=== PATIENT | female | born 1945 | race Caucasian/White ===

== ENCOUNTER 2024-03-03 14:05 | Inpatient (IN) | payer OTHER, SELFPAY ==
--- NOTE | ~2024-03-03 | XR_ITS ---
EXAMINATION: XR CHEST 2 VIEWS HISTORY: SOB R/O pneumonia COMPARISON: There are no prior studies for comparison. FINDINGS: PA and lateral views of the chest are submitted. The lateral view is limited by low lung volumes. The lungs are expanded and clear. There is no pleural effusion, pneumothorax, or pulmonary vascular congestion. The heart is normal in size. The aorta is tortuous. There is degenerative disc disease of the spine. XR/XR chest 2V IMPRESSION: Clear lungs. Electronically signed by: Micheal Barreto MD 04/21/2024 03:04 PM NOREEN MEZA
--- NOTE | ~2024-03-03 | CT_ITS ---
CLINICAL HISTORY: AMS CT head without contrast Comparison: CT/SR - CT HEAD/BRAIN WO IV CON - 04/25/24 18:51 EST Findings: Involutional change and nonspecific white matter hypodensity. No intracranial mass, midline shift, hydrocephalus, or acute hemorrhage. Orbits, paranasal sinuses, and mastoid air cells are unremarkable. No skull fracture Impression: 1. No acute findings This document has been electronically signed by: Leonie Juarez MD on 05/13/2024 18:30:13
--- NOTE | ~2024-03-03 | CT_ITS ---
CLINICAL HISTORY: ams CT head without contrast Comparison: CT/[place]/SR - CT HEAD/BRAIN WO IV CON - 05/23/24 10:14 EDT Findings: Age-appropriate atrophy is again identified. The size and shape of the ventricular system is within normal limits for this degree of atrophy. Unchanged areas of low-attenuation within the deep white matter. Plummer-white differentiation is well preserved. No midline shift or mass effect. No intracranial hemorrhage. 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 IMPRESSION: 1. No acute intracranial findings. Specifically, no hemorrhage or acute territorial infarct. This document has been electronically signed by: Trell Schwab MD on 06/02/2024 07:19:09
--- NOTE | ~2024-03-03 | XR_ITS ---
CLINICAL HISTORY: Fall in room 5 view, pelvis and bilateral hips Comparison: None Findings: No acute fracture or dislocation. Degenerative changes of the lower lumbar spine. The soft tissues are unremarkable. IMPRESSION: No acute findings. This document has been electronically signed by: Srinath Coburn MD on 04/25/2024 19:41:33
--- NOTE | ~2024-03-03 | CT_ITS ---
CLINICAL HISTORY: Hypoxia and tachycardia CT angiography chest with contrast. 3D Postprocessing. Comparison: None Findings: The heart is top normal in size. RV/LV ratio is normal. No aneurysm of thoracic aorta. Main pulmonary artery is within normal limits in size. No acute central pulmonary embolus. Somewhat limited evaluation of peripheral pulmonary emboli especially toward the bases. Apparent ground-glass opacities are demonstrated which could be artifactual due to motion but the possibility of mild atypical pneumonia or edema not excluded. Bilateral basilar mild subsegmental atelectasis versus scarring. No pleural effusion or pneumothorax Thyroid is small. Thoracic esophagus within limits. The visualized upper abdomen demonstrates no acute process No acute osseous findings IMPRESSION: 1. No pulmonary emboli with somewhat limited evaluation of peripheral pulmonary embolism especially toward the lung bases. 2. Mild ground-glass opacities could be artifactual or may represent mild edema or atypical pneumonia. This document has been electronically signed by: Callie Mart MD on 05/29/2024 21:36:11
--- NOTE | ~2024-03-03 | CT_ITS ---
CLINICAL HISTORY: head strike, occipital CT of the head without intravenous contrast Comparison: CT/SR - CT HEAD/BRAIN WO IV CON - 05/13/24 17:58 EDT Findings: The ventricles and sulci are prominent, consistent with generalized cerebral parenchymal volume loss. The ventricles are symmetric and the basilar cisterns are intact. Mild periventricular, deep and subcortical white matter hypodensities are nonspecific but statistically reflect the sequela of chronic small vessel ischemic change. No intracranial hemorrhage, extra-axial fluid collection, midline shift or mass-effect is evident. No evidence of acute large vessel or territorial ischemia. Brainstem and cerebellum unremarkable. Vascular calcifications indicate intracranial atherosclerosis. The imaged portion of the paranasal sinuses are clear. No mastoid effusions are demonstrated. The orbital contents are unremarkable. Calvarium is intact. Hyperostosis frontalis. Impression: 1. No CT evidence of acute intracranial abnormality. 2. Cerebral volume loss, intracranial atherosclerotic disease and mild sequela of chronic small vessel ischemic disease. This document has been electronically signed by: Kody Perez MD on 05/23/2024 11:28:49
--- NOTE | ~2024-03-03 | CT_ITS ---
CLINICAL HISTORY: Fall in room with possible headstrike CT cervical spine without contrast Comparison: None Findings: Normal vertebral body alignment. Straightening of the cervical lordosis with multilevel degenerative changes of the cervical spine. No acute fractures or dislocations. No acute findings on limited view of the intracranial contents. No cervical fluid collections or masses. No consolidation or effusion at the lung apices. IMPRESSION: No acute findings. This document has been electronically signed by: Srinath Coburn MD on 04/25/2024 19:47:29
--- NOTE | ~2024-03-03 | CT_ITS ---
CLINICAL HISTORY: desaturation CT chest without contrast Comparison: CR/SR - XR CHEST 2V - 04/21/24 14:51 EST Findings: Examination limited and degraded by motion artifact. The heart size is normal. No significant pericardial effusion. Atherosclerotic vascular disease. No aneurysm of thoracic aorta. Limited evaluation of lung parenchyma due to motion artifact. Apparent mild ground-glass opacities which could be artifactual. Bilateral basilar mild opacities likely subsegmental atelectasis versus scarring. No consolidation, pleural effusion or pneumothorax. Thyroid is small. Thoracic esophagus within normal limits. The visualized upper abdomen demonstrates no acute process. No acute fractures. Degenerative changes of the spine. IMPRESSION: 1. Evaluation limited by motion artifact. Apparent mild ground-glass opacities could be artifactual. 2. Mild bilateral basilar subsegmental atelectasis versus scarring. This document has been electronically signed by: Callie Mart MD on 05/29/2024 17:23:18
--- NOTE | ~2024-03-03 | CT_ITS ---
CLINICAL HISTORY: Fall with possible headstrike CT Brain without contrast Comparison: None FINDINGS: Cortical sulci: There is diffuse prominence of the cortical sulci compatible with age-related atrophy. Ventricles: Normal for age Brain parenchyma: There is patchy lucency throughout the deep white matter indicating chronic microvascular leukomalacia. Small left lacunar infarction. Extra axial spaces: Normal Posterior Fossa: Normal Extracranial soft tissues: Normal Additional abnormality: None IMPRESSION: Age-related atrophy with chronic microvascular leukomalacia. No hemorrhage, mass effect, or acute findings identified. This document has been electronically signed by: Srinath Coburn MD on 04/25/2024 19:42:29
--- NOTE | ~2024-03-03 | CT_ITS ---
CLINICAL HISTORY: AMS CT angiography head and neck with contrast. MIP postprocessing. Comparison: CT/SR - CT HEAD FOR STROKE - 06/02/24 07:01 EDT Findings: Aortic arch and cervical great vessels are patent with no aneurysm, dissection, hemodynamically significant stenoses, or occlusion. Dominant left vertebral artery. Intracranial arteries are patent. No aneurysm, dissection, hemodynamically significant stenoses, or occlusion. origin to the left posterior cerebral artery. No abnormal intracranial enhancement. Air-filled distention of the proximal thoracic esophagus with mild esophageal wall thickening. Nonspecific areas of hazy density within the lung apices. Small left pleural effusion. No acute bony lesions. Moderate to severe degenerative change throughout the cervical spine. IMPRESSION: 1. No large vessel occlusion or hemodynamically significant stenosis identified. 2. Vascular variant anatomy as above. 3. Air-filled distention of the thoracic esophagus with esophageal wall thickening suggesting esophageal dysmotility or esophageal narrowing with esophagitis. Barium esophagram could further evaluate. This document has been electronically signed by: Trell Schwab MD on 06/02/2024 07:49:57
[2024-03-03 14:15] VITALS: BP 126/62; PULSE 59; O2SAT 96
--- NOTE | 2024-03-03 14:15 | ED.GENADULT ---
HPI - General Adult General Chief complaint: Behavioral Concerns Stated complaint: INC AGGRESSION Time Seen by Provider: 03/03/24 14:15 Source: patient and EMS Mode of arrival: EMS Limitations: physical limitation (patient has slurred speech / deficit at baseline after subdural hematoma) History of Present Illness ED Provider: Phylicia Rojas PA-C HPI narrative: Patient is a 78 year old assigned female at with a history of subdural hemorrhage, dementia, HLD, glaucoma, hearing loss, slurred speech, epilepsy, and hypothyroidism presenting to the emergency department today with increased aggression towards the staff at her longterm facility. Patient states that she has no complaints at this time. Related Data Allergies Allergy/AdvReac Type Severity Reaction Status Date / Time sulfamethoxazole Allergy Unknown Verified 03/03/24 14:32 [From Sulfamethoxazole-Trimethoprim] trimethoprim Allergy Unknown Verified 03/03/24 14:32 [From Sulfamethoxazole-Trimethoprim] Review of Systems Constitutional: Constitutional: Reports no additional constitutional complaints, Denies chills, Denies fever(s) and Denies night sweats Eyes: Eyes: Reports no additional eye complaints, Denies blurry vision, Denies change in vision, Denies diplopia, Denies eye discharge, Denies loss of vision and Denies eye pain ENT: Denies dizziness Cardiovascular: Cardiovascular: Reports no additional cardiovascular complaints, Denies chest pain, Denies lightheadedness, Denies Loss of Consciousness and Denies dyspnea Respiratory: Respiratory: Reports no additional respiratory complaints and Denies dyspnea Gastrointestinal: Gastrointestinal: Reports no additional gastrointestinal complaints, Denies abdominal pain, Denies melena, Denies hematochezia, Denies change in bowel habits and Denies change in stool character Genitourinary: Genitourinary: Denies hematuria, Denies urinary frequency, Denies dysuria, Denies urinary incontinence, Denies urinary hesitancy and Denies urinary urgency Musculoskeletal: Musculoskeletal: Reports no additional musculoskeletal complaints, Denies numbness and Denies tingling Neurologic: Reports confusion (chronic for the patient - per her demented baseline), Denies dizziness, Denies loss of vision, Denies numbness and Denies tingling Psychiatric: Psychiatric: Reports no additional psychiatric complaints and Reports confusion (chronic for the patient - per her demented baseline) Endocrine: Endocrine: Reports no additional endocrine complaints Hematologic/Lymphatic: Hematologic/Lymphatic: Reports no additional hematologic/lymphatic complaints Allergic/Immunologic: Allergic/Immunologic: Reports no additional allergic/immunologic complaints PMFSH Past Medical History Attestation statement: The following information was validated with the patient. Source: old records reviewed, nursing notes reviewed and other (SNF staff provided additional history) Social History Social History Alcohol intake: former Smoked in Last 30 Days: No Use of substances other than those prescribed or required for medical reasons: No Advance Directives: No Advance Directives Information Provided: Yes Physical Exam ED Vital Signs: Vital Signs - 24 hr 03/03/24 14:28 Temperature 97.9 F Pulse Rate 71 Respiratory Rate 18 Blood Pressure 144/84 H Pulse Oximetry 96 Oxygen Delivery Method Room Air BMI result Body Mass Index 23.3 Const General: confusion (chronic for the patient - per her demented baseline) Nutritional Appearance: well nourished Orientation/consciousness: oriented to person and confusion (chronic for the patient - per her demented baseline) Limitations: no limitations HENMT Head: Yes normal to inspection and Yes atraumatic Ears: hearing grossly normal bilaterally and external ears normal General nose exam: Normal external nose present, no nasal discharge noted and no epistaxis Face and sinus: Yes normal facial exam, No abrasion and No laceration Mouth: Normal oral and palatal mucosa present, no drooling and no muffled voice Eyes General: appearance normal, both eyes and all related structures Periorbital: periorbital findings normal Eyelids: Yes eyelids normal Conjunctivae: conjunctivae normal Pupils: Equal, round and reactive pupils present EOM: EOMs intact bilaterally Neck Neck: Yes normal visual inspection, Yes full ROM and Yes no lymphadenopathy Chest Chest palpation & inspection: normal inspection of the chest Resp Effort & Inspection: normal respiratory effort and able to speak in complete sentences GI Inspection: Yes normal to inspection Neuro Other: left sided facial droop - chronic for the patient, not acute. General: oriented to person and confusion (chronic for the patient - per her demented baseline) Cranial nerves: Yes Equal, round and reactive pupils present Extrem General: Yes normal to inspection, Yes full ROM and Yes capillary refill normal Psych Appearance: grossly normal Mental Status: mental status grossly normal Affect: normal affect Attitude: cooperative Thought process: Normal thought process present Thought content: Normal thought content present Insight: Good insight present (Psych) Medications Administered Discontinued Medications Generic Name Dose Route Start Last Admin Trade Name Lenora PRN Reason Stop Dose Admin Olanzapine 5 mg 03/03/24 14:52 03/03/24 14:58 Olanzapine 5 Mg Tablet PO 03/03/24 14:53 5 mg ONCE ONE Administration Medical Decision Making Medical Decision Making [facility] Narrative: Patient is a 78 year old assigned female at with a history of subdural hemorrhage, dementia, HLD, glaucoma, hearing loss, slurred speech, epilepsy, and hypothyroidism presenting to the emergency department today with increased aggression towards the staff at her longterm facility. Patient's physical exam is consistent with her baseline. I reviewed the patient's [facility] medical records. Patient has been seen numerous times for increased aggression to staff with a complete and thorough medical work up showing no acute process for this agitation and determined to be her vascular dementia. Patient's most recent head CT from 03/01/2024 showed no acute intracranial process. Patient's labs from 02/27/2024 showed no acute process as well as a normal urine with no evidence of infection. I suspect the patient is having intermittent episodes of agitation towards the longterm staff and thus they continue to send her to various emergency departments for evaluation and have been unhappy so far with what has been done to address the agitation. When reviewing the patient's medications - she is on multiple doses of Zyprexa 2.5mg, Lorazepam, Depakote, and Trazadone. Patient was mostly calm while in the department, speaking in her normal (semi slow and slurred) speech pattern - declining any complaints and requesting to go home. Patient did become increasingly tearful when asking to get home and slightly agitated as she was told she could not leave the department. PO Zyprexa ordered. Patient's labs are unremarkable. Patient needs to be evaluated by psychiatry. Case management aware of patient and will follow. I called and spoke with Jana ([phone]), the patient's daughter, who expressed frustration that the patient has been sent to multiple facilities for these episodes and is not improving. She stated the SNF staff spoke with her today and informed her that if the patient's insurance doesn't agree to pay for treatment - she'd be immediately discharged. Daughter states that she agrees with patient having basic labs and a psychiatry evaluation performed. Daughter states that she will keep her phone on / nearby for any possible questions / concerns from [facility] staff. Patient's UA is pending. Patient signed out to evening MESSI pending urine and psychiatry consult. Differential Diagnosis Differential Diagnoses: The differential diagnosis associated with the presentation includes Agitation Aggressive outbursts Admission/Observation Consideration of admission/observation: Escalation of care including admission/observation considered Patient's disposition will be determined after UA results, psychiatric evaluation, and case management evaluation. Lab Data [facility] Lab Attestation statement: I reviewed the patient's lab results. My interpretation of these results are in the [facility] Rationale portion of this note. 03/03/24 14:57 03/03/24 14:57 Labs: Lab Results 03/03/24 Range/Units 14:57 WBC 9.0 (4.8-10.8) X10*3/uL RBC 3.96 L (4.20-5.50) X10*6/uL Hgb 12.2 (12.0-16.0) g/dl Hct 37.7 (37.0-47.0) % MCV 95.2 (80.0-98.0) fL MCH 30.8 (27.0-33.0) pg MCHC 32.4 (31.0-35.0) g/dl RDW 16.4 H (11.0-16.0) % Plt Count 136 L (160-400) X10*3/uL MPV 11.4 (9.4-12.3) fL Immature Gran % (Auto) 0.2 (0.0-0.4) % Neut % (Auto) 34.1 L (45-73) % Lymph % (Auto) 55.1 H (20-40) % Latimer % (Auto) 9.4 (2-11) % Eos % (Auto) 0.9 (0-4) % Baso % (Auto) 0.3 (0-2) % Lymph # (Auto) 5.0 H (1.2-4.9) X10*3/uL Latimer # (Auto) 0.9 (0.1-1.2) X10*3/uL Eos # (Auto) 0.1 (0.0-0.4) X10*3/uL Baso # (Auto) 0.0 (0.0-0.2) X10*3/uL Abs Immat Gran (auto) 0.02 (0.00-0.03) X10*3/uL Absolute Neuts (auto) 3.1 (2.0-8.3) x10*3/uL Absolute Nucleated RBC 0.000 (0.0-0.012) X10*3/uL Nucleated RBC % (auto) 0.0 (0.0-0.2) /100WBC Sodium 143 (135-145) mmol/L Potassium 4.0 (3.3-5.1) mmol/L Chloride 107 (96-108) mmol/L Carbon Dioxide 30 H (22-29) mmol/L Anion Gap 10 L (12-20) BUN 22 H (9-16) mg/dL Creatinine 0.91 (0.5-1.4) mg/dL Estim Creat Clear Calc 45.1 Estimated GFR 60 Random Glucose 94 (60-115) mg/dL Calcium 8.7 (8.4-10.2) mg/dL Magnesium 2.4 (1.6-2.6) mg/dL Total Bilirubin 0.6 (0.0-1.0) mg/dL AST 24 (5-31) U/L ALT 19 (0-31) U/L Total Protein 6.2 L (6.5-8.0) g/dL Albumin 3.5 (3.5-5.0) g/dL Influenza Type A (PCR) NEGATIVE (Negative) Influenza Type B (PCR) NEGATIVE (Negative) RSV RNA Qual (PCR) NEGATIVE (Negative) SARS-CoV-2 RNA (RT-PCR) NEGATIVE (Negative) Independent Historian Clinical information obtained from an independent historian. History obtained from or confirmed by: EMS (EMS provided additional history) and Other (patient's daughter provided additional history) Discharge Plan Discharge Clinical Impression: Dementia, Aggression Patient Disposition: Still a Patient Print Language: Estonian
[2024-03-03 14:28] VITALS: BP 144/84; PULSE 71; RESP 18; TEMP 36.6; O2SAT 96; BMI 23.3
[2024-03-03] MEDS: OLANZapine 5 MG TABLET PO ×2 (14:58→22:04)
[2024-03-03 15:02] LABS: MANUAL DIFF FLAG NO
[2024-03-03 15:05] LABS: Basophils Percent Auto 0.3 % (0-2); Eosinophils Absolute Auto 0.1 X10*3/uL (0.0-0.4); Eosinophils Percent Auto 0.9 % (0-4); Hematocrit 37.7 % (37.0-47.0); Hemoglobin 12.2 g/dl (12.0-16.0); Imm Gran Abs Auto 0.02 X10*3/uL (0.00-0.03); Imm Gran Pct Auto 0.2 % (0.0-0.4); Lymphocytes Percent Auto 55.1 % (20-40); Mean Corpuscular HGB Conc 32.4 g/dl (31.0-35.0); Mean Corpuscular Hemoglobin 30.8 pg (27.0-33.0); Mean Corpuscular Volume 95.2 fL (80.0-98.0); Mean Platelet Volume 11.4 fL (9.4-12.3); Monocytes Absolute Auto 0.9 X10*3/uL (0.1-1.2); Monocytes Percent Auto 9.4 % (2-11); Neutrophils Absolute Auto 3.1 x10*3/uL (2.0-8.3); Neutrophils Percent Auto 34.1 % (45-73); Platelet Count 136 X10*3/uL (160-400); Red Blood Count 3.96 X10*6/uL (4.20-5.50); Red Cell Distribution Width 16.4 % (11.0-16.0)
[2024-03-03 15:27] LABS: Alanine Aminotransferase 19 U/L (0-31); Albumin Level 3.5 g/dL (3.5-5.0); Anion Gap 10 (12-20); Aspartate Amino Transferase 24 U/L (5-31); Bilirubin Total 0.6 mg/dL (0.0-1.0); Blood Urea Nitrogen 22 mg/dL (9-16); Calcium 8.7 mg/dL (8.4-10.2); Carbon Dioxide 30 mmol/L (22-29); Chloride 107 mmol/L (96-108); Creatinine Clr Calc Pharmacy 45.1; Estimated Glomerular Filt Rate 60; Glucose Random 94 mg/dL (60-115); Magnesium 2.4 mg/dL (1.6-2.6); Sodium 143 mmol/L (135-145); Total Protein 6.2 g/dL (6.5-8.0)
[2024-03-03 15:40] LABS: Influenza A PCR NEGATIVE (Negative); Influenza B PCR NEGATIVE (Negative); Resp Syncy Virus RNA Qual PCR NEGATIVE (Negative); SARS COV2 PCR INHOUSE NEGATIVE (Negative)
[2024-03-03 16:03] LABS: Alkaline Phosphatase 120 U/L (39-117)
[2024-03-03 16:19] LABS: Appearance Urine Clear; Color Urine Yellow; Glucose Urine UA Negative (Negative); Leukocyte Esterase Urine Moderate (2+) (Negative); Nitrite Urine Negative (Negative); UMIC TRIGGER UACC YES; Urine Blood Negative (Negative); Urine Ketones Negative (Negative); Urine Protein Negative (Neg-Trace)
--- NOTE | 2024-03-03 17:41 | MHC.CM.ED ---
Addendum entered by Sarah Cardona 03/03/24 19:41: Return referral placed via [facility] to [facility]. Original Note: CM received consult from Phylicia LAO. Pt was at [facility] for STR. Was admitted there from [facility] on 02/18/24. Earlier in January, patient was at [facility] for a fall with a hx of subdural hemorrhage. Pt has dementia. She was sent from [facility] for increasing aggression. Per medical record, pt has been [place] [facility] [place] at [place]. HCP is Angelo Mascorro ([phone]) and HCP #2 Jana Mascorro (daughter) [phone]). [facility] on file-DNR/DNI with dialysis and hydration Pt is medically cleared. Pt is confused. Bed alarm and camera for safety. Pt is alert to self only. Continues to yell about going home. Has been able to be re-directed. Pysch consult pending.
--- NOTE | 2024-03-03 17:48 | PC.NURSE ---
Walked patient x2 to bathroom with x1 staff assist. gait steady. Patient voided x 2. Patient denies pain. Called daughter per patients request, patient currently on phone with daughter
--- NOTE | 2024-03-03 18:23 | PC.NURSE ---
Camera in place for safety, patient feeding herself dinner independently . Daughter updated on current plan of care
[2024-03-03 18:50] LABS: Bacteria Urine None Seen (None Seen); Hyaline Casts Urine 0-2 /LPF (0-2); RBC Urine 0-2 /HPF (0-2); Squamous Epithelial Cell Urine 0-2 /HPF (0-2); UACC Culture Trigger YES
--- NOTE | 2024-03-03 19:11 | PC.NURSE ---
report received from Norma. Report given to Cristal in overflow. PT transferred to Overflow 2
--- OUTSIDE RECORDS SUMMARY | 2024-03-03 19:19 | XMS_ITS | Continuity of Care Document ---
Author Organization [facility] Address [address] [place] [address]- Care Team Providers Care Store Person Name Role Phone Hunter Carvalho MD Primary Care Physician [phone] [id number] Date(s): 03/01/24 - 03/02/[address] [address]- Discharge Disposition: A-D/C Home Attending Physician: Nick Mckinney MD Admitting Physician: Nick Mckinney MD Referring Physician: Not on Staff, Referring MD Encounter Type: Disch ES Allergies, Adverse Reactions, Alerts Substance Criticality Severity Reaction Reaction Severity Status sulfamethoxazole-trimethoprim Active Immunizations Given and Recorded Vaccine Date Status Refusal Reason Influenza Vaccine (oldterm) 1 11/15/08 Given 1Admin Note: vis given dated 10/03 Medications bisacodyl 10 mg rectal solution 1 each = 10 mg, Rectally, Daily, 0 Refills, Maintenance, 03/01/24 10:53:00 PM EST, Partial fill upon patient request if the prescription is for a schedule II opioid drug. Start Date: 03/01/24 Status: Ordered Repeat number: 1 divalproex sodium 250 mg oral tablet, extended release 1 tablet = 250 mg, By Mouth, 3 times a day, TAKE 1 TABLET BY MOUTH TWICE A DAY, # 90 tablet, 0 Refills, Maintenance, 03/01/24 9:53:00 AM EST, ER Tablet, Partial fill upon patient request if the prescription is for a schedule II opioid drug. Start Date: 03/01/24 Stop Date: 03/31/24 Status: Ordered Quantity: 90.0 Unit: tablet Repeat number: 1 donepezil 5 mg oral tablet 5 mg, 1, tablet, By Mouth, Daily at bedtime, # 90 tablet, Refills 0, Maintenance, 03/01/24 10:54:00 PM EST, Partial fill upon patient request if the prescription is for a schedule II opioid drug. Start Date: 03/01/24 Status: Ordered Quantity: 90.0 Unit: tablet Repeat number: 1 donepezil 5 mg oral tablet TAKE 1 TABLET BY MOUTH EVERYDAY AT BEDTIME Start Date: 04/10/23 Status: Ordered Repeat number: 1 famotidine 20 mg oral tablet 20 mg, 1, tablet, By Mouth, Daily at bedtime, Refills 0, Maintenance, 03/01/24 10:56:00 PM EST, Partial fill upon patient request if the prescription is for a schedule II opioid drug. Start Date: 03/01/24 Status: Ordered Repeat number: 1 famotidine 20 mg oral tablet TAKE 1 TABLET BY MOUTH EVERY DAY AT BEDTIME NEEDED FOR HEARTBURN Start Date: 04/10/23 Status: Ordered Repeat number: 1 Flonase 0.05 mg/inh nasal spray 1 sprays, Nares, Both, Daily, # 1 units, 5 Refills, 08/30/08 11:30:54 AM EDT Start Date: 08/30/08 Stop Date: 02/26/09 Status: Ordered Quantity: 1.0 Unit: Units Repeat number: 6 Knee high compression stockings Knee high compression stockings, See Instructions, # 1 pair, Refills 1, Tot. Refills 1, wear stockings while at your job, chronic venous stasis, edema, 08/30/08 11:39:45 AM EDT Start Date: 08/30/08 Status: Ordered Quantity: 1.0 Unit: pair Repeat number: 2 levothyroxine 0.075 mg oral tablet 75 mcg, 1, tablet, By Mouth, Daily, # 90 tablet, 4 Refills Start Date: 01/04/09 Stop Date: 03/30/10 Status: Ordered Quantity: 90.0 Unit: tablet Repeat number: 5 Lipitor Tablet = 20 mg, By Mouth, Daily, # 90 tablet, 3 Refills, Maintenance Start Date: 05/29/10 Stop Date: 05/24/11 Status: Ordered Quantity: 90.0 Unit: tablet Repeat number: 4 loratadine 10 mg oral tablet 10 mg, 1, tablet, By Mouth, Daily Start Date: 02/12/24 Status: Ordered Repeat number: 1 LORazepam 0.5 mg oral tablet 0.5 tablet = 0.25 mg, By Mouth, 2 times a day, 0 Refills, Maintenance, 03/01/24 10:57:00 PM EST, Tablet, Partial fill upon patient request if the prescription is for a schedule II opioid drug. Start Date: 03/01/24 Status: Ordered Repeat number: 1 Milk of Magnesia = 2,400 mg, By Mouth, Daily, 0 Refills, Maintenance, 03/01/24 10:58:00 PM EST, Partial fill upon patient request if the prescription is for a schedule II opioid drug. Start Date: 03/01/24 Status: Ordered Repeat number: 1 oxybutynin 15 mg/24 hr oral tablet, extended release 1 tablet = 15 mg, By Mouth, Daily, # 30 tablet, 0 Refills, Maintenance, 03/01/24 11:00:00 PM EST, ER Tablet, Partial fill upon patient request if the prescription is for a schedule II opioid drug. Start Date: 03/01/24 Status: Ordered Quantity: 30.0 Unit: tablet Repeat number: 1 oxybutynin 15 mg/24 hr oral tablet, extended release TAKE 1 TABLET BY MOUTH EVERY DAY Start Date: 04/10/23 Status: Ordered Repeat number: 1 timolol maleate 0.5% ophthalmic solution INSTILL 1 DROP INTO BOTH EYES EVERY DAY Start Date: 04/10/23 Status: Ordered Repeat number: 1 Toprol XL 25 mg oral tablet, extended release 25 mg, 1, tablet, By Mouth, Daily, # 30 tablet, Refills 0, Tot. Refills 0, Maintenance, 03/01/24 11:15:00 AM EST, Do Not Route, Partial fill upon patient request if the prescription is for a schedule II opioid drug. Start Date: 03/01/24 Status: Ordered Quantity: 30.0 Unit: tablet Repeat number: 1 Trazodone Tablet 25 mg, By Mouth, Daily at bedtime, Refills 0, Maintenance, 03/01/24 11:01:00 PM EST, Partial fill upon patient request if the prescription is for a schedule II opioid drug. Start Date: 03/01/24 Status: Ordered Repeat number: 1 Tylenol 325 mg oral tablet 975 mg, By Mouth, Every 8 hours, Refills 0, Maintenance, 02/18/24 2:26:00 PM EST, Partial fill uponpatient request if the prescription is for a schedule II opioid drug. Start Date: 02/18/24 Status: Ordered Repeat number: 1 ZyPREXA Zydis 5 mg oral tablet, disintegrating = 2.5 mg, By Mouth, 2 times a day, PRN Agitation, # 15 tablet, 0 Refills, Maintenance, 03/01/24 9:12:00 AM EST, DIS Tablet, Partial fill upon patient request if the prescription is for a schedule II opioid drug. Start Date: 03/01/24 Stop Date: 03/31/24 Status: Ordered Quantity: 15.0 Unit: tablet Repeat number: 1 Problem List Condition Confirmation Course Effective Dates Status H ealth Status Informant Bladder muscle dysfunction - overactive Confirmed Active Dementia Confirmed Active Depression Confirmed Active Glaucoma Confirmed Active H/O: hypothyroidism Confirmed Active Hard of hearing Confirmed Active HLD - Hyperlipidemia Confirmed Active Overactive bladder Confirmed Active Seizure disorder Confirmed Active Vital Signs Most recent to oldest [Reference Range]: 1 2 3 Height 153 cm (03/02/24 12:27 AM) 153 cm (03/01/24 10:37 PM) 153 cm (03/01/24 10:33 PM) Weight 63.1 kg (03/02/24 12: AM) 63.1 kg (03/01/24 10:37 PM) Oxygen Saturation [94-100 %] 99 % (03/02/24 12: AM) 94 % (03/01/24 10:37 PM) Pulse Rate [55-90 bpm] 69 bpm (03/02/24 12:27 AM) 63 bpm (03/01/24 10:37 PM) Body Mass Index [18.5-24.99 kg/m2] 26.96 kg/m2 *H* (03/02/24 12: AM) Blood Pressure [90-138/55-84 mm Hg] 109/74mm Hg (03/02/24 12: AM) 110/69mm Hg (03/01/24 10:37 PM) Respiratory Rate [16-30 br/min] 18 br/min (03/02/24 12:27 AM) 18 br/min (03/01/24 10:37 PM) Temperature [96.8-100.4 DegF] 97.4 DegF (03/01/24 10:37 PM) Mode of Delivery (Oxygen) Nasal cannula (03/02/24 12:27 AM) Room air (03/01/24 10:37 PM) Blood pressure sites Arm, left (03/02/24 12:27 AM) Arm, left (03/01/24 10:37 PM) Temperature Route Oral (03/02/24 12:27 AM) Oral (03/01/24 10:37 PM) Dry Weight 63.1 kg (03/02/24 12:27 AM) 63.1 kg (03/01/24 10:37 PM) Weight Obtained Via Bed scale (03/01/24 10:37 PM) Dry Weight Obtained Via Bed scale (03/01/24 10:37 PM) Social History Social History Type Response Smoking Status Never (less than 100 in lifetime) entered on: 04/22/23 Sex Sex Representation Female (finding) Note * Faye HERNANDEZ, Nick De Luna: PERFORM Event Display: Patient Education Leaflets Authored Date: [id number] Dementia and Caregiver Support ?? [id number] Dementia and Caregiver Support Dementia is a long-term (chronic) condition that affects the brain. It causes loss of memory and thinking functions. Some forms of dementia are from degeneration of the brain. They get worse with time. Other forms stay the same for long periods of time. A person with dementia may have trouble recognizing familiar people and places, or knowing what day it is. The person???s memory, judgment, and decision-making may also be affected. In severe cases, the person may not respond when someone talks to them. The most common form of dementia is Alzheimer disease (AD). Healthcare providers don???t fully understand what causes AD. It has no cure. But medicines can treat some of the symptoms. Some of the less common causes for dementia are curable. So it???s important to have a complete health assessment to look for conditions that can be treated. Home care These tips can help you care for a person with dementia at home: ??? A responsible person must be with the person who has advanced dementia at all times.??They should not be left alone or unsupervised. ??? In the case of advanced dementia, keep all medicines in a secure place. They should be under the caregiver???s control. A person with advanced dementia shouldnot be allowed to take their own medicines. This needs to be supervised by the caregiver. Here are ways to help a person with dementia: Activities Keep to a daily routine. Changes in routine can cause stress for someone with dementia. Make a schedule for common daily tasks. These include bathing, dressing, taking medicines, eating meals, going for walks, and going to bed. Communication When talking with a person with dementia, talk slowly and clearly. Use a gentle tone of voice. Choose short, simple words and sentences. Ask 1 question at a time. Don???t interrupt, criticize, or argue. Be calm and supportive. Use friendly facial expressions. Use pointing and touching to help communicate. If the person has a loss of long-term memory, don???t ask questions about past events. Instead, talk about what's happening now. Behavioral tips Use lists, signs, family photos, clocks, and calendars as memory aids. Label cabinets and drawers. Try to distract, not confront, the person. When they become frustrated or upset, direct the person???s attention to eating or some other interesting activity. Windows can help the person know if it's night or day and what season it is. Medical-legal tips Talk with your healthcare provider or sales floor team member about getting a power of regulatory attorney for healthcare and for financial decisions. It's best to do this while the person can still sign legal documents and make their own legal decisions. Otherwise, you'll need a court order. ?? Support for the caregiver As the caregiver, you'll need a lot of support for yourself. Caring for a person with dementia is afull-time job. It can drain your emotions and lead to frustration and anger toward the one you love. It is common to have feelings of grief over losing the relationship that you once had. As a caregiver to someone with dementia, you are at higher risk for depression, anxiety, and stress. Here are some tips to help you cope with being a caregiver: ??? Learn about dementia and AD so you know what to expect. ??? Find out about the resources in your community, including adult daycare programs. Ask your healthcare provider for a referral to a geriatric social worker, if needed. ??? Take care of yourself with a healthy diet, exercise, and plenty of rest. ??? Ask for help. Share some of the caregiver duties with family and friends. ??? Make personal time for yourself. This is vital. Consider hiring an in-home sitter or home health aide. ??? Get counseling or join a caregiver???s support group. Don't isolate yourself or try to cope with this alone. In a support group, you can learn from others in a similar situation. ??? Visit the Alzheimer???s Association website at www.alz.org for more information. ?? Follow-up care Follow up with the person???s healthcare provider, or as advised. ?? When to get medical care Call your healthcare provider right away??if any of these occur: ??? Frequent falls ??? The person refuses to eat or drink ??? Headache or nausea that gets worse, or repeated vomiting after a fall ??? Unexplained fever of 100.4?? F (38.0?? C) or higher, or as advised ?? Call 911 Call 911 if any of these occur: ??? Slurred speech, or trouble speaking, walking, or seeing ??? Fainting spell or dizziness ??? Seizure symptoms???(these include staring spells, lip-smacking, twitching, or sudden changes in mental status) ??? Violent behavior (call police) or behavior becomes too hard to manage at home ??? Increased drowsiness, or failure to respond normally ?? Last Reviewed Date: 2021 ?? 0520-1685 [employer]. All rights reserved. This information is not intended as a substitute for professional medical care. Always follow your healthcare professional's instructions. ?? Patient Care team information Care Team Personnel Name: Akanksha Nowak RN Position: [facility] RN Member Role: Primary Care Nurse Name: Brooke Smith RN Position: S RN Member Role: Primary Care Nurse Name: Mary Steele RN Position: S RN Member Role: Primary Care Nurse Name: Hunter Carvalho MD Position: [facility] Physician - Primary Care Member Role: PCP Address: [address] [place] [address] [address] [facility] [place] [address]- [place] [employer]: Name: Katelin Irwin RN Position: S RN Member Role: Primary Care Nurse Name: Chay Plascencia RN Position: S RN Member Role: Primary Care Nurse Name: Barbra Sadler RN Position: S RN Member Role: Primary Care Nurse Name: Kristy Aguiar RN Position: S RN Member Role: Primary Care Nurse Care Team Related Persons Name: BREANA TRENT Name: SANIYA TRENT Insurance Providers Guarantor name: JOSE MANUEL Health Plan Information #: 1 Payer: [facility] OPT Member Number: [id number] Policy Number: NA Group Number: [id number] Health Plan Information #: 2 Payer: [facility] Member Number: [id number] Policy Number: NA Group Number: [id number]
--- OUTSIDE RECORDS SUMMARY | 2024-03-03 19:19 | XMS_ITS | Continuity of Care Document ---
Author Organization [facility] ter Address [address] [place] [address]- Care Team Providers Care Mason Liner Name Role Phone Not on Staff, PCP Primary Care Physician Unavail able Encounter [facility] [facility] Date(s): 02/12/24 - 02/18/24 [facility] [address], [place] [address] Discharge Disposition: A-D/C Home Attending Physician: Manny Paige MD Admitting Physician: Mirza Scott DO Referring Physician: Not on Staff, Referring MD Encounter Type: Disch IP Allergies, Adverse Reactions, Alerts Substance Criticality Severity Reaction Reaction Severity Status sulfamethoxazole-trimethoprim Active Immunizations Given and Recorded Vaccine Date Status Refusal Reason Influenza Vaccine (oldterm) 1 11/15/08 Given 1Admin Note: vis given dated 10/03 Medications divalproex sodium 250 mg oral tablet, extended release TAKE 1 TABLET BY MOUTH TWICE A DAY Start Date: 04/10/23 Status: Ordered Repeat number: 1 donepezil 5 mg oral [...] Date: 02/12/24 Status: Ordered Repeat number: 1 oxybutynin 15 mg/24 hr oral tablet, extended release TAKE 1 TABLET BY MOUTH EVERY DAY Start Date: 04/10/23 Status: Ordered Repeat number: 1 timolol maleate 0.5% ophthalmic solution INSTILL 1 DROP INTO BOTH EYES EVERY DAY Start Date: 04/10/23 Status: Ordered Repeat number: 1 Tylenol 325 mg oral tablet 975 mg, By Mouth, Every 8 hours, Refills 0, Maintenance, 02/18/24 2:26:00 PM EST, Partial fill uponpatient request if the prescription is for a schedule II opioid drug. Start Date: 02/18/24 Status: Ordered Repeat number: 1 Problem List Condition Confirmation Course Effective Dates Status H ealth Status Informant Bladder muscle dysfunction - overactive Confirmed Active Depression Confirmed Active Glaucoma Confirmed Active H/O: hypothyroidism Confirmed Active HLD - Hyperlipidemia Confirmed Active Seizure disorder Confirmed Active Vital Signs Most recent to oldest [Reference Range]: 1 2 3 Height 160 cm (02/16/24 4:38 AM) 160 cm (02/15/24 8:42 PM) 160 cm (02/15/24 3:23 AM) Weight 52.0 kg (02/13/24 5:09 PM) 52.0 kg (02/13/24 4:56 PM) Oxygen Saturation [94-100 %] 98 % (02/18/24 3:00 PM) 97 % (02/18/24 11:00 AM) 100 % (02/18/24 7:00 AM) Pulse Rate [55-90 bpm] 79 bpm (02/18/24 3:00 PM) 72 bpm (02/18/24 11:00 AM) 62 bpm (02/18/24 7:00 AM) Body Mass Index [18.5-24.99 kg/m2] 20.31 kg/m2 (02/13/24 4:56 PM) Blood Pressure [90-138/55-84 mm Hg] 132/77mm Hg (02/18/24 3:00 PM) 107/62mm Hg (02/18/24 11:00 AM) 122/67mm Hg (02/18/24 7:00 AM) Respiratory Rate [16-30 br/min] 18 br/min (02/18/24 3:00 PM) 18 br/min (02/18/24 11:00 AM) 18 br/min (02/18/24 7:00 AM) Temperature [96.8-100.4 DegF] 98.2 DegF (02/18/24 3:00 PM) 98.4 DegF (02/18/24 11:00 AM) 97.4 DegF (02/18/24 7:00 AM) Mode of Delivery (Oxygen) Room air (02/18/24 3:00 PM) Room air (02/18/24 11:00 AM) Room air (02/18/24 7:00 AM) Blood pressure sites Arm, right (02/18/24 3:00 PM) Arm, right (02/18/24 11:00 AM) Arm, left (02/18/24 7:00 AM) Temperature Route Oral (02/18/24 3:00 PM) Temporal (02/18/24 11:00 AM) Oral (02/18/24 7:00 AM) Dry Weight 52.0 kg (02/13/24 4:56 PM) Weight Obtained Via Standing scale (02/13/24 4:56 PM) Dry Weight Obtained Via Standing scale (02/13/24 4:56 PM) Social History Social History Type Response Smoking Status Never (less than 100 in lifetime) entered on: 04/22/23 Sex Sex Representation Female (finding) Admission evaluation note * Taye HERNANDEZ, Myla: PERFORM Event Display: Admission Note Authored Date: [id number] Patient: ??PAULETTE TANNER ? Age:??78 Years?Sex:??Female?:??1945?? Chief Complaint/Reason for Consultation subdural hematoma, frequent falls, C5 fracture History of Present Illness 77-year-old female who??is hard of hearing and has a history??of overactive bladder, depression, glaucoma, hypothyroidism, hyperlipidemia, dementia on donepezil, and seizure disorder??presenting??as a transfer from [facility]??with??new subdural hematoma and C5 fracture??on CT scan??after??multi ple falls. ?? Patient was transferred??from??[facility]??where??she had an evaluation including CT scans??andlab work.?? Labs at [facility] were significant for troponin of??753 ng/L (normal high??of <54),??butotherwise unremarkable??BMP??and CBC. ??EKG??was normal.?? Repeat troponin here??was 89 ng/L, CMP??and CBC unremarkable.?? Normal TSH.?? EKG??also??not suggestive of acute??ischemia. ?? Patient is difficult to obtain history from but??she states that??she has a little bit of neck painbut otherwise??no significant pain. ??She does point to her bladder area when asked about other pain.?? Patient denies chest pain, trouble breathing, abdominal pain, or??pain in extremities.?? Patient states that??she is hungry and wants to eat something.?? She is also interested in a glass of water.?? She says she does she drink juice this morning and??has been drinking water.?? She does not remember her falls.?? She states that she wants to go home. ?? Further history obtained from daughter:??Patient has been weak and unstable??for a long time now. ??She moves very slowly.?? She describes??a process that has been going on for years where the patient goes into a comatose state??and just stands there for 30 seconds ??and then will come back.?When asked??if these are similar to when patient has her seizure??daughter states that??these are nothing like when she has seizures, when she has seizures she has??generalized tonic-clonic movements. ??Daughter??thinks that she needs to??live in a chcf and that she needs socialization.?? She is frustrated because she??does not know what??her??falls look like because her father will often??not tell her the truth about things.?? Daughter also thinks that her father should go into a home.?? Daughter notes that patient has had multiple falls. Review of Systems See HPI Objective ? Vital Signs?? Temperature: 97.5 DegF (02/12/24 10:26:00) Temperature Route: Oral (02/12/24 10:26:00) Pulse Rate: 61 bpm (02/12/24 13:00:00) Respiratory Rate: 16 br/min (02/12/24 13:00:00) Systolic Blood Pressure: 122 mm Hg (02/12/24 13:00:00) Diastolic Blood Pressure: 81 mm Hg (02/12/24 13:00:00) Mean Arterial Pressure: 95 mm Hg (02/12/24 13:00:00) Pulse Pressure: 41 mm Hg (02/12/24 13:00:00) Oxygen Saturation: 98 % (02/12/24 13:00:00) Mode of Delivery (Oxygen): Room air (02/12/24 13:00:00) Early Warning Score: 5 (02/12/24 13:00:47) ? Intake/Output? No Data Available ? Physical Exam Constitutional: Alert, in no distress. Mental Status: Oriented to person??but not place or time.?? Head: Normocephalic. Ear, Nose and Throat: Oropharynx clear, mucous membranes moist.?? Neck: Supple, full range of motion, large ecchymosis over back of neck, mild tenderness to palpation.?? Respiratory: Clear to auscultation. No wheezing, rales or rhonchi. Cardiovascular: Regular rate and rhythm. No murmurs, rubs or gallops. Gastrointestinal: Abdomen soft, non-tender, non-distended.?? Neurologic: Cranial nerves II-XII grossly intact. No focal neurological deficits.??Moves all extremities spontaneously.?? Skin: Large ecchymosis over back of neck.?? Musculoskeletal: 5/5 strength??of arms and legs bilaterally.??Contractures noted of left hand.?? Assessment/Plan Diagnoses Dementia ??(F03.90) Fall at home ??(W19.XXXA) Fracture of cervical vertebra, C5 ??(S12.400A) Glaucoma ??(H40.9) Hard of hearing ??(H91.90) Hyperlipidemia ??(E78.5) Hypothyroidism ??(E03.9) Overactive bladder ??(N32.81) Seizure disorder ??(G40.909) Subdural hematoma, post-traumatic ??(S06.5XAA) ?? Assessment:??77-year-old female who??is hard of hearing and has a history??of overactive bladder, depression, glaucoma, hypothyroidism, hyperlipidemia, dementia on donepezil, and seizure disorder??presenting??with a??new subdural hematoma and C5 fracture??on CT scan??after??multiple falls, undergoing further workup.? Fall at home (W19.XXXA) ?Complicated by??Subdural hematoma, post-traumatic (S06.5XAA),??Fracture of cervical vertebra, C5 (S12.400A),??Dementia (F03.90),??Hard of hearing (H91.90) ? Patient is currently at her neurologic baseline. Cardiac etiology for her falls has not entirely been ruled out.??She may be having cardiac related syncope??due to NSTEMI??given the elevated troponin levels.??Troponins have flattened however.??Patient's EKG is nonischemic.??Will obtain anecho and keep patient on cardiac monitoring.??Neurosurgery does not recommend surgical interventionat this time for the subdural hematoma and recommends medical management. For the C5 fracture, no C-collar necessary.? Plan -??Q4H??neuro checks -??Keep HOB elevated at 30 degrees or greater -??STAT CT head for decline in in neuro exam - If patient remains stable and chemical DVT ppx is indicated, this may be considered [address] - Obtain ECHO - Cardiac monitoring - Orthostatic vitals every shift - Will obtain B12 and folate levels?? - PT eval - OT eval - Social work consult for??Senior services to help the daughter??and patient - Avoid benzos and??antihistamines, as patient is high risk for delirium - Hold donepezil??as it may worsen??propensity for falls - Hold aspirin given??subdural hematoma??per??neurosurgery?? -??Bladder scan every shift to assess for urinary retention - Tylenol 975mg q8h scheduled??for pain control ?? Glaucoma (H40.9):??Continue timolol drops daily ?? Hyperlipidemia (E78.5):??Continue atorvastatin 20 mg daily ?? Hypothyroidism (E03.9):??Continue levothyroxine 75 mcg??daily ?? Seizure disorder (G40.909):??Continue??valproic acid ER 250 mg twice daily??no ?? Overactive bladder (N32.81):??Continue oxybutynin ER 15 mg daily ?? Quality Metrics VTE Prophylaxis:??Pneumoboots, holding DVT px??given subdural hematoma, can start tomorrow AM per neurosurgery ?VTE Prophylaxis Assessment:??VTE Prophylaxis Ordered Code Status:??FULL (presumed) ?Order Code Status:??Code Status Ordered Diet: Regular ? Chlo?MD Taye Internal Medicine & Pediatrics PGY-2 [facility]??& Louis S[facility]les ?? Patient seen and plan discussed with attending, Dr. Bundy Histories Allergies Allergies ?(Active and Proposed Allergies Only) sulfamethoxazole-trimethoprim? (Severity: Unknown severity, Onset: Unknown) ? Past Medical History/Problem List Active Problems(6) Bladder muscle dysfunction - overactive Depression Glaucoma H/O: hypothyroidism HLD - Hyperlipidemia Seizure disorder ? Past Surgical History No surgery history documented. ? Social History Alcohol Details:??Use: Never. Tobacco Details:??Use: Never (less than 100 in lifetime). ? Family History No Family History documented. ? History No previous pregnancies history have been recorded ? Medications Home Medications Aspirin (Aspirin Low Dose 81 mg oral delayed release tablet)?TAKE 1 TABLET BY MOUTH EVERY DAY Atorvastatin (Lipitor Tablet)?20?Milligram?By Mouth?Daily?for 90?Days Divalproex Sodium (divalproex sodium 250 mg oral tablet, extended release)?TAKE 1 TABLET BY MOUTH TWICE A DAY Donepezil (donepezil 5 mg oral tablet)?TAKE 1 TABLET BY MOUTH EVERYDAY AT BEDTIME Famotidine (famotidine 20 mg oral tablet)?TAKE 1 TABLET BY MOUTH EVERY DAY AT BEDTIME NEEDED FOR HEARTBURN Fluticasone Nasal (Flonase 0.05 mg/inh nasal spray)?1?spray(s)?Nares, Both?Daily?for30?Days Levothyroxine (levothyroxine 0.075 mg oral tablet)?75?Microgram?1?tab(s)?By Mouth?Daily?for 90?Days Loratadine (loratadine 10 mg oral tablet)?10?Milligram?1?tablet?By Mouth?Daily Miscellaneous Rx (Knee high compression stockings)?See Instructions?wear stockings while at your job Oxybutynin (oxybutynin 15 mg/24 hr oral tablet, extended release)?TAKE 1 TABLET BY MOUTH EVERY DAY Timolol Ophthalmic (timolol maleate 0.5% ophthalmic solution)?INSTILL 1 DROP INTO BOTH EYES EVERY DAY ? Inpatient Medications Medications (13) Active SCHEDULED: (7) Acetaminophen 325 mg Tablet (Tylenol 325 mg oral tablet) ??975 mg, By Mouth, Every 8 hours Atorvastatin 20 mg Tablet (Lipitor Tablet) ??20 mg, By Mouth, Daily Divalproex Sodium 250mg ER Tablet (Depakote ER Tablet) ??250 mg, By Mouth, 2 times a day Levothyroxine 75 mcg Tablet (levothyroxine 0.075 mg oral tablet) ??75 mcg, By Mouth, Daily NaCl 0.9% Flush 3ml (NaCL 0.9% Flush) ??3 mL, IV Push, Every 8 hours Oxybutynin 5 mg ER Tablet (oxybutynin 5 mg/24 hours oral tablet, extended release) ??15 mg, By Mouth, Daily Timolol 0.5% Ophthalmic Solution (Timolol 0.5% Ophth) ??1 drops, Eyes, Both, Daily CONTINUOUS: (0) PRN: (6) Docusate Sodium 100 mg Capsule (Docusate Sodium Capsule) ??100 mg 1 capsule, By Mouth, 2 times a day Famotidine 20 mg Tablet (famotidine 20 mg oral tablet) ??20 mg, By Mouth, Daily at bedtime Melatonin 3 mg Tablet (Melatonin Tablet) ??3 mg, By Mouth, Daily at bedtime NaCl 0.9% Flush 3ml (NaCL 0.9% Flush) ??3 mL, IV Push, Every 8 hours Polyethylene Glycol 17 Gm Powder (MiraLax Powder) ??17 Gm 1 pack/packet, By Mouth, Daily Senna Tablet ??8.6 mg 1 tablet, By Mouth, 2 times a day ? Results ? Urinalysis?? No qualifying data available. ? * Gregor HERNANDEZ, Lisa: PERFORM Event Display: Admission Note Authored Date: Attending Attestation: I have seen and evaluated this patient.?? I have discussed the case and its management with the resident and agree with the findings and plan as documented in the resident???s note. EKG study * Event Display: ECG 12-Lead Authored Date: Please click on pdf link to open report * Event Display: ECG 12-Lead Authored Date: Ventricular Rate: 61 BPM Atrial Rate: 61 BPM P-R Interval: 152 ms QRS Duration: 90 ms Q-T Interval: 446 ms QTC Calculation(Bazett): 448 ms P [place]: 45 degrees R [place]: -39 degrees T [place]: 1 degrees Normal sinus rhythm Left axis deviation Moderate voltage criteria for LVH, may be normal variant ( R in aVL , [place] product ) Abnormal ECG When compared with ECG of 22-Apr-2023 15:59, QRS duration has increased Confirmed by VIVEK CONTEH MD ([id number]) on 02/12/2024 4:20:41 PM [place]: VIVEK CONTEH MD Heart * Event Display: Echocardiogram - Complete Authored Date: Transthoracic Echocardiography Report (TTE) Patient Demographics Patient Name PAULETTE TANNER Date of Study 02/14/2024 Corporate Gender Female Facility Race .[id number] Ethnicity Date of 1945 Height: 62.99 inches Age 78 year(s) Weight: 149.92 pounds Accession Number [id number] BSA: 1.71 m2 Room Number [id number] BMI: 26.56 kg/m2 Referring Not on Staff Referring Interpreting Jesus Eric Physician Physician Taye Lanza MD Engineering Laboratory Technician Elidia Moura Indications NSTEMI. Clinical History HLD Study Data Type of Study TTE procedure:Echo Complete-Doppler, Colorflow, M-Mode, Strain. Study Date02/14/2024 Start Time: 10:11 AM Study Location: [facility] [place] Adult Echo Study Status: Bedside Patient Status: Routine Technical Quality: Technically difficult due to rib artifact. Blood Pressure:110/69 mmHg EKG: Normal sinus rhythm HR: 70 bpm 2D Measurements LV Diastolic Dimension: 4.16 cm LV Systolic Dimension: 2.6 cm LV Septum Diastolic: 1.26 cm LV PW Diastolic: 1.09 cm AO Root Dimension: 3 cm LA ESV (BP):34.7 ml LVOT Stroke Volume: 47.55 ml LA ESV Index: 20 ml/m2 Stroke Volume Index27.81 ml/m2 LVOT: 2.03 cm Cardiac Index:1.95 l/min/m2 Ascending Aorta:3.56 cm Doppler Measurements AV Peak Velocity: 145 cm/s MV Peak E-Wave: 72 cm/s AV Peak Gradient: 8.41 mmHg MV Peak A-Wave: 103 cm/s AV Mean Gradient: 5 mmHg MV E/A Ratio: 0.7 AV VTI:30.2 cm MV P1/2t: 66 msec LVOT Peak Velocity: 67.4 cm/s MV Mean Gradient: 3 mmHg LVOT VTI14.7 cm MV Area (continuity): 1.78 cm2 AV Area (Continuity):1.57 cm2 MV Deceleration Time: 226 msec MV Area (PHT): 3.33 cm2 TR Velocity:233 cm/s TR Gradient:21.72 mmHg PV Peak Velocity: 81.1 cm/s PV Peak Gradient: 2.63 mmHg E' Septal Velocity: 5.22 cm/s E' Lateral Velocity: 6.2 cm/s E/Med E':13.7931 E/Lat E':11.6129 Cardiac Anatomy Left Ventricle/Interventricular Septum The apical views are foreshortened. The left ventricular size is normal. The left ventricular wall thickness is mildly increased. The LV systolic function is normal . The left ventricular ejection fraction is 55-60 %. The basal to mid inferolateral wall is hypokinetic . Grade I, mild diastolic dysfunction with impaired LV relaxation. Left Atrium/Interatrial Septum The left atrium is normal in size. Aortic Valve The aortic valve is probably trileaflet . The aortic valve appears mildly calcified. There is no aortic stenosis. There is no aortic regurgitation. Mitral Valve The mitral valve opening is normal. There is mild mitral regurgitation. Aorta The ascending aorta and aortic root are normal in size. Right Ventricle The right ventricle is normal in size and function. Right Atrium The right atrium is normal in size. Pulmonic Valve The pulmonic valve appears normal. Tricuspid Valve The tricuspid valve is grossly normal. There is mild tricuspid valve regurgitation. Pumonary Artery The pulmonary artery systolic pressure estimation is within normal limits. Venous Structures The inferior vena cava appears grossly normal. Pericardium/Extracardiac There is no significant pericardial effusion. Summary The apical views are foreshortened. The left ventricular size is normal. The left ventricular wall thickness is mildly increased. The LV systolic function is normal . The left ventricular ejection fraction is 55-60 %. The basal to mid inferolateral wall is hypokinetic . Grade I, mild diastolic dysfunction with impaired LV relaxation. The aortic valve is probably trileaflet . The aortic valve appears mildly calcified. There is no aortic stenosis. There is no aortic regurgitation. The right ventricle is normal in size and function. Comparison No prior study available for comparison. Signature * Event Display: Echocardiogram - Complete Authored Date: Hospital Progress note * Dania Pichardo RN: VERIFY, PERFORM, SIGN Event Display: Progress Note Hospital Authored Date: [id number] Patient: PAULETTE TANNER Age: 78 years Sex: Female : 1945 Associated Diagnoses: None Author: Dania Pichardo RN Findings Problem Related to Alteration in Neurological : Alteration in Neurological Function/new 02/18/2024 14:00 EST Alteration in Neuro status Related to Other: SDH, C5 fx Goals & Outcomes, Neurological Lab studies/diagnostic tests within pt specific limits, Pt is safe with transfers & activities, Pt will be Neurologically stable Interventions, Neurological Assess/monitor neurologic status, Assess/monitor VS per unit standards & prn, Call/Report variances in assessments to provider, Maintain patient safety if unsteady gait, Monitor for headaches, nausea, vomiting, Monitor speech fluency, aphasia, word finding difficulty, Physical assessment per unit standards, Provide emotional support to Pt/caregiver, Teach pt/caregiver discharge plan & follow up care, Teach pt/caregiver on plan of care, treatment, s/s & meds Goals/Interventions, Neurological Yes Neurological, Problem Start 02/13/2024 16:00 Reviewed plan with, Neurological Patient Patient Progression, Neurological Pt progressing according to plan . Nursing Data Neurological Data. : Neurological Data. 02/18/2024 9:00 EST Tongue Disposition Midline Neurological Symptoms Alteration in level of consciousness, Back pain, Unsteady gait/Ataxia, Weakness or loss of muscle strength Level of Consciousness Confusion Orientated to person, place, time Person, Place Hallucinations None Facial Symmetry Intact Characteristics of Speech Clear and normal Swallowing Difficulty Pills Pupil description, left Regular Pupil description, right Regular Pupil reaction, left Brisk Pupil reaction, right Brisk Pupil Size, Left 3 mm Pupil Size, Right 3 mm Strength LUE 5-Active movement against gravity & full resistance Strength RUE 5-Active movement against gravity & full resistance Strength LLE 5-Active movement against gravity & full resistance Strength RLE 5-Active movement against gravity & full resistance Tone LUE Normal Tone RUE Normal Tone LLE Normal Tone RLE Normal Sensation LUE Intact Sensation RUE Intact Sensation LLE Intact Sensation RLE Intact Movement LUE Spontaneous, To command, Flexes to pain Movement RUE Spontaneous, To command, Flexes to pain Movement LLE Spontaneous, To command, Flexes to pain Movement RLE Spontaneous, To command, Flexes to pain Gait Unsteady Response Eye Opening Spontaneously Motor Response-Adult Obeys commands Verbal Response-Adult Disoriented and converses [place] Coma Score 14 Neuro WNL except Memory Unable to assess Swallow - Neuro Normal . Evaluation Pt [place] alert to self, and states hospital off on month and year. Pt denies CARLOS, dizziness and vision changes. Face symmetrical tongue midline. large bruising area noted on pt upper back and neck. pt denies pain at this time. ESTEVEZ= strong, 1 assist needed for ambulation, pt impulsive at times, educated to ring for assistance prior to ambulating. PERRL Lung sounds clear, no resp distress noted,pt denies SOB and chest pain. Abdomen soft non tender, last BM 02/17 pt voiding with no complaints,good p.o. intake, pills whole. pt discharged to rehab, all questions and concerns addressed. all belongings taken at time of discharged, including hearing aids. bed in low position, call waters with in reach,bed alarm on for safety, hourly rounding, safety maintained. * Sole BROWN, Bonnie: PERFORM, SIGN, VERIFY Event Display: Progress Note Hospital Authored Date: [id number] Patient: PAULETTE TANNER Age: 78 years Sex: Female : 1945 Associated Diagnoses: None Author: Sole BROWN, Bonnie Findings Problem Related to Alteration in Neurological : Alteration in Neurological Function/new 02/17/2024 23:00 EST Alteration in Neuro status Related to Other: SDH, C5 fx Goals & Outcomes, Neurological Lab studies/diagnostic tests within pt specific limits, Pt is safe with transfers & activities, Pt will be Neurologically stable Interventions, Neurological Assess/monitor neurologic status, Assess/monitor VS per unit standards & prn, Call/Report variances in assessments to provider, Collaborate w/ provider to implement appropriate guidelines, Collaborate with Nutrition, Collaborate with provider re: medication regime, Document & Monitor O2 Sats; Administer O2 as ordered, Identify psychosocial issues related to diag nosis/illness, If no bowel movement in 3 days activate bowel regime, [place] alternate means of communication, Keep patient's head & body in good alignment, Maintain HOB at least 30 deg, Maintain normothermia, report temp >101.5 F, Maintain patient safety if unsteady gait, Maintain strict intake & output, Monitor Fluid & Electrolytes, Serum Osmolarity, Monitor for headaches, nausea, vomiting, Monitor speech fluency, aphasia, word finding difficulty, Physical assessment per unitstandards, Provide emotional support to Pt/caregiver, Teach & encourage deep breath & coughexercises, Teach and encourage use of Incentive spirometer, Teach pt/caregiver on plan of care, treatment, s/s & meds, Teach pt/caregiver on use of pain scale Goals/Interventions, Neurological Yes Neurological, Problem Start 02/13/2024 16:00 Reviewed plan with, Neurological Patient Patient Progression, Neurological Pt progressing according to plan . Nursing Data Neurological Data. : Neurological Data. 02/17/2024 21:00 EST Tongue Disposition Midline Neurological Symptoms History of seizures, Impaired mental ability, Memory loss, Weakness or loss of muscle strength Level of Consciousness Confusion Orientated to person, place, time Person, Place Facial Symmetry Intact Characteristics of Speech Clear and normal Pupil description, left Regular Pupil description, right Regular Pupil reaction, left Sluggish (Modified) Pupil reaction, right Sluggish (Modified) Strength LUE 5-Active movement against gravity & full resistance Strength RUE 5-Active movement against gravity & full resistance Strength LLE 5-Active movement against gravity & full resistance Strength RLE 5-Active movement against gravity & full resistance Tone LUE Normal Tone RUE Normal Tone LLE Normal Tone RLE Normal Sensation LUE Intact Sensation RUE Intact Sensation LLE Intact Sensation RLE Intact Movement LUE Spontaneous (Modified) Movement RUE Spontaneous (Modified) Movement LLE Spontaneous (Modified) Movement RLE Spontaneous (Modified) Gait Unable to assess Response Eye Opening Spontaneously Motor Response-Adult Obeys commands Verbal Response-Adult Disoriented and converses (Modified) [place] Coma Score 14 (Modified) Neuro WNL except Eyes and Movements Dysconjugate gaze: Eyes not aligned Swallow - Neuro Normal . Evaluation A&O to self and place with confusion. [place]. Speech clear, able to follow simple commands. Face symmetrical, tongue midline. ESTEVEZ 5/5. LS CTA. Continent of B/B. Last BM - 02/16. Denies any pain/discomfort, CARLOS, N/V, numbness/tingling. No acute concern noted/reported thus far. Bed in low position and bed alarm on for safety. Call light within reach . Discharge Information Rehabilitation Discharge : Rehab Discharge Index 02/17/2024 14:20 EST Transfer tub/shower OT Plan Supervision 02/17/2024 11:59 EST Walker: distance 20-50 02/14/2024 9:50 EST Comments on treatment indicated OT to address ADL's, transfers, safety/cog Full chart review completed Yes Hospital course Hospital course Transfer tub/shower OT Plan Supervision 02/13/2024 17:02 EST Comments on treatment indicated 78 y/o F c PMH of dementia and glaucoma admitted from [facility] for new SDH and C5 fx s/p multiple falls. WBAT, fall risk. PT f/u for ther ex, bed mob, transfers, gait, and balance. Rec rehab Walker: distance 20-50 Distance pt will ambulate 60ft Full chart review completed Yes Hospital course 02/12: Late transfer from the ER, will f/u tomorrow. Other findings pt is a mod complexity eval d/t current medical status and PMH Plan of care PT Gait training, Transfer training, Therapeutic exercise, Functional Activities, Balance training * Angelo RN, Ivet Reyes: VERIFY, PERFORM, SIGN Event Display: Progress Note Hospital Authored Date: Patient: PAULETTE TANNER Age: 78 years Sex: Female : 1945 Associated Diagnoses: None Author: Angelo BROWN, Ivet Reyes Findings Problem Related to Alteration in Neurological : Alteration in Neurological Function/new 02/17/2024 10:00 EST Alteration in Neuro status Related to Other: SDH, c5 fx Goals & Outcomes, Neurological Lab studies/diagnostic tests within pt specific limits, Pt is safe with transfers & activities, Pt will be Neurologically stable Interventions, Neurological Assess/monitor neurologic status, Assess/monitor VS per unit standards & prn, Keep patient's head & body in good alignment, Maintain HOB at least 30 deg, Maintain patient safety if unsteady gait, Physical assessment per unit standards, Provide emotional support to Pt/caregiver, Teach pt/caregiver on plan of care, treatment, s/s & meds, Teach pt/caregiver onuse of pain scale BH Goals/Interventions, Neurological Yes Neurological, Problem Start 02/13/2024 16:00 Reviewed plan with, Neurological Patient Patient Progression, Neurological Pt progressing according to plan . Nursing Data Neurological Data. : Neurological Data. 02/17/2024 10:00 EST Tongue Disposition Midline Neurological Symptoms Unsteady gait/Ataxia, Weakness or loss of muscle strength Level of Consciousness Confusion Orientated to person, place, time Person, Place Hallucinations None Facial Symmetry Intact Characteristics of Speech Clear and normal Swallowing Difficulty None Pupil description, left Regular Pupil description, right Regular Pupil reaction, left Sluggish Pupil reaction, right Sluggish Strength LUE 5-Active movement against gravity & full resistance Strength RUE 5-Active movement against gravity & full resistance Strength LLE 5-Active movement against gravity & full resistance Strength RLE 5-Active movement against gravity & full resistance Sensation LUE Intact Sensation RUE Intact Sensation LLE Intact Sensation RLE Intact Movement LUE Spontaneous, To command Movement RUE Spontaneous, To command Movement LLE Spontaneous, To command Movement RLE Spontaneous, To command Gait Unsteady Response Eye Opening Spontaneously Motor Response-Adult Obeys commands Verbal Response-Adult Disoriented and converses [place] Coma Score 14 Neuro WNL except Eyes and Movements Dysconjugate gaze: Eyes not aligned Swallow - Neuro Unable to swallow own secretions/saliva . Narrative/Incidental Pt alert and oriented x2 rt eye ptosis at times and rt eye deviates towards the right, speech clearvery hard of hearing especially without her hearing aids, smile symmetrical tongue midline follows most commands, + hand grasps +pp lauri + dorsi/pedal flexion, able to lift legs off the bed, denies numbness tingling dizziness double or blurred vision states that is why she wears glasses, no headachesome pain all over generally, lungs clear no sob no cough [id number]+bsx4 no n/v appetite good, voids bathroom with assist can be impulsive but redirectable, large bruise to posterior neck and left side of ear with bruise to rt shoulder, up with walker and assist potentail discharge later today to rehab bed alarm for safety and call waters within reach. Note * Dania Pichardo RN: PERFORM Event Display: Discharge/Transfer Note Hospital Authored Date: [id number] Nursing Discharge Note Entered On: 02/18/2024 17:58 EST Performed On: 02/18/2024 17:57 EST by Dania Pichardo RN Nursing Discharge Note 2 Discharge Time : 02/18/2024 17:11 EST Discharge Level of Care at Discharge : custodial facility Discharge [facility] Via : Ambulance Patient Accompanied Off Unit with : Ambulance/Chair Van Personnel Handover Given to Transport Personnel : Yes DC Instructions Provided & Signed by Pt : No Patient Understands D/C Instructions : Yes Patient Instructions Discharge Signed : Yes Discharge Comments : no iv access at time of discharge, report given to ambulance staff hearing aids sent with pt along pocket book and other personal belongings. Did Pt have Specialty Bed or Wound Vac : No Dania Pichardo RN - 02/18/2024 17:57 EST * Kacy Jameson MD: PERFORM Event Display: Discharge/Transfer Note Hospital Authored Date: [id number] Patient: ??PAULETTE TANNER ? Age:??78 Years?Sex:??Female?:??1945?? Patient Information Discharge Location: D5A Primary Care Physician: Not on Staff, PCP Admit Date/Time: 02/12/2024 11:20 Discharge Disposition Discharge Disposition: Assisted Facility/Rehab Discharge Diagnosis Primary diagnoses Subdural hematoma, post-traumatic (S06.5XAA) Fracture of cervical vertebra, C5 (S12.400A) Fall at home (W19.XXXA) ?? Secondary diagnoses NSTEMI (non-ST elevated myocardial infarction) (I21.4) Dementia (F03.90) Hyperlipidemia (E78.5) Hypothyroidism (E03.9) Seizure disorder (G40.909) Unspecified place in unspecified non-institutional (private) residence as the place of occurrence of the external cause (Y92.009) Fall ([id number]) Overactive bladder (N32.81) Hard of hearing (H91.90) Glaucoma (H40.9) _ Discharge Medications Acetaminophen (Tylenol 325 mg oral tablet)?975?Milligram?By Mouth?Every 8 hours Atorvastatin (Lipitor Tablet)?20?Milligram?By Mouth?Daily?for 90?Days Divalproex Sodium (divalproex sodium 250 mg oral tablet, extended release)?TAKE 1 TABLET BY MOUTH TWICE A DAY Donepezil (donepezil 5 mg oral tablet)?TAKE 1 TABLET BY MOUTH EVERYDAY AT BEDTIME Famotidine (famotidine 20 mg oral tablet)?TAKE 1 TABLET BY MOUTH EVERY DAY AT BEDTIME NEEDED FOR HEARTBURN Fluticasone Nasal (Flonase 0.05 mg/inh nasal spray)?1?spray(s)?Nares, Both?Daily?for30?Days Levothyroxine (levothyroxine 0.075 mg oral tablet)?75?Microgram?1?tab(s)?By Mouth?Daily?for 90?Days Loratadine (loratadine 10 mg oral tablet)?10?Milligram?1?tablet?By Mouth?Daily Miscellaneous Rx (Knee high compression stockings)?See Instructions?wear stockings while at your job Oxybutynin (oxybutynin 15 mg/24 hr oral tablet, extended release)?TAKE 1 TABLET BY MOUTH EVERY DAY Timolol Ophthalmic (timolol maleate 0.5% ophthalmic solution)?INSTILL 1 DROP INTO BOTH EYES EVERY DAY ? Medications Started None Medications Discontinued Aspirin (Aspirin Low Dose 81 mg oral delayed release tablet)?TAKE 1 TABLET BY MOUTH EVERY DAY Doses Changed None PCP Follow-Up/Heads-Up ?Patient presented with a new subdural hematoma and C5 fracture on CAT scan in the setting of multiple falls.?? Neurosurgery??did not recommend any surgical intervention at this time. ?Aspirin was discontinued. ??Please hold off for at least 2 weeks??and at that time??have a??discussion with patient/family??about the risks and benefits of reinitiating this medication. Hospital Course 78-year-old female who??is hard of hearing and with a medical history??significant for overactive bladder, depression, glaucoma, hypothyroidism, hyperlipidemia, dementia on donepezil, and seizure disorder, who presented to the ED on 02/11??with a??new subdural hematoma and C5 fracture??on CT scan??after??multiple falls.?? Initially there was concern of NSTEMI due to troponin elevation??at presenting hospital??and wall motion abnormalities on??echo obtained at [facility]; however, cardiology was consulted and felt this was less likely to be a coronary event.?? At this time, the pat ient??is status post??neurosurgery evaluation who does not recommend surgical intervention for subdural hematoma.?? She has been evaluated by physical therapy??with recommendation to be discharged??to??rehabilitation and??is hemodynamically stable to be discharged. ?? Fall at home (W19.XXXA) Complicated by Subdural hematoma, post-traumatic (S06.5XAA), Fracture of cervical vertebra, C5 (S12.400A), Dementia (F03.90) Hard of hearing (H91.90) Concern for NSTEMI - ruled out Presented to the ED on 02/11??with a??new subdural hematoma and C5 fracture??on CT scan??after??multiple falls.?? Unlikely to be cardiac in nature. Patient had mild elevation in??troponin without??significant??delta.?? Echocardiogram was obtained??which showed a normal ejection fraction??and mild hypokinesis in the inferolateral portion of the left ventricle, which is not convincing??of a coronary event.?? Patient was placed on cardiac telemetry which did not show any??significant dysrhythmias. ??No further cardiac testing was recommended. Neurosurgery does not recommend surgical intervention at this time for the subdural hematoma and recommends medical management. Patient's EKG is nonischemic.??She does not report chest pain at the time of evaluation. Patient iscurrently at her neurologic baseline. ?? Recommendations: ??? PT recommended rehab ??? Tylenol??scheduled for pain control ?Holding aspirin??for at least 2 weeks.?? Shared decision making to to discuss risk/benefits of??restarting antiplatelet therapy??outpatient??as this may cause recurrence/progression of hemorrhage ??? Delirium precautions ??? Continue donepezil ? Chronic, stable, resolved: Glaucoma (H40.9):??Continue timolol drops daily Hyperlipidemia (E78.5):??Continue atorvastatin 20 mg daily Hypothyroidism (E03.9):??Continue levothyroxine 75 mcg??daily Seizure disorder (G40.909):??Continue??valproic acid ER 250 mg twice daily?? Overactive bladder (N32.81):??Continue oxybutynin ER 15 mg daily ?? Objective Vital Signs?? Temperature: 98.4 DegF (02/18/24 11:00:00) Temperature Route: Temporal (02/18/24 11:00:00) Pulse Rate: 72 bpm (02/18/24 11:00:00) Respiratory Rate: 18 br/min (02/18/24 11:00:00) Systolic Blood Pressure: 107 mm Hg (02/18/24 11:00:00) Diastolic Blood Pressure: 62 mm Hg (02/18/24 11:00:00) Blood pressure sites: Arm, right (02/18/24 11:00:00) Mean Arterial Pressure: 98 mm Hg (02/17/24 20:21:00) Pulse Pressure: 45 mm Hg (02/18/24 11:00:00) Oxygen Saturation: 97 % (02/18/24 11:00:00) Mode of Delivery (Oxygen): Room air (02/18/24 11:00:00) Early Warning Score: 0 (02/18/24 11:00:38) ? . Physical Exam General: Patient in no acute distress, very hard of hearing HEENT: normocephalic, atraumatic Respiratory: bilateral equal air entry, clear to auscultation with no wheezes or crackles. CVS: regular rate and rhythm, S1 and S2 present, no murmurs. No JVD.?? Abdomen: soft, non tender, non distended, bowel sounds present. Extremities: No edema noted bilaterally. Neuro: alert and oriented??to self and place??Moving all extremities spontaneously. Following simple commands. Consultants Neurosurgery - Daniel LAO, Na Trauma surgery - Roberto HERNANDEZ, Won De Luna Cardiology - Rosita HERNANDEZ, Seth Hernandez Pending Results Add On Lab Order ordered on 02/14/2024 Urinalysis w/hold for Urine Culture ordered on 02/12/2024 Patient Education Titles WebMD Ignite Patient Education - Exercises to Prevent Falls?? WebMD Ignite Patient Education - Fall??Prevention?? Follow-Up Appointments Added Follow Up ?Time Frame ?Comments [facility] PCP Assignment Line [phone]?1-2 day: call to discuss follow up visit Patient Instructions You were seen at the hospital??because you had some falls??recently.?? You are found to have a subdural hematoma, which is a??collection of blood that accumulates between the inner layer of the skulland the surface of the brain. You were evaluated by our neurosurgery team??and no surgery was indicated at this time.?? You were then evaluated by our physical therapy team who recommended??rehab??toimprove your strength. ?? At this time, you are safe to be discharged. ??Please follow-up with your primary care provider within 1 to 2 weeks. ??If you do not have a primary care provider, please call the??PCP assignment [facility] [phone]??in order to set up with a??new??primary care provider. In terms of your medications, your aspirin 81 mg daily was discontinued.?? Please hold off on taking this medication and discuss with your??doctor??if??they would like to??restart the medication or discontinue it completely. ?? If you experience??worsening??confusion,??significant??nausea/vomiting, chest pain, shortness of breath, or any other concerns you may have, please reach out to medical provider immediately or returnto the emergency department at once. ?? Post Discharge Care Discharge ?02/18/24 14:34:00 EST ?Order Comment:?? Discharge Prescriptions ?ePrescribed, 02/18/24 14:34:00 EST ?Order Comment:?? Results Discharge Labs BLOOD BANK Blood Type O Positive ()?? 02/12/2024 10:29 Antibody Screen Negative ()?? 02/12/2024 10:29 ?? BLOOD COUNT & DIFF WBC 7.3 k/mm3 ()?? 02/13/2024 06:59 RBC 3.83 m/mm3 (Low)?? 02/13/2024 06:59 Hgb 11.2 Gm/dL (Low)?? 02/14/2024 07:36 Hct 35.8 % ()?? 02/14/2024 07:36 MCV 94.0 femtoliters ()?? 02/13/2024 06:59 MCH 29.5 pg ()?? 02/13/2024 06:59 MCHC 31.4 Gm/dL (Low)?? 02/13/2024 06:59 Platelet Count 155 k/mm3 ()?? 02/13/2024 06:59 RDW-SD 55.0 femtoliters (High)?? 02/13/2024 06:59 MPV 12.2 femtoliters ()?? 02/13/2024 06:59 Nucleated RBC (Automated) 0.0 #/100 WBC'S ()?? 02/13/2024 06:59 Abs. NRBC 0.0 k/mm3 ()?? 02/13/2024 06:59 Abs. Neut 2.8 k/mm3 ()?? 02/12/2024 10:52 Abs. Lymph 2.5 k/mm3 ()?? 02/12/2024 10:52 Abs. [place] 0.7 k/mm3 ()?? 02/12/2024 10:52 Abs. Eo 0.1 k/mm3 ()?? 02/12/2024 10:52 Abs. Baso 0.0 k/mm3 ()?? 02/12/2024 10:52 Neut % 45.0 % ()?? 02/12/2024 10:52 Lymph % 40.6 % ()?? 02/12/2024 10:52 [place] % 11.9 % (High)?? 02/12/2024 10:52 Eos % 2.0 % ()?? 02/12/2024 10:52 Baso % 0.2 % ()?? 02/12/2024 10:52 Imm Gran 0.3 % ()?? 02/12/2024 10:52 Abs. Imm Gran 0.0 k/mm3 ()?? 02/12/2024 10:52 ?? CARDIAC High Sensitivity Troponin (HSTnT) 78 ng/L (Critical)?? 02/12/2024 15:28 ? CHEM GENERAL Sodium 139 mmol/L ()?? 02/14/2024 07:39 Potassium 4.3 mmol/L ()?? 02/14/2024 07:39 Chloride 103 mmol/L ()?? 02/14/2024 07:39 Bicarbonate Level 28 mmol/L ()?? 02/14/2024 07:39 Anion Gap 8 ()?? 02/14/2024 07:39 Glucose Level 76 mg/dL ()?? 02/14/2024 07:39 BUN 14 mg/dL ()?? 02/14/2024 07:39 Creatinine-Blood 1.02 mg/dL (High)?? 02/14/2024 07:39 Estimated GFR Creatinine 56 ML/MIN/1.73 M2 ()?? 02/14/2024 07:39 Calcium 8.8 mg/dL ()?? 02/14/2024 07:39 Protein, Total 6.2 Gm/dL ()?? 02/12/2024 10:52 Albumin 3.6 Gm/dL ()?? 02/12/2024 10:52 AG Ratio 1.4 ()?? 02/12/2024 10:52 Alkaline Phosphatase 129 units/L (High)?? 02/12/2024 10:52 GGTP 18 units/L ()?? 02/14/2024 07:39 AST (SGOT) 25 units/L ()?? 02/12/2024 10:52 ALT (SGPT) 12 units/L ()?? 02/12/2024 10:52 Bilirubin, Total 0.7 mg/dL ()?? 02/12/2024 10:52 Vitamin B12 Level 785 pg/mL ()?? 02/13/2024 06:59 Folic Acid Level 9.8 ng/mL ()?? 02/13/2024 06:59 ?? COAG INR 1.0 ()?? 02/12/2024 10:52 Protime (PT) 11.0 seconds ()?? 02/12/2024 10:52 ?? ENDOCRINE/TUMOR MARKER TSH 1.84 uIU/mL ()?? 02/12/2024 10:52 ? TOXICOLOGY/TDM Ethanol, Serum or Plasma NONE DETECTED mg/dL ()?? 02/12/2024 10:52 Valproic Level 32.4 mg/L (Low)?? 02/12/2024 10:52 ?? URINE OTHER Est Creatinine Clearance 36.71 mL/min ()?? 02/14/2024 08:53 ? Image ?Echo Complete-Doppler, Colorflow, M-Mode??02/14/2024 10:11 by Hernesto Lee MD ?Summary The apical views are foreshortened. The left ventricular size is normal. The left ventricular wall thickness is mildly increased. The LV systolic function is normal . The left ventricular ejection fraction is 55-60 %. The basal to mid inferolateral wall is hypokinetic . Grade I, mild diastolic dysfunction with impaired LV relaxation. The aortic valve is probably trileaflet .The aortic valve appears mildly calcified. There is no aortic stenosis. There is no aortic regurgitation. The right ventricle is normal in size and function. Comparison No prior study available for comparison. ?? 35??minutes spent on discharge ? Kacy Jameson MD Internal Medicine PGY3 Pager: [phone] ?? Patient seen and management discussed with attending physician,??Dr. Paige * Alex BROWN, Munira Mccoy: VERIFY, PERFORM, SIGN Event Display: Case Management Discharge Plan Authored Date: [id number] Patient: PAULETTE TANNER Age: 78 years Sex: Female : 1945 Associated Diagnoses: None Author: Alex BROWN, Munira Mccoy Discharge Plan Case Management Discharge Plan : Case Management Discharge Plan Data 02/18/2024 13:41 EST Discharge Level of Care at Discharge custodial facility Discharge Nursing Homes/Rehab Facilities [facility] Discharge Transportation Arranged [facility] [address] [place] [phone] Discharge Arranged Transport Date/Time 02/18/2024 15:30 Mode of Transportation Arranged Ambulance [facility] Service Categories #1 Occupational Therapy, Physical Therapy Service Comments #1 You are being discharged to rehab at [facility] to continue your recovery Name of Person Notified of Transfer your Rafat * Alida BROWN, Katelin: PERFORM Event Display: Patient Education/Instruction Authored Date: [id number] Inpatient Adult Discharge Instructions. [address] [id number] Name: PAULETTE TANNER : 1945?? Visit: 02/12/2024 11:20?? Current Date: 02/18/2024 15:01 ?? Account: [id number]?? Inpatient Adult Discharge Instructions We would like to thank you for allowing us to assist you with your healthcare needs. The following includes patient education materials and information regarding your injury/illness. Our entire staffstrives to provide an excellent experience for our patients and their families. PLEASE ENSURE YOU FOLLOW-UP PER THE INSTRUCTIONS BELOW! ?? YOUR OPINION IS IMPORTANT TO US! Please complete the survey you may receive by mail or email. Your feedback will be used to make improvements to the healthcare experiences of our patients and their families. Surveys are administered by [employer], [employer]. ?? If further treatment with your primary care physician or another doctor is recommended, it is important for you to keep the appointment. Call your primary care physician or return to the Emergency Department immediately if your condition worsens, fails to improve, or new symptoms develop. If you need to find a doctor, you can call [facility] Link for a referral at [phone] or toll free at [phone] or log in to [email or web address] ?? [facility], in keeping with [facility] guidance, no longer requires face masks for staff, patientsor visitors in most situations. Similiar to time spent indoors at other locations, there is the chance that you were exposed to repiratory viruses during your time with us (such as flu or COVID-19). If you develop symptoms concerning for a viral respiratory infection, please seek testing (and treatment if indicated) from your medical provider or home test kit. ?? You can view and manage your care through the patient portal or by using a health care erica of your choosing. [employer] is a website that allows you to securely view your medical information including your hospital discharge summary, office visit summaries, medications and follow-up visits. You can also request appointments, renew medications, and request access to your medical information using a health care erica of your choosing, or just ask a question. You can enroll at [email or web address] or register during your next office visit. You have been discharged from [facility], Patient Care Unit: D5A??. If you have any questions regarding these instructions, including results of studies pending, afteryou leave, please call us and we will be happy to assist you 17/09. [facility] Your Care Team Attending Physician Manny Paige MD?? Consulting Providers Manny Paige MD?? Discharging Providers Kacy Jameson MD Reason for Your Visit 5mm SDH, recurrent falls?? Your Diagnosis Subdural hematoma, post-traumatic Fracture of cervical vertebra, C5 Dementia Hyperlipidemia Hypothyroidism Seizure disorder Unspecified place in unspecified non-institutional (private) residence as the place of occurrence of the external cause Fall Fall at home Glaucoma Hard of hearing NSTEMI (non-ST elevated myocardial infarction) Overactive bladder Tests Performed Below is a partial list of the tests performed during your hospitalization. You may have had other tests and procedures not included in this list. Please discuss all test results with your provider. Alcohol Level B12 Vitamin Level Basic Metabolic Panel CBC CBC w/ Differential Comprehensive Metabolic Panel Depakote Level Folate Level GGTP H + H INR Troponin T, High Sensitivity TSH with T4 Reflex (Adults Only) Type and Screen Add On Lab Order?? Basic Metabolic Panel?? CBC?? CBC w/ Differential?? Outside Images-CT?? Comprehensive Metabolic Panel?? Ethanol Level (Alcohol Level)?? Folate Level?? GGT (GGTP)?? Hgb + Hct (H + H)?? High??Sensitivity??Troponin T (Troponin T, High Sensitivity)?? INR?? TSH with T4 Reflex (Adults Only)?? Type and Screen?? Urinalysis w/hold for Urine Culture?? Valproic Acid Level (Depakote Level)?? Vitamin B12 Level (B12 Vitamin Level)?? Primary Care Provider Dada Bullard MD? Advance Directive Health Care Proxy on File Yes - Health Care Proxy Name of Caregiver: rafat tanner Patient has a Designated Caregiver: Yes Discharge Vitals Temperature: 98.4 DegF Height: 160 cm Pulse Rate: 72 bpm Weight: 52 kg Respiratory Rate: 18 br/min Body Mass Index: 20.31 kg/m2 Systolic Blood Pressure: 107 mm Hg Body surface area: 1.52 Diastolic Blood Pressure: 62 mm Hg ?? Oxygen Saturation: 97 % ?? Studies Pending All studies ordered during this hospital stay have been completed unless listed below. Please discuss all pending results with your provider listed above in these instructions. ?? Add On Lab Order?? Urinalysis w/hold for Urine Culture?? What to do next Instructions From Your Doctor ?? Orders? 02/18/24 14:34:00 EST?? Prescriptions??, ??02/18/24 14:34:00 EST?? You Need to Schedule the Following Appointments Follow Up with??[facility] PCP Assignment Line [phone] When:??Within 1-2 day: call to discuss follow up visit Discharge Medications PAULETTE TANNER :1945 Visit Date:02/12/2024 Medications: Please continue your medications until treatment is completed or stopped by your provider. Medications not listed below should be discontinued. Discuss any questions related to medications with your provider. What How Much When Why Instructions Next Dose New Acetaminophen (Tylenol 325 mg oral tablet) 975 Milligram Oral Every 8 hours Take as prescribed Unchanged Atorvastatin (Lipitor Tablet) 20 Milligram Oral Daily Duration: 90 Days Tomorrow 02/19/24 9am Unchanged Divalproex Sodium (divalproex sodium 250 mg oral tablet, extended release) TAKE 1 TABLET BY MOUTH TWICE A DAY ?? Tonight 02/18/24 9pm Unchanged Donepezil (donepezil 5 mg oral tablet) TAKE 1 TABLET BY MOUTH EVERYDAY AT BEDTIME ?? Not given, resume as prescribed Unchanged Famotidine (famotidine 20 mg oral tablet) TAKE 1 TABLET BY MOUTH EVERY DAY AT BEDTIME NEEDED FOR HEARTBURN ?? take as prescribed Unchanged Fluticasone Nasal (Flonase 0.05 mg/ inh nasal spray) 1 spray(s) Nares, Both Daily Duration: 30 Days not given, resume as prescribed Unchanged Levothyroxine (levothyroxine 0.075 mg oral tablet) 75 Microgram Oral Daily Duration: 90 Days Tomorrow 02/19/24 7am Unchanged Loratadine (loratadine 10 mg oral tablet) 1 tab(s) Oral Daily Not given, resume as prescribed Unchanged Miscellaneous Rx (Knee high compression stockings) See Instructions chronic venous stasis, edema wear stockings while at your job ?? As directed Unchanged Oxybutynin (oxybutynin 15 mg/ 24 hr oral tablet, extended release) TAKE 1 TABLET BY MOUTH EVERY DAY ?? Tomorrow 02/19/24 9am Unchanged Timolol Ophthalmic (timolol maleate 0.5% ophthalmic solution) INSTILL 1 DROP INTO BOTH EYES EVERY DAY ?? Tomorrow 02/19/24 9am ?? What When Comments Stop Taking Aspirin (Aspirin Low Dose 81 mg oral delayed release tablet) TAKE 1 TABLET BY MOUTH EVERY DAY ?? Prescription Given During Visit No new medications prescribed at time of discharge.?? Laboratory Results Below is a partial list of the most recent Laboratory test results done prior to this discharge. You may have had other tests and procedures not included in this list. Please discuss all test resultswith your provider. Est Creatinine Clearance - 36.71 mL/min (02/14/2024) Alcohol Level (02/12/2024) ???Ethanol, Serum or Plasma - NONE DETECTED B12 Vitamin Level (02/13/2024) ???Vitamin B12 Level - 785 pg/mL Basic Metabolic Panel (02/14/2024) ???Sodium - 139 mmol/L???Potassium - 4.3 mmol/L???Chloride - 103 mmol/L???Bicarbonate Level - 28 mmol/L???Anion Gap - 8???Glucose Level - 76 mg/dL???BUN - 14 mg/dL???Creatinine-Blood - 1.02 mg/dL???Estimated GFR Creatinine - 56 ML/MIN/1.73 M2???Calcium - 8.8 mg/dL CBC (02/13/2024) ???WBC - 7.3 k/mm3???RBC - 3.83 m/mm3???Hgb - 11.3 Gm/dL???Hct - 36.0 %???MCV - 94.0 femtoliters???MCH - 29.5 pg???MCHC - 31.4 Gm/dL???Platelet Count - 155 k/mm3???RDW-SD - 55.0 femtoliters???MPV - 12.2 femtoliters???Nucleated RBC (Automated) - 0.0 #/100 WBC'S???Abs. NRBC - 0.0 k/mm3 CBC w/ Differential (02/12/2024) ???WBC - 6.1 k/mm3???RBC - 4.06 m/mm3???Hgb - 12.2 Gm/dL???Hct - 38.0 %???MCV - 93.6 femtoliters???MCH - 30.0 pg???MCHC - 32.1 Gm/dL???Platelet Count - 146 k/mm3???RDW-SD - 54.3 femtoliters???MPV - 12.0 femtoliters???Nucleated RBC (Automated) - 0.0 #/100 WBC'S???Abs. NRBC - 0.0 k/mm3???Abs. Neut - 2.8 k/mm3???Abs. Lymph - 2.5 k/mm3???Abs. [place] - 0.7 k/mm3???Abs. Eo - 0.1 k/mm3???Abs. Baso - 0.0 k/mm3???Neut % - 45.0 %???Lymph % - 40.6 %???[place] % - 11.9 %???Eos % - 2.0 %???Baso % - 0.2 %???Imm Gran - 0.3 %???Abs. Imm Gran - 0.0 k/mm3 Comprehensive Metabolic Panel (02/12/2024) ???Sodium - 142 mmol/L???Potassium - 4.3 mmol/L???Chloride - 105 mmol/L???Bicarbonate Level - 29 mmol/L???Anion Gap - 8???Glucose Level - 84 mg/dL???BUN - 15 mg/dL???Creatinine-Blood - 1.03 mg/dL???Estimated GFR Creatinine - 55 ML/MIN/1.73 M2???Calcium - 9.1 mg/dL???Protein, Total - 6.2 Gm/dL???Albumin - 3.6 Gm/dL???AG Ratio - 1.4???Alkaline Phosphatase - 129 units/L???AST (SGOT) - 25 units/L???ALT (SGPT) - 12 units/L???Bilirubin, Total - 0.7 mg/dL Depakote Level (02/12/2024) ???Valproic Level - 32.4 mg/L Folate Level (02/13/2024) ???Folic Acid Level - 9.8 ng/mL GGTP (02/14/2024) ???GGTP - 18 units/L H + H (02/14/2024) ???Hgb - 11.2 Gm/dL???Hct - 35.8 % INR (02/12/2024) ???INR - 1.0???Protime (PT) - 11.0 seconds Troponin T, High Sensitivity (02/12/2024) ???High Sensitivity Troponin (HSTnT) - 78 ng/L TSH with T4 Reflex (Adults Only) (02/12/2024) ???TSH - 1.84 uIU/mL Type and Screen (02/12/2024) ???Blood Type - O Positive???Antibody Screen - Negative You will be contacted within 72 hours with your results. Immunizations This Visit Not Given Vaccine Commentsinfluenza virus vaccine, inactivated Patient Refuses I'll get it when I'm home Allergies (NKA means No Known Allergies) sulfamethoxazole-trimethoprim Problems Active Problems??(6) Bladder muscle dysfunction - overactive?? Depression?? Glaucoma?? H/O: hypothyroidism?? HLD - Hyperlipidemia?? Seizure disorder?? Education Materials Below is the list of Educational Leaflet Providered with your Discharge Instructions. Web[employer] Ignite Patient Education - Exercises to Prevent Falls?? Web[employer] Ignite Patient Education - Fall??Prevention?? Valuables and Belongings I fully understand and agree that [facility] accepts no responsibility for all my personal property including clothing, toilet articles, radios, jewelry, dentures, hearing aids, rings, money, or any other property that is in my possession or is brought to me after admission. I understand certain valuables may be placed in a hospital safe for a short period of time. I understand that the hospital is not liable for loss or damage due to accident, fire, or other natural occurrence while said property is in the safe. I accept full responsibility for any personal property that I keep with me, and will not hold the hospital responsible in case of loss or disappearance. I acknowledge that i have been encouraged to send valuables and belongings home. ?? Review of Valuable and Belonging List: With patient Date for Pt to Sign Valuables/Belongings: 02/12/24 13:54:00 ?? Other Discharge Information ? Case Management Discharge Plan?? Discharge Plan?? Discharge Agency Information?? Discharge Level of Care at Discharge: custodial facility [facility] Discharge Transportation Arranged: [facility] [address] [facility] [address] [phone] Service Categories #1: Occupational Therapy, Physical Therapy Mode of Transportation Arranged: Ambulance Service Comments #1: You are being discharged to rehab at [facility] to continue your recovery Discharge Arranged Transport Date/Time: 02/18/24 15:30:00 Name of Person Notified of Transfer: your Rafat Discharge Nursing Homes/Rehab Facilities: [facility] ? Pulmonary Rehab Status?? Pulmonary Rehab Discharge Status?? Respiratory Rate: 18 br/min ? Common Emergency Awareness Tips IS IT A STROKE? Act FAST and Check for these signs: FACE Does the face look uneven? ARM Does one arm drift down? SPEECH Does their speech sound strange? TIME Call at any sign of stroke ?? Heart Attack Signs Chest discomfort: Most heart attacks involve discomfort in the center of the chest and lasts more than a few minutes, or goes away and comes back. It can feel like uncomfortable pressure, squeezing, fullness or pain. Discomfort in upper body: Symptoms can include pain or discomfort in one or both arms, back, neck, jaw or stomach. Shortness of breath: With or without discomfort. Other signs: Breaking out in a cold sweat, nausea, or lightheaded. Remember, MINUTES DO MATTER. If you experience any of these heart attack warning signs, call to get immediate medical attention! ?? Smoking can increase your chances of developing chronic health problems and can cause harmful effects to other family members in your house. If you smoke, you are strongly encouraged to quit. Please call [facility] at [phone] or [phone] ([phone]) or log in to [email or web address] for referrals to smoking cessation programs. ?? 564 Suicide & Crisis Lifeline is available 17/09 if you or someone you know needs to find a reason to keep living. By calling 764 you'll be connected to a skilled, trained counselor at a crisis center in your area. INPATIENT DISCHARGE INSTRUCTIONS SIGNATURE PAGE PAULETTE TANNER Location:[facility] Registration Date and Time:02/12/2024 11:20 EST Primary Care Physician: Not on Staff, PCP Attending Physician: Royal HERNANDEZ, Shae, I PAULETTE TANNER, have received the above patient education materials/instructions and have verbalized understanding. If ambulance or transport services are being used I further acknowledge being givena choice of service. ?? If you need to contact me, please call me at this number: . Patient/Other Sports Coach Or Instructor Name: Patient/Other Sports Coach Or Instructor Signature: Relationship to Patient: Witness Name/Signature: Date: * Katelin Irwin RN: PERFORM Event Display: Patient Education Leaflets Authored Date: [id number] Acetaminophen ?? [id number] Acetaminophen Brand Name(s): Actamin??, Feverall??, Panadol??, Tempra Quicklets??, Tylenol??, Dayquil?? (as a combination product containing Acetaminophen, Dextromethorphan, Pseudoephedrine), NyQuil Cold/Flu Relief?? (as a combination product containing Acetaminophen, Dextromethorphan, Doxylamine), Percocet?? (as a combination product containing Acetaminophen, Oxycodone) ?? APAP, O-xofvuu-kzmc-aminophenol, Paracetamol IMPORTANT WARNING: Taking too much acetaminophen can cause liver damage, sometimes serious enough to require liver transplantation or cause . You might accidentally take too much acetaminophen if you do not followthe directions on the prescription or package label carefully, or if you take more than one productthat contains acetaminophen. To be sure that you take acetaminophen safely, you should ??? not take more than one product that contains acetaminophen at a time. Read the labels of all the prescription and nonprescription medications you are taking to see if they contain acetaminophen. Be aware that abbreviations such as APAP, AC, Acetaminophen, Acetaminoph, Acetaminop, Acetamin, or Acetam. may be written on the label in place of the word acetaminophen. Ask your doctor or pharmacistif you don't know if a medication that you are taking contains acetaminophen. ??? take acetaminophen exactly as directed on the prescription or package label. Do not take more acetaminophen or take it more often than directed, even if you still have fever or pain. Ask your doctor or pharmacist if you do not know how much medication to take or how often to take your medication. Call your doctor ifyou still have pain or fever after taking your medication as directed. ??? be aware that you shouldnot take more than 4000 mg of acetaminophen per day. If you need to take more than one product thatcontains acetaminophen, it may be difficult for you to calculate the total amount of acetaminophen you are taking. Ask your doctor or pharmacist to help you. ??? tell your doctor if you have or have ever had liver disease. ??? not take acetaminophen if you drink three or more alcoholic drinks everyday. Talk to your doctor about the safe use of alcohol while you are taking acetaminophen. ??? stoptaking your medication and call your doctor right away if you think you have taken too much acetaminophen, even if you feel well. Talk to your pharmacist or doctor if you have questions about the safe use of acetaminophen or acetaminophen-containing products. WHY is this medicine prescribed? Acetaminophen is used to relieve mild to moderate pain from headaches, muscle aches, menstrual periods, colds and sore throats, toothaches, backaches, reactions to vaccinations (shots), and to reducefever. Acetaminophen may also be used to relieve the pain of osteoarthritis (arthritis caused by the breakdown of the lining of the joints). Acetaminophen is in a class of medications called analgesics (pain relievers) and antipyretics (fever reducers). It works by changing the way the body senses pain and by cooling the body. HOW should this medicine be used? Acetaminophen comes as a tablet, chewable tablet, capsule, suspension or solution (liquid), extended-release (long-acting) tablet, and orally disintegrating tablet (tablet that dissolves quickly in the mouth), to take by mouth, with or without food. Acetaminophen is available without a prescription, but your doctor may prescribe acetaminophen to treat certain conditions. Follow the directions on the package or prescription label carefully, and ask your doctor or pharmacist to explain any part you do not understand. If you are giving acetaminophen to your child, read the package label carefully to make sure that it is the right product for the age of the child. Do not give children acetaminophen products that are made for adults. Some products for adults and older children may contain too much acetaminophen for a younger child. Check the package label to find out how much medication the child needs. If you know how much your child weighs, give the dose that matches that weight on the chart. If you don't know your child's weight, give the dose that matches your child's age. Ask your child's doctor if you don't know how much medication to give your child. Acetaminophen comes in combination with other medications to treat cough and cold symptoms. Ask your doctor or pharmacist for advice on which product is best for your symptoms. Check nonprescription cough and cold product labels carefully before using two or more products at the same time. These products may contain the same active ingredient(s) and taking them together could cause you to receivean overdose. This is especially important if you will be giving cough and cold medications to a child. Swallow the extended-release tablets whole; do not split, chew, crush, or dissolve them. Place the orally disintegrating tablet ('Meltaways') in your mouth and allow it to dissolve, or chew it before swallowing. Shake the suspension well before each use to mix the medication evenly. Always use the measuring cup or syringe provided by the termite control technician to measure each dose of the solution or suspension. Do notswitch dosing devices between different products; always use the device that comes in the product packaging. Stop taking acetaminophen and call your doctor if your symptoms get worse, you develop new or unexpected symptoms, including redness or swelling, your pain lasts for more than 10 days, or your fever gets worse or lasts more than 3 days. Also stop giving acetaminophen to your child and call your child's doctor if your child develops new symptoms, including redness or swelling, or if your child's pain lasts for longer than 5 days, or if a fever gets worse or lasts longer than 3 days. Do not give acetaminophen to a child who has a sore throat that is severe or does not go away, or that occurs along with fever, headache, rash, nausea, or vomiting. Call the child's doctor right away, because these symptoms may be signs of a more serious condition. Are there OTHER USES for this medicine? Acetaminophen may also be used in combination with aspirin and caffeine to relieve the pain associated with migraine headache. This medication is sometimes prescribed for other uses; ask your doctor or pharmacist for more information. What SPECIAL PRECAUTIONS should I follow? Before taking acetaminophen, ??? tell your doctor and pharmacist if you are allergic to acetaminophen, any other medications, orany of the ingredients in the product. Ask your pharmacist or check the label on the package for a list of ingredients. ??? tell your doctor and pharmacist what prescription and nonprescription medications, vitamins, nutritional supplements, or herbal products you are taking or plan to take while taking acetaminophen. Your doctor may need to change the doses of your medications or monitor you carefully for side effects. ??? The following nonprescription products may interact with acetaminophen:medications for pain, coughs, fever, and colds. Be sure to let your doctor and pharmacist know thatyou are taking these medications before you start taking acetaminophen. Do not start any of these medications while taking acetaminophen without discussing with your healthcare provider. ??? tell your doctor if you have ever developed a rash after taking acetaminophen. ??? tell your doctor if you are , plan to become , or are breast-feeding. If you become while taking acet aminophen, call your doctor. ??? if you drink three or more alcoholic beverages every day, do not take acetaminophen. Ask your doctor or pharmacist about the safe use of alcoholic beverages while taking acetaminophen. ??? you should know that combination acetaminophen products for cough and colds that contain nasal decongestants, antihistamines, cough suppressants, and expectorants should not be used in children younger than 2 years of age. Use of these medications in young children can cause serious and life-threatening effects or . In children 2 through 11 years of age, combination cough and cold products should be used carefully and only according to the directions on the label. ???if you have phenylketonuria (PKU, an inherited condition in which a special diet must be followed to prevent damage to your brain that can cause severe intellectual disability), you should know that some brands of acetaminophen chewable tablets may be sweetened with aspartame, a source of phenylalanine. What SPECIAL DIETARY instructions should I follow? Unless your doctor tells you otherwise, continue your normal diet. What should I do IF I FORGET to take a dose? This medication is usually taken as needed. If your doctor has told you to take acetaminophen regularly, take the missed dose as soon as you remember it. However, if it is almost time for the next dose, skip the missed dose and continue your regular dosing schedule. Do not take a double dose to make up for a missed one. What SIDE EFFECTS can this medicine cause? Some side effects can be serious. If you experience any of the following symptoms, stop taking acetaminophen and call your doctor immediately or get emergency medical attention: ??? red, peeling or blistering skin ??? rash ??? hives ??? itching ??? swelling of the face, throat, tongue, lips, eyes, hands, feet, ankles, or lower legs ??? hoarseness ??? difficulty breathing or swallowing Acetaminophen may cause other side effects. Call your doctor if you have any unusual problems whileyou are taking this medication. If you experience a serious side effect, you or your doctor may send a report to the Food and Drug Administration's (FDA) MedWatch Adverse Event Reporting program online (https://www.fda.gov/Safety/MedWatch) or by phone ( ). What should I know about STORAGE and DISPOSAL of this medication? Keep this medication in the container it came in, tightly closed, and out of reach of children. Store it at room temperature and away from excess heat and moisture (not in the bathroom). It is important to keep all medication out of sight and reach of children as many containers (such as weekly pill minders and those for eye drops, creams, patches, and inhalers) are not child-resistant and young children can open them easily. To protect young children from poisoning, always lock safety caps and immediately place the medication in a safe location ??? one that is up and away and out of their sight and reach. https://www.[employer].org Unneeded medications should be disposed of in special ways to ensure that pets, children, and otherpeople cannot consume them. However, you should not flush this medication down the toilet. Instead,the best way to dispose of your medication is through a medicine take-back program. Talk to your pharmacist or contact your local garbage/recycling department to learn about take-back programs in your community. See the FDA's Safe Disposal of Medicines website (https://goo.gl/c4Rm4p) for more information if you do not have access to a take-back program. What should I do in case of OVERDOSE? In case of overdose, call the poison control helpline at . Information is also available online at https://www.poisonhelp.org/help. If the victim has collapsed, had a seizure, has trouble breathing, or can't be awakened, immediately call emergency services at 711. If someone takes more than the recommended dose of acetaminophen, get medical help immediately, even if the person does not have any symptoms. Symptoms of overdose may include the following: ??? nausea ??? vomiting ??? loss of appetite ??? sweating ??? extreme tiredness ??? unusual bleeding or bruising ??? pain in the upper right part of the stomach ??? yellowing of the skin or eyes ??? flu-like symptoms What OTHER INFORMATION should I know? Before having any laboratory test, tell your doctor and the laboratory personnel that you are taking acetaminophen. Ask your pharmacist any questions you have about acetaminophen. It is important for you to keep a written list of all of the prescription and nonprescription (lpan-[id number]) medicines you are taking, as well as any products such as vitamins, minerals, or otherdietary supplements. You should bring this list with you each time you visit a doctor or if you areadmitted to a hospital. It is also important information to carry with you in case of emergencies. This report on medications is for your information only, and is not considered individual patient advice. Because of the changing nature of drug information, please consult your physician or pharmacist about specific clinical use. The [employer] [employer] represents that the information provided hereunder was formulated with a reasonable standard of care, and in conformity with professional standards in the field. The [employer] makes no representations or warranties, express or implied, including, but not limited to, any implied warranty of merchantability and/or fitness for a particular purpose, with respect to such information and specifically disclaims all such warranties. Users are advised that decisions regarding drug therapy are complex medical decisions requiring the independent, informed decision of an appropriate health urgent care physician assistant, and the information is provided for informational purposes only. The entire monograph for a drug should be reviewed for a thorough understanding of the drug's actions, uses and side effects. The [employer] does not endorse or recommend the use of any drug.The information is not a substitute for medical care. AHFS?? Patient Medication Information???. ?? Copyright, 2023. The [employer]??, [address], [address], [place], [place]. All Rights Reserved. Duplication for commercial use must be authorized by [facility]. Selected Revisions: November 09, 2022. AHFS?? Patient Medication Information???. ?? Copyright, 2023 ?? * Kacy Jameson MD: PERFORM Event Display: Patient Education Leaflets Authored Date: [id number] Exercises to Prevent Falls ?? [id number] Exercises to Prevent Falls Certain types of exercises may help make you less likely to fall. Try the ones below or do other exercises that your healthcare provider suggests. Depending on your health, you may need to start slowly. Don't let that stop you. Even small amountsof exercise can help you. Talk with your healthcare provider before starting any exercise program. Improve balance Many types of exercise can help improve balance.??Fabian chi and yoga are good examples. Here's another one to try. You can do it anytime and almost anywhere. ??? Stand next to a counter or solid support. ??? Push yourself up onto your tiptoes. ??? Hold for 5 seconds. If you start to lose your balance, hold on to the counter. ??? Rest and repeat 5 times. Work up to holding for 20 to 30 seconds, if you can. Increase flexibility Being more flexible makes it easier for you to move around safely. Try exercises like the seated hamstring stretch. o Sit in a chair and put one foot on a stool. o Straighten your leg and reach with both hands down either side of your leg. Reach as far down your leg as you can. o Hold for about 20 seconds. o Go back to the starting position. Then repeat 5 times. Switch legs. Build strength Resistance exercises help build str ength. You can do them without equipment. Or you can use weights, elastic bands, or special machines. One such exercise is called the biceps curl. You can hold a 1-pound weight or even a can of soup.Do this exercise at least 3 times a week. Strive for every day. - Sit up straight in a chair. - Keep your elbow close to your body and your wrist straight. - Bend your arm, moving your hand??up to your shoulder. Then slowly lower your arm. - Repeat 5 times. Switch to the other arm. Build your staying power Aerobic exercises make your heart and??lungs stronger so you can keep moving longer. Walking and swimming are 2 of the best types of exercises you can do. Using a stationary bike is great, too. Find an aerobic exercise that you enjoy. Start slowly and build up. Even??5 minutes is helpful. Aim for agoal of??30??minutes, at least??3??times a week. You don't have to do??30??minutes in??1 session. Break it up and walk a little throughout the day. ?? Starting out safely and slowly ??? Start easy. Slowly work up to doing more. ??? Talk with your healthcare??provider about the best exercises for you. ??? Call senior centers or health??clubs about exercise programs. ??? If needed, have a family member watch you walk every so often to check your stability. ??? Exercise with a friend. Choose an activity you both enjoy. ??? Be sure to gently warm up and cool down. ??? Drink fluids, such as water, to stay hydrated. If your provider recommended that you limit fluids, ask them how much is OK to drink while exercising. ??? Consider fabian chi or yoga to strengthen your balance. ??? Try exercises that you can do anytime, anywhere. Here are??2 examples. Have someone with you when you first try these: o Practice walking by placing??one foot right in front of the other. o Stand up and sit down??10 times. Repeat this throughout the day. ?? Last Reviewed Date: 2021 ?? [employer]. All rights reserved. This information is not intended as a substitute for professional medical care. Always follow your healthcare professional's instructions. ?? * Kacy Jameson MD: PERFORM Event Display: Patient Education Leaflets Authored Date: [id number] Fall??Prevention ?? [id number] Fall??Prevention Falls often take place due to slipping, tripping, or losing your balance. Millions of people fall every year and injure themselves.??Among older adults in the [place] falls are the most common cause oftraumatic brain injuries. Every 20 minutes, an older adult dies from a fall. Here are ways to reduce your risk of falling again: ??? Think about your fall. Was there anything that caused your fall that can be fixed, removed, or replaced? Make your home safe by keeping walkways clear of objects you may trip over, such as electrical cords. ??? Use nonslip pads under rugs. Don't use area rugs orsmall throw rugs. ??? Use nonslip mats in bathtubs and showers. ??? Hang grab rails by the toilet and inside and outside the shower. ??? Install handrails and lights on staircases. The handrails should be on both sides of the stairs. ??? Use night lights. ??? Don't walk in poorly lit areas. ??? Don't stand on chairs or wobbly ladders. ??? Use care when reaching overhead or looking up.??This position can cause a loss of balance. ??? Be sure your shoes fit well, are in good condition, and have non slip bottoms.? Wear shoes both inside and outside of your home. Don't go barefoot or wear slippers. ??? Be cautious when going up and down stairs, curbs, and when walking on uneven sidewalks. ??? If your balance is poor, consider using a cane or walker. Talk with your healthcare provider abouthaving a balance assessment. ??? If your fall was related to alcohol use, stop or limit alcohol intake.??Ask your provider for help if you think you may overuse alcohol and can't stop. ??? If your fall was related to use of sleeping medicines, talk with your provider about this.??You may need to reduce your dosage at bedtime if you wake up during the night to go to the bathroom.? To reducethe need for nighttime bathroom trips: o Don't drink fluids for several hours before going to bed oEmpty your bladder before going to bed o Men can keep a urinal at the bedside ??? Stay as active asyou can. Balance, flexibility, strength, and endurance all come from exercise. They all play a rolein preventing falls. Ask your provider which types of activity are right for you. Try to do some type of exercise every day. ??? Get your eyes checked once a year or more often if your vision changes??? If you have pets, know where they are before you stand up or walk so you don't trip over them. ??? Go over all your medicines with a pharmacist or other provider. This is to see if any of them could make you more likely to fall. Have this type of medicine review at least once every year. ??? Ifyour provider advises a new medicine, ask if the side effects will affect your balance. ??? Don't move quickly from one position to another. For instance, don't stand up fast from sitting. This can cause dizziness and may lead to a fall. ??? Sit down when putting on pants, socks, and shoes. This will make you less likely to lose your balance and fall. ??? Always let your provider know if you havefallen since your last visit. ??? Contact your provider right away if you're having balance problems or falling more often. Last Reviewed Date: 2021 ?? [id number] [employer]. All rights reserved. This information is not intended as a substitute for professional medical care. Always follow your healthcare professional's instructions. ?? * Event Display: Provider Clarification Note Please click on pdf link to open report * Event Display: Provider Clarification Note Please click on pdf link to open report Consult note * Rosita HERNANDEZ, Seth Hernandez: PERFORM Event Display: Consultation Note Authored Date: [id number] Patient: ??PAULETTE TANNER ? Age:??78 Years?Sex:??Female?:??1945?? Indication for Consult Recurrent falls, elevated troponin, mildly abnormal echocardiogram History of Present Illness/Interval History I have been asked to see this 78-year-old woman for evaluation of cardiac status in the setting of recurrent falls.?? I have reviewed her medical record and imaging studies.?? Unfortunately the patient is unable to provide any relevant history since she is disoriented to time and place. ?? According to the medical record there has been no documented history to suggest prior myocardialinfarction or known coronary artery disease.?? The patient has been treated with atorvastatin for hyperlipidemia and is on thyroid supplementation for hypothyroidism.?? The patient has evidently had multiple falls resulting in head trauma and what appears to be a small subdural hematoma.?? There have been no episodes of documented dysrhythmia.?? Episodes are not characteristic of cardiac syncope but the description of others. Review of Systems Unobtainable due to impaired mentation, disorientation. Physical Exam Vitals & Measurements T:??97.7?F?? HR:??60??(Peripheral)?? RR:??12?? BP:??124/113?? SpO2:??100%?? HT:??160??cm?? WT:??52.0??kg?? BMI:??20.31?? Weight lb/oz: 114 lb 10 oz General appearance: frail, no acute distress, resting comfortably, hard of hearing HEENT:??negative JVD, carotid pulses are +2 bilaterally without carotid bruit Respiratory: easy respiratory effort, lungs are clear Cardiac: S1S2, heart rate regular, no murmurs/heaves/rubs/gallops Abdomen round, soft, non-tender, +bowel sounds x4 quadrants, no HSM appreciated?? Extremities:?? no edema, skin is warm Pulses: radial and pedal bilaterally +2 Neurologic: initially sleepy but easily aroused, disoriented to place Mood and Affect: calm with intermittent agitation Integument no rashes , dry and intact, warm Intake and Output Today's Intake Total?480?? Today's Balance?480?? Clinical Range's Intake Total?480?? Clinical Range's Balance ?480?? Assessment/Plan Dementia Fall at home The patient has had numerous falls at home resulting in cervical trauma as well as head trauma.?? There is no documentation of hypotension.?? No dysrhythmias have been identified.?? There has been noevidence of ischemia or active changes on her electrocardiogram.?? The patient does have evidence of dementia and perhaps delirium.?? She has mild elevation of troponin without a significant delta.??There is an area of mild hypokinesis described in the inferolateral portion of her left ventricle in the setting of a normal ejection fraction.?? This is not convincing evidence of a coronary event.?? Monitoring has not demonstrated any evidence of high-grade dysrhythmia and the story does not confo rm to a pattern usually seen with cardiac syncope. ?? Accordingly at this time I would not be inclined to pursue further cardiac testing. Fracture of cervical vertebra, C5 Glaucoma Hard of hearing Hyperlipidemia Hypothyroidism Overactive bladder Seizure disorder Subdural hematoma, post-traumatic Allergies sulfamethoxazole-trimethoprim Home Medications Aspirin: TAKE 1 TABLET BY MOUTH EVERY DAY Atorvastatin: 20 mg, By Mouth, Daily Divalproex Sodium: TAKE 1 TABLET BY MOUTH TWICE A DAY Donepezil: TAKE 1 TABLET BY MOUTH EVERYDAY AT BEDTIME Famotidine: TAKE 1 TABLET BY MOUTH EVERY DAY AT BEDTIME NEEDED FOR HEARTBURN Fluticasone Nasal: 1 sprays, Nares, Both, Daily Levothyroxine: 75 mcg = 1 tablet, By Mouth, Daily Loratadine: 10 mg = 1 tablet, By Mouth, Daily Miscellaneous Rx (Knee high compression stockings): See Instructions, wear stockings while at your job Oxybutynin: TAKE 1 TABLET BY MOUTH EVERY DAY Timolol Ophthalmic: INSTILL 1 DROP INTO BOTH EYES EVERY DAY Hospital Medications Medications (14) Active SCHEDULED: (8) Acetaminophen 325 mg Tablet (Tylenol 325 mg oral tablet) ??975 mg, By Mouth, Every 8 hours Atorvastatin 20 mg Tablet (Lipitor Tablet) ??20 mg, By Mouth, Daily Divalproex Sodium 250mg ER Tablet (Depakote ER Tablet) ??250 mg, By Mouth, 2 times a day Enoxaparin 40 mg Inj (Enoxaparin Inj) ??40 mg 0.4 mL, Subcutaneous Injection, Daily Levothyroxine 75 mcg Tablet (levothyroxine 0.075 mg oral tablet) ??75 mcg, By Mouth, Daily NaCl 0.9% Flush 3ml (NaCL 0.9% Flush) ??3 mL, IV Push, Every 8 hours Oxybutynin 5 mg ER Tablet (oxybutynin 5 mg/24 hours oral tablet, extended release) ??15 mg, By Mouth, Daily Timolol 0.5% Ophthalmic Solution (Timolol 0.5% Ophth) ??1 drops, Eyes, Both, Daily CONTINUOUS: (0) PRN: (6) Docusate Sodium 100 mg Capsule (Docusate Sodium Capsule) ??100 mg 1 capsule, By Mouth, 2 times a day Famotidine 20 mg Tablet (famotidine 20 mg oral tablet) ??20 mg, By Mouth, Daily at bedtime Melatonin 3 mg Tablet (Melatonin Tablet) ??3 mg, By Mouth, Daily at bedtime NaCl 0.9% Flush 3ml (NaCL 0.9% Flush) ??3 mL, IV Push, Every 8 hours Polyethylene Glycol 17 Gm Powder (MiraLax Powder) ??17 Gm 1 pack/packet, By Mouth, Daily Senna Tablet ??8.6 mg 1 tablet, By Mouth, 2 times a day Lab Results Cardiology Labs WBC: 7.3 k/mm3 (02/13/24) RBC:??3.83 m/mm3??Low (02/13/24) Hgb:??11.2 Gm/dL??Low (02/14/24) Hct: 35.8 % (02/14/24) MCV: 94 femtoliters (02/13/24) MCH: 29.5 pg (02/13/24) MCHC:??31.4 Gm/dL??Low (02/13/24) Platelet Count: 155 k/mm3 (02/13/24) RDW-SD:??55 femtoliters??High (02/13/24) Nucleated RBC (Automated): 0 #/100 WBC'S (02/13/24) Abs. Neut: 2.8 k/mm3 (02/12/24) Abs. Lymph: 2.5 k/mm3 (02/12/24) Abs. [place]: 0.7 k/mm3 (02/12/24) Abs. Eo: 0.1 k/mm3 (02/12/24) Abs. Baso: 0 k/mm3 (02/12/24) Neut %: 45 % (02/12/24) [place] %:??11.9 %??High (02/12/24) Eos %: 2 % (02/12/24) Baso %: 0.2 % (02/12/24) Imm Gran: 0.3 % (02/12/24) Abs. Imm Gran: 0 k/mm3 (02/12/24) INR: 1 (02/12/24) Protime (PT): 11 seconds (02/12/24) Sodium: 139 mmol/L (02/14/24) Potassium: 4.3 mmol/L (02/14/24) Chloride: 103 mmol/L (02/14/24) Bicarbonate Level: 28 mmol/L (02/14/24) Glucose Level: 76 mg/dL (02/14/24) BUN: 14 mg/dL (02/14/24) Creatinine-Blood:??1.02 mg/dL??High (02/14/24) Calcium: 8.8 mg/dL (02/14/24) Protein, Total: 6.2 Gm/dL (02/12/24) Albumin: 3.6 Gm/dL (02/12/24) Alkaline Phosphatase:??129 units/L??High (02/12/24) AST (SGOT): 25 units/L (02/12/24) ALT (SGPT): 12 units/L (02/12/24) Bilirubin, Total: 0.7 mg/dL (02/12/24) TSH: 1.84 uIU/mL (02/12/24) Diagnostic Impression ECG ECG 12-Lead ?? 10:40:15 Please click on pdf link to open report ?? Signed By: Vivek Conteh DO ?? ECG 12-Lead ?? 10:40:15 Ventricular Rate: 61 BPM Atrial Rate: 61 BPM P-R Interval: 152 ms QRS Duration: 90 ms Q-T Interval: 446 ms QTC Calculation(Bazett): 448 ms P [place]: 45 degrees R [place]: -39 degrees T [place]: 1 degrees Normal sinus rhythm Left axis deviation Moderate voltage criteria for LVH, may be normal variant ( R in aVL , [place] product ) Abnormal ECG When compared with ECG of 22-Apr-2023 15:59, QRS duration has increased Confirmed by VIVEK CONTEH MD ([id number]) on 02/12/2024 4:20:41 PM ?? [place]: VIVEK CONTEH MD ?? Signed By: Vivek Conteh DO Echo Echocardiogram - Complete ?? 10:11:06 Summary The apical views are foreshortened. The left ventricular size is normal. The left ventricular wall thickness is mildly increased. The LV systolic function is normal . The left ventricular ejection fraction is 55-60 %. The basal to mid inferolateral wall is hypokinetic . Grade I, mild diastolic dysfunction with impaired LV relaxation. ?? The aortic valve is probably trileaflet . The aortic valve appears mildly calcified. There is no aortic stenosis. There is no aortic regurgitation. ?? The right ventricle is normal in size and function. ?? Comparison No prior study available for comparison. ?? Signature ?? Signed By: Jesus HERNANDEZ, Hernesto Reyes Problem List/Past Medical History Ongoing Bladder muscle dysfunction - overactive Depression Glaucoma H/O: hypothyroidism HLD - Hyperlipidemia Seizure disorder Procedure/Surgical History No qualifying data available. Social History Alcohol Use: Never. Tobacco Use: Never (less than 100 in lifetime). Family History No family history recorded. * Jerry El: PERFORM Event Display: Consultation Note Authored Date: Patient: ??PAULETTE TANNER ? Age:??78 Years?Sex:??Female?:??1945?? Trauma Activation Category Consult Trauma History Patient is a 78F seen for consult after multiple falls in the last two days, GCS 14, ?LOC, -ETOH.??Patient was originally seen at [facility] yesterday after a fall, and imaging and exam was negative for injury.?? She was discharged and when at home fell again last night and was brought back to [facility].??On new imaging at [facility], patient was shown to have a 5mm SDH with no shift but with the bleed and daily aspirin use, patient was transferred to [facility] for neurosurgery consult and trauma workup.?? On review of imaging from outside hospital, patient also has an age indeterminate C5 osteophyte fracture with reported no neuro deficits.?? Per patient who is a poor historian, she has no idea what happened or why she is here along with being very hard of hearing.?? When explained that she fell multiple times and had a brain bleed she still seemed confused and no recollection of events.?? She is in no pain and resting very comfortably.?? Problem List/Past Medical History Ongoing Bladder muscle dysfunction - overactive Depression Glaucoma H/O: hypothyroidism HLD - Hyperlipidemia Seizure disorder Medications Inpatient Acetaminophen Tablet, 650 mg, By Mouth, Every 4 hours, PRN Docusate Sodium Capsule, 100 mg= 1 capsule, By Mouth, 2 times a day, PRN Melatonin Tablet, 3 mg, By Mouth, Daily at bedtime, PRN MiraLax Powder, 17 Gm= 1 pack/packet, By Mouth, Daily, PRN NaCL 0.9% Flush, 3 mL, IV Push, Every 8 hours NaCL 0.9% Flush, 3 mL, IV Push, Every 8 hours, PRN Senna Tablet, 8.6 mg= 1 tablet, By Mouth, 2 times a day, PRN Home Aspirin Low Dose 81 mg oral delayed release tablet Detrol LA 4 mg oral capsule, extended release, 4 mg= 1 capsule, By Mouth, Daily, 23 refills divalproex sodium 250 mg oral tablet, extended release donepezil 5 mg oral tablet famotidine 20 mg oral tablet Flonase 0.05 mg/inh nasal spray, 1 sprays, Nares, Both, Daily, 5 refills Knee high compression stockings, See Instructions, 1 refills levothyroxine 0.075 mg oral tablet, 75 mcg= 1 tablet, By Mouth, Daily, 4 refills Lipitor Tablet, 20 mg, By Mouth, Daily, 3 refills loratadine 10 mg oral tablet, 10 mg= 1 tablet, By Mouth, Daily, PRN, 5 refills oxybutynin 15 mg/24 hr oral tablet, extended release sucralfate 1 gm/10 ml oral suspension timolol maleate 0.5% ophthalmic solution Allergies sulfamethoxazole-trimethoprim Social History Alcohol Use: Never. Tobacco Use: Never (less than 100 in lifetime). Review of Systems Constitutional:??No fever, chills, weakness or fatigue. Eyes:??No visual loss, blurred vision, double vision or yellow sclera ENT:??No hearing loss, sneezing, congestion, runny nose or sore throat. Respiratory:??No shortness of breath, cough or sputum production. Cardiovascular:??No chest pain, chest pressure or chest discomfort. Gastrointestinal:??No anorexia, nausea, vomiting or diarrhea. No abdominal pain Neurologic:??No headache, dizziness, syncope, unilateral weakness, ataxia, numbness or tingling in the extremities. Musculoskeletal:??No muscle pain, back pain, joint pain or stiffness. Psychiatric:??No depression or anxiety. Physical Exam Vitals & Measurements T:??97.5?F?? HR:??62??(Peripheral)?? RR:??16?? BP:??145/76?? SpO2:??97%?? Constitutional: Awake, in no distress. Mental Status: Oriented to person, place but not time Head: Normocephalic, atraumatic Eyes: Pupils are equal, round and reactive to light. Extraocular muscles intact. Ear, Nose and Throat: Oropharynx clear, mucous membranes moist. Ears and nose without masses, lesions or deformities. Trachea midline. Neck: Supple, Full range of motion, ecchymosis to posterior neck with slight tenderness to palp Respiratory: No increased WOB Cardiovascular: RRR to palp Gastrointestinal: Abdomen soft, non-tender, non-distended. Neurologic: Cranial nerves II-XII grossly intact. No focal neurological deficits.?? Moves all extremities spontaneously. Sensation intact bilaterally. Musculoskeletal: No cyanosis or clubbing. No gross deformities. Normal range of motion. Psychiatric: Normal mood and affect Impression and Plan Patient is a 78F seen for consult after multiple falls in the last two days, GCS 14, ?LOC, -ETOH.??Patient was originally seen at [facility] yesterday after a fall, and imaging and exam was negative for injury.?? She was discharged and when at home fell again last night and was brought back to [facility].??On new imaging at [facility], patient was shown to have a 5mm SDH with no shift but with the bleed and daily aspirin use, patient was transferred to [facility] for neurosurgery consult and trauma workup.?? Due to the SDH with ASA this is a BIG 3 and neurosurgery consult pending.?? Without new injuries of concern and multiple falls recently on AC, patient is best served admitted to medical service for frequent falls workup.?? Trauma will follow today and tertiary in the morning and likely sign off after that. ?? Injuries: ?? -SDH 5mm (BIG 3) ?? Consultants: ?? -Trauma -Neurosurgery ?? Plan: ?? -Med admit for freq falls -Appreciate NSGy recs -Continue to hold ASA/AC for now until NSGy recs -Trauma tertiary in [place] [phone] with any questions or concerns. Case discussed with attending surgeon: Dr. Mejia. Images Outside Images-CT Event Date: 02/12/2024 10:25:11 EST Updated: 02/12/2024 10:31 EST Outside Images-CT This document has an image Reason For Exam Trauma Outside Images-CT Outside Images-CT Event Date: 02/12/2024 10:19:11 EST Updated: 02/12/2024 10:24 EST Outside??Images-CT This document has an image Reason For Exam Trauma Outside Images-CT ?? Imaging reviewed prior to seeing patient * Won Mejia MD: PERFORM Event Display: Consultation Note Authored Date: [id number] I have personally seen and evaluated the patient, lab work and imaging on the day of below/above resident/PA/CRIME SCENE TECHNICIAN note. ??I agree with the documented resident/PA/CRIME SCENE TECHNICIAN note and plan for care, as above.? Won Mejia, ??, MPH, FACS Trauma, General Surgery and Surgical Critical Care?? * Na Martini: PERFORM Event Display: Consultation Note Authored Date: [id number] Patient: ??PAULETTE TANNER ? Age:??78 Years?Sex:??Female?:??1945?? Chief Complaint/Reason for Consult s/p fall, SDH History of Present Illness This is a 78 year-old female with a history of dementia and is hard of hearing, who presented as transfer from outside hospital??where she was evaluated s/p fall at home.??The patient??does recall having the fall, but denies any headaches, nausea, vomiting, vision changes, sensory changes, or weakness in her extremities.??CT head obtained at??outside hospital revealed a small left temporal SDH, prompting transfer to [facility] ED and request for neurosurgical consultation. Review of Systems Negative except as noted in HPI above. Physical Exam Vitals & Measurements T:??97.5?F?? HR:??62??(Peripheral)?? RR:??16?? BP:??145/76?? SpO2:??97%? General: Awake alert and NAD. HOB elevated. HEENT: NC/AT, trachea midline Respiratory: Normal I&E, no acute respiratory distress.? Neurologic:?? Mental status: Awake, alert & oriented to person and??place. Not oriented to time. Speech: clear, fluent and appropriate?? Follows simple and complex commands ?? Negative pronator drift ?? CN: PERRL, EOMI?? No facial weakness facial sensation intact hearing intact to finger rub tongue midline shoulder shrug 5/5 ?? Motor:?? Normal bulk and tone ?? Upper extremities: ? R ? L?? Deltoid?? 5/5?5/5 Biceps?5/5?5/5 Triceps?5/5?5/5 Wrist extension?5/5?5/5 Finger paving crew foreman?5/5?5/5 ?? Lower extremities: R?L IP?5/5?5/5 Quads?5/5?5/5 Tibialis anterior?5/5?5/5 EHL?5/5?5/5 Gastroc/ [place]?5/5?5/5 ?? Sensation??grossly intact to light touch throughout upper extremities and lower extremities? Reflexes: ? No pagan's ? No clonus ?? Assessment/Plan This is a 78 year-old female with a history of dementia and is hard of hearing, who presented as transfer from outside hospital??where she was evaluated s/p fall at home.??The patient??does recall having the fall, but denies any headaches, nausea, vomiting, vision changes, sensory changes, or weakness in her extremities.??CT head obtained at??outside hospital revealed a small left temporal SDH without sign of mass effect. On exam, the patient is slightly confused (reportedly at neurologic baseline, due to dementia), butwithout other focal neurologic deficits. ?? Recommendations: No neurosurgical intervention at this time. q4h neuro checks. Keep HOB elevated at 30 degrees or greater. Avoid hypertension. No need for routine repeat CT head. STAT CT head for decline in in neuro exam.?? If patient remains stable and chemical DVT ppx is indicated, this may be considered [address] Hold aspirin for at least two weeks. At that point, the decision to restart antiplatelet therapy??will??be deferred to the??prescribing provider- restarting antiplatelet therapy may cause recurrent or progression of hemorrhage and must be balanced against the risks of NM/DVT/PE/CVA in individual patients. These risks must be discussed by the PCP/cardiology/hospitalist with the patient/family prior to making any decisions. In general only patients with exceptionally high risk of NM/DVT/PE/CVA should be restarted or initiated on anticoagulation or antiplatelet therapy.?? C5 osteophyte fracture is not an unstable fracture and does note require [place] collar.?? No further routine inpatient or outpatient neurosurgical follow-up indicated at this time.?? [place] [phone] for any questions or if exam changes. Medical management per primary team. ?Case and plan of care discussed with??on-call attending neurosurgeon, Dr. Hardy Total Time Spent I personally spent a total of??45 minutes, including both [id number] and [id number] time onthe date of the encounter, addressing the above diagnoses. Activities performed in this time include chart review, obtaining / reviewing history, performing amedically necessary evaluation, documentation and Review of tests performed by other providers including medical decision making of Moderate Complexity (45-59 minutes for NEW patient) Problem List/Past Medical History Ongoing Bladder muscle dysfunction - overactive Depression Glaucoma H/O: hypothyroidism HLD - Hyperlipidemia Seizure disorder Procedure/Surgical History No qualifying data available. Home Medications Aspirin: TAKE 1 TABLET BY MOUTH EVERY DAY Atorvastatin: 20 mg, By Mouth, Daily Divalproex Sodium: TAKE 1 TABLET BY MOUTH TWICE A DAY Donepezil: TAKE 1 TABLET BY MOUTH EVERYDAY AT BEDTIME Famotidine: TAKE 1 TABLET BY MOUTH EVERY DAY AT BEDTIME NEEDED FOR HEARTBURN Fluticasone Nasal: 1 sprays, Nares, Both, Daily Levothyroxine: 75 mcg = 1 tablet, By Mouth, Daily Loratadine: 10 mg = 1 tablet, By Mouth, Daily, PRN (nasa) Miscellaneous Rx (Knee high compression stockings): See Instructions, wear stockings while at your job Oxybutynin: TAKE 1 TABLET BY MOUTH EVERY DAY Sucralfate: TAKE 10 ML BY MOUTH 3 TIMES DAILY (BEFORE MEALS) FOR 30 DAYS. Timolol Ophthalmic: INSTILL 1 DROP INTO BOTH EYES EVERY DAY Tolterodine: 4 mg = 1 capsule, By Mouth, Daily Allergies sulfamethoxazole-trimethoprim Social History Alcohol Use: Never. Tobacco Use: Never (less than 100 in lifetime). Family History No family history recorded. Patient Care team information Care Team Personnel Name: Akanksha Nowak RN Position: [facility] RN Member Role: Primary Care Nurse Name: Brooke Smith RN Position: [facility] RN Member Role: Primary Care Nurse Name: Mary Steele RN Position: S RN Member Role: Primary Care Nurse Name: Not on Staff, PCP Position: [facility] Physician (General Medicine) Member Role: PCP Name: Katelin Irwin RN Position: [facility] RN Member Role: Primary Care Nurse Name: Chay Plascencia RN Position: S RN Member Role: Primary Care Nurse Name: Barbra Sadler RN Position: S RN Member Role: Primary Care Nurse Name: Kristy Aguiar RN Position: [facility] RN Member Role: Primary Care Nurse Care Team Related Persons Name: BREANA TANNER Name: SANIYA TANNER Insurance Providers Guarantor name: JOSE MANUEL Health Plan Information #: 1 Payer: [facility] [employer] OPT Member Number: [id number] Policy Number: JOSE MANUEL Group Number: [id number] Plan Information #: 2 Payer: [facility] [employer] OPT Member Number: [id number] Policy Number: JOSE MANUEL Group Number: [id number]
--- OUTSIDE RECORDS SUMMARY | 2024-03-03 19:19 | XMS_ITS | Continuity of Care Document ---
Author Organization [facility] Address [address] [place] [address]- Care Team Providers Care School Based Therapist Name Role Phone Deven HERNANDEZ, Hunter Callaway Primary Care Physician Encounter [facility] Date(s): 02/27/24 - 03/01/[address] [id number] Discharge Disposition: A-Transfer [facility] Attending Physician: Nicole Lares MD Admitting Physician: Connie Schroeder MD Referring Physician: Not on Staff, Referring [...] Quantity: 30.0 Unit: tablet Repeat number: 1 Toprol XL 25 mg oral tablet, extended release 25 mg, XL Tablet, By Mouth, MANDI, 03/01/24 11:15:00 AM EST Start Date: 03/01/24 Stop Date: 03/01/24 Status: Completed Repeat number: 1 Trazodone Tablet 25 mg, [...] bladder Confirmed Active Seizure disorder Confirmed Active Results Radiology Reports * Exam Date Time Procedure Performing Provider Status 03/01/24 12:[address] Head/Brain W/O Contrast Wendi Motley; Auth (Verified) Notes: (CT Head/Brain W/O Contrast) Reason For Exam: Slurred speech, initial CT scan negative for stroke;Other: RESULT: CT Head/Brain W/O Contrast CT Head/Brain W/O Contrast INDICATION: Reason: Other:; Slurred speech, initial CT scan negative for stroke; Clinical Question(s): Infarction TECHNIQUE: Noncontrast head CT using axial technique and reconstructed in axial and coronal planes.Iterative reconstruction techniques are used to optimize dose and image quality. CTDIvol Head: 43.30 mGy, DLP Head: 793 mGy*cm. COMPARISON: CT head without contrast 02/27/2024, 02/12/2024. FINDINGS: Lacquer Sizer view findings, lines and tubes: None. BRAIN AND EXTRA-AXIAL SPACES: No parenchymal hemorrhage, midline shift, or mass effect. Plummer-white matter differentiation is wellpreserved. No acute infarct. Negative insular ribbon and hyperdense vessel signs. Normal ventricular and sulcal configuration for age. Moderate low-density white matter changes. No subarachnoid hemorrhage. No subdural or epidural collection. CALVARIUM, SKULL BASE, AND SOFT TISSUES: No fractures or suspicious bony lesions. The paranasal sinuses and mastoid air cells are clear. Visualized orbits and globes are intact. The extracranial soft tissues are unremarkable. IMPRESSION: No acute intracranial pathology. WSN: [id number] Ordering Physician: Nicole Lares Dictated By: Derick Stone MD Dictated Date/Time: 03/01/24 1:38 pm Reviewed By: Derick Stone MD Signed By: Derick Stone MD Signed Date/Time: 03/01/24 1:38 pm Transcribed By: SANDRA Transcribed Date/Time: 03/01/24 1:31 pm * Exam Date Time Procedure Performing Provider Status 02/27/24 9:[address] Angio Neck Carlos Vieyra; Auth (Verified) Notes: (CT Angio Neck) Reason For Exam: slurring of speech;Other: RESULT: CT Angio Neck CT Angio Head, CT Angio Neck Reason: Other:; slurring of speech; Clinical Question(s): Other:; ? New slurring aphasia / Other: TECHNIQUE: CT angiogram of the head and neck was performed after bolus administration of intravenous contrast. 75 mL of Isovue 300 was administered intravenously. Coronal and sagittal MIP reformattedimages were obtained. Additional 3-D images were created on a separate workstation under concurrent supervision by the attending radiologist. All stenoses are measured using NASCET criteria. Weight-based protocol using automatic tube modulation was used to optimize exposure parameters. RADIATION DOSE PARAMETERS: CTDIvol Body: 27.27 mGy, DLP Body: 519 mGy*cm. COMPARISON: Noncontrast CT head performed concurrently. FINDINGS: There is a 3 vessel arch. Mural calcified and noncalcified atherosclerotic plaques are seen along the visualized aortic arch and the supraaortic proximal great neck vessels. No hemodynamically significant stenosis. The right common carotid artery is normal in caliber. The right carotid bulb is patent. The right proximal ICA shows 0% stenosis by NASCET criteria. The left common carotid artery is normal in caliber. The left carotid bulb is patent. The left proximal ICA shows 0% stenosis by NASCET criteria. Right vertebral artery: Patent without stenosis. Left vertebral artery: Dominant. Patent without stenosis. Cervical spine: Straightening. Multiple levels of spondylosis. Soft tissues and lung apices: The visualized upper lungs are degraded by motion artifacts. No definite acute pathology. Bilateral thyroid lobes are normal. There is no acute abnormality throughout the soft tissue neck. [place]: Concurrent CT of head showed no acute pathology. Generalized volume loss and bilateral periventricular hypodensities are noted. There is a small subcutaneous hematoma in the left parietal scalp. Bilateral internal carotid arteries at the skull base have scattered mural calcifications. No hemodynamically significant stenosis is seen. The left posterior communicating artery is visualized. No posterior communicating artery aneurysm is seen. Bilateral ACAs, MCAs and their branches are patent. No stenosis or vessel cut off is seen. No definite aneurysm is noted. Bilateral intracranial vertebral arteries show no definite stenosis. The vertebrobasilar junction is normal. The basilar artery is patent. No stenosis or dissection is seen. There is no basilar tip aneurysm. The left P1 segment is hypoplastic. There is a origin of left LOAN AND CREDIT MANAGER. Otherwise beveling machine operator andtheir branches are patent. The superior sagittal sinuses, the straight sinus, bilateral transverse and sigmoid sinuses: Patentwithout dural sinus thrombosis. IMPRESSION: No cutoff or high-grade stenosis of the major branches of the intracranial arteries. No aneurysm, stenosis, or vascular malformations present. The right proximal internal carotid artery show no significant stenosis by NASCET criteria. The left proximal internal carotid artery show no significant stenosis by NASCET criteria. The right cervical vertebral artery shows no significant stenosis. The left cervical vertebral artery shows no significant stenosis. REFERENCE: NASCET Criteria: The degree of internal carotid stenosis is based on NASCET Criteria: Normal: No stenosis Mild: Less than 50% stenosis Moderate: 50-69% stenosis Severe: 70-99% stenosis Total occlusion: No detectable patent lumen. The preliminary reports were given by the [facility]. WSN: [id number] Ordering Physician: Connie Schroeder Dictated By: Silvano Hart MD Dictated Date/Time: 02/28/24 9:15 am Reviewed By: Silvano Hart MD Signed By: Silvano Hart MD Signed Date/Time: 02/28/24 9:15 am Transcribed By: SANDRA Transcribed Date/Time: 02/28/24 9:15 am * Exam Date Time Procedure Performing Provider Status 02/27/24 9:[address] Angio Head Carlos Vieyra; Auth (Verified) Notes: (CT Angio Head) Reason For Exam: slurring of speech;Other: RESULT: CT Angio Head CT Angio Head, CT Angio Neck Reason: Other:; slurring of speech; Clinical Question(s): Other:; ? New slurring aphasia / Other: TECHNIQUE: CT angiogram of the head and neck was performed after bolus administration of intravenous contrast. 75 mL of Isovue 300 was administered intravenously. Coronal and sagittal MIP reformattedimages were obtained. Additional 3-D images were created on a separate workstation under concurrent supervision by the attending radiologist. All stenoses are measured using NASCET criteria. Weight-based protocol using automatic tube modulation was used to optimize exposure parameters. RADIATION DOSE PARAMETERS: CTDIvol Body: 27.27 mGy, DLP Body: 519 mGy*cm. COMPARISON: Noncontrast CT head performed concurrently. FINDINGS: There is a 3 vessel arch. Mural calcified and noncalcified atherosclerotic plaques are seen along the visualized aortic arch and the supraaortic proximal great neck vessels. No hemodynamically significant stenosis. The right common carotid artery is normal in caliber. The right carotid bulb is patent. The right proximal ICA shows 0% stenosis by NASCET criteria. The left common carotid artery is normal in caliber. The left carotid bulb is patent. The left proximal ICA shows 0% stenosis by NASCET criteria. Right vertebral artery: Patent without stenosis. Left vertebral artery: Dominant. Patent without stenosis. Cervical spine: Straightening. Multiple levels of spondylosis. Soft tissues and lung apices: The visualized upper lungs are degraded by motion artifacts. No definite acute pathology. Bilateral thyroid lobes are normal. There is no acute abnormality throughout the soft tissue neck. [place]: Concurrent CT of head showed no acute pathology. Generalized volume loss and bilateral periventricular hypodensities are noted. There is a small subcutaneous hematoma in the left parietal scalp. Bilateral internal carotid arteries at the skull base have scattered mural calcifications. No hemodynamically significant stenosis is seen. The left posterior communicating artery is visualized. No posterior communicating artery aneurysm is seen. Bilateral ACAs, MCAs and their branches are patent. No stenosis or vessel cut off is seen. No definite aneurysm is noted. Bilateral intracranial vertebral arteries show no definite stenosis. The vertebrobasilar junction is normal. The basilar artery is patent. No stenosis or dissection is seen. There is no basilar tip aneurysm. The left P1 segment is hypoplastic. There is a origin of left LOAN AND CREDIT MANAGER. Otherwise beveling machine operator andtheir branches are patent. The superior sagittal sinuses, the straight sinus, bilateral transverse and sigmoid sinuses: Patentwithout dural sinus thrombosis. IMPRESSION: No cutoff or high-grade stenosis of the major branches of the intracranial arteries. No aneurysm, stenosis, or vascular malformations present. The right proximal internal carotid artery show no significant stenosis by NASCET criteria. The left proximal internal carotid artery show no significant stenosis by NASCET criteria. The right cervical vertebral artery shows no significant stenosis. The left cervical vertebral artery shows no significant stenosis. REFERENCE: NASCET Criteria: The degree of internal carotid stenosis is based on NASCET Criteria: Normal: No stenosis Mild: Less than 50% stenosis Moderate: 50-69% stenosis Severe: 70-99% stenosis Total occlusion: No detectable patent lumen. The preliminary reports were given by the [facility]. WSN: [id number] Ordering Physician: Connie Schroeder Dictated By: Silvano Hart MD Dictated Date/Time: 02/28/24 9:15 am Reviewed By: Silvano Hart MD Signed By: Silvano Hart MD Signed Date/Time: 02/28/24 9:15 am Transcribed By: SANDRA Transcribed Date/Time: 02/28/24 9:15 am * Exam Date Time Procedure Performing Provider Status 02/27/24 1:57 PM Chest 2 Views Frontal and Lat Doreen Colon; Dior (Verified) Notes: (Chest 2 Views Frontal and Lat) Reason For Exam: Shortness of Breath, Fever;Other: RESULT: Chest 2 Views Frontal and Lat Chest 2 Views Frontal and Lat Reason: Altered mental status, shortness of breath, fever; Clinical Question(s): Pneumonia COMPARISON: 04/09/2023 FINDINGS: LINES AND TUBES: None. LUNGS AND PLEURA: Clear lungs. Normal pulmonary vascularity. No pleural effusion. No pneumothorax. HEART, MEDIASTINUM AND KEATON: Heart is normal in size. Normal mediastinal and hilar contour. BONES AND SOFT TISSUES: No acute abnormality. IMPRESSION: No acute abnormality. WSN: [id number] Ordering Physician: Refugio Harding Dictated By: Minh Collins MD Dictated Date/Time: 02/27/24 2:01 pm Reviewed By: Minh Collins MD Signed By: Minh Collins MD Signed Date/Time: 02/27/24 2:01 pm Transcribed By: SANDRA Transcribed Date/Time: 02/27/24 2:00 pm * Exam Date Time Procedure Performing Provider Status 02/27/24 1:[address] Head/Brain W/O Contrast Eri Hart; Auth (Verified) Notes: (CT Head/Brain W/O Contrast) Reason For Exam: Behavior Problem RESULT: CT Head/Brain W/O Contrast CT Head/Brain W/O Contrast Reason: Altered mental status with aggressive behavior TECHNIQUE: Noncontrast head CT using axial technique and reconstructed in axial and coronal planes.Iterative reconstruction techniques are used to optimize dose and image quality. COMPARISON: 04/22/2023 FINDINGS: Lacquer Sizer view findings, lines and tubes: None. BRAIN AND EXTRA-AXIAL SPACES: No parenchymal hemorrhage, midline shift, or mass effect. Plummer-white matter differentiation is wellpreserved. No acute infarct. Ventricles, sulci, and basilar cisterns are normal. No white matter lesions. No subarachnoid hemorrhage. No subdural or epidural collection. CALVARIUM, SKULL BASE, AND SOFT TISSUES: No fractures or suspicious bony lesions. Hyperostosis frontalis. The paranasal sinuses and mastoid air cells are clear. Visualized orbits and globes are intact. The extracranial soft tissues are unremarkable. IMPRESSION: No acute intracranial pathology. WSN: [id number] Ordering Physician: Refugio Harding Dictated By: Minh Collins MD Dictated Date/Time: 02/27/24 1:53 pm Reviewed By: Minh Collins MD Signed By: Minh Collins MD Signed Date/Time: 02/27/24 1:53 pm Transcribed By: SANDRA Transcribed Date/Time: 02/27/24 1:52 pm Vital Signs Most recent to oldest [Reference Range]: 1 2 3 Height 159 cm (03/01/24 4:30 AM) 159 cm (02/28/24 7:53 PM) 159 cm (02/28/24 1:33 PM) Weight 55 kg (02/28/24 1:33 PM) 55 kg (02/28/24 8:44 AM) 55 kg (02/28/24 6:14 AM) Oxygen Saturation [94-100 %] 91 % *L* (03/01/24 11:00 AM) 96 % (03/01/24 7:00 AM) 96 % (03/01/24 4:30 AM) Pulse Rate [55-90 bpm] 72 bpm (03/01/24 11:49 AM) 61 bpm (03/01/24 11:00 AM) 74 bpm (03/01/24 7:00 AM) Body Mass Index [18.5-24.99 kg/m2] 21.76 kg/m2 (02/28/24 1:33 PM) 21.76 kg/m2 (02/28/24 8:44 AM) 21.76 kg/m2 (02/28/24 6:14 AM) Blood Pressure [90-138/55-84 mm Hg] 147/99mm Hg *H* (03/01/24 11:49 AM) 147/99mm Hg *H* (03/01/24 11:00 AM) 146/78mm Hg *H* (03/01/24 7:00 AM) Respiratory Rate [16-30 br/min] 18 br/min (03/01/24 11:00 AM) 18 br/min (03/01/24 7:00 AM) 18 br/min (03/01/24 4:30 AM) Temperature [96.8-100.4 DegF] 97 DegF (03/01/24 11:00 AM) 97.3 DegF (03/01/24 7:00 AM) 97.7 DegF (03/01/24 4:30 AM) Mode of Delivery (Oxygen) Room air (03/01/24 11:00 AM) Room air (03/01/24 7:00 AM) Room air (03/01/24 4:30 AM) Blood pressure sites Arm, left (03/01/24 11:00 AM) Arm, left (03/01/24 7:00 AM) Arm, right (03/01/24 4:30 AM) Temperature Route Oral (03/01/24 11:00 AM) Oral (03/01/24 7:00 AM) Oral (03/01/24 4:30 AM) Dry Weight 55 kg (02/28/24 1:33 PM) 55 kg (02/28/24 8:44 AM) 55 kg (02/28/24 6:14 AM) Weight Obtained Via Patient/family state d (02/27/24 12:46 PM) Social History Social History Type Response Smoking Status Never (less than 100 in lifetime) entered on: 04/22/23 Sex Sex Representation Female (finding) History and physical note * Elda HERNANDEZ, Connie: PERFORM, MODIFY Event Display: History and Physical Hospital Authored Date: [id number] Patient: ??JEANNIE MASCORRO ? Age:??78 Years?Sex:??Female?:??1945?? Chief Complaint/Reason for Consultation coming from [facility], admitted there on 02/16 for SDH. increasing aggression while at facility w/ violence towards daughter. Hx of dementia, no blood thinners. History of Present Illness This is a 78-year-old old female with hearing loss, past medical history significant for recent subdural hematoma needing admission at [facility], dementia living with her daughter up until few weeks ago athome, history of overactive bladder, depression, glaucoma, hypothyroidism, dyslipidemia, dementia, seizure disorder who presented to ED on 02/26 from [place] facility for altered mentation, increased aggression and possible slurring of speech.?? Last well-known time is not known but her slurring of speech is likely started more than 24 hours ago.?? History obtained from ER provider who called the senior living, discussion with ER provider as well as patient's daughter and healthcare proxy Salvador over the phone.?? Patient was unable to provide any history due to her cognitive impairment at this time. ?? In the ER she was hemodynamically stable with stable labs, UA negative, COVID RSV flu negative afebrile.?? CT head was done to rule out progression of subdural hematoma and no acute abnormality was noted.?? No evidence of hematoma. Chest x-ray showed no pneumonia or acute abnormality ?? Neurology was not consulted as it was not clear if her slurring was new versus old and last well-known time was likely more than 24 hours.?? Patient was noted to move all her extremities well and noted to be awake and alert. ?? During my encounter, RN reported that patient has been increasingly agitated, upon speaking with her, her speech is dysarthric, unintelligible for the most part, but overall patient was able to express that she wants to go home .?? She kept asking me to call her daughter.?? She kept asking me when she can go.?? She became increasingly frustrated with the idea that she is in the hospital and not going home. She denied any pain nausea.?? She was unable to follow commands consistently.? Patient's daughter shared that patient was doing well up until her recent fall around 2 weeks ago when she was admitted to [facility] with subdural hematoma and was discharged to rehab, she has been asking to go home.?? At baseline she does have dementia and daughter mentioned that her speech is unintelligible for the most part.?? The daughter is able to understand her but the patient does not hold conversation usually.?? She is not aggressive at baseline. Review of Systems No report of nausea vomiting fever Patient unable to provide history Objective Measurements?? Height: 159 cm (02/27/24) Weight: 55 kg (02/27/24) Dry Weight: 55 kg (02/27/24) ? Vital Signs?? Temperature: 97.9 DegF (02/27/24 12:03:00) Temperature Route: Oral (02/27/24 12:03:00) Pulse Rate: 70 bpm (02/27/24 17:18:00) Respiratory Rate: 18 br/min (02/27/24 17:18:00) Systolic Blood Pressure:??163 mm Hg??High (02/27/24 17:18:00) Diastolic Blood Pressure:??98 mm Hg??High (02/27/24 17:18:00) Blood pressure sites: Arm, left (02/27/24 17:18:00) Mean Arterial Pressure: 87 mm Hg (02/27/24 12:03:00) Pulse Pressure: 65 mm Hg (02/27/24 17:18:00) Oxygen Saturation: 96 % (02/27/24 17:18:00) Mode of Delivery (Oxygen): Room air (02/27/24 17:18:00) ? Physical Exam NAD, restless HEENT: no icterus, mucosa moist Resp: CTABL , No rales/ wheezes/ ronchi, poor efforts CVS: RRR, No JVD ABD: soft, NT, ND, NABS Extm : no edema, PP 2+ CIVIL CLERK: Alert Ox??self,??she indicated??she knows she is in the hospital, wants to go home mood : Restless, getting agitated??after knowing??she cannot go home right away Skin: No rash. Warm to touch Assessment/Plan Diagnoses 1. ??Delirium ??(R41.0) 3. ??Dementia ??(F03.90) 4. ??Glaucoma ??(H40.9) 5. ??H/O: hypothyroidism ??(Z86.39) 6. ??HLD - Hyperlipidemia ??(E78.5) 7. ??Seizure disorder ??(G40.909) 8. ??Subdural hematoma ??(S06.5XAA) 9. ??Slurring of speech ??(R47.81) ?? Assessment:??This is a 78-year-old old female with hearing loss, past medical history significant for recent subdural hematoma needing admission at [facility], dementia living with her daughter up until fewweeks ago at home, history of overactive bladder, depression, glaucoma, hypothyroidism, dyslipidemia, dementia, seizure disorder who presented to ED on 02/26 from [place] facility for altered mentation, increased aggression and possible slurring of speech.??Last well-known time is not known but her slurring of speech is likely started more than 24 hours ago.? Delirium (R41.0) ?Associated with??Slurring of speech (R47.81),??Dementia (F03.90) ? At baseline??patient calm cooperative, has dementia, was living with her daughter up until few weeks ago when she had a fall and??subdural hematoma??and admitted to [facility]. She was sent from??[place]??facility??for??slurring of speech,??altered mental status,??aggression. ?? On examination she has no focal deficits.??Aspirin??her home medication has been hold due to subdural hematoma??noted on??02/18/2024.?? CT head??in ER showed no acute abnormality.??No evidence of infection.??No evidence of metabolic derangements on the labs.??No abdomen pain. Patient had??COVID-vaccine for the first time 2 days ago,??although unclear??if culprit??for changein mentation ?? Plan Due to??apparent change of??mentation and??slurring of speech, will get CTA head and neck??and we could try MRI brain but??I doubt if she would??tolerate MRI.? If aspirin as needed??needed to be discussed with neurosurgery??given recent subdural hematoma ?? Delirium precautions, hold loratidine??donepezil while agitated Monitor for any seizure activity Continue Depakote 250 twice daily Zyprexa??p.o.??twice daily as needed, IM only if needed for significant agitation, I discussed with??her daughter May need placement in memory care unit going forward,??palliative care??discussed with daughter,??she will think about it ?? Glaucoma (H40.9):??Timolol ?? H/O: hypothyroidism (Z86.39):??Check thyroid function, continue levothyroxine ?? HLD - Hyperlipidemia (E78.5):??Lipitor ?? Seizure disorder (G40.909):??Depakote 250 twice daily monitor for seizure, daughter reports sometimes she?has episodes where she seems??''lost''??for a few minutes portable EEG ?? Subdural hematoma (S06.5XAA):??Repeat CT head??shows no hematoma ?? VTE Prophylaxis:??SCD, holding off chemical ppz due to recent SDH ?? Discharge Planning:??? memory care unit ?? Code Status:??DNR DNI??per daughter ?Order Code Status:??Code Status Ordered ?? Discussed above thought process and plan of management with the daughter, I discussed??palliative care??as daughter is frustrated and??somewhat sad??to see what her mother is going through ? Histories Allergies Allergies ?(Active and Proposed Allergies Only) sulfamethoxazole-trimethoprim? (Severity: Unknown severity, Onset: Unknown) ? Past Medical History/Problem List Active Problems(9) Bladder muscle dysfunction - overactive Dementia Depression Glaucoma H/O: hypothyroidism Hard of hearing HLD - Hyperlipidemia Overactive bladder Seizure disorder ? Past Surgical History No surgery history documented. ? Social History Alcohol Details:??Use: Never. Tobacco Details:??Use: Never (less than 100 in lifetime). ? Family History None pertinent noted ?? Medications Home Medications Acetaminophen (Tylenol 325 mg oral tablet)?975?Milligram?By [...] Loratadine (loratadine 10 mg oral tablet)?10?Milligram?1?tablet?By Mouth?Daily Oxybutynin (oxybutynin 15 mg/24 hr oral tablet, extended release)?TAKE 1 TABLET BY MOUTH EVERY DAY Timolol Ophthalmic (timolol maleate 0.5% ophthalmic solution)?INSTILL 1 DROP INTO BOTH EYES EVERY DAY ? Results Recent Labs BLOOD COUNT & DIFF WBC 6.5 k/mm3 ()?? 02/27/2024 13:17 RBC 3.73 m/mm3 (Low)?? 02/27/2024 13:17 Hgb 11.6 Gm/dL (Low)?? 02/27/2024 13:17 Hct 36.0 % ()?? 02/27/2024 13:17 MCV 96.5 femtoliters ()?? 02/27/2024 13:17 MCH 31.1 pg ()?? 02/27/2024 13:17 MCHC 32.2 Gm/dL (Low)?? 02/27/2024 13:17 Platelet Count 149 k/mm3 (Low)?? 02/27/2024 13:17 RDW-SD 60.2 femtoliters (High)?? 02/27/2024 13:17 MPV 11.5 femtoliters ()?? 02/27/2024 13:17 Nucleated RBC (Automated) 0.0 #/100 WBC'S ()?? 02/27/2024 13:17 Abs. NRBC 0.0 k/mm3 ()?? 02/27/2024 13:17 Abs. Neut 1.6 k/mm3 ()?? 02/27/2024 13:17 Abs. Lymph 4.1 k/mm3 (High)?? 02/27/2024 13:17 Abs. [place] 0.7 k/mm3 ()?? 02/27/2024 13:17 Abs. Eo 0.0 k/mm3 ()?? 02/27/2024 13:17 Abs. Baso 0.0 k/mm3 ()?? 02/27/2024 13:17 Neut % 24.7 % (Low)?? 02/27/2024 13:17 Lymph % 62.4 % (High)?? 02/27/2024 13:17 [place] % 11.4 % (High)?? 02/27/2024 13:17 Eos % 0.6 % ()?? 02/27/2024 13:17 Baso % 0.6 % ()?? 02/27/2024 13:17 Imm Gran 0.3 % ()?? 02/27/2024 13:17 Abs. Imm Gran 0.0 k/mm3 ()?? 02/27/2024 13:17 ?? CHEM GENERAL Sodium 141 mmol/L ()?? 02/27/2024 13:17 Potassium 4.5 mmol/L ()?? 02/27/2024 13:17 Chloride 103 mmol/L ()?? 02/27/2024 13:17 Bicarbonate Level 28 mmol/L ()?? 02/27/2024 13:17 Anion Gap 10 ()?? 02/27/2024 13:17 Glucose Level 79 mg/dL ()?? 02/27/2024 13:17 BUN 11 mg/dL ()?? 02/27/2024 13:17 Creatinine-Blood 0.87 mg/dL ()?? 02/27/2024 13:17 Estimated GFR Creatinine 68 ML/MIN/1.73 M2 ()?? 02/27/2024 13:17 Calcium 8.7 mg/dL ()?? 02/27/2024 13:17 Protein, Total 6.1 Gm/dL (Low)?? 02/27/2024 13:17 Albumin 3.6 Gm/dL ()?? 02/27/2024 13:17 AG Ratio 1.4 ()?? 02/27/2024 13:17 Alkaline Phosphatase 146 units/L (High)?? 02/27/2024 13:17 Lipase 30 units/L ()?? 02/27/2024 13:17 AST (SGOT) 29 units/L ()?? 02/27/2024 13:17 ALT (SGPT) 24 units/L ()?? 02/27/2024 13:17 Bilirubin, Total 0.5 mg/dL ()?? 02/27/2024 13:17 ?? UA/URINALYSIS Appear/Color, Urine YELLOW ()?? 02/27/2024 13:24 Clarity CLEAR ()?? 02/27/2024 13:24 Specific [place], Urine 1.015 ()?? 02/27/2024 13:24 pH, Urine 7.5 ()?? 02/27/2024 13:24 Albumin, Urine NEGATIVE ()?? 02/27/2024 13:24 Glucose, Urine NEGATIVE ()?? 02/27/2024 13:24 Ketones, Urine NEGATIVE ()?? 02/27/2024 13:24 Bilirubin, Urine NEGATIVE ()?? 02/27/2024 13:24 Hemoglobin, Urine NEGATIVE ()?? 02/27/2024 13:24 Nitrite, Urine NEGATIVE ()?? 02/27/2024 13:24 Leukocyte, Urine TRACE (Abnormal)?? 02/27/2024 13:24 Urobilinogen NORMAL mg/dL ()?? 02/27/2024 13:24 WBC's, Urine 4 /HPF ()?? 02/27/2024 13:24 RBC's, Urine NONE SEEN /HPF ()?? 02/27/2024 13:24 Squamous Epith <1 /HPF ()?? 02/27/2024 13:24 Hold Urine Culture Testing available 48 hours from time of collection. ()?? 02/27/2024 13:24 ?? URINE OTHER Est Creatinine Clearance 42.61 mL/min ()?? 02/27/2024 13:38 ?? VIROLOGY Influenza A PCR NEGATIVE ()?? 02/27/2024 12:52 Influenza B PCR NEGATIVE ()?? 02/27/2024 12:52 RSV PCR NEGATIVE ()?? 02/27/2024 12:52 COVID-19 PCR Specimen Source NASAL ()?? 02/27/2024 12:52 COVID-19 PCR Result NEGATIVE ()?? 02/27/2024 12:52 ? Abnormal Labs ?? BLOOD COUNT & DIFF Abs. Imm Gran?0.0 k/mm3 ()?02/27/2024 13:17 Abs. Lymph?4.1 k/mm3 (High)?02/27/2024 13:17 Abs. NRBC?0.0 k/mm3 ()?02/27/2024 13:17 Hgb?11.6 Gm/dL (Low)?02/27/2024 13:17 Imm Gran?0.3 % ()?02/27/2024 13:17 Lymph %?62.4 % (High)?02/27/2024 13:17 MCHC?32.2 Gm/dL (Low)?02/27/2024 13:17 [place] %?11.4 % (High)?02/27/2024 13:17 Neut %?24.7 % (Low)?02/27/2024 13:17 Nucleated RBC (Automated)?0.0 #/100 WBC'S ()?02/27/2024 13:17 Platelet Count?149 k/mm3 (Low)?02/27/2024 13:17 RBC?3.73 m/mm3 (Low)?02/27/2024 13:17 RDW-SD?60.2 femtoliters (High)?02/27/2024 13:17 ?? CHEM GENERAL AG Ratio?1.4 ()?02/27/2024 13:17 Alkaline Phosphatase?146 units/L (High)?02/27/2024 13:17 Estimated GFR Creatinine?68 ML/MIN/1.73 M2 ()?02/27/2024 13:17 Protein, Total?6.1 Gm/dL (Low)?02/27/2024 13:17 ?? UA/URINALYSIS Albumin, Urine?NEGATIVE ()?02/27/2024 13:24 Appear/Color, Urine?YELLOW ()?02/27/2024 13:24 Bilirubin, Urine?NEGATIVE ()?02/27/2024 13:24 Clarity?CLEAR ()?02/27/2024 13:24 Glucose, Urine?NEGATIVE ()?02/27/2024 13:24 Hemoglobin, Urine?NEGATIVE ()?02/27/2024 13:24 Hold Urine Culture?Testing available 48 hours from time of collection. () ?02/27/2024 13:24 Ketones, Urine?NEGATIVE ()?02/27/2024 13:24 Leukocyte, Urine?TRACE (Abnormal)?02/27/2024 13:24 Nitrite, Urine?NEGATIVE ()?02/27/2024 13:24 Urobilinogen?NORMAL mg/dL ()?02/27/2024 13:24 ?? VIROLOGY COVID-19 PCR Result?NEGATIVE ()?02/27/2024 12:52 COVID-19 PCR Specimen Source?NASAL () ?02/27/2024 12:52 Influenza A PCR?NEGATIVE ()?02/27/2024 12:52 Influenza B PCR?NEGATIVE ()?02/27/2024 12:52 RSV PCR?NEGATIVE ()?02/27/2024 12:52 ?? Note: Critical results are displayed in red. ? EKG study * Event Display: ECG 12-Lead Authored Date: Please click on pdf link to open report * Event Display: ECG 12-Lead Authored Date: Ventricular Rate: 67 BPM Atrial Rate: 67 BPM P-R Interval: 146 ms QRS Duration: 82 ms Q-T Interval: 414 ms QTC Calculation(Bazett): 437 ms P [place]: 29 degrees R [place]: -41 degrees T [place]: -7 degrees Normal sinus rhythm with sinus arrhythmia Left axis deviation Minimal voltage criteria for LVH, may be normal variant ( R in aVL ) Poor R wave progression Abnormal ECG When compared with ECG of 12-Feb-2024 10:40, No significant change was found Confirmed by JOSE WARD MD ([id number]) on 02/27/2024 10:03:03 PM [place] * Irwin Hightower RN: VERIFY, PERFORM, SIGN Event Display: Progress [facility] Authored Date: Patient: JEANNIE MASCORRO Age: 78 years Sex: Female : 1945 Associated Diagnoses: None Author: Irwin Hightower RN Findings Problem Related to Alteration in Neurological : Alteration in Neurological Function/new 03/01/2024 14:19 EST Alteration in Neuro status Related to Other: AMS, neuro checks Goals & Outcomes, Neurological Pt is safe with transfers & activities, Pt will be Neurologically stable Interventions, Neurological Minimize neuro stimulation BH Goals/Interventions, Neurological Yes Neurological, Problem Start 02/28/2024 15:41 Reviewed plan with, Neurological Patient Patient Progression, Neurological Pt progressing according to plan . Alteration in Safety : Alteration in Safety/new 03/01/2024 14:19 EST Alteration in Safety Related to Other: prevent falls Goals & Outcomes, Safety Pt will remain safe & injury free Interventions, Safety Provide teaching as needed BH Goals/Interventions, Safety Yes Safety, Problem Start 02/29/2024 10:00 Reviewed plan with, Safety Patient Patient Progression, Safety Pt progressing according to plan . Evaluation Pt is admitted for AMS. She is alert to person only. She has been confused through out the day and impulsive she is unable to follow direction. She is NS on tele and had 11 beats of V tach,Dr Fontana made aware. Pt toileted, ambulated and moved from bed to chair to assist in redirection. Jeannie's speech is slurred and garbled, per her daughter this is not her baseline. She is an assist x1. Bed alarm and video monitor in use. Pt tolerating diet.Bed in lowest locked position for safety. Call waters in reach. hourly rounds maintained. Discharged to SNF report given to ambulance personnel. IV removed all personal items accounted for. . * Jagruti BROWN, : PERFORM, SIGN, VERIFY Event Display: Progress Note Hospital Authored Date: Patient: JEANNIE MASCORRO Age: 78 years Sex: Female : 1945 Associated Diagnoses: None Author: Jagruti BROWN, Findings Problem Related to Alteration in Neurological : Alteration in Neurological Function/new 03/01/2024 0:00 EST Alteration in Neuro status Related to Other: AMS, neuro checks Goals & Outcomes, Neurological Pt is safe with transfers & activities, Pt will be Neurologically stable Interventions, Neurological Minimize neuro stimulation BH Goals/Interventions, Neurological Yes Neurological, Problem Start 02/28/2024 15:41 Reviewed plan with, Neurological Patient Patient Progression, Neurological Plan Initiation . Alteration in Safety : Alteration in Safety/new 03/01/2024 0:00 EST Alteration in Safety Related to Other: prevent falls Goals & Outcomes, Safety Pt will remain safe & injury free Interventions, Safety Provide teaching as needed BH Goals/Interventions, Safety Yes Safety, Problem Start 02/29/2024 10:00 Reviewed plan with, Safety Patient Patient Progression, Safety Plan Initiation . Narrative/Incidental Patient is alert and oriented to only self, confused and impulsive. Patient denies pain, cough and SOB. Patient always gets out of bed and attempt to walk to the bedroom. Patient is grossly hard of hearing and has some degree of slurred speech. Lung sounds clear and bowel sounds present on auscultation. Patient is on tele monitor showing NSR, SCDs order but pt does not want it, patient takes med whole with water without an issue. Bed is in low positon, call waters within reach, seizure pads on the rail and VM monitor is on for safety precaution.. * Irwin Hightower RN: MODIFY, SIGN, VERIFY, PERFORM Event Display: Progress Note Hospital Authored Date: Patient: JEANNIE MASCORRO Age: 78 years Sex: Female : 1945 Associated Diagnoses: None Author: Irwin Hightower RN Findings Problem Related to Alteration in Neurological : Alteration in Neurological Function/new 02/29/2024 10:34 EST Alteration in Neuro status Related to Other: AMS, neuro checks Goals & Outcomes, Neurological Pt is safe with transfers & activities, Pt will be Neurologically stable Interventions, Neurological Assess/monitor for abnormal posturing, Assess/monitor neurologic status, Assess/monitor VS per unit standards & prn Goals/Interventions, Neurological Yes Neurological, Problem Start 02/28/2024 15:41 Reviewed plan with, Neurological Patient Patient Progression, Neurological Pt progressing according to plan . Alteration in Safety : Alteration in Safety/new 02/29/2024 10:34 EST Alteration in Safety Related to Other: prevent falls Goals & Outcomes, Safety Pt will remain safe & injury free Interventions, Safety Provide teaching as needed Goals/Interventions, Safety Yes Safety, Problem Start 02/29/2024 10:00 Reviewed plan with, Safety Patient, Children Patient Progression, Safety Pt progressing according to plan . Evaluation Pt is admitted for AMS. She is alert to person only. She has been confused through out the day and impulsive she is unable to follow direction. She was given 2.5 mg Olanzapine with minimal effect, Darell made aware. Pt toileted, ambulated and moved from bed to chair to assist in redirection. Jeannie's speech is slurred and garbled, per her daughter this is not her baseline. She is an assist x1. Bedalarm and video monitor in use. Pt tolerating diet. Bed in lowest locked position for safety. Call waters in reach. hourly rounds maintained. Plan for discharge to SNF tomorrow. . Note * Elisa Holguin RN: PERFORM Event Display: Discharge/Transfer Note Hospital Authored Date: [id number] Nursing Discharge Note Entered On: 03/01/2024 14:08 EST Performed On: 03/01/2024 14:07 EST by Elisa Holguin RN Nursing Discharge Note 2 Discharge Time : 03/01/2024 14:07 EST Discharge Level of Care at Discharge : [facility] facility Discharge Nursing Homes/Rehab Facilities : [facility] Patient Left Unit Via : Ambulance Patient Accompanied Off Unit with : Ambulance/Chair Van Personnel Handover Given to Transport Personnel : Yes DC Instructions Provided & Signed by Pt : No Patient Understands D/C Instructions : No Verbalized Understanding of D/C Plan By : Family Patient Instructions Discharge Signed : No Instructions for Discharge Comments : daughter aware [facility] Did Pt have Specialty Bed or Wound Vac : No Elisa Holguin RN - 03/01/2024 14:07 EST * Arnaud HERNANDEZ, Nicole Yanez: MODIFY, MODIFY, MODIFY, PERFORM Event Display: Discharge/Transfer Note Hospital Authored Date: [id number] Patient: ??JEANNIE MASCORRO ? Age:??78 Years?Sex:??Female?:??1945?? Patient Information Discharge Location: Med Surg Primary Care Physician: Hunter Carvalho MD Admit Date/Time: 02/27/2024 11:44 Discharge Disposition Discharge Disposition: ?? Discharge Diagnosis Delirium (R41.0) Altered mental status ([id number]) Dementia (F03.90) Glaucoma (H40.9) H/O: hypothyroidism (Z86.39) Seizure disorder (G40.909) Subdural hematoma (S06.5XAA) Slurring of speech (R47.81) _ Discharge Medications Acetaminophen (Tylenol 325 mg oral tablet)?975?Milligram?By Mouth?Every 8 hours Atorvastatin (Lipitor Tablet)?20?Milligram?By Mouth?Daily?for 90?Days Divalproex Sodium (divalproex sodium 250 mg oral tablet, extended release)?1?tab(s)?250?Milligram?By Mouth?3 times a day?for 30?Days?TAKE 1 TABLET BY MOUTH TWICE A DAY Donepezil (donepezil 5 mg oral tablet)?TAKE 1 TABLET BY MOUTH EVERYDAY AT BEDTIME Famotidine (famotidine 20 mg oral tablet)?TAKE 1 TABLET BY MOUTH EVERY DAY AT BEDTIME NEEDED FOR HEARTBURN Fluticasone Nasal (Flonase 0.05 mg/inh nasal spray)?1?spray(s)?Nares, Both?Daily?for30?Days Levothyroxine (levothyroxine 0.075 mg oral tablet)?75?Microgram?1?tab(s)?By Mouth?Daily?for 90?Days Loratadine (loratadine 10 mg oral tablet)?10?Milligram?1?tablet?By Mouth?Daily Metoprolol (Toprol XL 25 mg oral tablet, extended release)?25?Milligram?1?tablet?By Mouth?Daily Miscellaneous Rx (Knee high compression stockings)?See Instructions?wear stockings while at your job Olanzapine (ZyPREXA Zydis 5 mg oral tablet, disintegrating)?2.5?Milligram?By Mouth?2 times a day?as needed?Agitation?for 30?Days Oxybutynin (oxybutynin 15 mg/24 hr oral tablet, extended release)?TAKE 1 TABLET BY MOUTH EVERY DAY Timolol Ophthalmic (timolol maleate 0.5% ophthalmic solution)?INSTILL 1 DROP INTO BOTH EYES EVERY DAY ? Medications Started Olanzapine 2.5 mg twice daily as needed for??agitation Toprol XL 25 mg qd Medications Discontinued None Doses Changed Depakote dose was increased to??250 mg 3 times daily Allergies Allergies ?(Active and Proposed Allergies Only) sulfamethoxazole-trimethoprim? (Severity: Unknown severity, Onset: Unknown) ? Hospital Course coming from [facility], admitted there on 02/16 for SDH. increasing aggression while at facility w/ violence towards daughter. Hx of dementia, no blood thinners. History of Present Illness This is a 78-year-old old female with hearing loss, past medical history significant for recent subdural hematoma needing admission at [facility], dementia living with her daughter up until few weeks ago athome, history of overactive bladder, depression, glaucoma, hypothyroidism, dyslipidemia, dementia, seizure disorder who presented to ED on 02/26 from [place] facility for altered mentation, increased aggression and possible slurring of speech.?? Last well-known time is not known but her slurring of speech is likely started more than 24 hours ago.?? History obtained from ER provider who called the senior living, discussion with ER provider as well as patient's daughter and healthcare proxy Salvador over the phone.?? Patient was unable to provide any history due to her cognitive impairment at this time. ?? In the ER she was hemodynamically stable with stable labs, UA negative, COVID RSV flu negative afebrile.?? CT head was done to rule out progression of subdural hematoma and no acute abnormality was noted.?? No evidence of hematoma. Chest x-ray showed no pneumonia or acute abnormality ?? Neurology was not consulted as it was not clear if her slurring was new versus old and last well-known time was likely more than 24 hours.?? Patient was noted to move all her extremities well and noted to be awake and alert. ?? During my encounter, RN reported that patient has been increasingly agitated, upon speaking with her, her speech is dysarthric, unintelligible for the most part, but overall patient was able to express that she wants to go home .?? She kept asking me to call her daughter.?? She kept asking me when she can go.?? She became increasingly frustrated with the idea that she is in the hospital and not going home. She denied any pain nausea.?? She was unable to follow commands consistently.? Patient's daughter shared that patient was doing well up until her recent fall around 2 weeks ago when she was admitted to [facility] with subdural hematoma and was discharged to rehab, she has been asking to go home.?? At baseline she does have dementia and daughter mentioned that her speech is unintelligible for the most part.?? The daughter is able to understand her but the patient does not hold conversation usually.?? She is not aggressive at baseline. [1] Objective Assessment and Plan Assessment:??This is a 78 years old female with history of??small??traumatic??subdural hematoma??inDecember 2023, dementia, urinary continence, glaucoma, hypothyroidism??and seizure disorder.??Patient is hospitalized at [facility]??due to??acute??altered mental status increased aggression??and slurred speech??after receiving COVID-19 vaccination. ?? Delirium (R41.0) Dementia (F03.90) Subdural hematoma (S06.5XAA) Slurring of speech (R47.81) ? Patient is known for small cerebellar stroke, dementia, recent hospitalization for subdural hematoma/scalp hematoma at [facility]??in??January 2024. Patient??presented with altered mental status, slurred speech??after receiving first dose of COVID-19 vaccination.??Post admission, EEGobtained which??showed diffuse slowing however ruled out active seizure.??Patient also underwent CTangiogram head and neck and hyperacute CT scan, which ruled out acute intracranial bleeding, or vascular lesion.??Chest x- ray negative for pneumonia, no signs UTI.??Patient does not have any focal adriana rological deficit however??speech appears to be??slow and slurred.??Initially plan for brain MRI??with conscious sedation??to rule out acute stroke.??After discussion with patient's daughter??Brittni Mascorro??on February 28,??brain MRI was discontinued.?Patient underwent repeat CT scan??on 03/01/24, acute stroke. Plan Continue supportive care Avoid sedatives Continue Depakote, dose increased to??250 mg 3 times daily Patient may receive??Zyprexa's dose to 2.5 mg twice daily as needed for agitation or aggression ?? Glaucoma (H40.9):??Continue timolol eyedrop ?? H/O: hypothyroidism (Z86.39):??Continue Synthroid ?? Seizure disorder (G40.909):??Continue Depakote, dose increased to??250 mg 3 times daily ?? Nonsustained VT;??on March 01??10:25 AM, patient had a 11 beats of nonsustained VT asymptomatic, vital stable.?? Chart reviewed, prior echocardiogram in January 2024 showed a normal EF however patient had a mild diastolic dysfunction.?? We checked??electrolytes, calcium, mag Phos level, all within normal limits. ??Due to history of diastolic dysfunction, start patient on Toprol XL 25 mg??daily ?? VTE Prophylaxis:??SCD ?VTE Prophylaxis Assessment:??VTE Prophylaxis Ordered ?? Discharge Planning:??discharge back to long-term care facility ?? Code Status:??Do not resuscitation ?Order Code Status:??Code Status Ordered ? Measurements?? Height: 159 cm (03/01/24) Weight: 55 kg (02/28/24) Dry Weight: 55 kg (02/28/24) Body Mass Index: 21.76 kg/m2 (02/28/24) ? Vital Signs?? Temperature: 97.3 DegF (03/01/24 07:00:00) Temperature Route: Oral (03/01/24 07:00:00) Pulse Rate: 74 bpm (03/01/24 07:00:00) Respiratory Rate: 18 br/min (03/01/24 07:00:00) Systolic Blood Pressure:??146 mm Hg??High (03/01/24 07:00:00) Diastolic Blood Pressure: 78 mm Hg (03/01/24 07:00:00) Blood pressure sites: Arm, left (03/01/24 07:00:00) Mean Arterial Pressure: 91 mm Hg (03/01/24 04:30:00) Pulse Pressure: 71 mm Hg (03/01/24 04:30:00) Oxygen Saturation: 96 % (03/01/24 07:00:00) Mode of Delivery (Oxygen): Room air (03/01/24 07:00:00) Early Warning Score: 2 (03/01/24 07:58:45) ? Precautions Seizure Precautions ?? Mobility & Ambulation Level Mobility & Ambulation Level Activity Assistance: One person assistance (02/28/24) Activity Status ADL: Ambulating in room, Bathroom privileges (02/28/24) Ambulatory devices needed: Walker (02/28/24) Repositioning: Self (02/28/24) ?? Therapeutic Activity Therapeutic Activities/Mobility/Balance Comments on treatment indicated: 5xweek, 1 week (02/28/24 08:54:00) Discharge recommendations: None (02/28/24 08:54:00) Barriers to goal achievement: Decreased function at baseline, Multiple medical problems (02/28/24 08:54:00) Facilitators to goal achievement: Supportive family (02/28/24 08:54:00) Plan Discussed w/Pt,Family/Agreed Upon: Yes (02/28/24 08:54:00) Rehab potential: Fair (02/28/24 08:54:00) ?? . Physical Exam ?Gen; no acute respiratory distress, cooperating with exam, frail looking elderly female,??constant talking?? I want to go home ?HEENT; no facial asymmetry, speech is somewhat slurred and slow,??difficulty to understand ?Lungs; CATB ?Cardiac; RRR, no M/R/G ?Abdomen; soft nontender, nondistended, normal bowel sounds ?Extremity; no edema ?Neuro exam; alert oriented x1,??gait steady,??CN 2-12 normal ? Pending Results Add On Lab Order ordered on 02/27/2024 Add On Lab Order ordered on 02/28/2024 CT Head-Hyper Acute Stroke ordered on 03/01/2024 Follow-Up Appointments Added Follow Up ?Time Frame ?Comments Deven HERNANDEZ, Hunter Callaway?4 to 5 weeks Patient Instructions ?? -Continue low-sodium diet, activity as tolerated -Please continue medications as prescribed, follow-up with PCP in 4??weeks -Please seeking medical attention immediately if you develop symptoms of acute??worsening??confusion,??focal neurological deficit Home Health Face to Face ^HomeHealthFTF Results Discharge Labs BLOOD COUNT & DIFF WBC 6.5 k/mm3 ()?? 02/27/2024 13:17 RBC 3.73 m/mm3 (Low)?? 02/27/2024 13:17 Hgb 11.6 Gm/dL (Low)?? 02/27/2024 13:17 Hct 36.0 % ()?? 02/27/2024 13:17 MCV 96.5 femtoliters ()?? 02/27/2024 13:17 MCH 31.1 pg ()?? 02/27/2024 13:17 MCHC 32.2 Gm/dL (Low)?? 02/27/2024 13:17 Platelet Count 149 k/mm3 (Low)?? 02/27/2024 13:17 RDW-SD 60.2 femtoliters (High)?? 02/27/2024 13:17 MPV 11.5 femtoliters ()?? 02/27/2024 13:17 Nucleated RBC (Automated) 0.0 #/100 WBC'S ()?? 02/27/2024 13:17 Abs. NRBC 0.0 k/mm3 ()?? 02/27/2024 13:17 Abs. Neut 1.6 k/mm3 ()?? 02/27/2024 13:17 Abs. Lymph 4.1 k/mm3 (High)?? 02/27/2024 13:17 Abs. [place] 0.7 k/mm3 ()?? 02/27/2024 13:17 Abs. Eo 0.0 k/mm3 ()?? 02/27/2024 13:17 Abs. Baso 0.0 k/mm3 ()?? 02/27/2024 13:17 Neut % 24.7 % (Low)?? 02/27/2024 13:17 Lymph % 62.4 % (High)?? 02/27/2024 13:17 [place] % 11.4 % (High)?? 02/27/2024 13:17 Eos % 0.6 % ()?? 02/27/2024 13:17 Baso % 0.6 % ()?? 02/27/2024 13:17 Imm Gran 0.3 % ()?? 02/27/2024 13:17 Abs. Imm Gran 0.0 k/mm3 ()?? 02/27/2024 13:17 ?? CHEM GENERAL Sodium 141 mmol/L ()?? 02/27/2024 13:17 Potassium 4.5 mmol/L ()?? 02/27/2024 13:17 Chloride 103 mmol/L ()?? 02/27/2024 13:17 Bicarbonate Level 28 mmol/L ()?? 02/27/2024 13:17 Anion Gap 10 ()?? 02/27/2024 13:17 Glucose Level 79 mg/dL ()?? 02/27/2024 13:17 BUN 11 mg/dL ()?? 02/27/2024 13:17 Creatinine-Blood 0.87 mg/dL ()?? 02/27/2024 13:17 Estimated GFR Creatinine 68 ML/MIN/1.73 M2 ()?? 02/27/2024 13:17 Calcium 8.7 mg/dL ()?? 02/27/2024 13:17 Protein, Total 6.1 Gm/dL (Low)?? 02/27/2024 13:17 Albumin 3.6 Gm/dL ()?? 02/27/2024 13:17 AG Ratio 1.4 ()?? 02/27/2024 13:17 Alkaline Phosphatase 146 units/L (High)?? 02/27/2024 13:17 Lipase 30 units/L ()?? 02/27/2024 13:17 AST (SGOT) 29 units/L ()?? 02/27/2024 13:17 ALT (SGPT) 24 units/L ()?? 02/27/2024 13:17 Bilirubin, Total 0.5 mg/dL ()?? 02/27/2024 13:17 Vitamin B12 Level 814 pg/mL ()?? 02/27/2024 17:42 Folic Acid Level 14.7 ng/mL ()?? 02/27/2024 17:42 ?? ENDOCRINE/TUMOR MARKER TSH 3.80 uIU/mL ()?? 02/27/2024 13:17 ? HEME OTHER Hold Lavender Top SPECIMEN DISCARDED AFTER 24 HOURS. ()?? 02/27/2024 17:42 Hold Blue Top SPECIMEN DISCARDED AFTER 4 HOURS. ()?? 02/27/2024 17:42 ?? MISC. CHEMISTRY Hold Green Top SPECIMEN DISCARDED AFTER 1 WEEK ()?? 02/27/2024 17:42 Hold Plummer Top SPECIMEN DISCARDED AFTER 1 WEEK ()?? 02/27/2024 17:42 ?? TOXICOLOGY/TDM Valproic Level 57.7 mg/L ()?? 02/27/2024 17:42 ? UA/URINALYSIS Appear/Color, Urine YELLOW ()?? 02/27/2024 13:24 Clarity CLEAR ()?? 02/27/2024 13:24 Specific [place], Urine 1.015 ()?? 02/27/2024 13:24 pH, Urine 7.5 ()?? 02/27/2024 13:24 Albumin, Urine NEGATIVE ()?? 02/27/2024 13:24 Glucose, Urine NEGATIVE ()?? 02/27/2024 13:24 Ketones, Urine NEGATIVE ()?? 02/27/2024 13:24 Bilirubin, Urine NEGATIVE ()?? 02/27/2024 13:24 Hemoglobin, Urine NEGATIVE ()?? 02/27/2024 13:24 Nitrite, Urine NEGATIVE ()?? 02/27/2024 13:24 Leukocyte, Urine TRACE (Abnormal)?? 02/27/2024 13:24 Urobilinogen NORMAL mg/dL ()?? 02/27/2024 13:24 WBC's, Urine 4 /HPF ()?? 02/27/2024 13:24 RBC's, Urine NONE SEEN /HPF ()?? 02/27/2024 13:24 Squamous Epith <1 /HPF ()?? 02/27/2024 13:24 Hold Urine Culture Testing available 48 hours from time of collection. ()?? 02/27/2024 13:24 ?? URINE OTHER Est Creatinine Clearance 42.61 mL/min ()?? 02/27/2024 13:38 ? VIROLOGY Influenza A PCR NEGATIVE ()?? 02/27/2024 12:52 Influenza B PCR NEGATIVE ()?? 02/27/2024 12:52 RSV PCR NEGATIVE ()?? 02/27/2024 12:52 COVID-19 PCR Specimen Source NASAL ()?? 02/27/2024 12:52 COVID-19 PCR Result NEGATIVE ()?? 02/27/2024 12:52 ? Procedure ?Other Procedure ?EEG ?? The EEG is abnormal due to the presence of mild to moderate generalized slowing??of the background??that is most prominent over the temporal regions bilaterally.??This finding while??nonspecific suggests the presence of a diffuse disturbance of cerebral function.??No lateralized or??epileptiform activity is present.? Image ?XR Chest 2 Views Frontal and Lat??02/27/2024 13:57 by Doreen Colon ?no acute abnormality ?CT Head/Brain W/O Contrast??02/27/2024 13:51 by Eri Hart ?No acute intracranial abnormality ?CT Angio Neck??02/27/2024 21:27 by Carlos Vieyra ? No cutoff or high-grade stenosis of the major branches of the intracranial arteries. No aneurysm, stenosis, or vascular malformations present. The right proximal internal carotid artery show no significant stenosis by NASCET criteria. The left proximal internal carotid artery show no significant stenosis by NASCET criteria. The right cervical vertebral artery shows no significant stenosis. The left cervical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
--- NOTE | 2024-03-03 19:26 | PC.NURSE ---
Patient transferred from ED 21 to Overflow 2. Patient is combative, aggressive, attempting to hit staff. Yelling to call her or her daughter, asking to be sent to a hospital. This RN stated that she is at [facility], to which patient stated I don't wanna . Warm blankets given, camera in place (#38). Requested sitter at bedside due to combative behavior, fall risk, & elopement risk.
--- NOTE | 2024-03-03 20:02 | PC.NURSE ---
Patient ambulated out of bed to bathroom (and back) with staff assist. Patient has calmed down with redirection. Nerupa (sitter) at bedside, camera and bed alarm also in place. Patient is calmer, occasionally asking to go home. Watching TV and occasionally conversing with sitter at this time. Spoke with daughter (Jana) via phone number on file to update regarding move to Overflow unit. Daughter thankful for update. Daughter also informed this RN that Jeannie received a COVID vaccine a few days ago, and ever since, has had escalating behaviors in addition to her baseline dementia, particularly with hitting. Also notified about Jeannie not sleeping for a few days and asked that sleep be prioritized tonight. Updated daughter with plan of care to meet with psych consult tomorrow and PT/CM status. Daughter again thankful. Care ongoing by this RN.
--- NOTE | 2024-03-03 20:59 | PC.NURSE ---
Patient sleeping at this time. Sitter remains at bedside for safety. Camera & bed alarm also remain in place. Care ongoing by this RN.
[2024-03-03 21:15] VITALS: BP 143/81; PULSE 79; RESP 16; TEMP 36.5; O2SAT 98
--- NOTE | 2024-03-03 22:49 | PC.NURSE ---
Patient ambulated for a 2nd time this shift to the bathroom and back with assistance from staff. Patient has been awake for the majority of the shift, slept for only about 15 minutes. Continues to yell out asking to go home or for a ride home, but is overall more pleasant than previous interactions. Medicated with Zyprexa 5mg orally, taken without issue. Sitter, camera, & bed alarm remain in place.
--- NOTE | 2024-03-03 23:53 | PC.NURSE ---
Patient out of bed to bathroom again, with staff assist. Ambulates with slow steady gait. Care ongoing by this RN.
--- NOTE | 2024-03-03 23:56 | MHC.EDTECH ---
Patient very restless ,yelling ,wanting to go home ,attempting to climb out of bed ,Very combative kicking and hitting staff ,Patient was a 2 asst to walk to bathroom void and back to bed .
[2024-03-04] MEDS: LORazepam 1 MG TABLET 2 MG PO (00:23)
--- NOTE | 2024-03-04 00:31 | PC.NURSE ---
Patient medicated with PO Ativan for agitation/escalating behaviors and restlessness. Has not slept other than 10-15 minutes earlier this shift. Continuing to hit and kick staff (this RN, sitter, & PCT) despite de-escalation attempts. Patient is angry because she wants to leave and go home. Attempted to redirect multiple times. Spoke with Dr. Crawford on the phone who ordered PO Ativan for administration. Patient repeatedly asking to call to pick her up despite repeated statements that a cordless phone is unavailable, it is the middle of the night, and family was spoken to earlier this shift per request and updated. Patient took Ativan orally without issue other than verbally telling this RN to go to hell . Jimenezter remains at bedside. No injuries to staff or patient. Camera & bed alarms also remain in place. Care ongoing.
--- NOTE | 2024-03-04 01:21 | MHC.EDTECH ---
Patient awake up to bathroom void and back to bed .
--- NOTE | 2024-03-04 02:36 | PC.NURSE ---
Patient resting comfortably at this time. Patient is sleeping with occasional brief moments of waking up and mumbling random statements out loud, but is not combative at this time. No acute distress. Care ongoing by this RN.
--- NOTE | 2024-03-04 03:08 | MHC.EDTECH ---
Patient slept for about 30 mins ,awake was assisted to bathroom with 2 assist ,void back to bed ,then Patient started to kick staff .
[2024-03-04 06:06] VITALS: BP 117/82; PULSE 95; RESP 16; TEMP 36.6; O2SAT 98
--- NOTE | 2024-03-04 06:10 | MHC.EDTECH ---
0600 rounding done ,vitals taken ,Pt sleeping ,all safety measure in Place .
--- NOTE | 2024-03-04 09:04 | MHC.CM.ED ---
Patient remains in ER overflow. Bee, technology education instructor, will see patient to assess medication recommendations. Continue to monitor for d/c needs.
--- NOTE | 2024-03-04 09:11 | MHC.EDTECH ---
This tech and the sitter assisted the pt to the bathroom. Pt urinated and is back in bed eating breakfast. Sitter at bedside
--- NOTE | 2024-03-04 09:35 | MHC.SL.SWA ---
Speech Pathologist Impression: Within Functional Limits Oral Phase Dysphagia d/t L sided weakness and missing dentition Risk of Aspiration Due to: Reduced Cognition Dysphasia Diet Status: Liquid Consistency and Strategies for Safe Swallow: Liquid Intake Recommendation: Thin Liquid Intake Strategies: Small Sips Solid Food Consistency: Dietary Recommendations: Grnd/Mech Altered (NDD2) Additional Modifications to Solid Foods: Oral Medication Intake: Crushed with Puree Please contact the pharmacy regarding appropriate crushable or liquid drug formulations that are available whenever modified delivery is recommended. Compensatory Strategies and Precautions to be Taken for Safe Swallow: Sitting Upright (90 deg) Liquids from Cup Small Bites and Sips Alternate Liquids/Solids Rate of Ingestion Change Supervision While Eating and Drinking for Safe Swallow: Total Supervision (1:1) Foods to Avoid: Swallowing Recommended Treatments: Compens. Strategy Educat. Recommendation for Speech: Inpatient Speech Therapy Comment: Pt presents with mild oral dysphagia d/t L sided facial weakness and missing dentition. Mild anterior loss of thins but pt shows awareness, wiping mouth upon loss. Pt tolerated thins, ground soft solids and purees with adequate oropharyngeal coordination, lingual sweep efficient in clearing residuals from oral cavity upon swallow. No overt s/s of aspiration. Pt needs 1:1 feed d/t variability of cognitive state. Recc NDD2 with thins, PIECER to follow. Frequency/Duration: M-F Daily Date Range for Service Req: Timeline to reassess: Parimutuel Clerk Clinican/Clinical Fellow: No Supervisory Statement: I have reviewed and agree with the student/clinical fellow's documentation: N/A Speech Language Pathologist: Kathy Messer M.S., CCC-PIECER
--- NOTE | 2024-03-04 10:42 | PHA.MEDREC ---
Addendum entered by Ml Lee [facility] 03/04/24 10:59: spoke to Susan from [facility], she confirmed patient is on divalproex DR 250mg TID. There was a change in behavior and patient was on TID originally, then had a fall so it was decreased to BID before coming here, then was discharge and pt had aggresive beahvior so the CORROSION PREVENTION METAL SPRAYER at the facility increased back to TID and that's how pt was getting it. Addendum entered by Ml Lee [facility] 03/04/24 10:47: reviewed by [facility]. Original Note: Pharmacy Consult ? Medication Reconciliation Pharmacy has completed the medication reconciliation. utilized list from [facility] to confirm med list.
[2024-03-04 13:52] VITALS: BP 137/79; PULSE 94; RESP 16; TEMP 36.8; O2SAT 98
[2024-03-04 14:07] LABS: Valproate 16.9 mcg/mL (50.0-100.0)
[2024-03-04 14:14] LABS: Ammonia 31 umol/L (13-55)
[2024-03-04 14:28] LABS: TSH reflex Free T4 5.78 uIU/mL (0.32-4.0)
[2024-03-04 15:14] LABS: Free T4 (Free Thyroxine) 0.88 ng/dL (0.71-1.85)
[2024-03-04] MEDS: Divalproex Sodium ER 250 MG TAB.ER.24H PO ×2 (15:58→21:04)
[2024-03-04] MEDS: OLANZapine 2.5 MG TABLET PO ×2 (15:58→21:08)
[2024-03-04] MEDS: Levothyroxine Sodium 75 MCG TABLET PO (15:58)
[2024-03-04] MEDS: Loratadine 10 MG TABLET PO (15:58)
[2024-03-04] MEDS: Atorvastatin Calcium 20 MG TABLET PO (15:58)
--- NOTE | 2024-03-04 16:04 | PC.NURSE ---
this nurse took over care of patient at 3pm, pt was sleeping at the time and it was told in report to let the pt sleep as she hadnt slept in >24hours- will medicate when she wakes. pt has now woken up, pt willingly taking po medications and requested a sandwich as she is hungry, she is alert to person only, ambulated with assist to bathroom-very unsteady, fall precautions intact, 1:1 sitter at bedside as well as pt safety camera, rr equal/non labored-lungs clear, pt currently denying pain/discomfort. call waters within reach, plan of care ongoing.
--- NOTE | 2024-03-04 16:12 | PC.NURSE ---
called pharmacy for last missing medication
[2024-03-04] MEDS: oxyBUTYnin chloride ER 5 MG TAB.ER.24 15 MG PO (16:19)
--- NOTE | 2024-03-04 16:42 | P.CNPS_ITS ---
History of Present Illness Date of Service: 03/04/2024 Chief Complaint: INC AGGRESSION Discussed with referring provider: Yes Sources of Information: patient interviewed, chart reviewed and crisis/core team assessment reviewed Additional Sources of Information: Jana [phone] HPI Narrative: Mrs. Mascorro is a 78 year-old woman with hx of dementia who currently resides at home but was at [facility] for STR. She has been presenting as increasingly more combative, hitting staff. She has been seen by ED at [facility] and here. She continues to present as combative, not sleeping. She has had medication changes in the community with limited effect. Pt seen in the ED. Pt repeatedly asking to let her go home. She is not oriented to place, month nor year. Limited information gathered from the patient as she is focused on going home and waiting for her daughter to pick her up. Collateral information gathered from the daughter, Jana, who reports memory and cognitive impairments are worsening, that she is becoming more irritable and impulsive, which was not the way she was prior to having dementia. She also reports patient has regressed to a child like behaviors. No SI/HI. No overt psychosis or delusions, but confabulation noted. Past Psychiatric History: Inpt: none in the past Diagnostics Vital Signs (24Hr): Vital Signs - 24 hr 03/03/24 21:15 03/04/24 06:06 03/04/24 13:52 Temperature 97.7 F 97.8 F 98.2 F Pulse Rate 79 95 94 Respiratory Rate 16 16 16 Blood Pressure 143/81 H 117/82 137/79 Pulse Oximetry 98 98 98 Oxygen Delivery Method Room Air Room Air Room Air BMI result Body Mass Index 23.3 Labs 03/03/24 14:57 03/03/24 14:57 Labs: Laboratory Results - last 48 hr 03/03/24 03/03/24 03/04/24 14:57 16:09 13:43 WBC 9.0 RBC 3.96 L Hgb 12.2 Hct 37.7 MCV 95.2 MCH 30.8 MCHC 32.4 RDW 16.4 H Plt Count 136 L MPV 11.4 Immature Gran % (Auto) 0.2 Neut % (Auto) 34.1 L Lymph % (Auto) 55.1 H [place] % (Auto) 9.4 Eos % (Auto) 0.9 Baso % (Auto) 0.3 Lymph # (Auto) 5.0 H [place] # (Auto) 0.9 Eos # (Auto) 0.1 Baso # (Auto) 0.0 Abs Immat Gran (auto) 0.02 Absolute Neuts (auto) 3.1 Absolute Nucleated RBC 0.000 Nucleated RBC % (auto) 0.0 Sodium 143 Potassium 4.0 Chloride 107 Carbon Dioxide 30 H Anion Gap 10 L BUN 22 H Creatinine 0.91 Estim Creat Clear Calc 45.1 Estimated GFR 60 Random Glucose 94 Calcium 8.7 Magnesium 2.4 Total Bilirubin 0.6 AST 24 ALT 19 Alkaline Phosphatase 120 H Ammonia 31 Total Protein 6.2 L Albumin 3.5 TSH Free T4 Urine Color Yellow Urine Appearance Clear Urine pH 6.0 Ur Specific [place] 1.020 Urine Protein Negative Urine Glucose (UA) Negative Urine Ketones Negative Urine Blood Negative Urine Nitrite Negative Ur Leukocyte Esterase Moderate (2+) H Urine RBC 0-2 Urine WBC 6-10 H Ur Squamous Epith Cells 0-2 Urine Bacteria None Seen Hyaline Casts 0-2 Valproic Acid Influenza Type A (PCR) NEGATIVE Influenza Type B (PCR) NEGATIVE RSV RNA Qual (PCR) NEGATIVE SARS-CoV-2 RNA (RT-PCR) NEGATIVE 03/04/24 13:44 WBC RBC Hgb Hct MCV MCH MCHC RDW Plt Count MPV Immature Gran % (Auto) Neut % (Auto) Lymph % (Auto) [place] % (Auto) Eos % (Auto) Baso % (Auto) Lymph # (Auto) [place] # (Auto) Eos # (Auto) Baso # (Auto) Abs Immat Gran (auto) Absolute Neuts (auto) Absolute Nucleated RBC Nucleated RBC % (auto) Sodium Potassium Chloride Carbon Dioxide Anion Gap BUN Creatinine Estim Creat Clear Calc Estimated GFR Random Glucose Calcium Magnesium Total Bilirubin AST ALT Alkaline Phosphatase Ammonia Total Protein Albumin TSH 5.78 H Free T4 0.88 Urine Color Urine Appearance Urine pH Ur Specific [place] Urine Protein Urine Glucose (UA) Urine Ketones Urine Blood Urine Nitrite Ur Leukocyte Esterase Urine RBC Urine WBC Ur Squamous Epith Cells Urine Bacteria Hyaline Casts Valproic Acid 16.9 L Influenza Type A (PCR) Influenza Type B (PCR) RSV RNA Qual (PCR) SARS-CoV-2 RNA (RT-PCR) Mental Status Exam Mental Status Exam Narrative: Appearance: wearing hospital gown, poor hygiene, restless. [place] Behavior: irritable, asking to bring her home Psychomotor: some agitation noted Speech: mumbles, some difficulty enunciation, loud at times, spontaneous TP: goal oriented- wanting to go home. confabulation TC: wanting to go home Mood: okay Affect: irritable SI: none HI: none VH/AH: no overt signs Delusions: no overt delusional content reported but confabulates. Insight/judgment: impaired x 2 Memory/cog: alert, oriented only to self, not to place, month, year nor situation. Medications Medications Current Medications Acetaminophen (Acetaminophen 325 Mg Tablet) 975 mg PO TID PRN PRN Reason: Fever Or Pain Atorvastatin Calcium (Atorvastatin Calcium 20 Mg Tablet) 20 mg PO DAILY [facility] Last Admin: 03/04/24 15:58 Dose: 20 mg Bisacodyl (Bisacodyl 10 Mg Supp.Rect) 10 mg [place] DAILY PRN PRN Reason: Constipation Divalproex Sodium (Divalproex Sodium Er 250 Mg Tab.Er.24h) 250 mg PO TID [facility] Last Admin: 03/04/24 15:58 Dose: 250 mg Donepezil HCl (Donepezil Hcl 5 Mg Tablet) 5 mg PO BEDTIME [facility] Famotidine (Famotidine 20 Mg Tablet) 20 mg PO BEDTIME [facility] Levothyroxine Sodium (Levothyroxine Sodium 75 Mcg Tablet) 75 mcg PO DAILY@0600 [facility] Last Admin: 03/04/24 15:58 Dose: 75 mcg Loratadine (Loratadine 10 Mg Tablet) 10 mg PO DAILY [facility] Last Admin: 03/04/24 15:58 Dose: 10 mg Lorazepam (Lorazepam 0.5 Mg Tablet) 0.5 mg PO BID PRN PRN Reason: severe agitation Magnesium Hydroxide (Milk Of Magnesia 30 Ml Oral.Susp) 30 ml PO DAILY PRN PRN Reason: Constipation Olanzapine (Olanzapine 2.5 Mg Tablet) 2.5 mg PO BID PRN PRN Reason: Agitation Olanzapine (Olanzapine 2.5 Mg Tablet) 2.5 mg PO BID [facility] Last Admin: 03/04/24 15:58 Dose: 2.5 mg Oxybutynin Chloride (Oxybutynin Chloride Er 5 Mg Tab.Er.24) 15 mg PO DAILY [facility] Last Admin: 03/04/24 16:19 Dose: 15 mg Trazodone HCl (Trazodone Hcl 25 Mg Halftab) 25 mg PO BEDTIME PRN PRN Reason: Agitation Allergies Allergies Allergy/AdvReac Type Severity Reaction Status Date / Time sulfamethoxazole Allergy Unknown Verified 03/03/24 14:32 [From Sulfamethoxazole-Trimethoprim] trimethoprim Allergy Unknown Verified 03/03/24 14:32 [From Sulfamethoxazole-Trimethoprim] Assessment & Plan Assessment & Plan (1) 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 Mascorro is a 78 year-old woman with hx of dementia, recently transition to [facility] for [facility] per daughter. Per daughter, cognitive impairments worsening along with behavioral components of dementia including more explosive and impulsive behaviors. She has had medication changes in the community including increase in depakote, addition of olanzapine. Despite this pt continues to present as combative. Plan 1. Recommend inpt psych admission for safety, stabilization and containment. Discussed this with daughter who is in agreement. Total time managing care of this patient today ____ minutes.
[2024-03-04] MEDS: OLANZapine ODT 10 MG TAB.RAPDIS TRANSLINGU (17:19)
[2024-03-04] MEDS: LORazepam 1 MG TABLET PO (17:20)
[2024-03-04 18:05] VITALS: BP 155/79; PULSE 102; RESP 20; TEMP 36.4; O2SAT 98
[2024-03-04] MEDS: Famotidine 20 MG TABLET PO (20:19)
[2024-03-04] MEDS: Donepezil HCl 5 MG TABLET PO (20:19)
--- NOTE | 2024-03-04 21:09 | PC.NURSE ---
pt has frequent urination perwick in place.
[2024-03-04 22:00] VITALS: RESP 16
--- NOTE | 2024-03-04 23:05 | PC.NURSE ---
pt sleeping, sitter no longer and bed alarm on with camera. 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
--- NOTE | 2024-03-05 00:35 | PC.NURSE ---
pt sleeping and unable to do the psychiatric assessment at this time. When pt is awake she asks multiple times to go home. camera on, bed alarms on and in view.
[2024-03-05 06:00] VITALS: BP 128/67; PULSE 67; RESP 16; TEMP 36.7; O2SAT 98
[2024-03-05] MEDS: Levothyroxine Sodium 75 MCG TABLET PO (06:21)
--- NOTE | 2024-03-05 07:21 | MHC.CM.ED ---
Per Bee, kitchen food assembler, patient requires inpatient sage psych. Case Management consult deferred at this time.
[2024-03-05 10:25] VITALS: BP 144/86; PULSE 70; RESP 16; TEMP 36.1; O2SAT 93
[2024-03-05] MEDS: OLANZapine 2.5 MG TABLET PO ×2 (10:26→20:21)
[2024-03-05] MEDS: Atorvastatin Calcium 20 MG TABLET PO (10:26)
[2024-03-05] MEDS: Divalproex Sodium ER 250 MG TAB.ER.24H PO (10:26)
[2024-03-05] MEDS: Loratadine 10 MG TABLET PO (10:27)
[2024-03-05] MEDS: oxyBUTYnin chloride ER 5 MG TAB.ER.24 15 MG PO (10:27)
--- NOTE | 2024-03-05 10:32 | PC.NURSE ---
assumed care of patient at 0700, patient slept through out morning. patient is now awake and alert, ambulated 2 assist to the bathroom, patient unsteady. patient VSS, resp even and unlabored, skin dry and intact. patient pads changed on bed, linens clean and dry. patient is now sitting up and eating breakfast. medicated per APR, takes meds whole with water. patient occasionally singing I want to go home
--- NOTE | 2024-03-05 11:12 | MHC.CARE ---
Pt. meets the criteria for a sage [facility] admission. Section 12A in chart. Provider in agreement.
--- NOTE | 2024-03-05 11:12 | MHC.SL.SWA ---
Speech Pathologist Impression: Within Functional Limits Risk of Aspiration Due to: Reduced Cognition Dysphasia Diet Status: Liquid Consistency and Strategies for Safe Swallow: Liquid Intake Recommendation: Thin Liquid Intake Strategies: Small Sips Solid Food Consistency: Dietary Recommendations: Grnd/Mech Altered (NDD2) Additional Modifications to Solid Foods: Oral Medication Intake: Crushed with Puree Please contact the pharmacy regarding appropriate crushable or liquid drug formulations that are available whenever modified delivery is recommended. Compensatory Strategies and Precautions to be Taken for Safe Swallow: Sitting Upright (90 deg) Liquids from Cup Small Bites and Sips Alternate Liquids/Solids Rate of Ingestion Change Supervision While Eating and Drinking for Safe Swallow: Total Supervision (1:1) Foods to Avoid: Swallowing Recommended Treatments: Compens. Strategy Educat. Recommendation for Speech: Inpatient Speech Therapy Comment: Pt able to feed herself with assist for set-up and intermittent supervision. Recc NDD2 with thins, OPERATING TABLE ASSEMBLER to follow. Frequency/Duration: M-F Daily Date Range for Service Req: Timeline to reassess: Recreation Facilities Supervisor Clinican/Clinical Fellow: No Supervisory Statement: I have reviewed and agree with the student/clinical fellow's documentation: No Speech Language Pathologist: Kathy Messer M.S., CCC-OPERATING TABLE ASSEMBLER
[2024-03-05 13:15] VITALS: BP 135/101; PULSE 101; RESP 20; TEMP 36.4; O2SAT 96
[2024-03-05] MEDS: LORazepam 0.5 MG TABLET PO (14:02)
[2024-03-05] MEDS: Divalproex Sodium Sprinkles 125 MG CAP.DR.SPR 250 MG PO ×2 (15:00→20:20)
--- NOTE | 2024-03-05 15:16 | PC.ADMIT ---
Pt. escorted onto unit via WC at 13:15 accompanied by this RN and security. Changeover with contraband search and skin assmt. conducted without significant findings. Pt. is unsteady and requires assist of 1-2. Pt. confused and combative, swinging at staff during process. Pt. Oriented only to person and that she is in the hospital. Focused on calling her to pick her up. Attempting to get up unassisted, I'll walk there to him! Pt. given PRN lorazepam and eventually calmed. Pt. placed on 1:1 for safety.
--- NOTE | 2024-03-05 15:40 | HO.PSYADMNOT ---
HPI Date of Service: 03/05/24 Chief Complaint: combative behaviors Sources of Information: patient interviewed, chart reviewed and crisis/core team assessment reviewed HPI Subjective Notes: Gandhi Warning and Section 12B Healthcare Proxy: Yes Narrative: The patient is a 78-year-old female, , mother of adult children, who was a resident of a assisted facility subacute rehab transferred to this facility for exacerbation of agitation and assaultive behavior. Apparently, the patient had a fall in the last months and she was hospitalized for subdural hematoma later on, she was transferred to a subacute rehab. Apparently in the last month she had been in the emergency room several times due to aggressive behavior towards staff. She was transferred here, assessed by the care team and transferring to this facility for psychiatric stabilization. In our emergency room, the patient was confused, restless, needed to be chemically restrained with Zyprexa due to disorganized behavior. She was transferred into this facility in a Section 12 B. on admission, the patient was confused, she was perseverative stating that she wants to go back home and she was unable to verbalize how come she ended up in the hospital. She was irritable but redirectable, unable to provide further details. It is obvious that the patient was cognitively impaired. We will try to gather more collateral information at this moment she is unable to understand Gandhi warning and she is not going to sign a conditional voluntary. We will continue with the medical workout and we will keep her on one-to-one for safety Past Psychiatric History: Inpt: none in the past Medical Evaluation Reviewed: Yes Diagnostics Vital Signs (24Hr): Vital Signs - 24 hr 03/04/24 18:05 03/04/24 22:00 03/05/24 06:00 Temperature 97.5 F 98.1 F Pulse Rate 102 H 67 Respiratory Rate 20 16 16 Blood Pressure 155/79 H 128/67 Pulse Oximetry 98 98 Oxygen Delivery Method Room Air 03/05/24 10:25 03/05/24 13:15 Temperature 97 F 97.5 F Pulse Rate 70 101 H Respiratory Rate 16 20 Blood Pressure 144/86 H 135/101 H Pulse Oximetry 93 96 Oxygen Delivery Method Room Air Room Air BMI result Body Mass Index 23.3 Labs 03/03/24 14:57 03/03/24 14:57 Labs: Laboratory Results - last 48 hr 03/03/24 03/03/24 03/04/24 14:57 16:09 13:43 Alkaline Phosphatase 120 H Ammonia 31 TSH Free T4 Urine Color Yellow Urine Appearance Clear Urine pH 6.0 Ur Specific [place] 1.020 Urine Protein Negative Urine Glucose (UA) Negative Urine Ketones Negative Urine Blood Negative Urine Nitrite Negative Ur Leukocyte Esterase Moderate (2+) H Urine RBC 0-2 Urine WBC 6-10 H Ur Squamous Epith Cells 0-2 Urine Bacteria None Seen Hyaline Casts 0-2 Valproic Acid Influenza Type A (PCR) NEGATIVE Influenza Type B (PCR) NEGATIVE RSV RNA Qual (PCR) NEGATIVE SARS-CoV-2 RNA (RT-PCR) NEGATIVE 03/04/24 13:44 Alkaline Phosphatase Ammonia TSH 5.78 H Free T4 0.88 Urine Color Urine Appearance Urine pH Ur Specific [place] Urine Protein Urine Glucose (UA) Urine Ketones Urine Blood Urine Nitrite Ur Leukocyte Esterase Urine RBC Urine WBC Ur Squamous Epith Cells Urine Bacteria Hyaline Casts Valproic Acid 16.9 L Influenza Type A (PCR) Influenza Type B (PCR) RSV RNA Qual (PCR) SARS-CoV-2 RNA (RT-PCR) Meds/Allergies Meds Home Medications ?Medication ?Instructions ?Recorded ?Confirmed ?Type acetaminophen 325 mg tablet 975 mg PO TID PRN Fever Or Pain 03/04/24 03/04/24 History atorvastatin 20 mg tablet 20 mg PO DAILY 03/04/24 03/04/24 History bisacodyl 10 mg rectal suppository 10 mg [place] DAILY PRN Constipation 03/04/24 03/04/24 History cholecalciferol (vitamin D3) 50 50 mcg PO DAILY 03/04/24 03/04/24 History mcg (2,000 unit) tablet (Vitamin D3) divalproex 250 mg tablet,extended 250 mg PO TID 03/04/24 03/04/24 History release 24 hr donepezil 5 mg tablet 5 mg PO BEDTIME 03/04/24 03/04/24 History famotidine 20 mg tablet 20 mg PO BEDTIME 03/04/24 03/04/24 History fluticasone propionate 50 2 spray intranasal DAILY 03/04/24 03/04/24 History mcg/actuation nasal spray,suspension levothyroxine 75 mcg tablet 75 mcg PO DAILY@0600 03/04/24 03/04/24 History loratadine 10 mg tablet 10 mg PO DAILY 03/04/24 03/04/24 History lorazepam 0.5 mg tablet 0.5 mg PO BID PRN severe agitation 03/04/24 03/04/24 History magnesium hydroxide 400 mg/5 mL 30 ml PO DAILY PRN Constipation 03/04/24 03/04/24 History oral suspension (Milk of Magnesia) naloxone 4 mg/actuation nasal 1 spray intranasal Q3M PRN Opiate 03/04/24 03/04/24 History spray (Narcan) Reversal olanzapine 2.5 mg tablet 2.5 mg PO BID PRN Agitation 03/04/24 03/04/24 History olanzapine 2.5 mg tablet (Zyprexa) 2.5 mg PO BID 03/04/24 03/04/24 History oxybutynin chloride 15 mg 15 mg PO DAILY 03/04/24 03/04/24 History tablet,extended release 24 hr sodium phosphates 19 gram-7 118 ml HI DAILY PRN Constipation 03/04/24 03/04/24 History gram/118 mL enema (Fleet Enema) timolol maleate 0.5 % eye drops 1 drp ophthalmic (eye) DAILY 03/04/24 03/04/24 History trazodone 50 mg tablet 25 mg PO BEDTIME PRN Agitation 03/04/24 03/04/24 History trazodone 50 mg tablet 25 mg PO Q6H PRN Agitation 03/04/24 03/04/24 History Allergies Allergies Allergy/AdvReac Type Severity Reaction Status Date / Time sulfamethoxazole Allergy Unknown Verified 03/03/24 14:32 [From Sulfamethoxazole-Trimethoprim] trimethoprim Allergy Unknown Verified 03/03/24 14:32 [From Sulfamethoxazole-Trimethoprim] Mental Status Exam Mental Status Exam Patient Appearance: Appropriate Patient Orientation: Person Level of Consciousness: Awake Patient Behavior: Guarded Mood Description: Suspicious Affect Description: Labile Patient Cognition Impaired: Yes Ability to Follow Directions: Fair Speech Pattern: Impoverished Hallucinations: None Delusions: Ideas of Reference Thought Process: Distracted and Slowed Thinking Thought Content: positive for [place] and positive for Poverty of Content Judgement: Poor Assessment & Plan Assessment & Plan (1) Dementia: Status: Acute Code(s): F03.90 - Unspecified dementia, unspecified severity, without behavioral disturbance, psychotic disturbance, mood disturbance, and anxiety (2) Major neurocognitive disorder due to Alzheimer's disease, without behavioral disturbance: Status: Acute Code(s): G30.9 - Alzheimer's disease, unspecified; F02.80 - Dementia in other diseases classified elsewhere, unspecified severity, without behavioral disturbance, psychotic disturbance, mood disturbance, and anxiety Plan Elderly female with a past history of Alzheimer's, recently in a subacute rehab due to subdural hematoma referred for exacerbation of agitation. The patient is a very poor historian unable to provide any details still very agitated. Plan 1. Gather collateral information. 2. One-to-one for safety. 3. Continue her regular medications. 4. Start Zyprexa 2.5 p.o. b.i.d. to target agitation. 5. Reassessment with results Patient educated on: substance abuse, therapeutic strategies and medical condition Reason for continued inpatient stay Substantial Risk for: inability to function, rapid decompensation and med/psych decompensation Statement Statement: I have reviewed the history and physical and performed a pertinent examination on my patient. No changes have occurred unless specified. If the History and Physical was not performed prior to admission, the Hospitalist's service will be consulted for completing the admission physical. Time Spent With Patient Time: Total time managing care of this patient today _20___ minutes.
[2024-03-05] MEDS: traZODone HCL 50 MG TABLET PO (20:21)
[2024-03-05] MEDS: Donepezil HCl 5 MG TABLET PO (20:21)
[2024-03-05] MEDS: Famotidine 20 MG TABLET PO (20:21)
[2024-03-06 08:00] VITALS: BP 139/94; PULSE 88; RESP 18; TEMP 36.8; O2SAT 98
[2024-03-06] MEDS: oxyBUTYnin chloride ER 5 MG TAB.ER.24 15 MG PO (08:54)
[2024-03-06] MEDS: Divalproex Sodium Sprinkles 125 MG CAP.DR.SPR 250 MG PO ×3 (08:54→19:41)
[2024-03-06] MEDS: OLANZapine 2.5 MG TABLET PO ×2 (08:54→19:40)
[2024-03-06] MEDS: Loratadine 10 MG TABLET PO (08:54)
[2024-03-06] MEDS: Atorvastatin Calcium 20 MG TABLET PO (08:54)
[2024-03-06 13:01] LABS: Cholesterol 176 mg/dL (<200); Estimated Average Glucose 103 mg/dL; HDL Cholesterol 42 mg/dL (>40); Hemoglobin A1C 105.2372 umol/L; Hemoglobin A1c % 5.2 % (<6.0); LDL Cholesterol Calculated 112 mg/dL (<100); Total Hemoglobin (HGBA1C) 3121.0319 umol/L; Triglycerides 111 mg/dL (<150)
--- NOTE | 2024-03-06 15:47 | HO.PSYCHPN ---
Subjective Subjective Date of Service: 03/06/24 Reason For Visit: combative behaviors Subjective Notes: Section 12B Interim History: The nursing staff reported the patient had been impulsive on one-to-one. She had been agitated but redirectable. Unable to provide any details severely impaired. The social media strategist reported the med with her and apparently they are unsure about disposition. Mental Status Exam Mental Status Exam Patient Appearance: Appropriate Patient Orientation: Person and Situation Level of Consciousness: Awake and Appropriate Patient Behavior: Guarded and Passive Mood Description: Labile Affect Description: Labile Patient Cognition Impaired: Yes Ability to Follow Directions: Fair Speech Pattern: Clear Hallucinations: None Delusions: Ideas of Reference Thought Process: Slowed Thinking Thought Content: positive for [place] and positive for Poverty of Content Judgement: Poor Diagnostics Vital Signs (24Hr): Vital Signs - 24 hr 03/06/24 08:00 Temperature 98.2 F Pulse Rate 88 Respiratory Rate 18 Blood Pressure 139/94 H Pulse Oximetry 98 Oxygen Delivery Method Room Air BMI result Body Mass Index 23.3 Labs 03/03/24 14:57 03/03/24 14:57 Labs: Laboratory Results - last 48 hr 03/06/24 12:00 Estimat Average Glucose 103 Hemoglobin A1c % 5.2 Triglycerides 111 Cholesterol 176 LDL Cholesterol, Calc 112 H HDL Cholesterol 42 Medications Medications Current Medications Acetaminophen (Acetaminophen 325 Mg Tablet) 975 mg PO TID PRN PRN Reason: Fever Or Pain Acetaminophen (Acetaminophen 325 Mg Tablet) 650 mg PO Q6H PRN PRN Reason: Headache/Pain Mild Scale (1-3) Al Hydroxide/Mg Hydroxide (Magnesium Hydrox/Alum Hydrox 30 Ml Oral.Susp) 30 ml PO Q6H PRN PRN Reason: Heartburn/Nausea Atorvastatin Calcium (Atorvastatin Calcium 20 Mg Tablet) 20 mg PO DAILY [facility] Last Admin: 03/06/24 08:54 Dose: 20 mg Bisacodyl (Bisacodyl 10 Mg Supp.Rect) 10 mg [place] DAILY PRN PRN Reason: Constipation Divalproex Sodium (Divalproex Sodium Sprinkles 125 Mg Cap.DrMaria FernandaSpr) 250 mg PO TID [facility] Last Admin: 03/06/24 14:55 Dose: 250 mg Donepezil HCl (Donepezil Hcl 5 Mg Tablet) 5 mg PO BEDTIME [facility] Last Admin: 03/05/24 20:21 Dose: 5 mg Famotidine (Famotidine 20 Mg Tablet) 20 mg PO BEDTIME [facility] Last Admin: 03/05/24 20:21 Dose: 20 mg Hydroxyzine HCl (Hydroxyzine Hcl 25 Mg Tablet) 25 mg PO Q6H PRN PRN Reason: Anxiety Levothyroxine Sodium (Levothyroxine Sodium 75 Mcg Tablet) 75 mcg PO DAILY@0600 [facility] Last Admin: 03/05/24 06:21 Dose: 75 mcg Loratadine (Loratadine 10 Mg Tablet) 10 mg PO DAILY [facility] Last Admin: 03/06/24 08:54 Dose: 10 mg Lorazepam (Lorazepam 0.5 Mg Tablet) 0.5 mg PO BID PRN PRN Reason: severe agitation Last Admin: 03/05/24 14:02 Dose: 0.5 mg Magnesium Hydroxide (Milk Of Magnesia 30 Ml Oral.Susp) 30 ml PO DAILY PRN PRN Reason: Constipation Olanzapine (Olanzapine 2.5 Mg Tablet) 2.5 mg PO BID PRN PRN Reason: Agitation Olanzapine (Olanzapine 2.5 Mg Tablet) 2.5 mg PO BID [facility] Last Admin: 03/06/24 08:54 Dose: 2.5 mg Olanzapine (Olanzapine 10 Mg Tablet) 10 mg PO Q6H PRN PRN Reason: agitation Oxybutynin Chloride (Oxybutynin Chloride Er 5 Mg Tab.Er.24) 15 mg PO DAILY [facility] Last Admin: 03/06/24 08:54 Dose: 15 mg Trazodone HCl (Trazodone Hcl 50 Mg Tablet) 50 mg PO BEDTIME PRN PRN Reason: sleep Last Admin: 03/05/24 20:21 Dose: 50 mg Allergies Allergies Allergy/AdvReac Type Severity Reaction Status Date / Time sulfamethoxazole Allergy Unknown Verified 03/03/24 14:32 [From Sulfamethoxazole-Trimethoprim] trimethoprim Allergy Unknown Verified 03/03/24 14:32 [From Sulfamethoxazole-Trimethoprim] Assessment & Plan Assessment & Plan (1) Dementia: Status: Acute Code(s): F03.90 - Unspecified dementia, unspecified severity, without behavioral disturbance, psychotic disturbance, mood disturbance, and anxiety (2) Major neurocognitive disorder due to Alzheimer's disease, without behavioral disturbance: Status: Acute Code(s): G30.9 - Alzheimer's disease, unspecified; F02.80 - Dementia in other diseases classified elsewhere, unspecified severity, without behavioral disturbance, psychotic disturbance, mood disturbance, and anxiety Plan Elderly female with a past history of Alzheimer's, recently in a subacute rehab due to subdural hematoma referred for exacerbation of agitation. The patient is a very poor historian unable to provide any details still very agitated. Plan 1. Gather collateral information. 2. One-to-one for safety. 3. Continue her regular medications. 4. Start Zyprexa 2.5 p.o. b.i.d. to target agitation. 5. Reassessment with results Reason for continued inpatient stay Substantial Risk for: inability to function, rapid decompensation and med/psych decompensation Time Spent With Patient Time: Total time managing care of this patient today _20___ minutes.
[2024-03-06] MEDS: LORazepam 0.5 MG TABLET PO (17:01)
[2024-03-06 19:37] VITALS: BP 128/65; PULSE 99; RESP 16; TEMP 36.2; O2SAT 94
[2024-03-06] MEDS: Donepezil HCl 5 MG TABLET PO (19:40)
[2024-03-06] MEDS: Famotidine 20 MG TABLET PO (19:41)
[2024-03-07] MEDS: Levothyroxine Sodium 75 MCG TABLET PO (06:29)
[2024-03-07 08:00] VITALS: BP 141/60; PULSE 86; RESP 18; TEMP 36; O2SAT 100
[2024-03-07] MEDS: oxyBUTYnin chloride ER 5 MG TAB.ER.24 15 MG PO (09:29)
[2024-03-07] MEDS: Loratadine 10 MG TABLET PO (09:31)
[2024-03-07] MEDS: Atorvastatin Calcium 20 MG TABLET PO (09:31)
[2024-03-07] MEDS: OLANZapine 2.5 MG TABLET PO ×2 (09:31→20:09)
[2024-03-07] MEDS: Divalproex Sodium Sprinkles 125 MG CAP.DR.SPR 250 MG PO ×3 (09:31→20:09)
[2024-03-07] MEDS: LORazepam 0.5 MG TABLET PO ×2 (11:16→21:30)
--- NOTE | 2024-03-07 13:50 | P.PNPSI_ITS ---
Subjective Subjective Date of Service: 03/07/24 Reason For Visit: combative behaviors Subjective Notes: Conditional Voluntary Interim History: Pt noted to be impulsive, irritable edge asking to go home. She is oriented only to self, very [place], difficult to communicate, which exacerbates frustration and irritability. She is taking medications as prescribed. Medication Compliance: Yes Review of Systems Review of Systems Yes all other systems are reviewed and are negative Constitutional: Reports no additional constitutional complaints, Denies chills, Denies fever(s) and Denies night sweats Eyes: Reports no additional eye complaints, Denies blurry vision, Denies change in vision, Denies diplopia, Denies eye discharge, Denies loss of vision and Denies eye pain Denies dizziness Cardiovascular: Reports no additional cardiovascular complaints, Denies chest pain, Denies lightheadedness, Denies Loss of Consciousness and Denies dyspnea Respiratory: Reports no additional respiratory complaints and Denies dyspnea Gastrointestinal: Reports no additional gastrointestinal complaints, Denies abdominal pain, Denies melena, Denies hematochezia, Denies change in bowel habits and Denies change in stool character Musculoskeletal: Reports no additional musculoskeletal complaints, Denies numbness and Denies tingling Reports confusion (chronic for the patient - per her demented baseline), Denies dizziness, Denies loss of vision, Denies numbness and Denies tingling Psychiatric: Reports no additional psychiatric complaints and Reports confusion (chronic for the patient - per her demented baseline) Endocrine: Reports no additional endocrine complaints Hematologic/Lymphatic: Reports no additional hematologic/lymphatic complaints Allergic/Immunologic: Reports no additional allergic/immunologic complaints Mental Status Exam Mental Status Exam Narrative: Appearance: wearing hospital gown, poor hygiene, restless. [place] Behavior: irritable, asking to bring her home Psychomotor: some agitation noted Speech: mumbles, some difficulty enunciation, loud at times, spontaneous TP: goal oriented- wanting to go home. confabulation TC: wanting to go home Mood: okay Affect: irritable SI: none HI: none VH/AH: no overt signs Delusions: no overt delusional content reported but confabulates. Insight/judgment: impaired x 2 Memory/cog: alert, oriented only to self, not to place, month, year nor situation. Diagnostics Vital Signs (24Hr): Vital Signs - 24 hr 03/06/24 19:37 03/07/24 08:00 Temperature 97.2 F 96.8 F Pulse Rate 99 86 Respiratory Rate 16 18 Blood Pressure 128/65 141/60 H Pulse Oximetry 94 100 Oxygen Delivery Method Room Air Room Air BMI result Body Mass Index 23.3 Labs 03/03/24 14:57 03/03/24 14:57 Labs: Laboratory Results - last 48 hr 03/06/24 12:00 Estimat Average Glucose 103 Hemoglobin A1c % 5.2 Triglycerides 111 Cholesterol 176 LDL Cholesterol, Calc 112 H HDL Cholesterol 42 Medications Medications Current Medications Acetaminophen (Acetaminophen 325 Mg Tablet) 975 mg PO TID PRN PRN Reason: Fever Or Pain Acetaminophen (Acetaminophen 325 Mg Tablet) 650 mg PO Q6H PRN PRN Reason: Headache/Pain Mild Scale (1-3) Al Hydroxide/Mg Hydroxide (Magnesium Hydrox/Alum Hydrox 30 Ml Oral.Susp) 30 ml PO Q6H PRN PRN Reason: Heartburn/Nausea Atorvastatin Calcium (Atorvastatin Calcium 20 Mg Tablet) 20 mg PO DAILY [facility] Last Admin: 03/07/24 09:31 Dose: 20 mg Bisacodyl (Bisacodyl 10 Mg Supp.Rect) 10 mg [place] DAILY PRN PRN Reason: Constipation Divalproex Sodium (Divalproex Sodium Sprinkles 125 Mg Cap.DrMaria FernandaSpr) 250 mg PO TID [facility] Last Admin: 03/07/24 09:31 Dose: 250 mg Donepezil HCl (Donepezil Hcl 5 Mg Tablet) 5 mg PO BEDTIME [facility] Last Admin: 03/06/24 19:40 Dose: 5 mg Famotidine (Famotidine 20 Mg Tablet) 20 mg PO BEDTIME [facility] Last Admin: 03/06/24 19:41 Dose: 20 mg Hydroxyzine HCl (Hydroxyzine Hcl 25 Mg Tablet) 25 mg PO Q6H PRN PRN Reason: Anxiety Levothyroxine Sodium (Levothyroxine Sodium 75 Mcg Tablet) 75 mcg PO DAILY@0600 [facility] Last Admin: 03/07/24 06:29 Dose: 75 mcg Loratadine (Loratadine 10 Mg Tablet) 10 mg PO DAILY [facility] Last Admin: 03/07/24 09:31 Dose: 10 mg Lorazepam (Lorazepam 0.5 Mg Tablet) 0.5 mg PO BID PRN PRN Reason: severe agitation Last Admin: 03/07/24 11:16 Dose: 0.5 mg Magnesium Hydroxide (Milk Of Magnesia 30 Ml Oral.Susp) 30 ml PO DAILY PRN PRN Reason: Constipation Olanzapine (Olanzapine 2.5 Mg Tablet) 2.5 mg PO BID PRN PRN Reason: Agitation Olanzapine (Olanzapine 2.5 Mg Tablet) 2.5 mg PO BID [facility] Last Admin: 03/07/24 09:31 Dose: 2.5 mg Olanzapine (Olanzapine 10 Mg Tablet) 10 mg PO Q6H PRN PRN Reason: agitation Oxybutynin Chloride (Oxybutynin Chloride Er 5 Mg Tab.Er.24) 15 mg PO DAILY [facility] Last Admin: 03/07/24 09:29 Dose: 15 mg Trazodone HCl (Trazodone Hcl 50 Mg Tablet) 50 mg PO BEDTIME PRN PRN Reason: sleep Last Admin: 03/05/24 20:21 Dose: 50 mg Allergies Allergies Allergy/AdvReac Type Severity Reaction Status Date / Time sulfamethoxazole Allergy Unknown Verified 03/03/24 14:32 [From Sulfamethoxazole-Trimethoprim] trimethoprim Allergy Unknown Verified 03/03/24 14:32 [From Sulfamethoxazole-Trimethoprim] Assessment & Plan Assessment & Plan (1) Dementia: Status: Acute Code(s): F03.90 - Unspecified dementia, unspecified severity, without behavioral disturbance, psychotic disturbance, mood disturbance, and anxiety (2) Major neurocognitive disorder due to Alzheimer's disease, without behavioral disturbance: Status: Acute Code(s): G30.9 - Alzheimer's disease, unspecified; F02.80 - Dementia in other diseases classified elsewhere, unspecified severity, without behavioral disturbance, psychotic disturbance, mood disturbance, and anxiety Plan Elderly female with a past history of Alzheimer's, recently in a subacute rehab due to subdural hematoma referred for exacerbation of agitation. The patient is a very poor historian unable to provide any details still very agitated. Plan 1. continue tx. Reason for continued inpatient stay Substantial Risk for: inability to function Time Spent With Patient Time: Total time managing care of this patient today ____ minutes.
[2024-03-07 20:00] VITALS: BP 122/76; PULSE 101; RESP 18; TEMP 36.4; O2SAT 95
[2024-03-07] MEDS: Famotidine 20 MG TABLET PO (20:09)
[2024-03-07] MEDS: traZODone HCL 50 MG TABLET PO (20:09)
[2024-03-07] MEDS: Donepezil HCl 5 MG TABLET PO (20:09)
[2024-03-07] MEDS: hydrOXYzine HCL 25 MG TABLET PO (21:30)
[2024-03-07] MEDS: OLANZapine 10 MG TABLET PO (23:19)
[2024-03-08] MEDS: Levothyroxine Sodium 75 MCG TABLET PO (05:49)
[2024-03-08 09:42] VITALS: BP 118/66; PULSE 85; RESP 18; TEMP 36.3; O2SAT 98
[2024-03-08] MEDS: oxyBUTYnin chloride ER 5 MG TAB.ER.24 15 MG PO (09:47)
[2024-03-08] MEDS: Atorvastatin Calcium 20 MG TABLET PO (09:48)
[2024-03-08] MEDS: OLANZapine 2.5 MG TABLET PO ×3 (09:48→21:05)
[2024-03-08] MEDS: Loratadine 10 MG TABLET PO (09:48)
[2024-03-08] MEDS: Divalproex Sodium Sprinkles 125 MG CAP.DR.SPR 250 MG PO ×3 (09:48→21:05)
[2024-03-08] MEDS: OLANZapine 10 MG TABLET PO (10:08)
--- NOTE | 2024-03-08 12:35 | HO.PSYCHPN ---
Subjective Subjective Date of Service: 03/08/24 Reason For Visit: combative behaviors Interim History: Pt noted to be impulsive, irritable edge asking to go home. She is oriented only to self, very VIEJAS, difficult to communicate, which exacerbates frustration and irritability. She is taking medications as prescribed. Last evening she was slightly combative, given olanzapine with good effect. Review of Systems Review of Systems Yes all other systems are reviewed and are negative Constitutional: Reports no additional constitutional complaints, Denies chills, Denies fever(s) and Denies night sweats Eyes: Reports no additional eye complaints, Denies blurry vision, Denies change in vision, Denies diplopia, Denies eye discharge, Denies loss of vision and Denies eye pain Denies dizziness Cardiovascular: Reports no additional cardiovascular complaints, Denies chest pain, Denies lightheadedness, Denies Loss of Consciousness and Denies dyspnea Respiratory: Reports no additional respiratory complaints and Denies dyspnea Gastrointestinal: Reports no additional gastrointestinal complaints, Denies abdominal pain, Denies melena, Denies hematochezia, Denies change in bowel habits and Denies change in stool character Musculoskeletal: Reports no additional musculoskeletal complaints, Denies numbness and Denies tingling Reports confusion (chronic for the patient - per her demented baseline), Denies dizziness, Denies loss of vision, Denies numbness and Denies tingling Psychiatric: Reports no additional psychiatric complaints and Reports confusion (chronic for the patient - per her demented baseline) Endocrine: Reports no additional endocrine complaints Hematologic/Lymphatic: Reports no additional hematologic/lymphatic complaints Allergic/Immunologic: Reports no additional allergic/immunologic complaints Mental Status Exam Mental Status Exam Narrative: Appearance: wearing hospital gown, poor hygiene, restless. VIEJAS Behavior: irritable, asking to bring her home Psychomotor: some agitation noted Speech: mumbles, some difficulty enunciation, loud at times, spontaneous TP: goal oriented- wanting to go home. confabulation TC: wanting to go home Mood: okay Affect: irritable SI: none HI: none VH/AH: no overt signs Delusions: no overt delusional content reported but confabulates. Insight/judgment: impaired x 2 Memory/cog: alert, oriented only to self, not to place, month, year nor situation. Diagnostics Vital Signs (24Hr): Vital Signs - 24 hr 03/07/24 20:00 03/08/24 09:42 Temperature 97.5 F 97.4 F Pulse Rate 101 H 85 Respiratory Rate 18 18 Blood Pressure 122/76 118/66 Pulse Oximetry 95 98 Oxygen Delivery Method Room Air Room Air BMI result Body Mass Index 23.3 Labs 03/03/24 14:57 03/03/24 14:57 Labs: Laboratory Results - last 48 hr 03/06/24 12:00 Estimat Average Glucose 103 Hemoglobin A1c % 5.2 Triglycerides 111 Cholesterol 176 LDL Cholesterol, Calc 112 H HDL Cholesterol 42 Medications Medications Current Medications Acetaminophen (Acetaminophen 325 Mg Tablet) 975 mg PO TID PRN PRN Reason: Fever Or Pain Acetaminophen (Acetaminophen 325 Mg Tablet) 650 mg PO Q6H PRN PRN Reason: Headache/Pain Mild Scale (1-3) Al Hydroxide/Mg Hydroxide (Magnesium Hydrox/Alum Hydrox 30 Ml Oral.Susp) 30 ml PO Q6H PRN PRN Reason: Heartburn/Nausea Atorvastatin Calcium (Atorvastatin Calcium 20 Mg Tablet) 20 mg PO DAILY [facility] Last Admin: 03/08/24 09:48 Dose: 20 mg Bisacodyl (Bisacodyl 10 Mg Supp.Rect) [address] DAILY PRN PRN Reason: Constipation Divalproex Sodium (Divalproex Sodium Sprinkles 125 Mg [place].Spr) 250 mg PO TID [facility] Last Admin: 03/08/24 09:48 Dose: 250 mg Donepezil HCl (Donepezil Hcl 5 Mg Tablet) 5 mg PO BEDTIME [facility] Last Admin: 03/07/24 20:09 Dose: 5 mg Famotidine (Famotidine 20 Mg Tablet) 20 mg PO BEDTIME [facility] Last Admin: 03/07/24 20:09 Dose: 20 mg Hydroxyzine HCl (Hydroxyzine Hcl 25 Mg Tablet) 25 mg PO Q6H PRN PRN Reason: Anxiety Last Admin: 03/07/24 21:30 Dose: 25 mg Levothyroxine Sodium (Levothyroxine Sodium 75 Mcg Tablet) 75 mcg PO DAILY@0600 [facility] Last Admin: 03/08/24 05:49 Dose: 75 mcg Loratadine (Loratadine 10 Mg Tablet) 10 mg PO DAILY [facility] Last Admin: 03/08/24 09:48 Dose: 10 mg Lorazepam (Lorazepam 0.5 Mg Tablet) 0.5 mg PO BID PRN PRN Reason: severe agitation Last Admin: 03/07/24 21:30 Dose: 0.5 mg Magnesium Hydroxide (Milk Of Magnesia 30 Ml Oral.Susp) 30 ml PO DAILY PRN PRN Reason: Constipation Olanzapine (Olanzapine 2.5 Mg Tablet) 2.5 mg PO BID PRN PRN Reason: Agitation Olanzapine (Olanzapine 2.5 Mg Tablet) 2.5 mg PO BID [facility] Last Admin: 03/08/24 09:48 Dose: 2.5 mg Olanzapine (Olanzapine 10 Mg Tablet) 10 mg PO Q6H PRN PRN Reason: agitation Last Admin: 03/08/24 10:08 Dose: 10 mg Oxybutynin Chloride (Oxybutynin Chloride Er 5 Mg Tab.Er.24) 15 mg PO DAILY [facility] Last Admin: 03/08/24 09:47 Dose: 15 mg Trazodone HCl (Trazodone Hcl 50 Mg Tablet) 50 mg PO BEDTIME PRN PRN Reason: sleep Last Admin: 03/07/24 20:09 Dose: 50 mg Allergies Allergies Allergy/AdvReac Type Severity Reaction Status Date / Time sulfamethoxazole Allergy Unknown Verified 03/03/24 14:32 [From Sulfamethoxazole-Trimethoprim] trimethoprim Allergy Unknown Verified 03/03/24 14:32 [From Sulfamethoxazole-Trimethoprim] Assessment & Plan Assessment & Plan (1) Dementia: Status: Acute Code(s): F03.90 - Unspecified dementia, unspecified severity, without behavioral disturbance, psychotic disturbance, mood disturbance, and anxiety (2) Major neurocognitive disorder due to Alzheimer's disease, without behavioral disturbance: Status: Acute Code(s): G30.9 - Alzheimer's disease, unspecified; F02.80 - Dementia in other diseases classified elsewhere, unspecified severity, without behavioral disturbance, psychotic disturbance, mood disturbance, and anxiety Plan Elderly female with a past history of Alzheimer's, recently in a subacute rehab due to subdural hematoma referred for exacerbation of agitation. The patient is a very poor historian unable to provide any details still very agitated. Plan 1. continue tx. Reason for continued inpatient stay Substantial Risk for: inability to function Time Spent With Patient Time: Total time managing care of this patient today ____ minutes.
[2024-03-08] MEDS: LORazepam 0.5 MG TABLET PO (15:29)
[2024-03-08 20:00] VITALS: BP 131/62; PULSE 106; RESP 18; TEMP 36.6; O2SAT 96
[2024-03-08] MEDS: hydrOXYzine HCL 25 MG TABLET PO (21:05)
[2024-03-08] MEDS: Famotidine 20 MG TABLET PO (21:05)
[2024-03-08] MEDS: Donepezil HCl 5 MG TABLET PO (21:05)
[2024-03-08] MEDS: traZODone HCL 50 MG TABLET PO (21:05)
[2024-03-09] MEDS: Levothyroxine Sodium 75 MCG TABLET PO (05:14)
[2024-03-09 08:00] VITALS: BP 109/62; PULSE 89; RESP 18; TEMP 36.2; O2SAT 95
[2024-03-09] MEDS: Atorvastatin Calcium 20 MG TABLET PO (08:25)
[2024-03-09] MEDS: Divalproex Sodium Sprinkles 125 MG CAP.DR.SPR 250 MG PO ×3 (08:25→20:01)
[2024-03-09] MEDS: Loratadine 10 MG TABLET PO (08:26)
[2024-03-09] MEDS: oxyBUTYnin chloride ER 5 MG TAB.ER.24 15 MG PO (08:26)
[2024-03-09] MEDS: OLANZapine 2.5 MG TABLET PO ×2 (08:26→20:02)
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
[2024-03-09] MEDS: OLANZapine 10 MG TABLET PO (17:00)
[2024-03-09 20:00] VITALS: BP 149/87; PULSE 106; RESP 18; TEMP 36.7; O2SAT 95
[2024-03-09] MEDS: Donepezil HCl 5 MG TABLET PO (20:01)
[2024-03-09] MEDS: traZODone HCL 50 MG TABLET PO (20:02)
[2024-03-09] MEDS: hydrOXYzine HCL 25 MG TABLET PO (20:02)
[2024-03-09] MEDS: Famotidine 20 MG TABLET PO (20:02)
[2024-03-10] MEDS: LORazepam 0.5 MG TABLET PO ×2 (00:18→20:27)
[2024-03-10] MEDS: OLANZapine 10 MG TABLET PO ×3 (02:24→23:47)
[2024-03-10] MEDS: Levothyroxine Sodium 75 MCG TABLET PO (05:26)
[2024-03-10 08:00] VITALS: BP 105/59; PULSE 88; RESP 18; TEMP 36.8; O2SAT 96
[2024-03-10] MEDS: Atorvastatin Calcium 20 MG TABLET PO (08:27)
[2024-03-10] MEDS: OLANZapine 2.5 MG TABLET PO ×2 (08:27→20:27)
[2024-03-10] MEDS: Divalproex Sodium Sprinkles 125 MG CAP.DR.SPR 250 MG PO ×3 (08:27→20:27)
[2024-03-10] MEDS: oxyBUTYnin chloride ER 5 MG TAB.ER.24 15 MG PO (08:27)
[2024-03-10] MEDS: Loratadine 10 MG TABLET PO (08:27)
[2024-03-10 08:37] LABS: Basophils Percent Auto 0.3 % (0-2); Eosinophils Absolute Auto 0.2 X10*3/uL (0.0-0.4); Eosinophils Percent Auto 2.9 % (0-4); Hemoglobin 10.8 g/dl (12.0-16.0); Imm Gran Abs Auto 0.01 X10*3/uL (0.00-0.03); Imm Gran Pct Auto 0.2 % (0.0-0.4); Lymphocytes Absolute Auto 3.5 X10*3/uL (1.2-4.9); Lymphocytes Percent Auto 55.7 % (20-40); MANUAL DIFF FLAG SCAN; Mean Corpuscular HGB Conc 32.7 g/dl (31.0-35.0); Mean Corpuscular Hemoglobin 30.7 pg (27.0-33.0); Mean Corpuscular Volume 93.8 fL (80.0-98.0); Monocytes Absolute Auto 0.7 X10*3/uL (0.1-1.2); Monocytes Percent Auto 11.2 % (2-11); Neutrophils Absolute Auto 1.9 x10*3/uL (2.0-8.3); Neutrophils Percent Auto 29.7 % (45-73); PLT CLUMP 1; Red Blood Count 3.52 X10*6/uL (4.20-5.50); Red Cell Distribution Width 15.9 % (11.0-16.0); SCAN SMEAR FLAG 1
[2024-03-10 08:49] LABS: Alanine Aminotransferase 13 U/L (0-31); Albumin Level 3.2 g/dL (3.5-5.0); Alkaline Phosphatase 106 U/L (39-117); Anion Gap 8 (12-20); Aspartate Amino Transferase 23 U/L (5-31); Bilirubin Total 0.6 mg/dL (0.0-1.0); Blood Urea Nitrogen 17 mg/dL (9-16); Calcium 8.4 mg/dL (8.4-10.2); Carbon Dioxide 28 mmol/L (22-29); Chloride 108 mmol/L (96-108); Creatinine Clr Calc Pharmacy 46.1; Estimated Glomerular Filt Rate > 60; Glucose Fasting 66 mg/dL (60-99); Potassium 4.3 mmol/L (3.3-5.1); Sodium 140 mmol/L (135-145); Total Protein 5.5 g/dL (6.5-8.0)
[2024-03-10 08:56] LABS: Mean Platelet Volume 11.4 fL (9.4-12.3); Platelet Count 131 X10*3/uL (160-400); SLIDE REVIEW VERIFIED; White Blood Count 6.3 X10*3/uL (4.8-10.8)
[2024-03-10 08:57] LABS: Valproate 63.1 mcg/mL (50.0-100.0)
[2024-03-10] MEDS: hydrOXYzine HCL 25 MG TABLET PO ×2 (13:33→23:47)
--- NOTE | 2024-03-10 14:24 | P.PNPSI_ITS ---
Subjective Subjective Date of Service: 03/10/24 Reason For Visit: combative behaviors Subjective Notes: Conditional Voluntary Healthcare Proxy: Yes Interim History: The nursing staff reported the patient had being confused, on one-to-one for safety. Her daughter who is the healthcare proxy signed the conditional voluntary. On interview the patient denies new symptoms very confused. The staff reported that she had been complaining of dysuria so we are ordering a new UA. Mental Status Exam Mental Status Exam Patient Appearance: Appropriate Patient Orientation: Person Level of Consciousness: Restless Patient Behavior: Guarded and Passive Mood Description: Withdrawn Affect Description: Labile Patient Cognition Impaired: Yes Ability to Follow Directions: Good Speech Pattern: Clear Hallucinations: None Delusions: Ideas of Reference Thought Process: Distracted and Slowed Thinking Thought Content: positive for [place] and positive for Poverty of Content Judgement: Poor Diagnostics Vital Signs (24Hr): Vital Signs - 24 hr 03/09/24 20:00 03/10/24 08:00 Temperature 98.1 F 98.3 F Pulse Rate 106 H 88 Respiratory Rate 18 18 Blood Pressure 149/87 H 105/59 L Pulse Oximetry 95 96 Oxygen Delivery Method Room Air Room Air BMI result Body Mass Index 23.3 Labs 03/10/24 07:55 03/10/24 07:55 Labs: Laboratory Results - last 48 hr 03/10/24 07:55 WBC 6.3 RBC 3.52 L Hgb 10.8 L Hct 33.0 L MCV 93.8 MCH 30.7 MCHC 32.7 RDW 15.9 Plt Count 131 L MPV 11.4 Immature Gran % (Auto) 0.2 Neut % (Auto) 29.7 L Lymph % (Auto) 55.7 H [place] % (Auto) 11.2 H Eos % (Auto) 2.9 Baso % (Auto) 0.3 Lymph # (Auto) 3.5 [place] # (Auto) 0.7 Eos # (Auto) 0.2 Baso # (Auto) 0.0 Abs Immat Gran (auto) 0.01 Absolute Neuts (auto) 1.9 L Absolute Nucleated RBC 0.000 Nucleated RBC % (auto) 0.0 Smear Tech's Comments VERIFIED Sodium 140 Potassium 4.3 Chloride 108 Carbon Dioxide 28 Anion Gap 8 L BUN 17 H Creatinine 0.89 Estim Creat Clear Calc 46.1 Estimated GFR > 60 Fasting Glucose 66 Calcium 8.4 Total Bilirubin 0.6 AST 23 ALT 13 Alkaline Phosphatase 106 Total Protein 5.5 L Albumin 3.2 L Valproic Acid 63.1 Medications Medications Current Medications Acetaminophen (Acetaminophen 325 Mg Tablet) 975 mg PO TID PRN PRN Reason: Fever Or Pain Al Hydroxide/Mg Hydroxide (Magnesium Hydrox/Alum Hydrox 30 Ml Oral.Susp) 30 ml PO Q6H PRN PRN Reason: Heartburn/Nausea Atorvastatin Calcium (Atorvastatin Calcium 20 Mg Tablet) 20 mg PO DAILY [facility] Last Admin: 03/10/24 08:27 Dose: 20 mg Bisacodyl (Bisacodyl 10 Mg Supp.Rect) 10 mg [place] DAILY PRN PRN Reason: Constipation Divalproex Sodium (Divalproex Sodium Sprinkles 125 Mg Cap.DrMaria FernandaSpr) 250 mg PO TID [facility] Last Admin: 03/10/24 08:27 Dose: 250 mg Donepezil HCl (Donepezil Hcl 5 Mg Tablet) 5 mg PO BEDTIME [facility] Last Admin: 03/09/24 20:01 Dose: 5 mg Famotidine (Famotidine 20 Mg Tablet) 20 mg PO BEDTIME [facility] Last Admin: 03/09/24 20:02 Dose: 20 mg Hydroxyzine HCl (Hydroxyzine Hcl 25 Mg Tablet) 25 mg PO Q6H PRN PRN Reason: Anxiety Last Admin: 03/10/24 13:33 Dose: 25 mg Levothyroxine Sodium (Levothyroxine Sodium 75 Mcg Tablet) 75 mcg PO DAILY@0600 [facility] Last Admin: 03/10/24 05:26 Dose: 75 mcg Loratadine (Loratadine 10 Mg Tablet) 10 mg PO DAILY [facility] Last Admin: 03/10/24 08:27 Dose: 10 mg Lorazepam (Lorazepam 0.5 Mg Tablet) 0.5 mg PO BID PRN PRN Reason: severe agitation Last Admin: 03/10/24 00:18 Dose: 0.5 mg Magnesium Hydroxide (Milk Of Magnesia 30 Ml Oral.Susp) 30 ml PO DAILY PRN PRN Reason: Constipation Olanzapine (Olanzapine 2.5 Mg Tablet) 2.5 mg PO BID PRN PRN Reason: Agitation Last Admin: 03/08/24 15:29 Dose: 2.5 mg Olanzapine (Olanzapine 2.5 Mg Tablet) 2.5 mg PO BID [facility] Last Admin: 03/10/24 08:27 Dose: 2.5 mg Olanzapine (Olanzapine 10 Mg Tablet) 10 mg PO Q6H PRN PRN Reason: agitation Last Admin: 03/10/24 02:24 Dose: 10 mg Oxybutynin Chloride (Oxybutynin Chloride Er 5 Mg Tab.Er.24) 15 mg PO DAILY [facility] Last Admin: 03/10/24 08:27 Dose: 15 mg Trazodone HCl (Trazodone Hcl 50 Mg Tablet) 50 mg PO BEDTIME PRN PRN Reason: sleep Last Admin: 03/09/24 20:02 Dose: 50 mg Allergies Allergies Allergy/AdvReac Type Severity Reaction Status Date / Time sulfamethoxazole Allergy Unknown Verified 03/03/24 14:32 [From Sulfamethoxazole-Trimethoprim] trimethoprim Allergy Unknown Verified 03/03/24 14:32 [From Sulfamethoxazole-Trimethoprim] Assessment & Plan Assessment & Plan (1) Dementia: Status: Acute Code(s): F03.90 - Unspecified dementia, unspecified severity, without behavioral disturbance, psychotic disturbance, mood disturbance, and anxiety (2) Major neurocognitive disorder due to Alzheimer's disease, without behavioral disturbance: Status: Acute Code(s): G30.9 - Alzheimer's disease, unspecified; F02.80 - Dementia in other diseases classified elsewhere, unspecified severity, without behavioral disturbance, psychotic disturbance, mood disturbance, and anxiety Plan Elderly female with a past history of Alzheimer's, recently in a subacute rehab due to subdural hematoma referred for exacerbation of agitation. The patient is a very poor historian unable to provide any details still very agitated. Plan 1. continue tx. 2. Depakote level, CBC with differential and comprehensive metabolic panel for March 10 before breakfast. 3. Family meeting for disposition. Her daughter wants long-term care but her wants her back. Apparently her also is cognitively impaired. 4. CV signed by healthcare proxy, healthcare proxy invoked today. 5. UA on March 10. Reason for continued inpatient stay Substantial Risk for: inability to function, rapid decompensation and med/psych decompensation Time Spent With Patient Time: Total time managing care of this patient today __20__ minutes.
[2024-03-10 17:40] LABS: Appearance Urine Clear; Color Urine Yellow; Glucose Urine UA Negative (Negative); Leukocyte Esterase Urine Small (1+) (Negative); Nitrite Urine Negative (Negative); Specific Gravity - Urine 1.015 (1.005-1.025); UMIC TRIGGER UACC YES; Urine Blood Negative (Negative); Urine Ketones Negative (Negative); Urine Protein Negative (Neg-Trace)
[2024-03-10 17:43] LABS: Bacteria Urine None Seen (None Seen); Hyaline Casts Urine 0-2 /LPF (0-2); RBC Urine 0-2 /HPF (0-2); Squamous Epithelial Cell Urine 0-2 /HPF (0-2); UACC Culture Trigger YES
[2024-03-10 20:00] VITALS: BP 142/84; PULSE 90; RESP 16; TEMP 36.5; O2SAT 94
[2024-03-10] MEDS: Donepezil HCl 5 MG TABLET PO (20:27)
[2024-03-10] MEDS: traZODone HCL 50 MG TABLET PO (20:27)
[2024-03-10] MEDS: Famotidine 20 MG TABLET PO (20:27)
[2024-03-10] MEDS: Acetaminophen 325 MG TABLET 975 MG PO (23:28)
[2024-03-11] MEDS: Levothyroxine Sodium 75 MCG TABLET PO (06:17)
[2024-03-11 08:32] VITALS: BP 134/81; PULSE 70; RESP 17; TEMP 36.1; O2SAT 96
[2024-03-11] MEDS: Divalproex Sodium Sprinkles 125 MG CAP.DR.SPR 250 MG PO ×2 (08:51→20:21)
[2024-03-11] MEDS: oxyBUTYnin chloride ER 5 MG TAB.ER.24 15 MG PO (08:52)
[2024-03-11] MEDS: Loratadine 10 MG TABLET PO (08:52)
[2024-03-11] MEDS: OLANZapine 2.5 MG TABLET PO ×2 (08:52→20:24)
[2024-03-11] MEDS: Atorvastatin Calcium 20 MG TABLET PO (08:52)
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
[2024-03-11] MEDS: LORazepam 0.5 MG TABLET PO (20:23)
[2024-03-11] MEDS: Donepezil HCl 5 MG TABLET PO (20:23)
[2024-03-11] MEDS: Famotidine 20 MG TABLET PO (20:23)
[2024-03-11] MEDS: traZODone HCL 50 MG TABLET PO (20:24)
[2024-03-12] MEDS: Levothyroxine Sodium 75 MCG TABLET PO (06:26)
[2024-03-12 07:00] VITALS: BMI 19.8
[2024-03-12] MEDS: Atorvastatin Calcium 20 MG TABLET PO (09:00)
[2024-03-12] MEDS: Loratadine 10 MG TABLET PO (09:00)
[2024-03-12] MEDS: Divalproex Sodium Sprinkles 125 MG CAP.DR.SPR 250 MG PO ×3 (09:00→20:09)
[2024-03-12] MEDS: oxyBUTYnin chloride ER 5 MG TAB.ER.24 15 MG PO (09:00)
[2024-03-12 09:19] VITALS: BP 132/78; PULSE 89; RESP 17; TEMP 36; O2SAT 96
[2024-03-12] MEDS: OLANZapine 2.5 MG TABLET PO ×3 (09:51→20:10)
--- NOTE | 2024-03-12 16:51 | HO.PSYCHPN ---
Subjective Subjective Date of Service: 03/12/24 Reason For Visit: combative behaviors Subjective Notes: Conditional Voluntary Healthcare Proxy: Yes Interim History: The nursing staff reported the patient slept most of the morning yesterday she refused her vital signs but she had been polite. The geriatric social worker had a family meeting with her daughter and and they understood that she needs long-term care. The occupational therapist reported that she has poor mobility. On interview the patient denies new symptoms she is grossly confused but redirectable. Mental Status Exam Mental Status Exam Patient Appearance: Appropriate Patient Orientation: Person Level of Consciousness: Awake Patient Behavior: Guarded and Passive Mood Description: Withdrawn Affect Description: Labile Patient Cognition Impaired: Yes Ability to Follow Directions: Good Speech Pattern: Clear Hallucinations: None Delusions: Not Present Thought Process: Distracted and Slowed Thinking Thought Content: positive for [place] and positive for Poverty of Content Judgement: Poor Diagnostics Vital Signs (24Hr): Vital Signs - 24 hr 03/12/24 09:19 Temperature 96.8 F Pulse Rate 89 Respiratory Rate 17 Blood Pressure 132/78 Pulse Oximetry 96 Oxygen Delivery Method Room Air BMI result Body Mass Index 19.8 Labs 03/10/24 07:55 03/10/24 07:55 Labs: Laboratory Results - last 48 hr 03/10/24 17:00 Urine Color Yellow Urine Appearance Clear Urine pH 7.0 Ur Specific [place] 1.015 Urine Protein Negative Urine Glucose (UA) Negative Urine Ketones Negative Urine Blood Negative Urine Nitrite Negative Ur Leukocyte Esterase Small (1+) H Urine RBC 0-2 Urine WBC 6-10 H Ur Squamous Epith Cells 0-2 Urine Bacteria None Seen Hyaline Casts 0-2 Medications Medications Current Medications Acetaminophen (Acetaminophen 325 Mg Tablet) 975 mg PO TID PRN PRN Reason: Fever Or Pain Last Admin: 03/10/24 23:28 Dose: 975 mg Al Hydroxide/Mg Hydroxide (Magnesium Hydrox/Alum Hydrox 30 Ml Oral.Susp) 30 ml PO Q6H PRN PRN Reason: Heartburn/Nausea Atorvastatin Calcium (Atorvastatin Calcium 20 Mg Tablet) 20 mg PO DAILY [facility] Last Admin: 03/12/24 09:00 Dose: 20 mg Bisacodyl (Bisacodyl 10 Mg Supp.Rect) 10 mg [place] DAILY PRN PRN Reason: Constipation Divalproex Sodium (Divalproex Sodium Sprinkles 125 Mg ) 250 mg PO TID [facility] Last Admin: 03/12/24 15:42 Dose: 250 mg Donepezil HCl (Donepezil Hcl 5 Mg Tablet) 5 mg PO BEDTIME [facility] Last Admin: 03/11/24 20:23 Dose: 5 mg Famotidine (Famotidine 20 Mg Tablet) 20 mg PO BEDTIME [facility] Last Admin: 03/11/24 20:23 Dose: 20 mg Hydroxyzine HCl (Hydroxyzine Hcl 25 Mg Tablet) 25 mg PO Q6H PRN PRN Reason: Anxiety Last Admin: 03/10/24 23:47 Dose: 25 mg Levothyroxine Sodium (Levothyroxine Sodium 75 Mcg Tablet) 75 mcg PO DAILY@0600 [facility] Last Admin: 03/12/24 06:26 Dose: 75 mcg Loratadine (Loratadine 10 Mg Tablet) 10 mg PO DAILY [facility] Last Admin: 03/12/24 09:00 Dose: 10 mg Lorazepam (Lorazepam 0.5 Mg Tablet) 0.5 mg PO BID PRN PRN Reason: severe agitation Last Admin: 03/11/24 20:23 Dose: 0.5 mg Magnesium Hydroxide (Milk Of Magnesia 30 Ml Oral.Susp) 30 ml PO DAILY PRN PRN Reason: Constipation Olanzapine (Olanzapine 2.5 Mg Tablet) 2.5 mg PO BID PRN PRN Reason: Agitation Last Admin: 03/12/24 16:50 Dose: 2.5 mg Olanzapine (Olanzapine 2.5 Mg Tablet) 2.5 mg PO BID [facility] Last Admin: 03/12/24 09:51 Dose: 2.5 mg Olanzapine (Olanzapine 10 Mg Tablet) 10 mg PO Q6H PRN PRN Reason: agitation Last Admin: 03/10/24 23:47 Dose: 10 mg Oxybutynin Chloride (Oxybutynin Chloride Er 5 Mg Tab.Er.24) 15 mg PO DAILY [facility] Last Admin: 03/12/24 09:00 Dose: 15 mg Trazodone HCl (Trazodone Hcl 50 Mg Tablet) 50 mg PO BEDTIME PRN PRN Reason: sleep Last Admin: 03/11/24 20:24 Dose: 50 mg Allergies Allergies Allergy/AdvReac Type Severity Reaction Status Date / Time sulfamethoxazole Allergy Unknown Verified 03/03/24 14:32 [From Sulfamethoxazole-Trimethoprim] trimethoprim Allergy Unknown Verified 03/03/24 14:32 [From Sulfamethoxazole-Trimethoprim] Assessment & Plan Assessment & Plan (1) Dementia: Status: Acute Code(s): F03.90 - Unspecified dementia, unspecified severity, without behavioral disturbance, psychotic disturbance, mood disturbance, and anxiety (2) Major neurocognitive disorder due to Alzheimer's disease, without behavioral disturbance: Status: Acute Code(s): G30.9 - Alzheimer's disease, unspecified; F02.80 - Dementia in other diseases classified elsewhere, unspecified severity, without behavioral disturbance, psychotic disturbance, mood disturbance, and anxiety Plan Elderly female with a past history of Alzheimer's, recently in a subacute rehab due to subdural hematoma referred for exacerbation of agitation. The patient is a very poor historian unable to provide any details still very agitated. Plan 1. continue tx. 2. Depakote level, CBC with differential and comprehensive metabolic panel for March 10 before breakfast. 3. Family meeting for disposition. Her daughter wants long-term care but her wants her back. Apparently her also is cognitively impaired. 4. CV signed by healthcare proxy, healthcare proxy invoked today. 5. UA on March 10. We are going to repeat UA in March 12 Reason for continued inpatient stay Substantial Risk for: inability to function, rapid decompensation and med/psych decompensation Time Spent With Patient Time: Total time managing care of this patient today _20___ minutes.
[2024-03-12 20:00] VITALS: BP 140/68; PULSE 103; RESP 16; TEMP 36.8; O2SAT 96
[2024-03-12] MEDS: Famotidine 20 MG TABLET PO (20:09)
[2024-03-12] MEDS: Donepezil HCl 5 MG TABLET PO (20:10)
[2024-03-13 03:17] LABS: Appearance Urine Clear; Color Urine Yellow; Glucose Urine UA Negative (Negative); Leukocyte Esterase Urine Moderate (2+) (Negative); Nitrite Urine Negative (Negative); PH 7.5 (5.0-9.0); UMIC TRIGGER UACC YES; Urine Blood Negative (Negative); Urine Ketones Negative (Negative); Urine Protein Negative (Neg-Trace)
[2024-03-13 03:35] LABS: Bacteria Urine None Seen (None Seen); Hyaline Casts Urine 0-2 /LPF (0-2); RBC Urine 0-2 /HPF (0-2); Squamous Epithelial Cell Urine 0-2 /HPF (0-2); UACC Culture Trigger YES
[2024-03-13] MEDS: Levothyroxine Sodium 75 MCG TABLET PO (06:26)
[2024-03-13] MEDS: oxyBUTYnin chloride ER 5 MG TAB.ER.24 15 MG PO (08:54)
[2024-03-13] MEDS: Loratadine 10 MG TABLET PO (08:54)
[2024-03-13] MEDS: Atorvastatin Calcium 20 MG TABLET PO (08:54)
[2024-03-13] MEDS: Divalproex Sodium Sprinkles 125 MG CAP.DR.SPR 250 MG PO ×3 (08:54→20:06)
--- NOTE | 2024-03-13 10:22 | P.PNPSI_ITS ---
Subjective Subjective Date of Service: 03/13/24 Reason For Visit: combative behaviors Subjective Notes: Conditional Voluntary Healthcare Proxy: Yes Interim History: The nursing staff reported the patient had been confused but redirectable. She had been slightly irritable but no need of PRNs. Yesterday we order a new UA since the patient was reporting dysuria. Waiting for the culture. On interview the patient denies new symptoms pleasantly confused. Yesterday we had a meeting with her daughter and her and we explained that she needs long-term care and they agreed on that. Now her daughter is going to be the primarily in the healthcare proxy. Mental Status Exam Mental Status Exam Patient Appearance: Appropriate Patient Orientation: Person and Situation Level of Consciousness: Awake Patient Behavior: Guarded and Passive Mood Description: Calm Affect Description: Labile Patient Cognition Impaired: Yes Ability to Follow Directions: Good Speech Pattern: Clear Hallucinations: None Delusions: Not Present Thought Process: Illogical and Distracted Thought Content: positive for [place] and positive for Poverty of Content Judgement: Poor Diagnostics Vital Signs (24Hr): Vital Signs - 24 hr 03/12/24 20:00 Temperature 98.3 F Pulse Rate 103 H Respiratory Rate 16 Blood Pressure 140/68 H Pulse Oximetry 96 Oxygen Delivery Method Room Air BMI result Body Mass Index 19.8 Labs 03/10/24 07:55 03/10/24 07:55 Labs: Laboratory Results - last 48 hr 03/13/24 03:00 Urine Color Yellow Urine Appearance Clear Urine pH 7.5 Ur Specific [place] 1.010 Urine Protein Negative Urine Glucose (UA) Negative Urine Ketones Negative Urine Blood Negative Urine Nitrite Negative Ur Leukocyte Esterase Moderate (2+) H Urine RBC 0-2 Urine WBC 11-20 Ur Squamous Epith Cells 0-2 Urine Bacteria None Seen Hyaline Casts 0-2 Medications Medications Current Medications Acetaminophen (Acetaminophen 325 Mg Tablet) 975 mg PO TID PRN PRN Reason: Fever Or Pain Last Admin: 03/10/24 23:28 Dose: 975 mg Al Hydroxide/Mg Hydroxide (Magnesium Hydrox/Alum Hydrox 30 Ml Oral.Susp) 30 ml PO Q6H PRN PRN Reason: Heartburn/Nausea Atorvastatin Calcium (Atorvastatin Calcium 20 Mg Tablet) 20 mg PO DAILY [facility] Last Admin: 03/13/24 08:54 Dose: 20 mg Bisacodyl (Bisacodyl 10 Mg Supp.Rect) 10 mg [place] DAILY PRN PRN Reason: Constipation Divalproex Sodium (Divalproex Sodium Sprinkles 125 Mg ) 250 mg PO TID [facility] Last Admin: 03/13/24 08:54 Dose: 250 mg Donepezil HCl (Donepezil Hcl 5 Mg Tablet) 5 mg PO BEDTIME [facility] Last Admin: 03/12/24 20:10 Dose: 5 mg Famotidine (Famotidine 20 Mg Tablet) 20 mg PO BEDTIME [facility] Last Admin: 03/12/24 20:09 Dose: 20 mg Hydroxyzine HCl (Hydroxyzine Hcl 25 Mg Tablet) 25 mg PO Q6H PRN PRN Reason: Anxiety Last Admin: 03/10/24 23:47 Dose: 25 mg Levothyroxine Sodium (Levothyroxine Sodium 75 Mcg Tablet) 75 mcg PO DAILY@0600 [facility] Last Admin: 03/13/24 06:26 Dose: 75 mcg Loratadine (Loratadine 10 Mg Tablet) 10 mg PO DAILY [facility] Last Admin: 03/13/24 08:54 Dose: 10 mg Lorazepam (Lorazepam 0.5 Mg Tablet) 0.5 mg PO BID PRN PRN Reason: severe agitation Last Admin: 03/11/24 20:23 Dose: 0.5 mg Magnesium Hydroxide (Milk Of Magnesia 30 Ml Oral.Susp) 30 ml PO DAILY PRN PRN Reason: Constipation Olanzapine (Olanzapine 2.5 Mg Tablet) 2.5 mg PO BID PRN PRN Reason: Agitation Last Admin: 03/12/24 16:50 Dose: 2.5 mg Olanzapine (Olanzapine 2.5 Mg Tablet) 2.5 mg PO BID [facility] Last Admin: 03/12/24 20:10 Dose: 2.5 mg Olanzapine (Olanzapine 10 Mg Tablet) 10 mg PO Q6H PRN PRN Reason: agitation Last Admin: 03/10/24 23:47 Dose: 10 mg Oxybutynin Chloride (Oxybutynin Chloride Er 5 Mg Tab.Er.24) 15 mg PO DAILY [facility] Last Admin: 03/13/24 08:54 Dose: 15 mg Trazodone HCl (Trazodone Hcl 50 Mg Tablet) 50 mg PO BEDTIME PRN PRN Reason: sleep Last Admin: 03/11/24 20:24 Dose: 50 mg Allergies Allergies Allergy/AdvReac Type Severity Reaction Status Date / Time sulfamethoxazole Allergy Unknown Verified 03/03/24 14:32 [From Sulfamethoxazole-Trimethoprim] trimethoprim Allergy Unknown Verified 03/03/24 14:32 [From Sulfamethoxazole-Trimethoprim] Assessment & Plan Assessment & Plan (1) Dementia: Status: Acute Code(s): F03.90 - Unspecified dementia, unspecified severity, without behavioral disturbance, psychotic disturbance, mood disturbance, and anxiety (2) Major neurocognitive disorder due to Alzheimer's disease, without behavioral disturbance: Status: Acute Code(s): G30.9 - Alzheimer's disease, unspecified; F02.80 - Dementia in other diseases classified elsewhere, unspecified severity, without behavioral disturbance, psychotic disturbance, mood disturbance, and anxiety Plan Elderly female with a past history of Alzheimer's, recently in a subacute rehab due to subdural hematoma referred for exacerbation of agitation. The patient is a very poor historian unable to provide any details still very agitated. Plan 1. continue tx. 2. Depakote level, CBC with differential and comprehensive metabolic panel for March 10 before breakfast. 3. Family meeting for disposition. Her daughter wants long-term care but her wants her back. Apparently her also is cognitively impaired. 4. CV signed by healthcare proxy, healthcare proxy invoked today. 5. UA on March 10. We are going to repeat UA in March 12. It the UA of the 16 that was collected on the came up with leukocytosis, waiting for the culture. The previous culture of March 10 came back with vaginal ralph. Reason for continued inpatient stay Substantial Risk for: inability to function, rapid decompensation and med/psych decompensation Time Spent With Patient Time: Total time managing care of this patient today _20___ minutes.
[2024-03-13] MEDS: OLANZapine 2.5 MG TABLET PO ×3 (12:40→20:05)
[2024-03-13 20:00] VITALS: BP 152/84; PULSE 77; RESP 6; TEMP 37.1; O2SAT 92
[2024-03-13] MEDS: Famotidine 20 MG TABLET PO (20:05)
[2024-03-13] MEDS: Donepezil HCl 5 MG TABLET PO (20:05)
[2024-03-13] MEDS: traZODone HCL 50 MG TABLET PO (23:25)
[2024-03-13] MEDS: OLANZapine 10 MG TABLET PO (23:25)
[2024-03-14] MEDS: Levothyroxine Sodium 75 MCG TABLET PO (05:57)
[2024-03-14 08:30] VITALS: BP 125/59; PULSE 53; RESP 15; TEMP 36.7; O2SAT 95
[2024-03-14] MEDS: oxyBUTYnin chloride ER 5 MG TAB.ER.24 15 MG PO (09:32)
[2024-03-14] MEDS: Atorvastatin Calcium 20 MG TABLET PO (09:33)
[2024-03-14] MEDS: Loratadine 10 MG TABLET PO (09:34)
[2024-03-14] MEDS: Divalproex Sodium Sprinkles 125 MG CAP.DR.SPR 250 MG PO ×3 (09:34→20:28)
[2024-03-14] MEDS: OLANZapine 2.5 MG TABLET PO ×3 (09:34→23:36)
--- NOTE | 2024-03-14 13:10 | HO.PSYCHPN ---
Subjective Subjective Date of Service: 03/14/24 Reason For Visit: combative behaviors Subjective Notes: Conditional Voluntary Interim History: Patient was seen and discussed in rounds today. Records and plans were reviewed. She did not eat breakfast or lunch. Vitals have been stable. No fever. No dangerous behaviors. No changes were made today Review of Systems Review of Systems Yes all other systems are reviewed and are negative Mental Status Exam Mental Status Exam Patient Appearance: Appropriate Patient Orientation: Person and Situation Level of Consciousness: Awake Patient Behavior: Guarded and Passive Mood Description: Calm Affect Description: Labile Patient Cognition Impaired: Yes Ability to Follow Directions: Good Speech Pattern: Clear Hallucinations: None Delusions: Not Present Thought Process: Illogical and Distracted Thought Content: positive for [place] and positive for Poverty of Content Judgement: Poor Diagnostics Vital Signs (24Hr): Vital Signs - 24 hr 03/13/24 20:00 03/14/24 08:30 Temperature 98.8 F 98.1 F Pulse Rate 77 53 Respiratory Rate 6 L 15 Blood Pressure 152/84 H 125/59 L Pulse Oximetry 92 95 Oxygen Delivery Method Room Air Room Air BMI result Body Mass Index 19.8 Labs 03/10/24 07:55 03/10/24 07:55 Labs: Laboratory Results - last 48 hr 03/13/24 03:00 Urine Color Yellow Urine Appearance Clear Urine pH 7.5 Ur Specific [place] 1.010 Urine Protein Negative Urine Glucose (UA) Negative Urine Ketones Negative Urine Blood Negative Urine Nitrite Negative Ur Leukocyte Esterase Moderate (2+) H Urine RBC 0-2 Urine WBC 11-20 Ur Squamous Epith Cells 0-2 Urine Bacteria None Seen Hyaline Casts 0-2 Medications Medications Current Medications Acetaminophen (Acetaminophen 325 Mg Tablet) 975 mg PO TID PRN PRN Reason: Fever Or Pain Last Admin: 03/10/24 23:28 Dose: 975 mg Al Hydroxide/Mg Hydroxide (Magnesium Hydrox/Alum Hydrox 30 Ml Oral.Susp) 30 ml PO Q6H PRN PRN Reason: Heartburn/Nausea Atorvastatin Calcium (Atorvastatin Calcium 20 Mg Tablet) 20 mg PO DAILY [facility] Last Admin: 03/14/24 09:33 Dose: 20 mg Bisacodyl (Bisacodyl 10 Mg Supp.Rect) 10 mg [place] DAILY PRN PRN Reason: Constipation Divalproex Sodium (Divalproex Sodium Sprinkles 125 Mg ) 250 mg PO TID [facility] Last Admin: 03/14/24 09:34 Dose: 250 mg Donepezil HCl (Donepezil Hcl 5 Mg Tablet) 5 mg PO BEDTIME [facility] Last Admin: 03/13/24 20:05 Dose: 5 mg Famotidine (Famotidine 20 Mg Tablet) 20 mg PO BEDTIME [facility] Last Admin: 03/13/24 20:05 Dose: 20 mg Hydroxyzine HCl (Hydroxyzine Hcl 25 Mg Tablet) 25 mg PO Q6H PRN PRN Reason: Anxiety Last Admin: 03/10/24 23:47 Dose: 25 mg Levothyroxine Sodium (Levothyroxine Sodium 75 Mcg Tablet) 75 mcg PO DAILY@0600 [facility] Last Admin: 03/14/24 05:57 Dose: 75 mcg Loratadine (Loratadine 10 Mg Tablet) 10 mg PO DAILY [facility] Last Admin: 03/14/24 09:34 Dose: 10 mg Lorazepam (Lorazepam 0.5 Mg Tablet) 0.5 mg PO BID PRN PRN Reason: severe agitation Last Admin: 03/11/24 20:23 Dose: 0.5 mg Magnesium Hydroxide (Milk Of Magnesia 30 Ml Oral.Susp) 30 ml PO DAILY PRN PRN Reason: Constipation Olanzapine (Olanzapine 2.5 Mg Tablet) 2.5 mg PO BID PRN PRN Reason: Agitation Last Admin: 03/13/24 14:50 Dose: 2.5 mg Olanzapine (Olanzapine 2.5 Mg Tablet) 2.5 mg PO BID [facility] Last Admin: 03/14/24 09:34 Dose: 2.5 mg Olanzapine (Olanzapine 10 Mg Tablet) 10 mg PO Q6H PRN PRN Reason: agitation Last Admin: 03/13/24 23:25 Dose: 10 mg Oxybutynin Chloride (Oxybutynin Chloride Er 5 Mg Tab.Er.24) 15 mg PO DAILY [facility] Last Admin: 03/14/24 09:32 Dose: 15 mg Trazodone HCl (Trazodone Hcl 50 Mg Tablet) 50 mg PO BEDTIME PRN PRN Reason: sleep Last Admin: 03/13/24 23:25 Dose: 50 mg Allergies Allergies Allergy/AdvReac Type Severity Reaction Status Date / Time sulfamethoxazole Allergy Unknown Verified 03/03/24 14:32 [From Sulfamethoxazole-Trimethoprim] trimethoprim Allergy Unknown Verified 03/03/24 14:32 [From Sulfamethoxazole-Trimethoprim] Assessment & Plan Assessment & Plan (1) Dementia: Status: Acute Code(s): F03.90 - Unspecified dementia, unspecified severity, without behavioral disturbance, psychotic disturbance, mood disturbance, and anxiety (2) Major neurocognitive disorder due to Alzheimer's disease, without behavioral disturbance: Status: Acute Code(s): G30.9 - Alzheimer's disease, unspecified; F02.80 - Dementia in other diseases classified elsewhere, unspecified severity, without behavioral disturbance, psychotic disturbance, mood disturbance, and anxiety Plan Elderly female with a past history of Alzheimer's, recently in a subacute rehab due to subdural hematoma referred for exacerbation of agitation. The patient is a very poor historian unable to provide any details still very agitated. Plan 1. continue tx. 2. Depakote level, CBC with differential and comprehensive metabolic panel for March 10 before breakfast. 3. Family meeting for disposition. Her daughter wants long-term care but her wants her back. Apparently her also is cognitively impaired. 4. CV signed by healthcare proxy, healthcare proxy invoked today. 5. UA on March 10. We are going to repeat UA in March 12. It the UA of the that was collected on the came up with leukocytosis, waiting for the culture. The previous culture of March 10 came back with vaginal ralph. 03/14/2024: Continue current regimen and plans Reason for continued inpatient stay Substantial Risk for: med/psych decompensation Time Spent With Patient Time: Total time managing care of this patient today ____ minutes.
[2024-03-14 20:00] VITALS: BP 144/89; PULSE 89; RESP 16; TEMP 36.5; O2SAT 95
[2024-03-14] MEDS: Donepezil HCl 5 MG TABLET PO (20:28)
[2024-03-14] MEDS: hydrOXYzine HCL 25 MG TABLET PO (20:28)
[2024-03-14] MEDS: Famotidine 20 MG TABLET PO (20:28)
[2024-03-14] MEDS: traZODone HCL 50 MG TABLET PO (23:36)
[2024-03-15] MEDS: LORazepam 0.5 MG TABLET PO ×2 (01:38→13:53)
[2024-03-15] MEDS: hydrOXYzine HCL 25 MG TABLET PO ×2 (02:29→17:06)
--- NOTE | 2024-03-15 02:52 | PC.NURSE ---
Patient had a very restless night given several PRNs with limited effect. Patient is Perseverating on finding her keys to drive home then yelling for her to come get her, swinging @ staff while demanding to sleep. Staff assisted her OOB to BR X3. Clothing changed for comfort. Given several snacks and fluids. Given another dose of PRN Atarax @ 0230 with pending effect.
[2024-03-15 11:42] VITALS: BP 147/63; PULSE 84; RESP 18; TEMP 36.5; O2SAT 99
[2024-03-15] MEDS: oxyBUTYnin chloride ER 5 MG TAB.ER.24 15 MG PO (11:51)
[2024-03-15] MEDS: Divalproex Sodium Sprinkles 125 MG CAP.DR.SPR 250 MG PO ×3 (11:53→20:26)
[2024-03-15] MEDS: OLANZapine 2.5 MG TABLET PO ×3 (11:53→20:26)
[2024-03-15] MEDS: Loratadine 10 MG TABLET PO (11:54)
[2024-03-15] MEDS: Atorvastatin Calcium 20 MG TABLET PO (11:54)
[2024-03-15] MEDS: Levothyroxine Sodium 75 MCG TABLET PO (11:54)
--- NOTE | 2024-03-15 12:14 | HO.PSYCHPN ---
Subjective Subjective Date of Service: 03/15/24 Reason For Visit: combative behaviors Subjective Notes: Conditional Voluntary Interim History: Patient was seen and discussed in rounds today. Records and plans were reviewed. She continues to be anxious. Slept adequately. Eating has been up and down. No complaints or side effects. No behavioral issues or dangerous behaviors. Review of Systems Review of Systems Yes Unobtainable due to mental status Mental Status Exam Mental Status Exam Patient Appearance: Appropriate Patient Orientation: Person and Situation Level of Consciousness: Awake Patient Behavior: Guarded and Passive Mood Description: Calm Affect Description: Labile Patient Cognition Impaired: Yes Ability to Follow Directions: Good Speech Pattern: Clear Hallucinations: None Delusions: Not Present Thought Process: Illogical and Distracted Thought Content: positive for [place] and positive for Poverty of Content Judgement: Poor Diagnostics Vital Signs (24Hr): Vital Signs - 24 hr 03/14/24 20:00 03/15/24 11:42 Temperature 97.7 F 97.7 F Pulse Rate 89 84 Respiratory Rate 16 18 Blood Pressure 144/89 H 147/63 H Pulse Oximetry 95 99 Oxygen Delivery Method Room Air Room Air BMI result Body Mass Index 19.8 Labs 03/10/24 07:55 03/10/24 07:55 Medications Medications Current Medications Acetaminophen (Acetaminophen 325 Mg Tablet) 975 mg PO TID PRN PRN Reason: Fever Or Pain Last Admin: 03/10/24 23:28 Dose: 975 mg Al Hydroxide/Mg Hydroxide (Magnesium Hydrox/Alum Hydrox 30 Ml Oral.Susp) 30 ml PO Q6H PRN PRN Reason: Heartburn/Nausea Atorvastatin Calcium (Atorvastatin Calcium 20 Mg Tablet) 20 mg PO DAILY [facility] Last Admin: 03/15/24 11:54 Dose: 20 mg Bisacodyl (Bisacodyl 10 Mg Supp.Rect) 10 mg [place] DAILY PRN PRN Reason: Constipation Divalproex Sodium (Divalproex Sodium Sprinkles 125 Mg [place].) 250 mg PO TID [facility] Last Admin: 03/15/24 11:53 Dose: 250 mg Donepezil HCl (Donepezil Hcl 5 Mg Tablet) 5 mg PO BEDTIME [facility] Last Admin: 03/14/24 20:28 Dose: 5 mg Famotidine (Famotidine 20 Mg Tablet) 20 mg PO BEDTIME [facility] Last Admin: 03/14/24 20:28 Dose: 20 mg Hydroxyzine HCl (Hydroxyzine Hcl 25 Mg Tablet) 25 mg PO Q6H PRN PRN Reason: Anxiety Last Admin: 03/15/24 02:29 Dose: 25 mg Levothyroxine Sodium (Levothyroxine Sodium 75 Mcg Tablet) 75 mcg PO DAILY@0600 [facility] Last Admin: 03/15/24 11:54 Dose: 75 mcg Loratadine (Loratadine 10 Mg Tablet) 10 mg PO DAILY [facility] Last Admin: 03/15/24 11:54 Dose: 10 mg Lorazepam (Lorazepam 0.5 Mg Tablet) 0.5 mg PO BID PRN PRN Reason: severe agitation Last Admin: 03/15/24 01:38 Dose: 0.5 mg Magnesium Hydroxide (Milk Of Magnesia 30 Ml Oral.Susp) 30 ml PO DAILY PRN PRN Reason: Constipation Olanzapine (Olanzapine 2.5 Mg Tablet) 2.5 mg PO BID PRN PRN Reason: Agitation Last Admin: 03/14/24 23:36 Dose: 2.5 mg Olanzapine (Olanzapine 2.5 Mg Tablet) 2.5 mg PO BID [facility] Last Admin: 03/15/24 11:53 Dose: 2.5 mg Olanzapine (Olanzapine 10 Mg Tablet) 10 mg PO Q6H PRN PRN Reason: agitation Last Admin: 03/13/24 23:25 Dose: 10 mg Oxybutynin Chloride (Oxybutynin Chloride Er 5 Mg Tab.Er.24) 15 mg PO DAILY [facility] Last Admin: 03/15/24 11:51 Dose: 15 mg Trazodone HCl (Trazodone Hcl 50 Mg Tablet) 50 mg PO BEDTIME PRN PRN Reason: sleep Last Admin: 03/14/24 23:36 Dose: 50 mg Allergies Allergies Allergy/AdvReac Type Severity Reaction Status Date / Time sulfamethoxazole Allergy Unknown Verified 03/03/24 14:32 [From Sulfamethoxazole-Trimethoprim] trimethoprim Allergy Unknown Verified 03/03/24 14:32 [From Sulfamethoxazole-Trimethoprim] Assessment & Plan Assessment & Plan (1) Dementia: Status: Acute Code(s): F03.90 - Unspecified dementia, unspecified severity, without behavioral disturbance, psychotic disturbance, mood disturbance, and anxiety (2) Major neurocognitive disorder due to Alzheimer's disease, without behavioral disturbance: Status: Acute Code(s): G30.9 - Alzheimer's disease, unspecified; F02.80 - Dementia in other diseases classified elsewhere, unspecified severity, without behavioral disturbance, psychotic disturbance, mood disturbance, and anxiety Plan Elderly female with a past history of Alzheimer's, recently in a subacute rehab due to subdural hematoma referred for exacerbation of agitation. The patient is a very poor historian unable to provide any details still very agitated. Plan 1. continue tx. 2. Depakote level, CBC with differential and comprehensive metabolic panel for March 10 before breakfast. 3. Family meeting for disposition. Her daughter wants long-term care but her wants her back. Apparently her also is cognitively impaired. 4. CV signed by healthcare proxy, healthcare proxy invoked today. 5. UA on March 10. We are going to repeat UA in March 12. It the UA of the 16 that was collected on the came up with leukocytosis, waiting for the culture. The previous culture of March 10 came back with vaginal ralph. 03/14/2024: Continue current regimen and plans 03/15/2024: Continue current regimen and plans Reason for continued inpatient stay Substantial Risk for: inability to function Time Spent With Patient Time: Total time managing care of this patient today ____ minutes.
[2024-03-15] MEDS: OLANZapine 10 MG TABLET PO (17:06)
[2024-03-15 20:00] VITALS: BP 108/58; PULSE 70; RESP 18; TEMP 36.6; O2SAT 96
[2024-03-15] MEDS: traZODone HCL 50 MG TABLET PO (20:26)
[2024-03-15] MEDS: Donepezil HCl 5 MG TABLET PO (20:26)
[2024-03-15] MEDS: Famotidine 20 MG TABLET PO (20:26)
[2024-03-16] MEDS: Levothyroxine Sodium 75 MCG TABLET PO (05:21)
[2024-03-16 09:27] VITALS: BP 135/63; PULSE 68; RESP 16; TEMP 36.4; O2SAT 98
[2024-03-16] MEDS: Atorvastatin Calcium 20 MG TABLET PO (09:28)
[2024-03-16] MEDS: oxyBUTYnin chloride ER 5 MG TAB.ER.24 15 MG PO (09:28)
[2024-03-16] MEDS: OLANZapine 2.5 MG TABLET PO ×2 (09:29→20:12)
[2024-03-16] MEDS: Loratadine 10 MG TABLET PO (09:29)
[2024-03-16] MEDS: Divalproex Sodium Sprinkles 125 MG CAP.DR.SPR 250 MG PO ×3 (09:29→20:14)
[2024-03-16] MEDS: OLANZapine 10 MG TABLET PO ×2 (11:22→20:12)
[2024-03-16] MEDS: hydrOXYzine HCL 25 MG TABLET PO ×2 (11:22→20:12)
--- NOTE | 2024-03-16 13:38 | P.PNPSI_ITS ---
Subjective Subjective Date of Service: 03/16/24 Reason For Visit: combative behaviors Subjective Notes: Conditional Voluntary Interim History: The nursing staff reported the patient had been confused but redirectable. On interview the patient denies new symptoms Mental Status Exam Mental Status Exam Patient Appearance: Well Grooomed and Appropriate Patient Orientation: Person and Situation Level of Consciousness: Awake Patient Behavior: Guarded Mood Description: Calm Affect Description: Constricted Patient Cognition Impaired: Yes Ability to Follow Directions: Good Speech Pattern: Clear Hallucinations: None Delusions: Paranoid Ideation and Ideas of Reference Thought Process: Distracted and Slowed Thinking Thought Content: positive for [place] and positive for Poverty of Content Judgement: Fair Diagnostics Vital Signs (24Hr): Vital Signs - 24 hr 03/15/24 20:00 03/16/24 09:27 Temperature 97.9 F 97.5 F Pulse Rate 70 68 Respiratory Rate 18 16 Blood Pressure 108/58 L 135/63 Pulse Oximetry 96 98 Oxygen Delivery Method Room Air Room Air BMI result Body Mass Index 19.8 Labs 03/10/24 07:55 03/10/24 07:55 Medications Medications Current Medications Acetaminophen (Acetaminophen 325 Mg Tablet) 975 mg PO TID PRN PRN Reason: Fever Or Pain Last Admin: 03/10/24 23:28 Dose: 975 mg Al Hydroxide/Mg Hydroxide (Magnesium Hydrox/Alum Hydrox 30 Ml Oral.Susp) 30 ml PO Q6H PRN PRN Reason: Heartburn/Nausea Atorvastatin Calcium (Atorvastatin Calcium 20 Mg Tablet) 20 mg PO DAILY [facility] Last Admin: 03/16/24 09:28 Dose: 20 mg Bisacodyl (Bisacodyl 10 Mg Supp.Rect) 10 mg [place] DAILY PRN PRN Reason: Constipation Divalproex Sodium (Divalproex Sodium Sprinkles 125 Mg Camilo.) 250 mg PO TID [facility] Last Admin: 03/16/24 09:29 Dose: 250 mg Donepezil HCl (Donepezil Hcl 5 Mg Tablet) 5 mg PO BEDTIME [facility] Last Admin: 03/15/24 20:26 Dose: 5 mg Famotidine (Famotidine 20 Mg Tablet) 20 mg PO BEDTIME [facility] Last Admin: 03/15/24 20:26 Dose: 20 mg Hydroxyzine HCl (Hydroxyzine Hcl 25 Mg Tablet) 25 mg PO Q6H PRN PRN Reason: Anxiety Last Admin: 03/16/24 11:22 Dose: 25 mg Levothyroxine Sodium (Levothyroxine Sodium 75 Mcg Tablet) 75 mcg PO DAILY@0600 [facility] Last Admin: 03/16/24 05:21 Dose: 75 mcg Loratadine (Loratadine 10 Mg Tablet) 10 mg PO DAILY [facility] Last Admin: 03/16/24 09:29 Dose: 10 mg Lorazepam (Lorazepam 0.5 Mg Tablet) 0.5 mg PO BID PRN PRN Reason: severe agitation Last Admin: 03/15/24 13:53 Dose: 0.5 mg Magnesium Hydroxide (Milk Of Magnesia 30 Ml Oral.Susp) 30 ml PO DAILY PRN PRN Reason: Constipation Olanzapine (Olanzapine 2.5 Mg Tablet) 2.5 mg PO BID PRN PRN Reason: Agitation Last Admin: 03/15/24 13:53 Dose: 2.5 mg Olanzapine (Olanzapine 2.5 Mg Tablet) 2.5 mg PO BID [facility] Last Admin: 03/16/24 09:29 Dose: 2.5 mg Olanzapine (Olanzapine 10 Mg Tablet) 10 mg PO Q6H PRN PRN Reason: agitation Last Admin: 03/16/24 11:22 Dose: 10 mg Oxybutynin Chloride (Oxybutynin Chloride Er 5 Mg Tab.Er.24) 15 mg PO DAILY [facility] Last Admin: 03/16/24 09:28 Dose: 15 mg Trazodone HCl (Trazodone Hcl 50 Mg Tablet) 50 mg PO BEDTIME PRN PRN Reason: sleep Last Admin: 03/15/24 20:26 Dose: 50 mg Allergies Allergies Allergy/AdvReac Type Severity Reaction Status Date / Time sulfamethoxazole Allergy Unknown Verified 03/03/24 14:32 [From Sulfamethoxazole-Trimethoprim] trimethoprim Allergy Unknown Verified 03/03/24 14:32 [From Sulfamethoxazole-Trimethoprim] Assessment & Plan Assessment & Plan (1) Dementia: Status: Acute Code(s): F03.90 - Unspecified dementia, unspecified severity, without behavioral disturbance, psychotic disturbance, mood disturbance, and anxiety (2) Major neurocognitive disorder due to Alzheimer's disease, without behavioral disturbance: Status: Acute Code(s): G30.9 - Alzheimer's disease, unspecified; F02.80 - Dementia in other diseases classified elsewhere, unspecified severity, without behavioral disturbance, psychotic disturbance, mood disturbance, and anxiety Plan Elderly female with a past history of Alzheimer's, recently in a subacute rehab due to subdural hematoma referred for exacerbation of agitation. The patient is a very poor historian unable to provide any details still very agitated. Plan 1. continue tx. 2. Depakote level, CBC with differential and comprehensive metabolic panel for March 10 before breakfast. 3. Family meeting for disposition. Her daughter wants long-term care but her wants her back. Apparently her also is cognitively impaired. 4. CV signed by healthcare proxy, healthcare proxy invoked today. 5. UA on March 10. We are going to repeat UA in March 12. It the UA of the that was collected on the came up with leukocytosis, waiting for the culture. The previous culture of March 10 came back with vaginal ralph. Reason for continued inpatient stay Substantial Risk for: inability to function, rapid decompensation and med/psych decompensation Time Spent With Patient Time: Total time managing care of this patient today _20___ minutes.
[2024-03-16] MEDS: LORazepam 0.5 MG TABLET PO (19:06)
[2024-03-16 20:00] VITALS: BP 139/70; PULSE 80; TEMP 37.1; O2SAT 93
[2024-03-16] MEDS: Donepezil HCl 5 MG TABLET PO (20:13)
[2024-03-17] MEDS: Famotidine 20 MG TABLET PO ×2 (00:08→20:47)
[2024-03-17] MEDS: Levothyroxine Sodium 75 MCG TABLET PO (06:33)
[2024-03-17 08:00] VITALS: BP 120/60; PULSE 91; RESP 18; TEMP 36; O2SAT 96
[2024-03-17] MEDS: oxyBUTYnin chloride ER 5 MG TAB.ER.24 15 MG PO (08:14)
[2024-03-17] MEDS: Atorvastatin Calcium 20 MG TABLET PO (08:15)
[2024-03-17] MEDS: Loratadine 10 MG TABLET PO (08:15)
[2024-03-17] MEDS: Divalproex Sodium Sprinkles 125 MG CAP.DR.SPR 250 MG PO ×3 (08:15→20:47)
[2024-03-17] MEDS: OLANZapine 2.5 MG TABLET PO ×2 (08:15→20:47)
--- NOTE | 2024-03-17 11:06 | P.PNPSI_ITS ---
Subjective Subjective Date of Service: 03/17/24 Reason For Visit: combative behaviors Subjective Notes: Conditional Voluntary Interim History: The nursing staff reported the patient had been reactive, she tried to followed her who and he came to visit her exit seeking. She slept 6 hours. She remains grossly confused but redirectable. Very hard of hearing. Mental Status Exam Mental Status Exam Patient Appearance: Appropriate Patient Orientation: Person and Situation Level of Consciousness: Awake and Appropriate Patient Behavior: Guarded and Passive Mood Description: Withdrawn Affect Description: Constricted Patient Cognition Impaired: Yes Ability to Follow Directions: Good Speech Pattern: Clear Hallucinations: None Delusions: Ideas of Reference Thought Process: Distracted and Slowed Thinking Thought Content: positive for [place] and positive for Poverty of Content Judgement: Fair Diagnostics Vital Signs (24Hr): Vital Signs - 24 hr 03/16/24 20:00 Temperature 98.8 F Pulse Rate 80 Blood Pressure 139/70 Pulse Oximetry 93 Oxygen Delivery Method Room Air BMI result Body Mass Index 19.8 Labs 03/10/24 07:55 03/10/24 07:55 Medications Medications Current Medications Acetaminophen (Acetaminophen 325 Mg Tablet) 975 mg PO TID PRN PRN Reason: Fever Or Pain Last Admin: 03/10/24 23:28 Dose: 975 mg Al Hydroxide/Mg Hydroxide (Magnesium Hydrox/Alum Hydrox 30 Ml Oral.Susp) 30 ml PO Q6H PRN PRN Reason: Heartburn/Nausea Atorvastatin Calcium (Atorvastatin Calcium 20 Mg Tablet) 20 mg PO DAILY [facility] Last Admin: 03/17/24 08:15 Dose: 20 mg Bisacodyl (Bisacodyl 10 Mg Supp.Rect) 10 mg [place] DAILY PRN PRN Reason: Constipation Divalproex Sodium (Divalproex Sodium Sprinkles 125 Mg Cap.DrMaria FernandaSpr) 250 mg PO TID [facility] Last Admin: 03/17/24 08:15 Dose: 250 mg Donepezil HCl (Donepezil Hcl 5 Mg Tablet) 5 mg PO BEDTIME [facility] Last Admin: 03/16/24 20:13 Dose: 5 mg Famotidine (Famotidine 20 Mg Tablet) 20 mg PO BEDTIME [facility] Last Admin: 03/17/24 00:08 Dose: 20 mg Hydroxyzine HCl (Hydroxyzine Hcl 25 Mg Tablet) 25 mg PO Q6H PRN PRN Reason: Anxiety Last Admin: 03/16/24 20:12 Dose: 25 mg Levothyroxine Sodium (Levothyroxine Sodium 75 Mcg Tablet) 75 mcg PO DAILY@0600 [facility] Last Admin: 03/17/24 06:33 Dose: 75 mcg Loratadine (Loratadine 10 Mg Tablet) 10 mg PO DAILY [facility] Last Admin: 03/17/24 08:15 Dose: 10 mg Magnesium Hydroxide (Milk Of Magnesia 30 Ml Oral.Susp) 30 ml PO DAILY PRN PRN Reason: Constipation Olanzapine (Olanzapine 2.5 Mg Tablet) 2.5 mg PO BID PRN PRN Reason: Agitation Last Admin: 03/15/24 13:53 Dose: 2.5 mg Olanzapine (Olanzapine 2.5 Mg Tablet) 2.5 mg PO BID [facility] Last Admin: 03/17/24 08:15 Dose: 2.5 mg Olanzapine (Olanzapine 10 Mg Tablet) 10 mg PO Q6H PRN PRN Reason: agitation Last Admin: 03/16/24 20:12 Dose: 10 mg Oxybutynin Chloride (Oxybutynin Chloride Er 5 Mg Tab.Er.24) 15 mg PO DAILY [facility] Last Admin: 03/17/24 08:14 Dose: 15 mg Trazodone HCl (Trazodone Hcl 50 Mg Tablet) 50 mg PO BEDTIME PRN PRN Reason: sleep Last Admin: 03/15/24 20:26 Dose: 50 mg Allergies Allergies Allergy/AdvReac Type Severity Reaction Status Date / Time sulfamethoxazole Allergy Unknown Verified 03/03/24 14:32 [From Sulfamethoxazole-Trimethoprim] trimethoprim Allergy Unknown Verified 03/03/24 14:32 [From Sulfamethoxazole-Trimethoprim] Assessment & Plan Assessment & Plan (1) Dementia: Status: Acute Code(s): F03.90 - Unspecified dementia, unspecified severity, without behavioral disturbance, psychotic disturbance, mood disturbance, and anxiety (2) Major neurocognitive disorder due to Alzheimer's disease, without behavioral disturbance: Status: Acute Code(s): G30.9 - Alzheimer's disease, unspecified; F02.80 - Dementia in other diseases classified elsewhere, unspecified severity, without behavioral disturbance, psychotic disturbance, mood disturbance, and anxiety Plan Elderly female with a past history of Alzheimer's, recently in a subacute rehab due to subdural hematoma referred for exacerbation of agitation. The patient is a very poor historian unable to provide any details still very agitated. Plan 1. continue tx. 2. Depakote level, CBC with differential and comprehensive metabolic panel for March 10 before breakfast. 3. Family meeting for disposition. Her daughter wants long-term care but her wants her back. Apparently her also is cognitively impaired. 4. CV signed by healthcare proxy, healthcare proxy invoked today. 5. UA on March 10. We are going to repeat UA in March 12. It the UA of the 16 that was collected on the came up with leukocytosis, waiting for the culture. The previous culture of March 10 came back with vaginal ralph. Reason for continued inpatient stay Substantial Risk for: inability to function, rapid decompensation and med/psych decompensation Time Spent With Patient Time: Total time managing care of this patient today __20__ minutes.
[2024-03-17 20:00] VITALS: BP 124/60; PULSE 76; RESP 16; TEMP 36.1; O2SAT 97
[2024-03-17] MEDS: traZODone HCL 50 MG TABLET PO (20:47)
[2024-03-17] MEDS: Donepezil HCl 5 MG TABLET PO (20:47)
[2024-03-17] MEDS: hydrOXYzine HCL 25 MG TABLET PO (20:47)
[2024-03-18 07:55] VITALS: BP 117/60; PULSE 88; RESP 18; TEMP 36.6; O2SAT 95
[2024-03-18] MEDS: oxyBUTYnin chloride ER 5 MG TAB.ER.24 15 MG PO (08:15)
[2024-03-18] MEDS: OLANZapine 2.5 MG TABLET PO ×3 (08:15→22:40)
[2024-03-18] MEDS: Divalproex Sodium Sprinkles 125 MG CAP.DR.SPR 250 MG PO ×3 (08:15→20:56)
[2024-03-18] MEDS: Atorvastatin Calcium 20 MG TABLET PO (08:16)
[2024-03-18] MEDS: Loratadine 10 MG TABLET PO (08:16)
[2024-03-18] MEDS: OLANZapine 10 MG TABLET PO (12:47)
--- NOTE | 2024-03-18 14:36 | P.PNPSI_ITS ---
Subjective Subjective Date of Service: 03/18/24 Reason For Visit: combative behaviors Subjective Notes: Conditional Voluntary Interim History: The nursing staff reported the patient was confused redirectable. On interview the patient has poverty of content confused but redirectable. Waiting for placement. Mental Status Exam Mental Status Exam Patient Appearance: Appropriate Patient Orientation: Person and Situation Level of Consciousness: Awake and Appropriate Patient Behavior: Guarded and Passive Mood Description: Calm Affect Description: Labile Patient Cognition Impaired: Yes Ability to Follow Directions: Good Speech Pattern: Clear Hallucinations: None Delusions: Paranoid Ideation and Ideas of Reference Thought Process: Distracted and Slowed Thinking Thought Content: positive for [place] and positive for Poverty of Content Judgement: Fair Diagnostics Vital Signs (24Hr): Vital Signs - 24 hr 03/17/24 20:00 03/18/24 07:55 Temperature 97 F 97.9 F Pulse Rate 76 88 Respiratory Rate 16 18 Blood Pressure 124/60 117/60 Pulse Oximetry 97 95 Oxygen Delivery Method Room Air Room Air BMI result Body Mass Index 19.8 Labs 03/10/24 07:55 03/10/24 07:55 Medications Medications Current Medications Acetaminophen (Acetaminophen 325 Mg Tablet) 975 mg PO TID PRN PRN Reason: Fever Or Pain Last Admin: 03/10/24 23:28 Dose: 975 mg Al Hydroxide/Mg Hydroxide (Magnesium Hydrox/Alum Hydrox 30 Ml Oral.Susp) 30 ml PO Q6H PRN PRN Reason: Heartburn/Nausea Atorvastatin Calcium (Atorvastatin Calcium 20 Mg Tablet) 20 mg PO DAILY [facility] Last Admin: 03/18/24 08:16 Dose: 20 mg Bisacodyl (Bisacodyl 10 Mg Supp.Rect) 10 mg [place] DAILY PRN PRN Reason: Constipation Divalproex Sodium (Divalproex Sodium Sprinkles 125 Mg Cap.) 250 mg PO TID [facility] Last Admin: 03/18/24 08:15 Dose: 250 mg Donepezil HCl (Donepezil Hcl 5 Mg Tablet) 5 mg PO BEDTIME [facility] Last Admin: 03/17/24 20:47 Dose: 5 mg Famotidine (Famotidine 20 Mg Tablet) 20 mg PO BEDTIME [facility] Last Admin: 03/17/24 20:47 Dose: 20 mg Hydroxyzine HCl (Hydroxyzine Hcl 25 Mg Tablet) 25 mg PO Q6H PRN PRN Reason: Anxiety Last Admin: 03/17/24 20:47 Dose: 25 mg Levothyroxine Sodium (Levothyroxine Sodium 75 Mcg Tablet) 75 mcg PO DAILY@0600 [facility] Last Admin: 03/18/24 06:44 Dose: Not Given Loratadine (Loratadine 10 Mg Tablet) 10 mg PO DAILY [facility] Last Admin: 03/18/24 08:16 Dose: 10 mg Magnesium Hydroxide (Milk Of Magnesia 30 Ml Oral.Susp) 30 ml PO DAILY PRN PRN Reason: Constipation Olanzapine (Olanzapine 2.5 Mg Tablet) 2.5 mg PO BID PRN PRN Reason: Agitation Last Admin: 03/15/24 13:53 Dose: 2.5 mg Olanzapine (Olanzapine 2.5 Mg Tablet) 2.5 mg PO BID [facility] Last Admin: 03/18/24 08:15 Dose: 2.5 mg Olanzapine (Olanzapine 10 Mg Tablet) 10 mg PO Q6H PRN PRN Reason: agitation Last Admin: 03/18/24 12:47 Dose: 10 mg Oxybutynin Chloride (Oxybutynin Chloride Er 5 Mg Tab.Er.24) 15 mg PO DAILY [facility] Last Admin: 03/18/24 08:15 Dose: 15 mg Trazodone HCl (Trazodone Hcl 50 Mg Tablet) 50 mg PO BEDTIME PRN PRN Reason: sleep Last Admin: 03/17/24 20:47 Dose: 50 mg Allergies Allergies Allergy/AdvReac Type Severity Reaction Status Date / Time sulfamethoxazole Allergy Unknown Verified 03/03/24 14:32 [From Sulfamethoxazole-Trimethoprim] trimethoprim Allergy Unknown Verified 03/03/24 14:32 [From Sulfamethoxazole-Trimethoprim] Assessment & Plan Assessment & Plan (1) Dementia: Status: Acute Code(s): F03.90 - Unspecified dementia, unspecified severity, without behavioral disturbance, psychotic disturbance, mood disturbance, and anxiety (2) Major neurocognitive disorder due to Alzheimer's disease, without behavioral disturbance: Status: Acute Code(s): G30.9 - Alzheimer's disease, unspecified; F02.80 - Dementia in other diseases classified elsewhere, unspecified severity, without behavioral disturbance, psychotic disturbance, mood disturbance, and anxiety Plan Elderly female with a past history of Alzheimer's, recently in a subacute rehab due to subdural hematoma referred for exacerbation of agitation. The patient is a very poor historian unable to provide any details still very agitated. Plan 1. continue tx. 2. Depakote level, CBC with differential and comprehensive metabolic panel for March 10 before breakfast. 3. Family meeting for disposition. Her daughter wants long-term care but her wants her back. Apparently her also is cognitively impaired. 4. CV signed by healthcare proxy, healthcare proxy invoked today. 5. UA on March 10. We are going to repeat UA in March 12. It the UA of the 16 that was collected on the came up with leukocytosis, waiting for the culture. The previous culture of March 10 came back with vaginal ralph. Reason for continued inpatient stay Substantial Risk for: inability to function, rapid decompensation and med/psych decompensation Time Spent With Patient Time: Total time managing care of this patient today __20__ minutes.
[2024-03-18] MEDS: hydrOXYzine HCL 25 MG TABLET PO ×2 (15:41→22:40)
[2024-03-18 20:00] VITALS: BP 136/65; PULSE 67; RESP 16; TEMP 36.8
[2024-03-18] MEDS: Donepezil HCl 5 MG TABLET PO (20:57)
[2024-03-18] MEDS: traZODone HCL 50 MG TABLET PO (20:57)
[2024-03-18] MEDS: Famotidine 20 MG TABLET PO (20:57)
[2024-03-19] MEDS: Acetaminophen 325 MG TABLET 975 MG PO (00:03)
[2024-03-19] MEDS: Levothyroxine Sodium 75 MCG TABLET PO (06:43)
[2024-03-19 08:00] VITALS: BP 132/66; PULSE 68; RESP 18; TEMP 36.8; O2SAT 95
[2024-03-19] MEDS: Loratadine 10 MG TABLET PO (08:44)
[2024-03-19] MEDS: oxyBUTYnin chloride ER 5 MG TAB.ER.24 15 MG PO (08:44)
[2024-03-19] MEDS: OLANZapine 2.5 MG TABLET PO ×2 (08:46→20:07)
[2024-03-19] MEDS: Atorvastatin Calcium 20 MG TABLET PO (08:46)
[2024-03-19] MEDS: Divalproex Sodium Sprinkles 125 MG CAP.DR.SPR 250 MG PO ×3 (08:46→20:07)
[2024-03-19] MEDS: traZODone HCL 25 MG HALFTAB 12.5 MG PO ×2 (14:29→20:07)
--- NOTE | 2024-03-19 16:21 | HO.PSYCHPN ---
Subjective Subjective Date of Service: 03/19/24 Reason For Visit: combative behaviors Subjective Notes: Conditional Voluntary Healthcare Proxy: Yes Interim History: The nursing staff reported the patient had been impulsive, no changes in her mental status. On interview the patient remains confused asking for her . Mental Status Exam Mental Status Exam Patient Appearance: Appropriate Patient Orientation: Person Level of Consciousness: Awake Patient Behavior: Guarded Mood Description: Calm Affect Description: Labile Patient Cognition Impaired: Yes Ability to Follow Directions: Fair Speech Pattern: Impoverished Hallucinations: None Delusions: Not Present Thought Process: Distracted and Slowed Thinking Thought Content: positive for [place] and positive for Poverty of Content Judgement: Poor Diagnostics Vital Signs (24Hr): Vital Signs - 24 hr 03/18/24 20:00 03/19/24 08:00 Temperature 98.3 F 98.2 F Pulse Rate 67 68 Respiratory Rate 16 18 Blood Pressure 136/65 132/66 Pulse Oximetry 95 Oxygen Delivery Method Room Air BMI result Body Mass Index 19.8 Labs 03/10/24 07:55 03/10/24 07:55 Medications Medications Current Medications Acetaminophen (Acetaminophen 325 Mg Tablet) 975 mg PO TID PRN PRN Reason: Fever Or Pain Last Admin: 03/19/24 00:03 Dose: 975 mg Al Hydroxide/Mg Hydroxide (Magnesium Hydrox/Alum Hydrox 30 Ml Oral.Susp) 30 ml PO Q6H PRN PRN Reason: Heartburn/Nausea Atorvastatin Calcium (Atorvastatin Calcium 20 Mg Tablet) 20 mg PO DAILY [facility] Last Admin: 03/19/24 08:46 Dose: 20 mg Bisacodyl (Bisacodyl 10 Mg Supp.Rect) 10 mg [place] DAILY PRN PRN Reason: Constipation Divalproex Sodium (Divalproex Sodium Sprinkles 125 Mg Cap.Dr.Spr) 250 mg PO TID [facility] Last Admin: 03/19/24 14:29 Dose: 250 mg Donepezil HCl (Donepezil Hcl 5 Mg Tablet) 5 mg PO BEDTIME [facility] Last Admin: 03/18/24 20:57 Dose: 5 mg Famotidine (Famotidine 20 Mg Tablet) 20 mg PO BEDTIME [facility] Last Admin: 03/18/24 20:57 Dose: 20 mg Hydroxyzine HCl (Hydroxyzine Hcl 25 Mg Tablet) 25 mg PO Q6H PRN PRN Reason: Anxiety Last Admin: 03/18/24 22:40 Dose: 25 mg Levothyroxine Sodium (Levothyroxine Sodium 75 Mcg Tablet) 75 mcg PO DAILY@0600 [facility] Last Admin: 03/19/24 06:43 Dose: 75 mcg Loratadine (Loratadine 10 Mg Tablet) 10 mg PO DAILY [facility] Last Admin: 03/19/24 08:44 Dose: 10 mg Magnesium Hydroxide (Milk Of Magnesia 30 Ml Oral.Susp) 30 ml PO DAILY PRN PRN Reason: Constipation Olanzapine (Olanzapine 2.5 Mg Tablet) 2.5 mg PO BID PRN PRN Reason: Agitation Last Admin: 03/18/24 22:40 Dose: 2.5 mg Olanzapine (Olanzapine 2.5 Mg Tablet) 2.5 mg PO BID [facility] Last Admin: 03/19/24 08:46 Dose: 2.5 mg Olanzapine (Olanzapine 10 Mg Tablet) 10 mg PO Q6H PRN PRN Reason: agitation Last Admin: 03/18/24 12:47 Dose: 10 mg Oxybutynin Chloride (Oxybutynin Chloride Er 5 Mg Tab.Er.24) 15 mg PO DAILY [facility] Last Admin: 03/19/24 08:44 Dose: 15 mg Trazodone HCl (Trazodone Hcl 50 Mg Tablet) 50 mg PO BEDTIME PRN PRN Reason: sleep Last Admin: 03/18/24 20:57 Dose: 50 mg Trazodone HCl (Trazodone Hcl 25 Mg Halftab) 12.5 mg PO TID [facility] Last Admin: 03/19/24 14:29 Dose: 12.5 mg Allergies Allergies Allergy/AdvReac Type Severity Reaction Status Date / Time sulfamethoxazole Allergy Unknown Verified 03/03/24 14:32 [From Sulfamethoxazole-Trimethoprim] trimethoprim Allergy Unknown Verified 03/03/24 14:32 [From Sulfamethoxazole-Trimethoprim] Assessment & Plan Assessment & Plan (1) Dementia: Status: Acute Code(s): F03.90 - Unspecified dementia, unspecified severity, without behavioral disturbance, psychotic disturbance, mood disturbance, and anxiety (2) Major neurocognitive disorder due to Alzheimer's disease, without behavioral disturbance: Status: Acute Code(s): G30.9 - Alzheimer's disease, unspecified; F02.80 - Dementia in other diseases classified elsewhere, unspecified severity, without behavioral disturbance, psychotic disturbance, mood disturbance, and anxiety Plan Elderly female with a past history of Alzheimer's, recently in a subacute rehab due to subdural hematoma referred for exacerbation of agitation. The patient is a very poor historian unable to provide any details still very agitated. Plan 1. continue tx. 2. Depakote level, CBC with differential and comprehensive metabolic panel for March 10 before breakfast. 3. Family meeting for disposition. Her daughter wants long-term care but her wants her back. Apparently her also is cognitively impaired. 4. CV signed by healthcare proxy, healthcare proxy invoked today. 5. UA on March 10. We are going to repeat UA in March 12. It the UA of the that was collected on the came up with leukocytosis, waiting for the culture. The previous culture of March 10 came back with vaginal ralph. Reason for continued inpatient stay Substantial Risk for: inability to function, rapid decompensation and med/psych decompensation Time Spent With Patient Time: Total time managing care of this patient today __20__ minutes.
[2024-03-19] MEDS: OLANZapine 10 MG TABLET PO (16:27)
[2024-03-19] MEDS: LORazepam 1 MG TABLET 2 MG PO (16:50)
[2024-03-19] MEDS: chlorproMAZINE HCl 25 MG TABLET 50 MG PO (16:53)
--- NOTE | 2024-03-19 17:56 | PC.NURSE ---
1630 pt became combative, hitting, yelling and screaming at staff redirected multiple times with no effect. Zyprexa given with continued redirection and pt continued to escalate. Ativan 2mg and Thorazine 50 mg given with patient now redirectable lying in bed awake. Will continue to monitor for any behavioral concerns. continues on1:1 for safety
[2024-03-19 20:00] VITALS: RESP 16
[2024-03-19] MEDS: Donepezil HCl 5 MG TABLET PO (20:07)
[2024-03-19] MEDS: Famotidine 20 MG TABLET PO (20:07)
[2024-03-20] MEDS: Levothyroxine Sodium 75 MCG TABLET PO (06:09)
[2024-03-20 06:44] VITALS: BP 151/91; PULSE 71; RESP 16; TEMP 36.1; O2SAT 95
--- NOTE | 2024-03-20 06:48 | PM.EVENT ---
Event Note Date of Service: 03/20/24 Event Note: Rapid response team was activated because the patient sustained a witnessed fall. She fell after losing her balance in the bathroom while trying to use the toilet. Her sitter was present at the moment after fall. According to the sitter patient lost her balance, fell on the ground and slightly hit her head. No loss of consciousness was observed. Vital signs obtained and are unremarkable. On evaluation, patient was sitting in the toilet and Alert. Able to answer questions appropriately. She was able to stand up with assistance and able to walk using the walker without issues. She laid down in bed without any difficulty. Her head was atraumatic (no wounds or hematomas noted). No interventions required at this time other that continue fall precaution and close observation by sitter Time Spent With Patient Time: Total time managing care of this patient today ____ minutes.
--- NOTE | 2024-03-20 06:55 | PC.NURSE ---
Pt. lost balance in front of the patient observer while trying to situate the patient on toilet and fell hitting the back of head on the wall. Rapid Response called and Hospitalist assess the patient and order no intervention noted at this time. VS stable, Neuros intact. Pt got an superficial abrasion sl. bleeding on her L.5th finger cleansed and band aid applied. [ End ]
--- NOTE | 2024-03-20 07:24 | PC.NURSE ---
Placed a call to the daughter at around 0650am and leave a message to call back. Daughter called back at 07:20am and notified of the fall.
[2024-03-20 08:00] VITALS: BP 146/65; PULSE 52; RESP 16; TEMP 36.1; O2SAT 98
[2024-03-20] MEDS: oxyBUTYnin chloride ER 5 MG TAB.ER.24 15 MG PO (09:16)
[2024-03-20] MEDS: traZODone HCL 25 MG HALFTAB 12.5 MG PO ×3 (09:18→20:52)
[2024-03-20] MEDS: Divalproex Sodium Sprinkles 125 MG CAP.DR.SPR 250 MG PO ×3 (09:19→20:52)
[2024-03-20] MEDS: Atorvastatin Calcium 20 MG TABLET PO (09:20)
[2024-03-20] MEDS: OLANZapine 2.5 MG TABLET PO ×2 (09:20→20:53)
[2024-03-20] MEDS: Loratadine 10 MG TABLET PO (09:20)
--- NOTE | 2024-03-20 09:58 | HO.PSYCHPN ---
Subjective Subjective Date of Service: 03/20/24 Reason For Visit: combative behaviors Subjective Notes: Conditional Voluntary Healthcare Proxy: Yes Interim History: Pt had witnessed fall while going to the bathroom. She did not hit her head. No significant injury noted when assessed by hospitalist. She is ambulating as usual with walker. She constantly saying I want to go home, I want to go home. Impulsive especially when ambulating with walker. Medication Compliance: Yes Review of Systems Review of Systems Yes all other systems are reviewed and are negative and Unobtainable due to mental status Constitutional: Reports no additional constitutional complaints, Denies chills, Denies fever(s) and Denies night sweats Eyes: Reports no additional eye complaints, Denies blurry vision, Denies change in vision, Denies diplopia, Denies eye discharge, Denies loss of vision and Denies eye pain Denies dizziness Cardiovascular: Reports no additional cardiovascular complaints, Denies chest pain, Denies lightheadedness, Denies Loss of Consciousness and Denies dyspnea Respiratory: Reports no additional respiratory complaints and Denies dyspnea Gastrointestinal: Reports no additional gastrointestinal complaints, Denies abdominal pain, Denies melena, Denies hematochezia, Denies change in bowel habits and Denies change in stool character Musculoskeletal: Reports no additional musculoskeletal complaints, Denies numbness and Denies tingling Reports confusion (chronic for the patient - per her demented baseline), Denies dizziness, Denies loss of vision, Denies numbness and Denies tingling Psychiatric: Reports no additional psychiatric complaints and Reports confusion (chronic for the patient - per her demented baseline) Endocrine: Reports no additional endocrine complaints Hematologic/Lymphatic: Reports no additional hematologic/lymphatic complaints Allergic/Immunologic: Reports no additional allergic/immunologic complaints Mental Status Exam Mental Status Exam Narrative: Appearance: wearing hospital gown, poor hygiene, restless. [place] Behavior: irritable, asking to bring her home Psychomotor: some agitation noted Speech: mumbles, some difficulty enunciation, loud at times, spontaneous TP: goal oriented- wanting to go home. confabulation TC: wanting to go home Mood: okay Affect: irritable SI: none HI: none VH/AH: no overt signs Delusions: no overt delusional content reported but confabulates. Insight/judgment: impaired x 2 Memory/cog: alert, oriented only to self, not to place, month, year nor situation. Diagnostics Vital Signs (24Hr): Vital Signs - 24 hr 03/19/24 20:00 03/20/24 06:44 03/20/24 08:00 Temperature 96.9 F 97.0 F Pulse Rate 71 52 Respiratory Rate 16 16 16 Blood Pressure 151/91 H 146/65 H Pulse Oximetry 95 98 Oxygen Delivery Method Room Air BMI result Body Mass Index 19.8 Labs 03/10/24 07:55 03/10/24 07:55 Medications Medications Current Medications Acetaminophen (Acetaminophen 325 Mg Tablet) 975 mg PO TID PRN PRN Reason: Fever Or Pain Last Admin: 03/19/24 00:03 Dose: 975 mg Al Hydroxide/Mg Hydroxide (Magnesium Hydrox/Alum Hydrox 30 Ml Oral.Susp) 30 ml PO Q6H PRN PRN Reason: Heartburn/Nausea Atorvastatin Calcium (Atorvastatin Calcium 20 Mg Tablet) 20 mg PO DAILY [facility] Last Admin: 03/20/24 09:20 Dose: 20 mg Bisacodyl (Bisacodyl 10 Mg Supp.Rect) 10 mg [place] DAILY PRN PRN Reason: Constipation Divalproex Sodium (Divalproex Sodium Sprinkles 125 Mg Camilo.) 250 mg PO TID [facility] Last Admin: 03/20/24 09:19 Dose: 250 mg Donepezil HCl (Donepezil Hcl 5 Mg Tablet) 5 mg PO BEDTIME [facility] Last Admin: 03/19/24 20:07 Dose: 5 mg Famotidine (Famotidine 20 Mg Tablet) 20 mg PO BEDTIME [facility] Last Admin: 03/19/24 20:07 Dose: 20 mg Hydroxyzine HCl (Hydroxyzine Hcl 25 Mg Tablet) 25 mg PO Q6H PRN PRN Reason: Anxiety Last Admin: 03/18/24 22:40 Dose: 25 mg Levothyroxine Sodium (Levothyroxine Sodium 75 Mcg Tablet) 75 mcg PO DAILY@0600 [facility] Last Admin: 03/20/24 06:09 Dose: 75 mcg Loratadine (Loratadine 10 Mg Tablet) 10 mg PO DAILY [facility] Last Admin: 03/20/24 09:20 Dose: 10 mg Magnesium Hydroxide (Milk Of Magnesia 30 Ml Oral.Susp) 30 ml PO DAILY PRN PRN Reason: Constipation Olanzapine (Olanzapine 2.5 Mg Tablet) 2.5 mg PO BID PRN PRN Reason: Agitation Last Admin: 03/18/24 22:40 Dose: 2.5 mg Olanzapine (Olanzapine 2.5 Mg Tablet) 2.5 mg PO BID [facility] Last Admin: 03/20/24 09:20 Dose: 2.5 mg Olanzapine (Olanzapine 10 Mg Tablet) 10 mg PO Q6H PRN PRN Reason: agitation Last Admin: 03/19/24 16:27 Dose: 10 mg Oxybutynin Chloride (Oxybutynin Chloride Er 5 Mg Tab.Er.24) 15 mg PO DAILY [facility] Last Admin: 03/20/24 09:16 Dose: 15 mg Trazodone HCl (Trazodone Hcl 50 Mg Tablet) 50 mg PO BEDTIME PRN PRN Reason: sleep Last Admin: 03/18/24 20:57 Dose: 50 mg Trazodone HCl (Trazodone Hcl 25 Mg Halftab) 12.5 mg PO TID [facility] Last Admin: 03/20/24 09:18 Dose: 12.5 mg Allergies Allergies Allergy/AdvReac Type Severity Reaction Status Date / Time sulfamethoxazole Allergy Unknown Verified 03/03/24 14:32 [From Sulfamethoxazole-Trimethoprim] trimethoprim Allergy Unknown Verified 03/03/24 14:32 [From Sulfamethoxazole-Trimethoprim] Assessment & Plan Assessment & Plan (1) Dementia: Status: Acute Code(s): F03.90 - Unspecified dementia, unspecified severity, without behavioral disturbance, psychotic disturbance, mood disturbance, and anxiety (2) Major neurocognitive disorder due to Alzheimer's disease, without behavioral disturbance: Status: Acute Code(s): G30.9 - Alzheimer's disease, unspecified; F02.80 - Dementia in other diseases classified elsewhere, unspecified severity, without behavioral disturbance, psychotic disturbance, mood disturbance, and anxiety Plan Elderly female with a past history of Alzheimer's, recently in a subacute rehab due to subdural hematoma referred for exacerbation of agitation. The patient is a very poor historian unable to provide any details still very agitated. Plan 03/20 continue tx. will check ammonia and depakote level on 03/22/24 at 7am. Reason for continued inpatient stay Substantial Risk for: inability to function Time Spent With Patient Time: Total time managing care of this patient today ____ minutes.
[2024-03-20] MEDS: hydrOXYzine HCL 25 MG TABLET PO ×2 (12:58→20:52)
[2024-03-20] MEDS: OLANZapine 10 MG TABLET PO (17:53)
[2024-03-20 20:00] VITALS: BP 140/82; PULSE 62; TEMP 36.6; O2SAT 94
[2024-03-20] MEDS: Famotidine 20 MG TABLET PO (20:52)
[2024-03-20] MEDS: Donepezil HCl 5 MG TABLET PO (20:52)
[2024-03-21] MEDS: Levothyroxine Sodium 75 MCG TABLET PO (05:23)
[2024-03-21 09:32] VITALS: BP 112/62; PULSE 67; RESP 16; TEMP 36.2; O2SAT 97
[2024-03-21] MEDS: Divalproex Sodium Sprinkles 125 MG CAP.DR.SPR 250 MG PO ×3 (09:37→20:48)
[2024-03-21] MEDS: oxyBUTYnin chloride ER 5 MG TAB.ER.24 15 MG PO (09:37)
[2024-03-21] MEDS: Loratadine 10 MG TABLET PO (09:37)
[2024-03-21] MEDS: OLANZapine 2.5 MG TABLET PO ×2 (09:38→20:48)
[2024-03-21] MEDS: Atorvastatin Calcium 20 MG TABLET PO (09:38)
[2024-03-21] MEDS: traZODone HCL 25 MG HALFTAB 12.5 MG PO ×3 (09:38→20:48)
--- NOTE | 2024-03-21 10:31 | P.PNPSI_ITS ---
Subjective Subjective Date of Service: 03/21/24 Reason For Visit: combative behaviors Interim History: Remains on 1:1 for fall risk. Disoriented and confused. Hard of hearing. Some irritability with the 1:1 jetting machine operator. Responds to PRN's. She is ambulating as usual with walker. Review of Systems Review of Systems Yes all other systems are reviewed and are negative and Unobtainable due to mental status Constitutional: Reports no additional constitutional complaints, Denies chills, Denies fever(s) and Denies night sweats Eyes: Reports no additional eye complaints, Denies blurry vision, Denies change in vision, Denies diplopia, Denies eye discharge, Denies loss of vision and Denies eye pain Denies dizziness Cardiovascular: Reports no additional cardiovascular complaints, Denies chest pain, Denies lightheadedness, Denies Loss of Consciousness and Denies dyspnea Respiratory: Reports no additional respiratory complaints and Denies dyspnea Gastrointestinal: Reports no additional gastrointestinal complaints, Denies abdominal pain, Denies melena, Denies hematochezia, Denies change in bowel habits and Denies change in stool character Musculoskeletal: Reports no additional musculoskeletal complaints, Denies numbness and Denies tingling Reports confusion (chronic for the patient - per her demented baseline), Denies dizziness, Denies loss of vision, Denies numbness and Denies tingling Psychiatric: Reports no additional psychiatric complaints and Reports confusion (chronic for the patient - per her demented baseline) Endocrine: Reports no additional endocrine complaints Hematologic/Lymphatic: Reports no additional hematologic/lymphatic complaints Allergic/Immunologic: Reports no additional allergic/immunologic complaints Mental Status Exam Mental Status Exam Narrative: Appearance: wearing hospital gown, poor hygiene, restless. [place] [place] Behavior: irritable, asking to bring her home Psychomotor: some agitation noted Speech: mumbles, some difficulty enunciation, loud at times, spontaneous TP: goal oriented- wanting to go home. confabulation TC: wanting to go home Mood: okay Affect: irritable SI: none HI: none VH/AH: no overt signs Delusions: no overt delusional content reported but confabulates. Insight/judgment: impaired x 2 Memory/cog: alert, oriented only to self, not to place, month, year nor situation. Patient Appearance: Appropriate Patient Orientation: Person Level of Consciousness: Awake Patient Behavior: Guarded Mood Description: Calm Affect Description: Labile Patient Cognition Impaired: Yes Ability to Follow Directions: Fair Speech Pattern: Impoverished Diagnostics Vital Signs (24Hr): Vital Signs - 24 hr 03/20/24 20:00 03/21/24 09:32 Temperature 97.8 F 97.1 F Pulse Rate 62 67 Respiratory Rate 16 Blood Pressure 140/82 H 112/62 Pulse Oximetry 94 97 Oxygen Delivery Method Room Air Room Air BMI result Body Mass Index 19.8 Labs 03/10/24 07:55 03/10/24 07:55 Medications Medications Current Medications Acetaminophen (Acetaminophen 325 Mg Tablet) 975 mg PO TID PRN PRN Reason: Fever Or Pain Last Admin: 03/19/24 00:03 Dose: 975 mg Al Hydroxide/Mg Hydroxide (Magnesium Hydrox/Alum Hydrox 30 Ml Oral.Susp) 30 ml PO Q6H PRN PRN Reason: Heartburn/Nausea Atorvastatin Calcium (Atorvastatin Calcium 20 Mg Tablet) 20 mg PO DAILY [facility] Last Admin: 03/21/24 09:38 Dose: 20 mg Bisacodyl (Bisacodyl 10 Mg Supp.Rect) 10 mg [place] DAILY PRN PRN Reason: Constipation Divalproex Sodium (Divalproex Sodium Sprinkles 125 Mg Cap.Spr) 250 mg PO TID [facility] Last Admin: 03/21/24 09:37 Dose: 250 mg Donepezil HCl (Donepezil Hcl 5 Mg Tablet) 5 mg PO BEDTIME [facility] Last Admin: 03/20/24 20:52 Dose: 5 mg Famotidine (Famotidine 20 Mg Tablet) 20 mg PO BEDTIME [facility] Last Admin: 03/20/24 20:52 Dose: 20 mg Hydroxyzine HCl (Hydroxyzine Hcl 25 Mg Tablet) 25 mg PO Q6H PRN PRN Reason: Anxiety Last Admin: 03/20/24 20:52 Dose: 25 mg Levothyroxine Sodium (Levothyroxine Sodium 75 Mcg Tablet) 75 mcg PO DAILY@0600 [facility] Last Admin: 03/21/24 05:23 Dose: 75 mcg Loratadine (Loratadine 10 Mg Tablet) 10 mg PO DAILY [facility] Last Admin: 03/21/24 09:37 Dose: 10 mg Lorazepam (Lorazepam 0.5 Mg Tablet) 0.5 mg PO BID PRN PRN Reason: Anxiety Magnesium Hydroxide (Milk Of Magnesia 30 Ml Oral.Susp) 30 ml PO DAILY PRN PRN Reason: Constipation Olanzapine (Olanzapine 2.5 Mg Tablet) 2.5 mg PO BID [facility] Last Admin: 03/21/24 09:38 Dose: 2.5 mg Olanzapine (Olanzapine 10 Mg Tablet) 10 mg PO Q6H PRN PRN Reason: agitation Last Admin: 03/20/24 17:53 Dose: 10 mg Oxybutynin Chloride (Oxybutynin Chloride Er 5 Mg Tab.Er.24) 15 mg PO DAILY [facility] Last Admin: 03/21/24 09:37 Dose: 15 mg Trazodone HCl (Trazodone Hcl 50 Mg Tablet) 50 mg PO BEDTIME PRN PRN Reason: sleep Last Admin: 03/18/24 20:57 Dose: 50 mg Trazodone HCl (Trazodone Hcl 25 Mg Halftab) 12.5 mg PO TID [facility] Last Admin: 03/21/24 09:38 Dose: 12.5 mg Allergies Allergies Allergy/AdvReac Type Severity Reaction Status Date / Time sulfamethoxazole Allergy Unknown Verified 03/03/24 14:32 [From Sulfamethoxazole-Trimethoprim] trimethoprim Allergy Unknown Verified 03/03/24 14:32 [From Sulfamethoxazole-Trimethoprim] Assessment & Plan Assessment & Plan (1) Dementia: Status: Acute Code(s): F03.90 - Unspecified dementia, unspecified severity, without behavioral disturbance, psychotic disturbance, mood disturbance, and anxiety (2) Major neurocognitive disorder due to Alzheimer's disease, without behavioral disturbance: Status: Acute Code(s): G30.9 - Alzheimer's disease, unspecified; F02.80 - Dementia in other diseases classified elsewhere, unspecified severity, without behavioral disturbance, psychotic disturbance, mood disturbance, and anxiety Plan Elderly female with a past history of Alzheimer's, recently in a subacute rehab due to subdural hematoma referred for exacerbation of agitation. The patient is a very poor historian unable to provide any details still very agitated. Plan 03/20 continue tx. will check ammonia and depakote level on 03/22/24 at 7am. 03/21: continue current management and treatment plan. check labs tomorrow. Reason for continued inpatient stay Substantial Risk for: inability to function, rapid decompensation and med/psych decompensation Time Spent With Patient Time: Total time managing care of this patient today ____ minutes.
[2024-03-21] MEDS: OLANZapine 10 MG TABLET PO (14:33)
[2024-03-21] MEDS: hydrOXYzine HCL 25 MG TABLET PO (14:33)
[2024-03-21 20:00] VITALS: BP 122/61; PULSE 71; TEMP 36; O2SAT 97
[2024-03-21] MEDS: Donepezil HCl 5 MG TABLET PO (20:49)
[2024-03-21] MEDS: Famotidine 20 MG TABLET PO (20:49)
[2024-03-22] MEDS: Levothyroxine Sodium 75 MCG TABLET PO (06:41)
[2024-03-22 09:45] VITALS: BP 164/69; PULSE 83; RESP 18; TEMP 36.7; O2SAT 97
[2024-03-22] MEDS: Divalproex Sodium Sprinkles 125 MG CAP.DR.SPR 250 MG PO ×3 (09:47→20:52)
[2024-03-22] MEDS: Atorvastatin Calcium 20 MG TABLET PO (09:47)
[2024-03-22] MEDS: LORazepam 0.5 MG TABLET PO (09:47)
[2024-03-22] MEDS: Loratadine 10 MG TABLET PO (09:47)
[2024-03-22] MEDS: traZODone HCL 25 MG HALFTAB 12.5 MG PO ×3 (09:47→20:52)
[2024-03-22] MEDS: oxyBUTYnin chloride ER 5 MG TAB.ER.24 15 MG PO (09:47)
[2024-03-22] MEDS: OLANZapine 2.5 MG TABLET PO ×2 (09:48→20:52)
--- NOTE | 2024-03-22 10:20 | P.PNPSI_ITS ---
Subjective Subjective Date of Service: 03/22/24 Reason For Visit: combative behaviors Interim History: Remains on 1:1 for fall risk. Disoriented and confused. Was agitated earlier and received PRN Ativan with some benefit. Hard of hearing. Some irritability with the 1:1 outside sales manager. Responds to PRN's. She is ambulating as usual with walker. Review of Systems Review of Systems Yes all other systems are reviewed and are negative and Unobtainable due to mental status Constitutional: Reports no additional constitutional complaints, Denies chills, Denies fever(s) and Denies night sweats Eyes: Reports no additional eye complaints, Denies blurry vision, Denies change in vision, Denies diplopia, Denies eye discharge, Denies loss of vision and Denies eye pain Denies dizziness Cardiovascular: Reports no additional cardiovascular complaints, Denies chest pain, Denies lightheadedness, Denies Loss of Consciousness and Denies dyspnea Respiratory: Reports no additional respiratory complaints and Denies dyspnea Gastrointestinal: Reports no additional gastrointestinal complaints, Denies abdominal pain, Denies melena, Denies hematochezia, Denies change in bowel habits and Denies change in stool character Musculoskeletal: Reports no additional musculoskeletal complaints, Denies numbness and Denies tingling Reports confusion (chronic for the patient - per her demented baseline), Denies dizziness, Denies loss of vision, Denies numbness and Denies tingling Psychiatric: Reports no additional psychiatric complaints and Reports confusion (chronic for the patient - per her demented baseline) Endocrine: Reports no additional endocrine complaints Hematologic/Lymphatic: Reports no additional hematologic/lymphatic complaints Allergic/Immunologic: Reports no additional allergic/immunologic complaints Mental Status Exam Mental Status Exam Narrative: Appearance: wearing hospital gown, poor hygiene, restless. [place] [place] Behavior: irritable, asking to bring her home Psychomotor: some agitation noted Speech: mumbles, some difficulty enunciation, loud at times, spontaneous TP: goal oriented- wanting to go home. confabulation TC: wanting to go home Mood: okay Affect: irritable SI: none HI: none VH/AH: no overt signs Delusions: no overt delusional content reported but confabulates. Insight/judgment: impaired x 2 Memory/cog: alert, oriented only to self, not to place, month, year nor situation. Patient Appearance: Appropriate Patient Orientation: Person Level of Consciousness: Awake Patient Behavior: Guarded Mood Description: Calm Affect Description: Labile Patient Cognition Impaired: Yes Ability to Follow Directions: Fair Speech Pattern: Impoverished Diagnostics Vital Signs (24Hr): Vital Signs - 24 hr 03/21/24 20:00 03/22/24 09:45 Temperature 96.8 F 98.1 F Pulse Rate 71 83 Respiratory Rate 18 Blood Pressure 122/61 164/69 H Pulse Oximetry 97 97 Oxygen Delivery Method Room Air Room Air BMI result Body Mass Index 19.8 Labs 03/10/24 07:55 03/10/24 07:55 Medications Medications Current Medications Acetaminophen (Acetaminophen 325 Mg Tablet) 975 mg PO TID PRN PRN Reason: Fever Or Pain Last Admin: 03/19/24 00:03 Dose: 975 mg Al Hydroxide/Mg Hydroxide (Magnesium Hydrox/Alum Hydrox 30 Ml Oral.Susp) 30 ml PO Q6H PRN PRN Reason: Heartburn/Nausea Atorvastatin Calcium (Atorvastatin Calcium 20 Mg Tablet) 20 mg PO DAILY [facility] Last Admin: 03/22/24 09:47 Dose: 20 mg Bisacodyl (Bisacodyl 10 Mg Supp.Rect) 10 mg [place] DAILY PRN PRN Reason: Constipation Divalproex Sodium (Divalproex Sodium Sprinkles 125 Mg Camilo.) 250 mg PO TID [facility] Last Admin: 03/22/24 09:47 Dose: 250 mg Donepezil HCl (Donepezil Hcl 5 Mg Tablet) 5 mg PO BEDTIME [facility] Last Admin: 03/21/24 20:49 Dose: 5 mg Famotidine (Famotidine 20 Mg Tablet) 20 mg PO BEDTIME [facility] Last Admin: 03/21/24 20:49 Dose: 20 mg Hydroxyzine HCl (Hydroxyzine Hcl 25 Mg Tablet) 25 mg PO Q6H PRN PRN Reason: Anxiety Last Admin: 03/21/24 14:33 Dose: 25 mg Levothyroxine Sodium (Levothyroxine Sodium 75 Mcg Tablet) 75 mcg PO DAILY@0600 [facility] Last Admin: 03/22/24 06:41 Dose: 75 mcg Loratadine (Loratadine 10 Mg Tablet) 10 mg PO DAILY [facility] Last Admin: 03/22/24 09:47 Dose: 10 mg Lorazepam (Lorazepam 0.5 Mg Tablet) 0.5 mg PO BID PRN PRN Reason: Anxiety Last Admin: 03/22/24 09:47 Dose: 0.5 mg Magnesium Hydroxide (Milk Of Magnesia 30 Ml Oral.Susp) 30 ml PO DAILY PRN PRN Reason: Constipation Olanzapine (Olanzapine 2.5 Mg Tablet) 2.5 mg PO BID [facility] Last Admin: 03/22/24 09:48 Dose: 2.5 mg Olanzapine (Olanzapine 10 Mg Tablet) 10 mg PO Q6H PRN PRN Reason: agitation Last Admin: 03/21/24 14:33 Dose: 10 mg Oxybutynin Chloride (Oxybutynin Chloride Er 5 Mg Tab.Er.24) 15 mg PO DAILY [facility] Last Admin: 03/22/24 09:47 Dose: 15 mg Trazodone HCl (Trazodone Hcl 50 Mg Tablet) 50 mg PO BEDTIME PRN PRN Reason: sleep Last Admin: 03/18/24 20:57 Dose: 50 mg Trazodone HCl (Trazodone Hcl 25 Mg Halftab) 12.5 mg PO TID [facility] Last Admin: 03/22/24 09:47 Dose: 12.5 mg Allergies Allergies Allergy/AdvReac Type Severity Reaction Status Date / Time sulfamethoxazole Allergy Unknown Verified 03/03/24 14:32 [From Sulfamethoxazole-Trimethoprim] trimethoprim Allergy Unknown Verified 03/03/24 14:32 [From Sulfamethoxazole-Trimethoprim] Assessment & Plan Assessment & Plan (1) Dementia: Status: Acute Code(s): F03.90 - Unspecified dementia, unspecified severity, without behavioral disturbance, psychotic disturbance, mood disturbance, and anxiety (2) Major neurocognitive disorder due to Alzheimer's disease, without behavioral disturbance: Status: Acute Code(s): G30.9 - Alzheimer's disease, unspecified; F02.80 - Dementia in other diseases classified elsewhere, unspecified severity, without behavioral disturbance, psychotic disturbance, mood disturbance, and anxiety Plan Elderly female with a past history of Alzheimer's, recently in a subacute rehab due to subdural hematoma referred for exacerbation of agitation. The patient is a very poor historian unable to provide any details still very agitated. Plan 03/20 continue tx. will check ammonia and depakote level on 03/22/24 at 7am. 03/21: continue current management and treatment plan. check labs tomorrow. 03/22: Continue current management and treatment plan. Check Depakote level and ammonia on 03/23. Reason for continued inpatient stay Substantial Risk for: inability to function, rapid decompensation and med/psych decompensation Time Spent With Patient Time: Total time managing care of this patient today ____ minutes.
[2024-03-22 20:00] VITALS: BP 137/84; PULSE 92; TEMP 36.6; O2SAT 94
[2024-03-22] MEDS: Famotidine 20 MG TABLET PO (20:52)
[2024-03-22] MEDS: Donepezil HCl 5 MG TABLET PO (20:52)
[2024-03-23] MEDS: Levothyroxine Sodium 75 MCG TABLET PO (07:09)
[2024-03-23 08:26] LABS: Ammonia 44 umol/L (13-55)
[2024-03-23 09:32] VITALS: BP 133/68; PULSE 88; RESP 18; TEMP 35.8; O2SAT 100
[2024-03-23 09:42] LABS: Valproate 73.5 mcg/mL (50.0-100.0)
[2024-03-23] MEDS: Divalproex Sodium Sprinkles 125 MG CAP.DR.SPR 250 MG PO ×3 (09:46→21:15)
[2024-03-23] MEDS: Atorvastatin Calcium 20 MG TABLET PO (09:47)
[2024-03-23] MEDS: OLANZapine 2.5 MG TABLET PO ×2 (09:47→21:15)
[2024-03-23] MEDS: Loratadine 10 MG TABLET PO (09:49)
[2024-03-23] MEDS: oxyBUTYnin chloride ER 5 MG TAB.ER.24 15 MG PO (09:57)
[2024-03-23] MEDS: traZODone HCL 25 MG HALFTAB PO ×3 (10:02→21:15)
--- NOTE | 2024-03-23 10:13 | HO.PSYCHPN ---
Subjective Subjective Date of Service: 03/23/24 Reason For Visit: combative behaviors Subjective Notes: Conditional Voluntary Interim History: The nursing staff reported the patient had been perseverative confused redirectable. Very anxious no improvement or over-sedation with trazodone 12.5 p.o. t.i.d.. On interview the patient is pleasantly confused, we are increasing trazodone up to 25 p.o. t.i.d.. Mental Status Exam Mental Status Exam Patient Appearance: Appropriate Patient Orientation: Person Level of Consciousness: Awake Patient Behavior: Guarded and Passive Mood Description: Withdrawn Affect Description: Constricted Patient Cognition Impaired: Yes Ability to Follow Directions: Good Speech Pattern: Clear Hallucinations: None Delusions: Paranoid Ideation and Ideas of Reference Thought Process: Distracted and Slowed Thinking Thought Content: positive for [place] and positive for Poverty of Content Judgement: Fair Diagnostics Vital Signs (24Hr): Vital Signs - 24 hr 03/22/24 20:00 03/23/24 09:32 Temperature 97.8 F 96.5 F L Pulse Rate 92 88 Respiratory Rate 18 Blood Pressure 137/84 133/68 Pulse Oximetry 94 100 Oxygen Delivery Method Room Air Room Air BMI result Body Mass Index 19.8 Labs 03/10/24 07:55 03/10/24 07:55 Labs: Laboratory Results - last 48 hr 03/23/24 07:54 Ammonia 44 Valproic Acid 73.5 Medications Medications Current Medications Acetaminophen (Acetaminophen 325 Mg Tablet) 975 mg PO TID PRN PRN Reason: Fever Or Pain Last Admin: 03/19/24 00:03 Dose: 975 mg Al Hydroxide/Mg Hydroxide (Magnesium Hydrox/Alum Hydrox 30 Ml Oral.Susp) 30 ml PO Q6H PRN PRN Reason: Heartburn/Nausea Atorvastatin Calcium (Atorvastatin Calcium 20 Mg Tablet) 20 mg PO DAILY [facility] Last Admin: 03/23/24 09:47 Dose: 20 mg Bisacodyl (Bisacodyl 10 Mg Supp.Rect) 10 mg [place] DAILY PRN PRN Reason: Constipation Divalproex Sodium (Divalproex Sodium Sprinkles 125 Mg Cap.) 250 mg PO TID [facility] Last Admin: 03/23/24 09:46 Dose: 250 mg Donepezil HCl (Donepezil Hcl 5 Mg Tablet) 5 mg PO BEDTIME [facility] Last Admin: 03/22/24 20:52 Dose: 5 mg Famotidine (Famotidine 20 Mg Tablet) 20 mg PO BEDTIME [facility] Last Admin: 03/22/24 20:52 Dose: 20 mg Hydroxyzine HCl (Hydroxyzine Hcl 25 Mg Tablet) 25 mg PO Q6H PRN PRN Reason: Anxiety Last Admin: 03/21/24 14:33 Dose: 25 mg Levothyroxine Sodium (Levothyroxine Sodium 75 Mcg Tablet) 75 mcg PO DAILY@0600 [facility] Last Admin: 03/23/24 07:09 Dose: 75 mcg Loratadine (Loratadine 10 Mg Tablet) 10 mg PO DAILY [facility] Last Admin: 03/23/24 09:49 Dose: 10 mg Lorazepam (Lorazepam 0.5 Mg Tablet) 0.5 mg PO BID PRN PRN Reason: Anxiety Last Admin: 03/22/24 09:47 Dose: 0.5 mg Magnesium Hydroxide (Milk Of Magnesia 30 Ml Oral.Susp) 30 ml PO DAILY PRN PRN Reason: Constipation Olanzapine (Olanzapine 2.5 Mg Tablet) 2.5 mg PO BID [facility] Last Admin: 03/23/24 09:47 Dose: 2.5 mg Olanzapine (Olanzapine 10 Mg Tablet) 10 mg PO Q6H PRN PRN Reason: agitation Last Admin: 03/21/24 14:33 Dose: 10 mg Oxybutynin Chloride (Oxybutynin Chloride Er 5 Mg Tab.Er.24) 15 mg PO DAILY [facility] Last Admin: 03/23/24 09:57 Dose: 15 mg Trazodone HCl (Trazodone Hcl 50 Mg Tablet) 50 mg PO BEDTIME PRN PRN Reason: sleep Last Admin: 03/18/24 20:57 Dose: 50 mg Trazodone HCl (Trazodone Hcl 25 Mg Halftab) 25 mg PO TID [facility] Allergies Allergies Allergy/AdvReac Type Severity Reaction Status Date / Time sulfamethoxazole Allergy Unknown Verified 03/03/24 14:32 [From Sulfamethoxazole-Trimethoprim] trimethoprim Allergy Unknown Verified 03/03/24 14:32 [From Sulfamethoxazole-Trimethoprim] Assessment & Plan Assessment & Plan (1) Dementia: Status: Acute Code(s): F03.90 - Unspecified dementia, unspecified severity, without behavioral disturbance, psychotic disturbance, mood disturbance, and anxiety (2) Major neurocognitive disorder due to Alzheimer's disease, without behavioral disturbance: Status: Acute Code(s): G30.9 - Alzheimer's disease, unspecified; F02.80 - Dementia in other diseases classified elsewhere, unspecified severity, without behavioral disturbance, psychotic disturbance, mood disturbance, and anxiety Plan Elderly female with a past history of Alzheimer's, recently in a subacute rehab due to subdural hematoma referred for exacerbation of agitation. The patient is a very poor historian unable to provide any details still very agitated. Plan 03/20 continue tx. will check ammonia and depakote level on 03/22/24 at 7am. 03/21: continue current management and treatment plan. check labs tomorrow. 03/22: Continue current management and treatment plan. Check Depakote level and ammonia on 03/23. 03/23 increase trazodone up to 25 p.o. t.i.d. to target anxiety. Reason for continued inpatient stay Substantial Risk for: inability to function, rapid decompensation and med/psych decompensation Time Spent With Patient Time: Total time managing care of this patient today __20__ minutes.
[2024-03-23] MEDS: LORazepam 0.5 MG TABLET PO (17:47)
[2024-03-23 20:00] VITALS: BP 142/83; PULSE 100; RESP 16; TEMP 36.1; O2SAT 96
[2024-03-23] MEDS: Acetaminophen 325 MG TABLET 975 MG PO (21:15)
[2024-03-23] MEDS: Donepezil HCl 5 MG TABLET PO (21:15)
[2024-03-23] MEDS: hydrOXYzine HCL 25 MG TABLET PO (21:15)
[2024-03-23] MEDS: Famotidine 20 MG TABLET PO (21:15)
[2024-03-24 11:35] VITALS: BP 138/77; PULSE 107; RESP 18; TEMP 36.3; O2SAT 98
[2024-03-24] MEDS: oxyBUTYnin chloride ER 5 MG TAB.ER.24 15 MG PO (11:37)
[2024-03-24] MEDS: Divalproex Sodium Sprinkles 125 MG CAP.DR.SPR 250 MG PO ×3 (11:38→20:07)
[2024-03-24] MEDS: traZODone HCL 25 MG HALFTAB PO ×3 (11:39→20:07)
[2024-03-24] MEDS: Atorvastatin Calcium 20 MG TABLET PO (11:40)
[2024-03-24] MEDS: Loratadine 10 MG TABLET PO (11:40)
[2024-03-24] MEDS: Levothyroxine Sodium 75 MCG TABLET PO (11:40)
[2024-03-24] MEDS: OLANZapine 2.5 MG TABLET PO ×2 (11:40→20:07)
--- NOTE | 2024-03-24 12:07 | HO.PSYCHPN ---
Subjective Subjective Date of Service: 03/24/24 Reason For Visit: combative behaviors Subjective Notes: Conditional Voluntary Interim History: The nursing staff reported the patient had been compliant with treatment, confused. On interview the patient remains confused but redirectable. No over-sedation with increase of trazodone. Mental Status Exam Mental Status Exam Patient Appearance: Appropriate Patient Orientation: Person and Situation Level of Consciousness: Awake and Appropriate Patient Behavior: Guarded and Passive Mood Description: Withdrawn Affect Description: Constricted Patient Cognition Impaired: Yes Ability to Follow Directions: Good Speech Pattern: Clear Hallucinations: None Delusions: Ideas of Reference Thought Process: Distracted and Slowed Thinking Thought Content: positive for [place] and positive for Poverty of Content Judgement: Fair Diagnostics Vital Signs (24Hr): Vital Signs - 24 hr 03/23/24 20:00 03/24/24 11:35 Temperature 97 F 97.3 F Pulse Rate 100 107 H Respiratory Rate 16 18 Blood Pressure 142/83 H 138/77 Pulse Oximetry 96 98 Oxygen Delivery Method Room Air Room Air BMI result Body Mass Index 19.8 Labs 03/10/24 07:55 03/10/24 07:55 Labs: Laboratory Results - last 48 hr 03/23/24 07:54 Ammonia 44 Valproic Acid 73.5 Medications Medications Current Medications Acetaminophen (Acetaminophen 325 Mg Tablet) 975 mg PO TID PRN PRN Reason: Fever Or Pain Last Admin: 03/23/24 21:15 Dose: 975 mg Al Hydroxide/Mg Hydroxide (Magnesium Hydrox/Alum Hydrox 30 Ml Oral.Susp) 30 ml PO Q6H PRN PRN Reason: Heartburn/Nausea Atorvastatin Calcium (Atorvastatin Calcium 20 Mg Tablet) 20 mg PO DAILY [facility] Last Admin: 03/24/24 11:40 Dose: 20 mg Bisacodyl (Bisacodyl 10 Mg Supp.Rect) 10 mg [place] DAILY PRN PRN Reason: Constipation Divalproex Sodium (Divalproex Sodium Sprinkles 125 Mg Camilo.Spr) 250 mg PO TID [facility] Last Admin: 03/24/24 11:38 Dose: 250 mg Donepezil HCl (Donepezil Hcl 5 Mg Tablet) 5 mg PO BEDTIME [facility] Last Admin: 03/23/24 21:15 Dose: 5 mg Famotidine (Famotidine 20 Mg Tablet) 20 mg PO BEDTIME [facility] Last Admin: 03/23/24 21:15 Dose: 20 mg Hydroxyzine HCl (Hydroxyzine Hcl 25 Mg Tablet) 25 mg PO Q6H PRN PRN Reason: Anxiety Last Admin: 03/23/24 21:15 Dose: 25 mg Levothyroxine Sodium (Levothyroxine Sodium 75 Mcg Tablet) 75 mcg PO DAILY@0600 [facility] Last Admin: 03/24/24 11:40 Dose: 75 mcg Loratadine (Loratadine 10 Mg Tablet) 10 mg PO DAILY [facility] Last Admin: 03/24/24 11:40 Dose: 10 mg Lorazepam (Lorazepam 0.5 Mg Tablet) 0.5 mg PO BID PRN PRN Reason: Anxiety Last Admin: 03/23/24 17:47 Dose: 0.5 mg Magnesium Hydroxide (Milk Of Magnesia 30 Ml Oral.Susp) 30 ml PO DAILY PRN PRN Reason: Constipation Olanzapine (Olanzapine 2.5 Mg Tablet) 2.5 mg PO BID [facility] Last Admin: 03/24/24 11:40 Dose: 2.5 mg Olanzapine (Olanzapine 10 Mg Tablet) 10 mg PO Q6H PRN PRN Reason: agitation Last Admin: 03/21/24 14:33 Dose: 10 mg Oxybutynin Chloride (Oxybutynin Chloride Er 5 Mg Tab.Er.24) 15 mg PO DAILY [facility] Last Admin: 03/24/24 11:37 Dose: 15 mg Trazodone HCl (Trazodone Hcl 50 Mg Tablet) 50 mg PO BEDTIME PRN PRN Reason: sleep Last Admin: 03/18/24 20:57 Dose: 50 mg Trazodone HCl (Trazodone Hcl 25 Mg Halftab) 25 mg PO TID [facility] Last Admin: 03/24/24 11:39 Dose: 25 mg Allergies Allergies Allergy/AdvReac Type Severity Reaction Status Date / Time sulfamethoxazole Allergy Unknown Verified 03/03/24 14:32 [From Sulfamethoxazole-Trimethoprim] trimethoprim Allergy Unknown Verified 03/03/24 14:32 [From Sulfamethoxazole-Trimethoprim] Assessment & Plan Assessment & Plan (1) Dementia: Status: Acute Code(s): F03.90 - Unspecified dementia, unspecified severity, without behavioral disturbance, psychotic disturbance, mood disturbance, and anxiety (2) Major neurocognitive disorder due to Alzheimer's disease, without behavioral disturbance: Status: Acute Code(s): G30.9 - Alzheimer's disease, unspecified; F02.80 - Dementia in other diseases classified elsewhere, unspecified severity, without behavioral disturbance, psychotic disturbance, mood disturbance, and anxiety Plan Elderly female with a past history of Alzheimer's, recently in a subacute rehab due to subdural hematoma referred for exacerbation of agitation. The patient is a very poor historian unable to provide any details still very agitated. Plan 03/20 continue tx. will check ammonia and depakote level on 03/22/24 at 7am. 03/21: continue current management and treatment plan. check labs tomorrow. 03/22: Continue current management and treatment plan. Check Depakote level and ammonia on 03/23. 03/23 increase trazodone up to 25 p.o. t.i.d. to target anxiety. 03/24 keep same treatment Reason for continued inpatient stay Substantial Risk for: inability to function, rapid decompensation and med/psych decompensation Time Spent With Patient Time: Total time managing care of this patient today __20__ minutes.
[2024-03-24 20:00] VITALS: BP 153/68; PULSE 80; RESP 16; TEMP 36.9; O2SAT 98
[2024-03-24] MEDS: Famotidine 20 MG TABLET PO (20:07)
[2024-03-24] MEDS: Donepezil HCl 5 MG TABLET PO (20:07)
[2024-03-24] MEDS: hydrOXYzine HCL 25 MG TABLET PO (20:08)
[2024-03-25 08:00] VITALS: BP 129/84; PULSE 89; RESP 18; TEMP 36.2; O2SAT 97
[2024-03-25] MEDS: oxyBUTYnin chloride ER 5 MG TAB.ER.24 15 MG PO (09:21)
[2024-03-25] MEDS: OLANZapine 2.5 MG TABLET PO ×2 (09:23→20:31)
[2024-03-25] MEDS: Levothyroxine Sodium 75 MCG TABLET PO (09:23)
[2024-03-25] MEDS: Atorvastatin Calcium 20 MG TABLET PO (09:23)
[2024-03-25] MEDS: Loratadine 10 MG TABLET PO (09:23)
[2024-03-25] MEDS: traZODone HCL 25 MG HALFTAB PO ×3 (09:23→20:31)
[2024-03-25] MEDS: Divalproex Sodium Sprinkles 125 MG CAP.DR.SPR 250 MG PO ×3 (09:24→20:30)
--- NOTE | 2024-03-25 15:40 | HO.PSYCHPN ---
Subjective Subjective Date of Service: 03/25/24 Reason For Visit: combative behaviors Subjective Notes: Conditional Voluntary Interim History: The nursing staff reported the patient had been compliant with treatment, perseverative no changes in her mental status. On interview the patient is pleasantly confused. Mental Status Exam Mental Status Exam Patient Appearance: Appropriate Patient Orientation: Person and Situation Level of Consciousness: Awake Patient Behavior: Guarded and Passive Mood Description: Withdrawn Affect Description: Constricted Patient Cognition Impaired: Yes Ability to Follow Directions: Good Speech Pattern: Clear Hallucinations: None Delusions: Ideas of Reference Thought Process: Distracted and Slowed Thinking Thought Content: positive for [place] and positive for Poverty of Content Judgement: Poor Diagnostics Vital Signs (24Hr): Vital Signs - 24 hr 03/24/24 20:00 03/25/24 08:00 Temperature 98.4 F 97.1 F Pulse Rate 80 89 Respiratory Rate 16 18 Blood Pressure 153/68 H 129/84 Pulse Oximetry 98 97 Oxygen Delivery Method Room Air Room Air BMI result Body Mass Index 19.8 Labs 03/10/24 07:55 03/10/24 07:55 Medications Medications Current Medications Acetaminophen (Acetaminophen 325 Mg Tablet) 975 mg PO TID PRN PRN Reason: Fever Or Pain Last Admin: 03/23/24 21:15 Dose: 975 mg Al Hydroxide/Mg Hydroxide (Magnesium Hydrox/Alum Hydrox 30 Ml Oral.Susp) 30 ml PO Q6H PRN PRN Reason: Heartburn/Nausea Atorvastatin Calcium (Atorvastatin Calcium 20 Mg Tablet) 20 mg PO DAILY [facility] Last Admin: 03/25/24 09:23 Dose: 20 mg Bisacodyl (Bisacodyl 10 Mg Supp.Rect) 10 mg [place] DAILY PRN PRN Reason: Constipation Divalproex Sodium (Divalproex Sodium Sprinkles 125 Mg Camilo.) 250 mg PO TID [facility] Last Admin: 03/25/24 09:24 Dose: 250 mg Donepezil HCl (Donepezil Hcl 5 Mg Tablet) 5 mg PO BEDTIME [facility] Last Admin: 03/24/24 20:07 Dose: 5 mg Famotidine (Famotidine 20 Mg Tablet) 20 mg PO BEDTIME [facility] Last Admin: 03/24/24 20:07 Dose: 20 mg Hydroxyzine HCl (Hydroxyzine Hcl 25 Mg Tablet) 25 mg PO Q6H PRN PRN Reason: Anxiety Last Admin: 03/24/24 20:08 Dose: 25 mg Levothyroxine Sodium (Levothyroxine Sodium 75 Mcg Tablet) 75 mcg PO DAILY@0600 [facility] Last Admin: 03/25/24 09:23 Dose: 75 mcg Loratadine (Loratadine 10 Mg Tablet) 10 mg PO DAILY [facility] Last Admin: 03/25/24 09:23 Dose: 10 mg Lorazepam (Lorazepam 0.5 Mg Tablet) 0.5 mg PO BID PRN PRN Reason: Anxiety Last Admin: 03/23/24 17:47 Dose: 0.5 mg Magnesium Hydroxide (Milk Of Magnesia 30 Ml Oral.Susp) 30 ml PO DAILY PRN PRN Reason: Constipation Olanzapine (Olanzapine 2.5 Mg Tablet) 2.5 mg PO BID [facility] Last Admin: 03/25/24 09:23 Dose: 2.5 mg Olanzapine (Olanzapine 10 Mg Tablet) 10 mg PO Q6H PRN PRN Reason: agitation Last Admin: 03/21/24 14:33 Dose: 10 mg Oxybutynin Chloride (Oxybutynin Chloride Er 5 Mg Tab.Er.24) 15 mg PO DAILY [facility] Last Admin: 03/25/24 09:21 Dose: 15 mg Trazodone HCl (Trazodone Hcl 50 Mg Tablet) 50 mg PO BEDTIME PRN PRN Reason: sleep Last Admin: 03/18/24 20:57 Dose: 50 mg Trazodone HCl (Trazodone Hcl 25 Mg Halftab) 25 mg PO TID [facility] Last Admin: 03/25/24 09:23 Dose: 25 mg Allergies Allergies Allergy/AdvReac Type Severity Reaction Status Date / Time sulfamethoxazole Allergy Unknown Verified 03/03/24 14:32 [From Sulfamethoxazole-Trimethoprim] trimethoprim Allergy Unknown Verified 03/03/24 14:32 [From Sulfamethoxazole-Trimethoprim] Assessment & Plan Assessment & Plan (1) Dementia: Status: Acute Code(s): F03.90 - Unspecified dementia, unspecified severity, without behavioral disturbance, psychotic disturbance, mood disturbance, and anxiety (2) Major neurocognitive disorder due to Alzheimer's disease, without behavioral disturbance: Status: Acute Code(s): G30.9 - Alzheimer's disease, unspecified; F02.80 - Dementia in other diseases classified elsewhere, unspecified severity, without behavioral disturbance, psychotic disturbance, mood disturbance, and anxiety Plan Elderly female with a past history of Alzheimer's, recently in a subacute rehab due to subdural hematoma referred for exacerbation of agitation. The patient is a very poor historian unable to provide any details still very agitated. Plan 03/20 continue tx. will check ammonia and depakote level on 03/22/24 at 7am. 03/21: continue current management and treatment plan. check labs tomorrow. 03/22: Continue current management and treatment plan. Check Depakote level and ammonia on 03/23. 03/23 increase trazodone up to 25 p.o. t.i.d. to target anxiety. 03/24 keep same treatment. 03/25 keep same treatment Reason for continued inpatient stay Substantial Risk for: inability to function, rapid decompensation and med/psych decompensation Time Spent With Patient Time: Total time managing care of this patient today __20__ minutes.
[2024-03-25] MEDS: LORazepam 0.5 MG TABLET PO (17:06)
[2024-03-25 20:00] VITALS: BP 125/68; PULSE 85; RESP 18; TEMP 36.6; O2SAT 96
[2024-03-25] MEDS: hydrOXYzine HCL 25 MG TABLET PO (20:30)
[2024-03-25] MEDS: Famotidine 20 MG TABLET PO (20:30)
[2024-03-25] MEDS: traZODone HCL 50 MG TABLET PO (20:30)
[2024-03-25] MEDS: Donepezil HCl 5 MG TABLET PO (20:31)
[2024-03-26] MEDS: Levothyroxine Sodium 75 MCG TABLET PO (06:19)
[2024-03-26 07:00] VITALS: BMI 19.5
[2024-03-26 10:30] VITALS: BP 153/85; PULSE 77; RESP 16; TEMP 36.3; O2SAT 98
[2024-03-26] MEDS: oxyBUTYnin chloride ER 5 MG TAB.ER.24 15 MG PO (10:30)
[2024-03-26] MEDS: Atorvastatin Calcium 20 MG TABLET PO (10:31)
[2024-03-26] MEDS: Divalproex Sodium Sprinkles 125 MG CAP.DR.SPR 250 MG PO ×2 (10:31→20:47)
[2024-03-26] MEDS: OLANZapine 2.5 MG TABLET PO ×2 (10:31→20:47)
[2024-03-26] MEDS: Loratadine 10 MG TABLET PO (10:31)
[2024-03-26] MEDS: traZODone HCL 25 MG HALFTAB PO ×2 (10:32→20:47)
--- NOTE | 2024-03-26 16:31 | HO.PSYCHPN ---
Subjective Subjective Date of Service: 03/26/24 Reason For Visit: combative behaviors Subjective Notes: Conditional Voluntary Interim History: The nursing staff reported no changes in her mental status. In the evening, the staff reported the patient was sexually inappropriate with her one-to-one sitter male. On interview the patient is pleasantly confused. Mental Status Exam Mental Status Exam Patient Appearance: Appropriate Patient Orientation: Person Level of Consciousness: Awake Patient Behavior: Guarded and Passive Mood Description: Withdrawn Affect Description: Constricted Patient Cognition Impaired: Yes Ability to Follow Directions: Fair Speech Pattern: Clear Hallucinations: None Delusions: Ideas of Reference Thought Process: Distracted and Slowed Thinking Thought Content: positive for [place] and positive for Poverty of Content Judgement: Fair Diagnostics Vital Signs (24Hr): Vital Signs - 24 hr 03/25/24 20:00 03/26/24 10:30 Temperature 97.8 F 97.4 F Pulse Rate 85 77 Respiratory Rate 18 16 Blood Pressure 125/68 153/85 H Pulse Oximetry 96 98 Oxygen Delivery Method Room Air BMI result Body Mass Index 19.5 Labs 03/10/24 07:55 03/10/24 07:55 Medications Medications Current Medications Acetaminophen (Acetaminophen 325 Mg Tablet) 975 mg PO TID PRN PRN Reason: Fever Or Pain Last Admin: 03/23/24 21:15 Dose: 975 mg Al Hydroxide/Mg Hydroxide (Magnesium Hydrox/Alum Hydrox 30 Ml Oral.Susp) 30 ml PO Q6H PRN PRN Reason: Heartburn/Nausea Atorvastatin Calcium (Atorvastatin Calcium 20 Mg Tablet) 20 mg PO DAILY [facility] Last Admin: 03/26/24 10:31 Dose: 20 mg Bisacodyl (Bisacodyl 10 Mg Supp.Rect) 10 mg [place] DAILY PRN PRN Reason: Constipation Divalproex Sodium (Divalproex Sodium Sprinkles 125 Mg Cap.Spr) 250 mg PO TID [facility] Last Admin: 03/26/24 10:31 Dose: 250 mg Donepezil HCl (Donepezil Hcl 5 Mg Tablet) 5 mg PO BEDTIME [facility] Last Admin: 03/25/24 20:31 Dose: 5 mg Famotidine (Famotidine 20 Mg Tablet) 20 mg PO BEDTIME [facility] Last Admin: 03/25/24 20:30 Dose: 20 mg Hydroxyzine HCl (Hydroxyzine Hcl 25 Mg Tablet) 25 mg PO Q6H PRN PRN Reason: Anxiety Last Admin: 03/25/24 20:30 Dose: 25 mg Levothyroxine Sodium (Levothyroxine Sodium 75 Mcg Tablet) 75 mcg PO DAILY@0600 [facility] Last Admin: 03/26/24 06:19 Dose: 75 mcg Loratadine (Loratadine 10 Mg Tablet) 10 mg PO DAILY [facility] Last Admin: 03/26/24 10:31 Dose: 10 mg Lorazepam (Lorazepam 0.5 Mg Tablet) 0.5 mg PO BID PRN PRN Reason: Anxiety Last Admin: 03/25/24 17:06 Dose: 0.5 mg Magnesium Hydroxide (Milk Of Magnesia 30 Ml Oral.Susp) 30 ml PO DAILY PRN PRN Reason: Constipation Olanzapine (Olanzapine 2.5 Mg Tablet) 2.5 mg PO BID [facility] Last Admin: 03/26/24 10:31 Dose: 2.5 mg Olanzapine (Olanzapine 10 Mg Tablet) 10 mg PO Q6H PRN PRN Reason: agitation Last Admin: 03/21/24 14:33 Dose: 10 mg Oxybutynin Chloride (Oxybutynin Chloride Er 5 Mg Tab.Er.24) 15 mg PO DAILY [facility] Last Admin: 03/26/24 10:30 Dose: 15 mg Trazodone HCl (Trazodone Hcl 50 Mg Tablet) 50 mg PO BEDTIME PRN PRN Reason: sleep Last Admin: 03/25/24 20:30 Dose: 50 mg Trazodone HCl (Trazodone Hcl 25 Mg Halftab) 25 mg PO TID [facility] Last Admin: 03/26/24 10:32 Dose: 25 mg Allergies Allergies Allergy/AdvReac Type Severity Reaction Status Date / Time sulfamethoxazole Allergy Unknown Verified 03/03/24 14:32 [From Sulfamethoxazole-Trimethoprim] trimethoprim Allergy Unknown Verified 03/03/24 14:32 [From Sulfamethoxazole-Trimethoprim] Assessment & Plan Assessment & Plan (1) Dementia: Status: Acute Code(s): F03.90 - Unspecified dementia, unspecified severity, without behavioral disturbance, psychotic disturbance, mood disturbance, and anxiety (2) Major neurocognitive disorder due to Alzheimer's disease, without behavioral disturbance: Status: Acute Code(s): G30.9 - Alzheimer's disease, unspecified; F02.80 - Dementia in other diseases classified elsewhere, unspecified severity, without behavioral disturbance, psychotic disturbance, mood disturbance, and anxiety Plan Elderly female with a past history of Alzheimer's, recently in a subacute rehab due to subdural hematoma referred for exacerbation of agitation. The patient is a very poor historian unable to provide any details still very agitated. Plan 03/20 continue tx. will check ammonia and depakote level on 03/22/24 at 7am. 03/21: continue current management and treatment plan. check labs tomorrow. 03/22: Continue current management and treatment plan. Check Depakote level and ammonia on 03/23. 03/23 increase trazodone up to 25 p.o. t.i.d. to target anxiety. 03/24 keep same treatment. 03/25 keep same treatment 03/26 keep same treatment Reason for continued inpatient stay Substantial Risk for: inability to function, rapid decompensation and med/psych decompensation Time Spent With Patient Time: Total time managing care of this patient today __30__ minutes.
[2024-03-26 20:00] VITALS: BP 116/71; PULSE 83; RESP 16; TEMP 36.1; O2SAT 98
[2024-03-26] MEDS: Donepezil HCl 5 MG TABLET PO (20:47)
[2024-03-26] MEDS: Famotidine 20 MG TABLET PO (20:47)
[2024-03-27] MEDS: Levothyroxine Sodium 75 MCG TABLET PO (06:06)
[2024-03-27 08:38] VITALS: BP 123/56; PULSE 61; RESP 14; TEMP 36.3; O2SAT 96
[2024-03-27] MEDS: oxyBUTYnin chloride ER 5 MG TAB.ER.24 15 MG PO (08:39)
[2024-03-27] MEDS: Divalproex Sodium Sprinkles 125 MG CAP.DR.SPR 250 MG PO ×3 (08:40→20:30)
[2024-03-27] MEDS: Atorvastatin Calcium 20 MG TABLET PO (08:41)
[2024-03-27] MEDS: Loratadine 10 MG TABLET PO (08:41)
[2024-03-27] MEDS: traZODone HCL 25 MG HALFTAB PO (08:41)
[2024-03-27] MEDS: OLANZapine 2.5 MG TABLET PO ×2 (08:41→20:31)
--- NOTE | 2024-03-27 14:20 | P.PNPSI_ITS ---
Subjective Subjective Date of Service: 03/27/24 Reason For Visit: combative behaviors Subjective Notes: Conditional Voluntary Interim History: The nursing staff reported the patient had being over-sedated but more redirectable. On interview the patient denies new symptoms confused easily redirectable. We are going to lower trazodone to 12.5 p.o. t.i.d. Mental Status Exam Mental Status Exam Patient Appearance: Appropriate Patient Orientation: Person Level of Consciousness: Awake Patient Behavior: Guarded and Passive Mood Description: Withdrawn Affect Description: Constricted Patient Cognition Impaired: Yes Ability to Follow Directions: Good Speech Pattern: Impoverished Hallucinations: None Delusions: Ideas of Reference Thought Process: Distracted Judgement: Poor Diagnostics Vital Signs (24Hr): Vital Signs - 24 hr 03/26/24 20:00 03/27/24 08:38 Temperature 96.9 F 97.3 F Pulse Rate 83 61 Respiratory Rate 16 14 Blood Pressure 116/71 123/56 L Pulse Oximetry 98 96 Oxygen Delivery Method Room Air Room Air BMI result Body Mass Index 19.5 Labs 03/10/24 07:55 03/10/24 07:55 Medications Medications Current Medications Acetaminophen (Acetaminophen 325 Mg Tablet) 975 mg PO TID PRN PRN Reason: Fever Or Pain Last Admin: 03/23/24 21:15 Dose: 975 mg Al Hydroxide/Mg Hydroxide (Magnesium Hydrox/Alum Hydrox 30 Ml Oral.Susp) 30 ml PO Q6H PRN PRN Reason: Heartburn/Nausea Atorvastatin Calcium (Atorvastatin Calcium 20 Mg Tablet) 20 mg PO DAILY [facility] Last Admin: 03/27/24 08:41 Dose: 20 mg Bisacodyl (Bisacodyl 10 Mg Supp.Rect) 10 mg [place] DAILY PRN PRN Reason: Constipation Divalproex Sodium (Divalproex Sodium Sprinkles 125 Mg Cap.DrMaria FernandaSpr) 250 mg PO TID [facility] Last Admin: 03/27/24 08:40 Dose: 250 mg Donepezil HCl (Donepezil Hcl 5 Mg Tablet) 5 mg PO BEDTIME [facility] Last Admin: 03/26/24 20:47 Dose: 5 mg Famotidine (Famotidine 20 Mg Tablet) 20 mg PO BEDTIME [facility] Last Admin: 03/26/24 20:47 Dose: 20 mg Hydroxyzine HCl (Hydroxyzine Hcl 25 Mg Tablet) 25 mg PO Q6H PRN PRN Reason: Anxiety Last Admin: 03/25/24 20:30 Dose: 25 mg Levothyroxine Sodium (Levothyroxine Sodium 75 Mcg Tablet) 75 mcg PO DAILY@0600 [facility] Last Admin: 03/27/24 06:06 Dose: 75 mcg Loratadine (Loratadine 10 Mg Tablet) 10 mg PO DAILY [facility] Last Admin: 03/27/24 08:41 Dose: 10 mg Lorazepam (Lorazepam 0.5 Mg Tablet) 0.5 mg PO BID PRN PRN Reason: Anxiety Last Admin: 03/25/24 17:06 Dose: 0.5 mg Magnesium Hydroxide (Milk Of Magnesia 30 Ml Oral.Susp) 30 ml PO DAILY PRN PRN Reason: Constipation Olanzapine (Olanzapine 2.5 Mg Tablet) 2.5 mg PO BID [facility] Last Admin: 03/27/24 08:41 Dose: 2.5 mg Olanzapine (Olanzapine 10 Mg Tablet) 10 mg PO Q6H PRN PRN Reason: agitation Last Admin: 03/21/24 14:33 Dose: 10 mg Oxybutynin Chloride (Oxybutynin Chloride Er 5 Mg Tab.Er.24) 15 mg PO DAILY [facility] Last Admin: 03/27/24 08:39 Dose: 15 mg Trazodone HCl (Trazodone Hcl 50 Mg Tablet) 50 mg PO BEDTIME PRN PRN Reason: sleep Last Admin: 03/25/24 20:30 Dose: 50 mg Trazodone HCl (Trazodone Hcl 25 Mg Halftab) 12.5 mg PO TID [facility] Allergies Allergies Allergy/AdvReac Type Severity Reaction Status Date / Time sulfamethoxazole Allergy Unknown Verified 03/03/24 14:32 [From Sulfamethoxazole-Trimethoprim] trimethoprim Allergy Unknown Verified 03/03/24 14:32 [From Sulfamethoxazole-Trimethoprim] Assessment & Plan Assessment & Plan (1) Dementia: Status: Acute Code(s): F03.90 - Unspecified dementia, unspecified severity, without behavioral disturbance, psychotic disturbance, mood disturbance, and anxiety (2) Major neurocognitive disorder due to Alzheimer's disease, without behavioral disturbance: Status: Acute Code(s): G30.9 - Alzheimer's disease, unspecified; F02.80 - Dementia in other diseases classified elsewhere, unspecified severity, without behavioral disturbance, psychotic disturbance, mood disturbance, and anxiety Plan Elderly female with a past history of Alzheimer's, recently in a subacute rehab due to subdural hematoma referred for exacerbation of agitation. The patient is a very poor historian unable to provide any details still very agitated. Plan 03/20 continue tx. will check ammonia and depakote level on 03/22/24 at 7am. 03/21: continue current management and treatment plan. check labs tomorrow. 03/22: Continue current management and treatment plan. Check Depakote level and ammonia on 03/23. 03/23 increase trazodone up to 25 p.o. t.i.d. to target anxiety. 03/24 keep same treatment. 03/25 keep same treatment 03/26 keep same treatment 03/27 trazodone will be lowered to 12.5 p.o. t.i.d. Reason for continued inpatient stay Substantial Risk for: inability to function, rapid decompensation and med/psych decompensation Time Spent With Patient Time: Total time managing care of this patient today __20__ minutes.
[2024-03-27] MEDS: traZODone HCL 25 MG HALFTAB 12.5 MG PO ×2 (14:59→20:31)
[2024-03-27 19:21] VITALS: BP 122/66; PULSE 93; TEMP 36.5; O2SAT 95
[2024-03-27] MEDS: Donepezil HCl 5 MG TABLET PO (20:31)
[2024-03-27] MEDS: Famotidine 20 MG TABLET PO (20:31)
[2024-03-28] MEDS: bisacodyL 10 MG SUPP.RECT PR (00:13)
--- NOTE | 2024-03-28 00:19 | PC.NURSE ---
Patient up to BR several times so far this shift. Patient is constipated and straining to defecate. MOM given on previous shift not documented. Dulcolax suppository given with pending results.
[2024-03-28] MEDS: Levothyroxine Sodium 75 MCG TABLET PO (06:19)
[2024-03-28 08:00] VITALS: BP 102/64; PULSE 76; RESP 16; TEMP 36.8; O2SAT 94
[2024-03-28] MEDS: traZODone HCL 25 MG HALFTAB 12.5 MG PO ×3 (08:29→20:28)
[2024-03-28] MEDS: oxyBUTYnin chloride ER 5 MG TAB.ER.24 15 MG PO (08:29)
[2024-03-28] MEDS: Atorvastatin Calcium 20 MG TABLET PO (08:29)
[2024-03-28] MEDS: OLANZapine 2.5 MG TABLET PO ×2 (08:30→20:28)
[2024-03-28] MEDS: Divalproex Sodium Sprinkles 125 MG CAP.DR.SPR 250 MG PO ×3 (08:30→20:28)
[2024-03-28] MEDS: Loratadine 10 MG TABLET PO (08:30)
--- NOTE | 2024-03-28 19:07 | P.PNPSI_ITS ---
Subjective Subjective Date of Service: 03/28/24 Reason For Visit: combative behaviors Subjective Notes: Conditional Voluntary Interim History: Patient with some periods of impulsivity intrusiveness. Continues to require one-to-one for intrusiveness. Patient generally not engaged Attending Groups: No Mental Status Exam Mental Status Exam Patient Appearance: Appropriate Patient Orientation: Person Level of Consciousness: Awake Patient Behavior: Guarded and Passive Mood Description: Withdrawn Affect Description: Constricted Patient Cognition Impaired: Yes Ability to Follow Directions: Good Speech Pattern: Impoverished Hallucinations: None Delusions: Ideas of Reference Thought Process: Distracted Judgement: Poor Judgement and Insight: Patient generally internally preoccupied was not verbal with this keno writer/runner Diagnostics Vital Signs (24Hr): Vital Signs - 24 hr 03/27/24 19:21 03/28/24 08:00 Temperature 97.7 F 98.3 F Pulse Rate 93 76 Respiratory Rate 16 Blood Pressure 122/66 102/64 Pulse Oximetry 95 94 Oxygen Delivery Method Room Air Room Air BMI result Body Mass Index 19.5 Labs 03/10/24 07:55 03/10/24 07:55 Medications Medications Current Medications Acetaminophen (Acetaminophen 325 Mg Tablet) 975 mg PO TID PRN PRN Reason: Fever Or Pain Last Admin: 03/23/24 21:15 Dose: 975 mg Al Hydroxide/Mg Hydroxide (Magnesium Hydrox/Alum Hydrox 30 Ml Oral.Susp) 30 ml PO Q6H PRN PRN Reason: Heartburn/Nausea Atorvastatin Calcium (Atorvastatin Calcium 20 Mg Tablet) 20 mg PO DAILY [facility] Last Admin: 03/28/24 08:29 Dose: 20 mg Bisacodyl (Bisacodyl 10 Mg Supp.Rect) 10 mg [place] DAILY PRN PRN Reason: Constipation Last Admin: 03/28/24 00:13 Dose: 10 mg Divalproex Sodium (Divalproex Sodium Sprinkles 125 Mg Cap.) 250 mg PO TID [facility] Last Admin: 03/28/24 15:17 Dose: 250 mg Donepezil HCl (Donepezil Hcl 5 Mg Tablet) 5 mg PO BEDTIME [facility] Last Admin: 03/27/24 20:31 Dose: 5 mg Famotidine (Famotidine 20 Mg Tablet) 20 mg PO BEDTIME [facility] Last Admin: 03/27/24 20:31 Dose: 20 mg Hydroxyzine HCl (Hydroxyzine Hcl 25 Mg Tablet) 25 mg PO Q6H PRN PRN Reason: Anxiety Last Admin: 03/25/24 20:30 Dose: 25 mg Levothyroxine Sodium (Levothyroxine Sodium 75 Mcg Tablet) 75 mcg PO DAILY@0600 [facility] Last Admin: 03/28/24 06:19 Dose: 75 mcg Loratadine (Loratadine 10 Mg Tablet) 10 mg PO DAILY [facility] Last Admin: 03/28/24 08:30 Dose: 10 mg Lorazepam (Lorazepam 0.5 Mg Tablet) 0.5 mg PO BID PRN PRN Reason: Anxiety Last Admin: 03/25/24 17:06 Dose: 0.5 mg Magnesium Hydroxide (Milk Of Magnesia 30 Ml Oral.Susp) 30 ml PO DAILY PRN PRN Reason: Constipation Olanzapine (Olanzapine 2.5 Mg Tablet) 2.5 mg PO BID [facility] Last Admin: 03/28/24 08:30 Dose: 2.5 mg Olanzapine (Olanzapine 10 Mg Tablet) 10 mg PO Q6H PRN PRN Reason: agitation Last Admin: 03/21/24 14:33 Dose: 10 mg Oxybutynin Chloride (Oxybutynin Chloride Er 5 Mg Tab.Er.24) 15 mg PO DAILY [facility] Last Admin: 03/28/24 08:29 Dose: 15 mg Trazodone HCl (Trazodone Hcl 50 Mg Tablet) 50 mg PO BEDTIME PRN PRN Reason: sleep Last Admin: 03/25/24 20:30 Dose: 50 mg Trazodone HCl (Trazodone Hcl 25 Mg Halftab) 12.5 mg PO TID [facility] Last Admin: 03/28/24 15:19 Dose: 12.5 mg Allergies Allergies Allergy/AdvReac Type Severity Reaction Status Date / Time sulfamethoxazole Allergy Unknown Verified 03/03/24 14:32 [From Sulfamethoxazole-Trimethoprim] trimethoprim Allergy Unknown Verified 03/03/24 14:32 [From Sulfamethoxazole-Trimethoprim] Assessment & Plan Assessment & Plan (1) Dementia: Status: Acute Code(s): F03.90 - Unspecified dementia, unspecified severity, without behavioral disturbance, psychotic disturbance, mood disturbance, and anxiety (2) Major neurocognitive disorder due to Alzheimer's disease, without behavioral disturbance: Status: Acute Code(s): G30.9 - Alzheimer's disease, unspecified; F02.80 - Dementia in other diseases classified elsewhere, unspecified severity, without behavioral disturbance, psychotic disturbance, mood disturbance, and anxiety Plan Elderly female with a past history of Alzheimer's, recently in a subacute rehab due to subdural hematoma referred for exacerbation of agitation. The patient is a very poor historian unable to provide any details still very agitated. Plan 03/20 continue tx. will check ammonia and depakote level on 03/22/24 at 7am. 03/21: continue current management and treatment plan. check labs tomorrow. 03/22: Continue current management and treatment plan. Check Depakote level and ammonia on 03/23. 03/23 increase trazodone up to 25 p.o. t.i.d. to target anxiety. 03/24 keep same treatment. 03/25 keep same treatment 03/26 keep same treatment 03/27 trazodone will be lowered to 12.5 p.o. t.i.d. 03/28 Continue plan of care patient generally flat apathetic Informed Consent: does not understand Reason for continued inpatient stay Substantial Risk for: inability to function, rapid decompensation and med/psych decompensation Time Spent With Patient Time: Total time managing care of this patient today ____ minutes.
[2024-03-28 20:00] VITALS: BP 141/64; PULSE 93; RESP 16; TEMP 36.4; O2SAT 99
[2024-03-28] MEDS: Donepezil HCl 5 MG TABLET PO (20:28)
[2024-03-28] MEDS: Famotidine 20 MG TABLET PO (20:28)
[2024-03-28] MEDS: Milk of Magnesia 30 ML ORAL.SUSP PO (20:36)
[2024-03-28] MEDS: LORazepam 0.5 MG TABLET PO (20:36)
[2024-03-29] MEDS: Levothyroxine Sodium 75 MCG TABLET PO (06:49)
[2024-03-29 08:00] VITALS: BP 112/63; PULSE 93; RESP 18; TEMP 36.6; O2SAT 98
[2024-03-29] MEDS: oxyBUTYnin chloride ER 5 MG TAB.ER.24 15 MG PO (08:20)
[2024-03-29] MEDS: traZODone HCL 25 MG HALFTAB 12.5 MG PO ×3 (08:21→20:16)
[2024-03-29] MEDS: Loratadine 10 MG TABLET PO (08:22)
[2024-03-29] MEDS: Divalproex Sodium Sprinkles 125 MG CAP.DR.SPR 250 MG PO ×3 (08:22→20:16)
[2024-03-29] MEDS: OLANZapine 2.5 MG TABLET PO ×2 (08:22→20:17)
[2024-03-29] MEDS: Atorvastatin Calcium 20 MG TABLET PO (08:22)
[2024-03-29] MEDS: LORazepam 0.5 MG TABLET PO ×2 (09:16→21:49)
[2024-03-29] MEDS: OLANZapine 10 MG TABLET PO ×2 (09:16→22:49)
[2024-03-29] MEDS: hydrOXYzine HCL 25 MG TABLET PO ×2 (12:50→21:49)
--- NOTE | 2024-03-29 14:47 | HO.PSYCHPN ---
Subjective Subjective Date of Service: 03/29/24 Reason For Visit: combative behaviors Subjective Notes: Conditional Voluntary Interim History: Patient has had more periods of irritability agitation remains on one-to-one Mental Status Exam Mental Status Exam Patient Appearance: Appropriate Patient Orientation: Person Level of Consciousness: Sedated Patient Behavior: Guarded and Passive Mood Description: Withdrawn Affect Description: Constricted Patient Cognition Impaired: Yes Ability to Follow Directions: Good Speech Pattern: Impoverished Hallucinations: None Delusions: Ideas of Reference Thought Process: Distracted Judgement: Poor Judgement and Insight: Patient generally internally preoccupied was not verbal with this communications writer ongoing would not answer questions or engage Diagnostics Vital Signs (24Hr): Vital Signs - 24 hr 03/28/24 20:00 03/29/24 08:00 Temperature 97.6 F 97.9 F Pulse Rate 93 93 Respiratory Rate 16 18 Blood Pressure 141/64 H 112/63 Pulse Oximetry 99 98 Oxygen Delivery Method Room Air Room Air BMI result Body Mass Index 19.5 Labs 03/10/24 07:55 03/10/24 07:55 Medications Medications Current Medications Acetaminophen (Acetaminophen 325 Mg Tablet) 975 mg PO TID PRN PRN Reason: Fever Or Pain Last Admin: 03/23/24 21:15 Dose: 975 mg Al Hydroxide/Mg Hydroxide (Magnesium Hydrox/Alum Hydrox 30 Ml Oral.Susp) 30 ml PO Q6H PRN PRN Reason: Heartburn/Nausea Atorvastatin Calcium (Atorvastatin Calcium 20 Mg Tablet) 20 mg PO DAILY [facility]S [facility] Last Admin: 03/29/24 08:22 Dose: 20 mg Bisacodyl (Bisacodyl 10 Mg Supp.Rect) 10 mg [place] DAILY PRN PRN Reason: Constipation Last Admin: 03/28/24 00:13 Dose: 10 mg Divalproex Sodium (Divalproex Sodium Sprinkles 125 Mg Cap.DrMaria FernandaSpr) 250 mg PO TID [facility] 234 [facility]S [facility] Last Admin: 03/29/24 08:22 Dose: 250 mg Donepezil HCl (Donepezil Hcl 5 Mg Tablet) 5 mg PO BEDTIME [facility] 234 B[facility]S AT [facility] Last Admin: 03/28/24 20:28 Dose: 5 mg Famotidine (Famotidine 20 Mg Tablet) 20 mg PO BEDTIME [facility] 234 BEDS AT [facility] Last Admin: 03/28/24 20:28 Dose: 20 mg Hydroxyzine HCl (Hydroxyzine Hcl 25 Mg Tablet) 25 mg PO Q6H PRN PRN Reason: Anxiety Last Admin: 03/29/24 12:50 Dose: 25 mg Levothyroxine Sodium (Levothyroxine Sodium 75 Mcg Tablet) 75 mcg PO DAILY@0600 [facility] 234 B[facility]S [facility] Last Admin: 03/29/24 06:49 Dose: 75 mcg Loratadine (Loratadine 10 Mg Tablet) 10 mg PO DAILY [facility] 234 B[facility]S AT [facility] Last Admin: 03/29/24 08:22 Dose: 10 mg Lorazepam (Lorazepam 0.5 Mg Tablet) 0.5 mg PO TID PRN PRN Reason: Anxiety Magnesium Hydroxide (Milk Of Magnesia 30 Ml Oral.Susp) 30 ml PO DAILY PRN PRN Reason: Constipation Last Admin: 03/28/24 20:36 Dose: 30 ml Olanzapine (Olanzapine 2.5 Mg Tablet) 2.5 mg PO BID [facility] 234 BEDS AT [facility] Last Admin: 03/29/24 08:22 Dose: 2.5 mg Olanzapine (Olanzapine 10 Mg Tablet) 10 mg PO Q6H PRN PRN Reason: agitation Last Admin: 03/29/24 09:16 Dose: 10 mg Oxybutynin Chloride (Oxybutynin Chloride Er 5 Mg Tab.Er.24) 15 mg PO DAILY [facility] 234 B[facility]S [facility] Last Admin: 03/29/24 08:20 Dose: 15 mg Trazodone HCl (Trazodone Hcl 50 Mg Tablet) 50 mg PO BEDTIME PRN PRN Reason: sleep Last Admin: 03/25/24 20:30 Dose: 50 mg Trazodone HCl (Trazodone Hcl 25 Mg Halftab) 12.5 mg PO TID [facility] 234 B[facility]S [facility] Last Admin: 03/29/24 08:21 Dose: 12.5 mg Allergies Allergies Allergy/AdvReac Type Severity Reaction Status Date / Time sulfamethoxazole Allergy Unknown Verified 03/03/24 14:32 [From Sulfamethoxazole-Trimethoprim] trimethoprim Allergy Unknown Verified 03/03/24 14:32 [From Sulfamethoxazole-Trimethoprim] Assessment & Plan Assessment & Plan (1) Dementia: Status: Acute Code(s): F03.90 - Unspecified dementia, unspecified severity, without behavioral disturbance, psychotic disturbance, mood disturbance, and anxiety (2) Major neurocognitive disorder due to Alzheimer's disease, without behavioral disturbance: Status: Acute Code(s): G30.9 - Alzheimer's disease, unspecified; F02.80 - Dementia in other diseases classified elsewhere, unspecified severity, without behavioral disturbance, psychotic disturbance, mood disturbance, and anxiety Plan Elderly female with a past history of Alzheimer's, recently in a subacute rehab due to subdural hematoma referred for exacerbation of agitation. The patient is a very poor historian unable to provide any details still very agitated. Plan 03/20 continue tx. will check ammonia and depakote level on 03/22/24 at 7am. 03/21: continue current management and treatment plan. check labs tomorrow. 03/22: Continue current management and treatment plan. Check Depakote level and ammonia on 03/23. 03/23 increase trazodone up to 25 p.o. t.i.d. to target anxiety. 03/24 keep same treatment. 03/25 keep same treatment 03/26 keep same treatment 03/27 trazodone will be lowered to 12.5 p.o. t.i.d. 03/29/24 Increase lorazepam 0.5 t.i.d. p.r.n. Informed Consent: does not understand Reason for continued inpatient stay Substantial Risk for: inability to function and rapid decompensation Time Spent With Patient Time: Total time managing care of this patient today ____ minutes.
[2024-03-29 20:00] VITALS: BP 110/72; PULSE 69; RESP 18; TEMP 36.1; O2SAT 95
[2024-03-29] MEDS: Famotidine 20 MG TABLET PO (20:16)
[2024-03-29] MEDS: Donepezil HCl 5 MG TABLET PO (20:17)
[2024-03-29] MEDS: traZODone HCL 50 MG TABLET PO (21:50)
[2024-03-30 08:00] VITALS: BP 112/72; PULSE 69; RESP 14; TEMP 36.4; O2SAT 93
[2024-03-30] MEDS: oxyBUTYnin chloride ER 5 MG TAB.ER.24 15 MG PO (09:18)
[2024-03-30] MEDS: Divalproex Sodium Sprinkles 125 MG CAP.DR.SPR 250 MG PO ×3 (09:19→19:56)
[2024-03-30] MEDS: OLANZapine 2.5 MG TABLET PO ×2 (09:19→19:59)
[2024-03-30] MEDS: traZODone HCL 25 MG HALFTAB 12.5 MG PO ×3 (09:19→19:57)
[2024-03-30] MEDS: Atorvastatin Calcium 20 MG TABLET PO (09:19)
[2024-03-30] MEDS: Loratadine 10 MG TABLET PO (09:27)
--- NOTE | 2024-03-30 15:09 | P.PNPSI_ITS ---
Subjective Subjective Date of Service: 03/30/24 Reason For Visit: combative behaviors Subjective Notes: Conditional Voluntary Interim History: The nursing staff reported the patient had been compliant with treatment, her daughter brought her hearing aids. On interview the patient denies new symptoms pleasantly confused. Mental Status Exam Mental Status Exam Patient Appearance: Appropriate Patient Orientation: Person and Situation Level of Consciousness: Awake and Appropriate Patient Behavior: Guarded and Passive Mood Description: Withdrawn Affect Description: Constricted Patient Cognition Impaired: Yes Ability to Follow Directions: Good Speech Pattern: Clear Hallucinations: None Delusions: Ideas of Reference Thought Process: Distracted and Slowed Thinking Thought Content: positive for [place] and positive for Poverty of Content Judgement: Fair Diagnostics Vital Signs (24Hr): Vital Signs - 24 hr 03/29/24 20:00 03/30/24 08:00 Temperature 97.0 F 97.5 F Pulse Rate 69 69 Respiratory Rate 18 14 Blood Pressure 110/72 112/72 Pulse Oximetry 95 93 Oxygen Delivery Method Room Air BMI result Body Mass Index 19.5 Labs 03/10/24 07:55 03/10/24 07:55 Medications Medications Current Medications Acetaminophen (Acetaminophen 325 Mg Tablet) 975 mg PO TID PRN PRN Reason: Fever Or Pain Last Admin: 03/23/24 21:15 Dose: 975 mg Al Hydroxide/Mg Hydroxide (Magnesium Hydrox/Alum Hydrox 30 Ml Oral.Susp) 30 ml PO Q6H PRN PRN Reason: Heartburn/Nausea Atorvastatin Calcium (Atorvastatin Calcium 20 Mg Tablet) 20 mg PO DAILY [facility] Last Admin: 03/30/24 09:19 Dose: 20 mg Bisacodyl (Bisacodyl 10 Mg Supp.Rect) 10 mg [place] DAILY PRN PRN Reason: Constipation Last Admin: 03/28/24 00:13 Dose: 10 mg Divalproex Sodium (Divalproex Sodium Sprinkles 125 Mg Cap.) 250 mg PO TID [facility] Last Admin: 03/30/24 14:36 Dose: 250 mg Donepezil HCl (Donepezil Hcl 5 Mg Tablet) 5 mg PO BEDTIME [facility] Last Admin: 03/29/24 20:17 Dose: 5 mg Famotidine (Famotidine 20 Mg Tablet) 20 mg PO BEDTIME [facility] Last Admin: 03/29/24 20:16 Dose: 20 mg Hydroxyzine HCl (Hydroxyzine Hcl 25 Mg Tablet) 25 mg PO Q6H PRN PRN Reason: Anxiety Last Admin: 03/29/24 21:49 Dose: 25 mg Levothyroxine Sodium (Levothyroxine Sodium 75 Mcg Tablet) 75 mcg PO DAILY@0600 [facility] Last Admin: 03/30/24 09:25 Dose: Not Given Loratadine (Loratadine 10 Mg Tablet) 10 mg PO DAILY [facility] Last Admin: 03/30/24 09:27 Dose: 10 mg Lorazepam (Lorazepam 0.5 Mg Tablet) 0.5 mg PO TID PRN PRN Reason: Anxiety Last Admin: 03/29/24 21:49 Dose: 0.5 mg Magnesium Hydroxide (Milk Of Magnesia 30 Ml Oral.Susp) 30 ml PO DAILY PRN PRN Reason: Constipation Last Admin: 03/28/24 20:36 Dose: 30 ml Olanzapine (Olanzapine 2.5 Mg Tablet) 2.5 mg PO BID [facility] Last Admin: 03/30/24 09:19 Dose: 2.5 mg Olanzapine (Olanzapine 10 Mg Tablet) 10 mg PO Q6H PRN PRN Reason: agitation Last Admin: 03/29/24 22:49 Dose: 10 mg Oxybutynin Chloride (Oxybutynin Chloride Er 5 Mg Tab.Er.24) 15 mg PO DAILY [facility] Last Admin: 03/30/24 09:18 Dose: 15 mg Trazodone HCl (Trazodone Hcl 50 Mg Tablet) 50 mg PO BEDTIME PRN PRN Reason: sleep Last Admin: 03/29/24 21:50 Dose: 50 mg Trazodone HCl (Trazodone Hcl 25 Mg Halftab) 12.5 mg PO TID [facility] Last Admin: 03/30/24 14:36 Dose: 12.5 mg Allergies Allergies Allergy/AdvReac Type Severity Reaction Status Date / Time sulfamethoxazole Allergy Unknown Verified 03/03/24 14:32 [From Sulfamethoxazole-Trimethoprim] trimethoprim Allergy Unknown Verified 03/03/24 14:32 [From Sulfamethoxazole-Trimethoprim] Assessment & Plan Assessment & Plan (1) Dementia: Status: Acute Code(s): F03.90 - Unspecified dementia, unspecified severity, without behavioral disturbance, psychotic disturbance, mood disturbance, and anxiety (2) Major neurocognitive disorder due to Alzheimer's disease, without behavioral disturbance: Status: Acute Code(s): G30.9 - Alzheimer's disease, unspecified; F02.80 - Dementia in other diseases classified elsewhere, unspecified severity, without behavioral disturbance, psychotic disturbance, mood disturbance, and anxiety Plan Elderly female with a past history of Alzheimer's, recently in a subacute rehab due to subdural hematoma referred for exacerbation of agitation. The patient is a very poor historian unable to provide any details still very agitated. Plan 03/20 continue tx. will check ammonia and depakote level on 03/22/24 at 7am. 03/21: continue current management and treatment plan. check labs tomorrow. 03/22: Continue current management and treatment plan. Check Depakote level and ammonia on 03/23. 03/23 increase trazodone up to 25 p.o. t.i.d. to target anxiety. 03/24 keep same treatment. 03/25 keep same treatment 03/26 keep same treatment 03/27 trazodone will be lowered to 12.5 p.o. t.i.d. 03/29/24 Increase lorazepam 0.5 t.i.d. p.r.n. 03/30 keep same treatment Reason for continued inpatient stay Substantial Risk for: inability to function, rapid decompensation and med/psych decompensation Time Spent With Patient Time: Total time managing care of this patient today __20__ minutes.
[2024-03-30] MEDS: Famotidine 20 MG TABLET PO (19:58)
[2024-03-30] MEDS: hydrOXYzine HCL 25 MG TABLET PO (19:58)
[2024-03-30] MEDS: Donepezil HCl 5 MG TABLET PO (19:59)
[2024-03-30] MEDS: traZODone HCL 50 MG TABLET PO (19:59)
[2024-03-30 20:00] VITALS: BP 169/97; PULSE 77; TEMP 36.6; O2SAT 95
[2024-03-31] MEDS: Levothyroxine Sodium 75 MCG TABLET PO (06:18)
[2024-03-31 08:00] VITALS: BP 103/59; PULSE 55; RESP 16; TEMP 36.1; O2SAT 94
[2024-03-31] MEDS: Loratadine 10 MG TABLET PO (10:21)
[2024-03-31] MEDS: oxyBUTYnin chloride ER 5 MG TAB.ER.24 15 MG PO (10:21)
[2024-03-31] MEDS: OLANZapine 2.5 MG TABLET PO ×2 (10:22→20:06)
[2024-03-31] MEDS: traZODone HCL 25 MG HALFTAB 12.5 MG PO ×3 (10:22→20:06)
[2024-03-31] MEDS: Divalproex Sodium Sprinkles 125 MG CAP.DR.SPR 250 MG PO ×3 (10:22→20:06)
[2024-03-31] MEDS: Atorvastatin Calcium 20 MG TABLET PO (10:22)
--- NOTE | 2024-03-31 16:37 | HO.PSYCHPN ---
Subjective Subjective Date of Service: 03/31/24 Reason For Visit: combative behaviors Subjective Notes: Conditional Voluntary Interim History: The nursing staff reported no changes in her mental status wearing her hearing aids. The occupational therapist reported that she has poor mobility. The social worker assistant is applying for retirement facility. On interview the patient denies new symptoms pleasantly confused. Mental Status Exam Mental Status Exam Patient Appearance: Appropriate Patient Orientation: Person and Situation Level of Consciousness: Awake and Appropriate Patient Behavior: Guarded and Passive Mood Description: Withdrawn Affect Description: Constricted Patient Cognition Impaired: Yes Ability to Follow Directions: Good Speech Pattern: Clear Hallucinations: None Delusions: Ideas of Reference Thought Process: Distracted and Slowed Thinking Thought Content: positive for [place] and positive for Poverty of Content Judgement: Fair Diagnostics Vital Signs (24Hr): Vital Signs - 24 hr 03/30/24 20:00 03/31/24 08:00 Temperature 97.9 F 97.0 F Pulse Rate 77 55 Respiratory Rate 16 Blood Pressure 169/97 H 103/59 L Pulse Oximetry 95 94 Oxygen Delivery Method Room Air Room Air BMI result Body Mass Index 19.5 Labs 03/10/24 07:55 03/10/24 07:55 Medications Medications Current Medications Acetaminophen (Acetaminophen 325 Mg Tablet) 975 mg PO TID PRN PRN Reason: Fever Or Pain Last Admin: 03/23/24 21:15 Dose: 975 mg Al Hydroxide/Mg Hydroxide (Magnesium Hydrox/Alum Hydrox 30 Ml Oral.Susp) 30 ml PO Q6H PRN PRN Reason: Heartburn/Nausea Atorvastatin Calcium (Atorvastatin Calcium 20 Mg Tablet) 20 mg PO DAILY [facility] Last Admin: 03/31/24 10:22 Dose: 20 mg Bisacodyl (Bisacodyl 10 Mg Supp.Rect) 10 mg [place] DAILY PRN PRN Reason: Constipation Last Admin: 03/28/24 00:13 Dose: 10 mg Divalproex Sodium (Divalproex Sodium Sprinkles 125 Mg Cap.Spr) 250 mg PO TID [facility] Last Admin: 03/31/24 15:04 Dose: 250 mg Donepezil HCl (Donepezil Hcl 5 Mg Tablet) 5 mg PO BEDTIME [facility] Last Admin: 03/30/24 19:59 Dose: 5 mg Famotidine (Famotidine 20 Mg Tablet) 20 mg PO BEDTIME [facility] Last Admin: 03/30/24 19:58 Dose: 20 mg Hydroxyzine HCl (Hydroxyzine Hcl 25 Mg Tablet) 25 mg PO Q6H PRN PRN Reason: Anxiety Last Admin: 03/30/24 19:58 Dose: 25 mg Levothyroxine Sodium (Levothyroxine Sodium 75 Mcg Tablet) 75 mcg PO DAILY@0600 [facility] Last Admin: 03/31/24 06:18 Dose: 75 mcg Loratadine (Loratadine 10 Mg Tablet) 10 mg PO DAILY [facility] Last Admin: 03/31/24 10:21 Dose: 10 mg Lorazepam (Lorazepam 0.5 Mg Tablet) 0.5 mg PO TID PRN PRN Reason: Anxiety Last Admin: 03/29/24 21:49 Dose: 0.5 mg Magnesium Hydroxide (Milk Of Magnesia 30 Ml Oral.Susp) 30 ml PO DAILY PRN PRN Reason: Constipation Last Admin: 03/28/24 20:36 Dose: 30 ml Olanzapine (Olanzapine 2.5 Mg Tablet) 2.5 mg PO BID [facility] Last Admin: 03/31/24 10:22 Dose: 2.5 mg Olanzapine (Olanzapine 10 Mg Tablet) 10 mg PO Q6H PRN PRN Reason: agitation Last Admin: 03/29/24 22:49 Dose: 10 mg Oxybutynin Chloride (Oxybutynin Chloride Er 5 Mg Tab.Er.24) 15 mg PO DAILY [facility] Last Admin: 03/31/24 10:21 Dose: 15 mg Trazodone HCl (Trazodone Hcl 50 Mg Tablet) 50 mg PO BEDTIME PRN PRN Reason: sleep Last Admin: 03/30/24 19:59 Dose: 50 mg Trazodone HCl (Trazodone Hcl 25 Mg Halftab) 12.5 mg PO TID [facility] Last Admin: 03/31/24 15:04 Dose: 12.5 mg Allergies Allergies Allergy/AdvReac Type Severity Reaction Status Date / Time sulfamethoxazole Allergy Unknown Verified 03/03/24 14:32 [From Sulfamethoxazole-Trimethoprim] trimethoprim Allergy Unknown Verified 03/03/24 14:32 [From Sulfamethoxazole-Trimethoprim] Assessment & Plan Assessment & Plan (1) Dementia: Status: Acute Code(s): F03.90 - Unspecified dementia, unspecified severity, without behavioral disturbance, psychotic disturbance, mood disturbance, and anxiety (2) Major neurocognitive disorder due to Alzheimer's disease, without behavioral disturbance: Status: Acute Code(s): G30.9 - Alzheimer's disease, unspecified; F02.80 - Dementia in other diseases classified elsewhere, unspecified severity, without behavioral disturbance, psychotic disturbance, mood disturbance, and anxiety Plan Elderly female with a past history of Alzheimer's, recently in a subacute rehab due to subdural hematoma referred for exacerbation of agitation. The patient is a very poor historian unable to provide any details still very agitated. Plan 03/20 continue tx. will check ammonia and depakote level on 03/22/24 at 7am. 03/21: continue current management and treatment plan. check labs tomorrow. 03/22: Continue current management and treatment plan. Check Depakote level and ammonia on 03/23. 03/23 increase trazodone up to 25 p.o. t.i.d. to target anxiety. 03/24 keep same treatment. 03/25 keep same treatment 03/26 keep same treatment 03/27 trazodone will be lowered to 12.5 p.o. t.i.d. 03/29/24 Increase lorazepam 0.5 t.i.d. p.r.n. 03/30 keep same treatment. 03/31 keep same treatment Reason for continued inpatient stay Substantial Risk for: inability to function, rapid decompensation and med/psych decompensation Time Spent With Patient Time: Total time managing care of this patient today __20__ minutes.
[2024-03-31 20:00] VITALS: BP 126/66; PULSE 83; RESP 16; TEMP 36.6; O2SAT 95
[2024-03-31] MEDS: Donepezil HCl 5 MG TABLET PO (20:02)
[2024-03-31] MEDS: Famotidine 20 MG TABLET PO (20:02)
[2024-03-31] MEDS: LORazepam 0.5 MG TABLET PO (20:02)
[2024-03-31] MEDS: hydrOXYzine HCL 25 MG TABLET PO (20:06)
[2024-03-31] MEDS: traZODone HCL 50 MG TABLET PO (20:06)
[2024-04-01] MEDS: Levothyroxine Sodium 75 MCG TABLET PO (06:27)
[2024-04-01 08:00] VITALS: BP 128/68; PULSE 83; RESP 18; TEMP 36.6; O2SAT 95
[2024-04-01] MEDS: Loratadine 10 MG TABLET PO (08:19)
[2024-04-01] MEDS: oxyBUTYnin chloride ER 5 MG TAB.ER.24 15 MG PO (08:19)
[2024-04-01] MEDS: OLANZapine 2.5 MG TABLET PO ×2 (08:20→20:15)
[2024-04-01] MEDS: Atorvastatin Calcium 20 MG TABLET PO (08:20)
[2024-04-01] MEDS: Divalproex Sodium Sprinkles 125 MG CAP.DR.SPR 250 MG PO ×3 (08:20→20:10)
[2024-04-01] MEDS: traZODone HCL 25 MG HALFTAB 12.5 MG PO ×3 (08:20→20:13)
--- NOTE | 2024-04-01 16:05 | HO.PSYCHPN ---
Subjective Subjective Date of Service: 04/01/24 Reason For Visit: combative behaviors Subjective Notes: Conditional Voluntary Interim History: The nursing staff reported the patient had been pleasantly confused no changes in her mental status. On interview the patient denies new symptoms very confused but redirectable. Mental Status Exam Mental Status Exam Patient Appearance: Appropriate Patient Orientation: Person Level of Consciousness: Awake Patient Behavior: Guarded and Passive Mood Description: Withdrawn Affect Description: Constricted Patient Cognition Impaired: Yes Ability to Follow Directions: Good Speech Pattern: Impoverished Hallucinations: None Delusions: Not Present Thought Process: Distracted and Slowed Thinking Thought Content: positive for [place] and positive for Poverty of Content Judgement: Fair Diagnostics Vital Signs (24Hr): Vital Signs - 24 hr 03/31/24 20:00 04/01/24 08:00 Temperature 97.8 F 97.8 F Pulse Rate 83 83 Respiratory Rate 16 18 Blood Pressure 126/66 128/68 Pulse Oximetry 95 95 Oxygen Delivery Method Room Air Room Air BMI result Body Mass Index 19.5 Labs 03/10/24 07:55 03/10/24 07:55 Medications Medications Current Medications Acetaminophen (Acetaminophen 325 Mg Tablet) 975 mg PO TID PRN PRN Reason: Fever Or Pain Last Admin: 03/23/24 21:15 Dose: 975 mg Al Hydroxide/Mg Hydroxide (Magnesium Hydrox/Alum Hydrox 30 Ml Oral.Susp) 30 ml PO Q6H PRN PRN Reason: Heartburn/Nausea Atorvastatin Calcium (Atorvastatin Calcium 20 Mg Tablet) 20 mg PO DAILY [facility] Last Admin: 04/01/24 08:20 Dose: 20 mg Bisacodyl (Bisacodyl 10 Mg Supp.Rect) 10 mg [place] DAILY PRN PRN Reason: Constipation Last Admin: 03/28/24 00:13 Dose: 10 mg Divalproex Sodium (Divalproex Sodium Sprinkles 125 Mg Cap.) 250 mg PO TID [facility] Last Admin: 04/01/24 14:23 Dose: 250 mg Donepezil HCl (Donepezil Hcl 5 Mg Tablet) 5 mg PO BEDTIME [facility] Last Admin: 03/31/24 20:02 Dose: 5 mg Famotidine (Famotidine 20 Mg Tablet) 20 mg PO BEDTIME [facility] Last Admin: 03/31/24 20:02 Dose: 20 mg Hydroxyzine HCl (Hydroxyzine Hcl 25 Mg Tablet) 25 mg PO Q6H PRN PRN Reason: Anxiety Last Admin: 03/31/24 20:06 Dose: 25 mg Levothyroxine Sodium (Levothyroxine Sodium 75 Mcg Tablet) 75 mcg PO DAILY@0600 [facility] Last Admin: 04/01/24 06:27 Dose: 75 mcg Loratadine (Loratadine 10 Mg Tablet) 10 mg PO DAILY [facility] Last Admin: 04/01/24 08:19 Dose: 10 mg Lorazepam (Lorazepam 0.5 Mg Tablet) 0.5 mg PO TID PRN PRN Reason: Anxiety Last Admin: 03/31/24 20:02 Dose: 0.5 mg Magnesium Hydroxide (Milk Of Magnesia 30 Ml Oral.Susp) 30 ml PO DAILY PRN PRN Reason: Constipation Last Admin: 03/28/24 20:36 Dose: 30 ml Olanzapine (Olanzapine 2.5 Mg Tablet) 2.5 mg PO BID [facility] Last Admin: 04/01/24 08:20 Dose: 2.5 mg Olanzapine (Olanzapine 10 Mg Tablet) 10 mg PO Q6H PRN PRN Reason: agitation Last Admin: 03/29/24 22:49 Dose: 10 mg Oxybutynin Chloride (Oxybutynin Chloride Er 5 Mg Tab.Er.24) 15 mg PO DAILY [facility] Last Admin: 04/01/24 08:19 Dose: 15 mg Trazodone HCl (Trazodone Hcl 50 Mg Tablet) 50 mg PO BEDTIME PRN PRN Reason: sleep Last Admin: 03/31/24 20:06 Dose: 50 mg Trazodone HCl (Trazodone Hcl 25 Mg Halftab) 12.5 mg PO TID [facility] Last Admin: 04/01/24 14:23 Dose: 12.5 mg Allergies Allergies Allergy/AdvReac Type Severity Reaction Status Date / Time sulfamethoxazole Allergy Unknown Verified 03/03/24 14:32 [From Sulfamethoxazole-Trimethoprim] trimethoprim Allergy Unknown Verified 03/03/24 14:32 [From Sulfamethoxazole-Trimethoprim] Assessment & Plan Assessment & Plan (1) Dementia: Status: Acute Code(s): F03.90 - Unspecified dementia, unspecified severity, without behavioral disturbance, psychotic disturbance, mood disturbance, and anxiety (2) Major neurocognitive disorder due to Alzheimer's disease, without behavioral disturbance: Status: Acute Code(s): G30.9 - Alzheimer's disease, unspecified; F02.80 - Dementia in other diseases classified elsewhere, unspecified severity, without behavioral disturbance, psychotic disturbance, mood disturbance, and anxiety Plan Elderly female with a past history of Alzheimer's, recently in a subacute rehab due to subdural hematoma referred for exacerbation of agitation. The patient is a very poor historian unable to provide any details still very agitated. Plan 03/20 continue tx. will check ammonia and depakote level on 03/22/24 at 7am. 03/21: continue current management and treatment plan. check labs tomorrow. 03/22: Continue current management and treatment plan. Check Depakote level and ammonia on 03/23. 03/23 increase trazodone up to 25 p.o. t.i.d. to target anxiety. 03/24 keep same treatment. 03/25 keep same treatment 03/26 keep same treatment 03/27 trazodone will be lowered to 12.5 p.o. t.i.d. 03/29/24 Increase lorazepam 0.5 t.i.d. p.r.n. 03/30 keep same treatment. 03/31 keep same treatment 04/01 keep same treatment Reason for continued inpatient stay Substantial Risk for: inability to function, rapid decompensation and med/psych decompensation Time Spent With Patient Time: Total time managing care of this patient today _20___ minutes.
[2024-04-01 20:00] VITALS: BP 138/79; PULSE 88; RESP 16; TEMP 36; O2SAT 98
[2024-04-01] MEDS: Famotidine 20 MG TABLET PO (20:15)
[2024-04-01] MEDS: hydrOXYzine HCL 25 MG TABLET PO (20:15)
[2024-04-01] MEDS: Donepezil HCl 5 MG TABLET PO (20:15)
[2024-04-01] MEDS: LORazepam 0.5 MG TABLET PO (20:52)
[2024-04-02] MEDS: Levothyroxine Sodium 75 MCG TABLET PO (06:14)
[2024-04-02 08:37] VITALS: BP 107/56; PULSE 61; RESP 16; TEMP 36; O2SAT 95
[2024-04-02] MEDS: Atorvastatin Calcium 20 MG TABLET PO (10:05)
[2024-04-02] MEDS: Loratadine 10 MG TABLET PO (10:05)
[2024-04-02] MEDS: Divalproex Sodium Sprinkles 125 MG CAP.DR.SPR 250 MG PO ×3 (10:06→20:54)
[2024-04-02] MEDS: traZODone HCL 25 MG HALFTAB 12.5 MG PO ×3 (10:06→20:55)
[2024-04-02] MEDS: OLANZapine 2.5 MG TABLET PO ×2 (10:06→20:54)
[2024-04-02] MEDS: oxyBUTYnin chloride ER 5 MG TAB.ER.24 15 MG PO (10:06)
[2024-04-02] MEDS: bisacodyL 10 MG SUPP.RECT PR (12:43)
[2024-04-02 15:23] VITALS: BMI 20.5
--- NOTE | 2024-04-02 15:54 | P.PNPSI_ITS ---
Subjective Subjective Date of Service: 04/02/24 Reason For Visit: combative behaviors Subjective Notes: Conditional Voluntary Interim History: The nursing staff reported the patient had been pleasantly confused redirectable took her p.r.n. medications. On interview the patient denies new symptoms pleasantly confused. Mental Status Exam Mental Status Exam Patient Appearance: Appropriate Patient Orientation: Person and Situation Level of Consciousness: Awake Patient Behavior: Guarded and Passive Mood Description: Withdrawn Affect Description: Constricted Patient Cognition Impaired: Yes Ability to Follow Directions: Good Speech Pattern: Clear Delusions: Ideas of Reference Thought Process: Distracted and Slowed Thinking Thought Content: positive for [place] and positive for Poverty of Content Judgement: Fair Diagnostics Vital Signs (24Hr): Vital Signs - 24 hr 04/01/24 20:00 04/02/24 08:37 Temperature 96.8 F 96.8 F Pulse Rate 88 61 Respiratory Rate 16 16 Blood Pressure 138/79 107/56 L Pulse Oximetry 98 95 Oxygen Delivery Method Room Air Room Air BMI result Body Mass Index 20.5 Labs 03/10/24 07:55 03/10/24 07:55 Medications Medications Current Medications Acetaminophen (Acetaminophen 325 Mg Tablet) 975 mg PO TID PRN PRN Reason: Fever Or Pain Last Admin: 03/23/24 21:15 Dose: 975 mg Al Hydroxide/Mg Hydroxide (Magnesium Hydrox/Alum Hydrox 30 Ml Oral.Susp) 30 ml PO Q6H PRN PRN Reason: Heartburn/Nausea Atorvastatin Calcium (Atorvastatin Calcium 20 Mg Tablet) 20 mg PO DAILY [facility] Last Admin: 04/02/24 10:05 Dose: 20 mg Bisacodyl (Bisacodyl 10 Mg Supp.Rect) 10 mg [place] DAILY PRN PRN Reason: Constipation Last Admin: 04/02/24 12:43 Dose: 10 mg Divalproex Sodium (Divalproex Sodium Sprinkles 125 Mg [place].) 250 mg PO TID [facility] Last Admin: 04/02/24 10:06 Dose: 250 mg Donepezil HCl (Donepezil Hcl 5 Mg Tablet) 5 mg PO BEDTIME [facility] Last Admin: 04/01/24 20:15 Dose: 5 mg Famotidine (Famotidine 20 Mg Tablet) 20 mg PO BEDTIME [facility] Last Admin: 04/01/24 20:15 Dose: 20 mg Hydroxyzine HCl (Hydroxyzine Hcl 25 Mg Tablet) 25 mg PO Q6H PRN PRN Reason: Anxiety Last Admin: 04/01/24 20:15 Dose: 25 mg Levothyroxine Sodium (Levothyroxine Sodium 75 Mcg Tablet) 75 mcg PO DAILY@0600 [facility] Last Admin: 04/02/24 06:14 Dose: 75 mcg Loratadine (Loratadine 10 Mg Tablet) 10 mg PO DAILY [facility] Last Admin: 04/02/24 10:05 Dose: 10 mg Lorazepam (Lorazepam 0.5 Mg Tablet) 0.5 mg PO TID PRN PRN Reason: Anxiety Last Admin: 04/01/24 20:52 Dose: 0.5 mg Magnesium Hydroxide (Milk Of Magnesia 30 Ml Oral.Susp) 30 ml PO DAILY PRN PRN Reason: Constipation Last Admin: 03/28/24 20:36 Dose: 30 ml Olanzapine (Olanzapine 2.5 Mg Tablet) 2.5 mg PO BID [facility] Last Admin: 04/02/24 10:06 Dose: 2.5 mg Olanzapine (Olanzapine 10 Mg Tablet) 10 mg PO Q6H PRN PRN Reason: agitation Last Admin: 03/29/24 22:49 Dose: 10 mg Oxybutynin Chloride (Oxybutynin Chloride Er 5 Mg Tab.Er.24) 15 mg PO DAILY [facility] Last Admin: 04/02/24 10:06 Dose: 15 mg Trazodone HCl (Trazodone Hcl 50 Mg Tablet) 50 mg PO BEDTIME PRN PRN Reason: sleep Last Admin: 03/31/24 20:06 Dose: 50 mg Trazodone HCl (Trazodone Hcl 25 Mg Halftab) 12.5 mg PO TID [facility] Last Admin: 04/02/24 10:06 Dose: 12.5 mg Allergies Allergies Allergy/AdvReac Type Severity Reaction Status Date / Time sulfamethoxazole Allergy Unknown Verified 03/03/24 14:32 [From Sulfamethoxazole-Trimethoprim] trimethoprim Allergy Unknown Verified 03/03/24 14:32 [From Sulfamethoxazole-Trimethoprim] Assessment & Plan Assessment & Plan (1) Dementia: Status: Acute Code(s): F03.90 - Unspecified dementia, unspecified severity, without behavioral disturbance, psychotic disturbance, mood disturbance, and anxiety (2) Major neurocognitive disorder due to Alzheimer's disease, without behavioral disturbance: Status: Acute Code(s): G30.9 - Alzheimer's disease, unspecified; F02.80 - Dementia in other diseases classified elsewhere, unspecified severity, without behavioral disturbance, psychotic disturbance, mood disturbance, and anxiety Plan Elderly female with a past history of Alzheimer's, recently in a subacute rehab due to subdural hematoma referred for exacerbation of agitation. The patient is a very poor historian unable to provide any details still very agitated. Plan 03/20 continue tx. will check ammonia and depakote level on 03/22/24 at 7am. 03/21: continue current management and treatment plan. check labs tomorrow. 03/22: Continue current management and treatment plan. Check Depakote level and ammonia on 03/23. 03/23 increase trazodone up to 25 p.o. t.i.d. to target anxiety. 03/24 keep same treatment. 03/25 keep same treatment 03/26 keep same treatment 03/27 trazodone will be lowered to 12.5 p.o. t.i.d. 03/29/24 Increase lorazepam 0.5 t.i.d. p.r.n. 03/30 keep same treatment. 03/31 keep same treatment 04/01 keep same treatment 04/02 keep same treatment Reason for continued inpatient stay Substantial Risk for: inability to function, rapid decompensation and med/psych decompensation Time Spent With Patient Time: Total time managing care of this patient today __20__ minutes.
[2024-04-02 20:00] VITALS: BP 114/57; PULSE 77; RESP 16; TEMP 36; O2SAT 97
[2024-04-02] MEDS: Donepezil HCl 5 MG TABLET PO (20:54)
[2024-04-02] MEDS: Famotidine 20 MG TABLET PO (20:55)
[2024-04-02] MEDS: LORazepam 0.5 MG TABLET PO (20:55)
[2024-04-03] MEDS: Levothyroxine Sodium 75 MCG TABLET PO (06:09)
[2024-04-03 08:20] VITALS: BP 110/63; PULSE 76; RESP 18; TEMP 36.2; O2SAT 96
[2024-04-03] MEDS: traZODone HCL 25 MG HALFTAB 12.5 MG PO ×3 (09:22→20:42)
[2024-04-03] MEDS: Atorvastatin Calcium 20 MG TABLET PO (09:23)
[2024-04-03] MEDS: Divalproex Sodium Sprinkles 125 MG CAP.DR.SPR 250 MG PO ×3 (09:24→20:43)
[2024-04-03] MEDS: OLANZapine 2.5 MG TABLET PO ×3 (09:24→20:44)
[2024-04-03] MEDS: Loratadine 10 MG TABLET PO (09:24)
--- NOTE | 2024-04-03 11:13 | HO.PSYCHPN ---
Subjective Subjective Date of Service: 04/03/24 Reason For Visit: combative behaviors Subjective Notes: Conditional Voluntary Healthcare Proxy: Yes Interim History: Pt slept only 2hrs last night. She is calmer but continues to present as impulsive requiring one to one due to fall risk and harm to self. She is taking medications. She asks this commercial real estate underwriter if she can go home. Pt visible on the unit, not social with peers. Not oriented to place or situation. Will schedule trazodone 50mg po qhs, increase olanzapine 2.5mg po TID. Review of Systems Review of Systems Yes all other systems are reviewed and are negative and Unobtainable due to mental status Constitutional: Reports no additional constitutional complaints, Denies chills, Denies fever(s) and Denies night sweats Eyes: Reports no additional eye complaints, Denies blurry vision, Denies change in vision, Denies diplopia, Denies eye discharge, Denies loss of vision and Denies eye pain Denies dizziness Cardiovascular: Reports no additional cardiovascular complaints, Denies chest pain, Denies lightheadedness, Denies Loss of Consciousness and Denies dyspnea Respiratory: Reports no additional respiratory complaints and Denies dyspnea Gastrointestinal: Reports no additional gastrointestinal complaints, Denies abdominal pain, Denies melena, Denies hematochezia, Denies change in bowel habits and Denies change in stool character Musculoskeletal: Reports no additional musculoskeletal complaints, Denies numbness and Denies tingling Reports confusion (chronic for the patient - per her demented baseline), Denies dizziness, Denies loss of vision, Denies numbness and Denies tingling Psychiatric: Reports no additional psychiatric complaints and Reports confusion (chronic for the patient - per her demented baseline) Endocrine: Reports no additional endocrine complaints Hematologic/Lymphatic: Reports no additional hematologic/lymphatic complaints Allergic/Immunologic: Reports no additional allergic/immunologic complaints Mental Status Exam Mental Status Exam Narrative: Appearance: wearing hospital gown, poor hygiene, restless. [place] Behavior: irritable, asking to bring her home Psychomotor: some agitation noted Speech: mumbles, some difficulty enunciation, loud at times, spontaneous TP: goal oriented- wanting to go home. confabulation TC: wanting to go home Mood: okay Affect: irritable SI: none HI: none VH/AH: no overt signs Delusions: no overt delusional content reported but confabulates. Insight/judgment: impaired x 2 Memory/cog: alert, oriented only to self, not to place, month, year nor situation. Diagnostics Vital Signs (24Hr): Vital Signs - 24 hr 04/02/24 20:00 04/03/24 08:20 Temperature 96.8 F 97.1 F Pulse Rate 77 76 Respiratory Rate 16 18 Blood Pressure 114/57 L 110/63 Pulse Oximetry 97 96 Oxygen Delivery Method Room Air Room Air BMI result Body Mass Index 20.5 Labs 03/10/24 07:55 03/10/24 07:55 Medications Medications Current Medications Acetaminophen (Acetaminophen 325 Mg Tablet) 975 mg PO TID PRN PRN Reason: Fever Or Pain Last Admin: 03/23/24 21:15 Dose: 975 mg Al Hydroxide/Mg Hydroxide (Magnesium Hydrox/Alum Hydrox 30 Ml Oral.Susp) 30 ml PO Q6H PRN PRN Reason: Heartburn/Nausea Atorvastatin Calcium (Atorvastatin Calcium 20 Mg Tablet) 20 mg PO DAILY [facility] Last Admin: 04/03/24 09:23 Dose: 20 mg Bisacodyl (Bisacodyl 10 Mg Supp.Rect) 10 mg [place] DAILY PRN PRN Reason: Constipation Last Admin: 04/02/24 12:43 Dose: 10 mg Divalproex Sodium (Divalproex Sodium Sprinkles 125 Mg ) 250 mg PO TID [facility] Last Admin: 04/03/24 09:24 Dose: 250 mg Donepezil HCl (Donepezil Hcl 5 Mg Tablet) 5 mg PO BEDTIME [facility] Last Admin: 04/02/24 20:54 Dose: 5 mg Famotidine (Famotidine 20 Mg Tablet) 20 mg PO BEDTIME [facility] Last Admin: 04/02/24 20:55 Dose: 20 mg Levothyroxine Sodium (Levothyroxine Sodium 75 Mcg Tablet) 75 mcg PO DAILY@0600 [facility] Last Admin: 04/03/24 06:09 Dose: 75 mcg Loratadine (Loratadine 10 Mg Tablet) 10 mg PO DAILY [facility] Last Admin: 04/03/24 09:24 Dose: 10 mg Lorazepam (Lorazepam 0.5 Mg Tablet) 0.5 mg PO TID PRN PRN Reason: Anxiety Last Admin: 04/02/24 20:55 Dose: 0.5 mg Magnesium Hydroxide (Milk Of Magnesia 30 Ml Oral.Susp) 30 ml PO DAILY PRN PRN Reason: Constipation Last Admin: 03/28/24 20:36 Dose: 30 ml Olanzapine (Olanzapine 10 Mg Tablet) 10 mg PO Q6H PRN PRN Reason: agitation Last Admin: 03/29/24 22:49 Dose: 10 mg Olanzapine (Olanzapine 2.5 Mg Tablet) 2.5 mg PO TID [facility] Oxybutynin Chloride (Oxybutynin Chloride Er 5 Mg Tab.Er.24) 15 mg PO DAILY [facility] Last Admin: 04/03/24 10:52 Dose: Not Given Trazodone HCl (Trazodone Hcl 50 Mg Tablet) 50 mg PO BEDTIME PRN PRN Reason: sleep Last Admin: 03/31/24 20:06 Dose: 50 mg Trazodone HCl (Trazodone Hcl 25 Mg Halftab) 12.5 mg PO TID [facility] Last Admin: 04/03/24 09:22 Dose: 12.5 mg Trazodone HCl (Trazodone Hcl 50 Mg Tablet) 50 mg PO BEDTIME [facility] Allergies Allergies Allergy/AdvReac Type Severity Reaction Status Date / Time sulfamethoxazole Allergy Unknown Verified 03/03/24 14:32 [From Sulfamethoxazole-Trimethoprim] trimethoprim Allergy Unknown Verified 03/03/24 14:32 [From Sulfamethoxazole-Trimethoprim] Assessment & Plan Assessment & Plan (1) Major neurocognitive disorder due to Alzheimer's disease, without behavioral disturbance: Status: Acute Code(s): G30.9 - Alzheimer's disease, unspecified; F02.80 - Dementia in other diseases classified elsewhere, unspecified severity, without behavioral disturbance, psychotic disturbance, mood disturbance, and anxiety Plan Elderly female with a past history of Alzheimer's, recently in a subacute rehab due to subdural hematoma referred for exacerbation of agitation. The patient is a very poor historian unable to provide any details still very agitated. Plan 03/20 continue tx. will check ammonia and depakote level on 03/22/24 at 7am. 03/21: continue current management and treatment plan. check labs tomorrow. 03/22: Continue current management and treatment plan. Check Depakote level and ammonia on 03/23. 03/23 increase trazodone up to 25 p.o. t.i.d. to target anxiety. 03/24 keep same treatment. 03/25 keep same treatment 03/26 keep same treatment 03/27 trazodone will be lowered to 12.5 p.o. t.i.d. 03/29/24 Increase lorazepam 0.5 t.i.d. p.r.n. 03/30 keep same treatment. 03/31 keep same treatment 04/01 keep same treatment 04/02 keep same treatment 04/03 Will schedule trazodone 50mg po qhs (slept only 2 hrs.), increase olanzapine 2.5mg po TID. Reason for continued inpatient stay Substantial Risk for: inability to function Time Spent With Patient Time: Total time managing care of this patient today ____ minutes.
[2024-04-03 16:37] LABS: Ammonia 23 umol/L (13-55)
[2024-04-03 19:32] VITALS: BP 132/90; PULSE 93; RESP 16; TEMP 37.1; O2SAT 99
[2024-04-03] MEDS: Donepezil HCl 5 MG TABLET PO (20:43)
[2024-04-03] MEDS: Famotidine 20 MG TABLET PO (20:44)
[2024-04-03] MEDS: LORazepam 0.5 MG TABLET PO (20:44)
[2024-04-03] MEDS: traZODone HCL 50 MG TABLET PO ×2 (20:45)
[2024-04-04] MEDS: Levothyroxine Sodium 75 MCG TABLET PO (06:32)
--- NOTE | 2024-04-04 08:31 | P.PNPSI_ITS ---
Subjective Subjective Date of Service: 04/04/24 Reason For Visit: combative behaviors Subjective Notes: Conditional Voluntary (HCP) Healthcare Proxy: Yes Medical Problems Affecting Mental Status: Yes (dementia- confusion) Interim History: 78 yo wandering harrison with walker, despite 1:1 for walker fall risk- attempting to go in other rooms- ongoing confusion Nursing reports anxious/ but more redirectable than she has been Medication Compliance: Yes Side effects from medications: No Attending Groups: No Review of Systems Acute medical concerns: No Medical Review of Systems: unchanged Mental Status Exam Mental Status Exam Patient Appearance: Well Grooomed Patient Orientation: Person Level of Consciousness: Awake Patient Behavior: Wandering and Confused Mood Description: Anxious Affect Description: Blunted Patient Cognition Impaired: Yes Ability to Follow Directions: Poor Speech Pattern: Aphasic (didn't respond to questions , does say i need to use bath room and did get up to go - ) and Delayed Thought Content: positive for [place] and positive for Poverty of Content Depressive Symptoms: Increased Anxiety Abnormal Motor Activity Signs and Symptoms: Restlessness Judgement: Poor Diagnostics Vital Signs (24Hr): Vital Signs - 24 hr 04/03/24 19:32 Temperature 98.7 F Pulse Rate 93 Respiratory Rate 16 Blood Pressure 132/90 H Pulse Oximetry 99 Oxygen Delivery Method Room Air BMI result Body Mass Index 20.5 Labs 03/10/24 07:55 03/10/24 07:55 Labs: Laboratory Results - last 48 hr 04/03/24 16:10 Ammonia 23 Medications Medications Current Medications Acetaminophen (Acetaminophen 325 Mg Tablet) 975 mg PO TID PRN PRN Reason: Fever Or Pain Last Admin: 03/23/24 21:15 Dose: 975 mg Al Hydroxide/Mg Hydroxide (Magnesium Hydrox/Alum Hydrox 30 Ml Oral.Susp) 30 ml PO Q6H PRN PRN Reason: Heartburn/Nausea Atorvastatin Calcium (Atorvastatin Calcium 20 Mg Tablet) 20 mg PO DAILY REPLACED BY [facility] Last Admin: 04/03/24 09:23 Dose: 20 mg Bisacodyl (Bisacodyl 10 Mg Supp.Rect) 10 mg [place] DAILY PRN PRN Reason: Constipation Last Admin: 04/02/24 12:43 Dose: 10 mg Divalproex Sodium (Divalproex Sodium Sprinkles 125 Mg Cap.) 250 mg PO TID REPLACED BY [facility] Last Admin: 04/03/24 20:43 Dose: 250 mg Donepezil HCl (Donepezil Hcl 5 Mg Tablet) 5 mg PO BEDTIME REPLACED BY [facility] Last Admin: 04/03/24 20:43 Dose: 5 mg Famotidine (Famotidine 20 Mg Tablet) 20 mg PO BEDTIME REPLACED BY [facility] Last Admin: 04/03/24 20:44 Dose: 20 mg Levothyroxine Sodium (Levothyroxine Sodium 75 Mcg Tablet) 75 mcg PO DAILY@0600 REPLACED BY [facility] Last Admin: 04/04/24 06:32 Dose: 75 mcg Loratadine (Loratadine 10 Mg Tablet) 10 mg PO DAILY REPLACED BY [facility] Last Admin: 04/03/24 09:24 Dose: 10 mg Lorazepam (Lorazepam 0.5 Mg Tablet) 0.5 mg PO TID PRN PRN Reason: Anxiety Last Admin: 04/03/24 20:44 Dose: 0.5 mg Magnesium Hydroxide (Milk Of Magnesia 30 Ml Oral.Susp) 30 ml PO DAILY PRN PRN Reason: Constipation Last Admin: 03/28/24 20:36 Dose: 30 ml Olanzapine (Olanzapine 10 Mg Tablet) 10 mg PO Q6H PRN PRN Reason: agitation Last Admin: 03/29/24 22:49 Dose: 10 mg Olanzapine (Olanzapine 2.5 Mg Tablet) 2.5 mg PO TID REPLACED BY [facility] Last Admin: 04/03/24 20:44 Dose: 2.5 mg Oxybutynin Chloride (Oxybutynin Chloride Er 5 Mg Tab.Er.24) 15 mg PO DAILY REPLACED BY [facility] Last Admin: 04/03/24 10:52 Dose: Not Given Trazodone HCl (Trazodone Hcl 50 Mg Tablet) 50 mg PO BEDTIME PRN PRN Reason: sleep Last Admin: 04/03/24 20:45 Dose: 50 mg Trazodone HCl (Trazodone Hcl 25 Mg Halftab) 12.5 mg PO TID REPLACED BY [facility] Last Admin: 04/03/24 20:42 Dose: 12.5 mg Trazodone HCl (Trazodone Hcl 50 Mg Tablet) 50 mg PO BEDTIME REPLACED BY [facility] Last Admin: 04/03/24 20:45 Dose: 50 mg Allergies Allergies Allergy/AdvReac Type Severity Reaction Status Date / Time sulfamethoxazole Allergy Unknown Verified 03/03/24 14:32 [From Sulfamethoxazole-Trimethoprim] trimethoprim Allergy Unknown Verified 03/03/24 14:32 [From Sulfamethoxazole-Trimethoprim] Assessment & Plan Assessment & Plan (1) Major neurocognitive disorder due to Alzheimer's disease, without behavioral disturbance: Status: Acute Code(s): G30.9 - Alzheimer's disease, unspecified; F02.80 - Dementia in other diseases classified elsewhere, unspecified severity, without behavioral disturbance, psychotic disturbance, mood disturbance, and anxiety Plan Elderly female with a past history of Alzheimer's, recently in a subacute rehab due to subdural hematoma referred for exacerbation of agitation. The patient is a very poor historian unable to provide any details still very agitated. Plan 03/20 continue tx. will check ammonia and depakote level on 03/22/24 at 7am. 03/21: continue current management and treatment plan. check labs tomorrow. 03/22: Continue current management and treatment plan. Check Depakote level and ammonia on 03/23. 03/23 increase trazodone up to 25 p.o. t.i.d. to target anxiety. 03/24 keep same treatment. 03/25 keep same treatment 03/26 keep same treatment 03/27 trazodone will be lowered to 12.5 p.o. t.i.d. 03/29/24 Increase lorazepam 0.5 t.i.d. p.r.n. 03/30 keep same treatment. 03/31 keep same treatment 04/01 keep same treatment 04/02 keep same treatment 04/03 Will schedule trazodone 50mg po qhs (slept only 2 hrs.), increase olanzapine 2.5mg po TID. 04/04 more redirectable from changes of meds ys- Reason for continued inpatient stay Substantial Risk for: inability to function, rapid decompensation and med/psych decompensation Time Spent With Patient Time: Total time managing care of this patient today ____ minutes.
[2024-04-04 08:37] LABS: Valproate 61.8 mcg/mL (50.0-100.0)
[2024-04-04 08:53] VITALS: BP 101/50; PULSE 71; RESP 14; TEMP 36.4; O2SAT 97
[2024-04-04] MEDS: oxyBUTYnin chloride ER 5 MG TAB.ER.24 15 MG PO (08:57)
[2024-04-04] MEDS: traZODone HCL 25 MG HALFTAB 12.5 MG PO ×3 (08:58→20:55)
[2024-04-04] MEDS: Divalproex Sodium Sprinkles 125 MG CAP.DR.SPR 250 MG PO ×3 (09:00→20:54)
[2024-04-04] MEDS: Loratadine 10 MG TABLET PO (09:00)
[2024-04-04] MEDS: Atorvastatin Calcium 20 MG TABLET PO (09:00)
[2024-04-04] MEDS: OLANZapine 2.5 MG TABLET PO ×3 (09:00→20:58)
[2024-04-04 20:00] VITALS: BP 127/65; PULSE 69; TEMP 36.6; O2SAT 99
[2024-04-04] MEDS: LORazepam 0.5 MG TABLET PO (20:56)
[2024-04-04] MEDS: Famotidine 20 MG TABLET PO (20:56)
[2024-04-04] MEDS: Donepezil HCl 5 MG TABLET PO (20:57)
[2024-04-04] MEDS: traZODone HCL 50 MG TABLET PO ×2 (20:57)
[2024-04-05] MEDS: Levothyroxine Sodium 75 MCG TABLET PO (06:55)
[2024-04-05 09:00] VITALS: BP 122/63; PULSE 72; RESP 16; TEMP 36.6; O2SAT 98
[2024-04-05] MEDS: OLANZapine 2.5 MG TABLET PO ×3 (09:12→20:31)
[2024-04-05] MEDS: Atorvastatin Calcium 20 MG TABLET PO (09:12)
[2024-04-05] MEDS: Divalproex Sodium Sprinkles 125 MG CAP.DR.SPR 250 MG PO ×3 (09:12→20:29)
[2024-04-05] MEDS: Loratadine 10 MG TABLET PO (09:12)
[2024-04-05] MEDS: traZODone HCL 25 MG HALFTAB 12.5 MG PO ×3 (09:12→20:32)
[2024-04-05] MEDS: oxyBUTYnin chloride ER 5 MG TAB.ER.24 15 MG PO (09:12)
--- NOTE | 2024-04-05 11:49 | P.PNPSI_ITS ---
Subjective Subjective Date of Service: 04/05/24 Reason For Visit: combative behaviors Subjective Notes: Conditional Voluntary (hcp) Healthcare Proxy: Yes Guardianship: No Medical Problems Affecting Mental Status: Yes (dementia) Interim History: 78 yo eating many puddings ordered for lunch, on 1:1 due to issues with her not responding to redirection and wandering into other peoples rooms, no recent combatitveness- Pt denies any complaints to this provider- Medication Compliance: Yes Side effects from medications: No Attending Groups: Intermittent Review of Systems Acute medical concerns: No Medical Review of Systems: unchanged Mental Status Exam Mental Status Exam Patient Appearance: Well Grooomed Patient Orientation: Person Level of Consciousness: Awake Patient Behavior: Wandering, Distractible, Confused and Impulsive Mood Description: Calm Affect Description: Blunted Patient Cognition Impaired: Yes Ability to Follow Directions: Poor Speech Pattern: Impoverished Thought Process: Intact and Goal Oriented Thought Content: positive for [place] Abnormal Motor Activity Signs and Symptoms: Restlessness Judgement: Poor Diagnostics Vital Signs (24Hr): Vital Signs - 24 hr 04/04/24 20:00 04/05/24 09:00 Temperature 97.9 F 97.8 F Pulse Rate 69 72 Respiratory Rate 16 Blood Pressure 127/65 122/63 Pulse Oximetry 99 98 Oxygen Delivery Method Room Air Room Air BMI result Body Mass Index 20.5 Labs 03/10/24 07:55 03/10/24 07:55 Labs: Laboratory Results - last 48 hr 04/03/24 04/04/24 16:10 08:17 Ammonia 23 Valproic Acid 61.8 Medications Medications Current Medications Acetaminophen (Acetaminophen 325 Mg Tablet) 975 mg PO TID PRN PRN Reason: Fever Or Pain Last Admin: 03/23/24 21:15 Dose: 975 mg Al Hydroxide/Mg Hydroxide (Magnesium Hydrox/Alum Hydrox 30 Ml Oral.Susp) 30 ml PO Q6H PRN PRN Reason: Heartburn/Nausea Atorvastatin Calcium (Atorvastatin Calcium 20 Mg Tablet) 20 mg PO DAILY [facility] Last Admin: 04/05/24 09:12 Dose: 20 mg Bisacodyl (Bisacodyl 10 Mg Supp.Rect) 10 mg [place] DAILY PRN PRN Reason: Constipation Last Admin: 04/02/24 12:43 Dose: 10 mg Divalproex Sodium (Divalproex Sodium Sprinkles 125 Mg ) 250 mg PO TID [facility] Last Admin: 04/05/24 09:12 Dose: 250 mg Donepezil HCl (Donepezil Hcl 5 Mg Tablet) 5 mg PO BEDTIME [facility] Last Admin: 04/04/24 20:57 Dose: 5 mg Famotidine (Famotidine 20 Mg Tablet) 20 mg PO BEDTIME [facility] Last Admin: 04/04/24 20:56 Dose: 20 mg Levothyroxine Sodium (Levothyroxine Sodium 75 Mcg Tablet) 75 mcg PO DAILY@0600 [facility] Last Admin: 04/05/24 06:55 Dose: 75 mcg Loratadine (Loratadine 10 Mg Tablet) 10 mg PO DAILY [facility] Last Admin: 04/05/24 09:12 Dose: 10 mg Lorazepam (Lorazepam 0.5 Mg Tablet) 0.5 mg PO TID PRN PRN Reason: Anxiety Last Admin: 04/04/24 20:56 Dose: 0.5 mg Magnesium Hydroxide (Milk Of Magnesia 30 Ml Oral.Susp) 30 ml PO DAILY PRN PRN Reason: Constipation Last Admin: 03/28/24 20:36 Dose: 30 ml Olanzapine (Olanzapine 10 Mg Tablet) 10 mg PO Q6H PRN PRN Reason: agitation Last Admin: 03/29/24 22:49 Dose: 10 mg Olanzapine (Olanzapine 2.5 Mg Tablet) 2.5 mg PO TID [facility] Last Admin: 04/05/24 09:12 Dose: 2.5 mg Oxybutynin Chloride (Oxybutynin Chloride Er 5 Mg Tab.Er.24) 15 mg PO DAILY [facility] Last Admin: 04/05/24 09:12 Dose: 15 mg Trazodone HCl (Trazodone Hcl 50 Mg Tablet) 50 mg PO BEDTIME PRN PRN Reason: sleep Last Admin: 04/04/24 20:57 Dose: 50 mg Trazodone HCl (Trazodone Hcl 25 Mg Halftab) 12.5 mg PO TID [facility] Last Admin: 04/05/24 09:12 Dose: 12.5 mg Trazodone HCl (Trazodone Hcl 50 Mg Tablet) 50 mg PO BEDTIME [facility] Last Admin: 04/04/24 20:57 Dose: 50 mg Allergies Allergies Allergy/AdvReac Type Severity Reaction Status Date / Time sulfamethoxazole Allergy Unknown Verified 03/03/24 14:32 [From Sulfamethoxazole-Trimethoprim] trimethoprim Allergy Unknown Verified 03/03/24 14:32 [From Sulfamethoxazole-Trimethoprim] Assessment & Plan Assessment & Plan (1) Major neurocognitive disorder due to Alzheimer's disease, without behavioral disturbance: Status: Acute Code(s): G30.9 - Alzheimer's disease, unspecified; F02.80 - Dementia in other diseases classified elsewhere, unspecified severity, without behavioral disturbance, psychotic disturbance, mood disturbance, and anxiety Plan Elderly female with a past history of Alzheimer's, recently in a subacute rehab due to subdural hematoma referred for exacerbation of agitation. The patient is a very poor historian unable to provide any details still very agitated. Plan 03/20 continue tx. will check ammonia and depakote level on 03/22/24 at 7am. 03/21: continue current management and treatment plan. check labs tomorrow. 03/22: Continue current management and treatment plan. Check Depakote level and ammonia on 03/23. 03/23 increase trazodone up to 25 p.o. t.i.d. to target anxiety. 03/24 keep same treatment. 03/25 keep same treatment 03/26 keep same treatment 03/27 trazodone will be lowered to 12.5 p.o. t.i.d. 03/29/24 Increase lorazepam 0.5 t.i.d. p.r.n. 03/30 keep same treatment. 03/31 keep same treatment 04/01 keep same treatment 04/02 keep same treatment 04/03 Will schedule trazodone 50mg po qhs (slept only 2 hrs.), increase olanzapine 2.5mg po TID. 04/04 more redirectable from changes of meds yesterday- 04/05- [facility] Reason for continued inpatient stay Substantial Risk for: inability to function and med/psych decompensation Time Spent With Patient Time: Total time managing care of this patient today ____ minutes.
[2024-04-05 20:00] VITALS: BP 118/58; PULSE 78; RESP 16; TEMP 36.8; O2SAT 91
[2024-04-05] MEDS: traZODone HCL 50 MG TABLET PO (20:29)
[2024-04-05] MEDS: Donepezil HCl 5 MG TABLET PO (20:31)
[2024-04-05] MEDS: LORazepam 0.5 MG TABLET PO (20:31)
[2024-04-05] MEDS: Famotidine 20 MG TABLET PO (20:32)
[2024-04-06] MEDS: Levothyroxine Sodium 75 MCG TABLET PO (05:52)
[2024-04-06 08:00] VITALS: BP 100/55; PULSE 58; RESP 16; TEMP 36.7; O2SAT 95
[2024-04-06] MEDS: Atorvastatin Calcium 20 MG TABLET PO (09:05)
[2024-04-06] MEDS: traZODone HCL 25 MG HALFTAB 12.5 MG PO ×2 (09:05→14:45)
[2024-04-06] MEDS: oxyBUTYnin chloride ER 5 MG TAB.ER.24 15 MG PO (09:06)
[2024-04-06] MEDS: Divalproex Sodium Sprinkles 125 MG CAP.DR.SPR 250 MG PO ×3 (09:07→20:03)
[2024-04-06] MEDS: OLANZapine 2.5 MG TABLET PO ×3 (09:07→20:02)
[2024-04-06] MEDS: Loratadine 10 MG TABLET PO (09:07)
--- NOTE | 2024-04-06 11:04 | HO.PSYCHPN ---
Subjective Subjective Date of Service: 04/06/24 Reason For Visit: combative behaviors Interim History: Pt seen,discussed with her team who report no current symptoms of concern. Pt is asleep at 11am. Appears calm, comfortable. She and her room-mate have a one to one who reports pt has no current sx of distress Medication Compliance: Yes Side effects from medications: No Review of Systems Medical Review of Systems: unchanged Review of Systems Review of Systems none currently Mental Status Exam Mental Status Exam Patient Behavior: Asleep Diagnostics Vital Signs (24Hr): Vital Signs - 24 hr 04/05/24 20:00 04/06/24 08:00 Temperature 98.2 F 98.1 F Pulse Rate 78 58 Respiratory Rate 16 16 Blood Pressure 118/58 L 100/55 L Pulse Oximetry 91 L 95 Oxygen Delivery Method Room Air Room Air BMI result Body Mass Index 20.5 Labs 03/10/24 07:55 03/10/24 07:55 Medications Medications Current Medications Acetaminophen (Acetaminophen 325 Mg Tablet) 975 mg PO TID PRN PRN Reason: Fever Or Pain Last Admin: 03/23/24 21:15 Dose: 975 mg Al Hydroxide/Mg Hydroxide (Magnesium Hydrox/Alum Hydrox 30 Ml Oral.Susp) 30 ml PO Q6H PRN PRN Reason: Heartburn/Nausea Atorvastatin Calcium (Atorvastatin Calcium 20 Mg Tablet) 20 mg PO DAILY [facility] Last Admin: 04/06/24 09:05 Dose: 20 mg Bisacodyl (Bisacodyl 10 Mg Supp.Rect) 10 mg [place] DAILY PRN PRN Reason: Constipation Last Admin: 04/02/24 12:43 Dose: 10 mg Divalproex Sodium (Divalproex Sodium Sprinkles 125 Mg ) 250 mg PO TID [facility] Last Admin: 04/06/24 09:07 Dose: 250 mg Donepezil HCl (Donepezil Hcl 5 Mg Tablet) 5 mg PO BEDTIME [facility] Last Admin: 04/05/24 20:31 Dose: 5 mg Famotidine (Famotidine 20 Mg Tablet) 20 mg PO BEDTIME [facility] Last Admin: 04/05/24 20:32 Dose: 20 mg Levothyroxine Sodium (Levothyroxine Sodium 75 Mcg Tablet) 75 mcg PO DAILY@0600 [facility] Last Admin: 04/06/24 05:52 Dose: 75 mcg Loratadine (Loratadine 10 Mg Tablet) 10 mg PO DAILY [facility] Last Admin: 04/06/24 09:07 Dose: 10 mg Lorazepam (Lorazepam 0.5 Mg Tablet) 0.5 mg PO TID PRN PRN Reason: Anxiety Last Admin: 04/05/24 20:31 Dose: 0.5 mg Magnesium Hydroxide (Milk Of Magnesia 30 Ml Oral.Susp) 30 ml PO DAILY PRN PRN Reason: Constipation Last Admin: 03/28/24 20:36 Dose: 30 ml Olanzapine (Olanzapine 10 Mg Tablet) 10 mg PO Q6H PRN PRN Reason: agitation Last Admin: 03/29/24 22:49 Dose: 10 mg Olanzapine (Olanzapine 2.5 Mg Tablet) 2.5 mg PO TID [facility] Last Admin: 04/06/24 09:07 Dose: 2.5 mg Oxybutynin Chloride (Oxybutynin Chloride Er 5 Mg Tab.Er.24) 15 mg PO DAILY [facility] Last Admin: 04/06/24 09:06 Dose: 15 mg Trazodone HCl (Trazodone Hcl 50 Mg Tablet) 50 mg PO BEDTIME PRN PRN Reason: sleep Last Admin: 04/04/24 20:57 Dose: 50 mg Trazodone HCl (Trazodone Hcl 25 Mg Halftab) 12.5 mg PO TID [facility] Last Admin: 04/06/24 09:05 Dose: 12.5 mg Trazodone HCl (Trazodone Hcl 50 Mg Tablet) 50 mg PO BEDTIME [facility] Last Admin: 04/05/24 20:29 Dose: 50 mg Allergies Allergies Allergy/AdvReac Type Severity Reaction Status Date / Time sulfamethoxazole Allergy Unknown Verified 03/03/24 14:32 [From Sulfamethoxazole-Trimethoprim] trimethoprim Allergy Unknown Verified 03/03/24 14:32 [From Sulfamethoxazole-Trimethoprim] Assessment & Plan Assessment & Plan (1) Major neurocognitive disorder due to Alzheimer's disease, without behavioral disturbance: Status: Acute Code(s): G30.9 - Alzheimer's disease, unspecified; F02.80 - Dementia in other diseases classified elsewhere, unspecified severity, without behavioral disturbance, psychotic disturbance, mood disturbance, and anxiety Plan Elderly female with a past history of Alzheimer's, recently in a subacute rehab due to subdural hematoma referred for exacerbation of agitation. The patient is a very poor historian unable to provide any details still very agitated. Plan 03/20 continue tx. will check ammonia and depakote level on 03/22/24 at 7am. 03/21: continue current management and treatment plan. check labs tomorrow. 03/22: Continue current management and treatment plan. Check Depakote level and ammonia on 03/23. 03/23 increase trazodone up to 25 p.o. t.i.d. to target anxiety. 03/24 keep same treatment. 03/25 keep same treatment 03/26 keep same treatment 03/27 trazodone will be lowered to 12.5 p.o. t.i.d. 03/29/24 Increase lorazepam 0.5 t.i.d. p.r.n. 03/30 keep same treatment. 03/31 keep same treatment 04/01 keep same treatment 04/02 keep same treatment 04/03 Will schedule trazodone 50mg po qhs (slept only 2 hrs.), increase olanzapine 2.5mg po TID. 04/04 more redirectable from changes of meds yesterday- 04/05- CTP 04/06- continue plan of care Reason for continued inpatient stay Substantial Risk for: rapid decompensation Time Spent With Patient Time: Total time managing care of this patient today ____ minutes.
--- NOTE | 2024-04-06 12:01 | P.PNPSI_ITS ---
Subjective Subjective Date of Service: 04/06/24 Reason For Visit: combative behaviors Subjective Notes: Conditional Voluntary Healthcare Proxy: Yes Interim History: Pt slept through the night. She was up for breakfast but later went back to bed. Per sitter who has worked with her intermittently, her gait was more unsteady and she appeared weaker. Noticed BP on low side, will check ortho VS. will hold on trazodone during the day- to avoid over sedation. Her sleep is better with nighttime schedule trazodone. Medication Compliance: Yes Diagnostics Vital Signs (24Hr): Vital Signs - 24 hr 04/05/24 20:00 04/06/24 08:00 Temperature 98.2 F 98.1 F Pulse Rate 78 58 Respiratory Rate 16 16 Blood Pressure 118/58 L 100/55 L Pulse Oximetry 91 L 95 Oxygen Delivery Method Room Air Room Air BMI result Body Mass Index 20.5 Labs 03/10/24 07:55 03/10/24 07:55 Medications Medications Current Medications Acetaminophen (Acetaminophen 325 Mg Tablet) 975 mg PO TID PRN PRN Reason: Fever Or Pain Last Admin: 03/23/24 21:15 Dose: 975 mg Al Hydroxide/Mg Hydroxide (Magnesium Hydrox/Alum Hydrox 30 Ml Oral.Susp) 30 ml PO Q6H PRN PRN Reason: Heartburn/Nausea Atorvastatin Calcium (Atorvastatin Calcium 20 Mg Tablet) 20 mg PO DAILY [facility] Last Admin: 04/06/24 09:05 Dose: 20 mg Bisacodyl (Bisacodyl 10 Mg Supp.Rect) 10 mg [place] DAILY PRN PRN Reason: Constipation Last Admin: 04/02/24 12:43 Dose: 10 mg Divalproex Sodium (Divalproex Sodium Sprinkles 125 Mg ) 250 mg PO TID [facility] Last Admin: 04/06/24 09:07 Dose: 250 mg Donepezil HCl (Donepezil Hcl 5 Mg Tablet) 5 mg PO BEDTIME [facility] Last Admin: 04/05/24 20:31 Dose: 5 mg Famotidine (Famotidine 20 Mg Tablet) 20 mg PO BEDTIME [facility] Last Admin: 04/05/24 20:32 Dose: 20 mg Levothyroxine Sodium (Levothyroxine Sodium 75 Mcg Tablet) 75 mcg PO DAILY@0600 [facility] Last Admin: 04/06/24 05:52 Dose: 75 mcg Loratadine (Loratadine 10 Mg Tablet) 10 mg PO DAILY [facility] Last Admin: 04/06/24 09:07 Dose: 10 mg Lorazepam (Lorazepam 0.5 Mg Tablet) 0.5 mg PO TID PRN PRN Reason: Anxiety Last Admin: 04/05/24 20:31 Dose: 0.5 mg Magnesium Hydroxide (Milk Of Magnesia 30 Ml Oral.Susp) 30 ml PO DAILY PRN PRN Reason: Constipation Last Admin: 03/28/24 20:36 Dose: 30 ml Olanzapine (Olanzapine 10 Mg Tablet) 10 mg PO Q6H PRN PRN Reason: agitation Last Admin: 03/29/24 22:49 Dose: 10 mg Olanzapine (Olanzapine 2.5 Mg Tablet) 2.5 mg PO TID [facility] Last Admin: 04/06/24 09:07 Dose: 2.5 mg Oxybutynin Chloride (Oxybutynin Chloride Er 5 Mg Tab.Er.24) 15 mg PO DAILY [facility] Last Admin: 04/06/24 09:06 Dose: 15 mg Trazodone HCl (Trazodone Hcl 50 Mg Tablet) 50 mg PO BEDTIME PRN PRN Reason: sleep Last Admin: 04/04/24 20:57 Dose: 50 mg Trazodone HCl (Trazodone Hcl 25 Mg Halftab) 12.5 mg PO TID [facility] Last Admin: 04/06/24 09:05 Dose: 12.5 mg Trazodone HCl (Trazodone Hcl 50 Mg Tablet) 50 mg PO BEDTIME [facility] Last Admin: 04/05/24 20:29 Dose: 50 mg Allergies Allergies Allergy/AdvReac Type Severity Reaction Status Date / Time sulfamethoxazole Allergy Unknown Verified 03/03/24 14:32 [From Sulfamethoxazole-Trimethoprim] trimethoprim Allergy Unknown Verified 03/03/24 14:32 [From Sulfamethoxazole-Trimethoprim] Assessment & Plan Assessment & Plan (1) Major neurocognitive disorder due to Alzheimer's disease, without behavioral disturbance: Status: Acute Code(s): G30.9 - Alzheimer's disease, unspecified; F02.80 - Dementia in other diseases classified elsewhere, unspecified severity, without behavioral disturbance, psychotic disturbance, mood disturbance, and anxiety Plan Elderly female with a past history of Alzheimer's, recently in a subacute rehab due to subdural hematoma referred for exacerbation of agitation. The patient is a very poor historian unable to provide any details still very agitated. Plan 03/20 continue tx. will check ammonia and depakote level on 03/22/24 at 7am. 03/21: continue current management and treatment plan. check labs tomorrow. 03/22: Continue current management and treatment plan. Check Depakote level and ammonia on 03/23. 03/23 increase trazodone up to 25 p.o. t.i.d. to target anxiety. 03/24 keep same treatment. 03/25 keep same treatment 03/26 keep same treatment 03/27 trazodone will be lowered to 12.5 p.o. t.i.d. 03/29/24 Increase lorazepam 0.5 t.i.d. p.r.n. 03/30 keep same treatment. 03/31 keep same treatment 04/01 keep same treatment 04/02 keep same treatment 04/03 Will schedule trazodone 50mg po qhs (slept only 2 hrs.), increase olanzapine 2.5mg po TID. 04/04 more redirectable from changes of meds yesterday- 04/05- CTP 04/06 BP lower side, pending ortho VS. trazdone held as pt more somnolent and unsteady on feet. Reason for continued inpatient stay Substantial Risk for: inability to function Time Spent With Patient Time: Total time managing care of this patient today ____ minutes.
[2024-04-06 16:00] VITALS: BP 130/60; PULSE 72
[2024-04-06 19:00] VITALS: BP 140/91; BP 165/74; BP 196/102; PULSE 76; PULSE 79; PULSE 82
[2024-04-06 20:00] VITALS: RESP 16; TEMP 36.6; O2SAT 98
[2024-04-06] MEDS: Famotidine 20 MG TABLET PO (20:02)
[2024-04-06] MEDS: traZODone HCL 50 MG TABLET PO (20:02)
[2024-04-06] MEDS: LORazepam 0.5 MG TABLET PO (20:02)
[2024-04-06] MEDS: Donepezil HCl 5 MG TABLET PO (20:03)
[2024-04-07] MEDS: Levothyroxine Sodium 75 MCG TABLET PO (05:37)
[2024-04-07 08:10] VITALS: BP 120/60; PULSE 62; RESP 18; TEMP 36.6; O2SAT 96
[2024-04-07] MEDS: oxyBUTYnin chloride ER 5 MG TAB.ER.24 15 MG PO (08:26)
[2024-04-07] MEDS: Loratadine 10 MG TABLET PO (08:26)
[2024-04-07] MEDS: Divalproex Sodium Sprinkles 125 MG CAP.DR.SPR 250 MG PO ×3 (08:26→20:29)
[2024-04-07] MEDS: Atorvastatin Calcium 20 MG TABLET PO (08:26)
[2024-04-07] MEDS: OLANZapine 2.5 MG TABLET PO ×3 (08:26→20:30)
--- NOTE | 2024-04-07 11:42 | P.PNPSI_ITS ---
Subjective Subjective Date of Service: 04/07/24 Reason For Visit: combative behaviors Subjective Notes: Conditional Voluntary Interim History: The nursing staff reported the patient remains on one-to-one, slept 8 hours. Yesterday she had orthostatic changes but so far it is has been negative so we discontinued today. On interview the patient is pleasantly confused. Mental Status Exam Mental Status Exam Patient Appearance: Appropriate Patient Orientation: Person Level of Consciousness: Awake Patient Behavior: Guarded and Passive Mood Description: Withdrawn Affect Description: Constricted Patient Cognition Impaired: Yes Ability to Follow Directions: Good Speech Pattern: Clear Hallucinations: None Delusions: Ideas of Reference Thought Process: Distracted and Slowed Thinking Thought Content: positive for [place] and positive for Poverty of Content Judgement: Fair Diagnostics Vital Signs (24Hr): Vital Signs - 24 hr 04/06/24 16:00 04/06/24 19:00 04/06/24 19:00 Temperature Pulse Rate 72 76 79 Respiratory Rate Blood Pressure 130/60 165/74 H 140/91 H Pulse Oximetry Oxygen Delivery Method 04/06/24 19:00 04/06/24 20:00 04/07/24 08:10 Temperature 97.8 F 97.8 F Pulse Rate 82 62 Respiratory Rate 16 18 Blood Pressure 196/102 H 120/60 Pulse Oximetry 98 96 Oxygen Delivery Method Room Air Room Air BMI result Body Mass Index 20.5 Labs 03/10/24 07:55 03/10/24 07:55 Labs: Laboratory Results - last 48 hr 04/03/24 16:10 Ammonia 23 Medications Medications Current Medications Acetaminophen (Acetaminophen 325 Mg Tablet) 975 mg PO TID PRN PRN Reason: Fever Or Pain Last Admin: 03/23/24 21:15 Dose: 975 mg Al Hydroxide/Mg Hydroxide (Magnesium Hydrox/Alum Hydrox 30 Ml Oral.Susp) 30 ml PO Q6H PRN PRN Reason: Heartburn/Nausea Atorvastatin Calcium (Atorvastatin Calcium 20 Mg Tablet) 20 mg PO DAILY [facility] Last Admin: 04/07/24 08:26 Dose: 20 mg Bisacodyl (Bisacodyl 10 Mg Supp.Rect) 10 mg [place] DAILY PRN PRN Reason: Constipation Last Admin: 04/02/24 12:43 Dose: 10 mg Divalproex Sodium (Divalproex Sodium Sprinkles 125 Mg ) 250 mg PO TID [facility] Last Admin: 04/07/24 08:26 Dose: 250 mg Donepezil HCl (Donepezil Hcl 5 Mg Tablet) 5 mg PO BEDTIME [facility] Last Admin: 04/06/24 20:03 Dose: 5 mg Famotidine (Famotidine 20 Mg Tablet) 20 mg PO BEDTIME [facility] Last Admin: 04/06/24 20:02 Dose: 20 mg Levothyroxine Sodium (Levothyroxine Sodium 75 Mcg Tablet) 75 mcg PO DAILY@0600 [facility] Last Admin: 04/07/24 05:37 Dose: 75 mcg Loratadine (Loratadine 10 Mg Tablet) 10 mg PO DAILY [facility] Last Admin: 04/07/24 08:26 Dose: 10 mg Lorazepam (Lorazepam 0.5 Mg Tablet) 0.5 mg PO TID PRN PRN Reason: Anxiety Last Admin: 04/06/24 20:02 Dose: 0.5 mg Magnesium Hydroxide (Milk Of Magnesia 30 Ml Oral.Susp) 30 ml PO DAILY PRN PRN Reason: Constipation Last Admin: 03/28/24 20:36 Dose: 30 ml Olanzapine (Olanzapine 2.5 Mg Tablet) 2.5 mg PO TID [facility] Last Admin: 04/07/24 08:26 Dose: 2.5 mg Olanzapine (Olanzapine 5 Mg Tablet) 5 mg PO Q6H PRN PRN Reason: agitation Oxybutynin Chloride (Oxybutynin Chloride Er 5 Mg Tab.Er.24) 15 mg PO DAILY [facility] Last Admin: 04/07/24 08:26 Dose: 15 mg Trazodone HCl (Trazodone Hcl 50 Mg Tablet) 50 mg PO BEDTIME PRN PRN Reason: sleep Last Admin: 04/04/24 20:57 Dose: 50 mg Trazodone HCl (Trazodone Hcl 50 Mg Tablet) 50 mg PO BEDTIME [facility] Last Admin: 04/06/24 20:02 Dose: 50 mg Allergies Allergies Allergy/AdvReac Type Severity Reaction Status Date / Time sulfamethoxazole Allergy Unknown Verified 03/03/24 14:32 [From Sulfamethoxazole-Trimethoprim] trimethoprim Allergy Unknown Verified 03/03/24 14:32 [From Sulfamethoxazole-Trimethoprim] Assessment & Plan Assessment & Plan (1) Major neurocognitive disorder due to Alzheimer's disease, without behavioral disturbance: Status: Acute Code(s): G30.9 - Alzheimer's disease, unspecified; F02.80 - Dementia in other diseases classified elsewhere, unspecified severity, without behavioral disturbance, psychotic disturbance, mood disturbance, and anxiety Plan Elderly female with a past history of Alzheimer's, recently in a subacute rehab due to subdural hematoma referred for exacerbation of agitation. The patient is a very poor historian unable to provide any details still very agitated. Plan 03/20 continue tx. will check ammonia and depakote level on 03/22/24 at 7am. 03/21: continue current management and treatment plan. check labs tomorrow. 03/22: Continue current management and treatment plan. Check Depakote level and ammonia on 03/23. 03/23 increase trazodone up to 25 p.o. t.i.d. to target anxiety. 03/24 keep same treatment. 03/25 keep same treatment 03/26 keep same treatment 03/27 trazodone will be lowered to 12.5 p.o. t.i.d. 03/29/24 Increase lorazepam 0.5 t.i.d. p.r.n. 03/30 keep same treatment. 03/31 keep same treatment 04/01 keep same treatment 04/02 keep same treatment 04/03 Will schedule trazodone 50mg po qhs (slept only 2 hrs.), increase olanzapine 2.5mg po TID. 04/04 more redirectable from changes of meds yesterday- 04/05- CTP 04/06- continue plan of care 04/07 continue same treatment Reason for continued inpatient stay Substantial Risk for: inability to function, rapid decompensation and med/psych decompensation Time Spent With Patient Time: Total time managing care of this patient today __20__ minutes.
[2024-04-07 20:00] VITALS: BP 123/64; PULSE 85; TEMP 36.4; O2SAT 94
[2024-04-07] MEDS: Famotidine 20 MG TABLET PO (20:29)
[2024-04-07] MEDS: traZODone HCL 50 MG TABLET PO (20:30)
[2024-04-07] MEDS: Donepezil HCl 5 MG TABLET PO (20:30)
[2024-04-08] MEDS: Levothyroxine Sodium 75 MCG TABLET PO (04:57)
[2024-04-08] MEDS: Atorvastatin Calcium 20 MG TABLET PO (08:33)
[2024-04-08] MEDS: Loratadine 10 MG TABLET PO (08:33)
[2024-04-08] MEDS: OLANZapine 2.5 MG TABLET PO ×3 (08:33→20:13)
[2024-04-08] MEDS: Divalproex Sodium Sprinkles 125 MG CAP.DR.SPR 250 MG PO ×3 (08:33→20:12)
[2024-04-08] MEDS: oxyBUTYnin chloride ER 5 MG TAB.ER.24 15 MG PO (08:33)
[2024-04-08 08:50] VITALS: BP 120/68; PULSE 79; RESP 18; TEMP 36.4; O2SAT 95
--- NOTE | 2024-04-08 15:08 | HO.PSYCHPN ---
Subjective Subjective Date of Service: 04/08/24 Reason For Visit: combative behaviors Subjective Notes: Conditional Voluntary Healthcare Proxy: Yes Interim History: The nursing staff reported that the patient has been pleasantly confused, easily redirectable. On interview, she was confused but pleasant on approach, waiting for placment. Mental Status Exam Mental Status Exam Patient Appearance: Appropriate Patient Orientation: Person Level of Consciousness: Awake Patient Behavior: Guarded and Passive Mood Description: Withdrawn Affect Description: Constricted Patient Cognition Impaired: Yes Ability to Follow Directions: Fair Speech Pattern: Clear Hallucinations: None Delusions: Ideas of Reference Thought Process: Distracted and Slowed Thinking Thought Content: positive for [place] and positive for Poverty of Content Judgement: Poor Diagnostics Vital Signs (24Hr): Vital Signs - 24 hr 04/07/24 20:00 04/08/24 08:50 Temperature 97.5 F 97.5 F Pulse Rate 85 79 Respiratory Rate 18 Blood Pressure 123/64 120/68 Pulse Oximetry 94 95 Oxygen Delivery Method Room Air Room Air BMI result Body Mass Index 20.5 Labs 03/10/24 07:55 03/10/24 07:55 Medications Medications Current Medications Acetaminophen (Acetaminophen 325 Mg Tablet) 975 mg PO TID PRN PRN Reason: Fever Or Pain Last Admin: 03/23/24 21:15 Dose: 975 mg Al Hydroxide/Mg Hydroxide (Magnesium Hydrox/Alum Hydrox 30 Ml Oral.Susp) 30 ml PO Q6H PRN PRN Reason: Heartburn/Nausea Atorvastatin Calcium (Atorvastatin Calcium 20 Mg Tablet) 20 mg PO DAILY [facility] Last Admin: 04/08/24 08:33 Dose: 20 mg Bisacodyl (Bisacodyl 10 Mg Supp.Rect) 10 mg [place] DAILY PRN PRN Reason: Constipation Last Admin: 04/02/24 12:43 Dose: 10 mg Divalproex Sodium (Divalproex Sodium Sprinkles 125 Mg Camilo.) 250 mg PO TID [facility] Last Admin: 04/08/24 14:17 Dose: 250 mg Donepezil HCl (Donepezil Hcl 5 Mg Tablet) 5 mg PO BEDTIME [facility] Last Admin: 04/07/24 20:30 Dose: 5 mg Famotidine (Famotidine 20 Mg Tablet) 20 mg PO BEDTIME [facility] Last Admin: 04/07/24 20:29 Dose: 20 mg Levothyroxine Sodium (Levothyroxine Sodium 75 Mcg Tablet) 75 mcg PO DAILY@0600 [facility] Last Admin: 04/08/24 04:57 Dose: 75 mcg Loratadine (Loratadine 10 Mg Tablet) 10 mg PO DAILY [facility] Last Admin: 04/08/24 08:33 Dose: 10 mg Lorazepam (Lorazepam 0.5 Mg Tablet) 0.5 mg PO TID PRN PRN Reason: Anxiety Last Admin: 04/06/24 20:02 Dose: 0.5 mg Magnesium Hydroxide (Milk Of Magnesia 30 Ml Oral.Susp) 30 ml PO DAILY PRN PRN Reason: Constipation Last Admin: 03/28/24 20:36 Dose: 30 ml Olanzapine (Olanzapine 2.5 Mg Tablet) 2.5 mg PO TID [facility] Last Admin: 04/08/24 14:16 Dose: 2.5 mg Olanzapine (Olanzapine 5 Mg Tablet) 5 mg PO Q6H PRN PRN Reason: agitation Oxybutynin Chloride (Oxybutynin Chloride Er 5 Mg Tab.Er.24) 15 mg PO DAILY [facility] Last Admin: 04/08/24 08:33 Dose: 15 mg Trazodone HCl (Trazodone Hcl 50 Mg Tablet) 50 mg PO BEDTIME PRN PRN Reason: sleep Last Admin: 04/04/24 20:57 Dose: 50 mg Trazodone HCl (Trazodone Hcl 50 Mg Tablet) 50 mg PO BEDTIME [facility] Last Admin: 04/07/24 20:30 Dose: 50 mg Allergies Allergies Allergy/AdvReac Type Severity Reaction Status Date / Time sulfamethoxazole Allergy Unknown Verified 03/03/24 14:32 [From Sulfamethoxazole-Trimethoprim] trimethoprim Allergy Unknown Verified 03/03/24 14:32 [From Sulfamethoxazole-Trimethoprim] Assessment & Plan Assessment & Plan (1) Major neurocognitive disorder due to Alzheimer's disease, without behavioral disturbance: Status: Acute Code(s): G30.9 - Alzheimer's disease, unspecified; F02.80 - Dementia in other diseases classified elsewhere, unspecified severity, without behavioral disturbance, psychotic disturbance, mood disturbance, and anxiety Plan Elderly female with a past history of Alzheimer's, recently in a subacute rehab due to subdural hematoma referred for exacerbation of agitation. The patient is a very poor historian unable to provide any details still very agitated. Plan 03/20 continue tx. will check ammonia and depakote level on 03/22/24 at 7am. 03/21: continue current management and treatment plan. check labs tomorrow. 03/22: Continue current management and treatment plan. Check Depakote level and ammonia on 03/23. 03/23 increase trazodone up to 25 p.o. t.i.d. to target anxiety. 03/24 keep same treatment. 03/25 keep same treatment 03/26 keep same treatment 03/27 trazodone will be lowered to 12.5 p.o. t.i.d. 03/29/24 Increase lorazepam 0.5 t.i.d. p.r.n. 03/30 keep same treatment. 03/31 keep same treatment 04/01 keep same treatment 04/02 keep same treatment 04/03 Will schedule trazodone 50mg po qhs (slept only 2 hrs.), increase olanzapine 2.5mg po TID. 04/04 more redirectable from changes of meds yesterday- 04/05- CTP 04/06- continue plan of care 04/07 continue same treatment 04/08 keep same treatment Reason for continued inpatient stay Substantial Risk for: inability to function, rapid decompensation and med/psych decompensation Time Spent With Patient Time: Total time managing care of this patient today __20__ minutes.
[2024-04-08 20:10] VITALS: BP 160/86; PULSE 86; RESP 17; TEMP 36.9; O2SAT 96
[2024-04-08] MEDS: Famotidine 20 MG TABLET PO (20:12)
[2024-04-08] MEDS: Donepezil HCl 5 MG TABLET PO (20:13)
[2024-04-08] MEDS: traZODone HCL 50 MG TABLET PO (20:13)
[2024-04-09] MEDS: Levothyroxine Sodium 75 MCG TABLET PO (06:02)
[2024-04-09 07:00] VITALS: BMI 19.7
[2024-04-09 08:00] VITALS: BP 139/67; PULSE 73; RESP 18; TEMP 36.2; O2SAT 96
[2024-04-09] MEDS: Divalproex Sodium Sprinkles 125 MG CAP.DR.SPR 250 MG PO ×3 (08:49→20:41)
[2024-04-09] MEDS: oxyBUTYnin chloride ER 5 MG TAB.ER.24 15 MG PO (08:49)
[2024-04-09] MEDS: Atorvastatin Calcium 20 MG TABLET PO (08:49)
[2024-04-09] MEDS: OLANZapine 2.5 MG TABLET PO ×3 (08:50→20:41)
[2024-04-09] MEDS: Loratadine 10 MG TABLET PO (08:50)
--- NOTE | 2024-04-09 15:28 | HO.PSYCHPN ---
Subjective Subjective Date of Service: 04/09/24 Reason For Visit: combative behaviors Subjective Notes: Conditional Voluntary Interim History: The nursing staff reported the patient had been compliant with treatment pleasantly confused. On interview the patient denies new symptoms easily redirectable. Mental Status Exam Mental Status Exam Patient Appearance: Appropriate Patient Orientation: Person Level of Consciousness: Awake Patient Behavior: Guarded and Passive Mood Description: Withdrawn Affect Description: Constricted Patient Cognition Impaired: Yes Ability to Follow Directions: Good Speech Pattern: Clear Hallucinations: None Delusions: Ideas of Reference Thought Process: Distracted and Slowed Thinking Thought Content: positive for [place] and positive for Poverty of Content Judgement: Fair Diagnostics Vital Signs (24Hr): Vital Signs - 24 hr 04/08/24 20:10 04/09/24 08:00 Temperature 98.4 F 97.2 F Pulse Rate 86 73 Respiratory Rate 17 18 Blood Pressure 160/86 H 139/67 Pulse Oximetry 96 96 Oxygen Delivery Method Room Air Room Air BMI result Body Mass Index 20.5 Labs 03/10/24 07:55 03/10/24 07:55 Medications Medications Current Medications Acetaminophen (Acetaminophen 325 Mg Tablet) 975 mg PO TID PRN PRN Reason: Fever Or Pain Last Admin: 03/23/24 21:15 Dose: 975 mg Al Hydroxide/Mg Hydroxide (Magnesium Hydrox/Alum Hydrox 30 Ml Oral.Susp) 30 ml PO Q6H PRN PRN Reason: Heartburn/Nausea Atorvastatin Calcium (Atorvastatin Calcium 20 Mg Tablet) 20 mg PO DAILY [facility] Last Admin: 04/09/24 08:49 Dose: 20 mg Bisacodyl (Bisacodyl 10 Mg Supp.Rect) 10 mg [place] DAILY PRN PRN Reason: Constipation Last Admin: 04/02/24 12:43 Dose: 10 mg Divalproex Sodium (Divalproex Sodium Sprinkles 125 Mg Cap.DrMaria FernandaSpr) 250 mg PO TID [facility] Last Admin: 04/09/24 14:24 Dose: 250 mg Donepezil HCl (Donepezil Hcl 5 Mg Tablet) 5 mg PO BEDTIME [facility] Last Admin: 04/08/24 20:13 Dose: 5 mg Famotidine (Famotidine 20 Mg Tablet) 20 mg PO BEDTIME [facility] Last Admin: 04/08/24 20:12 Dose: 20 mg Levothyroxine Sodium (Levothyroxine Sodium 75 Mcg Tablet) 75 mcg PO DAILY@0600 [facility] Last Admin: 04/09/24 06:02 Dose: 75 mcg Loratadine (Loratadine 10 Mg Tablet) 10 mg PO DAILY [facility] Last Admin: 04/09/24 08:50 Dose: 10 mg Lorazepam (Lorazepam 0.5 Mg Tablet) 0.5 mg PO TID PRN PRN Reason: Anxiety Last Admin: 04/06/24 20:02 Dose: 0.5 mg Magnesium Hydroxide (Milk Of Magnesia 30 Ml Oral.Susp) 30 ml PO DAILY PRN PRN Reason: Constipation Last Admin: 03/28/24 20:36 Dose: 30 ml Olanzapine (Olanzapine 2.5 Mg Tablet) 2.5 mg PO TID [facility] Last Admin: 04/09/24 14:24 Dose: 2.5 mg Olanzapine (Olanzapine 5 Mg Tablet) 5 mg PO Q6H PRN PRN Reason: agitation Oxybutynin Chloride (Oxybutynin Chloride Er 5 Mg Tab.Er.24) 15 mg PO DAILY [facility] Last Admin: 04/09/24 08:49 Dose: 15 mg Trazodone HCl (Trazodone Hcl 50 Mg Tablet) 50 mg PO BEDTIME PRN PRN Reason: sleep Last Admin: 04/04/24 20:57 Dose: 50 mg Trazodone HCl (Trazodone Hcl 50 Mg Tablet) 50 mg PO BEDTIME [facility] Last Admin: 04/08/24 20:13 Dose: 50 mg Allergies Allergies Allergy/AdvReac Type Severity Reaction Status Date / Time sulfamethoxazole Allergy Unknown Verified 03/03/24 14:32 [From Sulfamethoxazole-Trimethoprim] trimethoprim Allergy Unknown Verified 03/03/24 14:32 [From Sulfamethoxazole-Trimethoprim] Assessment & Plan Assessment & Plan (1) Major neurocognitive disorder due to Alzheimer's disease, without behavioral disturbance: Status: Acute Code(s): G30.9 - Alzheimer's disease, unspecified; F02.80 - Dementia in other diseases classified elsewhere, unspecified severity, without behavioral disturbance, psychotic disturbance, mood disturbance, and anxiety Plan Elderly female with a past history of Alzheimer's, recently in a subacute rehab due to subdural hematoma referred for exacerbation of agitation. The patient is a very poor historian unable to provide any details still very agitated. Plan 03/20 continue tx. will check ammonia and depakote level on 03/22/24 at 7am. 03/21: continue current management and treatment plan. check labs tomorrow. 03/22: Continue current management and treatment plan. Check Depakote level and ammonia on 03/23. 03/23 increase trazodone up to 25 p.o. t.i.d. to target anxiety. 03/24 keep same treatment. 03/25 keep same treatment 03/26 keep same treatment 03/27 trazodone will be lowered to 12.5 p.o. t.i.d. 03/29/24 Increase lorazepam 0.5 t.i.d. p.r.n. 03/30 keep same treatment. 03/31 keep same treatment 04/01 keep same treatment 04/02 keep same treatment 04/03 Will schedule trazodone 50mg po qhs (slept only 2 hrs.), increase olanzapine 2.5mg po TID. 04/04 more redirectable from changes of meds yesterday- 04/05- CTP 04/06- continue plan of care 04/07 continue same treatment 04/08 keep same treatment 04/09 keep same treatment Reason for continued inpatient stay Substantial Risk for: inability to function, rapid decompensation and med/psych decompensation Time Spent With Patient Time: Total time managing care of this patient today __20__ minutes.
[2024-04-09] MEDS: LORazepam 0.5 MG TABLET PO (16:41)
--- NOTE | 2024-04-09 18:36 | PC.NURSE ---
Patient lowered to the floor by [facility] at 18:30. No injury noted. VS:143/77-100, T 97.2, O2sat 96% on RA. Pt denies pain. Lionel continue to monitor.
[2024-04-09 19:34] VITALS: BP 146/77; PULSE 83; TEMP 36.1; O2SAT 94
[2024-04-09] MEDS: Famotidine 20 MG TABLET PO (20:41)
[2024-04-09] MEDS: traZODone HCL 50 MG TABLET PO (20:41)
[2024-04-09] MEDS: Donepezil HCl 5 MG TABLET PO (20:41)
[2024-04-10] MEDS: Levothyroxine Sodium 75 MCG TABLET PO (05:32)
[2024-04-10 08:40] VITALS: BP 112/60; PULSE 70; RESP 16; TEMP 35.9; O2SAT 90
[2024-04-10] MEDS: oxyBUTYnin chloride ER 5 MG TAB.ER.24 15 MG PO (08:43)
[2024-04-10] MEDS: Atorvastatin Calcium 20 MG TABLET PO (08:43)
[2024-04-10] MEDS: OLANZapine 2.5 MG TABLET PO ×3 (08:43→22:16)
[2024-04-10] MEDS: Loratadine 10 MG TABLET PO (08:43)
[2024-04-10] MEDS: Divalproex Sodium Sprinkles 125 MG CAP.DR.SPR 250 MG PO ×3 (08:43→22:18)
--- NOTE | 2024-04-10 13:33 | HO.PSYCHPN ---
Subjective Subjective Date of Service: 04/10/24 Reason For Visit: combative behaviors Subjective Notes: Conditional Voluntary Interim History: The nursing staff reported the patient had been very confused, she fell and her CT scan was negative. On interview the patient denies new symptoms looks pleasantly confused. Mental Status Exam Mental Status Exam Patient Appearance: Appropriate Patient Orientation: Person Level of Consciousness: Awake Patient Behavior: Guarded and Passive Mood Description: Withdrawn Affect Description: Constricted Patient Cognition Impaired: Yes Ability to Follow Directions: Good Speech Pattern: Clear Hallucinations: None Delusions: Ideas of Reference Thought Process: Distracted and Slowed Thinking Thought Content: positive for [place], positive for Poverty of Content and positive for Thought Blocking Judgement: Poor Diagnostics Vital Signs (24Hr): Vital Signs - 24 hr 04/09/24 19:34 04/10/24 08:40 Temperature 96.9 F 96.6 F L Pulse Rate 83 70 Respiratory Rate 16 Blood Pressure 146/77 H 112/60 Pulse Oximetry 94 90 L Oxygen Delivery Method Room Air Room Air BMI result Body Mass Index 19.7 Labs 03/10/24 07:55 03/10/24 07:55 Medications Medications Current Medications Acetaminophen (Acetaminophen 325 Mg Tablet) 975 mg PO TID PRN PRN Reason: Fever Or Pain Last Admin: 03/23/24 21:15 Dose: 975 mg Al Hydroxide/Mg Hydroxide (Magnesium Hydrox/Alum Hydrox 30 Ml Oral.Susp) 30 ml PO Q6H PRN PRN Reason: Heartburn/Nausea Atorvastatin Calcium (Atorvastatin Calcium 20 Mg Tablet) 20 mg PO DAILY [facility] Last Admin: 04/10/24 08:43 Dose: 20 mg Bisacodyl (Bisacodyl 10 Mg Supp.Rect) 10 mg [place] DAILY PRN PRN Reason: Constipation Last Admin: 04/02/24 12:43 Dose: 10 mg Divalproex Sodium (Divalproex Sodium Sprinkles 125 Mg Camilo.) 250 mg PO TID [facility] Last Admin: 04/10/24 08:43 Dose: 250 mg Donepezil HCl (Donepezil Hcl 5 Mg Tablet) 5 mg PO BEDTIME [facility] Last Admin: 04/09/24 20:41 Dose: 5 mg Famotidine (Famotidine 20 Mg Tablet) 20 mg PO BEDTIME [facility] Last Admin: 04/09/24 20:41 Dose: 20 mg Levothyroxine Sodium (Levothyroxine Sodium 75 Mcg Tablet) 75 mcg PO DAILY@0600 [facility] Last Admin: 04/10/24 05:32 Dose: 75 mcg Loratadine (Loratadine 10 Mg Tablet) 10 mg PO DAILY [facility] Last Admin: 04/10/24 08:43 Dose: 10 mg Lorazepam (Lorazepam 0.5 Mg Tablet) 0.5 mg PO TID PRN PRN Reason: Anxiety Last Admin: 04/09/24 16:41 Dose: 0.5 mg Magnesium Hydroxide (Milk Of Magnesia 30 Ml Oral.Susp) 30 ml PO DAILY PRN PRN Reason: Constipation Last Admin: 03/28/24 20:36 Dose: 30 ml Olanzapine (Olanzapine 2.5 Mg Tablet) 2.5 mg PO TID [facility] Last Admin: 04/10/24 08:43 Dose: 2.5 mg Olanzapine (Olanzapine 5 Mg Tablet) 5 mg PO Q6H PRN PRN Reason: agitation Oxybutynin Chloride (Oxybutynin Chloride Er 5 Mg Tab.Er.24) 15 mg PO DAILY [facility] Last Admin: 04/10/24 08:43 Dose: 15 mg Trazodone HCl (Trazodone Hcl 50 Mg Tablet) 50 mg PO BEDTIME PRN PRN Reason: sleep Last Admin: 04/04/24 20:57 Dose: 50 mg Trazodone HCl (Trazodone Hcl 50 Mg Tablet) 50 mg PO BEDTIME [facility] Last Admin: 04/09/24 20:41 Dose: 50 mg Allergies Allergies Allergy/AdvReac Type Severity Reaction Status Date / Time sulfamethoxazole Allergy Unknown Verified 03/03/24 14:32 [From Sulfamethoxazole-Trimethoprim] trimethoprim Allergy Unknown Verified 03/03/24 14:32 [From Sulfamethoxazole-Trimethoprim] Assessment & Plan Assessment & Plan (1) Major neurocognitive disorder due to Alzheimer's disease, without behavioral disturbance: Status: Acute Code(s): G30.9 - Alzheimer's disease, unspecified; F02.80 - Dementia in other diseases classified elsewhere, unspecified severity, without behavioral disturbance, psychotic disturbance, mood disturbance, and anxiety Plan Elderly female with a past history of Alzheimer's, recently in a subacute rehab due to subdural hematoma referred for exacerbation of agitation. The patient is a very poor historian unable to provide any details still very agitated. Plan 03/20 continue tx. will check ammonia and depakote level on 03/22/24 at 7am. 03/21: continue current management and treatment plan. check labs tomorrow. 03/22: Continue current management and treatment plan. Check Depakote level and ammonia on 03/23. 03/23 increase trazodone up to 25 p.o. t.i.d. to target anxiety. 03/24 keep same treatment. 03/25 keep same treatment 03/26 keep same treatment 03/27 trazodone will be lowered to 12.5 p.o. t.i.d. 03/29/24 Increase lorazepam 0.5 t.i.d. p.r.n. 03/30 keep same treatment. 03/31 keep same treatment 04/01 keep same treatment 04/02 keep same treatment 04/03 Will schedule trazodone 50mg po qhs (slept only 2 hrs.), increase olanzapine 2.5mg po TID. 04/04 more redirectable from changes of meds yesterday- 04/05- CTP 04/06- continue plan of care 04/07 continue same treatment 04/08 keep same treatment 04/09 keep same treatment 04/10 paperwork for information of healthcare proxy was done. Reason for continued inpatient stay Substantial Risk for: inability to function, rapid decompensation and med/psych decompensation Time Spent With Patient Time: Total time managing care of this patient today _20___ minutes.
[2024-04-10] MEDS: LORazepam 0.5 MG TABLET PO (17:09)
[2024-04-10 20:00] VITALS: BP 112/80; PULSE 52; RESP 16; TEMP 36.1; O2SAT 95
[2024-04-10] MEDS: Famotidine 20 MG TABLET PO (22:16)
[2024-04-10] MEDS: traZODone HCL 50 MG TABLET PO (22:17)
[2024-04-10] MEDS: Donepezil HCl 5 MG TABLET PO (22:17)
[2024-04-11] MEDS: Levothyroxine Sodium 75 MCG TABLET PO (06:44)
[2024-04-11 08:00] VITALS: BP 131/87; PULSE 68; RESP 14; TEMP 36.4; O2SAT 98
[2024-04-11] MEDS: oxyBUTYnin chloride ER 5 MG TAB.ER.24 15 MG PO (08:20)
[2024-04-11] MEDS: Divalproex Sodium Sprinkles 125 MG CAP.DR.SPR 250 MG PO ×3 (08:21→20:28)
[2024-04-11] MEDS: Atorvastatin Calcium 20 MG TABLET PO (08:21)
[2024-04-11] MEDS: Loratadine 10 MG TABLET PO (08:21)
[2024-04-11] MEDS: OLANZapine 2.5 MG TABLET PO ×3 (08:21→20:27)
--- NOTE | 2024-04-11 11:16 | HO.PSYCHPN ---
Subjective Subjective Date of Service: 04/11/24 Reason For Visit: combative behaviors Subjective Notes: Conditional Voluntary Interim History: Patient was seen and discussed in rounds today. Records and plans were reviewed. She continues to be confused and that has been increasing. Eating and sleeping adequately. She would not awake for me with 2 tries. No reports from nursing about changes. Review of Systems Review of Systems Yes Unobtainable due to mental status Mental Status Exam Mental Status Exam Narrative: Could not examine Diagnostics Vital Signs (24Hr): Vital Signs - 24 hr 04/10/24 20:00 04/11/24 08:00 Temperature 97 F 97.5 F Pulse Rate 52 68 Respiratory Rate 16 14 Blood Pressure 112/80 131/87 Pulse Oximetry 95 98 Oxygen Delivery Method Room Air Room Air BMI result Body Mass Index 19.7 Labs 03/10/24 07:55 03/10/24 07:55 Medications Medications Current Medications Acetaminophen (Acetaminophen 325 Mg Tablet) 975 mg PO TID PRN PRN Reason: Fever Or Pain Last Admin: 03/23/24 21:15 Dose: 975 mg Al Hydroxide/Mg Hydroxide (Magnesium Hydrox/Alum Hydrox 30 Ml Oral.Susp) 30 ml PO Q6H PRN PRN Reason: Heartburn/Nausea Atorvastatin Calcium (Atorvastatin Calcium 20 Mg Tablet) 20 mg PO DAILY [facility] Last Admin: 04/11/24 08:21 Dose: 20 mg Bisacodyl (Bisacodyl 10 Mg Supp.Rect) 10 mg [place] DAILY PRN PRN Reason: Constipation Last Admin: 04/02/24 12:43 Dose: 10 mg Divalproex Sodium (Divalproex Sodium Sprinkles 125 Mg ) 250 mg PO TID [facility] Last Admin: 04/11/24 08:21 Dose: 250 mg Donepezil HCl (Donepezil Hcl 5 Mg Tablet) 5 mg PO BEDTIME [facility] Last Admin: 04/10/24 22:17 Dose: 5 mg Famotidine (Famotidine 20 Mg Tablet) 20 mg PO BEDTIME [facility] Last Admin: 04/10/24 22:16 Dose: 20 mg Levothyroxine Sodium (Levothyroxine Sodium 75 Mcg Tablet) 75 mcg PO DAILY@0600 [facility] Last Admin: 04/11/24 06:44 Dose: 75 mcg Loratadine (Loratadine 10 Mg Tablet) 10 mg PO DAILY [facility] Last Admin: 04/11/24 08:21 Dose: 10 mg Lorazepam (Lorazepam 0.5 Mg Tablet) 0.5 mg PO TID PRN PRN Reason: Anxiety Last Admin: 04/10/24 17:09 Dose: 0.5 mg Magnesium Hydroxide (Milk Of Magnesia 30 Ml Oral.Susp) 30 ml PO DAILY PRN PRN Reason: Constipation Last Admin: 03/28/24 20:36 Dose: 30 ml Olanzapine (Olanzapine 2.5 Mg Tablet) 2.5 mg PO TID [facility] Last Admin: 04/11/24 08:21 Dose: 2.5 mg Olanzapine (Olanzapine 5 Mg Tablet) 5 mg PO Q6H PRN PRN Reason: agitation Oxybutynin Chloride (Oxybutynin Chloride Er 5 Mg Tab.Er.24) 15 mg PO DAILY [facility] Last Admin: 04/11/24 08:20 Dose: 15 mg Trazodone HCl (Trazodone Hcl 50 Mg Tablet) 50 mg PO BEDTIME PRN PRN Reason: sleep Last Admin: 04/04/24 20:57 Dose: 50 mg Trazodone HCl (Trazodone Hcl 50 Mg Tablet) 50 mg PO BEDTIME [facility] Last Admin: 04/10/24 22:17 Dose: 50 mg Allergies Allergies Allergy/AdvReac Type Severity Reaction Status Date / Time sulfamethoxazole Allergy Unknown Verified 03/03/24 14:32 [From Sulfamethoxazole-Trimethoprim] trimethoprim Allergy Unknown Verified 03/03/24 14:32 [From Sulfamethoxazole-Trimethoprim] Assessment & Plan Assessment & Plan (1) Major neurocognitive disorder due to Alzheimer's disease, without behavioral disturbance: Status: Acute Code(s): G30.9 - Alzheimer's disease, unspecified; F02.80 - Dementia in other diseases classified elsewhere, unspecified severity, without behavioral disturbance, psychotic disturbance, mood disturbance, and anxiety Plan Elderly female with a past history of Alzheimer's, recently in a subacute rehab due to subdural hematoma referred for exacerbation of agitation. The patient is a very poor historian unable to provide any details still very agitated. Plan 03/20 continue tx. will check ammonia and depakote level on 03/22/24 at 7am. 03/21: continue current management and treatment plan. check labs tomorrow. 03/22: Continue current management and treatment plan. Check Depakote level and ammonia on 03/23. 03/23 increase trazodone up to 25 p.o. t.i.d. to target anxiety. 03/24 keep same treatment. 03/25 keep same treatment 03/26 keep same treatment 03/27 trazodone will be lowered to 12.5 p.o. t.i.d. 03/29/24 Increase lorazepam 0.5 t.i.d. p.r.n. 03/30 keep same treatment. 03/31 keep same treatment 04/01 keep same treatment 04/02 keep same treatment 04/03 Will schedule trazodone 50mg po qhs (slept only 2 hrs.), increase olanzapine 2.5mg po TID. 04/04 more redirectable from changes of meds yesterday- 04/05- CTP 04/06- continue plan of care 04/07 continue same treatment 04/08 keep same treatment 04/09 keep same treatment 04/10 paperwork for information of healthcare proxy was done. 04/11 continue current plans and regimen Reason for continued inpatient stay Substantial Risk for: inability to function Time Spent With Patient Time: Total time managing care of this patient today ____ minutes.
[2024-04-11 20:00] VITALS: BP 156/79; PULSE 92; RESP 18; TEMP 36.1; O2SAT 96
[2024-04-11] MEDS: Famotidine 20 MG TABLET PO (20:27)
[2024-04-11] MEDS: Donepezil HCl 5 MG TABLET PO (20:27)
[2024-04-11] MEDS: traZODone HCL 50 MG TABLET PO (20:28)
[2024-04-12] MEDS: OLANZapine 5 MG TABLET PO ×2 (00:57→23:41)
[2024-04-12] MEDS: traZODone HCL 50 MG TABLET PO ×2 (00:58→20:23)
[2024-04-12] MEDS: Acetaminophen 325 MG TABLET 975 MG PO (05:22)
[2024-04-12] MEDS: Levothyroxine Sodium 75 MCG TABLET PO (05:22)
--- NOTE | 2024-04-12 11:13 | HO.PSYCHPN ---
Subjective Subjective Date of Service: 04/12/24 Reason For Visit: combative behaviors Subjective Notes: Conditional Voluntary Interim History: I attempted to connect with her but she would not wake up on 2 attempts. She was discussed in rounds and records and plans were reviewed. Reported to be eating and sleeping adequately. No behavioral issues. No changes were made Review of Systems Review of Systems Yes Unobtainable due to mental status Mental Status Exam Mental Status Exam Narrative: Unable to conduct Diagnostics Vital Signs (24Hr): Vital Signs - 24 hr 04/11/24 20:00 Temperature 96.9 F Pulse Rate 92 Respiratory Rate 18 Blood Pressure 156/79 H Pulse Oximetry 96 Oxygen Delivery Method Room Air BMI result Body Mass Index 19.7 Labs 03/10/24 07:55 03/10/24 07:55 Medications Medications Current Medications Acetaminophen (Acetaminophen 325 Mg Tablet) 975 mg PO TID PRN PRN Reason: Fever Or Pain Last Admin: 04/12/24 05:22 Dose: 975 mg Al Hydroxide/Mg Hydroxide (Magnesium Hydrox/Alum Hydrox 30 Ml Oral.Susp) 30 ml PO Q6H PRN PRN Reason: Heartburn/Nausea Atorvastatin Calcium (Atorvastatin Calcium 20 Mg Tablet) 20 mg PO DAILY [facility] Last Admin: 04/11/24 08:21 Dose: 20 mg Bisacodyl (Bisacodyl 10 Mg Supp.Rect) 10 mg [place] DAILY PRN PRN Reason: Constipation Last Admin: 04/02/24 12:43 Dose: 10 mg Divalproex Sodium (Divalproex Sodium Sprinkles 125 Mg ) 250 mg PO TID [facility] Last Admin: 04/11/24 20:28 Dose: 250 mg Donepezil HCl (Donepezil Hcl 5 Mg Tablet) 5 mg PO BEDTIME [facility] Last Admin: 04/11/24 20:27 Dose: 5 mg Famotidine (Famotidine 20 Mg Tablet) 20 mg PO BEDTIME [facility] Last Admin: 04/11/24 20:27 Dose: 20 mg Levothyroxine Sodium (Levothyroxine Sodium 75 Mcg Tablet) 75 mcg PO DAILY@0600 [facility] Last Admin: 04/12/24 05:22 Dose: 75 mcg Loratadine (Loratadine 10 Mg Tablet) 10 mg PO DAILY [facility] Last Admin: 04/11/24 08:21 Dose: 10 mg Magnesium Hydroxide (Milk Of Magnesia 30 Ml Oral.Susp) 30 ml PO DAILY PRN PRN Reason: Constipation Last Admin: 03/28/24 20:36 Dose: 30 ml Olanzapine (Olanzapine 2.5 Mg Tablet) 2.5 mg PO TID [facility] Last Admin: 04/11/24 20:27 Dose: 2.5 mg Olanzapine (Olanzapine 5 Mg Tablet) 5 mg PO Q6H PRN PRN Reason: agitation Last Admin: 04/12/24 00:57 Dose: 5 mg Oxybutynin Chloride (Oxybutynin Chloride Er 5 Mg Tab.Er.24) 15 mg PO DAILY [facility] Last Admin: 04/11/24 08:20 Dose: 15 mg Trazodone HCl (Trazodone Hcl 50 Mg Tablet) 50 mg PO BEDTIME PRN PRN Reason: sleep Last Admin: 04/12/24 00:58 Dose: 50 mg Trazodone HCl (Trazodone Hcl 50 Mg Tablet) 50 mg PO BEDTIME [facility] Last Admin: 04/11/24 20:28 Dose: 50 mg Allergies Allergies Allergy/AdvReac Type Severity Reaction Status Date / Time sulfamethoxazole Allergy Unknown Verified 03/03/24 14:32 [From Sulfamethoxazole-Trimethoprim] trimethoprim Allergy Unknown Verified 03/03/24 14:32 [From Sulfamethoxazole-Trimethoprim] Assessment & Plan Assessment & Plan (1) Major neurocognitive disorder due to Alzheimer's disease, without behavioral disturbance: Status: Acute Code(s): G30.9 - Alzheimer's disease, unspecified; F02.80 - Dementia in other diseases classified elsewhere, unspecified severity, without behavioral disturbance, psychotic disturbance, mood disturbance, and anxiety Plan Elderly female with a past history of Alzheimer's, recently in a subacute rehab due to subdural hematoma referred for exacerbation of agitation. The patient is a very poor historian unable to provide any details still very agitated. Plan 03/20 continue tx. will check ammonia and depakote level on 03/22/24 at 7am. 03/21: continue current management and treatment plan. check labs tomorrow. 03/22: Continue current management and treatment plan. Check Depakote level and ammonia on 03/23. 03/23 increase trazodone up to 25 p.o. t.i.d. to target anxiety. 03/24 keep same treatment. 03/25 keep same treatment 03/26 keep same treatment 03/27 trazodone will be lowered to 12.5 p.o. t.i.d. 03/29/24 Increase lorazepam 0.5 t.i.d. p.r.n. 03/30 keep same treatment. 03/31 keep same treatment 04/01 keep same treatment 04/02 keep same treatment 04/03 Will schedule trazodone 50mg po qhs (slept only 2 hrs.), increase olanzapine 2.5mg po TID. 04/04 more redirectable from changes of meds yesterday- 04/05- CTP 04/06- continue plan of care 04/07 continue same treatment 04/08 keep same treatment 04/09 keep same treatment 04/10 paperwork for information of healthcare proxy was done. 04/11 continue current plans and regimen 04/12: Continue current regimen and plans. Reason for continued inpatient stay Substantial Risk for: inability to function Time Spent With Patient Time: Total time managing care of this patient today ____ minutes.
[2024-04-12] MEDS: Divalproex Sodium Sprinkles 125 MG CAP.DR.SPR 250 MG PO ×3 (11:50→20:23)
[2024-04-12] MEDS: oxyBUTYnin chloride ER 5 MG TAB.ER.24 15 MG PO (11:50)
[2024-04-12] MEDS: OLANZapine 2.5 MG TABLET PO ×3 (11:50→20:23)
[2024-04-12] MEDS: Atorvastatin Calcium 20 MG TABLET PO (11:51)
[2024-04-12] MEDS: Loratadine 10 MG TABLET PO (11:51)
[2024-04-12 12:33] VITALS: BP 156/95; PULSE 65; RESP 16; TEMP 36.4; O2SAT 97
[2024-04-12 19:27] VITALS: BP 154/91; PULSE 93; RESP 14; TEMP 37.1; O2SAT 95
[2024-04-12] MEDS: Famotidine 20 MG TABLET PO (20:23)
[2024-04-12] MEDS: Donepezil HCl 5 MG TABLET PO (20:23)
[2024-04-12] MEDS: LORazepam 0.5 MG TABLET PO (23:41)
[2024-04-13] MEDS: Levothyroxine Sodium 75 MCG TABLET PO (06:14)
[2024-04-13] MEDS: oxyBUTYnin chloride ER 5 MG TAB.ER.24 15 MG PO (09:29)
[2024-04-13] MEDS: Divalproex Sodium Sprinkles 125 MG CAP.DR.SPR 250 MG PO ×3 (09:29→19:50)
[2024-04-13] MEDS: Atorvastatin Calcium 20 MG TABLET PO (09:29)
[2024-04-13] MEDS: OLANZapine 2.5 MG TABLET PO ×3 (09:29→19:49)
[2024-04-13] MEDS: Loratadine 10 MG TABLET PO (09:29)
[2024-04-13 10:30] VITALS: BP 130/64; PULSE 106; RESP 16; TEMP 36.6
--- NOTE | 2024-04-13 12:31 | P.PNPSI_ITS ---
Subjective Subjective Date of Service: 04/13/24 Reason For Visit: combative behaviors Subjective Notes: Conditional Voluntary Interim History: I attempted to connect with her but she would not wake up on 2 attempts. She was discussed in rounds and records and plans were reviewed. Reported to be eating and sleeping adequately. No behavioral issues. No changes were made Review of Systems Review of Systems Yes Unobtainable due to mental status Mental Status Exam Mental Status Exam Narrative: Unable to conduct Diagnostics Vital Signs (24Hr): Vital Signs - 24 hr 04/12/24 12:33 04/12/24 19:27 04/13/24 10:30 Temperature 97.5 F 98.7 F 97.9 F Pulse Rate 65 93 106 H Respiratory Rate 16 14 16 Blood Pressure 156/95 H 154/91 H 130/64 Pulse Oximetry 97 95 Oxygen Delivery Method Room Air Room Air BMI result Body Mass Index 19.7 Labs 03/10/24 07:55 03/10/24 07:55 Medications Medications Current Medications Acetaminophen (Acetaminophen 325 Mg Tablet) 975 mg PO TID PRN PRN Reason: Fever Or Pain Last Admin: 04/12/24 05:22 Dose: 975 mg Al Hydroxide/Mg Hydroxide (Magnesium Hydrox/Alum Hydrox 30 Ml Oral.Susp) 30 ml PO Q6H PRN PRN Reason: Heartburn/Nausea Atorvastatin Calcium (Atorvastatin Calcium 20 Mg Tablet) 20 mg PO DAILY [facility] Last Admin: 04/13/24 09:29 Dose: 20 mg Bisacodyl (Bisacodyl 10 Mg Supp.Rect) 10 mg [place] DAILY PRN PRN Reason: Constipation Last Admin: 04/02/24 12:43 Dose: 10 mg Divalproex Sodium (Divalproex Sodium Sprinkles 125 Mg ) 250 mg PO TID [facility] Last Admin: 04/13/24 09:29 Dose: 250 mg Donepezil HCl (Donepezil Hcl 5 Mg Tablet) 5 mg PO BEDTIME [facility] Last Admin: 04/12/24 20:23 Dose: 5 mg Famotidine (Famotidine 20 Mg Tablet) 20 mg PO BEDTIME [facility] Last Admin: 04/12/24 20:23 Dose: 20 mg Levothyroxine Sodium (Levothyroxine Sodium 75 Mcg Tablet) 75 mcg PO DAILY@0600 [facility] Last Admin: 04/13/24 06:14 Dose: 75 mcg Loratadine (Loratadine 10 Mg Tablet) 10 mg PO DAILY [facility] Last Admin: 04/13/24 09:29 Dose: 10 mg Lorazepam (Lorazepam 0.5 Mg Tablet) 0.5 mg PO TID PRN PRN Reason: Anxiety Last Admin: 04/12/24 23:41 Dose: 0.5 mg Magnesium Hydroxide (Milk Of Magnesia 30 Ml Oral.Susp) 30 ml PO DAILY PRN PRN Reason: Constipation Last Admin: 03/28/24 20:36 Dose: 30 ml Olanzapine (Olanzapine 2.5 Mg Tablet) 2.5 mg PO TID [facility] Last Admin: 04/13/24 09:29 Dose: 2.5 mg Olanzapine (Olanzapine 5 Mg Tablet) 5 mg PO Q6H PRN PRN Reason: agitation Last Admin: 04/12/24 23:41 Dose: 5 mg Oxybutynin Chloride (Oxybutynin Chloride Er 5 Mg Tab.Er.24) 15 mg PO DAILY [facility] Last Admin: 04/13/24 09:29 Dose: 15 mg Trazodone HCl (Trazodone Hcl 50 Mg Tablet) 50 mg PO BEDTIME PRN PRN Reason: sleep Last Admin: 04/12/24 00:58 Dose: 50 mg Trazodone HCl (Trazodone Hcl 50 Mg Tablet) 50 mg PO BEDTIME [facility] Last Admin: 04/12/24 20:23 Dose: 50 mg Allergies Allergies Allergy/AdvReac Type Severity Reaction Status Date / Time sulfamethoxazole Allergy Unknown Verified 03/03/24 14:32 [From Sulfamethoxazole-Trimethoprim] trimethoprim Allergy Unknown Verified 03/03/24 14:32 [From Sulfamethoxazole-Trimethoprim] Assessment & Plan Assessment & Plan (1) Major neurocognitive disorder due to Alzheimer's disease, without behavioral disturbance: Status: Acute Code(s): G30.9 - Alzheimer's disease, unspecified; F02.80 - Dementia in other diseases classified elsewhere, unspecified severity, without behavioral disturbance, psychotic disturbance, mood disturbance, and anxiety Plan Elderly female with a past history of Alzheimer's, recently in a subacute rehab due to subdural hematoma referred for exacerbation of agitation. The patient is a very poor historian unable to provide any details still very agitated. Plan 03/20 continue tx. will check ammonia and depakote level on 03/22/24 at 7am. 03/21: continue current management and treatment plan. check labs tomorrow. 03/22: Continue current management and treatment plan. Check Depakote level and ammonia on 03/23. 03/23 increase trazodone up to 25 p.o. t.i.d. to target anxiety. 03/24 keep same treatment. 03/25 keep same treatment 03/26 keep same treatment 03/27 trazodone will be lowered to 12.5 p.o. t.i.d. 03/29/24 Increase lorazepam 0.5 t.i.d. p.r.n. 03/30 keep same treatment. 03/31 keep same treatment 04/01 keep same treatment 04/02 keep same treatment 04/03 Will schedule trazodone 50mg po qhs (slept only 2 hrs.), increase olanzapine 2.5mg po TID. 04/04 more redirectable from changes of meds yesterday- 04/05- CTP 04/06- continue plan of care 04/07 continue same treatment 04/08 keep same treatment 04/09 keep same treatment 04/10 paperwork for information of healthcare proxy was done. 04/11 continue current plans and regimen 04/12: Continue current regimen and plans. 04/13: Continue current regimen and plans Reason for continued inpatient stay Substantial Risk for: inability to function Time Spent With Patient Time: Total time managing care of this patient today ____ minutes.
[2024-04-13] MEDS: traZODone HCL 50 MG TABLET PO (19:50)
[2024-04-13] MEDS: Donepezil HCl 5 MG TABLET PO (19:50)
[2024-04-13] MEDS: Famotidine 20 MG TABLET PO (19:50)
[2024-04-13 20:00] VITALS: BP 150/72; PULSE 69; RESP 16; TEMP 36.4; O2SAT 98
[2024-04-14] MEDS: Levothyroxine Sodium 75 MCG TABLET PO (05:08)
[2024-04-14 08:00] VITALS: BP 111/73; PULSE 88; RESP 18; TEMP 36.6; O2SAT 96
[2024-04-14] MEDS: Divalproex Sodium Sprinkles 125 MG CAP.DR.SPR 250 MG PO ×3 (08:32→19:51)
[2024-04-14] MEDS: oxyBUTYnin chloride ER 5 MG TAB.ER.24 15 MG PO (08:34)
[2024-04-14] MEDS: Loratadine 10 MG TABLET PO (08:34)
[2024-04-14] MEDS: Atorvastatin Calcium 20 MG TABLET PO (08:34)
[2024-04-14] MEDS: OLANZapine 2.5 MG TABLET PO ×3 (08:34→19:50)
--- NOTE | 2024-04-14 12:07 | P.PNPSI_ITS ---
Subjective Subjective Date of Service: 04/14/24 Reason For Visit: combative behaviors Subjective Notes: Conditional Voluntary Interim History: The nursing staff reported the patient slept 8 hours no changes in her mental status. On interview the patient denies new symptoms she looks irritable at times. Mental Status Exam Mental Status Exam Patient Appearance: Appropriate Patient Orientation: Person Level of Consciousness: Awake Patient Behavior: Guarded and Passive Mood Description: Withdrawn Affect Description: Constricted Patient Cognition Impaired: Yes Ability to Follow Directions: Good Speech Pattern: Difficulty Finding Words Hallucinations: None Delusions: Paranoid Ideation and Ideas of Reference Thought Process: Distracted and Slowed Thinking Thought Content: positive for [place] and positive for Poverty of Content Judgement: Poor Diagnostics Vital Signs (24Hr): Vital Signs - 24 hr 04/13/24 20:00 04/14/24 08:00 Temperature 97.5 F 97.8 F Pulse Rate 69 88 Respiratory Rate 16 18 Blood Pressure 150/72 H 111/73 Pulse Oximetry 98 96 Oxygen Delivery Method Room Air Room Air BMI result Body Mass Index 19.7 Labs 03/10/24 07:55 03/10/24 07:55 Medications Medications Current Medications Acetaminophen (Acetaminophen 325 Mg Tablet) 975 mg PO TID PRN PRN Reason: Fever Or Pain Last Admin: 04/12/24 05:22 Dose: 975 mg Al Hydroxide/Mg Hydroxide (Magnesium Hydrox/Alum Hydrox 30 Ml Oral.Susp) 30 ml PO Q6H PRN PRN Reason: Heartburn/Nausea Atorvastatin Calcium (Atorvastatin Calcium 20 Mg Tablet) 20 mg PO DAILY [facility] Last Admin: 04/14/24 08:34 Dose: 20 mg Bisacodyl (Bisacodyl 10 Mg Supp.Rect) 10 mg [place] DAILY PRN PRN Reason: Constipation Last Admin: 04/02/24 12:43 Dose: 10 mg Divalproex Sodium (Divalproex Sodium Sprinkles 125 Mg Cap.DrMaria FernandaSpr) 250 mg PO TID [facility] Last Admin: 04/14/24 08:32 Dose: 250 mg Donepezil HCl (Donepezil Hcl 5 Mg Tablet) 5 mg PO BEDTIME [facility] Last Admin: 04/13/24 19:50 Dose: 5 mg Famotidine (Famotidine 20 Mg Tablet) 20 mg PO BEDTIME [facility] Last Admin: 04/13/24 19:50 Dose: 20 mg Levothyroxine Sodium (Levothyroxine Sodium 75 Mcg Tablet) 75 mcg PO DAILY@0600 [facility] Last Admin: 04/14/24 05:08 Dose: 75 mcg Loratadine (Loratadine 10 Mg Tablet) 10 mg PO DAILY [facility] Last Admin: 04/14/24 08:34 Dose: 10 mg Lorazepam (Lorazepam 0.5 Mg Tablet) 0.5 mg PO TID PRN PRN Reason: Anxiety Last Admin: 04/12/24 23:41 Dose: 0.5 mg Magnesium Hydroxide (Milk Of Magnesia 30 Ml Oral.Susp) 30 ml PO DAILY PRN PRN Reason: Constipation Last Admin: 03/28/24 20:36 Dose: 30 ml Olanzapine (Olanzapine 2.5 Mg Tablet) 2.5 mg PO TID [facility] Last Admin: 04/14/24 08:34 Dose: 2.5 mg Olanzapine (Olanzapine 5 Mg Tablet) 5 mg PO Q6H PRN PRN Reason: agitation Last Admin: 04/12/24 23:41 Dose: 5 mg Oxybutynin Chloride (Oxybutynin Chloride Er 5 Mg Tab.Er.24) 15 mg PO DAILY [facility] Last Admin: 04/14/24 08:34 Dose: 15 mg Trazodone HCl (Trazodone Hcl 50 Mg Tablet) 50 mg PO BEDTIME PRN PRN Reason: sleep Last Admin: 04/12/24 00:58 Dose: 50 mg Trazodone HCl (Trazodone Hcl 50 Mg Tablet) 50 mg PO BEDTIME [facility] Last Admin: 04/13/24 19:50 Dose: 50 mg Allergies Allergies Allergy/AdvReac Type Severity Reaction Status Date / Time sulfamethoxazole Allergy Unknown Verified 03/03/24 14:32 [From Sulfamethoxazole-Trimethoprim] trimethoprim Allergy Unknown Verified 03/03/24 14:32 [From Sulfamethoxazole-Trimethoprim] Assessment & Plan Assessment & Plan (1) Major neurocognitive disorder due to Alzheimer's disease, without behavioral disturbance: Status: Acute Code(s): G30.9 - Alzheimer's disease, unspecified; F02.80 - Dementia in other diseases classified elsewhere, unspecified severity, without behavioral disturbance, psychotic disturbance, mood disturbance, and anxiety Plan Elderly female with a past history of Alzheimer's, recently in a subacute rehab due to subdural hematoma referred for exacerbation of agitation. The patient is a very poor historian unable to provide any details still very agitated. Plan 1/24 continue tx. will check ammonia and depakote level on 03/22/24 at 7am. 03/21: continue current management and treatment plan. check labs tomorrow. 03/22: Continue current management and treatment plan. Check Depakote level and ammonia on 03/23. 03/23 increase trazodone up to 25 p.o. t.i.d. to target anxiety. 03/24 keep same treatment. 03/25 keep same treatment 03/26 keep same treatment 03/27 trazodone will be lowered to 12.5 p.o. t.i.d. 03/29/24 Increase lorazepam 0.5 t.i.d. p.r.n. 03/30 keep same treatment. 03/31 keep same treatment 04/01 keep same treatment 04/02 keep same treatment 04/03 Will schedule trazodone 50mg po qhs (slept only 2 hrs.), increase olanzapine 2.5mg po TID. 04/04 more redirectable from changes of meds yesterday- 04/05- CTP 04/06- continue plan of care 04/07 continue same treatment 04/08 keep same treatment 04/09 keep same treatment 04/10 paperwork for information of healthcare proxy was done. 04/11 continue current plans and regimen 04/12: Continue current regimen and plans. 04/13: Continue current regimen and plans 04/14 continue same treatment Reason for continued inpatient stay Substantial Risk for: inability to function, rapid decompensation and med/psych decompensation Time Spent With Patient Time: Total time managing care of this patient today __20__ minutes.
[2024-04-14 19:48] VITALS: BP 121/60; PULSE 77; RESP 16; TEMP 36.3; O2SAT 93
[2024-04-14] MEDS: Famotidine 20 MG TABLET PO (19:50)
[2024-04-14] MEDS: traZODone HCL 50 MG TABLET PO (19:50)
[2024-04-14] MEDS: Donepezil HCl 5 MG TABLET PO (19:51)
[2024-04-14 21:36] LABS: Appearance Urine Clear; Color Urine Yellow; Glucose Urine UA Negative (Negative); Leukocyte Esterase Urine Moderate (2+) (Negative); Nitrite Urine Negative (Negative); UMIC TRIGGER UACC YES; Urine Blood Negative (Negative); Urine Ketones Negative (Negative); Urine Protein Negative (Neg-Trace)
[2024-04-14 21:41] LABS: Bacteria Urine None Seen (None Seen); Hyaline Casts Urine 0-2 /LPF (0-2); RBC Urine 0-2 /HPF (0-2); Squamous Epithelial Cell Urine 0-2 /HPF (0-2); UACC Culture Trigger YES
[2024-04-14] MEDS: Nitrofurantoin Monohyd/M-Cryst 100 MG CAPSULE PO (22:29)
[2024-04-15] MEDS: Levothyroxine Sodium 75 MCG TABLET PO (05:19)
[2024-04-15 07:55] VITALS: BP 147/84; PULSE 76; RESP 18; TEMP 37.2; O2SAT 94
[2024-04-15] MEDS: Nitrofurantoin Monohyd/M-Cryst 100 MG CAPSULE PO ×2 (08:16→20:26)
[2024-04-15] MEDS: oxyBUTYnin chloride ER 5 MG TAB.ER.24 15 MG PO (08:17)
[2024-04-15] MEDS: Atorvastatin Calcium 20 MG TABLET PO (08:17)
[2024-04-15] MEDS: Loratadine 10 MG TABLET PO (08:17)
[2024-04-15] MEDS: OLANZapine 2.5 MG TABLET PO ×3 (08:17→20:26)
[2024-04-15] MEDS: Divalproex Sodium Sprinkles 125 MG CAP.DR.SPR 250 MG PO ×3 (08:17→20:25)
--- NOTE | 2024-04-15 13:51 | HO.PSYCHPN ---
Subjective Subjective Date of Service: 04/15/24 Reason For Visit: combative behaviors Subjective Notes: Conditional Voluntary Interim History: The nursing staff reported no changes in her mental status compliant with treatment. The social media community manager reported that family is working with the long-term care. Today we review with the doctor of the insurance and they are proving for more days. On interview the patient is pleasantly confused easily redirectable. Mental Status Exam Mental Status Exam Patient Appearance: Appropriate Patient Orientation: Person and Situation Level of Consciousness: Awake Patient Behavior: Guarded and Passive Mood Description: Withdrawn Affect Description: Constricted Patient Cognition Impaired: Yes Ability to Follow Directions: Good Speech Pattern: Clear Hallucinations: None Delusions: Ideas of Reference Thought Process: Distracted and Slowed Thinking Thought Content: positive for [place] and positive for Poverty of Content Judgement: Poor Diagnostics Vital Signs (24Hr): Vital Signs - 24 hr 04/14/24 19:48 04/15/24 07:55 Temperature 97.4 F 98.9 F Pulse Rate 77 76 Respiratory Rate 16 18 Blood Pressure 121/60 147/84 H Pulse Oximetry 93 94 Oxygen Delivery Method Room Air Room Air BMI result Body Mass Index 19.7 Labs 03/10/24 07:55 03/10/24 07:55 Labs: Laboratory Results - last 48 hr 04/14/24 21:20 Urine Color Yellow Urine Appearance Clear Urine pH 7.0 Ur Specific [place] 1.010 Urine Protein Negative Urine Glucose (UA) Negative Urine Ketones Negative Urine Blood Negative Urine Nitrite Negative Ur Leukocyte Esterase Moderate (2+) H Urine RBC 0-2 Urine WBC 6-10 H Ur Squamous Epith Cells 0-2 Urine Bacteria None Seen Hyaline Casts 0-2 Medications Medications Current Medications Acetaminophen (Acetaminophen 325 Mg Tablet) 975 mg PO TID PRN PRN Reason: Fever Or Pain Last Admin: 04/12/24 05:22 Dose: 975 mg Al Hydroxide/Mg Hydroxide (Magnesium Hydrox/Alum Hydrox 30 Ml Oral.Susp) 30 ml PO Q6H PRN PRN Reason: Heartburn/Nausea Atorvastatin Calcium (Atorvastatin Calcium 20 Mg Tablet) 20 mg PO DAILY [facility] Last Admin: 04/15/24 08:17 Dose: 20 mg Bisacodyl (Bisacodyl 10 Mg Supp.Rect) 10 mg [place] DAILY PRN PRN Reason: Constipation Last Admin: 04/02/24 12:43 Dose: 10 mg Divalproex Sodium (Divalproex Sodium Sprinkles 125 Mg ) 250 mg PO TID [facility] Last Admin: 04/15/24 08:17 Dose: 250 mg Donepezil HCl (Donepezil Hcl 5 Mg Tablet) 5 mg PO BEDTIME [facility] Last Admin: 04/14/24 19:51 Dose: 5 mg Famotidine (Famotidine 20 Mg Tablet) 20 mg PO BEDTIME [facility] Last Admin: 04/14/24 19:50 Dose: 20 mg Levothyroxine Sodium (Levothyroxine Sodium 75 Mcg Tablet) 75 mcg PO DAILY@0600 [facility] Last Admin: 04/15/24 05:19 Dose: 75 mcg Loratadine (Loratadine 10 Mg Tablet) 10 mg PO DAILY [facility] Last Admin: 04/15/24 08:17 Dose: 10 mg Lorazepam (Lorazepam 0.5 Mg Tablet) 0.5 mg PO TID PRN PRN Reason: Anxiety Last Admin: 04/12/24 23:41 Dose: 0.5 mg Magnesium Hydroxide (Milk Of Magnesia 30 Ml Oral.Susp) 30 ml PO DAILY PRN PRN Reason: Constipation Last Admin: 03/28/24 20:36 Dose: 30 ml Nitrofurantoin Macrocrystals (Nitrofurantoin Monohyd/M-Cryst 100 Mg Capsule) 100 mg PO BID [facility] Stop: 04/19/24 09:01 Last Admin: 04/15/24 08:16 Dose: 100 mg Olanzapine (Olanzapine 2.5 Mg Tablet) 2.5 mg PO TID [facility] Last Admin: 04/15/24 08:17 Dose: 2.5 mg Olanzapine (Olanzapine 5 Mg Tablet) 5 mg PO Q6H PRN PRN Reason: agitation Last Admin: 04/12/24 23:41 Dose: 5 mg Oxybutynin Chloride (Oxybutynin Chloride Er 5 Mg Tab.Er.24) 15 mg PO DAILY [facility] Last Admin: 04/15/24 08:17 Dose: 15 mg Trazodone HCl (Trazodone Hcl 50 Mg Tablet) 50 mg PO BEDTIME PRN PRN Reason: sleep Last Admin: 04/12/24 00:58 Dose: 50 mg Trazodone HCl (Trazodone Hcl 50 Mg Tablet) 50 mg PO BEDTIME [facility] Last Admin: 04/14/24 19:50 Dose: 50 mg Allergies Allergies Allergy/AdvReac Type Severity Reaction Status Date / Time sulfamethoxazole Allergy Unknown Verified 03/03/24 14:32 [From Sulfamethoxazole-Trimethoprim] trimethoprim Allergy Unknown Verified 03/03/24 14:32 [From Sulfamethoxazole-Trimethoprim] Assessment & Plan Assessment & Plan (1) Major neurocognitive disorder due to Alzheimer's disease, without behavioral disturbance: Status: Acute Code(s): G30.9 - Alzheimer's disease, unspecified; F02.80 - Dementia in other diseases classified elsewhere, unspecified severity, without behavioral disturbance, psychotic disturbance, mood disturbance, and anxiety Plan Elderly female with a past history of Alzheimer's, recently in a subacute rehab due to subdural hematoma referred for exacerbation of agitation. The patient is a very poor historian unable to provide any details still very agitated. Plan 03/20 continue tx. will check ammonia and depakote level on 03/22/24 at 7am. 03/21: continue current management and treatment plan. check labs tomorrow. 03/22: Continue current management and treatment plan. Check Depakote level and ammonia on 03/23. 03/23 increase trazodone up to 25 p.o. t.i.d. to target anxiety. 03/24 keep same treatment. 03/25 keep same treatment 03/26 keep same treatment 03/27 trazodone will be lowered to 12.5 p.o. t.i.d. 03/29/24 Increase lorazepam 0.5 t.i.d. p.r.n. 03/30 keep same treatment. 03/31 keep same treatment 04/01 keep same treatment 04/02 keep same treatment 04/03 Will schedule trazodone 50mg po qhs (slept only 2 hrs.), increase olanzapine 2.5mg po TID. 04/04 more redirectable from changes of meds yesterday- 04/05- CTP 04/06- continue plan of care 04/07 continue same treatment 04/08 keep same treatment 04/09 keep same treatment 04/10 paperwork for information of healthcare proxy was done. 04/11 continue current plans and regimen 04/12: Continue current regimen and plans. 04/13: Continue current regimen and plans 04/14 continue same treatment 04/15 continue same treatment Reason for continued inpatient stay Substantial Risk for: inability to function, rapid decompensation and med/psych decompensation Time Spent With Patient Time: Total time managing care of this patient today __20__ minutes.
[2024-04-15 20:00] VITALS: BP 122/64; PULSE 99; RESP 16; TEMP 36.3; O2SAT 96
[2024-04-15] MEDS: Donepezil HCl 5 MG TABLET PO (20:25)
[2024-04-15] MEDS: Famotidine 20 MG TABLET PO (20:25)
[2024-04-15] MEDS: traZODone HCL 50 MG TABLET PO (20:26)
[2024-04-16] MEDS: Levothyroxine Sodium 75 MCG TABLET PO (06:40)
[2024-04-16 07:55] VITALS: BP 134/69; PULSE 62; RESP 18; TEMP 36.6; O2SAT 95
[2024-04-16] MEDS: oxyBUTYnin chloride ER 5 MG TAB.ER.24 15 MG PO (09:05)
[2024-04-16] MEDS: Divalproex Sodium Sprinkles 125 MG CAP.DR.SPR 250 MG PO ×3 (09:06→20:32)
[2024-04-16] MEDS: OLANZapine 2.5 MG TABLET PO ×3 (09:06→20:32)
[2024-04-16] MEDS: Atorvastatin Calcium 20 MG TABLET PO (09:06)
[2024-04-16] MEDS: Loratadine 10 MG TABLET PO (09:06)
[2024-04-16] MEDS: Nitrofurantoin Monohyd/M-Cryst 100 MG CAPSULE PO ×2 (09:06→20:32)
--- NOTE | 2024-04-16 16:49 | P.PNPSI_ITS ---
Subjective Subjective Date of Service: 04/16/24 Reason For Visit: combative behaviors Subjective Notes: Conditional Voluntary Healthcare Proxy: Yes Interim History: The nursing staff reported that the patient had been pleasantly confused slept 8 hours compliant with treatment. The social media developer reported that waiting for information of healthcare proxy for placement. On interview the patient was pleasantly confused. Mental Status Exam Mental Status Exam Patient Appearance: Appropriate Patient Orientation: Person and Situation Level of Consciousness: Awake and Appropriate Patient Behavior: Guarded and Passive Mood Description: Withdrawn Affect Description: Constricted Patient Cognition Impaired: Yes Ability to Follow Directions: Good Speech Pattern: Clear Hallucinations: None Delusions: Not Present Thought Process: Distracted and Slowed Thinking Thought Content: positive for [place] and positive for Poverty of Content Judgement: Poor Diagnostics Vital Signs (24Hr): Vital Signs - 24 hr 04/15/24 20:00 04/16/24 07:55 Temperature 97.4 F 97.9 F Pulse Rate 99 62 Respiratory Rate 16 18 Blood Pressure 122/64 134/69 Pulse Oximetry 96 95 Oxygen Delivery Method Room Air Room Air BMI result Body Mass Index 19.7 Labs 03/10/24 07:55 03/10/24 07:55 Labs: Laboratory Results - last 48 hr 04/14/24 21:20 Urine Color Yellow Urine Appearance Clear Urine pH 7.0 Ur Specific [place] 1.010 Urine Protein Negative Urine Glucose (UA) Negative Urine Ketones Negative Urine Blood Negative Urine Nitrite Negative Ur Leukocyte Esterase Moderate (2+) H Urine RBC 0-2 Urine WBC 6-10 H Ur Squamous Epith Cells 0-2 Urine Bacteria None Seen Hyaline Casts 0-2 Medications Medications Current Medications Acetaminophen (Acetaminophen 325 Mg Tablet) 975 mg PO TID PRN PRN Reason: Fever Or Pain Last Admin: 04/12/24 05:22 Dose: 975 mg Al Hydroxide/Mg Hydroxide (Magnesium Hydrox/Alum Hydrox 30 Ml Oral.Susp) 30 ml PO Q6H PRN PRN Reason: Heartburn/Nausea Atorvastatin Calcium (Atorvastatin Calcium 20 Mg Tablet) 20 mg PO DAILY [facility] Last Admin: 04/16/24 09:06 Dose: 20 mg Bisacodyl (Bisacodyl 10 Mg Supp.Rect) 10 mg [place] DAILY PRN PRN Reason: Constipation Last Admin: 04/02/24 12:43 Dose: 10 mg Divalproex Sodium (Divalproex Sodium Sprinkles 125 Mg Cap.Dr.Spr) 250 mg PO TID [facility] Last Admin: 04/16/24 15:26 Dose: 250 mg Donepezil HCl (Donepezil Hcl 5 Mg Tablet) 5 mg PO BEDTIME [facility] Last Admin: 04/15/24 20:25 Dose: 5 mg Famotidine (Famotidine 20 Mg Tablet) 20 mg PO BEDTIME [facility] Last Admin: 04/15/24 20:25 Dose: 20 mg Levothyroxine Sodium (Levothyroxine Sodium 75 Mcg Tablet) 75 mcg PO DAILY@0600 [facility] Last Admin: 04/16/24 06:40 Dose: 75 mcg Loratadine (Loratadine 10 Mg Tablet) 10 mg PO DAILY [facility] Last Admin: 04/16/24 09:06 Dose: 10 mg Lorazepam (Lorazepam 0.5 Mg Tablet) 0.5 mg PO TID PRN PRN Reason: Anxiety Last Admin: 04/12/24 23:41 Dose: 0.5 mg Magnesium Hydroxide (Milk Of Magnesia 30 Ml Oral.Susp) 30 ml PO DAILY PRN PRN Reason: Constipation Last Admin: 03/28/24 20:36 Dose: 30 ml Nitrofurantoin Macrocrystals (Nitrofurantoin Monohyd/M-Cryst 100 Mg Capsule) 100 mg PO BID [facility] Stop: 04/19/24 09:01 Last Admin: 04/16/24 09:06 Dose: 100 mg Olanzapine (Olanzapine 2.5 Mg Tablet) 2.5 mg PO TID [facility] Last Admin: 04/16/24 15:26 Dose: 2.5 mg Olanzapine (Olanzapine 5 Mg Tablet) 5 mg PO Q6H PRN PRN Reason: agitation Last Admin: 04/12/24 23:41 Dose: 5 mg Oxybutynin Chloride (Oxybutynin Chloride Er 5 Mg Tab.Er.24) 15 mg PO DAILY [facility] Last Admin: 04/16/24 09:05 Dose: 15 mg Trazodone HCl (Trazodone Hcl 50 Mg Tablet) 50 mg PO BEDTIME PRN PRN Reason: sleep Last Admin: 04/12/24 00:58 Dose: 50 mg Trazodone HCl (Trazodone Hcl 50 Mg Tablet) 50 mg PO BEDTIME [facility] Last Admin: 04/15/24 20:26 Dose: 50 mg Allergies Allergies Allergy/AdvReac Type Severity Reaction Status Date / Time sulfamethoxazole Allergy Unknown Verified 03/03/24 14:32 [From Sulfamethoxazole-Trimethoprim] trimethoprim Allergy Unknown Verified 03/03/24 14:32 [From Sulfamethoxazole-Trimethoprim] Assessment & Plan Assessment & Plan (1) Major neurocognitive disorder due to Alzheimer's disease, without behavioral disturbance: Status: Acute Code(s): G30.9 - Alzheimer's disease, unspecified; F02.80 - Dementia in other diseases classified elsewhere, unspecified severity, without behavioral disturbance, psychotic disturbance, mood disturbance, and anxiety Plan Elderly female with a past history of Alzheimer's, recently in a subacute rehab due to subdural hematoma referred for exacerbation of agitation. The patient is a very poor historian unable to provide any details still very agitated. Plan 03/20 continue tx. will check ammonia and depakote level on 03/22/24 at 7am. 03/21: continue current management and treatment plan. check labs tomorrow. 03/22: Continue current management and treatment plan. Check Depakote level and ammonia on 03/23. 03/23 increase trazodone up to 25 p.o. t.i.d. to target anxiety. 03/24 keep same treatment. 03/25 keep same treatment 03/26 keep same treatment 03/27 trazodone will be lowered to 12.5 p.o. t.i.d. 03/29/24 Increase lorazepam 0.5 t.i.d. p.r.n. 03/30 keep same treatment. 03/31 keep same treatment 04/01 keep same treatment 04/02 keep same treatment 04/03 Will schedule trazodone 50mg po qhs (slept only 2 hrs.), increase olanzapine 2.5mg po TID. 04/04 more redirectable from changes of meds yesterday- 04/05- CTP 04/06- continue plan of care 04/07 continue same treatment 04/08 keep same treatment 04/09 keep same treatment 04/10 paperwork for information of healthcare proxy was done. 04/11 continue current plans and regimen 04/12: Continue current regimen and plans. 04/13: Continue current regimen and plans 04/14 continue same treatment 04/15 continue same treatment 04/16 continue same treatment Reason for continued inpatient stay Substantial Risk for: inability to function, rapid decompensation and med/psych decompensation Time Spent With Patient Time: Total time managing care of this patient today ___20_ minutes.
[2024-04-16 20:00] VITALS: BP 128/60; PULSE 81; RESP 18; TEMP 36.7; O2SAT 97
[2024-04-16] MEDS: Donepezil HCl 5 MG TABLET PO (20:32)
[2024-04-16] MEDS: traZODone HCL 50 MG TABLET PO (20:32)
[2024-04-16] MEDS: Famotidine 20 MG TABLET PO (20:32)
[2024-04-17] MEDS: Levothyroxine Sodium 75 MCG TABLET PO (05:44)
[2024-04-17 08:16] VITALS: BP 120/78; PULSE 71; RESP 17; TEMP 36.1; O2SAT 96
[2024-04-17] MEDS: Nitrofurantoin Monohyd/M-Cryst 100 MG CAPSULE PO ×2 (08:17→20:45)
[2024-04-17] MEDS: oxyBUTYnin chloride ER 5 MG TAB.ER.24 15 MG PO (08:17)
[2024-04-17] MEDS: Loratadine 10 MG TABLET PO (08:17)
[2024-04-17] MEDS: Atorvastatin Calcium 20 MG TABLET PO (08:17)
[2024-04-17] MEDS: OLANZapine 2.5 MG TABLET PO ×3 (08:18→20:45)
[2024-04-17] MEDS: Divalproex Sodium Sprinkles 125 MG CAP.DR.SPR 250 MG PO ×3 (08:18→20:45)
--- NOTE | 2024-04-17 16:28 | P.PNPSI_ITS ---
Subjective Subjective Date of Service: 04/17/24 Reason For Visit: combative behaviors Subjective Notes: Conditional Voluntary Interim History: The nursing staff reported the patient had been a little more pleasant, compliant with treatment. Today she is having her affirmation of healthcare proxy. On interview the patient denies new symptoms waiting for placement. Mental Status Exam Mental Status Exam Patient Appearance: Appropriate Patient Orientation: Person Level of Consciousness: Awake Patient Behavior: Cooperative Mood Description: Withdrawn Affect Description: Constricted Patient Cognition Impaired: Yes Ability to Follow Directions: Good Speech Pattern: Clear Hallucinations: None Delusions: Ideas of Reference Thought Process: Distracted Thought Content: positive for [place] and positive for Poverty of Content Judgement: Fair Diagnostics Vital Signs (24Hr): Vital Signs - 24 hr 04/16/24 20:00 04/17/24 08:16 Temperature 98.1 F 96.9 F Pulse Rate 81 71 Respiratory Rate 18 17 Blood Pressure 128/60 120/78 Pulse Oximetry 97 96 Oxygen Delivery Method Room Air Room Air BMI result Body Mass Index 19.7 Labs 03/10/24 07:55 03/10/24 07:55 Medications Medications Current Medications Acetaminophen (Acetaminophen 325 Mg Tablet) 975 mg PO TID PRN PRN Reason: Fever Or Pain Last Admin: 04/12/24 05:22 Dose: 975 mg Al Hydroxide/Mg Hydroxide (Magnesium Hydrox/Alum Hydrox 30 Ml Oral.Susp) 30 ml PO Q6H PRN PRN Reason: Heartburn/Nausea Atorvastatin Calcium (Atorvastatin Calcium 20 Mg Tablet) 20 mg PO DAILY [facility] Last Admin: 04/17/24 08:17 Dose: 20 mg Bisacodyl (Bisacodyl 10 Mg Supp.Rect) 10 mg [place] DAILY PRN PRN Reason: Constipation Last Admin: 04/02/24 12:43 Dose: 10 mg Divalproex Sodium (Divalproex Sodium Sprinkles 125 Mg [place]ilo.) 250 mg PO TID [facility] Last Admin: 04/17/24 15:18 Dose: 250 mg Donepezil HCl (Donepezil Hcl 5 Mg Tablet) 5 mg PO BEDTIME [facility] Last Admin: 04/16/24 20:32 Dose: 5 mg Famotidine (Famotidine 20 Mg Tablet) 20 mg PO BEDTIME [facility] Last Admin: 04/16/24 20:32 Dose: 20 mg Levothyroxine Sodium (Levothyroxine Sodium 75 Mcg Tablet) 75 mcg PO DAILY@0600 [facility] Last Admin: 04/17/24 05:44 Dose: 75 mcg Loratadine (Loratadine 10 Mg Tablet) 10 mg PO DAILY [facility] Last Admin: 04/17/24 08:17 Dose: 10 mg Lorazepam (Lorazepam 0.5 Mg Tablet) 0.5 mg PO TID PRN PRN Reason: Anxiety Last Admin: 04/12/24 23:41 Dose: 0.5 mg Magnesium Hydroxide (Milk Of Magnesia 30 Ml Oral.Susp) 30 ml PO DAILY PRN PRN Reason: Constipation Last Admin: 03/28/24 20:36 Dose: 30 ml Nitrofurantoin Macrocrystals (Nitrofurantoin Monohyd/M-Cryst 100 Mg Capsule) 100 mg PO BID [facility] Stop: 04/19/24 09:01 Last Admin: 04/17/24 08:17 Dose: 100 mg Olanzapine (Olanzapine 2.5 Mg Tablet) 2.5 mg PO TID [facility] Last Admin: 04/17/24 15:18 Dose: 2.5 mg Olanzapine (Olanzapine 5 Mg Tablet) 5 mg PO Q6H PRN PRN Reason: agitation Last Admin: 04/12/24 23:41 Dose: 5 mg Oxybutynin Chloride (Oxybutynin Chloride Er 5 Mg Tab.Er.24) 15 mg PO DAILY [facility] Last Admin: 04/17/24 08:17 Dose: 15 mg Trazodone HCl (Trazodone Hcl 50 Mg Tablet) 50 mg PO BEDTIME PRN PRN Reason: sleep Last Admin: 04/12/24 00:58 Dose: 50 mg Trazodone HCl (Trazodone Hcl 50 Mg Tablet) 50 mg PO BEDTIME [facility] Last Admin: 04/16/24 20:32 Dose: 50 mg Allergies Allergies Allergy/AdvReac Type Severity Reaction Status Date / Time sulfamethoxazole Allergy Unknown Verified 03/03/24 14:32 [From Sulfamethoxazole-Trimethoprim] trimethoprim Allergy Unknown Verified 03/03/24 14:32 [From Sulfamethoxazole-Trimethoprim] Assessment & Plan Assessment & Plan (1) Major neurocognitive disorder due to Alzheimer's disease, without behavioral disturbance: Status: Acute Code(s): G30.9 - Alzheimer's disease, unspecified; F02.80 - Dementia in other diseases classified elsewhere, unspecified severity, without behavioral disturbance, psychotic disturbance, mood disturbance, and anxiety Plan Elderly female with a past history of Alzheimer's, recently in a subacute rehab due to subdural hematoma referred for exacerbation of agitation. The patient is a very poor historian unable to provide any details still very agitated. Plan 03/20 continue tx. will check ammonia and depakote level on 03/22/24 at 7am. 03/21: continue current management and treatment plan. check labs tomorrow. 03/22: Continue current management and treatment plan. Check Depakote level and ammonia on 03/23. 03/23 increase trazodone up to 25 p.o. t.i.d. to target anxiety. 03/24 keep same treatment. 03/25 keep same treatment 03/26 keep same treatment 03/27 trazodone will be lowered to 12.5 p.o. t.i.d. 03/29/24 Increase lorazepam 0.5 t.i.d. p.r.n. 03/30 keep same treatment. 03/31 keep same treatment 04/01 keep same treatment 04/02 keep same treatment 04/03 Will schedule trazodone 50mg po qhs (slept only 2 hrs.), increase olanzapine 2.5mg po TID. 04/04 more redirectable from changes of meds yesterday- 04/05- CTP 04/06- continue plan of care 04/07 continue same treatment 04/08 keep same treatment 04/09 keep same treatment 04/10 paperwork for information of healthcare proxy was done. 04/11 continue current plans and regimen 04/12: Continue current regimen and plans. 04/13: Continue current regimen and plans 04/14 continue same treatment 04/15 continue same treatment 04/16 continue same treatment 04/[address] hearing for affirmation of healthcare proxy. Reason for continued inpatient stay Substantial Risk for: inability to function, rapid decompensation and med/psych decompensation Time Spent With Patient Time: Total time managing care of this patient today __20__ minutes.
[2024-04-17 20:00] VITALS: BP 140/61; PULSE 96; RESP 18; TEMP 36.9; O2SAT 98
[2024-04-17] MEDS: traZODone HCL 50 MG TABLET PO (20:45)
[2024-04-17] MEDS: Famotidine 20 MG TABLET PO (20:45)
[2024-04-17] MEDS: Donepezil HCl 5 MG TABLET PO (20:46)
[2024-04-18] MEDS: Levothyroxine Sodium 75 MCG TABLET PO (06:01)
[2024-04-18 08:00] VITALS: BP 158/75; PULSE 66; RESP 18; TEMP 36.5; O2SAT 97
[2024-04-18] MEDS: Atorvastatin Calcium 20 MG TABLET PO (09:22)
[2024-04-18] MEDS: Nitrofurantoin Monohyd/M-Cryst 100 MG CAPSULE PO ×2 (09:22→20:52)
[2024-04-18] MEDS: Divalproex Sodium Sprinkles 125 MG CAP.DR.SPR 250 MG PO ×3 (09:22→20:51)
[2024-04-18] MEDS: Loratadine 10 MG TABLET PO (09:22)
[2024-04-18] MEDS: oxyBUTYnin chloride ER 5 MG TAB.ER.24 15 MG PO (09:22)
[2024-04-18] MEDS: OLANZapine 2.5 MG TABLET PO ×3 (09:22→20:51)
--- NOTE | 2024-04-18 17:25 | HO.PSYCHPN ---
Subjective Subjective Date of Service: 04/18/24 Reason For Visit: combative behaviors Interim History: met with patient; discussed with team pt hard to understand without her dentures; mentions her , work. Staff reports patient overall more active in [place]; still with urinary urgency 1:1 obs as fall risk eating well Mental Status Exam Mental Status Exam Patient Appearance: Appropriate Patient Orientation: Person Level of Consciousness: Awake Patient Behavior: Appropriate Mood Description: Withdrawn Affect Description: Calm Patient Cognition Impaired: Yes Ability to Follow Directions: Fair Speech Pattern: Clear Hallucinations: None Delusions: Ideas of Reference Thought Process: Distracted Thought Content: positive for [place] and positive for Poverty of Content Judgement and Insight: impaired Diagnostics Vital Signs (24Hr): Vital Signs - 24 hr 04/17/24 20:00 04/18/24 08:00 Temperature 98.5 F 97.7 F Pulse Rate 96 66 Respiratory Rate 18 18 Blood Pressure 140/61 H 158/75 H Pulse Oximetry 98 97 Oxygen Delivery Method Room Air Room Air BMI result Body Mass Index 19.7 Labs 03/10/24 07:55 03/10/24 07:55 Medications Medications Current Medications Acetaminophen (Acetaminophen 325 Mg Tablet) 975 mg PO TID PRN PRN Reason: Fever Or Pain Last Admin: 04/12/24 05:22 Dose: 975 mg Al Hydroxide/Mg Hydroxide (Magnesium Hydrox/Alum Hydrox 30 Ml Oral.Susp) 30 ml PO Q6H PRN PRN Reason: Heartburn/Nausea Atorvastatin Calcium (Atorvastatin Calcium 20 Mg Tablet) 20 mg PO DAILY [facility] Last Admin: 04/18/24 09:22 Dose: 20 mg Bisacodyl (Bisacodyl 10 Mg Supp.Rect) 10 mg [place] DAILY PRN PRN Reason: Constipation Last Admin: 04/02/24 12:43 Dose: 10 mg Divalproex Sodium (Divalproex Sodium Sprinkles 125 Mg Camilo.) 250 mg PO TID [facility] Last Admin: 04/18/24 15:24 Dose: 250 mg Donepezil HCl (Donepezil Hcl 5 Mg Tablet) 5 mg PO BEDTIME [facility] Last Admin: 04/17/24 20:46 Dose: 5 mg Famotidine (Famotidine 20 Mg Tablet) 20 mg PO BEDTIME [facility] Last Admin: 04/17/24 20:45 Dose: 20 mg Levothyroxine Sodium (Levothyroxine Sodium 75 Mcg Tablet) 75 mcg PO DAILY@0600 [facility] Last Admin: 04/18/24 06:01 Dose: 75 mcg Loratadine (Loratadine 10 Mg Tablet) 10 mg PO DAILY [facility] Last Admin: 04/18/24 09:22 Dose: 10 mg Magnesium Hydroxide (Milk Of Magnesia 30 Ml Oral.Susp) 30 ml PO DAILY PRN PRN Reason: Constipation Last Admin: 03/28/24 20:36 Dose: 30 ml Nitrofurantoin Macrocrystals (Nitrofurantoin Monohyd/M-Cryst 100 Mg Capsule) 100 mg PO BID [facility] Stop: 04/19/24 09:01 Last Admin: 04/18/24 09:22 Dose: 100 mg Olanzapine (Olanzapine 2.5 Mg Tablet) 2.5 mg PO TID [facility] Last Admin: 04/18/24 15:24 Dose: 2.5 mg Olanzapine (Olanzapine 5 Mg Tablet) 5 mg PO Q6H PRN PRN Reason: agitation Last Admin: 04/12/24 23:41 Dose: 5 mg Oxybutynin Chloride (Oxybutynin Chloride Er 5 Mg Tab.Er.24) 15 mg PO DAILY [facility] Last Admin: 04/18/24 09:22 Dose: 15 mg Trazodone HCl (Trazodone Hcl 50 Mg Tablet) 50 mg PO BEDTIME PRN PRN Reason: sleep Last Admin: 04/12/24 00:58 Dose: 50 mg Trazodone HCl (Trazodone Hcl 50 Mg Tablet) 50 mg PO BEDTIME [facility] Last Admin: 04/17/24 20:45 Dose: 50 mg Allergies Allergies Allergy/AdvReac Type Severity Reaction Status Date / Time sulfamethoxazole Allergy Unknown Verified 03/03/24 14:32 [From Sulfamethoxazole-Trimethoprim] trimethoprim Allergy Unknown Verified 03/03/24 14:32 [From Sulfamethoxazole-Trimethoprim] Assessment & Plan Assessment & Plan (1) Major neurocognitive disorder due to Alzheimer's disease, without behavioral disturbance: Status: Acute Code(s): G30.9 - Alzheimer's disease, unspecified; F02.80 - Dementia in other diseases classified elsewhere, unspecified severity, without behavioral disturbance, psychotic disturbance, mood disturbance, and anxiety Plan Elderly female with a past history of Alzheimer's, recently in a subacute rehab due to subdural hematoma referred for exacerbation of agitation. The patient is a very poor historian unable to provide any details still very agitated. Plan 03/20 continue tx. will check ammonia and depakote level on 03/22/24 at 7am. 03/21: continue current management and treatment plan. check labs tomorrow. 03/22: Continue current management and treatment plan. Check Depakote level and ammonia on 03/23. 03/23 increase trazodone up to 25 p.o. t.i.d. to target anxiety. 03/24 keep same treatment. 03/25 keep same treatment 03/26 keep same treatment 03/27 trazodone will be lowered to 12.5 p.o. t.i.d. 03/29/24 Increase lorazepam 0.5 t.i.d. p.r.n. 03/30 keep same treatment. 03/31 keep same treatment 04/01 keep same treatment 04/02 keep same treatment 04/03 Will schedule trazodone 50mg po qhs (slept only 2 hrs.), increase olanzapine 2.5mg po TID. 04/04 more redirectable from changes of meds yesterday- 04/05- CTP 04/06- continue plan of care 04/07 continue same treatment 04/08 keep same treatment 04/09 keep same treatment 04/10 paperwork for information of healthcare proxy was done. 04/11 continue current plans and regimen 04/12: Continue current regimen and plans. 04/13: Continue current regimen and plans 04/14 continue same treatment 04/15 continue same treatment 04/16 continue same treatment 04/17 today we have the court hearing for affirmation of healthcare proxy. 04/18 continue tx plan Reason for continued inpatient stay Substantial Risk for: inability to function Time Spent With Patient Time: Total time managing care of this patient today ____ minutes.
[2024-04-18 20:00] VITALS: BP 116/55; PULSE 71; RESP 18; TEMP 36.3; O2SAT 97
[2024-04-18] MEDS: Donepezil HCl 5 MG TABLET PO (20:51)
[2024-04-18] MEDS: Famotidine 20 MG TABLET PO (20:52)
[2024-04-18] MEDS: traZODone HCL 50 MG TABLET PO ×2 (20:52→22:06)
[2024-04-18] MEDS: OLANZapine 5 MG TABLET PO (22:06)
[2024-04-19] MEDS: Levothyroxine Sodium 75 MCG TABLET PO (06:04)
[2024-04-19 08:00] VITALS: BP 106/64; PULSE 63; RESP 18; TEMP 36.1; O2SAT 95
[2024-04-19] MEDS: Loratadine 10 MG TABLET PO (08:30)
[2024-04-19] MEDS: Divalproex Sodium Sprinkles 125 MG CAP.DR.SPR 250 MG PO ×3 (08:30→20:54)
[2024-04-19] MEDS: oxyBUTYnin chloride ER 5 MG TAB.ER.24 15 MG PO (08:30)
[2024-04-19] MEDS: OLANZapine 2.5 MG TABLET PO ×3 (08:30→20:55)
[2024-04-19] MEDS: Atorvastatin Calcium 20 MG TABLET PO (08:31)
[2024-04-19] MEDS: Nitrofurantoin Monohyd/M-Cryst 100 MG CAPSULE PO (08:31)
[2024-04-19 20:00] VITALS: BP 118/56; PULSE 95; RESP 18; TEMP 36.3; O2SAT 92
[2024-04-19] MEDS: traZODone HCL 50 MG TABLET PO ×3 (20:53→22:17)
[2024-04-19] MEDS: Famotidine 20 MG TABLET PO (20:54)
[2024-04-19] MEDS: OLANZapine 5 MG TABLET PO (20:54)
[2024-04-19] MEDS: Donepezil HCl 5 MG TABLET PO (20:54)
--- NOTE | 2024-04-19 21:43 | HO.PSYCHPN ---
Subjective Subjective Date of Service: 04/19/24 Reason For Visit: combative behaviors Interim History: met with pt; discussed with team no change in presentation; she says she's alright but keeps scooting along with her walker trouble sleeping at night Mental Status Exam Mental Status Exam Patient Appearance: Appropriate Patient Orientation: Person Level of Consciousness: Awake Patient Behavior: Appropriate Mood Description: Appropriate ( alright ) Affect Description: Calm Patient Cognition Impaired: Yes Ability to Follow Directions: Fair Speech Pattern: Clear Hallucinations: None Delusions: Ideas of Reference Thought Process: Distracted Thought Content: positive for [place] and positive for Poverty of Content Judgement and Insight: impaired Diagnostics Vital Signs (24Hr): Vital Signs - 24 hr 04/19/24 08:00 04/19/24 20:00 Temperature 97.0 F 97.4 F Pulse Rate 63 95 Respiratory Rate 18 18 Blood Pressure 106/64 118/56 L Pulse Oximetry 95 92 Oxygen Delivery Method Room Air Room Air BMI result Body Mass Index 19.7 Labs 03/10/24 07:55 03/10/24 07:55 Medications Medications Current Medications Acetaminophen (Acetaminophen 325 Mg Tablet) 975 mg PO TID PRN PRN Reason: Fever Or Pain Last Admin: 04/12/24 05:22 Dose: 975 mg Al Hydroxide/Mg Hydroxide (Magnesium Hydrox/Alum Hydrox 30 Ml Oral.Susp) 30 ml PO Q6H PRN PRN Reason: Heartburn/Nausea Atorvastatin Calcium (Atorvastatin Calcium 20 Mg Tablet) 20 mg PO DAILY [facility] Last Admin: 04/19/24 08:31 Dose: 20 mg Bisacodyl (Bisacodyl 10 Mg Supp.Rect) 10 mg [place] DAILY PRN PRN Reason: Constipation Last Admin: 04/02/24 12:43 Dose: 10 mg Divalproex Sodium (Divalproex Sodium Sprinkles 125 Mg Camilo.) 250 mg PO TID [facility] Last Admin: 04/19/24 20:54 Dose: 250 mg Donepezil HCl (Donepezil Hcl 5 Mg Tablet) 5 mg PO BEDTIME [facility] Last Admin: 04/19/24 20:54 Dose: 5 mg Famotidine (Famotidine 20 Mg Tablet) 20 mg PO BEDTIME [facility] Last Admin: 04/19/24 20:54 Dose: 20 mg Levothyroxine Sodium (Levothyroxine Sodium 75 Mcg Tablet) 75 mcg PO DAILY@0600 [facility] Last Admin: 04/19/24 06:04 Dose: 75 mcg Loratadine (Loratadine 10 Mg Tablet) 10 mg PO DAILY [facility] Last Admin: 04/19/24 08:30 Dose: 10 mg Lorazepam (Lorazepam 0.5 Mg Tablet) 0.5 mg PO TID PRN PRN Reason: anxiety/mild agitation Magnesium Hydroxide (Milk Of Magnesia 30 Ml Oral.Susp) 30 ml PO DAILY PRN PRN Reason: Constipation Last Admin: 03/28/24 20:36 Dose: 30 ml Olanzapine (Olanzapine 2.5 Mg Tablet) 2.5 mg PO TID [facility] Last Admin: 04/19/24 20:55 Dose: 2.5 mg Olanzapine (Olanzapine 5 Mg Tablet) 5 mg PO Q6H PRN PRN Reason: agitation Last Admin: 04/19/24 20:54 Dose: 5 mg Oxybutynin Chloride (Oxybutynin Chloride Er 5 Mg Tab.Er.24) 15 mg PO DAILY [facility] Last Admin: 04/19/24 08:30 Dose: 15 mg Trazodone HCl (Trazodone Hcl 50 Mg Tablet) 50 mg PO BEDTIME PRN PRN Reason: sleep Last Admin: 04/19/24 20:54 Dose: 50 mg Trazodone HCl (Trazodone Hcl 50 Mg Tablet) 50 mg PO BEDTIME [facility] Last Admin: 04/19/24 20:53 Dose: 50 mg Allergies Allergies Allergy/AdvReac Type Severity Reaction Status Date / Time sulfamethoxazole Allergy Unknown Verified 03/03/24 14:32 [From Sulfamethoxazole-Trimethoprim] trimethoprim Allergy Unknown Verified 03/03/24 14:32 [From Sulfamethoxazole-Trimethoprim] Assessment & Plan Assessment & Plan (1) Major neurocognitive disorder due to Alzheimer's disease, without behavioral disturbance: Status: Acute Code(s): G30.9 - Alzheimer's disease, unspecified; F02.80 - Dementia in other diseases classified elsewhere, unspecified severity, without behavioral disturbance, psychotic disturbance, mood disturbance, and anxiety Plan Elderly female with a past history of Alzheimer's, recently in a subacute rehab due to subdural hematoma referred for exacerbation of agitation. The patient is a very poor historian unable to provide any details still very agitated. Plan 03/20 continue tx. will check ammonia and depakote level on 03/22/24 at 7am. 03/21: continue current management and treatment plan. check labs tomorrow. 03/22: Continue current management and treatment plan. Check Depakote level and ammonia on 03/23. 03/23 increase trazodone up to 25 p.o. t.i.d. to target anxiety. 03/24 keep same treatment. 03/25 keep same treatment 03/26 keep same treatment 03/27 trazodone will be lowered to 12.5 p.o. t.i.d. 03/29/24 Increase lorazepam 0.5 t.i.d. p.r.n. 03/30 keep same treatment. 03/31 keep same treatment 04/01 keep same treatment 04/02 keep same treatment 04/03 Will schedule trazodone 50mg po qhs (slept only 2 hrs.), increase olanzapine 2.5mg po TID. 04/04 more redirectable from changes of meds yesterday- 04/05- CTP 04/06- continue plan of care 04/07 continue same treatment 04/08 keep same treatment 04/09 keep same treatment 04/10 paperwork for information of healthcare proxy was done. 04/11 continue current plans and regimen 04/12: Continue current regimen and plans. 04/13: Continue current regimen and plans 04/14 continue same treatment 04/15 continue same treatment 04/16 continue same treatment 04/17 today we have the court hearing for affirmation of healthcare proxy. 04/18-04/19 continue tx plan -labs drawn and pt with DIANA and mild hyponatremia; -consult placed; encouraging fluid Patient educated on: diagnosis Informed Consent: does not understand Reason for continued inpatient stay Substantial Risk for: inability to function Time Spent With Patient Time: Total time managing care of this patient today ____ minutes.
[2024-04-19] MEDS: LORazepam 0.5 MG TABLET PO (22:17)
[2024-04-20] MEDS: Levothyroxine Sodium 75 MCG TABLET PO (06:57)
--- NOTE | 2024-04-20 09:24 | P.PNPSI_ITS ---
Subjective Subjective Date of Service: 04/20/24 Reason For Visit: combative behaviors Subjective Notes: Conditional Voluntary Healthcare Proxy: Yes Interim History: The nursing staff reported the patient had been exit seeking but easily redirectable, she slept 6 hours. On interview the patient remains pleasantly confused easily redirectable, waiting for placement. Mental Status Exam Mental Status Exam Patient Appearance: Appropriate Patient Orientation: Person and Situation Level of Consciousness: Awake and Appropriate Patient Behavior: Guarded and Passive Mood Description: Withdrawn Affect Description: Constricted Patient Cognition Impaired: Yes Ability to Follow Directions: Fair Speech Pattern: Clear Hallucinations: None Delusions: Paranoid Ideation and Ideas of Reference Thought Process: Distracted and Slowed Thinking Thought Content: positive for [place] and positive for Poverty of Content Judgement: Poor Diagnostics Vital Signs (24Hr): Vital Signs - 24 hr 04/19/24 20:00 Temperature 97.4 F Pulse Rate 95 Respiratory Rate 18 Blood Pressure 118/56 L Pulse Oximetry 92 Oxygen Delivery Method Room Air BMI result Body Mass Index 19.7 Labs 03/10/24 07:55 03/10/24 07:55 Medications Medications Current Medications Acetaminophen (Acetaminophen 325 Mg Tablet) 975 mg PO TID PRN PRN Reason: Fever Or Pain Last Admin: 04/12/24 05:22 Dose: 975 mg Al Hydroxide/Mg Hydroxide (Magnesium Hydrox/Alum Hydrox 30 Ml Oral.Susp) 30 ml PO Q6H PRN PRN Reason: Heartburn/Nausea Atorvastatin Calcium (Atorvastatin Calcium 20 Mg Tablet) 20 mg PO DAILY [facility] Last Admin: 04/19/24 08:31 Dose: 20 mg Bisacodyl (Bisacodyl 10 Mg Supp.Rect) 10 mg [place] DAILY PRN PRN Reason: Constipation Last Admin: 04/02/24 12:43 Dose: 10 mg Divalproex Sodium (Divalproex Sodium Sprinkles 125 Mg Camilo.) 250 mg PO TID [facility] Last Admin: 04/19/24 20:54 Dose: 250 mg Donepezil HCl (Donepezil Hcl 5 Mg Tablet) 5 mg PO BEDTIME [facility] Last Admin: 04/19/24 20:54 Dose: 5 mg Famotidine (Famotidine 20 Mg Tablet) 20 mg PO BEDTIME [facility] Last Admin: 04/19/24 20:54 Dose: 20 mg Levothyroxine Sodium (Levothyroxine Sodium 75 Mcg Tablet) 75 mcg PO DAILY@0600 [facility] Last Admin: 04/20/24 06:57 Dose: 75 mcg Loratadine (Loratadine 10 Mg Tablet) 10 mg PO DAILY [facility] Last Admin: 04/19/24 08:30 Dose: 10 mg Lorazepam (Lorazepam 0.5 Mg Tablet) 0.5 mg PO TID PRN PRN Reason: anxiety/mild agitation Last Admin: 04/19/24 22:17 Dose: 0.5 mg Magnesium Hydroxide (Milk Of Magnesia 30 Ml Oral.Susp) 30 ml PO DAILY PRN PRN Reason: Constipation Last Admin: 03/28/24 20:36 Dose: 30 ml Olanzapine (Olanzapine 2.5 Mg Tablet) 2.5 mg PO TID [facility] Last Admin: 04/19/24 20:55 Dose: 2.5 mg Olanzapine (Olanzapine 5 Mg Tablet) 5 mg PO Q6H PRN PRN Reason: agitation Last Admin: 04/19/24 20:54 Dose: 5 mg Oxybutynin Chloride (Oxybutynin Chloride Er 5 Mg Tab.Er.24) 15 mg PO DAILY [facility] Last Admin: 04/19/24 08:30 Dose: 15 mg Trazodone HCl (Trazodone Hcl 50 Mg Tablet) 50 mg PO BEDTIME PRN PRN Reason: sleep Last Admin: 04/19/24 22:17 Dose: 50 mg Trazodone HCl (Trazodone Hcl 50 Mg Tablet) 50 mg PO BEDTIME [facility] Last Admin: 04/19/24 20:53 Dose: 50 mg Allergies Allergies Allergy/AdvReac Type Severity Reaction Status Date / Time sulfamethoxazole Allergy Unknown Verified 03/03/24 14:32 [From Sulfamethoxazole-Trimethoprim] trimethoprim Allergy Unknown Verified 03/03/24 14:32 [From Sulfamethoxazole-Trimethoprim] Assessment & Plan Assessment & Plan (1) Major neurocognitive disorder due to Alzheimer's disease, without behavioral disturbance: Status: Acute Code(s): G30.9 - Alzheimer's disease, unspecified; F02.80 - Dementia in other diseases classified elsewhere, unspecified severity, without behavioral disturbance, psychotic disturbance, mood disturbance, and anxiety Plan Elderly female with a past history of Alzheimer's, recently in a subacute rehab due to subdural hematoma referred for exacerbation of agitation. The patient is a very poor historian unable to provide any details still very agitated. Plan 03/20 continue tx. will check ammonia and depakote level on 03/22/24 at 7am. 03/21: continue current management and treatment plan. check labs tomorrow. 03/22: Continue current management and treatment plan. Check Depakote level and ammonia on 03/23. 03/23 increase trazodone up to 25 p.o. t.i.d. to target anxiety. 03/24 keep same treatment. 03/25 keep same treatment 03/26 keep same treatment 03/27 trazodone will be lowered to 12.5 p.o. t.i.d. 03/29/24 Increase lorazepam 0.5 t.i.d. p.r.n. 03/30 keep same treatment. 03/31 keep same treatment 04/01 keep same treatment 04/02 keep same treatment 04/03 Will schedule trazodone 50mg po qhs (slept only 2 hrs.), increase olanzapine 2.5mg po TID. 04/04 more redirectable from changes of meds yesterday- 04/05- CTP 04/06- continue plan of care 04/07 continue same treatment 04/08 keep same treatment 04/09 keep same treatment 04/10 paperwork for information of healthcare proxy was done. 04/11 continue current plans and regimen 04/12: Continue current regimen and plans. 04/13: Continue current regimen and plans 04/14 continue same treatment 04/15 continue same treatment 04/16 continue same treatment 04/17 today we have the court hearing for affirmation of healthcare proxy. 04/18-04/19 continue tx plan -labs drawn and pt with DIANA and mild hyponatremia; -consult placed; encouraging fluid 04/20 keep same treatment Reason for continued inpatient stay Substantial Risk for: inability to function, rapid decompensation and med/psych decompensation Time Spent With Patient Time: Total time managing care of this patient today _20___ minutes.
[2024-04-20 11:34] VITALS: BP 122/70; PULSE 70; RESP 18; TEMP 36.6; O2SAT 96
[2024-04-20] MEDS: oxyBUTYnin chloride ER 5 MG TAB.ER.24 15 MG PO (11:35)
[2024-04-20] MEDS: Atorvastatin Calcium 20 MG TABLET PO (11:37)
[2024-04-20] MEDS: Divalproex Sodium Sprinkles 125 MG CAP.DR.SPR 250 MG PO ×3 (11:39→20:16)
[2024-04-20] MEDS: OLANZapine 2.5 MG TABLET PO ×3 (11:39→20:16)
[2024-04-20] MEDS: Loratadine 10 MG TABLET PO (11:39)
[2024-04-20 20:00] VITALS: BP 130/66; PULSE 85; RESP 16; TEMP 36.1; O2SAT 99
[2024-04-20] MEDS: traZODone HCL 50 MG TABLET PO ×2 (20:16→23:30)
[2024-04-20] MEDS: Donepezil HCl 5 MG TABLET PO (20:16)
[2024-04-20] MEDS: Famotidine 20 MG TABLET PO (20:16)
[2024-04-20] MEDS: OLANZapine 5 MG TABLET PO (23:30)
[2024-04-21] MEDS: Levothyroxine Sodium 75 MCG TABLET PO (05:58)
[2024-04-21] MEDS: Loratadine 10 MG TABLET PO (09:17)
[2024-04-21] MEDS: OLANZapine 2.5 MG TABLET PO ×3 (09:17→20:07)
[2024-04-21] MEDS: Divalproex Sodium Sprinkles 125 MG CAP.DR.SPR 250 MG PO ×3 (09:17→20:07)
[2024-04-21] MEDS: Atorvastatin Calcium 20 MG TABLET PO (09:18)
[2024-04-21] MEDS: oxyBUTYnin chloride ER 5 MG TAB.ER.24 15 MG PO (09:18)
--- NOTE | 2024-04-21 10:27 | P.PNPSI_ITS ---
Subjective Subjective Date of Service: 04/21/24 Reason For Visit: combative behaviors Subjective Notes: Conditional Voluntary Interim History: The nursing staff reported the patient no changes in his mental status, the social service worker reported that the after admission on court of the healthcare proxy was done. On interview the patient is pleasantly confused. Later on she complained of shortness of breath and for hospitalist consult that showed no new changes. Mental Status Exam Mental Status Exam Patient Appearance: Appropriate Patient Orientation: Person and Situation Level of Consciousness: Awake and Appropriate Patient Behavior: Guarded and Passive Mood Description: Withdrawn Affect Description: Constricted Patient Cognition Impaired: Yes Ability to Follow Directions: Good Speech Pattern: Clear Hallucinations: None Delusions: Ideas of Reference Thought Process: Distracted and Slowed Thinking Thought Content: positive for [place] and positive for Poverty of Content Judgement: Fair Diagnostics Vital Signs (24Hr): Vital Signs - 24 hr 04/20/24 11:34 04/20/24 20:00 Temperature 97.9 F 96.9 F Pulse Rate 70 85 Respiratory Rate 18 16 Blood Pressure 122/70 130/66 Pulse Oximetry 96 99 Oxygen Delivery Method Room Air Room Air BMI result Body Mass Index 19.7 Labs 04/21/24 15:02 04/21/24 15:02 Medications Medications Current Medications Acetaminophen (Acetaminophen 325 Mg Tablet) 975 mg PO TID PRN PRN Reason: Fever Or Pain Last Admin: 04/12/24 05:22 Dose: 975 mg Al Hydroxide/Mg Hydroxide (Magnesium Hydrox/Alum Hydrox 30 Ml Oral.Susp) 30 ml PO Q6H PRN PRN Reason: Heartburn/Nausea Atorvastatin Calcium (Atorvastatin Calcium 20 Mg Tablet) 20 mg PO DAILY [facility] Last Admin: 04/21/24 09:18 Dose: 20 mg Bisacodyl (Bisacodyl 10 Mg Supp.Rect) 10 mg [place] DAILY PRN PRN Reason: Constipation Last Admin: 04/02/24 12:43 Dose: 10 mg Divalproex Sodium (Divalproex Sodium Sprinkles 125 Mg Camiol.) 250 mg PO TID [facility] Last Admin: 04/21/24 09:17 Dose: 250 mg Donepezil HCl (Donepezil Hcl 5 Mg Tablet) 5 mg PO BEDTIME [facility] Last Admin: 04/20/24 20:16 Dose: 5 mg Famotidine (Famotidine 20 Mg Tablet) 20 mg PO BEDTIME [facility] Last Admin: 04/20/24 20:16 Dose: 20 mg Levothyroxine Sodium (Levothyroxine Sodium 75 Mcg Tablet) 75 mcg PO DAILY@0600 [facility] Last Admin: 04/21/24 05:58 Dose: 75 mcg Loratadine (Loratadine 10 Mg Tablet) 10 mg PO DAILY [facility] Last Admin: 04/21/24 09:17 Dose: 10 mg Lorazepam (Lorazepam 0.5 Mg Tablet) 0.5 mg PO TID PRN PRN Reason: anxiety/mild agitation Last Admin: 04/19/24 22:17 Dose: 0.5 mg Magnesium Hydroxide (Milk Of Magnesia 30 Ml Oral.Susp) 30 ml PO DAILY PRN PRN Reason: Constipation Last Admin: 03/28/24 20:36 Dose: 30 ml Olanzapine (Olanzapine 2.5 Mg Tablet) 2.5 mg PO TID [facility] Last Admin: 04/21/24 09:17 Dose: 2.5 mg Olanzapine (Olanzapine 5 Mg Tablet) 5 mg PO Q6H PRN PRN Reason: agitation Last Admin: 04/20/24 23:30 Dose: 5 mg Oxybutynin Chloride (Oxybutynin Chloride Er 5 Mg Tab.Er.24) 15 mg PO DAILY [facility] Last Admin: 04/21/24 09:18 Dose: 15 mg Trazodone HCl (Trazodone Hcl 50 Mg Tablet) 50 mg PO BEDTIME PRN PRN Reason: sleep Last Admin: 04/20/24 23:30 Dose: 50 mg Trazodone HCl (Trazodone Hcl 50 Mg Tablet) 50 mg PO BEDTIME [facility] Last Admin: 04/20/24 20:16 Dose: 50 mg Allergies Allergies Allergy/AdvReac Type Severity Reaction Status Date / Time sulfamethoxazole Allergy Unknown Verified 03/03/24 14:32 [From Sulfamethoxazole-Trimethoprim] trimethoprim Allergy Unknown Verified 03/03/24 14:32 [From Sulfamethoxazole-Trimethoprim] Assessment & Plan Assessment & Plan (1) Major neurocognitive disorder due to Alzheimer's disease, without behavioral disturbance: Status: Acute Code(s): G30.9 - Alzheimer's disease, unspecified; F02.80 - Dementia in other diseases classified elsewhere, unspecified severity, without behavioral disturbance, psychotic disturbance, mood disturbance, and anxiety Plan Elderly female with a past history of Alzheimer's, recently in a subacute rehab due to subdural hematoma referred for exacerbation of agitation. The patient is a very poor historian unable to provide any details still very agitated. Plan 03/20 continue tx. will check ammonia and depakote level on 03/22/24 at 7am. 03/21: continue current management and treatment plan. check labs tomorrow. 03/22: Continue current management and treatment plan. Check Depakote level and ammonia on 03/23. 03/23 increase trazodone up to 25 p.o. t.i.d. to target anxiety. 03/24 keep same treatment. 03/25 keep same treatment 03/26 keep same treatment 03/27 trazodone will be lowered to 12.5 p.o. t.i.d. 03/29/24 Increase lorazepam 0.5 t.i.d. p.r.n. 03/30 keep same treatment. 03/31 keep same treatment 04/01 keep same treatment 04/02 keep same treatment 04/03 Will schedule trazodone 50mg po qhs (slept only 2 hrs.), increase olanzapine 2.5mg po TID. 04/04 more redirectable from changes of meds yesterday- 04/05- CTP 04/06- continue plan of care 04/07 continue same treatment 04/08 keep same treatment 04/09 keep same treatment 04/10 paperwork for information of healthcare proxy was done. 04/11 continue current plans and regimen 04/12: Continue current regimen and plans. 04/13: Continue current regimen and plans 04/14 continue same treatment 04/15 continue same treatment 04/16 continue same treatment 04/17 today we have the court hearing for affirmation of healthcare proxy. 04/18-04/19 continue tx plan -labs drawn and pt with DIANA and mild hyponatremia; -consult placed; encouraging fluid 04/20 keep same treatment 04/21 keep same treatment Reason for continued inpatient stay Substantial Risk for: inability to function, rapid decompensation and med/psych decompensation Time Spent With Patient Time: Total time managing care of this patient today _20___ minutes.
[2024-04-21 14:05] VITALS: BP 184/99; PULSE 60; RESP 18; TEMP 36.5
[2024-04-21 15:05] LABS: MANUAL DIFF FLAG NO
[2024-04-21 15:07] LABS: Basophils Percent Auto 0.4 % (0-2); Eosinophils Absolute Auto 0.2 X10*3/uL (0.0-0.4); Eosinophils Percent Auto 3.2 % (0-4); Hematocrit 34.3 % (37.0-47.0); Hemoglobin 10.9 g/dl (12.0-16.0); Imm Gran Abs Auto 0.02 X10*3/uL (0.00-0.03); Imm Gran Pct Auto 0.3 % (0.0-0.4); Lymphocytes Absolute Auto 4.4 X10*3/uL (1.2-4.9); Lymphocytes Percent Auto 58.7 % (20-40); Mean Corpuscular HGB Conc 31.8 g/dl (31.0-35.0); Mean Corpuscular Hemoglobin 30.4 pg (27.0-33.0); Mean Corpuscular Volume 95.8 fL (80.0-98.0); Mean Platelet Volume 12.2 fL (9.4-12.3); Monocytes Absolute Auto 0.9 X10*3/uL (0.1-1.2); Monocytes Percent Auto 11.5 % (2-11); Neutrophils Percent Auto 25.9 % (45-73); Platelet Count 121 X10*3/uL (160-400); Red Blood Count 3.58 X10*6/uL (4.20-5.50); Red Cell Distribution Width 14.7 % (11.0-16.0); White Blood Count 7.6 X10*3/uL (4.8-10.8)
--- NOTE | 2024-04-21 15:27 | HO.HSGERICON ---
History of Present Illness Data of Consult Service Date: 04/21/24 Requesting physician: Amari Ruiz Primary Care Provider: Joseph Alejandro MD HPI Reason for consult: SOB, htn with nl pulse 78 yo F with Alzheimer's dementia, hx SDH, HLD, glaucoma, and hypothyroidism on [facility] since 03/04/24 for aggressive behavior. Consult called for above reasons. Pt unable to participate in history due to advanced dementia. But she is in no apparent distress with no dyspnea. I interviewed her RN who also noted no dyspnea. CXR was done which was clear. Single BP of 184/99 this afternoon but this morning it was 130/66 and generally has been normal over the last few weeks. Review of Systems Review of Systems: Yes all other systems are reviewed and are negative [facility] Medical History Dementia H/O: hypothyroidism Glaucoma Social History Household Members: Spouse Housing: House Do you presently have visiting nurse or other home services: Yes (visiting nurse every 6 months for assmts) Alcohol intake: former Comment: 1:1 supervision Patient Tobacco Use Status: Never used Tobacco Smoked in Last 30 Days: No Patient Interested in Nicotine Replacement: No Patient Given Instructions on How to Stop Smoking: No Second Hand Smoke Exposure: No Use of substances other than those prescribed or required for medical reasons: No Currently Displaying Signs/Symptoms of Drug Intoxication Withdrawal: No Any prior treatment program specific to substance use: No Spiritual Healthcare Practices: Pt. will sleep at least 6 hours a night. Christianity Healthcare Practices: Pt. will sleep at least 6 hours a night. Cultural Healthcare Practices: Pt. will sleep at least 6 hours a night. Advance Directives: Yes Advance Directives on File: Yes Advance Directives Date on File: 03/03/24 Do you have thoughts of harming others: None Do you have a plan to hurt others: No Plan Recently lost weight without trying: No Nutrition Risks: No Nutritional Risk Patient : No : No Poor oral hygiene: No Sexual orientation: Straight/Heterosexual Meds Allergies Allergy/AdvReac Type Severity Reaction Status Date / Time sulfamethoxazole Allergy Unknown Verified 03/03/24 14:32 [From Sulfamethoxazole-Trimethoprim] trimethoprim Allergy Unknown Verified 03/03/24 14:32 [From Sulfamethoxazole-Trimethoprim] Active Medications: Current Medications Acetaminophen (Acetaminophen 325 Mg Tablet) 975 mg PO TID PRN PRN Reason: Fever Or Pain Last Admin: 04/12/24 05:22 Dose: 975 mg Al Hydroxide/Mg Hydroxide (Magnesium Hydrox/Alum Hydrox 30 Ml Oral.Susp) 30 ml PO Q6H PRN PRN Reason: Heartburn/Nausea Atorvastatin Calcium (Atorvastatin Calcium 20 Mg Tablet) 20 mg PO DAILY [facility] Last Admin: 04/21/24 09:18 Dose: 20 mg Bisacodyl (Bisacodyl 10 Mg Supp.Rect) 10 mg RI DAILY PRN PRN Reason: Constipation Last Admin: 04/02/24 12:43 Dose: 10 mg Divalproex Sodium (Divalproex Sodium Sprinkles 125 Mg Cap.DrMaria FernandaSpr) 250 mg PO TID [facility] Last Admin: 04/21/24 09:17 Dose: 250 mg Donepezil HCl (Donepezil Hcl 5 Mg Tablet) 5 mg PO BEDTIME [facility] Last Admin: 04/20/24 20:16 Dose: 5 mg Famotidine (Famotidine 20 Mg Tablet) 20 mg PO BEDTIME [facility] Last Admin: 04/20/24 20:16 Dose: 20 mg Levothyroxine Sodium (Levothyroxine Sodium 75 Mcg Tablet) 75 mcg PO DAILY@0600 [facility] Last Admin: 04/21/24 05:58 Dose: 75 mcg Loratadine (Loratadine 10 Mg Tablet) 10 mg PO DAILY [facility] Last Admin: 04/21/24 09:17 Dose: 10 mg Lorazepam (Lorazepam 0.5 Mg Tablet) 0.5 mg PO TID PRN PRN Reason: anxiety/mild agitation Last Admin: 04/19/24 22:17 Dose: 0.5 mg Magnesium Hydroxide (Milk Of Magnesia 30 Ml Oral.Susp) 30 ml PO DAILY PRN PRN Reason: Constipation Last Admin: 03/28/24 20:36 Dose: 30 ml Olanzapine (Olanzapine 2.5 Mg Tablet) 2.5 mg PO TID [facility] Last Admin: 04/21/24 09:17 Dose: 2.5 mg Olanzapine (Olanzapine 5 Mg Tablet) 5 mg PO Q6H PRN PRN Reason: agitation Last Admin: 04/20/24 23:30 Dose: 5 mg Oxybutynin Chloride (Oxybutynin Chloride Er 5 Mg Tab.Er.24) 15 mg PO DAILY [facility] Last Admin: 04/21/24 09:18 Dose: 15 mg Trazodone HCl (Trazodone Hcl 50 Mg Tablet) 50 mg PO BEDTIME PRN PRN Reason: sleep Last Admin: 04/20/24 23:30 Dose: 50 mg Trazodone HCl (Trazodone Hcl 50 Mg Tablet) 50 mg PO BEDTIME [facility] Last Admin: 04/20/24 20:16 Dose: 50 mg Home Medications ?Medication ?Instructions ?Recorded ?Confirmed ?Last Taken ?Type acetaminophen 325 mg tablet 975 mg PO TID PRN Fever Or Pain 03/04/24 03/04/24 Unknown History atorvastatin 20 mg tablet 20 mg PO DAILY 03/04/24 03/04/24 Unknown History bisacodyl 10 mg rectal suppository 10 mg RI DAILY PRN Constipation 03/04/24 03/04/24 Unknown History cholecalciferol (vitamin D3) 50 50 mcg PO DAILY 03/04/24 03/04/24 Unknown History mcg (2,000 unit) tablet (Vitamin D3) divalproex 250 mg tablet,extended 250 mg PO TID 03/04/24 03/04/24 Unknown History release 24 hr donepezil 5 mg tablet 5 mg PO BEDTIME 03/04/24 03/04/24 Unknown History famotidine 20 mg tablet 20 mg PO BEDTIME 03/04/24 03/04/24 Unknown History fluticasone propionate 50 2 spray intranasal DAILY 03/04/24 03/04/24 Unknown History mcg/actuation nasal spray,suspension levothyroxine 75 mcg tablet 75 mcg PO DAILY@0600 03/04/24 03/04/24 Unknown History loratadine 10 mg tablet 10 mg PO DAILY 03/04/24 03/04/24 Unknown History lorazepam 0.5 mg tablet 0.5 mg PO BID PRN severe agitation 03/04/24 03/04/24 Unknown History magnesium hydroxide 400 mg/5 mL 30 ml PO DAILY PRN Constipation 03/04/24 03/04/24 Unknown History oral suspension (Milk of Magnesia) naloxone 4 mg/actuation nasal 1 spray intranasal Q3M PRN Opiate 03/04/24 03/04/24 Unknown History spray (Narcan) Reversal olanzapine 2.5 mg tablet 2.5 mg PO BID PRN Agitation 03/04/24 03/04/24 Unknown History olanzapine 2.5 mg tablet (Zyprexa) 2.5 mg PO BID 03/04/24 03/04/24 Unknown History oxybutynin chloride 15 mg 15 mg PO DAILY 03/04/24 03/04/24 Unknown History tablet,extended release 24 hr sodium phosphates 19 gram-7 118 ml RI DAILY PRN Constipation 03/04/24 03/04/24 Unknown History gram/118 mL enema (Fleet Enema) timolol maleate 0.5 % eye drops 1 drp ophthalmic (eye) DAILY 03/04/24 03/04/24 Unknown History trazodone 50 mg tablet 25 mg PO BEDTIME PRN Agitation 03/04/24 03/04/24 Unknown History trazodone 50 mg tablet 25 mg PO Q6H PRN Agitation 03/04/24 03/04/24 Unknown History Results Labs 04/21/24 15:02 03/10/24 07:55 Labs: Laboratory Results - last 24 hr 04/21/24 15:02 MCV 95.8 MCH 30.4 MCHC 31.8 RDW 14.7 Plt Count 121 L MPV 12.2 Immature Gran % (Auto) 0.3 Neut % (Auto) 25.9 L Lymph % (Auto) 58.7 H [place] % (Auto) 11.5 H Eos % (Auto) 3.2 Baso % (Auto) 0.4 Lymph # (Auto) 4.4 [place] # (Auto) 0.9 Eos # (Auto) 0.2 Baso # (Auto) 0.0 Abs Immat Gran (auto) 0.02 Absolute Neuts (auto) 2.0 Absolute Nucleated RBC 0.000 Nucleated RBC % (auto) 0.0 Imaging Radiologist's Impressions: Impressions Chest X-Ray 04/21/24 14:43 IMPRESSION: Clear lungs. Electronically signed by: Micheal Barreto MD 04/21/2024 03:04 PM [facility] Assessment and Plan (1) Elevated BP without diagnosis of hypertension: Status: Acute Plan 78 yo F with Alzheimer's dementia, hx SDH, HLD, glaucoma, and hypothyroidism on [facility] since 03/04/24 for aggressive behavior. Consult called for dyspnea and elevated BP. No dyspnea noted. Single isolated BP of 184/99 does not require treatment. Thank you for this consultation. We are signing off the case at this time. Please communicate with us if she develops any medical issues. Physical Exam Vital Signs: Last Vital Signs Temp 97.7 F 04/21/24 14:05 Pulse 60 04/21/24 14:05 Resp 18 04/21/24 14:05 BP 184/99 H 04/21/24 14:05 Pulse Ox 99 04/20/24 20:00 O2 Del Method Room Air 04/20/24 20:00 BMI result Body Mass Index 19.7 Gen: in no acute distress HEENT: sclera anicteric, moist mucus membranes Neck: supple Lungs: clear to auscultation bilaterally Heart: regular rate and rhythm, no murmurs Abd: soft, non-tender, non-distended Ext: no edema Skin: warm/well-perfused Neuro: alert, not answering orientation questions, moving all extremities Psych: impaired insight Neuro Cranial nerves: Yes Other cranial nerve findings present (does not participate in CN exam)
[2024-04-21 15:36] LABS: Alanine Aminotransferase 9 U/L (0-31); Anion Gap 12 (12-20); Aspartate Amino Transferase 24 U/L (5-31); Bilirubin Total 0.4 mg/dL (0.0-1.0); Blood Urea Nitrogen 14 mg/dL (9-16); Calcium 8.4 mg/dL (8.4-10.2); Carbon Dioxide 27 mmol/L (22-29); Chloride 99 mmol/L (96-108); Creatinine Clr Calc Pharmacy 43.9; Estimated Glomerular Filt Rate > 60; Glucose Random 96 mg/dL (60-115); Potassium 4.6 mmol/L (3.3-5.1); Sodium 133 mmol/L (135-145); Total Protein 5.5 g/dL (6.5-8.0)
[2024-04-21 16:29] LABS: Alkaline Phosphatase 109 U/L (39-117)
[2024-04-21] MEDS: Donepezil HCl 5 MG TABLET PO (20:07)
[2024-04-21] MEDS: traZODone HCL 50 MG TABLET PO (20:07)
[2024-04-21] MEDS: Famotidine 20 MG TABLET PO (20:07)
[2024-04-22] MEDS: Levothyroxine Sodium 75 MCG TABLET PO (05:39)
--- NOTE | 2024-04-22 09:49 | P.PNPSI_ITS ---
Subjective Subjective Date of Service: 04/22/24 Reason For Visit: combative behaviors Subjective Notes: Conditional Voluntary Healthcare Proxy: Yes Interim History: The nursing staff reported the patient took a shower, she had blood work and EKGs since she was having slight increase blood pressure. Hospitalist consult done and there was no evidence of new medical problems. The staff has noticed that she is pleasantly confused easily redirectable. On interview the patient denies new symptoms, waiting for placement. Mental Status Exam Mental Status Exam Patient Appearance: Appropriate Patient Orientation: Person Level of Consciousness: Awake Patient Behavior: Guarded and Passive Mood Description: Calm and Constricted Affect Description: Constricted Patient Cognition Impaired: Yes Ability to Follow Directions: Good Speech Pattern: Clear Hallucinations: None Delusions: Ideas of Reference Thought Process: Distracted and Slowed Thinking Thought Content: positive for [place] and positive for Poverty of Content Judgement: Fair Diagnostics Vital Signs (24Hr): Vital Signs - 24 hr 04/21/24 14:05 Temperature 97.7 F Pulse Rate 60 Respiratory Rate 18 Blood Pressure 184/99 H BMI result Body Mass Index 19.7 Labs 04/21/24 15:02 04/21/24 15:02 Labs: Laboratory Results - last 48 hr 04/21/24 15:02 WBC 7.6 RBC 3.58 L Hgb 10.9 L Hct 34.3 L MCV 95.8 MCH 30.4 MCHC 31.8 RDW 14.7 Plt Count 121 L MPV 12.2 Immature Gran % (Auto) 0.3 Neut % (Auto) 25.9 L Lymph % (Auto) 58.7 H [place] % (Auto) 11.5 H Eos % (Auto) 3.2 Baso % (Auto) 0.4 Lymph # (Auto) 4.4 [place] # (Auto) 0.9 Eos # (Auto) 0.2 Baso # (Auto) 0.0 Abs Immat Gran (auto) 0.02 Absolute Neuts (auto) 2.0 Absolute Nucleated RBC 0.000 Nucleated RBC % (auto) 0.0 Sodium 133 L Potassium 4.6 Chloride 99 Carbon Dioxide 27 Anion Gap 12 BUN 14 Creatinine 0.88 Estim Creat Clear Calc 43.9 Estimated GFR > 60 Random Glucose 96 Calcium 8.4 Total Bilirubin 0.4 AST 24 ALT 9 Alkaline Phosphatase 109 Total Protein 5.5 L Albumin 3.0 L Imaging Radiology Impressions: ITS Impressions Chest X-Ray 04/21/24 14:43 IMPRESSION: Clear lungs. Electronically signed by: Micheal Barreto MD 04/21/2024 03:04 PM [facility] Medications Medications Current Medications Acetaminophen (Acetaminophen 325 Mg Tablet) 975 mg PO TID PRN PRN Reason: Fever Or Pain Last Admin: 04/12/24 05:22 Dose: 975 mg Al Hydroxide/Mg Hydroxide (Magnesium Hydrox/Alum Hydrox 30 Ml Oral.Susp) 30 ml PO Q6H PRN PRN Reason: Heartburn/Nausea Atorvastatin Calcium (Atorvastatin Calcium 20 Mg Tablet) 20 mg PO DAILY [facility] Last Admin: 04/21/24 09:18 Dose: 20 mg Bisacodyl (Bisacodyl 10 Mg Supp.Rect) 10 mg MD DAILY PRN PRN Reason: Constipation Last Admin: 04/02/24 12:43 Dose: 10 mg Divalproex Sodium (Divalproex Sodium Sprinkles 125 Mg Camilo.) 250 mg PO TID [facility] Last Admin: 04/21/24 20:07 Dose: 250 mg Donepezil HCl (Donepezil Hcl 5 Mg Tablet) 5 mg PO BEDTIME [facility] Last Admin: 04/21/24 20:07 Dose: 5 mg Famotidine (Famotidine 20 Mg Tablet) 20 mg PO BEDTIME [facility] Last Admin: 04/21/24 20:07 Dose: 20 mg Levothyroxine Sodium (Levothyroxine Sodium 75 Mcg Tablet) 75 mcg PO DAILY@0600 [facility] Last Admin: 04/22/24 05:39 Dose: 75 mcg Loratadine (Loratadine 10 Mg Tablet) 10 mg PO DAILY [facility] Last Admin: 04/21/24 09:17 Dose: 10 mg Lorazepam (Lorazepam 0.5 Mg Tablet) 0.5 mg PO TID PRN PRN Reason: anxiety/mild agitation Last Admin: 04/19/24 22:17 Dose: 0.5 mg Magnesium Hydroxide (Milk Of Magnesia 30 Ml Oral.Susp) 30 ml PO DAILY PRN PRN Reason: Constipation Last Admin: 03/28/24 20:36 Dose: 30 ml Olanzapine (Olanzapine 2.5 Mg Tablet) 2.5 mg PO TID [facility] Last Admin: 04/21/24 20:07 Dose: 2.5 mg Olanzapine (Olanzapine 5 Mg Tablet) 5 mg PO Q6H PRN PRN Reason: agitation Last Admin: 04/20/24 23:30 Dose: 5 mg Oxybutynin Chloride (Oxybutynin Chloride Er 5 Mg Tab.Er.24) 15 mg PO DAILY [facility] Last Admin: 04/21/24 09:18 Dose: 15 mg Trazodone HCl (Trazodone Hcl 50 Mg Tablet) 50 mg PO BEDTIME PRN PRN Reason: sleep Last Admin: 04/20/24 23:30 Dose: 50 mg Trazodone HCl (Trazodone Hcl 50 Mg Tablet) 50 mg PO BEDTIME [facility] Last Admin: 04/21/24 20:07 Dose: 50 mg Allergies Allergies Allergy/AdvReac Type Severity Reaction Status Date / Time sulfamethoxazole Allergy Unknown Verified 03/03/24 14:32 [From Sulfamethoxazole-Trimethoprim] trimethoprim Allergy Unknown Verified 03/03/24 14:32 [From Sulfamethoxazole-Trimethoprim] Assessment & Plan Assessment & Plan (1) Major neurocognitive disorder due to Alzheimer's disease, without behavioral disturbance: Status: Acute Code(s): G30.9 - Alzheimer's disease, unspecified; F02.80 - Dementia in other diseases classified elsewhere, unspecified severity, without behavioral disturbance, psychotic disturbance, mood disturbance, and anxiety Plan Elderly female with a past history of Alzheimer's, recently in a subacute rehab due to subdural hematoma referred for exacerbation of agitation. The patient is a very poor historian unable to provide any details still very agitated. Plan 03/20 continue tx. will check ammonia and depakote level on 03/22/24 at 7am. 03/21: continue current management and treatment plan. check labs tomorrow. 03/22: Continue current management and treatment plan. Check Depakote level and ammonia on 03/23. 03/23 increase trazodone up to 25 p.o. t.i.d. to target anxiety. 03/24 keep same treatment. 03/25 keep same treatment 03/26 keep same treatment 03/27 trazodone will be lowered to 12.5 p.o. t.i.d. 03/29/24 Increase lorazepam 0.5 t.i.d. p.r.n. 03/30 keep same treatment. 03/31 keep same treatment 04/01 keep same treatment 04/02 keep same treatment 04/03 Will schedule trazodone 50mg po qhs (slept only 2 hrs.), increase olanzapine 2.5mg po TID. 04/04 more redirectable from changes of meds yesterday- 04/05- CTP 04/06- continue plan of care 04/07 continue same treatment 04/08 keep same treatment 04/09 keep same treatment 04/10 paperwork for information of healthcare proxy was done. 04/11 continue current plans and regimen 04/12: Continue current regimen and plans. 04/13: Continue current regimen and plans 04/14 continue same treatment 04/15 continue same treatment 04/16 continue same treatment 04/17 [address] hearing for affirmation of healthcare proxy. 04/18-04/19 continue tx plan -labs drawn and pt with DIANA and mild hyponatremia; -consult placed; encouraging fluid 04/20 keep same treatment 04/21 keep same treatment. 04/22 she is slightly over-sedated so we are changing Zyprexa to 2.5 p.o. b.i.d.. Blood work came back with better creatinine. Reason for continued inpatient stay Substantial Risk for: inability to function, rapid decompensation and med/psych decompensation Time Spent With Patient Time: Total time managing care of this patient today __20__ minutes.
[2024-04-22] MEDS: Atorvastatin Calcium 20 MG TABLET PO (10:22)
[2024-04-22] MEDS: oxyBUTYnin chloride ER 5 MG TAB.ER.24 15 MG PO (10:22)
[2024-04-22] MEDS: Loratadine 10 MG TABLET PO (10:23)
[2024-04-22] MEDS: Divalproex Sodium Sprinkles 125 MG CAP.DR.SPR 250 MG PO ×3 (10:23→21:53)
[2024-04-22 10:29] VITALS: BP 150/67; PULSE 97; RESP 16; TEMP 36.9; O2SAT 97
--- NOTE | 2024-04-22 15:09 | PM.EVENT ---
Event Note Date of Service: 04/23/24 Event Note: Pt is a 78-year-old female with a PMH significant for subdural hemorrhage, dementia, HLD, glaucoma, epilepsy, hypothyroidism, and mood disorder who was admitted to [facility] with hospitalist consult for SOB and elevated blood pressure. Pt seen and examined on the unit where she is noted to be using a walker to ambulate freely in the hallway without any apparent SOB or distress. Pt has advanced dementia and unable to provide detailed HPI. According to staff pt has not been noted to have either URI/pulmonary symptoms. No cough or difficulty breathing noted. No clear GLASS. CXR from earlier today negative for acute pulmonary process. No fever. No indication for additional workup or treatment for SOB at this time. As for elevated BP, pt's BP was noted to be 184/99 yesterday, but that reading seems anomalous: pt's BP has otherwise been mostly low or normotensive the past week. Will continue to monitor for now, but no indication to start any antihypertensives at the moment. Time Spent With Patient Time: Total time managing care of this patient today ____ minutes.
[2024-04-22 20:00] VITALS: BP 129/62; PULSE 96; RESP 16; TEMP 36.9; O2SAT 95
[2024-04-22] MEDS: Donepezil HCl 5 MG TABLET PO (21:53)
[2024-04-22] MEDS: traZODone HCL 50 MG TABLET PO (21:53)
[2024-04-22] MEDS: OLANZapine 2.5 MG TABLET PO (21:54)
[2024-04-22] MEDS: Famotidine 20 MG TABLET PO (21:54)
[2024-04-23] MEDS: Levothyroxine Sodium 75 MCG TABLET PO (06:19)
[2024-04-23 08:00] VITALS: BP 113/57; PULSE 84; RESP 16; TEMP 36.1; O2SAT 94
[2024-04-23] MEDS: oxyBUTYnin chloride ER 5 MG TAB.ER.24 15 MG PO (08:42)
[2024-04-23] MEDS: OLANZapine 2.5 MG TABLET PO ×2 (08:43→20:23)
[2024-04-23] MEDS: Atorvastatin Calcium 20 MG TABLET PO (08:43)
[2024-04-23] MEDS: Divalproex Sodium Sprinkles 125 MG CAP.DR.SPR 250 MG PO ×3 (08:43→20:23)
[2024-04-23] MEDS: Loratadine 10 MG TABLET PO (08:43)
--- NOTE | 2024-04-23 10:36 | P.PNPSI_ITS ---
Subjective Subjective Date of Service: 04/23/24 Reason For Visit: combative behaviors Subjective Notes: Conditional Voluntary Interim History: The nursing staff reported the patient slept 8 hours, she had been pleasantly confused with good appetite. The social organization professor is waiting for the [facility] clearance. On interview the patient is pleasantly confused no changes in her mental status. Mental Status Exam Mental Status Exam Patient Appearance: Appropriate Patient Orientation: Person and Situation Level of Consciousness: Awake and Appropriate Patient Behavior: Guarded and Passive Mood Description: Withdrawn Affect Description: Constricted Patient Cognition Impaired: Yes Ability to Follow Directions: Good Speech Pattern: Clear Hallucinations: None Delusions: Ideas of Reference Thought Process: Distracted and Slowed Thinking Thought Content: positive for [place] and positive for Poverty of Content Judgement: Fair Diagnostics Vital Signs (24Hr): Vital Signs - 24 hr 04/22/24 20:00 04/23/24 08:00 Temperature 98.4 F 96.9 F Pulse Rate 96 84 Respiratory Rate 16 16 Blood Pressure 129/62 113/57 L Pulse Oximetry 95 94 Oxygen Delivery Method Room Air BMI result Body Mass Index 19.7 Labs 04/21/24 15:02 04/21/24 15:02 Labs: Laboratory Results - last 48 hr 04/21/24 15:02 WBC 7.6 RBC 3.58 L Hgb 10.9 L Hct 34.3 L MCV 95.8 MCH 30.4 MCHC 31.8 RDW 14.7 Plt Count 121 L MPV 12.2 Immature Gran % (Auto) 0.3 Neut % (Auto) 25.9 L Lymph % (Auto) 58.7 H [place] % (Auto) 11.5 H Eos % (Auto) 3.2 Baso % (Auto) 0.4 Lymph # (Auto) 4.4 [place] # (Auto) 0.9 Eos # (Auto) 0.2 Baso # (Auto) 0.0 Abs Immat Gran (auto) 0.02 Absolute Neuts (auto) 2.0 Absolute Nucleated RBC 0.000 Nucleated RBC % (auto) 0.0 Sodium 133 L Potassium 4.6 Chloride 99 Carbon Dioxide 27 Anion Gap 12 BUN 14 Creatinine 0.88 Estim Creat Clear Calc 43.9 Estimated GFR > 60 Random Glucose 96 Calcium 8.4 Total Bilirubin 0.4 AST 24 ALT 9 Alkaline Phosphatase 109 Total Protein 5.5 L Albumin 3.0 L Imaging Radiology Impressions: ITS Impressions Chest X-Ray 04/21/24 14:43 IMPRESSION: Clear lungs. Electronically signed by: Micheal Barreto MD 04/21/2024 03:04 PM [facility] Medications Medications Current Medications Acetaminophen (Acetaminophen 325 Mg Tablet) 975 mg PO TID PRN PRN Reason: Fever Or Pain Last Admin: 04/12/24 05:22 Dose: 975 mg Al Hydroxide/Mg Hydroxide (Magnesium Hydrox/Alum Hydrox 30 Ml Oral.Susp) 30 ml PO Q6H PRN PRN Reason: Heartburn/Nausea Atorvastatin Calcium (Atorvastatin Calcium 20 Mg Tablet) 20 mg PO DAILY [facility] Last Admin: 04/23/24 08:43 Dose: 20 mg Bisacodyl (Bisacodyl 10 Mg Supp.Rect) 10 mg [place] DAILY PRN PRN Reason: Constipation Last Admin: 04/02/24 12:43 Dose: 10 mg Divalproex Sodium (Divalproex Sodium Sprinkles 125 Mg Cap.) 250 mg PO TID [facility] Last Admin: 04/23/24 08:43 Dose: 250 mg Donepezil HCl (Donepezil Hcl 5 Mg Tablet) 5 mg PO BEDTIME [facility] Last Admin: 04/22/24 21:53 Dose: 5 mg Famotidine (Famotidine 20 Mg Tablet) 20 mg PO BEDTIME [facility] Last Admin: 04/22/24 21:54 Dose: 20 mg Levothyroxine Sodium (Levothyroxine Sodium 75 Mcg Tablet) 75 mcg PO DAILY@0600 [facility] Last Admin: 04/23/24 06:19 Dose: 75 mcg Loratadine (Loratadine 10 Mg Tablet) 10 mg PO DAILY [facility] Last Admin: 04/23/24 08:43 Dose: 10 mg Lorazepam (Lorazepam 0.5 Mg Tablet) 0.5 mg PO TID PRN PRN Reason: anxiety/mild agitation Last Admin: 04/19/24 22:17 Dose: 0.5 mg Magnesium Hydroxide (Milk Of Magnesia 30 Ml Oral.Susp) 30 ml PO DAILY PRN PRN Reason: Constipation Last Admin: 03/28/24 20:36 Dose: 30 ml Olanzapine (Olanzapine 5 Mg Tablet) 5 mg PO Q6H PRN PRN Reason: agitation Last Admin: 04/20/24 23:30 Dose: 5 mg Olanzapine (Olanzapine 2.5 Mg Tablet) 2.5 mg PO BID [facility] Last Admin: 04/23/24 08:43 Dose: 2.5 mg Oxybutynin Chloride (Oxybutynin Chloride Er 5 Mg Tab.Er.24) 15 mg PO DAILY [facility] Last Admin: 04/23/24 08:42 Dose: 15 mg Trazodone HCl (Trazodone Hcl 50 Mg Tablet) 50 mg PO BEDTIME PRN PRN Reason: sleep Last Admin: 04/20/24 23:30 Dose: 50 mg Trazodone HCl (Trazodone Hcl 50 Mg Tablet) 50 mg PO BEDTIME [facility] Last Admin: 04/22/24 21:53 Dose: 50 mg Allergies Allergies Allergy/AdvReac Type Severity Reaction Status Date / Time sulfamethoxazole Allergy Unknown Verified 03/03/24 14:32 [From Sulfamethoxazole-Trimethoprim] trimethoprim Allergy Unknown Verified 03/03/24 14:32 [From Sulfamethoxazole-Trimethoprim] Assessment & Plan Assessment & Plan (1) Major neurocognitive disorder due to Alzheimer's disease, without behavioral disturbance: Status: Acute Code(s): G30.9 - Alzheimer's disease, unspecified; F02.80 - Dementia in other diseases classified elsewhere, unspecified severity, without behavioral disturbance, psychotic disturbance, mood disturbance, and anxiety Plan Elderly female with a past history of Alzheimer's, recently in a subacute rehab due to subdural hematoma referred for exacerbation of agitation. The patient is a very poor historian unable to provide any details still very agitated. Plan 03/20 continue tx. will check ammonia and depakote level on 03/22/24 at 7am. 03/21: continue current management and treatment plan. check labs tomorrow. 03/22: Continue current management and treatment plan. Check Depakote level and ammonia on 03/23. 03/23 increase trazodone up to 25 p.o. t.i.d. to target anxiety. 03/24 keep same treatment. 03/25 keep same treatment 03/26 keep same treatment 03/27 trazodone will be lowered to 12.5 p.o. t.i.d. 03/29/24 Increase lorazepam 0.5 t.i.d. p.r.n. 03/30 keep same treatment. 03/31 keep same treatment 04/01 keep same treatment 04/02 keep same treatment 04/03 Will schedule trazodone 50mg po qhs (slept only 2 hrs.), increase olanzapine 2.5mg po TID. 04/04 more redirectable from changes of meds yesterday- 04/05- CTP 04/06- continue plan of care 04/07 continue same treatment 04/08 keep same treatment 04/09 keep same treatment 04/10 paperwork for information of healthcare proxy was done. 04/11 continue current plans and regimen 04/12: Continue current regimen and plans. 04/13: Continue current regimen and plans 04/14 continue same treatment 04/15 continue same treatment 04/16 continue same treatment 04/17 [address] the court hearing for affirmation of healthcare proxy. 04/18-04/19 continue tx plan -labs drawn and pt with DIANA and mild hyponatremia; -consult placed; encouraging fluid 04/20 keep same treatment 04/21 keep same treatment. 04/22 she is slightly over-sedated so we are changing Zyprexa to 2.5 p.o. b.i.d.. Blood work came back with better creatinine. 04/23 keep same treatment Reason for continued inpatient stay Substantial Risk for: inability to function, rapid decompensation and med/psych decompensation Time Spent With Patient Time: Total time managing care of this patient today __20__ minutes.
[2024-04-23 20:00] VITALS: BP 111/54; PULSE 75; RESP 16; TEMP 36.9; O2SAT 95
[2024-04-23] MEDS: Donepezil HCl 5 MG TABLET PO (20:23)
[2024-04-23] MEDS: traZODone HCL 50 MG TABLET PO (20:23)
[2024-04-23] MEDS: Famotidine 20 MG TABLET PO (20:23)
[2024-04-24] MEDS: Levothyroxine Sodium 75 MCG TABLET PO (05:50)
[2024-04-24 10:19] VITALS: BP 112/57; PULSE 67; RESP 16; TEMP 36.4; O2SAT 95
[2024-04-24] MEDS: Divalproex Sodium Sprinkles 125 MG CAP.DR.SPR 250 MG PO ×3 (10:20→19:57)
[2024-04-24] MEDS: OLANZapine 2.5 MG TABLET PO ×2 (10:20→19:58)
[2024-04-24] MEDS: Loratadine 10 MG TABLET PO (10:20)
[2024-04-24] MEDS: Atorvastatin Calcium 20 MG TABLET PO (10:21)
[2024-04-24] MEDS: oxyBUTYnin chloride ER 5 MG TAB.ER.24 15 MG PO (10:21)
--- NOTE | 2024-04-24 13:50 | HO.PSYCHPN ---
Subjective Subjective Date of Service: 04/24/24 Reason For Visit: combative behaviors Subjective Notes: Conditional Voluntary Interim History: The nursing staff reported the patient had been exit seeking but easily redirectable. The staff has noticed that the patient choked yesterday so we are ordering speech and swallow. On interview the patient is pleasantly confused easily redirectable. Mental Status Exam Mental Status Exam Patient Appearance: Appropriate Patient Orientation: Person Level of Consciousness: Awake Patient Behavior: Guarded and Passive Mood Description: Withdrawn Affect Description: Blunted Patient Cognition Impaired: Yes Ability to Follow Directions: Good Speech Pattern: Clear Hallucinations: None Delusions: Ideas of Reference Thought Process: Distracted and Slowed Thinking Thought Content: positive for [place] and positive for Poverty of Content Judgement: Fair Diagnostics Vital Signs (24Hr): Vital Signs - 24 hr 04/23/24 20:00 04/24/24 10:19 Temperature 98.4 F 97.5 F Pulse Rate 75 67 Respiratory Rate 16 16 Blood Pressure 111/54 L 112/57 L Pulse Oximetry 95 95 Oxygen Delivery Method Room Air Room Air BMI result Body Mass Index 19.7 Labs 04/21/24 15:02 04/21/24 15:02 Imaging Radiology Impressions: ITS Impressions Chest X-Ray 04/21/24 14:43 IMPRESSION: Clear lungs. Electronically signed by: Micheal Barreto MD 04/21/2024 03:04 PM [facility] Medications Medications Current Medications Acetaminophen (Acetaminophen 325 Mg Tablet) 975 mg PO TID PRN PRN Reason: Fever Or Pain Last Admin: 04/12/24 05:22 Dose: 975 mg Al Hydroxide/Mg Hydroxide (Magnesium Hydrox/Alum Hydrox 30 Ml Oral.Susp) 30 ml PO Q6H PRN PRN Reason: Heartburn/Nausea Atorvastatin Calcium (Atorvastatin Calcium 20 Mg Tablet) 20 mg PO DAILY [facility] Last Admin: 04/24/24 10:21 Dose: 20 mg Bisacodyl (Bisacodyl 10 Mg Supp.Rect) 10 mg [place] DAILY PRN PRN Reason: Constipation Last Admin: 04/02/24 12:43 Dose: 10 mg Divalproex Sodium (Divalproex Sodium Sprinkles 125 Mg Cap.DrMaria FernandaSpr) 250 mg PO TID [facility] Last Admin: 04/24/24 10:20 Dose: 250 mg Donepezil HCl (Donepezil Hcl 5 Mg Tablet) 5 mg PO BEDTIME [facility] Last Admin: 04/23/24 20:23 Dose: 5 mg Famotidine (Famotidine 20 Mg Tablet) 20 mg PO BEDTIME [facility] Last Admin: 04/23/24 20:23 Dose: 20 mg Levothyroxine Sodium (Levothyroxine Sodium 75 Mcg Tablet) 75 mcg PO DAILY@0600 [facility] Last Admin: 04/24/24 05:50 Dose: 75 mcg Loratadine (Loratadine 10 Mg Tablet) 10 mg PO DAILY [facility] Last Admin: 04/24/24 10:20 Dose: 10 mg Lorazepam (Lorazepam 0.5 Mg Tablet) 0.5 mg PO TID PRN PRN Reason: anxiety/mild agitation Last Admin: 04/19/24 22:17 Dose: 0.5 mg Magnesium Hydroxide (Milk Of Magnesia 30 Ml Oral.Susp) 30 ml PO DAILY PRN PRN Reason: Constipation Last Admin: 03/28/24 20:36 Dose: 30 ml Olanzapine (Olanzapine 5 Mg Tablet) 5 mg PO Q6H PRN PRN Reason: agitation Last Admin: 04/20/24 23:30 Dose: 5 mg Olanzapine (Olanzapine 2.5 Mg Tablet) 2.5 mg PO BID [facility] Last Admin: 04/24/24 10:20 Dose: 2.5 mg Oxybutynin Chloride (Oxybutynin Chloride Er 5 Mg Tab.Er.24) 15 mg PO DAILY [facility] Last Admin: 04/24/24 10:21 Dose: 15 mg Trazodone HCl (Trazodone Hcl 50 Mg Tablet) 50 mg PO BEDTIME PRN PRN Reason: sleep Last Admin: 04/20/24 23:30 Dose: 50 mg Trazodone HCl (Trazodone Hcl 50 Mg Tablet) 50 mg PO BEDTIME [facility] Last Admin: 04/23/24 20:23 Dose: 50 mg Allergies Allergies Allergy/AdvReac Type Severity Reaction Status Date / Time sulfamethoxazole Allergy Unknown Verified 03/03/24 14:32 [From Sulfamethoxazole-Trimethoprim] trimethoprim Allergy Unknown Verified 03/03/24 14:32 [From Sulfamethoxazole-Trimethoprim] Assessment & Plan Assessment & Plan (1) Major neurocognitive disorder due to Alzheimer's disease, without behavioral disturbance: Status: Acute Code(s): G30.9 - Alzheimer's disease, unspecified; F02.80 - Dementia in other diseases classified elsewhere, unspecified severity, without behavioral disturbance, psychotic disturbance, mood disturbance, and anxiety Plan Elderly female with a past history of Alzheimer's, recently in a subacute rehab due to subdural hematoma referred for exacerbation of agitation. The patient is a very poor historian unable to provide any details still very agitated. Plan 03/20 continue tx. will check ammonia and depakote level on 03/22/24 at 7am. 03/21: continue current management and treatment plan. check labs tomorrow. 03/22: Continue current management and treatment plan. Check Depakote level and ammonia on 03/23. 03/23 increase trazodone up to 25 p.o. t.i.d. to target anxiety. 03/24 keep same treatment. 03/25 keep same treatment 03/26 keep same treatment 03/27 trazodone will be lowered to 12.5 p.o. t.i.d. 03/29/24 Increase lorazepam 0.5 t.i.d. p.r.n. 03/30 keep same treatment. 03/31 keep same treatment 04/01 keep same treatment 04/02 keep same treatment 04/03 Will schedule trazodone 50mg po qhs (slept only 2 hrs.), increase olanzapine 2.5mg po TID. 04/04 more redirectable from changes of meds yesterday- 04/05- CTP 04/06- continue plan of care 04/07 continue same treatment 04/08 keep same treatment 04/09 keep same treatment 04/10 paperwork for information of healthcare proxy was done. 04/11 continue current plans and regimen 04/12: Continue current regimen and plans. 04/13: Continue current regimen and plans 04/14 continue same treatment 04/15 continue same treatment 04/16 continue same treatment 04/17 today we have the court hearing for affirmation of healthcare proxy. 04/18-04/19 continue tx plan -labs drawn and pt with DIANA and mild hyponatremia; -consult placed; encouraging fluid 04/20 keep same treatment 04/21 keep same treatment. 04/22 she is slightly over-sedated so we are changing Zyprexa to 2.5 p.o. b.i.d.. Blood work came back with better creatinine. 04/23 keep same treatment. 04/24 keep same treatment, waiting for placement. Reason for continued inpatient stay Substantial Risk for: inability to function, rapid decompensation and med/psych decompensation Time Spent With Patient Time: Total time managing care of this patient today __20__ minutes.
--- NOTE | 2024-04-24 18:28 | MHC.SL.SWA ---
Speech Pathologist Impression: Oral Phase Dysphagia Risk of Aspiration Due to: Reduced Cognition Dysphasia Diet Status: No Change. AVOID STRAWS. Liquid Consistency and Strategies for Safe Swallow: Liquid Intake Recommendation: Thin Liquid Intake Strategies: Small Sips No Straws Solid Food Consistency: Dietary Recommendations: Grnd/Mech Altered (NDD2) Additional Modifications to Solid Foods: *AVOID STRAWS [employer] SUPERVISOR to f/u 1x to monitor Oral Medication Intake: Crushed with Puree Please contact the pharmacy regarding appropriate crushable or liquid drug formulations that are available whenever modified delivery is recommended. Compensatory Strategies and Precautions to be Taken for Safe Swallow: Sitting Upright (90 deg) No Straw Small Bites and Sips Alternate Liquids/Solids Rate of Ingestion Change Avoid Specific Foods Supervision While Eating and Drinking for Safe Swallow: Total Supervision (1:1) Foods to Avoid: Mixed consistencies Swallowing Recommended Treatments: Compens. Strategy Educat. Recommendation for Speech: 1 f/u [employer] Clinican/Clinical Fellow: No Supervisory Statement: I have reviewed and agree with the student/clinical fellow's documentation: No Speech Language Pathologist: Wanda Foley M.A., CCC-[employer] SUPERVISOR
[2024-04-24] MEDS: Famotidine 20 MG TABLET PO (19:57)
[2024-04-24] MEDS: traZODone HCL 50 MG TABLET PO (19:57)
[2024-04-24] MEDS: Donepezil HCl 5 MG TABLET PO (19:57)
[2024-04-24 20:00] VITALS: BP 132/86; PULSE 66; RESP 16; TEMP 36.8; O2SAT 95
[2024-04-25 10:23] VITALS: BP 113/58; PULSE 69; RESP 18; TEMP 36.4; O2SAT 97
[2024-04-25] MEDS: Divalproex Sodium Sprinkles 125 MG CAP.DR.SPR 250 MG PO ×3 (10:24→20:18)
[2024-04-25] MEDS: oxyBUTYnin chloride ER 5 MG TAB.ER.24 15 MG PO (10:24)
[2024-04-25] MEDS: Loratadine 10 MG TABLET PO (10:25)
[2024-04-25] MEDS: Levothyroxine Sodium 75 MCG TABLET PO (10:25)
[2024-04-25] MEDS: Atorvastatin Calcium 20 MG TABLET PO (10:25)
[2024-04-25] MEDS: OLANZapine 2.5 MG TABLET PO ×2 (10:25→20:20)
--- NOTE | 2024-04-25 14:56 | P.PNPSI_ITS ---
Subjective Subjective Date of Service: 04/25/24 Reason For Visit: combative behaviors Interim History: no questions or complaints. on 1:1 for falls. dementia. slept 8 hours. taking thin liquids. Mental Status Exam Mental Status Exam Patient Appearance: Appropriate Patient Orientation: Person Level of Consciousness: Awake Patient Behavior: Guarded and Passive Mood Description: Withdrawn Affect Description: Blunted Patient Cognition Impaired: Yes Ability to Follow Directions: Good Speech Pattern: Clear Hallucinations: None Delusions: Ideas of Reference Thought Process: Distracted and Slowed Thinking Thought Content: positive for [place] and positive for Poverty of Content Judgement: Fair Diagnostics Vital Signs (24Hr): Vital Signs - 24 hr 04/24/24 20:00 04/25/24 10:23 Temperature 98.2 F 97.6 F Pulse Rate 66 69 Respiratory Rate 16 18 Blood Pressure 132/86 113/58 L Pulse Oximetry 95 97 Oxygen Delivery Method Room Air Room Air BMI result Body Mass Index 19.7 Labs 04/21/24 15:02 04/21/24 15:02 Imaging Radiology Impressions: ITS Impressions Chest X-Ray 04/21/24 14:43 IMPRESSION: Clear lungs. Electronically signed by: Micheal Barreto MD 04/21/2024 03:04 PM [facility] [place] Medications Medications Current Medications Acetaminophen (Acetaminophen 325 Mg Tablet) 975 mg PO TID PRN PRN Reason: Fever Or Pain Last Admin: 04/12/24 05:22 Dose: 975 mg Al Hydroxide/Mg Hydroxide (Magnesium Hydrox/Alum Hydrox 30 Ml Oral.Susp) 30 ml PO Q6H PRN PRN Reason: Heartburn/Nausea Atorvastatin Calcium (Atorvastatin Calcium 20 Mg Tablet) 20 mg PO DAILY [facility] Last Admin: 04/25/24 10:25 Dose: 20 mg Bisacodyl (Bisacodyl 10 Mg Supp.Rect) 10 mg [place] DAILY PRN PRN Reason: Constipation Last Admin: 04/02/24 12:43 Dose: 10 mg Divalproex Sodium (Divalproex Sodium Sprinkles 125 Mg Cap.DrMaria FernandaSpr) 250 mg PO TID [facility] Last Admin: 04/25/24 14:36 Dose: 250 mg Donepezil HCl (Donepezil Hcl 5 Mg Tablet) 5 mg PO BEDTIME [facility] Last Admin: 04/24/24 19:57 Dose: 5 mg Famotidine (Famotidine 20 Mg Tablet) 20 mg PO BEDTIME [facility] Last Admin: 04/24/24 19:57 Dose: 20 mg Levothyroxine Sodium (Levothyroxine Sodium 75 Mcg Tablet) 75 mcg PO DAILY@0600 [facility] Last Admin: 04/25/24 10:25 Dose: 75 mcg Loratadine (Loratadine 10 Mg Tablet) 10 mg PO DAILY [facility] Last Admin: 04/25/24 10:25 Dose: 10 mg Lorazepam (Lorazepam 0.5 Mg Tablet) 0.5 mg PO TID PRN PRN Reason: anxiety/mild agitation Last Admin: 04/19/24 22:17 Dose: 0.5 mg Magnesium Hydroxide (Milk Of Magnesia 30 Ml Oral.Susp) 30 ml PO DAILY PRN PRN Reason: Constipation Last Admin: 03/28/24 20:36 Dose: 30 ml Olanzapine (Olanzapine 5 Mg Tablet) 5 mg PO Q6H PRN PRN Reason: agitation Last Admin: 04/20/24 23:30 Dose: 5 mg Olanzapine (Olanzapine 2.5 Mg Tablet) 2.5 mg PO BID [facility] Last Admin: 04/25/24 10:25 Dose: 2.5 mg Oxybutynin Chloride (Oxybutynin Chloride Er 5 Mg Tab.Er.24) 15 mg PO DAILY [facility] Last Admin: 04/25/24 10:24 Dose: 15 mg Trazodone HCl (Trazodone Hcl 50 Mg Tablet) 50 mg PO BEDTIME PRN PRN Reason: sleep Last Admin: 04/20/24 23:30 Dose: 50 mg Trazodone HCl (Trazodone Hcl 50 Mg Tablet) 50 mg PO BEDTIME [facility] Last Admin: 04/24/24 19:57 Dose: 50 mg Allergies Allergies Allergy/AdvReac Type Severity Reaction Status Date / Time sulfamethoxazole Allergy Unknown Verified 03/03/24 14:32 [From Sulfamethoxazole-Trimethoprim] trimethoprim Allergy Unknown Verified 03/03/24 14:32 [From Sulfamethoxazole-Trimethoprim] Assessment & Plan Assessment & Plan (1) Major neurocognitive disorder due to Alzheimer's disease, without behavioral disturbance: Status: Acute Code(s): G30.9 - Alzheimer's disease, unspecified; F02.80 - Dementia in other diseases classified elsewhere, unspecified severity, without behavioral disturbance, psychotic disturbance, mood disturbance, and anxiety Plan Elderly female with a past history of Alzheimer's, recently in a subacute rehab due to subdural hematoma referred for exacerbation of agitation. The patient is a very poor historian unable to provide any details still very agitated. Plan 03/20 continue tx. will check ammonia and depakote level on 03/22/24 at 7am. 03/21: continue current management and treatment plan. check labs tomorrow. 03/22: Continue current management and treatment plan. Check Depakote level and ammonia on 03/23. 03/23 increase trazodone up to 25 p.o. t.i.d. to target anxiety. 03/24 keep same treatment. 03/25 keep same treatment 03/26 keep same treatment 03/27 trazodone will be lowered to 12.5 p.o. t.i.d. 03/29/24 Increase lorazepam 0.5 t.i.d. p.r.n. 03/30 keep same treatment. 03/31 keep same treatment 04/01 keep same treatment 04/02 keep same treatment 04/03 Will schedule trazodone 50mg po qhs (slept only 2 hrs.), increase olanzapine 2.5mg po TID. 04/04 more redirectable from changes of meds yesterday- 04/05- CTP 04/06- continue plan of care 04/07 continue same treatment 04/08 keep same treatment 04/09 keep same treatment 04/10 paperwork for information of healthcare proxy was done. 04/11 continue current plans and regimen 04/12: Continue current regimen and plans. 04/13: Continue current regimen and plans 04/14 continue same treatment 04/15 continue same treatment 04/16 continue same treatment 04/17 today we have the court hearing for affirmation of healthcare proxy. 04/18-04/19 continue tx plan -labs drawn and pt with DIANA and mild hyponatremia; -consult placed; encouraging fluid 04/20 keep same treatment 04/21 keep same treatment. 04/22 she is slightly over-sedated so we are changing Zyprexa to 2.5 p.o. b.i.d.. Blood work came back with better creatinine. 04/23 keep same treatment. 04/24 keep same treatment, waiting for placement. 04/25: no change in presentation. continue current mgmt. Reason for continued inpatient stay Substantial Risk for: inability to function Time Spent With Patient Time: Total time managing care of this patient today ____ minutes.
[2024-04-25 17:45] VITALS: BP 146/71; PULSE 87; TEMP 36; O2SAT 95
--- NOTE | 2024-04-25 17:55 | PC.NURSE ---
Addendum entered by Chioma Pena RN 04/25/24 18:38: Incident happened at 17:25. Original Note: Jeannie Mascorro had a witnessed fall in her room at 18:25. She reportedly was fixing a shoe and lost her balance falling backwards into the other pt bed. It is unknown if she hit her head. 1:1 reports that she hit her right side on the other pt bed rail, small red abrasion noticed on right flank, no visible or palpable contusions on head, back or other areas. Patient, though confused reports that she did not hit her head. Vitals are WNL, pupils are even and reactive, pt following directions, bilateral strength even, pt acting at baseline, provider notified.
--- NOTE | 2024-04-25 18:31 | P.EN_ITS ---
Event Note Date of Service: 04/25/24 Event Note: Pt is a 78-year-old female admitted to [facility] with hospitalist consult for witnessed fall in room. Pt was between the beds in her room attempting to put on her slippers when she fell sideways to her left, hitting the bedside table with her upper back and possibly head. Pt apparently subsequently walked to the kitchen area and back as well as to the bathroom where she was noted to have a difficult time producing urine. Pt seen and evaluated in her room where she is resting comfortably in bed. Pt has no acute medical complaints at this time. Denies any musculoskeletal pain. No headache. Denies lightheadedness or dizziness. Plan: We will get imaging to rule out any fracture or intracranial abnormality: CT of head and cervical spine, x-ray of hips and pelvis bilaterally Will check UA given difficulty aerating and possible increase in confusion Check orthostatics Encourage p.o. hydration Time Spent With Patient Time: Total time managing care of this patient today ____ minutes.
[2024-04-25 20:00] VITALS: BP 137/68; PULSE 76; RESP 16; TEMP 36.8; O2SAT 95
[2024-04-25] MEDS: Famotidine 20 MG TABLET PO (20:18)
[2024-04-25] MEDS: Acetaminophen 325 MG TABLET 975 MG PO (20:19)
[2024-04-25] MEDS: Donepezil HCl 5 MG TABLET PO (20:19)
[2024-04-25] MEDS: LORazepam 0.5 MG TABLET PO (20:19)
[2024-04-25] MEDS: traZODone HCL 50 MG TABLET PO (20:20)
[2024-04-25 23:33] LABS: Appearance Urine Clear; Color Urine Yellow; Glucose Urine UA Negative (Negative); Leukocyte Esterase Urine Moderate (2+) (Negative); Nitrite Urine Negative (Negative); UMIC TRIGGER UACC YES; Urine Blood Negative (Negative); Urine Ketones Negative (Negative); Urine Protein Negative (Neg-Trace)
[2024-04-26] VITALS (7 sets, daily range): BP systolic 101–176; BP diastolic 61–84; PULSE 60–101; RESP 18; TEMP 36.4–37.2; O2SAT 98
[2024-04-26 00:06] LABS: Bacteria Urine None Seen (None Seen); Hyaline Casts Urine 0-2 /LPF (0-2); RBC Urine 0-2 /HPF (0-2); Squamous Epithelial Cell Urine 0-2 /HPF (0-2); UACC Culture Trigger YES; WBC Urine 0-5 /HPF (0-5)
[2024-04-26] MEDS: Levothyroxine Sodium 75 MCG TABLET PO (06:31)
[2024-04-26] MEDS: oxyBUTYnin chloride ER 5 MG TAB.ER.24 15 MG PO (09:22)
[2024-04-26] MEDS: Atorvastatin Calcium 20 MG TABLET PO (09:22)
[2024-04-26] MEDS: OLANZapine 2.5 MG TABLET PO ×2 (09:23→20:52)
[2024-04-26] MEDS: Divalproex Sodium Sprinkles 125 MG CAP.DR.SPR 250 MG PO ×3 (09:23→20:51)
[2024-04-26] MEDS: Loratadine 10 MG TABLET PO (09:23)
--- NOTE | 2024-04-26 13:41 | HO.PSYCHPN ---
Subjective Subjective Date of Service: 04/26/24 Reason For Visit: combative behaviors Interim History: no questions or complaints. per staff, on 1:1. fell last night, head CT and xray WNL. UA NEG. orthostatic hypotension. Mental Status Exam Mental Status Exam Patient Appearance: Appropriate Patient Orientation: Person Level of Consciousness: Awake Patient Behavior: Guarded and Passive Mood Description: Withdrawn Affect Description: Blunted Patient Cognition Impaired: Yes Ability to Follow Directions: Good Speech Pattern: Clear Hallucinations: None Delusions: Ideas of Reference Thought Process: Distracted and Slowed Thinking Thought Content: positive for [place] and positive for Poverty of Content Judgement: Fair Diagnostics Vital Signs (24Hr): Vital Signs - 24 hr 04/25/24 17:45 04/25/24 20:00 04/26/24 08:30 Temperature 96.8 F 98.2 F 97.5 F Pulse Rate 87 76 60 Respiratory Rate 16 18 Blood Pressure 146/71 H 137/68 122/68 Pulse Oximetry 95 95 98 Oxygen Delivery Method Room Air Room Air Room Air 04/26/24 08:35 04/26/24 08:38 04/26/24 08:41 Temperature Pulse Rate 68 72 72 Respiratory Rate Blood Pressure 140/65 H 142/65 H 101/61 Pulse Oximetry Oxygen Delivery Method BMI result Body Mass Index 19.7 Labs 04/21/24 15:02 04/21/24 15:02 Labs: Laboratory Results - last 48 hr 04/25/24 21:15 Urine Color Yellow Urine Appearance Clear Urine pH 8.0 Ur Specific [place] 1.010 Urine Protein Negative Urine Glucose (UA) Negative Urine Ketones Negative Urine Blood Negative Urine Nitrite Negative Ur Leukocyte Esterase Moderate (2+) H Urine RBC 0-2 Urine WBC 0-5 Ur Squamous Epith Cells 0-2 Urine Bacteria None Seen Hyaline Casts 0-2 Imaging Radiology Impressions: ITS Impressions Chest X-Ray 04/21/24 14:43 IMPRESSION: Clear lungs. Electronically signed by: Micheal Barreto MD 04/21/2024 03:04 PM [facility] Medications Medications Current Medications Acetaminophen (Acetaminophen 325 Mg Tablet) 975 mg PO TID PRN PRN Reason: Fever Or Pain Last Admin: 04/25/24 20:19 Dose: 975 mg Al Hydroxide/Mg Hydroxide (Magnesium Hydrox/Alum Hydrox 30 Ml Oral.Susp) 30 ml PO Q6H PRN PRN Reason: Heartburn/Nausea Atorvastatin Calcium (Atorvastatin Calcium 20 Mg Tablet) 20 mg PO DAILY [facility] Last Admin: 04/26/24 09:22 Dose: 20 mg Bisacodyl (Bisacodyl 10 Mg Supp.Rect) 10 mg [place] DAILY PRN PRN Reason: Constipation Last Admin: 04/02/24 12:43 Dose: 10 mg Divalproex Sodium (Divalproex Sodium Sprinkles 125 Mg Cap.Spr) 250 mg PO TID [facility] Last Admin: 04/26/24 09:23 Dose: 250 mg Donepezil HCl (Donepezil Hcl 5 Mg Tablet) 5 mg PO BEDTIME [facility] Last Admin: 04/25/24 20:19 Dose: 5 mg Famotidine (Famotidine 20 Mg Tablet) 20 mg PO BEDTIME [facility] Last Admin: 04/25/24 20:18 Dose: 20 mg Levothyroxine Sodium (Levothyroxine Sodium 75 Mcg Tablet) 75 mcg PO DAILY@0600 [facility] Last Admin: 04/26/24 06:31 Dose: 75 mcg Loratadine (Loratadine 10 Mg Tablet) 10 mg PO DAILY [facility] Last Admin: 04/26/24 09:23 Dose: 10 mg Lorazepam (Lorazepam 0.5 Mg Tablet) 0.5 mg PO TID PRN PRN Reason: anxiety/mild agitation Last Admin: 04/25/24 20:19 Dose: 0.5 mg Magnesium Hydroxide (Milk Of Magnesia 30 Ml Oral.Susp) 30 ml PO DAILY PRN PRN Reason: Constipation Last Admin: 03/28/24 20:36 Dose: 30 ml Olanzapine (Olanzapine 5 Mg Tablet) 5 mg PO Q6H PRN PRN Reason: agitation Last Admin: 04/20/24 23:30 Dose: 5 mg Olanzapine (Olanzapine 2.5 Mg Tablet) 2.5 mg PO BID [facility] Last Admin: 04/26/24 09:23 Dose: 2.5 mg Oxybutynin Chloride (Oxybutynin Chloride Er 5 Mg Tab.Er.24) 15 mg PO DAILY [facility] Last Admin: 04/26/24 09:22 Dose: 15 mg Trazodone HCl (Trazodone Hcl 50 Mg Tablet) 50 mg PO BEDTIME PRN PRN Reason: sleep Last Admin: 04/25/24 20:20 Dose: 50 mg Trazodone HCl (Trazodone Hcl 50 Mg Tablet) 50 mg PO BEDTIME [facility] Last Admin: 04/26/24 03:17 Dose: Not Given Allergies Allergies Allergy/AdvReac Type Severity Reaction Status Date / Time sulfamethoxazole Allergy Unknown Verified 03/03/24 14:32 [From Sulfamethoxazole-Trimethoprim] trimethoprim Allergy Unknown Verified 03/03/24 14:32 [From Sulfamethoxazole-Trimethoprim] Assessment & Plan Assessment & Plan (1) Major neurocognitive disorder due to Alzheimer's disease, without behavioral disturbance: Status: Acute Code(s): G30.9 - Alzheimer's disease, unspecified; F02.80 - Dementia in other diseases classified elsewhere, unspecified severity, without behavioral disturbance, psychotic disturbance, mood disturbance, and anxiety Plan Elderly female with a past history of Alzheimer's, recently in a subacute rehab due to subdural hematoma referred for exacerbation of agitation. The patient is a very poor historian unable to provide any details still very agitated. Plan 03/20 continue tx. will check ammonia and depakote level on 03/22/24 at 7am. 03/21: continue current management and treatment plan. check labs tomorrow. 03/22: Continue current management and treatment plan. Check Depakote level and ammonia on 03/23. 03/23 increase trazodone up to 25 p.o. t.i.d. to target anxiety. 03/24 keep same treatment. 03/25 keep same treatment 03/26 keep same treatment 03/27 trazodone will be lowered to 12.5 p.o. t.i.d. 03/29/24 Increase lorazepam 0.5 t.i.d. p.r.n. 03/30 keep same treatment. 03/31 keep same treatment 04/01 keep same treatment 04/02 keep same treatment 04/03 Will schedule trazodone 50mg po qhs (slept only 2 hrs.), increase olanzapine 2.5mg po TID. 04/04 more redirectable from changes of meds yesterday- 04/05- CTP 04/06- continue plan of care 04/07 continue same treatment 04/08 keep same treatment 04/09 keep same treatment 04/10 paperwork for information of healthcare proxy was done. 04/11 continue current plans and regimen 04/12: Continue current regimen and plans. 04/13: Continue current regimen and plans 04/14 continue same treatment 04/15 continue same treatment 04/16 continue same treatment 04/17 [address] the court hearing for affirmation of healthcare proxy. 04/18-04/19 continue tx plan -labs drawn and pt with DIANA and mild hyponatremia; -consult placed; encouraging fluid 04/20 keep same treatment 04/21 keep same treatment. 04/22 she is slightly over-sedated so we are changing Zyprexa to 2.5 p.o. b.i.d.. Blood work came back with better creatinine. 04/23 keep same treatment. 04/24 keep same treatment, waiting for placement. 04/25: no change in presentation. continue current mgmt. 04/26: orthostatic hypotension, fell last night. remains on 1:1. encourage fluids, continue current mgmt. Reason for continued inpatient stay Substantial Risk for: inability to function Time Spent With Patient Time: Total time managing care of this patient today ____ minutes.
[2024-04-26] MEDS: Famotidine 20 MG TABLET PO (20:50)
[2024-04-26] MEDS: Donepezil HCl 5 MG TABLET PO (20:50)
[2024-04-26] MEDS: traZODone HCL 50 MG TABLET PO ×2 (20:51)
[2024-04-26] MEDS: LORazepam 0.5 MG TABLET PO (22:05)
[2024-04-26] MEDS: OLANZapine 5 MG TABLET PO (22:05)
[2024-04-27] MEDS: Levothyroxine Sodium 75 MCG TABLET PO (07:00)
[2024-04-27 08:51] VITALS: BP 120/63; PULSE 72; RESP 18; TEMP 35.7; O2SAT 96
[2024-04-27] MEDS: oxyBUTYnin chloride ER 5 MG TAB.ER.24 15 MG PO (08:54)
[2024-04-27] MEDS: Divalproex Sodium Sprinkles 125 MG CAP.DR.SPR 250 MG PO ×3 (08:54→20:41)
[2024-04-27] MEDS: Loratadine 10 MG TABLET PO (08:54)
[2024-04-27] MEDS: OLANZapine 2.5 MG TABLET PO ×2 (08:54→20:42)
[2024-04-27] MEDS: Atorvastatin Calcium 20 MG TABLET PO (08:55)
--- NOTE | 2024-04-27 11:32 | P.PNPSI_ITS ---
Subjective Subjective Date of Service: 04/27/24 Reason For Visit: combative behaviors Subjective Notes: Conditional Voluntary Interim History: The nursing staff reported the patient had been pleasantly confused, easily redirectable. On interview the patient denies new symptoms. Mental Status Exam Mental Status Exam Patient Appearance: Appropriate Patient Orientation: Person and Situation Level of Consciousness: Awake and Appropriate Patient Behavior: Guarded and Passive Mood Description: Withdrawn Affect Description: Constricted Patient Cognition Impaired: Yes Ability to Follow Directions: Good Speech Pattern: Clear Hallucinations: None Delusions: Not Present Thought Process: Distracted and Slowed Thinking Thought Content: positive for [place] and positive for Poverty of Content Judgement: Poor Diagnostics Vital Signs (24Hr): Vital Signs - 24 hr 04/26/24 20:30 04/26/24 20:32 04/26/24 20:34 Temperature 98.9 F Pulse Rate 71 81 101 H Respiratory Rate 18 Blood Pressure 145/65 H 176/80 H 145/84 H Pulse Oximetry 98 Oxygen Delivery Method Room Air 04/27/24 08:51 Temperature 96.3 F L Pulse Rate 72 Respiratory Rate 18 Blood Pressure 120/63 Pulse Oximetry 96 Oxygen Delivery Method Room Air BMI result Body Mass Index 19.7 Labs 04/21/24 15:02 04/21/24 15:02 Labs: Laboratory Results - last 48 hr 04/25/24 21:15 Urine Color Yellow Urine Appearance Clear Urine pH 8.0 Ur Specific [place] 1.010 Urine Protein Negative Urine Glucose (UA) Negative Urine Ketones Negative Urine Blood Negative Urine Nitrite Negative Ur Leukocyte Esterase Moderate (2+) H Urine RBC 0-2 Urine WBC 0-5 Ur Squamous Epith Cells 0-2 Urine Bacteria None Seen Hyaline Casts 0-2 Imaging Radiology Impressions: ITS Impressions Chest X-Ray 04/21/24 14:43 IMPRESSION: Clear lungs. Electronically signed by: Micheal Barreto MD 04/21/2024 03:[address] [facility] Medications Medications Current Medications Acetaminophen (Acetaminophen 325 Mg Tablet) 975 mg PO TID PRN PRN Reason: Fever Or Pain Last Admin: 04/25/24 20:19 Dose: 975 mg Al Hydroxide/Mg Hydroxide (Magnesium Hydrox/Alum Hydrox 30 Ml Oral.Susp) 30 ml PO Q6H PRN PRN Reason: Heartburn/Nausea Atorvastatin Calcium (Atorvastatin Calcium 20 Mg Tablet) 20 mg PO DAILY [facility] Last Admin: 04/27/24 08:55 Dose: 20 mg Bisacodyl (Bisacodyl 10 Mg Supp.Rect) 10 mg [place] DAILY PRN PRN Reason: Constipation Last Admin: 04/02/24 12:43 Dose: 10 mg Divalproex Sodium (Divalproex Sodium Sprinkles 125 Mg Cap.) 250 mg PO TID [facility] Last Admin: 04/27/24 08:54 Dose: 250 mg Donepezil HCl (Donepezil Hcl 5 Mg Tablet) 5 mg PO BEDTIME [facility] Last Admin: 04/26/24 20:50 Dose: 5 mg Famotidine (Famotidine 20 Mg Tablet) 20 mg PO BEDTIME [facility] Last Admin: 04/26/24 20:50 Dose: 20 mg Levothyroxine Sodium (Levothyroxine Sodium 75 Mcg Tablet) 75 mcg PO DAILY@0600 [facility] Last Admin: 04/27/24 07:00 Dose: 75 mcg Loratadine (Loratadine 10 Mg Tablet) 10 mg PO DAILY [facility] Last Admin: 04/27/24 08:54 Dose: 10 mg Lorazepam (Lorazepam 0.5 Mg Tablet) 0.5 mg PO TID PRN PRN Reason: anxiety/mild agitation Last Admin: 04/26/24 22:05 Dose: 0.5 mg Magnesium Hydroxide (Milk Of Magnesia 30 Ml Oral.Susp) 30 ml PO DAILY PRN PRN Reason: Constipation Last Admin: 03/28/24 20:36 Dose: 30 ml Olanzapine (Olanzapine 5 Mg Tablet) 5 mg PO Q6H PRN PRN Reason: agitation Last Admin: 04/26/24 22:05 Dose: 5 mg Olanzapine (Olanzapine 2.5 Mg Tablet) 2.5 mg PO BID [facility] Last Admin: 04/27/24 08:54 Dose: 2.5 mg Oxybutynin Chloride (Oxybutynin Chloride Er 5 Mg Tab.Er.24) 15 mg PO DAILY [facility] Last Admin: 04/27/24 08:54 Dose: 15 mg Trazodone HCl (Trazodone Hcl 50 Mg Tablet) 50 mg PO BEDTIME PRN PRN Reason: sleep Last Admin: 04/26/24 20:51 Dose: 50 mg Trazodone HCl (Trazodone Hcl 50 Mg Tablet) 50 mg PO BEDTIME [facility] Last Admin: 04/26/24 20:51 Dose: 50 mg Allergies Allergies Allergy/AdvReac Type Severity Reaction Status Date / Time sulfamethoxazole Allergy Unknown Verified 03/03/24 14:32 [From Sulfamethoxazole-Trimethoprim] trimethoprim Allergy Unknown Verified 03/03/24 14:32 [From Sulfamethoxazole-Trimethoprim] Assessment & Plan Assessment & Plan (1) Major neurocognitive disorder due to Alzheimer's disease, without behavioral disturbance: Status: Acute Code(s): G30.9 - Alzheimer's disease, unspecified; F02.80 - Dementia in other diseases classified elsewhere, unspecified severity, without behavioral disturbance, psychotic disturbance, mood disturbance, and anxiety Plan Elderly female with a past history of Alzheimer's, recently in a subacute rehab due to subdural hematoma referred for exacerbation of agitation. The patient is a very poor historian unable to provide any details still very agitated. Plan 03/20 continue tx. will check ammonia and depakote level on 03/22/24 at 7am. 03/21: continue current management and treatment plan. check labs tomorrow. 03/22: Continue current management and treatment plan. Check Depakote level and ammonia on 03/23. 03/23 increase trazodone up to 25 p.o. t.i.d. to target anxiety. 03/24 keep same treatment. 03/25 keep same treatment 03/26 keep same treatment 03/27 trazodone will be lowered to 12.5 p.o. t.i.d. 03/29/24 Increase lorazepam 0.5 t.i.d. p.r.n. 03/30 keep same treatment. 03/31 keep same treatment 04/01 keep same treatment 04/02 keep same treatment 04/03 Will schedule trazodone 50mg po qhs (slept only 2 hrs.), increase olanzapine 2.5mg po TID. 04/04 more redirectable from changes of meds yesterday- 04/05- CTP 04/06- continue plan of care 04/07 continue same treatment 04/08 keep same treatment 04/09 keep same treatment 04/10 paperwork for information of healthcare proxy was done. 04/11 continue current plans and regimen 04/12: Continue current regimen and plans. 04/13: Continue current regimen and plans 04/14 continue same treatment 04/15 continue same treatment 04/16 continue same treatment 04/17 today we have the court hearing for affirmation of healthcare proxy. 04/18-04/19 continue tx plan -labs drawn and pt with DIANA and mild hyponatremia; -consult placed; encouraging fluid 04/20 keep same treatment 04/21 keep same treatment. 04/22 she is slightly over-sedated so we are changing Zyprexa to 2.5 p.o. b.i.d.. Blood work came back with better creatinine. 04/23 keep same treatment. 04/24 keep same treatment, waiting for placement. 04/25: no change in presentation. continue current mgmt. 04/26: orthostatic hypotension, fell last night. remains on 1:1. encourage fluids, continue current mgmt. 04/27 keep same treatment Reason for continued inpatient stay Substantial Risk for: inability to function, rapid decompensation and med/psych decompensation Time Spent With Patient Time: Total time managing care of this patient today __20__ minutes.
--- NOTE | 2024-04-27 14:34 | MHC.SLORD ---
Speech Language Pathology Order Status: ENGINEERING DIRECTOR went to unit for followup tx, pt sleeping. Pt on NDD2 with thins, no issues with PO tolerance reported. ENGINEERING DIRECTOR to return tomorrow.
[2024-04-27 20:00] VITALS: BP 126/60; PULSE 74; RESP 16; TEMP 36.8; O2SAT 95
[2024-04-27] MEDS: Donepezil HCl 5 MG TABLET PO (20:41)
[2024-04-27] MEDS: traZODone HCL 50 MG TABLET PO ×2 (20:42→20:43)
[2024-04-27] MEDS: Famotidine 20 MG TABLET PO (20:42)
[2024-04-27] MEDS: LORazepam 0.5 MG TABLET PO (20:42)
[2024-04-27] MEDS: OLANZapine 5 MG TABLET PO (20:42)
[2024-04-28] MEDS: Levothyroxine Sodium 75 MCG TABLET PO (06:11)
[2024-04-28 08:28] VITALS: BP 155/79; PULSE 90; RESP 18; TEMP 36.4; O2SAT 97
[2024-04-28] MEDS: Atorvastatin Calcium 20 MG TABLET PO (08:49)
[2024-04-28] MEDS: OLANZapine 2.5 MG TABLET PO ×2 (08:49→20:04)
[2024-04-28] MEDS: Loratadine 10 MG TABLET PO (08:49)
[2024-04-28] MEDS: Divalproex Sodium Sprinkles 125 MG CAP.DR.SPR 250 MG PO ×3 (08:49→20:04)
[2024-04-28] MEDS: oxyBUTYnin chloride ER 5 MG TAB.ER.24 15 MG PO (08:49)
--- NOTE | 2024-04-28 10:48 | MHC.SLORD ---
Speech Language Pathology Order Status: REINFORCING STEEL WORKER WIRE MESH arrived to unit, however, patient was asleep and not able to participate at this time. RN reported patient has been tolerating meals, stable on [facility] altered diet (NDD2) and thin liquids, with no reported coughing since avoiding using straws. Recommend continue with direct supervision and aspiration precautions. Please re-refer with any further concern or if REINFORCING STEEL WORKER WIRE MESH can be of further assistance.
[2024-04-28] MEDS: LORazepam 0.5 MG TABLET PO (13:18)
--- NOTE | 2024-04-28 13:56 | P.PNPSI_ITS ---
Subjective Subjective Date of Service: 04/28/24 Reason For Visit: combative behaviors Subjective Notes: Conditional Voluntary Interim History: The nursing staff reported the patient remains pleasantly confused, easily redirectable pacing in the hallway with her walker on one-to-one. The social organization professor reported that the family has not done the paperwork for [employer] yet. On interview the patient remains confused but approachable. Mental Status Exam Mental Status Exam Patient Appearance: Appropriate Patient Orientation: Person and Situation Level of Consciousness: Awake and Appropriate Patient Behavior: Guarded and Passive Mood Description: Withdrawn Affect Description: Constricted Patient Cognition Impaired: Yes Ability to Follow Directions: Good Speech Pattern: Clear Hallucinations: None Delusions: Ideas of Reference Thought Process: Illogical and Distracted Thought Content: positive for [place] and positive for Poverty of Content Judgement: Fair Diagnostics Vital Signs (24Hr): Vital Signs - 24 hr 04/27/24 20:00 04/28/24 08:28 Temperature 98.2 F 97.5 F Pulse Rate 74 90 Respiratory Rate 16 18 Blood Pressure 126/60 155/79 H Pulse Oximetry 95 97 Oxygen Delivery Method Room Air Room Air BMI result Body Mass Index 19.7 Labs 04/21/24 15:02 04/21/24 15:02 Imaging Radiology Impressions: ITS Impressions Chest X-Ray 04/21/24 14:43 IMPRESSION: Clear lungs. Electronically signed by: Micheal Barreto MD 04/21/2024 03:04 PM [facility] Medications Medications Current Medications Acetaminophen (Acetaminophen 325 Mg Tablet) 975 mg PO TID PRN PRN Reason: Fever Or Pain Last Admin: 04/25/24 20:19 Dose: 975 mg Al Hydroxide/Mg Hydroxide (Magnesium Hydrox/Alum Hydrox 30 Ml Oral.Susp) 30 ml PO Q6H PRN PRN Reason: Heartburn/Nausea Atorvastatin Calcium (Atorvastatin Calcium 20 Mg Tablet) 20 mg PO DAILY [facility] Last Admin: 04/28/24 08:49 Dose: 20 mg Bisacodyl (Bisacodyl 10 Mg Supp.Rect) 10 mg [place] DAILY PRN PRN Reason: Constipation Last Admin: 04/02/24 12:43 Dose: 10 mg Divalproex Sodium (Divalproex Sodium Sprinkles 125 Mg [place].) 250 mg PO TID [facility] Last Admin: 04/28/24 08:49 Dose: 250 mg Donepezil HCl (Donepezil Hcl 5 Mg Tablet) 5 mg PO BEDTIME [facility] Last Admin: 04/27/24 20:41 Dose: 5 mg Famotidine (Famotidine 20 Mg Tablet) 20 mg PO BEDTIME [facility] Last Admin: 04/27/24 20:42 Dose: 20 mg Levothyroxine Sodium (Levothyroxine Sodium 75 Mcg Tablet) 75 mcg PO DAILY@0600 [facility] Last Admin: 04/28/24 06:11 Dose: 75 mcg Loratadine (Loratadine 10 Mg Tablet) 10 mg PO DAILY [facility] Last Admin: 04/28/24 08:49 Dose: 10 mg Lorazepam (Lorazepam 0.5 Mg Tablet) 0.5 mg PO TID PRN PRN Reason: anxiety/mild agitation Last Admin: 04/28/24 13:18 Dose: 0.5 mg Magnesium Hydroxide (Milk Of Magnesia 30 Ml Oral.Susp) 30 ml PO DAILY PRN PRN Reason: Constipation Last Admin: 03/28/24 20:36 Dose: 30 ml Olanzapine (Olanzapine 5 Mg Tablet) 5 mg PO Q6H PRN PRN Reason: agitation Last Admin: 04/27/24 20:42 Dose: 5 mg Olanzapine (Olanzapine 2.5 Mg Tablet) 2.5 mg PO BID [facility] Last Admin: 04/28/24 08:49 Dose: 2.5 mg Oxybutynin Chloride (Oxybutynin Chloride Er 5 Mg Tab.Er.24) 15 mg PO DAILY [facility] Last Admin: 04/28/24 08:49 Dose: 15 mg Trazodone HCl (Trazodone Hcl 50 Mg Tablet) 50 mg PO BEDTIME PRN PRN Reason: sleep Last Admin: 04/27/24 20:43 Dose: 50 mg Trazodone HCl (Trazodone Hcl 50 Mg Tablet) 50 mg PO BEDTIME [facility] Last Admin: 04/27/24 20:42 Dose: 50 mg Allergies Allergies Allergy/AdvReac Type Severity Reaction Status Date / Time sulfamethoxazole Allergy Unknown Verified 03/03/24 14:32 [From Sulfamethoxazole-Trimethoprim] trimethoprim Allergy Unknown Verified 03/03/24 14:32 [From Sulfamethoxazole-Trimethoprim] Assessment & Plan Assessment & Plan (1) Major neurocognitive disorder due to Alzheimer's disease, without behavioral disturbance: Status: Acute Code(s): G30.9 - Alzheimer's disease, unspecified; F02.80 - Dementia in other diseases classified elsewhere, unspecified severity, without behavioral disturbance, psychotic disturbance, mood disturbance, and anxiety Plan Elderly female with a past history of Alzheimer's, recently in a subacute rehab due to subdural hematoma referred for exacerbation of agitation. The patient is a very poor historian unable to provide any details still very agitated. Plan 03/20 continue tx. will check ammonia and depakote level on 03/22/24 at 7am. 03/21: continue current management and treatment plan. check labs tomorrow. 03/22: Continue current management and treatment plan. Check Depakote level and ammonia on 03/23. 03/23 increase trazodone up to 25 p.o. t.i.d. to target anxiety. 03/24 keep same treatment. 03/25 keep same treatment 03/26 keep same treatment 03/27 trazodone will be lowered to 12.5 p.o. t.i.d. 03/29/24 Increase lorazepam 0.5 t.i.d. p.r.n. 03/30 keep same treatment. 03/31 keep same treatment 04/01 keep same treatment 04/02 keep same treatment 04/03 Will schedule trazodone 50mg po qhs (slept only 2 hrs.), increase olanzapine 2.5mg po TID. 04/04 more redirectable from changes of meds yesterday- 04/05- CTP 04/06- continue plan of care 04/07 continue same treatment 04/08 keep same treatment 04/09 keep same treatment 04/10 paperwork for information of healthcare proxy was done. 04/11 continue current plans and regimen 04/12: Continue current regimen and plans. 04/13: Continue current regimen and plans 04/14 continue same treatment 04/15 continue same treatment 04/16 continue same treatment 04/17 today we have the court hearing for affirmation of healthcare proxy. 04/18-04/19 continue tx plan -labs drawn and pt with DIANA and mild hyponatremia; -consult placed; encouraging fluid 04/20 keep same treatment 04/21 keep same treatment. 04/22 she is slightly over-sedated so we are changing Zyprexa to 2.5 p.o. b.i.d.. Blood work came back with better creatinine. 04/23 keep same treatment. 04/24 keep same treatment, waiting for placement. 04/25: no change in presentation. continue current mgmt. 04/26: orthostatic hypotension, fell last night. remains on 1:1. encourage fluids, continue current mgmt. 04/27 keep same treatment 04/28 keep same treatment Reason for continued inpatient stay Substantial Risk for: inability to function, rapid decompensation and med/psych decompensation Time Spent With Patient Time: Total time managing care of this patient today __20__ minutes.
[2024-04-28] MEDS: OLANZapine 5 MG TABLET PO (16:35)
[2024-04-28] MEDS: Famotidine 20 MG TABLET PO (20:04)
[2024-04-28] MEDS: traZODone HCL 50 MG TABLET PO (20:04)
[2024-04-28] MEDS: Donepezil HCl 5 MG TABLET PO (20:04)
[2024-04-28 20:05] VITALS: BP 126/78; PULSE 66; RESP 16; TEMP 36.6; O2SAT 96
[2024-04-29] MEDS: Levothyroxine Sodium 75 MCG TABLET PO (05:17)
[2024-04-29 08:00] VITALS: BP 134/74; PULSE 72; RESP 18; TEMP 36.3; O2SAT 98
[2024-04-29] MEDS: Atorvastatin Calcium 20 MG TABLET PO (08:55)
[2024-04-29] MEDS: Divalproex Sodium Sprinkles 125 MG CAP.DR.SPR 250 MG PO ×3 (08:55→19:48)
[2024-04-29] MEDS: Loratadine 10 MG TABLET PO (08:55)
[2024-04-29] MEDS: OLANZapine 2.5 MG TABLET PO ×2 (08:55→19:48)
[2024-04-29] MEDS: oxyBUTYnin chloride ER 5 MG TAB.ER.24 15 MG PO (08:55)
--- NOTE | 2024-04-29 09:47 | P.PNPSI_ITS ---
Subjective Subjective Date of Service: 04/29/24 Reason For Visit: combative behaviors Subjective Notes: Conditional Voluntary Interim History: The nursing staff reported the patient had been pleasantly confused, easily redirectable. She had been ambulating on one-to-one. Slept 8 hours. The social services specialist reported that she spoke with the daughter and she wants to apply for special conservatorship. On interview the patient is pleasantly confused easily redirectable. Mental Status Exam Mental Status Exam Patient Appearance: Appropriate Patient Orientation: Person and Situation Level of Consciousness: Awake and Appropriate Patient Behavior: Guarded and Passive Mood Description: Withdrawn Affect Description: Constricted Patient Cognition Impaired: Yes Ability to Follow Directions: Good Speech Pattern: Clear Hallucinations: None Delusions: Ideas of Reference Thought Process: Distracted and Slowed Thinking Thought Content: positive for [place] and positive for Poverty of Content Judgement: Poor Diagnostics Vital Signs (24Hr): Vital Signs - 24 hr 04/28/24 20:05 04/29/24 08:00 Temperature 97.8 F 97.4 F Pulse Rate 66 72 Respiratory Rate 16 18 Blood Pressure 126/78 134/74 Pulse Oximetry 96 98 Oxygen Delivery Method Room Air Room Air BMI result Body Mass Index 19.7 Labs 04/21/24 15:02 04/21/24 15:02 Imaging Radiology Impressions: ITS Impressions Chest X-Ray 04/21/24 14:43 IMPRESSION: Clear lungs. Electronically signed by: Micheal Barreto MD 04/21/2024 03:04 PM [facility] Medications Medications Current Medications Acetaminophen (Acetaminophen 325 Mg Tablet) 975 mg PO TID PRN PRN Reason: Fever Or Pain Last Admin: 04/25/24 20:19 Dose: 975 mg Al Hydroxide/Mg Hydroxide (Magnesium Hydrox/Alum Hydrox 30 Ml Oral.Susp) 30 ml PO Q6H PRN PRN Reason: Heartburn/Nausea Atorvastatin Calcium (Atorvastatin Calcium 20 Mg Tablet) 20 mg PO DAILY [facility] Last Admin: 04/29/24 08:55 Dose: 20 mg Bisacodyl (Bisacodyl 10 Mg Supp.Rect) 10 mg [place] DAILY PRN PRN Reason: Constipation Last Admin: 04/02/24 12:43 Dose: 10 mg Divalproex Sodium (Divalproex Sodium Sprinkles 125 Mg ) 250 mg PO TID [facility] Last Admin: 04/29/24 08:55 Dose: 250 mg Donepezil HCl (Donepezil Hcl 5 Mg Tablet) 5 mg PO BEDTIME [facility] Last Admin: 04/28/24 20:04 Dose: 5 mg Famotidine (Famotidine 20 Mg Tablet) 20 mg PO BEDTIME [facility] Last Admin: 04/28/24 20:04 Dose: 20 mg Levothyroxine Sodium (Levothyroxine Sodium 75 Mcg Tablet) 75 mcg PO DAILY@0600 [facility] Last Admin: 04/29/24 05:17 Dose: 75 mcg Loratadine (Loratadine 10 Mg Tablet) 10 mg PO DAILY [facility] Last Admin: 04/29/24 08:55 Dose: 10 mg Lorazepam (Lorazepam 0.5 Mg Tablet) 0.5 mg PO TID PRN PRN Reason: anxiety/mild agitation Last Admin: 04/28/24 13:18 Dose: 0.5 mg Magnesium Hydroxide (Milk Of Magnesia 30 Ml Oral.Susp) 30 ml PO DAILY PRN PRN Reason: Constipation Last Admin: 03/28/24 20:36 Dose: 30 ml Olanzapine (Olanzapine 5 Mg Tablet) 5 mg PO Q6H PRN PRN Reason: agitation Last Admin: 04/28/24 16:35 Dose: 5 mg Olanzapine (Olanzapine 2.5 Mg Tablet) 2.5 mg PO BID [facility] Last Admin: 04/29/24 08:55 Dose: 2.5 mg Oxybutynin Chloride (Oxybutynin Chloride Er 5 Mg Tab.Er.24) 15 mg PO DAILY [facility] Last Admin: 04/29/24 08:55 Dose: 15 mg Trazodone HCl (Trazodone Hcl 50 Mg Tablet) 50 mg PO BEDTIME PRN PRN Reason: sleep Last Admin: 04/27/24 20:43 Dose: 50 mg Trazodone HCl (Trazodone Hcl 50 Mg Tablet) 50 mg PO BEDTIME [facility] Last Admin: 04/28/24 20:04 Dose: 50 mg Allergies Allergies Allergy/AdvReac Type Severity Reaction Status Date / Time sulfamethoxazole Allergy Unknown Verified 03/03/24 14:32 [From Sulfamethoxazole-Trimethoprim] trimethoprim Allergy Unknown Verified 03/03/24 14:32 [From Sulfamethoxazole-Trimethoprim] Assessment & Plan Assessment & Plan (1) Major neurocognitive disorder due to Alzheimer's disease, without behavioral disturbance: Status: Acute Code(s): G30.9 - Alzheimer's disease, unspecified; F02.80 - Dementia in other diseases classified elsewhere, unspecified severity, without behavioral disturbance, psychotic disturbance, mood disturbance, and anxiety Plan Elderly female with a past history of Alzheimer's, recently in a subacute rehab due to subdural hematoma referred for exacerbation of agitation. The patient is a very poor historian unable to provide any details still very agitated. Plan 03/20 continue tx. will check ammonia and depakote level on 03/22/24 at 7am. 03/21: continue current management and treatment plan. check labs tomorrow. 03/22: Continue current management and treatment plan. Check Depakote level and ammonia on 03/23. 03/23 increase trazodone up to 25 p.o. t.i.d. to target anxiety. 03/24 keep same treatment. 03/25 keep same treatment 03/26 keep same treatment 03/27 trazodone will be lowered to 12.5 p.o. t.i.d. 03/29/24 Increase lorazepam 0.5 t.i.d. p.r.n. 03/30 keep same treatment. 03/31 keep same treatment 04/01 keep same treatment 04/02 keep same treatment 04/03 Will schedule trazodone 50mg po qhs (slept only 2 hrs.), increase olanzapine 2.5mg po TID. 04/04 more redirectable from changes of meds yesterday- 04/05- CTP 04/06- continue plan of care 04/07 continue same treatment 04/08 keep same treatment 04/09 keep same treatment 04/10 paperwork for information of healthcare proxy was done. 04/11 continue current plans and regimen 04/12: Continue current regimen and plans. 04/13: Continue current regimen and plans 04/14 continue same treatment 04/15 continue same treatment 04/16 continue same treatment 04/17 today we have the court hearing for affirmation of healthcare proxy. 04/18-04/19 continue tx plan -labs drawn and pt with DIANA and mild hyponatremia; -consult placed; encouraging fluid 04/20 keep same treatment 04/21 keep same treatment. 04/22 she is slightly over-sedated so we are changing Zyprexa to 2.5 p.o. b.i.d.. Blood work came back with better creatinine. 04/23 keep same treatment. 04/24 keep same treatment, waiting for placement. 04/25: no change in presentation. continue current mgmt. 04/26: orthostatic hypotension, fell last night. remains on 1:1. encourage fluids, continue current mgmt. 04/27 keep same treatment 04/28 keep same treatment 04/29 keep same treatment Reason for continued inpatient stay Substantial Risk for: inability to function, rapid decompensation and med/psych decompensation Time Spent With Patient Time: Total time managing care of this patient today _20___ minutes.
[2024-04-29] MEDS: Donepezil HCl 5 MG TABLET PO (19:47)
[2024-04-29] MEDS: traZODone HCL 50 MG TABLET PO (19:47)
[2024-04-29] MEDS: Famotidine 20 MG TABLET PO (19:47)
[2024-04-29 20:11] VITALS: BP 144/69; PULSE 73; RESP 15; TEMP 36.9; O2SAT 95
[2024-04-30] MEDS: Levothyroxine Sodium 75 MCG TABLET PO (06:04)
[2024-04-30 07:00] VITALS: BMI 19.7
[2024-04-30 08:00] VITALS: BP 126/85; PULSE 81; RESP 18; TEMP 36.1; O2SAT 98
[2024-04-30] MEDS: oxyBUTYnin chloride ER 5 MG TAB.ER.24 15 MG PO (09:08)
[2024-04-30] MEDS: Loratadine 10 MG TABLET PO (09:08)
[2024-04-30] MEDS: OLANZapine 2.5 MG TABLET PO ×2 (09:08→20:31)
[2024-04-30] MEDS: Divalproex Sodium Sprinkles 125 MG CAP.DR.SPR 250 MG PO ×3 (09:08→20:31)
[2024-04-30] MEDS: Atorvastatin Calcium 20 MG TABLET PO (09:08)
--- NOTE | 2024-04-30 09:22 | P.PNPSI_ITS ---
Subjective Subjective Date of Service: 04/30/24 Reason For Visit: combative behaviors Mental Status Exam Mental Status Exam Narrative: Appearance: casually groomed, good hygiene, in NAD. [place]. ambulating with walker. Behavior: calm Psychomotor: no agitation or retardation noted Speech: mumbles, some difficulty enunciation, soft tone TP: goal oriented- wanting to go home. confabulation TC: wanting to go home Mood: good Affect:calm, congruent SI: none HI: none VH/AH: no overt signs Delusions: no overt delusional content reported but confabulates. Insight/judgment: impaired x 2 Memory/cog: alert, oriented only to self, not to place, month, year nor situation. Diagnostics Vital Signs (24Hr): Vital Signs - 24 hr 04/29/24 20:11 Temperature 98.5 F Pulse Rate 73 Respiratory Rate 15 Blood Pressure 144/69 H Pulse Oximetry 95 Oxygen Delivery Method Room Air BMI result Body Mass Index 19.7 Labs 04/30/24 09:52 04/30/24 09:52 Imaging Radiology Impressions: ITS Impressions Chest X-Ray 04/21/24 14:43 IMPRESSION: Clear lungs. Electronically signed by: Micheal Barreto MD 04/21/2024 03:04 PM [facility] [place] Medications Medications Current Medications Acetaminophen (Acetaminophen 325 Mg Tablet) 975 mg PO TID PRN PRN Reason: Fever Or Pain Last Admin: 04/25/24 20:19 Dose: 975 mg Al Hydroxide/Mg Hydroxide (Magnesium Hydrox/Alum Hydrox 30 Ml Oral.Susp) 30 ml PO Q6H PRN PRN Reason: Heartburn/Nausea Atorvastatin Calcium (Atorvastatin Calcium 20 Mg Tablet) 20 mg PO DAILY [facility] Last Admin: 04/30/24 09:08 Dose: 20 mg Bisacodyl (Bisacodyl 10 Mg Supp.Rect) 10 mg [place] DAILY PRN PRN Reason: Constipation Last Admin: 04/02/24 12:43 Dose: 10 mg Divalproex Sodium (Divalproex Sodium Sprinkles 125 Mg Cap.) 250 mg PO TID [facility] Last Admin: 04/30/24 09:08 Dose: 250 mg Donepezil HCl (Donepezil Hcl 5 Mg Tablet) 5 mg PO BEDTIME [facility] Last Admin: 04/29/24 19:47 Dose: 5 mg Famotidine (Famotidine 20 Mg Tablet) 20 mg PO BEDTIME [facility] Last Admin: 04/29/24 19:47 Dose: 20 mg Levothyroxine Sodium (Levothyroxine Sodium 75 Mcg Tablet) 75 mcg PO DAILY@0600 [facility] Last Admin: 04/30/24 06:04 Dose: 75 mcg Loratadine (Loratadine 10 Mg Tablet) 10 mg PO DAILY [facility] Last Admin: 04/30/24 09:08 Dose: 10 mg Lorazepam (Lorazepam 0.5 Mg Tablet) 0.5 mg PO TID PRN PRN Reason: anxiety/mild agitation Last Admin: 04/28/24 13:18 Dose: 0.5 mg Magnesium Hydroxide (Milk Of Magnesia 30 Ml Oral.Susp) 30 ml PO DAILY PRN PRN Reason: Constipation Last Admin: 03/28/24 20:36 Dose: 30 ml Olanzapine (Olanzapine 5 Mg Tablet) 5 mg PO Q6H PRN PRN Reason: agitation Last Admin: 04/28/24 16:35 Dose: 5 mg Olanzapine (Olanzapine 2.5 Mg Tablet) 2.5 mg PO BID [facility] Last Admin: 04/30/24 09:08 Dose: 2.5 mg Oxybutynin Chloride (Oxybutynin Chloride Er 5 Mg Tab.Er.24) 15 mg PO DAILY [facility] Last Admin: 04/30/24 09:08 Dose: 15 mg Trazodone HCl (Trazodone Hcl 50 Mg Tablet) 50 mg PO BEDTIME PRN PRN Reason: sleep Last Admin: 04/27/24 20:43 Dose: 50 mg Trazodone HCl (Trazodone Hcl 50 Mg Tablet) 50 mg PO BEDTIME [facility] Last Admin: 04/29/24 19:47 Dose: 50 mg Allergies Allergies Allergy/AdvReac Type Severity Reaction Status Date / Time sulfamethoxazole Allergy Unknown Verified 03/03/24 14:32 [From Sulfamethoxazole-Trimethoprim] trimethoprim Allergy Unknown Verified 03/03/24 14:32 [From Sulfamethoxazole-Trimethoprim] Assessment & Plan Assessment & Plan (1) Major neurocognitive disorder due to Alzheimer's disease, without behavioral disturbance: Status: Acute Code(s): G30.9 - Alzheimer's disease, unspecified; F02.80 - Dementia in other diseases classified elsewhere, unspecified severity, without behavioral disturbance, psychotic disturbance, mood disturbance, and anxiety Plan Elderly female with a past history of Alzheimer's, recently in a subacute rehab due to subdural hematoma referred for exacerbation of agitation. The patient is a very poor historian unable to provide any details still very agitated. Plan 03/20 continue tx. will check ammonia and depakote level on 03/22/24 at 7am. 03/21: continue current management and treatment plan. check labs tomorrow. 03/22: Continue current management and treatment plan. Check Depakote level and ammonia on 03/23. 03/23 increase trazodone up to 25 p.o. t.i.d. to target anxiety. 03/24 keep same treatment. 03/25 keep same treatment 03/26 keep same treatment 03/27 trazodone will be lowered to 12.5 p.o. t.i.d. 03/29/24 Increase lorazepam 0.5 t.i.d. p.r.n. 03/30 keep same treatment. 03/31 keep same treatment 04/01 keep same treatment 04/02 keep same treatment 04/03 Will schedule trazodone 50mg po qhs (slept only 2 hrs.), increase olanzapine 2.5mg po TID. 04/04 more redirectable from changes of meds yesterday- 04/05- CTP 04/06- continue plan of care 04/07 continue same treatment 04/08 keep same treatment 04/09 keep same treatment 04/10 paperwork for information of healthcare proxy was done. 04/11 continue current plans and regimen 04/12: Continue current regimen and plans. 04/13: Continue current regimen and plans 04/14 continue same treatment 04/15 continue same treatment 04/16 continue same treatment 04/17 today we have the court hearing for affirmation of healthcare proxy. 04/18-04/19 continue tx plan -labs drawn and pt with DIANA and mild hyponatremia; -consult placed; encouraging fluid 04/20 keep same treatment 04/21 keep same treatment. 04/22 she is slightly over-sedated so we are changing Zyprexa to 2.5 p.o. b.i.d.. Blood work came back with better creatinine. 04/23 keep same treatment. 04/24 keep same treatment, waiting for placement. 04/25: no change in presentation. continue current mgmt. 3/2: orthostatic hypotension, fell last night. remains on 1:1. encourage fluids, continue current mgmt. 04/27 keep same treatment 04/28 keep same treatment 04/29 keep same treatment 04/30 continue tx. Reason for continued inpatient stay Substantial Risk for: inability to function Time Spent With Patient Time: Total time managing care of this patient today ____ minutes.
[2024-04-30 09:58] LABS: MANUAL DIFF FLAG NO
[2024-04-30 10:10] LABS: Basophils Percent Auto 0.4 % (0-2); Eosinophils Absolute Auto 0.1 X10*3/uL (0.0-0.4); Eosinophils Percent Auto 1.6 % (0-4); Hemoglobin 10.8 g/dl (12.0-16.0); Imm Gran Abs Auto 0.01 X10*3/uL (0.00-0.03); Imm Gran Pct Auto 0.1 % (0.0-0.4); Lymphocytes Absolute Auto 3.4 X10*3/uL (1.2-4.9); Lymphocytes Percent Auto 49.3 % (20-40); Mean Corpuscular HGB Conc 32.7 g/dl (31.0-35.0); Mean Corpuscular Hemoglobin 30.7 pg (27.0-33.0); Mean Corpuscular Volume 93.8 fL (80.0-98.0); Mean Platelet Volume 11.5 fL (9.4-12.3); Monocytes Percent Auto 15.1 % (2-11); Neutrophils Absolute Auto 2.3 x10*3/uL (2.0-8.3); Neutrophils Percent Auto 33.5 % (45-73); Platelet Count 110 X10*3/uL (160-400); Red Blood Count 3.52 X10*6/uL (4.20-5.50); Red Cell Distribution Width 14.6 % (11.0-16.0); White Blood Count 6.8 X10*3/uL (4.8-10.8)
[2024-04-30 10:35] LABS: Alanine Aminotransferase 11 U/L (0-31); Alkaline Phosphatase 88 U/L (39-117); Anion Gap 9 (12-20); Aspartate Amino Transferase 19 U/L (5-31); Bilirubin Total 0.5 mg/dL (0.0-1.0); Blood Urea Nitrogen 15 mg/dL (9-16); Calcium 8.4 mg/dL (8.4-10.2); Carbon Dioxide 26 mmol/L (22-29); Chloride 106 mmol/L (96-108); Creatinine Clr Calc Pharmacy 44.5; Estimated Glomerular Filt Rate > 60; Glucose Random 84 mg/dL (60-115); Potassium 3.9 mmol/L (3.3-5.1); Sodium 137 mmol/L (135-145); Total Protein 5.4 g/dL (6.5-8.0)
[2024-04-30 20:00] VITALS: BP 163/75; PULSE 68; RESP 16; TEMP 36.9; O2SAT 95
[2024-04-30] MEDS: Donepezil HCl 5 MG TABLET PO (20:31)
[2024-04-30] MEDS: Famotidine 20 MG TABLET PO (20:31)
[2024-04-30] MEDS: traZODone HCL 50 MG TABLET PO (20:31)
[2024-05-01] MEDS: Levothyroxine Sodium 75 MCG TABLET PO (06:03)
[2024-05-01 08:46] VITALS: BP 144/86; PULSE 91; RESP 15; TEMP 36.8; O2SAT 96
[2024-05-01] MEDS: Divalproex Sodium Sprinkles 125 MG CAP.DR.SPR 250 MG PO ×3 (08:47→19:41)
[2024-05-01] MEDS: oxyBUTYnin chloride ER 5 MG TAB.ER.24 15 MG PO (08:47)
[2024-05-01] MEDS: Atorvastatin Calcium 20 MG TABLET PO (08:47)
[2024-05-01] MEDS: Loratadine 10 MG TABLET PO (08:48)
[2024-05-01] MEDS: OLANZapine 2.5 MG TABLET PO ×2 (08:48→19:42)
--- NOTE | 2024-05-01 11:38 | PC.NURSE ---
[facility] [place] reported to this va underwriter, that this patient has a small amount of aleksander blood streaks in her stool. This va underwriter reported this information to Bee Bronson NP-in person. She stated that she will enter an occult blood test.
--- NOTE | 2024-05-01 19:05 | P.PNPSI_ITS ---
Subjective Subjective Date of Service: 05/01/24 Reason For Visit: combative behaviors Subjective Notes: Conditional Voluntary Healthcare Proxy: Yes Interim History: Pt sleeping through the night. She reports doing good she denies pain. She ambulates with walker, less impulsive, but does tend to want to go to different doors, asking for . Review of Systems Review of Systems none currently Yes all other systems are reviewed and are negative and Unobtainable due to mental status Constitutional: Reports no additional constitutional complaints, Denies chills, Denies fever(s) and Denies night sweats Eyes: Reports no additional eye complaints, Denies blurry vision, Denies change in vision, Denies diplopia, Denies eye discharge, Denies loss of vision and Denies eye pain Denies dizziness Cardiovascular: Reports no additional cardiovascular complaints, Denies chest pain, Denies lightheadedness, Denies Loss of Consciousness and Denies dyspnea Respiratory: Reports no additional respiratory complaints and Denies dyspnea Gastrointestinal: Reports no additional gastrointestinal complaints, Denies abdominal pain, Denies melena, Denies hematochezia, Denies change in bowel habits and Denies change in stool character Musculoskeletal: Reports no additional musculoskeletal complaints, Denies numbness and Denies tingling Reports confusion (chronic for the patient - per her demented baseline), Denies dizziness, Denies loss of vision, Denies numbness and Denies tingling Psychiatric: Reports no additional psychiatric complaints and Reports confusion (chronic for the patient - per her demented baseline) Endocrine: Reports no additional endocrine complaints Hematologic/Lymphatic: Reports no additional hematologic/lymphatic complaints Allergic/Immunologic: Reports no additional allergic/immunologic complaints Mental Status Exam Mental Status Exam Narrative: Appearance: casually groomed, good hygiene, in NAD. [place]. ambulating with walker. Behavior: calm Psychomotor: no agitation or retardation noted Speech: mumbles, some difficulty enunciation, soft tone TP: goal oriented- wanting to go home. confabulation TC: wanting to go home Mood: good Affect:calm, congruent SI: none HI: none VH/AH: no overt signs Delusions: no overt delusional content reported but confabulates. Insight/judgment: impaired x 2 Memory/cog: alert, oriented only to self, not to place, month, year nor situation. Diagnostics Vital Signs (24Hr): Vital Signs - 24 hr 04/30/24 20:00 05/01/24 08:46 Temperature 98.4 F 98.2 F Pulse Rate 68 91 Respiratory Rate 16 15 Blood Pressure 163/75 H 144/86 H Pulse Oximetry 95 96 Oxygen Delivery Method Room Air Room Air BMI result Body Mass Index 19.7 Labs 04/30/24 09:52 04/30/24 09:52 Labs: Laboratory Results - last 48 hr 04/30/24 09:52 WBC 6.8 RBC 3.52 L Hgb 10.8 L Hct 33.0 L MCV 93.8 MCH 30.7 MCHC 32.7 RDW 14.6 Plt Count 110 L MPV 11.5 Immature Gran % (Auto) 0.1 Neut % (Auto) 33.5 L Lymph % (Auto) 49.3 H [place] % (Auto) 15.1 H Eos % (Auto) 1.6 Baso % (Auto) 0.4 Lymph # (Auto) 3.4 [place] # (Auto) 1.0 Eos # (Auto) 0.1 Baso # (Auto) 0.0 Abs Immat Gran (auto) 0.01 Absolute Neuts (auto) 2.3 Absolute Nucleated RBC 0.000 Nucleated RBC % (auto) 0.0 Sodium 137 Potassium 3.9 Chloride 106 Carbon Dioxide 26 Anion Gap 9 L BUN 15 Creatinine 0.87 Estim Creat Clear Calc 44.5 Estimated GFR > 60 Random Glucose 84 Calcium 8.4 Total Bilirubin 0.5 AST 19 ALT 11 Alkaline Phosphatase 88 Total Protein 5.4 L Albumin 3.0 L Imaging Radiology Impressions: ITS Impressions Chest X-Ray 04/21/24 14:43 IMPRESSION: Clear lungs. Electronically signed by: Micheal Barreto MD 04/21/2024 03:04 PM [facility] Medications Medications Current Medications Acetaminophen (Acetaminophen 325 Mg Tablet) 975 mg PO TID PRN PRN Reason: Fever Or Pain Last Admin: 04/25/24 20:19 Dose: 975 mg Al Hydroxide/Mg Hydroxide (Magnesium Hydrox/Alum Hydrox 30 Ml Oral.Susp) 30 ml PO Q6H PRN PRN Reason: Heartburn/Nausea Atorvastatin Calcium (Atorvastatin Calcium 20 Mg Tablet) 20 mg PO DAILY [facility] Last Admin: 05/01/24 08:47 Dose: 20 mg Bisacodyl (Bisacodyl 10 Mg Supp.Rect) 10 mg [place] DAILY PRN PRN Reason: Constipation Last Admin: 04/02/24 12:43 Dose: 10 mg Divalproex Sodium (Divalproex Sodium Sprinkles 125 Mg Cap) 250 mg PO TID [facility] Last Admin: 05/01/24 16:34 Dose: 250 mg Donepezil HCl (Donepezil Hcl 5 Mg Tablet) 5 mg PO BEDTIME [facility] Last Admin: 04/30/24 20:31 Dose: 5 mg Famotidine (Famotidine 20 Mg Tablet) 20 mg PO BEDTIME [facility] Last Admin: 04/30/24 20:31 Dose: 20 mg Levothyroxine Sodium (Levothyroxine Sodium 75 Mcg Tablet) 75 mcg PO DAILY@0600 [facility] Last Admin: 05/01/24 06:03 Dose: 75 mcg Loratadine (Loratadine 10 Mg Tablet) 10 mg PO DAILY [facility] Last Admin: 05/01/24 08:48 Dose: 10 mg Lorazepam (Lorazepam 0.5 Mg Tablet) 0.5 mg PO TID PRN PRN Reason: anxiety/mild agitation Last Admin: 04/28/24 13:18 Dose: 0.5 mg Magnesium Hydroxide (Milk Of Magnesia 30 Ml Oral.Susp) 30 ml PO DAILY PRN PRN Reason: Constipation Last Admin: 03/28/24 20:36 Dose: 30 ml Olanzapine (Olanzapine 5 Mg Tablet) 5 mg PO Q6H PRN PRN Reason: agitation Last Admin: 04/28/24 16:35 Dose: 5 mg Olanzapine (Olanzapine 2.5 Mg Tablet) 2.5 mg PO BID [facility] Last Admin: 05/01/24 08:48 Dose: 2.5 mg Omeprazole (Omeprazole 20 Mg Capsule.Dr) 20 mg PO DAILY@0700 [facility] Oxybutynin Chloride (Oxybutynin Chloride Er 5 Mg Tab.Er.24) 15 mg PO DAILY [facility] Last Admin: 05/01/24 08:47 Dose: 15 mg Trazodone HCl (Trazodone Hcl 50 Mg Tablet) 50 mg PO BEDTIME PRN PRN Reason: sleep Last Admin: 04/27/24 20:43 Dose: 50 mg Trazodone HCl (Trazodone Hcl 50 Mg Tablet) 50 mg PO BEDTIME [facility] Last Admin: 04/30/24 20:31 Dose: 50 mg Allergies Allergies Allergy/AdvReac Type Severity Reaction Status Date / Time sulfamethoxazole Allergy Unknown Verified 03/03/24 14:32 [From Sulfamethoxazole-Trimethoprim] trimethoprim Allergy Unknown Verified 03/03/24 14:32 [From Sulfamethoxazole-Trimethoprim] Assessment & Plan Assessment & Plan (1) Major neurocognitive disorder due to Alzheimer's disease, without behavioral disturbance: Status: Acute Code(s): G30.9 - Alzheimer's disease, unspecified; F02.80 - Dementia in other diseases classified elsewhere, unspecified severity, without behavioral disturbance, psychotic disturbance, mood disturbance, and anxiety Plan Elderly female with a past history of Alzheimer's, recently in a subacute rehab due to subdural hematoma referred for exacerbation of agitation. The patient is a very poor historian unable to provide any details still very agitated. Plan 03/20 continue tx. will check ammonia and depakote level on 03/22/24 at 7am. 03/21: continue current management and treatment plan. check labs tomorrow. 03/22: Continue current management and treatment plan. Check Depakote level and ammonia on 03/23. 03/23 increase trazodone up to 25 p.o. t.i.d. to target anxiety. 03/24 keep same treatment. 03/25 keep same treatment 03/26 keep same treatment 03/27 trazodone will be lowered to 12.5 p.o. t.i.d. 03/29/24 Increase lorazepam 0.5 t.i.d. p.r.n. 03/30 keep same treatment. 03/31 keep same treatment 04/01 keep same treatment 04/02 keep same treatment 04/03 Will schedule trazodone 50mg po qhs (slept only 2 hrs.), increase olanzapine 2.5mg po TID. 04/04 more redirectable from changes of meds yesterday- 04/05- CTP 04/06- continue plan of care 04/07 continue same treatment 04/08 keep same treatment 04/09 keep same treatment 04/10 paperwork for information of healthcare proxy was done. 04/11 continue current plans and regimen 04/12: Continue current regimen and plans. 04/13: Continue current regimen and plans 04/14 continue same treatment 04/15 continue same treatment 04/16 continue same treatment 04/17 today we have the court hearing for affirmation of healthcare proxy. 04/18-04/19 continue tx plan -labs drawn and pt with DIANA and mild hyponatremia; -consult placed; encouraging fluid 04/20 keep same treatment 04/21 keep same treatment. 04/22 she is slightly over-sedated so we are changing Zyprexa to 2.5 p.o. b.i.d.. Blood work came back with better creatinine. 04/23 keep same treatment. 04/24 keep same treatment, waiting for placement. 04/25: no change in presentation. continue current mgmt. 04/26: orthostatic hypotension, fell last night. remains on 1:1. encourage fluids, continue current mgmt. 04/27 keep same treatment 04/28 keep same treatment 04/29 keep same treatment 04/30 continue tx. 05/01 continue tx. Reason for continued inpatient stay Substantial Risk for: inability to function Time Spent With Patient Time: Total time managing care of this patient today ____ minutes.
[2024-05-01 19:40] VITALS: BP 142/74; PULSE 61; RESP 16; TEMP 36.1; O2SAT 95
[2024-05-01] MEDS: Famotidine 20 MG TABLET PO (19:41)
[2024-05-01] MEDS: traZODone HCL 50 MG TABLET PO ×2 (19:41→23:47)
[2024-05-01] MEDS: Donepezil HCl 5 MG TABLET PO (19:41)
[2024-05-01] MEDS: LORazepam 0.5 MG TABLET PO (23:46)
[2024-05-02] MEDS: Levothyroxine Sodium 75 MCG TABLET PO (05:30)
[2024-05-02] MEDS: Omeprazole 20 MG CAPSULE.DR PO (06:04)
[2024-05-02 08:00] VITALS: BP 126/64; PULSE 60; RESP 18; TEMP 36.1; O2SAT 95
[2024-05-02] MEDS: Divalproex Sodium Sprinkles 125 MG CAP.DR.SPR 250 MG PO ×3 (08:10→19:47)
[2024-05-02] MEDS: Loratadine 10 MG TABLET PO (08:11)
[2024-05-02] MEDS: oxyBUTYnin chloride ER 5 MG TAB.ER.24 15 MG PO (08:11)
[2024-05-02] MEDS: Atorvastatin Calcium 20 MG TABLET PO (08:11)
[2024-05-02] MEDS: OLANZapine 2.5 MG TABLET PO ×2 (08:11→19:47)
--- NOTE | 2024-05-02 18:20 | HO.PSYCHPN ---
Subjective Subjective Date of Service: 05/02/24 Reason For Visit: combative behaviors Subjective Notes: Conditional Voluntary Healthcare Proxy: Yes Interim History: Pt sleeping through the night. She reports doing good she denies pain. She ambulates with walker, less impulsive, but does tend to want to go to different doors, asking for . Review of Systems Review of Systems none currently Yes all other systems are reviewed and are negative and Unobtainable due to mental status Constitutional: Reports no additional constitutional complaints, Denies chills, Denies fever(s) and Denies night sweats Eyes: Reports no additional eye complaints, Denies blurry vision, Denies change in vision, Denies diplopia, Denies eye discharge, Denies loss of vision and Denies eye pain Denies dizziness Cardiovascular: Reports no additional cardiovascular complaints, Denies chest pain, Denies lightheadedness, Denies Loss of Consciousness and Denies dyspnea Respiratory: Reports no additional respiratory complaints and Denies dyspnea Gastrointestinal: Reports no additional gastrointestinal complaints, Denies abdominal pain, Denies melena, Denies hematochezia, Denies change in bowel habits and Denies change in stool character Musculoskeletal: Reports no additional musculoskeletal complaints, Denies numbness and Denies tingling Reports confusion (chronic for the patient - per her demented baseline), Denies dizziness, Denies loss of vision, Denies numbness and Denies tingling Psychiatric: Reports no additional psychiatric complaints and Reports confusion (chronic for the patient - per her demented baseline) Endocrine: Reports no additional endocrine complaints Hematologic/Lymphatic: Reports no additional hematologic/lymphatic complaints Allergic/Immunologic: Reports no additional allergic/immunologic complaints Mental Status Exam Mental Status Exam Narrative: Appearance: casually groomed, good hygiene, in NAD. [place]. ambulating with walker. Behavior: calm Psychomotor: no agitation or retardation noted Speech: mumbles, some difficulty enunciation, soft tone TP: goal oriented- wanting to go home. confabulation TC: wanting to go home Mood: good Affect:calm, congruent SI: none HI: none VH/AH: no overt signs Delusions: no overt delusional content reported but confabulates. Insight/judgment: impaired x 2 Memory/cog: alert, oriented only to self, not to place, month, year nor situation. Diagnostics Vital Signs (24Hr): Vital Signs - 24 hr 05/01/24 19:40 05/02/24 08:00 Temperature 96.9 F 97.0 F Pulse Rate 61 60 Respiratory Rate 16 18 Blood Pressure 142/74 H 126/64 Pulse Oximetry 95 95 Oxygen Delivery Method Room Air Room Air BMI result Body Mass Index 19.7 Labs 04/30/24 09:52 04/30/24 09:52 Imaging Radiology Impressions: ITS Impressions Chest X-Ray 04/21/24 14:43 IMPRESSION: Clear lungs. Electronically signed by: Micheal Barreto MD 04/21/2024 03:04 PM [facility] [place] Medications Medications Current Medications Acetaminophen (Acetaminophen 325 Mg Tablet) 975 mg PO TID PRN PRN Reason: Fever Or Pain Last Admin: 04/25/24 20:19 Dose: 975 mg Al Hydroxide/Mg Hydroxide (Magnesium Hydrox/Alum Hydrox 30 Ml Oral.Susp) 30 ml PO Q6H PRN PRN Reason: Heartburn/Nausea Atorvastatin Calcium (Atorvastatin Calcium 20 Mg Tablet) 20 mg PO DAILY [facility] Last Admin: 05/02/24 08:11 Dose: 20 mg Bisacodyl (Bisacodyl 10 Mg Supp.Rect) 10 mg [place] DAILY PRN PRN Reason: Constipation Last Admin: 04/02/24 12:43 Dose: 10 mg Divalproex Sodium (Divalproex Sodium Sprinkles 125 Mg ) 250 mg PO TID [facility] Last Admin: 05/02/24 15:57 Dose: 250 mg Donepezil HCl (Donepezil Hcl 5 Mg Tablet) 5 mg PO BEDTIME [facility] Last Admin: 05/01/24 19:41 Dose: 5 mg Famotidine (Famotidine 20 Mg Tablet) 20 mg PO BEDTIME [facility] Last Admin: 05/01/24 19:41 Dose: 20 mg Levothyroxine Sodium (Levothyroxine Sodium 75 Mcg Tablet) 75 mcg PO DAILY@0600 [facility] Last Admin: 05/02/24 05:30 Dose: 75 mcg Loratadine (Loratadine 10 Mg Tablet) 10 mg PO DAILY [facility] Last Admin: 05/02/24 08:11 Dose: 10 mg Lorazepam (Lorazepam 0.5 Mg Tablet) 0.5 mg PO TID PRN PRN Reason: anxiety/mild agitation Last Admin: 05/01/24 23:46 Dose: 0.5 mg Magnesium Hydroxide (Milk Of Magnesia 30 Ml Oral.Susp) 30 ml PO DAILY PRN PRN Reason: Constipation Last Admin: 03/28/24 20:36 Dose: 30 ml Olanzapine (Olanzapine 5 Mg Tablet) 5 mg PO Q6H PRN PRN Reason: agitation Last Admin: 04/28/24 16:35 Dose: 5 mg Olanzapine (Olanzapine 2.5 Mg Tablet) 2.5 mg PO BID [facility] Last Admin: 05/02/24 08:11 Dose: 2.5 mg Omeprazole (Omeprazole 20 Mg Capsule.Dr) 20 mg PO DAILY@0700 [facility] Last Admin: 05/02/24 06:04 Dose: 20 mg Oxybutynin Chloride (Oxybutynin Chloride Er 5 Mg Tab.Er.24) 15 mg PO DAILY [facility] Last Admin: 05/02/24 08:11 Dose: 15 mg Trazodone HCl (Trazodone Hcl 50 Mg Tablet) 50 mg PO BEDTIME PRN PRN Reason: sleep Last Admin: 05/01/24 23:47 Dose: 50 mg Trazodone HCl (Trazodone Hcl 50 Mg Tablet) 50 mg PO BEDTIME [facility] Last Admin: 05/01/24 19:41 Dose: 50 mg Allergies Allergies Allergy/AdvReac Type Severity Reaction Status Date / Time sulfamethoxazole Allergy Unknown Verified 03/03/24 14:32 [From Sulfamethoxazole-Trimethoprim] trimethoprim Allergy Unknown Verified 03/03/24 14:32 [From Sulfamethoxazole-Trimethoprim] Assessment & Plan Assessment & Plan (1) Major neurocognitive disorder due to Alzheimer's disease, without behavioral disturbance: Status: Acute Code(s): G30.9 - Alzheimer's disease, unspecified; F02.80 - Dementia in other diseases classified elsewhere, unspecified severity, without behavioral disturbance, psychotic disturbance, mood disturbance, and anxiety Plan Elderly female with a past history of Alzheimer's, recently in a subacute rehab due to subdural hematoma referred for exacerbation of agitation. The patient is a very poor historian unable to provide any details still very agitated. Plan 03/20 continue tx. will check ammonia and depakote level on 03/22/24 at 7am. 03/21: continue current management and treatment plan. check labs tomorrow. 03/22: Continue current management and treatment plan. Check Depakote level and ammonia on 03/23. 03/23 increase trazodone up to 25 p.o. t.i.d. to target anxiety. 03/24 keep same treatment. 03/25 keep same treatment 03/26 keep same treatment 03/27 trazodone will be lowered to 12.5 p.o. t.i.d. 03/29/24 Increase lorazepam 0.5 t.i.d. p.r.n. 03/30 keep same treatment. 03/31 keep same treatment 04/01 keep same treatment 04/02 keep same treatment 04/03 Will schedule trazodone 50mg po qhs (slept only 2 hrs.), increase olanzapine 2.5mg po TID. 04/04 more redirectable from changes of meds yesterday- 04/05- CTP 04/06- continue plan of care 04/07 continue same treatment 04/08 keep same treatment 04/09 keep same treatment 04/10 paperwork for information of healthcare proxy was done. 04/11 continue current plans and regimen 04/12: Continue current regimen and plans. 04/13: Continue current regimen and plans 04/14 continue same treatment 04/15 continue same treatment 04/16 continue same treatment 04/17 today we have the court hearing for affirmation of healthcare proxy. 04/18-04/19 continue tx plan -labs drawn and pt with DIANA and mild hyponatremia; -consult placed; encouraging fluid 04/20 keep same treatment 04/21 keep same treatment. 04/22 she is slightly over-sedated so we are changing Zyprexa to 2.5 p.o. b.i.d.. Blood work came back with better creatinine. 04/23 keep same treatment. 04/24 keep same treatment, waiting for placement. 04/25: no change in presentation. continue current mgmt. 04/26: orthostatic hypotension, fell last night. remains on 1:1. encourage fluids, continue current mgmt. 04/27 keep same treatment 04/28 keep same treatment 04/29 keep same treatment 04/30 continue tx. 05/01 continue tx. 05/02 noted decrease in H&H, RN had reported blood in stool, ordered occult blood test x 3, started on PPI may need GI consult. Reason for continued inpatient stay Substantial Risk for: inability to function Time Spent With Patient Time: Total time managing care of this patient today ____ minutes.
[2024-05-02] MEDS: Donepezil HCl 5 MG TABLET PO (19:48)
[2024-05-02] MEDS: Famotidine 20 MG TABLET PO (19:48)
[2024-05-02] MEDS: traZODone HCL 50 MG TABLET PO ×2 (19:48→22:56)
[2024-05-02 20:25] VITALS: BP 134/62; PULSE 69; RESP 16; TEMP 36.1; O2SAT 93
[2024-05-02] MEDS: LORazepam 0.5 MG TABLET PO (22:56)
[2024-05-03] MEDS: Levothyroxine Sodium 75 MCG TABLET PO (05:38)
[2024-05-03] MEDS: Omeprazole 20 MG CAPSULE.DR PO (06:06)
[2024-05-03 08:00] VITALS: BP 111/58; PULSE 74; RESP 16; TEMP 36.1; O2SAT 95
[2024-05-03] MEDS: Divalproex Sodium Sprinkles 125 MG CAP.DR.SPR 250 MG PO ×3 (08:38→19:41)
[2024-05-03] MEDS: oxyBUTYnin chloride ER 5 MG TAB.ER.24 15 MG PO (08:39)
[2024-05-03] MEDS: Loratadine 10 MG TABLET PO (08:39)
[2024-05-03] MEDS: Atorvastatin Calcium 20 MG TABLET PO (08:39)
[2024-05-03] MEDS: OLANZapine 2.5 MG TABLET PO ×2 (08:39→19:41)
--- NOTE | 2024-05-03 12:18 | HO.PSYCHPN ---
Subjective Subjective Date of Service: 05/03/24 Reason For Visit: combative behaviors Interim History: Pt sleeping through the night. She reports doing good she denies pain. She ambulates with walker, less impulsive, but does tend to want to go to different doors, asking for . Review of Systems Review of Systems none currently Yes all other systems are reviewed and are negative and Unobtainable due to mental status Constitutional: Reports no additional constitutional complaints, Denies chills, Denies fever(s) and Denies night sweats Eyes: Reports no additional eye complaints, Denies blurry vision, Denies change in vision, Denies diplopia, Denies eye discharge, Denies loss of vision and Denies eye pain Denies dizziness Cardiovascular: Reports no additional cardiovascular complaints, Denies chest pain, Denies lightheadedness, Denies Loss of Consciousness and Denies dyspnea Respiratory: Reports no additional respiratory complaints and Denies dyspnea Gastrointestinal: Reports no additional gastrointestinal complaints, Denies abdominal pain, Denies melena, Denies hematochezia, Denies change in bowel habits and Denies change in stool character Musculoskeletal: Reports no additional musculoskeletal complaints, Denies numbness and Denies tingling Reports confusion (chronic for the patient - per her demented baseline), Denies dizziness, Denies loss of vision, Denies numbness and Denies tingling Psychiatric: Reports no additional psychiatric complaints and Reports confusion (chronic for the patient - per her demented baseline) Endocrine: Reports no additional endocrine complaints Hematologic/Lymphatic: Reports no additional hematologic/lymphatic complaints Allergic/Immunologic: Reports no additional allergic/immunologic complaints Mental Status Exam Mental Status Exam Narrative: Appearance: casually groomed, good hygiene, in NAD. [place]. ambulating with walker. Behavior: calm Psychomotor: no agitation or retardation noted Speech: mumbles, some difficulty enunciation, soft tone TP: goal oriented- wanting to go home. confabulation TC: wanting to go home Mood: good Affect:calm, congruent SI: none HI: none VH/AH: no overt signs Delusions: no overt delusional content reported but confabulates. Insight/judgment: impaired x 2 Memory/cog: alert, oriented only to self, not to place, month, year nor situation. Diagnostics Vital Signs (24Hr): Vital Signs - 24 hr 05/02/24 20:25 05/03/24 08:00 Temperature 97 F 96.9 F Pulse Rate 69 74 Respiratory Rate 16 16 Blood Pressure 134/62 111/58 L Pulse Oximetry 93 95 Oxygen Delivery Method Room Air Room Air BMI result Body Mass Index 19.7 Labs 04/30/24 09:52 04/30/24 09:52 Imaging Radiology Impressions: ITS Impressions Chest X-Ray 04/21/24 14:43 IMPRESSION: Clear lungs. Electronically signed by: Micheal Barreto MD 04/21/2024 03:04 PM [facility] [place] Medications Medications Current Medications Acetaminophen (Acetaminophen 325 Mg Tablet) 975 mg PO TID PRN PRN Reason: Fever Or Pain Last Admin: 04/25/24 20:19 Dose: 975 mg Al Hydroxide/Mg Hydroxide (Magnesium Hydrox/Alum Hydrox 30 Ml Oral.Susp) 30 ml PO Q6H PRN PRN Reason: Heartburn/Nausea Atorvastatin Calcium (Atorvastatin Calcium 20 Mg Tablet) 20 mg PO DAILY [facility] Last Admin: 05/03/24 08:39 Dose: 20 mg Bisacodyl (Bisacodyl 10 Mg Supp.Rect) 10 mg [place] DAILY PRN PRN Reason: Constipation Last Admin: 04/02/24 12:43 Dose: 10 mg Divalproex Sodium (Divalproex Sodium Sprinkles 125 Mg ) 250 mg PO TID [facility] Last Admin: 05/03/24 08:38 Dose: 250 mg Donepezil HCl (Donepezil Hcl 5 Mg Tablet) 5 mg PO BEDTIME [facility] Last Admin: 05/02/24 19:48 Dose: 5 mg Levothyroxine Sodium (Levothyroxine Sodium 75 Mcg Tablet) 75 mcg PO DAILY@0600 [facility] Last Admin: 05/03/24 05:38 Dose: 75 mcg Loratadine (Loratadine 10 Mg Tablet) 10 mg PO DAILY [facility] Last Admin: 05/03/24 08:39 Dose: 10 mg Lorazepam (Lorazepam 0.5 Mg Tablet) 0.5 mg PO TID PRN PRN Reason: anxiety/mild agitation Last Admin: 05/02/24 22:56 Dose: 0.5 mg Magnesium Hydroxide (Milk Of Magnesia 30 Ml Oral.Susp) 30 ml PO DAILY PRN PRN Reason: Constipation Last Admin: 03/28/24 20:36 Dose: 30 ml Olanzapine (Olanzapine 5 Mg Tablet) 5 mg PO Q6H PRN PRN Reason: agitation Last Admin: 04/28/24 16:35 Dose: 5 mg Olanzapine (Olanzapine 2.5 Mg Tablet) 2.5 mg PO BID [facility] Last Admin: 05/03/24 08:39 Dose: 2.5 mg Omeprazole (Omeprazole 20 Mg Capsule.Dr) 20 mg PO DAILY@0700 [facility] Last Admin: 05/03/24 06:06 Dose: 20 mg Oxybutynin Chloride (Oxybutynin Chloride Er 5 Mg Tab.Er.24) 15 mg PO DAILY [facility] Last Admin: 05/03/24 08:39 Dose: 15 mg Trazodone HCl (Trazodone Hcl 50 Mg Tablet) 50 mg PO BEDTIME PRN PRN Reason: sleep Last Admin: 05/02/24 22:56 Dose: 50 mg Trazodone HCl (Trazodone Hcl 50 Mg Tablet) 50 mg PO BEDTIME [facility] Last Admin: 05/02/24 19:48 Dose: 50 mg Allergies Allergies Allergy/AdvReac Type Severity Reaction Status Date / Time sulfamethoxazole Allergy Unknown Verified 03/03/24 14:32 [From Sulfamethoxazole-Trimethoprim] trimethoprim Allergy Unknown Verified 03/03/24 14:32 [From Sulfamethoxazole-Trimethoprim] Assessment & Plan Assessment & Plan (1) Major neurocognitive disorder due to Alzheimer's disease, without behavioral disturbance: Status: Acute Code(s): G30.9 - Alzheimer's disease, unspecified; F02.80 - Dementia in other diseases classified elsewhere, unspecified severity, without behavioral disturbance, psychotic disturbance, mood disturbance, and anxiety Plan Elderly female with a past history of Alzheimer's, recently in a subacute rehab due to subdural hematoma referred for exacerbation of agitation. The patient is a very poor historian unable to provide any details still very agitated. Plan 03/20 continue tx. will check ammonia and depakote level on 03/22/24 at 7am. 03/21: continue current management and treatment plan. check labs tomorrow. 03/22: Continue current management and treatment plan. Check Depakote level and ammonia on 03/23. 03/23 increase trazodone up to 25 p.o. t.i.d. to target anxiety. 03/24 keep same treatment. 03/25 keep same treatment 03/26 keep same treatment 03/27 trazodone will be lowered to 12.5 p.o. t.i.d. 03/29/24 Increase lorazepam 0.5 t.i.d. p.r.n. 03/30 keep same treatment. 03/31 keep same treatment 04/01 keep same treatment 04/02 keep same treatment 04/03 Will schedule trazodone 50mg po qhs (slept only 2 hrs.), increase olanzapine 2.5mg po TID. 04/04 more redirectable from changes of meds yesterday- 04/05- CTP 04/06- continue plan of care 04/07 continue same treatment 04/08 keep same treatment 04/09 keep same treatment 04/10 paperwork for information of healthcare proxy was done. 04/11 continue current plans and regimen 04/12: Continue current regimen and plans. 04/13: Continue current regimen and plans 04/14 continue same treatment 04/15 continue same treatment 04/16 continue same treatment 04/17 today we have the court hearing for affirmation of healthcare proxy. 04/18-04/19 continue tx plan -labs drawn and pt with DIANA and mild hyponatremia; -consult placed; encouraging fluid 04/20 keep same treatment 04/21 keep same treatment. 04/22 she is slightly over-sedated so we are changing Zyprexa to 2.5 p.o. b.i.d.. Blood work came back with better creatinine. 04/23 keep same treatment. 04/24 keep same treatment, waiting for placement. 04/25: no change in presentation. continue current mgmt. 04/26: orthostatic hypotension, fell last night. remains on 1:1. encourage fluids, continue current mgmt. 04/27 keep same treatment 04/28 keep same treatment 04/29 keep same treatment 04/30 continue tx. 05/01 continue tx. 05/02 noted decrease in H&H, RN had reported blood in stool, ordered occult blood test x 3, started on PPI may need GI consult. 05/03 continue current tx. pending GI consult. Reason for continued inpatient stay Substantial Risk for: inability to function Time Spent With Patient Time: Total time managing care of this patient today ____ minutes.
[2024-05-03 19:18] VITALS: BP 131/67; PULSE 73; RESP 16; TEMP 36.4; O2SAT 97
[2024-05-03] MEDS: traZODone HCL 50 MG TABLET PO ×2 (19:41→23:09)
[2024-05-03] MEDS: Donepezil HCl 5 MG TABLET PO (19:41)
[2024-05-03] MEDS: LORazepam 0.5 MG TABLET PO (23:08)
[2024-05-04] MEDS: Levothyroxine Sodium 75 MCG TABLET PO (05:49)
[2024-05-04] MEDS: Omeprazole 20 MG CAPSULE.DR PO (06:28)
[2024-05-04 07:55] VITALS: BP 141/68; PULSE 62; RESP 18; TEMP 36.6; O2SAT 98
[2024-05-04] MEDS: Atorvastatin Calcium 20 MG TABLET PO (08:12)
[2024-05-04] MEDS: Divalproex Sodium Sprinkles 125 MG CAP.DR.SPR 250 MG PO ×3 (08:12→20:36)
[2024-05-04] MEDS: oxyBUTYnin chloride ER 5 MG TAB.ER.24 15 MG PO (08:12)
[2024-05-04] MEDS: Loratadine 10 MG TABLET PO (08:12)
[2024-05-04] MEDS: OLANZapine 2.5 MG TABLET PO ×2 (08:12→20:35)
[2024-05-04 08:30] LABS: Basophils Percent Auto 0.4 % (0-2); Eosinophils Absolute Auto 0.2 X10*3/uL (0.0-0.4); Eosinophils Percent Auto 3.3 % (0-4); Hematocrit 34.8 % (37.0-47.0); Hemoglobin 11.3 g/dl (12.0-16.0); Imm Gran Abs Auto 0.01 X10*3/uL (0.00-0.03); Imm Gran Pct Auto 0.1 % (0.0-0.4); Lymphocytes Absolute Auto 4.6 X10*3/uL (1.2-4.9); Lymphocytes Percent Auto 63.2 % (20-40); MANUAL DIFF FLAG SCAN; Mean Corpuscular HGB Conc 32.5 g/dl (31.0-35.0); Mean Corpuscular Hemoglobin 30.5 pg (27.0-33.0); Mean Corpuscular Volume 94.1 fL (80.0-98.0); Mean Platelet Volume 11.6 fL (9.4-12.3); Monocytes Absolute Auto 0.8 X10*3/uL (0.1-1.2); Monocytes Percent Auto 10.7 % (2-11); Neutrophils Absolute Auto 1.6 x10*3/uL (2.0-8.3); Neutrophils Percent Auto 22.3 % (45-73); Platelet Count 116 X10*3/uL (160-400); Red Cell Distribution Width 14.2 % (11.0-16.0); SCAN SMEAR FLAG 1; White Blood Count 7.3 X10*3/uL (4.8-10.8)
[2024-05-04 08:51] LABS: SLIDE REVIEW VERIFIED
--- NOTE | 2024-05-04 10:15 | HO.PSYCHPN ---
Subjective Subjective Date of Service: 05/04/24 Reason For Visit: combative behaviors Subjective Notes: Conditional Voluntary Healthcare Proxy: Yes Interim History: Pt slept through the night. She is taking medications as prescribed. repeat H&H improved, no risk of ongoing bleed. She is less impulsive, no aggression. Not oriented to situation, month, or year. She continues on 1 to 1 risk for fall. VS stable. Review of Systems Review of Systems none currently Yes all other systems are reviewed and are negative and Unobtainable due to mental status Constitutional: Reports no additional constitutional complaints, Denies chills, Denies fever(s) and Denies night sweats Eyes: Reports no additional eye complaints, Denies blurry vision, Denies change in vision, Denies diplopia, Denies eye discharge, Denies loss of vision and Denies eye pain Denies dizziness Cardiovascular: Reports no additional cardiovascular complaints, Denies chest pain, Denies lightheadedness, Denies Loss of Consciousness and Denies dyspnea Respiratory: Reports no additional respiratory complaints and Denies dyspnea Gastrointestinal: Reports no additional gastrointestinal complaints, Denies abdominal pain, Denies melena, Denies hematochezia, Denies change in bowel habits and Denies change in stool character Musculoskeletal: Reports no additional musculoskeletal complaints, Denies numbness and Denies tingling Reports confusion (chronic for the patient - per her demented baseline), Denies dizziness, Denies loss of vision, Denies numbness and Denies tingling Psychiatric: Reports no additional psychiatric complaints and Reports confusion (chronic for the patient - per her demented baseline) Endocrine: Reports no additional endocrine complaints Hematologic/Lymphatic: Reports no additional hematologic/lymphatic complaints Allergic/Immunologic: Reports no additional allergic/immunologic complaints Mental Status Exam Mental Status Exam Narrative: Appearance: casually groomed, good hygiene, in NAD. [place]. ambulating with walker. Behavior: calm Psychomotor: no agitation or retardation noted Speech: mumbles, some difficulty enunciation, soft tone TP: goal oriented- wanting to go home. confabulation TC: wanting to go home Mood: good Affect:calm, congruent SI: none HI: none VH/AH: no overt signs Delusions: no overt delusional content reported but confabulates. Insight/judgment: impaired x 2 Memory/cog: alert, oriented only to self, not to place, month, year nor situation. Diagnostics Vital Signs (24Hr): Vital Signs - 24 hr 05/03/24 19:18 05/04/24 07:55 Temperature 97.6 F 97.8 F Pulse Rate 73 62 Respiratory Rate 16 18 Blood Pressure 131/67 141/68 H Pulse Oximetry 97 98 Oxygen Delivery Method Nasal Cannula Room Air BMI result Body Mass Index 19.7 Labs 05/04/24 08:12 04/30/24 09:52 Labs: Laboratory Results - last 48 hr 05/04/24 08:12 WBC 7.3 RBC 3.70 L Hgb 11.3 L Hct 34.8 L MCV 94.1 MCH 30.5 MCHC 32.5 RDW 14.2 Plt Count 116 L MPV 11.6 Immature Gran % (Auto) 0.1 Neut % (Auto) 22.3 L Lymph % (Auto) 63.2 H Bowman % (Auto) 10.7 Eos % (Auto) 3.3 Baso % (Auto) 0.4 Lymph # (Auto) 4.6 Bowman # (Auto) 0.8 Eos # (Auto) 0.2 Baso # (Auto) 0.0 Abs Immat Gran (auto) 0.01 Absolute Neuts (auto) 1.6 L Absolute Nucleated RBC 0.000 Nucleated RBC % (auto) 0.0 Smear Tech's Comments VERIFIED Imaging Radiology Impressions: ITS Impressions Chest X-Ray 04/21/24 14:43 IMPRESSION: Clear lungs. Electronically signed by: Micheal Barreto MD 04/21/2024 03:04 PM [facility] [place] Medications Medications Current Medications Acetaminophen (Acetaminophen 325 Mg Tablet) 975 mg PO TID PRN PRN Reason: Fever Or Pain Last Admin: 04/25/24 20:19 Dose: 975 mg Al Hydroxide/Mg Hydroxide (Magnesium Hydrox/Alum Hydrox 30 Ml Oral.Susp) 30 ml PO Q6H PRN PRN Reason: Heartburn/Nausea Atorvastatin Calcium (Atorvastatin Calcium 20 Mg Tablet) 20 mg PO DAILY GLADIS Last Admin: 05/04/24 08:12 Dose: 20 mg Bisacodyl (Bisacodyl 10 Mg Supp.Rect) 10 mg [place] DAILY PRN PRN Reason: Constipation Last Admin: 04/02/24 12:43 Dose: 10 mg Divalproex Sodium (Divalproex Sodium Sprinkles 125 Mg Cap.Dr.Spr) 250 mg PO TID [facility] Last Admin: 05/04/24 08:12 Dose: 250 mg Donepezil HCl (Donepezil Hcl 5 Mg Tablet) 5 mg PO BEDTIME [facility] Last Admin: 05/03/24 19:41 Dose: 5 mg Levothyroxine Sodium (Levothyroxine Sodium 75 Mcg Tablet) 75 mcg PO DAILY@0600 [facility] Last Admin: 05/04/24 05:49 Dose: 75 mcg Loratadine (Loratadine 10 Mg Tablet) 10 mg PO DAILY [facility] Last Admin: 05/04/24 08:12 Dose: 10 mg Lorazepam (Lorazepam 0.5 Mg Tablet) 0.5 mg PO TID PRN PRN Reason: anxiety/mild agitation Last Admin: 05/03/24 23:08 Dose: 0.5 mg Magnesium Hydroxide (Milk Of Magnesia 30 Ml Oral.Susp) 30 ml PO DAILY PRN PRN Reason: Constipation Last Admin: 03/28/24 20:36 Dose: 30 ml Olanzapine (Olanzapine 5 Mg Tablet) 5 mg PO Q6H PRN PRN Reason: agitation Last Admin: 04/28/24 16:35 Dose: 5 mg Olanzapine (Olanzapine 2.5 Mg Tablet) 2.5 mg PO BID [facility] Last Admin: 05/04/24 08:12 Dose: 2.5 mg Omeprazole (Omeprazole 20 Mg Capsule.) 20 mg PO DAILY@0700 [facility] Last Admin: 05/04/24 06:28 Dose: 20 mg Oxybutynin Chloride (Oxybutynin Chloride Er 5 Mg Tab.Er.24) 15 mg PO DAILY [facility] Last Admin: 05/04/24 08:12 Dose: 15 mg Trazodone HCl (Trazodone Hcl 50 Mg Tablet) 50 mg PO BEDTIME PRN PRN Reason: sleep Last Admin: 05/03/24 23:09 Dose: 50 mg Trazodone HCl (Trazodone Hcl 50 Mg Tablet) 50 mg PO BEDTIME [facility] Last Admin: 05/03/24 19:41 Dose: 50 mg Allergies Allergies Allergy/AdvReac Type Severity Reaction Status Date / Time sulfamethoxazole Allergy Unknown Verified 03/03/24 14:32 [From Sulfamethoxazole-Trimethoprim] trimethoprim Allergy Unknown Verified 03/03/24 14:32 [From Sulfamethoxazole-Trimethoprim] Assessment & Plan Assessment & Plan (1) Major neurocognitive disorder due to Alzheimer's disease, without behavioral disturbance: Status: Acute Code(s): G30.9 - Alzheimer's disease, unspecified; F02.80 - Dementia in other diseases classified elsewhere, unspecified severity, without behavioral disturbance, psychotic disturbance, mood disturbance, and anxiety Plan Elderly female with a past history of Alzheimer's, recently in a subacute rehab due to subdural hematoma referred for exacerbation of agitation. The patient is a very poor historian unable to provide any details still very agitated. Plan 03/20 continue tx. will check ammonia and depakote level on 03/22/24 at 7am. 03/21: continue current management and treatment plan. check labs tomorrow. 03/22: Continue current management and treatment plan. Check Depakote level and ammonia on 03/23. 03/23 increase trazodone up to 25 p.o. t.i.d. to target anxiety. 03/24 keep same treatment. 03/25 keep same treatment 03/26 keep same treatment 03/27 trazodone will be lowered to 12.5 p.o. t.i.d. 03/29/24 Increase lorazepam 0.5 t.i.d. p.r.n. 03/30 keep same treatment. 03/31 keep same treatment 04/01 keep same treatment 04/02 keep same treatment 04/03 Will schedule trazodone 50mg po qhs (slept only 2 hrs.), increase olanzapine 2.5mg po TID. 04/04 more redirectable from changes of meds yesterday- 04/05- CTP 04/06- continue plan of care 04/07 continue same treatment 04/08 keep same treatment 04/09 keep same treatment 04/10 paperwork for information of healthcare proxy was done. 04/11 continue current plans and regimen 04/12: Continue current regimen and plans. 04/13: Continue current regimen and plans 04/14 continue same treatment 04/15 continue same treatment 04/16 continue same treatment 04/17 [address] hearing for affirmation of healthcare proxy. 04/18-04/19 continue tx plan -labs drawn and pt with DIANA and mild hyponatremia; -consult placed; encouraging fluid 04/20 keep same treatment 04/21 keep same treatment. 04/22 she is slightly over-sedated so we are changing Zyprexa to 2.5 p.o. b.i.d.. Blood work came back with better creatinine. 04/23 keep same treatment. 04/24 keep same treatment, waiting for placement. 04/25: no change in presentation. continue current mgmt. 04/26: orthostatic hypotension, fell last night. remains on 1:1. encourage fluids, continue current mgmt. 04/27 keep same treatment 04/28 keep same treatment 04/29 keep same treatment 04/30 continue tx. 05/01 continue tx. 05/02 noted decrease in H&H, RN had reported blood in stool, ordered occult blood test x 3, started on PPI may need GI consult. 05/03 continue current tx. pending GI consult. 05/04 continue tx. repeat H&H improved. Reason for continued inpatient stay Substantial Risk for: inability to function Time Spent With Patient Time: Total time managing care of this patient today ____ minutes.
--- NOTE | 2024-05-04 11:20 | PM.GICN ---
History of Present Illness Data of Consult Service Date: 05/04/24 Requesting physician: Bee Bronson Primary Care Provider: Joseph Alejandro MD HPI Reason for consult: ? anemia PMFSH Past Medical History Medical History Dementia H/O: hypothyroidism Glaucoma Social History Social History Household Members: Spouse Housing: House Do you presently have visiting nurse or other home services: Yes (visiting nurse every 6 months for assmts) Alcohol intake: former Comment: 1:1 supervision Patient Tobacco Use Status: Never used Tobacco Smoked in Last 30 Days: No Patient Interested in Nicotine Replacement: No Patient Given Instructions on How to Stop Smoking: No Second Hand Smoke Exposure: No Use of substances other than those prescribed or required for medical reasons: No Currently Displaying Signs/Symptoms of Drug Intoxication Withdrawal: No Any prior treatment program specific to substance use: No Spiritual Healthcare Practices: Pt. will sleep at least 6 hours a night. [facility] Practices: Pt. will sleep at least 6 hours a night. Cultural Healthcare Practices: Pt. will sleep at least 6 hours a night. Advance Directives: Yes Advance Directives on File: Yes Advance Directives Date on File: 03/03/24 Do you have thoughts of harming others: None Do you have a plan to hurt others: No Plan Recently lost weight without trying: No Nutrition Risks: No Nutritional Risk Patient : No : No Poor oral hygiene: No Sexual orientation: Straight/Heterosexual Meds Allergies Allergy/AdvReac Type Severity Reaction Status Date / Time sulfamethoxazole Allergy Unknown Verified 03/03/24 14:32 [From Sulfamethoxazole-Trimethoprim] trimethoprim Allergy Unknown Verified 03/03/24 14:32 [From Sulfamethoxazole-Trimethoprim] Active Medications: Current Medications Acetaminophen (Acetaminophen 325 Mg Tablet) 975 mg PO TID PRN PRN Reason: Fever Or Pain Last Admin: 04/25/24 20:19 Dose: 975 mg Al Hydroxide/Mg Hydroxide (Magnesium Hydrox/Alum Hydrox 30 Ml Oral.Susp) 30 ml PO Q6H PRN PRN Reason: Heartburn/Nausea Atorvastatin Calcium (Atorvastatin Calcium 20 Mg Tablet) 20 mg PO DAILY GLADIS Last Admin: 05/04/24 08:12 Dose: 20 mg Bisacodyl (Bisacodyl 10 Mg Supp.Rect) 10 mg [place] DAILY PRN PRN Reason: Constipation Last Admin: 04/02/24 12:43 Dose: 10 mg Divalproex Sodium (Divalproex Sodium Sprinkles 125 Mg Cap.) 250 mg PO TID COUNTS INCLUDE 234 BEDS AT THE [facility] Last Admin: 05/04/24 08:12 Dose: 250 mg Donepezil HCl (Donepezil Hcl 5 Mg Tablet) 5 mg PO BEDTIME COUNTS INCLUDE 234 BEDS AT THE [facility] Last Admin: 05/03/24 19:41 Dose: 5 mg Levothyroxine Sodium (Levothyroxine Sodium 75 Mcg Tablet) 75 mcg PO DAILY@0600 COUNTS INCLUDE 234 BEDS AT THE [facility] Last Admin: 05/04/24 05:49 Dose: 75 mcg Loratadine (Loratadine 10 Mg Tablet) 10 mg PO DAILY COUNTS INCLUDE 234 BEDS AT THE [facility] Last Admin: 05/04/24 08:12 Dose: 10 mg Lorazepam (Lorazepam 0.5 Mg Tablet) 0.5 mg PO TID PRN PRN Reason: anxiety/mild agitation Last Admin: 05/03/24 23:08 Dose: 0.5 mg Magnesium Hydroxide (Milk Of Magnesia 30 Ml Oral.Susp) 30 ml PO DAILY PRN PRN Reason: Constipation Last Admin: 03/28/24 20:36 Dose: 30 ml Olanzapine (Olanzapine 5 Mg Tablet) 5 mg PO Q6H PRN PRN Reason: agitation Last Admin: 04/28/24 16:35 Dose: 5 mg Olanzapine (Olanzapine 2.5 Mg Tablet) 2.5 mg PO BID COUNTS INCLUDE 234 BEDS AT THE [facility] Last Admin: 05/04/24 08:12 Dose: 2.5 mg Omeprazole (Omeprazole 20 Mg Capsule.) 20 mg PO DAILY@0700 COUNTS INCLUDE 234 BEDS AT THE [facility] Last Admin: 05/04/24 06:28 Dose: 20 mg Oxybutynin Chloride (Oxybutynin Chloride Er 5 Mg Tab.Er.24) 15 mg PO DAILY COUNTS INCLUDE 234 BEDS AT THE [facility] Last Admin: 05/04/24 08:12 Dose: 15 mg Trazodone HCl (Trazodone Hcl 50 Mg Tablet) 50 mg PO BEDTIME PRN PRN Reason: sleep Last Admin: 05/03/24 23:09 Dose: 50 mg Trazodone HCl (Trazodone Hcl 50 Mg Tablet) 50 mg PO BEDTIME COUNTS INCLUDE 234 BEDS AT THE [facility] Last Admin: 05/03/24 19:41 Dose: 50 mg Home Medications ?Medication ?Instructions ?Recorded ?Confirmed ?Last Taken ?Type acetaminophen 325 mg tablet 975 mg PO TID PRN Fever Or Pain 03/04/24 03/04/24 Unknown History atorvastatin 20 mg tablet 20 mg PO DAILY 03/04/24 03/04/24 Unknown History bisacodyl 10 mg rectal suppository 10 mg [place] DAILY PRN Constipation 03/04/24 03/04/24 Unknown History cholecalciferol (vitamin D3) 50 50 mcg PO DAILY 03/04/24 03/04/24 Unknown History mcg (2,000 unit) tablet (Vitamin D3) divalproex 250 mg tablet,extended 250 mg PO TID 03/04/24 03/04/24 Unknown History release 24 hr donepezil 5 mg tablet 5 mg PO BEDTIME 03/04/24 03/04/24 Unknown History famotidine 20 mg tablet 20 mg PO BEDTIME 03/04/24 03/04/24 Unknown History fluticasone propionate 50 2 spray intranasal DAILY 03/04/24 03/04/24 Unknown History mcg/actuation nasal spray,suspension levothyroxine 75 mcg tablet 75 mcg PO DAILY@0600 03/04/24 03/04/24 Unknown History loratadine 10 mg tablet 10 mg PO DAILY 03/04/24 03/04/24 Unknown History lorazepam 0.5 mg tablet 0.5 mg PO BID PRN severe agitation 03/04/24 03/04/24 Unknown History magnesium hydroxide 400 mg/5 mL 30 ml PO DAILY PRN Constipation 03/04/24 03/04/24 Unknown History oral suspension (Milk of Magnesia) naloxone 4 mg/actuation nasal 1 spray intranasal Q3M PRN Opiate 03/04/24 03/04/24 Unknown History spray (Narcan) Reversal olanzapine 2.5 mg tablet 2.5 mg PO BID PRN Agitation 03/04/24 03/04/24 Unknown History olanzapine 2.5 mg tablet (Zyprexa) 2.5 mg PO BID 03/04/24 03/04/24 Unknown History oxybutynin chloride 15 mg 15 mg PO DAILY 03/04/24 03/04/24 Unknown History tablet,extended release 24 hr sodium phosphates 19 gram-7 118 ml [place] DAILY PRN Constipation 03/04/24 03/04/24 Unknown History gram/118 mL enema (Fleet Enema) timolol maleate 0.5 % eye drops 1 drp ophthalmic (eye) DAILY 03/04/24 03/04/24 Unknown History trazodone 50 mg tablet 25 mg PO BEDTIME PRN Agitation 03/04/24 03/04/24 Unknown History trazodone 50 mg tablet 25 mg PO Q6H PRN Agitation 03/04/24 03/04/24 Unknown History Physical Exam Vital Signs: Vital Signs: Last Vital Signs Temp 97.8 F 05/04/24 07:55 Pulse 62 05/04/24 07:55 Resp 18 05/04/24 07:55 BP 141/68 H 05/04/24 07:55 Pulse Ox 98 05/04/24 07:55 O2 Del Method Room Air 05/04/24 07:55 BMI result Body Mass Index 19.7 Results Labs 05/04/24 08:12 04/30/24 09:52 Labs: Short CBC 05/04/24 Range/Units 08:12 WBC 7.3 (4.8-10.8) X10*3/uL Hgb 11.3 L (12.0-16.0) g/dl Hct 34.8 L (37.0-47.0) % Plt Count 116 L (160-400) X10*3/uL Microbiology Microbiology Results: Microbiology 04/25/24 00:00 Urine clean catch - Clean Catch Midstream Urine Culture - Final No growth. 04/14/24 Unknown Urine clean catch - Clean Catch Midstream Urine Culture - Final 03/13/24 03:00 Urine clean catch - Clean Catch Midstream Urine Culture - Final 03/10/24 Unknown Urine clean catch - Clean Catch Midstream Urine Culture - Final 03/03/24 Unknown Urine clean catch - Clean Catch Midstream Urine Culture - Final Procedures Date of Service Date of Service: 05/04/24
--- NOTE | 2024-05-04 16:11 | PM.EVENT ---
Event Note Date of Service: 05/04/24 Event Note: Consulted requested by Bee Bronson for question of GI bleed. Pt seen at bedside but asleep and could not be easily awakened. Per the sitters, this was her baseline. No report of abd pain, change in stool, hematemesis, melena reported by care team. Pt tolerating diet without any issues. CBC reviewed - unchanged (in fact slightly better). Pt not completely evaluated today, as above, but does not appear to have any evidence of overt GI bleed at this time. Will sign off but remain available if any issues arise in future. Laboratory Tests 03/10/24 04/21/24 04/30/24 07:55 15:02 09:52 Hgb 10.8 L 10.9 L 10.8 L Hct 33.0 L 34.3 L 33.0 L 05/04/24 08:12 Hgb 11.3 L Hct 34.8 L Time Spent With Patient Time: Total time managing care of this patient today ____ minutes.
[2024-05-04 20:00] VITALS: BP 124/60; PULSE 74; RESP 16; TEMP 36.8; O2SAT 98
[2024-05-04] MEDS: Donepezil HCl 5 MG TABLET PO (20:36)
[2024-05-04] MEDS: traZODone HCL 50 MG TABLET PO (20:36)
[2024-05-05] MEDS: Levothyroxine Sodium 75 MCG TABLET PO (06:31)
[2024-05-05] MEDS: Omeprazole 20 MG CAPSULE.DR PO (06:31)
[2024-05-05 08:00] VITALS: BP 123/61; PULSE 69; RESP 18; TEMP 36.6; O2SAT 97
[2024-05-05] MEDS: Loratadine 10 MG TABLET PO (08:17)
[2024-05-05] MEDS: Divalproex Sodium Sprinkles 125 MG CAP.DR.SPR 250 MG PO ×3 (08:17→20:57)
[2024-05-05] MEDS: Atorvastatin Calcium 20 MG TABLET PO (08:17)
[2024-05-05] MEDS: oxyBUTYnin chloride ER 5 MG TAB.ER.24 15 MG PO (08:17)
[2024-05-05] MEDS: OLANZapine 2.5 MG TABLET PO ×2 (08:57→20:58)
--- NOTE | 2024-05-05 12:37 | P.PNPSI_ITS ---
Subjective Subjective Date of Service: 05/05/24 Reason For Visit: combative behaviors Subjective Notes: Conditional Voluntary Healthcare Proxy: Yes Interim History: Pt slept through the night. She is taking medications as prescribed. repeat H&H improved, no risk of ongoing bleed. She is less impulsive, no aggression. Not oriented to situation, month, or year. She continues on 1 to 1 risk for fall. VS stable. Review of Systems Review of Systems none currently Yes all other systems are reviewed and are negative and Unobtainable due to mental status Constitutional: Reports no additional constitutional complaints, Denies chills, Denies fever(s) and Denies night sweats Eyes: Reports no additional eye complaints, Denies blurry vision, Denies change in vision, Denies diplopia, Denies eye discharge, Denies loss of vision and Denies eye pain Denies dizziness Cardiovascular: Reports no additional cardiovascular complaints, Denies chest pain, Denies lightheadedness, Denies Loss of Consciousness and Denies dyspnea Respiratory: Reports no additional respiratory complaints and Denies dyspnea Gastrointestinal: Reports no additional gastrointestinal complaints, Denies abdominal pain, Denies melena, Denies hematochezia, Denies change in bowel habits and Denies change in stool character Musculoskeletal: Reports no additional musculoskeletal complaints, Denies numbness and Denies tingling Reports confusion (chronic for the patient - per her demented baseline), Denies dizziness, Denies loss of vision, Denies numbness and Denies tingling Psychiatric: Reports no additional psychiatric complaints and Reports confusion (chronic for the patient - per her demented baseline) Endocrine: Reports no additional endocrine complaints Hematologic/Lymphatic: Reports no additional hematologic/lymphatic complaints Allergic/Immunologic: Reports no additional allergic/immunologic complaints Mental Status Exam Mental Status Exam Narrative: Appearance: casually groomed, good hygiene, in NAD. [place]. ambulating with walker. Behavior: calm Psychomotor: no agitation or retardation noted Speech: mumbles, some difficulty enunciation, soft tone TP: goal oriented- wanting to go home. confabulation TC: wanting to go home Mood: good Affect:calm, congruent SI: none HI: none VH/AH: no overt signs Delusions: no overt delusional content reported but confabulates. Insight/judgment: impaired x 2 Memory/cog: alert, oriented only to self, not to place, month, year nor situation. Diagnostics Vital Signs (24Hr): Vital Signs - 24 hr 05/04/24 20:00 05/05/24 08:00 Temperature 98.2 F 97.9 F Pulse Rate 74 69 Respiratory Rate 16 18 Blood Pressure 124/60 123/61 Pulse Oximetry 98 97 Oxygen Delivery Method Room Air Room Air BMI result Body Mass Index 19.7 Labs 05/04/24 08:12 04/30/24 09:52 Labs: Laboratory Results - last 48 hr 05/04/24 08:12 WBC 7.3 RBC 3.70 L Hgb 11.3 L Hct 34.8 L MCV 94.1 MCH 30.5 MCHC 32.5 RDW 14.2 Plt Count 116 L MPV 11.6 Immature Gran % (Auto) 0.1 Neut % (Auto) 22.3 L Lymph % (Auto) 63.2 H Andrew % (Auto) 10.7 Eos % (Auto) 3.3 Baso % (Auto) 0.4 Lymph # (Auto) 4.6 Andrew # (Auto) 0.8 Eos # (Auto) 0.2 Baso # (Auto) 0.0 Abs Immat Gran (auto) 0.01 Absolute Neuts (auto) 1.6 L Absolute Nucleated RBC 0.000 Nucleated RBC % (auto) 0.0 Smear Tech's Comments VERIFIED Imaging Radiology Impressions: ITS Impressions Chest X-Ray 04/21/24 14:43 IMPRESSION: Clear lungs. Electronically signed by: Micheal Barreto MD 04/21/2024 03:04 PM [facility] Medications Medications Current Medications Acetaminophen (Acetaminophen 325 Mg Tablet) 975 mg PO TID PRN PRN Reason: Fever Or Pain Last Admin: 04/25/24 20:19 Dose: 975 mg Al Hydroxide/Mg Hydroxide (Magnesium Hydrox/Alum Hydrox 30 Ml Oral.Susp) 30 ml PO Q6H PRN PRN Reason: Heartburn/Nausea Atorvastatin Calcium (Atorvastatin Calcium 20 Mg Tablet) 20 mg PO DAILY [facility] Last Admin: 05/05/24 08:17 Dose: 20 mg Bisacodyl (Bisacodyl 10 Mg Supp.Rect) 10 mg [place] DAILY PRN PRN Reason: Constipation Last Admin: 04/02/24 12:43 Dose: 10 mg Divalproex Sodium (Divalproex Sodium Sprinkles 125 Mg Cap.Spr) 250 mg PO TID [facility] Last Admin: 05/05/24 08:17 Dose: 250 mg Donepezil HCl (Donepezil Hcl 5 Mg Tablet) 5 mg PO BEDTIME [facility] Last Admin: 05/04/24 20:36 Dose: 5 mg Levothyroxine Sodium (Levothyroxine Sodium 75 Mcg Tablet) 75 mcg PO DAILY@0600 [facility] Last Admin: 05/05/24 06:31 Dose: 75 mcg Loratadine (Loratadine 10 Mg Tablet) 10 mg PO DAILY [facility] Last Admin: 05/05/24 08:17 Dose: 10 mg Lorazepam (Lorazepam 0.5 Mg Tablet) 0.5 mg PO TID PRN PRN Reason: anxiety/mild agitation Last Admin: 05/03/24 23:08 Dose: 0.5 mg Magnesium Hydroxide (Milk Of Magnesia 30 Ml Oral.Susp) 30 ml PO DAILY PRN PRN Reason: Constipation Last Admin: 03/28/24 20:36 Dose: 30 ml Olanzapine (Olanzapine 5 Mg Tablet) 5 mg PO Q6H PRN PRN Reason: agitation Last Admin: 04/28/24 16:35 Dose: 5 mg Olanzapine (Olanzapine 2.5 Mg Tablet) 2.5 mg PO BID [facility] Last Admin: 05/05/24 08:57 Dose: 2.5 mg Omeprazole (Omeprazole 20 Mg Capsule.) 20 mg PO DAILY@0700 [facility] Last Admin: 05/05/24 06:31 Dose: 20 mg Oxybutynin Chloride (Oxybutynin Chloride Er 5 Mg Tab.Er.24) 15 mg PO DAILY [facility] Last Admin: 05/05/24 08:17 Dose: 15 mg Trazodone HCl (Trazodone Hcl 50 Mg Tablet) 50 mg PO BEDTIME PRN PRN Reason: sleep Last Admin: 05/03/24 23:09 Dose: 50 mg Trazodone HCl (Trazodone Hcl 50 Mg Tablet) 50 mg PO BEDTIME [facility] Last Admin: 05/04/24 20:36 Dose: 50 mg Allergies Allergies Allergy/AdvReac Type Severity Reaction Status Date / Time sulfamethoxazole Allergy Unknown Verified 03/03/24 14:32 [From Sulfamethoxazole-Trimethoprim] trimethoprim Allergy Unknown Verified 03/03/24 14:32 [From Sulfamethoxazole-Trimethoprim] Assessment & Plan Assessment & Plan (1) Major neurocognitive disorder due to Alzheimer's disease, without behavioral disturbance: Status: Acute Code(s): G30.9 - Alzheimer's disease, unspecified; F02.80 - Dementia in other diseases classified elsewhere, unspecified severity, without behavioral disturbance, psychotic disturbance, mood disturbance, and anxiety Plan Elderly female with a past history of Alzheimer's, recently in a subacute rehab due to subdural hematoma referred for exacerbation of agitation. The patient is a very poor historian unable to provide any details still very agitated. Plan 03/20 continue tx. will check ammonia and depakote level on 03/22/24 at 7am. 03/21: continue current management and treatment plan. check labs tomorrow. 03/22: Continue current management and treatment plan. Check Depakote level and ammonia on 03/23. 03/23 increase trazodone up to 25 p.o. t.i.d. to target anxiety. 03/24 keep same treatment. 03/25 keep same treatment 03/26 keep same treatment 03/27 trazodone will be lowered to 12.5 p.o. t.i.d. 03/29/24 Increase lorazepam 0.5 t.i.d. p.r.n. 03/30 keep same treatment. 03/31 keep same treatment 04/01 keep same treatment 04/02 keep same treatment 04/03 Will schedule trazodone 50mg po qhs (slept only 2 hrs.), increase olanzapine 2.5mg po TID. 04/04 more redirectable from changes of meds yesterday- 04/05- CTP 04/06- continue plan of care 04/07 continue same treatment 04/08 keep same treatment 04/09 keep same treatment 04/10 paperwork for information of healthcare proxy was done. 04/11 continue current plans and regimen 04/12: Continue current regimen and plans. 04/13: Continue current regimen and plans 04/14 continue same treatment 04/15 continue same treatment 04/16 continue same treatment 04/17 today we have the court hearing for affirmation of healthcare proxy. 04/18-04/19 continue tx plan -labs drawn and pt with DIANA and mild hyponatremia; -consult placed; encouraging fluid 04/20 keep same treatment 04/21 keep same treatment. 04/22 she is slightly over-sedated so we are changing Zyprexa to 2.5 p.o. b.i.d.. Blood work came back with better creatinine. 04/23 keep same treatment. 04/24 keep same treatment, waiting for placement. 04/25: no change in presentation. continue current mgmt. 04/26: orthostatic hypotension, fell last night. remains on 1:1. encourage fluids, continue current mgmt. 04/27 keep same treatment 04/28 keep same treatment 04/29 keep same treatment 04/30 continue tx. 05/01 continue tx. 05/02 noted decrease in H&H, RN had reported blood in stool, ordered occult blood test x 3, started on PPI may need GI consult. 05/03 continue current tx. pending GI consult. 05/04 continue tx. repeat H&H improved. 05/05 continue tx. Reason for continued inpatient stay Substantial Risk for: inability to function Time Spent With Patient Time: Total time managing care of this patient today ____ minutes.
[2024-05-05 20:00] VITALS: BP 137/61; PULSE 71; RESP 15; TEMP 36.8; O2SAT 95
[2024-05-05] MEDS: Donepezil HCl 5 MG TABLET PO (20:57)
[2024-05-05] MEDS: traZODone HCL 50 MG TABLET PO (20:58)
[2024-05-06] MEDS: Omeprazole 20 MG CAPSULE.DR PO (06:19)
[2024-05-06] MEDS: Levothyroxine Sodium 75 MCG TABLET PO (06:19)
[2024-05-06 07:50] VITALS: BP 147/63; PULSE 64; RESP 18; TEMP 36.7; O2SAT 97
[2024-05-06] MEDS: Atorvastatin Calcium 20 MG TABLET PO (07:58)
[2024-05-06] MEDS: oxyBUTYnin chloride ER 5 MG TAB.ER.24 15 MG PO (07:58)
[2024-05-06] MEDS: OLANZapine 2.5 MG TABLET PO ×2 (07:59→21:35)
[2024-05-06] MEDS: Divalproex Sodium Sprinkles 125 MG CAP.DR.SPR 250 MG PO ×3 (07:59→21:34)
[2024-05-06] MEDS: Loratadine 10 MG TABLET PO (07:59)
--- NOTE | 2024-05-06 16:49 | HO.PSYCHPN ---
Subjective Subjective Date of Service: 05/06/24 Reason For Visit: combative behaviors Interim History: Pt slept through the night. She is taking medications as prescribed. repeat H&H improved, no risk of ongoing bleed. She is less impulsive, no aggression. Not oriented to situation, month, or year. She continues on 1 to 1 risk for fall. VS stable. Review of Systems Review of Systems none currently Yes all other systems are reviewed and are negative and Unobtainable due to mental status Constitutional: Reports no additional constitutional complaints, Denies chills, Denies fever(s) and Denies night sweats Eyes: Reports no additional eye complaints, Denies blurry vision, Denies change in vision, Denies diplopia, Denies eye discharge, Denies loss of vision and Denies eye pain Denies dizziness Cardiovascular: Reports no additional cardiovascular complaints, Denies chest pain, Denies lightheadedness, Denies Loss of Consciousness and Denies dyspnea Respiratory: Reports no additional respiratory complaints and Denies dyspnea Gastrointestinal: Reports no additional gastrointestinal complaints, Denies abdominal pain, Denies melena, Denies hematochezia, Denies change in bowel habits and Denies change in stool character Musculoskeletal: Reports no additional musculoskeletal complaints, Denies numbness and Denies tingling Reports confusion (chronic for the patient - per her demented baseline), Denies dizziness, Denies loss of vision, Denies numbness and Denies tingling Psychiatric: Reports no additional psychiatric complaints and Reports confusion (chronic for the patient - per her demented baseline) Endocrine: Reports no additional endocrine complaints Hematologic/Lymphatic: Reports no additional hematologic/lymphatic complaints Allergic/Immunologic: Reports no additional allergic/immunologic complaints Mental Status Exam Mental Status Exam Narrative: Appearance: casually groomed, good hygiene, in NAD. [place]. ambulating with walker. Behavior: calm Psychomotor: no agitation or retardation noted Speech: mumbles, some difficulty enunciation, soft tone TP: goal oriented- wanting to go home. confabulation TC: wanting to go home Mood: good Affect:calm, congruent SI: none HI: none VH/AH: no overt signs Delusions: no overt delusional content reported but confabulates. Insight/judgment: impaired x 2 Memory/cog: alert, oriented only to self, not to place, month, year nor situation. Diagnostics Vital Signs (24Hr): Vital Signs - 24 hr 05/05/24 20:00 05/06/24 07:50 Temperature 98.2 F 98.0 F Pulse Rate 71 64 Respiratory Rate 15 18 Blood Pressure 137/61 147/63 H Pulse Oximetry 95 97 Oxygen Delivery Method Room Air Room Air BMI result Body Mass Index 19.7 Labs 05/04/24 08:12 04/30/24 09:52 Imaging Radiology Impressions: ITS Impressions Chest X-Ray 04/21/24 14:43 IMPRESSION: Clear lungs. Electronically signed by: Micheal Barreto MD 04/21/2024 03:04 PM [facility] Medications Medications Current Medications Acetaminophen (Acetaminophen 325 Mg Tablet) 975 mg PO TID PRN PRN Reason: Fever Or Pain Last Admin: 04/25/24 20:19 Dose: 975 mg Al Hydroxide/Mg Hydroxide (Magnesium Hydrox/Alum Hydrox 30 Ml Oral.Susp) 30 ml PO Q6H PRN PRN Reason: Heartburn/Nausea Atorvastatin Calcium (Atorvastatin Calcium 20 Mg Tablet) 20 mg PO DAILY [facility] Last Admin: 05/06/24 07:58 Dose: 20 mg Bisacodyl (Bisacodyl 10 Mg Supp.Rect) 10 mg [place] DAILY PRN PRN Reason: Constipation Last Admin: 04/02/24 12:43 Dose: 10 mg Divalproex Sodium (Divalproex Sodium Sprinkles 125 Mg Cap.) 250 mg PO TID [facility] Last Admin: 05/06/24 14:57 Dose: 250 mg Donepezil HCl (Donepezil Hcl 5 Mg Tablet) 5 mg PO BEDTIME [facility] Last Admin: 05/05/24 20:57 Dose: 5 mg Levothyroxine Sodium (Levothyroxine Sodium 75 Mcg Tablet) 75 mcg PO DAILY@0600 [facility] Last Admin: 05/06/24 06:19 Dose: 75 mcg Loratadine (Loratadine 10 Mg Tablet) 10 mg PO DAILY [facility] Last Admin: 05/06/24 07:59 Dose: 10 mg Lorazepam (Lorazepam 0.5 Mg Tablet) 0.5 mg PO TID PRN PRN Reason: anxiety/mild agitation Last Admin: 05/03/24 23:08 Dose: 0.5 mg Magnesium Hydroxide (Milk Of Magnesia 30 Ml Oral.Susp) 30 ml PO DAILY PRN PRN Reason: Constipation Last Admin: 03/28/24 20:36 Dose: 30 ml Olanzapine (Olanzapine 5 Mg Tablet) 5 mg PO Q6H PRN PRN Reason: agitation Last Admin: 04/28/24 16:35 Dose: 5 mg Olanzapine (Olanzapine 2.5 Mg Tablet) 2.5 mg PO BID [facility] Last Admin: 05/06/24 07:59 Dose: 2.5 mg Omeprazole (Omeprazole 20 Mg Capsule.Dr) 20 mg PO DAILY@0700 [facility] Last Admin: 05/06/24 06:19 Dose: 20 mg Oxybutynin Chloride (Oxybutynin Chloride Er 5 Mg Tab.Er.24) 15 mg PO DAILY [facility] Last Admin: 05/06/24 07:58 Dose: 15 mg Trazodone HCl (Trazodone Hcl 50 Mg Tablet) 50 mg PO BEDTIME PRN PRN Reason: sleep Last Admin: 05/03/24 23:09 Dose: 50 mg Trazodone HCl (Trazodone Hcl 50 Mg Tablet) 50 mg PO BEDTIME [facility] Last Admin: 05/05/24 20:58 Dose: 50 mg Allergies Allergies Allergy/AdvReac Type Severity Reaction Status Date / Time sulfamethoxazole Allergy Unknown Verified 03/03/24 14:32 [From Sulfamethoxazole-Trimethoprim] trimethoprim Allergy Unknown Verified 03/03/24 14:32 [From Sulfamethoxazole-Trimethoprim] Assessment & Plan Assessment & Plan (1) Major neurocognitive disorder due to Alzheimer's disease, without behavioral disturbance: Status: Acute Code(s): G30.9 - Alzheimer's disease, unspecified; F02.80 - Dementia in other diseases classified elsewhere, unspecified severity, without behavioral disturbance, psychotic disturbance, mood disturbance, and anxiety Plan Elderly female with a past history of Alzheimer's, recently in a subacute rehab due to subdural hematoma referred for exacerbation of agitation. The patient is a very poor historian unable to provide any details still very agitated. Plan 03/20 continue tx. will check ammonia and depakote level on 03/22/24 at 7am. 03/21: continue current management and treatment plan. check labs tomorrow. 03/22: Continue current management and treatment plan. Check Depakote level and ammonia on 03/23. 03/23 increase trazodone up to 25 p.o. t.i.d. to target anxiety. 03/24 keep same treatment. 03/25 keep same treatment 03/26 keep same treatment 03/27 trazodone will be lowered to 12.5 p.o. t.i.d. 03/29/24 Increase lorazepam 0.5 t.i.d. p.r.n. 03/30 keep same treatment. 03/31 keep same treatment 04/01 keep same treatment 04/02 keep same treatment 04/03 Will schedule trazodone 50mg po qhs (slept only 2 hrs.), increase olanzapine 2.5mg po TID. 04/04 more redirectable from changes of meds yesterday- 04/05- CTP 04/06- continue plan of care 04/07 continue same treatment 04/08 keep same treatment 04/09 keep same treatment 04/10 paperwork for information of healthcare proxy was done. 04/11 continue current plans and regimen 04/12: Continue current regimen and plans. 04/13: Continue current regimen and plans 04/14 continue same treatment 04/15 continue same treatment 04/16 continue same treatment 04/17 today we have the court hearing for affirmation of healthcare proxy. 04/18-04/19 continue tx plan -labs drawn and pt with DIANA and mild hyponatremia; -consult placed; encouraging fluid 04/20 keep same treatment 04/21 keep same treatment. 04/22 she is slightly over-sedated so we are changing Zyprexa to 2.5 p.o. b.i.d.. Blood work came back with better creatinine. 04/23 keep same treatment. 04/24 keep same treatment, waiting for placement. 04/25: no change in presentation. continue current mgmt. 04/26: orthostatic hypotension, fell last night. remains on 1:1. encourage fluids, continue current mgmt. 04/27 keep same treatment 04/28 keep same treatment 04/29 keep same treatment 04/30 continue tx. 05/01 continue tx. 05/02 noted decrease in H&H, RN had reported blood in stool, ordered occult blood test x 3, started on PPI may need GI consult. 05/03 continue current tx. pending GI consult. 05/04 continue tx. repeat H&H improved. 05/05 continue tx. 05/06 continue tx. Reason for continued inpatient stay Substantial Risk for: inability to function Time Spent With Patient Time: Total time managing care of this patient today ____ minutes.
[2024-05-06 20:00] VITALS: BP 124/71; PULSE 72; RESP 16; TEMP 36.8; O2SAT 95
[2024-05-06] MEDS: Donepezil HCl 5 MG TABLET PO (21:35)
[2024-05-06] MEDS: traZODone HCL 50 MG TABLET PO (21:35)
[2024-05-07] MEDS: OLANZapine 5 MG TABLET PO (00:23)
[2024-05-07] MEDS: traZODone HCL 50 MG TABLET PO ×2 (00:23→20:43)
[2024-05-07] MEDS: Omeprazole 20 MG CAPSULE.DR PO (06:52)
[2024-05-07] MEDS: Levothyroxine Sodium 75 MCG TABLET PO (06:52)
[2024-05-07 07:00] VITALS: BMI 19.6
--- NOTE | 2024-05-07 10:10 | P.PNPSI_ITS ---
Subjective Subjective Date of Service: 05/07/24 Reason For Visit: combative behaviors Subjective Notes: Conditional Voluntary Healthcare Proxy: Yes Interim History: Pt seems to be doing ok no change in status Mental Status Exam Mental Status Exam Narrative: Appearance: casually groomed, good hygiene, in NAD. [place]. ambulating with walker. Behavior: calm Psychomotor: no agitation or retardation noted Speech: mumbles, some difficulty enunciation, soft tone TP: concrete TC: wanting to go home Mood: good Affect:calm, congruent SI: none HI: none VH/AH: no overt signs Delusions: no overt delusional content reported but confabulates. Insight/judgment: impaired x 2 Memory/cog: alert, oriented only to self, not to place, month, year nor situation. Diagnostics Vital Signs (24Hr): Vital Signs - 24 hr 05/06/24 20:00 Temperature 98.2 F Pulse Rate 72 Respiratory Rate 16 Blood Pressure 124/71 Pulse Oximetry 95 Oxygen Delivery Method Room Air BMI result Body Mass Index 19.7 Labs 05/04/24 08:12 04/30/24 09:52 Imaging Radiology Impressions: ITS Impressions Chest X-Ray 04/21/24 14:43 IMPRESSION: Clear lungs. Electronically signed by: Micheal Barreto MD 04/21/2024 03:04 PM [facility] Medications Medications Current Medications Acetaminophen (Acetaminophen 325 Mg Tablet) 975 mg PO TID PRN PRN Reason: Fever Or Pain Last Admin: 04/25/24 20:19 Dose: 975 mg Al Hydroxide/Mg Hydroxide (Magnesium Hydrox/Alum Hydrox 30 Ml Oral.Susp) 30 ml PO Q6H PRN PRN Reason: Heartburn/Nausea Atorvastatin Calcium (Atorvastatin Calcium 20 Mg Tablet) 20 mg PO DAILY [facility] Last Admin: 05/06/24 07:58 Dose: 20 mg Bisacodyl (Bisacodyl 10 Mg Supp.Rect) 10 mg [place] DAILY PRN PRN Reason: Constipation Last Admin: 04/02/24 12:43 Dose: 10 mg Divalproex Sodium (Divalproex Sodium Sprinkles 125 Mg Cap.) 250 mg PO TID [facility] Last Admin: 05/06/24 21:34 Dose: 250 mg Donepezil HCl (Donepezil Hcl 5 Mg Tablet) 5 mg PO BEDTIME [facility] Last Admin: 05/06/24 21:35 Dose: 5 mg Levothyroxine Sodium (Levothyroxine Sodium 75 Mcg Tablet) 75 mcg PO DAILY@0600 [facility] Last Admin: 05/07/24 06:52 Dose: 75 mcg Loratadine (Loratadine 10 Mg Tablet) 10 mg PO DAILY [facility] Last Admin: 05/06/24 07:59 Dose: 10 mg Lorazepam (Lorazepam 0.5 Mg Tablet) 0.5 mg PO TID PRN PRN Reason: anxiety/mild agitation Last Admin: 05/03/24 23:08 Dose: 0.5 mg Magnesium Hydroxide (Milk Of Magnesia 30 Ml Oral.Susp) 30 ml PO DAILY PRN PRN Reason: Constipation Last Admin: 03/28/24 20:36 Dose: 30 ml Olanzapine (Olanzapine 5 Mg Tablet) 5 mg PO Q6H PRN PRN Reason: agitation Last Admin: 05/07/24 00:23 Dose: 5 mg Olanzapine (Olanzapine 2.5 Mg Tablet) 2.5 mg PO BID [facility] Last Admin: 05/06/24 21:35 Dose: 2.5 mg Omeprazole (Omeprazole 20 Mg Capsule.Dr) 20 mg PO DAILY@0700 [facility] Last Admin: 05/07/24 06:52 Dose: 20 mg Oxybutynin Chloride (Oxybutynin Chloride Er 5 Mg Tab.Er.24) 15 mg PO DAILY [facility] Last Admin: 05/06/24 07:58 Dose: 15 mg Trazodone HCl (Trazodone Hcl 50 Mg Tablet) 50 mg PO BEDTIME PRN PRN Reason: sleep Last Admin: 05/07/24 00:23 Dose: 50 mg Trazodone HCl (Trazodone Hcl 50 Mg Tablet) 50 mg PO BEDTIME [facility] Last Admin: 05/06/24 21:35 Dose: 50 mg Allergies Allergies Allergy/AdvReac Type Severity Reaction Status Date / Time sulfamethoxazole Allergy Unknown Verified 03/03/24 14:32 [From Sulfamethoxazole-Trimethoprim] trimethoprim Allergy Unknown Verified 03/03/24 14:32 [From Sulfamethoxazole-Trimethoprim] Assessment & Plan Assessment & Plan (1) Major neurocognitive disorder due to Alzheimer's disease, without behavioral disturbance: Status: Acute Code(s): G30.9 - Alzheimer's disease, unspecified; F02.80 - Dementia in other diseases classified elsewhere, unspecified severity, without behavioral disturbance, psychotic disturbance, mood disturbance, and anxiety Plan Elderly female with a past history of Alzheimer's, recently in a subacute rehab due to subdural hematoma referred for exacerbation of agitation. The patient is a very poor historian unable to provide any details still very agitated. Plan 03/20 continue tx. will check ammonia and depakote level on 03/22/24 at 7am. 03/21: continue current management and treatment plan. check labs tomorrow. 03/22: Continue current management and treatment plan. Check Depakote level and ammonia on 03/23. 03/23 increase trazodone up to 25 p.o. t.i.d. to target anxiety. 03/24 keep same treatment. 03/25 keep same treatment 03/26 keep same treatment 03/27 trazodone will be lowered to 12.5 p.o. t.i.d. 03/29/24 Increase lorazepam 0.5 t.i.d. p.r.n. 03/30 keep same treatment. 03/31 keep same treatment 04/01 keep same treatment 04/02 keep same treatment 04/03 Will schedule trazodone 50mg po qhs (slept only 2 hrs.), increase olanzapine 2.5mg po TID. 04/04 more redirectable from changes of meds yesterday- 04/05- CTP 04/06- continue plan of care 04/07 continue same treatment 04/08 keep same treatment 04/09 keep same treatment 04/10 paperwork for information of healthcare proxy was done. 04/11 continue current plans and regimen 04/12: Continue current regimen and plans. 04/13: Continue current regimen and plans 04/14 continue same treatment 04/15 continue same treatment 04/16 continue same treatment 04/17 today we have the court hearing for affirmation of healthcare proxy. 04/18-04/19 continue tx plan -labs drawn and pt with DIANA and mild hyponatremia; -consult placed; encouraging fluid 04/20 keep same treatment 04/21 keep same treatment. 04/22 she is slightly over-sedated so we are changing Zyprexa to 2.5 p.o. b.i.d.. Blood work came back with better creatinine. 04/23 keep same treatment. 04/24 keep same treatment, waiting for placement. 04/25: no change in presentation. continue current mgmt. 04/26: orthostatic hypotension, fell last night. remains on 1:1. encourage fluids, continue current mgmt. 04/27 keep same treatment 04/28 keep same treatment 04/29 keep same treatment 04/30 continue tx. 05/01 continue tx. 05/02 noted decrease in H&H, RN had reported blood in stool, ordered occult blood test x 3, started on PPI may need GI consult. 05/03 continue current tx. pending GI consult. 05/04 continue tx. repeat H&H improved. 05/05 continue tx. 05/06 continue tx. 05/07/24 Continue plan of care Reason for continued inpatient stay Substantial Risk for: inability to function, rapid decompensation and med/psych decompensation Time Spent With Patient Time: Total time managing care of this patient today ____ minutes.
[2024-05-07 10:24] VITALS: BP 147/71; PULSE 64; RESP 16; TEMP 36.6; O2SAT 95
[2024-05-07] MEDS: Divalproex Sodium Sprinkles 125 MG CAP.DR.SPR 250 MG PO ×3 (10:25→20:44)
[2024-05-07] MEDS: oxyBUTYnin chloride ER 5 MG TAB.ER.24 15 MG PO (10:25)
[2024-05-07] MEDS: Atorvastatin Calcium 20 MG TABLET PO (10:25)
[2024-05-07] MEDS: Loratadine 10 MG TABLET PO (10:25)
[2024-05-07] MEDS: OLANZapine 2.5 MG TABLET PO ×2 (10:25→20:43)
[2024-05-07 20:00] VITALS: BP 129/67; PULSE 75; RESP 16; TEMP 36.5; O2SAT 92
[2024-05-07] MEDS: Donepezil HCl 5 MG TABLET PO (20:43)
[2024-05-08] MEDS: LORazepam 0.5 MG TABLET PO (03:16)
[2024-05-08] MEDS: Omeprazole 20 MG CAPSULE.DR PO (05:45)
[2024-05-08] MEDS: Levothyroxine Sodium 75 MCG TABLET PO (05:45)
[2024-05-08 09:50] VITALS: BP 122/70; PULSE 78; RESP 16; TEMP 36.4; O2SAT 94
[2024-05-08] MEDS: Loratadine 10 MG TABLET PO (10:15)
[2024-05-08] MEDS: oxyBUTYnin chloride ER 5 MG TAB.ER.24 15 MG PO (10:15)
[2024-05-08] MEDS: Divalproex Sodium Sprinkles 125 MG CAP.DR.SPR 250 MG PO ×3 (10:15→21:00)
[2024-05-08] MEDS: Atorvastatin Calcium 20 MG TABLET PO (10:16)
[2024-05-08] MEDS: OLANZapine 2.5 MG TABLET PO ×2 (10:16→21:00)
--- NOTE | 2024-05-08 12:04 | P.PNPSI_ITS ---
Subjective Subjective Date of Service: 05/08/24 Reason For Visit: combative behaviors Subjective Notes: Conditional Voluntary Healthcare Proxy: Yes Interim History: Pt slept through the night. She is ambulating with walker, she was up for breakfast later wanted to go back to bed. Denies any physical concerns. taking medications as prescribed. no behavioral concerns. Review of Systems Review of Systems none currently Yes all other systems are reviewed and are negative and Unobtainable due to mental status Constitutional: Reports no additional constitutional complaints, Denies chills, Denies fever(s) and Denies night sweats Eyes: Reports no additional eye complaints, Denies blurry vision, Denies change in vision, Denies diplopia, Denies eye discharge, Denies loss of vision and Denies eye pain Denies dizziness Cardiovascular: Reports no additional cardiovascular complaints, Denies chest pain, Denies lightheadedness, Denies Loss of Consciousness and Denies dyspnea Respiratory: Reports no additional respiratory complaints and Denies dyspnea Gastrointestinal: Reports no additional gastrointestinal complaints, Denies abdominal pain, Denies melena, Denies hematochezia, Denies change in bowel habits and Denies change in stool character Musculoskeletal: Reports no additional musculoskeletal complaints, Denies numbness and Denies tingling Reports confusion (chronic for the patient - per her demented baseline), Denies dizziness, Denies loss of vision, Denies numbness and Denies tingling Psychiatric: Reports no additional psychiatric complaints and Reports confusion (chronic for the patient - per her demented baseline) Endocrine: Reports no additional endocrine complaints Hematologic/Lymphatic: Reports no additional hematologic/lymphatic complaints Allergic/Immunologic: Reports no additional allergic/immunologic complaints Mental Status Exam Mental Status Exam Narrative: Appearance: casually groomed, good hygiene, in NAD. [place]. ambulating with walker. Behavior: calm Psychomotor: no agitation or retardation noted Speech: mumbles, some difficulty enunciation, soft tone TP: concrete TC: wanting to go home Mood: good Affect:calm, congruent SI: none HI: none VH/AH: no overt signs Delusions: no overt delusional content reported but confabulates. Insight/judgment: impaired x 2 Memory/cog: alert, oriented only to self, not to place, month, year nor situation. Diagnostics Vital Signs (24Hr): Vital Signs - 24 hr 05/07/24 20:00 05/08/24 09:50 Temperature 97.7 F 97.6 F Pulse Rate 75 78 Respiratory Rate 16 16 Blood Pressure 129/67 122/70 Pulse Oximetry 92 94 Oxygen Delivery Method Room Air Room Air BMI result Body Mass Index 19.7 Labs 05/04/24 08:12 04/30/24 09:52 Imaging Radiology Impressions: ITS Impressions Chest X-Ray 04/21/24 14:43 IMPRESSION: Clear lungs. Electronically signed by: Micheal Barreto MD 04/21/2024 03:04 PM [facility] Medications Medications Current Medications Acetaminophen (Acetaminophen 325 Mg Tablet) 975 mg PO TID PRN PRN Reason: Fever Or Pain Last Admin: 04/25/24 20:19 Dose: 975 mg Al Hydroxide/Mg Hydroxide (Magnesium Hydrox/Alum Hydrox 30 Ml Oral.Susp) 30 ml PO Q6H PRN PRN Reason: Heartburn/Nausea Atorvastatin Calcium (Atorvastatin Calcium 20 Mg Tablet) 20 mg PO DAILY [facility] Last Admin: 05/08/24 10:16 Dose: 20 mg Bisacodyl (Bisacodyl 10 Mg Supp.Rect) 10 mg [place] DAILY PRN PRN Reason: Constipation Last Admin: 04/02/24 12:43 Dose: 10 mg Divalproex Sodium (Divalproex Sodium Sprinkles 125 Mg ) 250 mg PO TID [facility] Last Admin: 05/08/24 10:15 Dose: 250 mg Donepezil HCl (Donepezil Hcl 5 Mg Tablet) 5 mg PO BEDTIME [facility] Last Admin: 05/07/24 20:43 Dose: 5 mg Levothyroxine Sodium (Levothyroxine Sodium 75 Mcg Tablet) 75 mcg PO DAILY@0600 [facility] Last Admin: 05/08/24 05:45 Dose: 75 mcg Loratadine (Loratadine 10 Mg Tablet) 10 mg PO DAILY [facility] Last Admin: 05/08/24 10:15 Dose: 10 mg Lorazepam (Lorazepam 0.5 Mg Tablet) 0.5 mg PO TID PRN PRN Reason: anxiety/mild agitation Last Admin: 05/08/24 03:16 Dose: 0.5 mg Magnesium Hydroxide (Milk Of Magnesia 30 Ml Oral.Susp) 30 ml PO DAILY PRN PRN Reason: Constipation Last Admin: 03/28/24 20:36 Dose: 30 ml Olanzapine (Olanzapine 5 Mg Tablet) 5 mg PO Q6H PRN PRN Reason: agitation Last Admin: 05/07/24 00:23 Dose: 5 mg Olanzapine (Olanzapine 2.5 Mg Tablet) 2.5 mg PO BID [facility] Last Admin: 05/08/24 10:16 Dose: 2.5 mg Omeprazole (Omeprazole 20 Mg Capsule.Dr) 20 mg PO DAILY@0700 [facility] Last Admin: 05/08/24 05:45 Dose: 20 mg Oxybutynin Chloride (Oxybutynin Chloride Er 5 Mg Tab.Er.24) 15 mg PO DAILY [facility] Last Admin: 05/08/24 10:15 Dose: 15 mg Trazodone HCl (Trazodone Hcl 50 Mg Tablet) 50 mg PO BEDTIME PRN PRN Reason: sleep Last Admin: 05/07/24 00:23 Dose: 50 mg Trazodone HCl (Trazodone Hcl 50 Mg Tablet) 50 mg PO BEDTIME [facility] Last Admin: 05/07/24 20:43 Dose: 50 mg Allergies Allergies Allergy/AdvReac Type Severity Reaction Status Date / Time sulfamethoxazole Allergy Unknown Verified 03/03/24 14:32 [From Sulfamethoxazole-Trimethoprim] trimethoprim Allergy Unknown Verified 03/03/24 14:32 [From Sulfamethoxazole-Trimethoprim] Assessment & Plan Assessment & Plan (1) Major neurocognitive disorder due to Alzheimer's disease, without behavioral disturbance: Status: Acute Code(s): G30.9 - Alzheimer's disease, unspecified; F02.80 - Dementia in other diseases classified elsewhere, unspecified severity, without behavioral disturbance, psychotic disturbance, mood disturbance, and anxiety Plan Elderly female with a past history of Alzheimer's, recently in a subacute rehab due to subdural hematoma referred for exacerbation of agitation. The patient is a very poor historian unable to provide any details still very agitated. Plan 03/20 continue tx. will check ammonia and depakote level on 03/22/24 at 7am. 03/21: continue current management and treatment plan. check labs tomorrow. 03/22: Continue current management and treatment plan. Check Depakote level and ammonia on 03/23. 03/23 increase trazodone up to 25 p.o. t.i.d. to target anxiety. 03/24 keep same treatment. 03/25 keep same treatment 03/26 keep same treatment 03/27 trazodone will be lowered to 12.5 p.o. t.i.d. 03/29/24 Increase lorazepam 0.5 t.i.d. p.r.n. 03/30 keep same treatment. 03/31 keep same treatment 04/01 keep same treatment 04/02 keep same treatment 04/03 Will schedule trazodone 50mg po qhs (slept only 2 hrs.), increase olanzapine 2.5mg po TID. 04/04 more redirectable from changes of meds yesterday- 04/05- CTP 04/06- continue plan of care 04/07 continue same treatment 04/08 keep same treatment 04/09 keep same treatment 04/10 paperwork for information of healthcare proxy was done. 04/11 continue current plans and regimen 04/12: Continue current regimen and plans. 04/13: Continue current regimen and plans 04/14 continue same treatment 04/15 continue same treatment 04/16 continue same treatment 04/17 today we have the court hearing for affirmation of healthcare proxy. 04/18-04/19 continue tx plan -labs drawn and pt with DIANA and mild hyponatremia; -consult placed; encouraging fluid 04/20 keep same treatment 04/21 keep same treatment. 04/22 she is slightly over-sedated so we are changing Zyprexa to 2.5 p.o. b.i.d.. Blood work came back with better creatinine. 04/23 keep same treatment. 04/24 keep same treatment, waiting for placement. 04/25: no change in presentation. continue current mgmt. 04/26: orthostatic hypotension, fell last night. remains on 1:1. encourage fluids, continue current mgmt. 04/27 keep same treatment 04/28 keep same treatment 04/29 keep same treatment 04/30 continue tx. 05/01 continue tx. 05/02 noted decrease in H&H, RN had reported blood in stool, ordered occult blood test x 3, started on PPI may need GI consult. 05/03 continue current tx. pending GI consult. 05/04 continue tx. repeat H&H improved. 05/05 continue tx. 05/06 continue tx. 05/07/24 Continue plan of care 05/08 continue tx. awaiting placement. Reason for continued inpatient stay Substantial Risk for: inability to function Time Spent With Patient Time: Total time managing care of this patient today ____ minutes.
[2024-05-08 20:00] VITALS: BP 122/60; PULSE 64; RESP 16; TEMP 36.1; O2SAT 97
[2024-05-08] MEDS: Donepezil HCl 5 MG TABLET PO (21:00)
[2024-05-08] MEDS: traZODone HCL 50 MG TABLET PO (21:00)
[2024-05-09] MEDS: Omeprazole 20 MG CAPSULE.DR PO (06:15)
[2024-05-09] MEDS: Levothyroxine Sodium 75 MCG TABLET PO (06:15)
[2024-05-09 07:55] VITALS: BP 117/66; PULSE 63; RESP 18; TEMP 36.7; O2SAT 94
[2024-05-09] MEDS: OLANZapine 2.5 MG TABLET PO ×2 (08:13→20:14)
[2024-05-09] MEDS: Divalproex Sodium Sprinkles 125 MG CAP.DR.SPR 250 MG PO ×3 (08:13→20:14)
[2024-05-09] MEDS: Loratadine 10 MG TABLET PO (08:13)
[2024-05-09] MEDS: Atorvastatin Calcium 20 MG TABLET PO (08:13)
[2024-05-09] MEDS: oxyBUTYnin chloride ER 5 MG TAB.ER.24 15 MG PO (08:13)
--- NOTE | 2024-05-09 11:04 | HO.PSYCHPN ---
Subjective Subjective Date of Service: 05/09/24 Reason For Visit: combative behaviors Subjective Notes: Conditional Voluntary Interim History: Patient generally stable in the milieu uses a walker for ambulation discharge planning continues Mental Status Exam Mental Status Exam Narrative: Appearance: casually groomed ambulating with walker. Behavior: calm Psychomotor: no agitation or retardation noted Speech: mumbles, TP: concrete TC: wanting to go home Mood: good Affect:calm, congruent SI: none HI: none VH/AH: no overt signs Delusions: no overt delusional content reported but confabulates. Insight/judgment: impaired x 2 Memory/cog: alert, oriented only to self, not to place, month, year nor situation. Diagnostics Vital Signs (24Hr): Vital Signs - 24 hr 05/08/24 20:00 05/09/24 07:55 Temperature 97 F 98.1 F Pulse Rate 64 63 Respiratory Rate 16 18 Blood Pressure 122/60 117/66 Pulse Oximetry 97 94 Oxygen Delivery Method Room Air Room Air BMI result Body Mass Index 19.6 Labs 05/04/24 08:12 04/30/24 09:52 Imaging Radiology Impressions: ITS Impressions Chest X-Ray 04/21/24 14:43 IMPRESSION: Clear lungs. Electronically signed by: Micheal Barreto MD 04/21/2024 03:04 PM [facility] Medications Medications Current Medications Acetaminophen (Acetaminophen 325 Mg Tablet) 975 mg PO TID PRN PRN Reason: Fever Or Pain Last Admin: 04/25/24 20:19 Dose: 975 mg Al Hydroxide/Mg Hydroxide (Magnesium Hydrox/Alum Hydrox 30 Ml Oral.Susp) 30 ml PO Q6H PRN PRN Reason: Heartburn/Nausea Atorvastatin Calcium (Atorvastatin Calcium 20 Mg Tablet) 20 mg PO DAILY [facility] Last Admin: 05/09/24 08:13 Dose: 20 mg Bisacodyl (Bisacodyl 10 Mg Supp.Rect) 10 mg [place] DAILY PRN PRN Reason: Constipation Last Admin: 04/02/24 12:43 Dose: 10 mg Divalproex Sodium (Divalproex Sodium Sprinkles 125 Mg Cap.) 250 mg PO TID [facility] Last Admin: 05/09/24 08:13 Dose: 250 mg Donepezil HCl (Donepezil Hcl 5 Mg Tablet) 5 mg PO BEDTIME [facility] Last Admin: 05/08/24 21:00 Dose: 5 mg Levothyroxine Sodium (Levothyroxine Sodium 75 Mcg Tablet) 75 mcg PO DAILY@0600 [facility] Last Admin: 05/09/24 06:15 Dose: 75 mcg Loratadine (Loratadine 10 Mg Tablet) 10 mg PO DAILY [facility] Last Admin: 05/09/24 08:13 Dose: 10 mg Lorazepam (Lorazepam 0.5 Mg Tablet) 0.5 mg PO TID PRN PRN Reason: anxiety/mild agitation Last Admin: 05/08/24 03:16 Dose: 0.5 mg Magnesium Hydroxide (Milk Of Magnesia 30 Ml Oral.Susp) 30 ml PO DAILY PRN PRN Reason: Constipation Last Admin: 03/28/24 20:36 Dose: 30 ml Olanzapine (Olanzapine 5 Mg Tablet) 5 mg PO Q6H PRN PRN Reason: agitation Last Admin: 05/07/24 00:23 Dose: 5 mg Olanzapine (Olanzapine 2.5 Mg Tablet) 2.5 mg PO BID [facility] Last Admin: 05/09/24 08:13 Dose: 2.5 mg Omeprazole (Omeprazole 20 Mg Capsule.Dr) 20 mg PO DAILY@0700 [facility] Last Admin: 05/09/24 06:15 Dose: 20 mg Oxybutynin Chloride (Oxybutynin Chloride Er 5 Mg Tab.Er.24) 15 mg PO DAILY [facility] Last Admin: 05/09/24 08:13 Dose: 15 mg Trazodone HCl (Trazodone Hcl 50 Mg Tablet) 50 mg PO BEDTIME PRN PRN Reason: sleep Last Admin: 05/07/24 00:23 Dose: 50 mg Trazodone HCl (Trazodone Hcl 50 Mg Tablet) 50 mg PO BEDTIME [facility] Last Admin: 05/08/24 21:00 Dose: 50 mg Allergies Allergies Allergy/AdvReac Type Severity Reaction Status Date / Time sulfamethoxazole Allergy Unknown Verified 03/03/24 14:32 [From Sulfamethoxazole-Trimethoprim] trimethoprim Allergy Unknown Verified 03/03/24 14:32 [From Sulfamethoxazole-Trimethoprim] Assessment & Plan Assessment & Plan (1) Major neurocognitive disorder due to Alzheimer's disease, without behavioral disturbance: Status: Acute Code(s): G30.9 - Alzheimer's disease, unspecified; F02.80 - Dementia in other diseases classified elsewhere, unspecified severity, without behavioral disturbance, psychotic disturbance, mood disturbance, and anxiety Plan Elderly female with a past history of Alzheimer's, recently in a subacute rehab due to subdural hematoma referred for exacerbation of agitation. The patient is a very poor historian unable to provide any details still very agitated. Plan 03/20 continue tx. will check ammonia and depakote level on 03/22/24 at 7am. 03/21: continue current management and treatment plan. check labs tomorrow. 03/22: Continue current management and treatment plan. Check Depakote level and ammonia on 03/23. 03/23 increase trazodone up to 25 p.o. t.i.d. to target anxiety. 03/24 keep same treatment. 03/25 keep same treatment 03/26 keep same treatment 03/27 trazodone will be lowered to 12.5 p.o. t.i.d. 03/29/24 Increase lorazepam 0.5 t.i.d. p.r.n. 03/30 keep same treatment. 03/31 keep same treatment 04/01 keep same treatment 04/02 keep same treatment 04/03 Will schedule trazodone 50mg po qhs (slept only 2 hrs.), increase olanzapine 2.5mg po TID. 04/04 more redirectable from changes of meds yesterday- 04/05- CTP 04/06- continue plan of care 04/07 continue same treatment 04/08 keep same treatment 04/09 keep same treatment 04/10 paperwork for information of healthcare proxy was done. 04/11 continue current plans and regimen 04/12: Continue current regimen and plans. 04/13: Continue current regimen and plans 04/14 continue same treatment 04/15 continue same treatment 04/16 continue same treatment 04/17 today we have the court hearing for affirmation of healthcare proxy. 04/18-04/19 continue tx plan -labs drawn and pt with DIANA and mild hyponatremia; -consult placed; encouraging fluid 04/20 keep same treatment 04/21 keep same treatment. 04/22 she is slightly over-sedated so we are changing Zyprexa to 2.5 p.o. b.i.d.. Blood work came back with better creatinine. 04/23 keep same treatment. 04/24 keep same treatment, waiting for placement. 04/25: no change in presentation. continue current mgmt. 04/26: orthostatic hypotension, fell last night. remains on 1:1. encourage fluids, continue current mgmt. 04/27 keep same treatment 04/28 keep same treatment 04/29 keep same treatment 04/30 continue tx. 05/01 continue tx. 05/02 noted decrease in H&H, RN had reported blood in stool, ordered occult blood test x 3, started on PPI may need GI consult. 05/03 continue current tx. pending GI consult. 05/04 continue tx. repeat H&H improved. 05/05 continue tx. 05/06 continue tx. 05/07/24 Continue plan of care 05/08 continue tx. awaiting placement. 05/09/2024 Continue plan of care no major changes discharge planning Reason for continued inpatient stay Substantial Risk for: inability to function and rapid decompensation Time Spent With Patient Time: Total time managing care of this patient today ____ minutes.
[2024-05-09 20:00] VITALS: BP 135/81; PULSE 80; RESP 16; TEMP 36.1; O2SAT 94
[2024-05-09] MEDS: traZODone HCL 50 MG TABLET PO (20:14)
[2024-05-09] MEDS: Donepezil HCl 5 MG TABLET PO (20:14)
[2024-05-10] MEDS: LORazepam 0.5 MG TABLET PO (00:38)
[2024-05-10] MEDS: Levothyroxine Sodium 75 MCG TABLET PO (06:24)
[2024-05-10] MEDS: Omeprazole 20 MG CAPSULE.DR PO (06:24)
[2024-05-10 07:55] VITALS: BP 134/73; PULSE 85; RESP 18; TEMP 36.6; O2SAT 95
[2024-05-10] MEDS: oxyBUTYnin chloride ER 5 MG TAB.ER.24 15 MG PO (08:04)
[2024-05-10] MEDS: Atorvastatin Calcium 20 MG TABLET PO (08:04)
[2024-05-10] MEDS: Divalproex Sodium Sprinkles 125 MG CAP.DR.SPR 250 MG PO ×3 (08:04→20:56)
[2024-05-10] MEDS: OLANZapine 2.5 MG TABLET PO ×2 (08:04→20:57)
[2024-05-10] MEDS: Loratadine 10 MG TABLET PO (08:05)
[2024-05-10 20:00] VITALS: BP 115/64; PULSE 72; RESP 16; TEMP 37; O2SAT 94
[2024-05-10] MEDS: Donepezil HCl 5 MG TABLET PO (20:56)
[2024-05-10] MEDS: traZODone HCL 50 MG TABLET PO (20:57)
--- NOTE | 2024-05-10 23:35 | HO.PSYCHPN ---
Subjective Subjective Date of Service: 05/10/24 Reason For Visit: combative behaviors Subjective Notes: Conditional Voluntary Healthcare Proxy: Yes Interim History: Pt slept through the night. She is ambulating with walker. Denies any physical concerns. taking medications as prescribed. no behavioral concerns ongoing. Medication Compliance: Yes Mental Status Exam Mental Status Exam Narrative: Appearance: casually groomed ambulating with walker. Behavior: calm Psychomotor: no agitation or retardation noted Speech: mumbles, TP: concrete TC: wanting to go home ongoing Mood:ok Affect:calm, congruent SI: none HI: none VH/AH: no overt signs Delusions: none noted Insight/judgment: impaired x 2 Memory/cog: alert Diagnostics Vital Signs (24Hr): Vital Signs - 24 hr 05/10/24 07:55 05/10/24 20:00 Temperature 97.8 F 98.6 F Pulse Rate 85 72 Respiratory Rate 18 16 Blood Pressure 134/73 115/64 Pulse Oximetry 95 94 Oxygen Delivery Method Room Air Room Air BMI result Body Mass Index 19.6 Labs 05/04/24 08:12 04/30/24 09:52 Imaging Radiology Impressions: ITS Impressions Chest X-Ray 04/21/24 14:43 IMPRESSION: Clear lungs. Electronically signed by: Micheal Barreto MD 04/21/2024 03:04 PM [facility] Medications Medications Current Medications Acetaminophen (Acetaminophen 325 Mg Tablet) 975 mg PO TID PRN PRN Reason: Fever Or Pain Last Admin: 04/25/24 20:19 Dose: 975 mg Al Hydroxide/Mg Hydroxide (Magnesium Hydrox/Alum Hydrox 30 Ml Oral.Susp) 30 ml PO Q6H PRN PRN Reason: Heartburn/Nausea Atorvastatin Calcium (Atorvastatin Calcium 20 Mg Tablet) 20 mg PO DAILY [facility] Last Admin: 05/10/24 08:04 Dose: 20 mg Bisacodyl (Bisacodyl 10 Mg Supp.Rect) [address] DAILY PRN PRN Reason: Constipation Last Admin: 04/02/24 12:43 Dose: 10 mg Divalproex Sodium (Divalproex Sodium Sprinkles 125 Mg Cap.) 250 mg PO TID [facility] Last Admin: 05/10/24 20:56 Dose: 250 mg Donepezil HCl (Donepezil Hcl 5 Mg Tablet) 5 mg PO BEDTIME [facility] Last Admin: 05/10/24 20:56 Dose: 5 mg Levothyroxine Sodium (Levothyroxine Sodium 75 Mcg Tablet) 75 mcg PO DAILY@0600 [facility] Last Admin: 05/10/24 06:24 Dose: 75 mcg Loratadine (Loratadine 10 Mg Tablet) 10 mg PO DAILY [facility] Last Admin: 05/10/24 08:05 Dose: 10 mg Lorazepam (Lorazepam 0.5 Mg Tablet) 0.5 mg PO TID PRN PRN Reason: anxiety/mild agitation Last Admin: 05/10/24 00:38 Dose: 0.5 mg Magnesium Hydroxide (Milk Of Magnesia 30 Ml Oral.Susp) 30 ml PO DAILY PRN PRN Reason: Constipation Last Admin: 03/28/24 20:36 Dose: 30 ml Olanzapine (Olanzapine 5 Mg Tablet) 5 mg PO Q6H PRN PRN Reason: agitation Last Admin: 05/07/24 00:23 Dose: 5 mg Olanzapine (Olanzapine 2.5 Mg Tablet) 2.5 mg PO BID [facility] Last Admin: 05/10/24 20:57 Dose: 2.5 mg Omeprazole (Omeprazole 20 Mg Capsule.Dr) 20 mg PO DAILY@0700 [facility] Last Admin: 05/10/24 06:24 Dose: 20 mg Oxybutynin Chloride (Oxybutynin Chloride Er 5 Mg Tab.Er.24) 15 mg PO DAILY [facility] Last Admin: 05/10/24 08:04 Dose: 15 mg Trazodone HCl (Trazodone Hcl 50 Mg Tablet) 50 mg PO BEDTIME PRN PRN Reason: sleep Last Admin: 05/07/24 00:23 Dose: 50 mg Trazodone HCl (Trazodone Hcl 50 Mg Tablet) 50 mg PO BEDTIME [facility] Last Admin: 05/10/24 20:57 Dose: 50 mg Allergies Allergies Allergy/AdvReac Type Severity Reaction Status Date / Time sulfamethoxazole Allergy Unknown Verified 03/03/24 14:32 [From Sulfamethoxazole-Trimethoprim] trimethoprim Allergy Unknown Verified 03/03/24 14:32 [From Sulfamethoxazole-Trimethoprim] Assessment & Plan Assessment & Plan (1) Major neurocognitive disorder due to Alzheimer's disease, without behavioral disturbance: Status: Acute Code(s): G30.9 - Alzheimer's disease, unspecified; F02.80 - Dementia in other diseases classified elsewhere, unspecified severity, without behavioral disturbance, psychotic disturbance, mood disturbance, and anxiety Plan Elderly female with a past history of Alzheimer's, recently in a subacute rehab due to subdural hematoma referred for exacerbation of agitation. The patient is a very poor historian unable to provide any details still very agitated. Plan 03/20 continue tx. will check ammonia and depakote level on 03/22/24 at 7am. 03/21: continue current management and treatment plan. check labs tomorrow. 03/22: Continue current management and treatment plan. Check Depakote level and ammonia on 03/23. 03/23 increase trazodone up to 25 p.o. t.i.d. to target anxiety. 03/24 keep same treatment. 03/25 keep same treatment 03/26 keep same treatment 03/27 trazodone will be lowered to 12.5 p.o. t.i.d. 03/29/24 Increase lorazepam 0.5 t.i.d. p.r.n. 03/30 keep same treatment. 03/31 keep same treatment 04/01 keep same treatment 04/02 keep same treatment 04/03 Will schedule trazodone 50mg po qhs (slept only 2 hrs.), increase olanzapine 2.5mg po TID. 04/04 more redirectable from changes of meds yesterday- 04/05- CTP 04/06- continue plan of care 04/07 continue same treatment 04/08 keep same treatment 04/09 keep same treatment 04/10 paperwork for information of healthcare proxy was done. 04/11 continue current plans and regimen 04/12: Continue current regimen and plans. 04/13: Continue current regimen and plans 04/14 continue same treatment 04/15 continue same treatment 04/16 continue same treatment 04/17 today we have the court hearing for affirmation of healthcare proxy. 04/18-04/19 continue tx plan -labs drawn and pt with DIANA and mild hyponatremia; -consult placed; encouraging fluid 04/20 keep same treatment 04/21 keep same treatment. 04/22 she is slightly over-sedated so we are changing Zyprexa to 2.5 p.o. b.i.d.. Blood work came back with better creatinine. 04/23 keep same treatment. 04/24 keep same treatment, waiting for placement. 04/25: no change in presentation. continue current mgmt. 04/26: orthostatic hypotension, fell last night. remains on 1:1. encourage fluids, continue current mgmt. 04/27 keep same treatment 04/28 keep same treatment 04/29 keep same treatment 04/30 continue tx. 05/01 continue tx. 05/02 noted decrease in H&H, RN had reported blood in stool, ordered occult blood test x 3, started on PPI may need GI consult. 05/03 continue current tx. pending GI consult. 05/04 continue tx. repeat H&H improved. 05/05 continue tx. 05/06 continue tx. 05/07/24 Continue plan of care 05/08 continue tx. awaiting placement. 05/09/2024 Continue plan of care no major changes discharge planning 05/10/24 Cont d/c planning Reason for continued inpatient stay Substantial Risk for: inability to function and rapid decompensation Time Spent With Patient Time: Total time managing care of this patient today ____ minutes.
[2024-05-11] MEDS: Omeprazole 20 MG CAPSULE.DR PO (06:00)
[2024-05-11] MEDS: Levothyroxine Sodium 75 MCG TABLET PO (06:00)
[2024-05-11] MEDS: oxyBUTYnin chloride ER 5 MG TAB.ER.24 15 MG PO (08:32)
[2024-05-11] MEDS: Divalproex Sodium Sprinkles 125 MG CAP.DR.SPR 250 MG PO ×3 (08:32→20:16)
[2024-05-11] MEDS: OLANZapine 2.5 MG TABLET PO ×2 (08:33→20:16)
[2024-05-11] MEDS: Loratadine 10 MG TABLET PO (08:33)
[2024-05-11] MEDS: Atorvastatin Calcium 20 MG TABLET PO (08:33)
[2024-05-11 08:37] VITALS: BP 135/60; PULSE 78; RESP 18; TEMP 36.5; O2SAT 94
--- NOTE | 2024-05-11 12:14 | P.PNPSI_ITS ---
Subjective Subjective Date of Service: 05/11/24 Reason For Visit: combative behaviors Subjective Notes: Conditional Voluntary Healthcare Proxy: Yes Interim History: Pt slept through the night. She is ambulating with walker. Denies any physical concerns. taking medications as prescribed. no behavioral concerns ongoing. Review of Systems Review of Systems none currently Yes all other systems are reviewed and are negative and Unobtainable due to mental status Constitutional: Reports no additional constitutional complaints, Denies chills, Denies fever(s) and Denies night sweats Eyes: Reports no additional eye complaints, Denies blurry vision, Denies change in vision, Denies diplopia, Denies eye discharge, Denies loss of vision and Denies eye pain Denies dizziness Cardiovascular: Reports no additional cardiovascular complaints, Denies chest pain, Denies lightheadedness, Denies Loss of Consciousness and Denies dyspnea Respiratory: Reports no additional respiratory complaints and Denies dyspnea Gastrointestinal: Reports no additional gastrointestinal complaints, Denies abdominal pain, Denies melena, Denies hematochezia, Denies change in bowel habits and Denies change in stool character Musculoskeletal: Reports no additional musculoskeletal complaints, Denies numbness and Denies tingling Reports confusion (chronic for the patient - per her demented baseline), Denies dizziness, Denies loss of vision, Denies numbness and Denies tingling Psychiatric: Reports no additional psychiatric complaints and Reports confusion (chronic for the patient - per her demented baseline) Endocrine: Reports no additional endocrine complaints Hematologic/Lymphatic: Reports no additional hematologic/lymphatic complaints Allergic/Immunologic: Reports no additional allergic/immunologic complaints Mental Status Exam Mental Status Exam Narrative: Appearance: casually groomed ambulating with walker. Behavior: calm Psychomotor: no agitation or retardation noted Speech: mumbles, TP: concrete TC: wanting to go home ongoing Mood:ok Affect:calm, congruent SI: none HI: none VH/AH: no overt signs Delusions: none noted Insight/judgment: impaired x 2 Memory/cog: alert Diagnostics Vital Signs (24Hr): Vital Signs - 24 hr 05/10/24 20:00 05/11/24 08:37 Temperature 98.6 F 97.7 F Pulse Rate 72 78 Respiratory Rate 16 18 Blood Pressure 115/64 135/60 Pulse Oximetry 94 94 Oxygen Delivery Method Room Air Room Air BMI result Body Mass Index 19.6 Labs 05/04/24 08:12 04/30/24 09:52 Imaging Radiology Impressions: ITS Impressions Chest X-Ray 04/21/24 14:43 IMPRESSION: Clear lungs. Electronically signed by: Micheal Barreto MD 04/21/2024 03:04 PM [facility] [place] Medications Medications Current Medications Acetaminophen (Acetaminophen 325 Mg Tablet) 975 mg PO TID PRN PRN Reason: Fever Or Pain Last Admin: 04/25/24 20:19 Dose: 975 mg Al Hydroxide/Mg Hydroxide (Magnesium Hydrox/Alum Hydrox 30 Ml Oral.Susp) 30 ml PO Q6H PRN PRN Reason: Heartburn/Nausea Atorvastatin Calcium (Atorvastatin Calcium 20 Mg Tablet) 20 mg PO DAILY [facility] Last Admin: 05/11/24 08:33 Dose: 20 mg Bisacodyl (Bisacodyl 10 Mg Supp.Rect) 10 mg [place] DAILY PRN PRN Reason: Constipation Last Admin: 04/02/24 12:43 Dose: 10 mg Divalproex Sodium (Divalproex Sodium Sprinkles 125 Mg Spr) 250 mg PO TID [facility] Last Admin: 05/11/24 08:32 Dose: 250 mg Donepezil HCl (Donepezil Hcl 5 Mg Tablet) 5 mg PO BEDTIME [facility] Last Admin: 05/10/24 20:56 Dose: 5 mg Levothyroxine Sodium (Levothyroxine Sodium 75 Mcg Tablet) 75 mcg PO DAILY@0600 [facility] Last Admin: 05/11/24 06:00 Dose: 75 mcg Loratadine (Loratadine 10 Mg Tablet) 10 mg PO DAILY [facility] Last Admin: 05/11/24 08:33 Dose: 10 mg Lorazepam (Lorazepam 0.5 Mg Tablet) 0.5 mg PO TID PRN PRN Reason: moderate anxiety Magnesium Hydroxide (Milk Of Magnesia 30 Ml Oral.Susp) 30 ml PO DAILY PRN PRN Reason: Constipation Last Admin: 03/28/24 20:36 Dose: 30 ml Olanzapine (Olanzapine 5 Mg Tablet) 5 mg PO Q6H PRN PRN Reason: agitation Last Admin: 05/07/24 00:23 Dose: 5 mg Olanzapine (Olanzapine 2.5 Mg Tablet) 2.5 mg PO BID [facility] Last Admin: 05/11/24 08:33 Dose: 2.5 mg Omeprazole (Omeprazole 20 Mg Capsule.) 20 mg PO DAILY@0700 [facility] Last Admin: 05/11/24 06:00 Dose: 20 mg Oxybutynin Chloride (Oxybutynin Chloride Er 5 Mg Tab.Er.24) 15 mg PO DAILY [facility] Last Admin: 05/11/24 08:32 Dose: 15 mg Trazodone HCl (Trazodone Hcl 50 Mg Tablet) 50 mg PO BEDTIME PRN PRN Reason: sleep Last Admin: 05/07/24 00:23 Dose: 50 mg Trazodone HCl (Trazodone Hcl 50 Mg Tablet) 50 mg PO BEDTIME [facility] Last Admin: 05/10/24 20:57 Dose: 50 mg Allergies Allergies Allergy/AdvReac Type Severity Reaction Status Date / Time sulfamethoxazole Allergy Unknown Verified 03/03/24 14:32 [From Sulfamethoxazole-Trimethoprim] trimethoprim Allergy Unknown Verified 03/03/24 14:32 [From Sulfamethoxazole-Trimethoprim] Assessment & Plan Assessment & Plan (1) Major neurocognitive disorder due to Alzheimer's disease, without behavioral disturbance: Status: Acute Code(s): G30.9 - Alzheimer's disease, unspecified; F02.80 - Dementia in other diseases classified elsewhere, unspecified severity, without behavioral disturbance, psychotic disturbance, mood disturbance, and anxiety Plan Elderly female with a past history of Alzheimer's, recently in a subacute rehab due to subdural hematoma referred for exacerbation of agitation. The patient is a very poor historian unable to provide any details still very agitated. Plan 03/20 continue tx. will check ammonia and depakote level on 03/22/24 at 7am. 03/21: continue current management and treatment plan. check labs tomorrow. 03/22: Continue current management and treatment plan. Check Depakote level and ammonia on 03/23. 03/23 increase trazodone up to 25 p.o. t.i.d. to target anxiety. 03/24 keep same treatment. 03/25 keep same treatment 03/26 keep same treatment 03/27 trazodone will be lowered to 12.5 p.o. t.i.d. 03/29/24 Increase lorazepam 0.5 t.i.d. p.r.n. 03/30 keep same treatment. 03/31 keep same treatment 04/01 keep same treatment 04/02 keep same treatment 04/03 Will schedule trazodone 50mg po qhs (slept only 2 hrs.), increase olanzapine 2.5mg po TID. 04/04 more redirectable from changes of meds yesterday- 04/05- CTP 04/06- continue plan of care 04/07 continue same treatment 04/08 keep same treatment 04/09 keep same treatment 04/10 paperwork for information of healthcare proxy was done. 04/11 continue current plans and regimen 04/12: Continue current regimen and plans. 04/13: Continue current regimen and plans 04/14 continue same treatment 04/15 continue same treatment 04/16 continue same treatment 04/17 today we have the court hearing for affirmation of healthcare proxy. 04/18-04/19 continue tx plan -labs drawn and pt with DIANA and mild hyponatremia; -consult placed; encouraging fluid 04/20 keep same treatment 04/21 keep same treatment. 04/22 she is slightly over-sedated so we are changing Zyprexa to 2.5 p.o. b.i.d.. Blood work came back with better creatinine. 04/23 keep same treatment. 04/24 keep same treatment, waiting for placement. 04/25: no change in presentation. continue current mgmt. 04/26: orthostatic hypotension, fell last night. remains on 1:1. encourage fluids, continue current mgmt. 04/27 keep same treatment 04/28 keep same treatment 04/29 keep same treatment 04/30 continue tx. 05/01 continue tx. 05/02 noted decrease in H&H, RN had reported blood in stool, ordered occult blood test x 3, started on PPI may need GI consult. 05/03 continue current tx. pending GI consult. 05/04 continue tx. repeat H&H improved. 05/05 continue tx. 05/06 continue tx. 05/07/24 Continue plan of care 05/08 continue tx. awaiting placement. 05/09/2024 Continue plan of care no major changes discharge planning 05/11 contine tx. Reason for continued inpatient stay Substantial Risk for: inability to function Time Spent With Patient Time: Total time managing care of this patient today ____ minutes.
[2024-05-11 20:00] VITALS: BP 132/61; PULSE 93; RESP 18; TEMP 36.4; O2SAT 92
[2024-05-11] MEDS: Donepezil HCl 5 MG TABLET PO (20:16)
[2024-05-11] MEDS: traZODone HCL 50 MG TABLET PO (20:16)
[2024-05-12] MEDS: traZODone HCL 50 MG TABLET PO ×2 (00:28→20:14)
[2024-05-12] MEDS: Levothyroxine Sodium 75 MCG TABLET PO (06:56)
[2024-05-12] MEDS: Omeprazole 20 MG CAPSULE.DR PO (06:56)
[2024-05-12] MEDS: Divalproex Sodium Sprinkles 125 MG CAP.DR.SPR 250 MG PO ×3 (08:59→20:14)
[2024-05-12] MEDS: oxyBUTYnin chloride ER 5 MG TAB.ER.24 15 MG PO (08:59)
[2024-05-12] MEDS: Atorvastatin Calcium 20 MG TABLET PO (08:59)
[2024-05-12] MEDS: Loratadine 10 MG TABLET PO (08:59)
[2024-05-12 09:05] VITALS: BP 128/59; PULSE 56; RESP 18; TEMP 36.6; O2SAT 98
[2024-05-12] MEDS: OLANZapine 2.5 MG TABLET PO ×2 (10:23→20:14)
--- NOTE | 2024-05-12 19:10 | HO.PSYCHPN ---
Subjective Subjective Date of Service: 05/12/24 Reason For Visit: combative behaviors Subjective Notes: Conditional Voluntary Interim History: Pt slept through the night. She is ambulating with walker. Denies any physical concerns. taking medications as prescribed. no behavioral concerns ongoing. Review of Systems Review of Systems none currently Yes all other systems are reviewed and are negative and Unobtainable due to mental status Constitutional: Reports no additional constitutional complaints, Denies chills, Denies fever(s) and Denies night sweats Eyes: Reports no additional eye complaints, Denies blurry vision, Denies change in vision, Denies diplopia, Denies eye discharge, Denies loss of vision and Denies eye pain Denies dizziness Cardiovascular: Reports no additional cardiovascular complaints, Denies chest pain, Denies lightheadedness, Denies Loss of Consciousness and Denies dyspnea Respiratory: Reports no additional respiratory complaints and Denies dyspnea Gastrointestinal: Reports no additional gastrointestinal complaints, Denies abdominal pain, Denies melena, Denies hematochezia, Denies change in bowel habits and Denies change in stool character Musculoskeletal: Reports no additional musculoskeletal complaints, Denies numbness and Denies tingling Reports confusion (chronic for the patient - per her demented baseline), Denies dizziness, Denies loss of vision, Denies numbness and Denies tingling Psychiatric: Reports no additional psychiatric complaints and Reports confusion (chronic for the patient - per her demented baseline) Endocrine: Reports no additional endocrine complaints Hematologic/Lymphatic: Reports no additional hematologic/lymphatic complaints Allergic/Immunologic: Reports no additional allergic/immunologic complaints Mental Status Exam Mental Status Exam Narrative: Appearance: casually groomed ambulating with walker. Behavior: calm Psychomotor: no agitation or retardation noted Speech: mumbles, TP: concrete TC: wanting to go home ongoing Mood:ok Affect:calm, congruent SI: none HI: none VH/AH: no overt signs Delusions: none noted Insight/judgment: impaired x 2 Memory/cog: alert Diagnostics Vital Signs (24Hr): Vital Signs - 24 hr 05/11/24 20:00 05/12/24 09:05 Temperature 97.5 F 97.9 F Pulse Rate 93 56 Respiratory Rate 18 18 Blood Pressure 132/61 128/59 L Pulse Oximetry 92 98 Oxygen Delivery Method Room Air Room Air BMI result Body Mass Index 19.6 Labs 05/13/24 18:25 05/13/24 18:25 Imaging Radiology Impressions: ITS Impressions Chest X-Ray 04/21/24 14:43 IMPRESSION: Clear lungs. Electronically signed by: Micheal Barreto MD 04/21/2024 03:04 [place] [facility] [place] Medications Current Medications Acetaminophen (Acetaminophen 325 Mg Tablet) 975 mg PO TID PRN PRN Reason: Fever Or Pain Last Admin: 04/25/24 20:19 Dose: 975 mg Al Hydroxide/Mg Hydroxide (Magnesium Hydrox/Alum Hydrox 30 Ml Oral.Susp) 30 ml PO Q6H PRN PRN Reason: Heartburn/Nausea Atorvastatin Calcium (Atorvastatin Calcium 20 Mg Tablet) 20 mg PO DAILY [facility] Last Admin: 05/12/24 08:59 Dose: 20 mg Bisacodyl (Bisacodyl 10 Mg Supp.Rect) 10 mg [place] DAILY PRN PRN Reason: Constipation Last Admin: 04/02/24 12:43 Dose: 10 mg Divalproex Sodium (Divalproex Sodium Sprinkles 125 Mg Cap) 250 mg PO TID [facility] Last Admin: 05/12/24 15:52 Dose: 250 mg Donepezil HCl (Donepezil Hcl 5 Mg Tablet) 5 mg PO BEDTIME [facility] Last Admin: 05/11/24 20:16 Dose: 5 mg Levothyroxine Sodium (Levothyroxine Sodium 75 Mcg Tablet) 75 mcg PO DAILY@0600 [facility] Last Admin: 05/12/24 06:56 Dose: 75 mcg Loratadine (Loratadine 10 Mg Tablet) 10 mg PO DAILY [facility] Last Admin: 05/12/24 08:59 Dose: 10 mg Lorazepam (Lorazepam 0.5 Mg Tablet) 0.5 mg PO TID PRN PRN Reason: moderate anxiety Magnesium Hydroxide (Milk Of Magnesia 30 Ml Oral.Susp) 30 ml PO DAILY PRN PRN Reason: Constipation Last Admin: 03/28/24 20:36 Dose: 30 ml Olanzapine (Olanzapine 5 Mg Tablet) 5 mg PO Q6H PRN PRN Reason: agitation Last Admin: 05/07/24 00:23 Dose: 5 mg Olanzapine (Olanzapine 2.5 Mg Tablet) 2.5 mg PO BID [facility] Last Admin: 05/12/24 10:23 Dose: 2.5 mg Omeprazole (Omeprazole 20 Mg Capsule.Dr) 20 mg PO DAILY@0700 [facility] Last Admin: 05/12/24 06:56 Dose: 20 mg Oxybutynin Chloride (Oxybutynin Chloride Er 5 Mg Tab.Er.24) 15 mg PO DAILY [facility] Last Admin: 05/12/24 08:59 Dose: 15 mg Trazodone HCl (Trazodone Hcl 50 Mg Tablet) 50 mg PO BEDTIME PRN PRN Reason: sleep Last Admin: 05/12/24 00:28 Dose: 50 mg Trazodone HCl (Trazodone Hcl 50 Mg Tablet) 50 mg PO BEDTIME [facility] Last Admin: 05/11/24 20:16 Dose: 50 mg Allergies Allergies Allergy/AdvReac Type Severity Reaction Status Date / Time sulfamethoxazole Allergy Unknown Verified 03/03/24 14:32 [From Sulfamethoxazole-Trimethoprim] trimethoprim Allergy Unknown Verified 03/03/24 14:32 [From Sulfamethoxazole-Trimethoprim] Assessment & Plan Assessment & Plan (1) Major neurocognitive disorder due to Alzheimer's disease, without behavioral disturbance: Status: Acute Code(s): G30.9 - Alzheimer's disease, unspecified; F02.80 - Dementia in other diseases classified elsewhere, unspecified severity, without behavioral disturbance, psychotic disturbance, mood disturbance, and anxiety Plan Elderly female with a past history of Alzheimer's, recently in a subacute rehab due to subdural hematoma referred for exacerbation of agitation. The patient is a very poor historian unable to provide any details still very agitated. Plan 03/20 continue tx. will check ammonia and depakote level on 03/22/24 at 7am. 03/21: continue current management and treatment plan. check labs tomorrow. 03/22: Continue current management and treatment plan. Check Depakote level and ammonia on 03/23. 03/23 increase trazodone up to 25 p.o. t.i.d. to target anxiety. 03/24 keep same treatment. 03/25 keep same treatment 03/26 keep same treatment 03/27 trazodone will be lowered to 12.5 p.o. t.i.d. 03/29/24 Increase lorazepam 0.5 t.i.d. p.r.n. 03/30 keep same treatment. 03/31 keep same treatment 04/01 keep same treatment 04/02 keep same treatment 04/03 Will schedule trazodone 50mg po qhs (slept only 2 hrs.), increase olanzapine 2.5mg po TID. 04/04 more redirectable from changes of meds yesterday- 04/05- CTP 04/06- continue plan of care 04/07 continue same treatment 04/08 keep same treatment 04/09 keep same treatment 04/10 paperwork for information of healthcare proxy was done. 04/11 continue current plans and regimen 04/12: Continue current regimen and plans. 04/13: Continue current regimen and plans 04/14 continue same treatment 04/15 continue same treatment 04/16 continue same treatment 04/17 today we have the court hearing for affirmation of healthcare proxy. 04/18-04/19 continue tx plan -labs drawn and pt with DIANA and mild hyponatremia; -consult placed; encouraging fluid 04/20 keep same treatment 04/21 keep same treatment. 04/22 she is slightly over-sedated so we are changing Zyprexa to 2.5 p.o. b.i.d.. Blood work came back with better creatinine. 04/23 keep same treatment. 04/24 keep same treatment, waiting for placement. 04/25: no change in presentation. continue current mgmt. 04/26: orthostatic hypotension, fell last night. remains on 1:1. encourage fluids, continue current mgmt. 04/27 keep same treatment 04/28 keep same treatment 04/29 keep same treatment 04/30 continue tx. 05/01 continue tx. 05/02 noted decrease in H&H, RN had reported blood in stool, ordered occult blood test x 3, started on PPI may need GI consult. 05/03 continue current tx. pending GI consult. 05/04 continue tx. repeat H&H improved. 05/05 continue tx. 05/06 continue tx. 05/07/24 Continue plan of care 05/08 continue tx. awaiting placement. 05/09/2024 Continue plan of care no major changes discharge planning 05/11 contine tx. 05/12 continue tx. Reason for continued inpatient stay Substantial Risk for: inability to function Time Spent With Patient Time: Total time managing care of this patient today ____ minutes.
[2024-05-12 20:00] VITALS: BP 112/60; PULSE 71; TEMP 36.8; O2SAT 91
[2024-05-12] MEDS: Donepezil HCl 5 MG TABLET PO (20:14)
[2024-05-13] MEDS: Omeprazole 20 MG CAPSULE.DR PO (06:03)
[2024-05-13] MEDS: Levothyroxine Sodium 75 MCG TABLET PO (06:03)
[2024-05-13 08:00] VITALS: BP 127/63; PULSE 69; RESP 18; TEMP 36.4; O2SAT 98
[2024-05-13] MEDS: oxyBUTYnin chloride ER 5 MG TAB.ER.24 15 MG PO (08:08)
[2024-05-13] MEDS: Divalproex Sodium Sprinkles 125 MG CAP.DR.SPR 250 MG PO ×3 (08:08→20:38)
[2024-05-13] MEDS: Loratadine 10 MG TABLET PO (08:09)
[2024-05-13] MEDS: OLANZapine 2.5 MG TABLET PO ×2 (08:09→20:38)
[2024-05-13] MEDS: Atorvastatin Calcium 20 MG TABLET PO (08:09)
[2024-05-13 11:18] VITALS: BP 121/70; PULSE 78
[2024-05-13 11:20] VITALS: BP 137/84; PULSE 108
[2024-05-13 17:35] VITALS: BP 164/95; BP 191/84; PULSE 84; RESP 18
--- NOTE | 2024-05-13 17:46 | PC.NURSE ---
Patient sitting on the toilet. [facility] called nursing staff to say that patient leaned back and had to be held up by her for at least 30 seconds, she was also drooling a little. By the time we got there with the vitals machine patient had sat herself up and got up off of the toilet with some assist. Her B/P was 191/89 on the right upper arm and 164/95 with pulse of 84 on the left upper arm. She was unable to tell us if she was straining to have a bowel movement. Able to move all extremities within normal limits and walk to her bed. She did burp and cough after the episode. Bee Bronson NP saw patient and new orders obtained.
[2024-05-13 18:34] LABS: Eosinophils Absolute Auto 0.2 X10*3/uL (0.0-0.4); Imm Gran Abs Auto 0.01 X10*3/uL (0.00-0.03); Imm Gran Pct Auto 0.1 % (0.0-0.4); MANUAL DIFF FLAG SCAN; Mean Corpuscular Hemoglobin 30.6 pg (27.0-33.0); PLT CLUMP 1; SCAN SMEAR FLAG 1
[2024-05-13 18:36] LABS: Basophils Percent Auto 0.2 % (0-2); Eosinophils Percent Auto 1.7 % (0-4); Hematocrit 34.2 % (37.0-47.0); Hemoglobin 11.3 g/dl (12.0-16.0); Lymphocytes Absolute Auto 5.6 X10*3/uL (1.2-4.9); Lymphocytes Percent Auto 61.1 % (20-40); Mean Corpuscular Volume 92.7 fL (80.0-98.0); Mean Platelet Volume 11.9 fL (9.4-12.3); Monocytes Percent Auto 10.7 % (2-11); Neutrophils Absolute Auto 2.4 x10*3/uL (2.0-8.3); Neutrophils Percent Auto 26.2 % (45-73); Red Blood Count 3.69 X10*6/uL (4.20-5.50); Red Cell Distribution Width 13.4 % (11.0-16.0)
[2024-05-13 18:38] LABS: Ammonia 42 umol/L (13-55)
[2024-05-13 18:39] LABS: White Blood Count 9.1 X10*3/uL (4.8-10.8)
[2024-05-13 18:42] LABS: Platelet Count 131 X10*3/uL (160-400)
[2024-05-13 18:48] LABS: Alanine Aminotransferase 13 U/L (0-31); Albumin Level 3.5 g/dL (3.5-5.0); Alkaline Phosphatase 101 U/L (39-117); Anion Gap 12 (12-20); Aspartate Amino Transferase 21 U/L (5-31); Bilirubin Total 0.4 mg/dL (0.0-1.0); Blood Urea Nitrogen 16 mg/dL (9-16); Calcium 8.5 mg/dL (8.4-10.2); Carbon Dioxide 25 mmol/L (22-29); Chloride 95 mmol/L (96-108); Creatinine Clr Calc Pharmacy 35.3; Estimated Glomerular Filt Rate 48; Glucose Random 110 mg/dL (60-115); Potassium 4.7 mmol/L (3.3-5.1); Sodium 127 mmol/L (135-145); Total Protein 6.4 g/dL (6.5-8.0)
[2024-05-13 19:32] LABS: SLIDE REVIEW VERIFIED
[2024-05-13 20:00] VITALS: BP 141/60; PULSE 72; RESP 16; TEMP 36.8; O2SAT 94
[2024-05-13] MEDS: traZODone HCL 50 MG TABLET PO (20:38)
[2024-05-13] MEDS: Donepezil HCl 5 MG TABLET PO (20:38)
--- NOTE | 2024-05-13 22:11 | HO.PSYCHPN ---
Subjective Subjective Date of Service: 05/13/24 Reason For Visit: combative behaviors Subjective Notes: Conditional Voluntary Interim History: Pt slept through the night. Pt in the morning ambulating with walker, later seemed more confused. VS stable, but did order head CT, and labs and UA Medication Compliance: Yes Review of Systems Review of Systems none currently Yes all other systems are reviewed and are negative and Unobtainable due to mental status Constitutional: Reports no additional constitutional complaints, Denies chills, Denies fever(s) and Denies night sweats Eyes: Reports no additional eye complaints, Denies blurry vision, Denies change in vision, Denies diplopia, Denies eye discharge, Denies loss of vision and Denies eye pain Denies dizziness Cardiovascular: Reports no additional cardiovascular complaints, Denies chest pain, Denies lightheadedness, Denies Loss of Consciousness and Denies dyspnea Respiratory: Reports no additional respiratory complaints and Denies dyspnea Gastrointestinal: Reports no additional gastrointestinal complaints, Denies abdominal pain, Denies melena, Denies hematochezia, Denies change in bowel habits and Denies change in stool character Musculoskeletal: Reports no additional musculoskeletal complaints, Denies numbness and Denies tingling Reports confusion (chronic for the patient - per her demented baseline), Denies dizziness, Denies loss of vision, Denies numbness and Denies tingling Psychiatric: Reports no additional psychiatric complaints and Reports confusion (chronic for the patient - per her demented baseline) Endocrine: Reports no additional endocrine complaints Hematologic/Lymphatic: Reports no additional hematologic/lymphatic complaints Allergic/Immunologic: Reports no additional allergic/immunologic complaints Mental Status Exam Mental Status Exam Narrative: Appearance: casually groomed ambulating with walker. Behavior: calm Psychomotor: no agitation or retardation noted Speech: mumbles, TP: concrete TC: wanting to go home ongoing Mood:ok Affect:calm, congruent SI: none HI: none VH/AH: no overt signs Delusions: none noted Insight/judgment: impaired x 2 Memory/cog: alert Diagnostics Vital Signs (24Hr): Vital Signs - 24 hr 05/13/24 08:00 05/13/24 11:18 05/13/24 11:20 Temperature 97.6 F Pulse Rate 69 78 108 H Respiratory Rate 18 Blood Pressure 127/63 121/70 137/84 Pulse Oximetry 98 Oxygen Delivery Method Room Air 05/13/24 17:35 05/13/24 17:35 Temperature Pulse Rate 84 Respiratory Rate 18 Blood Pressure 191/84 H 164/95 H Pulse Oximetry Oxygen Delivery Method BMI result Body Mass Index 19.6 Labs 05/13/24 18:25 05/13/24 18:25 Labs: Laboratory Results - last 48 hr 05/13/24 18:25 WBC 9.1 RBC 3.69 L Hgb 11.3 L Hct 34.2 L MCV 92.7 MCH 30.6 MCHC 33.0 RDW 13.4 Plt Count 131 L MPV 11.9 Immature Gran % (Auto) 0.1 Neut % (Auto) 26.2 L Lymph % (Auto) 61.1 H [place] % (Auto) 10.7 Eos % (Auto) 1.7 Baso % (Auto) 0.2 Lymph # (Auto) 5.6 H [place] # (Auto) 1.0 Eos # (Auto) 0.2 Baso # (Auto) 0.0 Abs Immat Gran (auto) 0.01 Absolute Neuts (auto) 2.4 Absolute Nucleated RBC 0.000 Nucleated RBC % (auto) 0.0 Smear Tech's Comments VERIFIED Sodium 127 L Potassium 4.7 D Chloride 95 L Carbon Dioxide 25 Anion Gap 12 BUN 16 Creatinine 1.09 Estim Creat Clear Calc 35.3 Estimated GFR 48 Random Glucose 110 Calcium 8.5 Total Bilirubin 0.4 AST 21 ALT 13 Alkaline Phosphatase 101 Ammonia 42 Total Protein 6.4 L Albumin 3.5 Imaging Radiology Impressions: ITS Impressions Chest X-Ray 04/21/24 14:43 IMPRESSION: Clear lungs. Electronically signed by: Micheal Barreto MD 04/21/2024 03:04 [facility] Medications Medications Current Medications Acetaminophen (Acetaminophen 325 Mg Tablet) 975 mg PO TID PRN PRN Reason: Fever Or Pain Last Admin: 04/25/24 20:19 Dose: 975 mg Al Hydroxide/Mg Hydroxide (Magnesium Hydrox/Alum Hydrox 30 Ml Oral.Susp) 30 ml PO Q6H PRN PRN Reason: Heartburn/Nausea Atorvastatin Calcium (Atorvastatin Calcium 20 Mg Tablet) 20 mg PO DAILY [facility] Last Admin: 05/13/24 08:09 Dose: 20 mg Bisacodyl (Bisacodyl 10 Mg Supp.Rect) 10 mg NE DAILY PRN PRN Reason: Constipation Last Admin: 04/02/24 12:43 Dose: 10 mg Divalproex Sodium (Divalproex Sodium Sprinkles 125 Mg Cap) 250 mg PO TID [facility] Last Admin: 05/13/24 20:38 Dose: 250 mg Donepezil HCl (Donepezil Hcl 5 Mg Tablet) 5 mg PO BEDTIME [facility] Last Admin: 05/13/24 20:38 Dose: 5 mg Levothyroxine Sodium (Levothyroxine Sodium 75 Mcg Tablet) 75 mcg PO DAILY@0600 [facility] Last Admin: 05/13/24 06:03 Dose: 75 mcg Loratadine (Loratadine 10 Mg Tablet) 10 mg PO DAILY [facility] Last Admin: 05/13/24 08:09 Dose: 10 mg Lorazepam (Lorazepam 0.5 Mg Tablet) 0.5 mg PO TID PRN PRN Reason: moderate anxiety Magnesium Hydroxide (Milk Of Magnesia 30 Ml Oral.Susp) 30 ml PO DAILY PRN PRN Reason: Constipation Last Admin: 03/28/24 20:36 Dose: 30 ml Olanzapine (Olanzapine 5 Mg Tablet) 5 mg PO Q6H PRN PRN Reason: agitation Last Admin: 05/07/24 00:23 Dose: 5 mg Olanzapine (Olanzapine 2.5 Mg Tablet) 2.5 mg PO BID [facility] Last Admin: 05/13/24 20:38 Dose: 2.5 mg Omeprazole (Omeprazole 20 Mg Capsule.) 20 mg PO DAILY@0700 [facility] Last Admin: 05/13/24 06:03 Dose: 20 mg Oxybutynin Chloride (Oxybutynin Chloride Er 5 Mg Tab.Er.24) 15 mg PO DAILY [facility] Last Admin: 05/13/24 08:08 Dose: 15 mg Trazodone HCl (Trazodone Hcl 50 Mg Tablet) 50 mg PO BEDTIME PRN PRN Reason: sleep Last Admin: 05/12/24 00:28 Dose: 50 mg Trazodone HCl (Trazodone Hcl 50 Mg Tablet) 50 mg PO BEDTIME [facility] Last Admin: 05/13/24 20:38 Dose: 50 mg Allergies Allergies Allergy/AdvReac Type Severity Reaction Status Date / Time sulfamethoxazole Allergy Unknown Verified 03/03/24 14:32 [From Sulfamethoxazole-Trimethoprim] trimethoprim Allergy Unknown Verified 03/03/24 14:32 [From Sulfamethoxazole-Trimethoprim] Assessment & Plan Assessment & Plan (1) Major neurocognitive disorder due to Alzheimer's disease, without behavioral disturbance: Status: Acute Code(s): G30.9 - Alzheimer's disease, unspecified; F02.80 - Dementia in other diseases classified elsewhere, unspecified severity, without behavioral disturbance, psychotic disturbance, mood disturbance, and anxiety Plan Elderly female with a past history of Alzheimer's, recently in a subacute rehab due to subdural hematoma referred for exacerbation of agitation. The patient is a very poor historian unable to provide any details still very agitated. Plan 03/20 continue tx. will check ammonia and depakote level on 03/22/24 at 7am. 03/21: continue current management and treatment plan. check labs tomorrow. 03/22: Continue current management and treatment plan. Check Depakote level and ammonia on 03/23. 03/23 increase trazodone up to 25 p.o. t.i.d. to target anxiety. 03/24 keep same treatment. 03/25 keep same treatment 03/26 keep same treatment 03/27 trazodone will be lowered to 12.5 p.o. t.i.d. 03/29/24 Increase lorazepam 0.5 t.i.d. p.r.n. 03/30 keep same treatment. 03/31 keep same treatment 04/01 keep same treatment 04/02 keep same treatment 04/03 Will schedule trazodone 50mg po qhs (slept only 2 hrs.), increase olanzapine 2.5mg po TID. 04/04 more redirectable from changes of meds yesterday- 04/05- CTP 04/06- continue plan of care 04/07 continue same treatment 04/08 keep same treatment 04/09 keep same treatment 04/10 paperwork for information of healthcare proxy was done. 04/11 continue current plans and regimen 04/12: Continue current regimen and plans. 04/13: Continue current regimen and plans 04/14 continue same treatment 04/15 continue same treatment 04/16 continue same treatment 04/17 today we have the court hearing for affirmation of healthcare proxy. 04/18-04/19 continue tx plan -labs drawn and pt with DIANA and mild hyponatremia; -consult placed; encouraging fluid 04/20 keep same treatment 04/21 keep same treatment. 04/22 she is slightly over-sedated so we are changing Zyprexa to 2.5 p.o. b.i.d.. Blood work came back with better creatinine. 04/23 keep same treatment. 04/24 keep same treatment, waiting for placement. 04/25: no change in presentation. continue current mgmt. 04/26: orthostatic hypotension, fell last night. remains on 1:1. encourage fluids, continue current mgmt. 04/27 keep same treatment 04/28 keep same treatment 04/29 keep same treatment 04/30 continue tx. 05/01 continue tx. 05/02 noted decrease in H&H, RN had reported blood in stool, ordered occult blood test x 3, started on PPI may need GI consult. 05/03 continue current tx. pending GI consult. 05/04 continue tx. repeat H&H improved. 05/05 continue tx. 05/06 continue tx. 05/07/24 Continue plan of care 05/08 continue tx. awaiting placement. 05/09/2024 Continue plan of care no major changes discharge planning 05/11 contine tx. 05/12 continue tx. 05/13 ordered labs/UA, head CT pt presented later in the day with AMS. Reason for continued inpatient stay Substantial Risk for: inability to function Time Spent With Patient Time: Total time managing care of this patient today ____ minutes.
[2024-05-14] MEDS: Levothyroxine Sodium 75 MCG TABLET PO (06:09)
[2024-05-14] MEDS: Omeprazole 20 MG CAPSULE.DR PO (06:09)
[2024-05-14 08:00] VITALS: BP 121/60; PULSE 87; RESP 16; TEMP 36.4; O2SAT 95
[2024-05-14] MEDS: oxyBUTYnin chloride ER 5 MG TAB.ER.24 15 MG PO (08:25)
[2024-05-14] MEDS: Loratadine 10 MG TABLET PO (08:25)
[2024-05-14] MEDS: Atorvastatin Calcium 20 MG TABLET PO (08:25)
[2024-05-14] MEDS: OLANZapine 2.5 MG TABLET PO ×2 (08:26→20:41)
[2024-05-14] MEDS: Divalproex Sodium Sprinkles 125 MG CAP.DR.SPR 250 MG PO ×3 (08:26→20:41)
[2024-05-14 09:31] VITALS: BMI 20.4
--- NOTE | 2024-05-14 10:26 | P.PNPSI_ITS ---
Subjective Subjective Date of Service: 05/14/24 Reason For Visit: combative behaviors Subjective Notes: Conditional Voluntary Healthcare Proxy: Yes Interim History: Pt slept through the night. She is alert, good hygiene, no sedation. She is ambulating with walker. She is taking medications as prescribed. No behavioral concerns. She continues to one to one due to risk for falls. Review of Systems Review of Systems none currently Yes all other systems are reviewed and are negative and Unobtainable due to mental status Constitutional: Reports no additional constitutional complaints, Denies chills, Denies fever(s) and Denies night sweats Eyes: Reports no additional eye complaints, Denies blurry vision, Denies change in vision, Denies diplopia, Denies eye discharge, Denies loss of vision and Denies eye pain Denies dizziness Cardiovascular: Reports no additional cardiovascular complaints, Denies chest pain, Denies lightheadedness, Denies Loss of Consciousness and Denies dyspnea Respiratory: Reports no additional respiratory complaints and Denies dyspnea Gastrointestinal: Reports no additional gastrointestinal complaints, Denies abdominal pain, Denies melena, Denies hematochezia, Denies change in bowel habits and Denies change in stool character Musculoskeletal: Reports no additional musculoskeletal complaints, Denies numbness and Denies tingling Reports confusion (chronic for the patient - per her demented baseline), Denies dizziness, Denies loss of vision, Denies numbness and Denies tingling Psychiatric: Reports no additional psychiatric complaints and Reports confusion (chronic for the patient - per her demented baseline) Endocrine: Reports no additional endocrine complaints Hematologic/Lymphatic: Reports no additional hematologic/lymphatic complaints Allergic/Immunologic: Reports no additional allergic/immunologic complaints Mental Status Exam Mental Status Exam Narrative: Appearance: casually groomed ambulating with walker. Behavior: calm Psychomotor: no agitation or retardation noted Speech: mumbles, TP: concrete TC: wanting to go home ongoing Mood:ok Affect:calm, congruent SI: none HI: none VH/AH: no overt signs Delusions: none noted Insight/judgment: impaired x 2 Memory/cog: alert Diagnostics Vital Signs (24Hr): Vital Signs - 24 hr 05/13/24 11:18 05/13/24 11:20 05/13/24 17:35 Temperature Pulse Rate 78 108 H Respiratory Rate Blood Pressure 121/70 137/84 191/84 H Pulse Oximetry Oxygen Delivery Method 05/13/24 17:35 05/13/24 20:00 05/14/24 08:00 Temperature 98.2 F 97.5 F Pulse Rate 84 72 87 Respiratory Rate 18 16 16 Blood Pressure 164/95 H 141/60 H 121/60 Pulse Oximetry 94 95 Oxygen Delivery Method Room Air Room Air BMI result Body Mass Index 20.4 Labs 05/13/24 18:25 05/13/24 18:25 Labs: Laboratory Results - last 48 hr 05/13/24 18:25 WBC 9.1 RBC 3.69 L Hgb 11.3 L Hct 34.2 L MCV 92.7 MCH 30.6 MCHC 33.0 RDW 13.4 Plt Count 131 L MPV 11.9 Immature Gran % (Auto) 0.1 Neut % (Auto) 26.2 L Lymph % (Auto) 61.1 H [place] % (Auto) 10.7 Eos % (Auto) 1.7 Baso % (Auto) 0.2 Lymph # (Auto) 5.6 H [place] # (Auto) 1.0 Eos # (Auto) 0.2 Baso # (Auto) 0.0 Abs Immat Gran (auto) 0.01 Absolute Neuts (auto) 2.4 Absolute Nucleated RBC 0.000 Nucleated RBC % (auto) 0.0 Smear Tech's Comments VERIFIED Sodium 127 L Potassium 4.7 D Chloride 95 L Carbon Dioxide 25 Anion Gap 12 BUN 16 Creatinine 1.09 Estim Creat Clear Calc 35.3 Estimated GFR 48 Random Glucose 110 Calcium 8.5 Total Bilirubin 0.4 AST 21 ALT 13 Alkaline Phosphatase 101 Ammonia 42 Total Protein 6.4 L Albumin 3.5 Imaging Radiology Impressions: ITS Impressions Chest X-Ray 04/21/24 14:43 IMPRESSION: Clear lungs. Electronically signed by: Micheal Barreto MD 04/21/2024 03:04 PM [facility] Medications Medications Current Medications Acetaminophen (Acetaminophen 325 Mg Tablet) 975 mg PO TID PRN PRN Reason: Fever Or Pain Last Admin: 04/25/24 20:19 Dose: 975 mg Al Hydroxide/Mg Hydroxide (Magnesium Hydrox/Alum Hydrox 30 Ml Oral.Susp) 30 ml PO Q6H PRN PRN Reason: Heartburn/Nausea Atorvastatin Calcium (Atorvastatin Calcium 20 Mg Tablet) 20 mg PO DAILY [facility] Last Admin: 05/14/24 08:25 Dose: 20 mg Bisacodyl (Bisacodyl 10 Mg Supp.Rect) [address] DAILY PRN PRN Reason: Constipation Last Admin: 04/02/24 12:43 Dose: 10 mg Divalproex Sodium (Divalproex Sodium Sprinkles 125 Mg Cap.) 250 mg PO TID [facility] Last Admin: 05/14/24 08:26 Dose: 250 mg Donepezil HCl (Donepezil Hcl 5 Mg Tablet) 5 mg PO BEDTIME [facility] Last Admin: 05/13/24 20:38 Dose: 5 mg Levothyroxine Sodium (Levothyroxine Sodium 75 Mcg Tablet) 75 mcg PO DAILY@0600 [facility] Last Admin: 05/14/24 06:09 Dose: 75 mcg Loratadine (Loratadine 10 Mg Tablet) 10 mg PO DAILY [facility] Last Admin: 05/14/24 08:25 Dose: 10 mg Lorazepam (Lorazepam 0.5 Mg Tablet) 0.5 mg PO TID PRN PRN Reason: moderate anxiety Magnesium Hydroxide (Milk Of Magnesia 30 Ml Oral.Susp) 30 ml PO DAILY PRN PRN Reason: Constipation Last Admin: 03/28/24 20:36 Dose: 30 ml Olanzapine (Olanzapine 5 Mg Tablet) 5 mg PO Q6H PRN PRN Reason: agitation Last Admin: 05/07/24 00:23 Dose: 5 mg Olanzapine (Olanzapine 2.5 Mg Tablet) 2.5 mg PO BID [facility] Last Admin: 05/14/24 08:26 Dose: 2.5 mg Omeprazole (Omeprazole 20 Mg Capsule.) 20 mg PO DAILY@0700 [facility] Last Admin: 05/14/24 06:09 Dose: 20 mg Oxybutynin Chloride (Oxybutynin Chloride Er 5 Mg Tab.Er.24) 15 mg PO DAILY [facility] Last Admin: 05/14/24 08:25 Dose: 15 mg Trazodone HCl (Trazodone Hcl 50 Mg Tablet) 50 mg PO BEDTIME PRN PRN Reason: sleep Last Admin: 05/12/24 00:28 Dose: 50 mg Trazodone HCl (Trazodone Hcl 50 Mg Tablet) 50 mg PO BEDTIME [facility] Last Admin: 05/13/24 20:38 Dose: 50 mg Allergies Allergies Allergy/AdvReac Type Severity Reaction Status Date / Time sulfamethoxazole Allergy Unknown Verified 03/03/24 14:32 [From Sulfamethoxazole-Trimethoprim] trimethoprim Allergy Unknown Verified 03/03/24 14:32 [From Sulfamethoxazole-Trimethoprim] Assessment & Plan Assessment & Plan (1) Major neurocognitive disorder due to Alzheimer's disease, without behavioral disturbance: Status: Acute Code(s): G30.9 - Alzheimer's disease, unspecified; F02.80 - Dementia in other diseases classified elsewhere, unspecified severity, without behavioral disturbance, psychotic disturbance, mood disturbance, and anxiety Plan Elderly female with a past history of Alzheimer's, recently in a subacute rehab due to subdural hematoma referred for exacerbation of agitation. The patient is a very poor historian unable to provide any details still very agitated. Plan 03/20 continue tx. will check ammonia and depakote level on 03/22/24 at 7am. 03/21: continue current management and treatment plan. check labs tomorrow. 03/22: Continue current management and treatment plan. Check Depakote level and ammonia on 03/23. 03/23 increase trazodone up to 25 p.o. t.i.d. to target anxiety. 03/24 keep same treatment. 03/25 keep same treatment 03/26 keep same treatment 03/27 trazodone will be lowered to 12.5 p.o. t.i.d. 03/29/24 Increase lorazepam 0.5 t.i.d. p.r.n. 03/30 keep same treatment. 03/31 keep same treatment 04/01 keep same treatment 04/02 keep same treatment 04/03 Will schedule trazodone 50mg po qhs (slept only 2 hrs.), increase olanzapine 2.5mg po TID. 04/04 more redirectable from changes of meds yesterday- 04/05- CTP 04/06- continue plan of care 04/07 continue same treatment 04/08 keep same treatment 04/09 keep same treatment 04/10 paperwork for information of healthcare proxy was done. 04/11 continue current plans and regimen 04/12: Continue current regimen and plans. 04/13: Continue current regimen and plans 04/14 continue same treatment 04/15 continue same treatment 04/16 continue same treatment 04/17 today we have the court hearing for affirmation of healthcare proxy. 04/18-04/19 continue tx plan -labs drawn and pt with DIANA and mild hyponatremia; -consult placed; encouraging fluid 04/20 keep same treatment 04/21 keep same treatment. 04/22 she is slightly over-sedated so we are changing Zyprexa to 2.5 p.o. b.i.d.. Blood work came back with better creatinine. 04/23 keep same treatment. 04/24 keep same treatment, waiting for placement. 04/25: no change in presentation. continue current mgmt. 04/26: orthostatic hypotension, fell last night. remains on 1:1. encourage fluids, continue current mgmt. 04/27 keep same treatment 04/28 keep same treatment 04/29 keep same treatment 04/30 continue tx. 05/01 continue tx. 05/02 noted decrease in H&H, RN had reported blood in stool, ordered occult blood test x 3, started on PPI may need GI consult. 05/03 continue current tx. pending GI consult. 05/04 continue tx. repeat H&H improved. 05/05 continue tx. 05/06 continue tx. 05/07/24 Continue plan of care 05/08 continue tx. awaiting placement. 05/09/2024 Continue plan of care no major changes discharge planning 05/11 contine tx. 05/12 continue tx. 05/13 ordered labs/UA, head CT pt presented later in the day with AMS. 05/14 back to baseline mentation. labs, head CT unremarkable. Reason for continued inpatient stay Substantial Risk for: inability to function Time Spent With Patient Time: Total time managing care of this patient today ____ minutes.
[2024-05-14 20:00] VITALS: BP 140/70; PULSE 70; RESP 16; TEMP 36.2; O2SAT 95
[2024-05-14] MEDS: traZODone HCL 50 MG TABLET PO (20:41)
[2024-05-14] MEDS: Donepezil HCl 5 MG TABLET PO (20:41)
[2024-05-15] MEDS: Levothyroxine Sodium 75 MCG TABLET PO (06:01)
[2024-05-15] MEDS: Omeprazole 20 MG CAPSULE.DR PO (06:01)
[2024-05-15 08:00] VITALS: BP 145/69; PULSE 64; RESP 16; TEMP 36.1; O2SAT 98
[2024-05-15] MEDS: Atorvastatin Calcium 20 MG TABLET PO (09:00)
[2024-05-15] MEDS: oxyBUTYnin chloride ER 5 MG TAB.ER.24 15 MG PO (09:00)
[2024-05-15] MEDS: Loratadine 10 MG TABLET PO (09:00)
[2024-05-15] MEDS: Divalproex Sodium Sprinkles 125 MG CAP.DR.SPR 250 MG PO ×3 (09:01→20:27)
[2024-05-15] MEDS: OLANZapine 2.5 MG TABLET PO ×2 (09:04→20:27)
--- NOTE | 2024-05-15 11:08 | PC.NURSE ---
About 8:00 AM the patient's sitter said, when she took Jeannie to the bathroom at 3:00 AM, she coughed up some phlegm. The sitter said, she did not report it to the night nurse. Upon assessment no coughing, no SOB, no respiratory distress noted. VS: T 97.0, P 64, BP 145/69, O2sat 98% on RA. Patient consumed 100% for breakfast. Was compliant with meds. Remains on 1:1 observation for safety. Reminded the sitter to reports symptoms when they occur. Bee Tobin notified.
--- NOTE | 2024-05-15 16:29 | P.PNPSI_ITS ---
Subjective Subjective Date of Service: 05/15/24 Reason For Visit: combative behaviors Interim History: Pt slept through the night. She is alert, good hygiene, no sedation. She is ambulating with walker. She is taking medications as prescribed. No behavioral concerns. She continues to one to one due to risk for falls. Review of Systems Review of Systems none currently Yes all other systems are reviewed and are negative and Unobtainable due to mental status Constitutional: Reports no additional constitutional complaints, Denies chills, Denies fever(s) and Denies night sweats Eyes: Reports no additional eye complaints, Denies blurry vision, Denies change in vision, Denies diplopia, Denies eye discharge, Denies loss of vision and Denies eye pain Denies dizziness Cardiovascular: Reports no additional cardiovascular complaints, Denies chest pain, Denies lightheadedness, Denies Loss of Consciousness and Denies dyspnea Respiratory: Reports no additional respiratory complaints and Denies dyspnea Gastrointestinal: Reports no additional gastrointestinal complaints, Denies abdominal pain, Denies melena, Denies hematochezia, Denies change in bowel habits and Denies change in stool character Musculoskeletal: Reports no additional musculoskeletal complaints, Denies numbness and Denies tingling Reports confusion (chronic for the patient - per her demented baseline), Denies dizziness, Denies loss of vision, Denies numbness and Denies tingling Psychiatric: Reports no additional psychiatric complaints and Reports confusion (chronic for the patient - per her demented baseline) Endocrine: Reports no additional endocrine complaints Hematologic/Lymphatic: Reports no additional hematologic/lymphatic complaints Allergic/Immunologic: Reports no additional allergic/immunologic complaints Mental Status Exam Mental Status Exam Narrative: Appearance: casually groomed ambulating with walker. Behavior: calm Psychomotor: no agitation or retardation noted Speech: mumbles, TP: concrete TC: wanting to go home ongoing Mood:ok Affect:calm, congruent SI: none HI: none VH/AH: no overt signs Delusions: none noted Insight/judgment: impaired x 2 Memory/cog: alert Diagnostics Vital Signs (24Hr): Vital Signs - 24 hr 05/14/24 20:00 05/15/24 08:00 Temperature 97.1 F 97.0 F Pulse Rate 70 64 Respiratory Rate 16 16 Blood Pressure 140/70 H 145/69 H Pulse Oximetry 95 98 Oxygen Delivery Method Room Air Room Air BMI result Body Mass Index 20.4 Labs 05/13/24 18:25 05/13/24 18:25 Labs: Laboratory Results - last 48 hr 05/13/24 18:25 WBC 9.1 RBC 3.69 L Hgb 11.3 L Hct 34.2 L MCV 92.7 MCH 30.6 MCHC 33.0 RDW 13.4 Plt Count 131 L MPV 11.9 Immature Gran % (Auto) 0.1 Neut % (Auto) 26.2 L Lymph % (Auto) 61.1 H [place] % (Auto) 10.7 Eos % (Auto) 1.7 Baso % (Auto) 0.2 Lymph # (Auto) 5.6 H [place] # (Auto) 1.0 Eos # (Auto) 0.2 Baso # (Auto) 0.0 Abs Immat Gran (auto) 0.01 Absolute Neuts (auto) 2.4 Absolute Nucleated RBC 0.000 Nucleated RBC % (auto) 0.0 Smear Tech's Comments VERIFIED Sodium 127 L Potassium 4.7 D Chloride 95 L Carbon Dioxide 25 Anion Gap 12 BUN 16 Creatinine 1.09 Estim Creat Clear Calc 35.3 Estimated GFR 48 Random Glucose 110 Calcium 8.5 Total Bilirubin 0.4 AST 21 ALT 13 Alkaline Phosphatase 101 Ammonia 42 Total Protein 6.4 L Albumin 3.5 Imaging Radiology Impressions: ITS Impressions Chest X-Ray 04/21/24 14:43 IMPRESSION: Clear lungs. Electronically signed by: Micheal Barreto MD 04/21/2024 03:04 PM [facility] Medications Medications Current Medications Acetaminophen (Acetaminophen 325 Mg Tablet) 975 mg PO TID PRN PRN Reason: Fever Or Pain Last Admin: 04/25/24 20:19 Dose: 975 mg Al Hydroxide/Mg Hydroxide (Magnesium Hydrox/Alum Hydrox 30 Ml Oral.Susp) 30 ml PO Q6H PRN PRN Reason: Heartburn/Nausea Atorvastatin Calcium (Atorvastatin Calcium 20 Mg Tablet) 20 mg PO DAILY [facility] Last Admin: 05/15/24 09:00 Dose: 20 mg Bisacodyl (Bisacodyl 10 Mg Supp.Rect) 10 mg [place] DAILY PRN PRN Reason: Constipation Last Admin: 04/02/24 12:43 Dose: 10 mg Divalproex Sodium (Divalproex Sodium Sprinkles 125 Mg ) 250 mg PO TID [facility] Last Admin: 05/15/24 09:01 Dose: 250 mg Donepezil HCl (Donepezil Hcl 5 Mg Tablet) 5 mg PO BEDTIME [facility] Last Admin: 05/14/24 20:41 Dose: 5 mg Levothyroxine Sodium (Levothyroxine Sodium 75 Mcg Tablet) 75 mcg PO DAILY@0600 [facility] Last Admin: 05/15/24 06:01 Dose: 75 mcg Loratadine (Loratadine 10 Mg Tablet) 10 mg PO DAILY [facility] Last Admin: 05/15/24 09:00 Dose: 10 mg Lorazepam (Lorazepam 0.5 Mg Tablet) 0.5 mg PO TID PRN PRN Reason: moderate anxiety Magnesium Hydroxide (Milk Of Magnesia 30 Ml Oral.Susp) 30 ml PO DAILY PRN PRN Reason: Constipation Last Admin: 03/28/24 20:36 Dose: 30 ml Olanzapine (Olanzapine 5 Mg Tablet) 5 mg PO Q6H PRN PRN Reason: agitation Last Admin: 05/07/24 00:23 Dose: 5 mg Olanzapine (Olanzapine 2.5 Mg Tablet) 2.5 mg PO BID [facility] Last Admin: 05/15/24 09:04 Dose: 2.5 mg Omeprazole (Omeprazole 20 Mg Capsule.Dr) 20 mg PO DAILY@0700 [facility] Last Admin: 05/15/24 06:01 Dose: 20 mg Oxybutynin Chloride (Oxybutynin Chloride Er 5 Mg Tab.Er.24) 15 mg PO DAILY [facility] Last Admin: 05/15/24 09:00 Dose: 15 mg Trazodone HCl (Trazodone Hcl 50 Mg Tablet) 50 mg PO BEDTIME PRN PRN Reason: sleep Last Admin: 05/12/24 00:28 Dose: 50 mg Trazodone HCl (Trazodone Hcl 50 Mg Tablet) 50 mg PO BEDTIME [facility] Last Admin: 05/14/24 20:41 Dose: 50 mg Allergies Allergies Allergy/AdvReac Type Severity Reaction Status Date / Time sulfamethoxazole Allergy Unknown Verified 03/03/24 14:32 [From Sulfamethoxazole-Trimethoprim] trimethoprim Allergy Unknown Verified 03/03/24 14:32 [From Sulfamethoxazole-Trimethoprim] Assessment & Plan Assessment & Plan (1) Major neurocognitive disorder due to Alzheimer's disease, without behavioral disturbance: Status: Acute Code(s): G30.9 - Alzheimer's disease, unspecified; F02.80 - Dementia in other diseases classified elsewhere, unspecified severity, without behavioral disturbance, psychotic disturbance, mood disturbance, and anxiety Plan Elderly female with a past history of Alzheimer's, recently in a subacute rehab due to subdural hematoma referred for exacerbation of agitation. The patient is a very poor historian unable to provide any details still very agitated. Plan 03/20 continue tx. will check ammonia and depakote level on 03/22/24 at 7am. 03/21: continue current management and treatment plan. check labs tomorrow. 03/22: Continue current management and treatment plan. Check Depakote level and ammonia on 03/23. 03/23 increase trazodone up to 25 p.o. t.i.d. to target anxiety. 03/24 keep same treatment. 03/25 keep same treatment 03/26 keep same treatment 03/27 trazodone will be lowered to 12.5 p.o. t.i.d. 03/29/24 Increase lorazepam 0.5 t.i.d. p.r.n. 03/30 keep same treatment. 03/31 keep same treatment 04/01 keep same treatment 04/02 keep same treatment 04/03 Will schedule trazodone 50mg po qhs (slept only 2 hrs.), increase olanzapine 2.5mg po TID. 04/04 more redirectable from changes of meds yesterday- 04/05- CTP 04/06- continue plan of care 04/07 continue same treatment 04/08 keep same treatment 04/09 keep same treatment 04/10 paperwork for information of healthcare proxy was done. 04/11 continue current plans and regimen 04/12: Continue current regimen and plans. 04/13: Continue current regimen and plans 04/14 continue same treatment 04/15 continue same treatment 04/16 continue same treatment 04/17 today we have the court hearing for affirmation of healthcare proxy. 04/18-04/19 continue tx plan -labs drawn and pt with DIANA and mild hyponatremia; -consult placed; encouraging fluid 04/20 keep same treatment 04/21 keep same treatment. 04/22 she is slightly over-sedated so we are changing Zyprexa to 2.5 p.o. b.i.d.. Blood work came back with better creatinine. 04/23 keep same treatment. 04/24 keep same treatment, waiting for placement. 04/25: no change in presentation. continue current mgmt. 04/26: orthostatic hypotension, fell last night. remains on 1:1. encourage fluids, continue current mgmt. 04/27 keep same treatment 04/28 keep same treatment 04/29 keep same treatment 04/30 continue tx. 05/01 continue tx. 05/02 noted decrease in H&H, RN had reported blood in stool, ordered occult blood test x 3, started on PPI may need GI consult. 05/03 continue current tx. pending GI consult. 05/04 continue tx. repeat H&H improved. 05/05 continue tx. 05/06 continue tx. 05/07/24 Continue plan of care 05/08 continue tx. awaiting placement. 05/09/2024 Continue plan of care no major changes discharge planning 05/11 contine tx. 05/12 continue tx. 05/13 ordered labs/UA, head CT pt presented later in the day with AMS. 05/14 back to baseline mentation. labs, head CT unremarkable. 05/15 continue tx. awaiting placement Reason for continued inpatient stay Substantial Risk for: inability to function Time Spent With Patient Time: Total time managing care of this patient today ____ minutes.
[2024-05-15 20:00] VITALS: BP 137/81; PULSE 76; RESP 18; TEMP 35.5; O2SAT 97
[2024-05-15] MEDS: Donepezil HCl 5 MG TABLET PO (20:27)
[2024-05-15] MEDS: traZODone HCL 50 MG TABLET PO ×2 (20:27→22:56)
[2024-05-15] MEDS: LORazepam 0.5 MG TABLET PO (22:55)
[2024-05-15] MEDS: OLANZapine 5 MG TABLET PO (22:56)
[2024-05-16] MEDS: Omeprazole 20 MG CAPSULE.DR PO (06:24)
[2024-05-16] MEDS: Levothyroxine Sodium 75 MCG TABLET PO (06:24)
[2024-05-16 08:00] VITALS: BP 159/73; PULSE 69; RESP 18; TEMP 36.1; O2SAT 100
[2024-05-16] MEDS: OLANZapine 2.5 MG TABLET PO ×2 (08:30→20:32)
[2024-05-16] MEDS: Loratadine 10 MG TABLET PO (08:30)
[2024-05-16] MEDS: Divalproex Sodium Sprinkles 125 MG CAP.DR.SPR 250 MG PO ×3 (08:30→20:32)
[2024-05-16] MEDS: Atorvastatin Calcium 20 MG TABLET PO (08:30)
[2024-05-16] MEDS: oxyBUTYnin chloride ER 5 MG TAB.ER.24 15 MG PO (08:30)
--- NOTE | 2024-05-16 08:55 | HO.PSYCHPN ---
Subjective Subjective Date of Service: 05/16/24 Reason For Visit: combative behaviors Interim History: She continues to one to one due to risk for falls. Pt sleeping through the night. She is alert, good hygiene, no sedation. She is ambulating with walker. She is taking medications as prescribed. No behavioral concerns. Review of Systems Review of Systems none currently Yes all other systems are reviewed and are negative and Unobtainable due to mental status Constitutional: Reports no additional constitutional complaints, Denies chills, Denies fever(s) and Denies night sweats Eyes: Reports no additional eye complaints, Denies blurry vision, Denies change in vision, Denies diplopia, Denies eye discharge, Denies loss of vision and Denies eye pain Denies dizziness Cardiovascular: Reports no additional cardiovascular complaints, Denies chest pain, Denies lightheadedness, Denies Loss of Consciousness and Denies dyspnea Respiratory: Reports no additional respiratory complaints and Denies dyspnea Gastrointestinal: Reports no additional gastrointestinal complaints, Denies abdominal pain, Denies melena, Denies hematochezia, Denies change in bowel habits and Denies change in stool character Musculoskeletal: Reports no additional musculoskeletal complaints, Denies numbness and Denies tingling Reports confusion (chronic for the patient - per her demented baseline), Denies dizziness, Denies loss of vision, Denies numbness and Denies tingling Psychiatric: Reports no additional psychiatric complaints and Reports confusion (chronic for the patient - per her demented baseline) Endocrine: Reports no additional endocrine complaints Hematologic/Lymphatic: Reports no additional hematologic/lymphatic complaints Allergic/Immunologic: Reports no additional allergic/immunologic complaints Mental Status Exam Mental Status Exam Narrative: Appearance: casually groomed ambulating with walker. Behavior: calm Psychomotor: no agitation or retardation noted Speech: mumbles, TP: concrete TC: wanting to go home ongoing Mood:ok Affect:calm, congruent SI: none HI: none VH/AH: no overt signs Delusions: none noted Insight/judgment: impaired x 2 Memory/cog: alert Patient Appearance: Appropriate Patient Orientation: Person and Situation Level of Consciousness: Awake and Appropriate Patient Behavior: Guarded and Passive Mood Description: Withdrawn Affect Description: Constricted Patient Cognition Impaired: Yes Ability to Follow Directions: Good Speech Pattern: Clear Diagnostics Vital Signs (24Hr): Vital Signs - 24 hr 05/15/24 20:00 Temperature 96 F L Pulse Rate 76 Respiratory Rate 18 Blood Pressure 137/81 Pulse Oximetry 97 Oxygen Delivery Method Room Air BMI result Body Mass Index 20.4 Labs 05/13/24 18:25 05/13/24 18:25 Imaging Radiology Impressions: ITS Impressions Chest X-Ray 04/21/24 14:43 IMPRESSION: Clear lungs. Electronically signed by: Micheal Barreto MD 04/21/2024 03:04 PM [facility] Medications Medications Current Medications Acetaminophen (Acetaminophen 325 Mg Tablet) 975 mg PO TID PRN PRN Reason: Fever Or Pain Last Admin: 04/25/24 20:19 Dose: 975 mg Al Hydroxide/Mg Hydroxide (Magnesium Hydrox/Alum Hydrox 30 Ml Oral.Susp) 30 ml PO Q6H PRN PRN Reason: Heartburn/Nausea Atorvastatin Calcium (Atorvastatin Calcium 20 Mg Tablet) 20 mg PO DAILY [facility] Last Admin: 05/16/24 08:30 Dose: 20 mg Bisacodyl (Bisacodyl 10 Mg Supp.Rect) 10 mg [place] DAILY PRN PRN Reason: Constipation Last Admin: 04/02/24 12:43 Dose: 10 mg Divalproex Sodium (Divalproex Sodium Sprinkles 125 Mg Cap.Spr) 250 mg PO TID [facility] Last Admin: 05/16/24 08:30 Dose: 250 mg Donepezil HCl (Donepezil Hcl 5 Mg Tablet) 5 mg PO BEDTIME [facility] Last Admin: 05/15/24 20:27 Dose: 5 mg Levothyroxine Sodium (Levothyroxine Sodium 75 Mcg Tablet) 75 mcg PO DAILY@0600 [facility] Last Admin: 05/16/24 06:24 Dose: 75 mcg Loratadine (Loratadine 10 Mg Tablet) 10 mg PO DAILY [facility] Last Admin: 05/16/24 08:30 Dose: 10 mg Lorazepam (Lorazepam 0.5 Mg Tablet) 0.5 mg PO TID PRN PRN Reason: moderate anxiety Last Admin: 05/15/24 22:55 Dose: 0.5 mg Magnesium Hydroxide (Milk Of Magnesia 30 Ml Oral.Susp) 30 ml PO DAILY PRN PRN Reason: Constipation Last Admin: 03/28/24 20:36 Dose: 30 ml Olanzapine (Olanzapine 5 Mg Tablet) 5 mg PO Q6H PRN PRN Reason: agitation Last Admin: 05/15/24 22:56 Dose: 5 mg Olanzapine (Olanzapine 2.5 Mg Tablet) 2.5 mg PO BID [facility] Last Admin: 05/16/24 08:30 Dose: 2.5 mg Omeprazole (Omeprazole 20 Mg Capsule.Dr) 20 mg PO DAILY@0700 [facility] Last Admin: 05/16/24 06:24 Dose: 20 mg Oxybutynin Chloride (Oxybutynin Chloride Er 5 Mg Tab.Er.24) 15 mg PO DAILY [facility] Last Admin: 05/16/24 08:30 Dose: 15 mg Trazodone HCl (Trazodone Hcl 50 Mg Tablet) 50 mg PO BEDTIME PRN PRN Reason: sleep Last Admin: 05/15/24 22:56 Dose: 50 mg Trazodone HCl (Trazodone Hcl 50 Mg Tablet) 50 mg PO BEDTIME [facility] Last Admin: 05/15/24 20:27 Dose: 50 mg Allergies Allergies Allergy/AdvReac Type Severity Reaction Status Date / Time sulfamethoxazole Allergy Unknown Verified 03/03/24 14:32 [From Sulfamethoxazole-Trimethoprim] trimethoprim Allergy Unknown Verified 03/03/24 14:32 [From Sulfamethoxazole-Trimethoprim] Assessment & Plan Assessment & Plan (1) Major neurocognitive disorder due to Alzheimer's disease, without behavioral disturbance: Status: Acute Code(s): G30.9 - Alzheimer's disease, unspecified; F02.80 - Dementia in other diseases classified elsewhere, unspecified severity, without behavioral disturbance, psychotic disturbance, mood disturbance, and anxiety Plan Elderly female with a past history of Alzheimer's, recently in a subacute rehab due to subdural hematoma referred for exacerbation of agitation. The patient is a very poor historian unable to provide any details still very agitated. Plan 03/20 continue tx. will check ammonia and depakote level on 03/22/24 at 7am. 03/21: continue current management and treatment plan. check labs tomorrow. 03/22: Continue current management and treatment plan. Check Depakote level and ammonia on 03/23. 03/23 increase trazodone up to 25 p.o. t.i.d. to target anxiety. 03/24 keep same treatment. 03/25 keep same treatment 03/26 keep same treatment 03/27 trazodone will be lowered to 12.5 p.o. t.i.d. 03/29/24 Increase lorazepam 0.5 t.i.d. p.r.n. 03/30 keep same treatment. 03/31 keep same treatment 04/01 keep same treatment 04/02 keep same treatment 04/03 Will schedule trazodone 50mg po qhs (slept only 2 hrs.), increase olanzapine 2.5mg po TID. 04/04 more redirectable from changes of meds yesterday- 04/05- CTP 04/06- continue plan of care 04/07 continue same treatment 04/08 keep same treatment 04/09 keep same treatment 04/10 paperwork for information of healthcare proxy was done. 04/11 continue current plans and regimen 04/12: Continue current regimen and plans. 04/13: Continue current regimen and plans 04/14 continue same treatment 04/15 continue same treatment 04/16 continue same treatment 04/17 today we have the court hearing for affirmation of healthcare proxy. 04/18-04/19 continue tx plan -labs drawn and pt with DIANA and mild hyponatremia; -consult placed; encouraging fluid 04/20 keep same treatment 04/21 keep same treatment. 04/22 she is slightly over-sedated so we are changing Zyprexa to 2.5 p.o. b.i.d.. Blood work came back with better creatinine. 04/23 keep same treatment. 04/24 keep same treatment, waiting for placement. 04/25: no change in presentation. continue current mgmt. 04/26: orthostatic hypotension, fell last night. remains on 1:1. encourage fluids, continue current mgmt. 04/27 keep same treatment 04/28 keep same treatment 04/29 keep same treatment 04/30 continue tx. 05/01 continue tx. 05/02 noted decrease in H&H, RN had reported blood in stool, ordered occult blood test x 3, started on PPI may need GI consult. 05/03 continue current tx. pending GI consult. 05/04 continue tx. repeat H&H improved. 05/05 continue tx. 05/06 continue tx. 05/07/24 Continue plan of care 05/08 continue tx. awaiting placement. 05/09/2024 Continue plan of care no major changes discharge planning 05/11 contine tx. 05/12 continue tx. 05/13 ordered labs/UA, head CT pt presented later in the day with AMS. 05/14 back to baseline mentation. labs, head CT unremarkable. 05/16: continue current management and treatment plan. Reason for continued inpatient stay Substantial Risk for: inability to function and rapid decompensation Time Spent With Patient Time: Total time managing care of this patient today ____ minutes.
[2024-05-16 20:00] VITALS: BP 101/62; PULSE 68; RESP 18; TEMP 36.6; O2SAT 95
[2024-05-16] MEDS: traZODone HCL 50 MG TABLET PO ×2 (20:31)
[2024-05-16] MEDS: OLANZapine 5 MG TABLET PO (20:31)
[2024-05-16] MEDS: Donepezil HCl 5 MG TABLET PO (20:32)
[2024-05-16] MEDS: LORazepam 0.5 MG TABLET PO (20:32)
[2024-05-17] MEDS: Omeprazole 20 MG CAPSULE.DR PO (06:39)
[2024-05-17] MEDS: Levothyroxine Sodium 75 MCG TABLET PO (06:39)
[2024-05-17 08:00] VITALS: BP 156/75; PULSE 63; RESP 18; TEMP 36; O2SAT 97
[2024-05-17] MEDS: Atorvastatin Calcium 20 MG TABLET PO (08:40)
[2024-05-17] MEDS: OLANZapine 2.5 MG TABLET PO ×2 (08:40→20:39)
[2024-05-17] MEDS: Loratadine 10 MG TABLET PO (08:40)
[2024-05-17] MEDS: oxyBUTYnin chloride ER 5 MG TAB.ER.24 15 MG PO (08:40)
[2024-05-17] MEDS: Divalproex Sodium Sprinkles 125 MG CAP.DR.SPR 250 MG PO ×3 (08:40→20:38)
--- NOTE | 2024-05-17 10:49 | MHC.SL.SWA ---
05/17/24: [employer] recommends 1:1 supervision during PO with aspiration precautions (upright positioning, slow pacing, pause eating if coughing) STRAWS OK, Potato chips permitted as snack (not with meal), meds whole in puree Speech Pathologist Impression: Presbyphagia with mild to moderate oral phase delay in anterior to posterior transit of bolus, onset of mandibular fasciculation across multiple bites but WFL for bolus formation of soft, moist and easily disintegrating solids (i.e. potato chips) Risk of Aspiration Due to: Reduced Cognition Age related changes to swallow mechanism Dysphasia Diet Status: Liquid Consistency and Strategies for Safe Swallow: Liquid Intake Recommendation: Thin Liquid Intake Strategies: Small Sips Solid Food Consistency: Dietary Recommendations: Grnd/Mech Altered (NDD2) Additional Modifications to Solid Foods: *AVOID STRAWS [employer] to f/u 1x to monitor Oral Medication Intake: Whole with Puree Please contact the pharmacy regarding appropriate crushable or liquid drug formulations that are available whenever modified delivery is recommended. Compensatory Strategies and Precautions to be Taken for Safe Swallow: Sitting Upright (90 deg) Liquids from Straw Small Bites and Sips Alternate Liquids/Solids Rate of Ingestion Change Oral Check Supervision While Eating and Drinking for Safe Swallow: Total Supervision (1:1) Foods to Avoid: Mixed consistencies Swallowing Recommended Treatments: Compens. Strategy Educat. Recommendation for Speech: Inpatient Speech Therapy Comment: Pt was seen for follow-up bedside swallow evaluation. RN and 1:1 sitter consulted. Pt currently on NDD2 with thins, no straws have been given. RN noted takes only minimal amounts of fluid when sipping from cup. Pt had mild difficulty with chopped chicken, likely d/t not enough moisture. Pt requested potato chips yesterday. Pt is tolerating meds whole in puree. During this visit, pt was able to consistently follow simple commands and showed adequate awareness of the situation given trials of thins by straw sips, potato chips, and pudding. Pt fed herself with adequate pacing and oral containment. Moderate delay in initiation of oral prep phase observed consistently across length of bedside evaluation. Upon initiating bolus formation, chewing pattern WFL, with adequate bolus manipulation in anterior to posterior transit. Trigger of pharyngeal swallow WNL. Pt alternated consistencies with sips of thins by straw with efficient control and timing across oropharyngeal phases. No overt s/s of aspiration observed across multiple bites of potato chips; however, oral residuals increased as pt continued eating. One cough occurred after pt ate 3-4 oz of potato chips. Mandibular fasciculation observed after multiple bites. [employer] subtly removed remaining chips. Pt sipped thins with good clearance of oral residuals. Pt ate approximately 1.5 oz of pudding with mild anterior loss upon taking spoonful of pudding d/t increased size of bolus. Pt wiped mouth with napkin. Oral transit of puree observed to be delayed, but upon initiation, trigger of pharyngeal swallow WNL. One cough occurred with puree intake, considered to be within expectation in presence of age-related changes to swallow mechanism. [employer] provided review of findings and recommendations to RN and 1:1 reese, who observed bedside swallow evaluation. [employer] texted attending MD with updates. Frequency/Duration: M-F Daily Date Range for Service Req: Timeline to reassess: Head Housekeeper Clinican/Clinical Fellow: No Supervisory Statement: I have reviewed and agree with the student/clinical fellow's documentation: N/A Speech Language Pathologist: Kathy Messer M.S., CCC-[employer]
--- NOTE | 2024-05-17 12:05 | HO.PSYCHPN ---
Subjective Subjective Date of Service: 05/17/24 Reason For Visit: combative behaviors Interim History: She continues to one to one due to risk for falls. Pt sleeping through the night. She is alert, good hygiene, no sedation. She is ambulating with walker. She is taking medications as prescribed. No behavioral concerns. Review of Systems Review of Systems none currently Yes all other systems are reviewed and are negative and Unobtainable due to mental status Constitutional: Reports no additional constitutional complaints, Denies chills, Denies fever(s) and Denies night sweats Eyes: Reports no additional eye complaints, Denies blurry vision, Denies change in vision, Denies diplopia, Denies eye discharge, Denies loss of vision and Denies eye pain Denies dizziness Cardiovascular: Reports no additional cardiovascular complaints, Denies chest pain, Denies lightheadedness, Denies Loss of Consciousness and Denies dyspnea Respiratory: Reports no additional respiratory complaints and Denies dyspnea Gastrointestinal: Reports no additional gastrointestinal complaints, Denies abdominal pain, Denies melena, Denies hematochezia, Denies change in bowel habits and Denies change in stool character Musculoskeletal: Reports no additional musculoskeletal complaints, Denies numbness and Denies tingling Reports confusion (chronic for the patient - per her demented baseline), Denies dizziness, Denies loss of vision, Denies numbness and Denies tingling Psychiatric: Reports no additional psychiatric complaints and Reports confusion (chronic for the patient - per her demented baseline) Endocrine: Reports no additional endocrine complaints Hematologic/Lymphatic: Reports no additional hematologic/lymphatic complaints Allergic/Immunologic: Reports no additional allergic/immunologic complaints Mental Status Exam Mental Status Exam Narrative: Appearance: casually groomed ambulating with walker. Behavior: calm Psychomotor: no agitation or retardation noted Speech: mumbles, TP: concrete TC: wanting to go home ongoing Mood:ok Affect:calm, congruent SI: none HI: none VH/AH: no overt signs Delusions: none noted Insight/judgment: impaired x 2 Memory/cog: alert Patient Appearance: Appropriate Patient Orientation: Person and Situation Level of Consciousness: Awake and Appropriate Patient Behavior: Guarded and Passive Mood Description: Withdrawn Affect Description: Constricted Patient Cognition Impaired: Yes Ability to Follow Directions: Good Speech Pattern: Clear Diagnostics Vital Signs (24Hr): Vital Signs - 24 hr 05/16/24 20:00 05/17/24 08:00 Temperature 97.9 F 96.8 F Pulse Rate 68 63 Respiratory Rate 18 18 Blood Pressure 101/62 156/75 H Pulse Oximetry 95 97 Oxygen Delivery Method Room Air Room Air BMI result Body Mass Index 20.4 Labs 05/13/24 18:25 05/13/24 18:25 Imaging Radiology Impressions: ITS Impressions Chest X-Ray 04/21/24 14:43 IMPRESSION: Clear lungs. Electronically signed by: Micheal Barreto MD 04/21/2024 03:04 PM [facility] [place], [place] Medications Medications Current Medications Acetaminophen (Acetaminophen 325 Mg Tablet) 975 mg PO TID PRN PRN Reason: Fever Or Pain Last Admin: 04/25/24 20:19 Dose: 975 mg Al Hydroxide/Mg Hydroxide (Magnesium Hydrox/Alum Hydrox 30 Ml Oral.Susp) 30 ml PO Q6H PRN PRN Reason: Heartburn/Nausea Atorvastatin Calcium (Atorvastatin Calcium 20 Mg Tablet) 20 mg PO DAILY [facility] Last Admin: 05/17/24 08:40 Dose: 20 mg Bisacodyl (Bisacodyl 10 Mg Supp.Rect) 10 mg [place] DAILY PRN PRN Reason: Constipation Last Admin: 04/02/24 12:43 Dose: 10 mg Divalproex Sodium (Divalproex Sodium Sprinkles 125 Mg ) 250 mg PO TID [facility] Last Admin: 05/17/24 08:40 Dose: 250 mg Donepezil HCl (Donepezil Hcl 5 Mg Tablet) 5 mg PO BEDTIME [facility] Last Admin: 05/16/24 20:32 Dose: 5 mg Levothyroxine Sodium (Levothyroxine Sodium 75 Mcg Tablet) 75 mcg PO DAILY@0600 [facility] Last Admin: 05/17/24 06:39 Dose: 75 mcg Loratadine (Loratadine 10 Mg Tablet) 10 mg PO DAILY [facility] Last Admin: 05/17/24 08:40 Dose: 10 mg Lorazepam (Lorazepam 0.5 Mg Tablet) 0.5 mg PO TID PRN PRN Reason: Anxiety Last Admin: 05/16/24 20:32 Dose: 0.5 mg Magnesium Hydroxide (Milk Of Magnesia 30 Ml Oral.Susp) 30 ml PO DAILY PRN PRN Reason: Constipation Last Admin: 03/28/24 20:36 Dose: 30 ml Olanzapine (Olanzapine 5 Mg Tablet) 5 mg PO Q6H PRN PRN Reason: agitation Last Admin: 05/16/24 20:31 Dose: 5 mg Olanzapine (Olanzapine 2.5 Mg Tablet) 2.5 mg PO BID [facility] Last Admin: 05/17/24 08:40 Dose: 2.5 mg Omeprazole (Omeprazole 20 Mg Capsule.Dr) 20 mg PO DAILY@0700 [facility] Last Admin: 05/17/24 06:39 Dose: 20 mg Oxybutynin Chloride (Oxybutynin Chloride Er 5 Mg Tab.Er.24) 15 mg PO DAILY [facility] Last Admin: 05/17/24 08:40 Dose: 15 mg Trazodone HCl (Trazodone Hcl 50 Mg Tablet) 50 mg PO BEDTIME PRN PRN Reason: sleep Last Admin: 05/16/24 20:31 Dose: 50 mg Trazodone HCl (Trazodone Hcl 50 Mg Tablet) 50 mg PO BEDTIME [facility] Last Admin: 05/16/24 20:31 Dose: 50 mg Allergies Allergies Allergy/AdvReac Type Severity Reaction Status Date / Time sulfamethoxazole Allergy Unknown Verified 03/03/24 14:32 [From Sulfamethoxazole-Trimethoprim] trimethoprim Allergy Unknown Verified 03/03/24 14:32 [From Sulfamethoxazole-Trimethoprim] Assessment & Plan Assessment & Plan (1) Major neurocognitive disorder due to Alzheimer's disease, without behavioral disturbance: Status: Acute Code(s): G30.9 - Alzheimer's disease, unspecified; F02.80 - Dementia in other diseases classified elsewhere, unspecified severity, without behavioral disturbance, psychotic disturbance, mood disturbance, and anxiety Plan Elderly female with a past history of Alzheimer's, recently in a subacute rehab due to subdural hematoma referred for exacerbation of agitation. The patient is a very poor historian unable to provide any details still very agitated. Plan 03/20 continue tx. will check ammonia and depakote level on 03/22/24 at 7am. 03/21: continue current management and treatment plan. check labs tomorrow. 03/22: Continue current management and treatment plan. Check Depakote level and ammonia on 03/23. 03/23 increase trazodone up to 25 p.o. t.i.d. to target anxiety. 03/24 keep same treatment. 03/25 keep same treatment 03/26 keep same treatment 03/27 trazodone will be lowered to 12.5 p.o. t.i.d. 03/29/24 Increase lorazepam 0.5 t.i.d. p.r.n. 03/30 keep same treatment. 03/31 keep same treatment 04/01 keep same treatment 04/02 keep same treatment 04/03 Will schedule trazodone 50mg po qhs (slept only 2 hrs.), increase olanzapine 2.5mg po TID. 04/04 more redirectable from changes of meds yesterday- 04/05- CTP 04/06- continue plan of care 04/07 continue same treatment 04/08 keep same treatment 04/09 keep same treatment 04/10 paperwork for information of healthcare proxy was done. 04/11 continue current plans and regimen 04/12: Continue current regimen and plans. 04/13: Continue current regimen and plans 04/14 continue same treatment 04/15 continue same treatment 04/16 continue same treatment 04/17 today we have the court hearing for affirmation of healthcare proxy. 04/18-04/19 continue tx plan -labs drawn and pt with DIANA and mild hyponatremia; -consult placed; encouraging fluid 04/20 keep same treatment 04/21 keep same treatment. 04/22 she is slightly over-sedated so we are changing Zyprexa to 2.5 p.o. b.i.d.. Blood work came back with better creatinine. 04/23 keep same treatment. 04/24 keep same treatment, waiting for placement. 04/25: no change in presentation. continue current mgmt. 04/26: orthostatic hypotension, fell last night. remains on 1:1. encourage fluids, continue current mgmt. 04/27 keep same treatment 04/28 keep same treatment 04/29 keep same treatment 04/30 continue tx. 05/01 continue tx. 05/02 noted decrease in H&H, RN had reported blood in stool, ordered occult blood test x 3, started on PPI may need GI consult. 05/03 continue current tx. pending GI consult. 05/04 continue tx. repeat H&H improved. 05/05 continue tx. 05/06 continue tx. 05/07/24 Continue plan of care 05/08 continue tx. awaiting placement. 05/09/2024 Continue plan of care no major changes discharge planning 05/11 contine tx. 05/12 continue tx. 05/13 ordered labs/UA, head CT pt presented later in the day with AMS. 05/14 back to baseline mentation. labs, head CT unremarkable. 05/16: continue current management and treatment plan. 05/17: continue current management and treatment plan. Reason for continued inpatient stay Substantial Risk for: inability to function and rapid decompensation Time Spent With Patient Time: Total time managing care of this patient today ____ minutes.
[2024-05-17 20:00] VITALS: BP 140/66; PULSE 68; RESP 16; TEMP 36.8; O2SAT 94
[2024-05-17] MEDS: traZODone HCL 50 MG TABLET PO (20:38)
[2024-05-17] MEDS: Donepezil HCl 5 MG TABLET PO (20:39)
[2024-05-18] MEDS: Levothyroxine Sodium 75 MCG TABLET PO (06:34)
[2024-05-18] MEDS: Omeprazole 20 MG CAPSULE.DR PO (06:34)
[2024-05-18 09:26] VITALS: BP 127/62; PULSE 74; RESP 16; TEMP 36.6; O2SAT 96
[2024-05-18] MEDS: oxyBUTYnin chloride ER 5 MG TAB.ER.24 15 MG PO (10:44)
[2024-05-18] MEDS: Divalproex Sodium Sprinkles 125 MG CAP.DR.SPR 250 MG PO ×3 (10:44→20:07)
[2024-05-18] MEDS: Atorvastatin Calcium 20 MG TABLET PO (10:44)
[2024-05-18] MEDS: Loratadine 10 MG TABLET PO (10:45)
[2024-05-18] MEDS: OLANZapine 2.5 MG TABLET PO ×2 (10:45→20:07)
[2024-05-18] MEDS: LORazepam 0.5 MG TABLET PO (10:48)
--- NOTE | 2024-05-18 12:03 | MHC.SLORD ---
Speech Language Pathology Order Status: Pt sleeping when BOARDINGHOUSE KEEPER arrived. agricultural mechanic reported no concerns with pt PO tolerance. BOARDINGHOUSE KEEPER to continue following as indicated.
--- NOTE | 2024-05-18 16:29 | P.PNPSI_ITS ---
Subjective Subjective Date of Service: 05/18/24 Reason For Visit: combative behaviors Subjective Notes: Conditional Voluntary Interim History: The nursing staff reported the patient has been pleasant, eating. Diet on one-to-one slept well. The social media marketing specialist reported that she is waiting for placement. On interview the patient is pleasantly confused demented. Mental Status Exam Mental Status Exam Patient Appearance: Well Grooomed and Appropriate Patient Orientation: Person and Situation Level of Consciousness: Awake and Appropriate Patient Behavior: Guarded and Passive Mood Description: Withdrawn Affect Description: Constricted Patient Cognition Impaired: Yes Ability to Follow Directions: Good Speech Pattern: Clear Hallucinations: None Delusions: Not Present Thought Process: Distracted and Slowed Thinking Thought Content: positive for [place] and positive for Poverty of Content Judgement: Fair Diagnostics Vital Signs (24Hr): Vital Signs - 24 hr 05/17/24 20:00 05/18/24 09:26 Temperature 98.2 F 97.9 F Pulse Rate 68 74 Respiratory Rate 16 16 Blood Pressure 140/66 H 127/62 Pulse Oximetry 94 96 Oxygen Delivery Method Room Air Room Air BMI result Body Mass Index 20.4 Labs 05/13/24 18:25 05/13/24 18:25 Imaging Radiology Impressions: ITS Impressions Chest X-Ray 04/21/24 14:43 IMPRESSION: Clear lungs. Electronically signed by: Micheal Barreto MD 04/21/2024 03:04 PM [facility] Medications Medications Current Medications Acetaminophen (Acetaminophen 325 Mg Tablet) 975 mg PO TID PRN PRN Reason: Fever Or Pain Last Admin: 04/25/24 20:19 Dose: 975 mg Al Hydroxide/Mg Hydroxide (Magnesium Hydrox/Alum Hydrox 30 Ml Oral.Susp) 30 ml PO Q6H PRN PRN Reason: Heartburn/Nausea Atorvastatin Calcium (Atorvastatin Calcium 20 Mg Tablet) 20 mg PO DAILY [facility] Last Admin: 05/18/24 10:44 Dose: 20 mg Bisacodyl (Bisacodyl 10 Mg Supp.Rect) 10 mg [place] DAILY PRN PRN Reason: Constipation Last Admin: 04/02/24 12:43 Dose: 10 mg Divalproex Sodium (Divalproex Sodium Sprinkles 125 Mg Cap.) 250 mg PO TID [facility] Last Admin: 05/18/24 10:44 Dose: 250 mg Donepezil HCl (Donepezil Hcl 5 Mg Tablet) 5 mg PO BEDTIME [facility] Last Admin: 05/17/24 20:39 Dose: 5 mg Levothyroxine Sodium (Levothyroxine Sodium 75 Mcg Tablet) 75 mcg PO DAILY@0600 [facility] Last Admin: 05/18/24 06:34 Dose: 75 mcg Loratadine (Loratadine 10 Mg Tablet) 10 mg PO DAILY [facility] Last Admin: 05/18/24 10:45 Dose: 10 mg Lorazepam (Lorazepam 0.5 Mg Tablet) 0.5 mg PO TID PRN PRN Reason: Anxiety Last Admin: 05/18/24 10:48 Dose: 0.5 mg Magnesium Hydroxide (Milk Of Magnesia 30 Ml Oral.Susp) 30 ml PO DAILY PRN PRN Reason: Constipation Last Admin: 03/28/24 20:36 Dose: 30 ml Olanzapine (Olanzapine 5 Mg Tablet) 5 mg PO Q6H PRN PRN Reason: agitation Last Admin: 05/16/24 20:31 Dose: 5 mg Olanzapine (Olanzapine 2.5 Mg Tablet) 2.5 mg PO BID [facility] Last Admin: 05/18/24 10:45 Dose: 2.5 mg Omeprazole (Omeprazole 20 Mg Capsule.Dr) 20 mg PO DAILY@0700 [facility] Last Admin: 05/18/24 06:34 Dose: 20 mg Oxybutynin Chloride (Oxybutynin Chloride Er 5 Mg Tab.Er.24) 15 mg PO DAILY [facility] Last Admin: 05/18/24 10:44 Dose: 15 mg Trazodone HCl (Trazodone Hcl 50 Mg Tablet) 50 mg PO BEDTIME PRN PRN Reason: sleep Last Admin: 05/16/24 20:31 Dose: 50 mg Trazodone HCl (Trazodone Hcl 50 Mg Tablet) 50 mg PO BEDTIME [facility] Last Admin: 05/17/24 20:38 Dose: 50 mg Allergies Allergies Allergy/AdvReac Type Severity Reaction Status Date / Time sulfamethoxazole Allergy Unknown Verified 03/03/24 14:32 [From Sulfamethoxazole-Trimethoprim] trimethoprim Allergy Unknown Verified 03/03/24 14:32 [From Sulfamethoxazole-Trimethoprim] Assessment & Plan Assessment & Plan (1) Major neurocognitive disorder due to Alzheimer's disease, without behavioral disturbance: Status: Acute Code(s): G30.9 - Alzheimer's disease, unspecified; F02.80 - Dementia in other diseases classified elsewhere, unspecified severity, without behavioral disturbance, psychotic disturbance, mood disturbance, and anxiety Plan Elderly female with a past history of Alzheimer's, recently in a subacute rehab due to subdural hematoma referred for exacerbation of agitation. The patient is a very poor historian unable to provide any details still very agitated. Plan 03/20 continue tx. will check ammonia and depakote level on 03/22/24 at 7am. 03/21: continue current management and treatment plan. check labs tomorrow. 03/22: Continue current management and treatment plan. Check Depakote level and ammonia on 03/23. 03/23 increase trazodone up to 25 p.o. t.i.d. to target anxiety. 03/24 keep same treatment. 03/25 keep same treatment 03/26 keep same treatment 03/27 trazodone will be lowered to 12.5 p.o. t.i.d. 03/29/24 Increase lorazepam 0.5 t.i.d. p.r.n. 03/30 keep same treatment. 03/31 keep same treatment 04/01 keep same treatment 04/02 keep same treatment 04/03 Will schedule trazodone 50mg po qhs (slept only 2 hrs.), increase olanzapine 2.5mg po TID. 04/04 more redirectable from changes of meds yesterday- 04/05- CTP 04/06- continue plan of care 04/07 continue same treatment 04/08 keep same treatment 04/09 keep same treatment 04/10 paperwork for information of healthcare proxy was done. 04/11 continue current plans and regimen 04/12: Continue current regimen and plans. 04/13: Continue current regimen and plans 04/14 continue same treatment 04/15 continue same treatment 04/16 continue same treatment 04/17 today we have the court hearing for affirmation of healthcare proxy. 04/18-04/19 continue tx plan -labs drawn and pt with DIANA and mild hyponatremia; -consult placed; encouraging fluid 04/20 keep same treatment 04/21 keep same treatment. 04/22 she is slightly over-sedated so we are changing Zyprexa to 2.5 p.o. b.i.d.. Blood work came back with better creatinine. 04/23 keep same treatment. 04/24 keep same treatment, waiting for placement. 04/25: no change in presentation. continue current mgmt. 04/26: orthostatic hypotension, fell last night. remains on 1:1. encourage fluids, continue current mgmt. 04/27 keep same treatment 04/28 keep same treatment 04/29 keep same treatment 04/30 continue tx. 05/01 continue tx. 05/02 noted decrease in H&H, RN had reported blood in stool, ordered occult blood test x 3, started on PPI may need GI consult. 05/03 continue current tx. pending GI consult. 05/04 continue tx. repeat H&H improved. 05/05 continue tx. 05/06 continue tx. 05/07/24 Continue plan of care 05/08 continue tx. awaiting placement. 05/09/2024 Continue plan of care no major changes discharge planning 05/11 contine tx. 05/12 continue tx. 05/13 ordered labs/UA, head CT pt presented later in the day with AMS. 05/14 back to baseline mentation. labs, head CT unremarkable. 05/16: continue current management and treatment plan. 05/17: continue current management and treatment plan. 05/18 keep same treatment Reason for continued inpatient stay Substantial Risk for: inability to function, rapid decompensation and med/psych decompensation Time Spent With Patient Time: Total time managing care of this patient today __20__ minutes.
[2024-05-18 20:00] VITALS: BP 150/71; PULSE 71; RESP 16; TEMP 36.7; O2SAT 97
[2024-05-18] MEDS: traZODone HCL 50 MG TABLET PO ×2 (20:07→23:42)
[2024-05-18] MEDS: Donepezil HCl 5 MG TABLET PO (20:07)
[2024-05-18] MEDS: OLANZapine 5 MG TABLET PO (23:42)
[2024-05-19] MEDS: LORazepam 0.5 MG TABLET PO (01:19)
[2024-05-19] MEDS: Omeprazole 20 MG CAPSULE.DR PO (06:13)
[2024-05-19] MEDS: Levothyroxine Sodium 75 MCG TABLET PO (06:13)
[2024-05-19 08:00] VITALS: BP 138/73; PULSE 93; RESP 15; TEMP 36.3; O2SAT 97
[2024-05-19] MEDS: Divalproex Sodium Sprinkles 125 MG CAP.DR.SPR 250 MG PO ×3 (08:36→20:34)
[2024-05-19] MEDS: oxyBUTYnin chloride ER 5 MG TAB.ER.24 15 MG PO (08:37)
[2024-05-19] MEDS: OLANZapine 2.5 MG TABLET PO ×2 (08:38→20:34)
[2024-05-19] MEDS: Atorvastatin Calcium 20 MG TABLET PO (08:38)
[2024-05-19] MEDS: Loratadine 10 MG TABLET PO (08:38)
--- NOTE | 2024-05-19 16:15 | HO.PSYCHPN ---
Subjective Subjective Date of Service: 05/19/24 Reason For Visit: combative behaviors Subjective Notes: Conditional Voluntary Interim History: The nursing staff reported the patient had been restless, medication compliant. She needed p.r.n. Zyprexa at night. The social service worker reported the finally finally contact her regarding the paperwork needed for placement. On interview the patient denies new symptoms pleasantly confused easily redirectable. Mental Status Exam Mental Status Exam Patient Appearance: Appropriate Patient Orientation: Person and Situation Level of Consciousness: Awake and Appropriate Patient Behavior: Guarded and Passive Mood Description: Withdrawn Affect Description: Constricted Patient Cognition Impaired: Yes Ability to Follow Directions: Good Speech Pattern: Clear Hallucinations: None Delusions: Not Present Thought Process: Distracted and Slowed Thinking Thought Content: positive for [place] and positive for Poverty of Content Judgement: Fair Diagnostics Vital Signs (24Hr): Vital Signs - 24 hr 05/18/24 20:00 05/19/24 08:00 Temperature 98.1 F 97.4 F Pulse Rate 71 93 Respiratory Rate 16 15 Blood Pressure 150/71 H 138/73 Pulse Oximetry 97 97 Oxygen Delivery Method Room Air Room Air BMI result Body Mass Index 20.4 Labs 05/13/24 18:25 05/13/24 18:25 Imaging Radiology Impressions: ITS Impressions Chest X-Ray 04/21/24 14:43 IMPRESSION: Clear lungs. Electronically signed by: Micheal Barreto MD 04/21/2024 03:04 PM [facility] Medications Medications Current Medications Acetaminophen (Acetaminophen 325 Mg Tablet) 975 mg PO TID PRN PRN Reason: Fever Or Pain Last Admin: 04/25/24 20:19 Dose: 975 mg Al Hydroxide/Mg Hydroxide (Magnesium Hydrox/Alum Hydrox 30 Ml Oral.Susp) 30 ml PO Q6H PRN PRN Reason: Heartburn/Nausea Atorvastatin Calcium (Atorvastatin Calcium 20 Mg Tablet) 20 mg PO DAILY [facility] Last Admin: 05/19/24 08:38 Dose: 20 mg Bisacodyl (Bisacodyl 10 Mg Supp.Rect) 10 mg [place] DAILY PRN PRN Reason: Constipation Last Admin: 04/02/24 12:43 Dose: 10 mg Divalproex Sodium (Divalproex Sodium Sprinkles 125 Mg Cap.DrMaria FernandaSpr) 250 mg PO TID [facility] Last Admin: 05/19/24 15:14 Dose: 250 mg Donepezil HCl (Donepezil Hcl 5 Mg Tablet) 5 mg PO BEDTIME [facility] Last Admin: 05/18/24 20:07 Dose: 5 mg Levothyroxine Sodium (Levothyroxine Sodium 75 Mcg Tablet) 75 mcg PO DAILY@0600 [facility] Last Admin: 05/19/24 06:13 Dose: 75 mcg Loratadine (Loratadine 10 Mg Tablet) 10 mg PO DAILY [facility] Last Admin: 05/19/24 08:38 Dose: 10 mg Lorazepam (Lorazepam 0.5 Mg Tablet) 0.5 mg PO TID PRN PRN Reason: Anxiety Last Admin: 05/19/24 01:19 Dose: 0.5 mg Magnesium Hydroxide (Milk Of Magnesia 30 Ml Oral.Susp) 30 ml PO DAILY PRN PRN Reason: Constipation Last Admin: 03/28/24 20:36 Dose: 30 ml Olanzapine (Olanzapine 5 Mg Tablet) 5 mg PO Q6H PRN PRN Reason: agitation Last Admin: 05/18/24 23:42 Dose: 5 mg Olanzapine (Olanzapine 2.5 Mg Tablet) 2.5 mg PO BID [facility] Last Admin: 05/19/24 08:38 Dose: 2.5 mg Omeprazole (Omeprazole 20 Mg Capsule.Dr) 20 mg PO DAILY@0700 [facility] Last Admin: 05/19/24 06:13 Dose: 20 mg Oxybutynin Chloride (Oxybutynin Chloride Er 5 Mg Tab.Er.24) 15 mg PO DAILY [facility] Last Admin: 05/19/24 08:37 Dose: 15 mg Trazodone HCl (Trazodone Hcl 50 Mg Tablet) 50 mg PO BEDTIME PRN PRN Reason: sleep Last Admin: 05/18/24 23:42 Dose: 50 mg Trazodone HCl (Trazodone Hcl 50 Mg Tablet) 50 mg PO BEDTIME [facility] Last Admin: 05/18/24 20:07 Dose: 50 mg Allergies Allergies Allergy/AdvReac Type Severity Reaction Status Date / Time sulfamethoxazole Allergy Unknown Verified 03/03/24 14:32 [From Sulfamethoxazole-Trimethoprim] trimethoprim Allergy Unknown Verified 03/03/24 14:32 [From Sulfamethoxazole-Trimethoprim] Assessment & Plan Assessment & Plan (1) Major neurocognitive disorder due to Alzheimer's disease, without behavioral disturbance: Status: Acute Code(s): G30.9 - Alzheimer's disease, unspecified; F02.80 - Dementia in other diseases classified elsewhere, unspecified severity, without behavioral disturbance, psychotic disturbance, mood disturbance, and anxiety Plan Elderly female with a past history of Alzheimer's, recently in a subacute rehab due to subdural hematoma referred for exacerbation of agitation. The patient is a very poor historian unable to provide any details still very agitated. Plan 03/20 continue tx. will check ammonia and depakote level on 03/22/24 at 7am. 03/21: continue current management and treatment plan. check labs tomorrow. 03/22: Continue current management and treatment plan. Check Depakote level and ammonia on 03/23. 03/23 increase trazodone up to 25 p.o. t.i.d. to target anxiety. 03/24 keep same treatment. 03/25 keep same treatment 03/26 keep same treatment 03/27 trazodone will be lowered to 12.5 p.o. t.i.d. 03/29/24 Increase lorazepam 0.5 t.i.d. p.r.n. 03/30 keep same treatment. 03/31 keep same treatment 04/01 keep same treatment 04/02 keep same treatment 04/03 Will schedule trazodone 50mg po qhs (slept only 2 hrs.), increase olanzapine 2.5mg po TID. 04/04 more redirectable from changes of meds yesterday- 04/05- CTP 04/06- continue plan of care 04/07 continue same treatment 04/08 keep same treatment 04/09 keep same treatment 04/10 paperwork for information of healthcare proxy was done. 04/11 continue current plans and regimen 04/12: Continue current regimen and plans. 04/13: Continue current regimen and plans 04/14 continue same treatment 04/15 continue same treatment 04/16 continue same treatment 04/17 today we have the court hearing for affirmation of healthcare proxy. 04/18-04/19 continue tx plan -labs drawn and pt with DIANA and mild hyponatremia; -consult placed; encouraging fluid 04/20 keep same treatment 04/21 keep same treatment. 04/22 she is slightly over-sedated so we are changing Zyprexa to 2.5 p.o. b.i.d.. Blood work came back with better creatinine. 04/23 keep same treatment. 04/24 keep same treatment, waiting for placement. 04/25: no change in presentation. continue current mgmt. 04/26: orthostatic hypotension, fell last night. remains on 1:1. encourage fluids, continue current mgmt. 04/27 keep same treatment 04/28 keep same treatment 04/29 keep same treatment 04/30 continue tx. 05/01 continue tx. 05/02 noted decrease in H&H, RN had reported blood in stool, ordered occult blood test x 3, started on PPI may need GI consult. 05/03 continue current tx. pending GI consult. 05/04 continue tx. repeat H&H improved. 05/05 continue tx. 05/06 continue tx. 05/07/24 Continue plan of care 05/08 continue tx. awaiting placement. 05/09/2024 Continue plan of care no major changes discharge planning 05/11 contine tx. 05/12 continue tx. 05/13 ordered labs/UA, head CT pt presented later in the day with AMS. 05/14 back to baseline mentation. labs, head CT unremarkable. 05/16: continue current management and treatment plan. 05/17: continue current management and treatment plan. 05/18 keep same treatment 05/19 keep same treatment Reason for continued inpatient stay Substantial Risk for: inability to function, rapid decompensation and med/psych decompensation Time Spent With Patient Time: Total time managing care of this patient today __20__ minutes.
[2024-05-19 20:00] VITALS: BP 154/67; PULSE 83; RESP 16; TEMP 36.8; O2SAT 95
[2024-05-19] MEDS: traZODone HCL 50 MG TABLET PO (20:34)
[2024-05-19] MEDS: Donepezil HCl 5 MG TABLET PO (20:34)
[2024-05-20] MEDS: traZODone HCL 50 MG TABLET PO ×2 (01:17→20:45)
[2024-05-20] MEDS: LORazepam 0.5 MG TABLET PO (01:17)
[2024-05-20] MEDS: Levothyroxine Sodium 75 MCG TABLET PO (06:26)
[2024-05-20] MEDS: Omeprazole 20 MG CAPSULE.DR PO (06:26)
[2024-05-20 08:00] VITALS: BP 137/75; PULSE 81; RESP 16; TEMP 36.2; O2SAT 96
[2024-05-20] MEDS: Divalproex Sodium Sprinkles 125 MG CAP.DR.SPR 250 MG PO ×3 (08:30→20:46)
[2024-05-20] MEDS: oxyBUTYnin chloride ER 5 MG TAB.ER.24 15 MG PO (08:31)
[2024-05-20] MEDS: OLANZapine 2.5 MG TABLET PO ×2 (08:31→20:46)
[2024-05-20] MEDS: Atorvastatin Calcium 20 MG TABLET PO (08:31)
[2024-05-20] MEDS: Loratadine 10 MG TABLET PO (08:31)
--- NOTE | 2024-05-20 13:05 | MHC.SLORD ---
Speech Language Pathology Order Status: Pt had aleady eaten lunch when HOISTING ENGINEER arrived to floor, no concerns with PO tolerance reported. HOISTING ENGINEER continues to follow.
--- NOTE | 2024-05-20 14:41 | HO.PSYCHPN ---
Subjective Subjective Date of Service: 05/20/24 Reason For Visit: combative behaviors Subjective Notes: Conditional Voluntary Interim History: The nursing staff reported the patient had been compliant with meds, exit seeking at times but easily redirectable. The criminal justice social worker reported that her daughter are still trying to get financial clearance. It is unclear when it we are going to have the [employer] hearing. On interview the patient denies new symptoms pleasantly confused easily redirectable. Mental Status Exam Mental Status Exam Patient Appearance: Appropriate Patient Orientation: Person and Situation Level of Consciousness: Awake and Appropriate Patient Behavior: Guarded and Passive Mood Description: Withdrawn Patient Cognition Impaired: Yes Ability to Follow Directions: Good Speech Pattern: Clear Hallucinations: None Delusions: Not Present Thought Process: Distracted and Slowed Thinking Thought Content: positive for [place] and positive for Poverty of Content Judgement: Fair Diagnostics Vital Signs (24Hr): Vital Signs - 24 hr 05/19/24 20:00 05/20/24 08:00 Temperature 98.2 F 97.2 F Pulse Rate 83 81 Respiratory Rate 16 16 Blood Pressure 154/67 H 137/75 Pulse Oximetry 95 96 Oxygen Delivery Method Room Air Room Air BMI result Body Mass Index 20.4 Labs 05/13/24 18:25 05/13/24 18:25 Imaging Radiology Impressions: ITS Impressions Chest X-Ray 04/21/24 14:43 IMPRESSION: Clear lungs. Electronically signed by: Micheal Barreto MD 04/21/2024 03:04 PM [facility] Medications Medications Current Medications Acetaminophen (Acetaminophen 325 Mg Tablet) 975 mg PO TID PRN PRN Reason: Fever Or Pain Last Admin: 04/25/24 20:19 Dose: 975 mg Al Hydroxide/Mg Hydroxide (Magnesium Hydrox/Alum Hydrox 30 Ml Oral.Susp) 30 ml PO Q6H PRN PRN Reason: Heartburn/Nausea Atorvastatin Calcium (Atorvastatin Calcium 20 Mg Tablet) 20 mg PO DAILY [facility] Last Admin: 05/20/24 08:31 Dose: 20 mg Bisacodyl (Bisacodyl 10 Mg Supp.Rect) 10 mg [place] DAILY PRN PRN Reason: Constipation Last Admin: 04/02/24 12:43 Dose: 10 mg Divalproex Sodium (Divalproex Sodium Sprinkles 125 Mg Camilo.) 250 mg PO TID [facility] Last Admin: 05/20/24 08:30 Dose: 250 mg Donepezil HCl (Donepezil Hcl 5 Mg Tablet) 5 mg PO BEDTIME [facility] Last Admin: 05/19/24 20:34 Dose: 5 mg Levothyroxine Sodium (Levothyroxine Sodium 75 Mcg Tablet) 75 mcg PO DAILY@0600 [facility] Last Admin: 05/20/24 06:26 Dose: 75 mcg Loratadine (Loratadine 10 Mg Tablet) 10 mg PO DAILY [facility] Last Admin: 05/20/24 08:31 Dose: 10 mg Lorazepam (Lorazepam 0.5 Mg Tablet) 0.5 mg PO TID PRN PRN Reason: Anxiety Last Admin: 05/20/24 01:17 Dose: 0.5 mg Magnesium Hydroxide (Milk Of Magnesia 30 Ml Oral.Susp) 30 ml PO DAILY PRN PRN Reason: Constipation Last Admin: 03/28/24 20:36 Dose: 30 ml Olanzapine (Olanzapine 5 Mg Tablet) 5 mg PO Q6H PRN PRN Reason: agitation Last Admin: 05/18/24 23:42 Dose: 5 mg Olanzapine (Olanzapine 2.5 Mg Tablet) 2.5 mg PO BID [facility] Last Admin: 05/20/24 08:31 Dose: 2.5 mg Omeprazole (Omeprazole 20 Mg Capsule.Dr) 20 mg PO DAILY@0700 [facility] Last Admin: 05/20/24 06:26 Dose: 20 mg Oxybutynin Chloride (Oxybutynin Chloride Er 5 Mg Tab.Er.24) 15 mg PO DAILY [facility] Last Admin: 05/20/24 08:31 Dose: 15 mg Trazodone HCl (Trazodone Hcl 50 Mg Tablet) 50 mg PO BEDTIME PRN PRN Reason: sleep Last Admin: 05/20/24 01:17 Dose: 50 mg Trazodone HCl (Trazodone Hcl 50 Mg Tablet) 50 mg PO BEDTIME [facility] Last Admin: 05/19/24 20:34 Dose: 50 mg Allergies Allergies Allergy/AdvReac Type Severity Reaction Status Date / Time sulfamethoxazole Allergy Unknown Verified 03/03/24 14:32 [From Sulfamethoxazole-Trimethoprim] trimethoprim Allergy Unknown Verified 03/03/24 14:32 [From Sulfamethoxazole-Trimethoprim] Assessment & Plan Assessment & Plan (1) Major neurocognitive disorder due to Alzheimer's disease, without behavioral disturbance: Status: Acute Code(s): G30.9 - Alzheimer's disease, unspecified; F02.80 - Dementia in other diseases classified elsewhere, unspecified severity, without behavioral disturbance, psychotic disturbance, mood disturbance, and anxiety Plan Elderly female with a past history of Alzheimer's, recently in a subacute rehab due to subdural hematoma referred for exacerbation of agitation. The patient is a very poor historian unable to provide any details still very agitated. Plan 03/20 continue tx. will check ammonia and depakote level on 03/22/24 at 7am. 03/21: continue current management and treatment plan. check labs tomorrow. 03/22: Continue current management and treatment plan. Check Depakote level and ammonia on 03/23. 03/23 increase trazodone up to 25 p.o. t.i.d. to target anxiety. 03/24 keep same treatment. 03/25 keep same treatment 03/26 keep same treatment 03/27 trazodone will be lowered to 12.5 p.o. t.i.d. 03/29/24 Increase lorazepam 0.5 t.i.d. p.r.n. 03/30 keep same treatment. 03/31 keep same treatment 04/01 keep same treatment 04/02 keep same treatment 04/03 Will schedule trazodone 50mg po qhs (slept only 2 hrs.), increase olanzapine 2.5mg po TID. 04/04 more redirectable from changes of meds yesterday- 04/05- CTP 04/06- continue plan of care 04/07 continue same treatment 04/08 keep same treatment 04/09 keep same treatment 04/10 paperwork for information of healthcare proxy was done. 04/11 continue current plans and regimen 04/12: Continue current regimen and plans. 04/13: Continue current regimen and plans 04/14 continue same treatment 04/15 continue same treatment 04/16 continue same treatment 04/17 [address] the court hearing for affirmation of healthcare proxy. 04/18-04/19 continue tx plan -labs drawn and pt with DIANA and mild hyponatremia; -consult placed; encouraging fluid 04/20 keep same treatment 04/21 keep same treatment. 04/22 she is slightly over-sedated so we are changing Zyprexa to 2.5 p.o. b.i.d.. Blood work came back with better creatinine. 04/23 keep same treatment. 04/24 keep same treatment, waiting for placement. 04/25: no change in presentation. continue current mgmt. 04/26: orthostatic hypotension, fell last night. remains on 1:1. encourage fluids, continue current mgmt. 04/27 keep same treatment 04/28 keep same treatment 04/29 keep same treatment 04/30 continue tx. 05/01 continue tx. 05/02 noted decrease in H&H, RN had reported blood in stool, ordered occult blood test x 3, started on PPI may need GI consult. 05/03 continue current tx. pending GI consult. 05/04 continue tx. repeat H&H improved. 05/05 continue tx. 05/06 continue tx. 05/07/24 Continue plan of care 05/08 continue tx. awaiting placement. 05/09/2024 Continue plan of care no major changes discharge planning 05/11 contine tx. 05/12 continue tx. 05/13 ordered labs/UA, head CT pt presented later in the day with AMS. 05/14 back to baseline mentation. labs, head CT unremarkable. 05/16: continue current management and treatment plan. 05/17: continue current management and treatment plan. 05/18 keep same treatment 05/19 keep same treatment 05/20 keep same treatment Reason for continued inpatient stay Substantial Risk for: inability to function, rapid decompensation and med/psych decompensation Time Spent With Patient Time: Total time managing care of this patient today __20__ minutes.
[2024-05-20 20:00] VITALS: BP 141/72; PULSE 72; RESP 16; TEMP 36.3; O2SAT 96
[2024-05-20] MEDS: Donepezil HCl 5 MG TABLET PO (20:46)
[2024-05-21] MEDS: Omeprazole 20 MG CAPSULE.DR PO (06:33)
[2024-05-21] MEDS: Levothyroxine Sodium 75 MCG TABLET PO (06:33)
[2024-05-21 07:00] VITALS: BMI 19.9
[2024-05-21 08:00] VITALS: BP 111/70; PULSE 68; RESP 16; TEMP 36; O2SAT 97
[2024-05-21] MEDS: Atorvastatin Calcium 20 MG TABLET PO (08:45)
[2024-05-21] MEDS: Divalproex Sodium Sprinkles 125 MG CAP.DR.SPR 250 MG PO ×3 (08:45→20:10)
[2024-05-21] MEDS: OLANZapine 2.5 MG TABLET PO ×2 (08:45→20:10)
[2024-05-21] MEDS: oxyBUTYnin chloride ER 5 MG TAB.ER.24 15 MG PO (08:45)
[2024-05-21] MEDS: Loratadine 10 MG TABLET PO (08:45)
--- NOTE | 2024-05-21 17:02 | HO.PSYCHPN ---
Subjective Subjective Date of Service: 05/21/24 Reason For Visit: combative behaviors Subjective Notes: Conditional Voluntary Interim History: The nursing staff reported no changes in her mental status, good appetite medication compliant. She is on one-to-one for safety walking with her walker. On interview the patient denies new symptoms waiting for placement. The pediatric social worker reported that the main barrier for discharge since the financial. Paperwork done waiting for . Mental Status Exam Mental Status Exam Patient Appearance: Appropriate Patient Orientation: Person and Situation Level of Consciousness: Awake and Appropriate Patient Behavior: Guarded and Passive Mood Description: Withdrawn Affect Description: Constricted Patient Cognition Impaired: Yes Ability to Follow Directions: Good Speech Pattern: Clear Hallucinations: None Delusions: Paranoid Ideation and Ideas of Reference Thought Process: Distracted and Slowed Thinking Thought Content: positive for [place] and positive for Poverty of Content Judgement: Fair Diagnostics Vital Signs (24Hr): Vital Signs - 24 hr 05/20/24 20:00 05/21/24 08:00 Temperature 97.4 F 96.8 F Pulse Rate 72 68 Respiratory Rate 16 16 Blood Pressure 141/72 H 111/70 Pulse Oximetry 96 97 Oxygen Delivery Method Room Air Room Air BMI result Body Mass Index 19.9 Labs 05/13/24 18:25 05/13/24 18:25 Imaging Radiology Impressions: ITS Impressions Chest X-Ray 04/21/24 14:43 IMPRESSION: Clear lungs. Electronically signed by: Micheal Barreto MD 04/21/2024 03:04 PM [facility] Medications Medications Current Medications Acetaminophen (Acetaminophen 325 Mg Tablet) 975 mg PO TID PRN PRN Reason: Fever Or Pain Last Admin: 04/25/24 20:19 Dose: 975 mg Al Hydroxide/Mg Hydroxide (Magnesium Hydrox/Alum Hydrox 30 Ml Oral.Susp) 30 ml PO Q6H PRN PRN Reason: Heartburn/Nausea Atorvastatin Calcium (Atorvastatin Calcium 20 Mg Tablet) 20 mg PO DAILY [facility] Last Admin: 05/21/24 08:45 Dose: 20 mg Bisacodyl (Bisacodyl 10 Mg Supp.Rect) 10 mg [place] DAILY PRN PRN Reason: Constipation Last Admin: 04/02/24 12:43 Dose: 10 mg Divalproex Sodium (Divalproex Sodium Sprinkles 125 Mg ) 250 mg PO TID [facility] Last Admin: 05/21/24 15:09 Dose: 250 mg Donepezil HCl (Donepezil Hcl 5 Mg Tablet) 5 mg PO BEDTIME [facility] Last Admin: 05/20/24 20:46 Dose: 5 mg Levothyroxine Sodium (Levothyroxine Sodium 75 Mcg Tablet) 75 mcg PO DAILY@0600 [facility] Last Admin: 05/21/24 06:33 Dose: 75 mcg Loratadine (Loratadine 10 Mg Tablet) 10 mg PO DAILY [facility] Last Admin: 05/21/24 08:45 Dose: 10 mg Lorazepam (Lorazepam 0.5 Mg Tablet) 0.5 mg PO TID PRN PRN Reason: Anxiety Last Admin: 05/20/24 01:17 Dose: 0.5 mg Magnesium Hydroxide (Milk Of Magnesia 30 Ml Oral.Susp) 30 ml PO DAILY PRN PRN Reason: Constipation Last Admin: 03/28/24 20:36 Dose: 30 ml Olanzapine (Olanzapine 5 Mg Tablet) 5 mg PO Q6H PRN PRN Reason: agitation Last Admin: 05/18/24 23:42 Dose: 5 mg Olanzapine (Olanzapine 2.5 Mg Tablet) 2.5 mg PO BID [facility] Last Admin: 05/21/24 08:45 Dose: 2.5 mg Omeprazole (Omeprazole 20 Mg Capsule.Dr) 20 mg PO DAILY@0700 [facility] Last Admin: 05/21/24 06:33 Dose: 20 mg Oxybutynin Chloride (Oxybutynin Chloride Er 5 Mg Tab.Er.24) 15 mg PO DAILY [facility] Last Admin: 05/21/24 08:45 Dose: 15 mg Trazodone HCl (Trazodone Hcl 50 Mg Tablet) 50 mg PO BEDTIME PRN PRN Reason: sleep Last Admin: 05/20/24 01:17 Dose: 50 mg Trazodone HCl (Trazodone Hcl 50 Mg Tablet) 50 mg PO BEDTIME [facility] Last Admin: 05/20/24 20:45 Dose: 50 mg Allergies Allergies Allergy/AdvReac Type Severity Reaction Status Date / Time sulfamethoxazole Allergy Unknown Verified 03/03/24 14:32 [From Sulfamethoxazole-Trimethoprim] trimethoprim Allergy Unknown Verified 03/03/24 14:32 [From Sulfamethoxazole-Trimethoprim] Assessment & Plan Assessment & Plan (1) Major neurocognitive disorder due to Alzheimer's disease, without behavioral disturbance: Status: Acute Code(s): G30.9 - Alzheimer's disease, unspecified; F02.80 - Dementia in other diseases classified elsewhere, unspecified severity, without behavioral disturbance, psychotic disturbance, mood disturbance, and anxiety Plan Elderly female with a past history of Alzheimer's, recently in a subacute rehab due to subdural hematoma referred for exacerbation of agitation. The patient is a very poor historian unable to provide any details still very agitated. Plan 03/20 continue tx. will check ammonia and depakote level on 03/22/24 at 7am. 03/21: continue current management and treatment plan. check labs tomorrow. 03/22: Continue current management and treatment plan. Check Depakote level and ammonia on 03/23. 03/23 increase trazodone up to 25 p.o. t.i.d. to target anxiety. 03/24 keep same treatment. 03/25 keep same treatment 03/26 keep same treatment 03/27 trazodone will be lowered to 12.5 p.o. t.i.d. 03/29/24 Increase lorazepam 0.5 t.i.d. p.r.n. 03/30 keep same treatment. 03/31 keep same treatment 04/01 keep same treatment 04/02 keep same treatment 04/03 Will schedule trazodone 50mg po qhs (slept only 2 hrs.), increase olanzapine 2.5mg po TID. 04/04 more redirectable from changes of meds yesterday- 04/05- CTP 04/06- continue plan of care 04/07 continue same treatment 04/08 keep same treatment 04/09 keep same treatment 04/10 paperwork for information of healthcare proxy was done. 04/11 continue current plans and regimen 04/12: Continue current regimen and plans. 04/13: Continue current regimen and plans 04/14 continue same treatment 04/15 continue same treatment 04/16 continue same treatment 04/17 today we have the court hearing for affirmation of healthcare proxy. 04/18-04/19 continue tx plan -labs drawn and pt with DIANA and mild hyponatremia; -consult placed; encouraging fluid 04/20 keep same treatment 04/21 keep same treatment. 04/22 she is slightly over-sedated so we are changing Zyprexa to 2.5 p.o. b.i.d.. Blood work came back with better creatinine. 04/23 keep same treatment. 04/24 keep same treatment, waiting for placement. 04/25: no change in presentation. continue current mgmt. 04/26: orthostatic hypotension, fell last night. remains on 1:1. encourage fluids, continue current mgmt. 04/27 keep same treatment 04/28 keep same treatment 04/29 keep same treatment 04/30 continue tx. 05/01 continue tx. 05/02 noted decrease in H&H, RN had reported blood in stool, ordered occult blood test x 3, started on PPI may need GI consult. 05/03 continue current tx. pending GI consult. 05/04 continue tx. repeat H&H improved. 05/05 continue tx. 05/06 continue tx. 05/07/24 Continue plan of care 05/08 continue tx. awaiting placement. 05/09/2024 Continue plan of care no major changes discharge planning 05/11 contine tx. 05/12 continue tx. 05/13 ordered labs/UA, head CT pt presented later in the day with AMS. 05/14 back to baseline mentation. labs, head CT unremarkable. 05/16: continue current management and treatment plan. 05/17: continue current management and treatment plan. 05/18 keep same treatment 05/19 keep same treatment 05/20 keep same treatment 05/21 keep same treatment Reason for continued inpatient stay Substantial Risk for: inability to function, rapid decompensation and med/psych decompensation Time Spent With Patient Time: Total time managing care of this patient today ____ minutes.
--- NOTE | 2024-05-21 18:21 | MHC.SL.SWA ---
Speech Pathologist Impression: Within Functional Limits Oral Phase Dysphagia Risk of Aspiration Due to: Reduced Cognition Dysphasia Diet Status: Recommend continue on Ground Mechanical (NDD2) with thin liquids, pills crushed in puree. Recommend d/c speech service at this time, please re-contact if additional concerns arise. Liquid Consistency and Strategies for Safe Swallow: Liquid Intake Recommendation: Thin Liquid Intake Strategies: Small Sips No Straws Solid Food Consistency: Dietary Recommendations: Grnd/Mech Altered (NDD2) Additional Modifications to Solid Foods: DIRECTOR OF RADIOLOGY to f/u 1x to monitor Oral Medication Intake: Whole with Puree Please contact the pharmacy regarding appropriate crushable or liquid drug formulations that are available whenever modified delivery is recommended. Compensatory Strategies and Precautions to be Taken for Safe Swallow: Sitting Upright (90 deg) Liquids from Cup Liquids from Straw Small Bites and Sips Alternate Liquids/Solids Supervision While Eating and Drinking for Safe Swallow: Intermittent Supervision Foods to Avoid: Mixed consistencies Swallowing Recommended Treatments: Compens. Strategy Educat. Recommendation for Speech: Inpatient Speech Therapy Comment: Patient was seen at lunch today for toleration of diet. Patient was being supervised, but eating meal independently. Patient was consuming yogurt at time of observation, was steadily progressing through cup, with not difficulties observed. At meal patient had eaten mostly purees on tray, and taken only a few bites of ground meat (but per EVENT DECORATOR AND DESIGNER enjoyed and ate all mashed potatoes). Patient presents as stable and tolerating well current diet consistency, benefits from supervision. Recommend continue on Ground Mechanical (NDD2) with thin liquids, pills whole in puree. Recommend d/c speech service at this time, please re-contact if additional concerns arise. Frequency/Duration: M-F Daily Date Range for Service Req: Timeline to reassess: Developer Analyst Clinican/Clinical Fellow: No Supervisory Statement: I have reviewed and agree with the student/clinical fellow's documentation: N/A Speech Language Pathologist: Letty Hale M.A., CCC-DIRECTOR OF RADIOLOGY
[2024-05-21 20:00] VITALS: BP 145/72; PULSE 100; RESP 16; TEMP 36.4; O2SAT 96
[2024-05-21] MEDS: traZODone HCL 50 MG TABLET PO (20:11)
[2024-05-21] MEDS: Donepezil HCl 5 MG TABLET PO (20:11)
[2024-05-22] MEDS: OLANZapine 5 MG TABLET PO (00:49)
[2024-05-22] MEDS: traZODone HCL 50 MG TABLET PO ×2 (00:50→20:14)
[2024-05-22] MEDS: Omeprazole 20 MG CAPSULE.DR PO (06:19)
[2024-05-22] MEDS: Levothyroxine Sodium 75 MCG TABLET PO (06:19)
[2024-05-22 08:00] VITALS: BP 127/74; PULSE 86; RESP 16; TEMP 36.9; O2SAT 97
[2024-05-22] MEDS: Atorvastatin Calcium 20 MG TABLET PO (09:58)
[2024-05-22] MEDS: Divalproex Sodium Sprinkles 125 MG CAP.DR.SPR 250 MG PO ×3 (09:58→20:14)
[2024-05-22] MEDS: OLANZapine 2.5 MG TABLET PO ×2 (09:58→20:14)
[2024-05-22] MEDS: oxyBUTYnin chloride ER 5 MG TAB.ER.24 15 MG PO (09:58)
[2024-05-22] MEDS: Loratadine 10 MG TABLET PO (09:58)
--- NOTE | 2024-05-22 16:59 | PC.NURSE ---
Bladder scanned for 221 PVR.
--- NOTE | 2024-05-22 17:23 | P.PNPSI_ITS ---
Subjective Subjective Date of Service: 05/22/24 Reason For Visit: combative behaviors Subjective Notes: Conditional Voluntary Interim History: The nursing staff reported the patient had been calm cooperative with good appetite. She had been compliant with medications slept 8 hours. On interview the patient was pleasantly confused on one-to-one for safety. Mental Status Exam Mental Status Exam Patient Appearance: Appropriate Patient Orientation: Person and Situation Level of Consciousness: Awake and Appropriate Patient Behavior: Guarded and Passive Mood Description: Withdrawn Affect Description: Constricted Patient Cognition Impaired: Yes Ability to Follow Directions: Good Speech Pattern: Clear Hallucinations: None Delusions: Ideas of Reference Thought Process: Distracted and Slowed Thinking Thought Content: positive for [place] and positive for Poverty of Content Judgement: Fair Diagnostics Vital Signs (24Hr): Vital Signs - 24 hr 05/21/24 20:00 05/22/24 08:00 Temperature 97.6 F 98.4 F Pulse Rate 100 86 Respiratory Rate 16 16 Blood Pressure 145/72 H 127/74 Pulse Oximetry 96 97 Oxygen Delivery Method Room Air Room Air BMI result Body Mass Index 19.9 Labs 05/13/24 18:25 05/13/24 18:25 Imaging Radiology Impressions: ITS Impressions Chest X-Ray 04/21/24 14:43 IMPRESSION: Clear lungs. Electronically signed by: Micheal Barreto MD 04/21/2024 03:04 PM [facility] Medications Medications Current Medications Acetaminophen (Acetaminophen 325 Mg Tablet) 975 mg PO TID PRN PRN Reason: Fever Or Pain Last Admin: 04/25/24 20:19 Dose: 975 mg Al Hydroxide/Mg Hydroxide (Magnesium Hydrox/Alum Hydrox 30 Ml Oral.Susp) 30 ml PO Q6H PRN PRN Reason: Heartburn/Nausea Atorvastatin Calcium (Atorvastatin Calcium 20 Mg Tablet) 20 mg PO DAILY [facility] Last Admin: 05/22/24 09:58 Dose: 20 mg Bisacodyl (Bisacodyl 10 Mg Supp.Rect) 10 mg [place] DAILY PRN PRN Reason: Constipation Last Admin: 04/02/24 12:43 Dose: 10 mg Divalproex Sodium (Divalproex Sodium Sprinkles 125 Mg Cap.Dr.Spr) 250 mg PO TID [facility] Last Admin: 05/22/24 15:37 Dose: 250 mg Donepezil HCl (Donepezil Hcl 5 Mg Tablet) 5 mg PO BEDTIME [facility] Last Admin: 05/21/24 20:11 Dose: 5 mg Levothyroxine Sodium (Levothyroxine Sodium 75 Mcg Tablet) 75 mcg PO DAILY@0600 [facility] Last Admin: 05/22/24 06:19 Dose: 75 mcg Loratadine (Loratadine 10 Mg Tablet) 10 mg PO DAILY [facility] Last Admin: 05/22/24 09:58 Dose: 10 mg Lorazepam (Lorazepam 0.5 Mg Tablet) 0.5 mg PO TID PRN PRN Reason: Anxiety Last Admin: 05/20/24 01:17 Dose: 0.5 mg Magnesium Hydroxide (Milk Of Magnesia 30 Ml Oral.Susp) 30 ml PO DAILY PRN PRN Reason: Constipation Last Admin: 03/28/24 20:36 Dose: 30 ml Olanzapine (Olanzapine 5 Mg Tablet) 5 mg PO Q6H PRN PRN Reason: agitation Last Admin: 05/22/24 00:49 Dose: 5 mg Olanzapine (Olanzapine 2.5 Mg Tablet) 2.5 mg PO BID [facility] Last Admin: 05/22/24 09:58 Dose: 2.5 mg Omeprazole (Omeprazole 20 Mg Capsule.Dr) 20 mg PO DAILY@0700 [facility] Last Admin: 05/22/24 06:19 Dose: 20 mg Oxybutynin Chloride (Oxybutynin Chloride Er 5 Mg Tab.Er.24) 15 mg PO DAILY [facility] Last Admin: 05/22/24 09:58 Dose: 15 mg Trazodone HCl (Trazodone Hcl 50 Mg Tablet) 50 mg PO BEDTIME PRN PRN Reason: sleep Last Admin: 05/22/24 00:50 Dose: 50 mg Trazodone HCl (Trazodone Hcl 50 Mg Tablet) 50 mg PO BEDTIME [facility] Last Admin: 05/21/24 20:11 Dose: 50 mg Allergies Allergies Allergy/AdvReac Type Severity Reaction Status Date / Time sulfamethoxazole Allergy Unknown Verified 03/03/24 14:32 [From Sulfamethoxazole-Trimethoprim] trimethoprim Allergy Unknown Verified 03/03/24 14:32 [From Sulfamethoxazole-Trimethoprim] Assessment & Plan Assessment & Plan (1) Major neurocognitive disorder due to Alzheimer's disease, without behavioral disturbance: Status: Acute Code(s): G30.9 - Alzheimer's disease, unspecified; F02.80 - Dementia in other diseases classified elsewhere, unspecified severity, without behavioral disturbance, psychotic disturbance, mood disturbance, and anxiety Plan Elderly female with a past history of Alzheimer's, recently in a subacute rehab due to subdural hematoma referred for exacerbation of agitation. The patient is a very poor historian unable to provide any details still very agitated. Plan 03/20 continue tx. will check ammonia and depakote level on 03/22/24 at 7am. 03/21: continue current management and treatment plan. check labs tomorrow. 03/22: Continue current management and treatment plan. Check Depakote level and ammonia on 03/23. 03/23 increase trazodone up to 25 p.o. t.i.d. to target anxiety. 03/24 keep same treatment. 03/25 keep same treatment 03/26 keep same treatment 03/27 trazodone will be lowered to 12.5 p.o. t.i.d. 03/29/24 Increase lorazepam 0.5 t.i.d. p.r.n. 03/30 keep same treatment. 03/31 keep same treatment 04/01 keep same treatment 04/02 keep same treatment 04/03 Will schedule trazodone 50mg po qhs (slept only 2 hrs.), increase olanzapine 2.5mg po TID. 04/04 more redirectable from changes of meds yesterday- 04/05- CTP 04/06- continue plan of care 04/07 continue same treatment 04/08 keep same treatment 04/09 keep same treatment 04/10 paperwork for information of healthcare proxy was done. 04/11 continue current plans and regimen 04/12: Continue current regimen and plans. 04/13: Continue current regimen and plans 04/14 continue same treatment 04/15 continue same treatment 04/16 continue same treatment 04/17 today we have the court hearing for affirmation of healthcare proxy. 04/18-04/19 continue tx plan -labs drawn and pt with DIANA and mild hyponatremia; -consult placed; encouraging fluid 04/20 keep same treatment 04/21 keep same treatment. 04/22 she is slightly over-sedated so we are changing Zyprexa to 2.5 p.o. b.i.d.. Blood work came back with better creatinine. 04/23 keep same treatment. 04/24 keep same treatment, waiting for placement. 04/25: no change in presentation. continue current mgmt. 04/26: orthostatic hypotension, fell last night. remains on 1:1. encourage fluids, continue current mgmt. 04/27 keep same treatment 04/28 keep same treatment 04/29 keep same treatment 04/30 continue tx. 05/01 continue tx. 05/02 noted decrease in H&H, RN had reported blood in stool, ordered occult blood test x 3, started on PPI may need GI consult. 05/03 continue current tx. pending GI consult. 05/04 continue tx. repeat H&H improved. 05/05 continue tx. 05/06 continue tx. 05/07/24 Continue plan of care 05/08 continue tx. awaiting placement. 05/09/2024 Continue plan of care no major changes discharge planning 05/11 contine tx. 05/12 continue tx. 05/13 ordered labs/UA, head CT pt presented later in the day with AMS. 05/14 back to baseline mentation. labs, head CT unremarkable. 05/16: continue current management and treatment plan. 05/17: continue current management and treatment plan. 05/18 keep same treatment 05/19 keep same treatment 05/20 keep same treatment 05/21 keep same treatment 05/22 keep same treatment Reason for continued inpatient stay Substantial Risk for: inability to function, rapid decompensation and med/psych decompensation Time Spent With Patient Time: Total time managing care of this patient today ____ minutes.
[2024-05-22 20:00] VITALS: BP 137/64; PULSE 92; RESP 16; TEMP 36.1; O2SAT 95
[2024-05-22] MEDS: Donepezil HCl 5 MG TABLET PO (20:14)
[2024-05-22 21:54] LABS: Appearance Urine Clear; Color Urine Yellow; Glucose Urine UA Negative (Negative); Leukocyte Esterase Urine Small (1+) (Negative); Nitrite Urine Negative (Negative); PH 7.5 (5.0-9.0); UMIC TRIGGER UACC YES; Urine Blood Negative (Negative); Urine Ketones Negative (Negative); Urine Protein Negative (Neg-Trace)
[2024-05-22 22:00] LABS: Bacteria Urine None Seen (None Seen); Hyaline Casts Urine 0-2 /LPF (0-2); RBC Urine 0-2 /HPF (0-2); Squamous Epithelial Cell Urine 0-2 /HPF (0-2); UACC Culture Trigger YES; WBC Urine 0-5 /HPF (0-5)
[2024-05-23] MEDS: Omeprazole 20 MG CAPSULE.DR PO (05:55)
[2024-05-23] MEDS: Levothyroxine Sodium 75 MCG TABLET PO (05:55)
[2024-05-23 07:55] VITALS: BP 129/70; PULSE 82; RESP 18; TEMP 36.4; O2SAT 96
[2024-05-23] MEDS: OLANZapine 2.5 MG TABLET PO ×2 (08:03→20:37)
[2024-05-23] MEDS: Divalproex Sodium Sprinkles 125 MG CAP.DR.SPR 250 MG PO ×3 (08:03→20:37)
[2024-05-23] MEDS: oxyBUTYnin chloride ER 5 MG TAB.ER.24 15 MG PO (08:03)
[2024-05-23] MEDS: Loratadine 10 MG TABLET PO (08:04)
[2024-05-23] MEDS: Atorvastatin Calcium 20 MG TABLET PO (08:04)
[2024-05-23 10:05] VITALS: BP 158/64; PULSE 80; RESP 16; TEMP 36.1; O2SAT 94
--- NOTE | 2024-05-23 10:34 | PC.NURSE ---
Pt was in shower room getting dressed bent over to put her slippers on and lost her balance, banged her head into wall. Neuros WNL, VSS, no injurys noted. Pt denies Pain/discomfort. Provider and patients daughter aware, cat scan and hospitalist notified.
[2024-05-23 10:44] LABS: Hematocrit 35.5 % (37.0-47.0); Hemoglobin 11.8 g/dl (12.0-16.0); Mean Corpuscular HGB Conc 33.2 g/dl (31.0-35.0); Mean Corpuscular Hemoglobin 30.5 pg (27.0-33.0); Mean Corpuscular Volume 91.7 fL (80.0-98.0); Mean Platelet Volume 10.9 fL (9.4-12.3); Platelet Count 137 X10*3/uL (160-400); Red Blood Count 3.87 X10*6/uL (4.20-5.50); Red Cell Distribution Width 13.3 % (11.0-16.0); White Blood Count 7.7 X10*3/uL (4.8-10.8)
--- NOTE | 2024-05-23 10:44 | PM.EVENT ---
Event Note Date of Service: 05/23/24 Event Note: Asked to come see patient for mechanical fall. Patient states she was reaching for her slipper and fell and hit back of head. Did not lose consciousness, denies dizziness, did not hit her head particularly hard and has no obvious trauma. Feels well now. On exam patient is hard of hearing, alert and comfortable, no laceration or obvious trauma Appears to have a pill rolling tremor, flat affect Last labs from 05/13/24 showed sodium of [address] head, follow-up repeat labs Time Spent With Patient Time: Total time managing care of this patient today ____ minutes.
[2024-05-23 10:55] LABS: Anion Gap 11 (12-20); Blood Urea Nitrogen 15 mg/dL (9-16); Calcium 8.9 mg/dL (8.4-10.2); Carbon Dioxide 28 mmol/L (22-29); Chloride 94 mmol/L (96-108); Creatinine Clr Calc Pharmacy 42.8; Estimated Glomerular Filt Rate 60; Glucose Random 69 mg/dL (60-115); Potassium 4.4 mmol/L (3.3-5.1); Sodium 129 mmol/L (135-145)
--- NOTE | 2024-05-23 16:53 | HO.PSYCHPN ---
Subjective Subjective Date of Service: 05/23/24 Reason For Visit: combative behaviors Interim History: fell and hit head, no loss of consciousness. calm, cooperative with care. per staff, pt c/o frequency with urination. U/A from yesterday not entirely convincing for UTI, ctx pending. eating. doing much better than at admission, overall. Mental Status Exam Mental Status Exam Patient Appearance: Appropriate Patient Orientation: Person and Situation Level of Consciousness: Awake and Appropriate Patient Behavior: Guarded and Passive Mood Description: Withdrawn Affect Description: Constricted Patient Cognition Impaired: Yes Ability to Follow Directions: Good Speech Pattern: Clear Hallucinations: None Delusions: Ideas of Reference Thought Process: Distracted and Slowed Thinking Thought Content: positive for [place] and positive for Poverty of Content Judgement: Fair Diagnostics Vital Signs (24Hr): Vital Signs - 24 hr 05/22/24 20:00 05/23/24 07:55 05/23/24 10:05 Temperature 96.9 F 97.6 F 97.0 F Pulse Rate 92 82 80 Respiratory Rate 16 18 16 Blood Pressure 137/64 129/70 158/64 H Pulse Oximetry 95 96 94 Oxygen Delivery Method Room Air Room Air BMI result Body Mass Index 19.9 Labs 05/23/24 10:35 05/23/24 10:35 Labs: Laboratory Results - last 48 hr 05/22/24 05/23/24 17:30 10:35 WBC 7.7 RBC 3.87 L Hgb 11.8 L Hct 35.5 L MCV 91.7 MCH 30.5 MCHC 33.2 RDW 13.3 Plt Count 137 L MPV 10.9 Absolute Nucleated RBC 0.000 Nucleated RBC % (auto) 0.0 Sodium 129 L Potassium 4.4 Chloride 94 L Carbon Dioxide 28 Anion Gap 11 L BUN 15 Creatinine 0.91 Estim Creat Clear Calc 42.8 Estimated GFR 60 Random Glucose 69 Calcium 8.9 Urine Color Yellow Urine Appearance Clear Urine pH 7.5 Ur Specific [place] 1.010 Urine Protein Negative Urine Glucose (UA) Negative Urine Ketones Negative Urine Blood Negative Urine Nitrite Negative Ur Leukocyte Esterase Small (1+) H Urine RBC 0-2 Urine WBC 0-5 Ur Squamous Epith Cells 0-2 Urine Bacteria None Seen Hyaline Casts 0-2 Imaging Radiology Impressions: ITS Impressions Chest X-Ray 04/21/24 14:43 IMPRESSION: Clear lungs. Electronically signed by: Micheal Barreto MD 04/21/2024 03:04 PM [facility] Medications Medications Current Medications Acetaminophen (Acetaminophen 325 Mg Tablet) 975 mg PO TID PRN PRN Reason: Fever Or Pain Last Admin: 04/25/24 20:19 Dose: 975 mg Al Hydroxide/Mg Hydroxide (Magnesium Hydrox/Alum Hydrox 30 Ml Oral.Susp) 30 ml PO Q6H PRN PRN Reason: Heartburn/Nausea Atorvastatin Calcium (Atorvastatin Calcium 20 Mg Tablet) 20 mg PO DAILY [facility] Last Admin: 05/23/24 08:04 Dose: 20 mg Bisacodyl (Bisacodyl 10 Mg Supp.Rect) 10 mg [place] DAILY PRN PRN Reason: Constipation Last Admin: 04/02/24 12:43 Dose: 10 mg Divalproex Sodium (Divalproex Sodium Sprinkles 125 Mg Cap.) 250 mg PO TID [facility] Last Admin: 05/23/24 14:25 Dose: 250 mg Donepezil HCl (Donepezil Hcl 5 Mg Tablet) 5 mg PO BEDTIME [facility] Last Admin: 05/22/24 20:14 Dose: 5 mg Levothyroxine Sodium (Levothyroxine Sodium 75 Mcg Tablet) 75 mcg PO DAILY@0600 [facility] Last Admin: 05/23/24 05:55 Dose: 75 mcg Loratadine (Loratadine 10 Mg Tablet) 10 mg PO DAILY [facility] Last Admin: 05/23/24 08:04 Dose: 10 mg Lorazepam (Lorazepam 0.5 Mg Tablet) 0.5 mg PO TID PRN PRN Reason: Anxiety Last Admin: 05/20/24 01:17 Dose: 0.5 mg Magnesium Hydroxide (Milk Of Magnesia 30 Ml Oral.Susp) 30 ml PO DAILY PRN PRN Reason: Constipation Last Admin: 03/28/24 20:36 Dose: 30 ml Olanzapine (Olanzapine 5 Mg Tablet) 5 mg PO Q6H PRN PRN Reason: agitation Last Admin: 05/22/24 00:49 Dose: 5 mg Olanzapine (Olanzapine 2.5 Mg Tablet) 2.5 mg PO BID [facility] Last Admin: 05/23/24 08:03 Dose: 2.5 mg Omeprazole (Omeprazole 20 Mg Capsule.) 20 mg PO DAILY@0700 [facility] Last Admin: 05/23/24 05:55 Dose: 20 mg Oxybutynin Chloride (Oxybutynin Chloride Er 5 Mg Tab.Er.24) 15 mg PO DAILY [facility] Last Admin: 05/23/24 08:03 Dose: 15 mg Trazodone HCl (Trazodone Hcl 50 Mg Tablet) 50 mg PO BEDTIME PRN PRN Reason: sleep Last Admin: 05/22/24 00:50 Dose: 50 mg Trazodone HCl (Trazodone Hcl 50 Mg Tablet) 50 mg PO BEDTIME [facility] Last Admin: 05/22/24 20:14 Dose: 50 mg Allergies Allergies Allergy/AdvReac Type Severity Reaction Status Date / Time sulfamethoxazole Allergy Unknown Verified 03/03/24 14:32 [From Sulfamethoxazole-Trimethoprim] trimethoprim Allergy Unknown Verified 03/03/24 14:32 [From Sulfamethoxazole-Trimethoprim] Assessment & Plan Assessment & Plan (1) Major neurocognitive disorder due to Alzheimer's disease, without behavioral disturbance: Status: Acute Code(s): G30.9 - Alzheimer's disease, unspecified; F02.80 - Dementia in other diseases classified elsewhere, unspecified severity, without behavioral disturbance, psychotic disturbance, mood disturbance, and anxiety Plan Elderly female with a past history of Alzheimer's, recently in a subacute rehab due to subdural hematoma referred for exacerbation of agitation. The patient is a very poor historian unable to provide any details still very agitated. Plan 03/20 continue tx. will check ammonia and depakote level on 03/22/24 at 7am. 03/21: continue current management and treatment plan. check labs tomorrow. 03/22: Continue current management and treatment plan. Check Depakote level and ammonia on 03/23. 03/23 increase trazodone up to 25 p.o. t.i.d. to target anxiety. 03/24 keep same treatment. 03/25 keep same treatment 03/26 keep same treatment 03/27 trazodone will be lowered to 12.5 p.o. t.i.d. 03/29/24 Increase lorazepam 0.5 t.i.d. p.r.n. 03/30 keep same treatment. 03/31 keep same treatment 04/01 keep same treatment 04/02 keep same treatment 04/03 Will schedule trazodone 50mg po qhs (slept only 2 hrs.), increase olanzapine 2.5mg po TID. 04/04 more redirectable from changes of meds yesterday- 04/05- CTP 04/06- continue plan of care 04/07 continue same treatment 04/08 keep same treatment 04/09 keep same treatment 04/10 paperwork for information of healthcare proxy was done. 04/11 continue current plans and regimen 04/12: Continue current regimen and plans. 04/13: Continue current regimen and plans 04/14 continue same treatment 04/15 continue same treatment 04/16 continue same treatment 04/17 today we have the court hearing for affirmation of healthcare proxy. 04/18-04/19 continue tx plan -labs drawn and pt with DIANA and mild hyponatremia; -consult placed; encouraging fluid 04/20 keep same treatment 04/21 keep same treatment. 04/22 she is slightly over-sedated so we are changing Zyprexa to 2.5 p.o. b.i.d.. Blood work came back with better creatinine. 04/23 keep same treatment. 04/24 keep same treatment, waiting for placement. 04/25: no change in presentation. continue current mgmt. 04/26: orthostatic hypotension, fell last night. remains on 1:1. encourage fluids, continue current mgmt. 04/27 keep same treatment 04/28 keep same treatment 04/29 keep same treatment 04/30 continue tx. 05/01 continue tx. 05/02 noted decrease in H&H, RN had reported blood in stool, ordered occult blood test x 3, started on PPI may need GI consult. 05/03 continue current tx. pending GI consult. 05/04 continue tx. repeat H&H improved. 05/05 continue tx. 05/06 continue tx. 05/07/24 Continue plan of care 05/08 continue tx. awaiting placement. 05/09/2024 Continue plan of care no major changes discharge planning 05/11 contine tx. 05/12 continue tx. 05/13 ordered labs/UA, head CT pt presented later in the day with AMS. 05/14 back to baseline mentation. labs, head CT unremarkable. 05/16: continue current management and treatment plan. 05/17: continue current management and treatment plan. 05/18 keep same treatment 05/19 keep same treatment 05/20 keep same treatment 05/21 keep same treatment 05/22 keep same treatment 05/23: fall with head strike, witnessed by staff. hospitalist consult placed, head CT ordered. head CT NEG for acute changes, hospitalist exam benign. hospitalist recs noted: avoid oral salt restriction, and avoid excess po free fluids. otherwise continue current mgmt. Reason for continued inpatient stay Substantial Risk for: inability to function Time Spent With Patient Time: Total time managing care of this patient today ____ minutes.
[2024-05-23 20:00] VITALS: BP 114/65; PULSE 66; RESP 16; TEMP 36.5; O2SAT 97
[2024-05-23] MEDS: Donepezil HCl 5 MG TABLET PO (20:37)
[2024-05-23] MEDS: traZODone HCL 50 MG TABLET PO ×2 (20:37→22:20)
[2024-05-23 21:48] LABS: Osmolality Urine 194 mosm/kg (373-1093)
[2024-05-23] MEDS: OLANZapine 5 MG TABLET PO (22:20)
[2024-05-24] MEDS: Levothyroxine Sodium 75 MCG TABLET PO (06:12)
[2024-05-24] MEDS: Omeprazole 20 MG CAPSULE.DR PO (06:12)
[2024-05-24 08:00] VITALS: BP 122/74; PULSE 82; RESP 16; TEMP 36.7; O2SAT 97
[2024-05-24] MEDS: OLANZapine 2.5 MG TABLET PO ×2 (08:29→20:09)
[2024-05-24] MEDS: Loratadine 10 MG TABLET PO (08:29)
[2024-05-24] MEDS: Divalproex Sodium Sprinkles 125 MG CAP.DR.SPR 250 MG PO ×3 (08:29→20:09)
[2024-05-24] MEDS: oxyBUTYnin chloride ER 5 MG TAB.ER.24 15 MG PO (08:29)
[2024-05-24] MEDS: Atorvastatin Calcium 20 MG TABLET PO (08:30)
--- NOTE | 2024-05-24 16:49 | HO.PSYCHPN ---
Subjective Subjective Date of Service: 05/24/24 Reason For Visit: combative behaviors Interim History: limited ability to interact. no complaints or requests. per staff, remains on 1:1 for falls risk. sleeping, eating, taking meds. no issues. Mental Status Exam Mental Status Exam Patient Appearance: Appropriate Patient Orientation: Person and Situation Level of Consciousness: Awake and Appropriate Patient Behavior: Guarded and Passive Mood Description: Withdrawn Affect Description: Constricted Patient Cognition Impaired: Yes Ability to Follow Directions: Good Speech Pattern: Clear Hallucinations: None Delusions: Ideas of Reference Thought Process: Distracted and Slowed Thinking Thought Content: positive for [place] and positive for Poverty of Content Judgement: Fair Diagnostics Vital Signs (24Hr): Vital Signs - 24 hr 05/23/24 20:00 05/24/24 08:00 Temperature 97.7 F 98.1 F Pulse Rate 66 82 Respiratory Rate 16 16 Blood Pressure 114/65 122/74 Pulse Oximetry 97 97 Oxygen Delivery Method Room Air Room Air BMI result Body Mass Index 19.9 Labs 05/23/24 10:35 05/23/24 10:35 Labs: Laboratory Results - last 48 hr 05/22/24 05/23/24 05/23/24 17:30 10:35 21:00 WBC 7.7 RBC 3.87 L Hgb 11.8 L Hct 35.5 L MCV 91.7 MCH 30.5 MCHC 33.2 RDW 13.3 Plt Count 137 L MPV 10.9 Absolute Nucleated RBC 0.000 Nucleated RBC % (auto) 0.0 Sodium 129 L Potassium 4.4 Chloride 94 L Carbon Dioxide 28 Anion Gap 11 L BUN 15 Creatinine 0.91 Estim Creat Clear Calc 42.8 Estimated GFR 60 Random Glucose 69 Calcium 8.9 Urine Color Yellow Urine Appearance Clear Urine pH 7.5 Ur Specific Terry 1.010 Urine Protein Negative Urine Glucose (UA) Negative Urine Ketones Negative Urine Blood Negative Urine Nitrite Negative Ur Leukocyte Esterase Small (1+) H Urine RBC 0-2 Urine WBC 0-5 Ur Squamous Epith Cells 0-2 Urine Bacteria None Seen Hyaline Casts 0-2 Urine Osmolality 194 L Ur Random Sodium 25.0 Imaging Radiology Impressions: ITS Impressions Chest X-Ray 04/21/24 14:43 IMPRESSION: Clear lungs. Electronically signed by: Micheal Barreto MD 04/21/2024 03:04 PM [facility] [place] Medications Medications Current Medications Acetaminophen (Acetaminophen 325 Mg Tablet) 975 mg PO TID PRN PRN Reason: Fever Or Pain Last Admin: 04/25/24 20:19 Dose: 975 mg Al Hydroxide/Mg Hydroxide (Magnesium Hydrox/Alum Hydrox 30 Ml Oral.Susp) 30 ml PO Q6H PRN PRN Reason: Heartburn/Nausea Atorvastatin Calcium (Atorvastatin Calcium 20 Mg Tablet) 20 mg PO DAILY [facility] Last Admin: 05/24/24 08:30 Dose: 20 mg Bisacodyl (Bisacodyl 10 Mg Supp.Rect) 10 mg PA DAILY PRN PRN Reason: Constipation Last Admin: 04/02/24 12:43 Dose: 10 mg Divalproex Sodium (Divalproex Sodium Sprinkles 125 Mg Cap.) 250 mg PO TID [facility] Last Admin: 05/24/24 15:09 Dose: 250 mg Donepezil HCl (Donepezil Hcl 5 Mg Tablet) 5 mg PO BEDTIME [facility] Last Admin: 05/23/24 20:37 Dose: 5 mg Levothyroxine Sodium (Levothyroxine Sodium 75 Mcg Tablet) 75 mcg PO DAILY@0600 [facility] Last Admin: 05/24/24 06:12 Dose: 75 mcg Loratadine (Loratadine 10 Mg Tablet) 10 mg PO DAILY [facility] Last Admin: 05/24/24 08:29 Dose: 10 mg Lorazepam (Lorazepam 0.5 Mg Tablet) 0.5 mg PO TID PRN PRN Reason: Anxiety Last Admin: 05/20/24 01:17 Dose: 0.5 mg Magnesium Hydroxide (Milk Of Magnesia 30 Ml Oral.Susp) 30 ml PO DAILY PRN PRN Reason: Constipation Last Admin: 03/28/24 20:36 Dose: 30 ml Olanzapine (Olanzapine 5 Mg Tablet) 5 mg PO Q6H PRN PRN Reason: agitation Last Admin: 05/23/24 22:20 Dose: 5 mg Olanzapine (Olanzapine 2.5 Mg Tablet) 2.5 mg PO BID [facility] Last Admin: 05/24/24 08:29 Dose: 2.5 mg Omeprazole (Omeprazole 20 Mg Capsule.) 20 mg PO DAILY@0700 [facility] Last Admin: 05/24/24 06:12 Dose: 20 mg Oxybutynin Chloride (Oxybutynin Chloride Er 5 Mg Tab.Er.24) 15 mg PO DAILY [facility] Last Admin: 05/24/24 08:29 Dose: 15 mg Trazodone HCl (Trazodone Hcl 50 Mg Tablet) 50 mg PO BEDTIME PRN PRN Reason: sleep Last Admin: 05/23/24 22:20 Dose: 50 mg Trazodone HCl (Trazodone Hcl 50 Mg Tablet) 50 mg PO BEDTIME [facility] Last Admin: 05/23/24 20:37 Dose: 50 mg Allergies Allergies Allergy/AdvReac Type Severity Reaction Status Date / Time sulfamethoxazole Allergy Unknown Verified 03/03/24 14:32 [From Sulfamethoxazole-Trimethoprim] trimethoprim Allergy Unknown Verified 03/03/24 14:32 [From Sulfamethoxazole-Trimethoprim] Assessment & Plan Assessment & Plan (1) Major neurocognitive disorder due to Alzheimer's disease, without behavioral disturbance: Status: Acute Code(s): G30.9 - Alzheimer's disease, unspecified; F02.80 - Dementia in other diseases classified elsewhere, unspecified severity, without behavioral disturbance, psychotic disturbance, mood disturbance, and anxiety Plan Elderly female with a past history of Alzheimer's, recently in a subacute rehab due to subdural hematoma referred for exacerbation of agitation. The patient is a very poor historian unable to provide any details still very agitated. Plan 03/20 continue tx. will check ammonia and depakote level on 03/22/24 at 7am. 03/21: continue current management and treatment plan. check labs tomorrow. 03/22: Continue current management and treatment plan. Check Depakote level and ammonia on 03/23. 03/23 increase trazodone up to 25 p.o. t.i.d. to target anxiety. 03/24 keep same treatment. 03/25 keep same treatment 03/26 keep same treatment 03/27 trazodone will be lowered to 12.5 p.o. t.i.d. 03/29/24 Increase lorazepam 0.5 t.i.d. p.r.n. 03/30 keep same treatment. 03/31 keep same treatment 04/01 keep same treatment 04/02 keep same treatment 04/03 Will schedule trazodone 50mg po qhs (slept only 2 hrs.), increase olanzapine 2.5mg po TID. 04/04 more redirectable from changes of meds yesterday- 04/05- CTP 2/10- continue plan of care 04/07 continue same treatment 04/08 keep same treatment 04/09 keep same treatment 04/10 paperwork for information of healthcare proxy was done. 04/11 continue current plans and regimen 04/12: Continue current regimen and plans. 04/13: Continue current regimen and plans 04/14 continue same treatment 04/15 continue same treatment 04/16 continue same treatment 04/17 today we have the court hearing for affirmation of healthcare proxy. 04/18-04/19 continue tx plan -labs drawn and pt with DIANA and mild hyponatremia; -consult placed; encouraging fluid 04/20 keep same treatment 04/21 keep same treatment. 04/22 she is slightly over-sedated so we are changing Zyprexa to 2.5 p.o. b.i.d.. Blood work came back with better creatinine. 04/23 keep same treatment. 04/24 keep same treatment, waiting for placement. 04/25: no change in presentation. continue current mgmt. 04/26: orthostatic hypotension, fell last night. remains on 1:1. encourage fluids, continue current mgmt. 04/27 keep same treatment 04/28 keep same treatment 04/29 keep same treatment 04/30 continue tx. 05/01 continue tx. 05/02 noted decrease in H&H, RN had reported blood in stool, ordered occult blood test x 3, started on PPI may need GI consult. 05/03 continue current tx. pending GI consult. 05/04 continue tx. repeat H&H improved. 05/05 continue tx. 05/06 continue tx. 05/07/24 Continue plan of care 05/08 continue tx. awaiting placement. 05/09/2024 Continue plan of care no major changes discharge planning 05/11 contine tx. 05/12 continue tx. 05/13 ordered labs/UA, head CT pt presented later in the day with AMS. 05/14 back to baseline mentation. labs, head CT unremarkable. 05/16: continue current management and treatment plan. 05/17: continue current management and treatment plan. 05/18 keep same treatment 05/19 keep same treatment 05/20 keep same treatment 05/21 keep same treatment 05/22 keep same treatment 05/23: fall with head strike, witnessed by staff. hospitalist consult placed, head CT ordered. head CT NEG for acute changes, hospitalist exam benign. hospitalist recs noted: avoid oral salt restriction, and avoid excess po free fluids. otherwise continue current mgmt. 05/24: per hospitalist, fluid restrict to 1.5-2L for hyponatremia. remains on 1:1 for fall risk. no concerning sequelae from yesterday's fall. continue current mgmt. Reason for continued inpatient stay Substantial Risk for: inability to function Time Spent With Patient Time: Total time managing care of this patient today ____ minutes.
[2024-05-24 20:00] VITALS: BP 146/80; PULSE 91; RESP 18; TEMP 36.6; O2SAT 95
[2024-05-24] MEDS: traZODone HCL 50 MG TABLET PO ×2 (20:09→21:58)
[2024-05-24] MEDS: Donepezil HCl 5 MG TABLET PO (20:09)
[2024-05-24] MEDS: LORazepam 0.5 MG TABLET PO (21:58)
[2024-05-25] MEDS: Omeprazole 20 MG CAPSULE.DR PO (05:33)
[2024-05-25] MEDS: Levothyroxine Sodium 75 MCG TABLET PO (05:33)
[2024-05-25 08:00] VITALS: BP 149/68; PULSE 64; RESP 18; TEMP 36.2; O2SAT 97
[2024-05-25] MEDS: Loratadine 10 MG TABLET PO (08:29)
[2024-05-25] MEDS: oxyBUTYnin chloride ER 5 MG TAB.ER.24 15 MG PO (08:29)
[2024-05-25] MEDS: OLANZapine 2.5 MG TABLET PO ×2 (08:29→20:06)
[2024-05-25] MEDS: Atorvastatin Calcium 20 MG TABLET PO (08:29)
[2024-05-25] MEDS: Divalproex Sodium Sprinkles 125 MG CAP.DR.SPR 250 MG PO ×3 (08:29→20:06)
--- NOTE | 2024-05-25 14:35 | HO.PSYCHPN ---
Subjective Subjective Date of Service: 05/25/24 Reason For Visit: combative behaviors Interim History: very [place]. rousable to loud voice. asking to go home, otherwise no questions or complaints. per staff, visible in milieu. fell over w/e, hit head on bathroom wall. awaiting legal process for conservatorship, to get [facility]. takes 2-3 months. Mental Status Exam Mental Status Exam Patient Appearance: Appropriate Patient Orientation: Person and Situation Level of Consciousness: Appropriate Patient Behavior: Guarded and Passive Mood Description: Withdrawn Affect Description: Constricted Patient Cognition Impaired: Yes Ability to Follow Directions: Good Speech Pattern: Clear Hallucinations: None Delusions: Ideas of Reference Thought Process: Distracted and Slowed Thinking Thought Content: positive for [place] and positive for Poverty of Content Judgement: Fair Diagnostics Vital Signs (24Hr): Vital Signs - 24 hr 05/24/24 20:00 05/25/24 08:00 Temperature 97.8 F 97.1 F Pulse Rate 91 64 Respiratory Rate 18 18 Blood Pressure 146/80 H 149/68 H Pulse Oximetry 95 97 Oxygen Delivery Method Room Air Room Air BMI result Body Mass Index 19.9 Labs 05/23/24 10:35 05/23/24 10:35 Labs: Laboratory Results - last 48 hr 05/23/24 21:00 Urine Osmolality 194 L Ur Random Sodium 25.0 Imaging Radiology Impressions: ITS Impressions Chest X-Ray 04/21/24 14:43 IMPRESSION: Clear lungs. Electronically signed by: Micheal Barreto MD 04/21/2024 03:04 PM [facility] [place] Medications Medications Current Medications Acetaminophen (Acetaminophen 325 Mg Tablet) 975 mg PO TID PRN PRN Reason: Fever Or Pain Last Admin: 04/25/24 20:19 Dose: 975 mg Al Hydroxide/Mg Hydroxide (Magnesium Hydrox/Alum Hydrox 30 Ml Oral.Susp) 30 ml PO Q6H PRN PRN Reason: Heartburn/Nausea Atorvastatin Calcium (Atorvastatin Calcium 20 Mg Tablet) 20 mg PO DAILY [facility] Last Admin: 05/25/24 08:29 Dose: 20 mg Bisacodyl (Bisacodyl 10 Mg Supp.Rect) 10 mg PA DAILY PRN PRN Reason: Constipation Last Admin: 04/02/24 12:43 Dose: 10 mg Divalproex Sodium (Divalproex Sodium Sprinkles 125 Mg [place]) 250 mg PO TID [facility] Last Admin: 05/25/24 14:26 Dose: 250 mg Donepezil HCl (Donepezil Hcl 5 Mg Tablet) 5 mg PO BEDTIME [facility] Last Admin: 05/24/24 20:09 Dose: 5 mg Levothyroxine Sodium (Levothyroxine Sodium 75 Mcg Tablet) 75 mcg PO DAILY@0600 [facility] Last Admin: 05/25/24 05:33 Dose: 75 mcg Loratadine (Loratadine 10 Mg Tablet) 10 mg PO DAILY [facility] Last Admin: 05/25/24 08:29 Dose: 10 mg Lorazepam (Lorazepam 0.5 Mg Tablet) 0.5 mg PO TID PRN PRN Reason: Anxiety Last Admin: 05/24/24 21:58 Dose: 0.5 mg Magnesium Hydroxide (Milk Of Magnesia 30 Ml Oral.Susp) 30 ml PO DAILY PRN PRN Reason: Constipation Last Admin: 03/28/24 20:36 Dose: 30 ml Olanzapine (Olanzapine 5 Mg Tablet) 5 mg PO Q6H PRN PRN Reason: agitation Last Admin: 05/23/24 22:20 Dose: 5 mg Olanzapine (Olanzapine 2.5 Mg Tablet) 2.5 mg PO BID [facility] Last Admin: 05/25/24 08:29 Dose: 2.5 mg Omeprazole (Omeprazole 20 Mg Capsule.) 20 mg PO DAILY@0700 [facility] Last Admin: 05/25/24 05:33 Dose: 20 mg Oxybutynin Chloride (Oxybutynin Chloride Er 5 Mg Tab.Er.24) 15 mg PO DAILY [facility] Last Admin: 05/25/24 08:29 Dose: 15 mg Trazodone HCl (Trazodone Hcl 50 Mg Tablet) 50 mg PO BEDTIME PRN PRN Reason: sleep Last Admin: 05/24/24 21:58 Dose: 50 mg Trazodone HCl (Trazodone Hcl 50 Mg Tablet) 50 mg PO BEDTIME [facility] Last Admin: 05/24/24 20:09 Dose: 50 mg Allergies Allergies Allergy/AdvReac Type Severity Reaction Status Date / Time sulfamethoxazole Allergy Unknown Verified 03/03/24 14:32 [From Sulfamethoxazole-Trimethoprim] trimethoprim Allergy Unknown Verified 03/03/24 14:32 [From Sulfamethoxazole-Trimethoprim] Assessment & Plan Assessment & Plan (1) Major neurocognitive disorder due to Alzheimer's disease, without behavioral disturbance: Status: Acute Code(s): G30.9 - Alzheimer's disease, unspecified; F02.80 - Dementia in other diseases classified elsewhere, unspecified severity, without behavioral disturbance, psychotic disturbance, mood disturbance, and anxiety Plan Elderly female with a past history of Alzheimer's, recently in a subacute rehab due to subdural hematoma referred for exacerbation of agitation. The patient is a very poor historian unable to provide any details still very agitated. Plan 03/20 continue tx. will check ammonia and depakote level on 03/22/24 at 7am. 03/21: continue current management and treatment plan. check labs tomorrow. 03/22: Continue current management and treatment plan. Check Depakote level and ammonia on 03/23. 03/23 increase trazodone up to 25 p.o. t.i.d. to target anxiety. 03/24 keep same treatment. 03/25 keep same treatment 03/26 keep same treatment 03/27 trazodone will be lowered to 12.5 p.o. t.i.d. 03/29/24 Increase lorazepam 0.5 t.i.d. p.r.n. 03/30 keep same treatment. 03/31 keep same treatment 04/01 keep same treatment 04/02 keep same treatment 04/03 Will schedule trazodone 50mg po qhs (slept only 2 hrs.), increase olanzapine 2.5mg po TID. 04/04 more redirectable from changes of meds yesterday- 04/05- CTP 04/06- continue plan of care 04/07 continue same treatment 04/08 keep same treatment 04/09 keep same treatment 04/10 paperwork for information of healthcare proxy was done. 04/11 continue current plans and regimen 04/12: Continue current regimen and plans. 04/13: Continue current regimen and plans 04/14 continue same treatment 04/15 continue same treatment 04/16 continue same treatment 04/17 today we have the court hearing for affirmation of healthcare proxy. 04/18-04/19 continue tx plan -labs drawn and pt with DIANA and mild hyponatremia; -consult placed; encouraging fluid 04/20 keep same treatment 04/21 keep same treatment. 04/22 she is slightly over-sedated so we are changing Zyprexa to 2.5 p.o. b.i.d.. Blood work came back with better creatinine. 04/23 keep same treatment. 04/24 keep same treatment, waiting for placement. 04/25: no change in presentation. continue current mgmt. 04/26: orthostatic hypotension, fell last night. remains on 1:1. encourage fluids, continue current mgmt. 04/27 keep same treatment 04/28 keep same treatment 04/29 keep same treatment 04/30 continue tx. 05/01 continue tx. 05/02 noted decrease in H&H, RN had reported blood in stool, ordered occult blood test x 3, started on PPI may need GI consult. 05/03 continue current tx. pending GI consult. 05/04 continue tx. repeat H&H improved. 05/05 continue tx. 05/06 continue tx. 05/07/24 Continue plan of care 05/08 continue tx. awaiting placement. 05/09/2024 Continue plan of care no major changes discharge planning 05/11 contine tx. 05/12 continue tx. 05/13 ordered labs/UA, head CT pt presented later in the day with AMS. 05/14 back to baseline mentation. labs, head CT unremarkable. 05/16: continue current management and treatment plan. 05/17: continue current management and treatment plan. 05/18 keep same treatment 05/19 keep same treatment 05/20 keep same treatment 05/21 keep same treatment 05/22 keep same treatment 05/23: fall with head strike, witnessed by staff. hospitalist consult placed, head CT ordered. head CT NEG for acute changes, hospitalist exam benign. hospitalist recs noted: avoid oral salt restriction, and avoid excess po free fluids. otherwise continue current mgmt. 05/24: per hospitalist, fluid restrict to 1.5-2L for hyponatremia. remains on 1:1 for fall risk. no concerning sequelae from yesterday's fall. continue current mgmt. 05/25: appears to be at baseline. awaiting conservatorship so [facility] can be obtained so pt can be sent to group home. nicole current mgmt. Reason for continued inpatient stay Substantial Risk for: inability to function Time Spent With Patient Time: Total time managing care of this patient today ____ minutes.
[2024-05-25 20:00] VITALS: BP 153/65; PULSE 77; RESP 16; TEMP 36.6; O2SAT 90
[2024-05-25] MEDS: traZODone HCL 50 MG TABLET PO ×2 (20:05→23:44)
[2024-05-25] MEDS: LORazepam 0.5 MG TABLET PO (20:06)
[2024-05-25] MEDS: Donepezil HCl 5 MG TABLET PO (20:06)
[2024-05-25] MEDS: OLANZapine 5 MG TABLET PO (23:44)
[2024-05-26] MEDS: Levothyroxine Sodium 75 MCG TABLET PO (05:59)
[2024-05-26] MEDS: Omeprazole 20 MG CAPSULE.DR PO (05:59)
[2024-05-26 09:04] VITALS: BP 129/76; PULSE 79; RESP 16; TEMP 36.8; O2SAT 98
[2024-05-26] MEDS: OLANZapine 2.5 MG TABLET PO ×2 (09:05→20:28)
[2024-05-26] MEDS: Loratadine 10 MG TABLET PO (09:05)
[2024-05-26] MEDS: oxyBUTYnin chloride ER 5 MG TAB.ER.24 15 MG PO (09:05)
[2024-05-26] MEDS: Atorvastatin Calcium 20 MG TABLET PO (09:06)
[2024-05-26] MEDS: Divalproex Sodium Sprinkles 125 MG CAP.DR.SPR 250 MG PO ×3 (09:06→20:28)
--- NOTE | 2024-05-26 09:27 | P.PNPSI_ITS ---
Subjective Subjective Date of Service: 05/26/24 Reason For Visit: combative behaviors Subjective Notes: Conditional Voluntary Healthcare Proxy: Yes Interim History: Pt slept through the night. She is ambulating with walker. She tells this blog writer I want to go home, when can I go home! She denies any physical pain. She is taking medications as prescribed. repeat of cmp shows improved Na, 136 today. Diagnostics Vital Signs (24Hr): Vital Signs - 24 hr 05/25/24 20:00 05/26/24 09:04 Temperature 97.8 F 98.2 F Pulse Rate 77 79 Respiratory Rate 16 16 Blood Pressure 153/65 H 129/76 Pulse Oximetry 90 L 98 Oxygen Delivery Method Room Air Room Air BMI result Body Mass Index 19.9 Labs 05/23/24 10:35 05/26/24 12:25 Imaging Radiology Impressions: ITS Impressions Chest X-Ray 04/21/24 14:43 IMPRESSION: Clear lungs. Electronically signed by: Micheal Barreto MD 04/21/2024 03:04 PM [facility] [place] Medications Medications Current Medications Acetaminophen (Acetaminophen 325 Mg Tablet) 975 mg PO TID PRN PRN Reason: Fever Or Pain Last Admin: 04/25/24 20:19 Dose: 975 mg Al Hydroxide/Mg Hydroxide (Magnesium Hydrox/Alum Hydrox 30 Ml Oral.Susp) 30 ml PO Q6H PRN PRN Reason: Heartburn/Nausea Atorvastatin Calcium (Atorvastatin Calcium 20 Mg Tablet) 20 mg PO DAILY [facility] Last Admin: 05/26/24 09:06 Dose: 20 mg Bisacodyl (Bisacodyl 10 Mg Supp.Rect) 10 mg [place] DAILY PRN PRN Reason: Constipation Last Admin: 04/02/24 12:43 Dose: 10 mg Divalproex Sodium (Divalproex Sodium Sprinkles 125 Mg ) 250 mg PO TID [facility] Last Admin: 05/26/24 09:06 Dose: 250 mg Donepezil HCl (Donepezil Hcl 5 Mg Tablet) 5 mg PO BEDTIME [facility] Last Admin: 05/25/24 20:06 Dose: 5 mg Levothyroxine Sodium (Levothyroxine Sodium 75 Mcg Tablet) 75 mcg PO DAILY@0600 [facility] Last Admin: 05/26/24 05:59 Dose: 75 mcg Loratadine (Loratadine 10 Mg Tablet) 10 mg PO DAILY [facility] Last Admin: 05/26/24 09:05 Dose: 10 mg Lorazepam (Lorazepam 0.5 Mg Tablet) 0.5 mg PO TID PRN PRN Reason: Anxiety Last Admin: 05/25/24 20:06 Dose: 0.5 mg Magnesium Hydroxide (Milk Of Magnesia 30 Ml Oral.Susp) 30 ml PO DAILY PRN PRN Reason: Constipation Last Admin: 03/28/24 20:36 Dose: 30 ml Olanzapine (Olanzapine 5 Mg Tablet) 5 mg PO Q6H PRN PRN Reason: agitation Last Admin: 05/25/24 23:44 Dose: 5 mg Olanzapine (Olanzapine 2.5 Mg Tablet) 2.5 mg PO BID [facility] Last Admin: 05/26/24 09:05 Dose: 2.5 mg Omeprazole (Omeprazole 20 Mg Capsule.Dr) 20 mg PO DAILY@0700 [facility] Last Admin: 05/26/24 05:59 Dose: 20 mg Oxybutynin Chloride (Oxybutynin Chloride Er 5 Mg Tab.Er.24) 15 mg PO DAILY [facility] Last Admin: 05/26/24 09:05 Dose: 15 mg Trazodone HCl (Trazodone Hcl 50 Mg Tablet) 50 mg PO BEDTIME PRN PRN Reason: sleep Last Admin: 05/25/24 23:44 Dose: 50 mg Trazodone HCl (Trazodone Hcl 50 Mg Tablet) 50 mg PO BEDTIME [facility] Last Admin: 05/25/24 20:05 Dose: 50 mg Allergies Allergies Allergy/AdvReac Type Severity Reaction Status Date / Time sulfamethoxazole Allergy Unknown Verified 03/03/24 14:32 [From Sulfamethoxazole-Trimethoprim] trimethoprim Allergy Unknown Verified 03/03/24 14:32 [From Sulfamethoxazole-Trimethoprim] Assessment & Plan Assessment & Plan (1) Major neurocognitive disorder due to Alzheimer's disease, without behavioral disturbance: Status: Acute Code(s): G30.9 - Alzheimer's disease, unspecified; F02.80 - Dementia in other diseases classified elsewhere, unspecified severity, without behavioral disturbance, psychotic disturbance, mood disturbance, and anxiety Plan Elderly female with a past history of Alzheimer's, recently in a subacute rehab due to subdural hematoma referred for exacerbation of agitation. The patient is a very poor historian unable to provide any details still very agitated. Plan 03/20 continue tx. will check ammonia and depakote level on 03/22/24 at 7am. 03/21: continue current management and treatment plan. check labs tomorrow. 03/22: Continue current management and treatment plan. Check Depakote level and ammonia on 03/23. 03/23 increase trazodone up to 25 p.o. t.i.d. to target anxiety. 03/24 keep same treatment. 03/25 keep same treatment 03/26 keep same treatment 03/27 trazodone will be lowered to 12.5 p.o. t.i.d. 03/29/24 Increase lorazepam 0.5 t.i.d. p.r.n. 03/30 keep same treatment. 03/31 keep same treatment 04/01 keep same treatment 04/02 keep same treatment 04/03 Will schedule trazodone 50mg po qhs (slept only 2 hrs.), increase olanzapine 2.5mg po TID. 04/04 more redirectable from changes of meds yesterday- 04/05- CTP 04/06- continue plan of care 04/07 continue same treatment 04/08 keep same treatment 04/09 keep same treatment 04/10 paperwork for information of healthcare proxy was done. 04/11 continue current plans and regimen 04/12: Continue current regimen and plans. 04/13: Continue current regimen and plans 04/14 continue same treatment 04/15 continue same treatment 04/16 continue same treatment 04/17 today we have the court hearing for affirmation of healthcare proxy. 04/18-04/19 continue tx plan -labs drawn and pt with DIANA and mild hyponatremia; -consult placed; encouraging fluid 04/20 keep same treatment 04/21 keep same treatment. 04/22 she is slightly over-sedated so we are changing Zyprexa to 2.5 p.o. b.i.d.. Blood work came back with better creatinine. 04/23 keep same treatment. 04/24 keep same treatment, waiting for placement. 04/25: no change in presentation. continue current mgmt. 3/2: orthostatic hypotension, fell last night. remains on 1:1. encourage fluids, continue current mgmt. 04/27 keep same treatment 04/28 keep same treatment 04/29 keep same treatment 04/30 continue tx. 05/01 continue tx. 05/02 noted decrease in H&H, RN had reported blood in stool, ordered occult blood test x 3, started on PPI may need GI consult. 05/03 continue current tx. pending GI consult. 05/04 continue tx. repeat H&H improved. 05/05 continue tx. 05/06 continue tx. 05/07/24 Continue plan of care 05/08 continue tx. awaiting placement. 05/09/2024 Continue plan of care no major changes discharge planning 05/11 contine tx. 05/12 continue tx. 05/13 ordered labs/UA, head CT pt presented later in the day with AMS. 05/14 back to baseline mentation. labs, head CT unremarkable. 05/16: continue current management and treatment plan. 05/17: continue current management and treatment plan. 05/18 keep same treatment 05/19 keep same treatment 05/20 keep same treatment 05/21 keep same treatment 05/22 keep same treatment 05/23: fall with head strike, witnessed by staff. hospitalist consult placed, head CT ordered. head CT NEG for acute changes, hospitalist exam benign. hospitalist recs noted: avoid oral salt restriction, and avoid excess po free fluids. otherwise continue current mgmt. 05/24: per hospitalist, fluid restrict to 1.5-2L for hyponatremia. remains on 1:1 for fall risk. no concerning sequelae from yesterday's fall. continue current mgmt. 05/25: appears to be at baseline. awaiting conservatorship so [facility] can be obtained so [facility]. contiknue current mgmt. 05/26 repeat cmp, shows improved Na 136. continue fluid restriction. BP stable. Reason for continued inpatient stay Substantial Risk for: inability to function Time Spent With Patient Time: Total time managing care of this patient today ____ minutes.
--- NOTE | 2024-05-26 10:53 | HO.PSYCHPN ---
Subjective Subjective Date of Service: 05/26/24 Reason For Visit: combative behaviors Subjective Notes: Conditional Voluntary Healthcare Proxy: Yes Interim History: Pt slept through the night. She is ambulating with walker. Patient quite anxious regarding discharge planning and returning home. Medication Compliance: Yes Mental Status Exam Mental Status Exam Patient Appearance: Appropriate Patient Orientation: Person and Situation Level of Consciousness: Appropriate Patient Behavior: Guarded and Passive Mood Description: Withdrawn Affect Description: Constricted Patient Cognition Impaired: Yes Ability to Follow Directions: Good Speech Pattern: Clear Hallucinations: None Delusions: Ideas of Reference Thought Process: Distracted and Slowed Thinking Thought Content: positive for [place] and positive for Poverty of Content Judgement: Fair Diagnostics Vital Signs (24Hr): Vital Signs - 24 hr 05/25/24 20:00 05/26/24 09:04 Temperature 97.8 F 98.2 F Pulse Rate 77 79 Respiratory Rate 16 16 Blood Pressure 153/65 H 129/76 Pulse Oximetry 90 L 98 Oxygen Delivery Method Room Air Room Air BMI result Body Mass Index 19.9 Labs 05/23/24 10:35 05/26/24 12:25 Imaging Radiology Impressions: ITS Impressions Chest X-Ray 04/21/24 14:43 IMPRESSION: Clear lungs. Electronically signed by: Micheal Barreto MD 04/21/2024 03:04 PM [facility] Medications Medications Current Medications Acetaminophen (Acetaminophen 325 Mg Tablet) 975 mg PO TID PRN PRN Reason: Fever Or Pain Last Admin: 04/25/24 20:19 Dose: 975 mg Al Hydroxide/Mg Hydroxide (Magnesium Hydrox/Alum Hydrox 30 Ml Oral.Susp) 30 ml PO Q6H PRN PRN Reason: Heartburn/Nausea Atorvastatin Calcium (Atorvastatin Calcium 20 Mg Tablet) 20 mg PO DAILY COUNT INCLUDES THE [facility] Last Admin: 05/26/24 09:06 Dose: 20 mg Bisacodyl (Bisacodyl 10 Mg Supp.Rect) 10 mg IN DAILY PRN PRN Reason: Constipation Last Admin: 04/02/24 12:43 Dose: 10 mg Divalproex Sodium (Divalproex Sodium Sprinkles 125 Mg Cap.) 250 mg PO TID COUNT INCLUDES THE [facility] Last Admin: 05/26/24 09:06 Dose: 250 mg Donepezil HCl (Donepezil Hcl 5 Mg Tablet) 5 mg PO BEDTIME COUNT INCLUDES THE [facility] Last Admin: 05/25/24 20:06 Dose: 5 mg Levothyroxine Sodium (Levothyroxine Sodium 75 Mcg Tablet) 75 mcg PO DAILY@0600 COUNT INCLUDES THE [facility] Last Admin: 05/26/24 05:59 Dose: 75 mcg Loratadine (Loratadine 10 Mg Tablet) 10 mg PO DAILY COUNT INCLUDES THE [facility] Last Admin: 05/26/24 09:05 Dose: 10 mg Lorazepam (Lorazepam 0.5 Mg Tablet) 0.5 mg PO TID PRN PRN Reason: Anxiety Last Admin: 05/25/24 20:06 Dose: 0.5 mg Magnesium Hydroxide (Milk Of Magnesia 30 Ml Oral.Susp) 30 ml PO DAILY PRN PRN Reason: Constipation Last Admin: 03/28/24 20:36 Dose: 30 ml Olanzapine (Olanzapine 5 Mg Tablet) 5 mg PO Q6H PRN PRN Reason: agitation Last Admin: 05/25/24 23:44 Dose: 5 mg Olanzapine (Olanzapine 2.5 Mg Tablet) 2.5 mg PO BID COUNT INCLUDES THE [facility] Last Admin: 05/26/24 09:05 Dose: 2.5 mg Omeprazole (Omeprazole 20 Mg Capsule.Dr) 20 mg PO DAILY@0700 COUNT INCLUDES THE [facility] Last Admin: 05/26/24 05:59 Dose: 20 mg Oxybutynin Chloride (Oxybutynin Chloride Er 5 Mg Tab.Er.24) 15 mg PO DAILY COUNT INCLUDES THE [facility] Last Admin: 05/26/24 09:05 Dose: 15 mg Trazodone HCl (Trazodone Hcl 50 Mg Tablet) 50 mg PO BEDTIME PRN PRN Reason: sleep Last Admin: 05/25/24 23:44 Dose: 50 mg Trazodone HCl (Trazodone Hcl 50 Mg Tablet) 50 mg PO BEDTIME COUNT INCLUDES THE [facility] Last Admin: 05/25/24 20:05 Dose: 50 mg Allergies Allergies Allergy/AdvReac Type Severity Reaction Status Date / Time sulfamethoxazole Allergy Unknown Verified 03/03/24 14:32 [From Sulfamethoxazole-Trimethoprim] trimethoprim Allergy Unknown Verified 03/03/24 14:32 [From Sulfamethoxazole-Trimethoprim] Assessment & Plan Assessment & Plan (1) Major neurocognitive disorder due to Alzheimer's disease, without behavioral disturbance: Status: Acute Code(s): G30.9 - Alzheimer's disease, unspecified; F02.80 - Dementia in other diseases classified elsewhere, unspecified severity, without behavioral disturbance, psychotic disturbance, mood disturbance, and anxiety Plan Elderly female with a past history of Alzheimer's, recently in a subacute rehab due to subdural hematoma referred for exacerbation of agitation. The patient is a very poor historian unable to provide any details still very agitated. Plan 03/20 continue tx. will check ammonia and depakote level on 03/22/24 at 7am. 03/21: continue current management and treatment plan. check labs tomorrow. 03/22: Continue current management and treatment plan. Check Depakote level and ammonia on 03/23. 03/23 increase trazodone up to 25 p.o. t.i.d. to target anxiety. 03/24 keep same treatment. 03/25 keep same treatment 03/26 keep same treatment 03/27 trazodone will be lowered to 12.5 p.o. t.i.d. 03/29/24 Increase lorazepam 0.5 t.i.d. p.r.n. 03/30 keep same treatment. 03/31 keep same treatment 04/01 keep same treatment 04/02 keep same treatment 04/03 Will schedule trazodone 50mg po qhs (slept only 2 hrs.), increase olanzapine 2.5mg po TID. 04/04 more redirectable from changes of meds yesterday- 04/05- CTP 04/06- continue plan of care 04/07 continue same treatment 04/08 keep same treatment 04/09 keep same treatment 04/10 paperwork for information of healthcare proxy was done. 04/11 continue current plans and regimen 04/12: Continue current regimen and plans. 04/13: Continue current regimen and plans 04/14 continue same treatment 04/15 continue same treatment 04/16 continue same treatment 04/17 today we have the court hearing for affirmation of healthcare proxy. 04/18-04/19 continue tx plan -labs drawn and pt with DIANA and mild hyponatremia; -consult placed; encouraging fluid 04/20 keep same treatment 04/21 keep same treatment. 04/22 she is slightly over-sedated so we are changing Zyprexa to 2.5 p.o. b.i.d.. Blood work came back with better creatinine. 04/23 keep same treatment. 04/24 keep same treatment, waiting for placement. 04/25: no change in presentation. continue current mgmt. 3/2: orthostatic hypotension, fell last night. remains on 1:1. encourage fluids, continue current mgmt. 04/27 keep same treatment 04/28 keep same treatment 04/29 keep same treatment 04/30 continue tx. 05/01 continue tx. 05/02 noted decrease in H&H, RN had reported blood in stool, ordered occult blood test x 3, started on PPI may need GI consult. 05/03 continue current tx. pending GI consult. 05/04 continue tx. repeat H&H improved. 05/05 continue tx. 05/06 continue tx. 05/07/24 Continue plan of care 05/08 continue tx. awaiting placement. 05/09/2024 Continue plan of care no major changes discharge planning 05/11 contine tx. 05/12 continue tx. 05/13 ordered labs/UA, head CT pt presented later in the day with AMS. 05/14 back to baseline mentation. labs, head CT unremarkable. 05/16: continue current management and treatment plan. 05/17: continue current management and treatment plan. 05/18 keep same treatment 05/19 keep same treatment 05/20 keep same treatment 05/21 keep same treatment 05/22 keep same treatment 05/23: fall with head strike, witnessed by staff. hospitalist consult placed, head CT ordered. head CT NEG for acute changes, hospitalist exam benign. hospitalist recs noted: avoid oral salt restriction, and avoid excess po free fluids. otherwise continue current mgmt. 05/24: per hospitalist, fluid restrict to 1.5-2L for hyponatremia. remains on 1:1 for fall risk. no concerning sequelae from yesterday's fall. continue current mgmt. 05/25: appears to be at baseline. awaiting conservatorship so [facility] can be obtained so pt can be sent to care home. nicole current mgmt. 05/26/2024 Continue plan of care current management patient waiting placement Reason for continued inpatient stay Substantial Risk for: inability to function and rapid decompensation Time Spent With Patient Time: Total time managing care of this patient today ____ minutes.
[2024-05-26 12:53] LABS: Alanine Aminotransferase 12 U/L (0-31); Albumin Level 3.5 g/dL (3.5-5.0); Alkaline Phosphatase 94 U/L (39-117); Anion Gap 9 (12-20); Aspartate Amino Transferase 21 U/L (5-31); Bilirubin Total 0.5 mg/dL (0.0-1.0); Blood Urea Nitrogen 14 mg/dL (9-16); Calcium 8.9 mg/dL (8.4-10.2); Carbon Dioxide 29 mmol/L (22-29); Chloride 102 mmol/L (96-108); Creatinine Clr Calc Pharmacy 38.2; Estimated Glomerular Filt Rate 52; Glucose Random 116 mg/dL (60-115); Potassium 4.2 mmol/L (3.3-5.1); Sodium 136 mmol/L (135-145); Total Protein 6.1 g/dL (6.5-8.0)
[2024-05-26 20:26] VITALS: BP 137/65; PULSE 90; RESP 16; TEMP 36.1; O2SAT 94
[2024-05-26] MEDS: Donepezil HCl 5 MG TABLET PO (20:28)
[2024-05-26] MEDS: traZODone HCL 50 MG TABLET PO (20:28)
[2024-05-27] MEDS: Levothyroxine Sodium 75 MCG TABLET PO (05:16)
[2024-05-27] MEDS: Omeprazole 20 MG CAPSULE.DR PO (05:48)
[2024-05-27 08:58] VITALS: BP 122/73; PULSE 81; RESP 20; TEMP 36.8; O2SAT 97
[2024-05-27] MEDS: oxyBUTYnin chloride ER 5 MG TAB.ER.24 15 MG PO (09:00)
[2024-05-27] MEDS: Divalproex Sodium Sprinkles 125 MG CAP.DR.SPR 250 MG PO ×3 (09:02→20:18)
[2024-05-27] MEDS: Loratadine 10 MG TABLET PO (09:03)
[2024-05-27] MEDS: Atorvastatin Calcium 20 MG TABLET PO (09:03)
[2024-05-27] MEDS: OLANZapine 2.5 MG TABLET PO ×2 (09:04→20:17)
--- NOTE | 2024-05-27 13:18 | HO.PSYCHPN ---
Subjective Subjective Date of Service: 05/27/24 Reason For Visit: combative behaviors Subjective Notes: Conditional Voluntary Interim History: Pt slept through the night. She is ambulating with walker. She is does take naps during the day. When approach, tells this filing writer I want to go home, I want to go home! VS stable. Hyponatremia resolved. eating well. Diagnostics Vital Signs (24Hr): Vital Signs - 24 hr 05/26/24 20:26 05/27/24 08:58 Temperature 97 F 98.3 F Pulse Rate 90 81 Respiratory Rate 16 20 Blood Pressure 137/65 122/73 Pulse Oximetry 94 97 Oxygen Delivery Method Room Air Room Air BMI result Body Mass Index 19.9 Labs 05/23/24 10:35 05/26/24 12:25 Labs: Laboratory Results - last 48 hr 05/26/24 12:25 Sodium 136 Potassium 4.2 Chloride 102 Carbon Dioxide 29 Anion Gap 9 L BUN 14 Creatinine 1.02 Estim Creat Clear Calc 38.2 Estimated GFR 52 Random Glucose 116 H Calcium 8.9 Total Bilirubin 0.5 AST 21 ALT 12 Alkaline Phosphatase 94 Total Protein 6.1 L Albumin 3.5 Imaging Radiology Impressions: ITS Impressions Chest X-Ray 04/21/24 14:43 IMPRESSION: Clear lungs. Electronically signed by: Micheal Barreto MD 04/21/2024 03:04 PM [facility] Medications Medications Current Medications Acetaminophen (Acetaminophen 325 Mg Tablet) 975 mg PO TID PRN PRN Reason: pain scale 1-10 Al Hydroxide/Mg Hydroxide (Magnesium Hydrox/Alum Hydrox 30 Ml Oral.Susp) 30 ml PO Q6H PRN PRN Reason: Heartburn/Nausea Atorvastatin Calcium (Atorvastatin Calcium 20 Mg Tablet) 20 mg PO DAILY [facility] Last Admin: 05/27/24 09:03 Dose: 20 mg Bisacodyl (Bisacodyl 10 Mg Supp.Rect) 10 mg [place] DAILY PRN PRN Reason: Constipation Last Admin: 04/02/24 12:43 Dose: 10 mg Divalproex Sodium (Divalproex Sodium Sprinkles 125 Mg Cap.) 250 mg PO TID [facility] Last Admin: 05/27/24 09:02 Dose: 250 mg Donepezil HCl (Donepezil Hcl 5 Mg Tablet) 5 mg PO BEDTIME [facility] Last Admin: 05/26/24 20:28 Dose: 5 mg Levothyroxine Sodium (Levothyroxine Sodium 75 Mcg Tablet) 75 mcg PO DAILY@0600 [facility] Last Admin: 05/27/24 05:16 Dose: 75 mcg Loratadine (Loratadine 10 Mg Tablet) 10 mg PO DAILY [facility] Last Admin: 05/27/24 09:03 Dose: 10 mg Lorazepam (Lorazepam 0.5 Mg Tablet) 0.5 mg PO TID PRN PRN Reason: Anxiety Last Admin: 05/25/24 20:06 Dose: 0.5 mg Magnesium Hydroxide (Milk Of Magnesia 30 Ml Oral.Susp) 30 ml PO DAILY PRN PRN Reason: Constipation Last Admin: 03/28/24 20:36 Dose: 30 ml Olanzapine (Olanzapine 5 Mg Tablet) 5 mg PO Q6H PRN PRN Reason: agitation Last Admin: 05/25/24 23:44 Dose: 5 mg Olanzapine (Olanzapine 2.5 Mg Tablet) 2.5 mg PO BID [facility] Last Admin: 05/27/24 09:04 Dose: 2.5 mg Omeprazole (Omeprazole 20 Mg Capsule.Dr) 20 mg PO DAILY@0700 [facility] Last Admin: 05/27/24 05:48 Dose: 20 mg Oxybutynin Chloride (Oxybutynin Chloride Er 5 Mg Tab.Er.24) 15 mg PO DAILY [facility] Last Admin: 05/27/24 09:00 Dose: 15 mg Trazodone HCl (Trazodone Hcl 50 Mg Tablet) 50 mg PO BEDTIME PRN PRN Reason: sleep Last Admin: 05/25/24 23:44 Dose: 50 mg Trazodone HCl (Trazodone Hcl 50 Mg Tablet) 50 mg PO BEDTIME [facility] Last Admin: 05/26/24 20:28 Dose: 50 mg Allergies Allergies Allergy/AdvReac Type Severity Reaction Status Date / Time sulfamethoxazole Allergy Unknown Verified 03/03/24 14:32 [From Sulfamethoxazole-Trimethoprim] trimethoprim Allergy Unknown Verified 03/03/24 14:32 [From Sulfamethoxazole-Trimethoprim] Assessment & Plan Assessment & Plan (1) Major neurocognitive disorder due to Alzheimer's disease, without behavioral disturbance: Status: Acute Code(s): G30.9 - Alzheimer's disease, unspecified; F02.80 - Dementia in other diseases classified elsewhere, unspecified severity, without behavioral disturbance, psychotic disturbance, mood disturbance, and anxiety Plan Elderly female with a past history of Alzheimer's, recently in a subacute rehab due to subdural hematoma referred for exacerbation of agitation. The patient is a very poor historian unable to provide any details still very agitated. Plan 03/20 continue tx. will check ammonia and depakote level on 03/22/24 at 7am. 03/21: continue current management and treatment plan. check labs tomorrow. 03/22: Continue current management and treatment plan. Check Depakote level and ammonia on 03/23. 03/23 increase trazodone up to 25 p.o. t.i.d. to target anxiety. 03/24 keep same treatment. 03/25 keep same treatment 03/26 keep same treatment 03/27 trazodone will be lowered to 12.5 p.o. t.i.d. 03/29/24 Increase lorazepam 0.5 t.i.d. p.r.n. 03/30 keep same treatment. 03/31 keep same treatment 04/01 keep same treatment 04/02 keep same treatment 04/03 Will schedule trazodone 50mg po qhs (slept only 2 hrs.), increase olanzapine 2.5mg po TID. 04/04 more redirectable from changes of meds yesterday- 04/05- CTP 04/06- continue plan of care 04/07 continue same treatment 04/08 keep same treatment 04/09 keep same treatment 04/10 paperwork for information of healthcare proxy was done. 04/11 continue current plans and regimen 04/12: Continue current regimen and plans. 04/13: Continue current regimen and plans 04/14 continue same treatment 04/15 continue same treatment 04/16 continue same treatment 04/17 today we have the court hearing for affirmation of healthcare proxy. 04/18-04/19 continue tx plan -labs drawn and pt with DIANA and mild hyponatremia; -consult placed; encouraging fluid 04/20 keep same treatment 04/21 keep same treatment. 04/22 she is slightly over-sedated so we are changing Zyprexa to 2.5 p.o. b.i.d.. Blood work came back with better creatinine. 04/23 keep same treatment. 04/24 keep same treatment, waiting for placement. 04/25: no change in presentation. continue current mgmt. 04/26: orthostatic hypotension, fell last night. remains on 1:1. encourage fluids, continue current mgmt. 04/27 keep same treatment 04/28 keep same treatment 04/29 keep same treatment 04/30 continue tx. 05/01 continue tx. 05/02 noted decrease in H&H, RN had reported blood in stool, ordered occult blood test x 3, started on PPI may need GI consult. 05/03 continue current tx. pending GI consult. 05/04 continue tx. repeat H&H improved. 05/05 continue tx. 05/06 continue tx. 05/07/24 Continue plan of care 05/08 continue tx. awaiting placement. 05/09/2024 Continue plan of care no major changes discharge planning 05/11 contine tx. 05/12 continue tx. 05/13 ordered labs/UA, head CT pt presented later in the day with AMS. 05/14 back to baseline mentation. labs, head CT unremarkable. 05/16: continue current management and treatment plan. 05/17: continue current management and treatment plan. 05/18 keep same treatment 05/19 keep same treatment 05/20 keep same treatment 05/21 keep same treatment 05/22 keep same treatment 05/23: fall with head strike, witnessed by staff. hospitalist consult placed, head CT ordered. head CT NEG for acute changes, hospitalist exam benign. hospitalist recs noted: avoid oral salt restriction, and avoid excess po free fluids. otherwise continue current mgmt. 05/24: per hospitalist, fluid restrict to 1.5-2L for hyponatremia. remains on 1:1 for fall risk. no concerning sequelae from yesterday's fall. continue current mgmt. 05/25: appears to be at baseline. awaiting conservatorship so [facility] can be obtained so pt can be sent [facility]. nicole current mgmt. 05/26/2024 Continue plan of care current management patient waiting placement 05/27 continue tx. Reason for continued inpatient stay Substantial Risk for: inability to function Time Spent With Patient Time: Total time managing care of this patient today ____ minutes.
[2024-05-27 20:13] VITALS: BP 144/68; PULSE 75; RESP 15; TEMP 36.1; O2SAT 93
[2024-05-27] MEDS: traZODone HCL 50 MG TABLET PO (20:17)
[2024-05-27] MEDS: Donepezil HCl 5 MG TABLET PO (20:17)
[2024-05-27 22:26] LABS: Appearance Urine Clear; Color Urine Yellow; Glucose Urine UA Negative (Negative); Leukocyte Esterase Urine Small (1+) (Negative); Nitrite Urine Negative (Negative); UMIC TRIGGER UACC YES; Urine Blood Negative (Negative); Urine Ketones Negative (Negative); Urine Protein Negative (Neg-Trace)
[2024-05-27 22:38] LABS: Bacteria Urine None Seen (None Seen); Hyaline Casts Urine 0-2 /LPF (0-2); RBC Urine 0-2 /HPF (0-2); Squamous Epithelial Cell Urine 0-2 /HPF (0-2); UACC Culture Trigger YES; WBC Urine 0-5 /HPF (0-5)
[2024-05-28] MEDS: Levothyroxine Sodium 75 MCG TABLET PO (04:57)
[2024-05-28 08:00] VITALS: PULSE 80; RESP 18; TEMP 36.1; O2SAT 95
[2024-05-28] MEDS: OLANZapine 2.5 MG TABLET PO ×2 (09:40→20:34)
[2024-05-28] MEDS: Loratadine 10 MG TABLET PO (09:40)
[2024-05-28] MEDS: Divalproex Sodium Sprinkles 125 MG CAP.DR.SPR 250 MG PO ×3 (09:40→20:34)
[2024-05-28] MEDS: Omeprazole 20 MG CAPSULE.DR PO (09:41)
[2024-05-28] MEDS: oxyBUTYnin chloride ER 5 MG TAB.ER.24 15 MG PO (09:41)
[2024-05-28] MEDS: Atorvastatin Calcium 20 MG TABLET PO (09:48)
--- NOTE | 2024-05-28 10:45 | HO.PSYCHPN ---
Subjective Subjective Date of Service: 05/28/24 Reason For Visit: combative behaviors Subjective Notes: Conditional Voluntary Interim History: Pt slept through the night. She is ambulating with walker. She is does take naps during the day. She denies any physical concerns. She continues on one to one due to risk for falls. VS stable. Hyponatremia resolved. eating well. Review of Systems Review of Systems none currently Yes all other systems are reviewed and are negative and Unobtainable due to mental status Constitutional: Reports no additional constitutional complaints, Denies chills, Denies fever(s) and Denies night sweats Eyes: Reports no additional eye complaints, Denies blurry vision, Denies change in vision, Denies diplopia, Denies eye discharge, Denies loss of vision and Denies eye pain Denies dizziness Cardiovascular: Reports no additional cardiovascular complaints, Denies chest pain, Denies lightheadedness, Denies Loss of Consciousness and Denies dyspnea Respiratory: Reports no additional respiratory complaints and Denies dyspnea Gastrointestinal: Reports no additional gastrointestinal complaints, Denies abdominal pain, Denies melena, Denies hematochezia, Denies change in bowel habits and Denies change in stool character Musculoskeletal: Reports no additional musculoskeletal complaints, Denies numbness and Denies tingling Reports confusion (chronic for the patient - per her demented baseline), Denies dizziness, Denies loss of vision, Denies numbness and Denies tingling Psychiatric: Reports no additional psychiatric complaints and Reports confusion (chronic for the patient - per her demented baseline) Endocrine: Reports no additional endocrine complaints Hematologic/Lymphatic: Reports no additional hematologic/lymphatic complaints Allergic/Immunologic: Reports no additional allergic/immunologic complaints Mental Status Exam Mental Status Exam Narrative: Appearance: casually groomed ambulating with walker. Behavior: calm Psychomotor: no agitation or retardation noted Speech: mumbles, TP: concrete TC: wanting to go home ongoing Mood:ok Affect:calm, congruent SI: none HI: none VH/AH: no overt signs Delusions: none noted Insight/judgment: impaired x 2 Memory/cog: alert Diagnostics Vital Signs (24Hr): Vital Signs - 24 hr 05/27/24 20:13 05/28/24 08:00 Temperature 96.9 F 97 F Pulse Rate 75 80 Respiratory Rate 15 18 Blood Pressure 144/68 H Pulse Oximetry 93 95 Oxygen Delivery Method Room Air Room Air BMI result Body Mass Index 19.9 Labs 05/23/24 10:35 05/26/24 12:25 Labs: Laboratory Results - last 48 hr 05/26/24 05/27/24 12:25 20:41 Sodium 136 Potassium 4.2 Chloride 102 Carbon Dioxide 29 Anion Gap 9 L BUN 14 Creatinine 1.02 Estim Creat Clear Calc 38.2 Estimated GFR 52 Random Glucose 116 H Calcium 8.9 Total Bilirubin 0.5 AST 21 ALT 12 Alkaline Phosphatase 94 Total Protein 6.1 L Albumin 3.5 Urine Color Yellow Urine Appearance Clear Urine pH 8.0 Ur Specific [place] 1.010 Urine Protein Negative Urine Glucose (UA) Negative Urine Ketones Negative Urine Blood Negative Urine Nitrite Negative Ur Leukocyte Esterase Small (1+) H Urine RBC 0-2 Urine WBC 0-5 Ur Squamous Epith Cells 0-2 Urine Bacteria None Seen Hyaline Casts 0-2 Imaging Radiology Impressions: ITS Impressions Chest X-Ray 04/21/24 14:43 IMPRESSION: Clear lungs. Electronically signed by: Micheal Barreto MD 04/21/2024 03:04 PM [facility] Medications Medications Current Medications Acetaminophen (Acetaminophen 325 Mg Tablet) 975 mg PO TID PRN PRN Reason: pain scale 1-10 Al Hydroxide/Mg Hydroxide (Magnesium Hydrox/Alum Hydrox 30 Ml Oral.Susp) 30 ml PO Q6H PRN PRN Reason: Heartburn/Nausea Atorvastatin Calcium (Atorvastatin Calcium 20 Mg Tablet) 20 mg PO DAILY [facility] Last Admin: 05/28/24 09:48 Dose: 20 mg Bisacodyl (Bisacodyl 10 Mg Supp.Rect) 10 mg PA DAILY PRN PRN Reason: Constipation Last Admin: 04/02/24 12:43 Dose: 10 mg Divalproex Sodium (Divalproex Sodium Sprinkles 125 Mg ) 250 mg PO TID [facility] Last Admin: 05/28/24 09:40 Dose: 250 mg Donepezil HCl (Donepezil Hcl 5 Mg Tablet) 5 mg PO BEDTIME [facility] Last Admin: 05/27/24 20:17 Dose: 5 mg Levothyroxine Sodium (Levothyroxine Sodium 75 Mcg Tablet) 75 mcg PO DAILY@0600 [facility] Last Admin: 05/28/24 04:57 Dose: 75 mcg Loratadine (Loratadine 10 Mg Tablet) 10 mg PO DAILY [facility] Last Admin: 05/28/24 09:40 Dose: 10 mg Lorazepam (Lorazepam 0.5 Mg Tablet) 0.5 mg PO TID PRN PRN Reason: Anxiety Last Admin: 05/25/24 20:06 Dose: 0.5 mg Magnesium Hydroxide (Milk Of Magnesia 30 Ml Oral.Susp) 30 ml PO DAILY PRN PRN Reason: Constipation Last Admin: 03/28/24 20:36 Dose: 30 ml Olanzapine (Olanzapine 5 Mg Tablet) 5 mg PO Q6H PRN PRN Reason: agitation Last Admin: 05/25/24 23:44 Dose: 5 mg Olanzapine (Olanzapine 2.5 Mg Tablet) 2.5 mg PO BID [facility] Last Admin: 05/28/24 09:40 Dose: 2.5 mg Omeprazole (Omeprazole 20 Mg Capsule.Dr) 20 mg PO DAILY@0700 [facility] Last Admin: 05/28/24 09:41 Dose: 20 mg Oxybutynin Chloride (Oxybutynin Chloride Er 5 Mg Tab.Er.24) 15 mg PO DAILY [facility] Last Admin: 05/28/24 09:41 Dose: 15 mg Trazodone HCl (Trazodone Hcl 50 Mg Tablet) 50 mg PO BEDTIME PRN PRN Reason: sleep Last Admin: 05/25/24 23:44 Dose: 50 mg Trazodone HCl (Trazodone Hcl 50 Mg Tablet) 50 mg PO BEDTIME [facility] Last Admin: 05/27/24 20:17 Dose: 50 mg Allergies Allergies Allergy/AdvReac Type Severity Reaction Status Date / Time sulfamethoxazole Allergy Unknown Verified 03/03/24 14:32 [From Sulfamethoxazole-Trimethoprim] trimethoprim Allergy Unknown Verified 03/03/24 14:32 [From Sulfamethoxazole-Trimethoprim] Assessment & Plan Assessment & Plan (1) Major neurocognitive disorder due to Alzheimer's disease, without behavioral disturbance: Status: Acute Code(s): G30.9 - Alzheimer's disease, unspecified; F02.80 - Dementia in other diseases classified elsewhere, unspecified severity, without behavioral disturbance, psychotic disturbance, mood disturbance, and anxiety Plan Elderly female with a past history of Alzheimer's, recently in a subacute rehab due to subdural hematoma referred for exacerbation of agitation. The patient is a very poor historian unable to provide any details still very agitated. Plan 03/20 continue tx. will check ammonia and depakote level on 03/22/24 at 7am. 03/21: continue current management and treatment plan. check labs tomorrow. 03/22: Continue current management and treatment plan. Check Depakote level and ammonia on 03/23. 03/23 increase trazodone up to 25 p.o. t.i.d. to target anxiety. 03/24 keep same treatment. 03/25 keep same treatment 03/26 keep same treatment 03/27 trazodone will be lowered to 12.5 p.o. t.i.d. 03/29/24 Increase lorazepam 0.5 t.i.d. p.r.n. 03/30 keep same treatment. 03/31 keep same treatment 04/01 keep same treatment 04/02 keep same treatment 04/03 Will schedule trazodone 50mg po qhs (slept only 2 hrs.), increase olanzapine 2.5mg po TID. 04/04 more redirectable from changes of meds yesterday- 04/05- CTP 04/06- continue plan of care 04/07 continue same treatment 04/08 keep same treatment 04/09 keep same treatment 04/10 paperwork for information of healthcare proxy was done. 04/11 continue current plans and regimen 04/12: Continue current regimen and plans. 04/13: Continue current regimen and plans 04/14 continue same treatment 04/15 continue same treatment 04/16 continue same treatment 04/17 today we have the court hearing for affirmation of healthcare proxy. 04/18-04/19 continue tx plan -labs drawn and pt with DIANA and mild hyponatremia; -consult placed; encouraging fluid 04/20 keep same treatment 04/21 keep same treatment. 04/22 she is slightly over-sedated so we are changing Zyprexa to 2.5 p.o. b.i.d.. Blood work came back with better creatinine. 04/23 keep same treatment. 04/24 keep same treatment, waiting for placement. 04/25: no change in presentation. continue current mgmt. 3/2: orthostatic hypotension, fell last night. remains on 1:1. encourage fluids, continue current mgmt. 04/27 keep same treatment 04/28 keep same treatment 04/29 keep same treatment 04/30 continue tx. 05/01 continue tx. 05/02 noted decrease in H&H, RN had reported blood in stool, ordered occult blood test x 3, started on PPI may need GI consult. 05/03 continue current tx. pending GI consult. 05/04 continue tx. repeat H&H improved. 05/05 continue tx. 05/06 continue tx. 05/07/24 Continue plan of care 05/08 continue tx. awaiting placement. 05/09/2024 Continue plan of care no major changes discharge planning 05/11 contine tx. 05/12 continue tx. 05/13 ordered labs/UA, head CT pt presented later in the day with AMS. 05/14 back to baseline mentation. labs, head CT unremarkable. 05/16: continue current management and treatment plan. 05/17: continue current management and treatment plan. 05/18 keep same treatment 05/19 keep same treatment 05/20 keep same treatment 05/21 keep same treatment 05/22 keep same treatment 05/23: fall with head strike, witnessed by staff. hospitalist consult placed, head CT ordered. head CT NEG for acute changes, hospitalist exam benign. hospitalist recs noted: avoid oral salt restriction, and avoid excess po free fluids. otherwise continue current mgmt. 05/24: per hospitalist, fluid restrict to 1.5-2L for hyponatremia. remains on 1:1 for fall risk. no concerning sequelae from yesterday's fall. continue current mgmt. 05/25: appears to be at baseline. awaiting conservatorship so [facility] can be obtained so pt can be sent to skilled nursing. nicole current mgmt. 05/26/2024 Continue plan of care current management patient waiting placement 05/27 continue tx. 05/28 continue tx. Reason for continued inpatient stay Substantial Risk for: inability to function Time Spent With Patient Time: Total time managing care of this patient today ____ minutes.
[2024-05-28 20:00] VITALS: BP 121/57; PULSE 66; RESP 16; TEMP 36.1; O2SAT 95
[2024-05-28] MEDS: Donepezil HCl 5 MG TABLET PO (20:34)
[2024-05-28] MEDS: traZODone HCL 50 MG TABLET PO (20:34)
[2024-05-29] VITALS (7 sets, daily range): BP systolic 132–146; BP diastolic 68–71; PULSE 69–114; RESP 16–35; TEMP 36.3–36.7; O2SAT 88–95; BMI 20.2
[2024-05-29] MEDS: Levothyroxine Sodium 75 MCG TABLET PO (06:16)
[2024-05-29] MEDS: Omeprazole 20 MG CAPSULE.DR PO (06:16)
[2024-05-29] MEDS: Loratadine 10 MG TABLET PO (08:44)
[2024-05-29] MEDS: Divalproex Sodium Sprinkles 125 MG CAP.DR.SPR 250 MG PO ×3 (08:44→20:56)
[2024-05-29] MEDS: Atorvastatin Calcium 20 MG TABLET PO (08:44)
[2024-05-29] MEDS: OLANZapine 2.5 MG TABLET PO ×2 (08:44→20:56)
[2024-05-29] MEDS: oxyBUTYnin chloride ER 5 MG TAB.ER.24 15 MG PO (08:44)
--- NOTE | 2024-05-29 09:14 | P.PNPSI_ITS ---
Subjective Subjective Date of Service: 05/29/24 Reason For Visit: combative behaviors Subjective Notes: Conditional Voluntary Interim History: Pt slept through the night. She was up for meals later in the day, pt presented out of breath, desaturating to low 80's when ambulating. Hospitalist consult stat requested. Pt given 2L of oxygen. Labs cbc, cmp ordered stat. chest CT also ordered. BP 140's, afebrile. Pt alert, and conversing as usual, denies any concerns but visible out of breath with increase respiratory rate. Medication Compliance: Yes Review of Systems Review of Systems none currently Yes all other systems are reviewed and are negative and Unobtainable due to mental status Constitutional: Reports no additional constitutional complaints, Denies chills, Denies fever(s) and Denies night sweats Eyes: Reports no additional eye complaints, Denies blurry vision, Denies change in vision, Denies diplopia, Denies eye discharge, Denies loss of vision and Denies eye pain Denies dizziness Cardiovascular: Reports no additional cardiovascular complaints, Denies chest pain, Denies lightheadedness, Denies Loss of Consciousness and Denies dyspnea Respiratory: Reports no additional respiratory complaints and Denies dyspnea Gastrointestinal: Reports no additional gastrointestinal complaints, Denies abdominal pain, Denies melena, Denies hematochezia, Denies change in bowel habits and Denies change in stool character Musculoskeletal: Reports no additional musculoskeletal complaints, Denies numbness and Denies tingling Reports confusion (chronic for the patient - per her demented baseline), Denies dizziness, Denies loss of vision, Denies numbness and Denies tingling Psychiatric: Reports no additional psychiatric complaints and Reports confusion (chronic for the patient - per her demented baseline) Endocrine: Reports no additional endocrine complaints Hematologic/Lymphatic: Reports no additional hematologic/lymphatic complaints Allergic/Immunologic: Reports no additional allergic/immunologic complaints Mental Status Exam Mental Status Exam Narrative: Appearance: casually groomed ambulating with walker. Behavior: calm Psychomotor: no agitation or retardation noted Speech: mumbles, TP: concrete TC: wanting to go home ongoing Mood:ok Affect:calm, congruent SI: none HI: none VH/AH: no overt signs Delusions: none noted Insight/judgment: impaired x 2 Memory/cog: alert Diagnostics Vital Signs (24Hr): Vital Signs - 24 hr 05/28/24 20:00 Temperature 96.9 F Pulse Rate 66 Respiratory Rate 16 Blood Pressure 121/57 L Pulse Oximetry 95 Oxygen Delivery Method Room Air BMI result Body Mass Index 19.9 Labs 05/29/24 16:22 05/29/24 16:22 Labs: Laboratory Results - last 48 hr 05/27/24 20:41 Urine Color Yellow Urine Appearance Clear Urine pH 8.0 Ur Specific [place] 1.010 Urine Protein Negative Urine Glucose (UA) Negative Urine Ketones Negative Urine Blood Negative Urine Nitrite Negative Ur Leukocyte Esterase Small (1+) H Urine RBC 0-2 Urine WBC 0-5 Ur Squamous Epith Cells 0-2 Urine Bacteria None Seen Hyaline Casts 0-2 Imaging Radiology Impressions: ITS Impressions Chest X-Ray 04/21/24 14:43 IMPRESSION: Clear lungs. Electronically signed by: Micheal Barreto MD 04/21/2024 03:04 PM [facility] Medications Medications Current Medications Acetaminophen (Acetaminophen 325 Mg Tablet) 975 mg PO TID PRN PRN Reason: pain scale 1-10 Al Hydroxide/Mg Hydroxide (Magnesium Hydrox/Alum Hydrox 30 Ml Oral.Susp) 30 ml PO Q6H PRN PRN Reason: Heartburn/Nausea Atorvastatin Calcium (Atorvastatin Calcium 20 Mg Tablet) 20 mg PO DAILY [facility] Last Admin: 05/29/24 08:44 Dose: 20 mg Bisacodyl (Bisacodyl 10 Mg Supp.Rect) 10 mg [place] DAILY PRN PRN Reason: Constipation Last Admin: 04/02/24 12:43 Dose: 10 mg Divalproex Sodium (Divalproex Sodium Sprinkles 125 Mg ) 250 mg PO TID [facility] Last Admin: 05/29/24 08:44 Dose: 250 mg Donepezil HCl (Donepezil Hcl 5 Mg Tablet) 5 mg PO BEDTIME [facility] Last Admin: 05/28/24 20:34 Dose: 5 mg Levothyroxine Sodium (Levothyroxine Sodium 75 Mcg Tablet) 75 mcg PO DAILY@0600 [facility] Last Admin: 05/29/24 06:16 Dose: 75 mcg Loratadine (Loratadine 10 Mg Tablet) 10 mg PO DAILY [facility] Last Admin: 05/29/24 08:44 Dose: 10 mg Lorazepam (Lorazepam 0.5 Mg Tablet) 0.5 mg PO TID PRN PRN Reason: Anxiety Last Admin: 05/25/24 20:06 Dose: 0.5 mg Magnesium Hydroxide (Milk Of Magnesia 30 Ml Oral.Susp) 30 ml PO DAILY PRN PRN Reason: Constipation Last Admin: 03/28/24 20:36 Dose: 30 ml Olanzapine (Olanzapine 5 Mg Tablet) 5 mg PO Q6H PRN PRN Reason: agitation Last Admin: 05/25/24 23:44 Dose: 5 mg Olanzapine (Olanzapine 2.5 Mg Tablet) 2.5 mg PO BID [facility] Last Admin: 05/29/24 08:44 Dose: 2.5 mg Omeprazole (Omeprazole 20 Mg Capsule.Dr) 20 mg PO DAILY@0700 [facility] Last Admin: 05/29/24 06:16 Dose: 20 mg Oxybutynin Chloride (Oxybutynin Chloride Er 5 Mg Tab.Er.24) 15 mg PO DAILY [facility] Last Admin: 05/29/24 08:44 Dose: 15 mg Trazodone HCl (Trazodone Hcl 50 Mg Tablet) 50 mg PO BEDTIME PRN PRN Reason: sleep Last Admin: 05/25/24 23:44 Dose: 50 mg Trazodone HCl (Trazodone Hcl 50 Mg Tablet) 50 mg PO BEDTIME [facility] Last Admin: 05/28/24 20:34 Dose: 50 mg Allergies Allergies Allergy/AdvReac Type Severity Reaction Status Date / Time sulfamethoxazole Allergy Unknown Verified 03/03/24 14:32 [From Sulfamethoxazole-Trimethoprim] trimethoprim Allergy Unknown Verified 03/03/24 14:32 [From Sulfamethoxazole-Trimethoprim] Assessment & Plan Assessment & Plan (1) Major neurocognitive disorder due to Alzheimer's disease, without behavioral disturbance: Status: Acute Code(s): G30.9 - Alzheimer's disease, unspecified; F02.80 - Dementia in other diseases classified elsewhere, unspecified severity, without behavioral disturbance, psychotic disturbance, mood disturbance, and anxiety Plan Elderly female with a past history of Alzheimer's, recently in a subacute rehab due to subdural hematoma referred for exacerbation of agitation. The patient is a very poor historian unable to provide any details still very agitated. Plan 03/20 continue tx. will check ammonia and depakote level on 03/22/24 at 7am. 03/21: continue current management and treatment plan. check labs tomorrow. 03/22: Continue current management and treatment plan. Check Depakote level and ammonia on 03/23. 03/23 increase trazodone up to 25 p.o. t.i.d. to target anxiety. 03/24 keep same treatment. 03/25 keep same treatment 03/26 keep same treatment 03/27 trazodone will be lowered to 12.5 p.o. t.i.d. 03/29/24 Increase lorazepam 0.5 t.i.d. p.r.n. 03/30 keep same treatment. 03/31 keep same treatment 04/01 keep same treatment 04/02 keep same treatment 04/03 Will schedule trazodone 50mg po qhs (slept only 2 hrs.), increase olanzapine 2.5mg po TID. 04/04 more redirectable from changes of meds yesterday- 04/05- CTP 04/06- continue plan of care 04/07 continue same treatment 04/08 keep same treatment 04/09 keep same treatment 04/10 paperwork for information of healthcare proxy was done. 04/11 continue current plans and regimen 04/12: Continue current regimen and plans. 04/13: Continue current regimen and plans 04/14 continue same treatment 04/15 continue same treatment 04/16 continue same treatment 04/17 today we have the court hearing for affirmation of healthcare proxy. 04/18-04/19 continue tx plan -labs drawn and pt with DIANA and mild hyponatremia; -consult placed; encouraging fluid 04/20 keep same treatment 04/21 keep same treatment. 04/22 she is slightly over-sedated so we are changing Zyprexa to 2.5 p.o. b.i.d.. Blood work came back with better creatinine. 04/23 keep same treatment. 04/24 keep same treatment, waiting for placement. 04/25: no change in presentation. continue current mgmt. 04/26: orthostatic hypotension, fell last night. remains on 1:1. encourage fluids, continue current mgmt. 04/27 keep same treatment 04/28 keep same treatment 04/29 keep same treatment 04/30 continue tx. 05/01 continue tx. 05/02 noted decrease in H&H, RN had reported blood in stool, ordered occult blood test x 3, started on PPI may need GI consult. 05/03 continue current tx. pending GI consult. 05/04 continue tx. repeat H&H improved. 05/05 continue tx. 05/06 continue tx. 05/07/24 Continue plan of care 05/08 continue tx. awaiting placement. 05/09/2024 Continue plan of care no major changes discharge planning 05/11 contine tx. 05/12 continue tx. 05/13 ordered labs/UA, head CT pt presented later in the day with AMS. 05/14 back to baseline mentation. labs, head CT unremarkable. 05/16: continue current management and treatment plan. 05/17: continue current management and treatment plan. 05/18 keep same treatment 05/19 keep same treatment 05/20 keep same treatment 05/21 keep same treatment 05/22 keep same treatment 05/23: fall with head strike, witnessed by staff. hospitalist consult placed, head CT ordered. head CT NEG for acute changes, hospitalist exam benign. hospitalist recs noted: avoid oral salt restriction, and avoid excess po free fluids. otherwise continue current mgmt. 05/24: per hospitalist, fluid restrict to 1.5-2L for hyponatremia. remains on 1:1 for fall risk. no concerning sequelae from yesterday's fall. continue current mgmt. 05/25: appears to be at baseline. awaiting conservatorship so [facility] can be obtained so pt can be sent to [facility]. nicole current mgmt. 05/26/2024 Continue plan of care current management patient waiting placement 05/27 continue tx. 05/28 continue tx. 05/29 hospitalist consult stat for oxygen desaturation to low 80's, started on 2l oxygen, stat cbc, cmp and chest CT. Reason for continued inpatient stay Substantial Risk for: inability to function Time Spent With Patient Time: Total time managing care of this patient today ____ minutes.
[2024-05-29 16:25] LABS: MANUAL DIFF FLAG NO
[2024-05-29 16:28] LABS: Basophils Percent Auto 0.5 % (0-2); Eosinophils Absolute Auto 0.1 X10*3/uL (0.0-0.4); Eosinophils Percent Auto 1.1 % (0-4); Hematocrit 35.6 % (37.0-47.0); Hemoglobin 11.7 g/dl (12.0-16.0); Imm Gran Abs Auto 0.02 X10*3/uL (0.00-0.03); Imm Gran Pct Auto 0.2 % (0.0-0.4); Lymphocytes Absolute Auto 4.4 X10*3/uL (1.2-4.9); Lymphocytes Percent Auto 53.1 % (20-40); Mean Corpuscular HGB Conc 32.9 g/dl (31.0-35.0); Mean Corpuscular Hemoglobin 30.2 pg (27.0-33.0); Mean Platelet Volume 10.9 fL (9.4-12.3); Monocytes Percent Auto 11.6 % (2-11); Neutrophils Absolute Auto 2.8 x10*3/uL (2.0-8.3); Neutrophils Percent Auto 33.5 % (45-73); Platelet Count 157 X10*3/uL (160-400); Red Blood Count 3.87 X10*6/uL (4.20-5.50); Red Cell Distribution Width 13.5 % (11.0-16.0); White Blood Count 8.3 X10*3/uL (4.8-10.8)
[2024-05-29 16:40] LABS: Alanine Aminotransferase 12 U/L (0-31); Albumin Level 3.5 g/dL (3.5-5.0); Alkaline Phosphatase 96 U/L (39-117); Anion Gap 12 (12-20); Aspartate Amino Transferase 23 U/L (5-31); Bilirubin Total 0.5 mg/dL (0.0-1.0); Blood Urea Nitrogen 18 mg/dL (9-16); Calcium 8.6 mg/dL (8.4-10.2); Carbon Dioxide 24 mmol/L (22-29); Chloride 104 mmol/L (96-108); Creatinine Clr Calc Pharmacy 38.5; Estimated Glomerular Filt Rate 53; Glucose Random 107 mg/dL (60-115); Potassium 4.8 mmol/L (3.3-5.1); Sodium 135 mmol/L (135-145); Total Protein 6.1 g/dL (6.5-8.0)
[2024-05-29 17:32] LABS: Influenza A PCR NEGATIVE (Negative); Influenza B PCR NEGATIVE (Negative); Resp Syncy Virus RNA Qual PCR NEGATIVE (Negative); SARS COV2 PCR INHOUSE NEGATIVE (Negative)
--- NOTE | 2024-05-29 18:16 | PC.NURSE ---
Staff reported to RN that the patient was running short of breath while ambulating, O2 SAT obtained while lying,sitting and walking were as low as 77% Audie [employer] notified, Hospitalist consult, labs, CT of chest and Flu/RSV and Covid panel orders put in.? Pt is on 2L oxygen, continuous monitoring, Staff beside her bed on a 1:1 and will inform the nurse if it runs to lower than 90%. Vitaliy assessed patient, D-Dimer high sensitivity orders in, currently in communication with Provider, hospitalist while waiting for pending results.
[2024-05-29] MEDS: iohexoL 350 MG/ML 100 ML INFUS..BTL 75 ML IV (20:19)
--- NOTE | 2024-05-29 20:20 | P.EN_ITS ---
Event Note Date of Service: 05/29/24 Event Note: Pt is an 79-year-old female without any significant pulmonary diagnoses admitted to [facility] with hospitalist consult for sudden hypoxia. Pt was noted to be hypoxic as low as 88% on RA and desatting into the upper 70s with ambulation. Pt also noted to be tachycardic up to 114 and tachypneic up to 35. No fever. Pt with advanced dementia at baseline and overall a poor historian. Pt denies any significant SOB or difficulty breathing. Denies cough. No chest pain/pressure, palpitations. Denies pain in lower extremities. CBC and CMP ordered, grossly unremarkable. No leukocytosis. Stable normocytic anemia. No significant electrolyte abnormalities. Renal and hepatic function WNL. Tested negative for flu, COVID, RSV. CTA of chest with evaluation limited by motion artifact but without obvious consolidation. Did show with mild ground-glass opacities likely artifactual. Also showed mild bilateral basilar subsegmental atelectasis vs scarring. Given patient's tachycardia and sudden hypoxia, will check CTA of chest to rule out PE. Time Spent With Patient Time: Total time managing care of this patient today ____ minutes.
[2024-05-29] MEDS: Donepezil HCl 5 MG TABLET PO (20:56)
[2024-05-29] MEDS: traZODone HCL 50 MG TABLET PO ×2 (20:56→22:26)
[2024-05-29] MEDS: LORazepam 0.5 MG TABLET PO (20:56)
[2024-05-29] MEDS: OLANZapine 5 MG TABLET PO (22:26)
[2024-05-30] MEDS: Levothyroxine Sodium 75 MCG TABLET PO (06:39)
[2024-05-30] MEDS: Omeprazole 20 MG CAPSULE.DR PO (06:39)
[2024-05-30 08:00] VITALS: BP 134/82; PULSE 78; RESP 16; O2SAT 95
[2024-05-30] MEDS: Divalproex Sodium Sprinkles 125 MG CAP.DR.SPR 250 MG PO ×3 (08:52→20:25)
[2024-05-30] MEDS: oxyBUTYnin chloride ER 5 MG TAB.ER.24 15 MG PO (08:52)
[2024-05-30] MEDS: Loratadine 10 MG TABLET PO (08:53)
[2024-05-30] MEDS: Atorvastatin Calcium 20 MG TABLET PO (08:53)
[2024-05-30] MEDS: OLANZapine 2.5 MG TABLET PO ×2 (08:53→20:25)
--- NOTE | 2024-05-30 09:36 | P.PNPSI_ITS ---
Subjective Subjective Date of Service: 05/30/24 Reason For Visit: combative behaviors Interim History: Met with pt, discussed with team who report no further symptoms of O2 desaturation. Supplemental O2 discontinued by hospitalist team. Pt denies sx, denies SOB, able to sleep and appears calm and comfortable in milieu. Medication Compliance: Yes Review of Systems Review of Systems Monitoring oxygen saturation Mental Status Exam Mental Status Exam Patient Appearance: Fatigued Patient Orientation: Person Level of Consciousness: Alert Patient Behavior: Appropriate, Cooperative and Good Eye Contact Mood Description: Calm Affect Description: Calm Patient Cognition Impaired: Yes Ability to Follow Directions: Fair Speech Pattern: Spontaneous Speech Depressive Symptoms: Increased Fatigue Judgement: Poor Diagnostics Vital Signs (24Hr): Vital Signs - 24 hr 05/29/24 15:30 05/29/24 15:50 05/29/24 15:58 Temperature 98.0 F 98 F Pulse Rate 114 H 98 84 Respiratory Rate 35 H 25 H 16 Blood Pressure 133/68 133/68 Pulse Oximetry 88 L 95 95 Oxygen Delivery Method Room Air Room Air Room Air Oxygen Flow Rate 05/29/24 16:10 05/29/24 18:51 05/29/24 20:00 Temperature 98.1 F Pulse Rate 91 102 H Respiratory Rate 18 Blood Pressure 132/68 Pulse Oximetry 94 92 95 Oxygen Delivery Method Nasal Cannula Room Air Room Air Oxygen Flow Rate 2 05/30/24 08:00 Temperature Pulse Rate 78 Respiratory Rate 16 Blood Pressure 134/82 Pulse Oximetry 95 Oxygen Delivery Method Room Air Oxygen Flow Rate BMI result Body Mass Index 20.2 Labs 05/29/24 16:22 05/29/24 16:22 Labs: Laboratory Results - last 48 hr 05/29/24 05/29/24 16:22 16:46 WBC 8.3 RBC 3.87 L Hgb 11.7 L Hct 35.6 L MCV 92.0 MCH 30.2 MCHC 32.9 RDW 13.5 Plt Count 157 L MPV 10.9 Immature Gran % (Auto) 0.2 Neut % (Auto) 33.5 L Lymph % (Auto) 53.1 H [place] % (Auto) 11.6 H Eos % (Auto) 1.1 Baso % (Auto) 0.5 Lymph # (Auto) 4.4 [place] # (Auto) 1.0 Eos # (Auto) 0.1 Baso # (Auto) 0.0 Abs Immat Gran (auto) 0.02 Absolute Neuts (auto) 2.8 Absolute Nucleated RBC 0.000 Nucleated RBC % (auto) 0.0 Sodium 135 Potassium 4.8 Chloride 104 Carbon Dioxide 24 Anion Gap 12 BUN 18 H Creatinine 1.01 Estim Creat Clear Calc 38.5 Estimated GFR 53 Random Glucose 107 Calcium 8.6 Total Bilirubin 0.5 AST 23 ALT 12 Alkaline Phosphatase 96 Total Protein 6.1 L Albumin 3.5 Influenza Type A (PCR) NEGATIVE Influenza Type B (PCR) NEGATIVE RSV RNA Qual (PCR) NEGATIVE SARS-CoV-2 RNA (RT-PCR) NEGATIVE Imaging Radiology Impressions: ITS Impressions Chest X-Ray 04/21/24 14:43 IMPRESSION: Clear lungs. Electronically signed by: Micheal Barreto MD 04/21/2024 03:04 PM [facility] [place] Medications Medications Current Medications Acetaminophen (Acetaminophen 325 Mg Tablet) 975 mg PO TID PRN PRN Reason: pain scale 1-10 Al Hydroxide/Mg Hydroxide (Magnesium Hydrox/Alum Hydrox 30 Ml Oral.Susp) 30 ml PO Q6H PRN PRN Reason: Heartburn/Nausea Atorvastatin Calcium (Atorvastatin Calcium 20 Mg Tablet) 20 mg PO DAILY [facility] Last Admin: 05/30/24 08:53 Dose: 20 mg Bisacodyl (Bisacodyl 10 Mg Supp.Rect) 10 mg [place] DAILY PRN PRN Reason: Constipation Last Admin: 04/02/24 12:43 Dose: 10 mg Divalproex Sodium (Divalproex Sodium Sprinkles 125 Mg Camilo.) 250 mg PO TID [facility] Last Admin: 05/30/24 08:52 Dose: 250 mg Donepezil HCl (Donepezil Hcl 5 Mg Tablet) 5 mg PO BEDTIME [facility] Last Admin: 05/29/24 20:56 Dose: 5 mg Levothyroxine Sodium (Levothyroxine Sodium 75 Mcg Tablet) 75 mcg PO DAILY@0600 [facility] Last Admin: 05/30/24 06:39 Dose: 75 mcg Loratadine (Loratadine 10 Mg Tablet) 10 mg PO DAILY [facility] Last Admin: 05/30/24 08:53 Dose: 10 mg Lorazepam (Lorazepam 0.5 Mg Tablet) 0.5 mg PO TID PRN PRN Reason: Anxiety Last Admin: 05/29/24 20:56 Dose: 0.5 mg Magnesium Hydroxide (Milk Of Magnesia 30 Ml Oral.Susp) 30 ml PO DAILY PRN PRN Reason: Constipation Last Admin: 03/28/24 20:36 Dose: 30 ml Olanzapine (Olanzapine 5 Mg Tablet) 5 mg PO Q6H PRN PRN Reason: agitation Last Admin: 05/29/24 22:26 Dose: 5 mg Olanzapine (Olanzapine 2.5 Mg Tablet) 2.5 mg PO BID [facility] Last Admin: 05/30/24 08:53 Dose: 2.5 mg Omeprazole (Omeprazole 20 Mg Capsule.Dr) 20 mg PO DAILY@0700 [facility] Last Admin: 05/30/24 06:39 Dose: 20 mg Oxybutynin Chloride (Oxybutynin Chloride Er 5 Mg Tab.Er.24) 15 mg PO DAILY [facility] Last Admin: 05/30/24 08:52 Dose: 15 mg Trazodone HCl (Trazodone Hcl 50 Mg Tablet) 50 mg PO BEDTIME PRN PRN Reason: sleep Last Admin: 05/29/24 22:26 Dose: 50 mg Trazodone HCl (Trazodone Hcl 50 Mg Tablet) 50 mg PO BEDTIME [facility] Last Admin: 05/29/24 20:56 Dose: 50 mg Allergies Allergies Allergy/AdvReac Type Severity Reaction Status Date / Time sulfamethoxazole Allergy Unknown Verified 03/03/24 14:32 [From Sulfamethoxazole-Trimethoprim] trimethoprim Allergy Unknown Verified 03/03/24 14:32 [From Sulfamethoxazole-Trimethoprim] Assessment & Plan Assessment & Plan (1) Major neurocognitive disorder due to Alzheimer's disease, without behavioral disturbance: Status: Acute Code(s): G30.9 - Alzheimer's disease, unspecified; F02.80 - Dementia in other diseases classified elsewhere, unspecified severity, without behavioral disturbance, psychotic disturbance, mood disturbance, and anxiety Plan Elderly female with a past history of Alzheimer's, recently in a subacute rehab due to subdural hematoma referred for exacerbation of agitation. The patient is a very poor historian unable to provide any details still very agitated. Plan 03/20 continue tx. will check ammonia and depakote level on 03/22/24 at 7am. 03/21: continue current management and treatment plan. check labs tomorrow. 03/22: Continue current management and treatment plan. Check Depakote level and ammonia on 03/23. 03/23 increase trazodone up to 25 p.o. t.i.d. to target anxiety. 03/24 keep same treatment. 03/25 keep same treatment 03/26 keep same treatment 03/27 trazodone will be lowered to 12.5 p.o. t.i.d. 03/29/24 Increase lorazepam 0.5 t.i.d. p.r.n. 03/30 keep same treatment. 03/31 keep same treatment 04/01 keep same treatment 04/02 keep same treatment 04/03 Will schedule trazodone 50mg po qhs (slept only 2 hrs.), increase olanzapine 2.5mg po TID. 04/04 more redirectable from changes of meds yesterday- 04/05- CTP 04/06- continue plan of care 04/07 continue same treatment 04/08 keep same treatment 04/09 keep same treatment 04/10 paperwork for information of healthcare proxy was done. 04/11 continue current plans and regimen 04/12: Continue current regimen and plans. 04/13: Continue current regimen and plans 04/14 continue same treatment 04/15 continue same treatment 04/16 continue same treatment 04/17 today we have the court hearing for affirmation of healthcare proxy. 04/18-04/19 continue tx plan -labs drawn and pt with DIANA and mild hyponatremia; -consult placed; encouraging fluid 04/20 keep same treatment 04/21 keep same treatment. 04/22 she is slightly over-sedated so we are changing Zyprexa to 2.5 p.o. b.i.d.. Blood work came back with better creatinine. 04/23 keep same treatment. 04/24 keep same treatment, waiting for placement. 04/25: no change in presentation. continue current mgmt. 04/26: orthostatic hypotension, fell last night. remains on 1:1. encourage fluids, continue current mgmt. 04/27 keep same treatment 04/28 keep same treatment 04/29 keep same treatment 04/30 continue tx. 05/01 continue tx. 05/02 noted decrease in H&H, RN had reported blood in stool, ordered occult blood test x 3, started on PPI may need GI consult. 05/03 continue current tx. pending GI consult. 05/04 continue tx. repeat H&H improved. 05/05 continue tx. 05/06 continue tx. 05/07/24 Continue plan of care 05/08 continue tx. awaiting placement. 05/09/2024 Continue plan of care no major changes discharge planning 05/11 contine tx. 05/12 continue tx. 05/13 ordered labs/UA, head CT pt presented later in the day with AMS. 05/14 back to baseline mentation. labs, head CT unremarkable. 05/16: continue current management and treatment plan. 05/17: continue current management and treatment plan. 05/18 keep same treatment 05/19 keep same treatment 05/20 keep same treatment 05/21 keep same treatment 05/22 keep same treatment 05/23: fall with head strike, witnessed by staff. hospitalist consult placed, head CT ordered. head CT NEG for acute changes, hospitalist exam benign. hospitalist recs noted: avoid oral salt restriction, and avoid excess po free fluids. otherwise continue current mgmt. 05/24: per hospitalist, fluid restrict to 1.5-2L for hyponatremia. remains on 1:1 for fall risk. no concerning sequelae from yesterday's fall. continue current mgmt. 05/25: appears to be at baseline. awaiting conservatorship so [facility] can be obtained so pt can be sent to care home. nicole current mgmt. 05/26/2024 Continue plan of care current management patient waiting placement 05/27 continue tx. 05/28 continue tx. 05/29 hospitalist consult stat for oxygen desaturation to low 80's, started on 2l oxygen, stat cbc, cmp and chest CT. 05/30 continue tx Reason for continued inpatient stay Substantial Risk for: rapid decompensation and med/psych decompensation Time Spent With Patient Time: Total time managing care of this patient today ____ minutes.
--- NOTE | 2024-05-30 09:40 | P.EN_ITS ---
Event Note Date of Service: 05/30/24 Event Note: CTA of chest obtain that was negative for PE, though again showed mild ground- glass opacities concerning for artifact. Last night was notified by nursing that patient's O2 sat on right hand was 95% on RA both at rest and during ambulation to the bathroom. Spoke with nursing this morning at length about pt, and was notified that pt has been chronically difficult to get an accurate O2 sat on, especially on left hand that has noted deformity. Pt overall looks c linically stable and at baseline. No significant difficulty breathing cough above baseline. Latest vitals are stable and WNL: Pt afebrile, not tachycardic, and satting at 95% on RA. Will discontinue the supplemental O2. No indication for additional workup or treatment. Time Spent With Patient Time: Total time managing care of this patient today ____ minutes.
[2024-05-30 19:45] VITALS: BP 152/70; PULSE 75; RESP 18; TEMP 36.4; O2SAT 97
[2024-05-30] MEDS: traZODone HCL 50 MG TABLET PO (20:25)
[2024-05-30] MEDS: Donepezil HCl 5 MG TABLET PO (20:25)
[2024-05-31] MEDS: Levothyroxine Sodium 75 MCG TABLET PO (05:55)
[2024-05-31] MEDS: Omeprazole 20 MG CAPSULE.DR PO (05:55)
[2024-05-31 08:00] VITALS: BP 143/65; PULSE 60; RESP 16; TEMP 36.4; O2SAT 94
[2024-05-31] MEDS: oxyBUTYnin chloride ER 5 MG TAB.ER.24 15 MG PO (08:18)
[2024-05-31] MEDS: Atorvastatin Calcium 20 MG TABLET PO (08:18)
[2024-05-31] MEDS: Loratadine 10 MG TABLET PO (08:19)
[2024-05-31] MEDS: Divalproex Sodium Sprinkles 125 MG CAP.DR.SPR 250 MG PO ×3 (08:19→20:30)
[2024-05-31] MEDS: OLANZapine 2.5 MG TABLET PO ×2 (08:19→20:30)
--- NOTE | 2024-05-31 09:22 | P.PNPSI_ITS ---
Subjective Subjective Date of Service: 05/31/24 Reason For Visit: combative behaviors Interim History: Today: Reviewed case with staff. Met with patient who is on one-to-one, ambulating with walker. Constant prizer hand brought her to her room to put in hearing aids. Met with patient inside room. 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 Had to repeat questions numerous times. Reports mood as ?okay?. When asked what she has been doing today she responds ?nothing . She denies any SI/ AH/VH or thoughts of harming herself or others. SHe denies any pain or physical complaints. Sleep is ?good . Staff treating her good . Says she has been eating and denies any concerns about being on the unit. She has been observed in the presence of constant prizer hand, watching TV, walking about the unit with her walker Saturday: Met with pt, discussed with team who report no further symptoms of O2 desaturation. Supplemental O2 discontinued by hospitalist team. Pt denies sx, denies SOB, able to sleep and appears calm and comfortable in milieu. Review of Systems Review of Systems Monitoring oxygen saturation Yes all other systems are reviewed and are negative and Unobtainable due to mental status Constitutional: Reports no additional constitutional complaints, Denies chills, Denies fever(s) and Denies night sweats Eyes: Reports no additional eye complaints, Denies blurry vision, Denies change in vision, Denies diplopia, Denies eye discharge, Denies loss of vision and Denies eye pain Denies dizziness Cardiovascular: Reports no additional cardiovascular complaints, Denies chest pain, Denies lightheadedness, Denies Loss of Consciousness and Denies dyspnea Respiratory: Reports no additional respiratory complaints and Denies dyspnea Gastrointestinal: Reports no additional gastrointestinal complaints, Denies abdominal pain, Denies melena, Denies hematochezia, Denies change in bowel habits and Denies change in stool character Musculoskeletal: Reports no additional musculoskeletal complaints, Denies numbness and Denies tingling Reports confusion (chronic for the patient - per her demented baseline), Denies dizziness, Denies loss of vision, Denies numbness and Denies tingling Psychiatric: Reports no additional psychiatric complaints and Reports confusion (chronic for the patient - per her demented baseline) Endocrine: Reports no additional endocrine complaints Hematologic/Lymphatic: Reports no additional hematologic/lymphatic complaints Allergic/Immunologic: Reports no additional allergic/immunologic complaints Mental Status Exam Mental Status Exam Narrative: Appearance: casually groomed ambulating with walker. Behavior: calm Psychomotor: no agitation or retardation noted Speech: mumbles, TP: concrete TC: wanting to go home ongoing Mood:ok Affect:calm, congruent SI: none HI: none VH/AH: no overt signs Delusions: none noted Insight/judgment: impaired x 2 Memory/cog: alert Patient Appearance: Fatigued Patient Orientation: Person Level of Consciousness: Alert Patient Behavior: Appropriate, Cooperative and Good Eye Contact Mood Description: Calm Affect Description: Calm Patient Cognition Impaired: Yes Ability to Follow Directions: Fair Speech Pattern: Spontaneous Speech Diagnostics Vital Signs (24Hr): Vital Signs - 24 hr 05/30/24 19:45 05/31/24 08:00 Temperature 97.6 F 97.5 F Pulse Rate 75 60 Respiratory Rate 18 16 Blood Pressure 152/70 H 143/65 H Pulse Oximetry 97 94 Oxygen Delivery Method Room Air Room Air BMI result Body Mass Index 20.2 Labs 05/29/24 16:22 05/29/24 16:22 Labs: Laboratory Results - last 48 hr 05/29/24 05/29/24 16:22 16:46 WBC 8.3 RBC 3.87 L Hgb 11.7 L Hct 35.6 L MCV 92.0 MCH 30.2 MCHC 32.9 RDW 13.5 Plt Count 157 L MPV 10.9 Immature Gran % (Auto) 0.2 Neut % (Auto) 33.5 L Lymph % (Auto) 53.1 H [place] % (Auto) 11.6 H Eos % (Auto) 1.1 Baso % (Auto) 0.5 Lymph # (Auto) 4.4 [place] # (Auto) 1.0 Eos # (Auto) 0.1 Baso # (Auto) 0.0 Abs Immat Gran (auto) 0.02 Absolute Neuts (auto) 2.8 Absolute Nucleated RBC 0.000 Nucleated RBC % (auto) 0.0 Sodium 135 Potassium 4.8 Chloride 104 Carbon Dioxide 24 Anion Gap 12 BUN 18 H Creatinine 1.01 Estim Creat Clear Calc 38.5 Estimated GFR 53 Random Glucose 107 Calcium 8.6 Total Bilirubin 0.5 AST 23 ALT 12 Alkaline Phosphatase 96 Total Protein 6.1 L Albumin 3.5 Influenza Type A (PCR) NEGATIVE Influenza Type B (PCR) NEGATIVE RSV RNA Qual (PCR) NEGATIVE SARS-CoV-2 RNA (RT-PCR) NEGATIVE Imaging Radiology Impressions: ITS Impressions Chest X-Ray 04/21/24 14:43 IMPRESSION: Clear lungs. Electronically signed by: Micheal Barreto MD 04/21/2024 03:04 PM [facility] [place] Medications Medications Current Medications Acetaminophen (Acetaminophen 325 Mg Tablet) 975 mg PO TID PRN PRN Reason: pain scale 1-10 Al Hydroxide/Mg Hydroxide (Magnesium Hydrox/Alum Hydrox 30 Ml Oral.Susp) 30 ml PO Q6H PRN PRN Reason: Heartburn/Nausea Atorvastatin Calcium (Atorvastatin Calcium 20 Mg Tablet) 20 mg PO DAILY [facility] Last Admin: 05/31/24 08:18 Dose: 20 mg Bisacodyl (Bisacodyl 10 Mg Supp.Rect) 10 mg [place] DAILY PRN PRN Reason: Constipation Last Admin: 04/02/24 12:43 Dose: 10 mg Divalproex Sodium (Divalproex Sodium Sprinkles 125 Mg Cap.) 250 mg PO TID [facility] Last Admin: 05/31/24 08:19 Dose: 250 mg Donepezil HCl (Donepezil Hcl 5 Mg Tablet) 5 mg PO BEDTIME [facility] Last Admin: 05/30/24 20:25 Dose: 5 mg Levothyroxine Sodium (Levothyroxine Sodium 75 Mcg Tablet) 75 mcg PO DAILY@0600 [facility] Last Admin: 05/31/24 05:55 Dose: 75 mcg Loratadine (Loratadine 10 Mg Tablet) 10 mg PO DAILY [facility] Last Admin: 05/31/24 08:19 Dose: 10 mg Lorazepam (Lorazepam 0.5 Mg Tablet) 0.5 mg PO TID PRN PRN Reason: Anxiety Last Admin: 05/29/24 20:56 Dose: 0.5 mg Magnesium Hydroxide (Milk Of Magnesia 30 Ml Oral.Susp) 30 ml PO DAILY PRN PRN Reason: Constipation Last Admin: 03/28/24 20:36 Dose: 30 ml Olanzapine (Olanzapine 5 Mg Tablet) 5 mg PO Q6H PRN PRN Reason: agitation Last Admin: 05/29/24 22:26 Dose: 5 mg Olanzapine (Olanzapine 2.5 Mg Tablet) 2.5 mg PO BID [facility] Last Admin: 05/31/24 08:19 Dose: 2.5 mg Omeprazole (Omeprazole 20 Mg Capsule.) 20 mg PO DAILY@0700 [facility] Last Admin: 05/31/24 05:55 Dose: 20 mg Oxybutynin Chloride (Oxybutynin Chloride Er 5 Mg Tab.Er.24) 15 mg PO DAILY [facility] Last Admin: 05/31/24 08:18 Dose: 15 mg Trazodone HCl (Trazodone Hcl 50 Mg Tablet) 50 mg PO BEDTIME PRN PRN Reason: sleep Last Admin: 05/29/24 22:26 Dose: 50 mg Trazodone HCl (Trazodone Hcl 50 Mg Tablet) 50 mg PO BEDTIME [facility] Last Admin: 05/30/24 20:25 Dose: 50 mg Allergies Allergies Allergy/AdvReac Type Severity Reaction Status Date / Time sulfamethoxazole Allergy Unknown Verified 03/03/24 14:32 [From Sulfamethoxazole-Trimethoprim] trimethoprim Allergy Unknown Verified 03/03/24 14:32 [From Sulfamethoxazole-Trimethoprim] Assessment & Plan Assessment & Plan (1) Major neurocognitive disorder due to Alzheimer's disease, without behavioral disturbance: Status: Acute Code(s): G30.9 - Alzheimer's disease, unspecified; F02.80 - Dementia in other diseases classified elsewhere, unspecified severity, without behavioral disturbance, psychotic disturbance, mood disturbance, and anxiety Plan Elderly female with a past history of Alzheimer's, recently in a subacute rehab due to subdural hematoma referred for exacerbation of agitation. The patient is a very poor historian unable to provide any details still very agitated. Plan 03/20 continue tx. will check ammonia and depakote level on 03/22/24 at 7am. 03/21: continue current management and treatment plan. check labs tomorrow. 03/22: Continue current management and treatment plan. Check Depakote level and ammonia on 03/23. 03/23 increase trazodone up to 25 p.o. t.i.d. to target anxiety. 03/24 keep same treatment. 03/25 keep same treatment 03/26 keep same treatment 03/27 trazodone will be lowered to 12.5 p.o. t.i.d. 03/29/24 Increase lorazepam 0.5 t.i.d. p.r.n. 03/30 keep same treatment. 03/31 keep same treatment 04/01 keep same treatment 04/02 keep same treatment 04/03 Will schedule trazodone 50mg po qhs (slept only 2 hrs.), increase olanzapine 2.5mg po TID. 04/04 more redirectable from changes of meds yesterday- 04/05- CTP 04/06- continue plan of care 04/07 continue same treatment 04/08 keep same treatment 04/09 keep same treatment 04/10 paperwork for information of healthcare proxy was done. 04/11 continue current plans and regimen 04/12: Continue current regimen and plans. 04/13: Continue current regimen and plans 04/14 continue same treatment 04/15 continue same treatment 04/16 continue same treatment 04/17 today we have the court hearing for affirmation of healthcare proxy. 04/18-04/19 continue tx plan -labs drawn and pt with DIANA and mild hyponatremia; -consult placed; encouraging fluid 04/20 keep same treatment 04/21 keep same treatment. 04/22 she is slightly over-sedated so we are changing Zyprexa to 2.5 p.o. b.i.d.. Blood work came back with better creatinine. 04/23 keep same treatment. 04/24 keep same treatment, waiting for placement. 04/25: no change in presentation. continue current mgmt. 04/26: orthostatic hypotension, fell last night. remains on 1:1. encourage fluids, continue current mgmt. 04/27 keep same treatment 04/28 keep same treatment 04/29 keep same treatment 04/30 continue tx. 05/01 continue tx. 05/02 noted decrease in H&H, RN had reported blood in stool, ordered occult blood test x 3, started on PPI may need GI consult. 05/03 continue current tx. pending GI consult. 05/04 continue tx. repeat H&H improved. 05/05 continue tx. 05/06 continue tx. 05/07/24 Continue plan of care 05/08 continue tx. awaiting placement. 05/09/2024 Continue plan of care no major changes discharge planning 05/11 contine tx. 05/12 continue tx. 05/13 ordered labs/UA, head CT pt presented later in the day with AMS. 05/14 back to baseline mentation. labs, head CT unremarkable. 05/16: continue current management and treatment plan. 05/17: continue current management and treatment plan. 05/18 keep same treatment 05/19 keep same treatment 05/20 keep same treatment 05/21 keep same treatment 05/22 keep same treatment 05/23: fall with head strike, witnessed by staff. hospitalist consult placed, head CT ordered. head CT NEG for acute changes, hospitalist exam benign. hospitalist recs noted: avoid oral salt restriction, and avoid excess po free fluids. otherwise continue current mgmt. 05/24: per hospitalist, fluid restrict to 1.5-2L for hyponatremia. remains on 1:1 for fall risk. no concerning sequelae from yesterday's fall. continue current mgmt. 05/25: appears to be at baseline. awaiting conservatorship so [facility] can be obtained so pt can be sent [facility]. nicole current mgmt. 05/26/2024 Continue plan of care current management patient waiting placement 05/27 continue tx. 05/28 continue tx. 05/29 hospitalist consult stat for oxygen desaturation to low 80's, started on 2l oxygen, stat cbc, cmp and chest CT. 05/30 continue tx' 05/31 continue tx Reason for continued inpatient stay Substantial Risk for: med/psych decompensation Time Spent With Patient Time: Total time managing care of this patient today ____ minutes.
[2024-05-31 20:00] VITALS: BP 141/75; PULSE 84; RESP 16; TEMP 36.6; O2SAT 96
[2024-05-31] MEDS: Donepezil HCl 5 MG TABLET PO (20:30)
[2024-05-31] MEDS: traZODone HCL 50 MG TABLET PO (20:30)
[2024-06-01] MEDS: Levothyroxine Sodium 75 MCG TABLET PO (04:52)
[2024-06-01] MEDS: Omeprazole 20 MG CAPSULE.DR PO (05:22)
[2024-06-01 08:00] VITALS: BP 124/61; PULSE 95; RESP 18; TEMP 36.1; O2SAT 97
--- NOTE | 2024-06-01 08:32 | HO.PSYCHPN ---
Subjective Subjective Date of Service: 06/01/24 Reason For Visit: combative behaviors Subjective Notes: Conditional Voluntary Interim History: Pt slept through the night. She continues to take medications as prescribed. She had a brief episode of desaturation but did go up right after. No respiratory distress. She asks when is she going home, several times, including what day is today. She denies any physical concerns. Review of Systems Review of Systems Monitoring oxygen saturation Yes all other systems are reviewed and are negative and Unobtainable due to mental status Constitutional: Reports no additional constitutional complaints, Denies chills, Denies fever(s) and Denies night sweats Eyes: Reports no additional eye complaints, Denies blurry vision, Denies change in vision, Denies diplopia, Denies eye discharge, Denies loss of vision and Denies eye pain Denies dizziness Cardiovascular: Reports no additional cardiovascular complaints, Denies chest pain, Denies lightheadedness, Denies Loss of Consciousness and Denies dyspnea Respiratory: Reports no additional respiratory complaints and Denies dyspnea Gastrointestinal: Reports no additional gastrointestinal complaints, Denies abdominal pain, Denies melena, Denies hematochezia, Denies change in bowel habits and Denies change in stool character Musculoskeletal: Reports no additional musculoskeletal complaints, Denies numbness and Denies tingling Reports confusion (chronic for the patient - per her demented baseline), Denies dizziness, Denies loss of vision, Denies numbness and Denies tingling Psychiatric: Reports no additional psychiatric complaints and Reports confusion (chronic for the patient - per her demented baseline) Endocrine: Reports no additional endocrine complaints Hematologic/Lymphatic: Reports no additional hematologic/lymphatic complaints Allergic/Immunologic: Reports no additional allergic/immunologic complaints Mental Status Exam Mental Status Exam Narrative: Appearance: casually groomed ambulating with walker. Behavior: calm Psychomotor: no agitation or retardation noted Speech: mumbles, TP: concrete TC: wanting to go home ongoing Mood:ok Affect:calm, congruent SI: none HI: none VH/AH: no overt signs Delusions: none noted Insight/judgment: impaired x 2 Memory/cog: alert Patient Appearance: Fatigued Patient Orientation: Person Level of Consciousness: Alert Patient Behavior: Appropriate, Cooperative and Good Eye Contact Mood Description: Calm Affect Description: Calm Patient Cognition Impaired: Yes Ability to Follow Directions: Fair Speech Pattern: Spontaneous Speech Diagnostics Vital Signs (24Hr): Vital Signs - 24 hr 04/06/25 20:00 Temperature 97.9 F Pulse Rate 84 Respiratory Rate 16 Blood Pressure 141/75 H Pulse Oximetry 96 Oxygen Delivery Method Room Air BMI result Body Mass Index 20.2 Labs 05/29/24 16:22 05/29/24 16:22 Imaging Radiology Impressions: ITS Impressions Chest X-Ray 04/21/24 14:43 IMPRESSION: Clear lungs. Electronically signed by: Micheal Barreto MD 04/21/2024 03:04 PM [facility] Medications Medications Current Medications Acetaminophen (Acetaminophen 325 Mg Tablet) 975 mg PO TID PRN PRN Reason: pain scale 1-10 Al Hydroxide/Mg Hydroxide (Magnesium Hydrox/Alum Hydrox 30 Ml Oral.Susp) 30 ml PO Q6H PRN PRN Reason: Heartburn/Nausea Atorvastatin Calcium (Atorvastatin Calcium 20 Mg Tablet) 20 mg PO DAILY [facility] Last Admin: 05/31/24 08:18 Dose: 20 mg Bisacodyl (Bisacodyl 10 Mg Supp.Rect) 10 mg RI DAILY PRN PRN Reason: Constipation Last Admin: 04/02/24 12:43 Dose: 10 mg Divalproex Sodium (Divalproex Sodium Sprinkles 125 Mg Camilo.) 250 mg PO TID [facility] Last Admin: 05/31/24 20:30 Dose: 250 mg Donepezil HCl (Donepezil Hcl 5 Mg Tablet) 5 mg PO BEDTIME [facility] Last Admin: 05/31/24 20:30 Dose: 5 mg Levothyroxine Sodium (Levothyroxine Sodium 75 Mcg Tablet) 75 mcg PO DAILY@0600 [facility] Last Admin: 06/01/24 04:52 Dose: 75 mcg Loratadine (Loratadine 10 Mg Tablet) 10 mg PO DAILY [facility] Last Admin: 05/31/24 08:19 Dose: 10 mg Lorazepam (Lorazepam 0.5 Mg Tablet) 0.5 mg PO TID PRN PRN Reason: Anxiety Last Admin: 05/29/24 20:56 Dose: 0.5 mg Magnesium Hydroxide (Milk Of Magnesia 30 Ml Oral.Susp) 30 ml PO DAILY PRN PRN Reason: Constipation Last Admin: 03/28/24 20:36 Dose: 30 ml Olanzapine (Olanzapine 5 Mg Tablet) 5 mg PO Q6H PRN PRN Reason: agitation Last Admin: 05/29/24 22:26 Dose: 5 mg Olanzapine (Olanzapine 2.5 Mg Tablet) 2.5 mg PO BID [facility] Last Admin: 05/31/24 20:30 Dose: 2.5 mg Omeprazole (Omeprazole 20 Mg Capsule.Dr) 20 mg PO DAILY@0700 [facility] Last Admin: 06/01/24 05:22 Dose: 20 mg Oxybutynin Chloride (Oxybutynin Chloride Er 5 Mg Tab.Er.24) 15 mg PO DAILY [facility] Last Admin: 05/31/24 08:18 Dose: 15 mg Trazodone HCl (Trazodone Hcl 50 Mg Tablet) 50 mg PO BEDTIME PRN PRN Reason: sleep Last Admin: 05/29/24 22:26 Dose: 50 mg Trazodone HCl (Trazodone Hcl 50 Mg Tablet) 50 mg PO BEDTIME [facility] Last Admin: 05/31/24 20:30 Dose: 50 mg Allergies Allergies Allergy/AdvReac Type Severity Reaction Status Date / Time sulfamethoxazole Allergy Unknown Verified 03/03/24 14:32 [From Sulfamethoxazole-Trimethoprim] trimethoprim Allergy Unknown Verified 03/03/24 14:32 [From Sulfamethoxazole-Trimethoprim] Assessment & Plan Assessment & Plan (1) Major neurocognitive disorder due to Alzheimer's disease, without behavioral disturbance: Status: Acute Code(s): G30.9 - Alzheimer's disease, unspecified; F02.80 - Dementia in other diseases classified elsewhere, unspecified severity, without behavioral disturbance, psychotic disturbance, mood disturbance, and anxiety Plan Elderly female with a past history of Alzheimer's, recently in a subacute rehab due to subdural hematoma referred for exacerbation of agitation. The patient is a very poor historian unable to provide any details still very agitated. Plan 03/20 continue tx. will check ammonia and depakote level on 03/22/24 at 7am. 03/21: continue current management and treatment plan. check labs tomorrow. 03/22: Continue current management and treatment plan. Check Depakote level and ammonia on 03/23. 03/23 increase trazodone up to 25 p.o. t.i.d. to target anxiety. 03/24 keep same treatment. 03/25 keep same treatment 03/26 keep same treatment 03/27 trazodone will be lowered to 12.5 p.o. t.i.d. 03/29/24 Increase lorazepam 0.5 t.i.d. p.r.n. 03/30 keep same treatment. 03/31 keep same treatment 04/01 keep same treatment 04/02 keep same treatment 04/03 Will schedule trazodone 50mg po qhs (slept only 2 hrs.), increase olanzapine 2.5mg po TID. 04/04 more redirectable from changes of meds yesterday- 04/05- CTP 04/06- continue plan of care 04/07 continue same treatment 04/08 keep same treatment 04/09 keep same treatment 04/10 paperwork for information of healthcare proxy was done. 04/11 continue current plans and regimen 04/12: Continue current regimen and plans. 04/13: Continue current regimen and plans 04/14 continue same treatment 04/15 continue same treatment 04/16 continue same treatment 04/[address] hearing for affirmation of healthcare proxy. 04/18-04/19 continue tx plan -labs drawn and pt with DIANA and mild hyponatremia; -consult placed; encouraging fluid 04/20 keep same treatment 04/21 keep same treatment. 04/22 she is slightly over-sedated so we are changing Zyprexa to 2.5 p.o. b.i.d.. Blood work came back with better creatinine. 04/23 keep same treatment. 04/24 keep same treatment, waiting for placement. 04/25: no change in presentation. continue current mgmt. 04/26: orthostatic hypotension, fell last night. remains on 1:1. encourage fluids, continue current mgmt. 04/27 keep same treatment 04/28 keep same treatment 04/29 keep same treatment 04/30 continue tx. 05/01 continue tx. 05/02 noted decrease in H&H, RN had reported blood in stool, ordered occult blood test x 3, started on PPI may need GI consult. 05/03 continue current tx. pending GI consult. 05/04 continue tx. repeat H&H improved. 05/05 continue tx. 05/06 continue tx. 05/07/24 Continue plan of care 05/08 continue tx. awaiting placement. 05/09/2024 Continue plan of care no major changes discharge planning 05/11 contine tx. 05/12 continue tx. 05/13 ordered labs/UA, head CT pt presented later in the day with AMS. 05/14 back to baseline mentation. labs, head CT unremarkable. 05/16: continue current management and treatment plan. 05/17: continue current management and treatment plan. 05/18 keep same treatment 05/19 keep same treatment 05/20 keep same treatment 05/21 keep same treatment 05/22 keep same treatment 05/23: fall with head strike, witnessed by staff. hospitalist consult placed, head CT ordered. head CT NEG for acute changes, hospitalist exam benign. hospitalist recs noted: avoid oral salt restriction, and avoid excess po free fluids. otherwise continue current mgmt. 05/24: per hospitalist, fluid restrict to 1.5-2L for hyponatremia. remains on 1:1 for fall risk. no concerning sequelae from yesterday's fall. continue current mgmt. 05/25: appears to be at baseline. awaiting conservatorship so [facility] can be obtained so pt can be sent to care home. nicole current mgmt. 05/26/2024 Continue plan of care current management patient waiting placement 05/27 continue tx. 05/28 continue tx. 05/29 hospitalist consult stat for oxygen desaturation to low 80's, started on 2l oxygen, stat cbc, cmp and chest CT. 05/30 continue tx' 05/31 continue tx 06/01 continue tx. awaiting placement. Reason for continued inpatient stay Substantial Risk for: inability to function Time Spent With Patient Time: Total time managing care of this patient today ____ minutes.
[2024-06-01] MEDS: OLANZapine 2.5 MG TABLET PO ×2 (09:05→20:34)
[2024-06-01] MEDS: Divalproex Sodium Sprinkles 125 MG CAP.DR.SPR 250 MG PO ×3 (09:05→20:34)
[2024-06-01] MEDS: Loratadine 10 MG TABLET PO (09:05)
[2024-06-01] MEDS: Atorvastatin Calcium 20 MG TABLET PO (09:05)
[2024-06-01] MEDS: oxyBUTYnin chloride ER 5 MG TAB.ER.24 15 MG PO (09:05)
--- NOTE | 2024-06-01 18:58 | PC.NURSE ---
Pt is alert, oriented to self only, otherwise confused. Visible in a milieu eating or watching TV, wandering in hallways or resting in bed. Compliant with meds. Before 2PM one of the CNAs reported that Jeannie is having SOB. I immediately rushed to her room grabbing BP machine with me. Jeannie was in her bed, no SOB or respiratory distress noted. BP 137/84, P 78, T 97.3. It was difficult to get O2sat. Her hands were cold, even her ear lobes. First O2sat was 82 and raising to 94 then fluctuating to lower and higher again. Jeannie's O2sat was checked several times later on and stayed between 97-99% on RA. Continues 1:1 observation for safety. Watching TV at this time. No c/o reported or observed. Will continue to monitor. Bee Tobin Notified. [ End ]
[2024-06-01 20:00] VITALS: BP 149/75; PULSE 71; TEMP 36.5; O2SAT 97
[2024-06-01] MEDS: traZODone HCL 50 MG TABLET PO (20:34)
[2024-06-01] MEDS: Donepezil HCl 5 MG TABLET PO (20:34)
[2024-06-02] MEDS: Omeprazole 20 MG CAPSULE.DR PO (06:17)
[2024-06-02] MEDS: Levothyroxine Sodium 75 MCG TABLET PO (06:18)
[2024-06-02 06:32] LABS: Glucose, Whole Blood 86 mg/dL (60-115)
--- NOTE | 2024-06-02 06:32 | ECG_ITS ---
Test Reason : altered mental status change Blood Pressure : */* mmHG Vent. Rate : 88 BPM Atrial Rate : * BPM P-R Int : * ms QRS Dur : 102 ms QT Int : 450 ms P-R-T Axes : * -51 -17 degrees QTcB Int : 544 ms Atrial fibrillation with premature ventricular or aberrantly conducted complexes Left axis deviation Minimal voltage criteria for LVH, may be normal variant ( [place] product ) Cannot rule out Anteroseptal infarct , age undetermined Abnormal ECG No previous ECGs available Referred By: Chris Calvin Electronically Signed By:
--- NOTE | 2024-06-02 06:50 | PM.PSYDC ---
DS: Providers Provider Date of Service: 06/02/24 Date of admission: 03/05/24 12:33 Date of discharge: 06/02/24 Primary care physician: Joseph Alejandro MD Consults: 04/21/24 14:30 Consult to Hospitalist Routine Comment: Consulting Provider: [facility] Reason For Exam: SOB, htn with nl pulse 04/25/24 18:05 Consult to Hospitalist Stat Comment: Consulting Provider: [facility] Reason For Exam: fall 05/03/24 12:07 Consult to Gastroenterology Routine Consulting Provider: Mere Joyce Reason for consultation: hematochezia, dropped in H&H since admission Has provider been notified: Yes 05/29/24 16:20 Consult to Hospitalist Stat Comment: Taty Inman notified Consulting Provider: [facility] Reason For Exam: desaturating, afebrile, no underlying respiratory DS: Diagnosis Discharge Diagnosis (1) Major neurocognitive disorder due to Alzheimer's disease, without behavioral disturbance: Status: Acute DS: Medications Discharge Medications Home Medications: Home Medications ?Medication ?Instructions ?Recorded ?Confirmed cholecalciferol (vitamin D3) 50 50 mcg PO DAILY 03/04/24 03/04/24 mcg (2,000 unit) tablet (Vitamin D3) fluticasone propionate 50 2 spray intranasal DAILY 03/04/24 03/04/24 mcg/actuation nasal spray,suspension timolol maleate 0.5 % eye drops 1 drp ophthalmic (eye) DAILY 03/04/24 03/04/24 Previous Rx's ?Medication ?Instructions ?Recorded acetaminophen 325 mg tablet 975 mg (3 x 325 mg) PO TID PRN 06/02/24 pain scale 1-10 #0 tabs atorvastatin 20 mg tablet 20 mg PO DAILY #0 tabs 06/02/24 divalproex 125 mg capsule,delayed 250 mg (2 x 125 mg) PO TID #0 caps 06/02/24 release sprinkle donepezil 5 mg tablet 5 mg PO BEDTIME #0 tabs 06/02/24 levothyroxine 75 mcg tablet 75 mcg PO DAILY@0600 #0 tabs 06/02/24 loratadine 10 mg tablet 10 mg PO DAILY #0 tabs 06/02/24 lorazepam 0.5 mg tablet 0.5 mg PO TID PRN Anxiety #0 tabs 06/02/24 olanzapine 2.5 mg tablet 2.5 mg PO BID #0 tabs 06/02/24 olanzapine 5 mg tablet 5 mg PO Q6H PRN agitation #0 tabs 06/02/24 omeprazole 20 mg capsule,delayed 20 mg PO DAILY@0700 #0 caps 06/02/24 release oxybutynin chloride 5 mg 15 mg (3 x 5 mg) PO DAILY #0 tabs 06/02/24 tablet,extended release 24 hr trazodone 50 mg tablet 50 mg PO BEDTIME #0 tabs 06/02/24 trazodone 50 mg tablet 50 mg PO BEDTIME PRN sleep #0 tabs 06/02/24 Data Data Completed and Pending Completed studies during hospitalization [Text1]: 05/26/24 05/27/24 05/29/24 12:25 20:41 16:22 WBC 8.3 RBC 3.87 L Hgb 11.7 L Hct 35.6 L MCV 92.0 MCH 30.2 MCHC 32.9 RDW 13.5 Plt Count 157 L MPV 10.9 Immature Gran % (Auto) 0.2 Neut % (Auto) 33.5 L Lymph % (Auto) 53.1 H [place] % (Auto) 11.6 H Eos % (Auto) 1.1 Baso % (Auto) 0.5 Lymph # (Auto) 4.4 [place] # (Auto) 1.0 Eos # (Auto) 0.1 Baso # (Auto) 0.0 Abs Immat Gran (auto) 0.02 Absolute Neuts (auto) 2.8 Absolute Nucleated RBC 0.000 Nucleated RBC % (auto) 0.0 Sodium 136 135 Potassium 4.2 4.8 Chloride 102 104 Carbon Dioxide 29 24 Anion Gap 9 L 12 BUN 14 18 H Creatinine 1.02 1.01 Estim Creat Clear Calc 38.2 38.5 Estimated GFR 52 53 POC Glucose Random Glucose 116 H 107 Calcium 8.9 8.6 Total Bilirubin 0.5 0.5 AST 21 23 ALT 12 12 Alkaline Phosphatase 94 96 Total Protein 6.1 L 6.1 L Albumin 3.5 3.5 Urine Color Yellow Urine Appearance Clear Urine pH 8.0 Ur Specific [place] 1.010 Urine Protein Negative Urine Glucose (UA) Negative Urine Ketones Negative Urine Blood Negative Urine Nitrite Negative Ur Leukocyte Esterase Small (1+) H Urine RBC 0-2 Urine WBC 0-5 Ur Squamous Epith Cells 0-2 Urine Bacteria None Seen Hyaline Casts 0-2 Influenza Type A (PCR) Influenza Type B (PCR) RSV RNA Qual (PCR) SARS-CoV-2 RNA (RT-PCR) 05/29/24 06/02/24 16:46 06:28 WBC RBC Hgb Hct MCV MCH MCHC RDW Plt Count MPV Immature Gran % (Auto) Neut % (Auto) Lymph % (Auto) [place] % (Auto) Eos % (Auto) Baso % (Auto) Lymph # (Auto) [place] # (Auto) Eos # (Auto) Baso # (Auto) Abs Immat Gran (auto) Absolute Neuts (auto) Absolute Nucleated RBC Nucleated RBC % (auto) Sodium Potassium Chloride Carbon Dioxide Anion Gap BUN Creatinine Estim Creat Clear Calc Estimated GFR POC Glucose 86 Random Glucose Calcium Total Bilirubin AST ALT Alkaline Phosphatase Total Protein Albumin Urine Color Urine Appearance Urine pH Ur Specific [place] Urine Protein Urine Glucose (UA) Urine Ketones Urine Blood Urine Nitrite Ur Leukocyte Esterase Urine RBC Urine WBC Ur Squamous Epith Cells Urine Bacteria Hyaline Casts Influenza Type A (PCR) NEGATIVE Influenza Type B (PCR) NEGATIVE RSV RNA Qual (PCR) NEGATIVE SARS-CoV-2 RNA (RT-PCR) NEGATIVE 05/27/24 22:38 Urine clean catch - Clean Catch Midstream Urine Culture - Final 05/22/24 22:01 Urine clean catch - Clean Catch Midstream Urine Culture - Final 04/25/24 00:00 Urine clean catch - Clean Catch Midstream Urine Culture - Final No growth. 04/14/24 Unknown Urine clean catch - Clean Catch Midstream Urine Culture - Final 03/13/24 03:00 Urine clean catch - Clean Catch Midstream Urine Culture - Final 03/10/24 Unknown Urine clean catch - Clean Catch Midstream Urine Culture - Final 03/03/24 Unknown Urine clean catch - Clean Catch Midstream Urine Culture - Final Imaging Diagnostic Imaging Impressions Chest X-Ray 04/21/24 14:43 IMPRESSION: Clear lungs. Electronically signed by: Micheal Barreto MD 04/21/2024 03:04 PM [facility] [place] [place] DS: Summary Hospital Course Hospital Course: The patient is a 78-year-old female, , mother of adult children, who was a resident of a intermediate facility subacute rehab transferred to this facility for exacerbation of agitation and assaultive behavior. Apparently, the patient had a fall in the last months and she was hospitalized for subdural hematoma later on, she was transferred to a subacute rehab. Apparently in the last month she had been in the emergency room several times due to aggressive behavior towards staff. She was transferred here, assessed by the care team and transferring to this facility for psychiatric stabilization. In our emergency room, the patient was confused, restless, needed to be chemically restrained with Zyprexa due to disorganized behavior. She was transferred into this facility in a Section 12 B. on admission, the patient was confused, she was perseverative stating that she wants to go back home and she was unable to verbalize how come she ended up in the hospital. She was irritable but redirectable, unable to provide further details. It is obvious that the patient was cognitively impaired. We will try to gather more collateral information at this moment she is unable to understand Gandhi warning and she is not going to sign a conditional voluntary. We will continue with the medical workout and we will keep her on one-to-one for safety Past Psychiatric History: Inpt: none in the past HOSPITAL COURSE On the unit, pt was admitted on a CV signed by HCP. Pt presented as not oriented to place, month year nor situation. She was impulsive, ambulating with walker, often bumping into people or wall. She had not awareness of risk for fall and was kept on a one to one for this reason. In terms of medications, she was started on depakote for impulsive, explosive behaviors related to dementia. She was also started on low dose of olanzapine 2.5mg po BID. She was transferred to medical floor after RN reported pt appeared more confused than normal and there was concern about her speech. She was awaiting head CT for stroke and CTA. VS stable on discharge. Time Spent with Patient Time attestation: Total time managing care of this patient today ____ minutes. Discharge Plan Discharge Anticipated Discharge Date/Time: 06/02/24 06:44 Patient Disposition: Xfer Acute Care Hospital Discharge Diagnosis: major neurocognitive disorder Referrals: Joseph Alejandro MD [Primary Care Provider] - 1 Week Discharge Medications: New acetaminophen 325 mg Tablet 975 mg PO TID PRN (Reason: pain scale 1-10) Qty: 0 0RF atorvastatin 20 mg Tablet 20 mg PO DAILY Qty: 0 0RF donepezil 5 mg Tablet 5 mg PO BEDTIME Qty: 0 0RF trazodone 50 mg Tablet 50 mg PO BEDTIME PRN (Reason: sleep) Qty: 0 0RF trazodone 50 mg Tablet 50 mg PO BEDTIME Qty: 0 0RF olanzapine 5 mg Tablet 5 mg PO Q6H PRN (Reason: agitation) Qty: 0 0RF olanzapine 2.5 mg Tablet 2.5 mg PO BID Qty: 0 0RF levothyroxine 75 mcg Tablet 75 mcg PO DAILY@0600 Qty: 0 0RF lorazepam 0.5 mg Tablet 0.5 mg PO TID PRN (Reason: Anxiety) Qty: 0 0RF oxybutynin chloride 5 mg Tablet Extended Release 24hr 15 mg PO DAILY Qty: 0 0RF omeprazole 20 mg Capsule,Delayed Release(Dr/Ec) 20 mg PO DAILY@0700 Qty: 0 0RF divalproex 125 mg Capsule, Delayed Rel Sprinkle 250 mg PO TID Qty: 0 0RF loratadine 10 mg Tablet 10 mg PO DAILY Qty: 0 0RF Continued timolol maleate 0.5 % drops 1 drp ophthalmic (eye) DAILY Rx Instructions: Both eyes fluticasone propionate 50 mcg/actuation spray,suspension 2 spray intranasal DAILY Rx Instructions: Administer in each nostril cholecalciferol (vitamin D3) [Vitamin D3] 50 mcg (2,000 unit) Tablet 50 mcg PO DAILY Discontinued acetaminophen 325 mg Tablet 975 mg PO TID PRN (Reason: Fever Or Pain) oxybutynin chloride 15 mg tablet extended release 24hr 15 mg PO DAILY atorvastatin 20 mg tablet 20 mg PO DAILY donepezil 5 mg tablet 5 mg PO BEDTIME trazodone 50 mg Tablet 25 mg PO BEDTIME PRN (Reason: Agitation) trazodone 50 mg Tablet 25 mg PO Q6H PRN (Reason: Agitation) olanzapine 2.5 mg Tablet 2.5 mg PO BID PRN (Reason: Agitation) olanzapine [Zyprexa] 2.5 mg Tablet 2.5 mg PO BID levothyroxine 75 mcg tablet 75 mcg PO DAILY@0600 famotidine 20 mg tablet 20 mg PO BEDTIME lorazepam 0.5 mg Tablet 0.5 mg PO BID PRN (Reason: severe agitation ) Rx Instructions: For sever agitation that is not responsive to trazadone magnesium hydroxide [Milk of Magnesia] 400 mg/5 mL Suspension 30 ml PO DAILY PRN (Reason: Constipation) Rx Instructions: For no BM in 3 days bisacodyl 10 mg Suppository 10 mg [place] DAILY PRN (Reason: Constipation) Rx Instructions: If no BM for 8 hours after M.O.M Fleet Enema 19-7 gram/118 mL Enema 118 ml [place] DAILY PRN (Reason: Constipation) Rx Instructions: IF no BM 8 hours after Bisacodyl loratadine 10 mg tablet 10 mg PO DAILY divalproex 250 mg tablet extended release 24 hr 250 mg PO TID naloxone [Narcan] 4 mg/actuation [place],Non-Aerosol 1 spray INTRANASAL Q3M PRN (Reason: Opiate Reversal) Rx Instructions: spray 1 dose into ONE nostril; alternate nostrils w each dose until help arrives No Action aspirin 81 mg tablet,delayed release (DR/EC) 81 mg PO DAILY divalproex 250 mg tablet extended release 24 hr 250 mg PO BID Discharge Orders: Discharge Order (Routine); Ordered 06/02/24 Ordered By: Bee Bronson Diet: Regular diet Activity on Discharge: Use cane or walker Stand Alone Forms: Patient Portal Discharge page Print Language: [place] Care Plan Goals: transfer to medical floor Health Concerns: transfer to medical floor Plan of Treatment: transfer to medical floor Assessment: na Discharge Date/Time: 06/02/24 07:17
[2024-06-02 06:58] LABS: MANUAL DIFF FLAG NO
[2024-06-02 06:59] LABS: Basophils Percent Auto 0.4 % (0-2); Eosinophils Absolute Auto 0.2 X10*3/uL (0.0-0.4); Eosinophils Percent Auto 2.1 % (0-4); Hematocrit 30.6 % (37.0-47.0); Hemoglobin 10.5 g/dl (12.0-16.0); Imm Gran Abs Auto 0.01 X10*3/uL (0.00-0.03); Imm Gran Pct Auto 0.1 % (0.0-0.4); Lymphocytes Absolute Auto 4.6 X10*3/uL (1.2-4.9); Lymphocytes Percent Auto 58.3 % (20-40); Mean Corpuscular HGB Conc 34.3 g/dl (31.0-35.0); Mean Corpuscular Hemoglobin 30.5 pg (27.0-33.0); Mean Platelet Volume 11.3 fL (9.4-12.3); Monocytes Percent Auto 12.7 % (2-11); Neutrophils Absolute Auto 2.1 x10*3/uL (2.0-8.3); Neutrophils Percent Auto 26.4 % (45-73); Platelet Count 142 X10*3/uL (160-400); Red Blood Count 3.44 X10*6/uL (4.20-5.50); Red Cell Distribution Width 13.2 % (11.0-16.0)
[2024-06-02 07:14] LABS: Lactic Acid 1.1 mmol/L (0.5-2.0)
[2024-06-02 07:15] LABS: Alanine Aminotransferase 14 U/L (0-31); Albumin Level 3.1 g/dL (3.5-5.0); Alkaline Phosphatase 98 U/L (39-117); Anion Gap 9 (12-20); Aspartate Amino Transferase 25 U/L (5-31); Bilirubin Total 0.4 mg/dL (0.0-1.0); Blood Urea Nitrogen 18 mg/dL (9-16); Calcium 8.3 mg/dL (8.4-10.2); Carbon Dioxide 24 mmol/L (22-29); Chloride 99 mmol/L (96-108); Creatinine Clr Calc Pharmacy 42.3; Estimated Glomerular Filt Rate 59; Glucose Random 87 mg/dL (60-115); Potassium 4.3 mmol/L (3.3-5.1); Sodium 128 mmol/L (135-145); Total Protein 5.4 g/dL (6.5-8.0)
[2024-06-02 07:21] LABS: Troponin-I High Sensitivity 5.1 ng/L (<3.5-17.0)
[2024-06-02] MEDS: iohexoL 350 MG/ML 100 ML INFUS..BTL IV (07:23)
[2024-06-02 07:49] LABS: Cholesterol 154 mg/dL (<200); HDL Cholesterol 36 mg/dL (>40); LDL Cholesterol Calculated 85 mg/dL (<100); Triglycerides 167 mg/dL (<150)
== END 2024-06-02 07:17 | disposition short-term general hospital (02) | DRG 57 ==
LOC: HO.ED 21:34 → HO.PGERI 03-05 12:46
PROVIDERS: Hospitalist; Internal Medicine; Physician Assistant Medical; Psychiatry & Neurology Psychiatry; Student in an Organized Health Care Education/Training Program; Admitting Provider Social Worker; Emergency Provider Emergency Medicine; PCP Internal Medicine; Visit Provider Social Worker
DX: G30.9 Alzheimer's disease, unspecified (principal); F02.811 Dementia in other diseases classified elsewhere, unspecified severity, with agitation; J98.11 Atelectasis; G40.909 Epilepsy, unspecified, not intractable, without status epilepticus; E03.9 Hypothyroidism, unspecified; W19.XXXA Unspecified fall, initial encounter; Z20.822 Contact with and (suspected) exposure to COVID-19; Z79.51 Long term (current) use of inhaled steroids; Z79.890 Hormone replacement therapy; Z79.899 Other long term (current) drug therapy
CPT/HCPCS: 0241U; 36415; 70450; 70496; 70498; 71046; 71250; 71275; 72125; 73521; 80048; 80053; 80061; 80164; 81001; 82140; 82947; 83036; 83605; 83735; 83935; 84300; 84439; 84443; 84484; 85025; 85027; 87086; 92526; 93005; 99284; Q9967; S9485

== ENCOUNTER → 2024-03-03 15:34 | Outpatient (BNV) | payer OTHER, SELFPAY | PROVIDERS: Emergency Provider Emergency Medicine; PCP Internal Medicine; Visit Provider Social Worker | DX: G30.9 Alzheimer's disease, unspecified (principal); F02.818 Dementia in other diseases classified elsewhere, unspecified severity, with other behavioral disturbance | CPT/HCPCS: 90792; 99231; 99232 ==

== ENCOUNTER 2024-03-05 12:33 | Outpatient (BNV) | payer MEDICARE, MEDICAID, SELFPAY | END 2024-05-29 16:26 | PROVIDERS: Admitting Provider Social Worker; Emergency Provider Emergency Medicine; PCP Internal Medicine; Visit Provider Specialist | DX: R09.02 Hypoxemia (principal); R00.0 Tachycardia, unspecified | CPT/HCPCS: 71250; 71275 ==

== ENCOUNTER 2024-03-05 12:33 | Outpatient (BNV) | payer MEDICARE, SELFPAY | END 2024-04-25 18:51 | PROVIDERS: Admitting Provider Social Worker; Emergency Provider Emergency Medicine; PCP Internal Medicine; Visit Provider Nuclear Medicine | DX: G30.9 Alzheimer's disease, unspecified (principal); F02.80 Dementia in other diseases classified elsewhere, unspecified severity, without behavioral disturbance, psychotic disturbance, mood disturbance, and anxiety; M25.551 Pain in right hip; M25.552 Pain in left hip; M54.2 Cervicalgia; W19.XXXA Unspecified fall, initial encounter | CPT/HCPCS: 70450; 72125; 73521 ==

== ENCOUNTER 2024-03-05 12:33 | Outpatient (BNV) | payer MEDICARE, MEDICAID, SELFPAY | END 2024-06-02 06:37 | PROVIDERS: Admitting Provider Social Worker; Emergency Provider Emergency Medicine; PCP Internal Medicine; Visit Provider Radiology Diagnostic Radiology | DX: R41.82 Altered mental status, unspecified (principal) | CPT/HCPCS: 70450; 70496; 70498 ==

== ENCOUNTER 2024-03-05 12:33 | Outpatient (BNV) | payer MEDICARE, SELFPAY | END 2024-05-23 10:14 | PROVIDERS: Admitting Provider Social Worker; Emergency Provider Emergency Medicine; PCP Internal Medicine; Visit Provider Radiology Diagnostic Radiology | DX: S09.90XA Unspecified injury of head, initial encounter (principal) | CPT/HCPCS: 70450 ==

== ENCOUNTER 2024-03-05 12:33 | Outpatient (BNV) | payer MEDICARE, SELFPAY | END 2024-04-21 14:43 | PROVIDERS: Admitting Provider Social Worker; Emergency Provider Emergency Medicine; PCP Internal Medicine; Visit Provider Radiology Diagnostic Radiology | DX: R06.02 Shortness of breath (principal) | CPT/HCPCS: 71046 ==

== ENCOUNTER 2024-03-05 12:33 | Outpatient (BNV) | payer MEDICARE, SELFPAY | END 2024-05-13 17:58 | PROVIDERS: Admitting Provider Social Worker; Emergency Provider Emergency Medicine; PCP Internal Medicine; Visit Provider Radiology Diagnostic Radiology | DX: R41.82 Altered mental status, unspecified (principal) | CPT/HCPCS: 70450 ==

== ENCOUNTER → 2024-03-05 12:33 | Outpatient (BNV) | payer MEDICARE, SELFPAY | PROVIDERS: Admitting Provider Social Worker; Emergency Provider Emergency Medicine; PCP Internal Medicine; Visit Provider Internal Medicine | DX: R03.0 Elevated blood-pressure reading, without diagnosis of hypertension (principal) | CPT/HCPCS: 99221; 99499 ==

== ENCOUNTER → 2024-06-02 07:00 | Outpatient (BNV) | payer OTHER, MEDICAID, SELFPAY | PROVIDERS: Admitting Provider Physician Assistant; PCP Internal Medicine; Visit Provider Internal Medicine Cardiovascular Disease | DX: I34.0 Nonrheumatic mitral (valve) insufficiency (principal); I35.8 Other nonrheumatic aortic valve disorders; I51.89 Other ill-defined heart diseases | CPT/HCPCS: 93306 ==

== ENCOUNTER 2024-06-02 07:15 | Inpatient (IN) | payer OTHER, MEDICAID, SELFPAY ==
--- NOTE | 2024-06-02 07:00 | CA_ITS ---
Transthoracic Echocardiogram Patient (Last, First, Middle): Jeannie Mascorro, Gender: Female Date of : 1945 Age: 79 Procedure Date: 06/02/2024 Procedure Type: Transthoracic Echocardiogram Location[place] [facility] [place] Height: 160.02 cm Weight: 57.61 kg BSA: 1.59 m2 Heart Rate: bpm BP: 156 / 111 mmHg Waiter/Waitress Informal: Referring MD: Janki Hale PA-C Symptoms: ?TIA Study Quality: Adequate ECG Rhythm: Sinus Conclusions: - Normal left ventricular cavity size. There is mildly increased left ventricular wall thickness. The left ventricular systolic function is borderline reduced. The visually estimated ejection fraction is between 45-50%. - E/E prime ratio is >15, consistent with elevated filling pressures. - The basal inferior and mid inferior segments are akinetic. - Normal right ventricular cavity size and systolic function. - There is mild to moderate mitral valve regurgitation. Findings Procedure Information Contrast agent, definity, is being given per protocol without apparent complications. Left Ventricle Normal left ventricular cavity size. There is mildly increased left ventricular wall thickness. The left ventricular systolic function is borderline reduced. The visually estimated ejection fraction is between 45 50%. There is evidence of regional wall motion abnormalities. Abnormal diastolic function is noted. Spectral Doppler is indicative of an impaired relaxation filling pattern. E/E prime ratio is >15, consistent with elevated filling pressures. Wall Motion Rest Echo Findings The basal inferior and mid inferior segments are akinetic. Right Ventricle Normal right ventricular cavity size and systolic function. Atria The left atrium is normal in size. The right atrium is normal in size. Aortic Valve There is a normal trileaflet aortic valve. There is mild calcification of the aortic valve. There is no aortic valve stenosis. There is no aortic valve regurgitation. Mitral Valve The mitral valve appears normal. There is mild to moderate mitral valve regurgitation. There is no mitral valve stenosis. Pulmonic Valve The pulmonic valve is normal. There is no pulmonic valve regurgitation. Tricuspid Valve Normal tricuspid valve structure. There is no tricuspid valve regurgitation. Tricuspid regurgitation envelope is inadequate for calculation of right ventricular systolic pressure. Normal right atrial pressure. Great Vessels All visible segments of the aorta are normal in size. Venous The inferior vena cava is normal in size and collapses greater than 50% with inspiration. Pericardium/Pleural There is no evidence of pericardial effusion. Prior Study Comparison No prior study available for comparison. Measurements 2D Linear Measurements IVSd: 1.10 0.6-0.9/0.6-1.0 cm LVIDd: 3.88 3.9-5.3/4.2-5.9 cm LVIDd Index: 2.44 2.4-3.2/2.2-3.1 cm/m2 LVIDs: 2.91 2.0-3.6 cm LVPWd: 1.03 0.7-1.1 cm LA Diam: 3.60 2.7-3.8/3.0-4.0 cm LAIDs Index: 2.26 1.5-2.3 cm/m2 LV Mass: 165.02 67-162/88-224 g LV Mass Index: 103.78 43-95/49-115 g/m2 LVOT Diam: 2.10 3.0+(-)1.3 cm 2D Systolic Function EF 4C: 46.90 >55% EF 2C: 31.50 >55% EF BiP: 40.00 >55% Mitral Valve MV VTI: 0.41 MV Pk Edison: 1.55 MV Mn Edison: 0.71 MV Pk Grad: 10.00 MV Mn Grad: 3.00 MV Pk E: 0.84 MV PK A: 1.32 MV Decel Time: 174.00 E/A: 0.60 E'Lateral: 6.31 E'Medial: 4.03 E/E' Med: 20.70 E/E' Lat: 13.20 PHT: 51.00 MVA PHT: 4.31 MVA Continuity: 1.54 Decel Harding: 4.79 Aortic Valve AoV Pk Edison: 1.46 AoV Mn Edison: 0.99 AoV VTI: 0.36 AoV Pk Grad: 9.00 Aov Mn Grad: 5.00 ALDA Cont.VTI: 1.76 LVOT LVOT Pk Edison: 0.74 LVOT Mn Edison: 0.43 LVOT VTI: 0.18 LVOT Pk Grad: 2.00 LVOT Mn Grad: 1.00 LVOT Diam: 2.10 LVOT Area: 3.46 Diastolic Function MV Pk E: 0.84 MV Pk A: 1.32 E/A: 0.60 E'Medial: 4.03 E/E' Med: 20.70 E' Laterial: 6.31 E/E' Lat: 13.20 Right Ventricle TAPSE (mm): 26.10 TVS' Edison: 12.50 Tricuspid Valve TR Pk Edison: 2.16 TR Pk Grad: 19.00 Great Vessels Aorta Sinus of Valsalva: 3.00 2.0-3.5 cm Ao Asc: 3.40 2.1-3.4 cm Pulmonary Valve PV Pk Edison: 0.81 Peak PV Grad: 3.00 Updated in Other Vendor System with Status of Final Drew Duong MD electronically signed on 06/03/2024 1:32:21 PM with status of Final
--- NOTE | 2024-06-02 07:22 | PM.IMHP ---
History of Present Illness Date of Service: 06/02/24 Attending physician on admission: Chris Calvin Chief Complaint: AMS ?TIA Patient is an 79-year-old female with a past medical history significant for HTN, HLD, GERD, dementia, hypothyroid, initially on [facility], code stroke called due to a brief moment of altered mental status. Patient was not responsive to nursing staff but does wear hearing aids and did not have them in. She was still having trouble understanding after they placed her hearing aids. She asked to go to the bathroom and was able to ambulate without difficulty with her walker. Her speech is questionably slurred per the nursing staff but understandable. EKG was normal, blood pressure normal systolic in the 120s. Blood glucose 86. She was transferred off the psych floor to [facility] for possible stroke versus TIA. NIH score 1 Review of Systems Review of Systems: pt with dementia, and hard of hearing. responsive but not to questions. Yes Unobtainable due to mental status [facility] Medical History Dementia H/O: hypothyroidism Glaucoma Functional capacity: uses cane/walker Social History Household Members: Unknown / Unable to assess Housing: Unknown / Unable to assess Do you presently have visiting nurse or other home services: Yes (visiting nurse every 6 months for assmts) Alcohol intake: former Comment: 1:1 supervision Patient Tobacco Use Status: Never used Tobacco Second Hand Smoke Exposure: No Advance Directives Date on File: 03/03/24 Sexual orientation: Straight/Heterosexual Meds Allergies Allergy/AdvReac Type Severity Reaction Status Date / Time sulfamethoxazole Allergy Unknown Verified 03/03/24 14:32 [From Sulfamethoxazole-Trimethoprim] trimethoprim Allergy Unknown Verified 03/03/24 14:32 [From Sulfamethoxazole-Trimethoprim] Active Medications: Current Medications Acetaminophen (Acetaminophen 325 Mg Tablet) 975 mg PO Q6H PRN PRN Reason: Pain, Mild 1-3,fever,headache Calcium Carbonate (Calcium Carbonate 750 Mg Tab.Chew) 750 mg PO Q4H PRN PRN Reason: Heartburn Magnesium Hydroxide (Milk Of Magnesia 30 Ml Oral.Susp) 30 ml PO DAILY PRN PRN Reason: Constipation Melatonin (Melatonin 3 Mg Tablet) 6 mg PO BEDTIME PRN PRN Reason: Insomnia Sodium Chloride (0.9 % Sodium Chloride Flush 3 Ml Syringe) 3 ml IVFLUSH QSHIFT [facility] Home Medications ?Medication ?Instructions ?Recorded ?Confirmed ?Last Taken ?Type cholecalciferol (vitamin D3) 50 50 mcg PO DAILY 03/04/24 03/04/24 Unknown History mcg (2,000 unit) tablet (Vitamin D3) fluticasone propionate 50 2 spray intranasal DAILY 03/04/24 03/04/24 Unknown History mcg/actuation nasal spray,suspension timolol maleate 0.5 % eye drops 1 drp ophthalmic (eye) DAILY 03/04/24 03/04/24 Unknown History Physical Exam Vital Signs and Narrative: General: Alert, oriented to person but not place or time, no acute distress Resp: CTA bilaterally CVS: S1, S2, RRR GI: +BS, NT, no distention Skin: Warm, dry Neuro: PERRLA, no pronator drift or extremity weakness, no tongue deviation. ?slurred speech per nursing staff Extremities: No LE edema Psych: confused, pt with dementia Assessment and Plan (1) Altered mental status: Status: Acute (2) Dysarthria: Status: Acute Plan Patient is an 79-year-old female with a past medical history significant for HTN, HLD, GERD, dementia, hypothyroid, initially on [facility], code stroke called due to a brief moment of altered mental status. Patient was not responsive to nursing staff but does wear hearing aids and did not have them in. AMS concern for TIA or CVA due to ?dysarthria - EKG with NSR - BP normal - NIH score 1, ?slurred speech - CT head and CTA head/neck ordered - contact neurology after CT results back - echo - orthostatics - OT/PT/FOREST PRODUCTS TEACHER - NPO - CBC, CMP, trop, UA - monitor on tele - already on statin HTN - BP normal, no home meds GERD - continue PPI dementia/mood - plan per psych hypothyroid - continue levothyroxine DNR/DNI VTE prophy: pneumoboots pending CT results patient with altered mental status with concern for TIA or CVA due to no dysarthria, transferred from [facility] psych floor for further medical evaluation and monitoring. Quality Stroke Does the patient have a stroke diagnosis?: No VTE Prior VTE?: No VTE Risk Level:: Medical - moderate - high VTE Device Contraindication: N/A - Device Ordered VTE Drug Contraindication: Treatment Not Indicated
[2024-06-02 07:29] VITALS: BP 156/111; PULSE 67; RESP 18; TEMP 36.4; O2SAT 94
--- OUTSIDE RECORDS SUMMARY | 2024-06-02 07:39 | XMS_ITS | Encounter Summary ---
Author Organization [facility] Address [address] [place] [address] Care Team Providers Care Plasterer Maintenance Name Role Phone Jackelyn Jansen DO Primary Care Provider [phone] Encounter Details Date Type Department Care Team (Late st Contact Info) Description 04/01/2024 Lab Requisition [facility] - Main Lab [address] [facility] [place] [phone] Hunter Carvalho MD [address] [place] [address] Essential (primary) hypertension Social History Tobacco Use Types Packs/Day Years Used Date Smoking Tobacco: Never Smokeless Tobacco: Never Alcohol Use Standard Drinks/Week Comments Yes 0 (1 standard drink = 0.6 oz pur e alcohol) Interpersonal Safety Answer Date Record ed Physical Abuse 01/20/2024 Verbal Abuse 01/20/2024 Comments Unknown Sex and Gender Information Value Date Recorded Sex Assigned at Female 02/02/2024 8:56 PM EST Legal Sex Female 11:51 AM EST Gender Identity Female 02/02/2024 8:56 PM EST Sexual Orientation Straight 02/02/2024 8: 56 PM EST documented as of this encounter Functional Status * Are you deaf or do you have serious difficulty hearing? Answer Date of Assessment Author Yes 02/11/2024 6:53 PM EST Thomas, De bra, RN * Are you blind or do you have serious difficulty seeing, even when wearing glasses? Answer Date of Assessment Author Yes 02/11/2024 6:53 PM Madsen RN * Do you have serious difficulty walking or climbing stairs? Answer Date of Assessment Author Yes 02/11/2024 6:53 PM Madsen RN * Do you have serious difficulty dressing or bathing? Answer Date of Assessment Author No 02/11/2024 6:53 PM Madsen RN * Because of a physical, mental, or emotional condition, do you have serious difficulty doing errandsalone such as visiting the doctor? Answer Date of Assessment Author Yes 02/11/2024 6:53 PM Madsen RN documented as of this encounter Mental Status * Because of a physical, mental, or emotional condition, do you have serious difficulty concentrating, remembering, or making decisions? (5 years old or older) Answer Entry Date Author Yes 02/11/2024 6:53 PM Madsen RN documented in this encounter Plan of Treatment Not on file documented as of this encounter Visit Diagnoses Diagnosis Essential (primary) hypertension Unspecified essential hypertension documented in this encounter Care Teams Plasterer Maintenance Relationship Specialty Start Date End Date Jackelyn Jansen DO [address] [place] [id number] PCP - General 12/13/23 documented as of this encounter
--- OUTSIDE RECORDS SUMMARY | 2024-06-02 07:39 | XMS_ITS | Encounter Summary ---
Author Organization [facility] Address [address] [place] [address] Care Team Providers Care Audio Technician Name Role Phone Jackelyn Jansen DO Primary Care Provider [phone] Encounter Details Date Type Department Care Team (Late st Contact Info) Description 03/11/2024 Lab Requisition [facility] - Main Lab [address] [facility] [place] [phone] Hunter Carvalho MD [address] [place] [address] Essential (primary) hypertension Social History Tobacco Use [...] hypertension documented in this encounter Care Teams Audio Technician Relationship Specialty Start Date End Date Jackelyn Jansen DO [address] [place] [id number] PCP - General 12/13/23 documented as of this encounter
--- OUTSIDE RECORDS SUMMARY | 2024-06-02 07:39 | XMS_ITS | Encounter Summary ---
Author Organization [facility] Address [address] [place] [address] Care Team Providers Care Assisted Living Coordinator Name Role Phone Jackelyn Jansen DO Primary Care Provider [phone] Encounter Details Date Type Department Care Team (Late st Contact Info) Description 03/25/2024 Lab Requisition [facility] - Main Lab [address] [facility] [place] [phone] Hunter Carvalho MD [address] [place] [address] Essential (primary) hypertension Social History Tobacco Use [...] hypertension documented in this encounter Care Teams Assisted Living Coordinator Relationship Specialty Start Date End Date Jackelyn Jansen DO [address] [place] [address] PCP - General 12/13/23 documented as of this encounter
--- OUTSIDE RECORDS SUMMARY | 2024-06-02 07:39 | XMS_ITS | Encounter Summary ---
Author Organization [facility] Address [address] [place] [address] Care Team Providers Care Science Manager Name Role Phone Jackelyn Jansen DO Primary Care Provider [phone] Encounter Details Date Type Department Care Team (Late st Contact Info) Description 02/25/2024 Lab Requisition [facility] - Main Lab [address] [facility] [place] [phone] Hunter Carvalho MD [address] [place] [address] Essential (primary) hypertension Social History Tobacco Use [...] on file documented as of this encounter Procedures Procedure Name Priority Date/Time Associated Diagnosis Comments COMPLETE BLOOD COUNT Routine 02/27/2024 5:23 AM EST Essential (primary) hypertension COMPREHENSIVE METABOLIC PANEL Routine 02/27/2024 5:23 AM EST Essential (primary) hypertension documented in this encounter Results * (ABNORMAL) Comprehensive metabolic panel (02/27/2024 5:23 AM EST) [facility] Sodium 144 133 - 145 mmol/L LAB CHEMISTRY METHOD 02/27/2024 10:12 AM [facility] Potassium 4.6 3.5 - 5.5 mmol/L LAB CHEMISTRY METHOD 02/27/2024 10:12 AM [facility] Chloride 110 96 - 110 mmol/L LAB CHEMISTRY METHOD 02/27/2024 10:12 AM [facility] CO2 31 21 - 32 mmol/L LAB CHEMISTRY METHOD 02/27/2024 10:12 AM [facility] Anion Gap 3 3 - 11 LAB CHEMISTRY METHOD 02/27/2024 10:12 AM [facility] Glucose 75 70 - 100 mg/dL LAB CHEMISTRY METHOD 02/27/2024 10:12 AM [facility] BUN 13 5 - 25 mg/dL LAB CHEMISTRY METHOD 02/27/2024 10:12 AM [facility] Creatinine 0.89 0.50 - 1.10 mg/dL LAB CHEMISTRY METHOD 02/27/2024 10:12 AM [facility] eGFR 66 >=60 mL/min/1. 73m2 LAB CHEMISTRY METHOD 02/27/2024 10:12 AM [facility] Comment:Calculation based on the??Chronic Kidney Disease Epidemiology Collaboration (CKD-EPI) equation refit??without adjustment for race. BUN/Creatinine Ratio 14.6 LAB CHEMISTRY METHOD 02/27/2024 10:12 AM [facility] Calcium 8.4(L) 8.5 - 10.5 mg/dL LAB CHEMISTRY METHOD 02/27/2024 10:12 AM [facility] AST (SGOT) 28 10 - 42 unit/L LAB CHEMISTRY METHOD 02/27/2024 10:12 AM [facility] ALT (SGPT) 29 10 - 60 unit/L LAB CHEMISTRY METHOD 02/27/2024 10:12 AM [facility] Alkaline Phosphatase 122(H) 42 - 121 unit/L LAB CHEMISTRY METHOD 02/27/2024 10:12 AM [facility] Total Protein 4.6(L) 6.0 - 8.0 g/dL LAB CHEMISTRY METHOD 02/27/2024 10:12 AM [facility] Albumin 2.5(L) 3.2 - 5.0 g/dL LAB CHEMISTRY METHOD 02/27/2024 10:12 AM [facility] Total Bilirubin 0.5 0.0 - 1.4 mg/dL LAB CHEMISTRY METHOD 02/27/2024 10:12 AM [facility] Blood Venous blood specimen / Unknown Venipuncture / Unknown 02/27/2024 5:23 AM EST 02/27/2024 9:31 AM EST Hunter Carvalho MD LAB BLOOD ORDERABLES Final Resul t [facility] [address] [place] [address], * (ABNORMAL) Complete blood count (02/27/2024 5:23 AM EST) WBC 4.6(L) 4.8 - 10.8 K/mcL LAB HEMETOLOGY METHOD 02/27/2024 9:58 AM [facility] RBC 3.30(L) 3.80 - 4.80 M/mcL LAB HEMETOLOGY METHOD 02/27/2024 9:58 AM [facility] Hemoglobin 10.0(L) 11.5 - 16.0 g/dL LAB HEMETOLOGY METHOD 02/27/2024 9:58 AM [facility] Hematocrit 31.7(L) 35.0 - 47.0 % LAB HEMETOLOGY METHOD 02/27/2024 9:58 AM [facility] MCV 97.5 79.0 - 98.0 FL LAB HEMETOLOGY METHOD 02/27/2024 9:58 AM [facility] MCH 30.8 27.0 - 32.0 pcg LAB HEMETOLOGY METHOD 02/27/2024 9:58 AM [facility] MCHC 31.5(L) 32.0 - 37.0 g/dL LAB HEMETOLOGY METHOD 02/27/2024 9:58 AM [facility] RDW 17.1(H) 11.0 - 15.0 % LAB HEMETOLOGY METHOD 02/27/2024 9:58 AM [facility] Platelets 148 130 - 400 K/mcL LAB HEMETOLOGY METHOD 02/27/2024 9:58 AM EST [facility] MPV 12.4(H) 7.0 - 11.0 FL LAB HEMETOLOGY METHOD 02/27/2024 9:58 AM EST [facility] NRBC 0.0 <1.0 % LAB HEMETOLOGY METHOD 02/27/2024 9:58 AM EST [facility] NRBC Absolute 0.00 <0.10 K/mcL LAB HEMETOLOGY METHOD 02/27/2024 9:58 AM EST [facility] Blood Venous blood specimen / Unknown Venipuncture / Unknown 02/27/2024 5:23 AM EST 02/27/2024 9:31 AM EST us Hunter Carvalho MD LAB BLOOD ORDERABLES Final Resul t [facility] [address] [place] [address], documented in this encounter Visit Diagnoses Diagnosis Essential (primary) hypertension Unspecified essential hypertension documented in this encounter Care Teams Science Manager Relationship Specialty Start Date End Date Jackelyn Jansen DO [address] [place] [address] PCP - General 12/13/23 documented as of this encounter
--- OUTSIDE RECORDS SUMMARY | 2024-06-02 07:39 | XMS_ITS | Encounter Summary ---
Author Organization [facility] Address [address] [place] [address] Care Team Providers Care Button Clamper Name Role Phone Jackelyn Jansen DO Primary Care Provider [phone] Encounter Details Date Type Department Care Team (Late st Contact Info) Description 03/04/2024 Lab Requisition [facility] - Main Lab [address] [facility] [place] [phone] Hunter Carvalho MD [address] [place] [address] Essential (primary) hypertension Social History Tobacco Use [...] hypertension documented in this encounter Care Teams Button Clamper Relationship Specialty Start Date End Date Jackelyn Jansen DO [address] [place] [address] PCP - General 12/13/23 documented as of this encounter
--- OUTSIDE RECORDS SUMMARY | 2024-06-02 07:39 | XMS_ITS | Encounter Summary ---
Author Organization [facility] Address [address] [place] [address] Care Team Providers Care Chinese Medicine Practitioner Name Role Phone Jackelyn Jansen DO Primary Care Provider [phone] Encounter Details Date Type Department Care Team (Late st Contact Info) Description 03/18/2024 Lab Requisition [facility] - Main Lab [address] [facility] [place] [phone] Hunter Carvalho MD [address] [place] [address] Essential (primary) hypertension Social History Tobacco Use [...] hypertension documented in this encounter Care Teams Chinese Medicine Practitioner Relationship Specialty Start Date End Date Jackelyn Jansen DO [address] [place] [address] PCP - General 12/13/23 documented as of this encounter
--- OUTSIDE RECORDS SUMMARY | 2024-06-02 07:39 | XMS_ITS | Encounter Summary ---
Author Organization [facility] Address [address] [place] [address] Care Team Providers Care Hydraulic Design Engineer Name Role Phone Jackelyn Jansen Primary Care Provider [phone] Encounter Details Date Type Department Care Team (Late st Contact Info) Description 03/02/2024 Lab Requisition [facility] - Main Lab [address] [facility] [id number] Hunter Carvalho MD [id number] Traumatic subdural hemorrhage with loss of consciousness status unknown, subsequent encounter; Encounter for therapeutic drug level monitoring; Hyperlipidemia, unspecified Social History Tobacco Use Types Packs/Day Years [...] Yes 02/11/2024 6:53 PM Madsen RN * Are you blind or do [...] Associated Diagnosis Comments COMPLETE BLOOD COUNT Routine 03/02/2024 5:13 AM EST Traumatic subdural hemorrhage with loss of consciousness status unknown, subsequent encounter Encounter for therapeutic drug level monitoring Hyperlipidemia, unspecified VALPROIC ACID LEVEL, TOTAL Routine 03/02/2024 5:13 AM EST Traumatic subdural hemorrhage with loss of consciousness status unknown, subsequent encounter Encounter for therapeutic drug level monitoring Hyperlipidemia, unspecified COMPREHENSIVE METABOLIC PANEL Routine 03/02/2024 5:13 AM EST Traumatic subdural hemorrhage with loss of consciousness status unknown, subsequent encounter Encounter for therapeutic drug level monitoring Hyperlipidemia, unspecified documented in this encounter Results * Valproic acid level, total (03/02/2024 5:13 AM EST) [facility] Valproic Acid, Total 50 50 - 100 mcg/mL LAB CHEMISTRY METHOD 03/02/2024 12:55 PM EST [facility] Blood Venous blood specimen / Unknown Venipuncture / Unknown 03/02/2024 5:13 AM EST 03/02/2024 10:55 AM EST Hunter Carvalho MD LAB BLOOD ORDERABLES Final Resul t [facility] [address] [place] [address], [place] [phone] * (ABNORMAL) Comprehensive metabolic panel (03/02/2024 5:13 AM EST) Sodium 139 133 - 145 mmol/L LAB CHEMISTRY METHOD 03/02/2024 12:59 PM [facility] Potassium 4.1 3.5 - 5.5 mmol/L LAB CHEMISTRY METHOD 03/02/2024 12:59 PM [facility] Chloride 105 96 - 110 mmol/L LAB CHEMISTRY METHOD 03/02/2024 12:59 PM [facility] CO2 26 21 - 32 mmol/L LAB CHEMISTRY METHOD 03/02/2024 12:59 PM [facility] Anion Gap 8 3 - 11 LAB CHEMISTRY METHOD 03/02/2024 12:59 PM [facility] Glucose 65(L) 70 - 100 mg/dL LAB CHEMISTRY METHOD 03/02/2024 12:59 PM [facility] BUN 20 5 - 25 mg/dL LAB CHEMISTRY METHOD 03/02/2024 12:59 PM [facility] Creatinine 0.94 0.50 - 1.10 mg/dL LAB CHEMISTRY METHOD 03/02/2024 12:59 PM [facility] eGFR 62 >=60 mL/min/1. 73m2 LAB CHEMISTRY METHOD 03/02/2024 12:59 PM [facility] Comment:Calculation based on the??Chronic Kidney Disease Epidemiology Collaboration (CKD-EPI) equation refit??without adjustment for race. BUN/Creatinine Ratio 21.3 LAB CHEMISTRY METHOD 03/02/2024 12:59 PM [facility] Calcium 8.4(L) 8.5 - 10.5 mg/dL LAB CHEMISTRY METHOD 03/02/2024 12:59 PM [facility] AST (SGOT) 16 10 - 42 unit/L LAB CHEMISTRY METHOD 03/02/2024 12:59 PM [facility] ALT (SGPT) 20 10 - 60 unit/L LAB CHEMISTRY METHOD 03/02/2024 12:59 PM [facility] Alkaline Phosphatase 110 42 - 121 unit/L LAB CHEMISTRY METHOD 03/02/2024 12:59 PM [facility] Total Protein 5.2(L) 6.0 - 8.0 g/dL LAB CHEMISTRY METHOD 03/02/2024 12:59 PM [facility] Albumin 2.7(L) 3.2 - 5.0 g/dL LAB CHEMISTRY METHOD 03/02/2024 12:59 PM [facility] Total Bilirubin 0.6 0.0 - 1.4 mg/dL LAB CHEMISTRY METHOD 03/02/2024 12:59 PM [facility] Blood Venous blood specimen / Unknown Venipuncture / Unknown 03/02/2024 5:13 AM EST 03/02/2024 10:55 AM EST us Hunter Carvalho MD LAB BLOOD ORDERABLES Final Resul t [facility] [address] [place] [address], * (ABNORMAL) Complete blood count (03/02/2024 5:13 AM EST) WBC 6.3 4.8 - 10.8 K/mcL LAB HEMETOLOGY METHOD 03/02/2024 1:09 PM [facility] RBC 3.50(L) 3.80 - 4.80 M/mcL LAB HEMETOLOGY METHOD 03/02/2024 1:09 PM [facility] Hemoglobin 10.5(L) 11.5 - 16.0 g/dL LAB HEMETOLOGY METHOD 03/02/2024 1:09 PM [facility] Hematocrit 33.4(L) 35.0 - 47.0 % LAB HEMETOLOGY METHOD 03/02/2024 1:09 PM [facility] MCV 95.7 79.0 - 98.0 FL LAB HEMETOLOGY METHOD 03/02/2024 1:09 PM [facility] MCH 30.1 27.0 - 32.0 pcg LAB HEMETOLOGY METHOD 03/02/2024 1:09 PM [facility] MCHC 31.4(L) 32.0 - 37.0 g/dL LAB HEMETOLOGY METHOD 03/02/2024 1:09 PM [facility] RDW 16.4(H) 11.0 - 15.0 % LAB HEMETOLOGY METHOD 03/02/2024 1:09 PM [facility] Platelets 132 130 - 400 K/mcL LAB HEMETOLOGY METHOD 03/02/2024 1:09 PM [facility] MPV 12.6(H) 7.0 - 11.0 FL LAB HEMETOLOGY METHOD 03/02/2024 1:09 PM [facility] NRBC 0.0 <1.0 % LAB HEMETOLOGY METHOD 03/02/2024 1:09 PM [facility] NRBC Absolute 0.00 <0.10 K/mcL LAB HEMETOLOGY METHOD 03/02/2024 1:09 PM [facility] Blood Venous blood specimen / Unknown Venipuncture / Unknown 03/02/2024 5:13 AM EST 03/02/2024 10:55 AM EST Hunter Carvalho MD LAB BLOOD ORDERABLES Final Resul t [facility] [address] [place] [address], documented in this encounter Visit Diagnoses Diagnosis Traumatic subdural hemorrhage with loss of consciousness status unknown, subsequent encounter Encounter for therapeutic drug level monitoring Hyperlipidemia, unspecified documented in this encounter Care Teams Hydraulic Design Engineer Relationship Specialty Start Date End Date Jackelyn Jansen DO [facility] [place] [address] PCP - General 12/13/23 documented as of this encounter
--- OUTSIDE RECORDS SUMMARY | 2024-06-02 07:39 | XMS_ITS | Clinical Summary ---
Author Organization [facility] Address [address] [place] [address] Phone Care Team Providers Care Rubber Process Hand Name Role Phone Jackelyn Jansen DO Primary Care Provider [phone] Allergies Active Allergy Reactions Criticality Noted Date Comments Sulfa (Sulfonamide Antibiotics) 12/26 Medications timoloL (BETIMOL) 0.5 % ophthalmic solution Administer 1 drop into both eyes 2 (two) times a day. Active levothyroxine (SYNTHROID, LEVOTHROID) 75 mcg tablet Take 1 tablet (75 mcg total) by mouth 1 (one) time each day before breakfast. Active divalproex (DEPAKOTE) [address] tablet Take 1 tablet (250 mg total) by mouth 2 (two) times a day. Do not crush, chew, or split. Active donepeziL (ARICEPT) 5 mg tablet Take 1 tablet (5 mg total) by mouth at bedtime. Active albuterol HFA (Proventil HFA) 90 mcg/actuation inhaler Inhale 2 puffs by mouth every 4 (four) hours if needed for wheezing or shortness of breath. 01/16/20 24 025 Active aspirin 81 mg EC tablet TAKE 1 TABLET BY MOUTH EVERY DAY 90 tablet 1 01/30/20 24 Active divalproex (DEPAKOTE ER) 250 mg 24 hr tablet TAKE 1 TABLET BY MOUTH TWICE A DAY 180 tablet 1 01/30/20 24 Active oxyBUTYnin XL (DITROPAN-XL) 15 mg 24 hr tablet TAKE 1 TABLET BY MOUTH EVERY DAY 90 tablet 1 04/01/19 25 Active atorvastatin (LIPITOR) 20 mg tablet TAKE 1 TABLET BY MOUTH EVERY DAY 90 tablet 05/12/19 25 Active fluticasone propionate (FLONASE) 50 mcg/actuation nasal sprayIndicatio ns:Allergic rhinitis due to pollen SPRAY 2 SPRAYS BY NASAL ROUTE DAILY. 48 mL 05/12/19 25 Active famotidine (PEPCID) 20 mg tablet Take 1 tablet (20 mg total) by mouth at bedtime as needed for heartburn. 90 tablet 05/12/19 25 Active loratadine (CLARITIN) 10 mg tabletIndicati ons:Postnasal drip TAKE 1 TABLET BY MOUTH EVERY DAY 90 tablet 05/21/19 25 Active atorvastatin (LIPITOR) 20 mg tablet Take 1 tablet (20 mg total) by mouth 1 (one) time each day. 025 Discontinued famotidine (PEPCID) 20 mg tablet Take 1 tablet (20 mg total) by mouth at bedtime as needed for heartburn. 025 Discontinued(Re order) fluticasone propionate (FLONASE) 50 mcg/actuation nasal spray Administer 2 sprays into each nostril 1 (one) time each day. Shake gently. Before first use, prime pump. After use, clean tip and replace cap. 025 Discontinued loratadine (CLARITIN) 10 mg tabletIndicati ons:Postnasal drip TAKE 1 TABLET BY MOUTH EVERY DAY 90 tablet 02/24/20 24 025 Discontinued Active Problems Problem Noted Date Diagnosed Date Shortness of breath 01/16/2024 COVID-19 01/16/2024 Acute hypoxic respiratory failure 01/14/2024 Encounters Date Type Department Care Team Description 04/01/2024 Lab Requisition [facility] Main Lab [address] [place] [address] Hunter Carvalho MD Essential (primary) hypertension 03/25/2024 Lab Requisition [facility] Main Lab [address] [place] [address] Hunter Carvalho MD Essential (primary) hypertension 03/18/2024 Lab Requisition [facility] - Main Lab [address] [place] [phone] Hunter Carvalho MD Essential (primary) hypertension 03/11/2024 Lab Requisition [facility] Main Lab [address] [place] [phone] Hunter Carvalho MD Essential (primary) hypertension 03/04/2024 Lab Requisition [facility] Lab [address] [place] [phone] Hunter Carvalho MD Essential (primary) hypertension from Last 3 Months Surgical History Surgery Date Site/Laterality Comments SECTION PROCEDURE: HISTORICAL DELIVERY; COMMENT: x2 COLONOSCOPY 03/17/15 PROCEDURE: HISTORICAL COLONOSCOPY; COMMENT: Dr. Sommer - segmental ischemic colitis Medical History Medical History Date Comments Atrial fibrillation ([facility] 10/08/2013 DX :Atrial fibrillation ([facility]); COMMENT: Lone AF in setting of GI illness; not recurrent on Holter or 30-day recorder Depression 03/22/2009 DX:Depression Hyperlipidemia 03/04/2009 DX:Hyperlipidemi a Ischemic colitis ([facility]) 03/22/2015 DX:Is chemic colitis ([facility]); COMMENT: 03/12; colo Dr Sommer. CTA of mesenteric arteries normal 05/23/2015. Seizures ([facility]) 03/04/2009 DX:Seizures ( [facility]); COMMENT: Dr. Simeon initially, now Dr Oscar Stroke ([facility]) Disease of thyroid gland GERD (gastroesophageal reflux disease) Hard of hearing Thrombocytopenia ([facility]) Clotting disorder ([facility]) Family History Medical History Relation Name Comments Other cancer Brother Breast cancer Mother Coronary artery disease Neg Hx Diabetes Neg Hx Hypertension Neg Hx Relation Name Status Comments Brother Mother Social History Tobacco Use Types Packs/Day Years [...] Orientation Straight 02/02/2024 8: 56 PM EST Obstetrics History Last Filed Vital Signs Vital Sign Reading Time Taken Comments Blood Pressure 134/97 02/12/2024 9:28 AM EST Pulse 62 02/12/2024 9:28 AM EST Temperature 36.5 ??C (97.7 ??F) 02/12/2024 9:28 AM ES T Respiratory Rate 18 02/12/2024 9:28 AM EST Oxygen Saturation 100% 02/12/2024 9:28 AM EST Inhaled Oxygen Concentration - - Weight 54.4 kg (120 lb) 02/12/2024 6:44 AM EST Height 160 cm (5' 2.99 ) 02/12/2024 6:44 AM EST Body Mass Index 21.26 02/12/2024 6:44 AM EST Plan of Treatment Health Maintenance Due Date Last Done Comments Zoster Vaccines (1 of 2) 1994 Pneumococcal Vaccine: 50+ Years (2 of 2 - PCV) 07/04/2012 07/05/2011 RSV Immunization Adult Patients (1 - 1-dose 75+ series) 05/30/2019 Depression Screening 01/23/2022 Hepatitis C Screening 01/23/2022 Medicare Annual Wellness Visit 01/23/2022 Osteoporosis Screening (Bone Density Screening) 01/23/2022 Social Influencers of Health Screening 01/23/2022 COVID-19 Vaccine (2 - season) 2023 07/31/2021 Influenza Vaccine (#1) 2023 , 12/20/2017, 01/27/2015, Additional history exists Falls Risk Assessment 02/11/2025 02/12/2024 Hypertension/CHF/CAD Annual BMP Blood Test 03/02/2025 03/02/2024, 02/27/2024, 02/20/2024, Additional history exists Cholesterol Screening (Lipid Panel) 11/18/2028 11/19/2023 DTaP,Tdap,and Td Vaccines (3 - Td or Tdap) 09/23/2030 09/23/2020, 07/05/2011 HIB Vaccines Aged Out No longer eligi ble based on patient's age to complete this topic HPV Vaccines Aged Out No longer eligi ble based on patient's age to complete this topic Hepatitis A Vaccines Aged Out No long er eligible based on patient's age to complete this topic Hepatitis B Vaccines Aged Out No long er eligible based on patient's age to complete this topic IPV Vaccines Aged Out No longer eligi ble based on patient's age to complete this topic MMR Vaccines Aged Out No longer eligi ble based on patient's age to complete this topic Meningococcal ACWY Vaccine Aged Out N o longer eligible based on patient's age to complete this topic Meningococcal B Vaccine Aged Out No l onger eligible based on patient's age to complete this topic RSV Immunization Patients Under 20 months Aged Out No longer eligible based on patient's age to complete this topic Varicella Vaccines Aged Out No longer eligible based on patient's age to complete this topic Procedures Procedure Name Priority Date/Time Associated Diagnosis Comments COMPREHENSIVE METABOLIC PANEL Routine 03/02/2024 5:13 AM EST Traumatic subdural hemorrhage with loss of consciousness status unknown, subsequent encounter Encounter for therapeutic drug level monitoring Hyperlipidemia, unspecified from Last 3 Months or Most Recently Relevant to Health Maintenance Results * (ABNORMAL) Comprehensive metabolic panel (03/02/2024 5:13 AM EST) Sodium 139 133 - 145 mmol/L LAB CHEMISTRY METHOD 03/02/2024 12:[address] [facility] Potassium 4.1 3.5 - 5.5 mmol/L LAB CHEMISTRY METHOD 03/02/2024 12:[address] [facility] Chloride 105 96 - 110 mmol/L LAB CHEMISTRY METHOD 03/02/2024 12:[address] [facility] CO2 26 21 - 32 mmol/L LAB CHEMISTRY METHOD 03/02/2024 12:[address] [facility] Anion Gap 8 3 - 11 LAB CHEMISTRY METHOD 03/02/2024 12:[address] [facility] Glucose 65(L) 70 - 100 mg/dL LAB CHEMISTRY METHOD 03/02/2024 12:[address] [facility] BUN 20 5 - 25 mg/dL LAB CHEMISTRY METHOD 03/02/2024 12:[address] [facility] Creatinine 0.94 0.50 - 1.10 mg/dL LAB CHEMISTRY METHOD 03/02/2024 12:[address] [facility] eGFR 62 >=60 mL/min/1. 73m2 LAB CHEMISTRY METHOD 03/02/2024 12:[address] [facility] Comment:Calculation based on the??Chronic Kidney Disease Epidemiology Collaboration (CKD-EPI) equation refit??without adjustment for race. BUN/Creatinine Ratio 21.3 LAB CHEMISTRY METHOD 03/02/2024 12:[address] [facility] Calcium 8.4(L) 8.5 - 10.5 mg/dL LAB CHEMISTRY METHOD 03/02/2024 12:[address] [facility] AST (SGOT) 16 10 - 42 unit/L LAB CHEMISTRY METHOD 03/02/2024 12:[address] [facility] ALT (SGPT) 20 10 - 60 unit/L LAB CHEMISTRY METHOD 03/02/2024 12:[address] [facility] Alkaline Phosphatase 110 42 - 121 unit/L LAB CHEMISTRY METHOD 03/02/2024 12:[address] [facility] Total Protein 5.2(L) 6.0 - 8.0 g/dL LAB CHEMISTRY METHOD 03/02/2024 12:[address] [facility] Albumin 2.7(L) 3.2 - 5.0 g/dL LAB CHEMISTRY METHOD 03/02/2024 12:[address] [facility] Total Bilirubin 0.6 0.0 - 1.4 mg/dL LAB CHEMISTRY METHOD 03/02/2024 12:[address] [facility] Blood Venous blood specimen / Unknown Venipuncture / Unknown 03/02/2024 5:13 AM EST 03/02/2024 10:55 AM EST us Hunter Carvalho MD LAB BLOOD ORDERABLES Final Resul t [facility] [address] [place] [address], from Last 3 Months or Most Recently Relevant to Health Maintenance Insurance MEDICAID [place] [address] Advance Directives Documents on File Type Date Recorded Patient Manager Deli Expl anation Health Care Decision (hx) 03/23/2015 AD KAN DIRECTIVE Health Care Decision (hx) 03/23/2015 AD KAN DIRECTIVE Health Care Decision (hx) 03/23/2015 AD KAN DIRECTIVE Health Care Decision (hx) 03/23/2015 AD KAN DIRECTIVE Health Care Decision (hx) 03/23/2015 AD KAN DIRECTIVE Health Care Decision (hx) 03/23/2015 AD KAN DIRECTIVE Health Care Decision (hx) 03/23/2015 AD KAN DIRECTIVE Health Care Decision (hx) 03/23/2015 AD KAN DIRECTIVE Health Care Decision (hx) 03/23/2015 AD KAN DIRECTIVE Health Care Decision (hx) 03/23/2015 AD KAN DIRECTIVE Health Care Decision (hx) 03/23/2015 AD KAN DIRECTIVE Health Care Decision (hx) 03/23/2015 AD KAN DIRECTIVE Health Care Decision (hx) 03/23/2015 AD KAN DIRECTIVE Health Care Decision (hx) 03/23/2015 AD KAN DIRECTIVE Health Care Decision (hx) 03/23/2015 AD KAN DIRECTIVE Health Care Decision (hx) 03/23/2015 AD KAN DIRECTIVE Health Care Decision (hx) 03/23/2015 AD KAN DIRECTIVE Health Care Decision (hx) 03/23/2015 AD KAN DIRECTIVE Health Care Decision (hx) 03/23/2015 AD KAN DIRECTIVE Health Care Decision (hx) 03/23/2015 AD KAN DIRECTIVE Health Care Decision (hx) 03/23/2015 AD KAN DIRECTIVE Health Care Decision (hx) 03/23/2015 AD KAN DIRECTIVE Health Care Decision (hx) 03/23/2015 AD KAN DIRECTIVE Health Care Decision (hx) 03/23/2015 AD KAN DIRECTIVE Health Care Decision (hx) 03/23/2015 AD KAN DIRECTIVE Health Care Decision (hx) 03/17/2015 AD KAN DIRECTIVE Health Care Decision (hx) 03/17/2015 AD KAN DIRECTIVE Health Care Decision (hx) 03/17/2015 AD KAN DIRECTIVE Health Care Decision (hx) 03/17/2015 AD KAN DIRECTIVE Health Care Decision (hx) 03/17/2015 AD KAN DIRECTIVE Health Care Decision (hx) 03/17/2015 AD KAN DIRECTIVE Health Care Decision (hx) 03/17/2015 AD KAN DIRECTIVE Health Care Decision (hx) 03/17/2015 AD KAN DIRECTIVE Health Care Decision (hx) 03/17/2015 AD KAN DIRECTIVE Health Care Decision (hx) 03/17/2015 AD KAN DIRECTIVE Health Care Decision (hx) 03/17/2015 AD KAN DIRECTIVE Health Care Decision (hx) 03/17/2015 AD KAN DIRECTIVE Health Care Decision (hx) 03/17/2015 AD KAN DIRECTIVE Health Care Decision (hx) 03/17/2015 AD KAN DIRECTIVE Health Care Decision (hx) 03/17/2015 AD KAN DIRECTIVE Health Care Decision (hx) 03/17/2015 AD KAN DIRECTIVE Health Care Decision (hx) 03/17/2015 AD KAN DIRECTIVE Health Care Decision (hx) 03/17/2015 AD KAN DIRECTIVE Health Care Decision (hx) 03/17/2015 AD KAN DIRECTIVE Health Care Decision (hx) 03/17/2015 AD KAN DIRECTIVE Health Care Decision (hx) 03/17/2015 AD KAN DIRECTIVE Health Care Decision (hx) 03/17/2015 AD KAN DIRECTIVE Health Care Decision (hx) 03/17/2015 AD KAN DIRECTIVE Health Care Decision (hx) 03/17/2015 AD KAN DIRECTIVE Health Care Decision (hx) 03/17/2015 AD KAN DIRECTIVE * Full Code - Confirmed (Latest Code Status on File) Date Activated Date Inactivated Comments 01/10/2024 3:20 PM 01/20/2024 6:00 PM This code status was ascertained in the following way: Code status discussion: discussion with patient To update the patient's code status, place a code status order. Do not modify or discontinue any currently active code status orders. Healthcare Agents on File Name Relationship Healthcare Agent [facility] Jana Mascorro Daughter Health Care Agent Care Teams Rubber Process Hand Relationship Specialty Start Date End Date Jackelyn Jansen DO [facility] [place] [address] PCP - General 12/13/23
--- OUTSIDE RECORDS SUMMARY | 2024-06-02 07:39 | XMS_ITS | Encounter Summary ---
Author Organization [facility] Address [address] [place] [address] Care Team Providers Care Manual Machinist Name Role Phone Jackelyn Janesn Primary Care Provider [phone] Encounter Details Date Type Department Care Team (Late st Contact Info) Description 02/20/2024 Lab Requisition [facility] - Main Lab [address] [facility] [place] [phone] Hunter Carvalho MD [address] [place] [address] Hypothyroidism, unspecified; Deficiency of other vitamins; Unspecified displaced fracture of fifth cervical vertebra, subsequent encounter for fracture with routine healing Social History Tobacco Use Types Packs/Day Years [...] Procedure Name Priority Date/Time Associated Diagnosis Comments VITAMIN D 25 HYDROXY Routine 02/20/2024 5:15 AM EST Hypothyroidism, unspecified Deficiency of other vitamins Unspecified displaced fracture of fifth cervical vertebra, subsequent encounter for fracture with routine healing COMPLETE BLOOD COUNT Routine 02/20/2024 5:15 AM EST Hypothyroidism, unspecified THYROID STIMULATING HORMONE Routine 02/20/2024 5:15 AM EST Hypothyroidism, unspecified Deficiency of other vitamins Unspecified displaced fracture of fifth cervical vertebra, subsequent encounter for fracture with routine healing COMPREHENSIVE METABOLIC PANEL Routine 02/20/2024 5:15 AM EST Hypothyroidism, unspecified documented in this encounter Results * Thyroid stimulating hormone (02/20/2024 5:15 AM EST) [facility] TSH 3.78 0.40 - 4.00 mcIU/mL LAB CHEMISTRY METHOD 02/21/2024 10:10 AM EST [facility] Blood Venous blood specimen / Unknown Venipuncture / Unknown 02/20/2024 5:15 AM EST 02/20/2024 9:36 AM EST us Hunter Carvalho MD LAB BLOOD ORDERABLES Final Resul t Performing Organization Address [facility]/ZIP Co de Phone Number [facility] [address] [place] [address], [place] [phone] * (ABNORMAL) Vitamin D 25 hydroxy (02/20/2024 5:15 AM EST) Vit D, 25-Hydroxy 18.2(L) 30.0 - 80.0 ng/mL LAB CHEMISTRY METHOD 02/21/2024 10:10 AM [facility] Blood Venous blood specimen / Unknown Venipuncture / Unknown 02/20/2024 5:15 AM EST 02/20/2024 9:36 AM EST us Hunter Carvalho MD LAB BLOOD ORDERABLES Final Resul t Performing Organization Address [facility] Co de Phone Number [facility] [address] [place] [address], [place] [phone] * (ABNORMAL) Comprehensive metabolic panel (02/20/2024 5:15 AM EST) Sodium 141 133 - 145 mmol/L LAB CHEMISTRY METHOD 02/20/2024 10:55 AM [facility] Potassium 5.3 3.5 - 5.5 mmol/L LAB CHEMISTRY METHOD 02/20/2024 10:55 AM [facility] Chloride 108 96 - 110 mmol/L LAB CHEMISTRY METHOD 02/20/2024 10:55 AM [facility] CO2 32 21 - 32 mmol/L LAB CHEMISTRY METHOD 02/20/2024 10:55 AM [facility] Anion Gap 1(L) 3 - 11 LAB CHEMISTRY METHOD 02/20/2024 10:55 AM [facility] Glucose 68(L) 70 - 100 mg/dL LAB CHEMISTRY METHOD 02/20/2024 10:55 AM [facility] BUN 14 5 - 25 mg/dL LAB CHEMISTRY METHOD 02/20/2024 10:55 AM [facility] Creatinine 0.92 0.50 - 1.10 mg/dL LAB CHEMISTRY METHOD 02/20/2024 10:55 AM [facility] eGFR 63 >=60 mL/min/1. 73m2 LAB CHEMISTRY METHOD 02/20/2024 10:55 AM [facility] Comment:Calculation based on the??Chronic Kidney Disease Epidemiology Collaboration (CKD-EPI) equation refit??without adjustment for race. BUN/Creatinine Ratio 15.2 LAB CHEMISTRY METHOD 02/20/2024 10:55 AM [facility] Calcium 8.5 8.5 - 10.5 mg/dL LAB CHEMISTRY METHOD 02/20/2024 10:55 AM [facility] AST (SGOT) 25 10 - 42 unit/L LAB CHEMISTRY METHOD 02/20/2024 10:55 AM [facility] ALT (SGPT) 23 10 - 60 unit/L LAB CHEMISTRY METHOD 02/20/2024 10:55 AM [facility] Alkaline Phosphatase 120 42 - 121 unit/L LAB CHEMISTRY METHOD 02/20/2024 10:55 AM [facility] Total Protein 4.7(L) 6.0 - 8.0 g/dL LAB CHEMISTRY METHOD 02/20/2024 10:55 AM [facility] Albumin 2.4(L) 3.2 - 5.0 g/dL LAB CHEMISTRY METHOD 02/20/2024 10:55 AM [facility] Total Bilirubin 0.6 0.0 - 1.4 mg/dL LAB CHEMISTRY METHOD 02/20/2024 10:55 AM [facility] Blood Venous blood specimen / Unknown Venipuncture / Unknown 02/20/2024 5:15 AM EST 02/20/2024 9:36 AM EST Hunter Carvalho MD LAB BLOOD ORDERABLES Final Resul t [facility] [address] [place] [address], * (ABNORMAL) Complete blood count (02/20/2024 5:15 AM EST) WBC 5.6 4.8 - 10.8 K/mcL LAB HEMETOLOGY METHOD 02/20/2024 10:14 AM [facility] RBC 3.30(L) 3.80 - 4.80 M/mcL LAB HEMETOLOGY METHOD 02/20/2024 10:14 AM [facility] Hemoglobin 9.8(L) 11.5 - 16.0 g/dL LAB HEMETOLOGY METHOD 02/20/2024 10:14 AM [facility] Hematocrit 31.5(L) 35.0 - 47.0 % LAB HEMETOLOGY METHOD 02/20/2024 10:14 AM [facility] MCV 95.7 79.0 - 98.0 FL LAB HEMETOLOGY METHOD 02/20/2024 10:14 AM [facility] MCH 29.8 27.0 - 32.0 pcg LAB HEMETOLOGY METHOD 02/20/2024 10:14 AM [facility] MCHC 31.1(L) 32.0 - 37.0 g/dL LAB HEMETOLOGY METHOD 02/20/2024 10:14 AM [facility] RDW 16.5(H) 11.0 - 15.0 % LAB HEMETOLOGY METHOD 02/20/2024 10:14 AM [facility] Platelets 196 130 - 400 K/mcL LAB HEMETOLOGY METHOD 02/20/2024 10:14 AM EST [facility] MPV 12.6(H) 7.0 - 11.0 FL LAB HEMETOLOGY METHOD 02/20/2024 10:14 AM EST [facility] NRBC 0.0 <1.0 % LAB HEMETOLOGY METHOD 02/20/2024 10:14 AM EST [facility] NRBC Absolute 0.00 <0.10 K/mcL LAB HEMETOLOGY METHOD 02/20/2024 10:14 AM EST [facility] Blood Venous blood specimen / Unknown Venipuncture / Unknown 02/20/2024 5:15 AM EST 02/20/2024 9:36 AM EST Hunter Carvalho MD LAB BLOOD ORDERABLES Final Resul t [facility] [address] [place] [address], documented in this encounter Visit Diagnoses Diagnosis Hypothyroidism, unspecified Deficiency of other vitamins Unspecified displaced fracture of fifth cervical vertebra, subsequent encounter for fracture with routine healing documented in this encounter Care Teams Manual Machinist Relationship Specialty Start Date End Date Jackelyn Jansen DO [address] [place] [address] PCP - General 12/13/23 documented as of this encounter
[2024-06-02] MEDS: 0.9 % Sodium Chloride Flush 3 ML SYRINGE IVFLUSH ×3 (08:39→20:46)
[2024-06-02 08:54] LABS: Appearance Urine Clear; Color Urine Yellow; Glucose Urine UA Negative (Negative); Leukocyte Esterase Urine Negative (Negative); Nitrite Urine Negative (Negative); Specific Gravity - Urine 1.015 (1.005-1.025); Urine Blood Negative (Negative); Urine Ketones Negative (Negative); Urine Protein Negative (Neg-Trace)
[2024-06-02 08:56] LABS: Partial Thromboplastin Time 26.7 SEC (26.0-36.8)
--- NOTE | 2024-06-02 09:56 | PHA.MEDREC ---
Pharmacy Consult ? Medication Reconciliation Pharmacy has completed the medication reconciliation, pt transferred from [facility], utilized claims and medical record from [facility].
--- NOTE | 2024-06-02 10:11 | MHC.SL.SWA ---
Speech Pathologist Impression: Risk of Aspiration, Oral Phase Dysphagia Risk of Aspiration Due to: Neurological Condition Reduced Cognition Dysphasia Diet Status: No Change Liquid Consistency and Strategies for Safe Swallow: Liquid Intake Recommendation: Thin Liquid Intake Strategies: Small Sips Solid Food Consistency: Dietary Recommendations: Grnd/Mech Altered (NDD2) Additional Modifications to Solid Foods: Patient with mild oral phase dysphagia d/t edentulous status and aspiration risk associated with underlying dementia. Recommend start on GROUND/MECH ALTERED (NDD2) solids and THIN liquids, pills CRUSHED in PUREE. Patient will need direct supervision, assist as needed with tray set up and throughout feeding. Oral Medication Intake: Crushed with Puree Please contact the pharmacy regarding appropriate crushable or liquid drug formulations that are available whenever modified delivery is recommended. Compensatory Strategies and Precautions to be Taken for Safe Swallow: Sitting Upright (90 deg) Double Swallow Small Bites and Sips Alternate Liquids/Solids Rate of Ingestion Change Avoid Specific Foods Supervision While Eating and Drinking for Safe Swallow: Total Supervision (1:1) Foods to Avoid: [place] hard, dry, or crunchy foods Swallowing Recommended Treatments: Compens. Strategy Educat. Recommendation for Speech: Inpatient Speech Therapy Comment: [facility] will continue to follow to monitor tolerance of modified diet and re-assess feeding needs Frequency/Duration: M-F Date Range for Service Req: Timeline to reassess: PRN Remote Operations Producer Clinican/Clinical Fellow: No Supervisory Statement: I have reviewed and agree with the student/clinical fellow's documentation: N/A Speech Language Pathologist: Wanda Foley M.A., CCC-[facility]
--- NOTE | 2024-06-02 10:30 | MHC.CM.PN ---
IMM 06/01/24, CM contacted pt.'s dtr / HCP, Jana. Pt. has Dementia, and is not able to give assessment information. Jana is pursuing conservatorship so that she can complete [employer] application and then the plan is to have pt. go to SNF for LTC, she will likely require Dementia Care Unit. Pt. was on [facility] unit here since February. She is wander and fall risk. CM will follow for DC needs.
[2024-06-02 11:02] VITALS: BP 146/79; PULSE 64; RESP 16; TEMP 36.4; O2SAT 97
--- NOTE | 2024-06-02 11:26 | PC.NURSE ---
Scheduled medications late due to pt receiving echo at this time. This RN will medicate pt when echo is finished .
[2024-06-02] MEDS: Divalproex Sodium Sprinkles 125 MG CAP.DR.SPR 250 MG PO ×3 (11:59→20:46)
[2024-06-02] MEDS: OLANZapine 2.5 MG TABLET PO ×2 (12:00→20:46)
[2024-06-02] MEDS: Loratadine 10 MG TABLET PO (12:00)
[2024-06-02] MEDS: Cholecalciferol (Vitamin D3) 25 MCG TABLET 50 MCG PO (12:00)
[2024-06-02] MEDS: Levothyroxine Sodium 75 MCG TABLET PO (12:00)
[2024-06-02] MEDS: Atorvastatin Calcium 20 MG TABLET PO (12:00)
[2024-06-02] MEDS: oxyBUTYnin chloride ER 5 MG TAB.ER.24 15 MG PO (12:00)
[2024-06-02 14:10] LABS: Hematocrit 38.5 % (37.0-47.0); Mean Corpuscular HGB Conc 33.8 g/dl (31.0-35.0); Mean Corpuscular Hemoglobin 30.1 pg (27.0-33.0); Mean Corpuscular Volume 89.1 fL (80.0-98.0); Mean Platelet Volume 11.3 fL (9.4-12.3); Platelet Count 163 X10*3/uL (160-400); Red Blood Count 4.32 X10*6/uL (4.20-5.50); Red Cell Distribution Width 13.2 % (11.0-16.0); White Blood Count 12.1 X10*3/uL (4.8-10.8)
[2024-06-02 14:23] LABS: Anion Gap 14 (12-20); Blood Urea Nitrogen 16 mg/dL (9-16); Calcium 8.9 mg/dL (8.4-10.2); Carbon Dioxide 25 mmol/L (22-29); Chloride 99 mmol/L (96-108); Estimated Glomerular Filt Rate 53; Glucose Random 122 mg/dL (60-115); Potassium 4.3 mmol/L (3.3-5.1); Sodium 134 mmol/L (135-145)
[2024-06-02 15:04] VITALS: BP 153/71; PULSE 79; RESP 16; TEMP 36.7; O2SAT 96
--- NOTE | 2024-06-02 17:52 | P.CNNE_ITS ---
History of Present Illness Data of Consult Service Date: 06/02/24 Primary Care Provider: Unknown Physician HPI Reason for consult: Altered mental status This is an 79-year-old female with a past medical history of HTN, HLD, GERD, dementia, hypothyroid, initially on [facility], code stroke called due to a brief moment of altered mental status. Patient was not responsive to nursing staff but does wear hearing aids and did not have them in. She was still having trouble understanding after they placed her hearing aids. She asked to go to the bathroom and was able to ambulate without difficulty with her walker. Her speech is questionably slurred per the nursing staff but understandable. EKG was normal, blood pressure normal systolic in the 120s. Blood glucose 86. She was transferred off the psych floor to [facility] for possible stroke versus TIA. NIH score 1. CT and head and neck CTA negative [facility] Past Medical History Medical History Dementia H/O: hypothyroidism Glaucoma Social History Social History Household Members: Unknown / Unable to assess Housing: Unknown / Unable to assess Do you presently have visiting nurse or other home services: Yes (visiting nurse every 6 months for assmts) Alcohol intake: former Comment: 1:1 supervision Patient Tobacco Use Status: Never used Tobacco Second Hand Smoke Exposure: No Use of substances other than those prescribed or required for medical reasons: Unknown Currently Displaying Signs/Symptoms of Drug Intoxication Withdrawal: No Advance Directives: Yes Advance Directives on File: Yes Advance Directives Date on File: 03/03/24 Do you have a plan to hurt others: No Plan Patient : No service: No Sexual orientation: Straight/Heterosexual Meds Allergies Allergy/AdvReac Type Severity Reaction Status Date / Time sulfamethoxazole Allergy Unknown Verified 03/03/24 14:32 [From Sulfamethoxazole-Trimethoprim] trimethoprim Allergy Unknown Verified 03/03/24 14:32 [From Sulfamethoxazole-Trimethoprim] Active Medications: Current Medications Acetaminophen (Acetaminophen 325 Mg Tablet) 975 mg PO TID PRN PRN Reason: pain scale 1-10 Atorvastatin Calcium (Atorvastatin Calcium 20 Mg Tablet) 20 mg PO DAILY [facility] Last Admin: 06/02/24 12:00 Dose: 20 mg Calcium Carbonate (Calcium Carbonate 750 Mg Tab.Chew) 750 mg PO Q4H PRN PRN Reason: Heartburn Divalproex Sodium (Divalproex Sodium Sprinkles 125 Mg Cap) 250 mg PO TID [facility] Last Admin: 06/02/24 14:51 Dose: 250 mg Donepezil HCl (Donepezil Hcl 5 Mg Tablet) 5 mg PO BEDTIME [facility] Fluticasone Propionate (Fluticasone Propionate Nasal 16 Gm [place]) 2 spray NOSTRIL-B DAILY [facility] Last Admin: 06/02/24 12:07 Dose: Not Given Levothyroxine Sodium (Levothyroxine Sodium 75 Mcg Tablet) 75 mcg PO DAILY@0600 [facility] Last Admin: 06/02/24 12:00 Dose: 75 mcg Loratadine (Loratadine 10 Mg Tablet) 10 mg PO DAILY [facility] Last Admin: 06/02/24 12:00 Dose: 10 mg Lorazepam (Lorazepam 0.5 Mg Tablet) 0.5 mg PO TID PRN PRN Reason: Anxiety Magnesium Hydroxide (Milk Of Magnesia 30 Ml Oral.Susp) 30 ml PO DAILY PRN PRN Reason: Constipation Melatonin (Melatonin 3 Mg Tablet) 6 mg PO BEDTIME PRN PRN Reason: Insomnia Olanzapine (Olanzapine 2.5 Mg Tablet) 2.5 mg PO BID [facility] Last Admin: 06/02/24 12:00 Dose: 2.5 mg Olanzapine (Olanzapine 5 Mg Tablet) 5 mg PO Q6H PRN PRN Reason: agitation Omeprazole (Omeprazole 20 Mg Capsule.) 20 mg PO DAILY@0630 [facility] Oxybutynin Chloride (Oxybutynin Chloride Er 5 Mg Tab.Er.24) 15 mg PO DAILY [facility] Last Admin: 06/02/24 12:00 Dose: 15 mg Sodium Chloride (0.9 % Sodium Chloride Flush 3 Ml Syringe) 3 ml IVFLUSH QSHIFT [facility] Last Admin: 06/02/24 16:16 Dose: 3 ml Trazodone HCl (Trazodone Hcl 50 Mg Tablet) 50 mg PO BEDTIME PRN PRN Reason: sleep Trazodone HCl (Trazodone Hcl 50 Mg Tablet) 50 mg PO BEDTIME [facility] Vitamin D (Cholecalciferol (Vitamin D3) 25 Mcg Tablet) 50 mcg PO DAILY [facility] Last Admin: 06/02/24 12:00 Dose: 50 mcg Home Medications ?Medication ?Instructions ?Recorded ?Confirmed ?Last Taken ?Type cholecalciferol (vitamin D3) 50 50 mcg PO DAILY 03/04/24 06/02/24 Unknown History mcg (2,000 unit) tablet (Vitamin D3) fluticasone propionate 50 2 spray intranasal DAILY 03/04/24 06/02/24 Unknown History mcg/actuation nasal spray,suspension timolol maleate 0.5 % eye drops 1 drp ophthalmic (eye) DAILY 03/04/24 03/04/24 Unknown History aspirin 81 mg tablet,delayed 81 mg PO DAILY 06/02/24 Unknown History release divalproex 250 mg tablet,extended 250 mg PO BID 06/02/24 Unknown History release 24 hr Physical Exam 2 Vital Signs: Vital Signs: Last Vital Signs Temp 98.0 F 06/02/24 15:04 Pulse 79 06/02/24 15:04 Resp 16 06/02/24 15:04 BP 153/71 H 06/02/24 15:04 Pulse Ox 96 06/02/24 15:04 O2 Del Method Room Air 06/02/24 15:04 Neuro: Other: She is alert and cooperative. Confused and very hard of hearing. Exam is non focal. No field vcuts Results Labs 06/02/24 14:03 06/02/24 14:03 Labs: Short CBC 06/02/24 Range/Units 14:03 WBC 12.1 H (4.8-10.8) X10*3/uL Hgb 13.0 D (12.0-16.0) g/dl Hct 38.5 D (37.0-47.0) % Plt Count 163 (160-400) X10*3/uL BMP 06/02/24 14:03 Sodium 134 L Potassium 4.3 Chloride 99 Carbon Dioxide 25 BUN 16 Creatinine 1.01 Calcium 8.9 D Urine 06/02/24 Range/Units 08:40 Urine Color Yellow Urine Appearance Clear Urine pH 8.0 (5.0-9.0) Ur Specific [place] 1.015 (1.005-1.025) Urine Protein Negative (Neg-Trace) mg/dL Urine Glucose (UA) Negative (Negative) mg/dL Assessment and Plan (1) Altered mental status: Status: Acute probably multifactorial . R/o medication effect. Imaging studies without evidence of stroke Recom. EEG and MRI brain if she is cooperative Procedures Date of Service Date of Service: 06/02/24
[2024-06-02 19:26] VITALS: BP 162/88; PULSE 84; RESP 16; TEMP 36.8; O2SAT 94
[2024-06-02] MEDS: traZODone HCL 50 MG TABLET PO (20:46)
[2024-06-02] MEDS: Melatonin 3 MG TABLET 6 MG PO (20:46)
[2024-06-02] MEDS: Donepezil HCl 5 MG TABLET PO (20:46)
[2024-06-02] MEDS: LORazepam 0.5 MG TABLET PO (20:46)
[2024-06-02 23:05] VITALS: BP 122/70; PULSE 70; RESP 16; TEMP 36.8; O2SAT 94
[2024-06-03 04:00] VITALS: BP 114/70; PULSE 61; RESP 16; TEMP 36.7; O2SAT 93
[2024-06-03 06:29] LABS: MANUAL DIFF FLAG NO
[2024-06-03 06:35] LABS: Basophils Percent Auto 0.3 % (0-2); Eosinophils Absolute Auto 0.1 X10*3/uL (0.0-0.4); Eosinophils Percent Auto 1.9 % (0-4); Hemoglobin 10.3 g/dl (12.0-16.0); Imm Gran Abs Auto 0.01 X10*3/uL (0.00-0.03); Imm Gran Pct Auto 0.1 % (0.0-0.4); Lymphocytes Absolute Auto 3.1 X10*3/uL (1.2-4.9); Lymphocytes Percent Auto 46.7 % (20-40); Mean Corpuscular HGB Conc 33.2 g/dl (31.0-35.0); Mean Corpuscular Hemoglobin 30.1 pg (27.0-33.0); Mean Corpuscular Volume 90.6 fL (80.0-98.0); Mean Platelet Volume 11.6 fL (9.4-12.3); Monocytes Absolute Auto 1.1 X10*3/uL (0.1-1.2); Neutrophils Absolute Auto 2.3 x10*3/uL (2.0-8.3); Platelet Count 142 X10*3/uL (160-400); Red Blood Count 3.42 X10*6/uL (4.20-5.50); Red Cell Distribution Width 13.3 % (11.0-16.0); White Blood Count 6.7 X10*3/uL (4.8-10.8)
[2024-06-03 06:49] LABS: Anion Gap 11 (12-20); Blood Urea Nitrogen 20 mg/dL (9-16); Calcium 8.3 mg/dL (8.4-10.2); Carbon Dioxide 26 mmol/L (22-29); Chloride 103 mmol/L (96-108); Estimated Glomerular Filt Rate 52; Glucose Random 71 mg/dL (60-115); Potassium 4.1 mmol/L (3.3-5.1); Sodium 136 mmol/L (135-145)
[2024-06-03 07:31] VITALS: BP 123/63; PULSE 72; RESP 14; TEMP 36.7; O2SAT 94
[2024-06-03] MEDS: 0.9 % Sodium Chloride Flush 3 ML SYRINGE IVFLUSH ×3 (09:21→21:16)
[2024-06-03] MEDS: Cholecalciferol (Vitamin D3) 25 MCG TABLET 50 MCG PO (09:22)
[2024-06-03] MEDS: OLANZapine 2.5 MG TABLET PO ×2 (09:22→21:16)
[2024-06-03] MEDS: Atorvastatin Calcium 20 MG TABLET PO (09:22)
[2024-06-03] MEDS: Divalproex Sodium Sprinkles 125 MG CAP.DR.SPR 250 MG PO ×3 (09:22→21:15)
[2024-06-03] MEDS: oxyBUTYnin chloride ER 5 MG TAB.ER.24 15 MG PO (09:22)
[2024-06-03] MEDS: Fluticasone Propionate Nasal 16 GM SPRAY 2 SPRAY NOSTRIL-B (09:23)
[2024-06-03] MEDS: Loratadine 10 MG TABLET PO (09:23)
[2024-06-03] MEDS: Omeprazole 20 MG CAPSULE.DR PO (09:23)
[2024-06-03 11:12] VITALS: BP 135/64; PULSE 77; RESP 15; TEMP 36.3; O2SAT 94
--- NOTE | 2024-06-03 11:35 | MHC.SL.SWA ---
Speech Pathologist Impression: Mild oral phase dysphagia d/t decreased self awareness and loose fitting dentures, pharyngeal swallow WFL but pt at risk for aspiration d/t nature of oral phase dysphagia (i.e. not thoroughly chewing solids) Risk of Aspiration Due to: Neurological Condition Reduced Cognition Dysphasia Diet Status: Recommend continue on [place] (NDD2) with thin liquids, pills crushed in puree. Recommend d/c speech service at this time, please re-contact if additional concerns arise. Liquid Consistency and Strategies for Safe Swallow: Liquid Intake Recommendation: Thin Liquid Intake Strategies: Small Sips Solid Food Consistency: Dietary Recommendations: Grnd/Mech Altered (NDD2) Additional Modifications to Solid Foods: Patient with mild oral phase dysphagia d/t edentulous status and aspiration risk associated with underlying dementia. Recommend start on GROUND/MECH ALTERED (NDD2) solids and THIN liquids, pills CRUSHED in PUREE. Patient will need direct supervision, assist as needed with tray set up and throughout feeding. Oral Medication Intake: Crushed with Puree Please contact the pharmacy regarding appropriate crushable or liquid drug formulations that are available whenever modified delivery is recommended. Compensatory Strategies and Precautions to be Taken for Safe Swallow: Sitting Upright (90 deg) Small Bites and Sips Alternate Liquids/Solids Rate of Ingestion Change Supervision While Eating and Drinking for Safe Swallow: Total Supervision (1:1) Foods to Avoid: [place] hard, dry, or crunchy foods Swallowing Recommended Treatments: Compens. Strategy Educat. Recommendation for Speech: Inpatient Speech Therapy Comment: Pt seen for dysphagia treatment. Pt tolerating diet as ordered. Pt requesting potato chips, none available on unit. Trials of ricky cracker provided, pt unable to chew with efficiency d/t loose fitting dentures, pt also speaking with mouth full. Sitter cued pt to spit out bolus, pt took empty cup but tried to sip from container vs spit out bolus. Pt swallowed bolus without difficulty but no further trials presented d/t poor self awareness and loose fitting dentures. Pt remained confused, perseverating on wanting to go home. RN reported plan is that pt will be transferred back to [facility]. Frequency/Duration: M-F Date Range for Service Req: Timeline to reassess: PRN Health Science Specialist Clinican/Clinical Fellow: No Supervisory Statement: I have reviewed and agree with the student/clinical fellow's documentation: N/A Speech Language Pathologist: Kathy Messer M.S., [facility] TECHNICIAN
--- NOTE | 2024-06-03 15:03 | MHC.CM.PN ---
Per EMR review, pt to be transferred back to [facility] when room in available.
[2024-06-03 15:21] VITALS: BP 133/80; PULSE 77; RESP 18; TEMP 36.3; O2SAT 97
--- NOTE | 2024-06-03 16:04 | P.PNIM_ITS ---
Subjective Subjective Date of Service: 06/03/24 Interval History: baseline confusion, wants to go home, no new neuro deficit Physical Exam 2 Vital Signs: Vital Signs: Last Vital Signs Temp 97.3 F 06/03/24 15:21 Pulse 77 06/03/24 15:21 Resp 18 06/03/24 15:21 BP 133/80 06/03/24 15:21 Pulse Ox 97 06/03/24 15:21 O2 Del Method Room Air 06/03/24 11:12 Const: Other: General: AO X 1, no acute distress Resp: CTA bilateral CVS: S1,S2,RRR GI: +BS, NT, no distention Skin: No rash Neuro: motor grossly intact Psych: appropriate affect Objective Data Active Medications Acetaminophen (Acetaminophen 325 Mg Tablet) 975 mg PO TID PRN PRN Reason: pain scale 1-10 Atorvastatin Calcium (Atorvastatin Calcium 20 Mg Tablet) 20 mg PO DAILY [facility] Last Admin: 06/03/24 09:22 Dose: 20 mg Documented By: IVETTE Calcium Carbonate (Calcium Carbonate 750 Mg Tab.Chew) 750 mg PO Q4H PRN PRN Reason: Heartburn Divalproex Sodium (Divalproex Sodium Sprinkles 125 Mg [place]ilo.) 250 mg PO TID [facility] Last Admin: 06/03/24 09:22 Dose: 250 mg Documented By: IVETTE Donepezil HCl (Donepezil Hcl 5 Mg Tablet) 5 mg PO BEDTIME [facility] Last Admin: 06/02/24 20:46 Dose: 5 mg Documented By: MONTSERRAT Fluticasone Propionate (Fluticasone Propionate Nasal 16 Gm [place]) 2 spray NOSTRIL-B DAILY [facility] Last Admin: 06/03/24 09:23 Dose: 2 spray Documented By: IVETTE Levothyroxine Sodium (Levothyroxine Sodium 75 Mcg Tablet) 75 mcg PO DAILY@0600 [facility] Last Admin: 06/03/24 05:46 Dose: Not Given Documented By: MONTSERRAT Non-Admin Reason: Patient Refused Loratadine (Loratadine 10 Mg Tablet) 10 mg PO DAILY [facility] Last Admin: 06/03/24 09:23 Dose: 10 mg Documented By: IVETTE Lorazepam (Lorazepam 0.5 Mg Tablet) 0.5 mg PO TID PRN PRN Reason: Anxiety Last Admin: 06/02/24 20:46 Dose: 0.5 mg Documented By: MONTSERRAT Magnesium Hydroxide (Milk Of Magnesia 30 Ml Oral.Susp) 30 ml PO DAILY PRN PRN Reason: Constipation Melatonin (Melatonin 3 Mg Tablet) 6 mg PO BEDTIME PRN PRN Reason: Insomnia Last Admin: 06/02/24 20:46 Dose: 6 mg Documented By: MONTSERRAT Olanzapine (Olanzapine 2.5 Mg Tablet) 2.5 mg PO BID [facility] Last Admin: 06/03/24 09:22 Dose: 2.5 mg Documented By: IVETTE Olanzapine (Olanzapine 5 Mg Tablet) 5 mg PO Q6H PRN PRN Reason: agitation Omeprazole (Omeprazole 20 Mg Capsule.Dr) 20 mg PO DAILY@0630 [facility] Last Admin: 06/03/24 09:23 Dose: 20 mg Documented By: IVETTE Oxybutynin Chloride (Oxybutynin Chloride Er 5 Mg Tab.Er.24) 15 mg PO DAILY [facility] Last Admin: 06/03/24 09:22 Dose: 15 mg Documented By: IVETTE Sodium Chloride (0.9 % Sodium Chloride Flush 3 Ml Syringe) 3 ml IVFLUSH QSHIFT [facility] Last Admin: 06/03/24 09:21 Dose: 3 ml Documented By: IVETTE Trazodone HCl (Trazodone Hcl 50 Mg Tablet) 50 mg PO BEDTIME PRN PRN Reason: sleep Trazodone HCl (Trazodone Hcl 50 Mg Tablet) 50 mg PO BEDTIME [facility] Last Admin: 06/02/24 20:46 Dose: 50 mg Documented By: MONTSERRAT Vitamin D (Cholecalciferol (Vitamin D3) 25 Mcg Tablet) 50 mcg PO DAILY [facility] Last Admin: 06/03/24 09:22 Dose: 50 mcg Documented By: IVETTE Labs 06/03/24 05:37 06/03/24 05:37 Labs: Laboratory Results - last 24 hr 06/03/24 05:37 MCV 90.6 MCH 30.1 MCHC 33.2 RDW 13.3 Plt Count 142 L MPV 11.6 Immature Gran % (Auto) 0.1 Neut % (Auto) 35.0 L Lymph % (Auto) 46.7 H Castro % (Auto) 16.0 H Eos % (Auto) 1.9 Baso % (Auto) 0.3 Lymph # (Auto) 3.1 Castro # (Auto) 1.1 Eos # (Auto) 0.1 Baso # (Auto) 0.0 Abs Immat Gran (auto) 0.01 Absolute Neuts (auto) 2.3 Absolute Nucleated RBC 0.000 Nucleated RBC % (auto) 0.0 Anion Gap 11 L Estim Creat Clear Calc TNP Estimated GFR 52 Random Glucose 71 Calcium 8.3 L D Assessment and Plan (1) Altered mental status: Status: Acute (2) Dementia: Status: Acute Plan Patient is an 79-year-old female with a past medical history significant for HTN, HLD, GERD, dementia, hypothyroid, initially on [facility], code stroke called due to a brief moment of altered mental status. Patient was not responsive to nursing staff but does wear hearing aids and did not have them in. AMS concern for TIA or CVA due to ?dysarthria, CVA rule out see by Neuro, will not cooperate with EEG or MRI HTN--no on meds, bp normal GERD - continue PPI dementia/mood - plan per psych hypothyroid - continue levothyroxine DNR/DNI VTE prophy: pneumoboots pending CT results patient with altered mental status with concern for TIA or CVA due to no dysarthria, transferred from [facility] floor for further medical evaluation and monitoring. Pt to return to [facility] when bed available Quality Stroke Does the patient have a stroke diagnosis?: No VTE Prior VTE?: No VTE Risk Level:: Medical - moderate - high VTE Device Contraindication: N/A - Device Ordered VTE Drug Contraindication: Treatment Not Indicated
[2024-06-03 19:26] VITALS: BP 142/90; PULSE 93; RESP 18; TEMP 36.7; O2SAT 94
[2024-06-03] MEDS: Donepezil HCl 5 MG TABLET PO (21:15)
[2024-06-03] MEDS: traZODone HCL 50 MG TABLET PO (21:15)
[2024-06-03 23:04] VITALS: BP 148/71; PULSE 81; RESP 18; TEMP 36.8; O2SAT 95
[2024-06-04 04:00] VITALS: BP 125/72; PULSE 66; RESP 16; TEMP 36.1; O2SAT 94
[2024-06-04] MEDS: Levothyroxine Sodium 75 MCG TABLET PO (05:55)
[2024-06-04 06:30] LABS: MANUAL DIFF FLAG NO
[2024-06-04 06:34] LABS: Basophils Percent Auto 0.4 % (0-2); Eosinophils Absolute Auto 0.2 X10*3/uL (0.0-0.4); Eosinophils Percent Auto 2.2 % (0-4); Hematocrit 32.6 % (37.0-47.0); Hemoglobin 10.7 g/dl (12.0-16.0); Imm Gran Abs Auto 0.01 X10*3/uL (0.00-0.03); Imm Gran Pct Auto 0.1 % (0.0-0.4); Lymphocytes Absolute Auto 3.3 X10*3/uL (1.2-4.9); Mean Corpuscular HGB Conc 32.8 g/dl (31.0-35.0); Mean Corpuscular Hemoglobin 29.8 pg (27.0-33.0); Mean Corpuscular Volume 90.8 fL (80.0-98.0); Mean Platelet Volume 11.7 fL (9.4-12.3); Monocytes Percent Auto 14.2 % (2-11); Neutrophils Absolute Auto 2.3 x10*3/uL (2.0-8.3); Neutrophils Percent Auto 34.1 % (45-73); Platelet Count 143 X10*3/uL (160-400); Red Blood Count 3.59 X10*6/uL (4.20-5.50); Red Cell Distribution Width 13.5 % (11.0-16.0); White Blood Count 6.8 X10*3/uL (4.8-10.8)
[2024-06-04 06:49] LABS: Anion Gap 11 (12-20); Blood Urea Nitrogen 17 mg/dL (9-16); Calcium 8.5 mg/dL (8.4-10.2); Carbon Dioxide 27 mmol/L (22-29); Chloride 102 mmol/L (96-108); Estimated Glomerular Filt Rate > 60; Glucose Random 72 mg/dL (60-115); Potassium 4.4 mmol/L (3.3-5.1); Sodium 136 mmol/L (135-145)
[2024-06-04 07:03] VITALS: BP 156/84; PULSE 67; RESP 14; TEMP 36.2; O2SAT 97
[2024-06-04] MEDS: Atorvastatin Calcium 20 MG TABLET PO (09:40)
[2024-06-04] MEDS: Divalproex Sodium Sprinkles 125 MG CAP.DR.SPR 250 MG PO (09:40)
[2024-06-04] MEDS: OLANZapine 2.5 MG TABLET PO (09:40)
[2024-06-04] MEDS: oxyBUTYnin chloride ER 5 MG TAB.ER.24 15 MG PO (09:40)
[2024-06-04] MEDS: Cholecalciferol (Vitamin D3) 25 MCG TABLET 50 MCG PO (09:40)
[2024-06-04] MEDS: Loratadine 10 MG TABLET PO (09:41)
[2024-06-04] MEDS: 0.9 % Sodium Chloride Flush 3 ML SYRINGE IVFLUSH (09:41)
[2024-06-04 10:53] VITALS: BP 127/73; PULSE 78; RESP 15; TEMP 36.6; O2SAT 94
--- NOTE | 2024-06-04 11:15 | P.DS_ITS ---
DS: Providers Provider Date of Service: 06/04/24 Date of admission: 06/02/24 07:15 Date of discharge: 06/04/24 Primary care physician: Joseph Alejandro MD Consults: 06/02/24 07:18 Consult to Neurology Routine Consulting Provider: Flako Fragoso Reason for consultation: AMS, ?TIA vs CVA Has provider been notified: No 06/03/24 10:01 In CARE Team Crisis Consult Routine Comment: Reason for consultation: medically ready for discharge DS: Diagnosis Discharge Diagnosis (1) Altered mental status: Status: Acute (2) Dementia: Status: Deleted DS: Summary Hospital Course Hospital Course: admission hpi Chief Complaint: AMS ?TIA Patient is an 79-year-old female with a past medical history significant for HTN, HLD, GERD, dementia, hypothyroid, initially on [facility], code stroke called due to a brief moment of altered mental status. Patient was not responsive to nursing staff but does wear hearing aids and did not have them in. She was still having trouble understanding after they placed her hearing aids. She asked to go to the bathroom and was able to ambulate without difficulty with her walker. Her speech is questionably slurred per the nursing staff but understandable. EKG was normal, blood pressure normal systolic in the 120s. Blood glucose 86. She was transferred off the psych floor to [facility] for possible stroke versus TIA. NIH score 1 hospital course: Patient was admitted and underwent stroke work up with CT head and CTA of head and neck, demonstrating no acute stroke. She has not had any other neuro changes and has been at her baseline mentals status. Neurology saw her and recommend EEG and MRI if patient can tolerate, unfortunately due to her behavioral issues, she will not tolerate MRI, EEG will be done when available but should not keep her from being transfer to the [facility]. Overall her presentation is not consistent with acute stroke or TIA and therefore no further management changes at this time and is to return to [facility] Time Attestation Discharge Coordination Time (in mins): 40 Quality: Safe Use of Opioids Does Pt have an Active Cancer Diagnosis on the Problem List?: No Quality: Stroke Does the patient have a stroke diagnosis?: No Physical Exam Vital Signs: Vital Signs: Last Vital Signs Temp 97.8 F 06/04/24 10:53 Pulse 78 06/04/24 10:53 Resp 15 06/04/24 10:53 BP 127/73 06/04/24 10:53 Pulse Ox 94 06/04/24 10:53 O2 Del Method Room Air 06/04/24 10:53 Const: Other: General: AO X 1, no acute distress Resp: CTA bilateral CVS: S1,S2,RRR GI: +BS, NT, no distention Skin: No rash Neuro: motor grossly intact Psych: appropriate affect DS: Data Data Completed and Pending Labs on day of discharge: Laboratory Results - last 24 hr 06/04/24 05:25 WBC 6.8 RBC 3.59 L Hgb 10.7 L Hct 32.6 L MCV 90.8 MCH 29.8 MCHC 32.8 RDW 13.5 Plt Count 143 L MPV 11.7 Immature Gran % (Auto) 0.1 Neut % (Auto) 34.1 L Lymph % (Auto) 49.0 H Dillon % (Auto) 14.2 H Eos % (Auto) 2.2 Baso % (Auto) 0.4 Lymph # (Auto) 3.3 Dillon # (Auto) 1.0 Eos # (Auto) 0.2 Baso # (Auto) 0.0 Abs Immat Gran (auto) 0.01 Absolute Neuts (auto) 2.3 Absolute Nucleated RBC 0.000 Nucleated RBC % (auto) 0.0 Sodium 136 Potassium 4.4 Chloride 102 Carbon Dioxide 27 Anion Gap 11 L BUN 17 H Creatinine 0.89 Estim Creat Clear Calc TNP Estimated GFR > 60 Random Glucose 72 Calcium 8.5 Discharge Plan Discharge Anticipated Discharge Date/Time: 06/04/24 11:09 Patient Disposition: Xfer Psychiatric Hosp Discharge Diagnosis: Transietn altered mental status Referrals: Joseph Alejandro MD [Primary Care Provider] - 1 Week Discharge Medications: Continued timolol maleate 0.5 % drops 1 drp ophthalmic (eye) DAILY Rx Instructions: Both eyes fluticasone propionate 50 mcg/actuation spray,suspension 2 spray intranasal DAILY Rx Instructions: Administer in each nostril cholecalciferol (vitamin D3) [Vitamin D3] 50 mcg (2,000 unit) Tablet 50 mcg PO DAILY acetaminophen 325 mg Tablet 975 mg PO TID PRN (Reason: pain scale 1-10) Qty: 0 0RF atorvastatin 20 mg Tablet 20 mg PO DAILY Qty: 0 0RF donepezil 5 mg Tablet 5 mg PO BEDTIME Qty: 0 0RF trazodone 50 mg Tablet 50 mg PO BEDTIME PRN (Reason: sleep) Qty: 0 0RF trazodone 50 mg Tablet 50 mg PO BEDTIME Qty: 0 0RF olanzapine 5 mg Tablet 5 mg PO Q6H PRN (Reason: agitation) Qty: 0 0RF olanzapine 2.5 mg Tablet 2.5 mg PO BID Qty: 0 0RF levothyroxine 75 mcg Tablet 75 mcg PO DAILY@0600 Qty: 0 0RF lorazepam 0.5 mg Tablet 0.5 mg PO TID PRN (Reason: Anxiety) Qty: 0 0RF oxybutynin chloride 5 mg Tablet Extended Release 24hr 15 mg PO DAILY Qty: 0 0RF omeprazole 20 mg Capsule,Delayed Release(Dr/Ec) 20 mg PO DAILY@0700 Qty: 0 0RF divalproex 125 mg Capsule, Delayed Rel Sprinkle 250 mg PO TID Qty: 0 0RF loratadine 10 mg Tablet 10 mg PO DAILY Qty: 0 0RF aspirin 81 mg tablet,delayed release (DR/EC) 81 mg PO DAILY divalproex 250 mg tablet extended release 24 hr 250 mg PO BID Discharge Orders: Discharge Order (Routine); Ordered 06/04/24 Ordered By: Fortino Anguiano Diet: Advance to usual diet Activity on Discharge: As tolerated Stand Alone Forms: Patient Portal Discharge page Print Language: Choose Not To Answer Care Plan Goals: return to [facility] for behavioral care Health Concerns: dimentia with behavior isssues transient altered mental status Plan of Treatment: To return to [facility] for complete prior care Discharge Date/Time: 06/04/24 12:11
== END 2024-06-04 12:11 | DRG 884 ==
PROVIDERS: Admitting Provider Physician Assistant; PCP Internal Medicine; Visit Provider Internal Medicine
DX: R40.4 Transient alteration of awareness (principal); F03.918 Unspecified dementia, unspecified severity, with other behavioral disturbance; R47.1 Dysarthria and anarthria; E03.9 Hypothyroidism, unspecified; E78.5 Hyperlipidemia, unspecified; K21.9 Gastro-esophageal reflux disease without esophagitis; I10 Essential (primary) hypertension; Z66 Do not resuscitate; Z79.51 Long term (current) use of inhaled steroids; Z79.82 Long term (current) use of aspirin; Z79.890 Hormone replacement therapy; Z79.899 Other long term (current) drug therapy
CPT/HCPCS: 36415; 80048; 81003; 85025; 85027; 85730; 92610; 93306; 97162; 97166; Q9957; S9485

== ENCOUNTER → 2024-06-02 07:15 | Outpatient (BNV) | payer OTHER, MEDICAID, SELFPAY | PROVIDERS: Admitting Provider Physician Assistant; PCP Internal Medicine; Visit Provider Internal Medicine | DX: R41.82 Altered mental status, unspecified (principal); F03.90 Unspecified dementia, unspecified severity, without behavioral disturbance, psychotic disturbance, mood disturbance, and anxiety; R47.1 Dysarthria and anarthria | CPT/HCPCS: 99222; 99232 ==

== ENCOUNTER → 2024-06-02 07:15 | Outpatient (BNV) | payer MEDICARE, MEDICAID, SELFPAY | PROVIDERS: Admitting Provider Physician Assistant; Visit Provider Psychiatry & Neurology Neurology | DX: R41.82 Altered mental status, unspecified (principal) | CPT/HCPCS: 99222 ==

== ENCOUNTER 2024-06-04 11:38 | Outpatient (BNV) | payer MEDICARE, MEDICAID, SELFPAY | END 2024-07-16 16:37 | PROVIDERS: Admitting Provider Social Worker; Visit Provider Radiology Diagnostic Radiology | DX: R41.82 Altered mental status, unspecified (principal) | CPT/HCPCS: 70450 ==

== ENCOUNTER 2024-06-04 11:38 | Outpatient (BNV) | payer MEDICARE, MEDICAID, SELFPAY | END 2024-06-19 16:57 | PROVIDERS: Admitting Provider Social Worker; Visit Provider Internal Medicine | DX: R94.31 Abnormal electrocardiogram [ECG] [EKG] (principal); R41.82 Altered mental status, unspecified | CPT/HCPCS: 93010 ==

== ENCOUNTER 2024-06-04 11:38 | Outpatient (BNV) | payer MEDICARE, MEDICAID, SELFPAY | END 2024-06-16 07:30 | PROVIDERS: Admitting Provider Social Worker; Visit Provider Internal Medicine | DX: I45.2 Bifascicular block (principal); I25.2 Old myocardial infarction; I49.9 Cardiac arrhythmia, unspecified | CPT/HCPCS: 93010 ==

== ENCOUNTER 2024-06-04 11:38 | Outpatient (BNV) | payer MEDICARE, MEDICAID, SELFPAY | END 2024-06-11 11:03 | PROVIDERS: Admitting Provider Social Worker; Visit Provider Internal Medicine Cardiovascular Disease | DX: I25.2 Old myocardial infarction (principal); R00.1 Bradycardia, unspecified | CPT/HCPCS: 93010 ==

== ENCOUNTER 2024-06-04 11:38 | Outpatient (BNV) | payer OTHER, MEDICAID, SELFPAY | END 2024-07-19 18:38 | PROVIDERS: Admitting Provider Social Worker; Visit Provider Student in an Organized Health Care Education/Training Program | DX: J98.11 Atelectasis (principal) | CPT/HCPCS: 71046 ==

== ENCOUNTER 2024-06-04 11:38 | Inpatient (IN) | payer OTHER, MEDICAID, SELFPAY ==
--- NOTE | ~2024-06-04 | US_ITS ---
EXAMINATION: US EXTRACRANIAL CAROTID DUPLEX, BILATERAL CLINICAL INFORMATION: Syncope. COMPARISON: None available. TECHNIQUE: Real-time ultrasound and Doppler techniques (integrating B-mode 2-D vascular images, Doppler spectral analysis and color-flow Doppler imaging) were utilized to interrogate the extracranial carotid arteries, the vertebral arteries and proximal subclavian arteries bilaterally. The degree of stenosis is determined by criteria similar to NASCET. FINDINGS: Right Side: 1. There is trace intimal thickening with no significant atherosclerotic plaque seen in the bifurcation/proximal ICA region. 2. The common carotid artery PSV proximally is 72 cm/s and distally 39 cm/s. 3. The proximal internal carotid artery velocities are 47 cm/s systolic and 20 cm/s diastolic. 4. The proximal external carotid artery PSV is 84 cm/s. 5. The vertebral artery shows normal antegrade low resistance flow with peak systolic velocity of 23 cm/s. 6. The subclavian artery waveforms are normal. Left Side: 1. There is trace internal thickening with no significant atherosclerotic plaque seen in the bifurcation/proximal ICA region. 2. The common carotid artery PSV proximally is 50 cm/s and distally 48 cm/s. 3. The proximal internal carotid artery velocities are 49 cm/s systolic and 18 cm/s diastolic. 4. The proximal external carotid artery PSV is 55 cm/s. 5. The vertebral artery shows normal antegrade low resistance flow with peak systolic velocity of 31 cm/s. 6. The subclavian artery waveforms are normal. US/US carotid duplex BI IMPRESSION: 1. RIGHT: Normal right internal carotid artery without significant atherosclerotic plaque or hemodynamically significant stenosis. 2. LEFT: Normal left internal carotid artery without significant atherosclerotic plaque or hemodynamically significant stenosis. Electronically signed by: Zach Adam MD 07/22/2024 09:13 AM EDT
--- NOTE | ~2024-06-04 | CT_ITS ---
CLINICAL HISTORY: AMS CT HEAD WITHOUT CONTRAST Comparison: CT/SR - CT HEAD FOR STROKE - 06/02/24 07:01 EDT Findings: No acute intracranial hemorrhage, extra-axial fluid collection, hydrocephalus or midline shift. Stable age-appropriate generalized parenchymal atrophy and mild white matter changes. No evidence for acute large territorial infarct. No sinus or mastoid fluid. Visualized orbits: No acute abnormalities. No skull fracture. Redemonstration of hyperostosis frontalis interna. IMPRESSION: No acute intracranial process. This document has been electronically signed by: Vero De Souza DO on 07/16/2024 17:15:34
--- NOTE | ~2024-06-04 | XR_ITS ---
CLINICAL HISTORY: ?crackles at lung bases 2 view chest x-ray Comparison: CT/SR - CT ANGIO CHEST PE PROTOCOL - 05/29/24 20:01 EDT Findings: Right basilar subsegmental atelectasis, otherwise unremarkable. Heart size is normal. No acute fracture. IMPRESSION: Right basilar subsegmental atelectasis, otherwise unremarkable. This document has been electronically signed by: Dante Torre MD on 07/19/2024 20:00:30
--- NOTE | ~2024-06-04 | XR_ITS ---
EXAMINATION: XR CHEST CLINICAL INFORMATION: SOB COMPARISON: 07/19/2024. TECHNIQUE: Frontal view of the chest was obtained. FINDINGS: The cardiac, hilar, and mediastinal contours are normal. There is mild right middle lobe scarring. Subsegmental bibasilar atelectasis. Lungs otherwise clear. No pneumothorax or effusion. No focal osseous or soft tissue abnormality. XR/XR chest 1V IMPRESSION: No active pulmonary disease. Electronically signed by: Zach Adam MD 07/23/2024 12:58 PM EDT
[2024-06-04 13:57] LABS: Alanine Aminotransferase 15 U/L (0-31); Albumin Level 3.6 g/dL (3.5-5.0); Alkaline Phosphatase 103 U/L (39-117); Anion Gap 13 (12-20); Aspartate Amino Transferase 23 U/L (5-31); Bilirubin Total 0.5 mg/dL (0.0-1.0); Blood Urea Nitrogen 18 mg/dL (9-16); Calcium 8.9 mg/dL (8.4-10.2); Carbon Dioxide 25 mmol/L (22-29); Chloride 101 mmol/L (96-108); Estimated Glomerular Filt Rate 53; Glucose Random 123 mg/dL (60-115); Potassium 4.1 mmol/L (3.3-5.1); Sodium 135 mmol/L (135-145); Total Protein 6.5 g/dL (6.5-8.0)
--- OUTSIDE RECORDS SUMMARY | 2024-06-04 14:56 | XMS_ITS | Clinical Summary ---
Author Organization [facility] Address [address] [place] [address] Phone Care Team Providers Care Inside Sales Advertising Executive Name Role Phone Jackelyn Jansen DO Primary Care Provider [phone] Allergies Active Allergy Reactions Criticality Noted Date [...] breath 01/16/2024 COVID-19 01/16/2024 Acute hypoxic respiratory fa ilure ([facility] V24, [facility] V28) 01/14/2024 Encounters Date Type Department Care Team Description 04/01/2024 Lab Requisition [facility] Main Lab [address] [place] [address] Hunter Carvalho MD Essential (primary) hypertension 03/25/2024 Lab Requisition [facility] Lab [address] [place] [address] Hunter Carvalho MD Essential (primary) hypertension 03/18/2024 Lab Requisition [facility] Lab [address] [place] [address] Hunter Carvalho MD Essential (primary) hypertension 03/11/2024 Lab Requisition [facility] Lab [address] [place] [address] Hunter Carvalho MD Essential (primary) hypertension from Last 3 Months Surgical History Surgery Date Site/Laterality Comments SECTION PROCEDURE: HISTORICAL DELIVERY; COMMENT: x2 COLONOSCOPY 03/17/15 PROCEDURE: HISTORICAL COLONOSCOPY; COMMENT: Dr. Sommer - segmental ischemic colitis Medical History Medical History Date Comments Atrial fibrillation ([facility] V24, [facility] V28) 10/08/2013 DX:Atrial fibrillation (HCC) ; COMMENT: Lone AF in setting of GI illness; not recurrent on Holter or 30-day recorder Depression 03/22/2009 DX:Depression Hyperlipidemia 03/04/2009 DX:Hyperlipidemi a Ischemic colitis ([facility] V24) 03/22/2015 D X:Ischemic colitis (HCC); COMMENT: 03/12; colo Dr Sommer. CTA of mesenteric arteries normal 05/23/2015. Seizures ([facility] V24, [facility] V28) 03/04/2009 DX:Seizures ([facility]); COMMENT: Dr. Simeon initially, now Dr Oscar Stroke ([facility] V24, [facility] V28) Disease of thyroid gland GERD (gastroesophageal reflux disease) Hard of hearing Thrombocytopenia ([facility] V24) Clotting disorder ([facility] V24) Family History Medical History Relation Name Comments [...] Influencers of Health Screening 01/23/2022 COVID-19 Vaccine ( - season) 2023 07/31/2021 Influenza Vaccine (Season Ended) 2024 02/06/2021, 12/20/2017, 01/27/2015, Additional history exists Falls Risk [...] mmol/L LAB CHEMISTRY METHOD 03/02/2024 12:59 PM [facility] Potassium 4.1 3.5 - 5.5 mmol/L LAB CHEMISTRY METHOD 03/02/2024 12:59 PM [facility] Chloride 105 96 - 110 mmol/L LAB CHEMISTRY METHOD 03/02/2024 12:59 PM [facility] CO2 26 21 - 32 mmol/L LAB CHEMISTRY METHOD 03/02/2024 12:59 PM [facility] Anion Gap 8 3 - 11 LAB CHEMISTRY METHOD 03/02/2024 12:59 PM [facility] Glucose 65(L) 70 - 100 mg/dL LAB CHEMISTRY METHOD 03/02/2024 12:59 PM [facility] BUN 20 5 - 25 mg/dL LAB CHEMISTRY METHOD 03/02/2024 12:59 PM [facility] Creatinine 0.94 0.50 - 1.10 mg/dL LAB CHEMISTRY METHOD 03/02/2024 12:59 PM [facility] eGFR 62 >=60 mL/min/1. 73m2 LAB CHEMISTRY METHOD 03/02/2024 12:59 PM [facility] Comment:Calculation based on the??Chronic Kidney Disease Epidemiology Collaboration (CKD-EPI) equation refit??without adjustment for race. BUN/Creatinine Ratio 21.3 LAB CHEMISTRY METHOD 03/02/2024 12:59 PM [facility] Calcium 8.4(L) 8.5 - 10.5 mg/dL LAB CHEMISTRY METHOD 03/02/2024 12:59 PM [facility] AST (SGOT) 16 10 - 42 unit/L LAB CHEMISTRY METHOD 03/02/2024 12:59 PM [facility] ALT (SGPT) 20 10 - 60 unit/L LAB CHEMISTRY METHOD 03/02/2024 12:59 PM [facility] Alkaline Phosphatase 110 42 - 121 unit/L LAB CHEMISTRY METHOD 03/02/2024 12:59 PM [facility] Total Protein 5.2(L) 6.0 - 8.0 g/dL LAB CHEMISTRY METHOD 03/02/2024 12:59 PM [facility] Albumin 2.7(L) 3.2 - 5.0 g/dL LAB CHEMISTRY METHOD 03/02/2024 12:59 PM [facility] Total Bilirubin 0.6 0.0 - 1.4 mg/dL LAB CHEMISTRY METHOD 03/02/2024 12:59 PM [facility] Blood Venous blood specimen / Unknown Venipuncture / Unknown 03/02/2024 5:13 AM EST 03/02/2024 10:55 AM EST Hunter Carvalho MD LAB BLOOD ORDERABLES Final Resul t [facility] LAB [address] [place] [address], from Last 3 Months or Most Recently Relevant to Health Maintenance Insurance MEDICAID - [place] [employer] MEDICARE Advance Directives Documents on File Type Date Recorded Patient Battery Service Technician Expl anation Health Care Decision (hx) 03/23/2015 [...] Agents on File Name Relationship Healthcare Agent Relationshi p Communication Jana Mascorro Daughter Health Care Agent Care Teams Inside Sales Advertising Executive Relationship Specialty Start Date End Date Jackelyn Jansen DO [address] [place] [address] PCP - General 12/13/23
--- OUTSIDE RECORDS SUMMARY | 2024-06-04 14:56 | XMS_ITS | Encounter Summary ---
Author Organization [facility] Address [address] [place] [address] Care Team Providers Care Injection Molding Supervisor Name Role Phone Jackelyn Jansen DO Primary Care Provider [phone] Encounter Details Date Type Department Care Team (Late st Contact Info) Description 03/11/2024 Lab Requisition [facility] - Main Lab [address] [facility] [place] [phone] Hunter Carvalho MD [address] [place] [address] Essential (primary) hypertension Social History Tobacco Use [...] hypertension documented in this encounter Care Teams Injection Molding Supervisor Relationship Specialty Start Date End Date Jackelyn Jansen DO [address] [place] [address] PCP - General 12/13/23 documented as of this encounter
--- OUTSIDE RECORDS SUMMARY | 2024-06-04 14:56 | XMS_ITS | Encounter Summary ---
Author Organization [facility] Address [address] [place] [address] Care Team Providers Care Summer Camp Counselor Name Role Phone Jackelyn Jansen Primary Care Provider [phone] Encounter Details Date Type Department Care Team (Late st Contact Info) Description 02/20/2024 Lab Requisition [facility] - Main Lab [address] [facility] [place] [phone] Hunter Carvalho MD [address] [place] [address] Hypothyroidism, unspecified; Deficiency of other vitamins; Unspecified [...] Thyroid stimulating hormone (02/20/2024 5:15 AM EST) [facility] TSH 3.78 0.40 - 4.00 mcIU/mL LAB CHEMISTRY METHOD 02/21/2024 10:10 AM EST [facility] Blood Venous blood specimen / Unknown Venipuncture / Unknown 02/20/2024 5:15 AM EST 02/20/2024 9:36 AM EST us Hunter Carvalho MD LAB BLOOD ORDERABLES Final Resul t Performing Organization Address [facility]/ZIP Co de Phone Number [facility] [address] [place] [address], [place] [phone] * (ABNORMAL) Vitamin D 25 hydroxy (02/20/2024 5:15 AM EST) Vit D, 25-Hydroxy 18.2(L) 30.0 - 80.0 ng/mL LAB CHEMISTRY METHOD 02/21/2024 10:10 AM [facility] Blood Venous blood specimen / Unknown Venipuncture / Unknown 02/20/2024 5:15 AM EST 02/20/2024 9:36 AM EST us Hunter Carvalho MD LAB BLOOD ORDERABLES Final Resul t Performing Organization Address [facility] Co de Phone Number [facility] [address] [place] [address], [place] [phone] * (ABNORMAL) Comprehensive metabolic panel (02/20/2024 5:15 AM EST) Sodium 141 133 - 145 mmol/L LAB CHEMISTRY METHOD 02/20/2024 10:55 AM [facility] Potassium 5.3 3.5 - 5.5 mmol/L LAB CHEMISTRY METHOD 02/20/2024 10:55 AM [facility] Chloride 108 96 - 110 mmol/L LAB CHEMISTRY METHOD 02/20/2024 10:55 AM [facility] CO2 32 21 - 32 mmol/L LAB CHEMISTRY METHOD 02/20/2024 10:55 AM [facility] Anion Gap 1(L) 3 - 11 LAB CHEMISTRY METHOD 02/20/2024 10:55 AM [facility] Glucose 68(L) 70 - 100 mg/dL LAB CHEMISTRY METHOD 02/20/2024 10:55 AM [facility] BUN 14 5 - 25 mg/dL LAB CHEMISTRY METHOD 02/20/2024 10:55 AM [facility] Creatinine 0.92 0.50 - 1.10 mg/dL LAB CHEMISTRY METHOD 02/20/2024 10:55 AM [facility] eGFR 63 >=60 mL/min/1. 73m2 LAB CHEMISTRY METHOD 02/20/2024 10:55 AM [facility] Comment:Calculation based on the??Chronic Kidney Disease Epidemiology Collaboration (CKD-EPI) equation refit??without adjustment for race. BUN/Creatinine Ratio 15.2 LAB CHEMISTRY METHOD 02/20/2024 10:55 AM [facility] Calcium 8.5 8.5 - 10.5 mg/dL LAB CHEMISTRY METHOD 02/20/2024 10:55 AM [facility] AST (SGOT) 25 10 - 42 unit/L LAB CHEMISTRY METHOD 02/20/2024 10:55 AM [facility] ALT (SGPT) 23 10 - 60 unit/L LAB CHEMISTRY METHOD 02/20/2024 10:55 AM [facility] Alkaline Phosphatase 120 42 - 121 unit/L LAB CHEMISTRY METHOD 02/20/2024 10:55 AM [facility] Total Protein 4.7(L) 6.0 - 8.0 g/dL LAB CHEMISTRY METHOD 02/20/2024 10:55 AM [facility] Albumin 2.4(L) 3.2 - 5.0 g/dL LAB CHEMISTRY METHOD 02/20/2024 10:55 AM [facility] Total Bilirubin 0.6 0.0 - 1.4 mg/dL LAB CHEMISTRY METHOD 02/20/2024 10:55 AM [facility] Blood Venous blood specimen / Unknown Venipuncture / Unknown 02/20/2024 5:15 AM EST 02/20/2024 9:36 AM EST Hunter Carvalho MD LAB BLOOD ORDERABLES Final Resul t [facility] [address] [place] [address], * (ABNORMAL) Complete blood count (02/20/2024 5:15 AM EST) WBC 5.6 4.8 - 10.8 K/mcL LAB HEMETOLOGY METHOD 02/20/2024 10:14 AM [facility] RBC 3.30(L) 3.80 - 4.80 M/mcL LAB HEMETOLOGY METHOD 02/20/2024 10:14 AM [facility] Hemoglobin 9.8(L) 11.5 - 16.0 g/dL LAB HEMETOLOGY METHOD 02/20/2024 10:14 AM [facility] Hematocrit 31.5(L) 35.0 - 47.0 % LAB HEMETOLOGY METHOD 02/20/2024 10:14 AM [facility] MCV 95.7 79.0 - 98.0 FL LAB HEMETOLOGY METHOD 02/20/2024 10:14 AM [facility] MCH 29.8 27.0 - 32.0 pcg LAB HEMETOLOGY METHOD 02/20/2024 10:14 AM [facility] MCHC 31.1(L) 32.0 - 37.0 g/dL LAB HEMETOLOGY METHOD 02/20/2024 10:14 AM [facility] RDW 16.5(H) 11.0 - 15.0 % LAB HEMETOLOGY METHOD 02/20/2024 10:14 AM [facility] Platelets 196 130 - 400 K/mcL LAB HEMETOLOGY METHOD 02/20/2024 10:14 AM EST [facility] MPV 12.6(H) 7.0 - 11.0 FL LAB HEMETOLOGY METHOD 02/20/2024 10:14 AM EST [facility] NRBC 0.0 <1.0 % LAB HEMETOLOGY METHOD 02/20/2024 10:14 AM EST [facility] NRBC Absolute 0.00 <0.10 K/mcL LAB HEMETOLOGY METHOD 02/20/2024 10:14 AM EST [facility] Blood Venous blood specimen / Unknown Venipuncture / Unknown 02/20/2024 5:15 AM EST 02/20/2024 9:36 AM EST Hunter Carvalho MD LAB BLOOD ORDERABLES Final Resul t [facility] [address] [place] [address], documented in this encounter Visit Diagnoses Diagnosis Hypothyroidism, unspecified Deficiency of other vitamins Unspecified displaced fracture of fifth cervical vertebra, subsequent encounter for fracture with routine healing documented in this encounter Care Teams Summer Camp Counselor Relationship Specialty Start Date End Date Jackelyn Jansen DO [address] [place] [address] PCP - General 12/13/23 documented as of this encounter
--- OUTSIDE RECORDS SUMMARY | 2024-06-04 14:56 | XMS_ITS | Encounter Summary ---
Author Organization [facility] Address [address] [place] [address] Care Team Providers Care Hospice Entrance Attendant Name Role Phone Jackelyn Jansen DO Primary Care Provider [phone] Encounter Details Date Type Department Care Team (Late st Contact Info) Description 02/25/2024 Lab Requisition [facility] - Main Lab [address] [facility] [place] [phone] Hunter Carvalho MD [address] [place] [address] Essential (primary) hypertension Social History Tobacco Use [...] Comprehensive metabolic panel (02/27/2024 5:23 AM EST) [facility] Sodium 144 133 - 145 mmol/L LAB CHEMISTRY METHOD 02/27/2024 10:12 AM [facility] Potassium 4.6 3.5 - 5.5 mmol/L LAB CHEMISTRY METHOD 02/27/2024 10:12 AM [facility] Chloride 110 96 - 110 mmol/L LAB CHEMISTRY METHOD 02/27/2024 10:12 AM [facility] CO2 31 21 - 32 mmol/L LAB CHEMISTRY METHOD 02/27/2024 10:12 AM [facility] Anion Gap 3 3 - 11 LAB CHEMISTRY METHOD 02/27/2024 10:12 AM [facility] Glucose 75 70 - 100 mg/dL LAB CHEMISTRY METHOD 02/27/2024 10:12 AM [facility] BUN 13 5 - 25 mg/dL LAB CHEMISTRY METHOD 02/27/2024 10:12 AM [facility] Creatinine 0.89 0.50 - 1.10 mg/dL LAB CHEMISTRY METHOD 02/27/2024 10:12 AM [facility] eGFR 66 >=60 mL/min/1. 73m2 LAB CHEMISTRY METHOD 02/27/2024 10:12 AM [facility] Comment:Calculation based on the??Chronic Kidney Disease Epidemiology Collaboration (CKD-EPI) equation refit??without adjustment for race. BUN/Creatinine Ratio 14.6 LAB CHEMISTRY METHOD 02/27/2024 10:12 AM [facility] Calcium 8.4(L) 8.5 - 10.5 mg/dL LAB CHEMISTRY METHOD 02/27/2024 10:12 AM [facility] AST (SGOT) 28 10 - 42 unit/L LAB CHEMISTRY METHOD 02/27/2024 10:12 AM [facility] ALT (SGPT) 29 10 - 60 unit/L LAB CHEMISTRY METHOD 02/27/2024 10:12 AM [facility] Alkaline Phosphatase 122(H) 42 - 121 unit/L LAB CHEMISTRY METHOD 02/27/2024 10:12 AM [facility] Total Protein 4.6(L) 6.0 - 8.0 g/dL LAB CHEMISTRY METHOD 02/27/2024 10:12 AM [facility] Albumin 2.5(L) 3.2 - 5.0 g/dL LAB CHEMISTRY METHOD 02/27/2024 10:12 AM [facility] Total Bilirubin 0.5 0.0 - 1.4 mg/dL LAB CHEMISTRY METHOD 02/27/2024 10:12 AM [facility] Blood Venous blood specimen / Unknown Venipuncture / Unknown 02/27/2024 5:23 AM EST 02/27/2024 9:31 AM EST Hunter Carvalho MD LAB BLOOD ORDERABLES Final Resul t [facility] [address] [place] [address], * (ABNORMAL) Complete blood count (02/27/2024 5:23 AM EST) WBC 4.6(L) 4.8 - 10.8 K/mcL LAB HEMETOLOGY METHOD 02/27/2024 9:58 AM [facility] RBC 3.30(L) 3.80 - 4.80 M/mcL LAB HEMETOLOGY METHOD 02/27/2024 9:58 AM [facility] Hemoglobin 10.0(L) 11.5 - 16.0 g/dL LAB HEMETOLOGY METHOD 02/27/2024 9:58 AM [facility] Hematocrit 31.7(L) 35.0 - 47.0 % LAB HEMETOLOGY METHOD 02/27/2024 9:58 AM [facility] MCV 97.5 79.0 - 98.0 FL LAB HEMETOLOGY METHOD 02/27/2024 9:58 AM [facility] MCH 30.8 27.0 - 32.0 pcg LAB HEMETOLOGY METHOD 02/27/2024 9:58 AM [facility] MCHC 31.5(L) 32.0 - 37.0 g/dL LAB HEMETOLOGY METHOD 02/27/2024 9:58 AM [facility] RDW 17.1(H) 11.0 - 15.0 % LAB HEMETOLOGY METHOD 02/27/2024 9:58 AM [facility] Platelets 148 130 - 400 K/mcL LAB HEMETOLOGY METHOD 02/27/2024 9:[address] [facility] MPV 12.4(H) 7.0 - 11.0 FL LAB HEMETOLOGY METHOD 02/27/2024 9:[address] [facility] NRBC 0.0 <1.0 % LAB HEMETOLOGY METHOD 02/27/2024 9:[address] [facility] NRBC Absolute 0.00 <0.10 K/mcL LAB HEMETOLOGY METHOD 02/27/2024 9:[address] [facility] Blood Venous blood specimen / Unknown Venipuncture / Unknown 02/27/2024 5:23 AM EST 02/27/2024 9:31 AM EST us Hunter Carvalho MD LAB BLOOD ORDERABLES Final Resul t [facility] [address] [place] [address], documented in this encounter Visit Diagnoses Diagnosis Essential (primary) hypertension Unspecified essential hypertension documented in this encounter Care Teams Hospice Entrance Attendant Relationship Specialty Start Date End Date Jackelyn Jansen DO [address] [place] [address] PCP - General 12/13/23 documented as of this encounter
--- OUTSIDE RECORDS SUMMARY | 2024-06-04 14:56 | XMS_ITS | Encounter Summary ---
Author Organization [facility] Address [address] [place] [address] Care Team Providers Care Project Safety Manager Name Role Phone Jackelyn Jansen DO Primary Care Provider [phone] Encounter Details Date Type Department Care Team (Late st Contact Info) Description 04/01/2024 Lab Requisition [facility] - Main Lab [address] [facility] [place] [phone] Hunter Carvalho MD [address] [place] [address] Essential (primary) hypertension Social History Tobacco Use [...] of Assessment Author Yes 02/11/2024 6:53 PM Masden RN * Do you have serious difficulty [...] hypertension documented in this encounter Care Teams Project Safety Manager Relationship Specialty Start Date End Date Jackelyn Jansen DO [address] [place] [id number] PCP - General 12/13/23 documented as of this encounter
--- OUTSIDE RECORDS SUMMARY | 2024-06-04 14:56 | XMS_ITS | Encounter Summary ---
Author Organization [facility] Address [address] [place] [address] Care Team Providers Care Bottom Man Name Role Phone Jackelyn Jansen DO Primary Care Provider [phone] Encounter Details Date Type Department Care Team (Late st Contact Info) Description 03/18/2024 Lab Requisition [facility] - Main Lab [address] [facility] [place] [phone] Hunter Carvalho MD [address] [place] [address] Essential (primary) hypertension Social History Tobacco Use [...] hypertension documented in this encounter Care Teams Bottom Man Relationship Specialty Start Date End Date Jackelyn Jansen DO [address] [place] [id number] PCP - General 12/13/23 documented as of this encounter
--- OUTSIDE RECORDS SUMMARY | 2024-06-04 14:56 | XMS_ITS | Encounter Summary ---
Author Organization [facility] Address [address] [place] [address] Care Team Providers Care Harness Placer Name Role Phone Jackelyn Jansen DO Primary Care Provider [phone] Encounter Details Date Type Department Care Team (Late st Contact Info) Description 03/04/2024 Lab Requisition [facility] - Main Lab [address] [facility] [place] [phone] Hunter Carvalho MD [address] [place] [address] Essential (primary) hypertension Social History Tobacco Use [...] hypertension documented in this encounter Care Teams Harness Placer Relationship Specialty Start Date End Date Jackelyn Jansen DO [address] [place] [address] PCP - General 12/13/23 documented as of this encounter
--- OUTSIDE RECORDS SUMMARY | 2024-06-04 14:56 | XMS_ITS | Encounter Summary ---
Author Organization [facility] Address [address] [place] [address] Care Team Providers Care Cyber Defense Incident Responder Name Role Phone Jackelyn Jansen DO Primary Care Provider [phone] Encounter Details Date Type Department Care Team (Late st Contact Info) Description 03/25/2024 Lab Requisition [facility] - Main Lab 299 [facility] [place] [phone] Hunter Carvalho MD [address] [place] [address] Essential (primary) hypertension Social History Tobacco Use [...] hypertension documented in this encounter Care Teams Cyber Defense Incident Responder Relationship Specialty Start Date End Date Jackelyn Jansen DO [address] [place] [phone] PCP - General 12/13/23 documented as of this encounter
--- OUTSIDE RECORDS SUMMARY | 2024-06-04 14:56 | XMS_ITS | Encounter Summary ---
Author Organization [facility] Address [address] [place] [address] Care Team Providers Care Tax Record Clerk Name Role Phone Jackelyn Jansen Primary Care Provider [phone] Encounter Details Date Type Department Care Team (Late st Contact Info) Description 03/02/2024 Lab Requisition [facility] - Main Lab 299 [facility] [place] [phone] Hunter Carvalho MD [address] [place] [address] Traumatic subdural hemorrhage with loss of consciousness [...] acid level, total (03/02/2024 5:13 AM EST) [facility] Valproic Acid, Total 50 50 - 100 mcg/mL LAB CHEMISTRY METHOD 03/02/2024 12:55 PM EST [facility] Blood Venous blood specimen / Unknown Venipuncture / Unknown 03/02/2024 5:13 AM EST 03/02/2024 10:55 AM EST Hunter Carvalho MD LAB BLOOD ORDERABLES Final Resul t [facility] LAB [address] [place] [address], [place] [phone] * (ABNORMAL) Comprehensive metabolic panel (03/02/2024 5:13 AM EST) Sodium 139 133 - 145 mmol/L LAB CHEMISTRY METHOD 03/02/2024 12:59 PM [facility] Potassium 4.1 3.5 - 5.5 mmol/L LAB CHEMISTRY METHOD 03/02/2024 12:59 PM [facility] Chloride 105 96 - 110 mmol/L LAB CHEMISTRY METHOD 03/02/2024 12:59 PM [facility] CO2 26 21 - 32 mmol/L LAB CHEMISTRY METHOD 03/02/2024 12:59 PM [facility] Anion Gap 8 3 - 11 LAB CHEMISTRY METHOD 03/02/2024 12:59 PM [facility] Glucose 65(L) 70 - 100 mg/dL LAB CHEMISTRY METHOD 03/02/2024 12:59 PM [facility] BUN 20 5 - 25 mg/dL LAB CHEMISTRY METHOD 03/02/2024 12:59 PM [facility] Creatinine 0.94 0.50 - 1.10 mg/dL LAB CHEMISTRY METHOD 03/02/2024 12:59 PM [facility] eGFR 62 >=60 mL/min/1. 73m2 LAB CHEMISTRY METHOD 03/02/2024 12:59 PM [facility] Comment:Calculation based on the??Chronic Kidney Disease Epidemiology Collaboration (CKD-EPI) equation refit??without adjustment for race. BUN/Creatinine Ratio 21.3 LAB CHEMISTRY METHOD 03/02/2024 12:59 PM [facility] Calcium 8.4(L) 8.5 - 10.5 mg/dL LAB CHEMISTRY METHOD 03/02/2024 12:59 PM [facility] AST (SGOT) 16 10 - 42 unit/L LAB CHEMISTRY METHOD 03/02/2024 12:59 PM [facility] ALT (SGPT) 20 10 - 60 unit/L LAB CHEMISTRY METHOD 03/02/2024 12:59 PM [facility] Alkaline Phosphatase 110 42 - 121 unit/L LAB CHEMISTRY METHOD 03/02/2024 12:59 PM [facility] Total Protein 5.2(L) 6.0 - 8.0 g/dL LAB CHEMISTRY METHOD 03/02/2024 12:59 PM [facility] Albumin 2.7(L) 3.2 - 5.0 g/dL LAB CHEMISTRY METHOD 03/02/2024 12:59 PM [facility] Total Bilirubin 0.6 0.0 - 1.4 mg/dL LAB CHEMISTRY METHOD 03/02/2024 12:59 PM [facility] Blood Venous blood specimen / Unknown Venipuncture / Unknown 03/02/2024 5:13 AM EST 03/02/2024 10:55 AM EST us Hunter Carvalho MD LAB BLOOD ORDERABLES Final Resul t [facility] [address] [place] [address], * (ABNORMAL) Complete blood count (03/02/2024 5:13 AM EST) WBC 6.3 4.8 - 10.8 K/mcL LAB HEMETOLOGY METHOD 03/02/2024 1:09 PM [facility] RBC 3.50(L) 3.80 - 4.80 M/mcL LAB HEMETOLOGY METHOD 03/02/2024 1:09 PM [facility] Hemoglobin 10.5(L) 11.5 - 16.0 g/dL LAB HEMETOLOGY METHOD 03/02/2024 1:09 PM [facility] Hematocrit 33.4(L) 35.0 - 47.0 % LAB HEMETOLOGY METHOD 03/02/2024 1:09 PM [facility] MCV 95.7 79.0 - 98.0 FL LAB HEMETOLOGY METHOD 03/02/2024 1:09 PM [facility] MCH 30.1 27.0 - 32.0 pcg LAB HEMETOLOGY METHOD 03/02/2024 1:09 PM [facility] MCHC 31.4(L) 32.0 - 37.0 g/dL LAB HEMETOLOGY METHOD 03/02/2024 1:09 PM [facility] RDW 16.4(H) 11.0 - 15.0 % LAB HEMETOLOGY METHOD 03/02/2024 1:09 PM [facility] Platelets 132 130 - 400 K/mcL LAB HEMETOLOGY METHOD 03/02/2024 1:09 PM [facility] MPV 12.6(H) 7.0 - 11.0 FL LAB HEMETOLOGY METHOD 03/02/2024 1:09 PM [facility] NRBC 0.0 <1.0 % LAB HEMETOLOGY METHOD 03/02/2024 1:09 PM [facility] NRBC Absolute 0.00 <0.10 K/mcL LAB HEMETOLOGY METHOD 03/02/2024 1:09 PM [facility] Blood Venous blood specimen / Unknown Venipuncture / Unknown 03/02/2024 5:13 AM EST 03/02/2024 10:55 AM EST Hunter Carvalho MD LAB BLOOD ORDERABLES Final Resul t [facility] LAB [address] [place] [address], documented in this encounter Visit Diagnoses Diagnosis Traumatic subdural hemorrhage with loss of consciousness status unknown, subsequent encounter Encounter for therapeutic drug level monitoring Hyperlipidemia, unspecified documented in this encounter Care Teams Tax Record Clerk Relationship Specialty Start Date End Date Jackelyn Jansen DO [facility] [place] [address] PCP - General 12/13/23 documented as of this encounter
[2024-06-04] MEDS: Divalproex Sodium Sprinkles 125 MG CAP.DR.SPR 250 MG PO ×2 (15:12→20:30)
--- NOTE | 2024-06-04 16:50 | PC.NURSE ---
Jeannie was readmitted from [facility]. She returned with her belongings and is on a 1:1 for safety. Ambulating with a walker. Orders are in and no medication changes were made. Skin was WNL when skin check was completed. Jeannie is confused at baseline. Pleasant and out in the milieu. Jeannie is taking medications and her appetite is good. Unable to complete paperwork social work is going to reach out to her daughter tomorrow who is her HCP. Currently on a 12B. Jeannie is verbalizing her desire to return home.
[2024-06-04 20:00] VITALS: BP 135/90; PULSE 96; RESP 16; TEMP 36.4; O2SAT 96
[2024-06-04] MEDS: Donepezil HCl 5 MG TABLET PO (20:30)
[2024-06-04] MEDS: OLANZapine 2.5 MG TABLET PO (20:30)
[2024-06-04] MEDS: timoloL maleate 0.5 % Oph Sol 5 ML DRBTL 1 DROP EYE-BOTH (20:30)
[2024-06-05] MEDS: Levothyroxine Sodium 75 MCG TABLET PO (06:01)
[2024-06-05] MEDS: Omeprazole 20 MG CAPSULE.DR PO (06:01)
[2024-06-05 07:52] LABS: Estimated Average Glucose 111 mg/dL; Hemoglobin A1c % 5.5 % (<6.0)
[2024-06-05 08:00] VITALS: BP 126/55; PULSE 96; RESP 18; TEMP 36; O2SAT 97
[2024-06-05] MEDS: Divalproex Sodium Sprinkles 125 MG CAP.DR.SPR 250 MG PO ×3 (09:39→20:33)
[2024-06-05] MEDS: timoloL maleate 0.5 % Oph Sol 5 ML DRBTL 1 DROP EYE-BOTH ×2 (09:39→20:33)
[2024-06-05] MEDS: oxyBUTYnin chloride ER 5 MG TAB.ER.24 15 MG PO (09:39)
[2024-06-05] MEDS: Cholecalciferol (Vitamin D3) 25 MCG TABLET 50 MCG PO (09:40)
[2024-06-05] MEDS: OLANZapine 2.5 MG TABLET PO ×2 (09:40→20:33)
--- NOTE | 2024-06-05 10:20 | HO.PSYADMNOT ---
HPI Date of Service: 06/05/24 Chief Complaint: Combative Behaviors Sources of Information: patient interviewed, chart reviewed and crisis/core team assessment reviewed HPI Subjective Notes: Conditional Voluntary (signed by HCP) Narrative: Mrs. Mascorro is an 79 year-old woman with hx of dementia who initially was admitted to [facility] on 03/05/2024 for management of combative and impulsive behaviors due to dementia. She was stabilized on depakote 250mg po TID, olanzapine 2.5mg po BID. She was transferred to medical floor on 06/02/2024 for possible stroke versus TIA with a NIH score of 1. During hospital stay on medicine she had head CT and head/neck CTA which was negative for ischemia and large vessel occlussion respectively. She did not show focal changes nor changes in mentation. She was seen by neurology who had recommended MRI but this was not completed as patient was not able to cooperate. Unclear why medication was not offered as pt has invoked HCP. Other pertinent labs completed include cbc with normocytic anemia which is chronic and stable H&H. CMP without electrolyte abnormalities, BUN 16, Cr 1.1. On the unit, pt ambulating with walker. She is smiling. She does ask about going home. She denies any physical concerns. She also asks this junior copywriter if I can give her a beer. She is not oriented to place, month year nor situation and this is her baseline. Her thought content is with poverty of thought. Past Psychiatric History: Inpt: none in the past Medical Evaluation Reviewed: Yes [facility] Medical History Dementia H/O: hypothyroidism Glaucoma Diagnostics Vital Signs (24Hr): Vital Signs - 24 hr 06/04/24 20:00 Temperature 97.6 F Pulse Rate 96 Respiratory Rate 16 Blood Pressure 135/90 H Pulse Oximetry 96 Oxygen Delivery Method Room Air Labs 06/04/24 13:23 Labs: Laboratory Results - last 48 hr 06/04/24 06/05/24 13:23 07:29 Sodium 135 Potassium 4.1 Chloride 101 Carbon Dioxide 25 Anion Gap 13 BUN 18 H Creatinine 1.00 Estim Creat Clear Calc TNP Estimated GFR 53 Random Glucose 123 H Estimat Average Glucose 111 Hemoglobin A1c % 5.5 Calcium 8.9 Total Bilirubin 0.5 AST 23 ALT 15 Alkaline Phosphatase 103 Total Protein 6.5 Albumin 3.6 Meds/Allergies Meds Home Medications ?Medication ?Instructions ?Recorded ?Confirmed ?Type cholecalciferol (vitamin D3) 50 50 mcg PO DAILY 03/04/24 06/02/24 History mcg (2,000 unit) tablet (Vitamin D3) fluticasone propionate 50 2 spray intranasal DAILY 03/04/24 06/02/24 History mcg/actuation nasal spray,suspension timolol maleate 0.5 % eye drops 1 drp ophthalmic (eye) DAILY 03/04/24 03/04/24 History aspirin 81 mg tablet,delayed 81 mg PO DAILY 06/02/24 History release divalproex 250 mg tablet,extended 250 mg PO BID 06/02/24 History release 24 hr Allergies Allergies Allergy/AdvReac Type Severity Reaction Status Date / Time sulfamethoxazole Allergy Unknown Verified 03/03/24 14:32 [From Sulfamethoxazole-Trimethoprim] trimethoprim Allergy Unknown Verified 03/03/24 14:32 [From Sulfamethoxazole-Trimethoprim] Mental Status Exam Mental Status Exam Narrative: Appearance: casually groomed ambulating with walker. Behavior: calm Psychomotor: no agitation or retardation noted Speech: mumbles, regular high pitch tone, spontaneous TP: concrete TC: wanting to go home ongoing Mood:ok Affect:calm, congruent SI: none HI: none VH/AH: no overt signs Delusions: none noted Insight/judgment: impaired x 2 Memory/cog: alert, not oriented to place, month or year nor situation. severe impairment in memory and cognition. 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 Macsorro is an 79 year-old woman with hx of dementia, advanced stages. She was initially admitted to S[facility] for management of combative and impulsive behaviors secondary to dementia. She was stabilized on combination of depakote, olanzapine. She had episode of brief change in mental status. No VS abnormalities. She was transferred to medical floor for work up of TIA vs stroke, which was negative. Pt transferred back to continue medication management and stabilization and placement. PLAN 1. Admit to S1, CV by HCP, one to one due to fall risk. 2. continue depakote 250mg po TID, olanzapine 2.5mg po BID. 3. aftercare planning. Patient educated on: diagnosis and medication risk/benefits Reason for continued inpatient stay Substantial Risk for: inability to function Statement Statement: I have reviewed the history and physical and performed a pertinent examination on my patient. No changes have occurred unless specified. If the History and Physical was not performed prior to admission, the Hospitalist's service will be consulted for completing the admission physical. Time Spent With Patient Time: Total time managing care of this patient today ____ minutes.
[2024-06-05 13:28] VITALS: BMI 19.6
[2024-06-05] MEDS: Fluticasone Propionate Nasal 16 GM SPRAY 2 SPRAY NOSTRIL-B (14:51)
[2024-06-05 20:00] VITALS: BP 138/68; PULSE 72; RESP 16; TEMP 36.4; O2SAT 93
[2024-06-05] MEDS: Atorvastatin Calcium 20 MG TABLET PO (20:33)
[2024-06-05] MEDS: Donepezil HCl 5 MG TABLET PO (20:33)
[2024-06-06] MEDS: Levothyroxine Sodium 75 MCG TABLET PO (05:46)
[2024-06-06] MEDS: Omeprazole 20 MG CAPSULE.DR PO (05:46)
[2024-06-06 08:00] VITALS: BP 129/65; PULSE 75; RESP 16; TEMP 36.8; O2SAT 97
[2024-06-06] MEDS: OLANZapine 2.5 MG TABLET PO ×2 (10:10→20:07)
[2024-06-06] MEDS: Cholecalciferol (Vitamin D3) 25 MCG TABLET 50 MCG PO (10:10)
[2024-06-06] MEDS: oxyBUTYnin chloride ER 5 MG TAB.ER.24 15 MG PO (10:10)
[2024-06-06] MEDS: Divalproex Sodium Sprinkles 125 MG CAP.DR.SPR 250 MG PO ×3 (10:11→20:07)
[2024-06-06] MEDS: timoloL maleate 0.5 % Oph Sol 5 ML DRBTL 1 DROP EYE-BOTH ×2 (10:38→20:07)
[2024-06-06] MEDS: Fluticasone Propionate Nasal 16 GM SPRAY 2 SPRAY NOSTRIL-B (10:38)
[2024-06-06] MEDS: Acetaminophen 325 MG TABLET 650 MG PO (15:46)
--- NOTE | 2024-06-06 16:27 | HO.PSYCHPN ---
Subjective Subjective Date of Service: 06/06/24 Reason For Visit: Combative Behaviors Interim History: not much to say. on being asked how she is doing, replies, well enough to go home. requires a lot of support from staff for standing and ambulating. per staff, eating and taking meds. doing well overall. Mental Status Exam Mental Status Exam Narrative: Appearance: casually groomed ambulating with walker. Behavior: calm Psychomotor: no agitation or retardation noted Speech: mumbles, regular high pitch tone, spontaneous TP: concrete TC: wanting to go home ongoing Mood:ok Affect:calm, congruent SI: none HI: none VH/AH: no overt signs Delusions: none noted Insight/judgment: impaired x 2 Memory/cog: alert, not oriented to place, month or year nor situation. severe impairment in memory and cognition. Diagnostics Vital Signs (24Hr): Vital Signs - 24 hr 06/05/24 20:00 06/06/24 08:00 Temperature 97.6 F 98.2 F Pulse Rate 72 75 Respiratory Rate 16 16 Blood Pressure 138/68 129/65 Pulse Oximetry 93 97 Oxygen Delivery Method Room Air Room Air BMI result Body Mass Index 19.6 Labs 06/04/24 13:23 Labs: Laboratory Results - last 48 hr 06/05/24 07:29 Estimat Average Glucose 111 Hemoglobin A1c % 5.5 Medications Medications Current Medications Acetaminophen (Acetaminophen 325 Mg Tablet) 650 mg PO Q6H PRN PRN Reason: Headache/Pain, Scale 1-10 Last Admin: 06/06/24 15:46 Dose: 650 mg Al Hydroxide/Mg Hydroxide (Magnesium Hydrox/Alum Hydrox 30 Ml Oral.Susp) 30 ml PO Q6H PRN PRN Reason: Heartburn/Nausea Atorvastatin Calcium (Atorvastatin Calcium 20 Mg Tablet) 20 mg PO BEDTIME [facility] Last Admin: 06/05/24 20:33 Dose: 20 mg Divalproex Sodium (Divalproex Sodium Sprinkles 125 Mg ) 250 mg PO TID [facility] Last Admin: 06/06/24 15:39 Dose: 250 mg Donepezil HCl (Donepezil Hcl 5 Mg Tablet) 5 mg PO BEDTIME [facility] Last Admin: 06/05/24 20:33 Dose: 5 mg Fluticasone Propionate (Fluticasone Propionate Nasal 16 Gm [place]) 2 spray NOSTRIL-B DAILY [facility] Last Admin: 06/06/24 10:38 Dose: 2 spray Levothyroxine Sodium (Levothyroxine Sodium 75 Mcg Tablet) 75 mcg PO DAILY@0600 [facility] Last Admin: 06/06/24 05:46 Dose: 75 mcg Magnesium Hydroxide (Milk Of Magnesia 30 Ml Oral.Susp) 30 ml PO DAILY PRN PRN Reason: Constipation Olanzapine (Olanzapine 2.5 Mg Tablet) 2.5 mg PO BID [facility] Last Admin: 06/06/24 10:10 Dose: 2.5 mg Omeprazole (Omeprazole 20 Mg Capsule.Dr) 20 mg PO DAILY@0630 [facility] Last Admin: 06/06/24 05:46 Dose: 20 mg Oxybutynin Chloride (Oxybutynin Chloride Er 5 Mg Tab.Er.24) 15 mg PO DAILY [facility] Last Admin: 06/06/24 10:10 Dose: 15 mg Timolol Maleate (Timolol Maleate 0.5 % Oph Peg 5 Ml Drbtl) 1 drop EYE-BOTH BID [facility] Last Admin: 06/06/24 10:38 Dose: 1 drop Trazodone HCl (Trazodone Hcl 50 Mg Tablet) 50 mg PO BEDTIME MRX1 PRN PRN Reason: Insomnia Vitamin D (Cholecalciferol (Vitamin D3) 25 Mcg Tablet) 50 mcg PO DAILY [facility] Last Admin: 06/06/24 10:10 Dose: 50 mcg Allergies Allergies Allergy/AdvReac Type Severity Reaction Status Date / Time sulfamethoxazole Allergy Unknown Verified 03/03/24 14:32 [From Sulfamethoxazole-Trimethoprim] trimethoprim Allergy Unknown Verified 03/03/24 14:32 [From Sulfamethoxazole-Trimethoprim] Assessment & Plan Assessment & Plan (1) 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 Mascorro is an 79 year-old woman with hx of dementia, advanced stages. She was initially admitted to for management of combative and impulsive behaviors secondary to dementia. She was stabilized on combination of depakote, olanzapine. She had episode of brief change in mental status. No VS abnormalities. She was transferred to medical floor for work up of TIA vs stroke, which was negative. Pt transferred back to continue medication management and stabilization and placement. PLAN 1. Admit to S1, CV by HCP, one to one due to fall risk. 2. continue depakote 250mg po TID, olanzapine 2.5mg po BID. 3. aftercare planning. Reason for continued inpatient stay Substantial Risk for: inability to function Time Spent With Patient Time: Total time managing care of this patient today ____ minutes.
[2024-06-06 20:00] VITALS: BP 123/92; PULSE 82; RESP 16; TEMP 36.6; O2SAT 97
[2024-06-06] MEDS: Donepezil HCl 5 MG TABLET PO (20:07)
[2024-06-06] MEDS: Atorvastatin Calcium 20 MG TABLET PO (20:07)
[2024-06-07] MEDS: Levothyroxine Sodium 75 MCG TABLET PO (06:18)
[2024-06-07] MEDS: Omeprazole 20 MG CAPSULE.DR PO (06:18)
[2024-06-07 08:00] VITALS: BP 125/90; PULSE 76; TEMP 36.4; O2SAT 97
[2024-06-07] MEDS: Cholecalciferol (Vitamin D3) 25 MCG TABLET 50 MCG PO (08:20)
[2024-06-07] MEDS: oxyBUTYnin chloride ER 5 MG TAB.ER.24 15 MG PO (08:20)
[2024-06-07] MEDS: OLANZapine 2.5 MG TABLET PO ×2 (08:21→20:19)
[2024-06-07] MEDS: Divalproex Sodium Sprinkles 125 MG CAP.DR.SPR 250 MG PO ×3 (08:21→20:19)
[2024-06-07] MEDS: Fluticasone Propionate Nasal 16 GM SPRAY 2 SPRAY NOSTRIL-B (08:24)
[2024-06-07] MEDS: timoloL maleate 0.5 % Oph Sol 5 ML DRBTL 1 DROP EYE-BOTH ×2 (08:24→20:19)
[2024-06-07 20:00] VITALS: BP 106/52; PULSE 75; RESP 16; TEMP 36.3; O2SAT 96
--- NOTE | 2024-06-07 20:18 | HO.PSYCHPN ---
Subjective Subjective Date of Service: 06/07/24 Reason For Visit: Combative Behaviors Interim History: states she wants to go home. no other requests or complaints. per staff, pleasant, wandering. no change in presentation. Mental Status Exam Mental Status Exam Narrative: Appearance: casually groomed ambulating with walker. Behavior: calm Psychomotor: no agitation or retardation noted Speech: mumbles, regular high pitch tone, spontaneous TP: concrete TC: wanting to go home Mood:ok Affect:calm, congruent SI: none HI: none VH/AH: no overt signs Delusions: none noted Insight/judgment: impaired x 2 Memory/cog: alert, not oriented to place, month or year nor situation. severe impairment in memory and cognition. Diagnostics Vital Signs (24Hr): Vital Signs - 24 hr 06/07/24 08:00 Temperature 97.6 F Pulse Rate 76 Blood Pressure 125/90 H Pulse Oximetry 97 Oxygen Delivery Method Room Air BMI result Body Mass Index 19.6 Labs 06/04/24 13:23 Medications Medications Current Medications Acetaminophen (Acetaminophen 325 Mg Tablet) 650 mg PO Q6H PRN PRN Reason: Headache/Pain, Scale 1-10 Last Admin: 06/06/24 15:46 Dose: 650 mg Al Hydroxide/Mg Hydroxide (Magnesium Hydrox/Alum Hydrox 30 Ml Oral.Susp) 30 ml PO Q6H PRN PRN Reason: Heartburn/Nausea Atorvastatin Calcium (Atorvastatin Calcium 20 Mg Tablet) 20 mg PO BEDTIME [facility] Last Admin: 06/06/24 20:07 Dose: 20 mg Divalproex Sodium (Divalproex Sodium Sprinkclark 125 Mg ) 250 mg PO TID [facility] Last Admin: 06/07/24 14:02 Dose: 250 mg Donepezil HCl (Donepezil Hcl 5 Mg Tablet) 5 mg PO BEDTIME [facility] Last Admin: 06/06/24 20:07 Dose: 5 mg Fluticasone Propionate (Fluticasone Propionate Nasal 16 Gm [place]) 2 spray NOSTRIL-B DAILY [facility] Last Admin: 06/07/24 08:24 Dose: 2 spray Levothyroxine Sodium (Levothyroxine Sodium 75 Mcg Tablet) 75 mcg PO DAILY@0600 [facility] Last Admin: 06/07/24 06:18 Dose: 75 mcg Magnesium Hydroxide (Milk Of Magnesia 30 Ml Oral.Susp) 30 ml PO DAILY PRN PRN Reason: Constipation Olanzapine (Olanzapine 2.5 Mg Tablet) 2.5 mg PO BID [facility] Last Admin: 06/07/24 08:21 Dose: 2.5 mg Omeprazole (Omeprazole 20 Mg Capsule.Dr) 20 mg PO DAILY@0630 [facility] Last Admin: 06/07/24 06:18 Dose: 20 mg Oxybutynin Chloride (Oxybutynin Chloride Er 5 Mg Tab.Er.24) 15 mg PO DAILY [facility] Last Admin: 06/07/24 08:20 Dose: 15 mg Timolol Maleate (Timolol Maleate 0.5 % Oph Peg 5 Ml Drbtl) 1 drop EYE-BOTH BID [facility] Last Admin: 06/07/24 08:24 Dose: 1 drop Trazodone HCl (Trazodone Hcl 50 Mg Tablet) 50 mg PO BEDTIME MRX1 PRN PRN Reason: Insomnia Vitamin D (Cholecalciferol (Vitamin D3) 25 Mcg Tablet) 50 mcg PO DAILY [facility] Last Admin: 06/07/24 08:20 Dose: 50 mcg Allergies Allergies Allergy/AdvReac Type Severity Reaction Status Date / Time sulfamethoxazole Allergy Unknown Verified 03/03/24 14:32 [From Sulfamethoxazole-Trimethoprim] trimethoprim Allergy Unknown Verified 03/03/24 14:32 [From Sulfamethoxazole-Trimethoprim] Assessment & Plan Assessment & Plan (1) 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 Mascorro is an 79 year-old woman with hx of dementia, advanced stages. She was initially admitted to for management of combative and impulsive behaviors secondary to dementia. She was stabilized on combination of depakote, olanzapine. She had episode of brief change in mental status. No VS abnormalities. She was transferred to medical floor for work up of TIA vs stroke, which was negative. Pt transferred back to continue medication management and stabilization and placement. PLAN 1. Admit to , CV by HCP, one to one due to fall risk. 2. continue depakote 250mg po TID, olanzapine 2.5mg po BID. 3. aftercare planning. Reason for continued inpatient stay Substantial Risk for: inability to function Time Spent With Patient Time: Total time managing care of this patient today ____ minutes.
[2024-06-07] MEDS: Atorvastatin Calcium 20 MG TABLET PO (20:19)
[2024-06-07] MEDS: Donepezil HCl 5 MG TABLET PO (20:19)
[2024-06-08] MEDS: Levothyroxine Sodium 75 MCG TABLET PO (05:29)
[2024-06-08] MEDS: Omeprazole 20 MG CAPSULE.DR PO (05:29)
[2024-06-08 07:55] VITALS: BP 147/72; PULSE 60; RESP 18; TEMP 36.6; O2SAT 97
--- NOTE | 2024-06-08 08:37 | P.PNPSI_ITS ---
Subjective Subjective Date of Service: 06/08/24 Reason For Visit: Combative Behaviors Subjective Notes: Conditional Voluntary Healthcare Proxy: Yes Interim History: Pt slept through the night. She is ambulating with walker, one to one due to fall risk. She reports doing well, states I hope I go home today. No behavioral concerns. VS stable. Mental Status Exam Mental Status Exam Narrative: Appearance: casually groomed ambulating with walker. Behavior: calm Psychomotor: no agitation or retardation noted Speech: mumbles, regular high pitch tone, spontaneous TP: concrete TC: wanting to go home Mood:ok Affect:calm, congruent SI: none HI: none VH/AH: no overt signs Delusions: none noted Insight/judgment: impaired x 2 Memory/cog: alert, not oriented to place, month or year nor situation. severe impairment in memory and cognition. Diagnostics Vital Signs (24Hr): Vital Signs - 24 hr 06/07/24 20:00 Temperature 97.4 F Pulse Rate 75 Respiratory Rate 16 Blood Pressure 106/52 L Pulse Oximetry 96 Oxygen Delivery Method Room Air BMI result Body Mass Index 19.6 Labs 06/04/24 13:23 Medications Medications Current Medications Acetaminophen (Acetaminophen 325 Mg Tablet) 650 mg PO Q6H PRN PRN Reason: Headache/Pain, Scale 1-10 Last Admin: 06/06/24 15:46 Dose: 650 mg Al Hydroxide/Mg Hydroxide (Magnesium Hydrox/Alum Hydrox 30 Ml Oral.Susp) 30 ml PO Q6H PRN PRN Reason: Heartburn/Nausea Atorvastatin Calcium (Atorvastatin Calcium 20 Mg Tablet) 20 mg PO BEDTIME [facility] Last Admin: 06/07/24 20:19 Dose: 20 mg Divalproex Sodium (Divalproex Sodium Sprinkclark 125 Mg ) 250 mg PO TID [facility] Last Admin: 06/07/24 20:19 Dose: 250 mg Donepezil HCl (Donepezil Hcl 5 Mg Tablet) 5 mg PO BEDTIME [facility] Last Admin: 06/07/24 20:19 Dose: 5 mg Fluticasone Propionate (Fluticasone Propionate Nasal 16 Gm [place]) 2 spray NOSTRIL-B DAILY [facility] Last Admin: 06/07/24 08:24 Dose: 2 spray Levothyroxine Sodium (Levothyroxine Sodium 75 Mcg Tablet) 75 mcg PO DAILY@0600 [facility] Last Admin: 06/08/24 05:29 Dose: 75 mcg Magnesium Hydroxide (Milk Of Magnesia 30 Ml Oral.Susp) 30 ml PO DAILY PRN PRN Reason: Constipation Olanzapine (Olanzapine 2.5 Mg Tablet) 2.5 mg PO BID [facility] Last Admin: 06/07/24 20:19 Dose: 2.5 mg Omeprazole (Omeprazole 20 Mg Capsule.Dr) 20 mg PO DAILY@0630 [facility] Last Admin: 06/08/24 05:29 Dose: 20 mg Oxybutynin Chloride (Oxybutynin Chloride Er 5 Mg Tab.Er.24) 15 mg PO DAILY [facility] Last Admin: 06/07/24 08:20 Dose: 15 mg Timolol Maleate (Timolol Maleate 0.5 % Oph Peg 5 Ml Drbtl) 1 drop EYE-BOTH BID [facility] Last Admin: 06/07/24 20:19 Dose: 1 drop Trazodone HCl (Trazodone Hcl 50 Mg Tablet) 50 mg PO BEDTIME MRX1 PRN PRN Reason: Insomnia Vitamin D (Cholecalciferol (Vitamin D3) 25 Mcg Tablet) 50 mcg PO DAILY [facility] Last Admin: 06/07/24 08:20 Dose: 50 mcg Allergies Allergies Allergy/AdvReac Type Severity Reaction Status Date / Time sulfamethoxazole Allergy Unknown Verified 03/03/24 14:32 [From Sulfamethoxazole-Trimethoprim] trimethoprim Allergy Unknown Verified 03/03/24 14:32 [From Sulfamethoxazole-Trimethoprim] Assessment & Plan Assessment & Plan (1) 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 Mascorro is an 79 year-old woman with hx of dementia, advanced stages. She was initially admitted to for management of combative and impulsive behaviors secondary to dementia. She was stabilized on combination of depakote, olanzapine. She had episode of brief change in mental status. No VS abnormalities. She was transferred to medical floor for work up of TIA vs stroke, which was negative. Pt transferred back to continue medication management and stabilization and placement. PLAN 1. Admit to , CV by HCP, one to one due to fall risk. 2. continue depakote 250mg po TID, olanzapine 2.5mg po BID. 3. aftercare planning. Reason for continued inpatient stay Substantial Risk for: inability to function Time Spent With Patient Time: Total time managing care of this patient today ____ minutes.
[2024-06-08] MEDS: Cholecalciferol (Vitamin D3) 25 MCG TABLET 50 MCG PO (08:38)
[2024-06-08] MEDS: OLANZapine 2.5 MG TABLET PO ×2 (08:38→20:54)
[2024-06-08] MEDS: Divalproex Sodium Sprinkles 125 MG CAP.DR.SPR 250 MG PO ×3 (08:38→20:54)
[2024-06-08] MEDS: oxyBUTYnin chloride ER 5 MG TAB.ER.24 15 MG PO (08:39)
[2024-06-08] MEDS: timoloL maleate 0.5 % Oph Sol 5 ML DRBTL 1 DROP EYE-BOTH ×2 (09:49→20:54)
[2024-06-08] MEDS: Acetaminophen 325 MG TABLET 650 MG PO (15:59)
[2024-06-08 20:00] VITALS: BP 132/80; PULSE 66; RESP 18; TEMP 36; O2SAT 97
[2024-06-08] MEDS: Atorvastatin Calcium 20 MG TABLET PO (20:54)
[2024-06-08] MEDS: traZODone HCL 50 MG TABLET PO (20:54)
[2024-06-08] MEDS: Donepezil HCl 5 MG TABLET PO (20:54)
[2024-06-09] MEDS: traZODone HCL 50 MG TABLET PO (01:22)
[2024-06-09] MEDS: Acetaminophen 325 MG TABLET 650 MG PO (01:22)
[2024-06-09 04:12] VITALS: BP 132/80; PULSE 66; RESP 18; TEMP 36
[2024-06-09] MEDS: Omeprazole 20 MG CAPSULE.DR PO (06:13)
[2024-06-09] MEDS: Levothyroxine Sodium 75 MCG TABLET PO (06:13)
[2024-06-09 07:55] VITALS: BP 166/74; PULSE 56; RESP 18; TEMP 36.4; O2SAT 97
[2024-06-09] MEDS: OLANZapine 2.5 MG TABLET PO ×2 (08:41→20:22)
[2024-06-09] MEDS: Cholecalciferol (Vitamin D3) 25 MCG TABLET 50 MCG PO (08:41)
[2024-06-09] MEDS: Divalproex Sodium Sprinkles 125 MG CAP.DR.SPR 250 MG PO ×3 (08:41→20:22)
[2024-06-09] MEDS: oxyBUTYnin chloride ER 5 MG TAB.ER.24 15 MG PO (08:41)
[2024-06-09] MEDS: Fluticasone Propionate Nasal 16 GM SPRAY 2 SPRAY NOSTRIL-B (08:43)
[2024-06-09] MEDS: timoloL maleate 0.5 % Oph Sol 5 ML DRBTL 1 DROP EYE-BOTH ×2 (08:43→20:29)
--- NOTE | 2024-06-09 11:33 | HO.PSYCHPN ---
Subjective Subjective Date of Service: 06/09/24 Reason For Visit: Combative Behaviors Subjective Notes: Conditional Voluntary Healthcare Proxy: Yes Interim History: Pt slept through the night. She is ambulating with walker, one to one due to fall risk. She reports doing well, states I hope I go home today. No behavioral concerns. VS stable. Mental Status Exam Mental Status Exam Narrative: Appearance: casually groomed ambulating with walker. Behavior: calm Psychomotor: no agitation or retardation noted Speech: mumbles, regular high pitch tone, spontaneous TP: concrete TC: wanting to go home Mood:ok Affect:calm, congruent SI: none HI: none VH/AH: no overt signs Delusions: none noted Insight/judgment: impaired x 2 Memory/cog: alert, not oriented to place, month or year nor situation. severe impairment in memory and cognition. Diagnostics Vital Signs (24Hr): Vital Signs - 24 hr 06/08/24 20:00 06/09/24 04:12 06/09/24 07:55 Temperature 96.8 F 96.8 F 97.6 F Pulse Rate 66 66 56 Respiratory Rate 18 18 18 Blood Pressure 132/80 132/80 166/74 H Pulse Oximetry 97 97 Oxygen Delivery Method Room Air Room Air BMI result Body Mass Index 19.6 Labs 06/04/24 13:23 Medications Medications Current Medications Acetaminophen (Acetaminophen 325 Mg Tablet) 650 mg PO Q6H PRN PRN Reason: Headache/Pain, Scale 1-10 Last Admin: 06/09/24 01:22 Dose: 650 mg Al Hydroxide/Mg Hydroxide (Magnesium Hydrox/Alum Hydrox 30 Ml Oral.Susp) 30 ml PO Q6H PRN PRN Reason: Heartburn/Nausea Atorvastatin Calcium (Atorvastatin Calcium 20 Mg Tablet) 20 mg PO BEDTIME [facility] Last Admin: 06/08/24 20:54 Dose: 20 mg Divalproex Sodium (Divalproex Sodium Sprinkles 125 Mg ) 250 mg PO TID [facility] Last Admin: 06/09/24 08:41 Dose: 250 mg Donepezil HCl (Donepezil Hcl 5 Mg Tablet) 5 mg PO BEDTIME [facility] Last Admin: 06/08/24 20:54 Dose: 5 mg Fluticasone Propionate (Fluticasone Propionate Nasal 16 Gm [place]) 2 spray NOSTRIL-B DAILY [facility] Last Admin: 06/09/24 08:43 Dose: 2 spray Levothyroxine Sodium (Levothyroxine Sodium 75 Mcg Tablet) 75 mcg PO DAILY@0600 [facility] Last Admin: 06/09/24 06:13 Dose: 75 mcg Magnesium Hydroxide (Milk Of Magnesia 30 Ml Oral.Susp) 30 ml PO DAILY PRN PRN Reason: Constipation Olanzapine (Olanzapine 2.5 Mg Tablet) 2.5 mg PO BID [facility] Last Admin: 06/09/24 08:41 Dose: 2.5 mg Omeprazole (Omeprazole 20 Mg Capsule.Dr) 20 mg PO DAILY@0630 [facility] Last Admin: 06/09/24 06:13 Dose: 20 mg Oxybutynin Chloride (Oxybutynin Chloride Er 5 Mg Tab.Er.24) 15 mg PO DAILY [facility] Last Admin: 06/09/24 08:41 Dose: 15 mg Timolol Maleate (Timolol Maleate 0.5 % Oph Peg 5 Ml Drbtl) 1 drop EYE-BOTH BID [facility] Last Admin: 06/09/24 08:43 Dose: 1 drop Trazodone HCl (Trazodone Hcl 50 Mg Tablet) 50 mg PO BEDTIME MRX1 PRN PRN Reason: Insomnia Last Admin: 06/09/24 01:22 Dose: 50 mg Vitamin D (Cholecalciferol (Vitamin D3) 25 Mcg Tablet) 50 mcg PO DAILY [facility] Last Admin: 06/09/24 08:41 Dose: 50 mcg Allergies Allergies Allergy/AdvReac Type Severity Reaction Status Date / Time sulfamethoxazole Allergy Unknown Verified 03/03/24 14:32 [From Sulfamethoxazole-Trimethoprim] trimethoprim Allergy Unknown Verified 03/03/24 14:32 [From Sulfamethoxazole-Trimethoprim] Assessment & Plan Assessment & Plan (1) 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 Mascorro is an 79 year-old woman with hx of dementia, advanced stages. She was initially admitted to for management of combative and impulsive behaviors secondary to dementia. She was stabilized on combination of depakote, olanzapine. She had episode of brief change in mental status. No VS abnormalities. She was transferred to medical floor for work up of TIA vs stroke, which was negative. Pt transferred back to continue medication management and stabilization and placement. PLAN 06/09 continue tx. awaiting placement. This credit underwriter completed [employer] for conservatorship on 06/08. HCP is affirmed. Reason for continued inpatient stay Substantial Risk for: inability to function Time Spent With Patient Time: Total time managing care of this patient today ____ minutes.
[2024-06-09 20:00] VITALS: BP 158/77; PULSE 69; RESP 18; TEMP 36.3; O2SAT 96
[2024-06-09] MEDS: Donepezil HCl 5 MG TABLET PO (20:22)
[2024-06-09] MEDS: Atorvastatin Calcium 20 MG TABLET PO (20:22)
[2024-06-10] MEDS: Acetaminophen 325 MG TABLET 650 MG PO (00:56)
[2024-06-10] MEDS: traZODone HCL 50 MG TABLET PO ×2 (00:57→21:14)
[2024-06-10] MEDS: Omeprazole 20 MG CAPSULE.DR PO (05:44)
[2024-06-10] MEDS: Levothyroxine Sodium 75 MCG TABLET PO (05:44)
[2024-06-10 08:00] VITALS: BP 141/80; PULSE 65; RESP 18; TEMP 36.7; O2SAT 99
[2024-06-10] MEDS: oxyBUTYnin chloride ER 5 MG TAB.ER.24 15 MG PO (09:06)
[2024-06-10] MEDS: timoloL maleate 0.5 % Oph Sol 5 ML DRBTL 1 DROP EYE-BOTH ×2 (09:06→21:17)
[2024-06-10] MEDS: Fluticasone Propionate Nasal 16 GM SPRAY 2 SPRAY NOSTRIL-B (09:06)
[2024-06-10] MEDS: Divalproex Sodium Sprinkles 125 MG CAP.DR.SPR 250 MG PO ×3 (09:07→21:14)
[2024-06-10] MEDS: Cholecalciferol (Vitamin D3) 25 MCG TABLET 50 MCG PO (09:07)
[2024-06-10] MEDS: OLANZapine 2.5 MG TABLET PO ×2 (09:07→21:15)
--- NOTE | 2024-06-10 16:37 | HO.PSYCHPN ---
Subjective Subjective Date of Service: 06/10/24 Reason For Visit: Combative Behaviors Subjective Notes: Conditional Voluntary Interim History: Pt slept through the night. She is ambulating with walker, one to one due to fall risk. She reports doing well, states I hope I go home today. No behavioral concerns. VS stable. Medication Compliance: Yes Mental Status Exam Mental Status Exam Narrative: Appearance: casually groomed ambulating with walker. Behavior: calm Psychomotor: no agitation or retardation noted Speech: mumbles, regular high pitch tone, spontaneous TP: concrete TC: wanting to go home Mood:ok Affect:calm, congruent SI: none HI: none VH/AH: no overt signs Delusions: none noted Insight/judgment: impaired x 2 Memory/cog: alert, not oriented to place, month or year nor situation. severe impairment in memory and cognition. Diagnostics Vital Signs (24Hr): Vital Signs - 24 hr 06/09/24 20:00 06/10/24 08:00 Temperature 97.3 F 98.0 F Pulse Rate 69 65 Respiratory Rate 18 18 Blood Pressure 158/77 H 141/80 H Pulse Oximetry 96 99 Oxygen Delivery Method Room Air Room Air BMI result Body Mass Index 19.6 Labs 06/04/24 13:23 Medications Medications Current Medications Acetaminophen (Acetaminophen 325 Mg Tablet) 650 mg PO Q6H PRN PRN Reason: Headache/Pain, Scale 1-10 Last Admin: 06/10/24 00:56 Dose: 650 mg Al Hydroxide/Mg Hydroxide (Magnesium Hydrox/Alum Hydrox 30 Ml Oral.Susp) 30 ml PO Q6H PRN PRN Reason: Heartburn/Nausea Atorvastatin Calcium (Atorvastatin Calcium 20 Mg Tablet) 20 mg PO BEDTIME [facility] Last Admin: 06/09/24 20:22 Dose: 20 mg Divalproex Sodium (Divalproex Sodium Sprinkles 125 Mg ) 250 mg PO TID [facility] Last Admin: 06/10/24 14:55 Dose: 250 mg Donepezil HCl (Donepezil Hcl 5 Mg Tablet) 5 mg PO BEDTIME [facility] Last Admin: 06/09/24 20:22 Dose: 5 mg Fluticasone Propionate (Fluticasone Propionate Nasal 16 Gm [place]) 2 spray NOSTRIL-B DAILY [facility] Last Admin: 06/10/24 09:06 Dose: 2 spray Levothyroxine Sodium (Levothyroxine Sodium 75 Mcg Tablet) 75 mcg PO DAILY@0600 [facility] Last Admin: 06/10/24 05:44 Dose: 75 mcg Magnesium Hydroxide (Milk Of Magnesia 30 Ml Oral.Susp) 30 ml PO DAILY PRN PRN Reason: Constipation Olanzapine (Olanzapine 2.5 Mg Tablet) 2.5 mg PO BID [facility] Last Admin: 06/10/24 09:07 Dose: 2.5 mg Omeprazole (Omeprazole 20 Mg Capsule.Dr) 20 mg PO DAILY@0630 [facility] Last Admin: 06/10/24 05:44 Dose: 20 mg Oxybutynin Chloride (Oxybutynin Chloride Er 5 Mg Tab.Er.24) 15 mg PO DAILY [facility] Last Admin: 06/10/24 09:06 Dose: 15 mg Timolol Maleate (Timolol Maleate 0.5 % Oph Peg 5 Ml Drbtl) 1 drop EYE-BOTH BID [facility] Last Admin: 06/10/24 09:06 Dose: 1 drop Trazodone HCl (Trazodone Hcl 50 Mg Tablet) 50 mg PO BEDTIME MRX1 PRN PRN Reason: Insomnia Last Admin: 06/10/24 00:57 Dose: 50 mg Vitamin D (Cholecalciferol (Vitamin D3) 25 Mcg Tablet) 50 mcg PO DAILY [facility] Last Admin: 06/10/24 09:07 Dose: 50 mcg Allergies Allergies Allergy/AdvReac Type Severity Reaction Status Date / Time sulfamethoxazole Allergy Unknown Verified 03/03/24 14:32 [From Sulfamethoxazole-Trimethoprim] trimethoprim Allergy Unknown Verified 03/03/24 14:32 [From Sulfamethoxazole-Trimethoprim] Assessment & Plan Assessment & Plan (1) 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 Mascorro is an 79 year-old woman with hx of dementia, advanced stages. She was initially admitted to for management of combative and impulsive behaviors secondary to dementia. She was stabilized on combination of depakote, olanzapine. She had episode of brief change in mental status. No VS abnormalities. She was transferred to medical floor for work up of TIA vs stroke, which was negative. Pt transferred back to continue medication management and stabilization and placement. PLAN 06/09 continue tx. awaiting placement. This machine sign writer completed med cert for conservatorship on 06/08. HCP is affirmed. 06/10 continue tx. Reason for continued inpatient stay Substantial Risk for: inability to function Time Spent With Patient Time: Total time managing care of this patient today ____ minutes.
[2024-06-10 20:00] VITALS: BP 138/66; PULSE 67; RESP 16; TEMP 36.2; O2SAT 96
[2024-06-10] MEDS: Donepezil HCl 5 MG TABLET PO (21:14)
[2024-06-10] MEDS: Atorvastatin Calcium 20 MG TABLET PO (21:15)
--- NOTE | 2024-06-11 | ECG_ITS ---
Test Reason : BTADYCARDIA Blood Pressure : */* mmHG Vent. Rate : 47 BPM Atrial Rate : 47 BPM P-R Int : 182 ms QRS Dur : 102 ms QT Int : 502 ms P-R-T Axes : 10 -44 -42 degrees QTcB Int : 444 ms Sinus bradycardia Left axis deviation Moderate voltage criteria for LVH, may be normal variant ( R in aVL , [place] product ) Anterior infarct (cited on or before 02-Jun-2024) Abnormal ECG When compared with ECG of 02-Jun-2024 06:38, T wave inversion more evident in Inferior leads Nonspecific T wave abnormality, worse in Anterior leads Referred By: Bee Bronson Electronically Signed By: DONG HENDERSON MD
[2024-06-11] MEDS: traZODone HCL 50 MG TABLET PO ×2 (00:27→21:27)
[2024-06-11] MEDS: Acetaminophen 325 MG TABLET 650 MG PO (00:27)
[2024-06-11] MEDS: Levothyroxine Sodium 75 MCG TABLET PO (06:06)
[2024-06-11] MEDS: Omeprazole 20 MG CAPSULE.DR PO (06:06)
[2024-06-11 08:36] VITALS: BP 137/61; PULSE 56; RESP 18; TEMP 36.4; O2SAT 98
[2024-06-11] MEDS: Fluticasone Propionate Nasal 16 GM SPRAY 2 SPRAY NOSTRIL-B (08:39)
[2024-06-11] MEDS: timoloL maleate 0.5 % Oph Sol 5 ML DRBTL 1 DROP EYE-BOTH ×2 (08:39→21:29)
[2024-06-11] MEDS: oxyBUTYnin chloride ER 5 MG TAB.ER.24 15 MG PO (08:40)
[2024-06-11] MEDS: Divalproex Sodium Sprinkles 125 MG CAP.DR.SPR 250 MG PO ×3 (08:40→21:27)
[2024-06-11] MEDS: OLANZapine 2.5 MG TABLET PO ×2 (08:41→21:28)
[2024-06-11] MEDS: Cholecalciferol (Vitamin D3) 25 MCG TABLET 50 MCG PO (08:41)
[2024-06-11 11:00] VITALS: BP 124/65; PULSE 47; RESP 18; TEMP 36.9; O2SAT 84
--- NOTE | 2024-06-11 11:02 | PC.NURSE ---
This process description writer was doing rounds and noticed a slightly blue tinge to the lower lip. VS taken and pulse was ranging from 48-61. O2 sat was ranging from 86%-96%. Provider notified via [employer] connect and [id number]. Awaiting further instruction.
--- NOTE | 2024-06-11 17:58 | HO.PSYCHPN ---
Subjective Subjective Date of Service: 06/11/24 Reason For Visit: Combative Behaviors Interim History: Pt slept through the night. She is ambulating with walker, one to one due to fall risk. She reports doing well, states I hope I go home today. No behavioral concerns. VS stable. Mental Status Exam Mental Status Exam Narrative: Appearance: casually groomed ambulating with walker. Behavior: calm Psychomotor: no agitation or retardation noted Speech: mumbles, regular high pitch tone, spontaneous TP: concrete TC: wanting to go home Mood:ok Affect:calm, congruent SI: none HI: none VH/AH: no overt signs Delusions: none noted Insight/judgment: impaired x 2 Memory/cog: alert, not oriented to place, month or year nor situation. severe impairment in memory and cognition. Diagnostics Vital Signs (24Hr): Vital Signs - 24 hr 06/10/24 20:00 06/11/24 08:36 06/11/24 11:00 Temperature 97.2 F 97.5 F 98.4 F Pulse Rate 67 56 47 L Respiratory Rate 16 18 18 Blood Pressure 138/66 137/61 124/65 Pulse Oximetry 96 98 84 L Oxygen Delivery Method Room Air Room Air Room Air BMI result Body Mass Index 19.6 Labs 06/04/24 13:23 Medications Medications Current Medications Acetaminophen (Acetaminophen 325 Mg Tablet) 650 mg PO Q6H PRN PRN Reason: Headache/Pain, Scale 1-10 Last Admin: 06/11/24 00:27 Dose: 650 mg Al Hydroxide/Mg Hydroxide (Magnesium Hydrox/Alum Hydrox 30 Ml Oral.Susp) 30 ml PO Q6H PRN PRN Reason: Heartburn/Nausea Atorvastatin Calcium (Atorvastatin Calcium 20 Mg Tablet) 20 mg PO BEDTIME [facility] Last Admin: 06/10/24 21:15 Dose: 20 mg Divalproex Sodium (Divalproex Sodium Sprinkles 125 Mg ) 250 mg PO TID [facility] Last Admin: 06/11/24 15:16 Dose: 250 mg Donepezil HCl (Donepezil Hcl 5 Mg Tablet) 5 mg PO BEDTIME [facility] Last Admin: 06/10/24 21:14 Dose: 5 mg Fluticasone Propionate (Fluticasone Propionate Nasal 16 Gm [place]) 2 spray NOSTRIL-B DAILY [facility] Last Admin: 06/11/24 08:39 Dose: 2 spray Levothyroxine Sodium (Levothyroxine Sodium 75 Mcg Tablet) 75 mcg PO DAILY@0600 [facility] Last Admin: 06/11/24 06:06 Dose: 75 mcg Magnesium Hydroxide (Milk Of Magnesia 30 Ml Oral.Susp) 30 ml PO DAILY PRN PRN Reason: Constipation Olanzapine (Olanzapine 2.5 Mg Tablet) 2.5 mg PO BID [facility] Last Admin: 06/11/24 08:41 Dose: 2.5 mg Omeprazole (Omeprazole 20 Mg Capsule.Dr) 20 mg PO DAILY@0630 [facility] Last Admin: 06/11/24 06:06 Dose: 20 mg Oxybutynin Chloride (Oxybutynin Chloride Er 5 Mg Tab.Er.24) 15 mg PO DAILY [facility] Last Admin: 06/11/24 08:40 Dose: 15 mg Timolol Maleate (Timolol Maleate 0.5 % Oph Peg 5 Ml Drbtl) 1 drop EYE-BOTH BID [facility] Last Admin: 06/11/24 08:39 Dose: 1 drop Trazodone HCl (Trazodone Hcl 50 Mg Tablet) 50 mg PO BEDTIME MRX1 PRN PRN Reason: Insomnia Last Admin: 06/11/24 00:27 Dose: 50 mg Vitamin D (Cholecalciferol (Vitamin D3) 25 Mcg Tablet) 50 mcg PO DAILY [facility] Last Admin: 06/11/24 08:41 Dose: 50 mcg Allergies Allergies Allergy/AdvReac Type Severity Reaction Status Date / Time sulfamethoxazole Allergy Unknown Verified 03/03/24 14:32 [From Sulfamethoxazole-Trimethoprim] trimethoprim Allergy Unknown Verified 03/03/24 14:32 [From Sulfamethoxazole-Trimethoprim] Assessment & Plan Assessment & Plan (1) 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 Mascorro is an 79 year-old woman with hx of dementia, advanced stages. She was initially admitted to for management of combative and impulsive behaviors secondary to dementia. She was stabilized on combination of depakote, olanzapine. She had episode of brief change in mental status. No VS abnormalities. She was transferred to medical floor for work up of TIA vs stroke, which was negative. Pt transferred back to continue medication management and stabilization and placement. PLAN 06/09 continue tx. awaiting placement. This flex o writer operator completed [employer] for conservatorship on 06/08. HCP is affirmed. 06/11 continue tx. Reason for continued inpatient stay Substantial Risk for: inability to function Time Spent With Patient Time: Total time managing care of this patient today ____ minutes.
[2024-06-11 20:00] VITALS: BP 132/63; PULSE 69; RESP 17; TEMP 36.4; O2SAT 96
[2024-06-11] MEDS: Donepezil HCl 5 MG TABLET PO (21:27)
[2024-06-11] MEDS: Atorvastatin Calcium 20 MG TABLET PO (21:28)
[2024-06-12] MEDS: Levothyroxine Sodium 75 MCG TABLET PO (06:16)
[2024-06-12] MEDS: Omeprazole 20 MG CAPSULE.DR PO (06:16)
[2024-06-12 08:00] VITALS: BP 145/86; PULSE 67; RESP 16; TEMP 36.6; O2SAT 94
[2024-06-12] MEDS: Cholecalciferol (Vitamin D3) 25 MCG TABLET 50 MCG PO (09:56)
[2024-06-12] MEDS: OLANZapine 2.5 MG TABLET PO ×2 (09:56→19:48)
[2024-06-12] MEDS: Divalproex Sodium Sprinkles 125 MG CAP.DR.SPR 250 MG PO ×3 (09:56→19:49)
[2024-06-12] MEDS: oxyBUTYnin chloride ER 5 MG TAB.ER.24 15 MG PO (09:56)
[2024-06-12] MEDS: timoloL maleate 0.5 % Oph Sol 5 ML DRBTL 1 DROP EYE-BOTH ×2 (10:04→20:20)
[2024-06-12] MEDS: Fluticasone Propionate Nasal 16 GM SPRAY 2 SPRAY NOSTRIL-B (10:04)
--- NOTE | 2024-06-12 17:24 | HO.PSYCHPN ---
Subjective Subjective Date of Service: 06/12/24 Reason For Visit: Combative Behaviors Subjective Notes: Conditional Voluntary Healthcare Proxy: Yes Interim History: Pt slept through the night. She states I want to go home no further interaction with senior technical writer as she continues ambulating with walker. No behavioral concerns. VS stable. taking medications as prescribed. Mental Status Exam Mental Status Exam Narrative: Appearance: casually groomed ambulating with walker. Behavior: calm Psychomotor: no agitation or retardation noted Speech: mumbles, regular high pitch tone, spontaneous TP: concrete TC: wanting to go home Mood:ok Affect:calm, congruent SI: none HI: none VH/AH: no overt signs Delusions: none noted Insight/judgment: impaired x 2 Memory/cog: alert, not oriented to place, month or year nor situation. severe impairment in memory and cognition. Diagnostics Vital Signs (24Hr): Vital Signs - 24 hr 06/11/24 20:00 06/12/24 08:00 Temperature 97.5 F 97.9 F Pulse Rate 69 67 Respiratory Rate 17 16 Blood Pressure 132/63 145/86 H Pulse Oximetry 96 94 Oxygen Delivery Method Room Air Room Air BMI result Body Mass Index 19.6 Labs 06/04/24 13:23 Medications Medications Current Medications Acetaminophen (Acetaminophen 325 Mg Tablet) 650 mg PO Q6H PRN PRN Reason: Headache/Pain, Scale 1-10 Last Admin: 06/11/24 00:27 Dose: 650 mg Al Hydroxide/Mg Hydroxide (Magnesium Hydrox/Alum Hydrox 30 Ml Oral.Susp) 30 ml PO Q6H PRN PRN Reason: Heartburn/Nausea Atorvastatin Calcium (Atorvastatin Calcium 20 Mg Tablet) 20 mg PO BEDTIME [facility] Last Admin: 06/11/24 21:28 Dose: 20 mg Divalproex Sodium (Divalproex Sodium Sprinkles 125 Mg ) 250 mg PO TID [facility] Last Admin: 06/12/24 09:56 Dose: 250 mg Donepezil HCl (Donepezil Hcl 5 Mg Tablet) 5 mg PO BEDTIME [facility] Last Admin: 06/11/24 21:27 Dose: 5 mg Fluticasone Propionate (Fluticasone Propionate Nasal 16 Gm [place]) 2 spray NOSTRIL-B DAILY [facility] Last Admin: 06/12/24 10:04 Dose: 2 spray Levothyroxine Sodium (Levothyroxine Sodium 75 Mcg Tablet) 75 mcg PO DAILY@0600 [facility] Last Admin: 06/12/24 06:16 Dose: 75 mcg Magnesium Hydroxide (Milk Of Magnesia 30 Ml Oral.Susp) 30 ml PO DAILY PRN PRN Reason: Constipation Olanzapine (Olanzapine 2.5 Mg Tablet) 2.5 mg PO BID [facility] Last Admin: 06/12/24 09:56 Dose: 2.5 mg Omeprazole (Omeprazole 20 Mg Capsule.Dr) 20 mg PO DAILY@0630 [facility] Last Admin: 06/12/24 06:16 Dose: 20 mg Oxybutynin Chloride (Oxybutynin Chloride Er 5 Mg Tab.Er.24) 15 mg PO DAILY [facility] Last Admin: 06/12/24 09:56 Dose: 15 mg Timolol Maleate (Timolol Maleate 0.5 % Oph Peg 5 Ml Drbtl) 1 drop EYE-BOTH BID [facility] Last Admin: 06/12/24 10:04 Dose: 1 drop Trazodone HCl (Trazodone Hcl 50 Mg Tablet) 50 mg PO BEDTIME MRX1 PRN PRN Reason: Insomnia Last Admin: 06/11/24 21:27 Dose: 50 mg Vitamin D (Cholecalciferol (Vitamin D3) 25 Mcg Tablet) 50 mcg PO DAILY [facility] Last Admin: 06/12/24 09:56 Dose: 50 mcg Allergies Allergies Allergy/AdvReac Type Severity Reaction Status Date / Time sulfamethoxazole Allergy Unknown Verified 03/03/24 14:32 [From Sulfamethoxazole-Trimethoprim] trimethoprim Allergy Unknown Verified 03/03/24 14:32 [From Sulfamethoxazole-Trimethoprim] Assessment & Plan Assessment & Plan (1) 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 Mascorro is an 79 year-old woman with hx of dementia, advanced stages. She was initially admitted to for management of combative and impulsive behaviors secondary to dementia. She was stabilized on combination of depakote, olanzapine. She had episode of brief change in mental status. No VS abnormalities. She was transferred to medical floor for work up of TIA vs stroke, which was negative. Pt transferred back to continue medication management and stabilization and placement. PLAN 06/09 continue tx. awaiting placement. This senior technical writer completed med cert for conservatorship on 06/08. HCP is affirmed. 06/12 continue tx. Reason for continued inpatient stay Substantial Risk for: inability to function Time Spent With Patient Time: Total time managing care of this patient today ____ minutes.
[2024-06-12 19:47] VITALS: BP 134/60; PULSE 68; RESP 16; TEMP 36.7; O2SAT 94
[2024-06-12] MEDS: Atorvastatin Calcium 20 MG TABLET PO (19:49)
[2024-06-12] MEDS: Donepezil HCl 5 MG TABLET PO (19:49)
[2024-06-12] MEDS: LORazepam 0.5 MG TABLET PO (23:51)
[2024-06-13] MEDS: Levothyroxine Sodium 75 MCG TABLET PO (05:05)
[2024-06-13] MEDS: Omeprazole 20 MG CAPSULE.DR PO (05:43)
[2024-06-13 08:00] VITALS: BP 131/77; PULSE 71; RESP 18; TEMP 36; O2SAT 100
[2024-06-13] MEDS: timoloL maleate 0.5 % Oph Sol 5 ML DRBTL 1 DROP EYE-BOTH ×2 (09:11→19:30)
[2024-06-13] MEDS: Fluticasone Propionate Nasal 16 GM SPRAY 2 SPRAY NOSTRIL-B (09:11)
[2024-06-13] MEDS: Divalproex Sodium Sprinkles 125 MG CAP.DR.SPR 250 MG PO ×3 (09:12→19:28)
[2024-06-13] MEDS: oxyBUTYnin chloride ER 5 MG TAB.ER.24 15 MG PO (09:12)
[2024-06-13] MEDS: OLANZapine 2.5 MG TABLET PO ×2 (09:12→19:28)
[2024-06-13] MEDS: Cholecalciferol (Vitamin D3) 25 MCG TABLET 50 MCG PO (09:12)
--- NOTE | 2024-06-13 18:29 | HO.PSYCHPN ---
Subjective Subjective Date of Service: 06/13/24 Reason For Visit: Combative Behaviors Subjective Notes: Conditional Voluntary Healthcare Proxy: Yes Interim History: Pt slept through the night. She states I want to go home no further interaction with typewriter repairer as she continues ambulating with walker. No behavioral concerns. VS stable. taking medications as prescribed. Mental Status Exam Mental Status Exam Narrative: Appearance: casually groomed ambulating with walker. Behavior: calm Psychomotor: no agitation or retardation noted Speech: mumbles, regular high pitch tone, spontaneous TP: concrete TC: wanting to go home Mood:ok Affect:calm, congruent SI: none HI: none VH/AH: no overt signs Delusions: none noted Insight/judgment: impaired x 2 Memory/cog: alert, not oriented to place, month or year nor situation. severe impairment in memory and cognition. Diagnostics Vital Signs (24Hr): Vital Signs - 24 hr 06/12/24 19:47 06/13/24 08:00 Temperature 98.1 F 96.8 F Pulse Rate 68 71 Respiratory Rate 16 18 Blood Pressure 134/60 131/77 Pulse Oximetry 94 100 Oxygen Delivery Method Room Air Room Air BMI result Body Mass Index 19.6 Labs 06/04/24 13:23 Medications Medications Current Medications Acetaminophen (Acetaminophen 325 Mg Tablet) 650 mg PO Q6H PRN PRN Reason: Headache/Pain, Scale 1-10 Last Admin: 06/11/24 00:27 Dose: 650 mg Al Hydroxide/Mg Hydroxide (Magnesium Hydrox/Alum Hydrox 30 Ml Oral.Susp) 30 ml PO Q6H PRN PRN Reason: Heartburn/Nausea Atorvastatin Calcium (Atorvastatin Calcium 20 Mg Tablet) 20 mg PO BEDTIME [facility] Last Admin: 06/12/24 19:49 Dose: 20 mg Divalproex Sodium (Divalproex Sodium Sprinkles 125 Mg ) 250 mg PO TID [facility] Last Admin: 06/13/24 15:21 Dose: 250 mg Donepezil HCl (Donepezil Hcl 5 Mg Tablet) 5 mg PO BEDTIME [facility] Last Admin: 06/12/24 19:49 Dose: 5 mg Fluticasone Propionate (Fluticasone Propionate Nasal 16 Gm [place]) 2 spray NOSTRIL-B DAILY [facility] Last Admin: 06/13/24 09:11 Dose: 2 spray Levothyroxine Sodium (Levothyroxine Sodium 75 Mcg Tablet) 75 mcg PO DAILY@0600 [facility] Last Admin: 06/13/24 05:05 Dose: 75 mcg Lorazepam (Lorazepam 0.5 Mg Tablet) 0.5 mg PO Q8H PRN PRN Reason: Anxiety Last Admin: 06/12/24 23:51 Dose: 0.5 mg Magnesium Hydroxide (Milk Of Magnesia 30 Ml Oral.Susp) 30 ml PO DAILY PRN PRN Reason: Constipation Olanzapine (Olanzapine 2.5 Mg Tablet) 2.5 mg PO BID [facility] Last Admin: 06/13/24 09:12 Dose: 2.5 mg Omeprazole (Omeprazole 20 Mg Capsule.Dr) 20 mg PO DAILY@0630 [facility] Last Admin: 06/13/24 05:43 Dose: 20 mg Oxybutynin Chloride (Oxybutynin Chloride Er 5 Mg Tab.Er.24) 15 mg PO DAILY [facility] Last Admin: 06/13/24 09:12 Dose: 15 mg Timolol Maleate (Timolol Maleate 0.5 % Oph Peg 5 Ml Drbtl) 1 drop EYE-BOTH BID [facility] Last Admin: 06/13/24 09:11 Dose: 1 drop Trazodone HCl (Trazodone Hcl 50 Mg Tablet) 50 mg PO BEDTIME MRX1 PRN PRN Reason: Insomnia Last Admin: 06/11/24 21:27 Dose: 50 mg Vitamin D (Cholecalciferol (Vitamin D3) 25 Mcg Tablet) 50 mcg PO DAILY [facility] Last Admin: 06/13/24 09:12 Dose: 50 mcg Allergies Allergies Allergy/AdvReac Type Severity Reaction Status Date / Time sulfamethoxazole Allergy Unknown Verified 03/03/24 14:32 [From Sulfamethoxazole-Trimethoprim] trimethoprim Allergy Unknown Verified 03/03/24 14:32 [From Sulfamethoxazole-Trimethoprim] Assessment & Plan Assessment & Plan (1) 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 Mascorro is an 79 year-old woman with hx of dementia, advanced stages. She was initially admitted to for management of combative and impulsive behaviors secondary to dementia. She was stabilized on combination of depakote, olanzapine. She had episode of brief change in mental status. No VS abnormalities. She was transferred to medical floor for work up of TIA vs stroke, which was negative. Pt transferred back to continue medication management and stabilization and placement. PLAN 06/09 continue tx. awaiting placement. This typewriter repairer completed [employer] for conservatorship on 06/08. HCP is affirmed. 06/13 continue tx. Reason for continued inpatient stay Substantial Risk for: inability to function Time Spent With Patient Time: Total time managing care of this patient today ____ minutes.
[2024-06-13 19:27] VITALS: BP 143/78; PULSE 94; RESP 16; TEMP 36.3; O2SAT 96
[2024-06-13] MEDS: Donepezil HCl 5 MG TABLET PO (19:28)
[2024-06-13] MEDS: Atorvastatin Calcium 20 MG TABLET PO (19:28)
[2024-06-13] MEDS: traZODone HCL 50 MG TABLET PO (19:29)
[2024-06-14] MEDS: Levothyroxine Sodium 75 MCG TABLET PO (05:02)
[2024-06-14] MEDS: Omeprazole 20 MG CAPSULE.DR PO (05:30)
[2024-06-14 08:00] VITALS: BP 115/74; PULSE 72; RESP 16; TEMP 36.1; O2SAT 94
[2024-06-14] MEDS: Cholecalciferol (Vitamin D3) 25 MCG TABLET 50 MCG PO (08:20)
[2024-06-14] MEDS: oxyBUTYnin chloride ER 5 MG TAB.ER.24 15 MG PO (08:20)
[2024-06-14] MEDS: Fluticasone Propionate Nasal 16 GM SPRAY 2 SPRAY NOSTRIL-B (08:21)
[2024-06-14] MEDS: OLANZapine 2.5 MG TABLET PO ×2 (08:21→20:33)
[2024-06-14] MEDS: Divalproex Sodium Sprinkles 125 MG CAP.DR.SPR 250 MG PO ×3 (08:21→20:33)
[2024-06-14] MEDS: timoloL maleate 0.5 % Oph Sol 5 ML DRBTL 1 DROP EYE-BOTH ×2 (08:21→20:34)
[2024-06-14 20:00] VITALS: BP 139/72; PULSE 71; RESP 18; TEMP 36.2; O2SAT 96
[2024-06-14] MEDS: traZODone HCL 50 MG TABLET PO (20:33)
[2024-06-14] MEDS: Donepezil HCl 5 MG TABLET PO (20:33)
[2024-06-14] MEDS: Atorvastatin Calcium 20 MG TABLET PO (20:33)
--- NOTE | 2024-06-14 22:26 | P.PNPSI_ITS ---
Subjective Subjective Date of Service: 06/14/24 Reason For Visit: Combative Behaviors Interim History: Pt slept through the night. She states I want to go home no further interaction with display card writer as she continues ambulating with walker. No behavioral concerns. VS stable. taking medications as prescribed. Mental Status Exam Mental Status Exam Narrative: Appearance: casually groomed ambulating with walker. Behavior: calm Psychomotor: no agitation or retardation noted Speech: mumbles, regular high pitch tone, spontaneous TP: concrete TC: wanting to go home Mood:ok Affect:calm, congruent SI: none HI: none VH/AH: no overt signs Delusions: none noted Insight/judgment: impaired x 2 Memory/cog: alert, not oriented to place, month or year nor situation. severe impairment in memory and cognition. Diagnostics Vital Signs (24Hr): Vital Signs - 24 hr 06/14/24 08:00 06/14/24 20:00 Temperature 96.9 F 97.2 F Pulse Rate 72 71 Respiratory Rate 16 18 Blood Pressure 115/74 139/72 Pulse Oximetry 94 96 Oxygen Delivery Method Room Air Room Air BMI result Body Mass Index 19.6 Labs 06/04/24 13:23 Medications Medications Current Medications Acetaminophen (Acetaminophen 325 Mg Tablet) 650 mg PO Q6H PRN PRN Reason: Headache/Pain, Scale 1-10 Last Admin: 06/11/24 00:27 Dose: 650 mg Al Hydroxide/Mg Hydroxide (Magnesium Hydrox/Alum Hydrox 30 Ml Oral.Susp) 30 ml PO Q6H PRN PRN Reason: Heartburn/Nausea Atorvastatin Calcium (Atorvastatin Calcium 20 Mg Tablet) 20 mg PO BEDTIME [facility] Last Admin: 06/14/24 20:33 Dose: 20 mg Divalproex Sodium (Divalproex Sodium Sprinkles 125 Mg ) 250 mg PO TID [facility] Last Admin: 06/14/24 20:33 Dose: 250 mg Donepezil HCl (Donepezil Hcl 5 Mg Tablet) 5 mg PO BEDTIME [facility] Last Admin: 06/14/24 20:33 Dose: 5 mg Fluticasone Propionate (Fluticasone Propionate Nasal 16 Gm [place]) 2 spray NOSTRIL-B DAILY [facility] Last Admin: 06/14/24 08:21 Dose: 2 spray Levothyroxine Sodium (Levothyroxine Sodium 75 Mcg Tablet) 75 mcg PO DAILY@0600 [facility] Last Admin: 06/14/24 05:02 Dose: 75 mcg Lorazepam (Lorazepam 0.5 Mg Tablet) 0.5 mg PO Q8H PRN PRN Reason: Anxiety Last Admin: 06/12/24 23:51 Dose: 0.5 mg Magnesium Hydroxide (Milk Of Magnesia 30 Ml Oral.Susp) 30 ml PO DAILY PRN PRN Reason: Constipation Olanzapine (Olanzapine 2.5 Mg Tablet) 2.5 mg PO BID [facility] Last Admin: 06/14/24 20:33 Dose: 2.5 mg Omeprazole (Omeprazole 20 Mg Capsule.Dr) 20 mg PO DAILY@0630 [facility] Last Admin: 06/14/24 05:30 Dose: 20 mg Oxybutynin Chloride (Oxybutynin Chloride Er 5 Mg Tab.Er.24) 15 mg PO DAILY [facility] Last Admin: 06/14/24 08:20 Dose: 15 mg Timolol Maleate (Timolol Maleate 0.5 % Oph Peg 5 Ml Drbtl) 1 drop EYE-BOTH BID [facility] Last Admin: 06/14/24 20:34 Dose: 1 drop Trazodone HCl (Trazodone Hcl 50 Mg Tablet) 50 mg PO BEDTIME MRX1 PRN PRN Reason: Insomnia Last Admin: 06/14/24 20:33 Dose: 50 mg Vitamin D (Cholecalciferol (Vitamin D3) 25 Mcg Tablet) 50 mcg PO DAILY [facility] Last Admin: 06/14/24 08:20 Dose: 50 mcg Allergies Allergies Allergy/AdvReac Type Severity Reaction Status Date / Time sulfamethoxazole Allergy Unknown Verified 03/03/24 14:32 [From Sulfamethoxazole-Trimethoprim] trimethoprim Allergy Unknown Verified 03/03/24 14:32 [From Sulfamethoxazole-Trimethoprim] Assessment & Plan Assessment & Plan (1) 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 Mascorro is an 79 year-old woman with hx of dementia, advanced stages. She was initially admitted to for management of combative and impulsive behaviors secondary to dementia. She was stabilized on combination of depakote, olanzapine. She had episode of brief change in mental status. No VS abnormalities. She was transferred to medical floor for work up of TIA vs stroke, which was negative. Pt transferred back to continue medication management and stabilization and placement. PLAN 06/09 continue tx. awaiting placement. This display card writer completed [employer] for conservatorship on 06/08. HCP is affirmed. 06/10 continue tx. 06/14 continue tx. Reason for continued inpatient stay Substantial Risk for: inability to function Time Spent With Patient Time: Total time managing care of this patient today ____ minutes.
[2024-06-15] MEDS: Omeprazole 20 MG CAPSULE.DR PO (05:56)
[2024-06-15] MEDS: Levothyroxine Sodium 75 MCG TABLET PO (05:56)
[2024-06-15 08:00] VITALS: BP 138/64; PULSE 65; RESP 14; TEMP 36.1; O2SAT 95
[2024-06-15] MEDS: timoloL maleate 0.5 % Oph Sol 5 ML DRBTL 1 DROP EYE-BOTH ×2 (08:55→20:49)
[2024-06-15] MEDS: Fluticasone Propionate Nasal 16 GM SPRAY 2 SPRAY NOSTRIL-B (08:56)
[2024-06-15] MEDS: Divalproex Sodium Sprinkles 125 MG CAP.DR.SPR 250 MG PO ×3 (08:57→20:47)
[2024-06-15] MEDS: Cholecalciferol (Vitamin D3) 25 MCG TABLET 50 MCG PO (08:57)
[2024-06-15] MEDS: oxyBUTYnin chloride ER 5 MG TAB.ER.24 15 MG PO (08:58)
[2024-06-15] MEDS: OLANZapine 2.5 MG TABLET PO ×2 (08:58→20:47)
[2024-06-15 20:00] VITALS: BP 145/74; PULSE 74; TEMP 36.4; O2SAT 93
--- NOTE | 2024-06-15 20:16 | HO.PSYCHPN ---
Subjective Subjective Date of Service: 06/15/24 Reason For Visit: Combative Behaviors Interim History: Pt slept through the night. She states I want to go home no further interaction with writer technical publications as she continues ambulating with walker. No behavioral concerns. VS stable. taking medications as prescribed. Mental Status Exam Mental Status Exam Narrative: Appearance: casually groomed ambulating with walker. Behavior: calm Psychomotor: no agitation or retardation noted Speech: mumbles, regular high pitch tone, spontaneous TP: concrete TC: wanting to go home Mood:ok Affect:calm, congruent SI: none HI: none VH/AH: no overt signs Delusions: none noted Insight/judgment: impaired x 2 Memory/cog: alert, not oriented to place, month or year nor situation. severe impairment in memory and cognition. Diagnostics Vital Signs (24Hr): Vital Signs - 24 hr 06/15/24 08:00 Temperature 96.9 F Pulse Rate 65 Respiratory Rate 14 Blood Pressure 138/64 Pulse Oximetry 95 Oxygen Delivery Method Room Air BMI result Body Mass Index 19.6 Labs 06/04/24 13:23 Medications Medications Current Medications Acetaminophen (Acetaminophen 325 Mg Tablet) 650 mg PO Q6H PRN PRN Reason: Headache/Pain, Scale 1-10 Last Admin: 06/11/24 00:27 Dose: 650 mg Al Hydroxide/Mg Hydroxide (Magnesium Hydrox/Alum Hydrox 30 Ml Oral.Susp) 30 ml PO Q6H PRN PRN Reason: Heartburn/Nausea Atorvastatin Calcium (Atorvastatin Calcium 20 Mg Tablet) 20 mg PO BEDTIME [facility] Last Admin: 06/14/24 20:33 Dose: 20 mg Divalproex Sodium (Divalproex Sodium Sprinkles 125 Mg ) 250 mg PO TID [facility] Last Admin: 06/15/24 14:59 Dose: 250 mg Donepezil HCl (Donepezil Hcl 5 Mg Tablet) 5 mg PO BEDTIME [facility] Last Admin: 06/14/24 20:33 Dose: 5 mg Fluticasone Propionate (Fluticasone Propionate Nasal 16 Gm [place]) 2 spray NOSTRIL-B DAILY [facility] Last Admin: 06/15/24 08:56 Dose: 2 spray Levothyroxine Sodium (Levothyroxine Sodium 75 Mcg Tablet) 75 mcg PO DAILY@0600 [facility] Last Admin: 06/15/24 05:56 Dose: 75 mcg Lorazepam (Lorazepam 0.5 Mg Tablet) 0.5 mg PO Q8H PRN PRN Reason: Anxiety Last Admin: 06/12/24 23:51 Dose: 0.5 mg Magnesium Hydroxide (Milk Of Magnesia 30 Ml Oral.Susp) 30 ml PO DAILY PRN PRN Reason: Constipation Olanzapine (Olanzapine 2.5 Mg Tablet) 2.5 mg PO BID [facility] Last Admin: 06/15/24 08:58 Dose: 2.5 mg Omeprazole (Omeprazole 20 Mg Capsule.Dr) 20 mg PO DAILY@0630 [facility] Last Admin: 06/15/24 05:56 Dose: 20 mg Oxybutynin Chloride (Oxybutynin Chloride Er 5 Mg Tab.Er.24) 15 mg PO DAILY [facility] Last Admin: 06/15/24 08:58 Dose: 15 mg Timolol Maleate (Timolol Maleate 0.5 % Oph Peg 5 Ml Drbtl) 1 drop EYE-BOTH BID [facility] Last Admin: 06/15/24 08:55 Dose: 1 drop Trazodone HCl (Trazodone Hcl 50 Mg Tablet) 50 mg PO BEDTIME MRX1 PRN PRN Reason: Insomnia Last Admin: 06/14/24 20:33 Dose: 50 mg Vitamin D (Cholecalciferol (Vitamin D3) 25 Mcg Tablet) 50 mcg PO DAILY [facility] Last Admin: 06/15/24 08:57 Dose: 50 mcg Allergies Allergies Allergy/AdvReac Type Severity Reaction Status Date / Time sulfamethoxazole Allergy Unknown Verified 03/03/24 14:32 [From Sulfamethoxazole-Trimethoprim] trimethoprim Allergy Unknown Verified 03/03/24 14:32 [From Sulfamethoxazole-Trimethoprim] Assessment & Plan Assessment & Plan (1) 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 Mascorro is an 79 year-old woman with hx of dementia, advanced stages. She was initially admitted to for management of combative and impulsive behaviors secondary to dementia. She was stabilized on combination of depakote, olanzapine. She had episode of brief change in mental status. No VS abnormalities. She was transferred to medical floor for work up of TIA vs stroke, which was negative. Pt transferred back to continue medication management and stabilization and placement. PLAN 06/09 continue tx. awaiting placement. This writer technical publications completed med cert for conservatorship on 06/08. HCP is affirmed. 06/13 continue tx. 06/14 continue tx 06/15 continue tx. Reason for continued inpatient stay Substantial Risk for: inability to function Time Spent With Patient Time: Total time managing care of this patient today ____ minutes.
[2024-06-15] MEDS: Donepezil HCl 5 MG TABLET PO (20:47)
[2024-06-15] MEDS: Atorvastatin Calcium 20 MG TABLET PO (20:47)
[2024-06-16] MEDS: Omeprazole 20 MG CAPSULE.DR PO (06:08)
[2024-06-16] MEDS: Levothyroxine Sodium 75 MCG TABLET PO (06:09)
[2024-06-16 07:10] VITALS: BP 128/93; BP 146/70
[2024-06-16 07:14] LABS: Glucose, Whole Blood 77 mg/dL (60-115)
--- NOTE | 2024-06-16 07:19 | PM.IMCN ---
History of Present Illness Data of Consult Service Date: 06/16/24 Primary Care Provider: Unknown Physician HPI Reason for consult: near syncope A rapid response was called on 7:30 this morning for the patient as she was trying to get out of the bed then became altered and unresponsive. upon evaluation she was alert with open eyes but not answering questions. no abnormal movements. responded to vocal stimuli minute after my arrival and was vocal back to her baseline. During that time her sugar was tested at 77, stable vital signs. EKG showing sinus rhythm. Seems similar to previous incident that ended up with admission to the hospital on 06/02 and had full evaluation with brain images and Echo with no recurrence or abnormal findings. EEG was not done at that point. Review of Systems Review of Systems: No fever, chills or weakness No chest pain, palpitation No shortness of breath or coughing No abdominal pain, nausea or vomiting PMFSH Medical History Dementia H/O: hypothyroidism Glaucoma Social History Household Members: None Housing: Assisted Living Facility Do you presently have visiting nurse or other home services: Yes (visiting nurse every 6 months for assmts) Alcohol intake: former Comment: 1:1 Patient Tobacco Use Status: Never used Tobacco Second Hand Smoke Exposure: No Use of substances other than those prescribed or required for medical reasons: No Currently Displaying Signs/Symptoms of Drug Intoxication Withdrawal: No Any prior treatment program specific to substance use: No Have you been hit, kicked, punched, or otherwise hurt by someone within the past year? If so, by whom?: No Do you feel safe in your current relationship?: No Current Relationship Is there a partner from a previous relationship who is making you feel unsafe now?: No Are you made to feel afraid or neglected: No Advance Directives: Yes Advance Directives on File: Yes Advance Directives Date on File: 03/03/24 Do you have thoughts of harming others: None Do you have a plan to hurt others: No Plan Recently lost weight without trying: No Eating poorly because of decreased appetite: No Nutrition Risks: No Nutritional Risk Patient : No : No Poor oral hygiene: No service: No Sexual orientation: Straight/Heterosexual Meds Allergies Allergy/AdvReac Type Severity Reaction Status Date / Time sulfamethoxazole Allergy Unknown Verified 03/03/24 14:32 [From Sulfamethoxazole-Trimethoprim] trimethoprim Allergy Unknown Verified 03/03/24 14:32 [From Sulfamethoxazole-Trimethoprim] Active Medications: Current Medications Acetaminophen (Acetaminophen 325 Mg Tablet) 650 mg PO Q6H PRN PRN Reason: Headache/Pain, Scale 1-10 Last Admin: 06/11/24 00:27 Dose: 650 mg Al Hydroxide/Mg Hydroxide (Magnesium Hydrox/Alum Hydrox 30 Ml Oral.Susp) 30 ml PO Q6H PRN PRN Reason: Heartburn/Nausea Atorvastatin Calcium (Atorvastatin Calcium 20 Mg Tablet) 20 mg PO BEDTIME [facility] Last Admin: 06/15/24 20:47 Dose: 20 mg Divalproex Sodium (Divalproex Sodium Sprinkles 125 Mg Cap.) 250 mg PO TID [facility] Last Admin: 06/15/24 20:47 Dose: 250 mg Donepezil HCl (Donepezil Hcl 5 Mg Tablet) 5 mg PO BEDTIME [facility] Last Admin: 06/15/24 20:47 Dose: 5 mg Fluticasone Propionate (Fluticasone Propionate Nasal 16 Gm [place]) 2 spray NOSTRIL-B DAILY [facility] Last Admin: 06/15/24 08:56 Dose: 2 spray Levothyroxine Sodium (Levothyroxine Sodium 75 Mcg Tablet) 75 mcg PO DAILY@0600 [facility] Last Admin: 06/16/24 06:09 Dose: 75 mcg Lorazepam (Lorazepam 0.5 Mg Tablet) 0.5 mg PO Q8H PRN PRN Reason: Anxiety Last Admin: 06/12/24 23:51 Dose: 0.5 mg Magnesium Hydroxide (Milk Of Magnesia 30 Ml Oral.Susp) 30 ml PO DAILY PRN PRN Reason: Constipation Olanzapine (Olanzapine 2.5 Mg Tablet) 2.5 mg PO BID [facility] Last Admin: 06/15/24 20:47 Dose: 2.5 mg Omeprazole (Omeprazole 20 Mg Capsule.) 20 mg PO DAILY@0630 [facility] Last Admin: 06/16/24 06:08 Dose: 20 mg Oxybutynin Chloride (Oxybutynin Chloride Er 5 Mg Tab.Er.24) 15 mg PO DAILY [facility] Last Admin: 06/15/24 08:58 Dose: 15 mg Timolol Maleate (Timolol Maleate 0.5 % Oph Peg 5 Ml Drbtl) 1 drop EYE-BOTH BID [facility] Last Admin: 06/15/24 20:49 Dose: 1 drop Trazodone HCl (Trazodone Hcl 50 Mg Tablet) 50 mg PO BEDTIME MRX1 PRN PRN Reason: Insomnia Last Admin: 06/14/24 20:33 Dose: 50 mg Vitamin D (Cholecalciferol (Vitamin D3) 25 Mcg Tablet) 50 mcg PO DAILY [facility] Last Admin: 06/15/24 08:57 Dose: 50 mcg Home Medications ?Medication ?Instructions ?Recorded ?Confirmed ?Last Taken ?Type cholecalciferol (vitamin D3) 50 50 mcg PO DAILY 03/04/24 06/02/24 Unknown History mcg (2,000 unit) tablet (Vitamin D3) fluticasone propionate 50 2 spray intranasal DAILY 03/04/24 06/02/24 Unknown History mcg/actuation nasal spray,suspension timolol maleate 0.5 % eye drops 1 drp ophthalmic (eye) DAILY 03/04/24 03/04/24 Unknown History aspirin 81 mg tablet,delayed 81 mg PO DAILY 06/02/24 Unknown History release divalproex 250 mg tablet,extended 250 mg PO BID 06/02/24 Unknown History release 24 hr Physical Exam Vital Signs and Narrative: Vital Signs: Last Vital Signs Temp 97.5 F 06/15/24 20:00 Pulse 74 06/15/24 20:00 Resp 14 06/15/24 08:00 BP 145/74 H 06/15/24 20:00 Pulse Ox 93 06/15/24 20:00 O2 Del Method Room Air 06/15/24 20:00 BMI result Body Mass Index 19.6 Const: Other: Constitutional : interactive, frail looking, not in distress Cardiovascular : no JVP, no lower extremity edema Respiratory : bilateral chest movement, not in resp distress Gastrointestinal: soft, lax, Non tender Skin : Warm, Dry Neurological : Alert & disoriented to time or place, No focal deficit Results Labs 06/04/24 13:23 Labs: Laboratory Results - last 24 hr 06/16/24 07:10 POC Glucose 77 Assessment and Plan (1) Altered mental status: Status: Acute Plan Episode of altered mentaiton and decrease responsiveness. will check EEG, highly concerning for underlying seizure problem she is on Depakote 250 tid urine analysis concerning for UTI, to treat with Ceftin pending cultures Please contact hospitalist team for any further questions
--- NOTE | 2024-06-16 07:30 | ECG_ITS ---
Test Reason : RAPID RESPONSE Blood Pressure : */* mmHG Vent. Rate : 64 BPM Atrial Rate : 77 BPM P-R Int : 190 ms QRS Dur : 106 ms QT Int : 446 ms P-R-T Axes : 47 -53 4 degrees QTcB Int : 460 ms Sinus rhythm with marked sinus arrhythmia Incomplete right bundle branch block Left anterior fascicular block Minimal voltage criteria for LVH, may be normal variant ( [place] product ) Septal infarct (cited on or before 02-Jun-2024) Abnormal ECG When compared with ECG of 11-Jun-2024 11:03, Questionable change in initial forces of Septal leads Nonspecific T wave abnormality has replaced inverted T waves in Inferior leads Nonspecific T wave abnormality no longer evident in Anterior leads Referred By: Keanu Cottrell Electronically Signed By: TRUNG WRIGHT
[2024-06-16 08:08] LABS: Appearance Urine Cloudy; Color Urine Yellow; Glucose Urine UA Negative (Negative); Leukocyte Esterase Urine Large (3+) (Negative); Nitrite Urine Negative (Negative); PH 8.5 (5.0-9.0); UMIC TRIGGER UACC YES; Urine Blood Trace (Negative); Urine Ketones Negative (Negative); Urine Protein Trace mg/dL (Neg-Trace)
[2024-06-16 08:14] LABS: Bacteria Urine 1+ (None Seen); Hyaline Casts Urine 0-2 /LPF (0-2); Squamous Epithelial Cell Urine 0-2 /HPF (0-2); UACC Culture Trigger YES; WBC Urine >50 /HPF (0-5)
[2024-06-16] MEDS: timoloL maleate 0.5 % Oph Sol 5 ML DRBTL 1 DROP EYE-BOTH ×2 (08:37→20:20)
[2024-06-16] MEDS: OLANZapine 2.5 MG TABLET PO ×2 (08:37→20:19)
[2024-06-16] MEDS: Fluticasone Propionate Nasal 16 GM SPRAY 2 SPRAY NOSTRIL-B (08:37)
[2024-06-16] MEDS: oxyBUTYnin chloride ER 5 MG TAB.ER.24 15 MG PO (08:38)
[2024-06-16] MEDS: Cholecalciferol (Vitamin D3) 25 MCG TABLET 50 MCG PO (08:38)
[2024-06-16] MEDS: Divalproex Sodium Sprinkles 125 MG CAP.DR.SPR 250 MG PO ×3 (08:38→20:19)
[2024-06-16] MEDS: cefuroxime axetiL 250 MG TABLET PO ×2 (10:46→21:17)
--- NOTE | 2024-06-16 11:30 | HO.PSYCHPN ---
Subjective Subjective Date of Service: 06/16/24 Reason For Visit: Combative Behaviors Subjective Notes: Conditional Voluntary Healthcare Proxy: Yes Interim History: Pt slept through the night. She had an episode in the AM witnessed by staff were she appeared to have seizure like activity. rapid code was called, seen by hospitalist, suspicious of seizure. eeg ordered. pt seen after, she appears back to baseline. Review of Systems Review of Systems No fever, chills or weakness No chest pain, palpitation No shortness of breath or coughing No abdominal pain, nausea or vomiting Mental Status Exam Mental Status Exam Narrative: Appearance: casually groomed ambulating with walker. Behavior: calm Psychomotor: no agitation or retardation noted Speech: mumbles, regular high pitch tone, spontaneous TP: concrete TC: wanting to go home Mood:ok Affect:calm, congruent SI: none HI: none VH/AH: no overt signs Delusions: none noted Insight/judgment: impaired x 2 Memory/cog: alert, not oriented to place, month or year nor situation. severe impairment in memory and cognition. Diagnostics Vital Signs (24Hr): Vital Signs - 24 hr 06/15/24 20:00 06/16/24 07:10 06/16/24 07:10 Temperature 97.5 F Pulse Rate 74 Blood Pressure 145/74 H 146/70 H 128/93 H Pulse Oximetry 93 Oxygen Delivery Method Room Air BMI result Body Mass Index 19.6 Labs 06/04/24 13:23 Labs: Laboratory Results - last 48 hr 06/16/24 06/16/24 07:10 07:20 POC Glucose 77 Urine Color Yellow Urine Appearance Cloudy Urine pH 8.5 Ur Specific [place] 1.010 Urine Protein Trace Urine Glucose (UA) Negative Urine Ketones Negative Urine Blood Trace H Urine Nitrite Negative Ur Leukocyte Esterase Large (3+) H Urine RBC 3-5 H Urine WBC >50 H Ur Squamous Epith Cells 0-2 Urine Bacteria 1+ Hyaline Casts 0-2 Medications Medications Current Medications Acetaminophen (Acetaminophen 325 Mg Tablet) 650 mg PO Q6H PRN PRN Reason: Headache/Pain, Scale 1-10 Last Admin: 06/11/24 00:27 Dose: 650 mg Al Hydroxide/Mg Hydroxide (Magnesium Hydrox/Alum Hydrox 30 Ml Oral.Susp) 30 ml PO Q6H PRN PRN Reason: Heartburn/Nausea Atorvastatin Calcium (Atorvastatin Calcium 20 Mg Tablet) 20 mg PO BEDTIME [facility] Last Admin: 06/15/24 20:47 Dose: 20 mg Cefuroxime Axetil (Cefuroxime Axetil 250 Mg Tablet) 250 mg PO Q12H [facility] Last Admin: 06/16/24 10:46 Dose: 250 mg Divalproex Sodium (Divalproex Sodium Sprinkles 125 Mg Cap.Spr) 250 mg PO TID [facility] Last Admin: 06/16/24 08:38 Dose: 250 mg Donepezil HCl (Donepezil Hcl 5 Mg Tablet) 5 mg PO BEDTIME [facility] Last Admin: 06/15/24 20:47 Dose: 5 mg Fluticasone Propionate (Fluticasone Propionate Nasal 16 Gm [place]) 2 spray NOSTRIL-B DAILY [facility] Last Admin: 06/16/24 08:37 Dose: 2 spray Levothyroxine Sodium (Levothyroxine Sodium 75 Mcg Tablet) 75 mcg PO DAILY@0600 [facility] Last Admin: 06/16/24 06:09 Dose: 75 mcg Lorazepam (Lorazepam 0.5 Mg Tablet) 0.5 mg PO Q8H PRN PRN Reason: Anxiety Last Admin: 06/12/24 23:51 Dose: 0.5 mg Magnesium Hydroxide (Milk Of Magnesia 30 Ml Oral.Susp) 30 ml PO DAILY PRN PRN Reason: Constipation Olanzapine (Olanzapine 2.5 Mg Tablet) 2.5 mg PO BID [facility] Last Admin: 06/16/24 08:37 Dose: 2.5 mg Omeprazole (Omeprazole 20 Mg Capsule.Dr) 20 mg PO DAILY@0630 [facility] Last Admin: 06/16/24 06:08 Dose: 20 mg Oxybutynin Chloride (Oxybutynin Chloride Er 5 Mg Tab.Er.24) 15 mg PO DAILY [facility] Last Admin: 06/16/24 08:38 Dose: 15 mg Timolol Maleate (Timolol Maleate 0.5 % Oph Peg 5 Ml Drbtl) 1 drop EYE-BOTH BID [facility] Last Admin: 06/16/24 08:37 Dose: 1 drop Trazodone HCl (Trazodone Hcl 50 Mg Tablet) 50 mg PO BEDTIME MRX1 PRN PRN Reason: Insomnia Last Admin: 06/14/24 20:33 Dose: 50 mg Vitamin D (Cholecalciferol (Vitamin D3) 25 Mcg Tablet) 50 mcg PO DAILY [facility] Last Admin: 06/16/24 08:38 Dose: 50 mcg Allergies Allergies Allergy/AdvReac Type Severity Reaction Status Date / Time sulfamethoxazole Allergy Unknown Verified 03/03/24 14:32 [From Sulfamethoxazole-Trimethoprim] trimethoprim Allergy Unknown Verified 03/03/24 14:32 [From Sulfamethoxazole-Trimethoprim] Assessment & Plan Assessment & Plan (1) 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 Mascorro is an 79 year-old woman with hx of dementia, advanced stages. She was initially admitted to [facility] for management of combative and impulsive behaviors secondary to dementia. She was stabilized on combination of depakote, olanzapine. She had episode of brief change in mental status. No VS abnormalities. She was transferred to medical floor for work up of TIA vs stroke, which was negative. Pt transferred back to continue medication management and stabilization and placement. PLAN 06/09 continue tx. awaiting placement. This typewriter mechanic completed [employer] for conservatorship on 06/08. HCP is affirmed. 06/13 continue tx. 06/14 continue tx 06/15 continue tx. 06/16 continue tx. Reason for continued inpatient stay Substantial Risk for: inability to function Time Spent With Patient Time: Total time managing care of this patient today ____ minutes.
[2024-06-16 20:00] VITALS: BP 148/68; PULSE 69; RESP 17; TEMP 36; O2SAT 94
[2024-06-16] MEDS: Donepezil HCl 5 MG TABLET PO (20:19)
[2024-06-16] MEDS: Atorvastatin Calcium 20 MG TABLET PO (20:19)
[2024-06-16] MEDS: traZODone HCL 50 MG TABLET PO (20:19)
[2024-06-17] MEDS: Levothyroxine Sodium 75 MCG TABLET PO (06:02)
[2024-06-17] MEDS: Omeprazole 20 MG CAPSULE.DR PO (06:02)
[2024-06-17 08:00] VITALS: BP 134/85; PULSE 62; RESP 16; TEMP 36.1; O2SAT 93
[2024-06-17] MEDS: oxyBUTYnin chloride ER 5 MG TAB.ER.24 15 MG PO (08:54)
[2024-06-17] MEDS: OLANZapine 2.5 MG TABLET PO ×2 (08:55→20:17)
[2024-06-17] MEDS: Divalproex Sodium Sprinkles 125 MG CAP.DR.SPR 250 MG PO ×3 (08:55→20:17)
[2024-06-17] MEDS: Fluticasone Propionate Nasal 16 GM SPRAY 2 SPRAY NOSTRIL-B (08:55)
[2024-06-17] MEDS: Cholecalciferol (Vitamin D3) 25 MCG TABLET 50 MCG PO (08:55)
[2024-06-17] MEDS: timoloL maleate 0.5 % Oph Sol 5 ML DRBTL 1 DROP EYE-BOTH ×2 (08:56→21:44)
[2024-06-17] MEDS: cefuroxime axetiL 250 MG TABLET PO ×2 (11:07→21:48)
[2024-06-17 16:19] VITALS: BP 125/70; PULSE 81; RESP 16; TEMP 36; O2SAT 93
[2024-06-17 20:00] VITALS: BP 143/66; PULSE 83; RESP 16; TEMP 36.7; O2SAT 92
[2024-06-17] MEDS: traZODone HCL 50 MG TABLET PO (20:17)
[2024-06-17] MEDS: Donepezil HCl 5 MG TABLET PO (20:17)
[2024-06-17] MEDS: Atorvastatin Calcium 20 MG TABLET PO (20:17)
--- NOTE | 2024-06-17 21:12 | HO.PSYCHPN ---
Subjective Subjective Date of Service: 06/17/24 Reason For Visit: Combative Behaviors Subjective Notes: Conditional Voluntary Interim History: Pt slept through the night. She has been visible on the unit, ambulating with walker. No overt combative behaviors, impulsive, tolerating medications. Pending eeg for seizure like activity. Review of Systems Review of Systems No fever, chills or weakness No chest pain, palpitation No shortness of breath or coughing No abdominal pain, nausea or vomiting Mental Status Exam Mental Status Exam Narrative: Appearance: casually groomed ambulating with walker. Behavior: calm Psychomotor: no agitation or retardation noted Speech: mumbles, regular high pitch tone, spontaneous TP: concrete TC: wanting to go home Mood:ok Affect:calm, congruent SI: none HI: none VH/AH: no overt signs Delusions: none noted Insight/judgment: impaired x 2 Memory/cog: alert, not oriented to place, month or year nor situation. severe impairment in memory and cognition. Diagnostics Vital Signs (24Hr): Vital Signs - 24 hr 06/17/24 08:00 06/17/24 16:19 06/17/24 20:00 Temperature 97 F 96.8 F 98.1 F Pulse Rate 62 81 83 Respiratory Rate 16 16 16 Blood Pressure 134/85 125/70 143/66 H Pulse Oximetry 93 93 92 Oxygen Delivery Method Room Air Room Air Room Air BMI result Body Mass Index 19.6 Labs 06/04/24 13:23 Labs: Laboratory Results - last 48 hr 06/16/24 06/16/24 07:10 07:20 POC Glucose 77 Urine Color Yellow Urine Appearance Cloudy Urine pH 8.5 Ur Specific [place] 1.010 Urine Protein Trace Urine Glucose (UA) Negative Urine Ketones Negative Urine Blood Trace H Urine Nitrite Negative Ur Leukocyte Esterase Large (3+) H Urine RBC 3-5 H Urine WBC >50 H Ur Squamous Epith Cells 0-2 Urine Bacteria 1+ Hyaline Casts 0-2 Medications Medications Current Medications Acetaminophen (Acetaminophen 325 Mg Tablet) 650 mg PO Q6H PRN PRN Reason: Headache/Pain, Scale 1-10 Last Admin: 06/11/24 00:27 Dose: 650 mg Al Hydroxide/Mg Hydroxide (Magnesium Hydrox/Alum Hydrox 30 Ml Oral.Susp) 30 ml PO Q6H PRN PRN Reason: Heartburn/Nausea Atorvastatin Calcium (Atorvastatin Calcium 20 Mg Tablet) 20 mg PO BEDTIME [facility] Last Admin: 06/17/24 20:17 Dose: 20 mg Cefuroxime Axetil (Cefuroxime Axetil 250 Mg Tablet) 250 mg PO Q12H [facility] Last Admin: 06/17/24 11:07 Dose: 250 mg Divalproex Sodium (Divalproex Sodium Sprinkles 125 Mg Cap.) 250 mg PO TID [facility] Last Admin: 06/17/24 20:17 Dose: 250 mg Donepezil HCl (Donepezil Hcl 5 Mg Tablet) 5 mg PO BEDTIME [facility] Last Admin: 06/17/24 20:17 Dose: 5 mg Fluticasone Propionate (Fluticasone Propionate Nasal 16 Gm [place]) 2 spray NOSTRIL-B DAILY [facility] Last Admin: 06/17/24 08:55 Dose: 2 spray Levothyroxine Sodium (Levothyroxine Sodium 75 Mcg Tablet) 75 mcg PO DAILY@0600 [facility] Last Admin: 06/17/24 06:02 Dose: 75 mcg Lorazepam (Lorazepam 0.5 Mg Tablet) 0.5 mg PO Q8H PRN PRN Reason: Anxiety Last Admin: 06/12/24 23:51 Dose: 0.5 mg Magnesium Hydroxide (Milk Of Magnesia 30 Ml Oral.Susp) 30 ml PO DAILY PRN PRN Reason: Constipation Olanzapine (Olanzapine 2.5 Mg Tablet) 2.5 mg PO BID [facility] Last Admin: 06/17/24 20:17 Dose: 2.5 mg Omeprazole (Omeprazole 20 Mg Capsule.Dr) 20 mg PO DAILY@0630 [facility] Last Admin: 06/17/24 06:02 Dose: 20 mg Oxybutynin Chloride (Oxybutynin Chloride Er 5 Mg Tab.Er.24) 15 mg PO DAILY [facility] Last Admin: 06/17/24 08:54 Dose: 15 mg Timolol Maleate (Timolol Maleate 0.5 % Oph Peg 5 Ml Drbtl) 1 drop EYE-BOTH BID [facility] Last Admin: 06/17/24 08:56 Dose: 1 drop Trazodone HCl (Trazodone Hcl 50 Mg Tablet) 50 mg PO BEDTIME MRX1 PRN PRN Reason: Insomnia Last Admin: 06/17/24 20:17 Dose: 50 mg Vitamin D (Cholecalciferol (Vitamin D3) 25 Mcg Tablet) 50 mcg PO DAILY [facility] Last Admin: 06/17/24 08:55 Dose: 50 mcg Allergies Allergies Allergy/AdvReac Type Severity Reaction Status Date / Time sulfamethoxazole Allergy Unknown Verified 03/03/24 14:32 [From Sulfamethoxazole-Trimethoprim] trimethoprim Allergy Unknown Verified 03/03/24 14:32 [From Sulfamethoxazole-Trimethoprim] Assessment & Plan Assessment & Plan (1) 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 Mascorro is an 79 year-old woman with hx of dementia, advanced stages. She was initially admitted to [facility] for management of combative and impulsive behaviors secondary to dementia. She was stabilized on combination of depakote, olanzapine. She had episode of brief change in mental status. No VS abnormalities. She was transferred to medical floor for work up of TIA vs stroke, which was negative. Pt transferred back to continue medication management and stabilization and placement. PLAN 06/09 continue tx. awaiting placement. This marketing writer completed [employer] for conservatorship on 06/08. HCP is affirmed. 06/13 continue tx. 06/14 continue tx 06/15 continue tx. 06/16 continue tx. 06/17 continue tx. Reason for continued inpatient stay Substantial Risk for: inability to function Time Spent With Patient Time: Total time managing care of this patient today ____ minutes.
--- NOTE | 2024-06-18 | EEG_ITS ---
FINDINGS: This is a 16-channel EEG with an EKG lead. Patient is reported awake during the tracing. Background EEG rhythm is somewhat asymmetric about 7 to 8 hertz, 5 to 20 microvolt posteriorly in left hemispheric lead and little bit lower amplitude in right hemispheric leads. Otherwise, no definite sharp waves or spikes were noted. Cardiac lead did not reveal any significant abnormality. Photic stimulation did not produce any significant driving. Hyperventilation was not performed. IMPRESSION: Mildly abnormal electroencephalogram suggestive of right hemispheric structural dysfunction, but no evidence of seizure disorder. MD EM [place]/[facility] / [id number]
[2024-06-18] MEDS: Levothyroxine Sodium 75 MCG TABLET PO (05:51)
[2024-06-18] MEDS: Omeprazole 20 MG CAPSULE.DR PO (05:51)
[2024-06-18 07:59] VITALS: BP 144/71; PULSE 66; RESP 16; TEMP 37; O2SAT 96
[2024-06-18] MEDS: OLANZapine 2.5 MG TABLET PO ×2 (08:13→20:00)
[2024-06-18] MEDS: oxyBUTYnin chloride ER 5 MG TAB.ER.24 15 MG PO (08:13)
[2024-06-18] MEDS: Divalproex Sodium Sprinkles 125 MG CAP.DR.SPR 250 MG PO ×3 (08:13→20:00)
[2024-06-18] MEDS: Cholecalciferol (Vitamin D3) 25 MCG TABLET 50 MCG PO (08:13)
[2024-06-18] MEDS: Fluticasone Propionate Nasal 16 GM SPRAY 2 SPRAY NOSTRIL-B (08:14)
[2024-06-18] MEDS: timoloL maleate 0.5 % Oph Sol 5 ML DRBTL 1 DROP EYE-BOTH ×2 (08:14→20:01)
--- NOTE | 2024-06-18 08:28 | P.PNPSI_ITS ---
Subjective Subjective Date of Service: 06/17/24 Reason For Visit: Combative Behaviors Subjective Notes: Conditional Voluntary Healthcare Proxy: Yes Interim History: Pt slept through the night. She is sitting having breakfast, good hygiene, reports doing well, usually disengages from longer conversations. No combative behaviors, pending eeg. Review of Systems Review of Systems No fever, chills or weakness No chest pain, palpitation No shortness of breath or coughing No abdominal pain, nausea or vomiting Mental Status Exam Mental Status Exam Narrative: Appearance: casually groomed ambulating with walker. Behavior: calm Psychomotor: no agitation or retardation noted Speech: mumbles, regular high pitch tone, spontaneous TP: concrete TC: wanting to go home Mood:ok Affect:calm, congruent SI: none HI: none VH/AH: no overt signs Delusions: none noted Insight/judgment: impaired x 2 Memory/cog: alert, not oriented to place, month or year nor situation. severe impairment in memory and cognition. Diagnostics Vital Signs (24Hr): Vital Signs - 24 hr 06/17/24 16:19 06/17/24 20:00 06/18/24 07:59 Temperature 96.8 F 98.1 F 98.6 F Pulse Rate 81 83 66 Respiratory Rate 16 16 16 Blood Pressure 125/70 143/66 H 144/71 H Pulse Oximetry 93 92 96 Oxygen Delivery Method Room Air Room Air Room Air BMI result Body Mass Index 19.6 Labs 06/04/24 13:23 Medications Medications Current Medications Acetaminophen (Acetaminophen 325 Mg Tablet) 650 mg PO Q6H PRN PRN Reason: Headache/Pain, Scale 1-10 Last Admin: 06/11/24 00:27 Dose: 650 mg Al Hydroxide/Mg Hydroxide (Magnesium Hydrox/Alum Hydrox 30 Ml Oral.Susp) 30 ml PO Q6H PRN PRN Reason: Heartburn/Nausea Atorvastatin Calcium (Atorvastatin Calcium 20 Mg Tablet) 20 mg PO BEDTIME [facility] Last Admin: 06/17/24 20:17 Dose: 20 mg Cefuroxime Axetil (Cefuroxime Axetil 250 Mg Tablet) 250 mg PO Q12H [facility] Last Admin: 06/17/24 21:48 Dose: 250 mg Divalproex Sodium (Divalproex Sodium Sprinkles 125 Mg ) 250 mg PO TID [facility] Last Admin: 06/18/24 08:13 Dose: 250 mg Donepezil HCl (Donepezil Hcl 5 Mg Tablet) 5 mg PO BEDTIME [facility] Last Admin: 06/17/24 20:17 Dose: 5 mg Fluticasone Propionate (Fluticasone Propionate Nasal 16 Gm [place]) 2 spray NOSTRIL-B DAILY [facility] Last Admin: 06/18/24 08:14 Dose: 2 spray Levothyroxine Sodium (Levothyroxine Sodium 75 Mcg Tablet) 75 mcg PO DAILY@0600 [facility] Last Admin: 06/18/24 05:51 Dose: 75 mcg Lorazepam (Lorazepam 0.5 Mg Tablet) 0.5 mg PO Q8H PRN PRN Reason: Anxiety Last Admin: 06/12/24 23:51 Dose: 0.5 mg Magnesium Hydroxide (Milk Of Magnesia 30 Ml Oral.Susp) 30 ml PO DAILY PRN PRN Reason: Constipation Olanzapine (Olanzapine 2.5 Mg Tablet) 2.5 mg PO BID [facility] Last Admin: 06/18/24 08:13 Dose: 2.5 mg Omeprazole (Omeprazole 20 Mg Capsule.Dr) 20 mg PO DAILY@0630 [facility] Last Admin: 06/18/24 05:51 Dose: 20 mg Oxybutynin Chloride (Oxybutynin Chloride Er 5 Mg Tab.Er.24) 15 mg PO DAILY [facility] Last Admin: 06/18/24 08:13 Dose: 15 mg Timolol Maleate (Timolol Maleate 0.5 % Oph Peg 5 Ml Drbtl) 1 drop EYE-BOTH BID [facility] Last Admin: 06/18/24 08:14 Dose: 1 drop Trazodone HCl (Trazodone Hcl 50 Mg Tablet) 50 mg PO BEDTIME MRX1 PRN PRN Reason: Insomnia Last Admin: 06/17/24 20:17 Dose: 50 mg Vitamin D (Cholecalciferol (Vitamin D3) 25 Mcg Tablet) 50 mcg PO DAILY [facility] Last Admin: 06/18/24 08:13 Dose: 50 mcg Allergies Allergies Allergy/AdvReac Type Severity Reaction Status Date / Time sulfamethoxazole Allergy Unknown Verified 03/03/24 14:32 [From Sulfamethoxazole-Trimethoprim] trimethoprim Allergy Unknown Verified 03/03/24 14:32 [From Sulfamethoxazole-Trimethoprim] Assessment & Plan Assessment & Plan (1) 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 Mascorro is an 79 year-old woman with hx of dementia, advanced stages. She was initially admitted to S1 for management of combative and impulsive behaviors secondary to dementia. She was stabilized on combination of depakote, olanzapine. She had episode of brief change in mental status. No VS abnormalities. She was transferred to medical floor for work up of TIA vs stroke, which was negative. Pt transferred back to continue medication management and stabilization and placement. PLAN 06/09 continue tx. awaiting placement. This customs entry writer completed [employer] for conservatorship on 06/08. HCP is affirmed. 06/13 continue tx. 06/14 continue tx 06/15 continue tx. 06/16 continue tx. 06/17 continue tx. 06/18 continue tx. Reason for continued inpatient stay Substantial Risk for: inability to function Time Spent With Patient Time: Total time managing care of this patient today ____ minutes.
[2024-06-18] MEDS: cefuroxime axetiL 250 MG TABLET PO ×2 (10:02→20:03)
[2024-06-18 20:00] VITALS: BP 151/77; PULSE 64; RESP 15; TEMP 36.6; O2SAT 93
[2024-06-18] MEDS: Atorvastatin Calcium 20 MG TABLET PO (20:00)
[2024-06-18] MEDS: Donepezil HCl 5 MG TABLET PO (20:00)
[2024-06-18] MEDS: traZODone HCL 50 MG TABLET PO (20:00)
--- NOTE | 2024-06-19 | ECG_ITS ---
Test Reason : Unresponsiveness Blood Pressure : */* mmHG Vent. Rate : 69 BPM Atrial Rate : 69 BPM P-R Int : 128 ms QRS Dur : 106 ms QT Int : 450 ms P-R-T Axes : 39 -52 16 degrees QTcB Int : 482 ms Artifact in tracing Normal sinus rhythm Left axis deviation Minimal voltage criteria for LVH, may be normal variant ( Leandro product ) Septal infarct (cited on or before 02-Jun-2024) Abnormal ECG When compared with ECG of 16-Jun-2024 07:06, No significant changes seen Referred By: Vitaliy Okeefe Electronically Signed By: TRUNG WRIGHT
[2024-06-19] MEDS: Levothyroxine Sodium 75 MCG TABLET PO (05:08)
[2024-06-19] MEDS: Omeprazole 20 MG CAPSULE.DR PO (05:57)
[2024-06-19 08:00] VITALS: BP 138/60; PULSE 70; RESP 16; TEMP 36; O2SAT 96
[2024-06-19] MEDS: timoloL maleate 0.5 % Oph Sol 5 ML DRBTL 1 DROP EYE-BOTH ×2 (08:40→20:37)
[2024-06-19] MEDS: Fluticasone Propionate Nasal 16 GM SPRAY 2 SPRAY NOSTRIL-B (08:40)
[2024-06-19] MEDS: Cholecalciferol (Vitamin D3) 25 MCG TABLET 50 MCG PO (08:40)
[2024-06-19] MEDS: Divalproex Sodium Sprinkles 125 MG CAP.DR.SPR 250 MG PO ×3 (08:40→20:36)
[2024-06-19] MEDS: OLANZapine 2.5 MG TABLET PO ×2 (08:40→20:36)
[2024-06-19] MEDS: oxyBUTYnin chloride ER 5 MG TAB.ER.24 15 MG PO (08:40)
--- NOTE | 2024-06-19 10:06 | HO.PSYCHPN ---
Subjective Subjective Date of Service: 06/19/24 Reason For Visit: Combative Behaviors Subjective Notes: Conditional Voluntary Interim History: Pt slept through the night. She is sitting having breakfast, good hygiene, reports doing well, usually disengages from longer conversations. No combative behaviors, pending eeg. Review of Systems Review of Systems No fever, chills or weakness No chest pain, palpitation No shortness of breath or coughing No abdominal pain, nausea or vomiting Mental Status Exam Mental Status Exam Narrative: Appearance: casually groomed ambulating with walker. Behavior: calm Psychomotor: no agitation or retardation noted Speech: mumbles, regular high pitch tone, spontaneous TP: concrete TC: wanting to go home Mood:ok Affect:calm, congruent SI: none HI: none VH/AH: no overt signs Delusions: none noted Insight/judgment: impaired x 2 Memory/cog: alert, not oriented to place, month or year nor situation. severe impairment in memory and cognition. Diagnostics Vital Signs (24Hr): Vital Signs - 24 hr 06/18/24 20:00 06/19/24 08:00 Temperature 97.9 F 96.8 F Pulse Rate 64 70 Respiratory Rate 15 16 Blood Pressure 151/77 H 138/60 Pulse Oximetry 93 96 Oxygen Delivery Method Room Air Room Air BMI result Body Mass Index 19.6 Labs 06/19/24 17:17 06/19/24 17:17 Medications Medications Current Medications Acetaminophen (Acetaminophen 325 Mg Tablet) 650 mg PO Q6H PRN PRN Reason: Headache/Pain, Scale 1-10 Last Admin: 06/11/24 00:27 Dose: 650 mg Al Hydroxide/Mg Hydroxide (Magnesium Hydrox/Alum Hydrox 30 Ml Oral.Susp) 30 ml PO Q6H PRN PRN Reason: Heartburn/Nausea Atorvastatin Calcium (Atorvastatin Calcium 20 Mg Tablet) 20 mg PO BEDTIME [facility] Last Admin: 06/18/24 20:00 Dose: 20 mg Cefuroxime Axetil (Cefuroxime Axetil 250 Mg Tablet) 250 mg PO Q12H [facility] Last Admin: 06/18/24 20:03 Dose: 250 mg Divalproex Sodium (Divalproex Sodium Sprinkles 125 Mg ) 250 mg PO TID [facility] Last Admin: 06/19/24 08:40 Dose: 250 mg Donepezil HCl (Donepezil Hcl 5 Mg Tablet) 5 mg PO BEDTIME [facility] Last Admin: 06/18/24 20:00 Dose: 5 mg Fluticasone Propionate (Fluticasone Propionate Nasal 16 Gm [place]) 2 spray NOSTRIL-B DAILY [facility] Last Admin: 06/19/24 08:40 Dose: 2 spray Levothyroxine Sodium (Levothyroxine Sodium 75 Mcg Tablet) 75 mcg PO DAILY@0600 [facility] Last Admin: 06/19/24 05:08 Dose: 75 mcg Lorazepam (Lorazepam 0.5 Mg Tablet) 0.5 mg PO Q8H PRN PRN Reason: Anxiety Last Admin: 06/12/24 23:51 Dose: 0.5 mg Magnesium Hydroxide (Milk Of Magnesia 30 Ml Oral.Susp) 30 ml PO DAILY PRN PRN Reason: Constipation Olanzapine (Olanzapine 2.5 Mg Tablet) 2.5 mg PO BID [facility] Last Admin: 06/19/24 08:40 Dose: 2.5 mg Omeprazole (Omeprazole 20 Mg Capsule.Dr) 20 mg PO DAILY@0630 [facility] Last Admin: 06/19/24 05:57 Dose: 20 mg Oxybutynin Chloride (Oxybutynin Chloride Er 5 Mg Tab.Er.24) 15 mg PO DAILY [facility] Last Admin: 06/19/24 08:40 Dose: 15 mg Timolol Maleate (Timolol Maleate 0.5 % Oph Peg 5 Ml Drbtl) 1 drop EYE-BOTH BID [facility] Last Admin: 06/19/24 08:40 Dose: 1 drop Trazodone HCl (Trazodone Hcl 50 Mg Tablet) 50 mg PO BEDTIME MRX1 PRN PRN Reason: Insomnia Last Admin: 06/18/24 20:00 Dose: 50 mg Vitamin D (Cholecalciferol (Vitamin D3) 25 Mcg Tablet) 50 mcg PO DAILY [facility] Last Admin: 06/19/24 08:40 Dose: 50 mcg Allergies Allergies Allergy/AdvReac Type Severity Reaction Status Date / Time sulfamethoxazole Allergy Unknown Verified 03/03/24 14:32 [From Sulfamethoxazole-Trimethoprim] trimethoprim Allergy Unknown Verified 03/03/24 14:32 [From Sulfamethoxazole-Trimethoprim] Assessment & Plan Assessment & Plan (1) 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 Mascorro is an 79 year-old woman with hx of dementia, advanced stages. She was initially admitted to S1 for management of combative and impulsive behaviors secondary to dementia. She was stabilized on combination of depakote, olanzapine. She had episode of brief change in mental status. No VS abnormalities. She was transferred to medical floor for work up of TIA vs stroke, which was negative. Pt transferred back to continue medication management and stabilization and placement. PLAN 06/09 continue tx. awaiting placement. This parts data writer completed [employer] for conservatorship on 06/08. HCP is affirmed. 06/13 continue tx. 06/14 continue tx 06/15 continue tx. 06/16 continue tx. 06/17 continue tx. 06/18 continue tx. 06/19 continue tx. Reason for continued inpatient stay Substantial Risk for: inability to function Time Spent With Patient Time: Total time managing care of this patient today ____ minutes.
[2024-06-19] MEDS: cefuroxime axetiL 250 MG TABLET PO ×2 (12:14→21:12)
[2024-06-19 16:45] VITALS: BP 139/82; PULSE 60; RESP 18; TEMP 36.4; O2SAT 93
[2024-06-19 16:57] LABS: Glucose, Whole Blood 93 mg/dL (60-115)
--- NOTE | 2024-06-19 17:16 | P.EN_ITS ---
Event Note Date of Service: 06/19/24 Event Note: Pt is an 79-year-old female with a PMH significant for subdural hemorrhage, HLD, glaucoma, epilepsy, hypothyroidism, dementia, and mood disorder who was admitted to [facility]. Rapid response was called after pt became altered and unresponsive while eating dinner in the common area. No tonic-clonic like movements noted. Pt is a one-to-one and was caught and supported by staff without fall from chair. After 1-2 minutes pt was was responsive to verbal sti muli and speaking, initially requesting to use the bathroom. POC 93 at that time and vital signs stable. Pt then became slightly agitated which is her baseline. Was placed on a stretcher and brought back to her room where she again. Back to baseline. Was seen ambulating to the bathroom without difficulty. Pt has had 2 prior similar episodes, one on 06/02 where pt was admitted to the hospital for a stroke workup that proved negative, and another on 06/16 2024. Pt was seen and evaluated on 06/02/2024 by Neurology who suggested EEG and MRI. Pt was unable to tolerate MRI at that time and EKG was not performed until yesterday on 06/18 which showed mildly abnormal electroencephalogram suggestive of right hemispheric structural dysfunction, but no evidence of seizure disorder. Review of records indicates pt was diagnosed with acute UTI on 06/16/2024. Was empirically started on cefuroxime, though cultures have now populated and show Enterococcus faecalis susceptible to ampicillin. EKG today with artifact due to pt movement, but overall reassuring without evidence of significant ischemic changes. Plan: Episode of altered mentation and decreased responsiveness Will switch ABX for UTI from cefuroxime to Augmentin 500 b.i.d. x7 days Will check CBC, CMP, troponin, and valproic acid levels Will increase patient's Depakote from 250 t.i.d. to 500 b.i.d. pending valproic acid levels Consider neurology consult if symptoms persist Time Spent With Patient Time: Total time managing care of this patient today ____ minutes.
[2024-06-19 17:26] LABS: MANUAL DIFF FLAG NO
[2024-06-19 17:33] LABS: Basophils Percent Auto 0.3 % (0-2); Eosinophils Absolute Auto 0.1 X10*3/uL (0.0-0.4); Eosinophils Percent Auto 1.6 % (0-4); Hematocrit 35.4 % (37.0-47.0); Hemoglobin 11.8 g/dl (12.0-16.0); Imm Gran Abs Auto 0.02 X10*3/uL (0.00-0.03); Imm Gran Pct Auto 0.3 % (0.0-0.4); Lymphocytes Absolute Auto 4.3 X10*3/uL (1.2-4.9); Lymphocytes Percent Auto 56.5 % (20-40); Mean Corpuscular HGB Conc 33.3 g/dl (31.0-35.0); Mean Corpuscular Hemoglobin 29.8 pg (27.0-33.0); Mean Corpuscular Volume 89.4 fL (80.0-98.0); Mean Platelet Volume 11.6 fL (9.4-12.3); Monocytes Absolute Auto 0.8 X10*3/uL (0.1-1.2); Monocytes Percent Auto 10.5 % (2-11); Neutrophils Absolute Auto 2.3 x10*3/uL (2.0-8.3); Neutrophils Percent Auto 30.8 % (45-73); Platelet Count 159 X10*3/uL (160-400); Red Blood Count 3.96 X10*6/uL (4.20-5.50); Red Cell Distribution Width 13.2 % (11.0-16.0); White Blood Count 7.5 X10*3/uL (4.8-10.8)
[2024-06-19 17:41] LABS: Alanine Aminotransferase 13 U/L (0-31); Albumin Level 3.4 g/dL (3.5-5.0); Alkaline Phosphatase 100 U/L (39-117); Anion Gap 10 (12-20); Aspartate Amino Transferase 21 U/L (5-31); Bilirubin Total 0.4 mg/dL (0.0-1.0); Blood Urea Nitrogen 15 mg/dL (9-16); Calcium 8.6 mg/dL (8.4-10.2); Carbon Dioxide 26 mmol/L (22-29); Chloride 98 mmol/L (96-108); Creatinine Clr Calc Pharmacy 42.6; Estimated Glomerular Filt Rate > 60; Glucose Random 100 mg/dL (60-115); Potassium 4.8 mmol/L (3.3-5.1); Sodium 129 mmol/L (135-145)
[2024-06-19 17:48] LABS: Troponin-I High Sensitivity 3.5 ng/L (<3.5-17.0)
--- NOTE | 2024-06-19 18:14 | PC.NURSE ---
At 16:49 patient became altered/blank, not responsive to verbal stimuli. Pt was on 1:1 and supported by staff member. Rapid response was called. VS as follow: T 97.5, P 60, BP 139/82, O2sat 93% on RA, POC 93. After 1-2 minutes Jeannie oppened her eyes and shortly after started to talk and requesting to go to the bathroom. Pt was placed first on a stretcher then transferred to her bed. After rapid response work-up pt appeared at baseline, was assisted to the bathroom and then to the milieu to have a snack. New orders: EKG completed, labs: Troponin high sensitivity, Valproic acid. Will continue to monitor.
[2024-06-19 20:00] VITALS: BP 134/63; PULSE 71; RESP 16; TEMP 36.1; O2SAT 98
[2024-06-19 20:05] LABS: Valproate 57.1 mcg/mL (50.0-100.0)
[2024-06-19] MEDS: Atorvastatin Calcium 20 MG TABLET PO (20:36)
[2024-06-19] MEDS: Donepezil HCl 5 MG TABLET PO (20:37)
[2024-06-20] MEDS: Omeprazole 20 MG CAPSULE.DR PO (06:09)
[2024-06-20] MEDS: Levothyroxine Sodium 75 MCG TABLET PO (06:09)
[2024-06-20 08:00] VITALS: BP 131/63; PULSE 64; RESP 14; TEMP 36; O2SAT 93
[2024-06-20] MEDS: Divalproex Sodium Sprinkles 125 MG CAP.DR.SPR 500 MG PO ×2 (08:30→20:34)
[2024-06-20] MEDS: Cholecalciferol (Vitamin D3) 25 MCG TABLET 50 MCG PO (08:31)
[2024-06-20] MEDS: Amoxicillin/Potassium Clav 500 MG TABLET PO ×2 (08:31→20:34)
[2024-06-20] MEDS: oxyBUTYnin chloride ER 5 MG TAB.ER.24 15 MG PO (08:31)
[2024-06-20] MEDS: OLANZapine 2.5 MG TABLET PO ×2 (08:34→20:34)
[2024-06-20] MEDS: timoloL maleate 0.5 % Oph Sol 5 ML DRBTL 1 DROP EYE-BOTH ×2 (10:03→20:34)
[2024-06-20] MEDS: Fluticasone Propionate Nasal 16 GM SPRAY 2 SPRAY NOSTRIL-B (10:04)
--- NOTE | 2024-06-20 17:21 | PC.NURSE ---
While eating her dinner she took one bite of the ground meat with gravy she began to cough on it. She then tried the potatoes and she continued to cough. She was able to tolerate her yogurt and her custard.
[2024-06-20 19:27] LABS: Anion Gap 11 (12-20); Blood Urea Nitrogen 15 mg/dL (9-16); Calcium 8.4 mg/dL (8.4-10.2); Carbon Dioxide 25 mmol/L (22-29); Chloride 98 mmol/L (96-108); Estimated Glomerular Filt Rate > 60; Glucose Random 94 mg/dL (60-115); Potassium 4.6 mmol/L (3.3-5.1); Sodium 129 mmol/L (135-145)
[2024-06-20 20:00] VITALS: BP 138/69; PULSE 69; RESP 16; TEMP 36.8; O2SAT 93
[2024-06-20] MEDS: Donepezil HCl 5 MG TABLET PO (20:34)
[2024-06-20] MEDS: Atorvastatin Calcium 20 MG TABLET PO (20:34)
[2024-06-21] MEDS: traZODone HCL 50 MG TABLET PO ×2 (01:15→21:10)
[2024-06-21] MEDS: Omeprazole 20 MG CAPSULE.DR PO (05:53)
[2024-06-21] MEDS: Levothyroxine Sodium 75 MCG TABLET PO (05:53)
[2024-06-21 08:00] VITALS: BP 138/62; PULSE 57; RESP 16; TEMP 36.3; O2SAT 97
[2024-06-21] MEDS: Divalproex Sodium Sprinkles 125 MG CAP.DR.SPR 500 MG PO ×2 (08:55→21:10)
[2024-06-21] MEDS: timoloL maleate 0.5 % Oph Sol 5 ML DRBTL 1 DROP EYE-BOTH ×2 (08:55→21:16)
[2024-06-21] MEDS: Fluticasone Propionate Nasal 16 GM SPRAY 2 SPRAY NOSTRIL-B (08:55)
[2024-06-21] MEDS: Cholecalciferol (Vitamin D3) 25 MCG TABLET 50 MCG PO (08:56)
[2024-06-21] MEDS: Amoxicillin/Potassium Clav 500 MG TABLET PO ×2 (08:56→21:10)
[2024-06-21] MEDS: oxyBUTYnin chloride ER 5 MG TAB.ER.24 15 MG PO (08:57)
[2024-06-21] MEDS: OLANZapine 2.5 MG TABLET PO ×2 (08:57→21:10)
--- NOTE | 2024-06-21 17:50 | P.PNPSI_ITS ---
Subjective Subjective Date of Service: 06/21/24 Reason For Visit: Combative Behaviors Interim History: Late entry note for patient seen on 06/20; discussed with team discussed patients low sodium; she does not understand. Mental Status Exam Mental Status Exam Narrative: Appearance: casually groomed ambulating with walker. Behavior: calm Psychomotor: no agitation or retardation noted Speech: mumbles, regular high pitch tone, spontaneous TP: concrete TC: ot clear Mood:ok Affect:calm, congruent SI: none HI: none VH/AH: no overt signs Delusions: none noted Insight/judgment: impaired x 2 Memory/cog: alert, not oriented to place, month or year nor situation. severe impairment in memory and cognition. Diagnostics Vital Signs (24Hr): Vital Signs - 24 hr 06/20/24 20:00 06/21/24 08:00 Temperature 98.2 F 97.3 F Pulse Rate 69 57 Respiratory Rate 16 16 Blood Pressure 138/69 138/62 Pulse Oximetry 93 97 Oxygen Delivery Method Room Air Room Air BMI result Body Mass Index 19.6 Labs 06/19/24 17:17 06/22/24 11:33 Labs: Laboratory Results - last 48 hr 06/19/24 06/20/24 19:48 19:09 Sodium 129 L Potassium 4.6 Chloride 98 Carbon Dioxide 25 Anion Gap 11 L BUN 15 Creatinine 0.86 Estim Creat Clear Calc 44.0 Estimated GFR > 60 Random Glucose 94 Calcium 8.4 Valproic Acid 57.1 Medications Medications Current Medications Acetaminophen (Acetaminophen 325 Mg Tablet) 650 mg PO Q6H PRN PRN Reason: Headache/Pain, Scale 1-10 Last Admin: 06/11/24 00:27 Dose: 650 mg Al Hydroxide/Mg Hydroxide (Magnesium Hydrox/Alum Hydrox 30 Ml Oral.Susp) 30 ml PO Q6H PRN PRN Reason: Heartburn/Nausea Amoxicillin/Clavulanate Potassium (Amoxicillin/Potassium Clav 500 Mg Tablet) 500 mg PO Q12H [facility] Stop: 06/27/24 08:59 Last Admin: 06/21/24 08:56 Dose: 500 mg Atorvastatin Calcium (Atorvastatin Calcium 20 Mg Tablet) 20 mg PO BEDTIME [facility] Last Admin: 06/20/24 20:34 Dose: 20 mg Divalproex Sodium (Divalproex Sodium Sprinkles 125 Mg ) 500 mg PO BID [facility] Last Admin: 06/21/24 08:55 Dose: 500 mg Donepezil HCl (Donepezil Hcl 5 Mg Tablet) 5 mg PO BEDTIME [facility] Last Admin: 06/20/24 20:34 Dose: 5 mg Fluticasone Propionate (Fluticasone Propionate Nasal 16 Gm [place]) 2 spray NOSTRIL-B DAILY [facility] Last Admin: 06/21/24 08:55 Dose: 2 spray Levothyroxine Sodium (Levothyroxine Sodium 75 Mcg Tablet) 75 mcg PO DAILY@0600 [facility] Last Admin: 06/21/24 05:53 Dose: 75 mcg Lorazepam (Lorazepam 0.5 Mg Tablet) 0.5 mg PO Q8H PRN PRN Reason: Anxiety Last Admin: 06/12/24 23:51 Dose: 0.5 mg Magnesium Hydroxide (Milk Of Magnesia 30 Ml Oral.Susp) 30 ml PO DAILY PRN PRN Reason: Constipation Olanzapine (Olanzapine 2.5 Mg Tablet) 2.5 mg PO BID [facility] Last Admin: 06/21/24 08:57 Dose: 2.5 mg Omeprazole (Omeprazole 20 Mg Capsule.Dr) 20 mg PO DAILY@0630 [facility] Last Admin: 06/21/24 05:53 Dose: 20 mg Oxybutynin Chloride (Oxybutynin Chloride Er 5 Mg Tab.Er.24) 15 mg PO DAILY [facility] Last Admin: 06/21/24 08:57 Dose: 15 mg Timolol Maleate (Timolol Maleate 0.5 % Oph Peg 5 Ml Drbtl) 1 drop EYE-BOTH BID [facility] Last Admin: 06/21/24 08:55 Dose: 1 drop Trazodone HCl (Trazodone Hcl 50 Mg Tablet) 50 mg PO BEDTIME MRX1 PRN PRN Reason: Insomnia Last Admin: 06/21/24 01:15 Dose: 50 mg Vitamin D (Cholecalciferol (Vitamin D3) 25 Mcg Tablet) 50 mcg PO DAILY [facility] Last Admin: 06/21/24 08:56 Dose: 50 mcg Allergies Allergies Allergy/AdvReac Type Severity Reaction Status Date / Time sulfamethoxazole Allergy Unknown Verified 03/03/24 14:32 [From Sulfamethoxazole-Trimethoprim] trimethoprim Allergy Unknown Verified 03/03/24 14:32 [From Sulfamethoxazole-Trimethoprim] Assessment & Plan Assessment & Plan (1) 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 Mascorro is an 79 year-old woman with hx of dementia, advanced stages. She was initially admitted to S1 for management of combative and impulsive behaviors secondary to dementia. She was stabilized on combination of depakote, olanzapine. She had episode of brief change in mental status. No VS abnormalities. She was transferred to medical floor for work up of TIA vs stroke, which was negative. Pt transferred back to continue medication management and stabilization and placement. PLAN 06/09 continue tx. awaiting placement. This magazine writer completed [employer] for conservatorship on 06/08. HCP is affirmed. 06/13 continue tx. 06/14 continue tx 06/15 continue tx. 06/16 continue tx. 06/17 continue tx. 06/18 continue tx. 06/19 continue tx. 06/20 hyponatremic; fluids held today; will get labs again Patient educated on: diagnosis and medical condition Informed Consent: does not understand Reason for continued inpatient stay Substantial Risk for: inability to function Time Spent With Patient Time: Total time managing care of this patient today ____ minutes.
--- NOTE | 2024-06-21 17:54 | HO.PSYCHPN ---
Subjective Subjective Date of Service: 06/21/24 Reason For Visit: Combative Behaviors Interim History: Met with patient; discussed with team no change in presentation; mutters but investigative writer cannot understand; shoos investigative writer away. Mental Status Exam Mental Status Exam Narrative: Appearance: casually groomed ambulating with walker. Behavior: calm Psychomotor: no agitation or retardation noted Speech: mumbles, regular high pitch tone, spontaneous TP: concrete TC: ot clear Mood:ok Affect:calm, congruent SI: none HI: none VH/AH: no overt signs Delusions: none noted Insight/judgment: impaired x 2 Memory/cog: alert, not oriented to place, month or year nor situation. severe impairment in memory and cognition. Diagnostics Vital Signs (24Hr): Vital Signs - 24 hr 06/20/24 20:00 06/21/24 08:00 Temperature 98.2 F 97.3 F Pulse Rate 69 57 Respiratory Rate 16 16 Blood Pressure 138/69 138/62 Pulse Oximetry 93 97 Oxygen Delivery Method Room Air Room Air BMI result Body Mass Index 19.6 Labs 06/19/24 17:17 06/22/24 11:33 Labs: Laboratory Results - last 48 hr 06/19/24 06/20/24 19:48 19:09 Sodium 129 L Potassium 4.6 Chloride 98 Carbon Dioxide 25 Anion Gap 11 L BUN 15 Creatinine 0.86 Estim Creat Clear Calc 44.0 Estimated GFR > 60 Random Glucose 94 Calcium 8.4 Valproic Acid 57.1 Medications Medications Current Medications Acetaminophen (Acetaminophen 325 Mg Tablet) 650 mg PO Q6H PRN PRN Reason: Headache/Pain, Scale 1-10 Last Admin: 06/11/24 00:27 Dose: 650 mg Al Hydroxide/Mg Hydroxide (Magnesium Hydrox/Alum Hydrox 30 Ml Oral.Susp) 30 ml PO Q6H PRN PRN Reason: Heartburn/Nausea Amoxicillin/Clavulanate Potassium (Amoxicillin/Potassium Clav 500 Mg Tablet) 500 mg PO Q12H [facility] Stop: 06/27/24 08:59 Last Admin: 06/21/24 08:56 Dose: 500 mg Atorvastatin Calcium (Atorvastatin Calcium 20 Mg Tablet) 20 mg PO BEDTIME [facility] Last Admin: 06/20/24 20:34 Dose: 20 mg Divalproex Sodium (Divalproex Sodium Sprinkles 125 Mg ) 500 mg PO BID [facility] Last Admin: 06/21/24 08:55 Dose: 500 mg Donepezil HCl (Donepezil Hcl 5 Mg Tablet) 5 mg PO BEDTIME [facility] Last Admin: 06/20/24 20:34 Dose: 5 mg Fluticasone Propionate (Fluticasone Propionate Nasal 16 Gm [place]) 2 spray NOSTRIL-B DAILY [facility] Last Admin: 06/21/24 08:55 Dose: 2 spray Levothyroxine Sodium (Levothyroxine Sodium 75 Mcg Tablet) 75 mcg PO DAILY@0600 [facility] Last Admin: 06/21/24 05:53 Dose: 75 mcg Lorazepam (Lorazepam 0.5 Mg Tablet) 0.5 mg PO Q8H PRN PRN Reason: Anxiety Last Admin: 06/12/24 23:51 Dose: 0.5 mg Magnesium Hydroxide (Milk Of Magnesia 30 Ml Oral.Susp) 30 ml PO DAILY PRN PRN Reason: Constipation Olanzapine (Olanzapine 2.5 Mg Tablet) 2.5 mg PO BID [facility] Last Admin: 06/21/24 08:57 Dose: 2.5 mg Omeprazole (Omeprazole 20 Mg Capsule.Dr) 20 mg PO DAILY@0630 [facility] Last Admin: 06/21/24 05:53 Dose: 20 mg Oxybutynin Chloride (Oxybutynin Chloride Er 5 Mg Tab.Er.24) 15 mg PO DAILY [facility] Last Admin: 06/21/24 08:57 Dose: 15 mg Timolol Maleate (Timolol Maleate 0.5 % Oph Peg 5 Ml Drbtl) 1 drop EYE-BOTH BID [facility] Last Admin: 06/21/24 08:55 Dose: 1 drop Trazodone HCl (Trazodone Hcl 50 Mg Tablet) 50 mg PO BEDTIME MRX1 PRN PRN Reason: Insomnia Last Admin: 06/21/24 01:15 Dose: 50 mg Vitamin D (Cholecalciferol (Vitamin D3) 25 Mcg Tablet) 50 mcg PO DAILY [facility] Last Admin: 06/21/24 08:56 Dose: 50 mcg Allergies Allergies Allergy/AdvReac Type Severity Reaction Status Date / Time sulfamethoxazole Allergy Unknown Verified 03/03/24 14:32 [From Sulfamethoxazole-Trimethoprim] trimethoprim Allergy Unknown Verified 03/03/24 14:32 [From Sulfamethoxazole-Trimethoprim] Assessment & Plan Assessment & Plan (1) 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 Mascorro is an 79 year-old woman with hx of dementia, advanced stages. She was initially admitted to S1 for management of combative and impulsive behaviors secondary to dementia. She was stabilized on combination of depakote, olanzapine. She had episode of brief change in mental status. No VS abnormalities. She was transferred to medical floor for work up of TIA vs stroke, which was negative. Pt transferred back to continue medication management and stabilization and placement. PLAN 06/09 continue tx. awaiting placement. This investigative writer completed [employer] for conservatorship on 06/08. HCP is affirmed. 06/13 continue tx. 06/14 continue tx 06/15 continue tx. 06/16 continue tx. 06/17 continue tx. 06/18 continue tx. 06/19 continue tx. 06/20 hyponatremic; fluids held today; will get labs again 06/21 still hyponatremic; will get consult Patient educated on: diagnosis Informed Consent: does not understand Reason for continued inpatient stay Substantial Risk for: inability to function Time Spent With Patient Time: Total time managing care of this patient today ____ minutes.
--- NOTE | 2024-06-21 18:55 | P.EN_ITS ---
Event Note Date of Service: 06/21/24 Event Note: Received repeat consultation for hyponatremia. Sodium remains 129, urine sodium normal, urine osmolality slightly low. Patient's Depakote was increased to 250 3 times daily from twice daily. Reviewed with Dr. Coleman med by, phone and messaging indicated the culprit might be patient's Depakote. Protect her L when he was going to be holding the dose as he is not sure patient requires antiseizure medication. Labs will be rechecked in the a.m.. We will be foll owing up on this in the morning on 06/22/2024. This case was reviewed with Dr. Anguiano the current attending. Time Spent With Patient Time: Total time managing care of this patient today ____ minutes.
[2024-06-21 20:00] VITALS: BP 118/57; PULSE 65; RESP 16; TEMP 36.2; O2SAT 94
[2024-06-21] MEDS: Donepezil HCl 5 MG TABLET PO (21:10)
[2024-06-21] MEDS: Atorvastatin Calcium 20 MG TABLET PO (21:10)
[2024-06-22] MEDS: Levothyroxine Sodium 75 MCG TABLET PO (06:05)
[2024-06-22] MEDS: Omeprazole 20 MG CAPSULE.DR PO (06:05)
[2024-06-22 08:00] VITALS: BP 136/72; PULSE 58; RESP 16; TEMP 36.6; O2SAT 94
[2024-06-22] MEDS: OLANZapine 2.5 MG TABLET PO ×2 (08:26→20:04)
[2024-06-22] MEDS: Cholecalciferol (Vitamin D3) 25 MCG TABLET 50 MCG PO (08:26)
[2024-06-22] MEDS: Amoxicillin/Potassium Clav 500 MG TABLET PO ×2 (08:26→20:04)
[2024-06-22] MEDS: oxyBUTYnin chloride ER 5 MG TAB.ER.24 15 MG PO (08:26)
[2024-06-22] MEDS: Fluticasone Propionate Nasal 16 GM SPRAY 2 SPRAY NOSTRIL-B (08:27)
[2024-06-22] MEDS: timoloL maleate 0.5 % Oph Sol 5 ML DRBTL 1 DROP EYE-BOTH ×2 (08:27→20:05)
[2024-06-22] MEDS: Divalproex Sodium Sprinkles 125 MG CAP.DR.SPR 500 MG PO (08:27)
--- NOTE | 2024-06-22 10:50 | P.PNPSI_ITS ---
Subjective Subjective Date of Service: 06/22/24 Reason For Visit: Combative Behaviors Subjective Notes: Conditional Voluntary Healthcare Proxy: Yes Interim History: Pt with hyponatremia on 06/20. Seen by hospitalist, no further recommendation. Follow up labs today, show normal sodium. Possibility of depakote being culprit which would be dose dependent. She also had another episode that seemed like seizure like activity. She finally had eeg which showed Mildly abnormal electroencephalogram suggestive of right hemispheric structural dysfunction, but no evidence of seizure disorder. Repeat labs today also showed elevated ammonia 77, given lactulose, continue to monitor. This is the first time ammonia comes back high after starting depakote. She slept through the night. She is taking medications as prescribed. She asks when will she be going home. Review of Systems Review of Systems No fever, chills or weakness No chest pain, palpitation No shortness of breath or coughing No abdominal pain, nausea or vomiting Mental Status Exam Mental Status Exam Narrative: Appearance: casually groomed ambulating with walker. Behavior: calm Psychomotor: no agitation or retardation noted Speech: mumbles, regular high pitch tone, spontaneous TP: concrete TC: wanting to go home Mood:ok Affect:calm, congruent SI: none HI: none VH/AH: no overt signs Delusions: none noted Insight/judgment: impaired x 2 Memory/cog: alert, not oriented to place, month or year nor situation. severe impairment in memory and cognition. Diagnostics Vital Signs (24Hr): Vital Signs - 24 hr 06/21/24 20:00 06/22/24 08:00 Temperature 97.2 F 97.8 F Pulse Rate 65 58 Respiratory Rate 16 16 Blood Pressure 118/57 L 136/72 Pulse Oximetry 94 94 Oxygen Delivery Method Room Air Room Air BMI result Body Mass Index 19.6 Labs 06/19/24 17:17 06/22/24 11:33 Labs: Laboratory Results - last 48 hr 06/20/24 19:09 Sodium 129 L Potassium 4.6 Chloride 98 Carbon Dioxide 25 Anion Gap 11 L BUN 15 Creatinine 0.86 Estim Creat Clear Calc 44.0 Estimated GFR > 60 Random Glucose 94 Calcium 8.4 Medications Medications Current Medications Acetaminophen (Acetaminophen 325 Mg Tablet) 650 mg PO Q6H PRN PRN Reason: Headache/Pain, Scale 1-10 Last Admin: 06/11/24 00:27 Dose: 650 mg Al Hydroxide/Mg Hydroxide (Magnesium Hydrox/Alum Hydrox 30 Ml Oral.Susp) 30 ml PO Q6H PRN PRN Reason: Heartburn/Nausea Amoxicillin/Clavulanate Potassium (Amoxicillin/Potassium Clav 500 Mg Tablet) 500 mg PO Q12H [facility] Stop: 06/27/24 08:59 Last Admin: 06/22/24 08:26 Dose: 500 mg Atorvastatin Calcium (Atorvastatin Calcium 20 Mg Tablet) 20 mg PO BEDTIME [facility] Last Admin: 06/21/24 21:10 Dose: 20 mg Divalproex Sodium (Divalproex Sodium Sprinkles 125 Mg Cap.) 500 mg PO BID [facility] Last Admin: 06/22/24 08:27 Dose: 500 mg Donepezil HCl (Donepezil Hcl 5 Mg Tablet) 5 mg PO BEDTIME [facility] Last Admin: 06/21/24 21:10 Dose: 5 mg Fluticasone Propionate (Fluticasone Propionate Nasal 16 Gm [place]) 2 spray NOSTRIL-B DAILY [facility] Last Admin: 06/22/24 08:27 Dose: 2 spray Levothyroxine Sodium (Levothyroxine Sodium 75 Mcg Tablet) 75 mcg PO DAILY@0600 [facility] Last Admin: 06/22/24 06:05 Dose: 75 mcg Magnesium Hydroxide (Milk Of Magnesia 30 Ml Oral.Susp) 30 ml PO DAILY PRN PRN Reason: Constipation Olanzapine (Olanzapine 2.5 Mg Tablet) 2.5 mg PO BID [facility] Last Admin: 06/22/24 08:26 Dose: 2.5 mg Omeprazole (Omeprazole 20 Mg Capsule.Dr) 20 mg PO DAILY@0630 [facility] Last Admin: 06/22/24 06:05 Dose: 20 mg Oxybutynin Chloride (Oxybutynin Chloride Er 5 Mg Tab.Er.24) 15 mg PO DAILY [facility] Last Admin: 06/22/24 08:26 Dose: 15 mg Timolol Maleate (Timolol Maleate 0.5 % Oph Peg 5 Ml Drbtl) 1 drop EYE-BOTH BID [facility] Last Admin: 06/22/24 08:27 Dose: 1 drop Trazodone HCl (Trazodone Hcl 50 Mg Tablet) 50 mg PO BEDTIME MRX1 PRN PRN Reason: Insomnia Last Admin: 06/21/24 21:10 Dose: 50 mg Vitamin D (Cholecalciferol (Vitamin D3) 25 Mcg Tablet) 50 mcg PO DAILY [facility] Last Admin: 06/22/24 08:26 Dose: 50 mcg Allergies Allergies Allergy/AdvReac Type Severity Reaction Status Date / Time sulfamethoxazole Allergy Unknown Verified 03/03/24 14:32 [From Sulfamethoxazole-Trimethoprim] trimethoprim Allergy Unknown Verified 03/03/24 14:32 [From Sulfamethoxazole-Trimethoprim] Assessment & Plan Assessment & Plan (1) 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 Mascorro is an 79 year-old woman with hx of dementia, advanced stages. She was initially admitted to S1 for management of combative and impulsive behaviors secondary to dementia. She was stabilized on combination of depakote, olanzapine. She had episode of brief change in mental status. No VS abnormalities. She was transferred to medical floor for work up of TIA vs stroke, which was negative. Pt transferred back to continue medication management and stabilization and placement. PLAN 06/09 continue tx. awaiting placement. This insurance writer completed [employer] for conservatorship on 06/08. HCP is affirmed. 06/13 continue tx. 06/14 continue tx 06/15 continue tx. 06/16 continue tx. 06/17 continue tx. 06/18 continue tx. 06/19 continue tx. 06/20 hyponatremic; fluids held today; will get labs again 06/22 repeat cmp showed normal sodium, but elevated ammonia 77. gave lactulose 20mg po BID, will recheck tomorrow. depakote lowered to 250mg po BID. Reason for continued inpatient stay Substantial Risk for: inability to function Time Spent With Patient Time: Total time managing care of this patient today ____ minutes.
[2024-06-22 11:52] LABS: Ammonia 77 umol/L (13-55)
[2024-06-22 12:01] LABS: Alanine Aminotransferase 10 U/L (0-31); Alkaline Phosphatase 84 U/L (39-117); Anion Gap 12 (12-20); Aspartate Amino Transferase 27 U/L (5-31); Bilirubin Total 0.4 mg/dL (0.0-1.0); Blood Urea Nitrogen 14 mg/dL (9-16); Calcium 8.4 mg/dL (8.4-10.2); Carbon Dioxide 29 mmol/L (22-29); Chloride 99 mmol/L (96-108); Creatinine Clr Calc Pharmacy 47.9; Estimated Glomerular Filt Rate > 60; Glucose Random 99 mg/dL (60-115); Potassium 4.7 mmol/L (3.3-5.1); Sodium 135 mmol/L (135-145); Total Protein 5.4 g/dL (6.5-8.0)
[2024-06-22 12:26] LABS: TSH reflex Free T4 1.37 uIU/mL (0.32-4.0)
[2024-06-22] MEDS: Lactulose 20 GM/30 ML SOLUTION PO ×2 (15:13→20:05)
[2024-06-22 19:58] VITALS: BP 148/74; PULSE 78; RESP 18; TEMP 36.2; O2SAT 96
[2024-06-22] MEDS: Donepezil HCl 5 MG TABLET PO (20:04)
[2024-06-22] MEDS: Divalproex Sodium Sprinkles 125 MG CAP.DR.SPR 250 MG PO (20:04)
[2024-06-22] MEDS: Atorvastatin Calcium 20 MG TABLET PO (20:04)
[2024-06-22] MEDS: traZODone HCL 50 MG TABLET PO (20:04)
[2024-06-23] MEDS: Omeprazole 20 MG CAPSULE.DR PO (05:43)
[2024-06-23] MEDS: Levothyroxine Sodium 75 MCG TABLET PO (05:43)
[2024-06-23 08:00] VITALS: BP 153/72; PULSE 68; RESP 18; TEMP 2.4; TEMP 36.3; O2SAT 93
[2024-06-23] MEDS: timoloL maleate 0.5 % Oph Sol 5 ML DRBTL 1 DROP EYE-BOTH ×2 (08:50→20:16)
[2024-06-23] MEDS: Fluticasone Propionate Nasal 16 GM SPRAY 2 SPRAY NOSTRIL-B (08:50)
[2024-06-23] MEDS: OLANZapine 2.5 MG TABLET PO ×2 (08:51→19:52)
[2024-06-23] MEDS: oxyBUTYnin chloride ER 5 MG TAB.ER.24 15 MG PO (08:51)
[2024-06-23] MEDS: Cholecalciferol (Vitamin D3) 25 MCG TABLET 50 MCG PO (08:51)
[2024-06-23] MEDS: Lactulose 20 GM/30 ML SOLUTION PO ×2 (08:51→19:52)
[2024-06-23] MEDS: Amoxicillin/Potassium Clav 500 MG TABLET PO ×2 (08:51→19:52)
[2024-06-23] MEDS: Divalproex Sodium Sprinkles 125 MG CAP.DR.SPR 250 MG PO ×2 (08:51→19:52)
[2024-06-23 09:24] LABS: Ammonia 56 umol/L (13-55)
--- NOTE | 2024-06-23 16:43 | P.PNPSI_ITS ---
Subjective Subjective Date of Service: 06/23/24 Reason For Visit: Combative Behaviors Subjective Notes: Conditional Voluntary Healthcare Proxy: Yes Interim History: Pt slept through the night. Ammonia 56 today, down from 77. on lactulose. will continue to monitor. Pt visible on the unit, eating well. No behavioral concerns. Diagnostics Vital Signs (24Hr): Vital Signs - 24 hr 06/22/24 19:58 06/23/24 08:00 Temperature 97.1 F 36.3 F L Pulse Rate 78 68 Respiratory Rate 18 18 Blood Pressure 148/74 H 153/72 H Pulse Oximetry 96 93 Oxygen Delivery Method Room Air Room Air BMI result Body Mass Index 20.0 Labs 06/19/24 17:17 06/22/24 11:33 Labs: Laboratory Results - last 48 hr 06/22/24 06/23/24 11:33 09:02 Sodium 135 Potassium 4.7 Chloride 99 Carbon Dioxide 29 Anion Gap 12 BUN 14 Creatinine 0.79 Estim Creat Clear Calc 47.9 Estimated GFR > 60 Random Glucose 99 Calcium 8.4 Total Bilirubin 0.4 AST 27 ALT 10 Alkaline Phosphatase 84 Ammonia 77 H 56 H Total Protein 5.4 L Albumin 3.0 L TSH 1.37 Medications Medications Current Medications Acetaminophen (Acetaminophen 325 Mg Tablet) 650 mg PO Q6H PRN PRN Reason: Headache/Pain, Scale 1-10 Last Admin: 06/11/24 00:27 Dose: 650 mg Al Hydroxide/Mg Hydroxide (Magnesium Hydrox/Alum Hydrox 30 Ml Oral.Susp) 30 ml PO Q6H PRN PRN Reason: Heartburn/Nausea Amoxicillin/Clavulanate Potassium (Amoxicillin/Potassium Clav 500 Mg Tablet) 500 mg PO Q12H [facility] Stop: 06/27/24 08:59 Last Admin: 06/23/24 08:51 Dose: 500 mg Atorvastatin Calcium (Atorvastatin Calcium 20 Mg Tablet) 20 mg PO BEDTIME [facility] Last Admin: 06/22/24 20:04 Dose: 20 mg Divalproex Sodium (Divalproex Sodium Sprinkles 125 Mg ) 250 mg PO BID [facility] Last Admin: 06/23/24 08:51 Dose: 250 mg Donepezil HCl (Donepezil Hcl 5 Mg Tablet) 5 mg PO BEDTIME [facility] Last Admin: 06/22/24 20:04 Dose: 5 mg Fluticasone Propionate (Fluticasone Propionate Nasal 16 Gm [place]) 2 spray NOSTRIL-B DAILY [facility] Last Admin: 06/23/24 08:50 Dose: 2 spray Lactulose (Lactulose 20 Gm/30 Ml Solution) 20 gm PO BID [facility] Last Admin: 06/23/24 08:51 Dose: 20 gm Levothyroxine Sodium (Levothyroxine Sodium 75 Mcg Tablet) 75 mcg PO DAILY@0600 [facility] Last Admin: 06/23/24 05:43 Dose: 75 mcg Lorazepam (Lorazepam 0.5 Mg Tablet) 0.5 mg PO Q8H PRN PRN Reason: severe anxiety Magnesium Hydroxide (Milk Of Magnesia 30 Ml Oral.Susp) 30 ml PO DAILY PRN PRN Reason: Constipation Olanzapine (Olanzapine 2.5 Mg Tablet) 2.5 mg PO BID [facility] Last Admin: 06/23/24 08:51 Dose: 2.5 mg Omeprazole (Omeprazole 20 Mg Capsule.Dr) 20 mg PO DAILY@0630 [facility] Last Admin: 06/23/24 05:43 Dose: 20 mg Oxybutynin Chloride (Oxybutynin Chloride Er 5 Mg Tab.Er.24) 15 mg PO DAILY [facility] Last Admin: 06/23/24 08:51 Dose: 15 mg Timolol Maleate (Timolol Maleate 0.5 % Oph Peg 5 Ml Drbtl) 1 drop EYE-BOTH BID [facility] Last Admin: 06/23/24 08:50 Dose: 1 drop Trazodone HCl (Trazodone Hcl 50 Mg Tablet) 50 mg PO BEDTIME MRX1 PRN PRN Reason: Insomnia Last Admin: 06/22/24 20:04 Dose: 50 mg Vitamin D (Cholecalciferol (Vitamin D3) 25 Mcg Tablet) 50 mcg PO DAILY [facility] Last Admin: 06/23/24 08:51 Dose: 50 mcg Allergies Allergies Allergy/AdvReac Type Severity Reaction Status Date / Time sulfamethoxazole Allergy Unknown Verified 03/03/24 14:32 [From Sulfamethoxazole-Trimethoprim] trimethoprim Allergy Unknown Verified 03/03/24 14:32 [From Sulfamethoxazole-Trimethoprim] Assessment & Plan Assessment & Plan (1) 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 Mascorro is an 79 year-old woman with hx of dementia, advanced stages. She was initially admitted to S1 for management of combative and impulsive behaviors secondary to dementia. She was stabilized on combination of depakote, olanzapine. She had episode of brief change in mental status. No VS abnormalities. She was transferred to medical floor for work up of TIA vs stroke, which was negative. Pt transferred back to continue medication management and stabilization and placement. PLAN 06/09 continue tx. awaiting placement. This functional tester typewriters completed [employer] for conservatorship on 06/08. HCP is affirmed. 06/13 continue tx. 06/14 continue tx 06/15 continue tx. 06/16 continue tx. 06/17 continue tx. 06/18 continue tx. 06/19 continue tx. 06/20 hyponatremic; fluids held today; will get labs again 06/22 repeat cmp showed normal sodium, but elevated ammonia 77. gave lactulose 20mg po BID, will recheck tomorrow. depakote lowered to 250mg po BID. 06/23 ammonia down 56, continue to monitor. Reason for continued inpatient stay Substantial Risk for: inability to function Time Spent With Patient Time: Total time managing care of this patient today ____ minutes.
[2024-06-23 19:47] VITALS: BP 135/72; PULSE 73; RESP 16; TEMP 37; O2SAT 93
[2024-06-23] MEDS: Donepezil HCl 5 MG TABLET PO (19:51)
[2024-06-23] MEDS: Atorvastatin Calcium 20 MG TABLET PO (19:52)
[2024-06-23] MEDS: traZODone HCL 50 MG TABLET PO (23:47)
[2024-06-23] MEDS: LORazepam 0.5 MG TABLET PO (23:47)
[2024-06-24] MEDS: Levothyroxine Sodium 75 MCG TABLET PO (05:05)
[2024-06-24] MEDS: Omeprazole 20 MG CAPSULE.DR PO (05:30)
[2024-06-24 08:00] VITALS: BP 126/70; PULSE 78; RESP 18; TEMP 36.6; O2SAT 96
[2024-06-24] MEDS: oxyBUTYnin chloride ER 5 MG TAB.ER.24 15 MG PO (10:11)
[2024-06-24] MEDS: timoloL maleate 0.5 % Oph Sol 5 ML DRBTL 1 DROP EYE-BOTH ×2 (10:11→20:05)
[2024-06-24] MEDS: Amoxicillin/Potassium Clav 500 MG TABLET PO ×2 (10:11→19:59)
[2024-06-24] MEDS: Fluticasone Propionate Nasal 16 GM SPRAY 2 SPRAY NOSTRIL-B (10:11)
[2024-06-24] MEDS: Lactulose 20 GM/30 ML SOLUTION PO (10:11)
[2024-06-24] MEDS: Divalproex Sodium Sprinkles 125 MG CAP.DR.SPR 250 MG PO ×2 (10:12→19:59)
[2024-06-24] MEDS: OLANZapine 2.5 MG TABLET PO ×2 (10:12→19:59)
[2024-06-24] MEDS: Cholecalciferol (Vitamin D3) 25 MCG TABLET 50 MCG PO (10:12)
[2024-06-24 11:57] LABS: Ammonia 33 umol/L (13-55)
--- NOTE | 2024-06-24 12:35 | P.PNPSI_ITS ---
Subjective Subjective Date of Service: 06/24/24 Reason For Visit: Combative Behaviors Subjective Notes: Conditional Voluntary Interim History: Pt slept through the night. Ammonia on 06/24 wnl 33. d/c lactulose. Pt visible on the unit, eating well. No behavioral concerns. Review of Systems Review of Systems No fever, chills or weakness No chest pain, palpitation No shortness of breath or coughing No abdominal pain, nausea or vomiting Mental Status Exam Mental Status Exam Narrative: Appearance: casually groomed ambulating with walker. Behavior: calm Psychomotor: no agitation or retardation noted Speech: mumbles, regular high pitch tone, spontaneous TP: concrete TC: wanting to go home Mood:ok Affect:calm, congruent SI: none HI: none VH/AH: no overt signs Delusions: none noted Insight/judgment: impaired x 2 Memory/cog: alert, not oriented to place, month or year nor situation. severe impairment in memory and cognition. Diagnostics Vital Signs (24Hr): Vital Signs - 24 hr 06/23/24 19:47 Temperature 98.6 F Pulse Rate 73 Respiratory Rate 16 Blood Pressure 135/72 Pulse Oximetry 93 Oxygen Delivery Method Room Air BMI result Body Mass Index 20.0 Labs 06/19/24 17:17 06/22/24 11:33 Labs: Laboratory Results - last 48 hr 06/23/24 06/24/24 09:02 11:43 Ammonia 56 H 33 Medications Medications Current Medications Acetaminophen (Acetaminophen 325 Mg Tablet) 650 mg PO Q6H PRN PRN Reason: Headache/Pain, Scale 1-10 Last Admin: 06/11/24 00:27 Dose: 650 mg Al Hydroxide/Mg Hydroxide (Magnesium Hydrox/Alum Hydrox 30 Ml Oral.Susp) 30 ml PO Q6H PRN PRN Reason: Heartburn/Nausea Amoxicillin/Clavulanate Potassium (Amoxicillin/Potassium Clav 500 Mg Tablet) 500 mg PO Q12H [facility] Stop: 06/27/24 08:59 Last Admin: 06/24/24 10:11 Dose: 500 mg Atorvastatin Calcium (Atorvastatin Calcium 20 Mg Tablet) 20 mg PO BEDTIME [facility] Last Admin: 06/23/24 19:52 Dose: 20 mg Divalproex Sodium (Divalproex Sodium Sprinkles 125 Mg ) 250 mg PO BID [facility] Last Admin: 06/24/24 10:12 Dose: 250 mg Donepezil HCl (Donepezil Hcl 5 Mg Tablet) 5 mg PO BEDTIME [facility] Last Admin: 06/23/24 19:51 Dose: 5 mg Fluticasone Propionate (Fluticasone Propionate Nasal 16 Gm [place]) 2 spray NOSTRIL-B DAILY [facility] Last Admin: 06/24/24 10:11 Dose: 2 spray Lactulose (Lactulose 20 Gm/30 Ml Solution) 20 gm PO BID [facility] Last Admin: 06/24/24 10:11 Dose: 20 gm Levothyroxine Sodium (Levothyroxine Sodium 75 Mcg Tablet) 75 mcg PO DAILY@0600 [facility] Last Admin: 06/24/24 05:05 Dose: 75 mcg Lorazepam (Lorazepam 0.5 Mg Tablet) 0.5 mg PO Q8H PRN PRN Reason: severe anxiety Last Admin: 06/23/24 23:47 Dose: 0.5 mg Magnesium Hydroxide (Milk Of Magnesia 30 Ml Oral.Susp) 30 ml PO DAILY PRN PRN Reason: Constipation Olanzapine (Olanzapine 2.5 Mg Tablet) 2.5 mg PO BID [facility] Last Admin: 06/24/24 10:12 Dose: 2.5 mg Omeprazole (Omeprazole 20 Mg Capsule.Dr) 20 mg PO DAILY@0630 [facility] Last Admin: 06/24/24 05:30 Dose: 20 mg Oxybutynin Chloride (Oxybutynin Chloride Er 5 Mg Tab.Er.24) 15 mg PO DAILY [facility] Last Admin: 06/24/24 10:11 Dose: 15 mg Timolol Maleate (Timolol Maleate 0.5 % Oph Peg 5 Ml Drbtl) 1 drop EYE-BOTH BID [facility] Last Admin: 06/24/24 10:11 Dose: 1 drop Trazodone HCl (Trazodone Hcl 50 Mg Tablet) 50 mg PO BEDTIME MRX1 PRN PRN Reason: Insomnia Last Admin: 06/23/24 23:47 Dose: 50 mg Vitamin D (Cholecalciferol (Vitamin D3) 25 Mcg Tablet) 50 mcg PO DAILY [facility] Last Admin: 06/24/24 10:12 Dose: 50 mcg Allergies Allergies Allergy/AdvReac Type Severity Reaction Status Date / Time sulfamethoxazole Allergy Unknown Verified 03/03/24 14:32 [From Sulfamethoxazole-Trimethoprim] trimethoprim Allergy Unknown Verified 03/03/24 14:32 [From Sulfamethoxazole-Trimethoprim] Assessment & Plan Assessment & Plan (1) 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 Mascorro is an 79 year-old woman with hx of dementia, advanced stages. She was initially admitted to S1 for management of combative and impulsive behaviors secondary to dementia. She was stabilized on combination of depakote, olanzapine. She had episode of brief change in mental status. No VS abnormalities. She was transferred to medical floor for work up of TIA vs stroke, which was negative. Pt transferred back to continue medication management and stabilization and placement. PLAN 06/09 continue tx. awaiting placement. This mortgage loan underwriter completed [employer] for conservatorship on 06/08. HCP is affirmed. 06/13 continue tx. 06/14 continue tx 06/15 continue tx. 06/16 continue tx. 06/17 continue tx. 06/18 continue tx. 06/19 continue tx. 06/20 hyponatremic; fluids held today; will get labs again 06/22 repeat cmp showed normal sodium, but elevated ammonia 77. gave lactulose 20mg po BID, will recheck tomorrow. depakote lowered to 250mg po BID. 06/23 ammonia down 56, continue to monitor. 06/14 ammonia back to normal 33. d/c lactulose. Reason for continued inpatient stay Substantial Risk for: inability to function Time Spent With Patient Time: Total time managing care of this patient today ____ minutes.
[2024-06-24] MEDS: Atorvastatin Calcium 20 MG TABLET PO (19:58)
[2024-06-24] MEDS: Donepezil HCl 5 MG TABLET PO (19:59)
[2024-06-24 20:06] VITALS: BP 116/63; PULSE 73; RESP 16; TEMP 36.6; O2SAT 97
[2024-06-25] MEDS: Levothyroxine Sodium 75 MCG TABLET PO (05:16)
[2024-06-25] MEDS: Omeprazole 20 MG CAPSULE.DR PO (05:37)
[2024-06-25 08:00] VITALS: BP 133/64; PULSE 78; RESP 16; TEMP 36.3; O2SAT 98
[2024-06-25] MEDS: OLANZapine 2.5 MG TABLET PO ×2 (08:02→20:25)
[2024-06-25] MEDS: Amoxicillin/Potassium Clav 500 MG TABLET PO ×2 (08:02→20:25)
[2024-06-25] MEDS: Divalproex Sodium Sprinkles 125 MG CAP.DR.SPR 250 MG PO ×2 (08:02→20:25)
[2024-06-25] MEDS: Cholecalciferol (Vitamin D3) 25 MCG TABLET 50 MCG PO (08:02)
[2024-06-25] MEDS: oxyBUTYnin chloride ER 5 MG TAB.ER.24 15 MG PO (08:02)
[2024-06-25] MEDS: Fluticasone Propionate Nasal 16 GM SPRAY 2 SPRAY NOSTRIL-B (08:12)
[2024-06-25] MEDS: timoloL maleate 0.5 % Oph Sol 5 ML DRBTL 1 DROP EYE-BOTH ×2 (08:13→20:25)
--- NOTE | 2024-06-25 08:41 | P.PNPSI_ITS ---
Subjective Subjective Date of Service: 06/26/24 Reason For Visit: Combative Behaviors Subjective Notes: Conditional Voluntary Healthcare Proxy: Yes Interim History: Pt slept through the night. Pt visible on one to one for fall risk. No behavioral concerns. She is taking medications as prescribed. VS stable. No physical concerns. Review of Systems Review of Systems No fever, chills or weakness No chest pain, palpitation No shortness of breath or coughing No abdominal pain, nausea or vomiting Mental Status Exam Mental Status Exam Narrative: Appearance: casually groomed ambulating with walker. Behavior: calm Psychomotor: no agitation or retardation noted Speech: mumbles, regular high pitch tone, spontaneous TP: concrete TC: wanting to go home Mood:ok Affect:calm, congruent SI: none HI: none VH/AH: no overt signs Delusions: none noted Insight/judgment: impaired x 2 Memory/cog: alert, not oriented to place, month or year nor situation. severe impairment in memory and cognition. Diagnostics Vital Signs (24Hr): Vital Signs - 24 hr 06/24/24 20:06 Temperature 97.9 F Pulse Rate 73 Respiratory Rate 16 Blood Pressure 116/63 Pulse Oximetry 97 Oxygen Delivery Method Room Air BMI result Body Mass Index 20.0 Labs 06/19/24 17:17 06/22/24 11:33 Labs: Laboratory Results - last 48 hr 06/23/24 06/24/24 09:02 11:43 Ammonia 56 H 33 Medications Medications Current Medications Acetaminophen (Acetaminophen 325 Mg Tablet) 650 mg PO Q6H PRN PRN Reason: Headache/Pain, Scale 1-10 Last Admin: 06/11/24 00:27 Dose: 650 mg Al Hydroxide/Mg Hydroxide (Magnesium Hydrox/Alum Hydrox 30 Ml Oral.Susp) 30 ml PO Q6H PRN PRN Reason: Heartburn/Nausea Amoxicillin/Clavulanate Potassium (Amoxicillin/Potassium Clav 500 Mg Tablet) 500 mg PO Q12H [facility] Stop: 06/27/24 08:59 Last Admin: 06/25/24 08:02 Dose: 500 mg Atorvastatin Calcium (Atorvastatin Calcium 20 Mg Tablet) 20 mg PO BEDTIME [facility] Last Admin: 06/24/24 19:58 Dose: 20 mg Divalproex Sodium (Divalproex Sodium Sprinkles 125 Mg ) 250 mg PO BID [facility] Last Admin: 06/25/24 08:02 Dose: 250 mg Donepezil HCl (Donepezil Hcl 5 Mg Tablet) 5 mg PO BEDTIME [facility] Last Admin: 06/24/24 19:59 Dose: 5 mg Fluticasone Propionate (Fluticasone Propionate Nasal 16 Gm [place]) 2 spray NOSTRIL-B DAILY [facility] Last Admin: 06/25/24 08:12 Dose: 2 spray Levothyroxine Sodium (Levothyroxine Sodium 75 Mcg Tablet) 75 mcg PO DAILY@0600 [facility] Last Admin: 06/25/24 05:16 Dose: 75 mcg Lorazepam (Lorazepam 0.5 Mg Tablet) 0.5 mg PO Q8H PRN PRN Reason: severe anxiety Last Admin: 06/23/24 23:47 Dose: 0.5 mg Magnesium Hydroxide (Milk Of Magnesia 30 Ml Oral.Susp) 30 ml PO DAILY PRN PRN Reason: Constipation Olanzapine (Olanzapine 2.5 Mg Tablet) 2.5 mg PO BID [facility] Last Admin: 06/25/24 08:02 Dose: 2.5 mg Omeprazole (Omeprazole 20 Mg Capsule.Dr) 20 mg PO DAILY@0630 [facility] Last Admin: 06/25/24 05:37 Dose: 20 mg Oxybutynin Chloride (Oxybutynin Chloride Er 5 Mg Tab.Er.24) 15 mg PO DAILY [facility] Last Admin: 06/25/24 08:02 Dose: 15 mg Timolol Maleate (Timolol Maleate 0.5 % Oph Peg 5 Ml Drbtl) 1 drop EYE-BOTH BID [facility] Last Admin: 06/25/24 08:13 Dose: 1 drop Trazodone HCl (Trazodone Hcl 50 Mg Tablet) 50 mg PO BEDTIME MRX1 PRN PRN Reason: Insomnia Last Admin: 06/23/24 23:47 Dose: 50 mg Vitamin D (Cholecalciferol (Vitamin D3) 25 Mcg Tablet) 50 mcg PO DAILY [facility] Last Admin: 06/25/24 08:02 Dose: 50 mcg Allergies Allergies Allergy/AdvReac Type Severity Reaction Status Date / Time sulfamethoxazole Allergy Unknown Verified 03/03/24 14:32 [From Sulfamethoxazole-Trimethoprim] trimethoprim Allergy Unknown Verified 03/03/24 14:32 [From Sulfamethoxazole-Trimethoprim] Assessment & Plan Assessment & Plan (1) 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 Mascorro is an 79 year-old woman with hx of dementia, advanced stages. She was initially admitted to S[facility] for management of combative and impulsive behaviors secondary to dementia. She was stabilized on combination of depakote, olanzapine. She had episode of brief change in mental status. No VS abnormalities. She was transferred to medical floor for work up of TIA vs stroke, which was negative. Pt transferred back to continue medication management and stabilization and placement. PLAN 06/09 continue tx. awaiting placement. This board writer completed [email or web address] for conservatorship on 06/08. HCP is affirmed. 06/13 continue tx. 06/14 continue tx 06/15 continue tx. 06/16 continue tx. 06/17 continue tx. 06/18 continue tx. 06/19 continue tx. 06/20 hyponatremic; fluids held today; will get labs again 06/22 repeat cmp showed normal sodium, but elevated ammonia 77. gave lactulose 20mg po BID, will recheck tomorrow. depakote lowered to 250mg po BID. 06/23 ammonia down 56, continue to monitor. 06/14 ammonia back to normal 33. d/c lactulose. Reason for continued inpatient stay Substantial Risk for: inability to function Time Spent With Patient Time: Total time managing care of this patient today ____ minutes.
[2024-06-25 13:55] VITALS: BMI 19.9
[2024-06-25 20:00] VITALS: BP 129/80; PULSE 77; RESP 16; TEMP 37; O2SAT 97
[2024-06-25] MEDS: Atorvastatin Calcium 20 MG TABLET PO (20:25)
[2024-06-25] MEDS: Donepezil HCl 5 MG TABLET PO (20:25)
[2024-06-25] MEDS: traZODone HCL 50 MG TABLET PO (20:25)
[2024-06-26] MEDS: Levothyroxine Sodium 75 MCG TABLET PO (06:18)
[2024-06-26] MEDS: Omeprazole 20 MG CAPSULE.DR PO (06:18)
[2024-06-26] MEDS: Amoxicillin/Potassium Clav 500 MG TABLET PO ×2 (08:40→20:22)
[2024-06-26] MEDS: oxyBUTYnin chloride ER 5 MG TAB.ER.24 15 MG PO (08:40)
[2024-06-26] MEDS: OLANZapine 2.5 MG TABLET PO ×2 (08:41→20:22)
[2024-06-26] MEDS: Divalproex Sodium Sprinkles 125 MG CAP.DR.SPR 250 MG PO ×2 (08:41→20:22)
[2024-06-26] MEDS: Cholecalciferol (Vitamin D3) 25 MCG TABLET 50 MCG PO (08:41)
[2024-06-26 09:00] VITALS: BP 145/63; PULSE 65; RESP 16; TEMP 36.6; O2SAT 95
[2024-06-26] MEDS: Loperamide HCl 2 MG CAPSULE 4 MG PO (10:39)
[2024-06-26] MEDS: timoloL maleate 0.5 % Oph Sol 5 ML DRBTL 1 DROP EYE-BOTH ×2 (10:48→20:58)
[2024-06-26] MEDS: Fluticasone Propionate Nasal 16 GM SPRAY 2 SPRAY NOSTRIL-B (10:48)
--- NOTE | 2024-06-26 14:29 | MHC.CLN ---
NUTRITION DISCUSSED PATIENT WITH NURSING AND PROVIDER. SODIUM NORMAL 06/22. DISCONTINUE FLUID RESTRICTION. DIET CONSISTENCY DOWNGRADED TO PUREE ON 06/21 DUE TO EPISODE OF COUGHING. DIET=REGULAR, PUREE CONSISTENCY. PO INTAKE VARIABLE. RD TO MONITOR WEEKLY.
--- NOTE | 2024-06-26 15:58 | HO.PSYCHPN ---
Subjective Subjective Date of Service: 06/26/24 Reason For Visit: Combative Behaviors Subjective Notes: Conditional Voluntary Healthcare Proxy: Yes Interim History: Pt slept through the night. She had episodes of loose stool, had lactulose 2 days ago and also on augmentin. added loperamide for loose stool, may have to check c.diff if continues loose stools after stopping aumentin. Pt ambulating with walker, no behavioral concerns. Review of Systems Review of Systems No fever, chills or weakness No chest pain, palpitation No shortness of breath or coughing No abdominal pain, nausea or vomiting Mental Status Exam Mental Status Exam Narrative: Appearance: casually groomed lying in bed. Behavior: calm Psychomotor: no agitation or retardation noted Speech: mumbles, regular high pitch tone, spontaneous TP: concrete TC: wanting to go home Mood:ok Affect:calm, congruent SI: none HI: none VH/AH: no overt signs Delusions: none noted Insight/judgment: impaired x 2 Memory/cog: alert, not oriented to place, month or year nor situation. severe impairment in memory and cognition. Diagnostics Vital Signs (24Hr): Vital Signs - 24 hr 06/25/24 20:00 06/26/24 09:00 Temperature 98.6 F 97.9 F Pulse Rate 77 65 Respiratory Rate 16 16 Blood Pressure 129/80 145/63 H Pulse Oximetry 97 95 Oxygen Delivery Method Room Air Room Air BMI result Body Mass Index 19.9 Labs 06/19/24 17:17 06/22/24 11:33 Medications Medications Current Medications Acetaminophen (Acetaminophen 325 Mg Tablet) 650 mg PO Q6H PRN PRN Reason: Headache/Pain, Scale 1-10 Last Admin: 06/11/24 00:27 Dose: 650 mg Al Hydroxide/Mg Hydroxide (Magnesium Hydrox/Alum Hydrox 30 Ml Oral.Susp) 30 ml PO Q6H PRN PRN Reason: Heartburn/Nausea Amoxicillin/Clavulanate Potassium (Amoxicillin/Potassium Clav 500 Mg Tablet) 500 mg PO Q12H [facility] Stop: 06/27/24 08:59 Last Admin: 06/26/24 08:40 Dose: 500 mg Atorvastatin Calcium (Atorvastatin Calcium 20 Mg Tablet) 20 mg PO BEDTIME [facility] Last Admin: 06/25/24 20:25 Dose: 20 mg Divalproex Sodium (Divalproex Sodium Sprinkles 125 Mg Cap.Dr.Spr) 250 mg PO BID [facility] Last Admin: 06/26/24 08:41 Dose: 250 mg Donepezil HCl (Donepezil Hcl 5 Mg Tablet) 5 mg PO BEDTIME [facility] Last Admin: 06/25/24 20:25 Dose: 5 mg Fluticasone Propionate (Fluticasone Propionate Nasal 16 Gm [place]) 2 spray NOSTRIL-B DAILY [facility] Last Admin: 06/26/24 10:48 Dose: 2 spray Levothyroxine Sodium (Levothyroxine Sodium 75 Mcg Tablet) 75 mcg PO DAILY@0600 [facility] Last Admin: 06/26/24 06:18 Dose: 75 mcg Loperamide HCl (Loperamide Hcl 2 Mg Capsule) 2 mg PO Q4H PRN PRN Reason: loose stools Lorazepam (Lorazepam 0.5 Mg Tablet) 0.5 mg PO Q8H PRN PRN Reason: severe anxiety Last Admin: 06/23/24 23:47 Dose: 0.5 mg Magnesium Hydroxide (Milk Of Magnesia 30 Ml Oral.Susp) 30 ml PO DAILY PRN PRN Reason: Constipation Olanzapine (Olanzapine 2.5 Mg Tablet) 2.5 mg PO BID [facility] Last Admin: 06/26/24 08:41 Dose: 2.5 mg Omeprazole (Omeprazole 20 Mg Capsule.) 20 mg PO DAILY@0630 [facility] Last Admin: 06/26/24 06:18 Dose: 20 mg Oxybutynin Chloride (Oxybutynin Chloride Er 5 Mg Tab.Er.24) 15 mg PO DAILY [facility] Last Admin: 06/26/24 08:40 Dose: 15 mg Timolol Maleate (Timolol Maleate 0.5 % Oph Peg 5 Ml Drbtl) 1 drop EYE-BOTH BID [facility] Last Admin: 06/26/24 10:48 Dose: 1 drop Trazodone HCl (Trazodone Hcl 50 Mg Tablet) 50 mg PO BEDTIME MRX1 PRN PRN Reason: Insomnia Last Admin: 06/25/24 20:25 Dose: 50 mg Vitamin D (Cholecalciferol (Vitamin D3) 25 Mcg Tablet) 50 mcg PO DAILY [facility] Last Admin: 06/26/24 08:41 Dose: 50 mcg Allergies Allergies Allergy/AdvReac Type Severity Reaction Status Date / Time sulfamethoxazole Allergy Unknown Verified 03/03/24 14:32 [From Sulfamethoxazole-Trimethoprim] trimethoprim Allergy Unknown Verified 03/03/24 14:32 [From Sulfamethoxazole-Trimethoprim] Assessment & Plan Assessment & Plan (1) 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 Mascorro is an 79 year-old woman with hx of dementia, advanced stages. She was initially admitted to S1 for management of combative and impulsive behaviors secondary to dementia. She was stabilized on combination of depakote, olanzapine. She had episode of brief change in mental status. No VS abnormalities. She was transferred to medical floor for work up of TIA vs stroke, which was negative. Pt transferred back to continue medication management and stabilization and placement. PLAN 06/09 continue tx. awaiting placement. This press writer completed [employer] for conservatorship on 06/08. HCP is affirmed. 06/13 continue tx. 06/14 continue tx 06/15 continue tx. 06/16 continue tx. 06/17 continue tx. 06/18 continue tx. 06/19 continue tx. 06/20 hyponatremic; fluids held today; will get labs again 06/22 repeat cmp showed normal sodium, but elevated ammonia 77. gave lactulose 20mg po BID, will recheck tomorrow. depakote lowered to 250mg po BID. 06/23 ammonia down 56, continue to monitor. 06/25 ammonia back to normal 33. d/c lactulose. 06/26 continue tx. Reason for continued inpatient stay Substantial Risk for: inability to function Time Spent With Patient Time: Total time managing care of this patient today ____ minutes.
[2024-06-26 20:00] VITALS: BP 134/62; PULSE 89; RESP 16; TEMP 36.4; O2SAT 92
[2024-06-26] MEDS: Donepezil HCl 5 MG TABLET PO (20:21)
[2024-06-26] MEDS: Atorvastatin Calcium 20 MG TABLET PO (20:22)
[2024-06-27] MEDS: Levothyroxine Sodium 75 MCG TABLET PO (05:14)
[2024-06-27] MEDS: Omeprazole 20 MG CAPSULE.DR PO (05:50)
[2024-06-27 08:00] VITALS: BP 120/67; PULSE 70; RESP 18; TEMP 36.3; O2SAT 96
[2024-06-27] MEDS: timoloL maleate 0.5 % Oph Sol 5 ML DRBTL 1 DROP EYE-BOTH ×2 (08:39→19:49)
[2024-06-27] MEDS: OLANZapine 2.5 MG TABLET PO ×2 (08:39→19:48)
[2024-06-27] MEDS: Fluticasone Propionate Nasal 16 GM SPRAY 2 SPRAY NOSTRIL-B (08:39)
[2024-06-27] MEDS: oxyBUTYnin chloride ER 5 MG TAB.ER.24 15 MG PO (08:39)
[2024-06-27] MEDS: Cholecalciferol (Vitamin D3) 25 MCG TABLET 50 MCG PO (08:40)
[2024-06-27] MEDS: Divalproex Sodium Sprinkles 125 MG CAP.DR.SPR 250 MG PO ×2 (08:40→19:48)
--- NOTE | 2024-06-27 14:50 | P.PNPSI_ITS ---
Subjective Subjective Date of Service: 06/27/24 Reason For Visit: Combative Behaviors Interim History: on being asked how she is doing, her reply is, as always, good enough to go home. informed to take up dispo planning discussion with JACKIE on saturday. no other complaints or requests. per staff, no changer in presentation. Mental Status Exam Mental Status Exam Narrative: Appearance: casually groomed lying in bed. Behavior: calm Psychomotor: no agitation or retardation noted Speech: mumbles, regular high pitch tone, spontaneous TP: concrete TC: wanting to go home Mood:ok Affect:calm, congruent SI: none HI: none VH/AH: no overt signs Delusions: none noted Insight/judgment: impaired x 2 Memory/cog: alert, not oriented to place, month or year nor situation. severe impairment in memory and cognition. Diagnostics Vital Signs (24Hr): Vital Signs - 24 hr 06/26/24 20:00 06/27/24 08:00 Temperature 97.5 F 97.3 F Pulse Rate 89 70 Respiratory Rate 16 18 Blood Pressure 134/62 120/67 Pulse Oximetry 92 96 Oxygen Delivery Method Room Air Room Air BMI result Body Mass Index 19.9 Labs 06/19/24 17:17 06/22/24 11:33 Medications Medications Current Medications Acetaminophen (Acetaminophen 325 Mg Tablet) 650 mg PO Q6H PRN PRN Reason: Headache/Pain, Scale 1-10 Last Admin: 06/11/24 00:27 Dose: 650 mg Al Hydroxide/Mg Hydroxide (Magnesium Hydrox/Alum Hydrox 30 Ml Oral.Susp) 30 ml PO Q6H PRN PRN Reason: Heartburn/Nausea Atorvastatin Calcium (Atorvastatin Calcium 20 Mg Tablet) 20 mg PO BEDTIME [facility] Last Admin: 06/26/24 20:22 Dose: 20 mg Divalproex Sodium (Divalproex Sodium Sprinkles 125 Mg ) 250 mg PO BID [facility] Last Admin: 06/27/24 08:40 Dose: 250 mg Donepezil HCl (Donepezil Hcl 5 Mg Tablet) 5 mg PO BEDTIME [facility] Last Admin: 06/26/24 20:21 Dose: 5 mg Fluticasone Propionate (Fluticasone Propionate Nasal 16 Gm [place]) 2 spray NOSTRIL-B DAILY [facility] Last Admin: 06/27/24 08:39 Dose: 2 spray Levothyroxine Sodium (Levothyroxine Sodium 75 Mcg Tablet) 75 mcg PO DAILY@0600 [facility] Last Admin: 06/27/24 05:14 Dose: 75 mcg Loperamide HCl (Loperamide Hcl 2 Mg Capsule) 2 mg PO Q4H PRN PRN Reason: loose stools Lorazepam (Lorazepam 0.5 Mg Tablet) 0.5 mg PO Q8H PRN PRN Reason: severe anxiety Last Admin: 06/23/24 23:47 Dose: 0.5 mg Magnesium Hydroxide (Milk Of Magnesia 30 Ml Oral.Susp) 30 ml PO DAILY PRN PRN Reason: Constipation Olanzapine (Olanzapine 2.5 Mg Tablet) 2.5 mg PO BID [facility] Last Admin: 06/27/24 08:39 Dose: 2.5 mg Omeprazole (Omeprazole 20 Mg Capsule.Dr) 20 mg PO DAILY@0630 [facility] Last Admin: 06/27/24 05:50 Dose: 20 mg Oxybutynin Chloride (Oxybutynin Chloride Er 5 Mg Tab.Er.24) 15 mg PO DAILY [facility] Last Admin: 06/27/24 08:39 Dose: 15 mg Timolol Maleate (Timolol Maleate 0.5 % Oph Peg 5 Ml Drbtl) 1 drop EYE-BOTH BID [facility] Last Admin: 06/27/24 08:39 Dose: 1 drop Trazodone HCl (Trazodone Hcl 50 Mg Tablet) 50 mg PO BEDTIME MRX1 PRN PRN Reason: Insomnia Last Admin: 06/25/24 20:25 Dose: 50 mg Vitamin D (Cholecalciferol (Vitamin D3) 25 Mcg Tablet) 50 mcg PO DAILY [facility] Last Admin: 06/27/24 08:40 Dose: 50 mcg Allergies Allergies Allergy/AdvReac Type Severity Reaction Status Date / Time sulfamethoxazole Allergy Unknown Verified 03/03/24 14:32 [From Sulfamethoxazole-Trimethoprim] trimethoprim Allergy Unknown Verified 03/03/24 14:32 [From Sulfamethoxazole-Trimethoprim] Assessment & Plan Assessment & Plan (1) 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 Mascorro is an 79 year-old woman with hx of dementia, advanced stages. She was initially admitted to S1 for management of combative and impulsive behaviors secondary to dementia. She was stabilized on combination of depakote, olanzapine. She had episode of brief change in mental status. No VS abnormalities. She was transferred to medical floor for work up of TIA vs stroke, which was negative. Pt transferred back to continue medication management and stabilization and placement. PLAN 06/09 continue tx. awaiting placement. This lyric writer completed [employer] for conservatorship on 06/08. HCP is affirmed. 06/13 continue tx. 06/14 continue tx 06/15 continue tx. 06/16 continue tx. 06/17 continue tx. 06/18 continue tx. 06/19 continue tx. 06/20 hyponatremic; fluids held today; will get labs again 06/22 repeat cmp showed normal sodium, but elevated ammonia 77. gave lactulose 20mg po BID, will recheck tomorrow. depakote lowered to 250mg po BID. 06/23 ammonia down 56, continue to monitor. 06/14 ammonia back to normal 33. d/c lactulose. 06/27: stable. continue current mgmt. Reason for continued inpatient stay Substantial Risk for: inability to function Time Spent With Patient Time: Total time managing care of this patient today ____ minutes.
[2024-06-27] MEDS: Atorvastatin Calcium 20 MG TABLET PO (19:48)
[2024-06-27] MEDS: Donepezil HCl 5 MG TABLET PO (19:49)
[2024-06-27 20:00] VITALS: BP 126/68; PULSE 69; RESP 16; TEMP 2.8; TEMP 37.1; O2SAT 93
[2024-06-28] MEDS: Levothyroxine Sodium 75 MCG TABLET PO (05:00)
[2024-06-28] MEDS: Omeprazole 20 MG CAPSULE.DR PO (05:36)
[2024-06-28 08:00] VITALS: BP 107/59; PULSE 61; RESP 18; TEMP 36.2; O2SAT 96
[2024-06-28] MEDS: oxyBUTYnin chloride ER 5 MG TAB.ER.24 15 MG PO (08:49)
[2024-06-28] MEDS: Divalproex Sodium Sprinkles 125 MG CAP.DR.SPR 250 MG PO ×2 (08:49→20:29)
[2024-06-28] MEDS: OLANZapine 2.5 MG TABLET PO ×2 (08:49→20:28)
[2024-06-28] MEDS: Cholecalciferol (Vitamin D3) 25 MCG TABLET 50 MCG PO (08:50)
[2024-06-28] MEDS: Fluticasone Propionate Nasal 16 GM SPRAY 2 SPRAY NOSTRIL-B (08:50)
[2024-06-28] MEDS: timoloL maleate 0.5 % Oph Sol 5 ML DRBTL 1 DROP EYE-BOTH ×2 (08:50→20:28)
[2024-06-28 13:00] VITALS: BMI 20.1
--- NOTE | 2024-06-28 14:14 | P.PNPSI_ITS ---
Subjective Subjective Date of Service: 06/28/24 Reason For Visit: Combative Behaviors Interim History: c/o urinary frequency. per staff, this is a well-known problem and is being addressed. no change in presentation, completed antibx course for UTI. Mental Status Exam Mental Status Exam Narrative: Appearance: casually groomed lying in bed. Behavior: calm Psychomotor: no agitation or retardation noted Speech: mumbles, regular high pitch tone, spontaneous TP: concrete TC: wanting to go home Mood:ok Affect:calm, congruent SI: none HI: none VH/AH: no overt signs Delusions: none noted Insight/judgment: impaired x 2 Memory/cog: alert, not oriented to place, month or year nor situation. severe impairment in memory and cognition. Diagnostics Vital Signs (24Hr): Vital Signs - 24 hr 06/27/24 20:00 06/28/24 08:00 Temperature 37.1 F L 97.1 F Pulse Rate 69 61 Respiratory Rate 16 18 Blood Pressure 126/68 107/59 L Pulse Oximetry 93 96 Oxygen Delivery Method Room Air Room Air BMI result Body Mass Index 20.1 Labs 06/19/24 17:17 06/22/24 11:33 Medications Medications Current Medications Acetaminophen (Acetaminophen 325 Mg Tablet) 650 mg PO Q6H PRN PRN Reason: Headache/Pain, Scale 1-10 Last Admin: 06/11/24 00:27 Dose: 650 mg Al Hydroxide/Mg Hydroxide (Magnesium Hydrox/Alum Hydrox 30 Ml Oral.Susp) 30 ml PO Q6H PRN PRN Reason: Heartburn/Nausea Atorvastatin Calcium (Atorvastatin Calcium 20 Mg Tablet) 20 mg PO BEDTIME [facility] Last Admin: 06/27/24 19:48 Dose: 20 mg Divalproex Sodium (Divalproex Sodium Sprinkles 125 Mg ) 250 mg PO BID [facility] Last Admin: 06/28/24 08:49 Dose: 250 mg Donepezil HCl (Donepezil Hcl 5 Mg Tablet) 5 mg PO BEDTIME [facility] Last Admin: 06/27/24 19:49 Dose: 5 mg Fluticasone Propionate (Fluticasone Propionate Nasal 16 Gm [place]) 2 spray NOSTRIL-B DAILY [facility] Last Admin: 06/28/24 08:50 Dose: 2 spray Levothyroxine Sodium (Levothyroxine Sodium 75 Mcg Tablet) 75 mcg PO DAILY@0600 [facility] Last Admin: 06/28/24 05:00 Dose: 75 mcg Loperamide HCl (Loperamide Hcl 2 Mg Capsule) 2 mg PO Q4H PRN PRN Reason: loose stools Lorazepam (Lorazepam 0.5 Mg Tablet) 0.5 mg PO Q8H PRN PRN Reason: severe anxiety Last Admin: 06/23/24 23:47 Dose: 0.5 mg Magnesium Hydroxide (Milk Of Magnesia 30 Ml Oral.Susp) 30 ml PO DAILY PRN PRN Reason: Constipation Olanzapine (Olanzapine 2.5 Mg Tablet) 2.5 mg PO BID [facility] Last Admin: 06/28/24 08:49 Dose: 2.5 mg Omeprazole (Omeprazole 20 Mg Capsule.Dr) 20 mg PO DAILY@0630 [facility] Last Admin: 06/28/24 05:36 Dose: 20 mg Oxybutynin Chloride (Oxybutynin Chloride Er 5 Mg Tab.Er.24) 15 mg PO DAILY [facility] Last Admin: 06/28/24 08:49 Dose: 15 mg Timolol Maleate (Timolol Maleate 0.5 % Oph Peg 5 Ml Drbtl) 1 drop EYE-BOTH BID [facility] Last Admin: 06/28/24 08:50 Dose: 1 drop Trazodone HCl (Trazodone Hcl 50 Mg Tablet) 50 mg PO BEDTIME MRX1 PRN PRN Reason: Insomnia Last Admin: 06/25/24 20:25 Dose: 50 mg Vitamin D (Cholecalciferol (Vitamin D3) 25 Mcg Tablet) 50 mcg PO DAILY [facility] Last Admin: 06/28/24 08:50 Dose: 50 mcg Allergies Allergies Allergy/AdvReac Type Severity Reaction Status Date / Time sulfamethoxazole Allergy Unknown Verified 03/03/24 14:32 [From Sulfamethoxazole-Trimethoprim] trimethoprim Allergy Unknown Verified 03/03/24 14:32 [From Sulfamethoxazole-Trimethoprim] Assessment & Plan Assessment & Plan (1) 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 Mascorro is an 79 year-old woman with hx of dementia, advanced stages. She was initially admitted to for management of combative and impulsive behaviors secondary to dementia. She was stabilized on combination of depakote, olanzapine. She had episode of brief change in mental status. No VS abnormalities. She was transferred to medical floor for work up of TIA vs stroke, which was negative. Pt transferred back to continue medication management and stabilization and placement. PLAN 06/09 continue tx. awaiting placement. This senior writer completed [employer] cert for conservatorship on 06/08. HCP is affirmed. 06/13 continue tx. 06/14 continue tx 06/15 continue tx. 06/16 continue tx. 06/17 continue tx. 06/18 continue tx. 06/19 continue tx. 06/20 hyponatremic; fluids held today; will get labs again 06/22 repeat cmp showed normal sodium, but elevated ammonia 77. gave lactulose 20mg po BID, will recheck tomorrow. depakote lowered to 250mg po BID. 06/23 ammonia down 56, continue to monitor. 06/14 ammonia back to normal 33. d/c lactulose. 06/27: stable. continue current mgmt. 06/28: c/o urinary frequency, a chronic issue which is being addressed. recently completed course of antibx. continue current mgmt. Reason for continued inpatient stay Substantial Risk for: inability to function Time Spent With Patient Time: Total time managing care of this patient today ____ minutes.
[2024-06-28 20:17] VITALS: BP 134/61; PULSE 81; TEMP 36.9; O2SAT 94
[2024-06-28] MEDS: traZODone HCL 50 MG TABLET PO (20:28)
[2024-06-28] MEDS: Donepezil HCl 5 MG TABLET PO (20:28)
[2024-06-28] MEDS: Atorvastatin Calcium 20 MG TABLET PO (20:29)
[2024-06-29] MEDS: Omeprazole 20 MG CAPSULE.DR PO (05:45)
[2024-06-29] MEDS: Levothyroxine Sodium 75 MCG TABLET PO (05:45)
[2024-06-29 08:00] VITALS: BP 116/57; PULSE 62; RESP 18; TEMP 36.1; O2SAT 98
[2024-06-29] MEDS: OLANZapine 2.5 MG TABLET PO ×2 (08:51→20:17)
[2024-06-29] MEDS: Fluticasone Propionate Nasal 16 GM SPRAY 2 SPRAY NOSTRIL-B (08:51)
[2024-06-29] MEDS: timoloL maleate 0.5 % Oph Sol 5 ML DRBTL 1 DROP EYE-BOTH ×2 (08:51→20:18)
[2024-06-29] MEDS: Divalproex Sodium Sprinkles 125 MG CAP.DR.SPR 250 MG PO ×2 (08:51→20:17)
[2024-06-29] MEDS: oxyBUTYnin chloride ER 5 MG TAB.ER.24 15 MG PO (08:52)
[2024-06-29] MEDS: Cholecalciferol (Vitamin D3) 25 MCG TABLET 50 MCG PO (08:52)
--- NOTE | 2024-06-29 10:15 | P.PNPSI_ITS ---
Subjective Subjective Date of Service: 06/29/24 Reason For Visit: Combative Behaviors Subjective Notes: Conditional Voluntary Healthcare Proxy: Yes Interim History: Pt slept through the night. She is taking medications as prescribed. No behavioral concerns. She is ambulating with walker, was up this morning for breakfast but back again in bed. No diarrhea. No physical concerns. VS stable. Review of Systems Review of Systems No fever, chills or weakness No chest pain, palpitation No shortness of breath or coughing No abdominal pain, nausea or vomiting Mental Status Exam Mental Status Exam Narrative: Appearance: casually groomed lying in bed. Behavior: calm Psychomotor: no agitation or retardation noted Speech: mumbles, regular high pitch tone, spontaneous TP: concrete TC: wanting to go home Mood:ok Affect:calm, congruent SI: none HI: none VH/AH: no overt signs Delusions: none noted Insight/judgment: impaired x 2 Memory/cog: alert, not oriented to place, month or year nor situation. severe impairment in memory and cognition. Diagnostics Vital Signs (24Hr): Vital Signs - 24 hr 06/28/24 20:17 06/29/24 08:00 Temperature 98.4 F Pulse Rate 81 62 Respiratory Rate 18 Blood Pressure 134/61 116/57 L Pulse Oximetry 94 98 Oxygen Delivery Method Room Air Room Air BMI result Body Mass Index 20.1 Labs 06/19/24 17:17 06/22/24 11:33 Medications Medications Current Medications Acetaminophen (Acetaminophen 325 Mg Tablet) 650 mg PO Q6H PRN PRN Reason: Headache/Pain, Scale 1-10 Last Admin: 06/11/24 00:27 Dose: 650 mg Al Hydroxide/Mg Hydroxide (Magnesium Hydrox/Alum Hydrox 30 Ml Oral.Susp) 30 ml PO Q6H PRN PRN Reason: Heartburn/Nausea Atorvastatin Calcium (Atorvastatin Calcium 20 Mg Tablet) 20 mg PO BEDTIME [facility] Last Admin: 06/28/24 20:29 Dose: 20 mg Divalproex Sodium (Divalproex Sodium Sprinkles 125 Mg ) 250 mg PO BID [facility] Last Admin: 06/29/24 08:51 Dose: 250 mg Donepezil HCl (Donepezil Hcl 5 Mg Tablet) 5 mg PO BEDTIME [facility] Last Admin: 06/28/24 20:28 Dose: 5 mg Fluticasone Propionate (Fluticasone Propionate Nasal 16 Gm [place]) 2 spray NOSTRIL-B DAILY [facility] Last Admin: 06/29/24 08:51 Dose: 2 spray Levothyroxine Sodium (Levothyroxine Sodium 75 Mcg Tablet) 75 mcg PO DAILY@0600 [facility] Last Admin: 06/29/24 05:45 Dose: 75 mcg Loperamide HCl (Loperamide Hcl 2 Mg Capsule) 2 mg PO Q4H PRN PRN Reason: loose stools Lorazepam (Lorazepam 0.5 Mg Tablet) 0.5 mg PO Q8H PRN PRN Reason: severe anxiety Last Admin: 06/23/24 23:47 Dose: 0.5 mg Magnesium Hydroxide (Milk Of Magnesia 30 Ml Oral.Susp) 30 ml PO DAILY PRN PRN Reason: Constipation Olanzapine (Olanzapine 2.5 Mg Tablet) 2.5 mg PO BID [facility] Last Admin: 06/29/24 08:51 Dose: 2.5 mg Omeprazole (Omeprazole 20 Mg Capsule.Dr) 20 mg PO DAILY@0630 [facility] Last Admin: 06/29/24 05:45 Dose: 20 mg Oxybutynin Chloride (Oxybutynin Chloride Er 5 Mg Tab.Er.24) 15 mg PO DAILY [facility] Last Admin: 06/29/24 08:52 Dose: 15 mg Timolol Maleate (Timolol Maleate 0.5 % Oph Peg 5 Ml Drbtl) 1 drop EYE-BOTH BID [facility] Last Admin: 06/29/24 08:51 Dose: 1 drop Trazodone HCl (Trazodone Hcl 50 Mg Tablet) 50 mg PO BEDTIME MRX1 PRN PRN Reason: Insomnia Last Admin: 06/28/24 20:28 Dose: 50 mg Vitamin D (Cholecalciferol (Vitamin D3) 25 Mcg Tablet) 50 mcg PO DAILY [facility] Last Admin: 06/29/24 08:52 Dose: 50 mcg Allergies Allergies Allergy/AdvReac Type Severity Reaction Status Date / Time sulfamethoxazole Allergy Unknown Verified 03/03/24 14:32 [From Sulfamethoxazole-Trimethoprim] trimethoprim Allergy Unknown Verified 03/03/24 14:32 [From Sulfamethoxazole-Trimethoprim] Assessment & Plan Assessment & Plan (1) 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 Mascorro is an 79 year-old woman with hx of dementia, advanced stages. She was initially admitted to S[facility] for management of combative and impulsive behaviors secondary to dementia. She was stabilized on combination of depakote, olanzapine. She had episode of brief change in mental status. No VS abnormalities. She was transferred to medical floor for work up of TIA vs stroke, which was negative. Pt transferred back to continue medication management and stabilization and placement. PLAN 06/09 continue tx. awaiting placement. This global technical writer completed [employer] for conservatorship on 06/08. HCP is affirmed. 06/13 continue tx. 06/14 continue tx 06/15 continue tx. 06/16 continue tx. 06/17 continue tx. 06/18 continue tx. 06/19 continue tx. 06/20 hyponatremic; fluids held today; will get labs again 06/22 repeat cmp showed normal sodium, but elevated ammonia 77. gave lactulose 20mg po BID, will recheck tomorrow. depakote lowered to 250mg po BID. 06/23 ammonia down 56, continue to monitor. 06/25 ammonia back to normal 33. d/c lactulose. 06/26 continue tx. 06/29 continue tx. Reason for continued inpatient stay Substantial Risk for: inability to function Time Spent With Patient Time: Total time managing care of this patient today ____ minutes.
[2024-06-29 20:00] VITALS: BP 132/60; PULSE 67; TEMP 36.2; O2SAT 94
[2024-06-29] MEDS: Donepezil HCl 5 MG TABLET PO (20:17)
[2024-06-29] MEDS: Atorvastatin Calcium 20 MG TABLET PO (20:17)
[2024-06-30] MEDS: Levothyroxine Sodium 75 MCG TABLET PO (05:15)
[2024-06-30] MEDS: Omeprazole 20 MG CAPSULE.DR PO (05:46)
[2024-06-30 08:00] VITALS: BP 128/59; PULSE 59; RESP 15; TEMP 36.4; O2SAT 98
[2024-06-30] MEDS: oxyBUTYnin chloride ER 5 MG TAB.ER.24 15 MG PO (08:32)
[2024-06-30] MEDS: OLANZapine 2.5 MG TABLET PO ×2 (08:32→20:27)
[2024-06-30] MEDS: Divalproex Sodium Sprinkles 125 MG CAP.DR.SPR 250 MG PO ×2 (08:32→20:27)
[2024-06-30] MEDS: Cholecalciferol (Vitamin D3) 25 MCG TABLET 50 MCG PO (08:32)
[2024-06-30] MEDS: timoloL maleate 0.5 % Oph Sol 5 ML DRBTL 1 DROP EYE-BOTH ×2 (08:42→20:28)
[2024-06-30] MEDS: Fluticasone Propionate Nasal 16 GM SPRAY 2 SPRAY NOSTRIL-B (08:42)
--- NOTE | 2024-06-30 10:19 | P.PNPSI_ITS ---
Subjective Subjective Date of Service: 06/30/24 Reason For Visit: Combative Behaviors Subjective Notes: Conditional Voluntary Interim History: Pt slept through the night. She is taking medications as prescribed. No behavioral concerns. Pt asks if she can go home soon. Review of Systems Review of Systems No fever, chills or weakness No chest pain, palpitation No shortness of breath or coughing No abdominal pain, nausea or vomiting Mental Status Exam Mental Status Exam Narrative: Appearance: casually groomed ambulating with walker. Behavior: calm Psychomotor: no agitation or retardation noted Speech: mumbles, regular high pitch tone, spontaneous TP: concrete TC: ot clear Mood:ok Affect:calm, congruent SI: none HI: none VH/AH: no overt signs Delusions: none noted Insight/judgment: impaired x 2 Memory/cog: alert, not oriented to place, month or year nor situation. severe impairment in memory and cognition. Diagnostics Vital Signs (24Hr): Vital Signs - 24 hr 06/29/24 20:00 06/30/24 08:00 Temperature 97.2 F 97.5 F Pulse Rate 67 59 Respiratory Rate 15 Blood Pressure 132/60 128/59 L Pulse Oximetry 94 98 Oxygen Delivery Method Room Air Room Air BMI result Body Mass Index 20.1 Labs 06/19/24 17:17 06/22/24 11:33 Medications Medications Current Medications Acetaminophen (Acetaminophen 325 Mg Tablet) 650 mg PO Q6H PRN PRN Reason: Headache/Pain, Scale 1-10 Last Admin: 06/11/24 00:27 Dose: 650 mg Al Hydroxide/Mg Hydroxide (Magnesium Hydrox/Alum Hydrox 30 Ml Oral.Susp) 30 ml PO Q6H PRN PRN Reason: Heartburn/Nausea Atorvastatin Calcium (Atorvastatin Calcium 20 Mg Tablet) 20 mg PO BEDTIME [facility] Last Admin: 06/29/24 20:17 Dose: 20 mg Divalproex Sodium (Divalproex Sodium [place] 125 Mg ) 250 mg PO BID [facility] Last Admin: 06/30/24 08:32 Dose: 250 mg Donepezil HCl (Donepezil Hcl 5 Mg Tablet) 5 mg PO BEDTIME [facility] Last Admin: 06/29/24 20:17 Dose: 5 mg Fluticasone Propionate (Fluticasone Propionate Nasal 16 Gm [place]) 2 spray NOSTRIL-B DAILY [facility] Last Admin: 06/30/24 08:42 Dose: 2 spray Levothyroxine Sodium (Levothyroxine Sodium 75 Mcg Tablet) 75 mcg PO DAILY@0600 [facility] Last Admin: 06/30/24 05:15 Dose: 75 mcg Loperamide HCl (Loperamide Hcl 2 Mg Capsule) 2 mg PO Q4H PRN PRN Reason: loose stools Lorazepam (Lorazepam 0.5 Mg Tablet) 0.5 mg PO Q8H PRN PRN Reason: severe anxiety Last Admin: 06/23/24 23:47 Dose: 0.5 mg Magnesium Hydroxide (Milk Of Magnesia 30 Ml Oral.Susp) 30 ml PO DAILY PRN PRN Reason: Constipation Olanzapine (Olanzapine 2.5 Mg Tablet) 2.5 mg PO BID [facility] Last Admin: 06/30/24 08:32 Dose: 2.5 mg Omeprazole (Omeprazole 20 Mg Capsule.Dr) 20 mg PO DAILY@0630 [facility] Last Admin: 06/30/24 05:46 Dose: 20 mg Oxybutynin Chloride (Oxybutynin Chloride Er 5 Mg Tab.Er.24) 15 mg PO DAILY [facility] Last Admin: 06/30/24 08:32 Dose: 15 mg Timolol Maleate (Timolol Maleate 0.5 % Oph Peg 5 Ml Drbtl) 1 drop EYE-BOTH BID [facility] Last Admin: 06/30/24 08:42 Dose: 1 drop Trazodone HCl (Trazodone Hcl 50 Mg Tablet) 50 mg PO BEDTIME MRX1 PRN PRN Reason: Insomnia Last Admin: 06/28/24 20:28 Dose: 50 mg Vitamin D (Cholecalciferol (Vitamin D3) 25 Mcg Tablet) 50 mcg PO DAILY [facility] Last Admin: 06/30/24 08:32 Dose: 50 mcg Allergies Allergies Allergy/AdvReac Type Severity Reaction Status Date / Time sulfamethoxazole Allergy Unknown Verified 03/03/24 14:32 [From Sulfamethoxazole-Trimethoprim] trimethoprim Allergy Unknown Verified 03/03/24 14:32 [From Sulfamethoxazole-Trimethoprim] Assessment & Plan Assessment & Plan (1) 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 Mascorro is an 79 year-old woman with hx of dementia, advanced stages. She was initially admitted to S1 for management of combative and impulsive behaviors secondary to dementia. She was stabilized on combination of depakote, olanzapine. She had episode of brief change in mental status. No VS abnormalities. She was transferred to medical floor for work up of TIA vs stroke, which was negative. Pt transferred back to continue medication management and stabilization and placement. PLAN 06/30 continue tx. Reason for continued inpatient stay Substantial Risk for: inability to function Time Spent With Patient Time: Total time managing care of this patient today ____ minutes.
[2024-06-30 20:00] VITALS: BP 140/82; PULSE 70; RESP 16; TEMP 36.8; O2SAT 92
[2024-06-30] MEDS: Atorvastatin Calcium 20 MG TABLET PO (20:27)
[2024-06-30] MEDS: Donepezil HCl 5 MG TABLET PO (20:28)
[2024-06-30] MEDS: LORazepam 0.5 MG TABLET PO (23:51)
[2024-06-30] MEDS: traZODone HCL 50 MG TABLET PO (23:51)
[2024-07-01] MEDS: Levothyroxine Sodium 75 MCG TABLET PO (06:11)
[2024-07-01] MEDS: Omeprazole 20 MG CAPSULE.DR PO (06:11)
[2024-07-01 08:00] VITALS: BP 119/57; PULSE 61; RESP 16; TEMP 36.6; O2SAT 97
[2024-07-01] MEDS: oxyBUTYnin chloride ER 5 MG TAB.ER.24 15 MG PO (10:39)
[2024-07-01] MEDS: Divalproex Sodium Sprinkles 125 MG CAP.DR.SPR 250 MG PO ×2 (10:40→20:59)
[2024-07-01] MEDS: Cholecalciferol (Vitamin D3) 25 MCG TABLET 50 MCG PO (10:40)
[2024-07-01] MEDS: OLANZapine 2.5 MG TABLET PO ×2 (10:41→21:00)
[2024-07-01] MEDS: Fluticasone Propionate Nasal 16 GM SPRAY 2 SPRAY NOSTRIL-B (10:47)
[2024-07-01] MEDS: timoloL maleate 0.5 % Oph Sol 5 ML DRBTL 1 DROP EYE-BOTH ×2 (10:49→20:59)
[2024-07-01 13:00] VITALS: BMI 20.1
--- NOTE | 2024-07-01 16:51 | P.PNPSI_ITS ---
Subjective Subjective Date of Service: 07/01/24 Reason For Visit: Combative Behaviors Interim History: Pt slept through the night. She is taking medications as prescribed. No behavioral concerns. Pt asks if she can go home soon. Review of Systems Review of Systems No fever, chills or weakness No chest pain, palpitation No shortness of breath or coughing No abdominal pain, nausea or vomiting Mental Status Exam Mental Status Exam Narrative: Appearance: casually groomed ambulating with walker. Behavior: calm Psychomotor: no agitation or retardation noted Speech: mumbles, regular high pitch tone, spontaneous TP: concrete TC: ot clear Mood:ok Affect:calm, congruent SI: none HI: none VH/AH: no overt signs Delusions: none noted Insight/judgment: impaired x 2 Memory/cog: alert, not oriented to place, month or year nor situation. severe impairment in memory and cognition. Diagnostics Vital Signs (24Hr): Vital Signs - 24 hr 06/30/24 20:00 07/01/24 08:00 Temperature 98.2 F 97.9 F Pulse Rate 70 61 Respiratory Rate 16 16 Blood Pressure 140/82 H 119/57 L Pulse Oximetry 92 97 Oxygen Delivery Method Room Air Room Air BMI result Body Mass Index 20.1 Labs 06/19/24 17:17 06/22/24 11:33 Medications Medications Current Medications Acetaminophen (Acetaminophen 325 Mg Tablet) 650 mg PO Q6H PRN PRN Reason: Headache/Pain, Scale 1-10 Last Admin: 06/11/24 00:27 Dose: 650 mg Al Hydroxide/Mg Hydroxide (Magnesium Hydrox/Alum Hydrox 30 Ml Oral.Susp) 30 ml PO Q6H PRN PRN Reason: Heartburn/Nausea Atorvastatin Calcium (Atorvastatin Calcium 20 Mg Tablet) 20 mg PO BEDTIME [facility] Last Admin: 06/30/24 20:27 Dose: 20 mg Divalproex Sodium (Divalproex Sodium Sprinkles 125 Mg ) 250 mg PO BID [facility] Last Admin: 07/01/24 10:40 Dose: 250 mg Donepezil HCl (Donepezil Hcl 5 Mg Tablet) 5 mg PO BEDTIME [facility] Last Admin: 06/30/24 20:28 Dose: 5 mg Fluticasone Propionate (Fluticasone Propionate Nasal 16 Gm [place]) 2 spray NOSTRIL-B DAILY [facility] Last Admin: 07/01/24 10:47 Dose: 2 spray Levothyroxine Sodium (Levothyroxine Sodium 75 Mcg Tablet) 75 mcg PO DAILY@0600 [facility] Last Admin: 07/01/24 06:11 Dose: 75 mcg Loperamide HCl (Loperamide Hcl 2 Mg Capsule) 2 mg PO Q4H PRN PRN Reason: loose stools Lorazepam (Lorazepam 0.5 Mg Tablet) 0.5 mg PO Q8H PRN PRN Reason: severe anxiety Last Admin: 06/30/24 23:51 Dose: 0.5 mg Magnesium Hydroxide (Milk Of Magnesia 30 Ml Oral.Susp) 30 ml PO DAILY PRN PRN Reason: Constipation Olanzapine (Olanzapine 2.5 Mg Tablet) 2.5 mg PO BID [facility] Last Admin: 07/01/24 10:41 Dose: 2.5 mg Omeprazole (Omeprazole 20 Mg Capsule.Dr) 20 mg PO DAILY@0630 [facility] Last Admin: 07/01/24 06:11 Dose: 20 mg Oxybutynin Chloride (Oxybutynin Chloride Er 5 Mg Tab.Er.24) 15 mg PO DAILY [facility] Last Admin: 07/01/24 10:39 Dose: 15 mg Timolol Maleate (Timolol Maleate 0.5 % Oph Peg 5 Ml Drbtl) 1 drop EYE-BOTH BID [facility] Last Admin: 07/01/24 10:49 Dose: 1 drop Trazodone HCl (Trazodone Hcl 50 Mg Tablet) 50 mg PO BEDTIME MRX1 PRN PRN Reason: Insomnia Last Admin: 06/30/24 23:51 Dose: 50 mg Vitamin D (Cholecalciferol (Vitamin D3) 25 Mcg Tablet) 50 mcg PO DAILY [facility] Last Admin: 07/01/24 10:40 Dose: 50 mcg Allergies Allergies Allergy/AdvReac Type Severity Reaction Status Date / Time sulfamethoxazole Allergy Unknown Verified 03/03/24 14:32 [From Sulfamethoxazole-Trimethoprim] trimethoprim Allergy Unknown Verified 03/03/24 14:32 [From Sulfamethoxazole-Trimethoprim] Assessment & Plan Assessment & Plan (1) 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 Mascorro is an 79 year-old woman with hx of dementia, advanced stages. She was initially admitted to S1 for management of combative and impulsive behaviors secondary to dementia. She was stabilized on combination of depakote, olanzapine. She had episode of brief change in mental status. No VS abnormalities. She was transferred to medical floor for work up of TIA vs stroke, which was negative. Pt transferred back to continue medication management and stabilization and placement. PLAN 06/30 continue tx. 07/01 continue tx. awaiting placement, financial paperwork not completed to submit application for [employer]. Reason for continued inpatient stay Substantial Risk for: inability to function Time Spent With Patient Time: Total time managing care of this patient today ____ minutes.
[2024-07-01 20:00] VITALS: BP 139/66; PULSE 74; RESP 18; TEMP 36.9; O2SAT 94
[2024-07-01] MEDS: Donepezil HCl 5 MG TABLET PO (21:00)
[2024-07-01] MEDS: Atorvastatin Calcium 20 MG TABLET PO (21:00)
[2024-07-02] MEDS: Levothyroxine Sodium 75 MCG TABLET PO (06:00)
[2024-07-02] MEDS: Omeprazole 20 MG CAPSULE.DR PO (06:00)
[2024-07-02 08:00] VITALS: BP 118/56; PULSE 84; RESP 14; TEMP 36.3; O2SAT 95
[2024-07-02] MEDS: Divalproex Sodium Sprinkles 125 MG CAP.DR.SPR 250 MG PO ×2 (08:22→20:26)
[2024-07-02] MEDS: oxyBUTYnin chloride ER 5 MG TAB.ER.24 15 MG PO (08:22)
[2024-07-02] MEDS: OLANZapine 2.5 MG TABLET PO ×2 (08:22→20:26)
[2024-07-02] MEDS: Fluticasone Propionate Nasal 16 GM SPRAY 2 SPRAY NOSTRIL-B (08:23)
[2024-07-02] MEDS: timoloL maleate 0.5 % Oph Sol 5 ML DRBTL 1 DROP EYE-BOTH ×2 (08:23→20:26)
[2024-07-02] MEDS: Cholecalciferol (Vitamin D3) 25 MCG TABLET 50 MCG PO (08:23)
--- NOTE | 2024-07-02 16:10 | P.PNPSI_ITS ---
Subjective Subjective Date of Service: 07/03/24 Reason For Visit: Combative Behaviors Subjective Notes: Conditional Voluntary Healthcare Proxy: Yes Interim History: Pt slept through the night. She's ambulating with walker, reports wants to go home. denies any physical concerns. No aggression or combative behaviors. She is taking medications as prescribed. VS stable. Review of Systems Review of Systems No fever, chills or weakness No chest pain, palpitation No shortness of breath or coughing No abdominal pain, nausea or vomiting Yes Unobtainable due to mental status Mental Status Exam Mental Status Exam Narrative: Appearance: casually groomed ambulating with walker. Behavior: calm Psychomotor: no agitation or retardation noted Speech: mumbles, regular high pitch tone, spontaneous TP: concrete TC: ot clear Mood:ok Affect:calm, congruent SI: none HI: none VH/AH: no overt signs Delusions: none noted Insight/judgment: impaired x 2 Memory/cog: alert, not oriented to place, month or year nor situation. severe impairment in memory and cognition. Diagnostics Vital Signs (24Hr): Vital Signs - 24 hr 07/01/24 20:00 07/02/24 08:00 Temperature 98.4 F 97.3 F Pulse Rate 74 84 Respiratory Rate 18 14 Blood Pressure 139/66 118/56 L Pulse Oximetry 94 95 Oxygen Delivery Method Room Air Room Air BMI result Body Mass Index 20.1 Labs 06/19/24 17:17 06/22/24 11:33 Medications Medications Current Medications Acetaminophen (Acetaminophen 325 Mg Tablet) 650 mg PO Q6H PRN PRN Reason: Headache/Pain, Scale 1-10 Last Admin: 06/11/24 00:27 Dose: 650 mg Al Hydroxide/Mg Hydroxide (Magnesium Hydrox/Alum Hydrox 30 Ml Oral.Susp) 30 ml PO Q6H PRN PRN Reason: Heartburn/Nausea Atorvastatin Calcium (Atorvastatin Calcium 20 Mg Tablet) 20 mg PO BEDTIME [facility] Last Admin: 07/01/24 21:00 Dose: 20 mg Divalproex Sodium (Divalproex Sodium Sprinkles 125 Mg ) 250 mg PO BID [facility] Last Admin: 07/02/24 08:22 Dose: 250 mg Donepezil HCl (Donepezil Hcl 5 Mg Tablet) 5 mg PO BEDTIME [facility] Last Admin: 07/01/24 21:00 Dose: 5 mg Fluticasone Propionate (Fluticasone Propionate Nasal 16 Gm [place]) 2 spray NOSTRIL-B DAILY [facility] Last Admin: 07/02/24 08:23 Dose: 2 spray Levothyroxine Sodium (Levothyroxine Sodium 75 Mcg Tablet) 75 mcg PO DAILY@0600 [facility] Last Admin: 07/02/24 06:00 Dose: 75 mcg Loperamide HCl (Loperamide Hcl 2 Mg Capsule) 2 mg PO Q4H PRN PRN Reason: loose stools Lorazepam (Lorazepam 0.5 Mg Tablet) 0.5 mg PO Q8H PRN PRN Reason: severe anxiety Last Admin: 06/30/24 23:51 Dose: 0.5 mg Magnesium Hydroxide (Milk Of Magnesia 30 Ml Oral.Susp) 30 ml PO DAILY PRN PRN Reason: Constipation Olanzapine (Olanzapine 2.5 Mg Tablet) 2.5 mg PO BID [facility] Last Admin: 07/02/24 08:22 Dose: 2.5 mg Omeprazole (Omeprazole 20 Mg Capsule.Dr) 20 mg PO DAILY@0630 [facility] Last Admin: 07/02/24 06:00 Dose: 20 mg Oxybutynin Chloride (Oxybutynin Chloride Er 5 Mg Tab.Er.24) 15 mg PO DAILY [facility] Last Admin: 07/02/24 08:22 Dose: 15 mg Timolol Maleate (Timolol Maleate 0.5 % Oph Peg 5 Ml Drbtl) 1 drop EYE-BOTH BID [facility] Last Admin: 07/02/24 08:23 Dose: 1 drop Trazodone HCl (Trazodone Hcl 50 Mg Tablet) 50 mg PO BEDTIME MRX1 PRN PRN Reason: Insomnia Last Admin: 06/30/24 23:51 Dose: 50 mg Vitamin D (Cholecalciferol (Vitamin D3) 25 Mcg Tablet) 50 mcg PO DAILY [facility] Last Admin: 07/02/24 08:23 Dose: 50 mcg Allergies Allergies Allergy/AdvReac Type Severity Reaction Status Date / Time sulfamethoxazole Allergy Unknown Verified 03/03/24 14:32 [From Sulfamethoxazole-Trimethoprim] trimethoprim Allergy Unknown Verified 03/03/24 14:32 [From Sulfamethoxazole-Trimethoprim] Assessment & Plan Assessment & Plan (1) 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 Mascorro is an 79 year-old woman with hx of dementia, advanced stages. She was initially admitted to S1 for management of combative and impulsive behaviors secondary to dementia. She was stabilized on combination of depakote, olanzapine. She had episode of brief change in mental status. No VS abnormalities. She was transferred to medical floor for work up of TIA vs stroke, which was negative. Pt transferred back to continue medication management and stabilization and placement. PLAN 06/30 continue tx. 07/01 continue tx. awaiting placement, financial paperwork not completed to submit application for [employer]. 07/02 continue tx. 07/03 continue tx. Reason for continued inpatient stay Substantial Risk for: inability to function Time Spent With Patient Time: Total time managing care of this patient today ____ minutes.
[2024-07-02 20:00] VITALS: BP 116/65; PULSE 70; RESP 16; TEMP 36.6; O2SAT 93
[2024-07-02] MEDS: Donepezil HCl 5 MG TABLET PO (20:26)
[2024-07-02] MEDS: Atorvastatin Calcium 20 MG TABLET PO (20:26)
[2024-07-03] MEDS: Omeprazole 20 MG CAPSULE.DR PO (06:00)
[2024-07-03] MEDS: Levothyroxine Sodium 75 MCG TABLET PO (06:00)
[2024-07-03 08:00] VITALS: BP 128/82; PULSE 70; RESP 18; TEMP 36.2; O2SAT 98
[2024-07-03] MEDS: OLANZapine 2.5 MG TABLET PO ×2 (08:52→20:37)
[2024-07-03] MEDS: oxyBUTYnin chloride ER 5 MG TAB.ER.24 15 MG PO (08:52)
[2024-07-03] MEDS: Divalproex Sodium Sprinkles 125 MG CAP.DR.SPR 250 MG PO ×2 (08:52→20:36)
[2024-07-03] MEDS: Cholecalciferol (Vitamin D3) 25 MCG TABLET 50 MCG PO (08:52)
[2024-07-03] MEDS: timoloL maleate 0.5 % Oph Sol 5 ML DRBTL 1 DROP EYE-BOTH ×2 (08:53→20:37)
[2024-07-03] MEDS: Fluticasone Propionate Nasal 16 GM SPRAY 2 SPRAY NOSTRIL-B (08:53)
[2024-07-03 20:00] VITALS: BP 138/62; PULSE 69; RESP 16; TEMP 36.6; O2SAT 94
[2024-07-03] MEDS: Atorvastatin Calcium 20 MG TABLET PO (20:36)
[2024-07-03] MEDS: Donepezil HCl 5 MG TABLET PO (20:36)
[2024-07-04] MEDS: Omeprazole 20 MG CAPSULE.DR PO (06:32)
[2024-07-04] MEDS: Levothyroxine Sodium 75 MCG TABLET PO (06:32)
[2024-07-04 08:00] VITALS: BP 132/74; PULSE 61; RESP 16; TEMP 36.6; O2SAT 97
[2024-07-04] MEDS: Cholecalciferol (Vitamin D3) 25 MCG TABLET 50 MCG PO (09:41)
[2024-07-04] MEDS: oxyBUTYnin chloride ER 5 MG TAB.ER.24 15 MG PO (09:42)
[2024-07-04] MEDS: OLANZapine 2.5 MG TABLET PO ×2 (09:43→20:25)
[2024-07-04] MEDS: Divalproex Sodium Sprinkles 125 MG CAP.DR.SPR 250 MG PO ×2 (09:43→20:25)
[2024-07-04] MEDS: timoloL maleate 0.5 % Oph Sol 5 ML DRBTL 1 DROP EYE-BOTH ×2 (09:54→20:26)
[2024-07-04] MEDS: Fluticasone Propionate Nasal 16 GM SPRAY 2 SPRAY NOSTRIL-B (09:54)
--- NOTE | 2024-07-04 12:57 | HO.PSYCHPN ---
Subjective Subjective Date of Service: 07/04/24 Reason For Visit: Combative Behaviors Subjective Notes: Conditional Voluntary Interim History: Patient was seen and discussed in rounds today. Records and plans were reviewed. She is doing about the same. She is on one-to-one. Continues to be confused. Medication compliant. Sleeping 8 hours. Mostly isolative. No changes were made today Review of Systems Review of Systems Yes Unobtainable due to mental status Mental Status Exam Mental Status Exam Narrative: Appearance: casually groomed ambulating with walker. Behavior: calm Psychomotor: no agitation or retardation noted Speech: mumbles, regular high pitch tone, spontaneous TP: concrete TC: ot clear Mood:ok Affect:calm, congruent SI: none HI: none VH/AH: no overt signs Delusions: none noted Insight/judgment: impaired x 2 Memory/cog: alert, not oriented to place, month or year nor situation. severe impairment in memory and cognition. Diagnostics Vital Signs (24Hr): Vital Signs - 24 hr 07/03/24 20:00 07/04/24 08:00 Temperature 97.9 F 97.9 F Pulse Rate 69 61 Respiratory Rate 16 16 Blood Pressure 138/62 132/74 Pulse Oximetry 94 97 Oxygen Delivery Method Room Air Room Air BMI result Body Mass Index 20.1 Labs 06/19/24 17:17 06/22/24 11:33 Medications Medications Current Medications Acetaminophen (Acetaminophen 325 Mg Tablet) 650 mg PO Q6H PRN PRN Reason: Headache/Pain, Scale 1-10 Last Admin: 06/11/24 00:27 Dose: 650 mg Al Hydroxide/Mg Hydroxide (Magnesium Hydrox/Alum Hydrox 30 Ml Oral.Susp) 30 ml PO Q6H PRN PRN Reason: Heartburn/Nausea Atorvastatin Calcium (Atorvastatin Calcium 20 Mg Tablet) 20 mg PO BEDTIME [facility] Last Admin: 07/03/24 20:36 Dose: 20 mg Divalproex Sodium (Divalproex Sodium Sprinkles 125 Mg ) 250 mg PO BID [facility] Last Admin: 07/04/24 09:43 Dose: 250 mg Donepezil HCl (Donepezil Hcl 5 Mg Tablet) 5 mg PO BEDTIME [facility] Last Admin: 07/03/24 20:36 Dose: 5 mg Fluticasone Propionate (Fluticasone Propionate Nasal 16 Gm [place]) 2 spray NOSTRIL-B DAILY [facility] Last Admin: 07/04/24 09:54 Dose: 2 spray Levothyroxine Sodium (Levothyroxine Sodium 75 Mcg Tablet) 75 mcg PO DAILY@0600 [facility] Last Admin: 07/04/24 06:32 Dose: 75 mcg Loperamide HCl (Loperamide Hcl 2 Mg Capsule) 2 mg PO Q4H PRN PRN Reason: loose stools Lorazepam (Lorazepam 0.5 Mg Tablet) 0.5 mg PO Q8H PRN PRN Reason: severe anxiety Last Admin: 06/30/24 23:51 Dose: 0.5 mg Magnesium Hydroxide (Milk Of Magnesia 30 Ml Oral.Susp) 30 ml PO DAILY PRN PRN Reason: Constipation Olanzapine (Olanzapine 2.5 Mg Tablet) 2.5 mg PO BID [facility] Last Admin: 07/04/24 09:43 Dose: 2.5 mg Omeprazole (Omeprazole 20 Mg Capsule.Dr) 20 mg PO DAILY@0630 [facility] Last Admin: 07/04/24 06:32 Dose: 20 mg Oxybutynin Chloride (Oxybutynin Chloride Er 5 Mg Tab.Er.24) 15 mg PO DAILY [facility] Last Admin: 07/04/24 09:42 Dose: 15 mg Timolol Maleate (Timolol Maleate 0.5 % Oph Peg 5 Ml Drbtl) 1 drop EYE-BOTH BID [facility] Last Admin: 07/04/24 09:54 Dose: 1 drop Trazodone HCl (Trazodone Hcl 50 Mg Tablet) 50 mg PO BEDTIME MRX1 PRN PRN Reason: Insomnia Last Admin: 06/30/24 23:51 Dose: 50 mg Vitamin D (Cholecalciferol (Vitamin D3) 25 Mcg Tablet) 50 mcg PO DAILY [facility] Last Admin: 07/04/24 09:41 Dose: 50 mcg Allergies Allergies Allergy/AdvReac Type Severity Reaction Status Date / Time sulfamethoxazole Allergy Unknown Verified 03/03/24 14:32 [From Sulfamethoxazole-Trimethoprim] trimethoprim Allergy Unknown Verified 03/03/24 14:32 [From Sulfamethoxazole-Trimethoprim] Assessment & Plan Assessment & Plan (1) 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 Mascorro is an 79 year-old woman with hx of dementia, advanced stages. She was initially admitted to S1 for management of combative and impulsive behaviors secondary to dementia. She was stabilized on combination of depakote, olanzapine. She had episode of brief change in mental status. No VS abnormalities. She was transferred to medical floor for work up of TIA vs stroke, which was negative. Pt transferred back to continue medication management and stabilization and placement. PLAN 06/30 continue tx. 07/01 continue tx. awaiting placement, financial paperwork not completed to submit application for [employer]. 07/04: Continue current regimen and plans Reason for continued inpatient stay Substantial Risk for: inability to function Time Spent With Patient Time: Total time managing care of this patient today ____ minutes.
[2024-07-04 16:59] VITALS: BMI 20.5
[2024-07-04 20:00] VITALS: BP 137/89; PULSE 65; RESP 16; TEMP 36.6; O2SAT 93
[2024-07-04] MEDS: Atorvastatin Calcium 20 MG TABLET PO (20:25)
[2024-07-04] MEDS: Donepezil HCl 5 MG TABLET PO (20:26)
[2024-07-05] MEDS: Levothyroxine Sodium 75 MCG TABLET PO (05:45)
[2024-07-05] MEDS: Omeprazole 20 MG CAPSULE.DR PO (05:45)
[2024-07-05 07:53] VITALS: BP 111/58; PULSE 68; RESP 20; TEMP 36.3; O2SAT 97
[2024-07-05] MEDS: Divalproex Sodium Sprinkles 125 MG CAP.DR.SPR 250 MG PO ×2 (09:00→19:47)
[2024-07-05] MEDS: oxyBUTYnin chloride ER 5 MG TAB.ER.24 15 MG PO (09:02)
[2024-07-05] MEDS: timoloL maleate 0.5 % Oph Sol 5 ML DRBTL 1 DROP EYE-BOTH ×2 (09:02→19:47)
[2024-07-05] MEDS: Fluticasone Propionate Nasal 16 GM SPRAY 2 SPRAY NOSTRIL-B (09:02)
[2024-07-05] MEDS: Cholecalciferol (Vitamin D3) 25 MCG TABLET 50 MCG PO (09:03)
[2024-07-05] MEDS: OLANZapine 2.5 MG TABLET PO ×2 (09:04→19:46)
--- NOTE | 2024-07-05 10:46 | P.PNPSI_ITS ---
Subjective Subjective Date of Service: 07/05/24 Reason For Visit: Combative Behaviors Subjective Notes: Conditional Voluntary Interim History: Patient was seen and discussed in rounds today. Records and plans were reviewed. No changes reported by nursing. Incoherent with word salad reported. Eating and sleeping adequately. No dangerous behaviors. No changes were made Review of Systems Review of Systems Yes Unobtainable due to mental status Mental Status Exam Mental Status Exam Narrative: Appearance: casually groomed ambulating with walker. Behavior: calm Psychomotor: no agitation or retardation noted Speech: mumbles, regular high pitch tone, spontaneous TP: concrete TC: ot clear Mood:ok Affect:calm, congruent SI: none HI: none VH/AH: no overt signs Delusions: none noted Insight/judgment: impaired x 2 Memory/cog: alert, not oriented to place, month or year nor situation. severe impairment in memory and cognition. Diagnostics Vital Signs (24Hr): Vital Signs - 24 hr 07/04/24 20:00 07/05/24 07:53 Temperature 97.9 F 97.3 F Pulse Rate 65 68 Respiratory Rate 16 20 Blood Pressure 137/89 111/58 L Pulse Oximetry 93 97 Oxygen Delivery Method Room Air Room Air BMI result Body Mass Index 20.5 Labs 06/19/24 17:17 06/22/24 11:33 Medications Medications Current Medications Acetaminophen (Acetaminophen 325 Mg Tablet) 650 mg PO Q6H PRN PRN Reason: Headache/Pain, Scale 1-10 Last Admin: 06/11/24 00:27 Dose: 650 mg Al Hydroxide/Mg Hydroxide (Magnesium Hydrox/Alum Hydrox 30 Ml Oral.Susp) 30 ml PO Q6H PRN PRN Reason: Heartburn/Nausea Atorvastatin Calcium (Atorvastatin Calcium 20 Mg Tablet) 20 mg PO BEDTIME [facility] Last Admin: 07/04/24 20:25 Dose: 20 mg Divalproex Sodium (Divalproex Sodium Sprinkles 125 Mg ) 250 mg PO BID [facility] Last Admin: 07/05/24 09:00 Dose: 250 mg Donepezil HCl (Donepezil Hcl 5 Mg Tablet) 5 mg PO BEDTIME [facility] Last Admin: 07/04/24 20:26 Dose: 5 mg Fluticasone Propionate (Fluticasone Propionate Nasal 16 Gm [place]) 2 spray NOSTRIL-B DAILY [facility] Last Admin: 07/05/24 09:02 Dose: 2 spray Levothyroxine Sodium (Levothyroxine Sodium 75 Mcg Tablet) 75 mcg PO DAILY@0600 [facility] Last Admin: 07/05/24 05:45 Dose: 75 mcg Loperamide HCl (Loperamide Hcl 2 Mg Capsule) 2 mg PO Q4H PRN PRN Reason: loose stools Lorazepam (Lorazepam 0.5 Mg Tablet) 0.5 mg PO Q8H PRN PRN Reason: severe anxiety Last Admin: 06/30/24 23:51 Dose: 0.5 mg Magnesium Hydroxide (Milk Of Magnesia 30 Ml Oral.Susp) 30 ml PO DAILY PRN PRN Reason: Constipation Olanzapine (Olanzapine 2.5 Mg Tablet) 2.5 mg PO BID [facility] Last Admin: 07/05/24 09:04 Dose: 2.5 mg Omeprazole (Omeprazole 20 Mg Capsule.Dr) 20 mg PO DAILY@0630 [facility] Last Admin: 07/05/24 05:45 Dose: 20 mg Oxybutynin Chloride (Oxybutynin Chloride Er 5 Mg Tab.Er.24) 15 mg PO DAILY [facility] Last Admin: 07/05/24 09:02 Dose: 15 mg Timolol Maleate (Timolol Maleate 0.5 % Oph Peg 5 Ml Drbtl) 1 drop EYE-BOTH BID [facility] Last Admin: 07/05/24 09:02 Dose: 1 drop Trazodone HCl (Trazodone Hcl 50 Mg Tablet) 50 mg PO BEDTIME MRX1 PRN PRN Reason: Insomnia Last Admin: 06/30/24 23:51 Dose: 50 mg Vitamin D (Cholecalciferol (Vitamin D3) 25 Mcg Tablet) 50 mcg PO DAILY [facility] Last Admin: 07/05/24 09:03 Dose: 50 mcg Allergies Allergies Allergy/AdvReac Type Severity Reaction Status Date / Time sulfamethoxazole Allergy Unknown Verified 03/03/24 14:32 [From Sulfamethoxazole-Trimethoprim] trimethoprim Allergy Unknown Verified 03/03/24 14:32 [From Sulfamethoxazole-Trimethoprim] Assessment & Plan Assessment & Plan (1) 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 Mascorro is an 79 year-old woman with hx of dementia, advanced stages. She was initially admitted to S1 for management of combative and impulsive behaviors secondary to dementia. She was stabilized on combination of depakote, olanzapine. She had episode of brief change in mental status. No VS abnormalities. She was transferred to medical floor for work up of TIA vs stroke, which was negative. Pt transferred back to continue medication management and stabilization and placement. PLAN 06/30 continue tx. 07/01 continue tx. awaiting placement, financial paperwork not completed to submit application for [employer]. 07/04: Continue current regimen and plans 07/05: Continue current regimen and plans Reason for continued inpatient stay Substantial Risk for: med/psych decompensation Time Spent With Patient Time: Total time managing care of this patient today ____ minutes.
[2024-07-05 19:43] VITALS: BP 153/73; PULSE 67; RESP 16; TEMP 36; O2SAT 99
[2024-07-05] MEDS: Donepezil HCl 5 MG TABLET PO (19:46)
[2024-07-05] MEDS: Atorvastatin Calcium 20 MG TABLET PO (19:47)
[2024-07-06] MEDS: Levothyroxine Sodium 75 MCG TABLET PO (05:20)
[2024-07-06] MEDS: Omeprazole 20 MG CAPSULE.DR PO (05:46)
[2024-07-06 08:00] VITALS: BP 118/62; PULSE 74; RESP 16; TEMP 36.3; O2SAT 97
[2024-07-06] MEDS: Fluticasone Propionate Nasal 16 GM SPRAY 2 SPRAY NOSTRIL-B (08:43)
[2024-07-06] MEDS: Cholecalciferol (Vitamin D3) 25 MCG TABLET 50 MCG PO (08:43)
[2024-07-06] MEDS: OLANZapine 2.5 MG TABLET PO ×2 (08:43→19:38)
[2024-07-06] MEDS: timoloL maleate 0.5 % Oph Sol 5 ML DRBTL 1 DROP EYE-BOTH ×2 (08:43→19:38)
[2024-07-06] MEDS: Divalproex Sodium Sprinkles 125 MG CAP.DR.SPR 250 MG PO ×2 (08:43→19:38)
[2024-07-06] MEDS: oxyBUTYnin chloride ER 5 MG TAB.ER.24 15 MG PO (08:43)
--- NOTE | 2024-07-06 11:27 | P.PNPSI_ITS ---
Subjective Subjective Date of Service: 07/03/24 Reason For Visit: Combative Behaviors Subjective Notes: Conditional Voluntary Healthcare Proxy: Yes Interim History: Late entry: 07/03/2024: Pt slept through the night. Pt ambulating with walker, no behavioral concerns. VS stable. continues on one to one due to risk for falls. Review of Systems Review of Systems No fever, chills or weakness No chest pain, palpitation No shortness of breath or coughing No abdominal pain, nausea or vomiting Yes Unobtainable due to mental status Mental Status Exam Mental Status Exam Narrative: Appearance: casually groomed ambulating with walker. Behavior: calm Psychomotor: no agitation or retardation noted Speech: mumbles, regular high pitch tone, spontaneous TP: concrete TC: ot clear Mood:ok Affect:calm, congruent SI: none HI: none VH/AH: no overt signs Delusions: none noted Insight/judgment: impaired x 2 Memory/cog: alert, not oriented to place, month or year nor situation. severe impairment in memory and cognition. Diagnostics Vital Signs (24Hr): Vital Signs - 24 hr 07/05/24 19:43 07/06/24 08:00 Temperature 96.8 F 97.3 F Pulse Rate 67 74 Respiratory Rate 16 16 Blood Pressure 153/73 H 118/62 Pulse Oximetry 99 97 Oxygen Delivery Method Room Air Room Air BMI result Body Mass Index 20.5 Labs 06/19/24 17:17 06/22/24 11:33 Medications Medications Current Medications Acetaminophen (Acetaminophen 325 Mg Tablet) 650 mg PO Q6H PRN PRN Reason: Headache/Pain, Scale 1-10 Last Admin: 06/11/24 00:27 Dose: 650 mg Al Hydroxide/Mg Hydroxide (Magnesium Hydrox/Alum Hydrox 30 Ml Oral.Susp) 30 ml PO Q6H PRN PRN Reason: Heartburn/Nausea Atorvastatin Calcium (Atorvastatin Calcium 20 Mg Tablet) 20 mg PO BEDTIME [facility] Last Admin: 07/05/24 19:47 Dose: 20 mg Divalproex Sodium (Divalproex Sodium Sprinkles 125 Mg ) 250 mg PO BID [facility] Last Admin: 07/06/24 08:43 Dose: 250 mg Donepezil HCl (Donepezil Hcl 5 Mg Tablet) 5 mg PO BEDTIME [facility] Last Admin: 07/05/24 19:46 Dose: 5 mg Fluticasone Propionate (Fluticasone Propionate Nasal 16 Gm [place]) 2 spray NOSTRIL-B DAILY [facility] Last Admin: 07/06/24 08:43 Dose: 2 spray Levothyroxine Sodium (Levothyroxine Sodium 75 Mcg Tablet) 75 mcg PO DAILY@0600 [facility] Last Admin: 07/06/24 05:20 Dose: 75 mcg Loperamide HCl (Loperamide Hcl 2 Mg Capsule) 2 mg PO Q4H PRN PRN Reason: loose stools Lorazepam (Lorazepam 0.5 Mg Tablet) 0.5 mg PO Q8H PRN PRN Reason: severe anxiety Last Admin: 06/30/24 23:51 Dose: 0.5 mg Magnesium Hydroxide (Milk Of Magnesia 30 Ml Oral.Susp) 30 ml PO DAILY PRN PRN Reason: Constipation Olanzapine (Olanzapine 2.5 Mg Tablet) 2.5 mg PO BID [facility] Last Admin: 07/06/24 08:43 Dose: 2.5 mg Omeprazole (Omeprazole 20 Mg Capsule.Dr) 20 mg PO DAILY@0630 [facility] Last Admin: 07/06/24 05:46 Dose: 20 mg Oxybutynin Chloride (Oxybutynin Chloride Er 5 Mg Tab.Er.24) 15 mg PO DAILY [facility] Last Admin: 07/06/24 08:43 Dose: 15 mg Timolol Maleate (Timolol Maleate 0.5 % Oph Peg 5 Ml Drbtl) 1 drop EYE-BOTH BID [facility] Last Admin: 07/06/24 08:43 Dose: 1 drop Trazodone HCl (Trazodone Hcl 50 Mg Tablet) 50 mg PO BEDTIME MRX1 PRN PRN Reason: Insomnia Last Admin: 06/30/24 23:51 Dose: 50 mg Vitamin D (Cholecalciferol (Vitamin D3) 25 Mcg Tablet) 50 mcg PO DAILY [facility] Last Admin: 07/06/24 08:43 Dose: 50 mcg Allergies Allergies Allergy/AdvReac Type Severity Reaction Status Date / Time sulfamethoxazole Allergy Unknown Verified 03/03/24 14:32 [From Sulfamethoxazole-Trimethoprim] trimethoprim Allergy Unknown Verified 03/03/24 14:32 [From Sulfamethoxazole-Trimethoprim] Assessment & Plan Assessment & Plan (1) 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 Mascorro is an 79 year-old woman with hx of dementia, advanced stages. She was initially admitted to S1 for management of combative and impulsive behaviors secondary to dementia. She was stabilized on combination of depakote, olanzapine. She had episode of brief change in mental status. No VS abnormalities. She was transferred to medical floor for work up of TIA vs stroke, which was negative. Pt transferred back to continue medication management and stabilization and placement. PLAN 06/30 continue tx. 07/01 continue tx. awaiting placement, financial paperwork not completed to submit application for [facility]. 07/02 continue tx. 07/03 continue tx. Reason for continued inpatient stay Substantial Risk for: inability to function Time Spent With Patient Time: Total time managing care of this patient today ____ minutes.
--- NOTE | 2024-07-06 11:34 | HO.PSYCHPN ---
Subjective Subjective Date of Service: 07/06/24 Reason For Visit: Combative Behaviors Subjective Notes: Conditional Voluntary Healthcare Proxy: Yes Interim History: Pt slept through the night. Pt ambulating with walker, no behavioral concerns. VS stable. continues on one to one due to risk for falls. Taking medications as prescribed. Review of Systems Review of Systems No fever, chills or weakness No chest pain, palpitation No shortness of breath or coughing No abdominal pain, nausea or vomiting Yes Unobtainable due to mental status Mental Status Exam Mental Status Exam Narrative: Appearance: casually groomed ambulating with walker. Behavior: calm Psychomotor: no agitation or retardation noted Speech: mumbles, regular high pitch tone, spontaneous TP: concrete TC: ot clear Mood:ok Affect:calm, congruent SI: none HI: none VH/AH: no overt signs Delusions: none noted Insight/judgment: impaired x 2 Memory/cog: alert, not oriented to place, month or year nor situation. severe impairment in memory and cognition. Diagnostics Vital Signs (24Hr): Vital Signs - 24 hr 07/05/24 19:43 07/06/24 08:00 Temperature 96.8 F 97.3 F Pulse Rate 67 74 Respiratory Rate 16 16 Blood Pressure 153/73 H 118/62 Pulse Oximetry 99 97 Oxygen Delivery Method Room Air Room Air BMI result Body Mass Index 20.5 Labs 06/19/24 17:17 06/22/24 11:33 Medications Medications Current Medications Acetaminophen (Acetaminophen 325 Mg Tablet) 650 mg PO Q6H PRN PRN Reason: Headache/Pain, Scale 1-10 Last Admin: 06/11/24 00:27 Dose: 650 mg Al Hydroxide/Mg Hydroxide (Magnesium Hydrox/Alum Hydrox 30 Ml Oral.Susp) 30 ml PO Q6H PRN PRN Reason: Heartburn/Nausea Atorvastatin Calcium (Atorvastatin Calcium 20 Mg Tablet) 20 mg PO BEDTIME [facility] Last Admin: 07/05/24 19:47 Dose: 20 mg Divalproex Sodium (Divalproex Sodium Sprinkles 125 Mg ) 250 mg PO BID [facility] Last Admin: 07/06/24 08:43 Dose: 250 mg Donepezil HCl (Donepezil Hcl 5 Mg Tablet) 5 mg PO BEDTIME [facility] Last Admin: 07/05/24 19:46 Dose: 5 mg Fluticasone Propionate (Fluticasone Propionate Nasal 16 Gm [place]) 2 spray NOSTRIL-B DAILY [facility] Last Admin: 07/06/24 08:43 Dose: 2 spray Levothyroxine Sodium (Levothyroxine Sodium 75 Mcg Tablet) 75 mcg PO DAILY@0600 [facility] Last Admin: 07/06/24 05:20 Dose: 75 mcg Loperamide HCl (Loperamide Hcl 2 Mg Capsule) 2 mg PO Q4H PRN PRN Reason: loose stools Lorazepam (Lorazepam 0.5 Mg Tablet) 0.5 mg PO Q8H PRN PRN Reason: severe anxiety Last Admin: 06/30/24 23:51 Dose: 0.5 mg Magnesium Hydroxide (Milk Of Magnesia 30 Ml Oral.Susp) 30 ml PO DAILY PRN PRN Reason: Constipation Olanzapine (Olanzapine 2.5 Mg Tablet) 2.5 mg PO BID [facility] Last Admin: 07/06/24 08:43 Dose: 2.5 mg Omeprazole (Omeprazole 20 Mg Capsule.Dr) 20 mg PO DAILY@0630 [facility] Last Admin: 07/06/24 05:46 Dose: 20 mg Oxybutynin Chloride (Oxybutynin Chloride Er 5 Mg Tab.Er.24) 15 mg PO DAILY [facility] Last Admin: 07/06/24 08:43 Dose: 15 mg Timolol Maleate (Timolol Maleate 0.5 % Oph Peg 5 Ml Drbtl) 1 drop EYE-BOTH BID [facility] Last Admin: 07/06/24 08:43 Dose: 1 drop Trazodone HCl (Trazodone Hcl 50 Mg Tablet) 50 mg PO BEDTIME MRX1 PRN PRN Reason: Insomnia Last Admin: 06/30/24 23:51 Dose: 50 mg Vitamin D (Cholecalciferol (Vitamin D3) 25 Mcg Tablet) 50 mcg PO DAILY [facility] Last Admin: 07/06/24 08:43 Dose: 50 mcg Allergies Allergies Allergy/AdvReac Type Severity Reaction Status Date / Time sulfamethoxazole Allergy Unknown Verified 03/03/24 14:32 [From Sulfamethoxazole-Trimethoprim] trimethoprim Allergy Unknown Verified 03/03/24 14:32 [From Sulfamethoxazole-Trimethoprim] Assessment & Plan Assessment & Plan (1) 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 Mascorro is an 79 year-old woman with hx of dementia, advanced stages. She was initially admitted to S1 for management of combative and impulsive behaviors secondary to dementia. She was stabilized on combination of depakote, olanzapine. She had episode of brief change in mental status. No VS abnormalities. She was transferred to medical floor for work up of TIA vs stroke, which was negative. Pt transferred back to continue medication management and stabilization and placement. PLAN 06/30 continue tx. 07/01 continue tx. awaiting placement, financial paperwork not completed to submit application for [employer]. 07/02 continue tx. 07/03 continue tx. 07/06 continue tx. awaiting placement. Reason for continued inpatient stay Substantial Risk for: inability to function Time Spent With Patient Time: Total time managing care of this patient today ____ minutes.
[2024-07-06 19:35] VITALS: BP 148/75; PULSE 86; RESP 16; TEMP 36.5; O2SAT 93
[2024-07-06] MEDS: Atorvastatin Calcium 20 MG TABLET PO (19:38)
[2024-07-06] MEDS: Donepezil HCl 5 MG TABLET PO (19:38)
[2024-07-07] MEDS: Levothyroxine Sodium 75 MCG TABLET PO (05:02)
[2024-07-07] MEDS: Omeprazole 20 MG CAPSULE.DR PO (05:28)
[2024-07-07 08:00] VITALS: BP 137/64; PULSE 63; RESP 18; TEMP 36.9; O2SAT 94
[2024-07-07] MEDS: OLANZapine 2.5 MG TABLET PO ×2 (09:04→20:37)
[2024-07-07] MEDS: Cholecalciferol (Vitamin D3) 25 MCG TABLET 50 MCG PO (09:04)
[2024-07-07] MEDS: oxyBUTYnin chloride ER 5 MG TAB.ER.24 15 MG PO (09:04)
[2024-07-07] MEDS: Divalproex Sodium Sprinkles 125 MG CAP.DR.SPR 250 MG PO ×2 (09:04→20:37)
[2024-07-07] MEDS: timoloL maleate 0.5 % Oph Sol 5 ML DRBTL 1 DROP EYE-BOTH ×2 (09:05→20:37)
[2024-07-07] MEDS: Fluticasone Propionate Nasal 16 GM SPRAY 2 SPRAY NOSTRIL-B (09:05)
--- NOTE | 2024-07-07 10:18 | HO.PSYCHPN ---
Subjective Subjective Date of Service: 07/07/24 Reason For Visit: Combative Behaviors Healthcare Proxy: Yes Interim History: Pt slept through the night. She is taking medications as prescribed. She is not oriented to month, year or situation. No behavioral concerns. ambulates with walker, one one to one due to fall risk. VS stable. Denies any physical concern. Review of Systems Review of Systems No fever, chills or weakness No chest pain, palpitation No shortness of breath or coughing No abdominal pain, nausea or vomiting Yes Unobtainable due to mental status Mental Status Exam Mental Status Exam Narrative: Appearance: casually groomed ambulating with walker. Behavior: calm Psychomotor: no agitation or retardation noted Speech: mumbles, regular high pitch tone, spontaneous TP: concrete- wanting to go home TC: wanting to go home Mood:ok Affect:calm, congruent SI: none HI: none VH/AH: no overt signs Delusions: none noted Insight/judgment: impaired x 2 Memory/cog: alert, not oriented to place, month or year nor situation. severe impairment in memory and cognition. Diagnostics Vital Signs (24Hr): Vital Signs - 24 hr 07/06/24 19:35 07/07/24 08:00 Temperature 97.7 F 98.4 F Pulse Rate 86 63 Respiratory Rate 16 18 Blood Pressure 148/75 H 137/64 Pulse Oximetry 93 94 Oxygen Delivery Method Room Air Room Air BMI result Body Mass Index 20.5 Labs 06/19/24 17:17 06/22/24 11:33 Medications Medications Current Medications Acetaminophen (Acetaminophen 325 Mg Tablet) 650 mg PO Q6H PRN PRN Reason: Headache/Pain, Scale 1-10 Last Admin: 06/11/24 00:27 Dose: 650 mg Al Hydroxide/Mg Hydroxide (Magnesium Hydrox/Alum Hydrox 30 Ml Oral.Susp) 30 ml PO Q6H PRN PRN Reason: Heartburn/Nausea Atorvastatin Calcium (Atorvastatin Calcium 20 Mg Tablet) 20 mg PO BEDTIME [facility] Last Admin: 07/06/24 19:38 Dose: 20 mg Divalproex Sodium (Divalproex Sodium Sprinkles 125 Mg ) 250 mg PO BID [facility] Last Admin: 07/07/24 09:04 Dose: 250 mg Donepezil HCl (Donepezil Hcl 5 Mg Tablet) 5 mg PO BEDTIME [facility] Last Admin: 07/06/24 19:38 Dose: 5 mg Fluticasone Propionate (Fluticasone Propionate Nasal 16 Gm [place]) 2 spray NOSTRIL-B DAILY [facility] Last Admin: 07/07/24 09:05 Dose: 2 spray Levothyroxine Sodium (Levothyroxine Sodium 75 Mcg Tablet) 75 mcg PO DAILY@0600 [facility] Last Admin: 07/07/24 05:02 Dose: 75 mcg Loperamide HCl (Loperamide Hcl 2 Mg Capsule) 2 mg PO Q4H PRN PRN Reason: loose stools Lorazepam (Lorazepam 0.5 Mg Tablet) 0.5 mg PO Q8H PRN PRN Reason: severe anxiety Last Admin: 06/30/24 23:51 Dose: 0.5 mg Magnesium Hydroxide (Milk Of Magnesia 30 Ml Oral.Susp) 30 ml PO DAILY PRN PRN Reason: Constipation Olanzapine (Olanzapine 2.5 Mg Tablet) 2.5 mg PO BID [facility] Last Admin: 07/07/24 09:04 Dose: 2.5 mg Omeprazole (Omeprazole 20 Mg Capsule.Dr) 20 mg PO DAILY@0630 [facility] Last Admin: 07/07/24 05:28 Dose: 20 mg Oxybutynin Chloride (Oxybutynin Chloride Er 5 Mg Tab.Er.24) 15 mg PO DAILY [facility] Last Admin: 07/07/24 09:04 Dose: 15 mg Timolol Maleate (Timolol Maleate 0.5 % Oph Peg 5 Ml Drbtl) 1 drop EYE-BOTH BID [facility] Last Admin: 07/07/24 09:05 Dose: 1 drop Trazodone HCl (Trazodone Hcl 50 Mg Tablet) 50 mg PO BEDTIME MRX1 PRN PRN Reason: Insomnia Last Admin: 06/30/24 23:51 Dose: 50 mg Vitamin D (Cholecalciferol (Vitamin D3) 25 Mcg Tablet) 50 mcg PO DAILY [facility] Last Admin: 07/07/24 09:04 Dose: 50 mcg Allergies Allergies Allergy/AdvReac Type Severity Reaction Status Date / Time sulfamethoxazole Allergy Unknown Verified 03/03/24 14:32 [From Sulfamethoxazole-Trimethoprim] trimethoprim Allergy Unknown Verified 03/03/24 14:32 [From Sulfamethoxazole-Trimethoprim] Assessment & Plan Assessment & Plan (1) 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 Mascorro is an 79 year-old woman with hx of dementia, advanced stages. She was initially admitted to [facility] for management of combative and impulsive behaviors secondary to dementia. She was stabilized on combination of depakote, olanzapine. She had episode of brief change in mental status. No VS abnormalities. She was transferred to medical floor for work up of TIA vs stroke, which was negative. Pt transferred back to continue medication management and stabilization and placement. PLAN 06/30 continue tx. 07/01 continue tx. awaiting placement, financial paperwork not completed to submit application for [email or web address]. 07/02 continue tx. 07/03 continue tx. 07/06 continue tx. awaiting placement. 07/07 continue tx. Reason for continued inpatient stay Substantial Risk for: inability to function Time Spent With Patient Time: Total time managing care of this patient today ____ minutes.
[2024-07-07 20:00] VITALS: BP 139/65; PULSE 73; RESP 18; TEMP 36.4; O2SAT 92
[2024-07-07] MEDS: Atorvastatin Calcium 20 MG TABLET PO (20:37)
[2024-07-07] MEDS: Donepezil HCl 5 MG TABLET PO (20:37)
[2024-07-07] MEDS: traZODone HCL 50 MG TABLET PO (20:37)
[2024-07-08] MEDS: traZODone HCL 50 MG TABLET PO ×2 (00:17→23:58)
[2024-07-08] MEDS: Levothyroxine Sodium 75 MCG TABLET PO (06:04)
[2024-07-08] MEDS: Omeprazole 20 MG CAPSULE.DR PO (06:10)
[2024-07-08 08:00] VITALS: BP 121/62; PULSE 75; RESP 18; TEMP 36.4; O2SAT 95
[2024-07-08] MEDS: timoloL maleate 0.5 % Oph Sol 5 ML DRBTL 1 DROP EYE-BOTH ×2 (08:54→20:01)
[2024-07-08] MEDS: oxyBUTYnin chloride ER 5 MG TAB.ER.24 15 MG PO (08:55)
[2024-07-08] MEDS: OLANZapine 2.5 MG TABLET PO ×2 (08:55→19:42)
[2024-07-08] MEDS: Fluticasone Propionate Nasal 16 GM SPRAY 2 SPRAY NOSTRIL-B (08:55)
[2024-07-08] MEDS: Divalproex Sodium Sprinkles 125 MG CAP.DR.SPR 250 MG PO ×2 (08:55→19:42)
[2024-07-08] MEDS: Cholecalciferol (Vitamin D3) 25 MCG TABLET 50 MCG PO (08:55)
--- NOTE | 2024-07-08 10:18 | P.PNPSI_ITS ---
Subjective Subjective Date of Service: 07/08/24 Reason For Visit: Combative Behaviors Subjective Notes: Conditional Voluntary Healthcare Proxy: Yes Interim History: Pt slept through the night. She is taking medications as prescribed. She is not oriented to month, year or situation. No behavioral concerns. ambulates with walker, one one to one due to fall risk. VS stable. Denies any physical concern. Review of Systems Review of Systems No fever, chills or weakness No chest pain, palpitation No shortness of breath or coughing No abdominal pain, nausea or vomiting Yes Unobtainable due to mental status Mental Status Exam Mental Status Exam Narrative: Appearance: casually groomed ambulating with walker. Behavior: calm Psychomotor: no agitation or retardation noted Speech: mumbles, regular high pitch tone, spontaneous TP: concrete- wanting to go home TC: wanting to go home Mood:ok Affect:calm, congruent SI: none HI: none VH/AH: no overt signs Delusions: none noted Insight/judgment: impaired x 2 Memory/cog: alert, not oriented to place, month or year nor situation. severe impairment in memory and cognition. Diagnostics Vital Signs (24Hr): Vital Signs - 24 hr 07/07/24 20:00 07/08/24 08:00 Temperature 97.6 F 97.5 F Pulse Rate 73 75 Respiratory Rate 18 18 Blood Pressure 139/65 121/62 Pulse Oximetry 92 95 Oxygen Delivery Method Room Air Room Air BMI result Body Mass Index 20.5 Labs 06/19/24 17:17 06/22/24 11:33 Medications Medications Current Medications Acetaminophen (Acetaminophen 325 Mg Tablet) 650 mg PO Q6H PRN PRN Reason: Headache/Pain, Scale 1-10 Last Admin: 06/11/24 00:27 Dose: 650 mg Al Hydroxide/Mg Hydroxide (Magnesium Hydrox/Alum Hydrox 30 Ml Oral.Susp) 30 ml PO Q6H PRN PRN Reason: Heartburn/Nausea Atorvastatin Calcium (Atorvastatin Calcium 20 Mg Tablet) 20 mg PO BEDTIME [facility] Last Admin: 07/07/24 20:37 Dose: 20 mg Divalproex Sodium (Divalproex Sodium Sprinkles 125 Mg ) 250 mg PO BID [facility] Last Admin: 07/08/24 08:55 Dose: 250 mg Donepezil HCl (Donepezil Hcl 5 Mg Tablet) 5 mg PO BEDTIME [facility] Last Admin: 07/07/24 20:37 Dose: 5 mg Fluticasone Propionate (Fluticasone Propionate Nasal 16 Gm [place]) 2 spray NOSTRIL-B DAILY [facility] Last Admin: 07/08/24 08:55 Dose: 2 spray Levothyroxine Sodium (Levothyroxine Sodium 75 Mcg Tablet) 75 mcg PO DAILY@0600 [facility] Last Admin: 07/08/24 06:04 Dose: 75 mcg Loperamide HCl (Loperamide Hcl 2 Mg Capsule) 2 mg PO Q4H PRN PRN Reason: loose stools Lorazepam (Lorazepam 0.5 Mg Tablet) 0.5 mg PO Q8H PRN PRN Reason: severe anxiety Last Admin: 06/30/24 23:51 Dose: 0.5 mg Magnesium Hydroxide (Milk Of Magnesia 30 Ml Oral.Susp) 30 ml PO DAILY PRN PRN Reason: Constipation Olanzapine (Olanzapine 2.5 Mg Tablet) 2.5 mg PO BID [facility] Last Admin: 07/08/24 08:55 Dose: 2.5 mg Omeprazole (Omeprazole 20 Mg Capsule.Dr) 20 mg PO DAILY@0630 [facility] Last Admin: 07/08/24 06:10 Dose: 20 mg Oxybutynin Chloride (Oxybutynin Chloride Er 5 Mg Tab.Er.24) 15 mg PO DAILY [facility] Last Admin: 07/08/24 08:55 Dose: 15 mg Timolol Maleate (Timolol Maleate 0.5 % Oph Peg 5 Ml Drbtl) 1 drop EYE-BOTH BID [facility] Last Admin: 07/08/24 08:54 Dose: 1 drop Trazodone HCl (Trazodone Hcl 50 Mg Tablet) 50 mg PO BEDTIME MRX1 PRN PRN Reason: Insomnia Last Admin: 07/08/24 00:17 Dose: 50 mg Vitamin D (Cholecalciferol (Vitamin D3) 25 Mcg Tablet) 50 mcg PO DAILY [facility] Last Admin: 07/08/24 08:55 Dose: 50 mcg Allergies Allergies Allergy/AdvReac Type Severity Reaction Status Date / Time sulfamethoxazole Allergy Unknown Verified 03/03/24 14:32 [From Sulfamethoxazole-Trimethoprim] trimethoprim Allergy Unknown Verified 03/03/24 14:32 [From Sulfamethoxazole-Trimethoprim] Assessment & Plan Assessment & Plan (1) 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 Mascorro is an 79 year-old woman with hx of dementia, advanced stages. She was initially admitted to S1 for management of combative and impulsive behaviors secondary to dementia. She was stabilized on combination of depakote, olanzapine. She had episode of brief change in mental status. No VS abnormalities. She was transferred to medical floor for work up of TIA vs stroke, which was negative. Pt transferred back to continue medication management and stabilization and placement. PLAN 06/30 continue tx. 07/01 continue tx. awaiting placement, financial paperwork not completed to submit application for [employer]. 07/02 continue tx. 07/03 continue tx. 07/06 continue tx. awaiting placement. 07/07 continue tx. 07/08 continue tx. Reason for continued inpatient stay Substantial Risk for: inability to function Time Spent With Patient Time: Total time managing care of this patient today ____ minutes.
[2024-07-08] MEDS: Milk of Magnesia 30 ML ORAL.SUSP PO (18:33)
[2024-07-08 19:39] VITALS: BP 164/75; PULSE 80; RESP 16; TEMP 36.8; O2SAT 92
[2024-07-08] MEDS: Atorvastatin Calcium 20 MG TABLET PO (19:42)
[2024-07-08] MEDS: Donepezil HCl 5 MG TABLET PO (19:42)
[2024-07-08] MEDS: Acetaminophen 325 MG TABLET 650 MG PO (23:58)
[2024-07-09] MEDS: Levothyroxine Sodium 75 MCG TABLET PO (06:05)
[2024-07-09] MEDS: Omeprazole 20 MG CAPSULE.DR PO (06:15)
[2024-07-09 08:00] VITALS: BP 149/72; PULSE 60; RESP 17; TEMP 36.9; O2SAT 95
[2024-07-09] MEDS: Divalproex Sodium Sprinkles 125 MG CAP.DR.SPR 250 MG PO ×2 (08:49→20:32)
[2024-07-09] MEDS: oxyBUTYnin chloride ER 5 MG TAB.ER.24 15 MG PO (08:49)
[2024-07-09] MEDS: Cholecalciferol (Vitamin D3) 25 MCG TABLET 50 MCG PO (08:49)
[2024-07-09] MEDS: OLANZapine 2.5 MG TABLET PO ×2 (08:49→20:32)
[2024-07-09] MEDS: Fluticasone Propionate Nasal 16 GM SPRAY 2 SPRAY NOSTRIL-B (08:56)
[2024-07-09] MEDS: timoloL maleate 0.5 % Oph Sol 5 ML DRBTL 1 DROP EYE-BOTH ×2 (08:57→20:32)
[2024-07-09 10:27] VITALS: BMI 20.1
--- NOTE | 2024-07-09 16:09 | P.PNPSI_ITS ---
Subjective Subjective Date of Service: 07/09/24 Reason For Visit: Combative Behaviors Interim History: no questions or complaints. napping after lunch. 1:1 at bedside. Mental Status Exam Mental Status Exam Narrative: Appearance: casually groomed in bed Behavior: calm Psychomotor: no agitation or retardation noted Speech: mute today TP: concrete TC: no questions Mood:ok Affect:calm, congruent SI: none expressed HI: none expressed VH/AH: no overt signs Delusions: none noted Insight/judgment: impaired x 2 Memory/cog: alert, not oriented to place, month or year nor situation. severe impairment in memory and cognition. Diagnostics Vital Signs (24Hr): Vital Signs - 24 hr 07/08/24 19:39 07/09/24 08:00 Temperature 98.2 F 98.4 F Pulse Rate 80 60 Respiratory Rate 16 17 Blood Pressure 164/75 H 149/72 H Pulse Oximetry 92 95 Oxygen Delivery Method Room Air Room Air BMI result Body Mass Index 20.1 Labs 06/19/24 17:17 06/22/24 11:33 Medications Medications Current Medications Acetaminophen (Acetaminophen 325 Mg Tablet) 650 mg PO Q6H PRN PRN Reason: Headache/Pain, Scale 1-10 Last Admin: 07/08/24 23:58 Dose: 650 mg Al Hydroxide/Mg Hydroxide (Magnesium Hydrox/Alum Hydrox 30 Ml Oral.Susp) 30 ml PO Q6H PRN PRN Reason: Heartburn/Nausea Atorvastatin Calcium (Atorvastatin Calcium 20 Mg Tablet) 20 mg PO BEDTIME [facility] Last Admin: 07/08/24 19:42 Dose: 20 mg Divalproex Sodium (Divalproex Sodium Sprinkles 125 Mg ) 250 mg PO BID [facility] Last Admin: 07/09/24 08:49 Dose: 250 mg Donepezil HCl (Donepezil Hcl 5 Mg Tablet) 5 mg PO BEDTIME [facility] Last Admin: 07/08/24 19:42 Dose: 5 mg Fluticasone Propionate (Fluticasone Propionate Nasal 16 Gm [place]) 2 spray NOSTRIL-B DAILY [facility] Last Admin: 07/09/24 08:56 Dose: 2 spray Levothyroxine Sodium (Levothyroxine Sodium 75 Mcg Tablet) 75 mcg PO DAILY@0600 [facility] Last Admin: 07/09/24 06:05 Dose: 75 mcg Loperamide HCl (Loperamide Hcl 2 Mg Capsule) 2 mg PO Q4H PRN PRN Reason: loose stools Lorazepam (Lorazepam 0.5 Mg Tablet) 0.5 mg PO Q8H PRN PRN Reason: severe anxiety Last Admin: 06/30/24 23:51 Dose: 0.5 mg Magnesium Hydroxide (Milk Of Magnesia 30 Ml Oral.Susp) 30 ml PO DAILY PRN PRN Reason: Constipation Last Admin: 07/08/24 18:33 Dose: 30 ml Olanzapine (Olanzapine 2.5 Mg Tablet) 2.5 mg PO BID [facility] Last Admin: 07/09/24 08:49 Dose: 2.5 mg Omeprazole (Omeprazole 20 Mg Capsule.Dr) 20 mg PO DAILY@0630 [facility] Last Admin: 07/09/24 06:15 Dose: 20 mg Oxybutynin Chloride (Oxybutynin Chloride Er 5 Mg Tab.Er.24) 15 mg PO DAILY [facility] Last Admin: 07/09/24 08:49 Dose: 15 mg Timolol Maleate (Timolol Maleate 0.5 % Oph Peg 5 Ml Drbtl) 1 drop EYE-BOTH BID [facility] Last Admin: 07/09/24 08:57 Dose: 1 drop Trazodone HCl (Trazodone Hcl 50 Mg Tablet) 50 mg PO BEDTIME MRX1 PRN PRN Reason: Insomnia Last Admin: 07/08/24 23:58 Dose: 50 mg Vitamin D (Cholecalciferol (Vitamin D3) 25 Mcg Tablet) 50 mcg PO DAILY [facility] Last Admin: 07/09/24 08:49 Dose: 50 mcg Allergies Allergies Allergy/AdvReac Type Severity Reaction Status Date / Time sulfamethoxazole Allergy Unknown Verified 03/03/24 14:32 [From Sulfamethoxazole-Trimethoprim] trimethoprim Allergy Unknown Verified 03/03/24 14:32 [From Sulfamethoxazole-Trimethoprim] Assessment & Plan Assessment & Plan (1) 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 Mascorro is an 79 year-old woman with hx of dementia, advanced stages. She was initially admitted to for management of combative and impulsive behaviors secondary to dementia. She was stabilized on combination of depakote, olanzapine. She had episode of brief change in mental status. No VS abnormalities. She was transferred to medical floor for work up of TIA vs stroke, which was negative. Pt transferred back to continue medication management and stabilization and placement. PLAN 06/30 continue tx. 07/01 continue tx. awaiting placement, financial paperwork not completed to submit application for [employer]. 07/02 continue tx. 07/03 continue tx. 07/06 continue tx. awaiting placement. 07/07 continue tx. 07/08 continue tx. 07/09: no change. continue current mgmt. Reason for continued inpatient stay Substantial Risk for: inability to function Time Spent With Patient Time: Total time managing care of this patient today ____ minutes.
[2024-07-09 20:00] VITALS: BP 131/60; PULSE 75; RESP 16; TEMP 36.6; O2SAT 94
[2024-07-09] MEDS: Donepezil HCl 5 MG TABLET PO (20:32)
[2024-07-09] MEDS: Atorvastatin Calcium 20 MG TABLET PO (20:32)
[2024-07-10] MEDS: traZODone HCL 50 MG TABLET PO ×3 (00:37→20:35)
[2024-07-10] MEDS: Levothyroxine Sodium 75 MCG TABLET PO (06:05)
[2024-07-10] MEDS: Omeprazole 20 MG CAPSULE.DR PO (06:05)
[2024-07-10 08:00] VITALS: BP 128/69; PULSE 73; RESP 20; TEMP 36.6; O2SAT 92
[2024-07-10] MEDS: Cholecalciferol (Vitamin D3) 25 MCG TABLET 50 MCG PO (08:02)
[2024-07-10] MEDS: OLANZapine 2.5 MG TABLET PO ×2 (08:02→20:35)
[2024-07-10] MEDS: Divalproex Sodium Sprinkles 125 MG CAP.DR.SPR 250 MG PO ×2 (08:03→20:35)
[2024-07-10] MEDS: oxyBUTYnin chloride ER 5 MG TAB.ER.24 15 MG PO (08:03)
[2024-07-10] MEDS: Fluticasone Propionate Nasal 16 GM SPRAY 2 SPRAY NOSTRIL-B (08:07)
[2024-07-10] MEDS: timoloL maleate 0.5 % Oph Sol 5 ML DRBTL 1 DROP EYE-BOTH ×2 (08:07→20:43)
--- NOTE | 2024-07-10 13:47 | HO.PSYCHPN ---
Subjective Subjective Date of Service: 07/10/24 Reason For Visit: Combative Behaviors Interim History: [place]. unintelligible. no cogent complaints or requests. 1:1 at bedside helping out of the toilet. per staff, small BM overnight. slept only 2 hours. MOM for constipation. Mental Status Exam Mental Status Exam Narrative: Appearance: casually groomed in bed Behavior: calm Psychomotor: no agitation or retardation noted Speech: garbled, difficult to understand TP: concrete TC: no questions Mood:ok Affect:calm, congruent SI: none expressed HI: none expressed VH/AH: no overt signs Delusions: none noted Insight/judgment: impaired x 2 Memory/cog: alert, not oriented to place, month or year nor situation. severe impairment in memory and cognition. Diagnostics Vital Signs (24Hr): Vital Signs - 24 hr 07/09/24 20:00 07/10/24 08:00 Temperature 97.9 F 97.9 F Pulse Rate 75 73 Respiratory Rate 16 20 Blood Pressure 131/60 128/69 Pulse Oximetry 94 92 Oxygen Delivery Method Room Air Room Air BMI result Body Mass Index 20.1 Labs 06/19/24 17:17 06/22/24 11:33 Medications Medications Current Medications Acetaminophen (Acetaminophen 325 Mg Tablet) 650 mg PO Q6H PRN PRN Reason: Headache/Pain, Scale 1-10 Last Admin: 07/08/24 23:58 Dose: 650 mg Al Hydroxide/Mg Hydroxide (Magnesium Hydrox/Alum Hydrox 30 Ml Oral.Susp) 30 ml PO Q6H PRN PRN Reason: Heartburn/Nausea Atorvastatin Calcium (Atorvastatin Calcium 20 Mg Tablet) 20 mg PO BEDTIME [facility] Last Admin: 07/09/24 20:32 Dose: 20 mg Divalproex Sodium (Divalproex Sodium Sprinkles 125 Mg ) 250 mg PO BID [facility] Last Admin: 07/10/24 08:03 Dose: 250 mg Donepezil HCl (Donepezil Hcl 5 Mg Tablet) 5 mg PO BEDTIME [facility] Last Admin: 07/09/24 20:32 Dose: 5 mg Fluticasone Propionate (Fluticasone Propionate Nasal 16 Gm [place]) 2 spray NOSTRIL-B DAILY [facility] Last Admin: 07/10/24 08:07 Dose: 2 spray Levothyroxine Sodium (Levothyroxine Sodium 75 Mcg Tablet) 75 mcg PO DAILY@0600 [facility] Last Admin: 07/10/24 06:05 Dose: 75 mcg Loperamide HCl (Loperamide Hcl 2 Mg Capsule) 2 mg PO Q4H PRN PRN Reason: loose stools Lorazepam (Lorazepam 0.5 Mg Tablet) 0.5 mg PO Q8H PRN PRN Reason: severe anxiety Last Admin: 06/30/24 23:51 Dose: 0.5 mg Magnesium Hydroxide (Milk Of Magnesia 30 Ml Oral.Susp) 30 ml PO DAILY PRN PRN Reason: Constipation Last Admin: 07/08/24 18:33 Dose: 30 ml Olanzapine (Olanzapine 2.5 Mg Tablet) 2.5 mg PO BID [facility] Last Admin: 07/10/24 08:02 Dose: 2.5 mg Omeprazole (Omeprazole 20 Mg Capsule.Dr) 20 mg PO DAILY@0630 [facility] Last Admin: 07/10/24 06:05 Dose: 20 mg Oxybutynin Chloride (Oxybutynin Chloride Er 5 Mg Tab.Er.24) 15 mg PO DAILY [facility] Last Admin: 07/10/24 08:03 Dose: 15 mg Timolol Maleate (Timolol Maleate 0.5 % Oph Peg 5 Ml Drbtl) 1 drop EYE-BOTH BID [facility] Last Admin: 07/10/24 08:07 Dose: 1 drop Trazodone HCl (Trazodone Hcl 50 Mg Tablet) 50 mg PO BEDTIME MRX1 PRN PRN Reason: Insomnia Last Admin: 07/10/24 01:37 Dose: 50 mg Vitamin D (Cholecalciferol (Vitamin D3) 25 Mcg Tablet) 50 mcg PO DAILY [facility] Last Admin: 07/10/24 08:02 Dose: 50 mcg Allergies Allergies Allergy/AdvReac Type Severity Reaction Status Date / Time sulfamethoxazole Allergy Unknown Verified 03/03/24 14:32 [From Sulfamethoxazole-Trimethoprim] trimethoprim Allergy Unknown Verified 03/03/24 14:32 [From Sulfamethoxazole-Trimethoprim] Assessment & Plan Assessment & Plan (1) 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 Mascorro is an 79 year-old woman with hx of dementia, advanced stages. She was initially admitted to S1 for management of combative and impulsive behaviors secondary to dementia. She was stabilized on combination of depakote, olanzapine. She had episode of brief change in mental status. No VS abnormalities. She was transferred to medical floor for work up of TIA vs stroke, which was negative. Pt transferred back to continue medication management and stabilization and placement. PLAN 06/30 continue tx. 07/01 continue tx. awaiting placement, financial paperwork not completed to submit application for [employer]. 07/02 continue tx. 07/03 continue tx. 07/06 continue tx. awaiting placement. 07/07 continue tx. 07/08 continue tx. 07/09: no change. continue current mgmt. 07/10: poor sleep overnight of 2 hours. constipation, small BM overnight. continue current mgmt for now. Reason for continued inpatient stay Substantial Risk for: inability to function Time Spent With Patient Time: Total time managing care of this patient today ____ minutes.
[2024-07-10 20:00] VITALS: BP 159/72; PULSE 81; RESP 18; TEMP 36.5; O2SAT 95
[2024-07-10] MEDS: Donepezil HCl 5 MG TABLET PO (20:35)
[2024-07-10] MEDS: Atorvastatin Calcium 20 MG TABLET PO (20:35)
[2024-07-11] MEDS: LORazepam 0.5 MG TABLET PO ×2 (01:11→20:46)
[2024-07-11] MEDS: Levothyroxine Sodium 75 MCG TABLET PO (05:09)
[2024-07-11] MEDS: Omeprazole 20 MG CAPSULE.DR PO (06:45)
[2024-07-11 08:00] VITALS: BP 132/78; PULSE 76; RESP 18; TEMP 36.7; O2SAT 94
[2024-07-11] MEDS: timoloL maleate 0.5 % Oph Sol 5 ML DRBTL 1 DROP EYE-BOTH ×2 (10:19→20:50)
[2024-07-11] MEDS: oxyBUTYnin chloride ER 5 MG TAB.ER.24 15 MG PO (10:20)
[2024-07-11] MEDS: Fluticasone Propionate Nasal 16 GM SPRAY 2 SPRAY NOSTRIL-B (10:20)
[2024-07-11] MEDS: Divalproex Sodium Sprinkles 125 MG CAP.DR.SPR 250 MG PO ×2 (10:21→20:46)
[2024-07-11] MEDS: OLANZapine 2.5 MG TABLET PO ×2 (10:22→20:45)
[2024-07-11] MEDS: Cholecalciferol (Vitamin D3) 25 MCG TABLET 50 MCG PO (10:22)
--- NOTE | 2024-07-11 16:32 | P.PNPSI_ITS ---
Subjective Subjective Date of Service: 07/11/24 Reason For Visit: Combative Behaviors Interim History: met with patient; discussed with team Vitals WNL Patient says to principal technical writer what do you want... And when asked how she is doing she says ... All right I guess Mental Status Exam Mental Status Exam Narrative: Appearance: casually groomed in bed Behavior: calm Psychomotor: no agitation or retardation noted Speech: garbled, difficult to understand TP: concrete TC: no questions Mood: alright i guess Affect:calm, congruent SI: none expressed HI: none expressed VH/AH: no overt signs Delusions: none noted Insight/judgment: impaired x 2 Memory/cog: alert, not oriented to place, month or year nor situation. severe impairment in memory and cognition. Diagnostics Vital Signs (24Hr): Vital Signs - 24 hr 07/10/24 20:00 07/11/24 08:00 Temperature 97.7 F 98.1 F Pulse Rate 81 76 Respiratory Rate 18 18 Blood Pressure 159/72 H 132/78 Pulse Oximetry 95 94 Oxygen Delivery Method Room Air Room Air BMI result Body Mass Index 20.1 Labs 07/29/24 07:29 07/31/24 07:31 Medications Medications Current Medications Acetaminophen (Acetaminophen 325 Mg Tablet) 650 mg PO Q6H PRN PRN Reason: Headache/Pain, Scale 1-10 Last Admin: 07/08/24 23:58 Dose: 650 mg Al Hydroxide/Mg Hydroxide (Magnesium Hydrox/Alum Hydrox 30 Ml Oral.Susp) 30 ml PO Q6H PRN PRN Reason: Heartburn/Nausea Atorvastatin Calcium (Atorvastatin Calcium 20 Mg Tablet) 20 mg PO BEDTIME [facility] Last Admin: 07/10/24 20:35 Dose: 20 mg Divalproex Sodium (Divalproex Sodium Sprinkles 125 Mg ) 250 mg PO BID [facility] Last Admin: 07/11/24 10:21 Dose: 250 mg Donepezil HCl (Donepezil Hcl 5 Mg Tablet) 5 mg PO BEDTIME [facility] Last Admin: 07/10/24 20:35 Dose: 5 mg Fluticasone Propionate (Fluticasone Propionate Nasal 16 Gm [place]) 2 spray NOSTRIL-B DAILY [facility] Last Admin: 07/11/24 10:20 Dose: 2 spray Levothyroxine Sodium (Levothyroxine Sodium 75 Mcg Tablet) 75 mcg PO DAILY@0600 [facility] Last Admin: 07/11/24 05:09 Dose: 75 mcg Loperamide HCl (Loperamide Hcl 2 Mg Capsule) 2 mg PO Q4H PRN PRN Reason: loose stools Lorazepam (Lorazepam 0.5 Mg Tablet) 0.5 mg PO Q8H PRN PRN Reason: severe anxiety Last Admin: 07/11/24 01:11 Dose: 0.5 mg Magnesium Hydroxide (Milk Of Magnesia 30 Ml Oral.Susp) 30 ml PO DAILY PRN PRN Reason: Constipation Last Admin: 07/08/24 18:33 Dose: 30 ml Olanzapine (Olanzapine 2.5 Mg Tablet) 2.5 mg PO BID [facility] Last Admin: 07/11/24 10:22 Dose: 2.5 mg Omeprazole (Omeprazole 20 Mg Capsule.Dr) 20 mg PO DAILY@0630 [facility] Last Admin: 07/11/24 06:45 Dose: 20 mg Oxybutynin Chloride (Oxybutynin Chloride Er 5 Mg Tab.Er.24) 15 mg PO DAILY [facility] Last Admin: 07/11/24 10:20 Dose: 15 mg Timolol Maleate (Timolol Maleate 0.5 % Oph Peg 5 Ml Drbtl) 1 drop EYE-BOTH BID [facility] Last Admin: 07/11/24 10:19 Dose: 1 drop Trazodone HCl (Trazodone Hcl 50 Mg Tablet) 50 mg PO BEDTIME MRX1 PRN PRN Reason: Insomnia Last Admin: 07/10/24 20:35 Dose: 50 mg Vitamin D (Cholecalciferol (Vitamin D3) 25 Mcg Tablet) 50 mcg PO DAILY [facility] Last Admin: 07/11/24 10:22 Dose: 50 mcg Allergies Allergies Allergy/AdvReac Type Severity Reaction Status Date / Time sulfamethoxazole Allergy Unknown Verified 03/03/24 14:32 [From Sulfamethoxazole-Trimethoprim] trimethoprim Allergy Unknown Verified 03/03/24 14:32 [From Sulfamethoxazole-Trimethoprim] Assessment & Plan Assessment & Plan (1) 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 Mascorro is an 79 year-old woman with hx of dementia, advanced stages. She was initially admitted to [facility] for management of combative and impulsive behaviors secondary to dementia. She was stabilized on combination of depakote, olanzapine. She had episode of brief change in mental status. No VS abnormalities. She was transferred to medical floor for work up of TIA vs stroke, which was negative. Pt transferred back to continue medication management and stabilization and placement. PLAN 06/30 continue tx. 07/01 continue tx. awaiting placement, financial paperwork not completed to submit application for [employer]. 07/02 continue tx. 07/03 continue tx. 07/06 continue tx. awaiting placement. 07/07 continue tx. 07/08 continue tx. 07/09: no change. continue current mgmt. 07/10: poor sleep overnight of 2 hours. constipation, small BM overnight. continue current mgmt for now. 07/11: Patient remained stable; no change in presentation; continue treatment plan Patient educated on: diagnosis Informed Consent: understands and does not understand Reason for continued inpatient stay Substantial Risk for: inability to function Time Spent With Patient Time: Total time managing care of this patient today ____ minutes.
[2024-07-11 19:27] VITALS: BP 127/75; PULSE 92; RESP 16; TEMP 36.2; O2SAT 92
[2024-07-11] MEDS: Atorvastatin Calcium 20 MG TABLET PO (20:45)
[2024-07-11] MEDS: traZODone HCL 50 MG TABLET PO ×2 (20:45→23:34)
[2024-07-11] MEDS: Donepezil HCl 5 MG TABLET PO (20:46)
[2024-07-11] MEDS: Acetaminophen 325 MG TABLET 650 MG PO (23:34)
[2024-07-12] MEDS: Levothyroxine Sodium 75 MCG TABLET PO (06:00)
[2024-07-12] MEDS: Omeprazole 20 MG CAPSULE.DR PO (06:24)
[2024-07-12 08:00] VITALS: BP 120/56; PULSE 78; RESP 14; TEMP 36.5; O2SAT 93
[2024-07-12] MEDS: OLANZapine 2.5 MG TABLET PO ×2 (08:54→20:11)
[2024-07-12] MEDS: Divalproex Sodium Sprinkles 125 MG CAP.DR.SPR 250 MG PO ×2 (08:55→20:11)
[2024-07-12] MEDS: oxyBUTYnin chloride ER 5 MG TAB.ER.24 15 MG PO (08:55)
[2024-07-12] MEDS: Cholecalciferol (Vitamin D3) 25 MCG TABLET 50 MCG PO (08:55)
[2024-07-12] MEDS: Fluticasone Propionate Nasal 16 GM SPRAY 2 SPRAY NOSTRIL-B (11:42)
[2024-07-12] MEDS: timoloL maleate 0.5 % Oph Sol 5 ML DRBTL 1 DROP EYE-BOTH ×2 (11:42→20:11)
[2024-07-12 20:00] VITALS: BP 154/66; PULSE 80; RESP 16; TEMP 36.8; O2SAT 95
[2024-07-12] MEDS: Donepezil HCl 5 MG TABLET PO (20:11)
[2024-07-12] MEDS: Atorvastatin Calcium 20 MG TABLET PO (20:11)
--- NOTE | 2024-07-12 21:20 | HO.PSYCHPN ---
Subjective Subjective Date of Service: 07/12/24 Reason For Visit: Combative Behaviors Interim History: Met with patient; discussed with team On approach patient sleeping. Staff reports same presentation with no problems, no complaints; Necktie Centralizing Machine Operator felt unnecessary to wake patient Mental Status Exam Mental Status Exam Narrative: Currently sleeping Appearance: casually groomed in bed Behavior: calm Psychomotor: no agitation or retardation noted Speech: garbled, difficult to understand TP: concrete TC: no questions Mood: Affect:calm, congruent SI: none expressed HI: none expressed VH/AH: no overt signs Delusions: none noted Insight/judgment: impaired x 2 Memory/cog: alert, not oriented to place, month or year nor situation. severe impairment in memory and cognition. Diagnostics Vital Signs (24Hr): Vital Signs - 24 hr 07/12/24 08:00 Temperature 97.7 F Pulse Rate 78 Respiratory Rate 14 Blood Pressure 120/56 L Pulse Oximetry 93 Oxygen Delivery Method Room Air BMI result Body Mass Index 20.1 Labs 07/29/24 07:29 07/31/24 07:31 Medications Medications Current Medications Acetaminophen (Acetaminophen 325 Mg Tablet) 650 mg PO Q6H PRN PRN Reason: Headache/Pain, Scale 1-10 Last Admin: 07/11/24 23:34 Dose: 650 mg Al Hydroxide/Mg Hydroxide (Magnesium Hydrox/Alum Hydrox 30 Ml Oral.Susp) 30 ml PO Q6H PRN PRN Reason: Heartburn/Nausea Atorvastatin Calcium (Atorvastatin Calcium 20 Mg Tablet) 20 mg PO BEDTIME [facility] Last Admin: 07/12/24 20:11 Dose: 20 mg Divalproex Sodium (Divalproex Sodium Sprinkles 125 Mg ) 250 mg PO BID [facility] Last Admin: 07/12/24 20:11 Dose: 250 mg Donepezil HCl (Donepezil Hcl 5 Mg Tablet) 5 mg PO BEDTIME [facility] Last Admin: 07/12/24 20:11 Dose: 5 mg Fluticasone Propionate (Fluticasone Propionate Nasal 16 Gm [place]) 2 spray NOSTRIL-B DAILY [facility] Last Admin: 07/12/24 11:42 Dose: 2 spray Levothyroxine Sodium (Levothyroxine Sodium 75 Mcg Tablet) 75 mcg PO DAILY@0600 [facility] Last Admin: 07/12/24 06:00 Dose: 75 mcg Loperamide HCl (Loperamide Hcl 2 Mg Capsule) 2 mg PO Q4H PRN PRN Reason: loose stools Lorazepam (Lorazepam 0.5 Mg Tablet) 0.5 mg PO Q8H PRN PRN Reason: severe anxiety Last Admin: 07/11/24 20:46 Dose: 0.5 mg Magnesium Hydroxide (Milk Of Magnesia 30 Ml Oral.Susp) 30 ml PO DAILY PRN PRN Reason: Constipation Last Admin: 07/08/24 18:33 Dose: 30 ml Olanzapine (Olanzapine 2.5 Mg Tablet) 2.5 mg PO BID [facility] Last Admin: 07/12/24 20:11 Dose: 2.5 mg Omeprazole (Omeprazole 20 Mg Capsule.Dr) 20 mg PO DAILY@0630 [facility] Last Admin: 07/12/24 06:24 Dose: 20 mg Oxybutynin Chloride (Oxybutynin Chloride Er 5 Mg Tab.Er.24) 15 mg PO DAILY [facility] Last Admin: 07/12/24 08:55 Dose: 15 mg Timolol Maleate (Timolol Maleate 0.5 % Oph Peg 5 Ml Drbtl) 1 drop EYE-BOTH BID [facility] Last Admin: 07/12/24 20:11 Dose: 1 drop Trazodone HCl (Trazodone Hcl 50 Mg Tablet) 50 mg PO BEDTIME MRX1 PRN PRN Reason: Insomnia Last Admin: 07/11/24 23:34 Dose: 50 mg Vitamin D (Cholecalciferol (Vitamin D3) 25 Mcg Tablet) 50 mcg PO DAILY [facility] Last Admin: 07/12/24 08:55 Dose: 50 mcg Allergies Allergies Allergy/AdvReac Type Severity Reaction Status Date / Time sulfamethoxazole Allergy Unknown Verified 03/03/24 14:32 [From Sulfamethoxazole-Trimethoprim] trimethoprim Allergy Unknown Verified 03/03/24 14:32 [From Sulfamethoxazole-Trimethoprim] Assessment & Plan Assessment & Plan (1) 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 Mascorro is an 79 year-old woman with hx of dementia, advanced stages. She was initially admitted to for management of combative and impulsive behaviors secondary to dementia. She was stabilized on combination of depakote, olanzapine. She had episode of brief change in mental status. No VS abnormalities. She was transferred to medical floor for work up of TIA vs stroke, which was negative. Pt transferred back to continue medication management and stabilization and placement. PLAN 06/30 continue tx. 07/01 continue tx. awaiting placement, financial paperwork not completed to submit application for [employer]. 07/02 continue tx. 07/03 continue tx. 07/06 continue tx. awaiting placement. 07/07 continue tx. 07/08 continue tx. 07/09: no change. continue current mgmt. 07/10: poor sleep overnight of 2 hours. constipation, small BM overnight. continue current mgmt for now. 07/11: Patient remained stable; no change in presentation; continue treatment plan 07/12; no change in presentation; continue treatment but Reason for continued inpatient stay Substantial Risk for: inability to function Time Spent With Patient Time: Total time managing care of this patient today ____ minutes.
[2024-07-13] MEDS: Levothyroxine Sodium 75 MCG TABLET PO (05:52)
[2024-07-13] MEDS: Omeprazole 20 MG CAPSULE.DR PO (05:54)
[2024-07-13] MEDS: Fluticasone Propionate Nasal 16 GM SPRAY 2 SPRAY NOSTRIL-B (08:47)
[2024-07-13] MEDS: timoloL maleate 0.5 % Oph Sol 5 ML DRBTL 1 DROP EYE-BOTH ×2 (08:47→20:46)
[2024-07-13] MEDS: OLANZapine 2.5 MG TABLET PO ×2 (08:49→20:41)
[2024-07-13] MEDS: Divalproex Sodium Sprinkles 125 MG CAP.DR.SPR 250 MG PO ×2 (08:49→20:41)
[2024-07-13] MEDS: Cholecalciferol (Vitamin D3) 25 MCG TABLET 50 MCG PO (08:49)
[2024-07-13] MEDS: oxyBUTYnin chloride ER 5 MG TAB.ER.24 15 MG PO (08:52)
--- NOTE | 2024-07-13 08:57 | HO.PSYCHPN ---
Subjective Subjective Date of Service: 07/13/24 Reason For Visit: Combative Behaviors Subjective Notes: Conditional Voluntary Interim History: Pt slept through the night. RN reports pt reporting increase urinary frequency/urgency, UA ordered did not show UTI. Pt asks this content writer when she can go home, today? Review of Systems Review of Systems No fever, chills or weakness No chest pain, palpitation No shortness of breath or coughing No abdominal pain, nausea or vomiting Yes Unobtainable due to mental status Mental Status Exam Mental Status Exam Narrative: Appearance: casually groomed in bed Behavior: calm Psychomotor: no agitation or retardation noted Speech: garbled, difficult to understand TP: concrete TC: no questions Mood:ok Affect:calm, congruent SI: none expressed HI: none expressed VH/AH: no overt signs Delusions: none noted Insight/judgment: impaired x 2 Memory/cog: alert, not oriented to place, month or year nor situation. severe impairment in memory and cognition. Diagnostics Vital Signs (24Hr): Vital Signs - 24 hr 07/12/24 20:00 Temperature 98.3 F Pulse Rate 80 Respiratory Rate 16 Blood Pressure 154/66 H Pulse Oximetry 95 Oxygen Delivery Method Room Air BMI result Body Mass Index 20.1 Labs 06/19/24 17:17 06/22/24 11:33 Medications Medications Current Medications Acetaminophen (Acetaminophen 325 Mg Tablet) 650 mg PO Q6H PRN PRN Reason: Headache/Pain, Scale 1-10 Last Admin: 07/11/24 23:34 Dose: 650 mg Al Hydroxide/Mg Hydroxide (Magnesium Hydrox/Alum Hydrox 30 Ml Oral.Susp) 30 ml PO Q6H PRN PRN Reason: Heartburn/Nausea Atorvastatin Calcium (Atorvastatin Calcium 20 Mg Tablet) 20 mg PO BEDTIME [facility] Last Admin: 07/12/24 20:11 Dose: 20 mg Divalproex Sodium (Divalproex Sodium Sprinkles 125 Mg ) 250 mg PO BID [facility] Last Admin: 07/12/24 20:11 Dose: 250 mg Donepezil HCl (Donepezil Hcl 5 Mg Tablet) 5 mg PO BEDTIME [facility] Last Admin: 07/12/24 20:11 Dose: 5 mg Fluticasone Propionate (Fluticasone Propionate Nasal 16 Gm [place]) 2 spray NOSTRIL-B DAILY [facility] Last Admin: 07/12/24 11:42 Dose: 2 spray Levothyroxine Sodium (Levothyroxine Sodium 75 Mcg Tablet) 75 mcg PO DAILY@0600 [facility] Last Admin: 07/13/24 05:52 Dose: 75 mcg Loperamide HCl (Loperamide Hcl 2 Mg Capsule) 2 mg PO Q4H PRN PRN Reason: loose stools Lorazepam (Lorazepam 0.5 Mg Tablet) 0.5 mg PO Q8H PRN PRN Reason: severe anxiety Last Admin: 07/11/24 20:46 Dose: 0.5 mg Magnesium Hydroxide (Milk Of Magnesia 30 Ml Oral.Susp) 30 ml PO DAILY PRN PRN Reason: Constipation Last Admin: 07/08/24 18:33 Dose: 30 ml Olanzapine (Olanzapine 2.5 Mg Tablet) 2.5 mg PO BID [facility] Last Admin: 07/12/24 20:11 Dose: 2.5 mg Omeprazole (Omeprazole 20 Mg Capsule.Dr) 20 mg PO DAILY@0630 [facility] Last Admin: 07/13/24 05:54 Dose: 20 mg Oxybutynin Chloride (Oxybutynin Chloride Er 5 Mg Tab.Er.24) 15 mg PO DAILY [facility] Last Admin: 07/12/24 08:55 Dose: 15 mg Timolol Maleate (Timolol Maleate 0.5 % Oph Peg 5 Ml Drbtl) 1 drop EYE-BOTH BID [facility] Last Admin: 07/12/24 20:11 Dose: 1 drop Trazodone HCl (Trazodone Hcl 50 Mg Tablet) 50 mg PO BEDTIME MRX1 PRN PRN Reason: Insomnia Last Admin: 07/11/24 23:34 Dose: 50 mg Vitamin D (Cholecalciferol (Vitamin D3) 25 Mcg Tablet) 50 mcg PO DAILY [facility] Last Admin: 07/12/24 08:55 Dose: 50 mcg Allergies Allergies Allergy/AdvReac Type Severity Reaction Status Date / Time sulfamethoxazole Allergy Unknown Verified 03/03/24 14:32 [From Sulfamethoxazole-Trimethoprim] trimethoprim Allergy Unknown Verified 03/03/24 14:32 [From Sulfamethoxazole-Trimethoprim] Assessment & Plan Assessment & Plan (1) 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 Mascorro is an 79 year-old woman with hx of dementia, advanced stages. She was initially admitted to [facility] for management of combative and impulsive behaviors secondary to dementia. She was stabilized on combination of depakote, olanzapine. She had episode of brief change in mental status. No VS abnormalities. She was transferred to medical floor for work up of TIA vs stroke, which was negative. Pt transferred back to continue medication management and stabilization and placement. PLAN 06/30 continue tx. 07/01 continue tx. awaiting placement, financial paperwork not completed to submit application for [employer]. 07/02 continue tx. 07/03 continue tx. 07/06 continue tx. awaiting placement. 07/07 continue tx. 07/08 continue tx. 07/09: no change. continue current mgmt. 07/10: poor sleep overnight of 2 hours. constipation, small BM overnight. continue current mgmt for now. 07/11: Patient remained stable; no change in presentation; continue treatment plan 07/12; no change in presentation; continue treatment but 07/13 continue tx. UA ordered for increase urinary frequency Reason for continued inpatient stay Substantial Risk for: inability to function Time Spent With Patient Time: Total time managing care of this patient today ____ minutes.
[2024-07-13 09:03] VITALS: BP 119/57; PULSE 72; RESP 15; TEMP 36.9; O2SAT 92
[2024-07-13 11:13] LABS: Appearance Urine Clear; Color Urine Yellow; Glucose Urine UA Negative (Negative); Leukocyte Esterase Urine Moderate (2+) (Negative); Nitrite Urine Negative (Negative); PH 6.5 (5.0-9.0); Specific Gravity - Urine 1.015 (1.005-1.025); UMIC TRIGGER UACC YES; Urine Blood Negative (Negative); Urine Ketones Negative (Negative); Urine Protein Negative (Neg-Trace)
[2024-07-13 11:26] LABS: Bacteria Urine None Seen (None Seen); Hyaline Casts Urine 0-2 /LPF (0-2); RBC Urine 0-2 /HPF (0-2); Squamous Epithelial Cell Urine 0-2 /HPF (0-2); UACC Culture Trigger YES; WBC Urine 0-5 /HPF (0-5)
[2024-07-13 20:00] VITALS: BP 138/69; PULSE 75; RESP 16; TEMP 36.3; O2SAT 95
[2024-07-13] MEDS: Acetaminophen 325 MG TABLET 650 MG PO (20:40)
[2024-07-13] MEDS: LORazepam 0.5 MG TABLET PO (20:41)
[2024-07-13] MEDS: traZODone HCL 50 MG TABLET PO (20:41)
[2024-07-13] MEDS: Donepezil HCl 5 MG TABLET PO (20:41)
[2024-07-13] MEDS: Atorvastatin Calcium 20 MG TABLET PO (20:41)
[2024-07-14] MEDS: Levothyroxine Sodium 75 MCG TABLET PO (05:45)
[2024-07-14] MEDS: Omeprazole 20 MG CAPSULE.DR PO (06:15)
[2024-07-14 09:13] VITALS: BP 159/72; PULSE 69; RESP 16; TEMP 37.1; O2SAT 97
[2024-07-14] MEDS: timoloL maleate 0.5 % Oph Sol 5 ML DRBTL 1 DROP EYE-BOTH ×2 (09:15→20:35)
[2024-07-14] MEDS: Fluticasone Propionate Nasal 16 GM SPRAY 2 SPRAY NOSTRIL-B (09:15)
[2024-07-14] MEDS: OLANZapine 2.5 MG TABLET PO ×2 (09:17→20:34)
[2024-07-14] MEDS: Divalproex Sodium Sprinkles 125 MG CAP.DR.SPR 250 MG PO ×2 (09:17→20:33)
[2024-07-14] MEDS: Cholecalciferol (Vitamin D3) 25 MCG TABLET 50 MCG PO (09:17)
[2024-07-14] MEDS: oxyBUTYnin chloride ER 5 MG TAB.ER.24 15 MG PO (09:17)
--- NOTE | 2024-07-14 14:11 | HO.PM.IMCN ---
History of Present Illness Data of Consult Service Date: 07/14/24 Primary Care Provider: Unknown Physician HPI Reason for consult: Medical evaluation and follow up Patient is an 79-year-old female with a past medical history significant for HTN, HLD, GERD, dementia, hypothyroid, subdural hematoma, glaucoma, hearing loss, epilepsy and slurred speech, she is on [facility] for ongoing treatment of Alzheimers disease with combative and impulsive behaviors. On 06/02/2024 she was transferred to medical evaluation of altered mental status. She underwent stroke work up with CT head and CTA of head and neck, demonstrating no acute stroke. It was felt that due to her behavioral issues, she would not tolerate MRI, EEG at that time. She has been stable since transfer back to [facility]. Her blood pressures have been stable. She was treated for UTI in May. Today she is denying any SP pain, chills, SOB, burning with urination. Staff is reporting urinary frequency from her baseline. Patient has a history of subdural hematoma and has slurred speech / deficit at baseline. [place] wears hearing aides, cooperative today, ambulates to with staff. Review of Systems Review of Systems: Denies any shortness of breath, chest pain, dizziness, lightheadedness, abdominal pain or discomfort, nausea vomiting or diarrhea [facility] Medical History (Updated 07/14/24 @ 14:25 by Nazia Bergman DNP) Dementia H/O: hypothyroidism Glaucoma Social History Household Members: None Housing: Assisted Living Facility Do you presently have visiting nurse or other home services: Yes (visiting nurse every 6 months for assmts) Alcohol intake: former Comment: 1:1 Patient Tobacco Use Status: Never used Tobacco Second Hand Smoke Exposure: No Use of substances other than those prescribed or required for medical reasons: No Currently Displaying Signs/Symptoms of Drug Intoxication Withdrawal: No Any prior treatment program specific to substance use: No Have you been hit, kicked, punched, or otherwise hurt by someone within the past year? If so, by whom?: No Do you feel safe in your current relationship?: No Current Relationship Is there a partner from a previous relationship who is making you feel unsafe now?: No Are you made to feel afraid or neglected: No Advance Directives: Yes Advance Directives on File: Yes Advance Directives Date on File: 03/03/24 Do you have thoughts of harming others: None Do you have a plan to hurt others: No Plan Recently lost weight without trying: No Eating poorly because of decreased appetite: No Nutrition Risks: No Nutritional Risk Patient : No : No Poor oral hygiene: No service: No Sexual orientation: Straight/Heterosexual Meds Allergies Allergy/AdvReac Type Severity Reaction Status Date / Time sulfamethoxazole Allergy Unknown Verified 03/03/24 14:32 [From Sulfamethoxazole-Trimethoprim] trimethoprim Allergy Unknown Verified 03/03/24 14:32 [From Sulfamethoxazole-Trimethoprim] Active Medications: Current Medications Acetaminophen (Acetaminophen 325 Mg Tablet) 650 mg PO Q6H PRN PRN Reason: Headache/Pain, Scale 1-10 Last Admin: 07/13/24 20:40 Dose: 650 mg Al Hydroxide/Mg Hydroxide (Magnesium Hydrox/Alum Hydrox 30 Ml Oral.Susp) 30 ml PO Q6H PRN PRN Reason: Heartburn/Nausea Atorvastatin Calcium (Atorvastatin Calcium 20 Mg Tablet) 20 mg PO BEDTIME [facility] Last Admin: 07/13/24 20:41 Dose: 20 mg Divalproex Sodium (Divalproex Sodium Sprinkles 125 Mg ) 250 mg PO BID [facility] Last Admin: 07/14/24 09:17 Dose: 250 mg Donepezil HCl (Donepezil Hcl 5 Mg Tablet) 5 mg PO BEDTIME [facility] Last Admin: 07/13/24 20:41 Dose: 5 mg Fluticasone Propionate (Fluticasone Propionate Nasal 16 Gm [place]) 2 spray NOSTRIL-B DAILY [facility] Last Admin: 07/14/24 09:15 Dose: 2 spray Levothyroxine Sodium (Levothyroxine Sodium 75 Mcg Tablet) 75 mcg PO DAILY@0600 [facility] Last Admin: 07/14/24 05:45 Dose: 75 mcg Loperamide HCl (Loperamide Hcl 2 Mg Capsule) 2 mg PO Q4H PRN PRN Reason: loose stools Lorazepam (Lorazepam 0.5 Mg Tablet) 0.5 mg PO Q8H PRN PRN Reason: severe anxiety Last Admin: 07/13/24 20:41 Dose: 0.5 mg Magnesium Hydroxide (Milk Of Magnesia 30 Ml Oral.Susp) 30 ml PO DAILY PRN PRN Reason: Constipation Last Admin: 07/08/24 18:33 Dose: 30 ml Olanzapine (Olanzapine 2.5 Mg Tablet) 2.5 mg PO BID [facility] Last Admin: 07/14/24 09:17 Dose: 2.5 mg Omeprazole (Omeprazole 20 Mg Capsule.Dr) 20 mg PO DAILY@0630 [facility] Last Admin: 07/14/24 06:15 Dose: 20 mg Oxybutynin Chloride (Oxybutynin Chloride Er 5 Mg Tab.Er.24) 15 mg PO DAILY [facility] Last Admin: 07/14/24 09:17 Dose: 15 mg Timolol Maleate (Timolol Maleate 0.5 % Oph Peg 5 Ml Drbtl) 1 drop EYE-BOTH BID [facility] Last Admin: 07/14/24 09:15 Dose: 1 drop Trazodone HCl (Trazodone Hcl 50 Mg Tablet) 50 mg PO BEDTIME MRX1 PRN PRN Reason: Insomnia Last Admin: 07/13/24 20:41 Dose: 50 mg Vitamin D (Cholecalciferol (Vitamin D3) 25 Mcg Tablet) 50 mcg PO DAILY [facility] Last Admin: 07/14/24 09:17 Dose: 50 mcg Home Medications ?Medication ?Instructions ?Recorded ?Confirmed ?Last Taken ?Type cholecalciferol (vitamin D3) 50 50 mcg PO DAILY 03/04/24 06/02/24 Unknown History mcg (2,000 unit) tablet (Vitamin D3) fluticasone propionate 50 2 spray intranasal DAILY 03/04/24 06/02/24 Unknown History mcg/actuation nasal spray,suspension timolol maleate 0.5 % eye drops 1 drp ophthalmic (eye) DAILY 03/04/24 03/04/24 Unknown History aspirin 81 mg tablet,delayed 81 mg PO DAILY 06/02/24 Unknown History release divalproex 250 mg tablet,extended 250 mg PO BID 06/02/24 Unknown History release 24 hr Physical Exam Vital Signs and Narrative: Vital Signs: Last Vital Signs Temp 98.7 F 07/14/24 09:13 Pulse 69 07/14/24 09:13 Resp 16 07/14/24 09:13 BP 159/72 H 07/14/24 09:13 Pulse Ox 97 07/14/24 09:13 O2 Del Method Room Air 07/14/24 09:13 BMI result Body Mass Index 20.1 CONST: Alert and oriented, in NAD. Well nourished HEENT: Normocephalic, atraumatic, MMM, Eyes clear, Neck supple RESP: Lungs clear, RRR even and regular HEART:,RRR, S1, S2. No murmur, no edema GI:Abdomen Soft NT, ND. + BS times four :No CVA tenderness, no SP tenderness SKIN: Warm dry and intact, no visible lesions or rashes NEURO:Sensation intact. Speech clear PSYCH: Normal affect, cooperative Results Labs 06/19/24 17:17 06/22/24 11:33 Assessment and Plan (1) Overactive bladder: Status: Acute Plan Urinary frequency/Overactive bladder Continues on Ditropan. Will check UA due to increased frequency She has been afebrile Seizure disorder Continues on Depakote Dementia with behavioral and impulsive behaviors Plan per Psychiatry Glaucoma Continue with timolol daily Hypothyroidism Continue levothyroxine daily Recent TSH 1.37 Vitamin-D deficiency Continue vitamin-D supplementation
--- NOTE | 2024-07-14 14:22 | HO.PSYCHPN ---
Subjective Subjective Date of Service: 07/14/24 Reason For Visit: Combative Behaviors Subjective Notes: Conditional Voluntary Healthcare Proxy: Yes Interim History: Pt slept through the night. She denies any physical concerns. No behavioral concerns. VS stable, taking medications as prescribed. Medication Compliance: Yes Side effects from medications: No Review of Systems Review of Systems Denies any shortness of breath, chest pain, dizziness, lightheadedness, abdominal pain or discomfort, nausea vomiting or diarrhea Yes Unobtainable due to mental status Mental Status Exam Mental Status Exam Narrative: Appearance: casually groomed in bed Behavior: calm Psychomotor: no agitation or retardation noted Speech: garbled, difficult to understand TP: concrete TC: no questions Mood:ok Affect:calm, congruent SI: none expressed HI: none expressed VH/AH: no overt signs Delusions: none noted Insight/judgment: impaired x 2 Memory/cog: alert, not oriented to place, month or year nor situation. severe impairment in memory and cognition. Diagnostics Vital Signs (24Hr): Vital Signs - 24 hr 07/13/24 20:00 07/14/24 09:13 Temperature 97.4 F 98.7 F Pulse Rate 75 69 Respiratory Rate 16 16 Blood Pressure 138/69 159/72 H Pulse Oximetry 95 97 Oxygen Delivery Method Room Air Room Air BMI result Body Mass Index 20.1 Labs 06/19/24 17:17 06/22/24 11:33 Labs: Laboratory Results - last 48 hr 07/13/24 10:50 Urine Color Yellow Urine Appearance Clear Urine pH 6.5 Ur Specific [place] 1.015 Urine Protein Negative Urine Glucose (UA) Negative Urine Ketones Negative Urine Blood Negative Urine Nitrite Negative Ur Leukocyte Esterase Moderate (2+) H Urine RBC 0-2 Urine WBC 0-5 Ur Squamous Epith Cells 0-2 Urine Bacteria None Seen Hyaline Casts 0-2 Medications Medications Current Medications Acetaminophen (Acetaminophen 325 Mg Tablet) 650 mg PO Q6H PRN PRN Reason: Headache/Pain, Scale 1-10 Last Admin: 07/13/24 20:40 Dose: 650 mg Al Hydroxide/Mg Hydroxide (Magnesium Hydrox/Alum Hydrox 30 Ml Oral.Susp) 30 ml PO Q6H PRN PRN Reason: Heartburn/Nausea Atorvastatin Calcium (Atorvastatin Calcium 20 Mg Tablet) 20 mg PO BEDTIME [facility] Last Admin: 07/13/24 20:41 Dose: 20 mg Divalproex Sodium (Divalproex Sodium Sprinkles 125 Mg ) 250 mg PO BID [facility] Last Admin: 07/14/24 09:17 Dose: 250 mg Donepezil HCl (Donepezil Hcl 5 Mg Tablet) 5 mg PO BEDTIME [facility] Last Admin: 07/13/24 20:41 Dose: 5 mg Fluticasone Propionate (Fluticasone Propionate Nasal 16 Gm [place]) 2 spray NOSTRIL-B DAILY [facility] Last Admin: 07/14/24 09:15 Dose: 2 spray Levothyroxine Sodium (Levothyroxine Sodium 75 Mcg Tablet) 75 mcg PO DAILY@0600 [facility] Last Admin: 07/14/24 05:45 Dose: 75 mcg Loperamide HCl (Loperamide Hcl 2 Mg Capsule) 2 mg PO Q4H PRN PRN Reason: loose stools Lorazepam (Lorazepam 0.5 Mg Tablet) 0.5 mg PO Q8H PRN PRN Reason: severe anxiety Last Admin: 07/13/24 20:41 Dose: 0.5 mg Magnesium Hydroxide (Milk Of Magnesia 30 Ml Oral.Susp) 30 ml PO DAILY PRN PRN Reason: Constipation Last Admin: 07/08/24 18:33 Dose: 30 ml Olanzapine (Olanzapine 2.5 Mg Tablet) 2.5 mg PO BID [facility] Last Admin: 07/14/24 09:17 Dose: 2.5 mg Omeprazole (Omeprazole 20 Mg Capsule.Dr) 20 mg PO DAILY@0630 [facility] Last Admin: 07/14/24 06:15 Dose: 20 mg Oxybutynin Chloride (Oxybutynin Chloride Er 5 Mg Tab.Er.24) 15 mg PO DAILY [facility] Last Admin: 07/14/24 09:17 Dose: 15 mg Timolol Maleate (Timolol Maleate 0.5 % Oph Peg 5 Ml Drbtl) 1 drop EYE-BOTH BID [facility] Last Admin: 07/14/24 09:15 Dose: 1 drop Trazodone HCl (Trazodone Hcl 50 Mg Tablet) 50 mg PO BEDTIME MRX1 PRN PRN Reason: Insomnia Last Admin: 07/13/24 20:41 Dose: 50 mg Vitamin D (Cholecalciferol (Vitamin D3) 25 Mcg Tablet) 50 mcg PO DAILY [facility] Last Admin: 07/14/24 09:17 Dose: 50 mcg Allergies Allergies Allergy/AdvReac Type Severity Reaction Status Date / Time sulfamethoxazole Allergy Unknown Verified 03/03/24 14:32 [From Sulfamethoxazole-Trimethoprim] trimethoprim Allergy Unknown Verified 03/03/24 14:32 [From Sulfamethoxazole-Trimethoprim] Assessment & Plan Assessment & Plan (1) 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 Mascorro is an 79 year-old woman with hx of dementia, advanced stages. She was initially admitted to S[facility] for management of combative and impulsive behaviors secondary to dementia. She was stabilized on combination of depakote, olanzapine. She had episode of brief change in mental status. No VS abnormalities. She was transferred to medical floor for work up of TIA vs stroke, which was negative. Pt transferred back to continue medication management and stabilization and placement. PLAN 06/30 continue tx. 07/01 continue tx. awaiting placement, financial paperwork not completed to submit application for [employer]. 07/02 continue tx. 07/03 continue tx. 07/06 continue tx. awaiting placement. 07/07 continue tx. 07/08 continue tx. 07/09: no change. continue current mgmt. 07/10: poor sleep overnight of 2 hours. constipation, small BM overnight. continue current mgmt for now. 07/11: Patient remained stable; no change in presentation; continue treatment plan 07/12; no change in presentation; continue treatment but 07/13 continue tx. UA ordered for increase urinary frequency 07/14 continue tx. Reason for continued inpatient stay Substantial Risk for: inability to function Time Spent With Patient Time: Total time managing care of this patient today ____ minutes.
--- NOTE | 2024-07-14 15:34 | PC.NURSE ---
This investment underwriter texted ordering provider re: STAT order for new UA. She stated that it doesn't need to be collected STAT, it is entered that way in order to get it processed faster. This investment underwriter will attempt to collect order without straight cath.
[2024-07-14 16:16] LABS: Appearance Urine Clear; Color Urine Yellow; Glucose Urine UA Negative (Negative); Leukocyte Esterase Urine Small (1+) (Negative); Nitrite Urine Negative (Negative); PH 7.5 (5.0-9.0); UMIC TRIGGER UA YES; Urine Blood Negative (Negative); Urine Ketones Negative (Negative); Urine Protein Negative (Neg-Trace)
[2024-07-14 16:19] LABS: Bacteria Urine None Seen (None Seen); Hyaline Casts Urine 0-2 /LPF (0-2); RBC Urine 0-2 /HPF (0-2); Squamous Epithelial Cell Urine 0-2 /HPF (0-2)
[2024-07-14 20:00] VITALS: BP 161/74; PULSE 69; RESP 18; TEMP 36.8; O2SAT 95
[2024-07-14] MEDS: Atorvastatin Calcium 20 MG TABLET PO (20:33)
[2024-07-14] MEDS: Donepezil HCl 5 MG TABLET PO (20:33)
[2024-07-14] MEDS: traZODone HCL 50 MG TABLET PO (20:34)
[2024-07-15] MEDS: Levothyroxine Sodium 75 MCG TABLET PO (06:09)
[2024-07-15] MEDS: Omeprazole 20 MG CAPSULE.DR PO (06:09)
[2024-07-15] MEDS: timoloL maleate 0.5 % Oph Sol 5 ML DRBTL 1 DROP EYE-BOTH ×2 (08:47→20:38)
[2024-07-15] MEDS: Fluticasone Propionate Nasal 16 GM SPRAY 2 SPRAY NOSTRIL-B (08:47)
[2024-07-15] MEDS: OLANZapine 2.5 MG TABLET PO ×2 (08:47→20:35)
[2024-07-15] MEDS: oxyBUTYnin chloride ER 5 MG TAB.ER.24 15 MG PO (08:47)
[2024-07-15] MEDS: Cholecalciferol (Vitamin D3) 25 MCG TABLET 50 MCG PO (08:48)
[2024-07-15] MEDS: Divalproex Sodium Sprinkles 125 MG CAP.DR.SPR 250 MG PO ×2 (08:48→20:35)
[2024-07-15 08:58] VITALS: BP 179/86; PULSE 68; RESP 16; TEMP 36.4; O2SAT 95
--- NOTE | 2024-07-15 11:09 | P.PNPSI_ITS ---
Subjective Subjective Date of Service: 07/16/24 Reason For Visit: Combative Behaviors Interim History: Pt slept through the night. She denies any physical concerns. No behavioral concerns. VS stable, taking medications as prescribed. Review of Systems Review of Systems Denies any shortness of breath, chest pain, dizziness, lightheadedness, abdominal pain or discomfort, nausea vomiting or diarrhea Yes Unobtainable due to mental status Mental Status Exam Mental Status Exam Narrative: Appearance: casually groomed in bed Behavior: calm Psychomotor: no agitation or retardation noted Speech: garbled, difficult to understand TP: concrete TC: no questions Mood:ok Affect:calm, congruent SI: none expressed HI: none expressed VH/AH: no overt signs Delusions: none noted Insight/judgment: impaired x 2 Memory/cog: alert, not oriented to place, month or year nor situation. severe impairment in memory and cognition. Diagnostics Vital Signs (24Hr): Vital Signs - 24 hr 07/14/24 20:00 07/15/24 08:58 Temperature 98.2 F 97.5 F Pulse Rate 69 68 Respiratory Rate 18 16 Blood Pressure 161/74 H 179/86 H Pulse Oximetry 95 95 Oxygen Delivery Method Room Air Room Air BMI result Body Mass Index 20.1 Labs 06/19/24 17:17 06/22/24 11:33 Labs: Laboratory Results - last 48 hr 07/13/24 07/14/24 10:50 16:08 Urine Color Yellow Yellow Urine Appearance Clear Clear Urine pH 6.5 7.5 Ur Specific [place] 1.015 1.010 Urine Protein Negative Negative Urine Glucose (UA) Negative Negative Urine Ketones Negative Negative Urine Blood Negative Negative Urine Nitrite Negative Negative Ur Leukocyte Esterase Moderate (2+) H Small (1+) H Urine RBC 0-2 0-2 Urine WBC 0-5 6-10 H Ur Squamous Epith Cells 0-2 0-2 Urine Bacteria None Seen None Seen Hyaline Casts 0-2 0-2 Medications Medications Current Medications Acetaminophen (Acetaminophen 325 Mg Tablet) 650 mg PO Q6H PRN PRN Reason: Headache/Pain, Scale 1-10 Last Admin: 07/13/24 20:40 Dose: 650 mg Al Hydroxide/Mg Hydroxide (Magnesium Hydrox/Alum Hydrox 30 Ml Oral.Susp) 30 ml PO Q6H PRN PRN Reason: Heartburn/Nausea Atorvastatin Calcium (Atorvastatin Calcium 20 Mg Tablet) 20 mg PO BEDTIME [facility] Last Admin: 07/14/24 20:33 Dose: 20 mg Divalproex Sodium (Divalproex Sodium Sprinkles 125 Mg Cap.) 250 mg PO BID [facility] Last Admin: 07/15/24 08:48 Dose: 250 mg Donepezil HCl (Donepezil Hcl 5 Mg Tablet) 5 mg PO BEDTIME [facility] Last Admin: 07/14/24 20:33 Dose: 5 mg Fluticasone Propionate (Fluticasone Propionate Nasal 16 Gm [place]) 2 spray NOSTRIL-B DAILY [facility] Last Admin: 07/15/24 08:47 Dose: 2 spray Levothyroxine Sodium (Levothyroxine Sodium 75 Mcg Tablet) 75 mcg PO DAILY@0600 [facility] Last Admin: 07/15/24 06:09 Dose: 75 mcg Loperamide HCl (Loperamide Hcl 2 Mg Capsule) 2 mg PO Q4H PRN PRN Reason: loose stools Lorazepam (Lorazepam 0.5 Mg Tablet) 0.5 mg PO Q8H PRN PRN Reason: severe anxiety Last Admin: 07/13/24 20:41 Dose: 0.5 mg Magnesium Hydroxide (Milk Of Magnesia 30 Ml Oral.Susp) 30 ml PO DAILY PRN PRN Reason: Constipation Last Admin: 07/08/24 18:33 Dose: 30 ml Olanzapine (Olanzapine 2.5 Mg Tablet) 2.5 mg PO BID [facility] Last Admin: 07/15/24 08:47 Dose: 2.5 mg Omeprazole (Omeprazole 20 Mg Capsule.Dr) 20 mg PO DAILY@0630 [facility] Last Admin: 07/15/24 06:09 Dose: 20 mg Oxybutynin Chloride (Oxybutynin Chloride Er 5 Mg Tab.Er.24) 15 mg PO DAILY [facility] Last Admin: 07/15/24 08:47 Dose: 15 mg Timolol Maleate (Timolol Maleate 0.5 % Oph Peg 5 Ml Drbtl) 1 drop EYE-BOTH BID [facility] Last Admin: 07/15/24 08:47 Dose: 1 drop Trazodone HCl (Trazodone Hcl 50 Mg Tablet) 50 mg PO BEDTIME MRX1 PRN PRN Reason: Insomnia Last Admin: 07/14/24 20:34 Dose: 50 mg Vitamin D (Cholecalciferol (Vitamin D3) 25 Mcg Tablet) 50 mcg PO DAILY [facility] Last Admin: 07/15/24 08:48 Dose: 50 mcg Allergies Allergies Allergy/AdvReac Type Severity Reaction Status Date / Time sulfamethoxazole Allergy Unknown Verified 03/03/24 14:32 [From Sulfamethoxazole-Trimethoprim] trimethoprim Allergy Unknown Verified 03/03/24 14:32 [From Sulfamethoxazole-Trimethoprim] Assessment & Plan Assessment & Plan (1) 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 Mascorro is an 79 year-old woman with hx of dementia, advanced stages. She was initially admitted to S[facility] for management of combative and impulsive behaviors secondary to dementia. She was stabilized on combination of depakote, olanzapine. She had episode of brief change in mental status. No VS abnormalities. She was transferred to medical floor for work up of TIA vs stroke, which was negative. Pt transferred back to continue medication management and stabilization and placement. PLAN 06/30 continue tx. 07/01 continue tx. awaiting placement, financial paperwork not completed to submit application for [email or web address]. 07/02 continue tx. 07/03 continue tx. 07/06 continue tx. awaiting placement. 07/07 continue tx. 07/08 continue tx. 07/09: no change. continue current mgmt. 07/10: poor sleep overnight of 2 hours. constipation, small BM overnight. continue current mgmt for now. 07/11: Patient remained stable; no change in presentation; continue treatment plan 07/12; no change in presentation; continue treatment but 07/13 continue tx. UA ordered for increase urinary frequency 07/14 continue tx. 07/15 continue tx. Reason for continued inpatient stay Substantial Risk for: inability to function Time Spent With Patient Time: Total time managing care of this patient today ____ minutes.
[2024-07-15 20:00] VITALS: BP 130/80; PULSE 75; RESP 18; TEMP 523.3; TEMP 974; O2SAT 93
[2024-07-15] MEDS: Atorvastatin Calcium 20 MG TABLET PO (20:35)
[2024-07-15] MEDS: Acetaminophen 325 MG TABLET 650 MG PO (20:35)
[2024-07-15] MEDS: Donepezil HCl 5 MG TABLET PO (20:35)
[2024-07-15] MEDS: traZODone HCL 50 MG TABLET PO (20:35)
[2024-07-16] MEDS: Levothyroxine Sodium 75 MCG TABLET PO (06:15)
[2024-07-16] MEDS: Omeprazole 20 MG CAPSULE.DR PO (06:15)
[2024-07-16 07:47] VITALS: BP 131/69; PULSE 60; RESP 16; TEMP 36.8; O2SAT 95
[2024-07-16] MEDS: timoloL maleate 0.5 % Oph Sol 5 ML DRBTL 1 DROP EYE-BOTH ×2 (07:49→20:48)
[2024-07-16] MEDS: Fluticasone Propionate Nasal 16 GM SPRAY 2 SPRAY NOSTRIL-B (07:49)
[2024-07-16] MEDS: OLANZapine 2.5 MG TABLET PO ×2 (07:50→20:46)
[2024-07-16] MEDS: Cholecalciferol (Vitamin D3) 25 MCG TABLET 50 MCG PO (07:50)
[2024-07-16] MEDS: oxyBUTYnin chloride ER 5 MG TAB.ER.24 15 MG PO (07:51)
[2024-07-16] MEDS: Divalproex Sodium Sprinkles 125 MG CAP.DR.SPR 250 MG PO ×2 (07:51→20:46)
[2024-07-16 12:53] VITALS: BMI 21.2
[2024-07-16 16:23] VITALS: BP 200/85; PULSE 83; RESP 16; TEMP 36.8; O2SAT 94
[2024-07-16 16:25] VITALS: BP 180/84; PULSE 77; RESP 15; TEMP 36.9; O2SAT 94
--- NOTE | 2024-07-16 16:32 | PM.EVENT ---
Event Note Date of Service: 07/16/24 Event Note: PROTECTION SPECIALIST called for unresponsiveness while on toilet, lasted several sec and then was walked back to her bed. On exam patient has no focal deficit, some dysarthria but is not wearing dentures. Alert and oriented x3. was able to ambulate back to toiler with assistance, Suspect vagal episode, will check CT head and CBC and BMP. continue to monitor on geripsych Time Spent With Patient Time: Total time managing care of this patient today ____ minutes.
--- NOTE | 2024-07-16 16:39 | PC.NURSE ---
Around 1620 this typewriters functional tester responded to a request to assess patient. When this typewriters functional tester arrived in patients bathroom, she was seen slumped backwards on the toilet, unable to hold her trunk up, however, she was conscious. She was assisted off the toilet by two staff and had a difficult time following simple directions. She was sat on her bed and BP was as follows: R upper arm, 200/85, pulse 83, O2 94%. L upper arm: 180/84, pulse 77, O2 sat 94%. Pt was unable to give a clear answer as to whether or not she had a CARLOS, eye pain, or chest pain. Pupils were non-reactive to light, smile was BL, a small amount of drool noted, and speech was slurred. Rapid response with stroke protocol called. Esvin BP was then gotten, and systolic was 150, typewriters functional tester unable to hear diastolic due to peripheral noise. At this point the team had arrived. LH=[id number]. During time with rapid response team, pt's speech became clear again. Pt was also able to walk at baseline for her and went to the bathroom and had a BM without issue. Labs and CT of head ordered. Pt currently in CT now.
--- NOTE | 2024-07-16 16:47 | HO.PSYCHPN ---
Subjective Subjective Date of Service: 07/16/24 Reason For Visit: Combative Behaviors Subjective Notes: Conditional Voluntary Interim History: Pt slept through the night. She denies any physical concerns. No behavioral concerns. VS stable, taking medications as prescribed. Review of Systems Review of Systems Denies any shortness of breath, chest pain, dizziness, lightheadedness, abdominal pain or discomfort, nausea vomiting or diarrhea Yes Unobtainable due to mental status Mental Status Exam Mental Status Exam Narrative: Appearance: casually groomed in bed Behavior: calm Psychomotor: no agitation or retardation noted Speech: garbled, difficult to understand TP: concrete TC: no questions Mood:ok Affect:calm, congruent SI: none expressed HI: none expressed VH/AH: no overt signs Delusions: none noted Insight/judgment: impaired x 2 Memory/cog: alert, not oriented to place, month or year nor situation. severe impairment in memory and cognition. Diagnostics Vital Signs (24Hr): Vital Signs - 24 hr 07/15/24 20:00 07/16/24 07:47 Temperature 974 F H 98.2 F Pulse Rate 75 60 Respiratory Rate 18 16 Blood Pressure 130/80 131/69 Pulse Oximetry 93 95 Oxygen Delivery Method Room Air Room Air BMI result Body Mass Index 21.2 Labs 07/16/24 17:07 07/16/24 17:07 Medications Medications Current Medications Acetaminophen (Acetaminophen 325 Mg Tablet) 650 mg PO Q6H PRN PRN Reason: Headache/Pain, Scale 1-10 Last Admin: 07/15/24 20:35 Dose: 650 mg Al Hydroxide/Mg Hydroxide (Magnesium Hydrox/Alum Hydrox 30 Ml Oral.Susp) 30 ml PO Q6H PRN PRN Reason: Heartburn/Nausea Atorvastatin Calcium (Atorvastatin Calcium 20 Mg Tablet) 20 mg PO BEDTIME [facility] Last Admin: 07/15/24 20:35 Dose: 20 mg Divalproex Sodium (Divalproex Sodium Sprinkles 125 Mg ) 250 mg PO BID [facility] Last Admin: 07/16/24 07:51 Dose: 250 mg Donepezil HCl (Donepezil Hcl 5 Mg Tablet) 5 mg PO BEDTIME [facility] Last Admin: 07/15/24 20:35 Dose: 5 mg Fluticasone Propionate (Fluticasone Propionate Nasal 16 Gm [place]) 2 spray NOSTRIL-B DAILY [facility] Last Admin: 07/16/24 07:49 Dose: 2 spray Levothyroxine Sodium (Levothyroxine Sodium 75 Mcg Tablet) 75 mcg PO DAILY@0600 [facility] Last Admin: 07/16/24 06:15 Dose: 75 mcg Loperamide HCl (Loperamide Hcl 2 Mg Capsule) 2 mg PO Q4H PRN PRN Reason: loose stools Lorazepam (Lorazepam 0.5 Mg Tablet) 0.5 mg PO Q8H PRN PRN Reason: severe anxiety Last Admin: 07/13/24 20:41 Dose: 0.5 mg Magnesium Hydroxide (Milk Of Magnesia 30 Ml Oral.Susp) 30 ml PO DAILY PRN PRN Reason: Constipation Last Admin: 07/08/24 18:33 Dose: 30 ml Olanzapine (Olanzapine 2.5 Mg Tablet) 2.5 mg PO BID [facility] Last Admin: 07/16/24 07:50 Dose: 2.5 mg Omeprazole (Omeprazole 20 Mg Capsule.Dr) 20 mg PO DAILY@0630 [facility] Last Admin: 07/16/24 06:15 Dose: 20 mg Oxybutynin Chloride (Oxybutynin Chloride Er 5 Mg Tab.Er.24) 15 mg PO DAILY [facility] Last Admin: 07/16/24 07:51 Dose: 15 mg Timolol Maleate (Timolol Maleate 0.5 % Oph Peg 5 Ml Drbtl) 1 drop EYE-BOTH BID [facility] Last Admin: 07/16/24 07:49 Dose: 1 drop Trazodone HCl (Trazodone Hcl 50 Mg Tablet) 50 mg PO BEDTIME MRX1 PRN PRN Reason: Insomnia Last Admin: 07/15/24 20:35 Dose: 50 mg Vitamin D (Cholecalciferol (Vitamin D3) 25 Mcg Tablet) 50 mcg PO DAILY [facility] Last Admin: 07/16/24 07:50 Dose: 50 mcg Allergies Allergies Allergy/AdvReac Type Severity Reaction Status Date / Time sulfamethoxazole Allergy Unknown Verified 03/03/24 14:32 [From Sulfamethoxazole-Trimethoprim] trimethoprim Allergy Unknown Verified 03/03/24 14:32 [From Sulfamethoxazole-Trimethoprim] Assessment & Plan Assessment & Plan (1) 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 Mascorro is an 79 year-old woman with hx of dementia, advanced stages. She was initially admitted to S1 for management of combative and impulsive behaviors secondary to dementia. She was stabilized on combination of depakote, olanzapine. She had episode of brief change in mental status. No VS abnormalities. She was transferred to medical floor for work up of TIA vs stroke, which was negative. Pt transferred back to continue medication management and stabilization and placement. PLAN 06/30 continue tx. 07/01 continue tx. awaiting placement, financial paperwork not completed to submit application for [employer]. 07/02 continue tx. 07/03 continue tx. 07/06 continue tx. awaiting placement. 07/07 continue tx. 07/08 continue tx. 07/09: no change. continue current mgmt. 07/10: poor sleep overnight of 2 hours. constipation, small BM overnight. continue current mgmt for now. 07/11: Patient remained stable; no change in presentation; continue treatment plan 07/12; no change in presentation; continue treatment but 07/13 continue tx. UA ordered for increase urinary frequency 07/14 continue tx. 07/15 continue tx. 07/16 continue tx. Reason for continued inpatient stay Substantial Risk for: inability to function Time Spent With Patient Time: Total time managing care of this patient today ____ minutes.
[2024-07-16 17:19] LABS: Hemoglobin 11.2 g/dl (12.0-16.0); Mean Corpuscular HGB Conc 32.9 g/dl (31.0-35.0); Mean Corpuscular Hemoglobin 29.6 pg (27.0-33.0); Mean Corpuscular Volume 89.7 fL (80.0-98.0); Mean Platelet Volume 10.9 fL (9.4-12.3); Platelet Count 163 X10*3/uL (160-400); Red Blood Count 3.79 X10*6/uL (4.20-5.50); Red Cell Distribution Width 13.7 % (11.0-16.0); White Blood Count 8.8 X10*3/uL (4.8-10.8)
[2024-07-16 17:36] LABS: Anion Gap 13 (12-20); Blood Urea Nitrogen 26 mg/dL (9-16); Calcium 8.8 mg/dL (8.4-10.2); Carbon Dioxide 27 mmol/L (22-29); Chloride 100 mmol/L (96-108); Creatinine Clr Calc Pharmacy 36.6; Estimated Glomerular Filt Rate 48; Glucose Random 120 mg/dL (60-115); Potassium 5.1 mmol/L (3.3-5.1); Sodium 135 mmol/L (135-145)
[2024-07-16 20:00] VITALS: BP 175/79; PULSE 81; RESP 18; TEMP 36.6; O2SAT 97
[2024-07-16] MEDS: Donepezil HCl 5 MG TABLET PO (20:46)
[2024-07-16] MEDS: Atorvastatin Calcium 20 MG TABLET PO (21:15)
[2024-07-17] MEDS: Levothyroxine Sodium 75 MCG TABLET PO (05:43)
[2024-07-17] MEDS: Omeprazole 20 MG CAPSULE.DR PO (05:44)
[2024-07-17 09:29] VITALS: BP 119/69; PULSE 70; RESP 15; TEMP 36.9; O2SAT 95
[2024-07-17] MEDS: timoloL maleate 0.5 % Oph Sol 5 ML DRBTL 1 DROP EYE-BOTH ×2 (09:31→21:30)
[2024-07-17] MEDS: Fluticasone Propionate Nasal 16 GM SPRAY 2 SPRAY NOSTRIL-B (09:31)
[2024-07-17] MEDS: Divalproex Sodium Sprinkles 125 MG CAP.DR.SPR 250 MG PO ×3 (09:33→21:14)
[2024-07-17] MEDS: oxyBUTYnin chloride ER 5 MG TAB.ER.24 15 MG PO (09:33)
[2024-07-17] MEDS: OLANZapine 2.5 MG TABLET PO ×2 (09:34→21:14)
[2024-07-17] MEDS: Cholecalciferol (Vitamin D3) 25 MCG TABLET 50 MCG PO (09:34)
--- NOTE | 2024-07-17 10:33 | HO.PM.IMPN ---
Subjective Subjective Date of Service: 07/17/24 Interval History: 79-year-old female with a past medical history HTN, HLD, GERD, dementia, hypothyroid, subdural hematoma, glaucoma, hearing loss, epilepsy and slurred speech, she is on [facility] psych for ongoing treatment of Alzheimers disease with combative and impulsive behaviors. Last evening rapid response was called for unresponsive episode while on toilet which lasted several sec she subsequently recovered and was walked to bed. Her head CT was negative, mild anemia at baseline, BUN creatinine slightly elevated. Sodium WNL. An ammonia level done today was within normal limits. Called to the floor again today where patient was reported to have a similar incident lasting approximately a minute and a half. She did not lose consciousness however she was awake and staring. Not having a bowel movement at the time. She recovered and appears to be at baseline on exam. Ambulating back to her bed, her vitals were stable. She has had similar episodes in the past. One on 06/02 where pt was admitted to the hospital for a stroke workup that proved negative, and another on 06/16 2024, one 07/16/24 and another today. Pt was seen and evaluated on 06/02/2024 by Neurology who suggested EEG and MRI. Pt was unable to tolerate MRI at that time and ECG was performed yesterday on 06/18 which showed mildly abnormal electroencephalogram suggestive of right hemispheric structural dysfunction, but no evidence of seizure disorder. She carries a chart diagnosis of epilepsy. Recent UA done on 06/2024 was negative Review of Systems Unable to review symptoms due to advanced dementia. Physical Exam Vital Signs: Vital Signs: Last Vital Signs Temp 98.5 F 07/17/24 09:29 Pulse 70 07/17/24 09:29 Resp 15 07/17/24 09:29 BP 119/69 07/17/24 09:29 Pulse Ox 95 07/17/24 09:29 O2 Del Method Room Air 07/17/24 09:29 BMI result Body Mass Index 21.2 CONST: Alert and confused, [place], in NAD. Well nourished HEENT: Normocephalic, atraumatic, MMM RESP: Lungs clear, RRR even and regular HEART:,RRR, S1, S2. No murmur, no edema GI:Abdomen Soft NT, ND. + BS times four :Deferred SKIN: Warm dry and intact, no visible lesions or rashes NEURO:No focal deficit, Sensation intact. Speech slurred PSYCH: Normal affect Objective Data Active Medications Acetaminophen (Acetaminophen 325 Mg Tablet) 650 mg PO Q6H PRN PRN Reason: Headache/Pain, Scale 1-10 Last Admin: 07/15/24 20:35 Dose: 650 mg Documented By: DAFNE Al Hydroxide/Mg Hydroxide (Magnesium Hydrox/Alum Hydrox 30 Ml Oral.Susp) 30 ml PO Q6H PRN PRN Reason: Heartburn/Nausea Atorvastatin Calcium (Atorvastatin Calcium 20 Mg Tablet) 20 mg PO BEDTIME [facility] Last Admin: 07/16/24 21:15 Dose: 20 mg Documented By: MEGHNA Divalproex Sodium (Divalproex Sodium Sprinkles 125 Mg ) 250 mg PO BID [facility] Last Admin: 07/17/24 09:33 Dose: 250 mg Documented By: MARCUS Donepezil HCl (Donepezil Hcl 5 Mg Tablet) 5 mg PO BEDTIME [facility] Last Admin: 07/16/24 20:46 Dose: 5 mg Documented By: MEGHNA Fluticasone Propionate (Fluticasone Propionate Nasal 16 Gm [place]) 2 spray NOSTRIL-B DAILY [facility] Last Admin: 07/17/24 09:31 Dose: 2 spray Documented By: MARCUS Levothyroxine Sodium (Levothyroxine Sodium 75 Mcg Tablet) 75 mcg PO DAILY@0600 [facility] Last Admin: 07/17/24 05:43 Dose: 75 mcg Documented By: MEGHNA Loperamide HCl (Loperamide Hcl 2 Mg Capsule) 2 mg PO Q4H PRN PRN Reason: loose stools Lorazepam (Lorazepam 0.5 Mg Tablet) 0.5 mg PO Q8H PRN PRN Reason: severe anxiety Last Admin: 07/13/24 20:41 Dose: 0.5 mg Documented By: MICHAEL Magnesium Hydroxide (Milk Of Magnesia 30 Ml Oral.Susp) 30 ml PO DAILY PRN PRN Reason: Constipation Last Admin: 07/08/24 18:33 Dose: 30 ml Documented By: GINGER Olanzapine (Olanzapine 2.5 Mg Tablet) 2.5 mg PO BID [facility] Last Admin: 07/17/24 09:34 Dose: 2.5 mg Documented By: MARCUS Omeprazole (Omeprazole 20 Mg Capsule.Dr) 20 mg PO DAILY@0630 [facility] Last Admin: 07/17/24 05:44 Dose: 20 mg Documented By: MEGHNA Oxybutynin Chloride (Oxybutynin Chloride Er 5 Mg Tab.Er.24) 15 mg PO DAILY [facility] Last Admin: 07/17/24 09:33 Dose: 15 mg Documented By: MARCUS Timolol Maleate (Timolol Maleate 0.5 % Oph Peg 5 Ml Drbtl) 1 drop EYE-BOTH BID [facility] Last Admin: 07/17/24 09:31 Dose: 1 drop Documented By: MARCUS Trazodone HCl (Trazodone Hcl 50 Mg Tablet) 50 mg PO BEDTIME MRX1 PRN PRN Reason: Insomnia Last Admin: 07/15/24 20:35 Dose: 50 mg Documented By: DAFNE Vitamin D (Cholecalciferol (Vitamin D3) 25 Mcg Tablet) 50 mcg PO DAILY [facility] Last Admin: 07/17/24 09:34 Dose: 50 mcg Documented By: MARCUS Labs 07/16/24 17:07 07/16/24 17:07 Labs: Laboratory Results - last 24 hr 07/16/24 17:07 MCV 89.7 MCH 29.6 MCHC 32.9 RDW 13.7 Plt Count 163 MPV 10.9 Absolute Nucleated RBC 0.000 Nucleated RBC % (auto) 0.0 Anion Gap 13 Estim Creat Clear Calc 36.6 Estimated GFR 48 Random Glucose [address] scan - head: Radiologist's impression: Findings: No acute intracranial hemorrhage, extra-axial fluid collection, hydrocephalus or midline shift. Stable age-appropriate generalized parenchymal atrophy and mild white matter changes. No evidence for acute large territorial infarct. No sinus or mastoid fluid. Visualized orbits: No acute abnormalities. No skull fracture. Redemonstration of hyperostosis frontalis interna. IMPRESSION: No acute intracranial process. Assessment and Plan (1) Altered mental status: Status: Acute Plan Episode of altered mentation and decrease responsiveness/History of epilepsy Patient with 2 episodes in a 24 hour period. HOTEL ASSISTANT GENERAL MANAGER called yesterday, head CT normal and labs essentially within normal limits, no hyponatremia She is on Depakote 250 tid, we will cautiously increase to 250 t.i.d. and recheck a Depakote level and BMP in 1 week to see if Depakote was truly the culprit for hyponatremia We will consult Neurology for alternative medication management Recent UA was negative Please contact hospitalist team for any further questions Quality Stroke Does the patient have a stroke diagnosis?: No VTE Prior VTE?: No VTE Risk Level:: Medical - low VTE Device Contraindication: Treatment Not Indicated VTE Drug Contraindication: Treatment Not Indicated
--- NOTE | 2024-07-17 11:09 | HO.PSYCHPN ---
Subjective Subjective Date of Service: 07/17/24 Reason For Visit: Combative Behaviors Subjective Notes: Conditional Voluntary Interim History: Pt slept through the night. She had episode last evening while in the bathroom, slurring words, no asymmetry. Seen by hospitalist. Head head CT- negative for acute fundings. She had another episode today while taking a shower, staring, not responding. did apparently say while this happening, why is this happening to me unclear is true seizure activity. Pt very forgetful, does tell this speech writer that she was shaking earlier, but given advanced dementia is unclear how accurate this report is. Seen by hospitalist, depakote increased to 250mg po TID. monitor ammonia, hyponatremia. Diagnostics Vital Signs (24Hr): Vital Signs - 24 hr 07/16/24 16:23 07/16/24 16:25 07/16/24 20:00 Temperature 98.2 F 98.5 F 97.9 F Pulse Rate 83 77 81 Respiratory Rate 16 15 18 Blood Pressure 200/85 H 180/84 H 175/79 H Pulse Oximetry 94 94 97 Oxygen Delivery Method Room Air Room Air Room Air 07/17/24 09:29 Temperature 98.5 F Pulse Rate 70 Respiratory Rate 15 Blood Pressure 119/69 Pulse Oximetry 95 Oxygen Delivery Method Room Air BMI result Body Mass Index 21.2 Labs 07/16/24 17:07 07/16/24 17:07 Labs: Laboratory Results - last 48 hr 07/16/24 17:07 WBC 8.8 RBC 3.79 L Hgb 11.2 L Hct 34.0 L MCV 89.7 MCH 29.6 MCHC 32.9 RDW 13.7 Plt Count 163 MPV 10.9 Absolute Nucleated RBC 0.000 Nucleated RBC % (auto) 0.0 Sodium 135 Potassium 5.1 Chloride 100 Carbon Dioxide 27 Anion Gap 13 BUN 26 H Creatinine 1.10 Estim Creat Clear Calc 36.6 Estimated GFR 48 Random Glucose 120 H Calcium 8.8 Medications Medications Current Medications Acetaminophen (Acetaminophen 325 Mg Tablet) 650 mg PO Q6H PRN PRN Reason: Headache/Pain, Scale 1-10 Last Admin: 07/15/24 20:35 Dose: 650 mg Al Hydroxide/Mg Hydroxide (Magnesium Hydrox/Alum Hydrox 30 Ml Oral.Susp) 30 ml PO Q6H PRN PRN Reason: Heartburn/Nausea Atorvastatin Calcium (Atorvastatin Calcium 20 Mg Tablet) 20 mg PO BEDTIME [facility] Last Admin: 07/16/24 21:15 Dose: 20 mg Divalproex Sodium (Divalproex Sodium Sprinkles 125 Mg Cap.) 250 mg PO BID [facility] Last Admin: 07/17/24 09:33 Dose: 250 mg Donepezil HCl (Donepezil Hcl 5 Mg Tablet) 5 mg PO BEDTIME [facility] Last Admin: 07/16/24 20:46 Dose: 5 mg Fluticasone Propionate (Fluticasone Propionate Nasal 16 Gm [place]) 2 spray NOSTRIL-B DAILY [facility] Last Admin: 07/17/24 09:31 Dose: 2 spray Levothyroxine Sodium (Levothyroxine Sodium 75 Mcg Tablet) 75 mcg PO DAILY@0600 [facility] Last Admin: 07/17/24 05:43 Dose: 75 mcg Loperamide HCl (Loperamide Hcl 2 Mg Capsule) 2 mg PO Q4H PRN PRN Reason: loose stools Lorazepam (Lorazepam 0.5 Mg Tablet) 0.5 mg PO Q8H PRN PRN Reason: severe anxiety Last Admin: 07/13/24 20:41 Dose: 0.5 mg Magnesium Hydroxide (Milk Of Magnesia 30 Ml Oral.Susp) 30 ml PO DAILY PRN PRN Reason: Constipation Last Admin: 07/08/24 18:33 Dose: 30 ml Olanzapine (Olanzapine 2.5 Mg Tablet) 2.5 mg PO BID [facility] Last Admin: 07/17/24 09:34 Dose: 2.5 mg Omeprazole (Omeprazole 20 Mg Capsule.Dr) 20 mg PO DAILY@0630 [facility] Last Admin: 07/17/24 05:44 Dose: 20 mg Oxybutynin Chloride (Oxybutynin Chloride Er 5 Mg Tab.Er.24) 15 mg PO DAILY [facility] Last Admin: 07/17/24 09:33 Dose: 15 mg Timolol Maleate (Timolol Maleate 0.5 % Oph Peg 5 Ml Drbtl) 1 drop EYE-BOTH BID [facility] Last Admin: 07/17/24 09:31 Dose: 1 drop Trazodone HCl (Trazodone Hcl 50 Mg Tablet) 50 mg PO BEDTIME MRX1 PRN PRN Reason: Insomnia Last Admin: 07/15/24 20:35 Dose: 50 mg Vitamin D (Cholecalciferol (Vitamin D3) 25 Mcg Tablet) 50 mcg PO DAILY [facility] Last Admin: 07/17/24 09:34 Dose: 50 mcg Allergies Allergies Allergy/AdvReac Type Severity Reaction Status Date / Time sulfamethoxazole Allergy Unknown Verified 03/03/24 14:32 [From Sulfamethoxazole-Trimethoprim] trimethoprim Allergy Unknown Verified 03/03/24 14:32 [From Sulfamethoxazole-Trimethoprim] Assessment & Plan Assessment & Plan (1) 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 Mascorro is an 79 year-old woman with hx of dementia, advanced stages. She was initially admitted to [facility] for management of combative and impulsive behaviors secondary to dementia. She was stabilized on combination of depakote, olanzapine. She had episode of brief change in mental status. No VS abnormalities. She was transferred to medical floor for work up of TIA vs stroke, which was negative. Pt transferred back to continue medication management and stabilization and placement. PLAN 06/30 continue tx. 07/01 continue tx. awaiting placement, financial paperwork not completed to submit application for [email or web address]. 07/02 continue tx. 07/03 continue tx. 07/06 continue tx. awaiting placement. 07/07 continue tx. 07/08 continue tx. 07/09: no change. continue current mgmt. 07/10: poor sleep overnight of 2 hours. constipation, small BM overnight. continue current mgmt for now. 07/11: Patient remained stable; no change in presentation; continue treatment plan 07/12; no change in presentation; continue treatment but 07/13 continue tx. UA ordered for increase urinary frequency 07/14 continue tx. 07/15 continue tx. 07/16 continue tx. 07/17 seen by hospitalist, depakote was increased 250mg po TID, ammonia checked today wnl. recommend to recheck ammonia with hihger dose and monitor hyponatremia. Reason for continued inpatient stay Substantial Risk for: inability to function Time Spent With Patient Time: Total time managing care of this patient today ____ minutes.
[2024-07-17 11:59] LABS: Ammonia 35 umol/L (13-55)
[2024-07-17 12:39] VITALS: BP 135/87; PULSE 71; TEMP 36.3
--- NOTE | 2024-07-17 12:42 | PC.NURSE ---
2 [facility] staff assisting pt in shower, staff called for RN assistance, member of technical staff and CLOTH MERCERIZER OPERATOR went to shower room. [facility] said pt lost consciousness for approximately 1.5 minutes, pt was conscious and talking when RNs responded to call, pallor noted to face, sitting in shower chair grasping arms of both MHCs. unable to obtain vital signs stat d/t pt moving arm and trying to walk back to room, unable to redirect. Pt walked back to room with assistance of staff. Obtained VS while in room. BP 135/87, HR 71. CLOTH MERCERIZER OPERATOR and primary nurse updated. Provider notified by primary RN.
[2024-07-17 16:43] LABS: Glucose, Whole Blood 129 mg/dL (60-115)
[2024-07-17 20:00] VITALS: BP 134/78; PULSE 70; RESP 16; TEMP 36.2; O2SAT 95
[2024-07-17] MEDS: Atorvastatin Calcium 20 MG TABLET PO (21:14)
[2024-07-17] MEDS: Acetaminophen 325 MG TABLET 650 MG PO (21:14)
[2024-07-17] MEDS: Donepezil HCl 5 MG TABLET PO (21:14)
[2024-07-18] MEDS: Omeprazole 20 MG CAPSULE.DR PO (06:41)
[2024-07-18] MEDS: Levothyroxine Sodium 75 MCG TABLET PO (06:41)
[2024-07-18 08:37] VITALS: BP 197/72; PULSE 75; RESP 16; TEMP 36.4; O2SAT 97
--- NOTE | 2024-07-18 10:02 | P.PNPSI_ITS ---
Subjective Subjective Date of Service: 07/18/24 Reason For Visit: Combative Behaviors Interim History: Pt had no episodes of altered MS during the day but later in the afternoon had another episode of garbled speech and rigidity noted by 1:1 staff. Neurology consult pending. No behavioral concerns. Patient cooperative with care. Pleasant. Review of Systems Review of Systems Unable to review symptoms due to advanced dementia. Yes Unobtainable due to mental status Mental Status Exam Mental Status Exam Narrative: Appearance: casually groomed in bed Behavior: calm Psychomotor: no agitation or retardation noted Speech: garbled, difficult to understand TP: concrete TC: no questions Mood:ok Affect:calm, congruent SI: none expressed HI: none expressed VH/AH: no overt signs Delusions: none noted Insight/judgment: impaired x 2 Memory/cog: alert, not oriented to place, month or year nor situation. severe impairment in memory and cognition. Diagnostics Vital Signs (24Hr): Vital Signs - 24 hr 07/17/24 12:39 07/17/24 20:00 07/18/24 08:37 Temperature 97.3 F 97.2 F 97.5 F Pulse Rate 71 70 75 Respiratory Rate 16 16 Blood Pressure 135/87 134/78 197/72 H Pulse Oximetry 95 97 Oxygen Delivery Method Room Air Room Air BMI result Body Mass Index 21.2 Labs 07/16/24 17:07 07/16/24 17:07 Labs: Laboratory Results - last 48 hr 07/16/24 07/16/24 07/17/24 16:25 17:07 11:49 WBC 8.8 RBC 3.79 L Hgb 11.2 L Hct 34.0 L MCV 89.7 MCH 29.6 MCHC 32.9 RDW 13.7 Plt Count 163 MPV 10.9 Absolute Nucleated RBC 0.000 Nucleated RBC % (auto) 0.0 Sodium 135 Potassium 5.1 Chloride 100 Carbon Dioxide 27 Anion Gap 13 BUN 26 H Creatinine 1.10 Estim Creat Clear Calc 36.6 Estimated GFR 48 POC Glucose 129 H Random Glucose 120 H Calcium 8.8 Ammonia 35 Medications Medications Current Medications Acetaminophen (Acetaminophen 325 Mg Tablet) 650 mg PO Q6H PRN PRN Reason: Headache/Pain, Scale 1-10 Last Admin: 07/17/24 21:14 Dose: 650 mg Al Hydroxide/Mg Hydroxide (Magnesium Hydrox/Alum Hydrox 30 Ml Oral.Susp) 30 ml PO Q6H PRN PRN Reason: Heartburn/Nausea Atorvastatin Calcium (Atorvastatin Calcium 20 Mg Tablet) 20 mg PO BEDTIME [facility] Last Admin: 07/17/24 21:14 Dose: 20 mg Divalproex Sodium (Divalproex Sodium Sprinkles 125 Mg Cap.Dr.Spr) 250 mg PO TID [facility] Last Admin: 07/17/24 21:14 Dose: 250 mg Donepezil HCl (Donepezil Hcl 5 Mg Tablet) 5 mg PO BEDTIME [facility] Last Admin: 07/17/24 21:14 Dose: 5 mg Fluticasone Propionate (Fluticasone Propionate Nasal 16 Gm [place]) 2 spray NOSTRIL-B DAILY [facility] Last Admin: 07/17/24 09:31 Dose: 2 spray Levothyroxine Sodium (Levothyroxine Sodium 75 Mcg Tablet) 75 mcg PO DAILY@0600 [facility] Last Admin: 07/18/24 06:41 Dose: 75 mcg Loperamide HCl (Loperamide Hcl 2 Mg Capsule) 2 mg PO Q4H PRN PRN Reason: loose stools Lorazepam (Lorazepam 0.5 Mg Tablet) 0.5 mg PO Q8H PRN PRN Reason: severe anxiety Last Admin: 07/13/24 20:41 Dose: 0.5 mg Magnesium Hydroxide (Milk Of Magnesia 30 Ml Oral.Susp) 30 ml PO DAILY PRN PRN Reason: Constipation Last Admin: 07/08/24 18:33 Dose: 30 ml Olanzapine (Olanzapine 2.5 Mg Tablet) 2.5 mg PO BID [facility] Last Admin: 07/17/24 21:14 Dose: 2.5 mg Omeprazole (Omeprazole 20 Mg Capsule.Dr) 20 mg PO DAILY@0630 [facility] Last Admin: 07/18/24 06:41 Dose: 20 mg Oxybutynin Chloride (Oxybutynin Chloride Er 5 Mg Tab.Er.24) 15 mg PO DAILY [facility] Last Admin: 07/17/24 09:33 Dose: 15 mg Timolol Maleate (Timolol Maleate 0.5 % Oph Peg 5 Ml Drbtl) 1 drop EYE-BOTH BID [facility] Last Admin: 07/17/24 21:30 Dose: 1 drop Trazodone HCl (Trazodone Hcl 50 Mg Tablet) 50 mg PO BEDTIME MRX1 PRN PRN Reason: Insomnia Last Admin: 07/15/24 20:35 Dose: 50 mg Vitamin D (Cholecalciferol (Vitamin D3) 25 Mcg Tablet) 50 mcg PO DAILY [facility] Last Admin: 07/17/24 09:34 Dose: 50 mcg Allergies Allergies Allergy/AdvReac Type Severity Reaction Status Date / Time sulfamethoxazole Allergy Unknown Verified 03/03/24 14:32 [From Sulfamethoxazole-Trimethoprim] trimethoprim Allergy Unknown Verified 03/03/24 14:32 [From Sulfamethoxazole-Trimethoprim] Assessment & Plan Assessment & Plan (1) 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 Mascorro is an 79 year-old woman with hx of dementia, advanced stages. She was initially admitted to [facility] for management of combative and impulsive behaviors secondary to dementia. She was stabilized on combination of depakote, olanzapine. She had episode of brief change in mental status. No VS abnormalities. She was transferred to medical floor for work up of TIA vs stroke, which was negative. Pt transferred back to continue medication management and stabilization and placement. PLAN 06/30 continue tx. 07/01 continue tx. awaiting placement, financial paperwork not completed to submit application for [employer]. 07/02 continue tx. 07/03 continue tx. 07/06 continue tx. awaiting placement. 07/07 continue tx. 07/08 continue tx. 07/09: no change. continue current mgmt. 07/10: poor sleep overnight of 2 hours. constipation, small BM overnight. continue current mgmt for now. 07/11: Patient remained stable; no change in presentation; continue treatment plan 07/12; no change in presentation; continue treatment but 07/13 continue tx. UA ordered for increase urinary frequency 07/14 continue tx. 07/15 continue tx. 07/16 continue tx. 07/17 seen by hospitalist, depakote was increased 250mg po TID, ammonia checked today wnl. recommend to recheck ammonia with hihger dose and monitor hyponatremia. 07/18: continue current management and treatment plan.Neurology consult pending. Reason for continued inpatient stay Substantial Risk for: inability to function, rapid decompensation and med/psych decompensation Time Spent With Patient Time: Total time managing care of this patient today ____ minutes.
[2024-07-18] MEDS: oxyBUTYnin chloride ER 5 MG TAB.ER.24 15 MG PO (10:12)
[2024-07-18] MEDS: Divalproex Sodium Sprinkles 125 MG CAP.DR.SPR 250 MG PO ×3 (10:13→21:02)
[2024-07-18] MEDS: OLANZapine 2.5 MG TABLET PO ×2 (10:14→21:02)
[2024-07-18] MEDS: Cholecalciferol (Vitamin D3) 25 MCG TABLET 50 MCG PO (10:14)
[2024-07-18] MEDS: timoloL maleate 0.5 % Oph Sol 5 ML DRBTL 1 DROP EYE-BOTH ×2 (10:16→21:02)
[2024-07-18] MEDS: Fluticasone Propionate Nasal 16 GM SPRAY 2 SPRAY NOSTRIL-B (10:16)
[2024-07-18 11:08] VITALS: BP 128/58; PULSE 72
[2024-07-18 20:00] VITALS: BP 136/67; PULSE 78; RESP 18; TEMP 36.3; O2SAT 97
[2024-07-18] MEDS: Donepezil HCl 5 MG TABLET PO (21:02)
[2024-07-18] MEDS: Atorvastatin Calcium 20 MG TABLET PO (21:02)
[2024-07-19] MEDS: Acetaminophen 325 MG TABLET 650 MG PO (00:43)
[2024-07-19] MEDS: Omeprazole 20 MG CAPSULE.DR PO (06:54)
[2024-07-19] MEDS: Levothyroxine Sodium 75 MCG TABLET PO (06:54)
[2024-07-19 08:35] VITALS: BP 156/72; PULSE 65; RESP 16; TEMP 36.2; O2SAT 94
[2024-07-19] MEDS: timoloL maleate 0.5 % Oph Sol 5 ML DRBTL 1 DROP EYE-BOTH ×2 (08:41→21:47)
[2024-07-19] MEDS: oxyBUTYnin chloride ER 5 MG TAB.ER.24 15 MG PO (08:41)
[2024-07-19] MEDS: OLANZapine 2.5 MG TABLET PO ×2 (08:41→21:47)
[2024-07-19] MEDS: Fluticasone Propionate Nasal 16 GM SPRAY 2 SPRAY NOSTRIL-B (08:41)
[2024-07-19] MEDS: Divalproex Sodium Sprinkles 125 MG CAP.DR.SPR 250 MG PO ×3 (08:41→21:47)
[2024-07-19] MEDS: Cholecalciferol (Vitamin D3) 25 MCG TABLET 50 MCG PO (08:42)
--- NOTE | 2024-07-19 14:44 | P.PNPSI_ITS ---
Subjective Subjective Date of Service: 07/19/24 Reason For Visit: Combative Behaviors Interim History: Pt had an episodes of altered MS yesterday. None today. She is cooperative. Visible on the unit. Continues with 1:1. Neurology consult pending. No behavioral concerns. Patient cooperative with care. Pleasant. Review of Systems Review of Systems Unable to review symptoms due to advanced dementia. Yes Unobtainable due to mental status Mental Status Exam Mental Status Exam Narrative: Appearance: casually groomed in bed Behavior: calm Psychomotor: no agitation or retardation noted Speech: garbled, difficult to understand TP: concrete TC: no questions Mood:ok Affect:calm, congruent SI: none expressed HI: none expressed VH/AH: no overt signs Delusions: none noted Insight/judgment: impaired x 2 Memory/cog: alert, not oriented to place, month or year nor situation. severe impairment in memory and cognition. Diagnostics Vital Signs (24Hr): Vital Signs - 24 hr 07/18/24 20:00 07/19/24 08:35 Temperature 97.3 F 97.1 F Pulse Rate 78 65 Respiratory Rate 18 16 Blood Pressure 136/67 156/72 H Pulse Oximetry 97 94 Oxygen Delivery Method Room Air Room Air BMI result Body Mass Index 21.2 Labs 07/16/24 17:07 07/16/24 17:07 Labs: Laboratory Results - last 48 hr 07/16/24 16:25 POC Glucose 129 H Medications Medications Current Medications Acetaminophen (Acetaminophen 325 Mg Tablet) 650 mg PO Q6H PRN PRN Reason: Headache/Pain, Scale 1-10 Last Admin: 07/19/24 00:43 Dose: 650 mg Al Hydroxide/Mg Hydroxide (Magnesium Hydrox/Alum Hydrox 30 Ml Oral.Susp) 30 ml PO Q6H PRN PRN Reason: Heartburn/Nausea Atorvastatin Calcium (Atorvastatin Calcium 20 Mg Tablet) 20 mg PO BEDTIME [facility]CLUDES [facility] Last Admin: 07/18/24 21:02 Dose: 20 mg Divalproex Sodium (Divalproex Sodium Sprinkles 125 Mg ) 250 mg PO TID COUNT INCLUDES [facility] Last Admin: 07/19/24 08:41 Dose: 250 mg Donepezil HCl (Donepezil Hcl 5 Mg Tablet) 5 mg PO BEDTIME [facility]CLUD[facility] Last Admin: 07/18/24 21:02 Dose: 5 mg Fluticasone Propionate (Fluticasone Propionate Nasal 16 Gm [place]) 2 spray NOSTRIL-B DAILY [facility] Last Admin: 07/19/24 08:41 Dose: 2 spray Levothyroxine Sodium (Levothyroxine Sodium 75 Mcg Tablet) 75 mcg PO DAILY@0600 [facility] Last Admin: 07/19/24 06:54 Dose: 75 mcg Loperamide HCl (Loperamide Hcl 2 Mg Capsule) 2 mg PO Q4H PRN PRN Reason: loose stools Lorazepam (Lorazepam 0.5 Mg Tablet) 0.5 mg PO Q8H PRN PRN Reason: severe anxiety Last Admin: 07/13/24 20:41 Dose: 0.5 mg Magnesium Hydroxide (Milk Of Magnesia 30 Ml Oral.Susp) 30 ml PO DAILY PRN PRN Reason: Constipation Last Admin: 07/08/24 18:33 Dose: 30 ml Olanzapine (Olanzapine 2.5 Mg Tablet) 2.5 mg PO BID [facility]CLUD[facility] Last Admin: 07/19/24 08:41 Dose: 2.5 mg Omeprazole (Omeprazole 20 Mg Capsule.Dr) 20 mg PO DAILY@0630 [facility] Last Admin: 07/19/24 06:54 Dose: 20 mg Oxybutynin Chloride (Oxybutynin Chloride Er 5 Mg Tab.Er.24) 15 mg PO DAILY [facility]CLUD[facility] Last Admin: 07/19/24 08:41 Dose: 15 mg Timolol Maleate (Timolol Maleate 0.5 % Oph Peg 5 Ml Drbtl) 1 drop EYE-BOTH BID COUNT INCLUDES [facility] Last Admin: 07/19/24 08:41 Dose: 1 drop Trazodone HCl (Trazodone Hcl 50 Mg Tablet) 50 mg PO BEDTIME MRX1 PRN PRN Reason: Insomnia Last Admin: 07/15/24 20:35 Dose: 50 mg Vitamin D (Cholecalciferol (Vitamin D3) 25 Mcg Tablet) 50 mcg PO DAILY [facility]CLUD[facility] Last Admin: 07/19/24 08:42 Dose: 50 mcg Allergies Allergies Allergy/AdvReac Type Severity Reaction Status Date / Time sulfamethoxazole Allergy Unknown Verified 03/03/24 14:32 [From Sulfamethoxazole-Trimethoprim] trimethoprim Allergy Unknown Verified 03/03/24 14:32 [From Sulfamethoxazole-Trimethoprim] Assessment & Plan Assessment & Plan (1) 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 Mascorro is an 79 year-old woman with hx of dementia, advanced stages. She was initially admitted to [facility] for management of combative and impulsive behaviors secondary to dementia. She was stabilized on combination of depakote, olanzapine. She had episode of brief change in mental status. No VS abnormalities. She was transferred to medical floor for work up of TIA vs stroke, which was negative. Pt transferred back to continue medication management and stabilization and placement. PLAN 06/30 continue tx. 07/01 continue tx. awaiting placement, financial paperwork not completed to submit application for [employer]. 07/02 continue tx. 07/03 continue tx. 07/06 continue tx. awaiting placement. 07/07 continue tx. 07/08 continue tx. 07/09: no change. continue current mgmt. 07/10: poor sleep overnight of 2 hours. constipation, small BM overnight. continue current mgmt for now. 07/11: Patient remained stable; no change in presentation; continue treatment plan 07/12; no change in presentation; continue treatment but 07/13 continue tx. UA ordered for increase urinary frequency 07/14 continue tx. 07/15 continue tx. 07/16 continue tx. 07/17 seen by hospitalist, depakote was increased 250mg po TID, ammonia checked today wnl. recommend to recheck ammonia with hihger dose and monitor hyponatremia. 07/18: continue current management and treatment plan.Neurology consult pending. 07/19: continue current management and treatment plan. Reason for continued inpatient stay Substantial Risk for: inability to function, rapid decompensation and med/psych decompensation Time Spent With Patient Time: Total time managing care of this patient today ____ minutes.
--- NOTE | 2024-07-19 16:48 | PC.NURSE ---
Late entry for 07/18/24 07:00-19:30 At approximately 14:35, 1:1 staff witnessed Jeannie become rigid/tense and at the same time had garbled speech and was nonsensical. VS BP 155/99 P 87 O2 97% on RA T 98.9 RR 16. Rigidity and speech appeared to resolve after approximately 2 minutes and pt stated I have to go to the bathroom , then stood up and was ambulating in the milieu without issue. Kartik Jiang notified via I-MD. Will continue to monitor.
[2024-07-19 18:10] VITALS: BP 180/86; PULSE 70; RESP 30; TEMP 36.6; O2SAT 96
[2024-07-19 18:50] VITALS: BP 173/84; PULSE 77; RESP 22; TEMP 36.5; O2SAT 96
[2024-07-19 19:04] LABS: Hemoglobin 10.7 g/dl (12.0-16.0); Mean Corpuscular HGB Conc 33.4 g/dl (31.0-35.0); Mean Corpuscular Hemoglobin 29.4 pg (27.0-33.0); Mean Corpuscular Volume 87.9 fL (80.0-98.0); Mean Platelet Volume 10.6 fL (9.4-12.3); Platelet Count 152 X10*3/uL (160-400); Red Blood Count 3.64 X10*6/uL (4.20-5.50); Red Cell Distribution Width 13.8 % (11.0-16.0); White Blood Count 7.7 X10*3/uL (4.8-10.8)
[2024-07-19 19:22] LABS: Anion Gap 14 (12-20); Blood Urea Nitrogen 23 mg/dL (9-16); Calcium 8.3 mg/dL (8.4-10.2); Carbon Dioxide 24 mmol/L (22-29); Chloride 96 mmol/L (96-108); Creatinine Clr Calc Pharmacy 42.9; Estimated Glomerular Filt Rate 57; Glucose Random 92 mg/dL (60-115); Potassium 4.5 mmol/L (3.3-5.1); Sodium 129 mmol/L (135-145)
[2024-07-19 19:23] LABS: B Type Natriuretic Peptide 136 pg/mL (<100)
--- NOTE | 2024-07-19 19:57 | PM.EVENT ---
Event Note Date of Service: 07/19/24 Event Note: Request made to have pt seen for noted wheezing earlier. Nursing indicated they were considering calling a rapid response as pt's RR was elavated to 22. POX has been 94 to 97% on RA. Pt seen and examined on the floor with nursing and 1:1 present. Pt unable to answer questions asked due to level of dementia but was able to follow some commands including taking deep breaths during assessment. Pt observed drinking a cup of daniele edward with a straw and drinks extremely fast but swallow ability strong and no coughing observed during this observation. Per nursing, pt is on pureed diet. Pt's last ST eval was 06/03/2024. Recommendation back then were thin liquids, small sips. CXR also completed prior to arrival. CXR reviwed with no obvious evidence of pulmonary edema, pleural effusion or consolidation. Will await final read from radiologist. Pt is currently afebrile, alert to self, confused baseline and ambulating using walker with 1:1 always present. Pt is afebrile and BP earlier was elevated but overall, vitals currently stable. RR 18. POX 94% on RA. Lungs CTA B, no adventutious sounds noted. S1S2 RRR, mild murmur heard along lower left border. Last echo 06/02/2024, EF 40-45 % with mild to moderate MVR. Exam today reassuring. 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 Pt is not currently on any diuretics with known HF. Pt presents euvolemic currently. Daily weights can be helpful and if pt gains 2 pounds in one day or 5 pounds in one week, can consult hospitalist/ machine compositor. Risk for aspiration: CXR reassuring. Noted R basiliar atelecatasis. Ordering Incentive spirometer. Aspiration precautions also ordered as a precaution. Pt needs to try and drink slower to prevent potential of aspiration. Speech therapy eval can be reordered if needed. Pt has strong swallowing ability with no cough when using straw to drink thin fluids. DUo nebs prn. HTN: Incidentally, BP has been elevated and pt is not currently on any anti-hypertensives. Starting low dose ACEI, Lisinopril 5 mgs daily and BP should be checked BID to see how pt responds. Low sodium diet recommended. Orders updated. Please reach out with any further medical concerns! Time Spent With Patient Time: Total time managing care of this patient today ____ minutes.
[2024-07-19] MEDS: Donepezil HCl 5 MG TABLET PO (21:47)
[2024-07-19] MEDS: Atorvastatin Calcium 20 MG TABLET PO (21:47)
[2024-07-20] MEDS: Omeprazole 20 MG CAPSULE.DR PO (05:59)
[2024-07-20] MEDS: Levothyroxine Sodium 75 MCG TABLET PO (05:59)
[2024-07-20 09:00] VITALS: BP 158/70; PULSE 70; RESP 16; TEMP 36.6; O2SAT 95
[2024-07-20] MEDS: oxyBUTYnin chloride ER 5 MG TAB.ER.24 15 MG PO (09:04)
[2024-07-20] MEDS: Divalproex Sodium Sprinkles 125 MG CAP.DR.SPR 250 MG PO ×3 (09:04→19:38)
[2024-07-20] MEDS: timoloL maleate 0.5 % Oph Sol 5 ML DRBTL 1 DROP EYE-BOTH ×3 (09:05→19:39)
[2024-07-20] MEDS: Fluticasone Propionate Nasal 16 GM SPRAY 2 SPRAY NOSTRIL-B (09:05)
[2024-07-20] MEDS: lisinopriL 5 MG TABLET PO (09:05)
[2024-07-20] MEDS: OLANZapine 2.5 MG TABLET PO ×2 (09:05→19:38)
[2024-07-20] MEDS: Cholecalciferol (Vitamin D3) 25 MCG TABLET 50 MCG PO (09:05)
--- NOTE | 2024-07-20 09:36 | P.PNPSI_ITS ---
Subjective Subjective Date of Service: 07/20/24 Reason For Visit: Combative Behaviors Interim History: No episodes of change in mentation or seizures yesterday or today. She had an episode of a few minutes of rapid shallow breathing per nursing but she was fully alert and awake and no convulsive or motor activity. VS were stable. Resolved spontaneously. She is cooperative. Visible on the unit. Continues with 1:1. Neurology consult pending. No behavioral concerns. Patient cooperative with care. Pleasant. Review of Systems Review of Systems Unable to review symptoms due to advanced dementia. Yes Unobtainable due to mental status Mental Status Exam Mental Status Exam Narrative: Appearance: casually groomed in bed Behavior: calm Psychomotor: no agitation or retardation noted Speech: garbled, difficult to understand TP: concrete TC: no questions Mood:ok Affect:calm, congruent SI: none expressed HI: none expressed VH/AH: no overt signs Delusions: none noted Insight/judgment: impaired x 2 Memory/cog: alert, not oriented to place, month or year nor situation. severe impairment in memory and cognition. Diagnostics Vital Signs (24Hr): Vital Signs - 24 hr 07/19/24 18:10 07/19/24 18:50 Temperature 97.9 F 97.7 F Pulse Rate 70 77 Respiratory Rate 30 H 22 H Blood Pressure 180/86 H 173/84 H Pulse Oximetry 96 96 Oxygen Delivery Method Room Air Room Air BMI result Body Mass Index 21.2 Labs 07/19/24 18:56 07/19/24 18:56 Labs: Laboratory Results - last 48 hr 07/19/24 18:56 WBC 7.7 RBC 3.64 L Hgb 10.7 L Hct 32.0 L MCV 87.9 MCH 29.4 MCHC 33.4 RDW 13.8 Plt Count 152 L MPV 10.6 Absolute Nucleated RBC 0.000 Nucleated RBC % (auto) 0.0 Sodium 129 L Potassium 4.5 Chloride 96 Carbon Dioxide 24 Anion Gap 14 BUN 23 H Creatinine 0.94 Estim Creat Clear Calc 42.9 Estimated GFR 57 Random Glucose 92 Calcium 8.3 L B-Natriuretic Peptide 136 H Medications Medications Current Medications Acetaminophen (Acetaminophen 325 Mg Tablet) 650 mg PO Q6H PRN PRN Reason: Headache/Pain, Scale 1-10 Last Admin: 07/19/24 00:43 Dose: 650 mg Al Hydroxide/Mg Hydroxide (Magnesium Hydrox/Alum Hydrox 30 Ml Oral.Susp) 30 ml PO Q6H PRN PRN Reason: Heartburn/Nausea Albuterol/Ipratropium (Albuterol/Iprat 2.5/0.5mg 3 Ml Ampul.Neb) 3 ml INHALE RQ4H WHILE AWAKE PRN PRN Reason: Shortness of Breath/Wheezing Atorvastatin Calcium (Atorvastatin Calcium 20 Mg Tablet) 20 mg PO BEDTIME [facility] Last Admin: 07/19/24 21:47 Dose: 20 mg Divalproex Sodium (Divalproex Sodium Sprinkles 125 Mg Cap.) 250 mg PO TID [facility] Last Admin: 07/20/24 09:04 Dose: 250 mg Donepezil HCl (Donepezil Hcl 5 Mg Tablet) 5 mg PO BEDTIME [facility] Last Admin: 07/19/24 21:47 Dose: 5 mg Fluticasone Propionate (Fluticasone Propionate Nasal 16 Gm [place]) 2 spray NOSTRIL-B DAILY [facility] Last Admin: 07/20/24 09:05 Dose: 2 spray Levothyroxine Sodium (Levothyroxine Sodium 75 Mcg Tablet) 75 mcg PO DAILY@0600 [facility] Last Admin: 07/20/24 05:59 Dose: 75 mcg Lisinopril (Lisinopril 5 Mg Tablet) 5 mg PO DAILY [facility]; Protocol Last Admin: 07/20/24 09:05 Dose: 5 mg Loperamide HCl (Loperamide Hcl 2 Mg Capsule) 2 mg PO Q4H PRN PRN Reason: loose stools Lorazepam (Lorazepam 0.5 Mg Tablet) 0.5 mg PO Q8H PRN PRN Reason: severe anxiety Last Admin: 07/13/24 20:41 Dose: 0.5 mg Magnesium Hydroxide (Milk Of Magnesia 30 Ml Oral.Susp) 30 ml PO DAILY PRN PRN Reason: Constipation Last Admin: 07/08/24 18:33 Dose: 30 ml Olanzapine (Olanzapine 2.5 Mg Tablet) 2.5 mg PO BID [facility] Last Admin: 07/20/24 09:05 Dose: 2.5 mg Omeprazole (Omeprazole 20 Mg Capsule.) 20 mg PO DAILY@0630 [facility] Last Admin: 07/20/24 05:59 Dose: 20 mg Oxybutynin Chloride (Oxybutynin Chloride Er 5 Mg Tab.Er.24) 15 mg PO DAILY [facility] Last Admin: 07/20/24 09:04 Dose: 15 mg Timolol Maleate (Timolol Maleate 0.5 % Oph Peg 5 Ml Drbtl) 1 drop EYE-BOTH BID [facility] Last Admin: 07/20/24 09:05 Dose: 1 drop Trazodone HCl (Trazodone Hcl 50 Mg Tablet) 50 mg PO BEDTIME MRX1 PRN PRN Reason: Insomnia Last Admin: 07/15/24 20:35 Dose: 50 mg Vitamin D (Cholecalciferol (Vitamin D3) 25 Mcg Tablet) 50 mcg PO DAILY [facility] Last Admin: 07/20/24 09:05 Dose: 50 mcg Allergies Allergies Allergy/AdvReac Type Severity Reaction Status Date / Time sulfamethoxazole Allergy Unknown Verified 03/03/24 14:32 [From Sulfamethoxazole-Trimethoprim] trimethoprim Allergy Unknown Verified 03/03/24 14:32 [From Sulfamethoxazole-Trimethoprim] Assessment & Plan Assessment & Plan (1) 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 Mascorro is an 79 year-old woman with hx of dementia, advanced stages. She was initially admitted to for management of combative and impulsive behaviors secondary to dementia. She was stabilized on combination of depakote, olanzapine. She had episode of brief change in mental status. No VS abnormalities. She was transferred to medical floor for work up of TIA vs stroke, which was negative. Pt transferred back to continue medication management and stabilization and placement. PLAN 06/30 continue tx. 07/01 continue tx. awaiting placement, financial paperwork not completed to submit application for [employer]. 07/02 continue tx. 07/03 continue tx. 07/06 continue tx. awaiting placement. 07/07 continue tx. 07/08 continue tx. 07/09: no change. continue current mgmt. 07/10: poor sleep overnight of 2 hours. constipation, small BM overnight. continue current mgmt for now. 07/11: Patient remained stable; no change in presentation; continue treatment plan 07/12; no change in presentation; continue treatment but 07/13 continue tx. UA ordered for increase urinary frequency 07/14 continue tx. 07/15 continue tx. 07/16 continue tx. 07/17 seen by hospitalist, depakote was increased 250mg po TID, ammonia checked today wnl. recommend to recheck ammonia with hihger dose and monitor hyponatremia. 07/18: continue current management and treatment plan.Neurology consult pending. 07/19: continue current management and treatment plan. 07/20: continue current management and treatment plan. Reason for continued inpatient stay Substantial Risk for: inability to function, rapid decompensation and med/psych decompensation Time Spent With Patient Time: Total time managing care of this patient today ____ minutes.
[2024-07-20 19:36] VITALS: BP 157/77; PULSE 74; RESP 17; TEMP 36.9; O2SAT 95
[2024-07-20] MEDS: Donepezil HCl 5 MG TABLET PO (19:37)
[2024-07-20] MEDS: Atorvastatin Calcium 20 MG TABLET PO (19:38)
[2024-07-20] MEDS: Albuterol/Iprat 2.5/0.5MG 3 ML AMPUL.NEB INHALE (20:36)
[2024-07-20 20:39] VITALS: PULSE 81; RESP 24; O2SAT 96
[2024-07-21] MEDS: Levothyroxine Sodium 75 MCG TABLET PO (05:00)
[2024-07-21] MEDS: Omeprazole 20 MG CAPSULE.DR PO (05:33)
[2024-07-21 07:43] LABS: Ammonia 45 umol/L (13-55)
--- NOTE | 2024-07-21 08:42 | HO.PSYCHPN ---
Subjective Subjective Date of Service: 07/21/24 Reason For Visit: Combative Behaviors Subjective Notes: Conditional Voluntary Healthcare Proxy: Yes Interim History: Pt slept through the night. labs on 07/19 show hyponatremia.repeat labs today. improved Na. Discussed lowering depakote to 250mg po BID. pt has been ambulating with walker. No behavioral concerns. asking to go home. Diagnostics Vital Signs (24Hr): Vital Signs - 24 hr 07/20/24 09:00 07/20/24 19:36 07/20/24 20:39 Temperature 97.9 F 98.4 F Pulse Rate 70 74 81 Respiratory Rate 16 17 24 H Blood Pressure 158/70 H 157/77 H Pulse Oximetry 95 95 Oxygen Delivery Method Room Air Room Air BMI result Body Mass Index 21.2 Labs 07/19/24 18:56 07/21/24 09:39 Labs: Laboratory Results - last 48 hr 07/19/24 07/21/24 18:56 07:23 WBC 7.7 RBC 3.64 L Hgb 10.7 L Hct 32.0 L MCV 87.9 MCH 29.4 MCHC 33.4 RDW 13.8 Plt Count 152 L MPV 10.6 Absolute Nucleated RBC 0.000 Nucleated RBC % (auto) 0.0 Sodium 129 L Potassium 4.5 Chloride 96 Carbon Dioxide 24 Anion Gap 14 BUN 23 H Creatinine 0.94 Estim Creat Clear Calc 42.9 Estimated GFR 57 Random Glucose 92 Calcium 8.3 L Ammonia 45 B-Natriuretic Peptide 136 H Medications Medications Current Medications Acetaminophen (Acetaminophen 325 Mg Tablet) 650 mg PO Q6H PRN PRN Reason: Headache/Pain, Scale 1-10 Last Admin: 07/19/24 00:43 Dose: 650 mg Al Hydroxide/Mg Hydroxide (Magnesium Hydrox/Alum Hydrox 30 Ml Oral.Susp) 30 ml PO Q6H PRN PRN Reason: Heartburn/Nausea Albuterol/Ipratropium (Albuterol/Iprat 2.5/0.5mg 3 Ml Ampul.Neb) 3 ml INHALE RQ4H WHILE AWAKE PRN PRN Reason: Shortness of Breath/Wheezing Last Admin: 07/20/24 20:36 Dose: 3 ml Atorvastatin Calcium (Atorvastatin Calcium 20 Mg Tablet) 20 mg PO BEDTIME [facility] Last Admin: 07/20/24 19:38 Dose: 20 mg Divalproex Sodium (Divalproex Sodium Sprinkles 125 Mg ) 250 mg PO TID [facility] Last Admin: 07/20/24 19:38 Dose: 250 mg Donepezil HCl (Donepezil Hcl 5 Mg Tablet) 5 mg PO BEDTIME [facility] Last Admin: 07/20/24 19:37 Dose: 5 mg Fluticasone Propionate (Fluticasone Propionate Nasal 16 Gm [place]) 2 spray NOSTRIL-B DAILY [facility] Last Admin: 07/20/24 09:05 Dose: 2 spray Levothyroxine Sodium (Levothyroxine Sodium 75 Mcg Tablet) 75 mcg PO DAILY@0600 [facility] Last Admin: 07/21/24 05:00 Dose: 75 mcg Lisinopril (Lisinopril 5 Mg Tablet) 5 mg PO DAILY [facility]; Protocol Last Admin: 07/20/24 09:05 Dose: 5 mg Loperamide HCl (Loperamide Hcl 2 Mg Capsule) 2 mg PO Q4H PRN PRN Reason: loose stools Lorazepam (Lorazepam 0.5 Mg Tablet) 0.5 mg PO Q8H PRN PRN Reason: severe anxiety Last Admin: 07/13/24 20:41 Dose: 0.5 mg Magnesium Hydroxide (Milk Of Magnesia 30 Ml Oral.Susp) 30 ml PO DAILY PRN PRN Reason: Constipation Last Admin: 07/08/24 18:33 Dose: 30 ml Olanzapine (Olanzapine 2.5 Mg Tablet) 2.5 mg PO BID [facility] Last Admin: 07/20/24 19:38 Dose: 2.5 mg Omeprazole (Omeprazole 20 Mg Capsule.Dr) 20 mg PO DAILY@0630 [facility] Last Admin: 07/21/24 05:33 Dose: 20 mg Oxybutynin Chloride (Oxybutynin Chloride Er 5 Mg Tab.Er.24) 15 mg PO DAILY [facility] Last Admin: 07/20/24 09:04 Dose: 15 mg Timolol Maleate (Timolol Maleate 0.5 % Oph Peg 5 Ml Drbtl) 1 drop EYE-BOTH BID [facility] Last Admin: 07/20/24 19:39 Dose: 1 drop Trazodone HCl (Trazodone Hcl 50 Mg Tablet) 50 mg PO BEDTIME MRX1 PRN PRN Reason: Insomnia Last Admin: 07/15/24 20:35 Dose: 50 mg Vitamin D (Cholecalciferol (Vitamin D3) 25 Mcg Tablet) 50 mcg PO DAILY [facility] Last Admin: 07/20/24 09:05 Dose: 50 mcg Allergies Allergies Allergy/AdvReac Type Severity Reaction Status Date / Time sulfamethoxazole Allergy Unknown Verified 03/03/24 14:32 [From Sulfamethoxazole-Trimethoprim] trimethoprim Allergy Unknown Verified 03/03/24 14:32 [From Sulfamethoxazole-Trimethoprim] Assessment & Plan Assessment & Plan (1) 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 Mascorro is an 79 year-old woman with hx of dementia, advanced stages. She was initially admitted to [facility] for management of combative and impulsive behaviors secondary to dementia. She was stabilized on combination of depakote, olanzapine. She had episode of brief change in mental status. No VS abnormalities. She was transferred to medical floor for work up of TIA vs stroke, which was negative. Pt transferred back to continue medication management and stabilization and placement. PLAN 06/30 continue tx. 07/01 continue tx. awaiting placement, financial paperwork not completed to submit application for [employer]. 07/02 continue tx. 07/03 continue tx. 07/06 continue tx. awaiting placement. 07/07 continue tx. 07/08 continue tx. 07/09: no change. continue current mgmt. 07/10: poor sleep overnight of 2 hours. constipation, small BM overnight. continue current mgmt for now. 07/11: Patient remained stable; no change in presentation; continue treatment plan 07/12; no change in presentation; continue treatment but 07/13 continue tx. UA ordered for increase urinary frequency 07/14 continue tx. 07/15 continue tx. 07/16 continue tx. 07/17 seen by hospitalist, depakote was increased 250mg po TID, ammonia checked today wnl. recommend to recheck ammonia with hihger dose and monitor hyponatremia. 07/18: continue current management and treatment plan.Neurology consult pending. 07/19: continue current management and treatment plan. 07/20: continue current management and treatment plan. 07/21 lowered depakote to 250mg po BID. hyponatremia on 5/25, 129, improved today 134. Reason for continued inpatient stay Substantial Risk for: inability to function Time Spent With Patient Time: Total time managing care of this patient today ____ minutes.
[2024-07-21 09:06] VITALS: BP 147/68; PULSE 77; RESP 15; TEMP 36.9; O2SAT 96
[2024-07-21] MEDS: Fluticasone Propionate Nasal 16 GM SPRAY 2 SPRAY NOSTRIL-B (09:09)
[2024-07-21] MEDS: timoloL maleate 0.5 % Oph Sol 5 ML DRBTL 1 DROP EYE-BOTH ×2 (09:09→20:55)
[2024-07-21] MEDS: oxyBUTYnin chloride ER 5 MG TAB.ER.24 15 MG PO (09:11)
[2024-07-21] MEDS: Divalproex Sodium Sprinkles 125 MG CAP.DR.SPR 250 MG PO ×2 (09:11→20:55)
[2024-07-21] MEDS: Cholecalciferol (Vitamin D3) 25 MCG TABLET 50 MCG PO (09:11)
[2024-07-21] MEDS: OLANZapine 2.5 MG TABLET PO ×2 (09:11→20:55)
[2024-07-21] MEDS: lisinopriL 5 MG TABLET PO (09:11)
[2024-07-21 10:00] LABS: Alanine Aminotransferase 24 U/L (0-31); Albumin Level 3.7 g/dL (3.5-5.0); Alkaline Phosphatase 110 U/L (39-117); Anion Gap 12 (12-20); Aspartate Amino Transferase 27 U/L (5-31); Bilirubin Total 0.6 mg/dL (0.0-1.0); Blood Urea Nitrogen 21 mg/dL (9-16); Calcium 8.7 mg/dL (8.4-10.2); Carbon Dioxide 26 mmol/L (22-29); Chloride 100 mmol/L (96-108); Creatinine Clr Calc Pharmacy 44.8; Estimated Glomerular Filt Rate > 60; Glucose Random 88 mg/dL (60-115); Potassium 4.4 mmol/L (3.3-5.1); Sodium 134 mmol/L (135-145); Total Protein 6.4 g/dL (6.5-8.0)
--- NOTE | 2024-07-21 12:42 | HO.PM.IMPN ---
Subjective Subjective Date of Service: 07/21/24 Interval History: Patient is seen in follow up for hypernatremia, syncopal episode and episode of question aspiration 07/19/2024. On 06/18/2024 review of nursing notes indicated she become rigid/tense with garbled nonsensical speech which resolved after approximately 2 minutes. Her Blood pressure was elevated at that time. A similar episode 07/16/2024 and 07/17/2024. She recently had episode of hyponatremia, improved to 134. She continue with episodes of altered mentation. She was unable to recall any these episodes due to advanced dementia. She is seen resting in bed. Per staff she had an episode of garbled speech this morning. Her speech is now at baseline. She reports that she was eating and drinking without any coughing or choking. Review of Systems She denies any pain at present. Review of systems limited due to dementia Physical Exam Vital Signs: Vital Signs: Last Vital Signs Temp 98.5 F 07/21/24 09:06 Pulse 77 07/21/24 09:06 Resp 15 07/21/24 09:06 BP 147/68 H 07/21/24 09:06 Pulse Ox 96 07/21/24 09:06 O2 Del Method Room Air 07/21/24 09:06 BMI result Body Mass Index 21.2 CONST: Alert and confused, in NAD. Well nourished HEENT: Normocephalic, atraumatic, MMM RESP: Lungs clear, RRR even and regular HEART:,RRR, S1, S2. No murmur, no edema GI:Abdomen Soft NT, ND. + BS times four :Deferred SKIN: Warm dry and intact, no visible lesions or rashes NEURO:CN II-XII Intact bilaterally, Sensation intact. Speech clear PSYCH: Normal affect Objective Data Active Medications Acetaminophen (Acetaminophen 325 Mg Tablet) 650 mg PO Q6H PRN PRN Reason: Headache/Pain, Scale 1-10 Last Admin: 07/19/24 00:43 Dose: 650 mg Documented By: VALERIY Al Hydroxide/Mg Hydroxide (Magnesium Hydrox/Alum Hydrox 30 Ml Oral.Susp) 30 ml PO Q6H PRN PRN Reason: Heartburn/Nausea Albuterol/Ipratropium (Albuterol/Iprat 2.5/0.5mg 3 Ml Ampul.Neb) 3 ml INHALE RQ4H WHILE AWAKE PRN PRN Reason: Shortness of Breath/Wheezing Last Admin: 07/20/24 20:36 Dose: 3 ml Documented By: AMANDEEP Atorvastatin Calcium (Atorvastatin Calcium 20 Mg Tablet) 20 mg PO BEDTIME [facility] Last Admin: 07/20/24 19:38 Dose: 20 mg Documented By: MARCIA Divalproex Sodium (Divalproex Sodium Sprinkles 125 Mg ) 250 mg PO BID [facility] Fluticasone Propionate (Fluticasone Propionate Nasal 16 Gm [place]) 2 spray NOSTRIL-B DAILY [facility] Last Admin: 07/21/24 09:09 Dose: 2 spray Documented By: MARCUS Levothyroxine Sodium (Levothyroxine Sodium 75 Mcg Tablet) 75 mcg PO DAILY@0600 [facility] Last Admin: 07/21/24 05:00 Dose: 75 mcg Documented By: MARCIA Lisinopril (Lisinopril 5 Mg Tablet) 5 mg PO DAILY [facility]; Protocol Last Admin: 07/21/24 09:11 Dose: 5 mg Documented By: MARCUS Loperamide HCl (Loperamide Hcl 2 Mg Capsule) 2 mg PO Q4H PRN PRN Reason: loose stools Lorazepam (Lorazepam 0.5 Mg Tablet) 0.5 mg PO Q8H PRN PRN Reason: severe anxiety Last Admin: 07/13/24 20:41 Dose: 0.5 mg Documented By: MICHAEL Magnesium Hydroxide (Milk Of Magnesia 30 Ml Oral.Susp) 30 ml PO DAILY PRN PRN Reason: Constipation Last Admin: 07/08/24 18:33 Dose: 30 ml Documented By: GINGER Olanzapine (Olanzapine 2.5 Mg Tablet) 2.5 mg PO BID [facility] Last Admin: 07/21/24 09:11 Dose: 2.5 mg Documented By: MARCUS Omeprazole (Omeprazole 20 Mg Capsule.) 20 mg PO DAILY@0630 [facility] Last Admin: 07/21/24 05:33 Dose: 20 mg Documented By: MARCIA Oxybutynin Chloride (Oxybutynin Chloride Er 5 Mg Tab.Er.24) 15 mg PO DAILY [facility] Last Admin: 07/21/24 09:11 Dose: 15 mg Documented By: MARCUS Timolol Maleate (Timolol Maleate 0.5 % Oph Peg 5 Ml Drbtl) 1 drop EYE-BOTH BID [facility] Last Admin: 07/21/24 09:09 Dose: 1 drop Documented By: MARCUS Trazodone HCl (Trazodone Hcl 50 Mg Tablet) 50 mg PO BEDTIME MRX1 PRN PRN Reason: Insomnia Last Admin: 07/15/24 20:35 Dose: 50 mg Documented By: DAFNE Vitamin D (Cholecalciferol (Vitamin D3) 25 Mcg Tablet) 50 mcg PO DAILY [facility] Last Admin: 07/21/24 09:11 Dose: 50 mcg Documented By: MARCUS Labs 07/19/24 18:56 07/21/24 09:39 Labs: Laboratory Results - last 24 hr 07/21/24 07/21/24 07:23 09:39 Anion Gap 12 Estim Creat Clear Calc 44.8 Estimated GFR > 60 Random Glucose 88 Calcium 8.7 Total Bilirubin 0.6 AST 27 ALT 24 Alkaline Phosphatase 110 Ammonia 45 Total Protein 6.4 L Albumin 3.7 Assessment and Plan (1) Altered mental status: Status: Acute Plan Multiple episodes of altered MS No documented history of seizure disorder. Has been seen by Neurology in the past. Awaiting consult due to increased episodes of decreased responsiveness We will check a carotid ultrasound to rule out stenosis or blockage Was started on Depakote for mood disorder. We will decrease to 250 b.i.d. monitor due to hyponatremia Unable to tolerate MRI EEG without seizure activity Head and neck CTA with no large vessel occlusion or hemodynamically significant stenosis identified 05/2024 Dementia with behavioral and impulsive behaviors Plan per Psychiatry Hyponatremia 1500 cc fluid restriction. Repeat sodium 134 HFrEF: 1500 mls fluid restriction. Pt is not currently on any diuretics with known HF. She appears euvolemic. Daily weights- 2 pounds in one day or 5 pounds in one week, can consult hospitalist/ renewable energy broker. Risk for aspiration: CXR with R basiliar atelecatasis Aspiration precautions Speech therapy eval as needed DUO nebs prn. CTA of head and neck in May revealed Possible esophageal wall thickening suggesting esophageal dysmotility with esophageal narrowing with esophagitis. Can pursue barium esophagram if continues with dysphagia HTN: Continue Lisinopril 5 mgs daily BP today 147/68 Low sodium diet recommended. Quality Stroke Does the patient have a stroke diagnosis?: No VTE Prior VTE?: No VTE Risk Level:: Medical - low VTE Device Contraindication: Treatment Not Indicated VTE Drug Contraindication: Treatment Not Indicated
[2024-07-21 14:11] VITALS: BMI 21.0
[2024-07-21 20:00] VITALS: BP 134/71; PULSE 85; RESP 18; TEMP 36.3; O2SAT 94
[2024-07-21] MEDS: Atorvastatin Calcium 20 MG TABLET PO (20:54)
[2024-07-21] MEDS: Acetaminophen 325 MG TABLET 650 MG PO (20:55)
[2024-07-21] MEDS: traZODone HCL 50 MG TABLET PO (20:55)
[2024-07-22] MEDS: Levothyroxine Sodium 75 MCG TABLET PO (05:44)
[2024-07-22] MEDS: Omeprazole 20 MG CAPSULE.DR PO (05:44)
[2024-07-22 06:00] VITALS: BMI 21.2
[2024-07-22 08:00] VITALS: BP 150/72; PULSE 71; RESP 18; O2SAT 96
--- NOTE | 2024-07-22 08:34 | HO.PSYCHPN ---
Subjective Subjective Date of Service: 07/22/24 Reason For Visit: Combative Behaviors Subjective Notes: Conditional Voluntary Healthcare Proxy: Yes Interim History: Pt slept through the night. She ambulated with walker. No SI/HI. No combative behaviors. asks this entry writer when she can go home. Takes medications as prescribed. Mental Status Exam Mental Status Exam Narrative: Appearance: casually groomed in bed Behavior: calm Psychomotor: no agitation or retardation noted Speech: garbled, difficult to understand TP: concrete TC: no questions Mood:ok Affect:calm, congruent SI: none expressed HI: none expressed VH/AH: no overt signs Delusions: none noted Insight/judgment: impaired x 2 Memory/cog: alert, not oriented to place, month or year nor situation. severe impairment in memory and cognition. Diagnostics Vital Signs (24Hr): Vital Signs - 24 hr 07/21/24 09:06 07/21/24 20:00 Temperature 98.5 F 97.3 F Pulse Rate 77 85 Respiratory Rate 15 18 Blood Pressure 147/68 H 134/71 Pulse Oximetry 96 94 Oxygen Delivery Method Room Air Room Air BMI result Body Mass Index 21.0 Labs 07/19/24 18:56 07/24/24 08:12 Labs: Laboratory Results - last 48 hr 07/21/24 07/21/24 07:23 09:39 Sodium 134 L Potassium 4.4 Chloride 100 Carbon Dioxide 26 Anion Gap 12 BUN 21 H Creatinine 0.90 Estim Creat Clear Calc 44.8 Estimated GFR > 60 Random Glucose 88 Calcium 8.7 Total Bilirubin 0.6 AST 27 ALT 24 Alkaline Phosphatase 110 Ammonia 45 Total Protein 6.4 L Albumin 3.7 Medications Medications Current Medications Acetaminophen (Acetaminophen 325 Mg Tablet) 650 mg PO Q6H PRN PRN Reason: Headache/Pain, Scale 1-10 Last Admin: 07/21/24 20:55 Dose: 650 mg Al Hydroxide/Mg Hydroxide (Magnesium Hydrox/Alum Hydrox 30 Ml Oral.Susp) 30 ml PO Q6H PRN PRN Reason: Heartburn/Nausea Albuterol/Ipratropium (Albuterol/Iprat 2.5/0.5mg 3 Ml Ampul.Neb) 3 ml INHALE RQ4H WHILE AWAKE PRN PRN Reason: Shortness of Breath/Wheezing Last Admin: 07/20/24 20:36 Dose: 3 ml Atorvastatin Calcium (Atorvastatin Calcium 20 Mg Tablet) 20 mg PO BEDTIME [facility] Last Admin: 07/21/24 20:54 Dose: 20 mg Divalproex Sodium (Divalproex Sodium Sprinkles 125 Mg Cap.) 250 mg PO BID [facility] Last Admin: 07/21/24 20:55 Dose: 250 mg Fluticasone Propionate (Fluticasone Propionate Nasal 16 Gm [place]) 2 spray NOSTRIL-B DAILY [facility] Last Admin: 07/21/24 09:09 Dose: 2 spray Levothyroxine Sodium (Levothyroxine Sodium 75 Mcg Tablet) 75 mcg PO DAILY@0600 [facility] Last Admin: 07/22/24 05:44 Dose: 75 mcg Lisinopril (Lisinopril 5 Mg Tablet) 5 mg PO DAILY [facility]; Protocol Last Admin: 07/21/24 09:11 Dose: 5 mg Loperamide HCl (Loperamide Hcl 2 Mg Capsule) 2 mg PO Q4H PRN PRN Reason: loose stools Lorazepam (Lorazepam 0.5 Mg Tablet) 0.5 mg PO Q8H PRN PRN Reason: severe anxiety Last Admin: 07/13/24 20:41 Dose: 0.5 mg Magnesium Hydroxide (Milk Of Magnesia 30 Ml Oral.Susp) 30 ml PO DAILY PRN PRN Reason: Constipation Last Admin: 07/08/24 18:33 Dose: 30 ml Olanzapine (Olanzapine 2.5 Mg Tablet) 2.5 mg PO BID [facility] Last Admin: 07/21/24 20:55 Dose: 2.5 mg Omeprazole (Omeprazole 20 Mg Capsule.Dr) 20 mg PO DAILY@0630 [facility] Last Admin: 07/22/24 05:44 Dose: 20 mg Oxybutynin Chloride (Oxybutynin Chloride Er 5 Mg Tab.Er.24) 15 mg PO DAILY [facility] Last Admin: 07/21/24 09:11 Dose: 15 mg Timolol Maleate (Timolol Maleate 0.5 % Oph Peg 5 Ml Drbtl) 1 drop EYE-BOTH BID [facility] Last Admin: 07/21/24 20:55 Dose: 1 drop Trazodone HCl (Trazodone Hcl 50 Mg Tablet) 50 mg PO BEDTIME MRX1 PRN PRN Reason: Insomnia Last Admin: 07/21/24 20:55 Dose: 50 mg Vitamin D (Cholecalciferol (Vitamin D3) 25 Mcg Tablet) 50 mcg PO DAILY [facility] Last Admin: 07/21/24 09:11 Dose: 50 mcg Allergies Allergies Allergy/AdvReac Type Severity Reaction Status Date / Time sulfamethoxazole Allergy Unknown Verified 03/03/24 14:32 [From Sulfamethoxazole-Trimethoprim] trimethoprim Allergy Unknown Verified 03/03/24 14:32 [From Sulfamethoxazole-Trimethoprim] Assessment & Plan Assessment & Plan (1) 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 Mascorro is an 79 year-old woman with hx of dementia, advanced stages. She was initially admitted to [facility] for management of combative and impulsive behaviors secondary to dementia. She was stabilized on combination of depakote, olanzapine. She had episode of brief change in mental status. No VS abnormalities. She was transferred to medical floor for work up of TIA vs stroke, which was negative. Pt transferred back to continue medication management and stabilization and placement. PLAN 06/30 continue tx. 07/01 continue tx. awaiting placement, financial paperwork not completed to submit application for [employer]. 07/02 continue tx. 07/03 continue tx. 07/06 continue tx. awaiting placement. 07/07 continue tx. 07/08 continue tx. 07/09: no change. continue current mgmt. 07/10: poor sleep overnight of 2 hours. constipation, small BM overnight. continue current mgmt for now. 07/11: Patient remained stable; no change in presentation; continue treatment plan 07/12; no change in presentation; continue treatment but 07/13 continue tx. UA ordered for increase urinary frequency 07/14 continue tx. 07/15 continue tx. 07/16 continue tx. 07/17 seen by hospitalist, depakote was increased 250mg po TID, ammonia checked today wnl. recommend to recheck ammonia with hihger dose and monitor hyponatremia. 07/18: continue current management and treatment plan.Neurology consult pending. 07/19: continue current management and treatment plan. 07/20: continue current management and treatment plan. 07/21 lowered depakote to 250mg po BID. hyponatremia on 07/19, 129, improved today 134. 07/22 continue tx. Reason for continued inpatient stay Substantial Risk for: inability to function Time Spent With Patient Time: Total time managing care of this patient today ____ minutes.
[2024-07-22] MEDS: Divalproex Sodium Sprinkles 125 MG CAP.DR.SPR 250 MG PO ×2 (08:37→20:35)
[2024-07-22 08:38] VITALS: BP 150/72
[2024-07-22] MEDS: OLANZapine 2.5 MG TABLET PO ×2 (08:38→20:35)
[2024-07-22] MEDS: oxyBUTYnin chloride ER 5 MG TAB.ER.24 15 MG PO (08:38)
[2024-07-22] MEDS: lisinopriL 5 MG TABLET PO (08:38)
[2024-07-22] MEDS: Cholecalciferol (Vitamin D3) 25 MCG TABLET 50 MCG PO (08:38)
[2024-07-22] MEDS: Fluticasone Propionate Nasal 16 GM SPRAY 2 SPRAY NOSTRIL-B (08:44)
[2024-07-22] MEDS: timoloL maleate 0.5 % Oph Sol 5 ML DRBTL 1 DROP EYE-BOTH ×2 (11:48→20:35)
[2024-07-22 20:00] VITALS: BP 120/83; PULSE 72; RESP 17; TEMP 36.3; O2SAT 96
[2024-07-22] MEDS: Atorvastatin Calcium 20 MG TABLET PO (20:34)
[2024-07-22] MEDS: traZODone HCL 50 MG TABLET PO (20:35)
[2024-07-22] MEDS: Acetaminophen 325 MG TABLET 650 MG PO (20:35)
[2024-07-23] MEDS: Levothyroxine Sodium 75 MCG TABLET PO (05:43)
[2024-07-23] MEDS: Omeprazole 20 MG CAPSULE.DR PO (05:59)
[2024-07-23 06:00] VITALS: BMI 20.7
[2024-07-23 09:56] VITALS: BP 146/70; PULSE 75; RESP 23; TEMP 36.8; O2SAT 98
[2024-07-23] MEDS: Fluticasone Propionate Nasal 16 GM SPRAY 2 SPRAY NOSTRIL-B (10:06)
[2024-07-23] MEDS: timoloL maleate 0.5 % Oph Sol 5 ML DRBTL 1 DROP EYE-BOTH ×2 (10:06→21:14)
[2024-07-23] MEDS: oxyBUTYnin chloride ER 5 MG TAB.ER.24 15 MG PO (10:09)
[2024-07-23] MEDS: Cholecalciferol (Vitamin D3) 25 MCG TABLET 50 MCG PO (10:09)
[2024-07-23] MEDS: lisinopriL 5 MG TABLET PO (10:10)
[2024-07-23] MEDS: Divalproex Sodium Sprinkles 125 MG CAP.DR.SPR 250 MG PO ×2 (10:10→21:07)
[2024-07-23] MEDS: OLANZapine 2.5 MG TABLET PO ×2 (10:11→21:07)
--- NOTE | 2024-07-23 10:57 | PC.NURSE ---
Pt with audible wheezing, respiratory rate of 23, c/o SOB, and barking cough. Reported to provider in person.
--- NOTE | 2024-07-23 11:24 | P.PNIM_ITS ---
Subjective Subjective Date of Service: 07/23/24 Interval History: 79-year-old female with a past medical history significant for HTN, HLD, GERD, dementia, hypothyroid, subdural hematoma, glaucoma, hearing loss, epilepsy and slurred speech, she is on [facility] psych for ongoing treatment of Alzheimers disease with combative and impulsive behaviors. On 06/02/2024 she was transferred to medical evaluation of altered mental status. She underwent stroke work up with CT head and CTA of head and neck, demonstrating no acute stroke. It was felt that due to her behavioral issues, she would not tolerate MRI, EEG at that time. Patient is seen in follow up for hypernatremia, syncopal episode and reported wheezing. On 06/18/2024 review of nursing notes indicated she become rigid/tense with garbled nonsensical speech which resolved after approximately 2 minutes. Her Blood pressure was elevated at that time. A similar episode 07/16/2024 and 07/17/2024. Recent carotid ultrasound reveals no stenosis. She recently had episode of hyponatremia, normalized at 136. She continue with episodes of altered mentation. She was unable to recall any these episodes due to advanced dementia. She is seen resting in bed. Patient is seen for cough and increased respiratory rate, occasional wheeze. CDhest x-ray with no active disease, she has no leukocytosis, no electrolyte abnormalities, creatinine at baseline. H&H at baseline. Appears euvolemic on exam. Respiratory panel ordered. Review of Systems Limited review of systems due to dementia. She denies any pain Physical Exam 2 Vital Signs: Vital Signs: Last Vital Signs Temp 98.3 F 07/23/24 09:56 Pulse 75 07/23/24 09:56 Resp 23 H 07/23/24 09:56 BP 146/70 H 07/23/24 09:56 Pulse Ox 98 07/23/24 09:56 O2 Del Method Room Air 07/23/24 09:56 BMI result Body Mass Index 20.7 CONST: Alert and confused, in NAD. Well nourished HEENT: Normocephalic, atraumatic, MMM RESP: Lungs clear, RRR even and regular HEART:,RRR, S1, S2. No murmur, no edema GI:Abdomen Soft NT, ND. + BS times four :Deferred SKIN: Warm dry and intact, no visible lesions or rashes NEURO:CN II-XII Intact bilaterally, Sensation intact. Speech clear PSYCH: Normal affect Objective Data Active Medications Acetaminophen (Acetaminophen 325 Mg Tablet) 650 mg PO Q6H PRN PRN Reason: Headache/Pain, Scale 1-10 Last Admin: 07/22/24 20:35 Dose: 650 mg Documented By: DAFNE Al Hydroxide/Mg Hydroxide (Magnesium Hydrox/Alum Hydrox 30 Ml Oral.Susp) 30 ml PO Q6H PRN PRN Reason: Heartburn/Nausea Albuterol/Ipratropium (Albuterol/Iprat 2.5/0.5mg 3 Ml Ampul.Neb) 3 ml INHALE RQ4H WHILE AWAKE PRN PRN Reason: Shortness of Breath/Wheezing Last Admin: 07/20/24 20:36 Dose: 3 ml Documented By: AMANDEEP Atorvastatin Calcium (Atorvastatin Calcium 20 Mg Tablet) 20 mg PO BEDTIME [facility] Last Admin: 07/22/24 20:34 Dose: 20 mg Documented By: DAFNE Divalproex Sodium (Divalproex Sodium Sprinkles 125 Mg ) 250 mg PO BID [facility] Last Admin: 07/23/24 10:10 Dose: 250 mg Documented By: MARCUS Fluticasone Propionate (Fluticasone Propionate Nasal 16 Gm [place]) 2 spray NOSTRIL-B DAILY [facility] Last Admin: 07/23/24 10:06 Dose: 2 spray Documented By: MARCUS Levothyroxine Sodium (Levothyroxine Sodium 75 Mcg Tablet) 75 mcg PO DAILY@0600 [facility] Last Admin: 07/23/24 05:43 Dose: 75 mcg Documented By: DAFNE Lisinopril (Lisinopril 5 Mg Tablet) 5 mg PO DAILY [facility]; Protocol Last Admin: 07/23/24 10:10 Dose: 5 mg Documented By: MARCUS Loperamide HCl (Loperamide Hcl 2 Mg Capsule) 2 mg PO Q4H PRN PRN Reason: loose stools Lorazepam (Lorazepam 0.5 Mg Tablet) 0.5 mg PO Q8H PRN PRN Reason: severe anxiety Last Admin: 07/13/24 20:41 Dose: 0.5 mg Documented By: MICHAEL Magnesium Hydroxide (Milk Of Magnesia 30 Ml Oral.Susp) 30 ml PO DAILY PRN PRN Reason: Constipation Last Admin: 07/08/24 18:33 Dose: 30 ml Documented By: GINGER Olanzapine (Olanzapine 2.5 Mg Tablet) 2.5 mg PO BID [facility] Last Admin: 07/23/24 10:11 Dose: 2.5 mg Documented By: MARCUS Omeprazole (Omeprazole 20 Mg Capsule.Dr) 20 mg PO DAILY@0630 [facility] Last Admin: 07/23/24 05:59 Dose: 20 mg Documented By: DAFNE Oxybutynin Chloride (Oxybutynin Chloride Er 5 Mg Tab.Er.24) 15 mg PO DAILY [facility] Last Admin: 07/23/24 10:09 Dose: 15 mg Documented By: MARCUS Timolol Maleate (Timolol Maleate 0.5 % Oph Peg 5 Ml Drbtl) 1 drop EYE-BOTH BID COUNT [facility] Last Admin: 07/23/24 10:06 Dose: 1 drop Documented By: MARCUS Trazodone HCl (Trazodone Hcl 50 Mg Tablet) 50 mg PO BEDTIME MRX1 PRN PRN Reason: Insomnia Last Admin: 07/22/24 20:35 Dose: 50 mg Documented By: DAFNE Vitamin D (Cholecalciferol (Vitamin D3) 25 Mcg Tablet) 50 mcg PO DAILY [facility] Last Admin: 07/23/24 10:09 Dose: 50 mcg Documented By: MARCUS Labs 07/19/24 18:56 07/23/24 11:47 Imaging Chest x-ray: Radiologist's impression: Impressions Chest X-Ray 07/23/24 12:15 IMPRESSION: No active pulmonary disease. Electronically signed by: Zach Adam MD 07/23/2024 12:58 PM EDT Assessment and Plan (1) Altered mental status: Status: Acute Plan Altered Mental status No documented history of seizure disorder. Has been seen by Neurology in the past. Carotid ultrasound negative for stenosis Was started on Depakote for mood disorder. Continue Depakote 250 b.i.d. Unable to tolerate MRI EEG without seizure activity Head and neck CTA with no large vessel occlusion or hemodynamically significant stenosis identified 05/2024 Dementia with behavioral and impulsive behaviors Plan per Psychiatry Hyponatremia 1500 cc fluid restriction. Sodium WNL HFrEF: 1500 mls fluid restriction. Pt is not currently on any diuretics with known HF. She appears euvolemic. Daily weights- 2 pounds in one day or 5 pounds in one week, can consult hospitalist/ portfolio mgr. Recent Chest Xray negative, BNP WNL Risk for aspiration: Aspiration precautions Speech therapy eval as needed DUO nebs prn. Will order Duoneb times one today for wheeze. CTA of head and neck in May revealed Possible esophageal wall thickening suggesting esophageal dysmotility with esophageal narrowing with esophagitis. Can pursue barium esophagram if continues with dysphagia HTN: Continue Lisinopril 5 mgs daily BP today 146/72 Stable. Low sodium diet recommended. Quality Stroke Does the patient have a stroke diagnosis?: No VTE Prior VTE?: No VTE Risk Level:: Medical - low VTE Device Contraindication: Treatment Not Indicated VTE Drug Contraindication: Treatment Not Indicated
[2024-07-23 12:05] LABS: Anion Gap 13 (12-20); Blood Urea Nitrogen 27 mg/dL (9-16); Calcium 8.5 mg/dL (8.4-10.2); Carbon Dioxide 25 mmol/L (22-29); Chloride 103 mmol/L (96-108); Creatinine Clr Calc Pharmacy 38.3; Estimated Glomerular Filt Rate 51; Glucose Random 104 mg/dL (60-115); Potassium 4.5 mmol/L (3.3-5.1); Sodium 136 mmol/L (135-145)
[2024-07-23 12:12] LABS: B Type Natriuretic Peptide 73 pg/mL (<100)
[2024-07-23 14:09] LABS: Influenza A PCR NEGATIVE (Negative); Influenza B PCR NEGATIVE (Negative); Resp Syncy Virus RNA Qual PCR NEGATIVE (Negative); SARS COV2 PCR INHOUSE NEGATIVE (Negative)
--- NOTE | 2024-07-23 15:21 | HO.PSYCHPN ---
Subjective Subjective Date of Service: 07/23/24 Reason For Visit: Combative Behaviors Subjective Notes: Conditional Voluntary Interim History: Pt slept through the night. She had a dry cough and appeared SOB. hospitalist consulted. Pt denies any pain or concern. She does ask about when is she going home. Review of Systems Review of Systems Limited review of systems due to dementia. She denies any pain Yes Unobtainable due to mental status Mental Status Exam Mental Status Exam Narrative: Appearance: casually groomed in bed Behavior: calm Psychomotor: no agitation or retardation noted Speech: garbled, difficult to understand TP: concrete TC: no questions Mood:ok Affect:calm, congruent SI: none expressed HI: none expressed VH/AH: no overt signs Delusions: none noted Insight/judgment: impaired x 2 Memory/cog: alert, not oriented to place, month or year nor situation. severe impairment in memory and cognition. Diagnostics Vital Signs (24Hr): Vital Signs - 24 hr 07/22/24 20:00 07/23/24 09:56 Temperature 97.4 F 98.3 F Pulse Rate 72 75 Respiratory Rate 17 23 H Blood Pressure 120/83 146/70 H Pulse Oximetry 96 98 Oxygen Delivery Method Room Air Room Air BMI result Body Mass Index 20.7 Labs 07/19/24 18:56 07/24/24 08:12 Labs: Laboratory Results - last 48 hr 07/23/24 07/23/24 11:47 13:05 Sodium 136 Potassium 4.5 Chloride 103 Carbon Dioxide 25 Anion Gap 13 BUN 27 H Creatinine 1.04 Estim Creat Clear Calc 38.3 Estimated GFR 51 Random Glucose 104 Calcium 8.5 B-Natriuretic Peptide 73 Influenza Type A (PCR) NEGATIVE Influenza Type B (PCR) NEGATIVE RSV RNA Qual (PCR) NEGATIVE SARS-CoV-2 RNA (RT-PCR) NEGATIVE Imaging Radiology Impressions: ITS Impressions Carotid Doppler Study 07/21/24 16:26 IMPRESSION: 1. RIGHT: Normal right internal carotid artery without significant atherosclerotic plaque or hemodynamically significant stenosis. 2. LEFT: Normal left internal carotid artery without significant atherosclerotic plaque or hemodynamically significant stenosis. Electronically signed by: Zach Adam MD 07/22/2024 09:13 AM EDT Chest X-Ray 07/23/24 12:15 IMPRESSION: No active pulmonary disease. Electronically signed by: Zach Adam MD 07/23/2024 12:58 PM EDT Medications Medications Current Medications Acetaminophen (Acetaminophen 325 Mg Tablet) 650 mg PO Q6H PRN PRN Reason: Headache/Pain, Scale 1-10 Last Admin: 07/22/24 20:35 Dose: 650 mg Al Hydroxide/Mg Hydroxide (Magnesium Hydrox/Alum Hydrox 30 Ml Oral.Susp) 30 ml PO Q6H PRN PRN Reason: Heartburn/Nausea Albuterol/Ipratropium (Albuterol/Iprat 2.5/0.5mg 3 Ml Ampul.Neb) 3 ml INHALE RQ4H WHILE AWAKE PRN PRN Reason: Shortness of Breath/Wheezing Last Admin: 07/20/24 20:36 Dose: 3 ml Atorvastatin Calcium (Atorvastatin Calcium 20 Mg Tablet) 20 mg PO BEDTIME [facility] Last Admin: 07/22/24 20:34 Dose: 20 mg Divalproex Sodium (Divalproex Sodium Sprinkles 125 Mg ) 250 mg PO BID [facility] Last Admin: 07/23/24 10:10 Dose: 250 mg Fluticasone Propionate (Fluticasone Propionate Nasal 16 Gm [place]) 2 spray NOSTRIL-B DAILY [facility] Last Admin: 07/23/24 10:06 Dose: 2 spray Levothyroxine Sodium (Levothyroxine Sodium 75 Mcg Tablet) 75 mcg PO DAILY@0600 [facility] Last Admin: 07/23/24 05:43 Dose: 75 mcg Lisinopril (Lisinopril 5 Mg Tablet) 5 mg PO DAILY [facility]; Protocol Last Admin: 07/23/24 10:10 Dose: 5 mg Loperamide HCl (Loperamide Hcl 2 Mg Capsule) 2 mg PO Q4H PRN PRN Reason: loose stools Lorazepam (Lorazepam 0.5 Mg Tablet) 0.5 mg PO Q8H PRN PRN Reason: severe anxiety Last Admin: 07/13/24 20:41 Dose: 0.5 mg Magnesium Hydroxide (Milk Of Magnesia 30 Ml Oral.Susp) 30 ml PO DAILY PRN PRN Reason: Constipation Last Admin: 07/08/24 18:33 Dose: 30 ml Olanzapine (Olanzapine 2.5 Mg Tablet) 2.5 mg PO BID [facility] Last Admin: 07/23/24 10:11 Dose: 2.5 mg Omeprazole (Omeprazole 20 Mg Capsule.Dr) 20 mg PO DAILY@0630 [facility] Last Admin: 07/23/24 05:59 Dose: 20 mg Oxybutynin Chloride (Oxybutynin Chloride Er 5 Mg Tab.Er.24) 15 mg PO DAILY [facility] Last Admin: 07/23/24 10:09 Dose: 15 mg Timolol Maleate (Timolol Maleate 0.5 % Oph Peg 5 Ml Drbtl) 1 drop EYE-BOTH BID [facility] Last Admin: 07/23/24 10:06 Dose: 1 drop Trazodone HCl (Trazodone Hcl 50 Mg Tablet) 50 mg PO BEDTIME MRX1 PRN PRN Reason: Insomnia Last Admin: 07/22/24 20:35 Dose: 50 mg Vitamin D (Cholecalciferol (Vitamin D3) 25 Mcg Tablet) 50 mcg PO DAILY [facility] Last Admin: 07/23/24 10:09 Dose: 50 mcg Allergies Allergies Allergy/AdvReac Type Severity Reaction Status Date / Time sulfamethoxazole Allergy Unknown Verified 03/03/24 14:32 [From Sulfamethoxazole-Trimethoprim] trimethoprim Allergy Unknown Verified 03/03/24 14:32 [From Sulfamethoxazole-Trimethoprim] Assessment & Plan Assessment & Plan (1) 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 Mascorro is an 79 year-old woman with hx of dementia, advanced stages. She was initially admitted to for management of combative and impulsive behaviors secondary to dementia. She was stabilized on combination of depakote, olanzapine. She had episode of brief change in mental status. No VS abnormalities. She was transferred to medical floor for work up of TIA vs stroke, which was negative. Pt transferred back to continue medication management and stabilization and placement. PLAN 06/30 continue tx. 07/01 continue tx. awaiting placement, financial paperwork not completed to submit application for [facility]. 07/02 continue tx. 07/03 continue tx. 07/06 continue tx. awaiting placement. 07/07 continue tx. 07/08 continue tx. 07/09: no change. continue current mgmt. 07/10: poor sleep overnight of 2 hours. constipation, small BM overnight. continue current mgmt for now. 07/11: Patient remained stable; no change in presentation; continue treatment plan 07/12; no change in presentation; continue treatment but 07/13 continue tx. UA ordered for increase urinary frequency 07/14 continue tx. 07/15 continue tx. 07/16 continue tx. 07/17 seen by hospitalist, depakote was increased 250mg po TID, ammonia checked today wnl. recommend to recheck ammonia with hihger dose and monitor hyponatremia. 07/18: continue current management and treatment plan.Neurology consult pending. 07/19: continue current management and treatment plan. 07/20: continue current management and treatment plan. 07/21 lowered depakote to 250mg po BID. hyponatremia on 07/19, 129, improved today 134. 07/22 continue tx. 07/23 continue tx. Reason for continued inpatient stay Substantial Risk for: inability to function Time Spent With Patient Time: Total time managing care of this patient today ____ minutes.
[2024-07-23 17:21] VITALS: PULSE 68; RESP 23; O2SAT 95
[2024-07-23] MEDS: Albuterol Sulfate 2.5 MG, Albuterol/Iprat 2.5/0.5MG 3 ML 3 ML INHALE (17:25)
[2024-07-23 20:00] VITALS: BP 121/60; PULSE 85; RESP 18; TEMP 36.6; O2SAT 95
[2024-07-23] MEDS: Atorvastatin Calcium 20 MG TABLET PO (21:07)
[2024-07-24] MEDS: Omeprazole 20 MG CAPSULE.DR PO (06:23)
[2024-07-24] MEDS: Levothyroxine Sodium 75 MCG TABLET PO (06:23)
[2024-07-24 08:10] VITALS: BP 132/78; PULSE 79; RESP 18; TEMP 36.8; O2SAT 94
[2024-07-24 08:32] LABS: Ammonia 29 umol/L (13-55)
[2024-07-24 08:36] LABS: Valproate 45.7 mcg/mL (50.0-100.0)
[2024-07-24 08:37] LABS: Anion Gap 10 (12-20); Blood Urea Nitrogen 22 mg/dL (9-16); Calcium 8.9 mg/dL (8.4-10.2); Carbon Dioxide 27 mmol/L (22-29); Chloride 103 mmol/L (96-108); Estimated Glomerular Filt Rate 49; Glucose Random 108 mg/dL (60-115); Potassium 4.2 mmol/L (3.3-5.1); Sodium 136 mmol/L (135-145)
[2024-07-24] MEDS: Cholecalciferol (Vitamin D3) 25 MCG TABLET 50 MCG PO (08:58)
[2024-07-24] MEDS: timoloL maleate 0.5 % Oph Sol 5 ML DRBTL 1 DROP EYE-BOTH ×2 (08:58→19:27)
[2024-07-24] MEDS: oxyBUTYnin chloride ER 5 MG TAB.ER.24 15 MG PO (08:58)
[2024-07-24] MEDS: Divalproex Sodium Sprinkles 125 MG CAP.DR.SPR 250 MG PO ×2 (08:59→19:27)
[2024-07-24] MEDS: lisinopriL 5 MG TABLET PO (09:00)
[2024-07-24] MEDS: Fluticasone Propionate Nasal 16 GM SPRAY 2 SPRAY NOSTRIL-B (09:00)
[2024-07-24] MEDS: OLANZapine 2.5 MG TABLET PO ×2 (09:00→19:27)
--- NOTE | 2024-07-24 11:39 | P.PNPSI_ITS ---
Subjective Subjective Date of Service: 07/24/24 Reason For Visit: Combative Behaviors Subjective Notes: Conditional Voluntary Interim History: Pt slept through the night. She has been ambulating with walker. Pt denies any pain or concern. She does ask about when is she going home. Review of Systems Review of Systems Limited review of systems due to dementia. She denies any pain Yes Unobtainable due to mental status Mental Status Exam Mental Status Exam Narrative: Appearance: casually groomed in bed Behavior: calm Psychomotor: no agitation or retardation noted Speech: garbled, difficult to understand TP: concrete TC: no questions Mood:ok Affect:calm, congruent SI: none expressed HI: none expressed VH/AH: no overt signs Delusions: none noted Insight/judgment: impaired x 2 Memory/cog: alert, not oriented to place, month or year nor situation. severe impairment in memory and cognition. Diagnostics Vital Signs (24Hr): Vital Signs - 24 hr 07/23/24 17:21 07/23/24 20:00 07/24/24 08:10 Temperature 98 F 98.2 F Pulse Rate 68 85 79 Respiratory Rate 23 H 18 18 Blood Pressure 121/60 132/78 Pulse Oximetry 95 94 Oxygen Delivery Method Room Air Room Air BMI result Body Mass Index 20.7 Labs 07/19/24 18:56 07/24/24 08:12 Labs: Laboratory Results - last 48 hr 07/23/24 07/23/24 07/24/24 11:47 13:05 08:12 Sodium 136 136 Potassium 4.5 4.2 Chloride 103 103 Carbon Dioxide 25 27 Anion Gap 13 10 L BUN 27 H 22 H Creatinine 1.04 1.08 Estim Creat Clear Calc 38.3 37.0 Estimated GFR 51 49 Random Glucose 104 108 Calcium 8.5 8.9 Ammonia 29 B-Natriuretic Peptide 73 Valproic Acid 45.7 L Influenza Type A (PCR) NEGATIVE Influenza Type B (PCR) NEGATIVE RSV RNA Qual (PCR) NEGATIVE SARS-CoV-2 RNA (RT-PCR) NEGATIVE Imaging Radiology Impressions: ITS Impressions Carotid Doppler Study 07/21/24 16:26 IMPRESSION: 1. RIGHT: Normal right internal carotid artery without significant atherosclerotic plaque or hemodynamically significant stenosis. 2. LEFT: Normal left internal carotid artery without significant atherosclerotic plaque or hemodynamically significant stenosis. Electronically signed by: Zach Adam MD 07/22/2024 09:13 AM EDT RP Chest X-Ray 07/23/24 12:15 IMPRESSION: No active pulmonary disease. Electronically signed by: Zach Adam MD 07/23/2024 12:58 PM EDT RP Medications Medications Current Medications Acetaminophen (Acetaminophen 325 Mg Tablet) 650 mg PO Q6H PRN PRN Reason: Headache/Pain, Scale 1-10 Last Admin: 07/22/24 20:35 Dose: 650 mg Al Hydroxide/Mg Hydroxide (Magnesium Hydrox/Alum Hydrox 30 Ml Oral.Susp) 30 ml PO Q6H PRN PRN Reason: Heartburn/Nausea Albuterol/Ipratropium (Albuterol/Iprat 2.5/0.5mg 3 Ml Ampul.Neb) 3 ml INHALE RQ4H WHILE AWAKE PRN PRN Reason: Shortness of Breath/Wheezing Last Admin: 07/20/24 20:36 Dose: 3 ml Atorvastatin Calcium (Atorvastatin Calcium 20 Mg Tablet) 20 mg PO BEDTIME [facility] Last Admin: 07/23/24 21:07 Dose: 20 mg Divalproex Sodium (Divalproex Sodium Sprinkles 125 Mg ) 250 mg PO BID [facility] Last Admin: 07/24/24 08:59 Dose: 250 mg Fluticasone Propionate (Fluticasone Propionate Nasal 16 Gm [place]) 2 spray NOSTRIL-B DAILY [facility] Last Admin: 07/24/24 09:00 Dose: 2 spray Levothyroxine Sodium (Levothyroxine Sodium 75 Mcg Tablet) 75 mcg PO DAILY@0600 [facility] Last Admin: 07/24/24 06:23 Dose: 75 mcg Lisinopril (Lisinopril 5 Mg Tablet) 5 mg PO DAILY [facility]; Protocol Last Admin: 07/24/24 09:00 Dose: 5 mg Loperamide HCl (Loperamide Hcl 2 Mg Capsule) 2 mg PO Q4H PRN PRN Reason: loose stools Lorazepam (Lorazepam 0.5 Mg Tablet) 0.5 mg PO Q8H PRN PRN Reason: severe anxiety Last Admin: 07/13/24 20:41 Dose: 0.5 mg Magnesium Hydroxide (Milk Of Magnesia 30 Ml Oral.Susp) 30 ml PO DAILY PRN PRN Reason: Constipation Last Admin: 07/08/24 18:33 Dose: 30 ml Olanzapine (Olanzapine 2.5 Mg Tablet) 2.5 mg PO BID [facility] Last Admin: 07/24/24 09:00 Dose: 2.5 mg Omeprazole (Omeprazole 20 Mg Capsule.Dr) 20 mg PO DAILY@0630 [facility] Last Admin: 07/24/24 06:23 Dose: 20 mg Oxybutynin Chloride (Oxybutynin Chloride Er 5 Mg Tab.Er.24) 15 mg PO DAILY [facility] Last Admin: 07/24/24 08:58 Dose: 15 mg Timolol Maleate (Timolol Maleate 0.5 % Oph Peg 5 Ml Drbtl) 1 drop EYE-BOTH BID [facility] Last Admin: 07/24/24 08:58 Dose: 1 drop Trazodone HCl (Trazodone Hcl 50 Mg Tablet) 50 mg PO BEDTIME MRX1 PRN PRN Reason: Insomnia Last Admin: 07/22/24 20:35 Dose: 50 mg Vitamin D (Cholecalciferol (Vitamin D3) 25 Mcg Tablet) 50 mcg PO DAILY [facility] Last Admin: 07/24/24 08:58 Dose: 50 mcg Allergies Allergies Allergy/AdvReac Type Severity Reaction Status Date / Time sulfamethoxazole Allergy Unknown Verified 03/03/24 14:32 [From Sulfamethoxazole-Trimethoprim] trimethoprim Allergy Unknown Verified 03/03/24 14:32 [From Sulfamethoxazole-Trimethoprim] Assessment & Plan Assessment & Plan (1) 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 Mascorro is an 79 year-old woman with hx of dementia, advanced stages. She was initially admitted to for management of combative and impulsive behaviors secondary to dementia. She was stabilized on combination of depakote, olanzapine. She had episode of brief change in mental status. No VS abnormalities. She was transferred to medical floor for work up of TIA vs stroke, which was negative. Pt transferred back to continue medication management and stabilization and placement. PLAN 06/30 continue tx. 07/01 continue tx. awaiting placement, financial paperwork not completed to submit application for [facility]. 07/02 continue tx. 07/03 continue tx. 07/06 continue tx. awaiting placement. 07/07 continue tx. 07/08 continue tx. 07/09: no change. continue current mgmt. 07/10: poor sleep overnight of 2 hours. constipation, small BM overnight. continue current mgmt for now. 07/11: Patient remained stable; no change in presentation; continue treatment plan 07/12; no change in presentation; continue treatment but 07/13 continue tx. UA ordered for increase urinary frequency 07/14 continue tx. 07/15 continue tx. 07/16 continue tx. 07/17 seen by hospitalist, depakote was increased 250mg po TID, ammonia checked today wnl. recommend to recheck ammonia with hihger dose and monitor hyponatremia. 07/18: continue current management and treatment plan.Neurology consult pending. 07/19: continue current management and treatment plan. 07/20: continue current management and treatment plan. 07/21 lowered depakote to 250mg po BID. hyponatremia on 07/19, 129, improved today 134. 07/22 continue tx. 07/23 continue tx. 07/24 continue tx. Reason for continued inpatient stay Substantial Risk for: inability to function Time Spent With Patient Time: Total time managing care of this patient today ____ minutes.
[2024-07-24 12:25] VITALS: BMI 20.2
[2024-07-24] MEDS: LORazepam 0.5 MG TABLET PO (18:17)
[2024-07-24 19:25] VITALS: BP 124/58; PULSE 79; RESP 18; TEMP 36.6; O2SAT 92
[2024-07-24] MEDS: traZODone HCL 50 MG TABLET PO (19:27)
[2024-07-24] MEDS: Atorvastatin Calcium 20 MG TABLET PO (19:27)
[2024-07-24] MEDS: Albuterol/Iprat 2.5/0.5MG 3 ML AMPUL.NEB INHALE (20:35)
[2024-07-24 20:37] VITALS: PULSE 64; RESP 16
[2024-07-25] MEDS: Levothyroxine Sodium 75 MCG TABLET PO (05:20)
[2024-07-25] MEDS: Omeprazole 20 MG CAPSULE.DR PO (05:48)
[2024-07-25 06:00] VITALS: BMI 20.4
[2024-07-25 08:00] VITALS: BP 122/60; PULSE 80; RESP 16; TEMP 36.8; O2SAT 96
[2024-07-25] MEDS: Milk of Magnesia 30 ML ORAL.SUSP PO (09:11)
[2024-07-25] MEDS: oxyBUTYnin chloride ER 5 MG TAB.ER.24 15 MG PO (09:11)
[2024-07-25] MEDS: Cholecalciferol (Vitamin D3) 25 MCG TABLET 50 MCG PO (09:11)
[2024-07-25 09:14] VITALS: BP 122/62
[2024-07-25] MEDS: lisinopriL 5 MG TABLET PO (09:14)
[2024-07-25] MEDS: OLANZapine 2.5 MG TABLET PO ×2 (09:14→19:22)
[2024-07-25] MEDS: timoloL maleate 0.5 % Oph Sol 5 ML DRBTL 1 DROP EYE-BOTH ×2 (09:15→19:21)
[2024-07-25] MEDS: Fluticasone Propionate Nasal 16 GM SPRAY 2 SPRAY NOSTRIL-B (09:15)
[2024-07-25] MEDS: Divalproex Sodium Sprinkles 125 MG CAP.DR.SPR 250 MG PO ×2 (09:15→19:22)
[2024-07-25] MEDS: Albuterol/Iprat 2.5/0.5MG 3 ML AMPUL.NEB INHALE (13:09)
[2024-07-25 13:19] VITALS: PULSE 76; RESP 18; O2SAT 97
--- NOTE | 2024-07-25 17:35 | P.PNPSI_ITS ---
Subjective Subjective Date of Service: 07/25/24 Reason For Visit: Combative Behaviors Subjective Notes: Conditional Voluntary Interim History: Pt slept through the night. She has been ambulating with walker. Pt denies any pain or concern. She does ask about when is she going home. VS stable. no change in behaviors. Review of Systems Review of Systems Limited review of systems due to dementia. She denies any pain Yes Unobtainable due to mental status Mental Status Exam Mental Status Exam Narrative: Appearance: casually groomed in bed Behavior: calm Psychomotor: no agitation or retardation noted Speech: garbled, difficult to understand TP: concrete TC: no questions Mood:ok Affect:calm, congruent SI: none expressed HI: none expressed VH/AH: no overt signs Delusions: none noted Insight/judgment: impaired x 2 Memory/cog: alert, not oriented to place, month or year nor situation. severe impairment in memory and cognition. Diagnostics Vital Signs (24Hr): Vital Signs - 24 hr 07/24/24 19:25 07/24/24 20:37 07/25/24 08:00 Temperature 98 F 98.2 F Pulse Rate 79 64 80 Respiratory Rate 18 16 16 Blood Pressure 124/58 L 122/60 Pulse Oximetry 92 96 Oxygen Delivery Method Room Air Room Air 07/25/24 09:14 07/25/24 13:19 Temperature Pulse Rate 76 Respiratory Rate 18 Blood Pressure 122/62 Pulse Oximetry Oxygen Delivery Method BMI result Body Mass Index 20.4 Labs 07/19/24 18:56 07/24/24 08:12 Labs: Laboratory Results - last 48 hr 07/24/24 08:12 Sodium 136 Potassium 4.2 Chloride 103 Carbon Dioxide 27 Anion Gap 10 L BUN 22 H Creatinine 1.08 Estim Creat Clear Calc 37.0 Estimated GFR 49 Random Glucose 108 Calcium 8.9 Ammonia 29 Valproic Acid 45.7 L Imaging Radiology Impressions: ITS Impressions Carotid Doppler Study 07/21/24 16:26 IMPRESSION: 1. RIGHT: Normal right internal carotid artery without significant atherosclerotic plaque or hemodynamically significant stenosis. 2. LEFT: Normal left internal carotid artery without significant atherosclerotic plaque or hemodynamically significant stenosis. Electronically signed by: Zach Adam MD 07/22/2024 09:13 AM EDT Chest X-Ray 07/23/24 12:15 IMPRESSION: No active pulmonary disease. Electronically signed by: Zach Adam MD 07/23/2024 12:58 PM EDT Medications Medications Current Medications Acetaminophen (Acetaminophen 325 Mg Tablet) 650 mg PO Q6H PRN PRN Reason: Headache/Pain, Scale 1-10 Last Admin: 07/22/24 20:35 Dose: 650 mg Al Hydroxide/Mg Hydroxide (Magnesium Hydrox/Alum Hydrox 30 Ml Oral.Susp) 30 ml PO Q6H PRN PRN Reason: Heartburn/Nausea Albuterol/Ipratropium (Albuterol/Iprat 2.5/0.5mg 3 Ml Ampul.Neb) 3 ml INHALE RQ4H WHILE AWAKE PRN PRN Reason: Shortness of Breath/Wheezing Last Admin: 07/25/24 13:09 Dose: 3 ml Atorvastatin Calcium (Atorvastatin Calcium 20 Mg Tablet) 20 mg PO BEDTIME [facility] Last Admin: 07/24/24 19:27 Dose: 20 mg Divalproex Sodium (Divalproex Sodium Sprinkles 125 Mg ) 250 mg PO BID [facility] Last Admin: 07/25/24 09:15 Dose: 250 mg Fluticasone Propionate (Fluticasone Propionate Nasal 16 Gm [place]) 2 spray NOSTRIL-B DAILY [facility] Last Admin: 07/25/24 09:15 Dose: 2 spray Levothyroxine Sodium (Levothyroxine Sodium 75 Mcg Tablet) 75 mcg PO DAILY@0600 [facility] Last Admin: 07/25/24 05:20 Dose: 75 mcg Lisinopril (Lisinopril 5 Mg Tablet) 5 mg PO DAILY [facility]; Protocol Last Admin: 07/25/24 09:14 Dose: 5 mg Loperamide HCl (Loperamide Hcl 2 Mg Capsule) 2 mg PO Q4H PRN PRN Reason: loose stools Lorazepam (Lorazepam 0.5 Mg Tablet) 0.5 mg PO Q8H PRN PRN Reason: severe anxiety Last Admin: 07/24/24 18:17 Dose: 0.5 mg Magnesium Hydroxide (Milk Of Magnesia 30 Ml Oral.Susp) 30 ml PO DAILY PRN PRN Reason: Constipation Last Admin: 07/25/24 09:11 Dose: 30 ml Olanzapine (Olanzapine 2.5 Mg Tablet) 2.5 mg PO BID [facility] Last Admin: 07/25/24 09:14 Dose: 2.5 mg Omeprazole (Omeprazole 20 Mg Capsule.Dr) 20 mg PO DAILY@0630 [facility] Last Admin: 07/25/24 05:48 Dose: 20 mg Oxybutynin Chloride (Oxybutynin Chloride Er 5 Mg Tab.Er.24) 15 mg PO DAILY [facility] Last Admin: 07/25/24 09:11 Dose: 15 mg Timolol Maleate (Timolol Maleate 0.5 % Oph Peg 5 Ml Drbtl) 1 drop EYE-BOTH BID [facility] Last Admin: 07/25/24 09:15 Dose: 1 drop Trazodone HCl (Trazodone Hcl 50 Mg Tablet) 50 mg PO BEDTIME MRX1 PRN PRN Reason: Insomnia Last Admin: 07/24/24 19:27 Dose: 50 mg Vitamin D (Cholecalciferol (Vitamin D3) 25 Mcg Tablet) 50 mcg PO DAILY [facility] Last Admin: 07/25/24 09:11 Dose: 50 mcg Allergies Allergies Allergy/AdvReac Type Severity Reaction Status Date / Time sulfamethoxazole Allergy Unknown Verified 03/03/24 14:32 [From Sulfamethoxazole-Trimethoprim] trimethoprim Allergy Unknown Verified 03/03/24 14:32 [From Sulfamethoxazole-Trimethoprim] Assessment & Plan Assessment & Plan (1) 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 Mascorro is an 79 year-old woman with hx of dementia, advanced stages. She was initially admitted to for management of combative and impulsive behaviors secondary to dementia. She was stabilized on combination of depakote, olanzapine. She had episode of brief change in mental status. No VS abnormalities. She was transferred to medical floor for work up of TIA vs stroke, which was negative. Pt transferred back to continue medication management and stabilization and placement. PLAN 06/30 continue tx. 07/01 continue tx. awaiting placement, financial paperwork not completed to submit application for [facility]. 07/02 continue tx. 07/03 continue tx. 07/06 continue tx. awaiting placement. 07/07 continue tx. 07/08 continue tx. 07/09: no change. continue current mgmt. 07/10: poor sleep overnight of 2 hours. constipation, small BM overnight. continue current mgmt for now. 07/11: Patient remained stable; no change in presentation; continue treatment plan 07/12; no change in presentation; continue treatment but 07/13 continue tx. UA ordered for increase urinary frequency 07/14 continue tx. 07/15 continue tx. 07/16 continue tx. 07/17 seen by hospitalist, depakote was increased 250mg po TID, ammonia checked today wnl. recommend to recheck ammonia with hihger dose and monitor hyponatremia. 07/18: continue current management and treatment plan.Neurology consult pending. 07/19: continue current management and treatment plan. 07/20: continue current management and treatment plan. 07/21 lowered depakote to 250mg po BID. hyponatremia on 07/19, 129, improved today 134. 07/22 continue tx. 07/23 continue tx. 07/24 continue tx. 07/25 continue tx. Reason for continued inpatient stay Substantial Risk for: inability to function Time Spent With Patient Time: Total time managing care of this patient today ____ minutes.
[2024-07-25 19:20] VITALS: BP 108/56; PULSE 71; RESP 16; TEMP 36.7; O2SAT 91
[2024-07-25] MEDS: traZODone HCL 50 MG TABLET PO (19:21)
[2024-07-25] MEDS: Atorvastatin Calcium 20 MG TABLET PO (19:21)
[2024-07-26 05:44] VITALS: BMI 22.6
[2024-07-26] MEDS: Levothyroxine Sodium 75 MCG TABLET PO (06:11)
[2024-07-26] MEDS: Omeprazole 20 MG CAPSULE.DR PO (06:12)
[2024-07-26 08:10] VITALS: BP 129/61; PULSE 66; RESP 18; TEMP 36.8; O2SAT 97
[2024-07-26] MEDS: oxyBUTYnin chloride ER 5 MG TAB.ER.24 15 MG PO (08:10)
[2024-07-26] MEDS: Cholecalciferol (Vitamin D3) 25 MCG TABLET 50 MCG PO (08:10)
[2024-07-26 08:11] VITALS: BP 129/61
[2024-07-26] MEDS: Divalproex Sodium Sprinkles 125 MG CAP.DR.SPR 250 MG PO ×2 (08:11→20:34)
[2024-07-26] MEDS: lisinopriL 5 MG TABLET PO (08:11)
[2024-07-26] MEDS: OLANZapine 2.5 MG TABLET PO ×2 (08:11→20:34)
[2024-07-26] MEDS: timoloL maleate 0.5 % Oph Sol 5 ML DRBTL 1 DROP EYE-BOTH ×2 (08:16→20:34)
[2024-07-26] MEDS: Fluticasone Propionate Nasal 16 GM SPRAY 2 SPRAY NOSTRIL-B (08:16)
[2024-07-26 20:00] VITALS: BP 133/76; PULSE 100; TEMP 37.1; O2SAT 91
[2024-07-26] MEDS: Atorvastatin Calcium 20 MG TABLET PO (20:34)
[2024-07-26] MEDS: traZODone HCL 50 MG TABLET PO (20:35)
[2024-07-26] MEDS: Acetaminophen 325 MG TABLET 650 MG PO (20:35)
--- NOTE | 2024-07-26 21:44 | HO.PSYCHPN ---
Subjective Subjective Date of Service: 07/26/24 Reason For Visit: Combative Behaviors Subjective Notes: Conditional Voluntary Interim History: Pt slept through the night. She has been ambulating with walker. Pt denies any pain or concern. She does ask about when is she going home. VS stable. no change in behaviors. Review of Systems Review of Systems Limited review of systems due to dementia. She denies any pain Yes Unobtainable due to mental status Mental Status Exam Mental Status Exam Narrative: Appearance: casually groomed in bed Behavior: calm Psychomotor: no agitation or retardation noted Speech: garbled, difficult to understand TP: concrete TC: no questions Mood:ok Affect:calm, congruent SI: none expressed HI: none expressed VH/AH: no overt signs Delusions: none noted Insight/judgment: impaired x 2 Memory/cog: alert, not oriented to place, month or year nor situation. severe impairment in memory and cognition. Diagnostics Vital Signs (24Hr): Vital Signs - 24 hr 07/26/24 08:10 07/26/24 08:11 07/26/24 20:00 Temperature 98.2 F 98.7 F Pulse Rate 66 100 Respiratory Rate 18 Blood Pressure 129/61 129/61 133/76 Pulse Oximetry 97 91 L Oxygen Delivery Method Room Air Room Air BMI result Body Mass Index 22.6 Labs 07/19/24 18:56 07/24/24 08:12 Imaging Radiology Impressions: ITS Impressions Carotid Doppler Study 07/21/24 16:26 IMPRESSION: 1. RIGHT: Normal right internal carotid artery without significant atherosclerotic plaque or hemodynamically significant stenosis. 2. LEFT: Normal left internal carotid artery without significant atherosclerotic plaque or hemodynamically significant stenosis. Electronically signed by: Zach Adam MD 07/22/2024 09:13 AM EDT Chest X-Ray 07/23/24 12:15 IMPRESSION: No active pulmonary disease. Electronically signed by: Zach Adam MD 07/23/2024 12:58 PM EDT Medications Medications Current Medications Acetaminophen (Acetaminophen 325 Mg Tablet) 650 mg PO Q6H PRN PRN Reason: Headache/Pain, Scale 1-10 Last Admin: 07/26/24 20:35 Dose: 650 mg Al Hydroxide/Mg Hydroxide (Magnesium Hydrox/Alum Hydrox 30 Ml Oral.Susp) 30 ml PO Q6H PRN PRN Reason: Heartburn/Nausea Atorvastatin Calcium (Atorvastatin Calcium 20 Mg Tablet) 20 mg PO BEDTIME [facility] Last Admin: 07/26/24 20:34 Dose: 20 mg Divalproex Sodium (Divalproex Sodium Sprinkles 125 Mg Cap.Dr.Spr) 250 mg PO BID [facility] Last Admin: 07/26/24 20:34 Dose: 250 mg Fluticasone Propionate (Fluticasone Propionate Nasal 16 Gm [place]) 2 spray NOSTRIL-B DAILY [facility] Last Admin: 07/26/24 08:16 Dose: 2 spray Guaifenesin/Dextromethorphan (Guaifenesin Dm 600/30 1 Tab Tab.Er.12h) 1 tab PO BID [facility] Levothyroxine Sodium (Levothyroxine Sodium 75 Mcg Tablet) 75 mcg PO DAILY@0600 [facility] Last Admin: 07/26/24 06:11 Dose: 75 mcg Lisinopril (Lisinopril 5 Mg Tablet) 5 mg PO DAILY [facility]; Protocol Last Admin: 07/26/24 08:11 Dose: 5 mg Loperamide HCl (Loperamide Hcl 2 Mg Capsule) 2 mg PO Q4H PRN PRN Reason: loose stools Magnesium Hydroxide (Milk Of Magnesia 30 Ml Oral.Susp) 30 ml PO DAILY PRN PRN Reason: Constipation Last Admin: 07/25/24 09:11 Dose: 30 ml Olanzapine (Olanzapine 2.5 Mg Tablet) 2.5 mg PO BID [facility] Last Admin: 07/26/24 20:34 Dose: 2.5 mg Omeprazole (Omeprazole 20 Mg Capsule.Dr) 20 mg PO DAILY@0630 [facility] Last Admin: 07/26/24 06:12 Dose: 20 mg Oxybutynin Chloride (Oxybutynin Chloride Er 5 Mg Tab.Er.24) 15 mg PO DAILY [facility] Last Admin: 07/26/24 08:10 Dose: 15 mg Timolol Maleate (Timolol Maleate 0.5 % Oph Peg 5 Ml Drbtl) 1 drop EYE-BOTH BID [facility] Last Admin: 07/26/24 20:34 Dose: 1 drop Trazodone HCl (Trazodone Hcl 50 Mg Tablet) 50 mg PO BEDTIME MRX1 PRN PRN Reason: Insomnia Last Admin: 07/26/24 20:35 Dose: 50 mg Vitamin D (Cholecalciferol (Vitamin D3) 25 Mcg Tablet) 50 mcg PO DAILY [facility] Last Admin: 07/26/24 08:10 Dose: 50 mcg Allergies Allergies Allergy/AdvReac Type Severity Reaction Status Date / Time sulfamethoxazole Allergy Unknown Verified 03/03/24 14:32 [From Sulfamethoxazole-Trimethoprim] trimethoprim Allergy Unknown Verified 03/03/24 14:32 [From Sulfamethoxazole-Trimethoprim] Assessment & Plan Assessment & Plan (1) 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 Mascorro is an 79 year-old woman with hx of dementia, advanced stages. She was initially admitted to [facility] for management of combative and impulsive behaviors secondary to dementia. She was stabilized on combination of depakote, olanzapine. She had episode of brief change in mental status. No VS abnormalities. She was transferred to medical floor for work up of TIA vs stroke, which was negative. Pt transferred back to continue medication management and stabilization and placement. PLAN 06/30 continue tx. 07/01 continue tx. awaiting placement, financial paperwork not completed to submit application for [facility]. 07/02 continue tx. 07/03 continue tx. 07/06 continue tx. awaiting placement. 07/07 continue tx. 07/08 continue tx. 07/09: no change. continue current mgmt. 07/10: poor sleep overnight of 2 hours. constipation, small BM overnight. continue current mgmt for now. 07/11: Patient remained stable; no change in presentation; continue treatment plan 07/12; no change in presentation; continue treatment but 07/13 continue tx. UA ordered for increase urinary frequency 07/14 continue tx. 07/15 continue tx. 07/16 continue tx. 07/17 seen by hospitalist, depakote was increased 250mg po TID, ammonia checked today wnl. recommend to recheck ammonia with hihger dose and monitor hyponatremia. 07/18: continue current management and treatment plan.Neurology consult pending. 07/19: continue current management and treatment plan. 07/20: continue current management and treatment plan. 07/21 lowered depakote to 250mg po BID. hyponatremia on 07/19, 129, improved today 134. 07/22 continue tx. 07/23 continue tx. 07/24 continue tx. 07/25 continue tx. 07/26 continue tx. Reason for continued inpatient stay Substantial Risk for: inability to function Time Spent With Patient Time: Total time managing care of this patient today ____ minutes.
[2024-07-26] MEDS: guaiFENesin DM 600/30 1 TAB TAB.ER.12H PO (21:56)
[2024-07-27] MEDS: Levothyroxine Sodium 75 MCG TABLET PO (05:43)
[2024-07-27] MEDS: Omeprazole 20 MG CAPSULE.DR PO (05:51)
[2024-07-27 06:00] VITALS: BMI 22.1
[2024-07-27 07:55] VITALS: BP 130/60; PULSE 68; RESP 18; TEMP 36.4; O2SAT 96
[2024-07-27] MEDS: oxyBUTYnin chloride ER 5 MG TAB.ER.24 15 MG PO (08:05)
[2024-07-27] MEDS: Cholecalciferol (Vitamin D3) 25 MCG TABLET 50 MCG PO (08:06)
[2024-07-27] MEDS: guaiFENesin DM 600/30 1 TAB TAB.ER.12H PO ×2 (08:06→19:28)
[2024-07-27] MEDS: Divalproex Sodium Sprinkles 125 MG CAP.DR.SPR 250 MG PO ×2 (08:06→19:28)
[2024-07-27] MEDS: lisinopriL 5 MG TABLET PO (08:06)
[2024-07-27] MEDS: OLANZapine 2.5 MG TABLET PO ×2 (08:06→19:28)
[2024-07-27] MEDS: timoloL maleate 0.5 % Oph Sol 5 ML DRBTL 1 DROP EYE-BOTH ×2 (08:12→19:28)
[2024-07-27] MEDS: Fluticasone Propionate Nasal 16 GM SPRAY 2 SPRAY NOSTRIL-B (08:12)
--- NOTE | 2024-07-27 11:11 | P.PNPSI_ITS ---
Subjective Subjective Date of Service: 07/27/24 Reason For Visit: Combative Behaviors Subjective Notes: Conditional Voluntary Interim History: Pt slept through the night. She has been ambulating with walker. Pt denies any pain or concern. She does ask about when is she going home. VS stable. no change in behaviors. continues to present with cough, on mucinex. o2sat improved with treatment duonebs. Review of Systems Review of Systems Limited review of systems due to dementia. She denies any pain Yes Unobtainable due to mental status Mental Status Exam Mental Status Exam Narrative: Appearance: casually groomed in bed Behavior: calm Psychomotor: no agitation or retardation noted Speech: garbled, difficult to understand TP: concrete TC: no questions Mood:ok Affect:calm, congruent SI: none expressed HI: none expressed VH/AH: no overt signs Delusions: none noted Insight/judgment: impaired x 2 Memory/cog: alert, not oriented to place, month or year nor situation. severe impairment in memory and cognition. Diagnostics Vital Signs (24Hr): Vital Signs - 24 hr 07/26/24 20:00 07/27/24 07:55 Temperature 98.7 F 97.6 F Pulse Rate 100 68 Respiratory Rate 18 Blood Pressure 133/76 130/60 Pulse Oximetry 91 L 96 Oxygen Delivery Method Room Air Room Air BMI result Body Mass Index 22.1 Labs 07/19/24 18:56 07/24/24 08:12 Imaging Radiology Impressions: ITS Impressions Carotid Doppler Study 07/21/24 16:26 IMPRESSION: 1. RIGHT: Normal right internal carotid artery without significant atherosclerotic plaque or hemodynamically significant stenosis. 2. LEFT: Normal left internal carotid artery without significant atherosclerotic plaque or hemodynamically significant stenosis. Electronically signed by: Zach Adam MD 07/22/2024 09:13 AM EDT RP Chest X-Ray 07/23/24 12:15 IMPRESSION: No active pulmonary disease. Electronically signed by: Zach Adam MD 07/23/2024 12:58 PM EDT RP Medications Medications Current Medications Acetaminophen (Acetaminophen 325 Mg Tablet) 650 mg PO Q6H PRN PRN Reason: Headache/Pain, Scale 1-10 Last Admin: 07/26/24 20:35 Dose: 650 mg Al Hydroxide/Mg Hydroxide (Magnesium Hydrox/Alum Hydrox 30 Ml Oral.Susp) 30 ml PO Q6H PRN PRN Reason: Heartburn/Nausea Albuterol/Ipratropium (Albuterol/Iprat 2.5/0.5mg 3 Ml Ampul.Neb) 3 ml INHALE RQ4H WHILE AWAKE PRN PRN Reason: SOB/wheezing Atorvastatin Calcium (Atorvastatin Calcium 20 Mg Tablet) 20 mg PO BEDTIME [facility] Last Admin: 07/26/24 20:34 Dose: 20 mg Divalproex Sodium (Divalproex Sodium Sprinkles 125 Mg Cap.) 250 mg PO BID [facility] Last Admin: 07/27/24 08:06 Dose: 250 mg Fluticasone Propionate (Fluticasone Propionate Nasal 16 Gm [place]) 2 spray NOSTRIL-B DAILY [facility] Last Admin: 07/27/24 08:12 Dose: 2 spray Guaifenesin/Dextromethorphan (Guaifenesin Dm 600/30 1 Tab Tab.Er.12h) 1 tab PO BID [facility] Last Admin: 07/27/24 08:06 Dose: 1 tab Levothyroxine Sodium (Levothyroxine Sodium 75 Mcg Tablet) 75 mcg PO DAILY@0600 [facility] Last Admin: 07/27/24 05:43 Dose: 75 mcg Lisinopril (Lisinopril 5 Mg Tablet) 5 mg PO DAILY [facility]; Protocol Last Admin: 07/27/24 08:06 Dose: 5 mg Loperamide HCl (Loperamide Hcl 2 Mg Capsule) 2 mg PO Q4H PRN PRN Reason: loose stools Lorazepam (Lorazepam 0.5 Mg Tablet) 0.5 mg PO Q8H PRN PRN Reason: Anxiety Magnesium Hydroxide (Milk Of Magnesia 30 Ml Oral.Susp) 30 ml PO DAILY PRN PRN Reason: Constipation Last Admin: 07/25/24 09:11 Dose: 30 ml Olanzapine (Olanzapine 2.5 Mg Tablet) 2.5 mg PO BID [facility] Last Admin: 07/27/24 08:06 Dose: 2.5 mg Omeprazole (Omeprazole 20 Mg Capsule.) 20 mg PO DAILY@0630 [facility] Last Admin: 07/27/24 05:51 Dose: 20 mg Oxybutynin Chloride (Oxybutynin Chloride Er 5 Mg Tab.Er.24) 15 mg PO DAILY [facility] Last Admin: 07/27/24 08:05 Dose: 15 mg Timolol Maleate (Timolol Maleate 0.5 % Oph Peg 5 Ml Drbtl) 1 drop EYE-BOTH BID [facility] Last Admin: 07/27/24 08:12 Dose: 1 drop Trazodone HCl (Trazodone Hcl 50 Mg Tablet) 50 mg PO BEDTIME MRX1 PRN PRN Reason: Insomnia Last Admin: 07/26/24 20:35 Dose: 50 mg Vitamin D (Cholecalciferol (Vitamin D3) 25 Mcg Tablet) 50 mcg PO DAILY [facility] Last Admin: 07/27/24 08:06 Dose: 50 mcg Allergies Allergies Allergy/AdvReac Type Severity Reaction Status Date / Time sulfamethoxazole Allergy Unknown Verified 03/03/24 14:32 [From Sulfamethoxazole-Trimethoprim] trimethoprim Allergy Unknown Verified 03/03/24 14:32 [From Sulfamethoxazole-Trimethoprim] Assessment & Plan Assessment & Plan (1) 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 Mascorro is an 79 year-old woman with hx of dementia, advanced stages. She was initially admitted to for management of combative and impulsive behaviors secondary to dementia. She was stabilized on combination of depakote, olanzapine. She had episode of brief change in mental status. No VS abnormalities. She was transferred to medical floor for work up of TIA vs stroke, which was negative. Pt transferred back to continue medication management and stabilization and placement. PLAN 06/30 continue tx. 07/01 continue tx. awaiting placement, financial paperwork not completed to submit application for [employer]. 07/02 continue tx. 07/03 continue tx. 07/06 continue tx. awaiting placement. 07/07 continue tx. 07/08 continue tx. 07/09: no change. continue current mgmt. 07/10: poor sleep overnight of 2 hours. constipation, small BM overnight. continue current mgmt for now. 07/11: Patient remained stable; no change in presentation; continue treatment plan 07/12; no change in presentation; continue treatment but 07/13 continue tx. UA ordered for increase urinary frequency 07/14 continue tx. 07/15 continue tx. 07/16 continue tx. 07/17 seen by hospitalist, depakote was increased 250mg po TID, ammonia checked today wnl. recommend to recheck ammonia with hihger dose and monitor hyponatremia. 07/18: continue current management and treatment plan.Neurology consult pending. 07/19: continue current management and treatment plan. 07/20: continue current management and treatment plan. 07/21 lowered depakote to 250mg po BID. hyponatremia on 07/19, 129, improved today 134. 07/22 continue tx. 07/23 continue tx. 07/24 continue tx. 07/25 continue tx. 07/26 continue tx. 07/27 continue tx. Reason for continued inpatient stay Substantial Risk for: inability to function Time Spent With Patient Time: Total time managing care of this patient today ____ minutes.
[2024-07-27] MEDS: Albuterol/Iprat 2.5/0.5MG 3 ML AMPUL.NEB INHALE (18:22)
[2024-07-27 18:23] VITALS: PULSE 68; RESP 18; O2SAT 96
[2024-07-27 19:25] VITALS: BP 126/60; PULSE 93; RESP 16; TEMP 37.3; O2SAT 91
[2024-07-27] MEDS: Atorvastatin Calcium 20 MG TABLET PO (19:28)
[2024-07-28] MEDS: Levothyroxine Sodium 75 MCG TABLET PO (05:16)
[2024-07-28] MEDS: Omeprazole 20 MG CAPSULE.DR PO (05:38)
[2024-07-28 06:00] VITALS: BMI 22.3
[2024-07-28 07:55] VITALS: BP 122/64; PULSE 75; RESP 18; TEMP 36.6; O2SAT 94
[2024-07-28] MEDS: Fluticasone Propionate Nasal 16 GM SPRAY 2 SPRAY NOSTRIL-B (08:19)
[2024-07-28] MEDS: timoloL maleate 0.5 % Oph Sol 5 ML DRBTL 1 DROP EYE-BOTH ×2 (08:19→20:05)
[2024-07-28] MEDS: OLANZapine 2.5 MG TABLET PO ×2 (08:20→19:30)
[2024-07-28] MEDS: oxyBUTYnin chloride ER 5 MG TAB.ER.24 15 MG PO (08:20)
[2024-07-28] MEDS: lisinopriL 5 MG TABLET PO (08:20)
[2024-07-28] MEDS: Divalproex Sodium Sprinkles 125 MG CAP.DR.SPR 250 MG PO ×2 (08:20→19:30)
[2024-07-28] MEDS: Cholecalciferol (Vitamin D3) 25 MCG TABLET 50 MCG PO (08:20)
[2024-07-28] MEDS: guaiFENesin DM 600/30 1 TAB TAB.ER.12H PO ×2 (08:20→19:30)
--- NOTE | 2024-07-28 16:46 | PM.EVENT ---
Event Note Date of Service: 07/28/24 Event Note: Patient was seen for reports of cough and wheezing. Faint crackles noted on exam left lung, no edema. Patient with a history of diastolic dysfunction. No history of lung disease. We will trial a dose of Lasix, has pepito on board. Labs in the a.m. we will re-evaluate. Time Spent With Patient Time: Total time managing care of this patient today ____ minutes.
--- NOTE | 2024-07-28 16:51 | P.PNPSI_ITS ---
Subjective Subjective Date of Service: 07/28/24 Reason For Visit: Combative Behaviors Subjective Notes: Conditional Voluntary Interim History: Pt ambulating with walker, increased cough and congestion, started on lasix by hospitalist. hx of HF. Pt ambulating with walker, asking if she can go home soon. No behavioral concerns. Medication Compliance: Yes Side effects from medications: No Review of Systems Review of Systems cough,congestion, followed by hospitalist service Yes Unobtainable due to mental status Mental Status Exam Mental Status Exam Narrative: Appearance: casually groomed in bed Behavior: calm Psychomotor: no agitation or retardation noted Speech: garbled, difficult to understand TP: concrete TC: no questions Mood:ok Affect:calm, congruent SI: none expressed HI: none expressed VH/AH: no overt signs Delusions: none noted Insight/judgment: impaired x 2 Memory/cog: alert, not oriented to place, month or year nor situation. severe impairment in memory and cognition. Diagnostics Vital Signs (24Hr): Vital Signs - 24 hr 07/27/24 18:23 07/27/24 19:25 07/28/24 07:55 Temperature 99.1 F 97.9 F Pulse Rate 68 93 75 Respiratory Rate 18 16 18 Blood Pressure 126/60 122/64 Pulse Oximetry 91 L 94 Oxygen Delivery Method Room Air Room Air BMI result Body Mass Index 22.3 Labs 07/29/24 07:29 07/29/24 07:29 Imaging Radiology Impressions: ITS Impressions Carotid Doppler Study 07/21/24 16:26 IMPRESSION: 1. RIGHT: Normal right internal carotid artery without significant atherosclerotic plaque or hemodynamically significant stenosis. 2. LEFT: Normal left internal carotid artery without significant atherosclerotic plaque or hemodynamically significant stenosis. Electronically signed by: Zach Adam MD 07/22/2024 09:13 AM EDT RP Chest X-Ray 07/23/24 12:15 IMPRESSION: No active pulmonary disease. Electronically signed by: Zach Adam MD 07/23/2024 12:58 PM EDT Medications Medications Current Medications Acetaminophen (Acetaminophen 325 Mg Tablet) 650 mg PO Q6H PRN PRN Reason: Headache/Pain, Scale 1-10 Last Admin: 07/26/24 20:35 Dose: 650 mg Al Hydroxide/Mg Hydroxide (Magnesium Hydrox/Alum Hydrox 30 Ml Oral.Susp) 30 ml PO Q6H PRN PRN Reason: Heartburn/Nausea Albuterol/Ipratropium (Albuterol/Iprat 2.5/0.5mg 3 Ml Ampul.Neb) 3 ml INHALE RQ4H WHILE AWAKE PRN PRN Reason: SOB/wheezing Last Admin: 07/27/24 18:22 Dose: 3 ml Atorvastatin Calcium (Atorvastatin Calcium 20 Mg Tablet) 20 mg PO BEDTIME [facility] Last Admin: 07/27/24 19:28 Dose: 20 mg Divalproex Sodium (Divalproex Sodium Sprinkles 125 Mg Cap.) 250 mg PO BID [facility] Last Admin: 07/28/24 08:20 Dose: 250 mg Fluticasone Propionate (Fluticasone Propionate Nasal 16 Gm [place]) 2 spray NOSTRIL-B DAILY [facility] Last Admin: 07/28/24 08:19 Dose: 2 spray Guaifenesin/Dextromethorphan (Guaifenesin Dm 600/30 1 Tab Tab.Er.12h) 1 tab PO BID [facility] Last Admin: 07/28/24 08:20 Dose: 1 tab Levothyroxine Sodium (Levothyroxine Sodium 75 Mcg Tablet) 75 mcg PO DAILY@0600 [facility] Last Admin: 07/28/24 05:16 Dose: 75 mcg Lisinopril (Lisinopril 5 Mg Tablet) 5 mg PO DAILY [facility]; Protocol Last Admin: 07/28/24 08:20 Dose: 5 mg Loperamide HCl (Loperamide Hcl 2 Mg Capsule) 2 mg PO Q4H PRN PRN Reason: loose stools Lorazepam (Lorazepam 0.5 Mg Tablet) 0.5 mg PO Q8H PRN PRN Reason: Anxiety Magnesium Hydroxide (Milk Of Magnesia 30 Ml Oral.Susp) 30 ml PO DAILY PRN PRN Reason: Constipation Last Admin: 07/25/24 09:11 Dose: 30 ml Olanzapine (Olanzapine 2.5 Mg Tablet) 2.5 mg PO BID [facility] Last Admin: 07/28/24 08:20 Dose: 2.5 mg Omeprazole (Omeprazole 20 Mg Capsule.) 20 mg PO DAILY@0630 [facility] Last Admin: 07/28/24 05:38 Dose: 20 mg Oxybutynin Chloride (Oxybutynin Chloride Er 5 Mg Tab.Er.24) 15 mg PO DAILY [facility] Last Admin: 07/28/24 08:20 Dose: 15 mg Timolol Maleate (Timolol Maleate 0.5 % Oph Peg 5 Ml Drbtl) 1 drop EYE-BOTH BID [facility] Last Admin: 07/28/24 08:19 Dose: 1 drop Trazodone HCl (Trazodone Hcl 50 Mg Tablet) 50 mg PO BEDTIME MRX1 PRN PRN Reason: Insomnia Last Admin: 07/26/24 20:35 Dose: 50 mg Vitamin D (Cholecalciferol (Vitamin D3) 25 Mcg Tablet) 50 mcg PO DAILY [facility] Last Admin: 07/28/24 08:20 Dose: 50 mcg Allergies Allergies Allergy/AdvReac Type Severity Reaction Status Date / Time sulfamethoxazole Allergy Unknown Verified 03/03/24 14:32 [From Sulfamethoxazole-Trimethoprim] trimethoprim Allergy Unknown Verified 03/03/24 14:32 [From Sulfamethoxazole-Trimethoprim] Assessment & Plan Assessment & Plan (1) 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 Mascorro is an 79 year-old woman with hx of dementia, advanced stages. She was initially admitted to for management of combative and impulsive behaviors secondary to dementia. She was stabilized on combination of depakote, olanzapine. She had episode of brief change in mental status. No VS abnormalities. She was transferred to medical floor for work up of TIA vs stroke, which was negative. Pt transferred back to continue medication management and stabilization and placement. PLAN 06/30 continue tx. 07/01 continue tx. awaiting placement, [facility] 07/[facility] continue tx. 07/03 continue tx. 07/06 continue tx. awaiting placement. 07/07 continue tx. 07/08 continue tx. 07/09: no change. continue current mgmt. 07/10: poor sleep overnight of 2 hours. constipation, small BM overnight. continue current mgmt for now. 07/11: Patient remained stable; no change in presentation; continue treatment plan 07/12; no change in presentation; continue treatment but 07/13 continue tx. UA ordered for increase urinary frequency 07/14 continue tx. 07/15 continue tx. 07/16 continue tx. 07/17 seen by hospitalist, depakote was increased 250mg po TID, ammonia checked today wnl. recommend to recheck ammonia with hihger dose and monitor hyponatremia. 07/18: continue current management and treatment plan.Neurology consult pending. 07/19: continue current management and treatment plan. 07/20: continue current management and treatment plan. 07/21 lowered depakote to 250mg po BID. hyponatremia on 07/19, 129, improved today 134. 07/22 continue tx. 07/23 continue tx. 07/24 continue tx. 07/25 continue tx. 07/26 continue tx. 07/27 continue tx. 07/28 continue tx. Reason for continued inpatient stay Substantial Risk for: inability to function Time Spent With Patient Time: Total time managing care of this patient today ____ minutes.
[2024-07-28 17:27] VITALS: BP 132/86
[2024-07-28] MEDS: Furosemide 20 MG TABLET PO (17:27)
[2024-07-28 19:28] VITALS: BP 117/60; PULSE 93; RESP 18; TEMP 36.6; O2SAT 90
[2024-07-28] MEDS: Atorvastatin Calcium 20 MG TABLET PO (19:30)
[2024-07-29] MEDS: Levothyroxine Sodium 75 MCG TABLET PO (05:06)
[2024-07-29] MEDS: Omeprazole 20 MG CAPSULE.DR PO (05:35)
[2024-07-29 07:38] LABS: MANUAL DIFF FLAG NO
[2024-07-29 07:44] LABS: Basophils Percent Auto 0.2 % (0-2); Eosinophils Absolute Auto 0.2 X10*3/uL (0.0-0.4); Eosinophils Percent Auto 1.9 % (0-4); Hematocrit 32.3 % (37.0-47.0); Hemoglobin 10.9 g/dl (12.0-16.0); Imm Gran Abs Auto 0.04 X10*3/uL (0.00-0.03); Imm Gran Pct Auto 0.4 % (0.0-0.4); Lymphocytes Absolute Auto 4.1 X10*3/uL (1.2-4.9); Lymphocytes Percent Auto 40.4 % (20-40); Mean Corpuscular HGB Conc 33.7 g/dl (31.0-35.0); Mean Corpuscular Hemoglobin 29.5 pg (27.0-33.0); Mean Corpuscular Volume 87.3 fL (80.0-98.0); Mean Platelet Volume 10.7 fL (9.4-12.3); Monocytes Absolute Auto 1.1 X10*3/uL (0.1-1.2); Monocytes Percent Auto 11.1 % (2-11); Neutrophils Absolute Auto 4.6 x10*3/uL (2.0-8.3); Platelet Count 207 X10*3/uL (160-400); Red Cell Distribution Width 14.4 % (11.0-16.0)
[2024-07-29 07:55] VITALS: BP 133/68; PULSE 84; RESP 18; TEMP 36.6; O2SAT 97
[2024-07-29 08:01] LABS: Alanine Aminotransferase 15 U/L (0-31); Albumin Level 3.4 g/dL (3.5-5.0); Anion Gap 15 (12-20); Aspartate Amino Transferase 26 U/L (5-31); Bilirubin Total 0.7 mg/dL (0.0-1.0); Blood Urea Nitrogen 27 mg/dL (9-16); Calcium 8.6 mg/dL (8.4-10.2); Carbon Dioxide 24 mmol/L (22-29); Chloride 107 mmol/L (96-108); Creatinine Clr Calc Pharmacy 31.3; Estimated Glomerular Filt Rate 49; Glucose Random 88 mg/dL (60-115); Potassium 4.4 mmol/L (3.3-5.1); Sodium 142 mmol/L (135-145); Total Protein 6.3 g/dL (6.5-8.0)
[2024-07-29] MEDS: Cholecalciferol (Vitamin D3) 25 MCG TABLET 50 MCG PO (08:23)
[2024-07-29] MEDS: Divalproex Sodium Sprinkles 125 MG CAP.DR.SPR 250 MG PO ×2 (08:23→20:41)
[2024-07-29] MEDS: guaiFENesin DM 600/30 1 TAB TAB.ER.12H PO ×2 (08:24→20:41)
[2024-07-29] MEDS: oxyBUTYnin chloride ER 5 MG TAB.ER.24 15 MG PO (08:24)
[2024-07-29] MEDS: OLANZapine 2.5 MG TABLET PO ×2 (08:24→20:41)
[2024-07-29] MEDS: lisinopriL 5 MG TABLET PO (08:24)
[2024-07-29] MEDS: Fluticasone Propionate Nasal 16 GM SPRAY 2 SPRAY NOSTRIL-B (08:32)
[2024-07-29] MEDS: timoloL maleate 0.5 % Oph Sol 5 ML DRBTL 1 DROP EYE-BOTH ×2 (08:33→23:55)
--- NOTE | 2024-07-29 12:46 | P.PNPSI_ITS ---
Subjective Subjective Date of Service: 07/29/24 Reason For Visit: Combative Behaviors Interim History: Pt seen, reviewed with team who report ongoing cough- using lasix, updrafts, followed by hospitalist service for cough/congestion. Team reports no behavioral or mood issues of concern today. Medication Compliance: Yes Side effects from medications: No Review of Systems Acute medical concerns: Yes Medical Review of Systems: unchanged Review of Systems Review of Systems cough,congestion, followed by hospitalist service Mental Status Exam Mental Status Exam Patient Appearance: Appropriate Patient Orientation: Person Level of Consciousness: Awake and Alert Patient Behavior: Cooperative Mood Description: Calm Affect Description: Calm Patient Cognition Impaired: Yes Ability to Follow Directions: Fair Speech Pattern: Impoverished Judgement: Poor Diagnostics Vital Signs (24Hr): Vital Signs - 24 hr 07/28/24 17:27 07/28/24 19:28 07/29/24 07:55 Temperature 98 F 97.9 F Pulse Rate 93 84 Respiratory Rate 18 18 Blood Pressure 132/86 117/60 133/68 Pulse Oximetry 90 L 97 Oxygen Delivery Method Room Air Room Air BMI result Body Mass Index 22.3 Labs 07/29/24 07:29 07/29/24 07:29 Labs: Laboratory Results - last 48 hr 07/29/24 07:29 WBC 10.0 RBC 3.70 L Hgb 10.9 L Hct 32.3 L MCV 87.3 MCH 29.5 MCHC 33.7 RDW 14.4 Plt Count 207 D MPV 10.7 Immature Gran % (Auto) 0.4 Neut % (Auto) 46.0 Lymph % (Auto) 40.4 H [place] % (Auto) 11.1 H Eos % (Auto) 1.9 Baso % (Auto) 0.2 Lymph # (Auto) 4.1 [place] # (Auto) 1.1 Eos # (Auto) 0.2 Baso # (Auto) 0.0 Abs Immat Gran (auto) 0.04 H Absolute Neuts (auto) 4.6 Absolute Nucleated RBC 0.000 Nucleated RBC % (auto) 0.0 Sodium 142 Potassium 4.4 Chloride 107 Carbon Dioxide 24 Anion Gap 15 BUN 27 H Creatinine 1.08 Estim Creat Clear Calc 31.3 Estimated GFR 49 Random Glucose 88 Calcium 8.6 Total Bilirubin 0.7 AST 26 ALT 15 Total Protein 6.3 L Albumin 3.4 L Imaging Radiology Impressions: ITS Impressions Carotid Doppler Study 07/21/24 16:26 IMPRESSION: 1. RIGHT: Normal right internal carotid artery without significant atherosclerotic plaque or hemodynamically significant stenosis. 2. LEFT: Normal left internal carotid artery without significant atherosclerotic plaque or hemodynamically significant stenosis. Electronically signed by: Zach Adam MD 07/22/2024 09:13 AM EDT RP Chest X-Ray 07/23/24 12:15 IMPRESSION: No active pulmonary disease. Electronically signed by: Zach Adam MD 07/23/2024 12:58 PM EDT Medications Medications Current Medications Acetaminophen (Acetaminophen 325 Mg Tablet) 650 mg PO Q6H PRN PRN Reason: Headache/Pain, Scale 1-10 Last Admin: 07/26/24 20:35 Dose: 650 mg Al Hydroxide/Mg Hydroxide (Magnesium Hydrox/Alum Hydrox 30 Ml Oral.Susp) 30 ml PO Q6H PRN PRN Reason: Heartburn/Nausea Albuterol/Ipratropium (Albuterol/Iprat 2.5/0.5mg 3 Ml Ampul.Neb) 3 ml INHALE RQ4H WHILE AWAKE PRN PRN Reason: SOB/wheezing Last Admin: 07/27/24 18:22 Dose: 3 ml Atorvastatin Calcium (Atorvastatin Calcium 20 Mg Tablet) 20 mg PO BEDTIME [facility] Last Admin: 07/28/24 19:30 Dose: 20 mg Divalproex Sodium (Divalproex Sodium Sprinkles 125 Mg ) 250 mg PO BID [facility] Last Admin: 07/29/24 08:23 Dose: 250 mg Fluticasone Propionate (Fluticasone Propionate Nasal 16 Gm [place]) 2 spray NOSTRIL-B DAILY [facility] Last Admin: 07/29/24 08:32 Dose: 2 spray Guaifenesin/Dextromethorphan (Guaifenesin Dm 600/30 1 Tab Tab.Er.12h) 1 tab PO BID [facility] Last Admin: 07/29/24 08:24 Dose: 1 tab Levothyroxine Sodium (Levothyroxine Sodium 75 Mcg Tablet) 75 mcg PO DAILY@0600 [facility] Last Admin: 07/29/24 05:06 Dose: 75 mcg Lisinopril (Lisinopril 5 Mg Tablet) 5 mg PO DAILY [facility]; Protocol Last Admin: 07/29/24 08:24 Dose: 5 mg Loperamide HCl (Loperamide Hcl 2 Mg Capsule) 2 mg PO Q4H PRN PRN Reason: loose stools Lorazepam (Lorazepam 0.5 Mg Tablet) 0.5 mg PO Q8H PRN PRN Reason: Anxiety Magnesium Hydroxide (Milk Of Magnesia 30 Ml Oral.Susp) 30 ml PO DAILY PRN PRN Reason: Constipation Last Admin: 07/25/24 09:11 Dose: 30 ml Olanzapine (Olanzapine 2.5 Mg Tablet) 2.5 mg PO BID [facility] Last Admin: 07/29/24 08:24 Dose: 2.5 mg Omeprazole (Omeprazole 20 Mg Capsule.Dr) 20 mg PO DAILY@0630 [facility] Last Admin: 07/29/24 05:35 Dose: 20 mg Oxybutynin Chloride (Oxybutynin Chloride Er 5 Mg Tab.Er.24) 15 mg PO DAILY [facility] Last Admin: 07/29/24 08:24 Dose: 15 mg Timolol Maleate (Timolol Maleate 0.5 % Oph Peg 5 Ml Drbtl) 1 drop EYE-BOTH BID [facility] Last Admin: 07/29/24 08:33 Dose: 1 drop Trazodone HCl (Trazodone Hcl 50 Mg Tablet) 50 mg PO BEDTIME MRX1 PRN PRN Reason: Insomnia Last Admin: 07/26/24 20:35 Dose: 50 mg Vitamin D (Cholecalciferol (Vitamin D3) 25 Mcg Tablet) 50 mcg PO DAILY [facility] Last Admin: 07/29/24 08:23 Dose: 50 mcg Allergies Allergies Allergy/AdvReac Type Severity Reaction Status Date / Time sulfamethoxazole Allergy Unknown Verified 03/03/24 14:32 [From Sulfamethoxazole-Trimethoprim] trimethoprim Allergy Unknown Verified 03/03/24 14:32 [From Sulfamethoxazole-Trimethoprim] Assessment & Plan Assessment & Plan (1) 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 Mascorro is an 79 year-old woman with hx of dementia, advanced stages. She was initially admitted to for management of combative and impulsive behaviors secondary to dementia. She was stabilized on combination of depakote, olanzapine. She had episode of brief change in mental status. No VS abnormalities. She was transferred to medical floor for work up of TIA vs stroke, which was negative. Pt transferred back to continue medication management and stabilization and placement. PLAN 06/30 continue tx. 07/01 continue tx. awaiting placement, financial paperwork not completed to submit application for [employer]. 07/02 continue tx. 07/03 continue tx. 07/06 continue tx. awaiting placement. 07/07 continue tx. 07/08 continue tx. 07/09: no change. continue current mgmt. 07/10: poor sleep overnight of 2 hours. constipation, small BM overnight. continue current mgmt for now. 07/11: Patient remained stable; no change in presentation; continue treatment plan 07/12; no change in presentation; continue treatment but 07/13 continue tx. UA ordered for increase urinary frequency 07/14 continue tx. 07/15 continue tx. 07/16 continue tx. 07/17 seen by hospitalist, depakote was increased 250mg po TID, ammonia checked today wnl. recommend to recheck ammonia with hihger dose and monitor hyponatremia. 07/18: continue current management and treatment plan.Neurology consult pending. 07/19: continue current management and treatment plan. 07/20: continue current management and treatment plan. 07/21 lowered depakote to 250mg po BID. hyponatremia on 07/19, 129, improved today 134. 07/22 continue tx. 07/23 continue tx. 07/24 continue tx. 07/25 continue tx. 07/26 continue tx. 07/27 continue tx. 07/29 RBC,HGB,HCT, PLT improving values BUN, Albumin, T.Prot declined Continue to monitor, continue tx. Medical follow up. Reason for continued inpatient stay Substantial Risk for: rapid decompensation Time Spent With Patient Time: Total time managing care of this patient today ____ minutes.
[2024-07-29 12:55] LABS: Alkaline Phosphatase 98 U/L (39-117)
--- NOTE | 2024-07-29 14:43 | P.PNIM_ITS ---
Subjective Subjective Date of Service: 07/29/24 Interval History: Patient is seen for increased shortness of breath and wheeze. She was given a dose of Lasix yesterday with good response. She is less short of breath today lungs are clear no wheezing noted. Per [employer] she has been voiding frequently in the toilet we will bladder scan her to ensure that she is not retaining urine. She denies any shortness of breath or chest pain today. Denies any pain. She appears to be in no apparent distress. No weight this am Review of Systems Limited due to patient's dementia, she denies any shortness of breath or chest pain. Physical Exam 2 Vital Signs: Vital Signs: Last Vital Signs Temp 97.9 F 07/29/24 07:55 Pulse 84 07/29/24 07:55 Resp 18 07/29/24 07:55 BP 133/68 07/29/24 07:55 Pulse Ox 97 07/29/24 07:55 O2 Del Method Room Air 07/29/24 07:55 BMI result Body Mass Index 22.3 CONST: Alert and confused, in NAD. Well nourished HEENT: Normocephalic, atraumatic, MMM RESP: Lungs clear, no wheeze appreciated, RRR even and regular HEART:,RRR, S1, S2. no edema GI:Abdomen Soft NT, ND. + BS times four :Deferred SKIN: Warm dry and intact, no visible lesions or rashes NEURO:CN II-XII Intact bilaterally, Sensation intact. Speech garbled on clear at times at baseline PSYCH: Normal affect, alert Objective Data Active Medications Acetaminophen (Acetaminophen 325 Mg Tablet) 650 mg PO Q6H PRN PRN Reason: Headache/Pain, Scale 1-10 Last Admin: 07/26/24 20:35 Dose: 650 mg Documented By: DAFNE Al Hydroxide/Mg Hydroxide (Magnesium Hydrox/Alum Hydrox 30 Ml Oral.Susp) 30 ml PO Q6H PRN PRN Reason: Heartburn/Nausea Albuterol/Ipratropium (Albuterol/Iprat 2.5/0.5mg 3 Ml Ampul.Neb) 3 ml INHALE RQ4H WHILE AWAKE PRN PRN Reason: SOB/wheezing Last Admin: 07/27/24 18:22 Dose: 3 ml Documented By: SEMAJ Atorvastatin Calcium (Atorvastatin Calcium 20 Mg Tablet) 20 mg PO BEDTIME [facility] Last Admin: 07/28/24 19:30 Dose: 20 mg Documented By: MARCIA Divalproex Sodium (Divalproex Sodium Sprinkles 125 Mg ) 250 mg PO BID [facility] Last Admin: 07/29/24 08:23 Dose: 250 mg Documented By: NEIL Fluticasone Propionate (Fluticasone Propionate Nasal 16 Gm [place]) 2 spray NOSTRIL-B DAILY [facility] Last Admin: 07/29/24 08:32 Dose: 2 spray Documented By: NEIL Guaifenesin/Dextromethorphan (Guaifenesin Dm 600/30 1 Tab Tab.Er.12h) 1 tab PO BID [facility] Last Admin: 07/29/24 08:24 Dose: 1 tab Documented By: NEIL Levothyroxine Sodium (Levothyroxine Sodium 75 Mcg Tablet) 75 mcg PO DAILY@0600 [facility] Last Admin: 07/29/24 05:06 Dose: 75 mcg Documented By: MARCIA Lisinopril (Lisinopril 5 Mg Tablet) 5 mg PO DAILY [facility]; Protocol Last Admin: 07/29/24 08:24 Dose: 5 mg Documented By: NEIL Loperamide HCl (Loperamide Hcl 2 Mg Capsule) 2 mg PO Q4H PRN PRN Reason: loose stools Lorazepam (Lorazepam 0.5 Mg Tablet) 0.5 mg PO Q8H PRN PRN Reason: Anxiety Magnesium Hydroxide (Milk Of Magnesia 30 Ml Oral.Susp) 30 ml PO DAILY PRN PRN Reason: Constipation Last Admin: 07/25/24 09:11 Dose: 30 ml Documented By: JARAD Olanzapine (Olanzapine 2.5 Mg Tablet) 2.5 mg PO BID [facility] Last Admin: 07/29/24 08:24 Dose: 2.5 mg Documented By: NEIL Omeprazole (Omeprazole 20 Mg Capsule.) 20 mg PO DAILY@0630 [facility] Last Admin: 07/29/24 05:35 Dose: 20 mg Documented By: MARCIA Oxybutynin Chloride (Oxybutynin Chloride Er 5 Mg Tab.Er.24) 15 mg PO DAILY [facility] Last Admin: 07/29/24 08:24 Dose: 15 mg Documented By: NEIL Timolol Maleate (Timolol Maleate 0.5 % Oph Peg 5 Ml Drbtl) 1 drop EYE-BOTH BID [facility] Last Admin: 07/29/24 08:33 Dose: 1 drop Documented By: NEIL Trazodone HCl (Trazodone Hcl 50 Mg Tablet) 50 mg PO BEDTIME MRX1 PRN PRN Reason: Insomnia Last Admin: 07/26/24 20:35 Dose: 50 mg Documented By: DAFNE Vitamin D (Cholecalciferol (Vitamin D3) 25 Mcg Tablet) 50 mcg PO DAILY [facility] Last Admin: 07/29/24 08:23 Dose: 50 mcg Documented By: NEIL Labs 07/29/24 07:29 07/29/24 07:29 Labs: Laboratory Results - last 24 hr 07/29/24 07:29 MCV 87.3 MCH 29.5 MCHC 33.7 RDW 14.4 Plt Count 207 D MPV 10.7 Immature Gran % (Auto) 0.4 Neut % (Auto) 46.0 Lymph % (Auto) 40.4 H [place] % (Auto) 11.1 H Eos % (Auto) 1.9 Baso % (Auto) 0.2 Lymph # (Auto) 4.1 [place] # (Auto) 1.1 Eos # (Auto) 0.2 Baso # (Auto) 0.0 Abs Immat Gran (auto) 0.04 H Absolute Neuts (auto) 4.6 Absolute Nucleated RBC 0.000 Nucleated RBC % (auto) 0.0 Anion Gap 15 Estim Creat Clear Calc 31.3 Estimated GFR 49 Random Glucose 88 Calcium 8.6 Total Bilirubin 0.7 AST 26 ALT 15 Alkaline Phosphatase 98 Total Protein 6.3 L Albumin 3.4 L Assessment and Plan (1) Altered mental status: Status: Deleted Plan HFrEF: 1500 mls fluid restriction. Pt is not currently on any diuretics with known HF. She received 1 dose of Lasix yesterday with good response, wheezing resolved. We will extend Lasix x2 more days. Check labs on Saturday. Daily weights- 2 pounds in one day or 5 pounds in one week, can give Lasix 20 mg as needed for weight gain of 2 lb in 1 day or 5 lb in 1 week Altered Mental status/garbled speech No documented history of seizure disorder. Has been seen by Neurology in the past. Carotid ultrasound negative for stenosis Was started on Depakote for mood disorder. Continue Depakote 250 b.i.d. Unable to tolerate MRI EEG without seizure activity Head and neck CTA with no large vessel occlusion or hemodynamically significant stenosis identified 05/2024 Dementia with behavioral and impulsive behaviors Plan per Psychiatry Hyponatremia 1500 cc fluid restriction. Sodium WNL Risk for aspiration: Aspiration precautions Speech therapy eval as needed DUO nebs prn. Will order Duoneb times one today for wheeze. CTA of head and neck in May revealed Possible esophageal wall thickening suggesting esophageal dysmotility with esophageal narrowing with esophagitis. Can pursue barium esophagram if continues with dysphagia HTN: Continue Lisinopril 5 mgs daily BP today 146/72 Stable. Low sodium diet recommended. Quality Stroke Does the patient have a stroke diagnosis?: No VTE Prior VTE?: No VTE Risk Level:: Medical - low VTE Device Contraindication: Treatment Not Indicated VTE Drug Contraindication: Treatment Not Indicated
[2024-07-29 15:04] VITALS: BP 132/79
[2024-07-29] MEDS: Furosemide 20 MG TABLET PO (15:04)
[2024-07-29 16:26] VITALS: PULSE 105; RESP 18; O2SAT 92
[2024-07-29] MEDS: Albuterol/Iprat 2.5/0.5MG 3 ML AMPUL.NEB INHALE (16:26)
--- NOTE | 2024-07-29 16:27 | PC.RT ---
Received a call from [facility] for a PRN tx on Ms. Mascorro. RN stated the pt and herself were both requesting the tx b/c the pt was wheezy. Upon lung auscultation, l/s were clear. Pt is confused and was asking when she was leaving. She was able to follow directions and tolerated the tx well. RN and RT discussed that, if they can not get ahold of us in a timely manner and the patient is in dire distress, we are okay with them administering nebulizer treatments.
[2024-07-29 20:00] VITALS: BP 126/66; PULSE 80; RESP 16; TEMP 36.9; O2SAT 92
[2024-07-29] MEDS: Atorvastatin Calcium 20 MG TABLET PO (20:41)
[2024-07-30] MEDS: Omeprazole 20 MG CAPSULE.DR PO (06:12)
[2024-07-30] MEDS: Levothyroxine Sodium 75 MCG TABLET PO (06:12)
[2024-07-30 08:00] VITALS: BP 108/60; PULSE 74; RESP 18; TEMP 36.6; O2SAT 95
[2024-07-30] MEDS: lisinopriL 5 MG TABLET PO (09:00)
[2024-07-30] MEDS: OLANZapine 2.5 MG TABLET PO ×2 (09:00→20:15)
[2024-07-30] MEDS: Cholecalciferol (Vitamin D3) 25 MCG TABLET 50 MCG PO (09:00)
[2024-07-30] MEDS: oxyBUTYnin chloride ER 5 MG TAB.ER.24 15 MG PO (09:01)
[2024-07-30] MEDS: Furosemide 20 MG TABLET PO (09:01)
[2024-07-30] MEDS: Fluticasone Propionate Nasal 16 GM SPRAY 2 SPRAY NOSTRIL-B (09:01)
[2024-07-30] MEDS: timoloL maleate 0.5 % Oph Sol 5 ML DRBTL 1 DROP EYE-BOTH ×2 (09:01→20:17)
[2024-07-30] MEDS: Divalproex Sodium Sprinkles 125 MG CAP.DR.SPR 250 MG PO ×2 (09:01→20:15)
[2024-07-30] MEDS: guaiFENesin DM 600/30 1 TAB TAB.ER.12H PO ×2 (09:02→20:15)
--- NOTE | 2024-07-30 12:22 | HO.PSYCHPN ---
Subjective Subjective Date of Service: 07/30/24 Reason For Visit: Combative Behaviors Subjective Notes: Conditional Voluntary Interim History: Pt sleeping and eating well. No SI/HI. No VH/AH. not oriented to place, month or situation, asking to go home. VS stable. No behavioral concerns. Review of Systems Review of Systems cough,congestion, followed by hospitalist service Yes Unobtainable due to mental status Mental Status Exam Mental Status Exam Narrative: Appearance: casually groomed in bed Behavior: calm Psychomotor: no agitation or retardation noted Speech: garbled, difficult to understand TP: concrete TC: no questions Mood:ok Affect:calm, congruent SI: none expressed HI: none expressed VH/AH: no overt signs Delusions: none noted Insight/judgment: impaired x 2 Memory/cog: alert, not oriented to place, month or year nor situation. severe impairment in memory and cognition. Diagnostics Vital Signs (24Hr): Vital Signs - 24 hr 07/29/24 15:04 07/29/24 16:26 07/29/24 20:00 Temperature 98.4 F Pulse Rate 105 H 80 Respiratory Rate 18 16 Blood Pressure 132/79 126/66 Pulse Oximetry 92 Oxygen Delivery Method Room Air 07/30/24 08:00 Temperature 97.9 F Pulse Rate 74 Respiratory Rate 18 Blood Pressure 108/60 Pulse Oximetry 95 Oxygen Delivery Method Room Air BMI result Body Mass Index 22.3 Labs 07/29/24 07:29 07/31/24 07:31 Labs: Laboratory Results - last 48 hr 07/29/24 07:29 WBC 10.0 RBC 3.70 L Hgb 10.9 L Hct 32.3 L MCV 87.3 MCH 29.5 MCHC 33.7 RDW 14.4 Plt Count 207 D MPV 10.7 Immature Gran % (Auto) 0.4 Neut % (Auto) 46.0 Lymph % (Auto) 40.4 H [place] % (Auto) 11.1 H Eos % (Auto) 1.9 Baso % (Auto) 0.2 Lymph # (Auto) 4.1 [place] # (Auto) 1.1 Eos # (Auto) 0.2 Baso # (Auto) 0.0 Abs Immat Gran (auto) 0.04 H Absolute Neuts (auto) 4.6 Absolute Nucleated RBC 0.000 Nucleated RBC % (auto) 0.0 Sodium 142 Potassium 4.4 Chloride 107 Carbon Dioxide 24 Anion Gap 15 BUN 27 H Creatinine 1.08 Estim Creat Clear Calc 31.3 Estimated GFR 49 Random Glucose 88 Calcium 8.6 Total Bilirubin 0.7 AST 26 ALT 15 Alkaline Phosphatase 98 Total Protein 6.3 L Albumin 3.4 L Imaging Radiology Impressions: ITS Impressions Carotid Doppler Study 07/21/24 16:26 IMPRESSION: 1. RIGHT: Normal right internal carotid artery without significant atherosclerotic plaque or hemodynamically significant stenosis. 2. LEFT: Normal left internal carotid artery without significant atherosclerotic plaque or hemodynamically significant stenosis. Electronically signed by: Zach Adam MD 07/22/2024 09:13 AM EDT RP Chest X-Ray 07/23/24 12:15 IMPRESSION: No active pulmonary disease. Electronically signed by: Zach Adam MD 07/23/2024 12:58 PM EDT RP Medications Medications Current Medications Acetaminophen (Acetaminophen 325 Mg Tablet) 650 mg PO Q6H PRN PRN Reason: Headache/Pain, Scale 1-10 Last Admin: 07/26/24 20:35 Dose: 650 mg Al Hydroxide/Mg Hydroxide (Magnesium Hydrox/Alum Hydrox 30 Ml Oral.Susp) 30 ml PO Q6H PRN PRN Reason: Heartburn/Nausea Albuterol/Ipratropium (Albuterol/Iprat 2.5/0.5mg 3 Ml Ampul.Neb) 3 ml INHALE RQ4H WHILE AWAKE PRN PRN Reason: SOB/wheezing Last Admin: 07/29/24 16:26 Dose: 3 ml Atorvastatin Calcium (Atorvastatin Calcium 20 Mg Tablet) 20 mg PO BEDTIME [facility] Last Admin: 07/29/24 20:41 Dose: 20 mg Divalproex Sodium (Divalproex Sodium Sprinkles 125 Mg ) 250 mg PO BID [facility] Last Admin: 07/30/24 09:01 Dose: 250 mg Fluticasone Propionate (Fluticasone Propionate Nasal 16 Gm [place]) 2 spray NOSTRIL-B DAILY [facility] Last Admin: 07/30/24 09:01 Dose: 2 spray Furosemide (Furosemide 20 Mg Tablet) 20 mg PO DAILY [facility]; Protocol Stop: 07/31/24 14:49 Last Admin: 07/30/24 09:01 Dose: 20 mg Guaifenesin/Dextromethorphan (Guaifenesin Dm 600/30 1 Tab Tab.Er.12h) 1 tab PO BID [facility] Last Admin: 07/30/24 09:02 Dose: 1 tab Levothyroxine Sodium (Levothyroxine Sodium 75 Mcg Tablet) 75 mcg PO DAILY@0600 [facility] Last Admin: 07/30/24 06:12 Dose: 75 mcg Lisinopril (Lisinopril 5 Mg Tablet) 5 mg PO DAILY [facility]; Protocol Last Admin: 07/30/24 09:00 Dose: 5 mg Loperamide HCl (Loperamide Hcl 2 Mg Capsule) 2 mg PO Q4H PRN PRN Reason: loose stools Lorazepam (Lorazepam 0.5 Mg Tablet) 0.5 mg PO Q8H PRN PRN Reason: Anxiety Magnesium Hydroxide (Milk Of Magnesia 30 Ml Oral.Susp) 30 ml PO DAILY PRN PRN Reason: Constipation Last Admin: 07/25/24 09:11 Dose: 30 ml Olanzapine (Olanzapine 2.5 Mg Tablet) 2.5 mg PO BID [facility] Last Admin: 07/30/24 09:00 Dose: 2.5 mg Omeprazole (Omeprazole 20 Mg Capsule.Dr) 20 mg PO DAILY@0630 [facility] Last Admin: 07/30/24 06:12 Dose: 20 mg Oxybutynin Chloride (Oxybutynin Chloride Er 5 Mg Tab.Er.24) 15 mg PO DAILY [facility] Last Admin: 07/30/24 09:01 Dose: 15 mg Timolol Maleate (Timolol Maleate 0.5 % Oph Peg 5 Ml Drbtl) 1 drop EYE-BOTH BID [facility] Last Admin: 07/30/24 09:01 Dose: 1 drop Trazodone HCl (Trazodone Hcl 50 Mg Tablet) 50 mg PO BEDTIME MRX1 PRN PRN Reason: Insomnia Last Admin: 07/26/24 20:35 Dose: 50 mg Vitamin D (Cholecalciferol (Vitamin D3) 25 Mcg Tablet) 50 mcg PO DAILY [facility] Last Admin: 07/30/24 09:00 Dose: 50 mcg Allergies Allergies Allergy/AdvReac Type Severity Reaction Status Date / Time sulfamethoxazole Allergy Unknown Verified 03/03/24 14:32 [From Sulfamethoxazole-Trimethoprim] trimethoprim Allergy Unknown Verified 03/03/24 14:32 [From Sulfamethoxazole-Trimethoprim] Assessment & Plan Assessment & Plan (1) 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 Mascorro is an 79 year-old woman with hx of dementia, advanced stages. She was initially admitted to [facility] for management of combative and impulsive behaviors secondary to dementia. She was stabilized on combination of depakote, olanzapine. She had episode of brief change in mental status. No VS abnormalities. She was transferred to medical floor for work up of TIA vs stroke, which was negative. Pt transferred back to continue medication management and stabilization and placement. PLAN 06/30 continue tx. 07/01 continue tx. awaiting placement, financial paperwork not completed to submit application for [employer]. 07/02 continue tx. 07/03 continue tx. 07/06 continue tx. awaiting placement. 07/07 continue tx. 07/08 continue tx. 07/09: no change. continue current mgmt. 07/10: poor sleep overnight of 2 hours. constipation, small BM overnight. continue current mgmt for now. 07/11: Patient remained stable; no change in presentation; continue treatment plan 07/12; no change in presentation; continue treatment but 07/13 continue tx. UA ordered for increase urinary frequency 07/14 continue tx. 07/15 continue tx. 07/16 continue tx. 07/17 seen by hospitalist, depakote was increased 250mg po TID, ammonia checked today wnl. recommend to recheck ammonia with hihger dose and monitor hyponatremia. 07/18: continue current management and treatment plan.Neurology consult pending. 07/19: continue current management and treatment plan. 07/20: continue current management and treatment plan. 07/21 lowered depakote to 250mg po BID. hyponatremia on 07/19, 129, improved today 134. 07/22 continue tx. 07/23 continue tx. 07/24 continue tx. 07/25 continue tx. 07/26 continue tx. / continue tx. / continue tx. / continue tx. 07/30 continue tx. Reason for continued inpatient stay Substantial Risk for: inability to function Time Spent With Patient Time: Total time managing care of this patient today ____ minutes.
[2024-07-30 13:57] VITALS: BMI 23.3
[2024-07-30 19:45] VITALS: BP 123/58; PULSE 74; TEMP 36.9; O2SAT 93
[2024-07-30] MEDS: Atorvastatin Calcium 20 MG TABLET PO (20:15)
[2024-07-30] MEDS: Acetaminophen 325 MG TABLET 650 MG PO (20:47)
[2024-07-30] MEDS: traZODone HCL 50 MG TABLET PO (21:08)
[2024-07-31] MEDS: Levothyroxine Sodium 75 MCG TABLET PO (05:51)
[2024-07-31] MEDS: Omeprazole 20 MG CAPSULE.DR PO (05:52)
[2024-07-31 06:00] VITALS: BMI 21.9
[2024-07-31 07:54] LABS: Anion Gap 11 (12-20); Blood Urea Nitrogen 26 mg/dL (9-16); Calcium 8.4 mg/dL (8.4-10.2); Carbon Dioxide 27 mmol/L (22-29); Chloride 101 mmol/L (96-108); Creatinine Clr Calc Pharmacy 35.6; Estimated Glomerular Filt Rate 57; Glucose Random 80 mg/dL (60-115); Potassium 4.2 mmol/L (3.3-5.1); Sodium 135 mmol/L (135-145)
[2024-07-31 08:00] VITALS: BP 130/60; PULSE 63; TEMP 36.8; O2SAT 96
[2024-07-31] MEDS: Furosemide 20 MG TABLET PO (08:57)
[2024-07-31] MEDS: Divalproex Sodium Sprinkles 125 MG CAP.DR.SPR 250 MG PO ×2 (08:57→20:47)
[2024-07-31] MEDS: OLANZapine 2.5 MG TABLET PO ×2 (08:57→20:56)
[2024-07-31] MEDS: guaiFENesin DM 600/30 1 TAB TAB.ER.12H PO ×2 (08:57→20:47)
[2024-07-31] MEDS: Cholecalciferol (Vitamin D3) 25 MCG TABLET 50 MCG PO (08:57)
[2024-07-31] MEDS: lisinopriL 5 MG TABLET PO (08:58)
[2024-07-31] MEDS: timoloL maleate 0.5 % Oph Sol 5 ML DRBTL 1 DROP EYE-BOTH ×2 (08:58→20:47)
[2024-07-31] MEDS: oxyBUTYnin chloride ER 5 MG TAB.ER.24 15 MG PO (08:58)
[2024-07-31] MEDS: Fluticasone Propionate Nasal 16 GM SPRAY 2 SPRAY NOSTRIL-B (08:58)
--- NOTE | 2024-07-31 10:48 | HO.PSYCHPN ---
Subjective Subjective Date of Service: 07/31/24 Reason For Visit: Combative Behaviors Subjective Notes: Conditional Voluntary Interim History: Pt sleeping and eating well. No SI/HI. No VH/AH. not oriented to place, month or situation, asking to go home. VS stable. No behavioral concerns. less SOB, seen by hospitalist. awaiting placement. Review of Systems Review of Systems cough,congestion, followed by hospitalist service Yes Unobtainable due to mental status Mental Status Exam Mental Status Exam Narrative: Appearance: casually groomed in bed Behavior: calm Psychomotor: no agitation or retardation noted Speech: garbled, difficult to understand TP: concrete TC: no questions Mood:ok Affect:calm, congruent SI: none expressed HI: none expressed VH/AH: no overt signs Delusions: none noted Insight/judgment: impaired x 2 Memory/cog: alert, not oriented to place, month or year nor situation. severe impairment in memory and cognition. Diagnostics Vital Signs (24Hr): Vital Signs - 24 hr 07/30/24 19:45 07/31/24 08:00 Temperature 98.4 F 98.2 F Pulse Rate 74 63 Blood Pressure 123/58 L 130/60 Pulse Oximetry 93 96 Oxygen Delivery Method Room Air Room Air BMI result Body Mass Index 21.9 Labs 07/29/24 07:29 07/31/24 07:31 Labs: Laboratory Results - last 48 hr 07/29/24 07/31/24 07:29 07:31 Sodium 135 Potassium 4.2 Chloride 101 Carbon Dioxide 27 Anion Gap 11 L BUN 26 H Creatinine 0.95 Estim Creat Clear Calc 35.6 Estimated GFR 57 Random Glucose 80 Calcium 8.4 Alkaline Phosphatase 98 Imaging Radiology Impressions: ITS Impressions Carotid Doppler Study 07/21/24 16:26 IMPRESSION: 1. RIGHT: Normal right internal carotid artery without significant atherosclerotic plaque or hemodynamically significant stenosis. 2. LEFT: Normal left internal carotid artery without significant atherosclerotic plaque or hemodynamically significant stenosis. Electronically signed by: Zach Adam MD 07/22/2024 09:13 AM EDT RP Chest X-Ray 07/23/24 12:15 IMPRESSION: No active pulmonary disease. Electronically signed by: Zach Adam MD 07/23/2024 12:58 PM EDT RP Medications Medications Current Medications Acetaminophen (Acetaminophen 325 Mg Tablet) 650 mg PO Q6H PRN PRN Reason: Headache/Pain, Scale 1-10 Last Admin: 07/30/24 20:47 Dose: 650 mg Al Hydroxide/Mg Hydroxide (Magnesium Hydrox/Alum Hydrox 30 Ml Oral.Susp) 30 ml PO Q6H PRN PRN Reason: Heartburn/Nausea Albuterol/Ipratropium (Albuterol/Iprat 2.5/0.5mg 3 Ml Ampul.Neb) 3 ml INHALE RQ4H WHILE AWAKE PRN PRN Reason: SOB/wheezing Last Admin: 07/29/24 16:26 Dose: 3 ml Atorvastatin Calcium (Atorvastatin Calcium 20 Mg Tablet) 20 mg PO BEDTIME [facility] Last Admin: 07/30/24 20:15 Dose: 20 mg Divalproex Sodium (Divalproex Sodium Sprinkles 125 Mg Cap.) 250 mg PO BID [facility] Last Admin: 07/31/24 08:57 Dose: 250 mg Fluticasone Propionate (Fluticasone Propionate Nasal 16 Gm [place]) 2 spray NOSTRIL-B DAILY [facility] Last Admin: 07/31/24 08:58 Dose: 2 spray Furosemide (Furosemide 20 Mg Tablet) 20 mg PO DAILY [facility]; Protocol Stop: 07/31/24 14:49 Last Admin: 07/31/24 08:57 Dose: 20 mg Guaifenesin/Dextromethorphan (Guaifenesin Dm 600/30 1 Tab Tab.Er.12h) 1 tab PO BID [facility] Last Admin: 07/31/24 08:57 Dose: 1 tab Levothyroxine Sodium (Levothyroxine Sodium 75 Mcg Tablet) 75 mcg PO DAILY@0600 [facility] Last Admin: 07/31/24 05:51 Dose: 75 mcg Lisinopril (Lisinopril 5 Mg Tablet) 5 mg PO DAILY [facility]; Protocol Last Admin: 07/31/24 08:58 Dose: 5 mg Loperamide HCl (Loperamide Hcl 2 Mg Capsule) 2 mg PO Q4H PRN PRN Reason: loose stools Lorazepam (Lorazepam 0.5 Mg Tablet) 0.5 mg PO Q8H PRN PRN Reason: Anxiety Magnesium Hydroxide (Milk Of Magnesia 30 Ml Oral.Susp) 30 ml PO DAILY PRN PRN Reason: Constipation Last Admin: 07/25/24 09:11 Dose: 30 ml Olanzapine (Olanzapine 2.5 Mg Tablet) 2.5 mg PO BID [facility] Last Admin: 07/31/24 08:57 Dose: 2.5 mg Omeprazole (Omeprazole 20 Mg Capsule.Dr) 20 mg PO DAILY@0630 [facility] Last Admin: 07/31/24 05:52 Dose: 20 mg Oxybutynin Chloride (Oxybutynin Chloride Er 5 Mg Tab.Er.24) 15 mg PO DAILY [facility] Last Admin: 07/31/24 08:58 Dose: 15 mg Timolol Maleate (Timolol Maleate 0.5 % Oph Peg 5 Ml Drbtl) 1 drop EYE-BOTH BID [facility] Last Admin: 07/31/24 08:58 Dose: 1 drop Trazodone HCl (Trazodone Hcl 50 Mg Tablet) 50 mg PO BEDTIME MRX1 PRN PRN Reason: Insomnia Last Admin: 07/30/24 21:08 Dose: 50 mg Vitamin D (Cholecalciferol (Vitamin D3) 25 Mcg Tablet) 50 mcg PO DAILY [facility] Last Admin: 07/31/24 08:57 Dose: 50 mcg Allergies Allergies Allergy/AdvReac Type Severity Reaction Status Date / Time sulfamethoxazole Allergy Unknown Verified 03/03/24 14:32 [From Sulfamethoxazole-Trimethoprim] trimethoprim Allergy Unknown Verified 03/03/24 14:32 [From Sulfamethoxazole-Trimethoprim] Assessment & Plan Assessment & Plan (1) 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 Mascorro is an 79 year-old woman with hx of dementia, advanced stages. She was initially admitted to for management of combative and impulsive behaviors secondary to dementia. She was stabilized on combination of depakote, olanzapine. She had episode of brief change in mental status. No VS abnormalities. She was transferred to medical floor for work up of TIA vs stroke, which was negative. Pt transferred back to continue medication management and stabilization and placement. PLAN 06/30 continue tx. 07/01 continue tx. awaiting placement, financial paperwork not completed to submit application for [facility]. 07/02 continue tx. 07/03 continue tx. 07/06 continue tx. awaiting placement. 07/07 continue tx. 07/08 continue tx. 07/09: no change. continue current mgmt. 07/10: poor sleep overnight of 2 hours. constipation, small BM overnight. continue current mgmt for now. 07/11: Patient remained stable; no change in presentation; continue treatment plan 07/12; no change in presentation; continue treatment but 07/13 continue tx. UA ordered for increase urinary frequency 07/14 continue tx. 07/15 continue tx. 07/16 continue tx. 07/17 seen by hospitalist, depakote was increased 250mg po TID, ammonia checked today wnl. recommend to recheck ammonia with hihger dose and monitor hyponatremia. 07/18: continue current management and treatment plan.Neurology consult pending. 07/19: continue current management and treatment plan. 07/20: continue current management and treatment plan. 07/21 lowered depakote to 250mg po BID. hyponatremia on 07/19, 129, improved today 134. 07/22 continue tx. 07/23 continue tx. 07/24 continue tx. 07/25 continue tx. 07/26 continue tx. /2 continue tx. / continue tx. / continue tx. / continue tx. / continue tx. Reason for continued inpatient stay Substantial Risk for: inability to function Time Spent With Patient Time: Total time managing care of this patient today ____ minutes.
--- NOTE | 2024-07-31 11:22 | PM.EVENT ---
Event Note Date of Service: 07/31/24 Event Note: Follow up for Patient is seen for increased shortness of breath and wheeze. Her weight is slightly improved, she is receiving Lasix for 3 doses. Renal function is stable, no hypokalemia. She is less short of breath today lungs are clear no wheezing noted. Per nursing she was bladder scanned for 400 cc, we will discontinue her oxybutynin as this may further contribute to urinary retention. She denies any shortness of breath or chest pain today. Denies any pain. She appears to be in no apparent distress. Order p.r.n. Lasix dosing for weight gain of 2 lb overnight or 5 lb in 1 week. CONST: Alert and confused, in NAD. Well nourished HEENT: Normocephalic, atraumatic, MMM RESP: Lungs clear, RRR even and regular HEART:,RRR, S1, S2. no edema GI:Abdomen Soft NT, ND. + BS times four :Deferred SKIN: Warm dry and intact, no visible lesions or rashes NEURO:CN II-XII Intact bilaterally, Sensation intact. Speech garbled at times PSYCH: Quiet and cooperative. Time Spent With Patient Time: Total time managing care of this patient today ____ minutes.
[2024-07-31 20:00] VITALS: BP 99/66; PULSE 80; RESP 16; TEMP 36.7; O2SAT 92
[2024-07-31] MEDS: Atorvastatin Calcium 20 MG TABLET PO (20:47)
[2024-07-31] MEDS: Acetaminophen 325 MG TABLET 650 MG PO (20:56)
[2024-07-31] MEDS: traZODone HCL 50 MG TABLET PO (20:57)
[2024-08-01] MEDS: Omeprazole 20 MG CAPSULE.DR PO (05:45)
[2024-08-01] MEDS: Levothyroxine Sodium 75 MCG TABLET PO (05:45)
[2024-08-01 06:00] VITALS: BMI 22.2
[2024-08-01 08:00] VITALS: BP 130/62; PULSE 78; RESP 18; TEMP 36.8; O2SAT 95
[2024-08-01] MEDS: Divalproex Sodium Sprinkles 125 MG CAP.DR.SPR 250 MG PO ×2 (08:01→20:41)
[2024-08-01] MEDS: guaiFENesin DM 600/30 1 TAB TAB.ER.12H PO ×2 (08:01→20:41)
[2024-08-01] MEDS: Cholecalciferol (Vitamin D3) 25 MCG TABLET 50 MCG PO (08:01)
[2024-08-01] MEDS: lisinopriL 5 MG TABLET PO (08:01)
[2024-08-01] MEDS: OLANZapine 2.5 MG TABLET PO ×2 (08:01→20:41)
[2024-08-01] MEDS: timoloL maleate 0.5 % Oph Sol 5 ML DRBTL 1 DROP EYE-BOTH ×2 (08:04→20:41)
[2024-08-01] MEDS: Fluticasone Propionate Nasal 16 GM SPRAY 2 SPRAY NOSTRIL-B (08:04)
--- NOTE | 2024-08-01 10:06 | P.PNPSI_ITS ---
Subjective Subjective Date of Service: 08/01/24 Reason For Visit: Combative Behaviors Interim History: somnolent. denies any problems, no requests or complaints. per staff, urinating well. requesting to DC bladder scans as unnecessary. no change in presentation. taking meds. Mental Status Exam Mental Status Exam Narrative: Appearance: casually groomed in bed Behavior: calm Psychomotor: no agitation or retardation noted Speech: garbled, difficult to understand TP: concrete TC: no questions Mood:ok Affect:calm, congruent SI: none expressed HI: none expressed VH/AH: no overt signs Delusions: none noted Insight/judgment: impaired x 2 Memory/cog: alert, not oriented to place, month or year nor situation. severe impairment in memory and cognition. Diagnostics Vital Signs (24Hr): Vital Signs - 24 hr 07/31/24 20:00 08/01/24 08:00 Temperature 98.1 F 98.2 F Pulse Rate 80 78 Respiratory Rate 16 18 Blood Pressure 99/66 130/62 Pulse Oximetry 92 95 Oxygen Delivery Method Room Air Room Air BMI result Body Mass Index 22.2 Labs 07/29/24 07:29 07/31/24 07:31 Labs: Laboratory Results - last 48 hr 07/31/24 07:31 Sodium 135 Potassium 4.2 Chloride 101 Carbon Dioxide 27 Anion Gap 11 L BUN 26 H Creatinine 0.95 Estim Creat Clear Calc 35.6 Estimated GFR 57 Random Glucose 80 Calcium 8.4 Imaging Radiology Impressions: ITS Impressions Carotid Doppler Study 07/21/24 16:26 IMPRESSION: 1. RIGHT: Normal right internal carotid artery without significant atherosclerotic plaque or hemodynamically significant stenosis. 2. LEFT: Normal left internal carotid artery without significant atherosclerotic plaque or hemodynamically significant stenosis. Electronically signed by: Zach Adam MD 07/22/2024 09:13 AM EDT RP Chest X-Ray 07/23/24 12:15 IMPRESSION: No active pulmonary disease. Electronically signed by: Zach Adam MD 07/23/2024 12:58 PM EDT RP Medications Medications Current Medications Acetaminophen (Acetaminophen 325 Mg Tablet) 650 mg PO Q6H PRN PRN Reason: Headache/Pain, Scale 1-10 Last Admin: 07/31/24 20:56 Dose: 650 mg Al Hydroxide/Mg Hydroxide (Magnesium Hydrox/Alum Hydrox 30 Ml Oral.Susp) 30 ml PO Q6H PRN PRN Reason: Heartburn/Nausea Albuterol/Ipratropium (Albuterol/Iprat 2.5/0.5mg 3 Ml Ampul.Neb) 3 ml INHALE RQ4H WHILE AWAKE PRN PRN Reason: SOB/wheezing Last Admin: 07/29/24 16:26 Dose: 3 ml Atorvastatin Calcium (Atorvastatin Calcium 20 Mg Tablet) 20 mg PO BEDTIME [facility] Last Admin: 07/31/24 20:47 Dose: 20 mg Divalproex Sodium (Divalproex Sodium Sprinkles 125 Mg Cap.) 250 mg PO BID [facility] Last Admin: 08/01/24 08:01 Dose: 250 mg Fluticasone Propionate (Fluticasone Propionate Nasal 16 Gm [place]) 2 spray NOSTRIL-B DAILY [facility] Last Admin: 08/01/24 08:04 Dose: 2 spray Furosemide (Furosemide 20 Mg Tablet) 20 mg PO DAILY PRN; Protocol PRN Reason: Weight gain of 2 pounds overnight or 5 pounds in one week. Guaifenesin/Dextromethorphan (Guaifenesin Dm 600/30 1 Tab Tab.Er.12h) 1 tab PO BID [facility] Last Admin: 08/01/24 08:01 Dose: 1 tab Levothyroxine Sodium (Levothyroxine Sodium 75 Mcg Tablet) 75 mcg PO DAILY@0600 [facility] Last Admin: 08/01/24 05:45 Dose: 75 mcg Lisinopril (Lisinopril 5 Mg Tablet) 5 mg PO DAILY [facility]; Protocol Last Admin: 08/01/24 08:01 Dose: 5 mg Loperamide HCl (Loperamide Hcl 2 Mg Capsule) 2 mg PO Q4H PRN PRN Reason: loose stools Lorazepam (Lorazepam 0.5 Mg Tablet) 0.5 mg PO Q8H PRN PRN Reason: Anxiety Magnesium Hydroxide (Milk Of Magnesia 30 Ml Oral.Susp) 30 ml PO DAILY PRN PRN Reason: Constipation Last Admin: 07/25/24 09:11 Dose: 30 ml Olanzapine (Olanzapine 2.5 Mg Tablet) 2.5 mg PO BID [facility] Last Admin: 08/01/24 08:01 Dose: 2.5 mg Omeprazole (Omeprazole 20 Mg Capsule.) 20 mg PO DAILY@0630 [facility] Last Admin: 08/01/24 05:45 Dose: 20 mg Timolol Maleate (Timolol Maleate 0.5 % Oph Peg 5 Ml Drbtl) 1 drop EYE-BOTH BID [facility] Last Admin: 08/01/24 08:04 Dose: 1 drop Trazodone HCl (Trazodone Hcl 50 Mg Tablet) 50 mg PO BEDTIME MRX1 PRN PRN Reason: Insomnia Last Admin: 07/31/24 20:57 Dose: 50 mg Vitamin D (Cholecalciferol (Vitamin D3) 25 Mcg Tablet) 50 mcg PO DAILY [facility] Last Admin: 08/01/24 08:01 Dose: 50 mcg Allergies Allergies Allergy/AdvReac Type Severity Reaction Status Date / Time sulfamethoxazole Allergy Unknown Verified 03/03/24 14:32 [From Sulfamethoxazole-Trimethoprim] trimethoprim Allergy Unknown Verified 03/03/24 14:32 [From Sulfamethoxazole-Trimethoprim] Assessment & Plan Assessment & Plan (1) 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 Mascorro is an 79 year-old woman with hx of dementia, advanced stages. She was initially admitted to for management of combative and impulsive behaviors secondary to dementia. She was stabilized on combination of depakote, olanzapine. She had episode of brief change in mental status. No VS abnormalities. She was transferred to medical floor for work up of TIA vs stroke, which was negative. Pt transferred back to continue medication management and stabilization and placement. PLAN 06/30 continue tx. 07/01 continue tx. awaiting placement, [facility] paperwork [facility] 07/02 continue tx. 07/03 continue tx. 07/06 continue tx. awaiting placement. 07/07 continue tx. 07/08 continue tx. 07/09: no change. continue current mgmt. 07/10: poor sleep overnight of 2 hours. constipation, small BM overnight. continue current mgmt for now. 07/11: Patient remained stable; no change in presentation; continue treatment plan 07/12; no change in presentation; continue treatment but 07/13 continue tx. UA ordered for increase urinary frequency 07/14 continue tx. 5/21 continue tx. 07/16 continue tx. 07/17 seen by hospitalist, depakote was increased 250mg po TID, ammonia checked today wnl. recommend to recheck ammonia with hihger dose and monitor hyponatremia. 07/18: continue current management and treatment plan.Neurology consult pending. 07/19: continue current management and treatment plan. 07/20: continue current management and treatment plan. 07/21 lowered depakote to 250mg po BID. hyponatremia on 07/19, 129, improved today 134. 07/22 continue tx. 07/23 continue tx. 07/24 continue tx. 07/25 continue tx. 07/26 continue tx. 07/27 continue tx. 07/28 continue tx. 07/29 continue tx. 07/30 continue tx. 07/31 continue tx. 08/01: stable. continue current mgmt. Reason for continued inpatient stay Substantial Risk for: inability to function Time Spent With Patient Time: Total time managing care of this patient today ____ minutes.
[2024-08-01 20:00] VITALS: BP 109/60; PULSE 73; RESP 16; TEMP 36.9; O2SAT 94
[2024-08-01] MEDS: Atorvastatin Calcium 20 MG TABLET PO (20:41)
[2024-08-01] MEDS: traZODone HCL 50 MG TABLET PO (20:47)
[2024-08-01] MEDS: Acetaminophen 325 MG TABLET 650 MG PO (20:47)
[2024-08-02] MEDS: Levothyroxine Sodium 75 MCG TABLET PO (05:59)
[2024-08-02] MEDS: Omeprazole 20 MG CAPSULE.DR PO (05:59)
[2024-08-02 06:00] VITALS: BMI 22.7
[2024-08-02 07:55] VITALS: BP 121/67; PULSE 66; RESP 16; TEMP 36.4; O2SAT 95
[2024-08-02] MEDS: Cholecalciferol (Vitamin D3) 25 MCG TABLET 50 MCG PO (08:04)
[2024-08-02] MEDS: lisinopriL 5 MG TABLET PO (08:04)
[2024-08-02] MEDS: Divalproex Sodium Sprinkles 125 MG CAP.DR.SPR 250 MG PO ×2 (08:04→20:21)
[2024-08-02] MEDS: guaiFENesin DM 600/30 1 TAB TAB.ER.12H PO ×2 (08:04→20:21)
[2024-08-02] MEDS: OLANZapine 2.5 MG TABLET PO ×2 (08:04→20:21)
[2024-08-02] MEDS: timoloL maleate 0.5 % Oph Sol 5 ML DRBTL 1 DROP EYE-BOTH ×2 (08:08→20:31)
[2024-08-02] MEDS: Fluticasone Propionate Nasal 16 GM SPRAY 2 SPRAY NOSTRIL-B (08:08)
--- NOTE | 2024-08-02 15:34 | HO.PSYCHPN ---
Subjective Subjective Date of Service: 08/02/24 Reason For Visit: Combative Behaviors Interim History: lying in bed, [employer]. 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 per staff, less cough since lasix, otherwise unchanged. Mental Status Exam Mental Status Exam Narrative: Appearance: casually groomed in bed Behavior: calm Psychomotor: no agitation or retardation noted Speech: garbled, difficult to understand TP: concrete TC: why can't you send me home today??? Mood:ok Affect:calm, congruent SI: none expressed HI: none expressed VH/AH: no overt signs Delusions: none noted Insight/judgment: impaired x 2 Memory/cog: alert, not oriented to place, month or year nor situation. severe impairment in memory and cognition. Diagnostics Vital Signs (24Hr): Vital Signs - 24 hr 08/01/24 20:00 08/02/24 07:55 Temperature 98.4 F 97.6 F Pulse Rate 73 66 Respiratory Rate 16 16 Blood Pressure 109/60 121/67 Pulse Oximetry 94 95 Oxygen Delivery Method Room Air Room Air BMI result Body Mass Index 22.7 Labs 07/29/24 07:29 07/31/24 07:31 Imaging Radiology Impressions: ITS Impressions Carotid Doppler Study 07/21/24 16:26 IMPRESSION: 1. RIGHT: Normal right internal carotid artery without significant atherosclerotic plaque or hemodynamically significant stenosis. 2. LEFT: Normal left internal carotid artery without significant atherosclerotic plaque or hemodynamically significant stenosis. Electronically signed by: Zach Adam MD 07/22/2024 09:13 AM EDT Chest X-Ray 07/23/24 12:15 IMPRESSION: No active pulmonary disease. Electronically signed by: Zach Adam MD 07/23/2024 12:58 PM EDT RP Medications Medications Current Medications Acetaminophen (Acetaminophen 325 Mg Tablet) 650 mg PO Q6H PRN PRN Reason: Headache/Pain, Scale 1-10 Last Admin: 08/01/24 20:47 Dose: 650 mg Al Hydroxide/Mg Hydroxide (Magnesium Hydrox/Alum Hydrox 30 Ml Oral.Susp) 30 ml PO Q6H PRN PRN Reason: Heartburn/Nausea Albuterol/Ipratropium (Albuterol/Iprat 2.5/0.5mg 3 Ml Ampul.Neb) 3 ml INHALE RQ4H WHILE AWAKE PRN PRN Reason: SOB/wheezing Last Admin: 07/29/24 16:26 Dose: 3 ml Atorvastatin Calcium (Atorvastatin Calcium 20 Mg Tablet) 20 mg PO BEDTIME [facility] Last Admin: 08/01/24 20:41 Dose: 20 mg Divalproex Sodium (Divalproex Sodium Sprinkles 125 Mg Cap.Dr.Spr) 250 mg PO BID [facility] Last Admin: 08/02/24 08:04 Dose: 250 mg Fluticasone Propionate (Fluticasone Propionate Nasal 16 Gm [place]) 2 spray NOSTRIL-B DAILY [facility] Last Admin: 08/02/24 08:08 Dose: 2 spray Furosemide (Furosemide 20 Mg Tablet) 20 mg PO DAILY PRN; Protocol PRN Reason: Weight gain of 2 pounds overnight or 5 pounds in one week. Guaifenesin/Dextromethorphan (Guaifenesin Dm 600/30 1 Tab Tab.Er.12h) 1 tab PO BID [facility] Last Admin: 08/02/24 08:04 Dose: 1 tab Levothyroxine Sodium (Levothyroxine Sodium 75 Mcg Tablet) 75 mcg PO DAILY@0600 [facility] Last Admin: 08/02/24 05:59 Dose: 75 mcg Lisinopril (Lisinopril 5 Mg Tablet) 5 mg PO DAILY [facility]; Protocol Last Admin: 08/02/24 08:04 Dose: 5 mg Loperamide HCl (Loperamide Hcl 2 Mg Capsule) 2 mg PO Q4H PRN PRN Reason: loose stools Lorazepam (Lorazepam 0.5 Mg Tablet) 0.5 mg PO Q8H PRN PRN Reason: Anxiety Magnesium Hydroxide (Milk Of Magnesia 30 Ml Oral.Susp) 30 ml PO DAILY PRN PRN Reason: Constipation Last Admin: 07/25/24 09:11 Dose: 30 ml Olanzapine (Olanzapine 2.5 Mg Tablet) 2.5 mg PO BID [facility] Last Admin: 08/02/24 08:04 Dose: 2.5 mg Omeprazole (Omeprazole 20 Mg Capsule.Dr) 20 mg PO DAILY@0630 [facility] Last Admin: 08/02/24 05:59 Dose: 20 mg Timolol Maleate (Timolol Maleate 0.5 % Oph Peg 5 Ml Drbtl) 1 drop EYE-BOTH BID [facility] Last Admin: 08/02/24 08:08 Dose: 1 drop Trazodone HCl (Trazodone Hcl 50 Mg Tablet) 50 mg PO BEDTIME MRX1 PRN PRN Reason: Insomnia Last Admin: 08/01/24 20:47 Dose: 50 mg Vitamin D (Cholecalciferol (Vitamin D3) 25 Mcg Tablet) 50 mcg PO DAILY [facility] Last Admin: 08/02/24 08:04 Dose: 50 mcg Allergies Allergies Allergy/AdvReac Type Severity Reaction Status Date / Time sulfamethoxazole Allergy Unknown Verified 03/03/24 14:32 [From Sulfamethoxazole-Trimethoprim] trimethoprim Allergy Unknown Verified 03/03/24 14:32 [From Sulfamethoxazole-Trimethoprim] Assessment & Plan Assessment & Plan (1) 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 Mascorro is an 79 year-old woman with hx of dementia, advanced stages. She was initially admitted to for management of combative and impulsive behaviors secondary to dementia. She was stabilized on combination of depakote, olanzapine. She had episode of brief change in mental status. No VS abnormalities. She was transferred to medical floor for work up of TIA vs stroke, which was negative. Pt transferred back to continue medication management and stabilization and placement. PLAN 06/30 continue tx. 07/01 continue tx. awaiting placement, financial paperwork not completed to submit application for [employer]. 07/02 continue tx. 07/03 continue tx. 07/06 continue tx. awaiting placement. 07/07 continue tx. 07/08 continue tx. 07/09: no change. continue current mgmt. 07/10: poor sleep overnight of 2 hours. constipation, small BM overnight. continue current mgmt for now. 07/11: Patient remained stable; no change in presentation; continue treatment plan 07/12; no change in presentation; continue treatment but 07/13 continue tx. UA ordered for increase urinary frequency 07/14 continue tx. 07/15 continue tx. 07/16 continue tx. 07/17 seen by hospitalist, depakote was increased 250mg po TID, ammonia checked today wnl. recommend to recheck ammonia with hihger dose and monitor hyponatremia. 07/18: continue current management and treatment plan.Neurology consult pending. 07/19: continue current management and treatment plan. 07/20: continue current management and treatment plan. 07/21 lowered depakote to 250mg po BID. hyponatremia on 07/19, 129, improved today 134. 07/22 continue tx. 07/23 continue tx. 07/24 continue tx. 07/25 continue tx. 07/26 continue tx. 07/27 continue tx. 07/28 continue tx. 07/29 continue tx. 07/30 continue tx. 07/31 continue tx. 08/01: stable. continue current mgmt. 08/02: as for yesterday. Reason for continued inpatient stay Substantial Risk for: inability to function Time Spent With Patient Time: Total time managing care of this patient today ____ minutes.
[2024-08-02 20:00] VITALS: BP 129/60; PULSE 77; TEMP 36.7; O2SAT 96
[2024-08-02] MEDS: Atorvastatin Calcium 20 MG TABLET PO (20:21)
[2024-08-02] MEDS: Acetaminophen 325 MG TABLET 650 MG PO (20:21)
[2024-08-02] MEDS: traZODone HCL 50 MG TABLET PO (20:21)
[2024-08-03 06:00] VITALS: BMI 23.0
[2024-08-03] MEDS: Levothyroxine Sodium 75 MCG TABLET PO (06:01)
[2024-08-03] MEDS: Omeprazole 20 MG CAPSULE.DR PO (06:01)
[2024-08-03 08:33] VITALS: BP 137/70; PULSE 77; RESP 20; TEMP 36.3; O2SAT 94
[2024-08-03] MEDS: Cholecalciferol (Vitamin D3) 25 MCG TABLET 50 MCG PO (08:35)
[2024-08-03] MEDS: lisinopriL 5 MG TABLET PO (08:36)
[2024-08-03] MEDS: Divalproex Sodium Sprinkles 125 MG CAP.DR.SPR 250 MG PO ×2 (08:36→21:12)
[2024-08-03] MEDS: guaiFENesin DM 600/30 1 TAB TAB.ER.12H PO ×2 (08:36→21:12)
[2024-08-03] MEDS: OLANZapine 2.5 MG TABLET PO ×2 (08:36→21:13)
[2024-08-03] MEDS: timoloL maleate 0.5 % Oph Sol 5 ML DRBTL 1 DROP EYE-BOTH ×2 (08:40→21:35)
[2024-08-03] MEDS: Fluticasone Propionate Nasal 16 GM SPRAY 2 SPRAY NOSTRIL-B (08:40)
--- NOTE | 2024-08-03 09:26 | HO.PSYCHPN ---
Subjective Subjective Date of Service: 08/03/24 Reason For Visit: Combative Behaviors Subjective Notes: Conditional Voluntary Healthcare Proxy: Yes Interim History: Pt slept through the night. She is in bed, denies any concerns. She reports she wants ice cream. She is taking medications as prescribed. continue monitor daily weights and prn lasix. Review of Systems Review of Systems cough,congestion, followed by hospitalist service Yes Unobtainable due to mental status Mental Status Exam Mental Status Exam Narrative: Appearance: casually groomed in bed Behavior: calm Psychomotor: no agitation or retardation noted Speech: garbled, difficult to understand TP: concrete TC: why can't you send me home today??? Mood:ok Affect:calm, congruent SI: none expressed HI: none expressed VH/AH: no overt signs Delusions: none noted Insight/judgment: impaired x 2 Memory/cog: alert, not oriented to place, month or year nor situation. severe impairment in memory and cognition. Diagnostics Vital Signs (24Hr): Vital Signs - 24 hr 08/02/24 20:00 08/03/24 08:33 Temperature 98.0 F 97.3 F Pulse Rate 77 77 Respiratory Rate 20 Blood Pressure 129/60 137/70 Pulse Oximetry 96 94 Oxygen Delivery Method Room Air Room Air BMI result Body Mass Index 23.0 Labs 07/29/24 07:29 07/31/24 07:31 Imaging Radiology Impressions: ITS Impressions Carotid Doppler Study 07/21/24 16:26 IMPRESSION: 1. RIGHT: Normal right internal carotid artery without significant atherosclerotic plaque or hemodynamically significant stenosis. 2. LEFT: Normal left internal carotid artery without significant atherosclerotic plaque or hemodynamically significant stenosis. Electronically signed by: Zach Adam MD 07/22/2024 09:13 AM EDT Chest X-Ray 07/23/24 12:15 IMPRESSION: No active pulmonary disease. Electronically signed by: Zach Adam MD 07/23/2024 12:58 PM EDT Medications Medications Current Medications Acetaminophen (Acetaminophen 325 Mg Tablet) 650 mg PO Q6H PRN PRN Reason: Headache/Pain, Scale 1-10 Last Admin: 08/02/24 20:21 Dose: 650 mg Al Hydroxide/Mg Hydroxide (Magnesium Hydrox/Alum Hydrox 30 Ml Oral.Susp) 30 ml PO Q6H PRN PRN Reason: Heartburn/Nausea Albuterol/Ipratropium (Albuterol/Iprat 2.5/0.5mg 3 Ml Ampul.Neb) 3 ml INHALE RQ4H WHILE AWAKE PRN PRN Reason: SOB/wheezing Last Admin: 07/29/24 16:26 Dose: 3 ml Atorvastatin Calcium (Atorvastatin Calcium 20 Mg Tablet) 20 mg PO BEDTIME [facility] Last Admin: 08/02/24 20:21 Dose: 20 mg Divalproex Sodium (Divalproex Sodium Sprinkles 125 Mg Cap..Princess) 250 mg PO BID [facility] Last Admin: 08/03/24 08:36 Dose: 250 mg Fluticasone Propionate (Fluticasone Propionate Nasal 16 Gm [place]) 2 spray NOSTRIL-B DAILY [facility] Last Admin: 08/03/24 08:40 Dose: 2 spray Furosemide (Furosemide 20 Mg Tablet) 20 mg PO DAILY PRN; Protocol PRN Reason: Weight gain of 2 pounds overnight or 5 pounds in one week. Guaifenesin/Dextromethorphan (Guaifenesin Dm 600/30 1 Tab Tab.Er.12h) 1 tab PO BID [facility] Last Admin: 08/03/24 08:36 Dose: 1 tab Levothyroxine Sodium (Levothyroxine Sodium 75 Mcg Tablet) 75 mcg PO DAILY@0600 [facility] Last Admin: 08/03/24 06:01 Dose: 75 mcg Lisinopril (Lisinopril 5 Mg Tablet) 5 mg PO DAILY [facility]; Protocol Last Admin: 08/03/24 08:36 Dose: 5 mg Loperamide HCl (Loperamide Hcl 2 Mg Capsule) 2 mg PO Q4H PRN PRN Reason: loose stools Lorazepam (Lorazepam 0.5 Mg Tablet) 0.5 mg PO Q8H PRN PRN Reason: Anxiety Magnesium Hydroxide (Milk Of Magnesia 30 Ml Oral.Susp) 30 ml PO DAILY PRN PRN Reason: Constipation Last Admin: 07/25/24 09:11 Dose: 30 ml Olanzapine (Olanzapine 2.5 Mg Tablet) 2.5 mg PO BID [facility] Last Admin: 08/03/24 08:36 Dose: 2.5 mg Omeprazole (Omeprazole 20 Mg Lisa.) 20 mg PO DAILY@0630 [facility] Last Admin: 08/03/24 06:01 Dose: 20 mg Timolol Maleate (Timolol Maleate 0.5 % Oph Peg 5 Ml Drbtl) 1 drop EYE-BOTH BID [facility] Last Admin: 08/03/24 08:40 Dose: 1 drop Trazodone HCl (Trazodone Hcl 50 Mg Tablet) 50 mg PO BEDTIME MRX1 PRN PRN Reason: Insomnia Last Admin: 08/02/24 20:21 Dose: 50 mg Vitamin D (Cholecalciferol (Vitamin D3) 25 Mcg Tablet) 50 mcg PO DAILY [facility] Last Admin: 08/03/24 08:35 Dose: 50 mcg Allergies Allergies Allergy/AdvReac Type Severity Reaction Status Date / Time sulfamethoxazole Allergy Unknown Verified 03/03/24 14:32 [From Sulfamethoxazole-Trimethoprim] trimethoprim Allergy Unknown Verified 03/03/24 14:32 [From Sulfamethoxazole-Trimethoprim] Assessment & Plan Assessment & Plan (1) 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 Mascorro is an 79 year-old woman with hx of dementia, advanced stages. She was initially admitted to for management of combative and impulsive behaviors secondary to dementia. She was stabilized on combination of depakote, olanzapine. She had episode of brief change in mental status. No VS abnormalities. She was transferred to medical floor for work up of TIA vs stroke, which was negative. Pt transferred back to continue medication management and stabilization and placement. PLAN 06/30 continue tx. 07/01 continue tx. awaiting placement, financial paperwork not completed to submit application for [employer]. 07/02 continue tx. 07/03 continue tx. 07/06 continue tx. awaiting placement. 07/07 continue tx. 07/08 continue tx. 07/09: no change. continue current mgmt. 07/10: poor sleep overnight of 2 hours. constipation, small BM overnight. continue current mgmt for now. 07/11: Patient remained stable; no change in presentation; continue treatment plan 07/12; no change in presentation; continue treatment but 07/13 continue tx. UA ordered for increase urinary frequency 07/14 continue tx. 07/15 continue tx. 07/16 continue tx. 5/23 seen by hospitalist, depakote was increased 250mg po TID, ammonia checked today wnl. recommend to recheck ammonia with hihger dose and monitor hyponatremia. 07/18: continue current management and treatment plan.Neurology consult pending. 07/19: continue current management and treatment plan. 07/20: continue current management and treatment plan. 07/21 lowered depakote to 250mg po BID. hyponatremia on 07/19, 129, improved today 134. 07/22 continue tx. 07/23 continue tx. 07/24 continue tx. 07/25 continue tx. 07/26 continue tx. 07/27 continue tx. 07/28 continue tx. 07/29 continue tx. 07/30 continue tx. 07/31 continue tx. 08/01: stable. continue current mgmt. 08/02: as for yesterday. 08/03 continue tx. Reason for continued inpatient stay Substantial Risk for: inability to function Time Spent With Patient Time: Total time managing care of this patient today ____ minutes.
[2024-08-03 09:52] VITALS: PULSE 68; RESP 144; O2SAT 95
[2024-08-03] MEDS: Albuterol/Iprat 2.5/0.5MG 3 ML AMPUL.NEB INHALE (09:58)
--- NOTE | 2024-08-03 10:00 | PC.RT ---
Rt called to [facility] on room 184/1. pt was asleep, b/s clear bilat, r/r 14, spo2 95% on room air, . when rt asked RN the reason for rx, RN stated that the pt has barking cough . this rt explained the rx id for wheezing/ sob, and would not help with barking cough. RN insisted pt get rx, because RN feels rx would help. RX was administered as ordered, no changed to r/r, h/r, or spo2. pt stll has cough.
[2024-08-03 16:35] VITALS: BMI 23.4
[2024-08-03 20:00] VITALS: BP 109/52; PULSE 78; TEMP 36.9; O2SAT 93
[2024-08-03] MEDS: Atorvastatin Calcium 20 MG TABLET PO (21:12)
[2024-08-04 06:00] VITALS: BMI 23.4
[2024-08-04] MEDS: Omeprazole 20 MG CAPSULE.DR PO (06:25)
[2024-08-04] MEDS: Levothyroxine Sodium 75 MCG TABLET PO (06:25)
[2024-08-04 08:00] VITALS: BP 132/55; PULSE 74; RESP 18; TEMP 2.4; TEMP 36.4; O2SAT 95
[2024-08-04] MEDS: OLANZapine 2.5 MG TABLET PO ×2 (08:28→19:29)
[2024-08-04] MEDS: guaiFENesin DM 600/30 1 TAB TAB.ER.12H PO ×2 (08:28→19:29)
[2024-08-04] MEDS: Cholecalciferol (Vitamin D3) 25 MCG TABLET 50 MCG PO (08:28)
[2024-08-04] MEDS: Divalproex Sodium Sprinkles 125 MG CAP.DR.SPR 250 MG PO ×2 (08:29→19:29)
[2024-08-04] MEDS: lisinopriL 5 MG TABLET PO (08:29)
[2024-08-04] MEDS: Furosemide 20 MG TABLET PO (10:19)
[2024-08-04] MEDS: timoloL maleate 0.5 % Oph Sol 5 ML DRBTL 1 DROP EYE-BOTH ×2 (10:21→19:30)
[2024-08-04] MEDS: Fluticasone Propionate Nasal 16 GM SPRAY 2 SPRAY NOSTRIL-B (10:21)
--- NOTE | 2024-08-04 11:02 | P.PNPSI_ITS ---
Subjective Subjective Date of Service: 08/04/24 Reason For Visit: Combative Behaviors Interim History: Pt slept through the night. She is in bed, denies any concerns. She reports she wants ice cream. She is taking medications as prescribed. continue monitor daily weights and prn lasix. Review of Systems Review of Systems cough,congestion, followed by hospitalist service Yes Unobtainable due to mental status Mental Status Exam Mental Status Exam Narrative: Appearance: casually groomed in bed Behavior: calm Psychomotor: no agitation or retardation noted Speech: garbled, difficult to understand TP: concrete TC: why can't you send me home today??? Mood:ok Affect:calm, congruent SI: none expressed HI: none expressed VH/AH: no overt signs Delusions: none noted Insight/judgment: impaired x 2 Memory/cog: alert, not oriented to place, month or year nor situation. severe impairment in memory and cognition. Diagnostics Vital Signs (24Hr): Vital Signs - 24 hr 08/03/24 20:00 08/04/24 08:00 Temperature 98.4 F 36.4 F L Pulse Rate 78 74 Respiratory Rate 18 Blood Pressure 109/52 L 132/55 L Pulse Oximetry 93 95 Oxygen Delivery Method Room Air Room Air BMI result Body Mass Index 23.4 Labs 07/29/24 07:29 07/31/24 07:31 Imaging Radiology Impressions: ITS Impressions Carotid Doppler Study 07/21/24 16:26 IMPRESSION: 1. RIGHT: Normal right internal carotid artery without significant atherosclerotic plaque or hemodynamically significant stenosis. 2. LEFT: Normal left internal carotid artery without significant atherosclerotic plaque or hemodynamically significant stenosis. Electronically signed by: Zach Adam MD 07/22/2024 09:13 AM EDT RP Chest X-Ray 07/23/24 12:15 IMPRESSION: No active pulmonary disease. Electronically signed by: Zach Adam MD 07/23/2024 12:58 PM EDT Medications Medications Current Medications Acetaminophen (Acetaminophen 325 Mg Tablet) 650 mg PO Q6H PRN PRN Reason: Headache/Pain, Scale 1-10 Last Admin: 08/02/24 20:21 Dose: 650 mg Al Hydroxide/Mg Hydroxide (Magnesium Hydrox/Alum Hydrox 30 Ml Oral.Susp) 30 ml PO Q6H PRN PRN Reason: Heartburn/Nausea Albuterol/Ipratropium (Albuterol/Iprat 2.5/0.5mg 3 Ml Ampul.Neb) 3 ml INHALE RQ4H WHILE AWAKE PRN PRN Reason: SOB/wheezing Last Admin: 08/03/24 09:58 Dose: 3 ml Atorvastatin Calcium (Atorvastatin Calcium 20 Mg Tablet) 20 mg PO BEDTIME [facility] Last Admin: 08/03/24 21:12 Dose: 20 mg Divalproex Sodium (Divalproex Sodium Sprinkles 125 Mg Cap.) 250 mg PO BID [facility] Last Admin: 08/04/24 08:29 Dose: 250 mg Fluticasone Propionate (Fluticasone Propionate Nasal 16 Gm [place]) 2 spray NOSTRIL-B DAILY [facility] Last Admin: 08/04/24 10:21 Dose: 2 spray Furosemide (Furosemide 20 Mg Tablet) 20 mg PO DAILY PRN; Protocol PRN Reason: Weight gain of 2 pounds overnight or 5 pounds in one week. Last Admin: 08/04/24 10:19 Dose: 20 mg Guaifenesin/Dextromethorphan (Guaifenesin Dm 600/30 1 Tab Tab.Er.12h) 1 tab PO BID [facility] Last Admin: 08/04/24 08:28 Dose: 1 tab Levothyroxine Sodium (Levothyroxine Sodium 75 Mcg Tablet) 75 mcg PO DAILY@0600 [facility] Last Admin: 08/04/24 06:25 Dose: 75 mcg Lisinopril (Lisinopril 5 Mg Tablet) 5 mg PO DAILY [facility]; Protocol Last Admin: 08/04/24 08:29 Dose: 5 mg Loperamide HCl (Loperamide Hcl 2 Mg Capsule) 2 mg PO Q4H PRN PRN Reason: loose stools Lorazepam (Lorazepam 0.5 Mg Tablet) 0.5 mg PO Q8H PRN PRN Reason: Anxiety Magnesium Hydroxide (Milk Of Magnesia 30 Ml Oral.Susp) 30 ml PO DAILY PRN PRN Reason: Constipation Last Admin: 07/25/24 09:11 Dose: 30 ml Olanzapine (Olanzapine 2.5 Mg Tablet) 2.5 mg PO BID [facility] Last Admin: 08/04/24 08:28 Dose: 2.5 mg Omeprazole (Omeprazole 20 Mg Capsule.) 20 mg PO DAILY@0630 [facility] Last Admin: 08/04/24 06:25 Dose: 20 mg Timolol Maleate (Timolol Maleate 0.5 % Oph Peg 5 Ml Drbtl) 1 drop EYE-BOTH BID [facility] Last Admin: 08/04/24 10:21 Dose: 1 drop Trazodone HCl (Trazodone Hcl 50 Mg Tablet) 50 mg PO BEDTIME MRX1 PRN PRN Reason: Insomnia Last Admin: 08/02/24 20:21 Dose: 50 mg Vitamin D (Cholecalciferol (Vitamin D3) 25 Mcg Tablet) 50 mcg PO DAILY [facility] Last Admin: 08/04/24 08:28 Dose: 50 mcg Allergies Allergies Allergy/AdvReac Type Severity Reaction Status Date / Time sulfamethoxazole Allergy Unknown Verified 03/03/24 14:32 [From Sulfamethoxazole-Trimethoprim] trimethoprim Allergy Unknown Verified 03/03/24 14:32 [From Sulfamethoxazole-Trimethoprim] Assessment & Plan Assessment & Plan (1) 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 Mascorro is an 79 year-old woman with hx of dementia, advanced stages. She was initially admitted to for management of combative and impulsive behaviors secondary to dementia. She was stabilized on combination of depakote, olanzapine. She had episode of brief change in mental status. No VS abnormalities. She was transferred to medical floor for work up of TIA vs stroke, which was negative. Pt transferred back to continue medication management and stabilization and placement. PLAN 06/30 continue tx. 07/01 continue tx. awaiting placement, financial paperwork not completed to submit application for [facility]. 07/02 continue tx. 07/03 continue tx. 07/06 continue tx. awaiting placement. 07/07 continue tx. 07/08 continue tx. 07/09: no change. continue current mgmt. 07/10: poor sleep overnight of 2 hours. constipation, small BM overnight. continue current mgmt for now. 07/11: Patient remained stable; no change in presentation; continue treatment plan 07/12; no change in presentation; continue treatment but 07/13 continue tx. UA ordered for increase urinary frequency 07/14 continue tx. 07/15 continue tx. 07/16 continue tx. 07/17 seen by hospitalist, depakote was increased 250mg po TID, ammonia checked today wnl. recommend to recheck ammonia with hihger dose and monitor hyponatremia. 07/18: continue current management and treatment plan.Neurology consult pending. 07/19: continue current management and treatment plan. 07/20: continue current management and treatment plan. 07/21 lowered depakote to 250mg po BID. hyponatremia on 07/19, 129, improved today 134. 07/22 continue tx. 07/23 continue tx. 07/24 continue tx. 07/25 continue tx. 07/26 continue tx. 07/27 continue tx. 07/28 continue tx. 07/29 continue tx. 07/30 continue tx. 07/31 continue tx. 08/01: stable. continue current mgmt. 08/02: as for yesterday. 08/03 continue tx. 08/04 continue tx. Reason for continued inpatient stay Substantial Risk for: inability to function Time Spent With Patient Time: Total time managing care of this patient today ____ minutes.
[2024-08-04] MEDS: LORazepam 0.5 MG TABLET PO (17:14)
[2024-08-04 19:27] VITALS: BP 136/76; PULSE 83; RESP 16; TEMP 36.8; O2SAT 92
[2024-08-04] MEDS: Atorvastatin Calcium 20 MG TABLET PO (19:29)
[2024-08-05] MEDS: Levothyroxine Sodium 75 MCG TABLET PO (05:04)
[2024-08-05] MEDS: Omeprazole 20 MG CAPSULE.DR PO (05:34)
[2024-08-05 05:38] VITALS: BMI 21.3
[2024-08-05] MEDS: Divalproex Sodium Sprinkles 125 MG CAP.DR.SPR 250 MG PO ×2 (07:59→21:04)
[2024-08-05 08:00] VITALS: BP 146/67; PULSE 68; RESP 18; TEMP 36.6; O2SAT 95
[2024-08-05] MEDS: OLANZapine 2.5 MG TABLET PO ×2 (08:00→21:04)
[2024-08-05] MEDS: Cholecalciferol (Vitamin D3) 25 MCG TABLET 50 MCG PO (08:00)
[2024-08-05] MEDS: lisinopriL 5 MG TABLET PO (08:00)
[2024-08-05] MEDS: guaiFENesin DM 600/30 1 TAB TAB.ER.12H PO ×2 (08:00→21:04)
[2024-08-05] MEDS: timoloL maleate 0.5 % Oph Sol 5 ML DRBTL 1 DROP EYE-BOTH ×2 (08:02→21:04)
[2024-08-05] MEDS: Fluticasone Propionate Nasal 16 GM SPRAY 2 SPRAY NOSTRIL-B (08:02)
--- NOTE | 2024-08-05 13:57 | MHC.CLN ---
F/U ADDED ENSURE TID TO INCREASE KCAL INTAKE. SUPPLEMENT PROVIDES 1050 KCALS, 60 G PROTEIN. PATIENT CONTINUES WITH 1500 ML FLUID RESTRICTION. IF SUPPLEMENT CONSUMED 100%, PROVIDES APPROX 600 ML FREE WATER.
[2024-08-05 20:00] VITALS: BP 131/58; PULSE 78; RESP 16; TEMP 37.1; O2SAT 94
--- NOTE | 2024-08-05 20:57 | HO.PSYCHPN ---
Subjective Subjective Date of Service: 08/05/24 Reason For Visit: Combative Behaviors Subjective Notes: Conditional Voluntary Healthcare Proxy: Yes Interim History: Pt slept through the night. She is in bed, denies any concerns. She reports she wants ice cream. She is taking medications as prescribed. continue monitor daily weights and prn lasix. Review of Systems Review of Systems cough,congestion, followed by hospitalist service Yes Unobtainable due to mental status Mental Status Exam Mental Status Exam Narrative: Appearance: casually groomed in bed Behavior: calm Psychomotor: no agitation or retardation noted Speech: garbled, difficult to understand TP: concrete TC: why can't you send me home today??? Mood:ok Affect:calm, congruent SI: none expressed HI: none expressed VH/AH: no overt signs Delusions: none noted Insight/judgment: impaired x 2 Memory/cog: alert, not oriented to place, month or year nor situation. severe impairment in memory and cognition. Patient Appearance: Appropriate Patient Orientation: Person Level of Consciousness: Awake and Alert Patient Behavior: Cooperative Mood Description: Calm Affect Description: Calm Patient Cognition Impaired: Yes Ability to Follow Directions: Fair Speech Pattern: Impoverished Diagnostics Vital Signs (24Hr): Vital Signs - 24 hr 08/05/24 08:00 Temperature 97.8 F Pulse Rate 68 Respiratory Rate 18 Blood Pressure 146/67 H Pulse Oximetry 95 Oxygen Delivery Method Room Air BMI result Body Mass Index 21.3 Labs 07/29/24 07:29 07/31/24 07:31 Imaging Radiology Impressions: ITS Impressions Carotid Doppler Study 07/21/24 16:26 IMPRESSION: 1. RIGHT: Normal right internal carotid artery without significant atherosclerotic plaque or hemodynamically significant stenosis. 2. LEFT: Normal left internal carotid artery without significant atherosclerotic plaque or hemodynamically significant stenosis. Electronically signed by: Zach Adam MD 07/22/2024 09:13 AM EDT RP Chest X-Ray 07/23/24 12:15 IMPRESSION: No active pulmonary disease. Electronically signed by: Zach Adam MD 07/23/2024 12:58 PM EDT RP Medications Medications Current Medications Acetaminophen (Acetaminophen 325 Mg Tablet) 650 mg PO Q6H PRN PRN Reason: Headache/Pain, Scale 1-10 Last Admin: 08/02/24 20:21 Dose: 650 mg Al Hydroxide/Mg Hydroxide (Magnesium Hydrox/Alum Hydrox 30 Ml Oral.Susp) 30 ml PO Q6H PRN PRN Reason: Heartburn/Nausea Albuterol/Ipratropium (Albuterol/Iprat 2.5/0.5mg 3 Ml Ampul.Neb) 3 ml INHALE RQ4H WHILE AWAKE PRN PRN Reason: SOB/wheezing Last Admin: 08/03/24 09:58 Dose: 3 ml Atorvastatin Calcium (Atorvastatin Calcium 20 Mg Tablet) 20 mg PO BEDTIME [facility] Last Admin: 08/04/24 19:29 Dose: 20 mg Divalproex Sodium (Divalproex Sodium Sprinkles 125 Mg [place].) 250 mg PO BID [facility] Last Admin: 08/05/24 07:59 Dose: 250 mg Fluticasone Propionate (Fluticasone Propionate Nasal 16 Gm [place]) 2 spray NOSTRIL-B DAILY [facility] Last Admin: 08/05/24 08:02 Dose: 2 spray Furosemide (Furosemide 20 Mg Tablet) 20 mg PO DAILY PRN; Protocol PRN Reason: Weight gain of 2 pounds overnight or 5 pounds in one week. Last Admin: 08/04/24 10:19 Dose: 20 mg Guaifenesin/Dextromethorphan (Guaifenesin Dm 600/30 1 Tab Tab.Er.12h) 1 tab PO BID [facility] Last Admin: 08/05/24 08:00 Dose: 1 tab Levothyroxine Sodium (Levothyroxine Sodium 75 Mcg Tablet) 75 mcg PO DAILY@0600 [facility] Last Admin: 08/05/24 05:04 Dose: 75 mcg Lisinopril (Lisinopril 5 Mg Tablet) 5 mg PO DAILY [facility]; Protocol Last Admin: 08/05/24 08:00 Dose: 5 mg Loperamide HCl (Loperamide Hcl 2 Mg Capsule) 2 mg PO Q4H PRN PRN Reason: loose stools Lorazepam (Lorazepam 0.5 Mg Tablet) 0.5 mg PO Q8H PRN PRN Reason: Anxiety Last Admin: 08/04/24 17:14 Dose: 0.5 mg Magnesium Hydroxide (Milk Of Magnesia 30 Ml Oral.Susp) 30 ml PO DAILY PRN PRN Reason: Constipation Last Admin: 07/25/24 09:11 Dose: 30 ml Olanzapine (Olanzapine 2.5 Mg Tablet) 2.5 mg PO BID [facility] Last Admin: 08/05/24 08:00 Dose: 2.5 mg Omeprazole (Omeprazole 20 Mg Capsule.Dr) 20 mg PO DAILY@0630 [facility] Last Admin: 08/05/24 05:34 Dose: 20 mg Timolol Maleate (Timolol Maleate 0.5 % Oph Peg 5 Ml Drbtl) 1 drop EYE-BOTH BID [facility] Last Admin: 08/05/24 08:02 Dose: 1 drop Trazodone HCl (Trazodone Hcl 50 Mg Tablet) 50 mg PO BEDTIME MRX1 PRN PRN Reason: Insomnia Last Admin: 08/02/24 20:21 Dose: 50 mg Vitamin D (Cholecalciferol (Vitamin D3) 25 Mcg Tablet) 50 mcg PO DAILY [facility] Last Admin: 08/05/24 08:00 Dose: 50 mcg Allergies Allergies Allergy/AdvReac Type Severity Reaction Status Date / Time sulfamethoxazole Allergy Unknown Verified 03/03/24 14:32 [From Sulfamethoxazole-Trimethoprim] trimethoprim Allergy Unknown Verified 03/03/24 14:32 [From Sulfamethoxazole-Trimethoprim] Assessment & Plan Assessment & Plan (1) 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 Mascorro is an 79 year-old woman with hx of dementia, advanced stages. She was initially admitted to for management of combative and impulsive behaviors secondary to dementia. She was stabilized on combination of depakote, olanzapine. She had episode of brief change in mental status. No VS abnormalities. She was transferred to medical floor for work up of TIA vs stroke, which was negative. Pt transferred back to continue medication management and stabilization and placement. PLAN 06/30 continue tx. 07/01 continue tx. awaiting placement, financial paperwork not completed to submit application for [employer]. 07/02 continue tx. 07/03 continue tx. 07/06 continue tx. awaiting placement. 07/07 continue tx. 07/08 continue tx. 07/09: no change. continue current mgmt. 07/10: poor sleep overnight of 2 hours. constipation, small BM overnight. continue current mgmt for now. 07/11: Patient remained stable; no change in presentation; continue treatment plan 07/12; no change in presentation; continue treatment but 07/13 continue tx. UA ordered for increase urinary frequency 07/14 continue tx. 07/15 continue tx. 07/16 continue tx. 07/17 seen by hospitalist, depakote was increased 250mg po TID, ammonia checked today wnl. recommend to recheck ammonia with hihger dose and monitor hyponatremia. 07/18: continue current management and treatment plan.Neurology consult pending. 07/19: continue current management and treatment plan. 07/20: continue current management and treatment plan. 07/21 lowered depakote to 250mg po BID. hyponatremia on 07/19, 129, improved today 134. 07/22 continue tx. 07/23 continue tx. 07/24 continue tx. 07/25 continue tx. 07/26 continue tx. 07/27 continue tx. 07/28 continue tx. 07/29 continue tx. 07/30 continue tx. 07/31 continue tx. 08/01: stable. continue current mgmt. 08/02: as for yesterday. 08/03 continue tx. 08/04 continue tx 08/05 continue tx. Reason for continued inpatient stay Substantial Risk for: inability to function Time Spent With Patient Time: Total time managing care of this patient today ____ minutes.
[2024-08-05] MEDS: Atorvastatin Calcium 20 MG TABLET PO (21:04)
[2024-08-06] MEDS: Levothyroxine Sodium 75 MCG TABLET PO (06:42)
[2024-08-06] MEDS: Omeprazole 20 MG CAPSULE.DR PO (06:42)
--- NOTE | 2024-08-06 07:45 | P.PNPSI_ITS ---
Subjective Subjective Date of Service: 08/06/24 Reason For Visit: Combative Behaviors Subjective Notes: Conditional Voluntary Healthcare Proxy: Yes Interim History: Pt slept through the night. She is in bed, denies any concerns. She ambulates with walker, asking to go home. VS stable. No significant weight gain, on daily weights. She is taking medications as prescribed. Review of Systems Review of Systems cough,congestion, followed by hospitalist service Yes Unobtainable due to mental status Mental Status Exam Mental Status Exam Narrative: Appearance: casually groomed in bed Behavior: calm Psychomotor: no agitation or retardation noted Speech: garbled, difficult to understand TP: concrete TC: why can't you send me home today??? Mood:ok Affect:calm, congruent SI: none expressed HI: none expressed VH/AH: no overt signs Delusions: none noted Insight/judgment: impaired x 2 Memory/cog: alert, not oriented to place, month or year nor situation. severe impairment in memory and cognition. Diagnostics Vital Signs (24Hr): Vital Signs - 24 hr 08/05/24 08:00 08/05/24 20:00 Temperature 97.8 F 98.8 F Pulse Rate 68 78 Respiratory Rate 18 16 Blood Pressure 146/67 H 131/58 L Pulse Oximetry 95 94 Oxygen Delivery Method Room Air Room Air BMI result Body Mass Index 21.3 Labs 07/29/24 07:29 07/31/24 07:31 Imaging Radiology Impressions: ITS Impressions Carotid Doppler Study 07/21/24 16:26 IMPRESSION: 1. RIGHT: Normal right internal carotid artery without significant atherosclerotic plaque or hemodynamically significant stenosis. 2. LEFT: Normal left internal carotid artery without significant atherosclerotic plaque or hemodynamically significant stenosis. Electronically signed by: Zach Adam MD 07/22/2024 09:13 AM EDT RP Chest X-Ray 07/23/24 12:15 IMPRESSION: No active pulmonary disease. Electronically signed by: Zach Adam MD 07/23/2024 12:58 PM EDT Medications Medications Current Medications Acetaminophen (Acetaminophen 325 Mg Tablet) 650 mg PO Q6H PRN PRN Reason: Headache/Pain, Scale 1-10 Last Admin: 08/02/24 20:21 Dose: 650 mg Al Hydroxide/Mg Hydroxide (Magnesium Hydrox/Alum Hydrox 30 Ml Oral.Susp) 30 ml PO Q6H PRN PRN Reason: Heartburn/Nausea Albuterol/Ipratropium (Albuterol/Iprat 2.5/0.5mg 3 Ml Ampul.Neb) 3 ml INHALE RQ4H WHILE AWAKE PRN PRN Reason: SOB/wheezing Last Admin: 08/03/24 09:58 Dose: 3 ml Atorvastatin Calcium (Atorvastatin Calcium 20 Mg Tablet) 20 mg PO BEDTIME [facility] Last Admin: 08/05/24 21:04 Dose: 20 mg Divalproex Sodium (Divalproex Sodium Sprinkles 125 Mg ) 250 mg PO BID [facility] Last Admin: 08/05/24 21:04 Dose: 250 mg Fluticasone Propionate (Fluticasone Propionate Nasal 16 Gm [place]) 2 spray NOSTRIL-B DAILY [facility] Last Admin: 08/05/24 08:02 Dose: 2 spray Furosemide (Furosemide 20 Mg Tablet) 20 mg PO DAILY PRN; Protocol PRN Reason: Weight gain of 2 pounds overnight or 5 pounds in one week. Last Admin: 08/04/24 10:19 Dose: 20 mg Guaifenesin/Dextromethorphan (Guaifenesin Dm 600/30 1 Tab Tab.Er.12h) 1 tab PO BID [facility] Last Admin: 08/05/24 21:04 Dose: 1 tab Levothyroxine Sodium (Levothyroxine Sodium 75 Mcg Tablet) 75 mcg PO DAILY@0600 [facility] Last Admin: 08/06/24 06:42 Dose: 75 mcg Lisinopril (Lisinopril 5 Mg Tablet) 5 mg PO DAILY [facility]; Protocol Last Admin: 08/05/24 08:00 Dose: 5 mg Loperamide HCl (Loperamide Hcl 2 Mg Capsule) 2 mg PO Q4H PRN PRN Reason: loose stools Lorazepam (Lorazepam 0.5 Mg Tablet) 0.5 mg PO Q8H PRN PRN Reason: Anxiety Last Admin: 08/04/24 17:14 Dose: 0.5 mg Magnesium Hydroxide (Milk Of Magnesia 30 Ml Oral.Susp) 30 ml PO DAILY PRN PRN Reason: Constipation Last Admin: 07/25/24 09:11 Dose: 30 ml Olanzapine (Olanzapine 2.5 Mg Tablet) 2.5 mg PO BID [facility] Last Admin: 08/05/24 21:04 Dose: 2.5 mg Omeprazole (Omeprazole 20 Mg Capsule.Dr) 20 mg PO DAILY@0630 [facility] Last Admin: 08/06/24 06:42 Dose: 20 mg Timolol Maleate (Timolol Maleate 0.5 % Oph Peg 5 Ml Drbtl) 1 drop EYE-BOTH BID [facility] Last Admin: 08/05/24 21:04 Dose: 1 drop Trazodone HCl (Trazodone Hcl 50 Mg Tablet) 50 mg PO BEDTIME MRX1 PRN PRN Reason: Insomnia Last Admin: 08/02/24 20:21 Dose: 50 mg Vitamin D (Cholecalciferol (Vitamin D3) 25 Mcg Tablet) 50 mcg PO DAILY [facility] Last Admin: 08/05/24 08:00 Dose: 50 mcg Allergies Allergies Allergy/AdvReac Type Severity Reaction Status Date / Time sulfamethoxazole Allergy Unknown Verified 03/03/24 14:32 [From Sulfamethoxazole-Trimethoprim] trimethoprim Allergy Unknown Verified 03/03/24 14:32 [From Sulfamethoxazole-Trimethoprim] Assessment & Plan Assessment & Plan (1) 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 Mascorro is an 79 year-old woman with hx of dementia, advanced stages. She was initially admitted to for management of combative and impulsive behaviors secondary to dementia. She was stabilized on combination of depakote, olanzapine. She had episode of brief change in mental status. No VS abnormalities. She was transferred to medical floor for work up of TIA vs stroke, which was negative. Pt transferred back to continue medication management and stabilization and placement. PLAN 06/30 continue tx. 07/01 continue tx. awaiting placement, financial paperwork not completed to submit application for [employer]. 07/02 continue tx. 07/03 continue tx. 07/06 continue tx. awaiting placement. 07/07 continue tx. 07/08 continue tx. 07/09: no change. continue current mgmt. 07/10: poor sleep overnight of 2 hours. constipation, small BM overnight. continue current mgmt for now. 07/11: Patient remained stable; no change in presentation; continue treatment plan 07/12; no change in presentation; continue treatment but 07/13 continue tx. UA ordered for increase urinary frequency 07/14 continue tx. 07/15 continue tx. 07/16 continue tx. 07/17 seen by hospitalist, depakote was increased 250mg po TID, ammonia checked today wnl. recommend to recheck ammonia with hihger dose and monitor hyponatremia. 07/18: continue current management and treatment plan.Neurology consult pending. 07/19: continue current management and treatment plan. 07/20: continue current management and treatment plan. 07/21 lowered depakote to 250mg po BID. hyponatremia on 07/19, 129, improved today 134. 07/22 continue tx. 07/23 continue tx. 07/24 continue tx. 07/25 continue tx. 07/26 continue tx. 07/27 continue tx. 07/28 continue tx. 07/29 continue tx. 07/30 continue tx. 07/31 continue tx. 08/01: stable. continue current mgmt. 08/02: as for yesterday. 08/03 continue tx. 08/04 continue tx 08/05 continue tx. 08/06 continue tx. Reason for continued inpatient stay Substantial Risk for: inability to function Time Spent With Patient Time: Total time managing care of this patient today ____ minutes.
[2024-08-06 08:00] VITALS: BP 129/65; PULSE 73; RESP 17; TEMP 36; O2SAT 99
[2024-08-06] MEDS: Divalproex Sodium Sprinkles 125 MG CAP.DR.SPR 250 MG PO ×2 (09:21→20:23)
[2024-08-06] MEDS: OLANZapine 2.5 MG TABLET PO ×2 (09:21→20:23)
[2024-08-06 09:22] VITALS: BP 129/65
[2024-08-06] MEDS: guaiFENesin DM 600/30 1 TAB TAB.ER.12H PO ×2 (09:22→20:24)
[2024-08-06] MEDS: lisinopriL 5 MG TABLET PO (09:22)
[2024-08-06] MEDS: Cholecalciferol (Vitamin D3) 25 MCG TABLET 50 MCG PO (09:23)
[2024-08-06] MEDS: Fluticasone Propionate Nasal 16 GM SPRAY 2 SPRAY NOSTRIL-B (09:26)
[2024-08-06] MEDS: timoloL maleate 0.5 % Oph Sol 5 ML DRBTL 1 DROP EYE-BOTH ×2 (09:30→20:24)
[2024-08-06 11:17] VITALS: BMI 23.1
[2024-08-06 20:00] VITALS: BP 143/81; PULSE 77; RESP 18; TEMP 36.4; O2SAT 99
[2024-08-06] MEDS: Atorvastatin Calcium 20 MG TABLET PO (20:23)
[2024-08-06] MEDS: traZODone HCL 50 MG TABLET PO (20:31)
[2024-08-06] MEDS: Acetaminophen 325 MG TABLET 650 MG PO (20:31)
[2024-08-07] MEDS: Levothyroxine Sodium 75 MCG TABLET PO (05:40)
[2024-08-07 06:00] VITALS: BMI 22.7
[2024-08-07] MEDS: Omeprazole 20 MG CAPSULE.DR PO (06:14)
[2024-08-07 08:00] VITALS: BP 138/75; PULSE 68; RESP 18; TEMP 36.3; O2SAT 97
--- NOTE | 2024-08-07 09:23 | HO.PSYCHPN ---
Subjective Subjective Date of Service: 08/07/24 Reason For Visit: Combative Behaviors Subjective Notes: Conditional Voluntary Interim History: Pt slept through the night. She is in bed, denies any concerns. She ambulates with walker, asking to go home. VS stable. No significant weight gain, on daily weights. She is taking medications as prescribed. Review of Systems Review of Systems cough,congestion, followed by hospitalist service Yes Unobtainable due to mental status Mental Status Exam Mental Status Exam Narrative: Appearance: casually groomed in bed Behavior: calm Psychomotor: no agitation or retardation noted Speech: garbled, difficult to understand TP: concrete TC: why can't you send me home today??? Mood:ok Affect:calm, congruent SI: none expressed HI: none expressed VH/AH: no overt signs Delusions: none noted Insight/judgment: impaired x 2 Memory/cog: alert, not oriented to place, month or year nor situation. severe impairment in memory and cognition. Diagnostics Vital Signs (24Hr): Vital Signs - 24 hr 08/06/24 20:00 08/07/24 08:00 Temperature 97.5 F 97.3 F Pulse Rate 77 68 Respiratory Rate 18 18 Blood Pressure 143/81 H 138/75 Pulse Oximetry 99 97 Oxygen Delivery Method Room Air Room Air BMI result Body Mass Index 22.7 Labs 07/29/24 07:29 07/31/24 07:31 Imaging Radiology Impressions: ITS Impressions Carotid Doppler Study 07/21/24 16:26 IMPRESSION: 1. RIGHT: Normal right internal carotid artery without significant atherosclerotic plaque or hemodynamically significant stenosis. 2. LEFT: Normal left internal carotid artery without significant atherosclerotic plaque or hemodynamically significant stenosis. Electronically signed by: Zach Adam MD 07/22/2024 09:13 AM EDT Chest X-Ray 07/23/24 12:15 IMPRESSION: No active pulmonary disease. Electronically signed by: Zach Adam MD 07/23/2024 12:58 PM EDT Medications Medications Current Medications Acetaminophen (Acetaminophen 325 Mg Tablet) 650 mg PO Q6H PRN PRN Reason: Headache/Pain, Scale 1-10 Last Admin: 08/06/24 20:31 Dose: 650 mg Al Hydroxide/Mg Hydroxide (Magnesium Hydrox/Alum Hydrox 30 Ml Oral.Susp) 30 ml PO Q6H PRN PRN Reason: Heartburn/Nausea Albuterol/Ipratropium (Albuterol/Iprat 2.5/0.5mg 3 Ml Ampul.Neb) 3 ml INHALE RQ4H WHILE AWAKE PRN PRN Reason: SOB/wheezing Last Admin: 08/03/24 09:58 Dose: 3 ml Atorvastatin Calcium (Atorvastatin Calcium 20 Mg Tablet) 20 mg PO BEDTIME [facility] Last Admin: 08/06/24 20:23 Dose: 20 mg Divalproex Sodium (Divalproex Sodium Sprinkles 125 Mg Cap.) 250 mg PO BID [facility] Last Admin: 08/06/24 20:23 Dose: 250 mg Fluticasone Propionate (Fluticasone Propionate Nasal 16 Gm [place]) 2 spray NOSTRIL-B DAILY [facility] Last Admin: 08/06/24 09:26 Dose: 2 spray Furosemide (Furosemide 20 Mg Tablet) 20 mg PO DAILY PRN; Protocol PRN Reason: Weight gain of 2 pounds overnight or 5 pounds in one week. Last Admin: 08/04/24 10:19 Dose: 20 mg Guaifenesin/Dextromethorphan (Guaifenesin Dm 600/30 1 Tab Tab.Er.12h) 1 tab PO BID [facility] Last Admin: 08/06/24 20:24 Dose: 1 tab Levothyroxine Sodium (Levothyroxine Sodium 75 Mcg Tablet) 75 mcg PO DAILY@0600 [facility] Last Admin: 08/07/24 05:40 Dose: 75 mcg Lisinopril (Lisinopril 5 Mg Tablet) 5 mg PO DAILY [facility]; Protocol Last Admin: 08/06/24 09:22 Dose: 5 mg Loperamide HCl (Loperamide Hcl 2 Mg Capsule) 2 mg PO Q4H PRN PRN Reason: loose stools Lorazepam (Lorazepam 0.5 Mg Tablet) 0.5 mg PO Q8H PRN PRN Reason: Anxiety Last Admin: 08/04/24 17:14 Dose: 0.5 mg Magnesium Hydroxide (Milk Of Magnesia 30 Ml Oral.Susp) 30 ml PO DAILY PRN PRN Reason: Constipation Last Admin: 07/25/24 09:11 Dose: 30 ml Olanzapine (Olanzapine 2.5 Mg Tablet) 2.5 mg PO BID [facility] Last Admin: 08/06/24 20:23 Dose: 2.5 mg Omeprazole (Omeprazole 20 Mg Capsule.Dr) 20 mg PO DAILY@0630 [facility] Last Admin: 08/07/24 06:14 Dose: 20 mg Timolol Maleate (Timolol Maleate 0.5 % Oph Peg 5 Ml Drbtl) 1 drop EYE-BOTH BID [facility] Last Admin: 08/06/24 20:24 Dose: 1 drop Trazodone HCl (Trazodone Hcl 50 Mg Tablet) 50 mg PO BEDTIME MRX1 PRN PRN Reason: Insomnia Last Admin: 08/06/24 20:31 Dose: 50 mg Vitamin D (Cholecalciferol (Vitamin D3) 25 Mcg Tablet) 50 mcg PO DAILY [facility] Last Admin: 08/06/24 09:23 Dose: 50 mcg Allergies Allergies Allergy/AdvReac Type Severity Reaction Status Date / Time sulfamethoxazole Allergy Unknown Verified 03/03/24 14:32 [From Sulfamethoxazole-Trimethoprim] trimethoprim Allergy Unknown Verified 03/03/24 14:32 [From Sulfamethoxazole-Trimethoprim] Assessment & Plan Assessment & Plan (1) 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 Mascorro is an 79 year-old woman with hx of dementia, advanced stages. She was initially admitted to for management of combative and impulsive behaviors secondary to dementia. She was stabilized on combination of depakote, olanzapine. She had episode of brief change in mental status. No VS abnormalities. She was transferred to medical floor for work up of TIA vs stroke, which was negative. Pt transferred back to continue medication management and stabilization and placement. PLAN 06/30 continue tx. 07/01 continue tx. awaiting placement, financial paperwork not completed to submit application for [employer]. 07/02 continue tx. 07/03 continue tx. 07/06 continue tx. awaiting placement. 07/07 continue tx. 07/08 continue tx. 07/09: no change. continue current mgmt. 07/10: poor sleep overnight of 2 hours. constipation, small BM overnight. continue current mgmt for now. 07/11: Patient remained stable; no change in presentation; continue treatment plan 07/12; no change in presentation; continue treatment but 07/13 continue tx. UA ordered for increase urinary frequency 07/14 continue tx. 07/15 continue tx. 07/16 continue tx. 07/17 seen by hospitalist, depakote was increased 250mg po TID, ammonia checked today wnl. recommend to recheck ammonia with hihger dose and monitor hyponatremia. 07/18: continue current management and treatment plan.Neurology consult pending. 07/19: continue current management and treatment plan. 07/20: continue current management and treatment plan. 07/21 lowered depakote to 250mg po BID. hyponatremia on 07/19, 129, improved today 134. 07/22 continue tx. 07/23 continue tx. 07/24 continue tx. 07/25 continue tx. 07/26 continue tx. 07/27 continue tx. 07/28 continue tx. 07/29 continue tx. 07/30 continue tx. 07/31 continue tx. 08/01: stable. continue current mgmt. 08/02: as for yesterday. 08/03 continue tx. 08/04 continue tx 08/05 continue tx. 08/06 continue tx. 08/07 continue tx. Reason for continued inpatient stay Substantial Risk for: inability to function Time Spent With Patient Time: Total time managing care of this patient today ____ minutes.
[2024-08-07] MEDS: lisinopriL 5 MG TABLET PO (09:39)
[2024-08-07] MEDS: OLANZapine 2.5 MG TABLET PO ×2 (09:39→21:22)
[2024-08-07] MEDS: Cholecalciferol (Vitamin D3) 25 MCG TABLET 50 MCG PO (09:39)
[2024-08-07] MEDS: guaiFENesin DM 600/30 1 TAB TAB.ER.12H PO ×2 (09:39→21:22)
[2024-08-07] MEDS: Fluticasone Propionate Nasal 16 GM SPRAY 2 SPRAY NOSTRIL-B (09:40)
[2024-08-07] MEDS: Divalproex Sodium Sprinkles 125 MG CAP.DR.SPR 250 MG PO ×2 (09:40→21:22)
[2024-08-07] MEDS: timoloL maleate 0.5 % Oph Sol 5 ML DRBTL 1 DROP EYE-BOTH ×2 (09:40→21:23)
[2024-08-07 20:00] VITALS: BP 111/55; PULSE 93; RESP 16; TEMP 36.6; O2SAT 93
[2024-08-07] MEDS: Atorvastatin Calcium 20 MG TABLET PO (21:22)
[2024-08-07] MEDS: traZODone HCL 50 MG TABLET PO (21:22)
[2024-08-08] MEDS: Omeprazole 20 MG CAPSULE.DR PO (05:45)
[2024-08-08] MEDS: Levothyroxine Sodium 75 MCG TABLET PO (05:45)
[2024-08-08 08:05] VITALS: BP 136/71; PULSE 70; RESP 16; TEMP 36.3; O2SAT 96
[2024-08-08] MEDS: Cholecalciferol (Vitamin D3) 25 MCG TABLET 50 MCG PO (08:10)
[2024-08-08] MEDS: Divalproex Sodium Sprinkles 125 MG CAP.DR.SPR 250 MG PO ×2 (08:10→20:20)
[2024-08-08] MEDS: guaiFENesin DM 600/30 1 TAB TAB.ER.12H PO ×2 (08:10→20:20)
[2024-08-08] MEDS: OLANZapine 2.5 MG TABLET PO ×2 (08:10→20:20)
[2024-08-08 08:11] VITALS: BP 136/71
[2024-08-08] MEDS: lisinopriL 5 MG TABLET PO (08:11)
[2024-08-08] MEDS: timoloL maleate 0.5 % Oph Sol 5 ML DRBTL 1 DROP EYE-BOTH ×2 (08:12→21:02)
[2024-08-08] MEDS: Fluticasone Propionate Nasal 16 GM SPRAY 2 SPRAY NOSTRIL-B (08:12)
--- NOTE | 2024-08-08 08:45 | HO.PSYCHPN ---
Subjective Subjective Date of Service: 08/08/24 Reason For Visit: Combative Behaviors Subjective Notes: Conditional Voluntary Healthcare Proxy: Yes Interim History: 79 yo gained 4 lb, was checked after breakfast, but after void- so given lasix x1 no ill effect- except needing to go use br - Pt forgetful to use walker to go to br, but on 1:1 so reminded and supported in this- Slept- continues wih significant memory impairment and decline Medication Compliance: Yes Side effects from medications: No Attending Groups: Intermittent Review of Systems Acute medical concerns: Yes fluid restriction requiring lasix Medical Review of Systems: unchanged (otherwise) Mental Status Exam Mental Status Exam Narrative: dressed, good eye contact, using walker but then reaching for br door without it - 1:1 supported reengaging walker to get into br-safetly- pt at high fall risk - so on 1:1 Diagnostics Vital Signs (24Hr): Vital Signs - 24 hr 08/07/24 20:00 08/08/24 08:11 Temperature 98 F Pulse Rate 93 Respiratory Rate 16 Blood Pressure 111/55 L 136/71 Pulse Oximetry 93 Oxygen Delivery Method Room Air BMI result Body Mass Index 22.7 Labs 07/29/24 07:29 07/31/24 07:31 Imaging Radiology Impressions: ITS Impressions Carotid Doppler Study 07/21/24 16:26 IMPRESSION: 1. RIGHT: Normal right internal carotid artery without significant atherosclerotic plaque or hemodynamically significant stenosis. 2. LEFT: Normal left internal carotid artery without significant atherosclerotic plaque or hemodynamically significant stenosis. Electronically signed by: Zach Adam MD 07/22/2024 09:13 AM EDT RP Chest X-Ray 07/23/24 12:15 IMPRESSION: No active pulmonary disease. Electronically signed by: Zach Adam MD 07/23/2024 12:58 PM EDT RP Medications Medications Current Medications Acetaminophen (Acetaminophen 325 Mg Tablet) 650 mg PO Q6H PRN PRN Reason: Headache/Pain, Scale 1-10 Last Admin: 08/06/24 20:31 Dose: 650 mg Al Hydroxide/Mg Hydroxide (Magnesium Hydrox/Alum Hydrox 30 Ml Oral.Susp) 30 ml PO Q6H PRN PRN Reason: Heartburn/Nausea Albuterol/Ipratropium (Albuterol/Iprat 2.5/0.5mg 3 Ml Ampul.Neb) 3 ml INHALE RQ4H WHILE AWAKE PRN PRN Reason: SOB/wheezing Last Admin: 08/03/24 09:58 Dose: 3 ml Atorvastatin Calcium (Atorvastatin Calcium 20 Mg Tablet) 20 mg PO BEDTIME [facility] Last Admin: 08/07/24 21:22 Dose: 20 mg Divalproex Sodium (Divalproex Sodium Sprinkles 125 Mg ) 250 mg PO BID [facility] Last Admin: 08/08/24 08:10 Dose: 250 mg Fluticasone Propionate (Fluticasone Propionate Nasal 16 Gm [place]) 2 spray NOSTRIL-B DAILY [facility] Last Admin: 08/08/24 08:12 Dose: 2 spray Furosemide (Furosemide 20 Mg Tablet) 20 mg PO DAILY PRN; Protocol PRN Reason: Weight gain of 2 pounds overnight or 5 pounds in one week. Last Admin: 08/04/24 10:19 Dose: 20 mg Guaifenesin/Dextromethorphan (Guaifenesin Dm 600/30 1 Tab Tab.Er.12h) 1 tab PO BID [facility] Last Admin: 08/08/24 08:10 Dose: 1 tab Levothyroxine Sodium (Levothyroxine Sodium 75 Mcg Tablet) 75 mcg PO DAILY@0600 [facility] Last Admin: 08/08/24 05:45 Dose: 75 mcg Lisinopril (Lisinopril 5 Mg Tablet) 5 mg PO DAILY [facility]; Protocol Last Admin: 08/08/24 08:11 Dose: 5 mg Loperamide HCl (Loperamide Hcl 2 Mg Capsule) 2 mg PO Q4H PRN PRN Reason: loose stools Lorazepam (Lorazepam 0.5 Mg Tablet) 0.5 mg PO Q8H PRN PRN Reason: Anxiety Last Admin: 08/04/24 17:14 Dose: 0.5 mg Magnesium Hydroxide (Milk Of Magnesia 30 Ml Oral.Susp) 30 ml PO DAILY PRN PRN Reason: Constipation Last Admin: 07/25/24 09:11 Dose: 30 ml Olanzapine (Olanzapine 2.5 Mg Tablet) 2.5 mg PO BID [facility] Last Admin: 08/08/24 08:10 Dose: 2.5 mg Omeprazole (Omeprazole 20 Mg Capsule.Dr) 20 mg PO DAILY@0630 [facility] Last Admin: 08/08/24 05:45 Dose: 20 mg Timolol Maleate (Timolol Maleate 0.5 % Oph Peg 5 Ml Drbtl) 1 drop EYE-BOTH BID [facility] Last Admin: 08/08/24 08:12 Dose: 1 drop Trazodone HCl (Trazodone Hcl 50 Mg Tablet) 50 mg PO BEDTIME MRX1 PRN PRN Reason: Insomnia Last Admin: 08/07/24 21:22 Dose: 50 mg Vitamin D (Cholecalciferol (Vitamin D3) 25 Mcg Tablet) 50 mcg PO DAILY [facility] Last Admin: 08/08/24 08:10 Dose: 50 mcg Allergies Allergies Allergy/AdvReac Type Severity Reaction Status Date / Time sulfamethoxazole Allergy Unknown Verified 03/03/24 14:32 [From Sulfamethoxazole-Trimethoprim] trimethoprim Allergy Unknown Verified 03/03/24 14:32 [From Sulfamethoxazole-Trimethoprim] Assessment & Plan Assessment & Plan (1) 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 Mascorro is an 79 year-old woman with hx of dementia, advanced stages. She was initially admitted to for management of combative and impulsive behaviors secondary to dementia. She was stabilized on combination of depakote, olanzapine. She had episode of brief change in mental status. No VS abnormalities. She was transferred to medical floor for work up of TIA vs stroke, which was negative. Pt transferred back to continue medication management and stabilization and placement. PLAN 06/30 continue tx. 07/01 continue tx. awaiting placement, financial paperwork not completed to submit application for [employer] 07/02 continue tx. 07/03 continue tx. 07/06 continue tx. awaiting placement. 07/07 continue tx. 07/08 continue tx. 07/09: no change. continue current mgmt. 07/10: poor sleep overnight of 2 hours. constipation, small BM overnight. continue current mgmt for now. 07/11: Patient remained stable; no change in presentation; continue treatment plan 07/12; no change in presentation; continue treatment but 07/13 continue tx. UA ordered for increase urinary frequency 07/14 continue tx. 07/15 continue tx. 07/16 continue tx. 07/17 seen by hospitalist, depakote was increased 250mg po TID, ammonia checked today wnl. recommend to recheck ammonia with hihger dose and monitor hyponatremia. 07/18: continue current management and treatment plan.Neurology consult pending. 07/19: continue current management and treatment plan. 07/20: continue current management and treatment plan. 07/21 lowered depakote to 250mg po BID. hyponatremia on 07/19, 129, improved today 134. 07/22 continue tx. 07/23 continue tx. 07/24 continue tx. 07/25 continue tx. 07/26 continue tx. 07/27 continue tx. 07/28 continue tx. 07/29 continue tx. 07/30 continue tx. 07/31 continue tx. 08/01: stable. continue current mgmt. 08/02: as for yesterday. 08/03 continue tx. 08/04 continue tx 08/05 continue tx. 08/06 continue tx. 08/08 oingoing inability to care for self, 1:1 for safety fall risk, awaiting placement Reason for continued inpatient stay Substantial Risk for: inability to function, rapid decompensation and med/psych decompensation Time Spent With Patient Time: Total time managing care of this patient today ____ minutes.
[2024-08-08 10:12] VITALS: BMI 23.5
[2024-08-08] MEDS: Furosemide 20 MG TABLET PO (10:16)
--- NOTE | 2024-08-08 13:34 | PC.NURSE ---
Weight increase 4lbs since yesterday. Lasix 20mg PRN given as ordered and Dr. Garland notified. No respiratory distress noted.
[2024-08-08] MEDS: LORazepam 0.5 MG TABLET PO (14:52)
[2024-08-08 20:00] VITALS: BP 110/63; PULSE 88; RESP 18; TEMP 37.1; O2SAT 95
[2024-08-08] MEDS: Acetaminophen 325 MG TABLET 650 MG PO (20:20)
[2024-08-08] MEDS: Atorvastatin Calcium 20 MG TABLET PO (20:20)
[2024-08-08] MEDS: traZODone HCL 50 MG TABLET PO (20:20)
[2024-08-09 06:00] VITALS: BMI 23.4
[2024-08-09] MEDS: Omeprazole 20 MG CAPSULE.DR PO (06:32)
[2024-08-09] MEDS: Levothyroxine Sodium 75 MCG TABLET PO (06:32)
[2024-08-09 08:00] VITALS: BP 161/65; PULSE 84; RESP 18; TEMP 36.3; O2SAT 95
[2024-08-09 08:56] VITALS: BP 161/65
[2024-08-09] MEDS: lisinopriL 5 MG TABLET PO (08:56)
[2024-08-09] MEDS: guaiFENesin DM 600/30 1 TAB TAB.ER.12H PO ×2 (08:56→20:49)
[2024-08-09] MEDS: timoloL maleate 0.5 % Oph Sol 5 ML DRBTL 1 DROP EYE-BOTH ×2 (08:57→20:49)
[2024-08-09] MEDS: Divalproex Sodium Sprinkles 125 MG CAP.DR.SPR 250 MG PO ×2 (08:57→20:49)
[2024-08-09] MEDS: Cholecalciferol (Vitamin D3) 25 MCG TABLET 50 MCG PO (08:57)
[2024-08-09] MEDS: OLANZapine 2.5 MG TABLET PO ×2 (08:57→20:49)
[2024-08-09] MEDS: Fluticasone Propionate Nasal 16 GM SPRAY 2 SPRAY NOSTRIL-B (08:57)
--- NOTE | 2024-08-09 09:46 | HO.PSYCHPN ---
Subjective Subjective Date of Service: 08/09/24 Reason For Visit: Combative Behaviors Subjective Notes: Conditional Voluntary Healthcare Proxy: Yes Medical Problems Affecting Mental Status: Yes (ongoing dementia) Interim History: 79 yo with dementia, anxiety, stable with 1:1 due to poor stability and risk of falls- as well as disorganization- sleeping quietly this am - after up for breakfast- Medication Compliance: Yes Side effects from medications: No Attending Groups: Intermittent Review of Systems Acute medical concerns: No Medical Review of Systems: unchanged Mental Status Exam Mental Status Exam Narrative: Patient sleeping Diagnostics Vital Signs (24Hr): Vital Signs - 24 hr 08/08/24 20:00 08/09/24 08:56 Temperature 98.8 F Pulse Rate 88 Respiratory Rate 18 Blood Pressure 110/63 161/65 H Pulse Oximetry 95 Oxygen Delivery Method Room Air BMI result Body Mass Index 23.4 Labs 07/29/24 07:29 07/31/24 07:31 Imaging Radiology Impressions: ITS Impressions Carotid Doppler Study 07/21/24 16:26 IMPRESSION: 1. RIGHT: Normal right internal carotid artery without significant atherosclerotic plaque or hemodynamically significant stenosis. 2. LEFT: Normal left internal carotid artery without significant atherosclerotic plaque or hemodynamically significant stenosis. Electronically signed by: Zach Adam MD 07/22/2024 09:13 AM EDT RP Chest X-Ray 07/23/24 12:15 IMPRESSION: No active pulmonary disease. Electronically signed by: Zach Adam MD 07/23/2024 12:58 PM EDT RP Medications Medications Current Medications Acetaminophen (Acetaminophen 325 Mg Tablet) 650 mg PO Q6H PRN PRN Reason: Headache/Pain, Scale 1-10 Last Admin: 08/08/24 20:20 Dose: 650 mg Al Hydroxide/Mg Hydroxide (Magnesium Hydrox/Alum Hydrox 30 Ml Oral.Susp) 30 ml PO Q6H PRN PRN Reason: Heartburn/Nausea Albuterol/Ipratropium (Albuterol/Iprat 2.5/0.5mg 3 Ml Ampul.Neb) 3 ml INHALE RQ4H WHILE AWAKE PRN PRN Reason: SOB/wheezing Last Admin: 08/03/24 09:58 Dose: 3 ml Atorvastatin Calcium (Atorvastatin Calcium 20 Mg Tablet) 20 mg PO BEDTIME [facility] Last Admin: 08/08/24 20:20 Dose: 20 mg Divalproex Sodium (Divalproex Sodium Sprinkles 125 Mg Camilo.) 250 mg PO BID [facility] Last Admin: 08/09/24 08:57 Dose: 250 mg Fluticasone Propionate (Fluticasone Propionate Nasal 16 Gm [place]) 2 spray NOSTRIL-B DAILY [facility] Last Admin: 08/09/24 08:57 Dose: 2 spray Furosemide (Furosemide 20 Mg Tablet) 20 mg PO DAILY PRN; Protocol PRN Reason: Weight gain of 2 pounds overnight or 5 pounds in one week. Last Admin: 08/08/24 10:16 Dose: 20 mg Guaifenesin/Dextromethorphan (Guaifenesin Dm 600/30 1 Tab Tab.Er.12h) 1 tab PO BID [facility] Last Admin: 08/09/24 08:56 Dose: 1 tab Levothyroxine Sodium (Levothyroxine Sodium 75 Mcg Tablet) 75 mcg PO DAILY@0600 [facility] Last Admin: 08/09/24 06:32 Dose: 75 mcg Lisinopril (Lisinopril 5 Mg Tablet) 5 mg PO DAILY [facility]; Protocol Last Admin: 08/09/24 08:56 Dose: 5 mg Loperamide HCl (Loperamide Hcl 2 Mg Capsule) 2 mg PO Q4H PRN PRN Reason: loose stools Lorazepam (Lorazepam 0.5 Mg Tablet) 0.5 mg PO Q8H PRN PRN Reason: Anxiety Last Admin: 08/08/24 14:52 Dose: 0.5 mg Magnesium Hydroxide (Milk Of Magnesia 30 Ml Oral.Susp) 30 ml PO DAILY PRN PRN Reason: Constipation Last Admin: 07/25/24 09:11 Dose: 30 ml Olanzapine (Olanzapine 2.5 Mg Tablet) 2.5 mg PO BID [facility] Last Admin: 08/09/24 08:57 Dose: 2.5 mg Omeprazole (Omeprazole 20 Mg Capsule.Dr) 20 mg PO DAILY@0630 [facility] Last Admin: 08/09/24 06:32 Dose: 20 mg Timolol Maleate (Timolol Maleate 0.5 % Oph Peg 5 Ml Drbtl) 1 drop EYE-BOTH BID [facility] Last Admin: 08/09/24 08:57 Dose: 1 drop Trazodone HCl (Trazodone Hcl 50 Mg Tablet) 50 mg PO BEDTIME MRX1 PRN PRN Reason: Insomnia Last Admin: 08/08/24 20:20 Dose: 50 mg Vitamin D (Cholecalciferol (Vitamin D3) 25 Mcg Tablet) 50 mcg PO DAILY [facility] Last Admin: 08/09/24 08:57 Dose: 50 mcg Allergies Allergies Allergy/AdvReac Type Severity Reaction Status Date / Time sulfamethoxazole Allergy Unknown Verified 03/03/24 14:32 [From Sulfamethoxazole-Trimethoprim] trimethoprim Allergy Unknown Verified 03/03/24 14:32 [From Sulfamethoxazole-Trimethoprim] Assessment & Plan Assessment & Plan (1) 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 Mascorro is an 79 year-old woman with hx of dementia, advanced stages. She was initially admitted to for management of combative and impulsive behaviors secondary to dementia. She was stabilized on combination of depakote, olanzapine. She had episode of brief change in mental status. No VS abnormalities. She was transferred to medical floor for work up of TIA vs stroke, which was negative. Pt transferred back to continue medication management and stabilization and placement. PLAN 06/30 continue tx. 07/01 continue tx. awaiting placement, financial paperwork not completed to submit application for [employer]. 07/02 continue tx. 07/03 continue tx. 07/06 continue tx. awaiting placement. 07/07 continue tx. 07/08 continue tx. 07/09: no change. continue current mgmt. 07/10: poor sleep overnight of 2 hours. constipation, small BM overnight. continue current mgmt for now. 07/11: Patient remained stable; no change in presentation; continue treatment plan 07/12; no change in presentation; continue treatment but 07/13 continue tx. UA ordered for increase urinary frequency 07/14 continue tx. 07/15 continue tx. 07/16 continue tx. 07/17 seen by hospitalist, depakote was increased 250mg po TID, ammonia checked today wnl. recommend to recheck ammonia with hihger dose and monitor hyponatremia. 07/18: continue current management and treatment plan.Neurology consult pending. 07/19: continue current management and treatment plan. 07/20: continue current management and treatment plan. 07/21 lowered depakote to 250mg po BID. hyponatremia on 07/19, 129, improved today 134. 07/22 continue tx. 07/23 continue tx. 07/24 continue tx. 07/25 continue tx. 07/26 continue tx. 07/27 continue tx. 07/28 continue tx. 07/29 continue tx. 07/30 continue tx. 07/31 continue tx. 08/01: stable. continue current mgmt. 08/02: as for yesterday. 08/03 continue tx. 08/04 continue tx 08/05 continue tx. 08/06 continue tx. 08/08 oingoing inability to care for self, 1:1 for safety fall risk, awaiting placement 08/09- on 1'1 for fall risk- sleeping in bed- after up this am CTP Reason for continued inpatient stay Substantial Risk for: rapid decompensation and med/psych decompensation Time Spent With Patient Time: Total time managing care of this patient today ____ minutes.
[2024-08-09 20:00] VITALS: BP 106/53; PULSE 101; RESP 16; TEMP 36.4; O2SAT 92
[2024-08-09] MEDS: Atorvastatin Calcium 20 MG TABLET PO (20:49)
[2024-08-09] MEDS: Acetaminophen 325 MG TABLET 650 MG PO (20:52)
[2024-08-09] MEDS: traZODone HCL 50 MG TABLET PO (20:52)
[2024-08-10 06:00] VITALS: BMI 29.1
[2024-08-10] MEDS: Omeprazole 20 MG CAPSULE.DR PO (06:10)
[2024-08-10] MEDS: Levothyroxine Sodium 75 MCG TABLET PO (06:17)
[2024-08-10 08:00] VITALS: BP 136/87; PULSE 84; RESP 16; TEMP 36.2; O2SAT 96
--- NOTE | 2024-08-10 08:50 | P.PNPSI_ITS ---
Subjective Subjective Date of Service: 08/10/24 Reason For Visit: Combative Behaviors Interim History: Pt slept through the night. She has been on close observation since last 08/06, ambulating with walker. She is eating and sleeping well. asks about going home. VS stable. Review of Systems Review of Systems cough,congestion, followed by hospitalist service Yes Unobtainable due to mental status Mental Status Exam Mental Status Exam Narrative: Appearance: casually groomed in bed Behavior: calm Psychomotor: no agitation or retardation noted Speech: garbled, difficult to understand TP: concrete TC: why can't you send me home today??? Mood:ok Affect:calm, congruent SI: none expressed HI: none expressed VH/AH: no overt signs Delusions: none noted Insight/judgment: impaired x 2 Memory/cog: alert, not oriented to place, month or year nor situation. severe impairment in memory and cognition. Diagnostics Vital Signs (24Hr): Vital Signs - 24 hr 08/09/24 08:56 08/09/24 20:00 08/10/24 08:00 Temperature 97.5 F 97.2 F Pulse Rate 101 H 84 Respiratory Rate 16 16 Blood Pressure 161/65 H 106/53 L 136/87 Pulse Oximetry 92 96 Oxygen Delivery Method Room Air Room Air BMI result Body Mass Index 29.1 Labs 07/29/24 07:29 07/31/24 07:31 Imaging Radiology Impressions: ITS Impressions Carotid Doppler Study 07/21/24 16:26 IMPRESSION: 1. RIGHT: Normal right internal carotid artery without significant atherosclerotic plaque or hemodynamically significant stenosis. 2. LEFT: Normal left internal carotid artery without significant atherosclerotic plaque or hemodynamically significant stenosis. Electronically signed by: Zach Adam MD 07/22/2024 09:13 AM EDT Chest X-Ray 07/23/24 12:15 IMPRESSION: No active pulmonary disease. Electronically signed by: Zach Adam MD 07/23/2024 12:58 PM EDT Medications Medications Current Medications Acetaminophen (Acetaminophen 325 Mg Tablet) 650 mg PO Q6H PRN PRN Reason: Headache/Pain, Scale 1-10 Last Admin: 08/09/24 20:52 Dose: 650 mg Al Hydroxide/Mg Hydroxide (Magnesium Hydrox/Alum Hydrox 30 Ml Oral.Susp) 30 ml PO Q6H PRN PRN Reason: Heartburn/Nausea Albuterol/Ipratropium (Albuterol/Iprat 2.5/0.5mg 3 Ml Ampul.Neb) 3 ml INHALE RQ4H WHILE AWAKE PRN PRN Reason: SOB/wheezing Last Admin: 08/03/24 09:58 Dose: 3 ml Atorvastatin Calcium (Atorvastatin Calcium 20 Mg Tablet) 20 mg PO BEDTIME [facility] Last Admin: 08/09/24 20:49 Dose: 20 mg Divalproex Sodium (Divalproex Sodium Sprinkles 125 Mg Cap.) 250 mg PO BID [facility] Last Admin: 08/09/24 20:49 Dose: 250 mg Fluticasone Propionate (Fluticasone Propionate Nasal 16 Gm [place]) 2 spray NOSTRIL-B DAILY [facility] Last Admin: 08/09/24 08:57 Dose: 2 spray Furosemide (Furosemide 20 Mg Tablet) 20 mg PO DAILY PRN; Protocol PRN Reason: Weight gain of 2 pounds overnight or 5 pounds in one week. Last Admin: 08/08/24 10:16 Dose: 20 mg Guaifenesin/Dextromethorphan (Guaifenesin Dm 600/30 1 Tab Tab.Er.12h) 1 tab PO BID [facility] Last Admin: 08/09/24 20:49 Dose: 1 tab Levothyroxine Sodium (Levothyroxine Sodium 75 Mcg Tablet) 75 mcg PO DAILY@0600 [facility] Last Admin: 08/10/24 06:17 Dose: 75 mcg Lisinopril (Lisinopril 5 Mg Tablet) 5 mg PO DAILY [facility]; Protocol Last Admin: 08/09/24 08:56 Dose: 5 mg Loperamide HCl (Loperamide Hcl 2 Mg Capsule) 2 mg PO Q4H PRN PRN Reason: loose stools Lorazepam (Lorazepam 0.5 Mg Tablet) 0.5 mg PO Q8H PRN PRN Reason: Anxiety Last Admin: 08/08/24 14:52 Dose: 0.5 mg Magnesium Hydroxide (Milk Of Magnesia 30 Ml Oral.Susp) 30 ml PO DAILY PRN PRN Reason: Constipation Last Admin: 07/25/24 09:11 Dose: 30 ml Olanzapine (Olanzapine 2.5 Mg Tablet) 2.5 mg PO BID [facility] Last Admin: 08/09/24 20:49 Dose: 2.5 mg Omeprazole (Omeprazole 20 Mg Capsule.Dr) 20 mg PO DAILY@0630 [facility] Last Admin: 08/10/24 06:10 Dose: 20 mg Timolol Maleate (Timolol Maleate 0.5 % Oph Peg 5 Ml Drbtl) 1 drop EYE-BOTH BID [facility] Last Admin: 08/09/24 20:49 Dose: 1 drop Trazodone HCl (Trazodone Hcl 50 Mg Tablet) 50 mg PO BEDTIME MRX1 PRN PRN Reason: Insomnia Last Admin: 08/09/24 20:52 Dose: 50 mg Vitamin D (Cholecalciferol (Vitamin D3) 25 Mcg Tablet) 50 mcg PO DAILY [facility] Last Admin: 08/09/24 08:57 Dose: 50 mcg Allergies Allergies Allergy/AdvReac Type Severity Reaction Status Date / Time sulfamethoxazole Allergy Unknown Verified 03/03/24 14:32 [From Sulfamethoxazole-Trimethoprim] trimethoprim Allergy Unknown Verified 03/03/24 14:32 [From Sulfamethoxazole-Trimethoprim] Assessment & Plan Assessment & Plan (1) 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 Mascorro is an 79 year-old woman with hx of dementia, advanced stages. She was initially admitted to for management of combative and impulsive behaviors secondary to dementia. She was stabilized on combination of depakote, olanzapine. She had episode of brief change in mental status. No VS abnormalities. She was transferred to medical floor for work up of TIA vs stroke, which was negative. Pt transferred back to continue medication management and stabilization and placement. PLAN 08/10- she has been on close observation since 08/06- safely ambulating with walker. no behavioral concerns. vS stable. Reason for continued inpatient stay Substantial Risk for: inability to function Time Spent With Patient Time: Total time managing care of this patient today ____ minutes.
[2024-08-10] MEDS: OLANZapine 2.5 MG TABLET PO ×2 (09:18→20:40)
[2024-08-10] MEDS: Cholecalciferol (Vitamin D3) 25 MCG TABLET 50 MCG PO (09:18)
[2024-08-10] MEDS: Fluticasone Propionate Nasal 16 GM SPRAY 2 SPRAY NOSTRIL-B (09:18)
[2024-08-10] MEDS: timoloL maleate 0.5 % Oph Sol 5 ML DRBTL 1 DROP EYE-BOTH ×2 (09:18→20:40)
[2024-08-10] MEDS: Divalproex Sodium Sprinkles 125 MG CAP.DR.SPR 250 MG PO ×2 (09:18→20:40)
[2024-08-10] MEDS: lisinopriL 5 MG TABLET PO (09:18)
[2024-08-10] MEDS: guaiFENesin DM 600/30 1 TAB TAB.ER.12H PO ×2 (09:37→20:40)
[2024-08-10 20:00] VITALS: BP 102/50; PULSE 63; RESP 16; TEMP 36.4; O2SAT 93
[2024-08-10] MEDS: Atorvastatin Calcium 20 MG TABLET PO (20:40)
[2024-08-11 06:00] VITALS: BMI 22.3
[2024-08-11] MEDS: Levothyroxine Sodium 75 MCG TABLET PO (06:42)
[2024-08-11] MEDS: Omeprazole 20 MG CAPSULE.DR PO (06:42)
[2024-08-11 08:37] VITALS: BP 128/70; PULSE 68; RESP 16; TEMP 36.4; O2SAT 96
--- NOTE | 2024-08-11 09:15 | HO.PSYCHPN ---
Subjective Subjective Date of Service: 08/11/24 Reason For Visit: Combative Behaviors Subjective Notes: Conditional Voluntary Healthcare Proxy: Yes Interim History: Pt slept through night. She continues to ambulate with a walker. VS stable. Taking medications as prescribed. Review of Systems Review of Systems cough,congestion, followed by hospitalist service Yes Unobtainable due to mental status Mental Status Exam Mental Status Exam Narrative: Appearance: casually groomed in bed Behavior: calm Psychomotor: no agitation or retardation noted Speech: garbled, difficult to understand TP: concrete TC: can I go home? Mood:ok Affect:calm, congruent SI: none expressed HI: none expressed VH/AH: no overt signs Delusions: none noted Insight/judgment: impaired x 2 Memory/cog: alert, not oriented to place, month or year nor situation. severe impairment in memory and cognition. Diagnostics Vital Signs (24Hr): Vital Signs - 24 hr 08/10/24 20:00 Temperature 97.6 F Pulse Rate 63 Respiratory Rate 16 Blood Pressure 102/50 L Pulse Oximetry 93 Oxygen Delivery Method Room Air BMI result Body Mass Index 22.3 Labs 07/29/24 07:29 07/31/24 07:31 Imaging Radiology Impressions: ITS Impressions Carotid Doppler Study 07/21/24 16:26 IMPRESSION: 1. RIGHT: Normal right internal carotid artery without significant atherosclerotic plaque or hemodynamically significant stenosis. 2. LEFT: Normal left internal carotid artery without significant atherosclerotic plaque or hemodynamically significant stenosis. Electronically signed by: Zach Adam MD 07/22/2024 09:13 AM EDT Chest X-Ray 07/23/24 12:15 IMPRESSION: No active pulmonary disease. Electronically signed by: Zach Adam MD 07/23/2024 12:58 PM EDT Medications Medications Current Medications Acetaminophen (Acetaminophen 325 Mg Tablet) 650 mg PO Q6H PRN PRN Reason: Headache/Pain, Scale 1-10 Last Admin: 08/09/24 20:52 Dose: 650 mg Al Hydroxide/Mg Hydroxide (Magnesium Hydrox/Alum Hydrox 30 Ml Oral.Susp) 30 ml PO Q6H PRN PRN Reason: Heartburn/Nausea Albuterol/Ipratropium (Albuterol/Iprat 2.5/0.5mg 3 Ml Ampul.Neb) 3 ml INHALE RQ4H WHILE AWAKE PRN PRN Reason: SOB/wheezing Last Admin: 08/03/24 09:58 Dose: 3 ml Atorvastatin Calcium (Atorvastatin Calcium 20 Mg Tablet) 20 mg PO BEDTIME [facility] Last Admin: 08/10/24 20:40 Dose: 20 mg Divalproex Sodium (Divalproex Sodium Sprinkles 125 Mg Cap.) 250 mg PO BID [facility] Last Admin: 08/10/24 20:40 Dose: 250 mg Fluticasone Propionate (Fluticasone Propionate Nasal 16 Gm [place]) 2 spray NOSTRIL-B DAILY [facility] Last Admin: 08/10/24 09:18 Dose: 2 spray Furosemide (Furosemide 20 Mg Tablet) 20 mg PO DAILY PRN; Protocol PRN Reason: Weight gain of 2 pounds overnight or 5 pounds in one week. Last Admin: 08/08/24 10:16 Dose: 20 mg Levothyroxine Sodium (Levothyroxine Sodium 75 Mcg Tablet) 75 mcg PO DAILY@0600 [facility] Last Admin: 08/11/24 06:42 Dose: 75 mcg Lisinopril (Lisinopril 5 Mg Tablet) 5 mg PO DAILY [facility]; Protocol Last Admin: 08/10/24 09:18 Dose: 5 mg Loperamide HCl (Loperamide Hcl 2 Mg Capsule) 2 mg PO Q4H PRN PRN Reason: loose stools Lorazepam (Lorazepam 0.5 Mg Tablet) 0.5 mg PO Q8H PRN PRN Reason: Anxiety Last Admin: 08/08/24 14:52 Dose: 0.5 mg Magnesium Hydroxide (Milk Of Magnesia 30 Ml Oral.Susp) 30 ml PO DAILY PRN PRN Reason: Constipation Last Admin: 07/25/24 09:11 Dose: 30 ml Olanzapine (Olanzapine 2.5 Mg Tablet) 2.5 mg PO BID [facility] Last Admin: 08/10/24 20:40 Dose: 2.5 mg Omeprazole (Omeprazole 20 Mg Capsule.) 20 mg PO DAILY@0630 [facility] Last Admin: 08/11/24 06:42 Dose: 20 mg Timolol Maleate (Timolol Maleate 0.5 % Oph Peg 5 Ml Drbtl) 1 drop EYE-BOTH BID [facility] Last Admin: 08/10/24 20:40 Dose: 1 drop Trazodone HCl (Trazodone Hcl 50 Mg Tablet) 50 mg PO BEDTIME MRX1 PRN PRN Reason: Insomnia Last Admin: 08/09/24 20:52 Dose: 50 mg Vitamin D (Cholecalciferol (Vitamin D3) 25 Mcg Tablet) 50 mcg PO DAILY [facility] Last Admin: 08/10/24 09:18 Dose: 50 mcg Allergies Allergies Allergy/AdvReac Type Severity Reaction Status Date / Time sulfamethoxazole Allergy Unknown Verified 03/03/24 14:32 [From Sulfamethoxazole-Trimethoprim] trimethoprim Allergy Unknown Verified 03/03/24 14:32 [From Sulfamethoxazole-Trimethoprim] Assessment & Plan Assessment & Plan (1) 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 Mascorro is an 79 year-old woman with hx of dementia, advanced stages. She was initially admitted to [facility] for management of combative and impulsive behaviors secondary to dementia. She was stabilized on combination of depakote, olanzapine. She had episode of brief change in mental status. No VS abnormalities. She was transferred to medical floor for work up of TIA vs stroke, which was negative. Pt transferred back to continue medication management and stabilization and placement. PLAN 08/10- she has been on close observation since 08/06- safely ambulating with walker. no behavioral concerns. vS stable. 08/11 continue tx. Reason for continued inpatient stay Substantial Risk for: inability to function Time Spent With Patient Time: Total time managing care of this patient today ____ minutes.
[2024-08-11] MEDS: Cholecalciferol (Vitamin D3) 25 MCG TABLET 50 MCG PO (09:29)
[2024-08-11] MEDS: timoloL maleate 0.5 % Oph Sol 5 ML DRBTL 1 DROP EYE-BOTH ×2 (09:29→20:20)
[2024-08-11] MEDS: Fluticasone Propionate Nasal 16 GM SPRAY 2 SPRAY NOSTRIL-B (09:29)
[2024-08-11] MEDS: lisinopriL 5 MG TABLET PO (09:30)
[2024-08-11] MEDS: Divalproex Sodium Sprinkles 125 MG CAP.DR.SPR 250 MG PO ×2 (09:30→20:20)
[2024-08-11] MEDS: OLANZapine 2.5 MG TABLET PO ×2 (09:31→20:20)
[2024-08-11 20:00] VITALS: BP 114/55; PULSE 91; RESP 18; TEMP 36.5; O2SAT 94
[2024-08-11] MEDS: Atorvastatin Calcium 20 MG TABLET PO (20:20)
[2024-08-12 06:00] VITALS: BMI 23.4
[2024-08-12] MEDS: Levothyroxine Sodium 75 MCG TABLET PO (06:10)
[2024-08-12] MEDS: Omeprazole 20 MG CAPSULE.DR PO (06:10)
[2024-08-12 08:00] VITALS: BP 130/72; PULSE 69; RESP 16; TEMP 36.4
[2024-08-12] MEDS: Cholecalciferol (Vitamin D3) 25 MCG TABLET 50 MCG PO (08:53)
[2024-08-12] MEDS: OLANZapine 2.5 MG TABLET PO ×2 (08:54→21:03)
[2024-08-12] MEDS: lisinopriL 5 MG TABLET PO (08:54)
[2024-08-12] MEDS: Fluticasone Propionate Nasal 16 GM SPRAY 2 SPRAY NOSTRIL-B (08:54)
[2024-08-12] MEDS: timoloL maleate 0.5 % Oph Sol 5 ML DRBTL 1 DROP EYE-BOTH ×2 (08:54→21:45)
[2024-08-12] MEDS: Divalproex Sodium Sprinkles 125 MG CAP.DR.SPR 250 MG PO ×2 (08:54→21:03)
[2024-08-12] MEDS: Furosemide 20 MG TABLET PO (09:14)
[2024-08-12 20:00] VITALS: BP 104/60; PULSE 103; TEMP 36.7; O2SAT 95
--- NOTE | 2024-08-12 20:39 | P.PNPSI_ITS ---
Subjective Subjective Date of Service: 08/12/24 Reason For Visit: Combative Behaviors Subjective Notes: Conditional Voluntary Interim History: Pt slept through night. She continues to ambulate with a walker. VS stable. Taking medications as prescribed. Review of Systems Review of Systems cough,congestion, followed by hospitalist service Yes Unobtainable due to mental status Mental Status Exam Mental Status Exam Narrative: Appearance: casually groomed in bed Behavior: calm Psychomotor: no agitation or retardation noted Speech: garbled, difficult to understand TP: concrete TC: can I go home? Mood:ok Affect:calm, congruent SI: none expressed HI: none expressed VH/AH: no overt signs Delusions: none noted Insight/judgment: impaired x 2 Memory/cog: alert, not oriented to place, month or year nor situation. severe impairment in memory and cognition. Diagnostics Vital Signs (24Hr): Vital Signs - 24 hr 08/12/24 08:00 08/12/24 20:00 Temperature 97.5 F 98.1 F Pulse Rate 69 103 H Respiratory Rate 16 Blood Pressure 130/72 104/60 Pulse Oximetry 95 Oxygen Delivery Method Room Air BMI result Body Mass Index 23.4 Labs 07/29/24 07:29 07/31/24 07:31 Imaging Radiology Impressions: ITS Impressions Carotid Doppler Study 07/21/24 16:26 IMPRESSION: 1. RIGHT: Normal right internal carotid artery without significant atherosclerotic plaque or hemodynamically significant stenosis. 2. LEFT: Normal left internal carotid artery without significant atherosclerotic plaque or hemodynamically significant stenosis. Electronically signed by: Zach Adam MD 07/22/2024 09:13 AM EDT Chest X-Ray 07/23/24 12:15 IMPRESSION: No active pulmonary disease. Electronically signed by: Zach Adam MD 07/23/2024 12:58 PM EDT RP Medications Medications Current Medications Acetaminophen (Acetaminophen 325 Mg Tablet) 650 mg PO Q6H PRN PRN Reason: Headache/Pain, Scale 1-10 Last Admin: 08/09/24 20:52 Dose: 650 mg Al Hydroxide/Mg Hydroxide (Magnesium Hydrox/Alum Hydrox 30 Ml Oral.Susp) 30 ml PO Q6H PRN PRN Reason: Heartburn/Nausea Albuterol/Ipratropium (Albuterol/Iprat 2.5/0.5mg 3 Ml Ampul.Neb) 3 ml INHALE RQ4H WHILE AWAKE PRN PRN Reason: SOB/wheezing Last Admin: 08/03/24 09:58 Dose: 3 ml Atorvastatin Calcium (Atorvastatin Calcium 20 Mg Tablet) 20 mg PO BEDTIME [facility] Last Admin: 08/11/24 20:20 Dose: 20 mg Divalproex Sodium (Divalproex Sodium Sprinkles 125 Mg Cap.) 250 mg PO BID [facility] Last Admin: 08/12/24 08:54 Dose: 250 mg Fluticasone Propionate (Fluticasone Propionate Nasal 16 Gm [place]) 2 spray NOSTRIL-B DAILY [facility] Last Admin: 08/12/24 08:54 Dose: 2 spray Furosemide (Furosemide 20 Mg Tablet) 20 mg PO DAILY PRN; Protocol PRN Reason: Weight gain of 2 pounds overnight or 5 pounds in one week. Last Admin: 08/12/24 09:14 Dose: 20 mg Levothyroxine Sodium (Levothyroxine Sodium 75 Mcg Tablet) 75 mcg PO DAILY@0600 [facility] Last Admin: 08/12/24 06:10 Dose: 75 mcg Lisinopril (Lisinopril 5 Mg Tablet) 5 mg PO DAILY [facility]; Protocol Last Admin: 08/12/24 08:54 Dose: 5 mg Loperamide HCl (Loperamide Hcl 2 Mg Capsule) 2 mg PO Q4H PRN PRN Reason: loose stools Lorazepam (Lorazepam 0.5 Mg Tablet) 0.5 mg PO Q8H PRN PRN Reason: Anxiety Last Admin: 08/08/24 14:52 Dose: 0.5 mg Magnesium Hydroxide (Milk Of Magnesia 30 Ml Oral.Susp) 30 ml PO DAILY PRN PRN Reason: Constipation Last Admin: 07/25/24 09:11 Dose: 30 ml Olanzapine (Olanzapine 2.5 Mg Tablet) 2.5 mg PO BID [facility] Last Admin: 08/12/24 08:54 Dose: 2.5 mg Omeprazole (Omeprazole 20 Mg Capsule.Dr) 20 mg PO DAILY@0630 [facility] Last Admin: 08/12/24 06:10 Dose: 20 mg Timolol Maleate (Timolol Maleate 0.5 % Oph Peg 5 Ml Drbtl) 1 drop EYE-BOTH BID [facility] Last Admin: 08/12/24 08:54 Dose: 1 drop Trazodone HCl (Trazodone Hcl 50 Mg Tablet) 50 mg PO BEDTIME MRX1 PRN PRN Reason: Insomnia Last Admin: 08/09/24 20:52 Dose: 50 mg Vitamin D (Cholecalciferol (Vitamin D3) 25 Mcg Tablet) 50 mcg PO DAILY [facility] Last Admin: 08/12/24 08:53 Dose: 50 mcg Allergies Allergies Allergy/AdvReac Type Severity Reaction Status Date / Time sulfamethoxazole (From Allergy Unknown Verified 03/03/24 14:32 Sulfamethoxazole-Trimethoprim) trimethoprim (From Allergy Unknown Verified 03/03/24 14:32 Sulfamethoxazole-Trimethoprim) Assessment & Plan Assessment & Plan (1) 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 Mascorro is an 79 year-old woman with hx of dementia, advanced stages. She was initially admitted to [facility] for management of combative and impulsive behaviors secondary to dementia. She was stabilized on combination of depakote, olanzapine. She had episode of brief change in mental status. No VS abnormalities. She was transferred to medical floor for work up of TIA vs stroke, which was negative. Pt transferred back to continue medication management and stabilization and placement. PLAN 08/10- she has been on close observation since 08/06- safely ambulating with walker. no behavioral concerns. vS stable. 08/11 continue tx. 08/12 continue tx. Reason for continued inpatient stay Substantial Risk for: inability to function Time Spent With Patient Time: Total time managing care of this patient today ____ minutes.
[2024-08-12] MEDS: Atorvastatin Calcium 20 MG TABLET PO (21:03)
[2024-08-12] MEDS: traZODone HCL 50 MG TABLET PO (21:06)
[2024-08-12] MEDS: Acetaminophen 325 MG TABLET 650 MG PO (21:06)
[2024-08-13 03:04] VITALS: BP 110/58; PULSE 66; RESP 16; TEMP 36.3; O2SAT 93
[2024-08-13] MEDS: Levothyroxine Sodium 75 MCG TABLET PO (05:54)
[2024-08-13 06:00] VITALS: BMI 23.9
[2024-08-13] MEDS: Omeprazole 20 MG CAPSULE.DR PO (06:25)
[2024-08-13 08:00] VITALS: BP 118/69; PULSE 79; RESP 16; TEMP 36.1; O2SAT 95
[2024-08-13] MEDS: Cholecalciferol (Vitamin D3) 25 MCG TABLET 50 MCG PO (08:41)
[2024-08-13] MEDS: Divalproex Sodium Sprinkles 125 MG CAP.DR.SPR 250 MG PO ×2 (08:41→20:21)
[2024-08-13] MEDS: OLANZapine 2.5 MG TABLET PO ×2 (08:41→20:20)
[2024-08-13] MEDS: lisinopriL 5 MG TABLET PO (08:41)
[2024-08-13] MEDS: Furosemide 20 MG TABLET PO (08:42)
[2024-08-13] MEDS: Fluticasone Propionate Nasal 16 GM SPRAY 2 SPRAY NOSTRIL-B (08:45)
[2024-08-13] MEDS: timoloL maleate 0.5 % Oph Sol 5 ML DRBTL 1 DROP EYE-BOTH ×2 (08:45→20:21)
[2024-08-13 20:00] VITALS: BP 104/60; PULSE 106; RESP 16; TEMP 36.4; O2SAT 92
[2024-08-13] MEDS: traZODone HCL 50 MG TABLET PO (20:20)
[2024-08-13] MEDS: Atorvastatin Calcium 20 MG TABLET PO (20:20)
[2024-08-13] MEDS: Acetaminophen 325 MG TABLET 650 MG PO (20:21)
--- NOTE | 2024-08-13 21:39 | P.PNPSI_ITS ---
Subjective Subjective Date of Service: 08/13/24 Reason For Visit: Combative Behaviors Subjective Notes: Conditional Voluntary Healthcare Proxy: Yes Interim History: Pt slept through night. She continues to ambulate with a walker. VS stable. Taking medications as prescribed. Review of Systems Review of Systems cough,congestion, followed by hospitalist service Yes Unobtainable due to mental status Mental Status Exam Mental Status Exam Narrative: Appearance: casually groomed in bed Behavior: calm Psychomotor: no agitation or retardation noted Speech: garbled, difficult to understand TP: concrete TC: can I go home? Mood:ok Affect:calm, congruent SI: none expressed HI: none expressed VH/AH: no overt signs Delusions: none noted Insight/judgment: impaired x 2 Memory/cog: alert, not oriented to place, month or year nor situation. severe impairment in memory and cognition. Diagnostics Vital Signs (24Hr): Vital Signs - 24 hr 08/13/24 03:04 08/13/24 08:00 08/13/24 20:00 Temperature 97.3 F 97.0 F 97.5 F Pulse Rate 66 79 106 H Respiratory Rate 16 16 16 Blood Pressure 110/58 L 118/69 104/60 Pulse Oximetry 93 95 92 Oxygen Delivery Method Room Air Room Air Room Air BMI result Body Mass Index 23.9 Labs 07/29/24 07:29 07/31/24 07:31 Imaging Radiology Impressions: ITS Impressions Carotid Doppler Study 07/21/24 16:26 IMPRESSION: 1. RIGHT: Normal right internal carotid artery without significant atherosclerotic plaque or hemodynamically significant stenosis. 2. LEFT: Normal left internal carotid artery without significant atherosclerotic plaque or hemodynamically significant stenosis. Electronically signed by: Zach Adam MD 07/22/2024 09:13 AM EDT Chest X-Ray 07/23/24 12:15 IMPRESSION: No active pulmonary disease. Electronically signed by: Zach Adam MD 07/23/2024 12:58 PM EDT Medications Medications Current Medications Acetaminophen (Acetaminophen 325 Mg Tablet) 650 mg PO Q6H PRN PRN Reason: Headache/Pain, Scale 1-10 Last Admin: 08/13/24 20:21 Dose: 650 mg Al Hydroxide/Mg Hydroxide (Magnesium Hydrox/Alum Hydrox 30 Ml Oral.Susp) 30 ml PO Q6H PRN PRN Reason: Heartburn/Nausea Albuterol/Ipratropium (Albuterol/Iprat 2.5/0.5mg 3 Ml Ampul.Neb) 3 ml INHALE RQ4H WHILE AWAKE PRN PRN Reason: SOB/wheezing Last Admin: 08/03/24 09:58 Dose: 3 ml Atorvastatin Calcium (Atorvastatin Calcium 20 Mg Tablet) 20 mg PO BEDTIME [facility] Last Admin: 08/13/24 20:20 Dose: 20 mg Divalproex Sodium (Divalproex Sodium Sprinkles 125 Mg Cap.) 250 mg PO BID [facility] Last Admin: 08/13/24 20:21 Dose: 250 mg Fluticasone Propionate (Fluticasone Propionate Nasal 16 Gm [place]) 2 spray NOSTRIL-B DAILY [facility] Last Admin: 08/13/24 08:45 Dose: 2 spray Furosemide (Furosemide 20 Mg Tablet) 20 mg PO DAILY PRN; Protocol PRN Reason: Weight gain of 2 pounds overnight or 5 pounds in one week. Last Admin: 08/13/24 08:42 Dose: 20 mg Levothyroxine Sodium (Levothyroxine Sodium 75 Mcg Tablet) 75 mcg PO DAILY@0600 [facility] Last Admin: 08/13/24 05:54 Dose: 75 mcg Lisinopril (Lisinopril 5 Mg Tablet) 5 mg PO DAILY [facility]; Protocol Last Admin: 08/13/24 08:41 Dose: 5 mg Loperamide HCl (Loperamide Hcl 2 Mg Capsule) 2 mg PO Q4H PRN PRN Reason: loose stools Lorazepam (Lorazepam 0.5 Mg Tablet) 0.5 mg PO Q8H PRN PRN Reason: Anxiety Last Admin: 08/08/24 14:52 Dose: 0.5 mg Magnesium Hydroxide (Milk Of Magnesia 30 Ml Oral.Susp) 30 ml PO DAILY PRN PRN Reason: Constipation Last Admin: 07/25/24 09:11 Dose: 30 ml Olanzapine (Olanzapine 2.5 Mg Tablet) 2.5 mg PO BID [facility] Last Admin: 08/13/24 20:20 Dose: 2.5 mg Omeprazole (Omeprazole 20 Mg Capsule.) 20 mg PO DAILY@0630 [facility] Last Admin: 08/13/24 06:25 Dose: 20 mg Timolol Maleate (Timolol Maleate 0.5 % Oph Peg 5 Ml Drbtl) 1 drop EYE-BOTH BID [facility] Last Admin: 08/13/24 20:21 Dose: 1 drop Trazodone HCl (Trazodone Hcl 50 Mg Tablet) 50 mg PO BEDTIME MRX1 PRN PRN Reason: Insomnia Last Admin: 08/13/24 20:20 Dose: 50 mg Vitamin D (Cholecalciferol (Vitamin D3) 25 Mcg Tablet) 50 mcg PO DAILY [facility] Last Admin: 08/13/24 08:41 Dose: 50 mcg Allergies Allergies Allergy/AdvReac Type Severity Reaction Status Date / Time sulfamethoxazole (From Allergy Unknown Verified 03/03/24 14:32 Sulfamethoxazole-Trimethoprim) trimethoprim (From Allergy Unknown Verified 03/03/24 14:32 Sulfamethoxazole-Trimethoprim) Assessment & Plan Assessment & Plan (1) 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 Mascorro is an 79 year-old woman with hx of dementia, advanced stages. She was initially admitted to for management of combative and impulsive behaviors secondary to dementia. She was stabilized on combination of depakote, olanzapine. She had episode of brief change in mental status. No VS abnormalities. She was transferred to medical floor for work up of TIA vs stroke, which was negative. Pt transferred back to continue medication management and stabilization and placement. PLAN 08/10- she has been on close observation since 08/06- safely ambulating with walker. no behavioral concerns. vS stable. 08/11 continue tx. 08/12 continue tx. Reason for continued inpatient stay Substantial Risk for: inability to function Time Spent With Patient Time: Total time managing care of this patient today ____ minutes.
[2024-08-14] MEDS: Levothyroxine Sodium 75 MCG TABLET PO (05:32)
[2024-08-14] MEDS: Omeprazole 20 MG CAPSULE.DR PO (06:07)
[2024-08-14 07:55] VITALS: BP 134/62; PULSE 80; RESP 18; TEMP 36.6; O2SAT 98
[2024-08-14] MEDS: Cholecalciferol (Vitamin D3) 25 MCG TABLET 50 MCG PO (08:23)
[2024-08-14] MEDS: lisinopriL 5 MG TABLET PO (08:23)
[2024-08-14] MEDS: Divalproex Sodium Sprinkles 125 MG CAP.DR.SPR 250 MG PO ×2 (08:23→20:57)
[2024-08-14] MEDS: OLANZapine 2.5 MG TABLET PO ×2 (08:23→20:58)
[2024-08-14] MEDS: Fluticasone Propionate Nasal 16 GM SPRAY 2 SPRAY NOSTRIL-B (08:27)
[2024-08-14] MEDS: timoloL maleate 0.5 % Oph Sol 5 ML DRBTL 1 DROP EYE-BOTH ×2 (08:27→20:57)
--- NOTE | 2024-08-14 08:53 | HO.PSYCHPN ---
Subjective Subjective Date of Service: 08/14/24 Reason For Visit: Combative Behaviors Interim History: Pt slept through night. She continues to ambulate with a walker. VS stable. Taking medications as prescribed. Review of Systems Review of Systems cough,congestion, followed by hospitalist service Yes Unobtainable due to mental status Mental Status Exam Mental Status Exam Narrative: Appearance: casually groomed in bed Behavior: calm Psychomotor: no agitation or retardation noted Speech: garbled, difficult to understand TP: concrete TC: can I go home? Mood:ok Affect:calm, congruent SI: none expressed HI: none expressed VH/AH: no overt signs Delusions: none noted Insight/judgment: impaired x 2 Memory/cog: alert, not oriented to place, month or year nor situation. severe impairment in memory and cognition. Diagnostics Vital Signs (24Hr): Vital Signs - 24 hr 08/13/24 20:00 08/14/24 07:55 Temperature 97.5 F 97.9 F Pulse Rate 106 H 80 Respiratory Rate 16 18 Blood Pressure 104/60 134/62 Pulse Oximetry 92 98 Oxygen Delivery Method Room Air Room Air BMI result Body Mass Index 23.9 Labs 07/29/24 07:29 07/31/24 07:31 Imaging Radiology Impressions: ITS Impressions Carotid Doppler Study 07/21/24 16:26 IMPRESSION: 1. RIGHT: Normal right internal carotid artery without significant atherosclerotic plaque or hemodynamically significant stenosis. 2. LEFT: Normal left internal carotid artery without significant atherosclerotic plaque or hemodynamically significant stenosis. Electronically signed by: Zach Adam MD 07/22/2024 09:13 AM EDT Chest X-Ray 07/23/24 12:15 IMPRESSION: No active pulmonary disease. Electronically signed by: Zach Adam MD 07/23/2024 12:58 PM EDT RP Medications Medications Current Medications Acetaminophen (Acetaminophen 325 Mg Tablet) 650 mg PO Q6H PRN PRN Reason: Headache/Pain, Scale 1-10 Last Admin: 08/13/24 20:21 Dose: 650 mg Al Hydroxide/Mg Hydroxide (Magnesium Hydrox/Alum Hydrox 30 Ml Oral.Susp) 30 ml PO Q6H PRN PRN Reason: Heartburn/Nausea Albuterol/Ipratropium (Albuterol/Iprat 2.5/0.5mg 3 Ml Ampul.Neb) 3 ml INHALE RQ4H WHILE AWAKE PRN PRN Reason: SOB/wheezing Last Admin: 08/03/24 09:58 Dose: 3 ml Atorvastatin Calcium (Atorvastatin Calcium 20 Mg Tablet) 20 mg PO BEDTIME [facility] Last Admin: 08/13/24 20:20 Dose: 20 mg Divalproex Sodium (Divalproex Sodium Sprinkles 125 Mg Cap.) 250 mg PO BID [facility] Last Admin: 08/14/24 08:23 Dose: 250 mg Fluticasone Propionate (Fluticasone Propionate Nasal 16 Gm [place]) 2 spray NOSTRIL-B DAILY [facility] Last Admin: 08/14/24 08:27 Dose: 2 spray Furosemide (Furosemide 20 Mg Tablet) 20 mg PO DAILY PRN; Protocol PRN Reason: Weight gain of 2 pounds overnight or 5 pounds in one week. Last Admin: 08/13/24 08:42 Dose: 20 mg Levothyroxine Sodium (Levothyroxine Sodium 75 Mcg Tablet) 75 mcg PO DAILY@0600 [facility] Last Admin: 08/14/24 05:32 Dose: 75 mcg Lisinopril (Lisinopril 5 Mg Tablet) 5 mg PO DAILY [facility]; Protocol Last Admin: 08/14/24 08:23 Dose: 5 mg Loperamide HCl (Loperamide Hcl 2 Mg Capsule) 2 mg PO Q4H PRN PRN Reason: loose stools Lorazepam (Lorazepam 0.5 Mg Tablet) 0.5 mg PO Q8H PRN PRN Reason: Anxiety Last Admin: 08/08/24 14:52 Dose: 0.5 mg Magnesium Hydroxide (Milk Of Magnesia 30 Ml Oral.Susp) 30 ml PO DAILY PRN PRN Reason: Constipation Last Admin: 07/25/24 09:11 Dose: 30 ml Olanzapine (Olanzapine 2.5 Mg Tablet) 2.5 mg PO BID [facility] Last Admin: 08/14/24 08:23 Dose: 2.5 mg Omeprazole (Omeprazole 20 Mg Capsule.Dr) 20 mg PO DAILY@0630 [facility] Last Admin: 08/14/24 06:07 Dose: 20 mg Timolol Maleate (Timolol Maleate 0.5 % Oph Peg 5 Ml Drbtl) 1 drop EYE-BOTH BID [facility] Last Admin: 08/14/24 08:27 Dose: 1 drop Trazodone HCl (Trazodone Hcl 50 Mg Tablet) 50 mg PO BEDTIME MRX1 PRN PRN Reason: Insomnia Last Admin: 08/13/24 20:20 Dose: 50 mg Vitamin D (Cholecalciferol (Vitamin D3) 25 Mcg Tablet) 50 mcg PO DAILY [facility] Last Admin: 08/14/24 08:23 Dose: 50 mcg Allergies Allergies Allergy/AdvReac Type Severity Reaction Status Date / Time sulfamethoxazole (From Allergy Unknown Verified 03/03/24 14:32 Sulfamethoxazole-Trimethoprim) trimethoprim (From Allergy Unknown Verified 03/03/24 14:32 Sulfamethoxazole-Trimethoprim) Assessment & Plan Assessment & Plan (1) 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 Mascorro is an 79 year-old woman with hx of dementia, advanced stages. She was initially admitted to [facility] for management of combative and impulsive behaviors secondary to dementia. She was stabilized on combination of depakote, olanzapine. She had episode of brief change in mental status. No VS abnormalities. She was transferred to medical floor for work up of TIA vs stroke, which was negative. Pt transferred back to continue medication management and stabilization and placement. PLAN 08/10- she has been on close observation since 08/06- safely ambulating with walker. no behavioral concerns. vS stable. 08/11 continue tx. 08/12 continue tx. 08/13 continue tx 08/14 continue tx. Reason for continued inpatient stay Substantial Risk for: inability to function Time Spent With Patient Time: Total time managing care of this patient today ____ minutes.
[2024-08-14 20:00] VITALS: BP 124/58; PULSE 99; RESP 17; TEMP 36.9; O2SAT 93
[2024-08-14] MEDS: Atorvastatin Calcium 20 MG TABLET PO (20:58)
[2024-08-15 06:00] VITALS: BMI 23.9
[2024-08-15] MEDS: Levothyroxine Sodium 75 MCG TABLET PO (06:20)
[2024-08-15] MEDS: Omeprazole 20 MG CAPSULE.DR PO (06:20)
[2024-08-15 08:00] VITALS: BP 132/60; PULSE 93; RESP 18; TEMP 36.3; O2SAT 97
[2024-08-15] MEDS: lisinopriL 5 MG TABLET PO (08:42)
[2024-08-15] MEDS: Cholecalciferol (Vitamin D3) 25 MCG TABLET 50 MCG PO (08:42)
[2024-08-15] MEDS: Fluticasone Propionate Nasal 16 GM SPRAY 2 SPRAY NOSTRIL-B (08:42)
[2024-08-15] MEDS: Divalproex Sodium Sprinkles 125 MG CAP.DR.SPR 250 MG PO ×2 (08:42→19:39)
[2024-08-15] MEDS: timoloL maleate 0.5 % Oph Sol 5 ML DRBTL 1 DROP EYE-BOTH ×2 (08:42→19:41)
[2024-08-15] MEDS: OLANZapine 2.5 MG TABLET PO ×2 (08:43→19:38)
--- NOTE | 2024-08-15 12:28 | P.PNPSI_ITS ---
Subjective Subjective Date of Service: 08/15/24 Reason For Visit: Combative Behaviors Subjective Notes: Conditional Voluntary Interim History: Patient was seen and discussed in rounds today. Records and plans were reviewed. She has been isolative. No changes reported. Repetitive statements and interactions. Concerned about going home. No dangerous behaviors no complaints or side effects. Eating and sleeping adequately. No changes were made today. Review of Systems Review of Systems cough,congestion, followed by hospitalist service Yes Unobtainable due to mental status Mental Status Exam Mental Status Exam Narrative: In today's visit she is alert, pleasant and interactive within her means. Soft- spoken speech. Moderate eye contact. No acute signs of psychosis. Cognitively disorganized and impaired. No dangerous behaviors. No SI expressed. Judgment is impaired. Diagnostics Vital Signs (24Hr): Vital Signs - 24 hr 08/14/24 20:00 08/15/24 08:00 Temperature 98.4 F 97.3 F Pulse Rate 99 93 Respiratory Rate 17 18 Blood Pressure 124/58 L 132/60 Pulse Oximetry 93 97 Oxygen Delivery Method Room Air Room Air BMI result Body Mass Index 23.9 Labs 07/29/24 07:29 07/31/24 07:31 Imaging Radiology Impressions: ITS Impressions Carotid Doppler Study 07/21/24 16:26 IMPRESSION: 1. RIGHT: Normal right internal carotid artery without significant atherosclerotic plaque or hemodynamically significant stenosis. 2. LEFT: Normal left internal carotid artery without significant atherosclerotic plaque or hemodynamically significant stenosis. Electronically signed by: Zach Adam MD 07/22/2024 09:13 AM EDT Chest X-Ray 07/23/24 12:15 IMPRESSION: No active pulmonary disease. Electronically signed by: Zach Adam MD 07/23/2024 12:58 PM EDT Medications Medications Current Medications Acetaminophen (Acetaminophen 325 Mg Tablet) 650 mg PO Q6H PRN PRN Reason: Headache/Pain, Scale 1-10 Last Admin: 08/13/24 20:21 Dose: 650 mg Al Hydroxide/Mg Hydroxide (Magnesium Hydrox/Alum Hydrox 30 Ml Oral.Susp) 30 ml PO Q6H PRN PRN Reason: Heartburn/Nausea Albuterol/Ipratropium (Albuterol/Iprat 2.5/0.5mg 3 Ml Ampul.Neb) 3 ml INHALE RQ4H WHILE AWAKE PRN PRN Reason: SOB/wheezing Last Admin: 08/03/24 09:58 Dose: 3 ml Atorvastatin Calcium (Atorvastatin Calcium 20 Mg Tablet) 20 mg PO BEDTIME [facility] Last Admin: 08/14/24 20:58 Dose: 20 mg Divalproex Sodium (Divalproex Sodium Sprinkles 125 Mg Cap.) 250 mg PO BID [facility] Last Admin: 08/15/24 08:42 Dose: 250 mg Fluticasone Propionate (Fluticasone Propionate Nasal 16 Gm [place]) 2 spray NOSTRIL-B DAILY [facility] Last Admin: 08/15/24 08:42 Dose: 2 spray Furosemide (Furosemide 20 Mg Tablet) 20 mg PO DAILY PRN; Protocol PRN Reason: Weight gain of 2 pounds overnight or 5 pounds in one week. Last Admin: 08/13/24 08:42 Dose: 20 mg Levothyroxine Sodium (Levothyroxine Sodium 75 Mcg Tablet) 75 mcg PO DAILY@0600 [facility] Last Admin: 08/15/24 06:20 Dose: 75 mcg Lisinopril (Lisinopril 5 Mg Tablet) 5 mg PO DAILY [facility]; Protocol Last Admin: 08/15/24 08:42 Dose: 5 mg Loperamide HCl (Loperamide Hcl 2 Mg Capsule) 2 mg PO Q4H PRN PRN Reason: loose stools Lorazepam (Lorazepam 0.5 Mg Tablet) 0.5 mg PO Q8H PRN PRN Reason: Anxiety Last Admin: 08/08/24 14:52 Dose: 0.5 mg Magnesium Hydroxide (Milk Of Magnesia 30 Ml Oral.Susp) 30 ml PO DAILY PRN PRN Reason: Constipation Last Admin: 07/25/24 09:11 Dose: 30 ml Olanzapine (Olanzapine 2.5 Mg Tablet) 2.5 mg PO BID [facility] Last Admin: 08/15/24 08:43 Dose: 2.5 mg Omeprazole (Omeprazole 20 Mg Capsule.) 20 mg PO DAILY@0630 [facility] Last Admin: 08/15/24 06:20 Dose: 20 mg Timolol Maleate (Timolol Maleate 0.5 % Oph Peg 5 Ml Drbtl) 1 drop EYE-BOTH BID [facility] Last Admin: 08/15/24 08:42 Dose: 1 drop Trazodone HCl (Trazodone Hcl 50 Mg Tablet) 50 mg PO BEDTIME MRX1 PRN PRN Reason: Insomnia Last Admin: 08/13/24 20:20 Dose: 50 mg Vitamin D (Cholecalciferol (Vitamin D3) 25 Mcg Tablet) 50 mcg PO DAILY [facility] Last Admin: 08/15/24 08:42 Dose: 50 mcg Allergies Allergies Allergy/AdvReac Type Severity Reaction Status Date / Time sulfamethoxazole (From Allergy Unknown Verified 03/03/24 14:32 Sulfamethoxazole-Trimethoprim) trimethoprim (From Allergy Unknown Verified 03/03/24 14:32 Sulfamethoxazole-Trimethoprim) Assessment & Plan Assessment & Plan (1) 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 Mascorro is an 79 year-old woman with hx of dementia, advanced stages. She was initially admitted to S[facility] for management of combative and impulsive behaviors secondary to dementia. She was stabilized on combination of depakote, olanzapine. She had episode of brief change in mental status. No VS abnormalities. She was transferred to medical floor for work up of TIA vs stroke, which was negative. Pt transferred back to continue medication management and stabilization and placement. PLAN 08/10- she has been on close observation since 08/06- safely ambulating with walker. no behavioral concerns. vS stable. 08/11 continue tx. 08/12 continue tx. 08/13 continue tx 08/14 continue tx. 08/15: Continue current regimen and plans Reason for continued inpatient stay Substantial Risk for: inability to function Time Spent With Patient Time: Total time managing care of this patient today ____ minutes.
[2024-08-15 19:35] VITALS: BP 134/70; PULSE 100; RESP 16; TEMP 36.7; O2SAT 93
[2024-08-15] MEDS: Atorvastatin Calcium 20 MG TABLET PO (19:39)
[2024-08-15] MEDS: traZODone HCL 50 MG TABLET PO (19:39)
[2024-08-16] MEDS: Levothyroxine Sodium 75 MCG TABLET PO (05:01)
[2024-08-16] MEDS: Omeprazole 20 MG CAPSULE.DR PO (05:30)
[2024-08-16 06:06] VITALS: BMI 25.1
[2024-08-16 08:00] VITALS: BP 108/56; PULSE 82; RESP 18; TEMP 36.2; O2SAT 96
[2024-08-16] MEDS: Cholecalciferol (Vitamin D3) 25 MCG TABLET 50 MCG PO (08:22)
[2024-08-16] MEDS: Divalproex Sodium Sprinkles 125 MG CAP.DR.SPR 250 MG PO ×2 (08:22→20:14)
[2024-08-16] MEDS: OLANZapine 2.5 MG TABLET PO ×2 (08:23→20:14)
[2024-08-16] MEDS: lisinopriL 5 MG TABLET PO (08:23)
[2024-08-16] MEDS: timoloL maleate 0.5 % Oph Sol 5 ML DRBTL 1 DROP EYE-BOTH ×2 (08:25→20:17)
[2024-08-16] MEDS: Fluticasone Propionate Nasal 16 GM SPRAY 2 SPRAY NOSTRIL-B (08:25)
--- NOTE | 2024-08-16 11:27 | HO.PSYCHPN ---
Subjective Subjective Date of Service: 08/16/24 Reason For Visit: Combative Behaviors Subjective Notes: Conditional Voluntary Interim History: Patient was seen and discussed in rounds today. Records and plans were reviewed. She has been isolative. No changes reported. She does come out of her room and tries to interact with others minimally. She continues to be making repetitive statements, wanting to go home etc.. No behavioral issues otherwise. No changes were made. Review of Systems Review of Systems Yes Unobtainable due to mental status Mental Status Exam Mental Status Exam Narrative: In today's visit she is alert, pleasant and interactive within her means. Soft-spoken speech. Moderate eye contact. No acute signs of psychosis. Cognitively disorganized and impaired. No dangerous behaviors. No SI expressed. Judgment is impaired. Diagnostics Vital Signs (24Hr): Vital Signs - 24 hr 08/15/24 19:35 Temperature 98.1 F Pulse Rate 100 Respiratory Rate 16 Blood Pressure 134/70 Pulse Oximetry 93 Oxygen Delivery Method Room Air BMI result Body Mass Index 25.1 Labs 07/29/24 07:29 07/31/24 07:31 Imaging Radiology Impressions: ITS Impressions Carotid Doppler Study 07/21/24 16:26 IMPRESSION: 1. RIGHT: Normal right internal carotid artery without significant atherosclerotic plaque or hemodynamically significant stenosis. 2. LEFT: Normal left internal carotid artery without significant atherosclerotic plaque or hemodynamically significant stenosis. Electronically signed by: Zach Adam MD 07/22/2024 09:13 AM EDT Chest X-Ray 07/23/24 12:15 IMPRESSION: No active pulmonary disease. Electronically signed by: Zach Adam MD 07/23/2024 12:58 PM EDT Medications Medications Current Medications Acetaminophen (Acetaminophen 325 Mg Tablet) 650 mg PO Q6H PRN PRN Reason: Headache/Pain, Scale 1-10 Last Admin: 08/13/24 20:21 Dose: 650 mg Al Hydroxide/Mg Hydroxide (Magnesium Hydrox/Alum Hydrox 30 Ml Oral.Susp) 30 ml PO Q6H PRN PRN Reason: Heartburn/Nausea Albuterol/Ipratropium (Albuterol/Iprat 2.5/0.5mg 3 Ml Ampul.Neb) 3 ml INHALE RQ4H WHILE AWAKE PRN PRN Reason: SOB/wheezing Last Admin: 08/03/24 09:58 Dose: 3 ml Atorvastatin Calcium (Atorvastatin Calcium 20 Mg Tablet) 20 mg PO BEDTIME [facility] Last Admin: 08/15/24 19:39 Dose: 20 mg Divalproex Sodium (Divalproex Sodium Sprinkles 125 Mg Cap.) 250 mg PO BID [facility] Last Admin: 08/16/24 08:22 Dose: 250 mg Fluticasone Propionate (Fluticasone Propionate Nasal 16 Gm [place]) 2 spray NOSTRIL-B DAILY [facility] Last Admin: 08/16/24 08:25 Dose: 2 spray Furosemide (Furosemide 20 Mg Tablet) 20 mg PO DAILY PRN; Protocol PRN Reason: Weight gain of 2 pounds overnight or 5 pounds in one week. Last Admin: 08/13/24 08:42 Dose: 20 mg Levothyroxine Sodium (Levothyroxine Sodium 75 Mcg Tablet) 75 mcg PO DAILY@0600 [facility] Last Admin: 08/16/24 05:01 Dose: 75 mcg Lisinopril (Lisinopril 5 Mg Tablet) 5 mg PO DAILY [facility]; Protocol Last Admin: 08/16/24 08:23 Dose: 5 mg Loperamide HCl (Loperamide Hcl 2 Mg Capsule) 2 mg PO Q4H PRN PRN Reason: loose stools Lorazepam (Lorazepam 0.5 Mg Tablet) 0.5 mg PO Q8H PRN PRN Reason: Anxiety Last Admin: 08/08/24 14:52 Dose: 0.5 mg Magnesium Hydroxide (Milk Of Magnesia 30 Ml Oral.Susp) 30 ml PO DAILY PRN PRN Reason: Constipation Last Admin: 07/25/24 09:11 Dose: 30 ml Olanzapine (Olanzapine 2.5 Mg Tablet) 2.5 mg PO BID [facility] Last Admin: 08/16/24 08:23 Dose: 2.5 mg Omeprazole (Omeprazole 20 Mg Capsule.) 20 mg PO DAILY@0630 [facility] Last Admin: 08/16/24 05:30 Dose: 20 mg Timolol Maleate (Timolol Maleate 0.5 % Oph Peg 5 Ml Drbtl) 1 drop EYE-BOTH BID [facility] Last Admin: 08/16/24 08:25 Dose: 1 drop Trazodone HCl (Trazodone Hcl 50 Mg Tablet) 50 mg PO BEDTIME MRX1 PRN PRN Reason: Insomnia Last Admin: 08/15/24 19:39 Dose: 50 mg Vitamin D (Cholecalciferol (Vitamin D3) 25 Mcg Tablet) 50 mcg PO DAILY [facility] Last Admin: 08/16/24 08:22 Dose: 50 mcg Allergies Allergies Allergy/AdvReac Type Severity Reaction Status Date / Time sulfamethoxazole (From Allergy Unknown Verified 03/03/24 14:32 Sulfamethoxazole-Trimethoprim) trimethoprim (From Allergy Unknown Verified 03/03/24 14:32 Sulfamethoxazole-Trimethoprim) Assessment & Plan Assessment & Plan (1) 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 Mascorro is an 79 year-old woman with hx of dementia, advanced stages. She was initially admitted to S1 for management of combative and impulsive behaviors secondary to dementia. She was stabilized on combination of depakote, olanzapine. She had episode of brief change in mental status. No VS abnormalities. She was transferred to medical floor for work up of TIA vs stroke, which was negative. Pt transferred back to continue medication management and stabilization and placement. PLAN 08/10- she has been on close observation since 08/06- safely ambulating with walker. no behavioral concerns. vS stable. 08/11 continue tx. 08/12 continue tx. 08/13 continue tx 08/14 continue tx. 08/15: Continue current regimen and plans 08/16: Continue current regimen and plans Reason for continued inpatient stay Substantial Risk for: inability to function Time Spent With Patient Time: Total time managing care of this patient today ____ minutes.
[2024-08-16 19:54] VITALS: BP 126/60; PULSE 101; RESP 18; TEMP 36.8; O2SAT 95
[2024-08-16] MEDS: Atorvastatin Calcium 20 MG TABLET PO (20:14)
[2024-08-16] MEDS: Acetaminophen 325 MG TABLET 650 MG PO (20:40)
[2024-08-16] MEDS: traZODone HCL 50 MG TABLET PO (20:40)
[2024-08-17] MEDS: Levothyroxine Sodium 75 MCG TABLET PO (05:34)
[2024-08-17 06:00] VITALS: BMI 24.0
[2024-08-17] MEDS: Omeprazole 20 MG CAPSULE.DR PO (06:16)
[2024-08-17 08:00] VITALS: BP 131/70; PULSE 74; RESP 18; TEMP 36.4
[2024-08-17 08:36] VITALS: BP 131/70
[2024-08-17] MEDS: lisinopriL 5 MG TABLET PO (08:36)
[2024-08-17] MEDS: OLANZapine 2.5 MG TABLET PO ×2 (08:37→21:29)
[2024-08-17] MEDS: timoloL maleate 0.5 % Oph Sol 5 ML DRBTL 1 DROP EYE-BOTH ×2 (08:37→21:30)
[2024-08-17] MEDS: Cholecalciferol (Vitamin D3) 25 MCG TABLET 50 MCG PO (08:37)
[2024-08-17] MEDS: Fluticasone Propionate Nasal 16 GM SPRAY 2 SPRAY NOSTRIL-B (08:37)
--- NOTE | 2024-08-17 10:09 | PC.NURSE ---
Awaiting Divalproex/ pharmacy contacted x2.
[2024-08-17] MEDS: Divalproex Sodium Sprinkles 125 MG CAP.DR.SPR 250 MG PO ×2 (10:40→21:29)
--- NOTE | 2024-08-17 11:02 | HO.PSYCHPN ---
Subjective Subjective Date of Service: 08/17/24 Reason For Visit: Combative Behaviors Subjective Notes: Conditional Voluntary Healthcare Proxy: Yes Interim History: Pt slept through the night. VS stable. No physical concerns. She is taking medications as prescribed. ambulating with walker. No behavioral concerns. Medication Compliance: Yes Review of Systems Review of Systems cough,congestion, followed by hospitalist service Yes Unobtainable due to mental status Diagnostics Vital Signs (24Hr): Vital Signs - 24 hr 08/16/24 19:54 08/17/24 08:00 08/17/24 08:36 Temperature 98.2 F 97.5 F Pulse Rate 101 H 74 Respiratory Rate 18 18 Blood Pressure 126/60 131/70 131/70 Pulse Oximetry 95 Oxygen Delivery Method Room Air BMI result Body Mass Index 24.0 Labs 07/29/24 07:29 07/31/24 07:31 Imaging Radiology Impressions: ITS Impressions Carotid Doppler Study 07/21/24 16:26 IMPRESSION: 1. RIGHT: Normal right internal carotid artery without significant atherosclerotic plaque or hemodynamically significant stenosis. 2. LEFT: Normal left internal carotid artery without significant atherosclerotic plaque or hemodynamically significant stenosis. Electronically signed by: Zach Adam MD 07/22/2024 09:13 AM EDT RP Chest X-Ray 07/23/24 12:15 IMPRESSION: No active pulmonary disease. Electronically signed by: Zach Adam MD 07/23/2024 12:58 PM EDT RP Medications Medications Current Medications Acetaminophen (Acetaminophen 325 Mg Tablet) 650 mg PO Q6H PRN PRN Reason: Headache/Pain, Scale 1-10 Last Admin: 08/16/24 20:40 Dose: 650 mg Al Hydroxide/Mg Hydroxide (Magnesium Hydrox/Alum Hydrox 30 Ml Oral.Susp) 30 ml PO Q6H PRN PRN Reason: Heartburn/Nausea Albuterol/Ipratropium (Albuterol/Iprat 2.5/0.5mg 3 Ml Ampul.Neb) 3 ml INHALE RQ4H WHILE AWAKE PRN PRN Reason: SOB/wheezing Last Admin: 08/03/24 09:58 Dose: 3 ml Atorvastatin Calcium (Atorvastatin Calcium 20 Mg Tablet) 20 mg PO BEDTIME GLADIS Last Admin: 08/16/24 20:14 Dose: 20 mg Divalproex Sodium (Divalproex Sodium Sprinkles 125 Mg ) 250 mg PO BID [facility] Last Admin: 08/17/24 10:40 Dose: 250 mg Fluticasone Propionate (Fluticasone Propionate Nasal 16 Gm [place]) 2 spray NOSTRIL-B DAILY [facility] Last Admin: 08/17/24 08:37 Dose: 2 spray Furosemide (Furosemide 20 Mg Tablet) 20 mg PO DAILY PRN; Protocol PRN Reason: Weight gain of 2 pounds overnight or 5 pounds in one week. Last Admin: 08/13/24 08:42 Dose: 20 mg Levothyroxine Sodium (Levothyroxine Sodium 75 Mcg Tablet) 75 mcg PO DAILY@0600 [facility] Last Admin: 08/17/24 05:34 Dose: 75 mcg Lisinopril (Lisinopril 5 Mg Tablet) 5 mg PO DAILY [facility]; Protocol Last Admin: 08/17/24 08:36 Dose: 5 mg Loperamide HCl (Loperamide Hcl 2 Mg Capsule) 2 mg PO Q4H PRN PRN Reason: loose stools Lorazepam (Lorazepam 0.5 Mg Tablet) 0.5 mg PO Q8H PRN PRN Reason: Anxiety Last Admin: 08/08/24 14:52 Dose: 0.5 mg Magnesium Hydroxide (Milk Of Magnesia 30 Ml Oral.Susp) 30 ml PO DAILY PRN PRN Reason: Constipation Last Admin: 07/25/24 09:11 Dose: 30 ml Olanzapine (Olanzapine 2.5 Mg Tablet) 2.5 mg PO BID [facility] Last Admin: 08/17/24 08:37 Dose: 2.5 mg Omeprazole (Omeprazole 20 Mg Capsule.) 20 mg PO DAILY@0630 [facility] Last Admin: 08/17/24 06:16 Dose: 20 mg Timolol Maleate (Timolol Maleate 0.5 % Oph Peg 5 Ml Drbtl) 1 drop EYE-BOTH BID [facility] Last Admin: 08/17/24 08:37 Dose: 1 drop Trazodone HCl (Trazodone Hcl 50 Mg Tablet) 50 mg PO BEDTIME MRX1 PRN PRN Reason: Insomnia Last Admin: 08/16/24 20:40 Dose: 50 mg Vitamin D (Cholecalciferol (Vitamin D3) 25 Mcg Tablet) 50 mcg PO DAILY [facility] Last Admin: 08/17/24 08:37 Dose: 50 mcg Allergies Allergies Allergy/AdvReac Type Severity Reaction Status Date / Time sulfamethoxazole (From Allergy Unknown Verified 03/03/24 14:32 Sulfamethoxazole-Trimethoprim) trimethoprim (From Allergy Unknown Verified 03/03/24 14:32 Sulfamethoxazole-Trimethoprim) Assessment & Plan Assessment & Plan (1) 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 Mascorro is an 79 year-old woman with hx of dementia, advanced stages. She was initially admitted to [facility] for management of combative and impulsive behaviors secondary to dementia. She was stabilized on combination of depakote, olanzapine. She had episode of brief change in mental status. No VS abnormalities. She was transferred to medical floor for work up of TIA vs stroke, which was negative. Pt transferred back to continue medication management and stabilization and placement. PLAN 08/10- she has been on close observation since 08/06- safely ambulating with walker. no behavioral concerns. vS stable. 08/11 continue tx. 08/12 continue tx. 08/13 continue tx 08/14 continue tx. 08/15: Continue current regimen and plans 08/16: Continue current regimen and plans 08/17 continue tx. Reason for continued inpatient stay Substantial Risk for: inability to function Time Spent With Patient Time: Total time managing care of this patient today ____ minutes.
[2024-08-17 20:00] VITALS: BP 97/55; PULSE 79; RESP 16; TEMP 36.7; O2SAT 95
[2024-08-17] MEDS: traZODone HCL 50 MG TABLET PO (21:29)
[2024-08-17] MEDS: Atorvastatin Calcium 20 MG TABLET PO (21:29)
[2024-08-17] MEDS: Acetaminophen 325 MG TABLET 650 MG PO (21:29)
[2024-08-18] MEDS: Levothyroxine Sodium 75 MCG TABLET PO (05:59)
[2024-08-18 06:00] VITALS: BMI 25.1
[2024-08-18] MEDS: Omeprazole 20 MG CAPSULE.DR PO (06:23)
[2024-08-18 08:00] VITALS: BP 142/76; PULSE 77; RESP 18; TEMP 36.4; O2SAT 96
[2024-08-18] MEDS: Fluticasone Propionate Nasal 16 GM SPRAY 2 SPRAY NOSTRIL-B (08:49)
[2024-08-18] MEDS: timoloL maleate 0.5 % Oph Sol 5 ML DRBTL 1 DROP EYE-BOTH ×2 (08:49→21:44)
[2024-08-18] MEDS: OLANZapine 2.5 MG TABLET PO ×2 (08:50→20:07)
[2024-08-18] MEDS: Cholecalciferol (Vitamin D3) 25 MCG TABLET 50 MCG PO (08:50)
[2024-08-18] MEDS: Divalproex Sodium Sprinkles 125 MG CAP.DR.SPR 250 MG PO ×2 (08:50→20:07)
[2024-08-18 08:51] VITALS: BP 142/76
[2024-08-18] MEDS: lisinopriL 5 MG TABLET PO (08:51)
--- NOTE | 2024-08-18 18:52 | P.PNPSI_ITS ---
Subjective Subjective Date of Service: 08/18/24 Reason For Visit: Combative Behaviors Interim History: no change in presentation. no questions or concerns. Mental Status Exam Mental Status Exam Narrative: In today's visit she is alert, pleasant and interactive within her means. Soft- spoken speech. Moderate eye contact. No acute signs of psychosis. Cognitively disorganized and impaired. No dangerous behaviors. No SI expressed. Judgment is impaired. Diagnostics Vital Signs (24Hr): Vital Signs - 24 hr 08/17/24 20:00 08/18/24 08:00 08/18/24 08:51 Temperature 98.1 F 97.5 F Pulse Rate 79 77 Respiratory Rate 16 18 Blood Pressure 97/55 L 142/76 H 142/76 H Pulse Oximetry 95 96 Oxygen Delivery Method Room Air Room Air BMI result Body Mass Index 25.1 Labs 07/29/24 07:29 07/31/24 07:31 Imaging Radiology Impressions: ITS Impressions Carotid Doppler Study 07/21/24 16:26 IMPRESSION: 1. RIGHT: Normal right internal carotid artery without significant atherosclerotic plaque or hemodynamically significant stenosis. 2. LEFT: Normal left internal carotid artery without significant atherosclerotic plaque or hemodynamically significant stenosis. Electronically signed by: Zach Adam MD 07/22/2024 09:13 AM EDT RP Chest X-Ray 07/23/24 12:15 IMPRESSION: No active pulmonary disease. Electronically signed by: Zach Adam MD 07/23/2024 12:58 PM EDT RP Medications Medications Current Medications Acetaminophen (Acetaminophen 325 Mg Tablet) 650 mg PO Q6H PRN PRN Reason: Headache/Pain, Scale 1-10 Last Admin: 08/17/24 21:29 Dose: 650 mg Al Hydroxide/Mg Hydroxide (Magnesium Hydrox/Alum Hydrox 30 Ml Oral.Susp) 30 ml PO Q6H PRN PRN Reason: Heartburn/Nausea Albuterol/Ipratropium (Albuterol/Iprat 2.5/0.5mg 3 Ml Ampul.Neb) 3 ml INHALE RQ4H WHILE AWAKE PRN PRN Reason: SOB/wheezing Last Admin: 08/03/24 09:58 Dose: 3 ml Atorvastatin Calcium (Atorvastatin Calcium 20 Mg Tablet) 20 mg PO BEDTIME GLADIS Last Admin: 08/17/24 21:29 Dose: 20 mg Divalproex Sodium (Divalproex Sodium Sprinkles 125 Mg [place].) 250 mg PO BID [facility] Last Admin: 08/18/24 08:50 Dose: 250 mg Fluticasone Propionate (Fluticasone Propionate Nasal 16 Gm [place]) 2 spray NOSTRIL-B DAILY [facility] Last Admin: 08/18/24 08:49 Dose: 2 spray Furosemide (Furosemide 20 Mg Tablet) 20 mg PO DAILY PRN; Protocol PRN Reason: Weight gain of 2 pounds overnight or 5 pounds in one week. Last Admin: 08/13/24 08:42 Dose: 20 mg Levothyroxine Sodium (Levothyroxine Sodium 75 Mcg Tablet) 75 mcg PO DAILY@0600 [facility] Last Admin: 08/18/24 05:59 Dose: 75 mcg Lisinopril (Lisinopril 5 Mg Tablet) 5 mg PO DAILY [facility]; Protocol Last Admin: 08/18/24 08:51 Dose: 5 mg Loperamide HCl (Loperamide Hcl 2 Mg Capsule) 2 mg PO Q4H PRN PRN Reason: loose stools Lorazepam (Lorazepam 0.5 Mg Tablet) 0.5 mg PO Q8H PRN PRN Reason: Anxiety Last Admin: 08/08/24 14:52 Dose: 0.5 mg Magnesium Hydroxide (Milk Of Magnesia 30 Ml Oral.Susp) 30 ml PO DAILY PRN PRN Reason: Constipation Last Admin: 07/25/24 09:11 Dose: 30 ml Olanzapine (Olanzapine 2.5 Mg Tablet) 2.5 mg PO BID [facility] Last Admin: 08/18/24 08:50 Dose: 2.5 mg Omeprazole (Omeprazole 20 Mg Capsule.) 20 mg PO DAILY@0630 [facility] Last Admin: 08/18/24 06:23 Dose: 20 mg Timolol Maleate (Timolol Maleate 0.5 % Oph Peg 5 Ml Drbtl) 1 drop EYE-BOTH BID [facility] Last Admin: 08/18/24 08:49 Dose: 1 drop Trazodone HCl (Trazodone Hcl 50 Mg Tablet) 50 mg PO BEDTIME MRX1 PRN PRN Reason: Insomnia Last Admin: 08/17/24 21:29 Dose: 50 mg Vitamin D (Cholecalciferol (Vitamin D3) 25 Mcg Tablet) 50 mcg PO DAILY [facility] Last Admin: 08/18/24 08:50 Dose: 50 mcg Allergies Allergies Allergy/AdvReac Type Severity Reaction Status Date / Time sulfamethoxazole (From Allergy Unknown Verified 03/03/24 14:32 Sulfamethoxazole-Trimethoprim) trimethoprim (From Allergy Unknown Verified 03/03/24 14:32 Sulfamethoxazole-Trimethoprim) Assessment & Plan Assessment & Plan (1) 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 Mascorro is an 79 year-old woman with hx of dementia, advanced stages. She was initially admitted to [facility] for management of combative and impulsive behaviors secondary to dementia. She was stabilized on combination of depakote, olanzapine. She had episode of brief change in mental status. No VS abnormalities. She was transferred to medical floor for work up of TIA vs stroke, which was negative. Pt transferred back to continue medication management and stabilization and placement. PLAN 08/10- she has been on close observation since 08/06- safely ambulating with walker. no behavioral concerns. vS stable. 08/11 continue tx. 08/12 continue tx. 08/13 continue tx 08/14 continue tx. 08/15: Continue current regimen and plans 08/16: Continue current regimen and plans 08/17 continue tx. 08/18: stable presentation. continue current mgmt. may discharge tomorrow. Reason for continued inpatient stay Substantial Risk for: inability to function Time Spent With Patient Time: Total time managing care of this patient today ____ minutes.
[2024-08-18 19:58] VITALS: BP 108/53; PULSE 89; RESP 16; TEMP 37; O2SAT 92
[2024-08-18 20:00] VITALS: BP 108/53; PULSE 89; RESP 16; TEMP 37; O2SAT 92
[2024-08-18] MEDS: Acetaminophen 325 MG TABLET 650 MG PO (20:06)
[2024-08-18] MEDS: traZODone HCL 50 MG TABLET PO (20:07)
[2024-08-18] MEDS: Atorvastatin Calcium 20 MG TABLET PO (20:07)
[2024-08-19] MEDS: Levothyroxine Sodium 75 MCG TABLET PO (05:53)
[2024-08-19 06:00] VITALS: BMI 23.8
[2024-08-19] MEDS: Omeprazole 20 MG CAPSULE.DR PO (06:21)
[2024-08-19 08:00] VITALS: BP 124/65; PULSE 93; RESP 16; TEMP 36.9; O2SAT 94
[2024-08-19] MEDS: Cholecalciferol (Vitamin D3) 25 MCG TABLET 50 MCG PO (08:40)
[2024-08-19] MEDS: Fluticasone Propionate Nasal 16 GM SPRAY 2 SPRAY NOSTRIL-B (08:41)
[2024-08-19] MEDS: OLANZapine 2.5 MG TABLET PO (08:41)
[2024-08-19] MEDS: lisinopriL 5 MG TABLET PO (08:41)
[2024-08-19] MEDS: timoloL maleate 0.5 % Oph Sol 5 ML DRBTL 1 DROP EYE-BOTH (08:41)
[2024-08-19] MEDS: Divalproex Sodium Sprinkles 125 MG CAP.DR.SPR 250 MG PO (08:41)
--- NOTE | 2024-08-19 09:37 | PM.PSYDC ---
DS: Providers Provider Date of Service: 08/19/24 Date of admission: 06/04/24 11:38 Date of discharge: 08/19/24 Primary care physician: Unknown Physician Consults: 06/21/24 17:55 Consult to Hospitalist Routine Comment: Consulting Provider: [facility] Reason For Exam: remains hyponatremic with fluid restriction 07/14/24 12:20 Consult to Hospitalist Routine Comment: Consulting Provider: [facility] Reason For Exam: increase urinary frequency 07/17/24 13:31 Consult to Neurology Routine Consulting Provider: [facility] Reason for consultation: Continued seizure like episodes, medication managment Has provider been notified: No 07/19/24 18:04 Consult to Hospitalist Routine Comment: Consulting Provider: [facility] Reason For Exam: ? possibly aspirated. crackles at lung base DS: Diagnosis Discharge Diagnosis (1) Major neurocognitive disorder due to Alzheimer's disease, without behavioral disturbance: Status: Acute DS: Medications Discharge Medications Home Medications: Previous Rx's ?Medication ?Instructions ?Recorded acetaminophen 325 mg tablet 650 mg (2 x 325 mg) PO Q6H PRN 08/19/24 Headache/Pain, Scale 1-10 #0 tabs atorvastatin 20 mg tablet 20 mg PO BEDTIME #0 tabs 08/19/24 cholecalciferol (vitamin D3) 25 50 mcg (2 x 25 mcg (1,000 unit)) 08/19/24 mcg (1,000 unit) tablet PO DAILY #0 tabs divalproex 125 mg capsule,delayed 250 mg (2 x 125 mg) PO BID #0 caps 08/19/24 release sprinkle fluticasone propionate 50 2 spray intranasal DAILY #0 grams 08/19/24 mcg/actuation nasal spray,suspension furosemide 20 mg tablet 20 mg PO DAILY PRN Weight gain of 08/19/24 2 pounds overnight or 5 pounds in one week. #0 tabs ipratropium 0.5 mg-albuterol 3 mg 3 ml inhalation RQ4H WHILE AWAKE 08/19/24 (2.5 mg base)/3 mL nebulization PRN SOB/wheezing #0 mL soln levothyroxine 75 mcg tablet 75 mcg PO DAILY@0600 #0 tabs 08/19/24 lisinopril 5 mg tablet 5 mg PO DAILY #0 tabs 06/25/25 lorazepam 0.5 mg tablet 0.5 mg PO BID PRN Anxiety #60 tabs 08/19/24 olanzapine 2.5 mg tablet 2.5 mg PO BID #0 tabs 08/19/24 omeprazole 20 mg capsule,delayed 20 mg PO DAILY@0630 #0 caps 08/19/24 release timolol maleate 0.5 % eye drops 1 drp ophthalmic (eye) BID #0 mL 08/19/24 trazodone 50 mg tablet 50 mg PO BEDTIME PRN Insomnia #0 08/19/24 tabs Data Data Completed and Pending Completed studies during hospitalization [Text1]: 07/13/24 10:50 Urine clean catch - Clean Catch Midstream Urine Culture - Final 06/16/24 Unknown Urine clean catch - Clean Catch Midstream Urine Culture - Final Enterococcus faecalis Imaging Diagnostic Imaging Impressions Carotid Doppler Study 07/21/24 16:26 IMPRESSION: 1. RIGHT: Normal right internal carotid artery without significant atherosclerotic plaque or hemodynamically significant stenosis. 2. LEFT: Normal left internal carotid artery without significant atherosclerotic plaque or hemodynamically significant stenosis. Electronically signed by: Zach Adam MD 07/22/2024 09:13 AM EDT RP Chest X-Ray 07/23/24 12:15 IMPRESSION: No active pulmonary disease. Electronically signed by: Zach Adam MD 07/23/2024 12:58 PM EDT RP DS: Summary Hospital Course Hospital Course: Mrs. Mascorro is an 79 year-old woman with hx of dementia who initially was admitted to [facility] on 03/05/2024 for management of combative and impulsive behaviors due to dementia. She was stabilized on depakote 250mg po TID, olanzapine 2.5mg po BID. She was transferred to medical floor on 06/02/2024 for possible stroke versus TIA with a NIH score of 1. During hospital stay on medicine she had head CT and head/neck CTA which was negative for ischemia and large vessel occlussion respectively. She did not show focal changes nor changes in mentation. She was seen by neurology who had recommended MRI but this was not completed as patient was not able to cooperate. Unclear why medication was not offered as pt has invoked HCP. Other pertinent labs completed include cbc with normocytic anemia which is chronic and stable H&H. CMP without electrolyte abnormalities, BUN 16, Cr 1.1. On the unit, pt ambulating with walker. She is smiling. She does ask about going home. She denies any physical concerns. She also asks this advertising copywriter if I can give her a beer. She is not oriented to place, month year nor situation and this is her baseline. Her thought content is with poverty of thought. HOSPITAL COURSE On the unit, pt was admitted on CV signed by HCP. Pt was continued on olanzapine 2.5mg po BID and depakote 250mg po BID which had been prescribed for seizures. She presented as less impulsive. She was sleeping and eating well. She ambulated with a walker. She is not oriented to place, month, year nor situation. She would often ask to go home. Her thought content was limited to asking to go home. She did not show signs of aggression towards self or others. She was taking medications as prescribed. Medically: HFrEF: daily weights Lasix 20mg po daily prn give if weight increases 2Lbs in one day or 5 Lbs over one week 1500 mls fluid restriction. She appears euvolemic. Daily weights- 2 pounds in one day or 5 pounds in one week give lasix Recent Chest Xray negative, BNP WNL Seizure D/O- on depakote. negative eeg at [facility] but [facility]. BP - stable with Lisinopril Hypothyroidism- on levothyroxine. TSH on 06/22/2024 was 1.37 A1c on 06/05/2024 5.5% Status at Discharge Cognitive/behavioral status at discharge: Pt with bright affect. No aggression towards self or others. No psychosis or delusions. Poverty of thought. Not oriented to place, month or year. Functional status at discharge: uses cane/walker Overall status at discharge: patient is back to baseline Time Spent with Patient Time attestation: Total time managing care of this patient today ____ minutes. Discharge Plan Discharge Anticipated Discharge Date/Time: 08/19/24 09:25 Patient Disposition: Home, Self-Care Discharge Diagnosis: Major Neurocognitive Disorder Referrals: [facility] [Outside] - 08/19/24 2:00 pm Referral Note: You will be leaving to [facility] on 08/19 at 2pm Discharge Medications: New acetaminophen 325 mg Tablet 650 mg PO Q6H PRN (Reason: Headache/Pain, Scale 1-10) Qty: 0 0RF atorvastatin 20 mg Tablet 20 mg PO BEDTIME Qty: 0 0RF ipratropium-albuterol 0.5 mg-3 mg(2.5 mg base)/3 mL Solution For Nebulization 3 ml inhalation RQ4H WHILE AWAKE PRN (Reason: SOB/wheezing) Qty: 0 0RF lisinopril 5 mg Tablet 5 mg PO DAILY Qty: 0 0RF Protocol: Hold for SBP< HOLD for SBP < : 90 trazodone 50 mg Tablet 50 mg PO BEDTIME PRN (Reason: Insomnia) Qty: 0 0RF olanzapine 2.5 mg Tablet 2.5 mg PO BID Qty: 0 0RF levothyroxine 75 mcg Tablet 75 mcg PO DAILY@0600 Qty: 0 0RF lorazepam 0.5 mg Tablet 0.5 mg PO BID PRN (Reason: Anxiety) Qty: 60 0RF omeprazole 20 mg Capsule,Delayed Release(Dr/Ec) 20 mg PO DAILY@0630 Qty: 0 0RF furosemide 20 mg Tablet 20 mg PO DAILY PRN (Reason: Weight gain of 2 pounds overnight or 5 pounds in one week.) Qty: 0 0RF Protocol: Hold for SBP< HOLD for SBP < : 90 timolol maleate 0.5 % Drops 1 drp ophthalmic (eye) BID Qty: 0 0RF fluticasone propionate 50 mcg/actuation [place],Suspension 2 spray intranasal DAILY Qty: 0 0RF divalproex 125 mg Capsule, Delayed Rel Sprinkle 250 mg PO BID Qty: 0 0RF cholecalciferol (vitamin D3) 25 mcg (1,000 unit) Tablet 50 mcg PO DAILY Qty: 0 0RF Discontinued timolol maleate 0.5 % drops 1 drp ophthalmic (eye) DAILY Rx Instructions: Both eyes fluticasone propionate 50 mcg/actuation spray,suspension 2 spray intranasal DAILY Rx Instructions: Administer in each nostril cholecalciferol (vitamin D3) [Vitamin D3] 50 mcg (2,000 unit) Tablet 50 mcg PO DAILY acetaminophen 325 mg Tablet 975 mg PO TID PRN (Reason: pain scale 1-10) Qty: 0 0RF atorvastatin 20 mg Tablet 20 mg PO DAILY Qty: 0 0RF donepezil 5 mg Tablet 5 mg PO BEDTIME Qty: 0 0RF trazodone 50 mg Tablet 50 mg PO BEDTIME PRN (Reason: sleep) Qty: 0 0RF trazodone 50 mg Tablet 50 mg PO BEDTIME Qty: 0 0RF olanzapine 5 mg Tablet 5 mg PO Q6H PRN (Reason: agitation) Qty: 0 0RF olanzapine 2.5 mg Tablet 2.5 mg PO BID Qty: 0 0RF levothyroxine 75 mcg Tablet 75 mcg PO DAILY@0600 Qty: 0 0RF lorazepam 0.5 mg Tablet 0.5 mg PO TID PRN (Reason: Anxiety) Qty: 0 0RF oxybutynin chloride 5 mg Tablet Extended Release 24hr 15 mg PO DAILY Qty: 0 0RF omeprazole 20 mg Capsule,Delayed Release(Dr/Ec) 20 mg PO DAILY@0700 Qty: 0 0RF divalproex 125 mg Capsule, Delayed Rel Sprinkle 250 mg PO TID Qty: 0 0RF loratadine 10 mg Tablet 10 mg PO DAILY Qty: 0 0RF aspirin 81 mg tablet,delayed release (DR/EC) 81 mg PO DAILY divalproex 250 mg tablet extended release 24 hr 250 mg PO BID Discharge Orders: Discharge Order (Routine); Ordered 08/19/24 Ordered By: Bee Bronson Diet: Regular diet Activity on Discharge: Use cane or walker Stand Alone Forms: Patient Portal Discharge page, Community Support Print Language: Choose Not To Answer Care Plan Goals: 1. Maintain mood 2. No SI/HI 3. No aggression towards self or others. Health Concerns: Follow up with PCP for management of HF, seizure disorder Plan of Treatment: 1. Take medications as prescribed. 2. Go to nearest ED or call 911 in event of emergency Assessment: Pt with brighter, non labile affect. No SI/HI. No combative behaviors. Sleeping and eating well. not oriented to situation, month or year at baseline.
[2024-08-19] MEDS: LORazepam 0.5 MG TABLET PO (14:22)
--- NOTE | 2024-08-19 14:31 | PC.NURSE ---
Pt with seizure acitivity before d/c. Per C.C no rapid response was called due to pt having a seizure disorder. Provider was informed who told t/w to administer Ativan. PRN Ativan 0.5 mg was administered prior to departure.
== END 2024-08-19 14:30 | disposition home or self-care (01) | DRG 57 ==
PROVIDERS: Internal Medicine; Neurological Surgery; Nurse Practitioner Family; Psychiatry & Neurology Psychiatry; Student in an Organized Health Care Education/Training Program; Admitting Provider Social Worker; Visit Provider Social Worker
DX: G30.1 Alzheimer's disease with late onset (principal); I50.22 Chronic systolic (congestive) heart failure; E87.0 Hyperosmolality and hypernatremia; N39.0 Urinary tract infection, site not specified; F02.818 Dementia in other diseases classified elsewhere, unspecified severity, with other behavioral disturbance; E78.5 Hyperlipidemia, unspecified; K21.9 Gastro-esophageal reflux disease without esophagitis; B95.2 Enterococcus as the cause of diseases classified elsewhere; G40.909 Epilepsy, unspecified, not intractable, without status epilepticus; R55 Syncope and collapse; H40.9 Unspecified glaucoma; I11.0 Hypertensive heart disease with heart failure; E03.9 Hypothyroidism, unspecified; Z20.822 Contact with and (suspected) exposure to COVID-19; Z79.890 Hormone replacement therapy; Z79.899 Other long term (current) drug therapy
CPT/HCPCS: 0241U; 36415; 70450; 71045; 71046; 80048; 80053; 80164; 81001; 82140; 82947; 83036; 83880; 84443; 84484; 85025; 85027; 87086; 87088; 87186; 93005; 93880; 94640; 95816

== ENCOUNTER 2024-06-04 11:38 | Outpatient (BNV) | payer OTHER, MEDICAID, SELFPAY | END 2024-07-23 12:15 | PROVIDERS: Admitting Provider Social Worker; Visit Provider Radiology Diagnostic Radiology | DX: R06.02 Shortness of breath (principal) | CPT/HCPCS: 71045 ==

== ENCOUNTER 2024-06-04 11:38 | Outpatient (BNV) | payer OTHER, MEDICAID, SELFPAY | END 2024-07-21 16:26 | PROVIDERS: Admitting Provider Social Worker; Visit Provider Radiology Diagnostic Radiology | DX: R55 Syncope and collapse (principal) | CPT/HCPCS: 93880 ==

== ENCOUNTER → 2024-06-04 11:38 | Outpatient (BNV) | payer MEDICARE, MEDICAID, SELFPAY | PROVIDERS: Admitting Provider Social Worker; Visit Provider Student in an Organized Health Care Education/Training Program | DX: R41.82 Altered mental status, unspecified (principal) | CPT/HCPCS: 99221; 99499 ==

== ENCOUNTER → 2024-06-04 11:38 | Outpatient (BNV) | payer OTHER, MEDICAID, SELFPAY | PROVIDERS: Admitting Provider Social Worker; Visit Provider Social Worker | DX: G30.9 Alzheimer's disease, unspecified (principal); F02.80 Dementia in other diseases classified elsewhere, unspecified severity, without behavioral disturbance, psychotic disturbance, mood disturbance, and anxiety | CPT/HCPCS: 90792; 99231 ==